=== PATIENT | female | born 1935 | race Two or more races ===

== ENCOUNTER 2017-01-07 07:17 | Observation (INO) | payer MEDICARE, OTHER ==
[2017-01-07 07:41] LABS: Glucose,Whole Blood 94 mg/dL (75-99)
--- NOTE | 2017-01-07 07:47 | ED ---
General Adult HPI - General Chief complaint: Nausea/Vomiting/Diarrhea Stated complaint: Nausea/vomiting Time Seen by Provider: 01/07/17 07:25 Source: patient, family, EMS, RN notes reviewed Mode of arrival: EMS Limitations: no limitations - History of Present Illness Initial comments: This is an 81-year-old female presents emergency Department complaining that she can't swallow for the last 2 days per patient also believes her sugar was low this morning. Patient states it was 69 and she was very sweaty when it was 69. Patient states he never gets under 130. Patient states she ate a banana but because she can't swallow anything and eventually came back up. Patient states she's had this problem in the past but for the last 2 days she cannot eat any food without it coming back up. Patient denies any chest pain or palpitations per patient denies any shortness of breath or difficulty breathing. Patient denies any abdominal pain patient denies any diarrhea. Patient denies any recent fever chills or cough. Patient states she is unable to swallow her saliva. Patient states the pills up and eventually she throws it up - Related Data Home Medications Medication Instructions Recorded Confirmed Benazepril HCl 20 mg PO BID 11/05/13 02/18/16 Clopidogrel Bisulfate [Plavix] 75 mg PO DAILY 11/05/13 02/18/16 Metoprolol Tartrate [Lopressor] 25 mg PO BID 11/05/13 02/18/16 glyBURIDE [Diabeta] 10 mg PO BID-W/MEALS 11/05/13 02/18/16 Levothyroxine Sodium [Synthroid] 100 mcg PO DAILY 11/28/14 02/18/16 Cholecalciferol [Vitamin D3] 2,000 unit PO DAILY 02/05/15 02/18/16 Omeprazole [PriLOSEC] 20 mg PO DAILY 09/06/15 02/18/16 Atorvastatin Calcium [Lipitor] 40 mg PO HS 02/18/16 02/18/16 Cranberry Fruit Extract [Cranberry] 500 mg PO DAILY 02/18/16 02/18/16 Latanoprost [Xalatan 0.005%] 1 drop BOTH EYES HS 02/18/16 02/18/16 Pioglitazone HCl [Actos] 15 mg PO DAILY 02/18/16 02/18/16 amLODIPine BESYLATE [Norvasc] 5 mg PO BID 02/18/16 02/18/16 Previous Rx's Medication Instructions Recorded Prazosin [Minipress] 1 mg PO BID #60 capsule 02/20/16 metFORMIN HCL 1,000 mg PO BID #60 tab 02/20/16 Allergies Allergy/AdvReac Type Severity Reaction Status Date / Time aspirin Allergy Rash/Hives Verified 01/07/17 07:26 Iodinated Contrast Media - Allergy Rash/Hives Verified 01/07/17 07:26 Oral and [Iodinated Contrast Media - IV Dye] Iodine and Iodide Containing Allergy Rash/Hives Verified 01/07/17 07:26 Produc shellfish derived [Shellfish] Allergy Rash/Hives Verified 01/07/17 07:26 Review of Systems ROS Statement: Those systems with pertinent positive or pertinent negative responses have been documented in the HPI. ROS Other: All systems not noted in ROS Statement are negative. Past Medical History Past Medical History: Coronary Artery Disease (CAD), Chest Pain / Angina, CVA/ TIA, Diabetes Mellitus, Hyperlipidemia, Hypertension, Thyroid Disorder Additional Past Medical History / Comment(s): Earlier today her R arm felt numb but is no longer. 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 History of Any Multi-Drug Resistant Organisms: None Reported Past Surgical History: Bladder Surgery, Cholecystectomy, Coronary Bypass/CABG, Heart Catheterization, Hysterectomy Additional Past Surgical History / Comment(s): CABG-2007, Ccath 2007, multiple EGDs with biopsies-last one done 12/2014, COLONOSCOPY. BILAT CATRACTS REMOVED, open cholecystectomy, D&C, bladder suspension Past Anesthesia/Blood Transfusion Reactions: Motion Sickness, Postoperative Nausea & Vomiting (PONV) Past Psychological History: No Psychological Hx Reported Smoking Status: Never smoker Past Alcohol Use History: None Reported Past Drug Use History: None Reported - Past Family History Father Family Medical History: Unable to Obtain Mother Family Medical History: Unable to Obtain Daughter(s) Family Medical History: Cancer General Exam - General Exam Comments Initial Comments: GENERAL: Patient is well-developed and well-nourished. Patient is nontoxic and well- hydrated and is in no acute distress. ENT: Neck is soft and supple. No significant lymphadenopathy is noted. Oropharynx is clear. Moist mucous membranes. Neck has full range of motion without eliciting any pain. EYES: The sclera were anicteric and conjunctiva were pink and moist. Extraocular movements were intact and pupils were equal round and reactive to light. Eyelids were unremarkable. PULMONARY: Unlabored respirations. Good breath sounds bilaterally. No audible rales rhonchi or wheezing was noted. CARDIOVASCULAR: There is a regular rate and rhythm without any murmurs gallops or rubs. ABDOMEN: Soft and nontender with normal bowel sounds. No palpable organomegaly was noted. There is no palpable pulsatile mass. SKIN: Skin is clear with no lesions or rashes and otherwise unremarkable. NEUROLOGIC: Patient is alert and oriented x3. Cranial nerves II through XII are grossly intact. Motor and sensory are also intact. Normal speech, volume and content. Symmetrical smile. MUSCULOSKELETAL: Normal extremities with adequate strength and full range of motion. LYMPHATICS: No significant lymphadenopathy is noted PSYCHIATRIC: Normal psychiatric evaluation. Normal interpersonal interactions appears functionally intact in deals appropriately with others. No signs of depression. Limitations: no limitations Course Vital Signs 01/07/17 01/07/17 01/07/17 07:24 08:00 08:55 Temperature 98.0 F Pulse Rate 72 77 64 Respiratory 20 20 18 Rate Blood Pressure 201/77 175/72 179/77 O2 Sat by Pulse 96 97 99 Oximetry Medical Decision Making - Medical Decision Making EKG shows sinus rhythm at 76 bpm [place] interval is 164 QRS is 102 QT interval 412 QTC is 463. Patient has inverted T waves in leads 1 and aVL which were not seen on previous EKG. I spoke with Dr. Miramontes and he agreed to do an endoscopy and the patient but would take also admitted the patient I spoke Dr. Sadler he accepted the patient. - Lab Data Result diagrams: 01/07/17 07:30 01/07/17 07:30 Lab Results 01/07/17 01/07/17 01/07/17 Range/Units 07:30 07:30 07:30 WBC 6.5 (3.8-10.6) k/uL RBC 3.57 L (3.80-5.40) m/uL Hgb 10.8 L (11.4-16.0) gm/dL Hct 31.1 L (34.0-46.0) % MCV 87.2 (80.0-100.0) fL MCH 30.4 (25.0-35.0) pg MCHC 34.8 (31.0-37.0) g/dL RDW 14.0 (11.5-15.5) % Plt Count 195 (150-450) k/uL Neutrophils % 80 % Lymphocytes % 12 % Monocytes % 5 % Eosinophils % 1 % Basophils % 0 % Neutrophils # 5.2 (1.3-7.7) k/uL Lymphocytes # 0.8 L (1.0-4.8) k/uL Monocytes # 0.3 (0-1.0) k/uL Eosinophils # 0.1 (0-0.7) k/uL Basophils # 0.0 (0-0.2) k/uL PT (9.0-12.0) sec INR (<1.1) APTT (22.0-30.0) sec Sodium (137-145) mmol/L Potassium (3.5-5.1) mmol/L Chloride (98-107) mmol/L Carbon Dioxide (22-30) mmol/L Anion Gap mmol/L BUN (7-17) mg/dL Creatinine (0.52-1.04) mg/dL Est GFR (MDRD) Af Amer (>60 ml/min/1.73 sqM) Est GFR (MDRD) Non-Af (>60 ml/min/1.73 sqM) Glucose (74-99) mg/dL POC Glucose (mg/dL) 94 (75-99) mg/dL POC Glu Resist Coater Developer ID Ward Diallo Calcium (8.4-10.2) mg/dL Magnesium (1.6-2.3) mg/dL Total Bilirubin (0.2-1.3) mg/dL AST (14-36) U/L ALT (9-52) U/L Alkaline Phosphatase (38-126) U/L Total Creatine Kinase 195 H (30-135) U/L CK-MB (CK-2) 3.6 H* (0.0-2.4) ng/mL CK-MB (CK-2) Rel Index 1.8 Troponin I <0.012 (0.000-0.034) ng/mL Total Protein (6.3-8.2) g/dL Albumin (3.5-5.0) g/dL 01/07/17 01/07/17 Range/Units 07:30 07:30 WBC (3.8-10.6) k/uL RBC (3.80-5.40) m/uL Hgb (11.4-16.0) gm/dL Hct (34.0-46.0) % MCV (80.0-100.0) fL MCH (25.0-35.0) pg MCHC (31.0-37.0) g/dL RDW (11.5-15.5) % Plt Count (150-450) k/uL Neutrophils % % Lymphocytes % % Monocytes % % Eosinophils % % Basophils % % Neutrophils # (1.3-7.7) k/uL Lymphocytes # (1.0-4.8) k/uL Monocytes # (0-1.0) k/uL Eosinophils # (0-0.7) k/uL Basophils # (0-0.2) k/uL PT 11.9 (9.0-12.0) sec INR 1.2 (<1.1) APTT 22.5 (22.0-30.0) sec Sodium 147 H (137-145) mmol/L Potassium 4.2 (3.5-5.1) mmol/L Chloride 114 H (98-107) mmol/L Carbon Dioxide 20 L (22-30) mmol/L Anion Gap 13 mmol/L BUN 28 H (7-17) mg/dL Creatinine 1.10 H (0.52-1.04) mg/dL Est GFR (MDRD) Af Amer 58 (>60 ml/min/1.73 sqM) Est GFR (MDRD) Non-Af 48 (>60 ml/min/1.73 sqM) Glucose 90 (74-99) mg/dL POC Glucose (mg/dL) (75-99) mg/dL POC Glu Resist Coater Developer ID Calcium 9.0 (8.4-10.2) mg/dL Magnesium 1.2 L (1.6-2.3) mg/dL Total Bilirubin 0.7 (0.2-1.3) mg/dL AST 28 (14-36) U/L ALT 30 (9-52) U/L Alkaline Phosphatase 75 (38-126) U/L Total Creatine Kinase (30-135) U/L CK-MB (CK-2) (0.0-2.4) ng/mL CK-MB (CK-2) Rel Index Troponin I (0.000-0.034) ng/mL Total Protein 7.0 (6.3-8.2) g/dL Albumin 4.1 (3.5-5.0) g/dL Disposition Clinical Impression: Dysphagia Disposition: ADMITTED IP TO THIS HOSP Referrals: Esvin Ramirez DO [Primary Care Provider] - 1-2 days Time of Disposition: 09:53
[2017-01-07 08:07] LABS: Basophils % (A) 0 %; CH 29.6; CHCM 34.1; Eosinophils # (A) 0.1 k/uL (0-0.7); Eosinophils % (A) 1 %; HCT 31.1 % (34.0-46.0); HDW 2.81; HGB 10.8 gm/dL (11.4-16.0); Luc # (Auto) 0.11; Luc % (Auto) 2; Lymphocytes # (A) 0.8 k/uL (1.0-4.8); Lymphocytes % (A) 12 %; MCH 30.4 pg (25.0-35.0); MCHC 34.8 g/dL (31.0-37.0); MCV 87.2 fL (80.0-100.0); Monocytes # (A) 0.3 k/uL (0-1.0); Monocytes % (A) 5 %; Neutrophils # (A) 5.2 k/uL (1.3-7.7); Neutrophils % (A) 80 %; RBC 3.57 m/uL (3.80-5.40); WBC 6.5 k/uL (3.8-10.6); WBC (Perox) 6.15
[2017-01-07] MEDS ORDERED: SODIUM CHLORIDE 0.9% 500 ML IV ONE (08:08)
[2017-01-07 08:14] LABS: INR 1.2 (<1.1); Partial Thromboplastin Time 22.5 sec (22.0-30.0); Prothrombin Time 11.9 sec (9.0-12.0)
--- NOTE | 2017-01-07 08:21 | XR ---
EXAMINATION TYPE: XR chest 2V DATE OF EXAM: 01/07/2017 COMPARISON: NONE INDICATION: Chest pain TECHNIQUE: Frontal and lateral views of the chest are obtained. FINDINGS: The heart size is normal. The pulmonary vasculature is normal. The lungs are clear. Sternotomy wires are present from previous CABG. IMPRESSION: 1. No acute pulmonary process.
[2017-01-07 08:37] LABS: Creatine Kinase 195 U/L (30-135)
[2017-01-07 08:39] LABS: Magnesium 1.2 mg/dL (1.6-2.3); Potassium 4.2 mmol/L (3.5-5.1); Total Bilirubin 0.7 mg/dL (0.2-1.3)
[2017-01-07 08:49] LABS: Troponin I <0.012 ng/mL (0.000-0.034)
[2017-01-07 08:59] LABS: Creatine Kinase MB 3.6 ng/mL (0.0-2.4)
[2017-01-07] MEDS ORDERED: SODIUM CHLORIDE 0.9% 1,000 ML IV ONE (09:53)
[2017-01-07] MEDS ORDERED: ETOMIDATE 2 MG/ML 10 ML VIAL ONE (10:26)
[2017-01-07] MEDS ORDERED: LIDOCAINE 1% INJ 10MG/ML (20 ML MDV) ONE (10:26)
[2017-01-07] MEDS ORDERED: IV FLUID CONTINUATION 900 ML IV ONE (11:26)
--- NOTE | 2017-01-07 11:53 | P.CONS ---
History of Present Illness - Reason for Consult Consult date: 01/07/17 - History of Present Illness The patient is an 81-year-old female presents emergency Department complaining that she can't swallow for the last 2 days per patient also believes her sugar was low this morning. Patient states it was 69 and she was very sweaty when it was 69. Patient states he never gets under 130. Patient states she ate a banana but because she can't swallow anything and eventually came back up. Patient states she's had this problem in the past but for the last 2 days she cannot eat any food without it coming back up. Patient denies any chest pain or palpitations per patient denies any shortness of breath or difficulty breathing. Patient denies any abdominal pain patient denies any diarrhea. Patient denies any recent fever chills or cough. Patient states she is unable to swallow her saliva. Patient states the pills up and eventually she throws it up Past Medical History Past Medical History: Coronary Artery Disease (CAD), Chest Pain / Angina, CVA/ TIA, Diabetes Mellitus, Hyperlipidemia, Hypertension, Thyroid Disorder Additional Past Medical History / Comment(s): Earlier today her R arm felt numb but is no longer. 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 History of Any Multi-Drug Resistant Organisms: None Reported Past Surgical History: Bladder Surgery, Cholecystectomy, Coronary Bypass/CABG, Heart Catheterization, Hysterectomy Additional Past Surgical History / Comment(s): CABG-2007, Ccath 2007, multiple EGDs with biopsies-last one done 12/2014, COLONOSCOPY. BILAT CATRACTS REMOVED, open cholecystectomy, D&C, bladder suspension Past Anesthesia/Blood Transfusion Reactions: Motion Sickness, Postoperative Nausea & Vomiting (PONV) Past Psychological History: No Psychological Hx Reported Smoking Status: Never smoker Past Alcohol Use History: None Reported Past Drug Use History: None Reported - Past Family History Father Family Medical History: Unable to Obtain Mother Family Medical History: Unable to Obtain Daughter(s) Family Medical History: Cancer Medications and Allergies Home Medications Medication Instructions Recorded Confirmed Type Benazepril HCl 20 mg PO DAILY 11/05/13 01/07/17 History Clopidogrel Bisulfate [Plavix] 75 mg PO DAILY 11/05/13 01/07/17 History glyBURIDE [Diabeta] 5 mg PO DAILY 11/05/13 01/07/17 History Cholecalciferol [Vitamin D3] 2,000 unit PO DAILY 02/05/15 01/07/17 History Omeprazole [PriLOSEC] 20 mg PO DAILY 09/06/15 01/07/17 History Atorvastatin Calcium [Lipitor] 40 mg PO HS 02/18/16 01/07/17 History Cranberry Fruit Extract [Cranberry] 500 mg PO DAILY 02/18/16 01/07/17 History Latanoprost [Xalatan 0.005%] 1 drop BOTH EYES HS 02/18/16 01/07/17 History amLODIPine BESYLATE [Norvasc] 5 mg PO BID 02/18/16 01/07/17 History HYDROcodone/APAP 5-325MG [[place] 1 tab PO Q6HR PRN 01/07/17 01/07/17 History 5-325] Levothyroxine Sodium [Synthroid] 50 mcg PO DAILY 01/07/17 01/07/17 History Loratadine [Claritin] 10 mg PO DAILY 01/07/17 01/07/17 History Meclizine HCl 12.5 mg PO Q8H PRN 01/07/17 01/07/17 History Allergies Allergy/AdvReac Type Severity Reaction Status Date / Time aspirin Allergy Rash/Hives Verified 01/07/17 10:22 Iodinated Contrast Media - Allergy Rash/Hives Verified 01/07/17 10:22 Oral and [Iodinated Contrast Media - IV Dye] Iodine and Iodide Containing Allergy Rash/Hives Verified 01/07/17 10:22 Produc shellfish derived [Shellfish] Allergy Rash/Hives Verified 01/07/17 10:22 Physical Exam Vitals: Vital Signs Temp Pulse Resp BP Pulse Ox 01/07/17 10:00 98.1 F 66 18 162/69 99 01/07/17 08:55 64 18 179/77 99 01/07/17 08:00 77 20 175/72 97 01/07/17 07:24 98.0 F 72 20 201/77 96 Intake and Output 01/06/17 01/07/17 01/07/17 22:59 06:59 14:59 Other: Weight 70.307 kg Patient Weight 01/08/17 06:59 Weight 70.307 kg Results CBC & Chem 7: 01/07/17 07:30 01/07/17 07:30 Labs: Abnormal Lab Results - Last 24 Hours (Table) 01/07/17 01/07/17 01/07/17 Range/Units 07:30 07:30 07:30 RBC 3.57 L (3.80-5.40) m/uL Hgb 10.8 L (11.4-16.0) gm/dL Hct 31.1 L (34.0-46.0) % Lymphocytes # 0.8 L (1.0-4.8) k/uL Sodium 147 H (137-145) mmol/L Chloride 114 H (98-107) mmol/L Carbon Dioxide 20 L (22-30) mmol/L BUN 28 H (7-17) mg/dL Creatinine 1.10 H (0.52-1.04) mg/dL Magnesium 1.2 L (1.6-2.3) mg/dL Total Creatine Kinase 195 H (30-135) U/L CK-MB (CK-2) 3.6 H* (0.0-2.4) ng/mL Assessment and Plan Plan: Obstructive dysphagia likely on the basis of impacted food. Will proceed with EGD for foreign body removal today.
--- NOTE | 2017-01-07 12:07 | P.PCN ---
Date of Procedure: 01/07/17 Preoperative Diagnosis: Postoperative Diagnosis: Procedure(s) Performed: Procedure: Esophagogastroduodenoscopy and removal of esophageal foreign body. Preoperative diagnosis: Obstructive dysphagia. Postoperative diagnosis: 1. Impacted piece of meat in the distal esophagus captured with the snare before spontaneously advancing into the stomach. 2. Ivett esophagitis. 3. Hiatal hernia and benign esophageal stricture not restricting the advancement of the endoscope. 4. Normal stomach and duodenum. Preparation and sedation: Was provided by anesthesia. Brief clinical history: The patient is an 81-year-old female who presented this morning to the emergency Department complaining that she can't swallow for the last 2 days. Patient states she ate a banana but because she can't swallow anything and eventually came back up. Patient states she's had this problem in the past but for the last 2 days she cannot eat any food without it coming back up. Patient denies any chest pain or palpitations per patient denies any shortness of breath or difficulty breathing. Patient denies any recent fever chills or cough. Patient states she is unable to swallow her saliva which builds up and eventually she throws it up. The details are summarized in the history and physical and dictated consultation. This procedure is intended to assess for a cause of her obstruction. Procedure: With the patient on her left lateral decubitus position and after informed consent and adequate sedation, I passed the Olympus-GIF 160 video upper endoscope through the cricopharyngeus down the esophagus. There were secretions and food debris in the esophagus which were suctioned then the impacted piece of meat was seen in the distal esophagus. There was small white sticky exudates scattered on the esophageal wall consistent with Ivett esophagitis. I used the snare to capture the impacted piece of meat and mobilize it and I tried to remove it by withdrawing the endoscope, however, in the process it broke off and it eventually dropped into the stomach by gentle advancement of the endoscope. GE junction was around 35 cm from the incisors and there was a 2-3 cm hiatal hernia. There was a benign-appearing esophageal stricture at the level of the GE junction that did not impede the advancement of the endoscope. The stomach was insufflated with air and inspected in detail including the retroflex view in the cardia. Finally, the endoscope was passed through the pylorus into the duodenum. Pyloric channel, duodenal bulb, post bulbar area and descending duodenum appeared within normal limits. No biopsies were obtained and I did not perform any dilation as this procedure was done on an emergent basis and the patient has been on Plavix which has not been discontinued. The patient tolerated the procedure well. Plan: The patient was reassured and I discussed with her in detail. Will allow regular diet today and she can be followed up as outpatient for consideration of elective upper endoscopy and dilation in the future, if she has symptoms, after stopping the Plavix for 5 days. Implants: Indications for Procedure: Operative Findings: Description of Procedure:
[2017-01-07] MEDS ORDERED: HYDROcodone/APAP 5-325MG 1 EACH TAB PO PRN (12:22)
[2017-01-07] MEDS ORDERED: MECLIZINE 12.5 MG TAB PO PRN (12:22)
[2017-01-07 12:27] LABS: Glucose,Whole Blood 72 mg/dL (75-99)
[2017-01-07] MEDS ORDERED: NON-FORMULARY DRUG (Cranberry Fruit Extract [Cranberry] 500 MG) PO SCH (12:30)
[2017-01-07] MEDS: LORATADINE 10 MG TAB PO SCH (13:37)
[2017-01-07] MEDS: CHOLECALCIFEROL 1,000 UNIT TAB PO SCH (13:37)
[2017-01-07] MEDS: PANTOPRAZOLE 40 MG TABLET PO SCH (13:37)
[2017-01-07] MEDS: glipiZIDE 10 MG TAB PO SCH (13:37)
[2017-01-07] MEDS: CLOPIDOGREL 75 MG TAB PO SCH (13:37)
[2017-01-07] MEDS: MAGNESIUM SULFATE-D5W PMX 1 GM in DEXTROSE/WATER 1 100ML.BAG IVPB SCH ×2 (13:38→14:40)
[2017-01-07] MEDS: amLODIPine 5 MG TAB PO SCH ×2 (13:38→20:26)
[2017-01-07] MEDS: LISINOPRIL 20 MG TAB PO SCH (13:38)
[2017-01-07 17:02] LABS: Glucose,Whole Blood 149 mg/dL (75-99)
[2017-01-07] MEDS: metFORMIN 500 MG TAB PO SCH (17:26)
[2017-01-07 20:54] LABS: Glucose,Whole Blood 167 mg/dL (75-99)
[2017-01-07] MEDS ORDERED: LATANOPROST 0.005% OPHTH DROPS 2.5 ML BTL BOTH EYES SCH (21:00)
[2017-01-07] MEDS ORDERED: ATORVASTATIN 40 MG TAB PO SCH (21:00)
[2017-01-07] MEDS ORDERED: ACETAMINOPHEN TAB 325 MG TAB PO PRN (22:25)
[2017-01-08] MEDS ORDERED: LEVOTHYROXINE 50 MCG TAB PO SCH (06:30)
[2017-01-08 07:09] LABS: Glucose,Whole Blood 148 mg/dL (75-99)
[2017-01-08 07:37] VITALS: RESP 16
[2017-01-08] MEDS: metFORMIN 500 MG TAB PO SCH (08:07)
[2017-01-08] MEDS: glipiZIDE 10 MG TAB PO SCH (08:08)
[2017-01-08] MEDS: PANTOPRAZOLE 40 MG TABLET PO SCH (08:08)
[2017-01-08] MEDS: LORATADINE 10 MG TAB PO SCH (08:08)
[2017-01-08] MEDS: amLODIPine 5 MG TAB PO SCH (08:08)
[2017-01-08] MEDS: CLOPIDOGREL 75 MG TAB PO SCH (08:08)
[2017-01-08] MEDS: LISINOPRIL 20 MG TAB PO SCH (08:08)
[2017-01-08] MEDS: CHOLECALCIFEROL 1,000 UNIT TAB PO SCH (08:08)
[2017-01-08 11:34] VITALS: BP 122/58; PULSE 58; TEMP 98.2
[2017-01-08 11:57] LABS: Glucose,Whole Blood 199 mg/dL (75-99)
--- NOTE | 2017-01-08 14:46 | P.HPIM ---
History of Present Illness The patient is an 81-year-old female presents emergency Department complaining that she can't swallow for the last 2 days per patient also believes her sugar was low this morning. Patient states it was 69 and she was very sweaty when it was 69. Patient states he never gets under 130. Patient states she ate a banana but because she can't swallow anything and eventually came back up. Patient states she's had this problem in the past but for the last 2 days she cannot eat any food without it coming back up. Patient denies any chest pain or palpitations per patient denies any shortness of breath or difficulty breathing. Patient denies any abdominal pain patient denies any diarrhea. Patient denies any recent fever chills or cough. Patient states she is unable to swallow her saliva. Patient states the pills up and eventually she throws it up Patient underwent upper GI endoscopy found to have a piece of meat stuck in his esophagus which was removed, patient had a hiatal hernia with esophagitis and candidal esophagitis and patient will be discharged on the week of flucanazole. Review of Systems REVIEW OF SYSTEMS: CONSTITUTIONAL: No fever, no malaise, no fatigue. HEENT: No recent visual problems or hearing problems. Denied any sore throat. CARDIOVASCULAR: No chest pain, orthopnea, PND, no palpitations, no syncope. PULMONARY: No shortness of breath, no cough, no hemoptysis. GASTROINTESTINAL: No diarrhea, no abdominal pain. Normoactive bowel sounds. NEUROLOGICAL: No headaches, no weakness, no numbness. HEMATOLOGICAL: Denies any bleeding or petechiae. GENITOURINARY: Denies any burning micturition, frequency, or urgency. MUSCULOSKELETAL/RHEUMATOLOGICAL: Denies any joint pain, swelling, or any muscle pain. ENDOCRINE: Denies any polyuria or polydipsia. The rest of the 14-point review of systems is negative. Past Medical History Past Medical History: Coronary Artery Disease (CAD), Chest Pain / Angina, CVA/ TIA, Diabetes Mellitus, Hyperlipidemia, Hypertension, Thyroid Disorder Additional Past Medical History / Comment(s): Earlier today her R arm felt numb but is no longer. 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 History of Any Multi-Drug Resistant Organisms: None Reported Past Surgical History: Bladder Surgery, Cholecystectomy, Coronary Bypass/CABG, Heart Catheterization, Hysterectomy Additional Past Surgical History / Comment(s): CABG-2007, Ccath 2007, multiple EGDs with biopsies-last one done 12/2014, COLONOSCOPY. BILAT CATRACTS REMOVED, open cholecystectomy, D&C, bladder suspension Past Anesthesia/Blood Transfusion Reactions: Motion Sickness, Postoperative Nausea & Vomiting (PONV) Past Psychological History: No Psychological Hx Reported Smoking Status: Never smoker Past Alcohol Use History: None Reported Past Drug Use History: None Reported - Past Family History Father Family Medical History: Unable to Obtain Mother Family Medical History: Unable to Obtain Daughter(s) Family Medical History: Cancer Medications and Allergies Home Medications Medication Instructions Recorded Confirmed Type Benazepril HCl 20 mg PO DAILY 11/05/13 01/07/17 History Clopidogrel Bisulfate [Plavix] 75 mg PO DAILY 11/05/13 01/07/17 History glyBURIDE [Diabeta] 5 mg PO DAILY 11/05/13 01/07/17 History Cholecalciferol [Vitamin D3] 2,000 unit PO DAILY 02/05/15 01/07/17 History Omeprazole [PriLOSEC] 40 mg PO DAILY 09/06/15 01/08/17 History Atorvastatin Calcium [Lipitor] 40 mg PO HS 02/18/16 01/07/17 History Cranberry Fruit Extract [Cranberry] 500 mg PO DAILY 02/18/16 01/07/17 History Latanoprost [Xalatan 0.005%] 1 drop BOTH EYES HS 02/18/16 01/07/17 History amLODIPine BESYLATE [Norvasc] 5 mg PO BID 02/18/16 01/07/17 History HYDROcodone/APAP 5-325MG [[place] 1 tab PO Q6HR PRN 01/07/17 01/07/17 History 5-325] Levothyroxine Sodium [Synthroid] 50 mcg PO DAILY 01/07/17 01/07/17 History Loratadine [Claritin] 10 mg PO DAILY 01/07/17 01/07/17 History Meclizine HCl 12.5 mg PO Q8H PRN 01/07/17 01/07/17 History Allergies Allergy/AdvReac Type Severity Reaction Status Date / Time aspirin Allergy Rash/Hives Verified 01/07/17 10:22 Iodinated Contrast Media - Allergy Rash/Hives Verified 01/07/17 10:22 Oral and [Iodinated Contrast Media - IV Dye] Iodine and Iodide Containing Allergy Rash/Hives Verified 01/07/17 10:22 Produc shellfish derived [Shellfish] Allergy Rash/Hives Verified 01/07/17 10:22 Physical Exam Vitals: Vital Signs Temp Pulse Resp BP Pulse Ox 01/08/17 11:33 98.2 F 58 L 16 122/58 97 01/08/17 08:00 16 01/08/17 07:36 98 F 66 16 178/77 100 01/08/17 04:00 18 01/08/17 03:52 97.8 F 59 L 18 162/67 97 01/08/17 00:00 16 01/07/17 20:00 98.0 F 71 16 160/70 97 01/07/17 16:00 16 Intake and Output 01/07/17 01/08/17 01/08/17 22:59 06:59 14:59 Intake Total 236 Balance 236 Intake: Oral 236 Other: # Voids 1 PHYSICAL EXAMINATION: GENERAL: The patient is alert and oriented x3, not in any acute distress. Well developed, well nourished. HEENT: Pupils are round and equally reacting to light. EOMI. No scleral icterus. No conjunctival pallor. Normocephalic, atraumatic. No pharyngeal erythema. No thyromegaly. CARDIOVASCULAR: S1 and S2 present. No murmurs, rubs, or gallops. PULMONARY: Chest is clear to auscultation, no wheezing or crackles. ABDOMEN: Soft, nontender, nondistended, normoactive bowel sounds. No palpable organomegaly. MUSCULOSKELETAL: No joint swelling or deformity. EXTREMITIES: No cyanosis, clubbing, or pedal edema. NEUROLOGICAL: Gross neurological examination did not reveal any focal deficits. SKIN: No rashes. Results CBC & Chem 7: 01/07/17 07:30 01/07/17 07:30 Labs: Abnormal Lab Results - Last 24 Hours (Table) 01/07/17 01/07/1701/08/17 Range/Units 17:00 20:51 06:51 POC Glucose (mg/dL) 149 H 167 H 148 H (75-99) mg/dL 01/08/17 Range/Units 11:54 POC Glucose (mg/dL) 199 H (75-99) mg/dL Thrombosis Risk Factor Assmnt - Choose All That Apply Each Risk Factor Represents 3 Points: Age 75 years or older Thrombosis Risk Factor Assessment Total Risk Factor Score: 3 Thrombosis Risk Factor Assessment Level: Moderate Risk Assessment and Plan Plan: #1 dysphagia: Due to retained food as mentioned above, which resolved after upper GI endoscopy patient also has candidal esophagitis and hiatal hernia. #2 type 2 diabetes mellitus: Continue with home medications for the titration of oral hypertensive medications as an outpatient #3 coronary artery disease #4 Gastro-esophageal reflux disease #5 hypertension For above-mentioned other chronic medical problems patient will be continued on her home medications and patient Jonathan today.
--- NOTE | 2017-01-08 14:47 | P.DS ---
Providers Date of admission: 01/07/17 09:53 Attending physician: Uche Sadler Consults: 01/07/17 09:53 Consult Physician Stat Consulting Provider: Jevon Zavaleta Reason/Comments: Dysphagia Do you want consulting provider notified?: Already Contacted Primary care physician: [facility] Course: Refer to HPI Plan - Discharge Summary New Discharge Prescriptions: New Fluconazole [Diflucan] 100 mg PO DAILY #7 tab No Action Benazepril HCl 20 mg PO DAILY Clopidogrel Bisulfate [Plavix] 75 mg PO DAILY glyBURIDE [Diabeta] 5 mg PO DAILY Cholecalciferol [Vitamin D3] 2,000 unit PO DAILY Omeprazole [PriLOSEC] 40 mg PO DAILY Latanoprost [Xalatan 0.005%] 1 drop BOTH EYES HS amLODIPine BESYLATE [Norvasc] 5 mg PO BID Atorvastatin Calcium [Lipitor] 40 mg PO HS Cranberry Fruit Extract [Cranberry] 500 mg PO DAILY metFORMIN HCL 1,000 mg PO BID #60 tab Loratadine [Claritin] 10 mg PO DAILY Levothyroxine Sodium [Synthroid] 50 mcg PO DAILY Meclizine HCl 12.5 mg PO Q8H PRN PRN Reason: Vertigo HYDROcodone/APAP 5-325MG [[place] 5-325] 1 tab PO Q6HR PRN PRN Reason: Pain Discharge Medication List Benazepril HCl 20 mg PO DAILY 11/05/13 [History] Clopidogrel Bisulfate [Plavix] 75 mg PO DAILY 11/05/13 [History] glyBURIDE [Diabeta] 5 mg PO DAILY 11/05/13 [History] Cholecalciferol [Vitamin D3] 2,000 unit PO DAILY 02/05/15 [History] Omeprazole [PriLOSEC] 40 mg PO DAILY 09/06/15 [History] Atorvastatin Calcium [Lipitor] 40 mg PO HS 02/18/16 [History] Cranberry Fruit Extract [Cranberry] 500 mg PO DAILY 02/18/16 [History] Latanoprost [Xalatan 0.005%] 1 drop BOTH EYES HS 02/18/16 [History] amLODIPine BESYLATE [Norvasc] 5 mg PO BID 02/18/16 [History] metFORMIN HCL 1,000 mg PO BID #60 tab 02/20/16 [Rx] HYDROcodone/APAP 5-325MG [[place] 5-325] 1 tab PO Q6HR PRN 01/07/17 [History] Levothyroxine Sodium [Synthroid] 50 mcg PO DAILY 01/07/17 [History] Loratadine [Claritin] 10 mg PO DAILY 01/07/17 [History] Meclizine HCl 12.5 mg PO Q8H PRN 01/07/17 [History] Fluconazole [Diflucan] 100 mg PO DAILY #7 tab 01/08/17 [Rx] Follow up Appointment(s)/Referral(s): Jevon Zavaleta MD [STAFF PHYSICIAN] - 1 Week Esvin Ramirez DO [Primary Care Provider] - 3 Days Patient Instructions/Handouts: Esophageal Foreign Body (GEN), Chronic Dysphagia (DC) Discharge Disposition: HOME SELF-CARE
== END 2017-01-08 13:41 | disposition home or self-care (01) ==
LOC: EC 07:17 → 3OBS 09:53
PROVIDERS: ADMIT Internal Medicine; ATTEND Internal Medicine
DX: T18.128A Food in esophagus causing other injury, initial encounter (principal); Z79.899 Other long term (current) drug therapy; Z79.01 Long term (current) use of anticoagulants; Z79.84 Long term (current) use of oral hypoglycemic drugs; Z88.6 Allergy status to analgesic agent; Z88.3 Allergy status to other anti-infective agents; Z91.041 Radiographic dye allergy status; Z91.013 Allergy to seafood; I25.10 Atherosclerotic heart disease of native coronary artery without angina pectoris; E78.5 Hyperlipidemia, unspecified; I10 Essential (primary) hypertension; I69.354 Hemiplegia and hemiparesis following cerebral infarction affecting left non-dominant side; G89.4 Chronic pain syndrome; E03.9 Hypothyroidism, unspecified; Z95.1 Presence of aortocoronary bypass graft; B37.81 Candidal esophagitis; K44.9 Diaphragmatic hernia without obstruction or gangrene; K21.9 Gastro-esophageal reflux disease without esophagitis; E11.319 Type 2 diabetes mellitus with unspecified diabetic retinopathy without macular edema; E11.42 Type 2 diabetes mellitus with diabetic polyneuropathy; Z86.73 Personal history of transient ischemic attack (TIA), and cerebral infarction without residual deficits; H54.41 Blindness, right eye, normal vision left eye; K22.2 Esophageal obstruction; X58.XXXA Exposure to other specified factors, initial encounter
CPT/HCPCS: 96374; 99285; 36415; 93005; 80053; 82550; 82553; 83735; 84484; 85025; 85610; 85730; 71020; 43247; G0378 ×2; J2001; J3475

== ENCOUNTER 2017-02-06 12:42 | Observation (INO) | payer MEDICARE, OTHER ==
[2017-02-06 13:10] LABS: Glucose,Whole Blood 394 mg/dL (75-99)
[2017-02-06] MEDS ORDERED: MORPHINE SULFATE 2 MG/ML SYRINGE IVP STA (13:19)
[2017-02-06] MEDS ORDERED: SODIUM CHLORIDE 0.9% 500 ML IV STA (13:19)
[2017-02-06] MEDS ORDERED: SODIUM CHLORIDE 0.9% 1,000 ML IV STA (13:19)
[2017-02-06 13:46] LABS: Basophils % (A) 0 %; CH 29.9; CHCM 33.5; Eosinophils # (A) 0.1 k/uL (0-0.7); Eosinophils % (A) 1 %; HDW 2.63; HGB 9.7 gm/dL (11.4-16.0); Luc # (Auto) 0.07; Luc % (Auto) 1; Lymphocytes # (A) 0.7 k/uL (1.0-4.8); Lymphocytes % (A) 14 %; MCH 29.9 pg (25.0-35.0); MCHC 33.4 g/dL (31.0-37.0); MCV 89.5 fL (80.0-100.0); Mean Platelet Volume 8.3; Monocytes # (A) 0.3 k/uL (0-1.0); Monocytes % (A) 5 %; Neutrophils # (A) 3.8 k/uL (1.3-7.7); Neutrophils % (A) 78 %; RBC 3.24 m/uL (3.80-5.40); RDW 14.4 % (11.5-15.5); WBC 4.9 k/uL (3.8-10.6); WBC (Perox) 4.98
[2017-02-06 13:57] LABS: INR 1.2 (<1.2); Partial Thromboplastin Time 24.5 sec (22.0-30.0); Prothrombin Time 11.6 sec (9.0-12.0)
[2017-02-06 14:00] LABS: ALT 29 U/L (9-52); AST 19 U/L (14-36); Alkaline Phosphatase 66 U/L (38-126); Anion Gap 12 mmol/L; Blood Urea Nitrogen 22 mg/dL (7-17); Calcium 8.6 mg/dL (8.4-10.2); Carbon Dioxide 21 mmol/L (22-30); Chloride 107 mmol/L (98-107); Glucose 385 mg/dL (74-99); Magnesium 1.1 mg/dL (1.6-2.3); Non-African American GFR(MDRD) >60 (>60 ml/min/1.73 sqM); Potassium 4.7 mmol/L (3.5-5.1); Sodium 140 mmol/L (137-145); Total Bilirubin 0.3 mg/dL (0.2-1.3); Total Protein 6.3 g/dL (6.3-8.2)
--- NOTE | 2017-02-06 14:04 | ED ---
General Adult HPI - General Chief complaint: Recheck/Abnormal Lab/Rx Stated complaint: Diabetic Time Seen by Provider: 02/06/17 13:08 Source: patient, EMS Mode of arrival: EMS Limitations: no limitations - History of Present Illness Initial comments: 81 years old female has multiple complaints , graded about the high sugar her sugar was 425 today. She is also complaining about headache, blurred vision. She also had a chest pain around 11 AM today chest pain lasted for 1 hour. She denies any chest pain right now no shortness of breath no pleuritic chest pain. Denies any fever no chills no neck stiffness does have some abdominal cramps in the epigastric area. No nausea no vomiting no symptoms of TIA or CVA. - Related Data Home Medications Medication Instructions Recorded Confirmed Benazepril HCl 20 mg PO DAILY 11/05/13 02/06/17 Clopidogrel Bisulfate [Plavix] 75 mg PO DAILY 11/05/13 02/06/17 glyBURIDE [Diabeta] 5 mg PO DAILY 11/05/13 02/06/17 Cholecalciferol [Vitamin D3] 2,000 unit PO DAILY 02/05/15 02/06/17 Omeprazole [PriLOSEC] 40 mg PO DAILY 09/06/15 02/06/17 Atorvastatin Calcium [Lipitor] 40 mg PO HS 02/18/16 02/06/17 Cranberry Fruit Extract [Cranberry] 500 mg PO DAILY 02/18/16 02/06/17 Latanoprost [Xalatan 0.005%] 1 drop BOTH EYES HS 02/18/16 02/06/17 amLODIPine BESYLATE [Norvasc] 5 mg PO BID 02/18/16 02/06/17 HYDROcodone/APAP 5-325MG [[place] 1 tab PO Q6HR PRN 01/07/17 02/06/17 5-325] Levothyroxine Sodium [Synthroid] 50 mcg PO DAILY 01/07/17 02/06/17 Loratadine [Claritin] 10 mg PO DAILY 01/07/17 02/06/17 Meclizine HCl 12.5 mg PO Q8H PRN 01/07/17 02/06/17 Previous Rx's Medication Instructions Recorded Fluconazole [Diflucan] 100 mg PO DAILY #7 tab 01/08/17 Allergies Allergy/AdvReac Type Severity Reaction Status Date / Time aspirin Allergy Rash/Hives Verified 02/06/17 13:19 Iodinated Contrast- Oral and Allergy Rash/Hives Verified 02/06/17 13:19 IV Dye [Iodinated Contrast Media - IV Dye] Iodine and Iodide Containing Allergy Rash/Hives Verified 02/06/17 13:19 Produc shellfish derived [Shellfish] Allergy Rash/Hives Verified 02/06/17 13:19 Review of Systems ROS Statement: Those systems with pertinent positive or pertinent negative responses have been documented in the HPI. ROS Other: All systems not noted in ROS Statement are negative. Past Medical History Past Medical History: Coronary Artery Disease (CAD), Chest Pain / Angina, CVA/ TIA, Diabetes Mellitus, Hyperlipidemia, Hypertension, Thyroid Disorder Additional Past Medical History / Comment(s): Earlier today her R arm felt numb but is no longer. 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 History of Any Multi-Drug Resistant Organisms: None Reported Past Surgical History: Bladder Surgery, Cholecystectomy, Coronary Bypass/CABG, Heart Catheterization, Hysterectomy Additional Past Surgical History / Comment(s): CABG-2007, Ccath 2007, multiple EGDs with biopsies-last one done 12/2014, COLONOSCOPY. BILAT CATRACTS REMOVED, open cholecystectomy, D&C, bladder suspension Past Anesthesia/Blood Transfusion Reactions: Motion Sickness, Postoperative Nausea & Vomiting (PONV) Past Psychological History: No Psychological Hx Reported Smoking Status: Never smoker Past Alcohol Use History: None Reported Past Drug Use History: None Reported - Past Family History Father Family Medical History: Unable to Obtain Mother Family Medical History: Unable to Obtain Daughter(s) Family Medical History: Cancer General Exam - General Exam Comments Initial Comments: General: The patient is awake and alert, in no distress, and does not appear acutely ill. Skin: Skin is warm and dry and no rashes or lesions are noted. Eye: Pupils are equal, round and reactive to light, she kept her right eye closed Ears, nose, mouth and throat: There are moist mucous membranes and no oral lesions. Neck: The neck is supple, there is no tenderness or JVD. Cardiovascular: There is a regular rate and rhythm. No murmur, rub or gallop is appreciated. Respiratory: To auscultation bilateral, no wheezing no rhonchi no distress respiratory guerra noticed Gastrointestinal: Though she complained about abdominal pain exam is totally normal Back: There is no tenderness to palpation in the midline. There is no obvious deformity. Musculoskeletal: Normal ROM, no tenderness, There is no pedal edema. There is no calf tenderness or swelling. No cords were appreciated. Neurological: CN II-XII intact, Cranial nerves III through XII are intact. There are no obvious motor or sensory deficits. Coordination appears grossly intact. Speech is normal. Psychiatric: Cooperative, appropriate mood & affect, normal judgment. Limitations: no limitations Course Vital Signs 02/06/17 12:45 Temperature 98.2 F Pulse Rate 74 Respiratory 16 Rate Blood Pressure 153/67 O2 Sat by Pulse 97 Oximetry She was reassessed at 1500, she has no abdominal findings at all is soft nontender bowel sounds are positive no guarding no rebounds considering that and will hold off any CT of the abdomen, patient agreed Labs were reviewed, CBC, venous blood gases, comprehensive metabolic panel all within normal range with the exception of sugar being 385 and CO2 being 21 non- small metabolic acidosis EKG Findings - EKG Comments: EKG Findings:: Review of this EKG is normal sinus rhythm ventricular rate is 62 ME interval is 164 QRS duration is 100 QT/QTc is 440/446 QRS, T-wave inversion and slight ST depression in aVL no ST elevation or ST depression noticed the other leads Medical Decision Making - Lab Data Result diagrams: 02/06/17 13:01 02/06/17 13:01 Lab Results 02/06/17 02/06/17 02/06/17 Range/Units 12:55 13:01 13:01 WBC 4.9 (3.8-10.6) k/uL RBC 3.24 L (3.80-5.40) m/uL Hgb 9.7 L (11.4-16.0) gm/dL Hct 29.0 L (34.0-46.0) % MCV 89.5 (80.0-100.0) fL MCH 29.9 (25.0-35.0) pg MCHC 33.4 (31.0-37.0) g/dL RDW 14.4 (11.5-15.5) % Plt Count 187 (150-450) k/uL Neutrophils % 78 % Lymphocytes % 14 % Monocytes % 5 % Eosinophils % 1 % Basophils % 0 % Neutrophils # 3.8 (1.3-7.7) k/uL Lymphocytes # 0.7 L (1.0-4.8) k/uL Monocytes # 0.3 (0-1.0) k/uL Eosinophils # 0.1 (0-0.7) k/uL Basophils # 0.0 (0-0.2) k/uL PT (9.0-12.0) sec INR (<1.2) APTT (22.0-30.0) sec VBG pH (7.31-7.41) VBG pCO2 (37-51) mmHg VBG HCO3 (24-28) mmol/L Sodium (137-145) mmol/L Potassium (3.5-5.1) mmol/L Chloride (98-107) mmol/L Carbon Dioxide (22-30) mmol/L Anion Gap mmol/L BUN (7-17) mg/dL Creatinine (0.52-1.04) mg/dL Est GFR (MDRD) Af Amer (>60 ml/min/1.73 sqM) Est GFR (MDRD) Non-Af (>60 ml/min/1.73 sqM) Glucose (74-99) mg/dL POC Glucose (mg/dL) 394 H (75-99) mg/dL POC Glu Director Athletic ID Storm, Katie Calcium (8.4-10.2) mg/dL Magnesium (1.6-2.3) mg/dL Total Bilirubin (0.2-1.3) mg/dL AST (14-36) U/L ALT (9-52) U/L Alkaline Phosphatase (38-126) U/L Total Creatine Kinase 174 H (30-135) U/L CK-MB (CK-2) 2.8 H* (0.0-2.4) ng/mL CK-MB (CK-2) Rel Index 1.6 Troponin I <0.012 (0.000-0.034) ng/mL Total Protein (6.3-8.2) g/dL Albumin (3.5-5.0) g/dL 02/06/17 02/06/17 02/06/17 Range/Units 13:01 13:01 14:20 WBC (3.8-10.6) k/uL RBC (3.80-5.40) m/uL Hgb (11.4-16.0) gm/dL Hct (34.0-46.0) % MCV (80.0-100.0) fL MCH (25.0-35.0) pg MCHC (31.0-37.0) g/dL RDW (11.5-15.5) % Plt Count (150-450) k/uL Neutrophils % % Lymphocytes % % Monocytes % % Eosinophils % % Basophils % % Neutrophils # (1.3-7.7) k/uL Lymphocytes # (1.0-4.8) k/uL Monocytes # (0-1.0) k/uL Eosinophils # (0-0.7) k/uL Basophils # (0-0.2) k/uL PT 11.6 (9.0-12.0) sec INR 1.2 H (<1.2) APTT 24.5 (22.0-30.0) sec VBG pH 7.36 (7.31-7.41) VBG pCO2 39 (37-51) mmHg VBG HCO3 22 L (24-28) mmol/L Sodium 140 (137-145) mmol/L Potassium 4.7 (3.5-5.1) mmol/L Chloride 107 (98-107) mmol/L Carbon Dioxide 21 L (22-30) mmol/L Anion Gap 12 mmol/L BUN 22 H (7-17) mg/dL Creatinine 0.90 (0.52-1.04) mg/dL Est GFR (MDRD) Af Amer >60 (>60 ml/min/1.73 sqM) Est GFR (MDRD) Non-Af >60 (>60 ml/min/1.73 sqM) Glucose 385 H (74-99) mg/dL POC Glucose (mg/dL) (75-99) mg/dL POC Glu Director Athletic ID Calcium 8.6 (8.4-10.2) mg/dL Magnesium 1.1 L (1.6-2.3) mg/dL Total Bilirubin 0.3 (0.2-1.3) mg/dL AST 19 (14-36) U/L ALT 29 (9-52) U/L Alkaline Phosphatase 66 (38-126) U/L Total Creatine Kinase (30-135) U/L CK-MB (CK-2) (0.0-2.4) ng/mL CK-MB (CK-2) Rel Index Troponin I (0.000-0.034) ng/mL Total Protein 6.3 (6.3-8.2) g/dL Albumin 3.6 (3.5-5.0) g/dL Disposition Clinical Impression: Chest pain, Hyperglycemia, Metabolic acidosis, Headache, Blurred vision Disposition: ADMITTED IP TO THIS HOSP Condition: Good Referrals: Esvin Ramirez DO [Primary Care Provider] - 1-2 days
--- NOTE | 2017-02-06 14:07 | CT ---
EXAMINATION TYPE: CT brain wo con DATE OF EXAM: 02/06/2017 HISTORY: elevated blood sugar with headache. CT DLP: 920.3 mGycm. Automated Exposure Control for Dose Reduction was Utilized. TECHNIQUE: CT scan of the head is performed without contrast. COMPARISON: CT brain March 23, 2015. FINDINGS: There is no acute intracranial hemorrhage or midline shift identified. There is diffuse v entricular and sulcal prominence consistent with diffuse age-related cerebral atrophy. Bilateral basa l ganglia calcifications are present. 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 Scleral buccal in the left globe is again seen. Mild mucosal thickening in the ethm oid sinuses bilaterally is redemonstrated. IMPRESSION: No acute intracranial hemorrhage or midline shift. There is mild diffuse age-related ce rebral atrophy redemonstrated. No significant change from prior.
--- NOTE | 2017-02-06 14:08 | XR ---
EXAMINATION TYPE: XR chest 2V DATE OF EXAM: 02/06/2017 COMPARISON: Chest x-ray January 07, 2017 HISTORY: Chest pain and hyperglycemia. TECHNIQUE: Frontal and lateral views of the chest are obtained. FINDINGS: Post-CABG changes with mediastinal clips and sternal wires is present. There is chronic par enchymal change without suspicious focal air space opacity, pleural effusion, or pneumothorax seen. The cardiac silhouette size is stable and enlarged. The osseous structures are demineralized. Multi level spurring in the spine is present. IMPRESSION: Chronic changes and cardiomegaly without acute pulmonary process.
[2017-02-06 14:13] LABS: Creatine Kinase 174 U/L (30-135)
[2017-02-06 14:25] LABS: Troponin I <0.012 ng/mL (0.000-0.034)
[2017-02-06 14:31] LABS: Creatine Kinase MB 2.8 ng/mL (0.0-2.4)
[2017-02-06 14:39] LABS: VBG PH 7.36 (7.31-7.41)
[2017-02-06] MEDS ORDERED: INSULIN REGULAR 100 UNIT/ML VIAL SQ ONE (15:29)
[2017-02-06] MEDS ORDERED: MORPHINE SULFATE 2 MG/ML SYRINGE IVP PRN (15:32)
[2017-02-06] MEDS ORDERED: NITROGLYCERIN SL TABS 0.4 MG TAB SUBLINGUAL PRN (15:32)
[2017-02-06] MEDS ORDERED: MECLIZINE 12.5 MG TAB PO PRN (15:43)
[2017-02-06] MEDS ORDERED: HYDROcodone/APAP 5-325MG 1 EACH TAB PO PRN (15:43)
[2017-02-06] MEDS ORDERED: MAGNESIUM OXIDE 400 MG TAB PO STA (15:53)
[2017-02-06 15:56] LABS: Appearance,Urine Clear (Clear); Bilirubin,Urine Negative (Negative); Glucose,Urine (UA) 4+ (Negative); Ketones,Urine Negative (Negative); Leukocyte Esterase,Urine Negative (Negative); Nitrite,Urine Negative (Negative); Protein,Urine Negative (Negative); Specific Gravity,Urine 1.009 (1.001-1.035); UA Billing (MACRO vs. MICRO) CHEM; Urobilinogen,Urine <2.0 mg/dL (<2.0)
[2017-02-06] MEDS: SODIUM CHLORIDE 0.9% 1,000 ML IV SCH (16:11)
[2017-02-06 16:50] LABS: Glucose,Whole Blood 189 mg/dL (75-99)
[2017-02-06 16:56] VITALS: BMI 30.2
[2017-02-06 19:35] LABS: Creatine Kinase 154 U/L (30-135)
[2017-02-06 19:47] LABS: Troponin I <0.012 ng/mL (0.000-0.034)
[2017-02-06 19:49] LABS: Creatine Kinase MB 2.5 ng/mL (0.0-2.4)
[2017-02-06] MEDS: amLODIPine 5 MG TAB PO SCH (20:43)
[2017-02-06] MEDS: MAGNESIUM OXIDE 400 MG TAB PO SCH (20:43)
[2017-02-06] MEDS ORDERED: LATANOPROST 0.005% OPHTH DROPS 2.5 ML BTL BOTH EYES SCH (21:00)
[2017-02-06] MEDS ORDERED: ATORVASTATIN 40 MG TAB PO SCH (21:00)
[2017-02-06 21:09] LABS: Glucose,Whole Blood 78 mg/dL (75-99)
--- NOTE | 2017-02-06 21:46 | P.HPIM ---
History of Present Illness H&P Date: 02/06/17 Chief Complaint: High sugars This is a pleasant 81-year-old patient of Dr. Ramirez. Patient's chronic stable medical conditions include autonomic dysfunction, hypertension, coronary artery disease, hyperlipidemia, essential stricture, hypothyroid, osteoarthritis. Patient states her sugars normally run about 130s at home. She thinks one of her diabetes oral medications was stopped by her family doctor and the last 3-4 days she was a been running high. Hence he decided to come in the hospital. Patient also noticed that when she exerts herself she discussion short of breath tired. Also had very sharp short living chest pain central for about 10- 15 seconds questionable going to the neck area denies any additional perspiration and dizziness. Patient at baseline feels weak and tired. 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 Review of Systems GEN.: Tired EYES: Poor vision in the right eye HEENT: None NECK: None RESPIRATORY: None CARDIOVASCULAR: As above GASTROINTESTINAL: None GENITOURINARY: None MUSCULOSKELETAL: Pain in the joints LYMPHATICS: None HEMATOLOGICAL: None PSYCHIATRY: None NEUROLOGICAL: Some numbness distally Past Medical History Past Medical History: Coronary Artery Disease (CAD), Chest Pain / Angina, CVA/ TIA, Diabetes Mellitus, Hyperlipidemia, Hypertension, Thyroid Disorder Additional Past Medical History / Comment(s): Earlier today her R arm felt numb but is no longer. 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 History of Any Multi-Drug Resistant Organisms: None Reported Past Surgical History: Bladder Surgery, Cholecystectomy, Coronary Bypass/CABG, Heart Catheterization, Hysterectomy Additional Past Surgical History / Comment(s): CABG-2007, Ccath 2007, multiple EGDs with biopsies-last one done 12/2014, COLONOSCOPY. BILAT CATRACTS REMOVED, open cholecystectomy, D&C, bladder suspension Past Anesthesia/Blood Transfusion Reactions: Motion Sickness, Postoperative Nausea & Vomiting (PONV) Past Psychological History: No Psychological Hx Reported Additional Psychological History / Comment(s): Pt resides with her spouse. She is blind in her R eye. She uses a walker mostly if going out of the home and in crowds. She does not drive-her daughter takes her to appts or her . Smoking Status: Never smoker Past Alcohol Use History: None Reported Past Drug Use History: None Reported Additional History: Lives with her - Past Family History Father Family Medical History: Unable to Obtain Mother Family Medical History: Unable to Obtain Daughter(s) Family Medical History: Cancer Medications and Allergies Home Medications Medication Instructions Recorded Confirmed Type Benazepril HCl 20 mg PO DAILY 11/05/13 02/06/17 History Clopidogrel Bisulfate [Plavix] 75 mg PO DAILY 11/05/13 02/06/17 History glyBURIDE [Diabeta] 5 mg PO DAILY 11/05/13 02/06/17 History Cholecalciferol [Vitamin D3] 2,000 unit PO DAILY 02/05/15 02/06/17 History Omeprazole [PriLOSEC] 40 mg PO DAILY 09/06/15 02/06/17 History Atorvastatin Calcium [Lipitor] 40 mg PO HS 02/18/16 02/06/17 History Cranberry Fruit Extract [Cranberry] 500 mg PO DAILY 02/18/16 02/06/17 History Latanoprost [Xalatan 0.005%] 1 drop BOTH EYES HS 02/18/16 02/06/17 History amLODIPine BESYLATE [Norvasc] 5 mg PO BID 02/18/16 02/06/17 History HYDROcodone/APAP 5-325MG [[place] 1 tab PO Q6HR PRN 01/07/17 02/06/17 History 5-325] Levothyroxine Sodium [Synthroid] 50 mcg PO DAILY 01/07/17 02/06/17 History Loratadine [Claritin] 10 mg PO DAILY 01/07/17 02/06/17 History Meclizine HCl 12.5 mg PO Q8H PRN 01/07/17 02/06/17 History Allergies Allergy/AdvReac Type Severity Reaction Status Date / Time aspirin Allergy Rash/Hives Verified 02/06/17 13:19 Iodinated Contrast- Oral and Allergy Rash/Hives Verified 02/06/17 13:19 IV Dye [Iodinated Contrast Media - IV Dye] Iodine and Iodide Containing Allergy Rash/Hives Verified 02/06/17 13:19 Produc shellfish derived [Shellfish] Allergy Rash/Hives Verified 02/06/17 13:19 Physical Exam Vitals: Vital Signs Temp Pulse Pulse Resp BP BP Pulse Ox 02/06/17 16:48 97.2 F L 56 L 16 143/90 97 02/06/17 16:16 97.9 F 60 16 011/66 98 02/06/17 12:45 98.2 F 74 16 153/67 97 Intake and Output Patient Weight 02/07/17 06:59 Weight 70.3 kg VITAL SIGNS: Reviewed. BMI 30.3 noted GENERAL: Average built, sitting up, comfortable. EYES: Right eye damaged. Conjunctiva normal. HEENT: External appearance of nose and ears normal, oral cavity grossly normal. NECK: JVD not raised; masses not palpable. HEART: First and second heart sounds are normal; no edema. LUNGS: Respiratory rate normal; decreased breath sounds. ABDOMEN: Soft, nontender, liver spleen not palpable, no masses palpable. LYMPHATICS: No lymph nodes palpable in the axilla and neck. PSYCH: Alert and oriented x3; mood and affect normal. NEUROLOGICAL: Cranial nerves grossly intact; no facial asymmetry, power and sensation grossly intact. poor right eye vision Results CBC & Chem 7: 02/06/17 13:01 02/06/17 13:01 Labs: Labs: Hemoglobin 9.7, potassium 4.7, BNP 22, glucose 385 Troponin less than 0.012 EKG unremarkable Assessment and Plan Plan: Assessment: Possible angina in a patient with known coronary artery disease Poor vision in the right eye Autonomic dysfunction secondary to diabetes as well as type II Essential hypertension Oriented disease with prior history of coronary bypass Hyperlipidemia Essential hypertension Hypothyroidism Primary osteoarthritis of multiple joints bilateral Chronic urinary stress incontinence Plan: Serial cardiac enzymes will be done. We'll add metformin thousand gram twice a day. He Perclose and patient sugars. All along. Patient blood pressure and diabetes and not be well controlled per previous notes. Overall prognosis guarded given was discussed with the patient. Questions were answered. As patient is ALLERGIC to aspirin and we'll add Plavix. Patient already Lipitor. We will add a small dose of nitrates 2.
[2017-02-06] MEDS: CLOPIDOGREL 75 MG TAB PO SCH (22:28)
[2017-02-06] MEDS: ISOSORBIDE MONONITRATE ER 30 MG TAB.ER.24H PO SCH (22:28)
[2017-02-07] MEDS: ACETAMINOPHEN TAB 325 MG TAB PO PRN ×2 (01:14→04:38)
[2017-02-07 01:39] LABS: Creatine Kinase 141 U/L (30-135)
[2017-02-07 01:53] LABS: Creatine Kinase MB 2.1 ng/mL (0.0-2.4); Troponin I <0.012 ng/mL (0.000-0.034)
[2017-02-07] MEDS: SODIUM CHLORIDE 0.9% 1,000 ML IV SCH (04:38)
[2017-02-07 05:58] LABS: Glucose,Whole Blood 202 mg/dL (75-99)
[2017-02-07 06:28] LABS: Magnesium 1.1 mg/dL (1.6-2.3)
[2017-02-07] MEDS ORDERED: LEVOTHYROXINE 50 MCG TAB PO SCH (06:30)
[2017-02-07] MEDS: metFORMIN 500 MG TAB PO SCH ×2 (06:35→17:11)
[2017-02-07] MEDS ORDERED: Magnesium Replacement Protocol 1 EACH MISC MISCELLANE PRN (06:46)
[2017-02-07] MEDS: MAGNESIUM SULFATE-D5W PMX 1 GM in DEXTROSE/WATER 1 100ML.BAG IVPB SCH ×3 (07:01→12:19)
[2017-02-07] MEDS ORDERED: PANTOPRAZOLE 40 MG TABLET PO SCH (07:30)
[2017-02-07] MEDS ORDERED: glipiZIDE 10 MG TAB PO SCH (07:30)
--- NOTE | 2017-02-07 08:38 | P.CRDCN ---
History of Present Illness Consult date: 02/07/17 Requesting physician: Elan Nagel Consult reason: shortness of breath Chief complaint: Elevated blood sugars History of present illness: This is a pleasant 81-year-old female who follows regularly with Dr. Arevalo in the office. She has a known history of coronary artery disease with prior bypass surgery, diabetes, hypertension, hyperlipidemia, prior CVA, hypothyroidism, she presented to the hospital via EMS because of elevated blood sugars. According to the patient her blood sugars usually run in the 1:30 range , her doctor had recently told her to stop taking her metformin, she states that she had had a bowl of cereal and went in to have a shower, became extremely shaky and fell. They checked her blood sugars at that time which were noted to be greater than 400, for this reason the EMS was called and the patient was brought to the emergency room. According to the patient she denies having any chest discomfort but states at the time of this happening she was quite short of breath. Overall she's been doing very well at home. Initial EKG on arrival here showed a normal sinus rhythm with nonspecific ST-T wave changes in the lateral leads. EKG performed this morning shows normal sinus rhythm with T-wave changes in the lateral leads. Chest x-ray reveals chronic changes and cardiomegaly without any acute pulmonary process. CAT scan of the brain did not reveal any acute intracranial hemorrhage or midline shift. Blood pressure on arrival here 152/60 with a heart rate in the 70s 97% on room air. WBC 4.9, hemoglobin 9.7, platelet count 187, sodium 140, potassium 4.7, blood glucose on arrival 385, magnesium 1.1, troponins have been negative 3. Past Medical History Past Medical History: Coronary Artery Disease (CAD), Chest Pain / Angina, CVA/ TIA, Diabetes Mellitus, Hyperlipidemia, Hypertension, Thyroid Disorder Additional Past Medical History / Comment(s): Earlier today her R arm felt numb but is no longer. 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 History of Any Multi-Drug Resistant Organisms: None Reported Past Surgical History: Bladder Surgery, Cholecystectomy, Coronary Bypass/CABG, Heart Catheterization, Hysterectomy Additional Past Surgical History / Comment(s): CABG-2007, Ccath 2007, multiple EGDs with biopsies-last one done 12/2014, COLONOSCOPY. BILAT CATRACTS REMOVED, open cholecystectomy, D&C, bladder suspension Past Anesthesia/Blood Transfusion Reactions: Motion Sickness, Postoperative Nausea & Vomiting (PONV) Past Psychological History: No Psychological Hx Reported Additional Psychological History / Comment(s): Pt resides with her spouse. She is blind in her R eye. She uses a walker mostly if going out of the home and in crowds. She does not drive-her daughter takes her to [employer] or her . Smoking Status: Never smoker Past Alcohol Use History: None Reported Past Drug Use History: None Reported - Past Family History Father Family Medical History: Unable to Obtain Mother Family Medical History: Unable to Obtain Daughter(s) Family Medical History: Cancer Medications and Allergies Home Medications Medication Instructions Recorded Confirmed Type Benazepril HCl 20 mg PO DAILY 11/05/13 02/06/17 History Clopidogrel Bisulfate [Plavix] 75 mg PO DAILY 11/05/13 02/06/17 History glyBURIDE [Diabeta] 5 mg PO DAILY 11/05/13 02/06/17 History Cholecalciferol [Vitamin D3] 2,000 unit PO DAILY 02/05/15 02/06/17 History Omeprazole [PriLOSEC] 40 mg PO DAILY 09/06/15 02/06/17 History Atorvastatin Calcium [Lipitor] 40 mg PO HS 02/18/16 02/06/17 History Cranberry Fruit Extract [Cranberry] 500 mg PO DAILY 02/18/16 02/06/17 History Latanoprost [Xalatan 0.005%] 1 drop BOTH EYES HS 02/18/16 02/06/17 History amLODIPine BESYLATE [Norvasc] 5 mg PO BID 02/18/16 02/06/17 History HYDROcodone/APAP 5-325MG [[place] 1 tab PO Q6HR PRN 01/07/17 02/06/17 History 5-325] Levothyroxine Sodium [Synthroid] 50 mcg PO DAILY 01/07/17 02/06/17 History Loratadine [Claritin] 10 mg PO DAILY 01/07/17 02/06/17 History Meclizine HCl 12.5 mg PO Q8H PRN 01/07/17 02/06/17 History Allergies Allergy/AdvReac Type Severity Reaction Status Date / Time aspirin Allergy Rash/Hives Verified 02/06/17 13:19 Iodinated Contrast- Oral and Allergy Rash/Hives Verified 02/06/17 13:19 IV Dye [Iodinated Contrast Media - IV Dye] Iodine and Iodide Containing Allergy Rash/Hives Verified 02/06/17 13:19 Produc shellfish derived [Shellfish] Allergy Rash/Hives Verified 02/06/17 13:19 Physical Exam Vitals: Vital Signs Temp Pulse Pulse Resp BP BP Pulse Ox 02/07/17 04:00 62 16 145/65 96 02/07/17 00:00 97.3 F L 68 16 162/70 100 02/06/17 20:00 97.6 F 61 18 139/65 98 02/06/17 16:48 97.2 F L 56 L 16 143/90 97 02/06/17 16:16 97.9 F 60 16 011/66 98 02/06/17 12:45 98.2 F 74 16 153/67 97 Intake and Output 02/06/17 02/07/17 02/07/17 22:59 06:59 14:59 Intake Total 246 920 Balance 246 920 Intake: Amount of Fluid Infused ( 10 ml) Intake, IV Titration 500 Amount Sodium Chloride 0.9% 1, 500 000 ml @ 100 mls/hr IV . Q10H STA Rx#:[id number] Oral 236 420 Other: Voiding Method Toilet Toilet Weight 70.3 kg 70.9 kg PHYSICAL EXAMINATION: HEENT: Head is atraumatic, normocephalic. Right eye blindness. Neck is supple. There is no elevated jugular venous pressure. HEART EXAMINATION: Heart S1 and S2 systolic ejection murmur is heard CHEST EXAMINATION: Lungs are clear to auscultation and precussion. No chest wall tenderness is noted on palpation or with deep breathing. ABDOMEN: Soft, nontender. Bowel sounds are heard. No organomegaly noted. EXTREMITIES: 1+ peripheral pulses with no evidence of peripheral edema and no calf tenderness noted. There is an open ulcerated area noted on the right foot between the first and second toes. NEUROLOGIC patient is awake, alert and oriented -3. . Results 02/06/17 13:01 02/06/17 13:01 Cardiac Enzymes 02/06/17 02/06/17 02/06/17 Range/Units 13:01 13:01 18:48 AST 19 (14-36) U/L CK-MB (CK-2) 2.8 H* 2.5 H* (0.0-2.4) ng/mL Troponin I <0.012 <0.012 (0.000-0.034) ng/mL 02/07/17 Range/Units 00:59 AST (14-36) U/L CK-MB (CK-2) 2.1 (0.0-2.4) ng/mL Troponin I <0.012 (0.000-0.034) ng/mL Coagulation 02/06/17 Range/Units 13:01 PT 11.6 (9.0-12.0) sec APTT 24.5 (22.0-30.0) sec Lipids 02/07/17 Range/Units 05:58 Triglycerides 139 (<150) mg/dL Cholesterol 118 (<200) mg/dL HDL Cholesterol 40 (40-60) mg/dL CBC 02/06/17 Range/Units 13:01 WBC 4.9 (3.8-10.6) k/uL RBC 3.24 L (3.80-5.40) m/uL Hgb 9.7 L (11.4-16.0) gm/dL Hct 29.0 L (34.0-46.0) % Plt Count 187 (150-450) k/uL Comprehensive Metabolic Panel 02/06/17 Range/Units 13:01 Sodium 140 (137-145) mmol/L Potassium 4.7 (3.5-5.1) mmol/L Chloride 107 (98-107) mmol/L Carbon Dioxide 21 L (22-30) mmol/L BUN 22 H (7-17) mg/dL Creatinine 0.90 (0.52-1.04) mg/dL Glucose 385 H (74-99) mg/dL Calcium 8.6 (8.4-10.2) mg/dL AST 19 (14-36) U/L ALT 29 (9-52) U/L Alkaline Phosphatase 66 (38-126) U/L Total Protein 6.3 (6.3-8.2) g/dL Albumin 3.6 (3.5-5.0) g/dL Current Medications Generic Name Dose Route Start Last Admin Trade Name Freq PRN Reason Stop Dose Admin Acetaminophen 650 mg 02/06/17 15:32 02/07/17 04:38 Tylenol Tab PO 650 mg Q4HR PRN Administration Pain Hydrocodone Bitart/Acetaminophen 1 each 02/06/17 15:43 [place] 5-325 PO Q6HR PRN Pain Amlodipine Besylate 5 mg 02/06/17 21:00 02/06/17 20:43 Norvasc PO 5 mg BID LARRY Administration Atorvastatin Calcium 40 mg 02/06/17 21:00 02/06/17 20:47 Lipitor PO 40 mg HS LARRY Administration Cholecalciferol 2,000 unit 02/07/17 12:00 Vitamin D3 PO 1200 LARRY Clopidogrel Bisulfate 75 mg 02/06/17 22:00 02/06/17 22:28 Plavix PO 75 mg DAILY LARRY Administration Fluconazole 100 mg 02/07/17 09:00 Diflucan PO DAILY LARRY Glipizide 10 mg 02/07/17 07:30 02/07/17 06:35 Glucotrol PO 10 mg AC-BRKFST LARRY Administration Sodium Chloride 1,000 mls @ 20 mls/hr 02/06/17 15:45 02/07/17 04:38 Saline 0.9% IV 20 mls/hr .Q24H LARRY Administration Magnesium Sulfate/Dextrose 1 100 mls @ 100 mls/hr 02/07/17 07:00 02/07/17 07: 01 gm/ IV Solution IVPB 02/07/17 09:59 100 mls/hr Q1H LARRY Administration Isosorbide Mononitrate 30 mg 02/06/17 22:00 02/06/17 22:28 Imdur PO 30 mg DAILY LARRY Administration Latanoprost 1 drops 02/06/17 21:00 02/06/17 20:43 Xalatan 0.005% BOTH EYES 1 drops HS LARRY Administration Levothyroxine Sodium 50 mcg 02/07/17 06:30 02/07/17 06:35 Synthroid PO 50 mcg 0630 LARRY Administration Lisinopril 20 mg 02/07/17 09:00 Zestril PO DAILY LARRY Loratadine 10 mg 02/07/17 09:00 Claritin PO DAILY LARRY Magnesium Oxide 400 mg 02/06/17 21:00 02/06/17 20:43 Mag-Ox PO 400 mg BID LARRY Administration Meclizine HCl 12.5 mg 02/06/17 15:43 Antivert PO Q8H PRN Vertigo Metformin HCl 1,000 mg 02/07/17 07:30 02/07/17 06:35 Glucophage PO 1,000 mg BID-W/MEALS LARRY Administration Miscellaneous Information 1 each 02/07/17 06:46 Magnesium Per Protocol MISCELLANE DAILY PRN Per Protocol Protocol Morphine Sulfate 2 mg 02/06/17 15:32 Morphine Sulfate (Inj) IVP Q5M PRN Chest Pain Nitroglycerin 0.4 mg 02/06/17 15:32 Nitrostat SUBLINGUAL Q5M PRN Chest Pain Pantoprazole Sodium 40 mg 02/07/17 07:30 02/07/17 06:35 Protonix PO 40 mg AC-BRKFST LARRY Administration Intake and Output 02/06/17 02/07/17 02/07/17 22:59 06:59 14:59 Intake Total 246 920 Balance 246 920 Intake: Amount of Fluid Infused ( 10 ml) Intake, IV Titration 500 Amount Sodium Chloride 0.9% 1, 500 000 ml @ 100 mls/hr IV . Q10H STA Rx#:[id number] Oral 236 420 Other: Voiding Method Toilet Toilet Weight 70.3 kg 70.9 kg 02/06/17 13:01 02/06/17 13:01 EKG Interpretations (text) EKG shows a normal sinus rhythm with nonspecific ST-T wave changes in the lateral leads. Assessment and Plan Plan: Assessment and plan #1 hyperglycemia #2 hypomagnesemia #3 known history of coronary artery disease with prior coronary artery bypass grafting surgery in 2007 at which time patient underwent a HAGEN to the LAD, saphenous vein graft to the OM1 OM 2 and PDA. Subsequent to that patient did undergo angioplasty with stenting of the saphenous vein graft to the OM in 2007. #4 diabetes #5 hypertension #6 hyperlipidemia #7 prior CVA #8 PVD Plan We will obtain an echocardiogram with Doppler study. Patient has been resumed on her diabetes medications. Her symptoms of feeling shaky, is a little unusual with hyperglycemia, we would recommend that she wear a 30 day event monitor on discharge to rule out any tachycardia arrhythmias. She is otherwise stable from a cardiac perspective. Most recent stress test was performed in July 2014 which was reported to be normal. Further recommendations to follow. DNP note has been reviewed, I agree with a documented findings and plan of care. Patient was seen and examined.
[2017-02-07] MEDS: CLOPIDOGREL 75 MG TAB PO SCH (08:41)
[2017-02-07] MEDS: ISOSORBIDE MONONITRATE ER 30 MG TAB.ER.24H PO SCH (08:41)
[2017-02-07] MEDS: amLODIPine 5 MG TAB PO SCH (08:41)
[2017-02-07] MEDS: MAGNESIUM OXIDE 400 MG TAB PO SCH (08:41)
[2017-02-07] MEDS ORDERED: LISINOPRIL 20 MG TAB PO SCH (09:00)
[2017-02-07] MEDS ORDERED: NON-FORMULARY DRUG (Cranberry Fruit Extract [Cranberry] 500 MG) PO SCH (09:00)
[2017-02-07] MEDS ORDERED: LORATADINE 10 MG TAB PO SCH (09:00)
[2017-02-07] MEDS ORDERED: FLUCONAZOLE 100 MG TAB PO SCH (09:00)
[2017-02-07] MEDS ORDERED: CLOPIDOGREL 75 MG TAB PO SCH (09:00)
[2017-02-07 11:42] LABS: Hemoglobin A1C 7.5 % (4.2-6.1)
--- NOTE | 2017-02-07 11:46 | ECHOF ---
Referral Reason:chf MEASUREMENTS -------- HEIGHT: 152.4 cm WEIGHT: 70.8 kg BP: 145/65 IVSd: 1.3 cm (0.6 - 1.1) LVIDd: 3.8 cm (3.9 - 5.3) LVPWd: 1.4 cm (0.6 - 1.1) IVSs: 1.5 cm LVIDs: 2.9 cm LVPWs: 1.5 cm LA Diam: 5.1 cm (2.7 - 3.8) LAESV Index (A-L): 50.10 ml/m Ao Diam: 3.2 cm (2.0 - 3.7) AV Cusp: 1.3 cm (1.5 - 2.6) LA Diam: 5.9 cm (2.7 - 3.8) MV EXCURSION: 13.883 mm (> 18.000) MV EF SLOPE: 55 mm/s (70 - 150) EPSS: 0.2 cm MV E Simeon: 1.34 m/s MV DecT: 211 ms MV A Simeon: 1.45 m/s MV E/A Ratio: 0.92 RAP: 5.00 mmHg RVSP: 43.42 mmHg FINDINGS -------- Undetermined rhythm. This was a technically adequate study. There is mild concentric left ventricular hypertrophy. Overall left ventricular systolic function is low-normal with, an EF between 50 - 55 %. The right ventricle is normal in size. LA is severely dilated >40 ml/m2 The right atrial size is normal. There is mild aortic valve sclerosis. There is no evidence of aortic regurgitation. Severe mitral annular calcification present. Mild mitral regurgitation is present. The peak and mean MV gradients are 17.22mmHg 6.88mmHg as measured by doppler. Mild mitral stenosis. Mild tricuspid regurgitation present. There is mild pulmonary hypertension. The right ventricular systolic pressure, as measured by Doppler, is 43.42mmHg. Trace/mild (physiologic) pulmonic regurgitation. The aortic root size is normal. There is no pericardial effusion. CONCLUSIONS -------- 1. There is mild concentric left ventricular hypertrophy. 2. There is mild pulmonary hypertension. 3. The right ventricular systolic pressure, as measured by Doppler, is 43.42mmHg. 4. Trace/mild (physiologic) pulmonic regurgitation. 5. There is no pericardial effusion. 6. Overall left ventricular systolic function is low-normal with, an EF between 50 - 55 %. 7. LA is severely dilated >40 ml/m2 8. There is mild aortic valve sclerosis. 9. Severe mitral annular calcification present. 10. Mild mitral regurgitation is present. 11. The peak and mean MV gradients are 17.22mmHg 6.88mmHg as measured by doppler. 12. Mild mitral stenosis. 13. Mild tricuspid regurgitation present. GARAGEMAN: Paulette Garza RDCS
[2017-02-07] MEDS ORDERED: CHOLECALCIFEROL 1,000 UNIT TAB PO SCH (12:00)
[2017-02-07 12:02] LABS: Glucose,Whole Blood 241 mg/dL (75-99)
[2017-02-07 12:44] VITALS: RESP 20; TEMP 97.1
--- NOTE | 2017-02-07 14:08 | P.DS ---
Providers Date of admission: 02/06/17 15:32 Expected date of discharge: 02/07/17 Attending physician: Elan Nagel Consults: 02/06/17 15:32 Consult Physician Urgent Consulting Provider: Laly Merino Consult Reason/Comments: chest pain Do you want consulting provider notified?: Yes Primary care physician: [facility] Course: Hospital course: This patient presented with uncontrolled diabetes. Metformin was added. sugars are doing much better. Patient had some chest pain. Seen by cardiology. Imdur was added. 2-D echo was done. EF 50-55% with no wall motion abnormality. Also found to have some cellulitis between the toes of the left foot Silvadene cream was given for topical use Today patient feeling much better. Care was discussed with her. Final diagnosis: Possible angina in a patient with known coronary artery disease Poor vision in the right eye Autonomic dysfunction secondary to diabetes as well as type II Essential hypertension Coronary artery disease with prior history of coronary bypass Hyperlipidemia Essential hypertension Hypothyroidism Primary osteoarthritis of multiple joints bilateral Chronic urinary stress incontinence Acute cellulitis between the toes of the left foot On examination: Cardiovascular heart sounds normal, no edema Lungs rate is normal, decreased breath sounds Psych AAO 3 mood affect normal Some cellulitis between the first 3 toes of the left foot Patient Condition at Discharge: Good Plan - Discharge Summary New Discharge Prescriptions: New Isosorbide Mononitrate ER [Imdur] 30 mg PO DAILY #30 tab metFORMIN HCL [Glucophage] 1,000 mg PO BID-W/MEALS #60 tab Nitroglycerin Sl Tabs [Nitrostat] 0.4 mg SUBLINGUAL Q5M PRN #20 tab PRN Reason: Chest Pain SILVER sulfADIAZINE CREAM [Silvadene Cream] 1 applic TOPICAL BID #1 package Continue Benazepril HCl 20 mg PO DAILY Clopidogrel Bisulfate [Plavix] 75 mg PO DAILY glyBURIDE [Diabeta] 5 mg PO DAILY Cholecalciferol [Vitamin D3] 2,000 unit PO DAILY Omeprazole [PriLOSEC] 40 mg PO DAILY Latanoprost [Xalatan 0.005%] 1 drop BOTH EYES HS amLODIPine BESYLATE [Norvasc] 5 mg PO BID Atorvastatin Calcium [Lipitor] 40 mg PO HS Cranberry Fruit Extract [Cranberry] 500 mg PO DAILY Loratadine [Claritin] 10 mg PO DAILY Levothyroxine Sodium [Synthroid] 50 mcg PO DAILY Meclizine HCl 12.5 mg PO Q8H PRN PRN Reason: Vertigo HYDROcodone/APAP 5-325MG [[place] 5-325] 1 tab PO Q6HR PRN PRN Reason: Pain Fluconazole [Diflucan] 100 mg PO DAILY #7 tab Discharge Medication List Benazepril HCl 20 mg PO DAILY 11/05/13 [History] Clopidogrel Bisulfate [Plavix] 75 mg PO DAILY 11/05/13 [History] glyBURIDE [Diabeta] 5 mg PO DAILY 11/05/13 [History] Cholecalciferol [Vitamin D3] 2,000 unit PO DAILY 02/05/15 [History] Omeprazole [PriLOSEC] 40 mg PO DAILY 09/06/15 [History] Atorvastatin Calcium [Lipitor] 40 mg PO HS 02/18/16 [History] Cranberry Fruit Extract [Cranberry] 500 mg PO DAILY 02/18/16 [History] Latanoprost [Xalatan 0.005%] 1 drop BOTH EYES HS 02/18/16 [History] amLODIPine BESYLATE [Norvasc] 5 mg PO BID 02/18/16 [History] HYDROcodone/APAP 5-325MG [[place] 5-325] 1 tab PO Q6HR PRN 01/07/17 [History] Levothyroxine Sodium [Synthroid] 50 mcg PO DAILY 01/07/17 [History] Loratadine [Claritin] 10 mg PO DAILY 01/07/17 [History] Meclizine HCl 12.5 mg PO Q8H PRN 01/07/17 [History] Fluconazole [Diflucan] 100 mg PO DAILY #7 tab 01/08/17 [Rx] Isosorbide Mononitrate ER [Imdur] 30 mg PO DAILY #30 tab 02/07/17 [Rx] Nitroglycerin Sl Tabs [Nitrostat] 0.4 mg SUBLINGUAL Q5M PRN #20 tab 02/07/17 [Rx ] SILVER sulfADIAZINE CREAM [Silvadene Cream] 1 applic TOPICAL BID #1 package 07/26 [Rx] metFORMIN HCL [Glucophage] 1,000 mg PO BID-W/MEALS #60 tab 02/07/17 [Rx] Follow up Appointment(s)/Referral(s): Corrie Arevalo MD [STAFF PHYSICIAN] - 1 Week Esvin Ramirez DO [Primary Care Provider] - 1-2 days Activity/Diet/Wound Care/Special Instructions: Use silvadene cream between 3rd and 4th toes on the left foot, wrap with Kerlix. Consistent carbohydrate diet Discharge Disposition: HOME SELF-CARE
[2017-02-07 15:28] VITALS: BP 155/69; PULSE 68
[2017-02-07 17:11] LABS: Glucose,Whole Blood 185 mg/dL (75-99)
== END 2017-02-07 18:58 | disposition home or self-care (01) ==
LOC: EC 12:42 → INTOOBSV 15:32 → 6SEL 15:32
PROVIDERS: ADMIT Hospitalist; ATTEND Hospitalist
DX: E11.65 Type 2 diabetes mellitus with hyperglycemia (principal); I25.10 Atherosclerotic heart disease of native coronary artery without angina pectoris; H54.41 Blindness, right eye, normal vision left eye; R51 Headache; H53.8 Other visual disturbances; E78.5 Hyperlipidemia, unspecified; I11.9 Hypertensive heart disease without heart failure; E11.42 Type 2 diabetes mellitus with diabetic polyneuropathy; E03.9 Hypothyroidism, unspecified; K44.9 Diaphragmatic hernia without obstruction or gangrene; G89.4 Chronic pain syndrome; I69.354 Hemiplegia and hemiparesis following cerebral infarction affecting left non-dominant side; M19.90 Unspecified osteoarthritis, unspecified site; E87.2 Acidosis; R94.31 Abnormal electrocardiogram [ECG] [EKG]; D64.9 Anemia, unspecified; N39.3 Stress incontinence (female) (male); R06.02 Shortness of breath; E11.319 Type 2 diabetes mellitus with unspecified diabetic retinopathy without macular edema; L03.116 Cellulitis of left lower limb; I73.9 Peripheral vascular disease, unspecified; E83.42 Hypomagnesemia; R07.9 Chest pain, unspecified; Z79.899 Other long term (current) drug therapy; Z79.84 Long term (current) use of oral hypoglycemic drugs; Z88.6 Allergy status to analgesic agent; Z91.041 Radiographic dye allergy status; Z91.013 Allergy to seafood; Z95.1 Presence of aortocoronary bypass graft
CPT/HCPCS: 96365; 96366; 96361; 96375; 99285; 36415; 93005; 93306; 80061; 80053; 83036; 82550 ×2; 82553 ×2; 82803; 83735 ×2; 84484 ×2; 85025; 85610; 85730; 81003; 71020; 70450; G0378 ×2; J2270; J3475

== ENCOUNTER → 2017-02-15 | Outpatient (CLI) | payer MEDICARE, OTHER ==
[2017-02-15 18:00] LABS: C Reactive Protein <5.0 mg/L (<10.0); Creatine Kinase 135 U/L (30-135)
== END | disposition home or self-care (01) ==
LOC: LABWHC1 17:09
PROVIDERS: ATTEND Psychiatry & Neurology Neurology
DX: M79.1 Myalgia (principal)
CPT/HCPCS: 36415; 82550; 85652; 86140

== ENCOUNTER 2017-07-27 10:05 | Observation (INO) | payer MEDICARE, OTHER ==
--- NOTE | 2017-07-27 11:04 | ED ---
General Adult HPI - General Chief complaint: ENT Stated complaint: Nausea/Vomiting Time Seen by Provider: 07/27/17 10:30 Source: patient, EMS, RN notes reviewed Mode of arrival: EMS - History of Present Illness Initial comments: This 82-year-old female with a history of esophageal stricture in the past 2 about every 6 months has trouble swallowing things. This morning she tried to swallow her pills and was unable to get them down she vomited all of them up. She has no chest pain shortness breath or abdominal pain. - Related Data Home Medications Medication Instructions Recorded Confirmed Benazepril HCl 20 mg PO DAILY 11/05/13 07/27/17 Clopidogrel Bisulfate [Plavix] 75 mg PO DAILY 11/05/13 07/27/17 glyBURIDE [Diabeta] 10 mg PO BID 11/05/13 07/27/17 Cholecalciferol [Vitamin D3] 2,000 unit PO DAILY 02/05/15 07/27/17 Atorvastatin Calcium [Lipitor] 40 mg PO HS 02/18/16 07/27/17 Cranberry Fruit Extract [Cranberry] 500 mg PO DAILY 02/18/16 07/27/17 amLODIPine BESYLATE [Norvasc] 5 mg PO BID 02/18/16 07/27/17 Levothyroxine Sodium [Synthroid] 50 mcg PO DAILY 01/07/17 07/27/17 Loratadine [Claritin] 10 mg PO DAILY 01/07/17 07/27/17 Meclizine HCl 12.5 mg PO Q8H PRN 01/07/17 07/27/17 Famotidine [Pepcid] 20 mg PO DAILY 07/27/17 07/27/17 Gabapentin [Neurontin] 300 mg PO TID 07/27/17 07/27/17 Prazosin [Minipress] 1 mg PO BID 07/27/17 07/27/17 Vitamin C/Biotin [Hair, Skin and 1 tab PO DAILY 07/27/17 07/27/17 Nails] metFORMIN HCL [metFORMIN HCL ER] 1,000 mg PO AC-BID 07/27/17 07/27/17 Previous Rx's Medication Instructions Recorded Nitroglycerin Sl Tabs [Nitrostat] 0.4 mg SUBLINGUAL Q5M PRN #20 tab 02/07/17 Allergies Allergy/AdvReac Type Severity Reaction Status Date / Time aspirin Allergy Rash/Hives Verified 07/27/17 10:23 Iodinated Contrast- Oral and Allergy Rash/Hives Verified 07/27/17 10:23 IV Dye [Iodinated Contrast Media - IV Dye] Iodine and Iodide Containing Allergy Rash/Hives Verified 07/27/17 10:23 Produc shellfish derived [Shellfish] Allergy Rash/Hives Verified 07/27/17 10:23 Review of Systems ROS Statement: Those systems with pertinent positive or pertinent negative responses have been documented in the HPI. ROS Other: All systems not noted in ROS Statement are negative. Past Medical History Past Medical History: Coronary Artery Disease (CAD), Chest Pain / Angina, CVA/ TIA, Diabetes Mellitus, Hyperlipidemia, Hypertension, Thyroid Disorder Additional Past Medical History / Comment(s): Earlier today her R arm felt numb but is no longer. 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 History of Any Multi-Drug Resistant Organisms: None Reported Past Surgical History: Bladder Surgery, Cholecystectomy, Coronary Bypass/CABG, Heart Catheterization, Hysterectomy Additional Past Surgical History / Comment(s): CABG-2007, Ccath 2007, multiple EGDs with biopsies-last one done 12/2014, COLONOSCOPY. BILAT CATRACTS REMOVED, open cholecystectomy, D&C, bladder suspension Past Anesthesia/Blood Transfusion Reactions: Motion Sickness, Postoperative Nausea & Vomiting (PONV) Past Psychological History: No Psychological Hx Reported Smoking Status: Never smoker Past Alcohol Use History: None Reported Past Drug Use History: None Reported - Past Family History Father Family Medical History: Unable to Obtain Mother Family Medical History: Unable to Obtain Daughter(s) Family Medical History: Cancer General Exam - General Exam Comments Initial Comments: This is a well-developed well-nourished awake alert oriented 3 female General appearance: alert, in no apparent distress Head exam: Present: atraumatic, normocephalic, normal inspection Eye exam: Present: normal appearance, PERRL, EOMI. Absent: scleral icterus, conjunctival injection, periorbital swelling ENT exam: Present: normal exam, mucous membranes moist Neck exam: Present: normal inspection. Absent: tenderness, meningismus, lymphadenopathy Respiratory exam: Present: normal lung sounds bilaterally. Absent: respiratory distress, wheezes, rales, rhonchi, stridor Cardiovascular Exam: Present: regular rate, normal rhythm, normal heart sounds. Absent: systolic murmur, diastolic murmur, rubs, gallop, clicks GI/Abdominal exam: Present: soft, normal bowel sounds. Absent: distended, tenderness, guarding, rebound, rigid Extremities exam: Present: normal inspection, full ROM, normal capillary refill. Absent: tenderness, pedal edema, joint swelling, calf tenderness Back exam: Present: normal inspection Neurological exam: Present: alert, oriented X3, CN II-XII intact Psychiatric exam: Present: normal affect, normal mood Skin exam: Present: warm, dry, intact, normal color. Absent: rash Course Vital Signs 07/27/17 07/27/17 10:06 10:33 Temperature 98.0 F Pulse Rate 74 Respiratory 19 20 Rate Blood Pressure 229/95 O2 Sat by Pulse 97 Oximetry Medical Decision Making - Medical Decision Making I did discuss the case with Dr. Zavaleta and with Dr. Nagel. Patient be admitted for evaluation esophageal obstruction versus stricture also hypomagnesemia. - Lab Data Result diagrams: 07/27/17 11:33 Lab Results 07/27/17 07/27/17 Range/Units 11:33 11:33 Sodium 145 (137-145) mmol/L Potassium 4.5 (3.5-5.1) mmol/L Chloride 108 H (98-107) mmol/L Carbon Dioxide 26 (22-30) mmol/L Anion Gap 11 mmol/L BUN 26 H (7-17) mg/dL Creatinine 1.04 (0.52-1.04) mg/dL Est GFR (MDRD) Af Amer >60 (>60 ml/min/1.73 sqM) Est GFR (MDRD) Non-Af 51 (>60 ml/min/1.73 sqM) Glucose 122 H (74-99) mg/dL Calcium 9.4 (8.4-10.2) mg/dL Magnesium 1.1 L (1.6-2.3) mg/dL Total Bilirubin 0.4 (0.2-1.3) mg/dL AST 22 (14-36) U/L ALT 32 (9-52) U/L Alkaline Phosphatase 73 (38-126) U/L Total Creatine Kinase 120 (30-135) U/L CK-MB (CK-2) 2.4 (0.0-2.4) ng/mL CK-MB (CK-2) Rel Index 2.0 Troponin I <0.012 (0.000-0.034) ng/mL Total Protein 6.7 (6.3-8.2) g/dL Albumin 3.9 (3.5-5.0) g/dL Amylase 35 (30-110) U/L Lipase 79 (23-300) U/L - Radiology Data Radiology results: report reviewed (I did review the imaging and report no acute findings.), image reviewed Disposition Clinical Impression: Esophageal obstruction, Hypomagnesemia syndrome Disposition: ADMITTED IP TO THIS HOSP Referrals: Esvin Ramirez DO [Primary Care Provider] - 1-2 days
--- NOTE | 2017-07-27 11:25 | XR ---
EXAMINATION TYPE: XR chest 2V DATE OF EXAM: 07/27/2017 COMPARISON: 02/06/2017 HISTORY: 82-year-old female cough TECHNIQUE: AP and lateral views FINDINGS: Median sternotomy wires are present with post-CABG clips. Heart upper limits of normal in size. Mild interstitial prominence is unchanged. No consolidation or pleural effusion. IMPRESSION: Chronic changes without acute process seen.
[2017-07-27 12:34] LABS: ALT 32 U/L (9-52); AST 22 U/L (14-36); Albumin 3.9 g/dL (3.5-5.0); Alkaline Phosphatase 73 U/L (38-126); Amylase 35 U/L (30-110); Anion Gap 11 mmol/L; Blood Urea Nitrogen 26 mg/dL (7-17); Calcium 9.4 mg/dL (8.4-10.2); Carbon Dioxide 26 mmol/L (22-30); Chloride 108 mmol/L (98-107); Glucose 122 mg/dL (74-99); Lipase 79 U/L (23-300); Magnesium 1.1 mg/dL (1.6-2.3); Potassium 4.5 mmol/L (3.5-5.1); Sodium 145 mmol/L (137-145); Total Bilirubin 0.4 mg/dL (0.2-1.3); Total Protein 6.7 g/dL (6.3-8.2)
[2017-07-27 12:38] LABS: Creatine Kinase 120 U/L (30-135)
[2017-07-27 12:51] LABS: Creatine Kinase MB 2.4 ng/mL (0.0-2.4); Troponin I <0.012 ng/mL (0.000-0.034)
[2017-07-27] MEDS ORDERED: MAGNESIUM SULFATE-D5W PMX 1 GM in DEXTROSE/WATER 1 100ML.BAG IVPB ONE (13:14)
[2017-07-27] MEDS ORDERED: NALOXONE 0.4 MG/ML 1 ML VIAL IV PRN (13:19)
[2017-07-27] MEDS ORDERED: ONDANSETRON 4 MG/2 ML VIAL IVP PRN (13:19)
[2017-07-27] MEDS ORDERED: NITROGLYCERIN SL TABS 0.4 MG TAB SUBLINGUAL PRN (13:23)
[2017-07-27] MEDS ORDERED: hydrALAZINE HCL 20 MG/ML 1 ML VIAL IVP STA (13:33)
--- NOTE | 2017-07-27 13:34 | ED ---
Medical Decision Making - Lab Data Result diagrams: 07/27/17 11:33 Lab Results 07/27/17 07/27/17 Range/Units 11:33 11:33 Sodium 145 (137-145) mmol/L Potassium 4.5 (3.5-5.1) mmol/L Chloride 108 H (98-107) mmol/L Carbon Dioxide 26 (22-30) mmol/L Anion Gap 11 mmol/L BUN 26 H (7-17) mg/dL Creatinine 1.04 (0.52-1.04) mg/dL Est GFR (MDRD) Af Amer >60 (>60 ml/min/1.73 sqM) Est GFR (MDRD) Non-Af 51 (>60 ml/min/1.73 sqM) Glucose 122 H (74-99) mg/dL Calcium 9.4 (8.4-10.2) mg/dL Magnesium 1.1 L (1.6-2.3) mg/dL Total Bilirubin 0.4 (0.2-1.3) mg/dL AST 22 (14-36) U/L ALT 32 (9-52) U/L Alkaline Phosphatase 73 (38-126) U/L Total Creatine Kinase 120 (30-135) U/L CK-MB (CK-2) 2.4 (0.0-2.4) ng/mL CK-MB (CK-2) Rel Index 2.0 Troponin I <0.012 (0.000-0.034) ng/mL Total Protein 6.7 (6.3-8.2) g/dL Albumin 3.9 (3.5-5.0) g/dL Amylase 35 (30-110) U/L Lipase 79 (23-300) U/L Disposition Clinical Impression: Esophageal obstruction, Hypomagnesemia syndrome, Hypertension Disposition: ADMITTED IP TO THIS [facility] Referrals: Esvin Ramirez DO [Primary Care Provider] - 1-2 days
[2017-07-27] MEDS: SODIUM CHLORIDE 0.9% 1,000 ML IV SCH ×3 (13:42→21:25)
[2017-07-27 15:07] VITALS: BMI 30.2
[2017-07-27 17:26] LABS: Glucose,Whole Blood 91 mg/dL (75-99)
[2017-07-27] MEDS: INSULIN ASPART 100 UNIT/ML 1 ML 10 ML VIAL SQ SCH ×2 (17:33→20:45)
[2017-07-27] MEDS: amLODIPine 5 MG TAB PO SCH (20:15)
[2017-07-27] MEDS ORDERED: FAMOTIDINE 20 MG/2 ML VIAL IV SCH (21:00)
[2017-07-27] MEDS: PRAZOSIN 1 MG CAP PO SCH (21:14)
[2017-07-27] MEDS: GABAPENTIN 300 MG CAP PO SCH (21:14)
[2017-07-27 21:18] LABS: Glucose,Whole Blood 84 mg/dL (75-99)
[2017-07-27] MEDS: PANTOPRAZOLE 40 MG/10 ML VIAL IVP SCH (21:24)
--- NOTE | 2017-07-27 22:29 | HP ---
HISTORY AND PHYSICAL DATE OF ADMISSION: 07/27/2017. PRESENTING COMPLAINT: Difficulty swallowing. HISTORY OF PRESENTING COMPLAINT: This is a pleasant 82-year-old patient of Dr. Ramirez. The patient's chronic stable medical conditions include coronary artery disease, diabetes, blind in the right eye, hyperlipidemia, hypertension, prior stroke with some residual left-sided weakness, diabetes mellitus, type 2, prior esophageal strictures with dilatation, hiatal hernia, chronic pain, hypothyroidism, peripheral neuropathy, bilateral hand numbness and tingling, diabetic retinopathy, urinary incontinence. The patient's last esophageal dilatation probably was about a year ago. The patient was able to swallow until about 2 days ago, and suddenly noted difficulty in swallowing and felt that food was getting stuck in the upper chest and had to throw it up. Able to take some pills with applesauce and therefore presented to the hospital. Denies any pain in the chest. REVIEW OF SYSTEMS: CONSTITUTIONAL: None. HEENT: Blind in the right eye. RESPIRATORY: None. CARDIOVASCULAR: None. GASTROINTESTINAL: None. GENITOURINARY: None. MUSCULOSKELETAL: Pain in some joints. DERMATOLOGICAL: None. HEMATOLOGICAL: None. LYMPHATICS: None. PSYCHIATRY: None. NEUROLOGICAL: Numbness and tingling in the hands and feet. Weakness on the left side. PAST MEDICAL HISTORY: 1. Coronary artery disease. 2. Stroke with residual left-sided weakness. 3. Diabetes mellitus, type 2. 4. Blind in the right eye with diabetic retinopathy. 5. Hyperlipidemia. 6. Hypertension. 7. Hypothyroidism. 8. Stoke in 1996. 9. Dysphagia, esophageal strictures with dilatation. 10.Ivett esophagitis. 11.Hiatal hernia. 12.Chronic pain syndrome. 13.Osteoarthritis. 14.Diabetic peripheral neuropathy. 15.Urinary incontinence. PAST SURGICAL HISTORY: 1. Bladder surgery. 2. Cholecystectomy. 3. Coronary bypass in 2007. 4. Cardiac catheterization. 5. Multiple EGDs and dilatations. 6. Bilateral cataracts removed. 7. Open cholecystectomy. SOCIAL HISTORY: Uses a walker if she goes out. No smoking. No alcohol. . Lives with her . FAMILY HISTORY: Father of cirrhosis. He was an alcoholic. HOME MEDICATIONS: 1. Metformin 1000 mg p.o. b.i.d. 2. Glyburide 10 mg p.o. b.i.d. 3. Norvasc 5 mg p.o. b.i.d. 4. Vitamin C with biotin 1 tablet p.o. daily. 5. Minipress 1 mg p.o. b.i.d. 6. Nitrostat 0.4 sublingually q.5 p.r.n. 7. Meclizine 12.5 q.8 p.r.n. 8. Claritin 10 mg p.o. daily. 9. Synthroid 50 mcg p.o. daily. 10.Neurontin 300 mg p.o. t.i.d. 11.Pepcid 20 mg p.o. daily. 12.Cranberry 500 mg p.o. daily. 13.Plavix 75 mg p.o. daily. 14.Vitamin D3 2000 units p.o. daily. 15.Benazepril 20 mg p.o. daily. 16.Lipitor 40 mg at bedtime. ALLERGIES: 1. ASPIRIN. 2. IV CONTRAST DYE. 3. SHELLFISH. PHYSICAL EXAMINATION: VITAL SIGNS ON PRESENTATION: Temperature 98, pulse 54, aspirin 19, blood pressure 229/95, pulse ox 97% on room air. Repeat blood pressure down to 129/62. GENERAL APPEARANCE: Well built; BMI 30.3. Sitting up in bed. Tired-appearing. EYES: Chronically injured right eye. HEENT: External appearance of nose and ears normal. Oral cavity normal, slightly dry. NECK: JVD not raised. Mass not palpable. RESPIRATORY: Effort normal; LUNGS: Fair air entry. CARDIOVASCULAR: First and second sounds normal. No edema. ABDOMEN: Soft, nontender. Liver and spleen not palpable. LYMPHATIC: No lymph node palpable in neck or axillae. PSYCHIATRY: Alert and oriented x3. Mood and affect normal. NEUROLOGICAL: Pupils equal. Cranial nerves grossly intact. Power on the left side is 4/5. INVESTIGATIONS: Potassium 4.5, BUN 26, creatinine 1.04. Chest x-ray: nil acute. ASSESSMENT: 1. This is a patient who has had multiple esophageal dilatations in the past; now presents with difficulty in swallowing for last 2 days, not able to keep much down; some crushed pills; probably needs esophageal dilatation for the stricture yet again. 2. Coronary artery disease with prior history of coronary artery bypass. 3. Left-sided weakness from a prior stroke. 4. Diabetes mellitus, type 2, on oral hypoglycemic. 5. Chronically blind in the right eye. 6. Hyperlipidemia. 7. Essential hypertension. 8. Hypothyroidism. 9. Hiatal hernia. 10.Chronic pain syndrome. 11.Primary osteoarthritis in multiple joints. 12.Diabetes mellitus causing peripheral neuropathy and retinopathy. 13.Chronic urinary stress incontinence. 14.Obesity; body mass index more than 30. PLAN: Oral home medications will be resumed, to be given crushed and with applesauce. The patient will be kept n.p.o. except for the above after midnight for possible esophageal dilatation by GI. Care was discussed the patient. Accu-Cheks will be followed. MMODL / IJN: [id number] /
[2017-07-28] MEDS ORDERED: LEVOTHYROXINE 50 MCG TAB PO SCH (06:30)
[2017-07-28] MEDS: INSULIN ASPART 100 UNIT/ML 1 ML 10 ML VIAL SQ SCH ×3 (07:27→18:04)
[2017-07-28 07:28] LABS: Glucose,Whole Blood 76 mg/dL (75-99)
[2017-07-28 07:44] VITALS: RESP 18
[2017-07-28] MEDS ORDERED: LISINOPRIL 20 MG TAB PO SCH (09:00)
[2017-07-28] MEDS: amLODIPine 5 MG TAB PO SCH (09:01)
[2017-07-28] MEDS: GABAPENTIN 300 MG CAP PO SCH ×2 (09:01→18:07)
[2017-07-28] MEDS: PRAZOSIN 1 MG CAP PO SCH (09:01)
[2017-07-28] MEDS: PANTOPRAZOLE 40 MG/10 ML VIAL IVP SCH (09:01)
[2017-07-28 09:32] LABS: Anion Gap 10 mmol/L; Blood Urea Nitrogen 15 mg/dL (7-17); Calcium 8.5 mg/dL (8.4-10.2); Carbon Dioxide 22 mmol/L (22-30); Chloride 114 mmol/L (98-107); Glucose 78 mg/dL (74-99); Magnesium 1.2 mg/dL (1.6-2.3); Potassium 4.1 mmol/L (3.5-5.1); Sodium 146 mmol/L (137-145)
--- NOTE | 2017-07-28 10:57 | P.CONS ---
History of Present Illness - Reason for Consult Consult date: 07/28/17 Dysphagia Requesting physician: Elan Nagel - History of Present Illness 82-year-old female with a history obstructive dysphagia esophagus stricture requiring multiple EGDs/dilations disease admitted with recurrent dysphagia. Patient underwent EGD evaluation January 2017 for obstructive dysphagia with findings of impacted meat in the distal esophagus captured with snare, hiatal hernia and benign esophageal stricture not restricting the advancement of the endoscope. Denies hematemesis hematochezia melena. Symptoms stasrted a few days ago more difficulty qwith solids than liquids. Sensation of "food stuck mid chest". Her last solid meal was pancakes and toast 2 days ago. Few nonbloody food emesis yesterday. Afebrile. Last dose of Plavix 2 days ago. Review of Systems RConstitutional: Denies fever, chills, sweats, weight gain, or loss. HEENT: Negative for migraines, blurred vision or loss, earaches, drainage, tinnitus, oral mucosal lesions, dysphagia, or odynophagia. CARDIAC: CAD. Hypodense. Hypertension. Negative for chest pain, arrhythmias, or palpitation. RESPIRATORY: Negative for shortness of breath, hemoptysis, cough, or sputum production. GI: See HPI for pertinent findings. : Negative for hematuria, urgency, frequency, polyuria, or dysuria. GYNc: Denies possibility of . Negative vaginal discharge. MUSCULOSKELETAL: Negative for muscle aches, swelling, arthritis, and arthralgias. NEUROLOGIC: CVA left-sided weakness. ENDOCRINE: Diabetes mellitus. Hypothyroidism. SKIN: Negative for rash or itching. PSYCHIATRIC: Negative history for depression and anxiety Past Medical History Past Medical History: Coronary Artery Disease (CAD), Chest Pain / Angina, CVA/ TIA, Diabetes Mellitus, Eye Disorder, Hyperlipidemia, Hypertension, Thyroid Disorder Additional Past Medical History / Comment(s): CVA-1996 pt states she still has L arm and L leg weakness, NIDDM type II, dysphagia, esophageal strictures with dilations, colten esophagitis, hiatal hernia, chronic pain syndrome ( generalized pain), hypothyroidism, arthiritis, diabetic peripheral neuropathy, bilateral hand numbness and tingling, bilateral carpal tunnel syndrome, anemia, DIABETIC RETINOPATHY bilaterally, blind in R eye, UTIs, urinatry leakage, sinus problems. History of Any Multi-Drug Resistant Organisms: None Reported Past Surgical History: Bladder Surgery, Cholecystectomy, Coronary Bypass/CABG, Heart Catheterization, Hysterectomy Additional Past Surgical History / Comment(s): CABG-2007, Ccath 2007, multiple EGDs/dilations with biopsies, COLONOSCOPY. BILAT CATRACTS REMOVED, open cholecystectomy, D&C, bladder suspension Past Anesthesia/Blood Transfusion Reactions: Motion Sickness, Postoperative Nausea & Vomiting (PONV) Smoking Status: Never smoker - Past Family History Father Family Medical History: Liver Disease Additional Family Medical History / Comment(s): Father of cirrhosis. He was a drinker. Mother Family Medical History: Unable to Obtain Additional Family Medical History / Comment(s): Pt states she does not know her mother's medical history. Daughter(s) Family Medical History: Cancer Medications and Allergies Home Medications Medication Instructions Recorded Confirmed Type Benazepril HCl 20 mg PO DAILY 11/05/13 07/27/17 History Clopidogrel Bisulfate [Plavix] 75 mg PO DAILY 11/05/13 07/27/17 History glyBURIDE [Diabeta] 10 mg PO BID 11/05/13 07/27/17 History Cholecalciferol [Vitamin D3] 2,000 unit PO DAILY 02/05/15 07/27/17 History Atorvastatin Calcium [Lipitor] 40 mg PO HS 02/18/16 07/27/17 History Cranberry Fruit Extract [Cranberry] 500 mg PO DAILY 02/18/16 07/27/17 History amLODIPine BESYLATE [Norvasc] 5 mg PO BID 02/18/16 07/27/17 History Levothyroxine Sodium [Synthroid] 50 mcg PO DAILY 01/07/17 07/27/17 History Loratadine [Claritin] 10 mg PO DAILY 01/07/17 07/27/17 History Meclizine HCl 12.5 mg PO Q8H PRN 01/07/17 07/27/17 History Nitroglycerin Sl Tabs [Nitrostat] 0.4 mg SUBLINGUAL Q5M PRN #20 tab 02/07/17 Rx Famotidine [Pepcid] 20 mg PO DAILY 07/27/17 07/27/17 History Gabapentin [Neurontin] 300 mg PO TID 07/27/17 07/27/17 History Prazosin [Minipress] 1 mg PO BID 07/27/17 07/27/17 History Vitamin C/Biotin [Hair, Skin and 1 tab PO DAILY 07/27/17 07/27/17 History Nails] metFORMIN HCL [metFORMIN HCL ER] 1,000 mg PO AC-BID 07/27/17 07/27/17 History Allergies Allergy/AdvReac Type Severity Reaction Status Date / Time aspirin Allergy Rash/Hives Verified 07/27/17 10:23 Iodinated Contrast- Oral and Allergy Rash/Hives Verified 07/27/17 10:23 IV Dye [Iodinated Contrast Media - IV Dye] Iodine and Iodide Containing Allergy Rash/Hives Verified 07/27/17 10:23 Produc shellfish derived [Shellfish] Allergy Rash/Hives Verified 07/27/17 10:23 Physical Exam Vitals: Vital Signs Temp Pulse Pulse Resp BP BP Pulse Ox 07/28/17 07:00 97.3 F L 68 18 169/76 97 07/27/17 22:14 97.3 F L 59 L 16 167/69 98 07/27/17 21:51 73 16 07/27/17 14:45 96.8 F L 73 16 129/62 98 07/27/17 13:48 63 18 169/72 98 07/27/17 13:33 96 18 205/83 96 07/27/17 10:33 20 07/27/17 10:06 98.0 F 74 19 229/95 97 Intake and Output 07/27/17 07/28/17 07/28/17 22:59 06:59 14:59 Intake Total 0 Balance 0 Intake: Oral 0 Other: # Voids 1 3 Weight 70.307 kg General appearance: The patient is alert, oriented, in no acute distress. HET: Head is normocephalic and atraumatic. Pupils are equal and reactive. Oropharynx is clear without lesions. Neck: Supple without lymphadenopathy. Trachea midline. Heart: S1 S2. Regular rate and rhythm. Lungs: No crackles or wheezes are heard. Abdomen: Soft, nontender, nondistended with bowel sounds. No peritoneal signs. No palpable organomegaly or masses. Extremities: Normal skin color and turgor. No cyanosis, rash, ulceration, clubbing, or edema. Radial and pedal pulses are 2/4 bilaterally. Neurological: No focal deficits. Strength and sensation are grossly intact. Left-sided weakness. Results CBC & Chem 7: 07/28/17 08:34 Labs: Abnormal Lab Results - Last 24 Hours (Table) 07/27/17 07/28/17 Range/Units 11:33 08:34 Sodium 146 H (137-145) mmol/L Chloride 108 H 114 H (98-107) mmol/L BUN 26 H (7-17) mg/dL Glucose 122 H (74-99) mg/dL Magnesium 1.1 L 1.2 L (1.6-2.3) mg/dL Assessment and Plan (1) Dysphagia Narrative/Plan: Possible foreign body possible worsening distal esophageal stricture disease. Current Visit: No Status: Acute Code(s): R13.10 - DYSPHAGIA, UNSPECIFIED SNOMED Code(s): 58237605 (2) History of esophageal stricture Current Visit: Yes Status: Acute Code(s): Z87.19 - PERSONAL HISTORY OF OTHER DISEASES OF THE DIGESTIVE SYSTEM SNOMED Code(s): 147935629 (3) H/O: CVA (cerebrovascular accident) Narrative/Plan: Antiplatelet medications on hold Current Visit: Yes Status: Chronic Code(s): Z86.73 - PRSNL HX OF TIA (TIA), AND CEREB INFRC W/O RESID DEFICITS SNOMED Code(s): 981895418 Plan: 1. EGD evaluation. 2. Protonix IV 40 mg daily. The cnc milling machinist has discussed the risks, benefits and alternative therapies for the above-mentioned procedure and for both sedation/analgesia as well as necessary blood product administration, if indicated, as they pertain to this patient. The patient has indicated understanding and acceptance of the risks and procedures discussed. Thank you for this kind referral and the opportunity to participate in the care of your patient. This consultation was discussed with Dr. Zavaleta. The impression and plan of care have been directed as dictated.
[2017-07-28 12:38] LABS: Glucose,Whole Blood 75 mg/dL (75-99)
[2017-07-28] MEDS ORDERED: Magnesium Replacement Protocol 1 EACH MISC MISCELLANE PRN (13:51)
[2017-07-28] MEDS ORDERED: DEXTROSE 5%-0.9% NACL 1,000 ML IV SCH (14:15)
[2017-07-28] MEDS: SODIUM CHLORIDE 0.9% 1,000 ML IV SCH (15:30)
[2017-07-28] MEDS: MAGNESIUM SULFATE-D5W PMX 1 GM in DEXTROSE/WATER 1 100ML.BAG IVPB SCH ×2 (15:36→18:04)
[2017-07-28 15:42] VITALS: BP 170/71; PULSE 70; TEMP 97.5
[2017-07-28] MEDS ORDERED: LIDOCAINE 1% INJ 10MG/ML (20 ML MDV) ONE (16:23)
[2017-07-28] MEDS ORDERED: PROPOFOL 10 MG/ML 20 ML VIAL IV ONE (16:23)
[2017-07-28] MEDS ORDERED: IV FLUID CONTINUATION 700 ML IV ONE (16:25)
[2017-07-28 17:40] LABS: Glucose,Whole Blood 126 mg/dL (75-99)
[2017-07-28] MEDS ORDERED: MAGNESIUM OXIDE 400 MG TAB PO STA (17:41)
--- NOTE | 2017-07-28 17:58 | P.PCN ---
Date of Procedure: 07/28/17 Procedure(s) Performed: Procedure: Esophagogastroduodenoscopy and biopsy and esophageal dilation using the Microvasive [id number] balloon dilator size 12-15 mm to an inflation of 13.5 mm Preoperative diagnosis: Dysphagia and history of esophageal stricture. Postoperative diagnosis: 1. Hiatal hernia and benign esophageal stricture dilated up to 13.5 mm. 2. Mild gastritis and duodenitis. 3. Biopsy obtained from the antrum. Preparation sedation: Was provided by anesthesia. Brief clinical history: The patient is an 82-year-old female with history of obstructive dysphagia and esophageal stricture that required multiple EGDs/ dilations in the past, the last was in 2009, was admitted with recurrent dysphagia. Patient underwent EGD evaluation January 2017 for obstructive dysphagia with findings of impacted meat in the distal esophagus captured with snare, hiatal hernia and benign esophageal stricture not restricting the advancement of the endoscope. Denies hematemesis, hematochezia or melena. Symptoms started a few days ago more difficulty with solids than liquids. Sensation of "food stuck mid chest". Her last solid meal was pancakes and toast 2 days prior to admission. Had few nonbloody food emesis yesterday. Afebrile. Last dose of Plavix 2 days ago. The details are summarized in the history and physical and dictated consultation and progress notes. Procedure: With the patient on her left lateral decubitus position and after informed consent and adequate sedation, I passed the Olympus-GIF 160 video upper endoscope through the cricopharyngeus down the esophagus. GE junction was around 36 cm from the incisors and there was a little hesitancy while passing the endoscope into that area. The endoscope was then passed into the stomach through a sliding hiatal hernia. The area in the distal esophagus at this point appeared friabile consistent with partial dilation by just the passing of the endoscope. The stomach was then insufflated with air and inspected in detail including the retroflex view in the cardia. The endoscope was passed through pylorus into the duodenum. Both the stomach and duodenum showed some mottling and erythema consistent with mild gastritis and duodenitis but there were no ulcers, gastric obstruction or bleeding. In the retroflex view in the cardia I noted no masses or tumors. At this point, I proceeded to dilate the stricture. I passed the Microvasive [id number]-[id number] balloon dilator size 12-15 mm and centered it at the level of the stricture in the distal esophagus and inflated it in a stepwise fashion, first to 12 mm then to 13.5 mm. Satisfactory dilation was accomplished and there was some oozing of blood at the area of dilation consistent with satisfactory dilation, then the endoscope was withdrawn. The patient tolerated the procedure well. Plan: The patient was reassured. Will allow clear liquid diet today and advance to full fluids then to diet as tolerated. Further plans, including future dilation, will be made based on her course.
--- NOTE | 2017-07-28 19:39 | DS ---
DISCHARGE SUMMARY DATE OF ADMISSION: July 27, 2017. DATE OF DISCHARGE: July 28, 2017. FINAL DIAGNOSES: 1. Acute dysphagia due to esophageal stricture status post dilatation. 2. Coronary artery disease with prior history of coronary artery bypass. 3. 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 4. Diabetes mellitus type 2 on oral hypoglycemic. 5. 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 6. Hyperlipidemia. 7. Essential hypertension. 8. Hypothyroidism. 9. Hiatal hernia. 10.Chronic pain syndrome. 11.Primary osteoarthritis multiple joints. 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 13.Chronic urinary stress incontinence. 14.Obesity; BMI more than 30. HOSPITAL COURSE: This is a patient who has had previous dilatation presented with difficulty in swallowing. Did undergo endoscopy by Dr. Zavaleta who I spoke to. It was dilated pretty well. Normally they take clear liquids for 24 hours and then normally this is done as an outpatient procedure. Earlier today the patient is otherwise comfortable. Lungs fair entry. Cardiovascular first and second sounds normal. I spoke to nurse. The patient tolerated some liquids and a diet. Vital signs stable. Patient can be discharged home. Otherwise, she can go home tomorrow. DC MEDICATIONS: 1. Benazepril 20 mg p.o. daily. 2. Plavix 75 p.o. daily. 3. DiaBeta 10 mg p.o. b.i.d. 4. Vitamin D3 2000 units p.o. daily. 5. Lipitor 40 mg q.h.s. 6. Cranberry 500 mg p.o. daily. 7. Norvasc 5 mg p.o. b.i.d. 8. Synthroid 50 mcg p.o. daily. 9. Meclizine 12.5 p.o. q.8 hours. 10.Nitrostat 0.4 sublingual q.5 p.r.n. 11.Pepcid 20 mg p.o. daily. 12.Neurontin 300 mg p.o. t.i.d. 13.Minipress 1 mg p.o. b.i.d. 14.Vitamin C 1 tab p.o. daily. 15.Metformin ER 1000 mg p.o. b.i.d. Follow up with Dr. Ramirez in 3 days, Dr. Zavaleta in 1 week. Diet: Clear liquids and then advance as tolerated. Discussion and discharge planning more than [address] Ramirez. MMODL / IJN: [id number] /
== END 2017-07-28 19:43 | disposition home health service (06) ==
LOC: EC 10:05 → INTOOBSV 13:20 → 4MS4W 13:20
PROVIDERS: ADMIT Hospitalist; ATTEND Hospitalist
DX: K22.2 Esophageal obstruction (principal); I25.10 Atherosclerotic heart disease of native coronary artery without angina pectoris; Z95.1 Presence of aortocoronary bypass graft; I69.354 Hemiplegia and hemiparesis following cerebral infarction affecting left non-dominant side; E11.649 Type 2 diabetes mellitus with hypoglycemia without coma; E78.5 Hyperlipidemia, unspecified; I10 Essential (primary) hypertension; E03.9 Hypothyroidism, unspecified; K44.9 Diaphragmatic hernia without obstruction or gangrene; G89.4 Chronic pain syndrome; M19.91 Primary osteoarthritis, unspecified site; N39.3 Stress incontinence (female) (male); E83.42 Hypomagnesemia; E66.9 Obesity, unspecified; Z68.30 Body mass index [BMI] 30.0-30.9, adult; H54.61 Unqualified visual loss, right eye, normal vision left eye; E11.42 Type 2 diabetes mellitus with diabetic polyneuropathy; E11.319 Type 2 diabetes mellitus with unspecified diabetic retinopathy without macular edema; K29.80 Duodenitis without bleeding; K29.50 Unspecified chronic gastritis without bleeding; T75.3XXA Motion sickness, initial encounter; Z88.6 Allergy status to analgesic agent; Z91.041 Radiographic dye allergy status; Z91.013 Allergy to seafood; Z91.048 Other nonmedicinal substance allergy status; Z79.84 Long term (current) use of oral hypoglycemic drugs; Z79.899 Other long term (current) drug therapy; Z79.02 Long term (current) use of antithrombotics/antiplatelets; Z80.9 Family history of malignant neoplasm, unspecified; Z87.440 Personal history of urinary (tract) infections
CPT/HCPCS: 99285; 96365 ×2; 96375 ×4; 96376; 96361 ×2; 96366; 36415; 93005; 88305; 80053; 80048; 82150; 82550; 82553; 83690; 83735 ×2; 84484; 88342; 71046; 43239; 43249; G0378 ×2; J0360; J2405; J2001; J3475 ×2; J2704; C9113 ×2

== ENCOUNTER 2018-01-20 13:58 | Inpatient (IN) | payer MEDICARE, OTHER ==
[2018-01-20] MEDS ORDERED: SODIUM CHLORIDE 0.9% 1,000 ML IV STA (14:40)
--- NOTE | 2018-01-20 14:43 | ED ---
General Adult HPI - General Chief complaint: Fall Stated complaint: Fall Time Seen by Provider: 01/20/18 14:18 Source: patient, family, EMS, RN notes reviewed Mode of arrival: EMS Limitations: no limitations - History of Present Illness Initial comments: Patient is a pleasant 82-year-old female presenting to the emergency department after a fall. Fall was outside in front of the patient's house. Patient does not recall the fall very well. Family is present at this time however states they were not present when the patient fell. Unclear how the patient fell. Patient does admit to having a headache. Last tetanus immunization was less than one year. Patient denies any confusion or weakness. Patient denies any area of injury other than her head. - Related Data Home Medications Medication Instructions Recorded Confirmed Benazepril HCl 20 mg PO BID 11/05/13 01/20/18 Clopidogrel Bisulfate [Plavix] 75 mg PO DAILY 11/05/13 01/20/18 glyBURIDE [Diabeta] 10 mg PO BID-W/MEALS 11/05/13 01/20/18 Cholecalciferol [Vitamin D3] 3,000 unit PO DAILY 02/05/15 01/20/18 Atorvastatin Calcium [Lipitor] 40 mg PO HS 02/18/16 01/20/18 Cranberry Fruit Extract [Cranberry] 8,400 mg PO DAILY 02/18/16 01/20/18 amLODIPine BESYLATE [Norvasc] 5 mg PO BID 02/18/16 01/20/18 Levothyroxine Sodium [Synthroid] 50 mcg PO DAILY 01/07/17 01/20/18 Meclizine HCl 12.5 mg PO Q8H PRN 01/07/17 01/20/18 Famotidine [Pepcid] 20 mg PO DAILY 07/27/17 01/20/18 Prazosin [Minipress] 1 mg PO BID 07/27/17 01/20/18 Acetaminophen [Tylenol] 500 mg PO BID PRN 01/18/18 01/20/18 Brimonidine Tartrate/Timolol 1 drop BOTH EYES DAILY 01/20/18 01/20/18 [Combigan 0.2%-0.5% Eye Drops] Latanoprost Ophth [Xalatan 0.005%] 1 drops BOTH EYES HS 01/20/18 01/20/18 metFORMIN HCL 1,000 mg PO BID 01/20/18 01/20/18 Allergies Allergy/AdvReac Type Severity Reaction Status Date / Time aspirin Allergy Rash/Hives Verified 01/20/18 15:32 Iodinated Contrast- Oral and Allergy Rash/Hives Verified 01/20/18 15:32 IV Dye [Iodinated Contrast Media - IV Dye] Iodine and Iodide Containing Allergy Rash/Hives Verified 01/20/18 15:32 Produc shellfish derived [Shellfish] Allergy Rash/Hives Verified 01/20/18 15:32 Review of Systems ROS Statement: Those systems with pertinent positive or pertinent negative responses have been documented in the HPI. ROS Other: All systems not noted in ROS Statement are negative. Constitutional: Denies: fever Eyes: Denies: eye pain ENT: Denies: ear pain Respiratory: Denies: cough Cardiovascular: Denies: chest pain Endocrine: Denies: fatigue Gastrointestinal: Denies: abdominal pain Genitourinary: Denies: dysuria Musculoskeletal: Denies: back pain Skin: Denies: rash Neurological: Reports: headache. Denies: weakness, confusion Past Medical History Past Medical History: Coronary Artery Disease (CAD), Chest Pain / Angina, CVA/ TIA, Diabetes Mellitus, Eye Disorder, GERD/Reflux, Hyperlipidemia, Hypertension , Osteoarthritis (OA), Thyroid Disorder Additional Past Medical History / Comment(s): 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 History of Any Multi-Drug Resistant Organisms: None Reported Past Surgical History: Bladder Surgery, Cholecystectomy, Coronary Bypass/CABG, Heart Catheterization, Hysterectomy Additional Past Surgical History / Comment(s): CABG-2007, Ccath 2007, multiple EGDs/dilations with biopsies, COLONOSCOPY. Cataracts, D&C, bladder suspension. Past Anesthesia/Blood Transfusion Reactions: Motion Sickness, Postoperative Nausea & Vomiting (PONV) Past Psychological History: No Psychological Hx Reported Smoking Status: Never smoker Past Alcohol Use History: None Reported Past Drug Use History: None Reported - Past Family History Father Family Medical History: Liver Disease Additional Family Medical History / Comment(s): Father of cirrhosis. He was a drinker. Mother Family Medical History: Unable to Obtain Additional Family Medical History / Comment(s): Pt states she does not know her mother's medical history. Son(s) Family Medical History: Renal Disease Daughter(s) Family Medical History: Cancer General Exam Limitations: no limitations General appearance: alert, in no apparent distress Head exam: Present: other (History of scalp laceration and tenderness) Eye exam: Present: other (Left pupil round and reactive. Right eye is atrophy.) ENT exam: Present: normal oropharynx Neck exam: Present: normal inspection. Absent: tenderness Respiratory exam: Present: normal lung sounds bilaterally, chest wall tenderness (Left sternal region) Cardiovascular Exam: Present: regular rate, normal rhythm GI/Abdominal exam: Present: soft. Absent: tenderness Extremities exam: Present: normal inspection, full ROM. Absent: tenderness Neurological exam: Present: alert, CN II-XII intact. Absent: motor sensory deficit Expanded Neurological exam: Present: protecting the airway Patient oriented to: Present: person, place, time Motor strength exam: RUE: 5, LUE: 5, RLE: 5, LLE: 5 Eye Response: (4) open spontaneously Motor Response: (6) obeys commands Verbal Response: (5) oriented Psychiatric exam: Present: normal affect, normal mood Skin exam: Present: normal color Course Vital Signs 01/20/18 01/20/18 01/20/18 14:12 15:16 16:24 Temperature 99.0 F Pulse Rate 85 74 74 Respiratory 16 18 18 Rate Blood Pressure 204/86 214/80 183/100 O2 Sat by Pulse 96 98 98 Oximetry 01/20/18 16:31 Temperature Pulse Rate 74 Respiratory 18 Rate Blood Pressure 206/86 O2 Sat by Pulse 99 Oximetry EKG Findings - EKG Comments: EKG Findings:: Normal sinus rhythm 74. NV 148. QRS 102. QT 418. QTC 463. Normal axis. Septal Q waves. Inverted T waves inferior. Procedures - Laceration Laceration #1 Consent Obtained: verbal consent Time Out Performed: Yes Indication: laceration Site: scalp (Posterior scalp) Size (cm): 3 Description: linear Depth: simple, single layer Pre-repair: wound explored, irrigated extensively Type of Sutures: other ([place]) Size of Sutures: other (5 niall) Patient Tolerated Procedure: well, no complications Medical Decision Making - Medical Decision Making Patient reevaluated. Blood pressure has continued to be a concern. Case was discussed in detail with Dr. Israel, who will admit for Dr. Ramirez. Patient and family are updated. - Lab Data Result diagrams: 01/20/18 14:29 01/20/18 14:29 Lab Results 01/20/18 01/20/18 01/20/18 Range/Units 14:29 14:29 14:29 WBC 6.4 (3.8-10.6) k/uL RBC 3.74 L (3.80-5.40) m/uL Hgb 11.2 L (11.4-16.0) gm/dL Hct 32.8 L (34.0-46.0) % MCV 87.5 (80.0-100.0) fL MCH 29.8 (25.0-35.0) pg MCHC 34.1 (31.0-37.0) g/dL RDW 14.3 (11.5-15.5) % Plt Count 217 (150-450) k/uL Neutrophils % 80 % Lymphocytes % 13 % Monocytes % 5 % Eosinophils % 0 % Basophils % 0 % Neutrophils # 5.1 (1.3-7.7) k/uL Lymphocytes # 0.8 L (1.0-4.8) k/uL Monocytes # 0.3 (0-1.0) k/uL Eosinophils # 0.0 (0-0.7) k/uL Basophils # 0.0 (0-0.2) k/uL PT (9.0-12.0) sec INR (<1.2) APTT (22.0-30.0) sec Sodium 139 (137-145) mmol/L Potassium 4.8 (3.5-5.1) mmol/L Chloride 109 H (98-107) mmol/L Carbon Dioxide 18 L (22-30) mmol/L Anion Gap 12 mmol/L BUN 20 H (7-17) mg/dL Creatinine 1.00 (0.52-1.04) mg/dL Est GFR (CKD-EPI)AfAm 62 (>60 ml/min/1.73 sqM) Est GFR (CKD-EPI)NonAf 53 (>60 ml/min/1.73 sqM) Glucose 203 H (74-99) mg/dL Calcium 9.5 (8.4-10.2) mg/dL Total Bilirubin 0.5 (0.2-1.3) mg/dL AST 21 (14-36) U/L ALT 22 (9-52) U/L Alkaline Phosphatase 67 (38-126) U/L Total Creatine Kinase 92 (30-135) U/L CK-MB (CK-2) 1.8 (0.0-2.4) ng/mL CK-MB (CK-2) Rel Index 2.0 Troponin I <0.012 (0.000-0.034) ng/mL Total Protein 6.8 (6.3-8.2) g/dL Albumin 4.0 (3.5-5.0) g/dL Urine Color Urine Appearance (Clear) Urine pH (5.0-8.0) Ur Specific [place] (1.001-1.035) Urine Protein (Negative) Urine Glucose (UA) (Negative) Urine Ketones (Negative) Urine Blood (Negative) Urine Nitrite (Negative) Urine Bilirubin (Negative) Urine Urobilinogen (<2.0) mg/dL Ur Leukocyte Esterase (Negative) 01/20/18 01/20/18 Range/Units 14:29 15:50 WBC (3.8-10.6) k/uL RBC (3.80-5.40) m/uL Hgb (11.4-16.0) gm/dL Hct (34.0-46.0) % MCV (80.0-100.0) fL MCH (25.0-35.0) pg MCHC (31.0-37.0) g/dL RDW (11.5-15.5) % Plt Count (150-450) k/uL Neutrophils % % Lymphocytes % % Monocytes % % Eosinophils % % Basophils % % Neutrophils # (1.3-7.7) k/uL Lymphocytes # (1.0-4.8) k/uL Monocytes # (0-1.0) k/uL Eosinophils # (0-0.7) k/uL Basophils # (0-0.2) k/uL PT 10.8 (9.0-12.0) sec INR 1.1 (<1.2) APTT 22.5 (22.0-30.0) sec Sodium (137-145) mmol/L Potassium (3.5-5.1) mmol/L Chloride (98-107) mmol/L Carbon Dioxide (22-30) mmol/L Anion Gap mmol/L BUN (7-17) mg/dL Creatinine (0.52-1.04) mg/dL Est GFR (CKD-EPI)AfAm (>60 ml/min/1.73 sqM) Est GFR (CKD-EPI)NonAf (>60 ml/min/1.73 sqM) Glucose (74-99) mg/dL Calcium (8.4-10.2) mg/dL Total Bilirubin (0.2-1.3) mg/dL AST (14-36) U/L ALT (9-52) U/L Alkaline Phosphatase (38-126) U/L Total Creatine Kinase (30-135) U/L CK-MB (CK-2) (0.0-2.4) ng/mL CK-MB (CK-2) Rel Index Troponin I (0.000-0.034) ng/mL Total Protein (6.3-8.2) g/dL Albumin (3.5-5.0) g/dL Urine Color Light Yellow Urine Appearance Clear (Clear) Urine pH 5.5 (5.0-8.0) Ur Specific [place] 1.004 (1.001-1.035) Urine Protein Negative (Negative) Urine Glucose (UA) Negative (Negative) Urine Ketones Negative (Negative) Urine Blood Negative (Negative) Urine Nitrite Negative (Negative) Urine Bilirubin Negative (Negative) Urine Urobilinogen <2.0 (<2.0) mg/dL Ur Leukocyte Esterase Negative (Negative) - Radiology Data Radiology results: report reviewed (Computed tomography scan of the cervical spine shows no acute fracture. Degenerative changes. Computed tomography scan of the brain shows no acute traumatic abnormality. Some chronic changes redemonstrated.) Interpreted by me: Chest x-ray interpreted by myself shows postoperative changes. No acute process. Radiology interpretation is pending. Disposition Clinical Impression: Syncope, Laceration of scalp, Hypertension Disposition: ADMITTED IP TO THIS HOSP Is patient prescribed a controlled substance at d/c from ED?: No Referrals: Esvin Ramirez DO [Primary Care Provider] - 1-2 days Decision Time: 16:49
[2018-01-20 15:00] LABS: INR 1.1 (<1.2); Partial Thromboplastin Time 22.5 sec (22.0-30.0); Prothrombin Time 10.8 sec (9.0-12.0)
[2018-01-20 15:02] LABS: Basophils % (A) 0 %; Eosinophils % (A) 0 %; HCT 32.8 % (34.0-46.0); HGB 11.2 gm/dL (11.4-16.0); Lymphocytes # (A) 0.8 k/uL (1.0-4.8); Lymphocytes % (A) 13 %; MCH 29.8 pg (25.0-35.0); MCHC 34.1 g/dL (31.0-37.0); MCV 87.5 fL (80.0-100.0); Mean Platelet Volume 7.3; Monocytes # (A) 0.3 k/uL (0-1.0); Monocytes % (A) 5 %; Neutrophils # (A) 5.1 k/uL (1.3-7.7); Neutrophils % (A) 80 %; Platelet Count 217 k/uL (150-450); RBC 3.74 m/uL (3.80-5.40); RDW 14.3 % (11.5-15.5); WBC 6.4 k/uL (3.8-10.6)
[2018-01-20 15:07] LABS: Calcium 9.5 mg/dL (8.4-10.2); Creatine Kinase 92 U/L (30-135); Potassium 4.8 mmol/L (3.5-5.1); Total Bilirubin 0.5 mg/dL (0.2-1.3); Total Protein 6.8 g/dL (6.3-8.2)
[2018-01-20] MEDS ORDERED: ENALAPRILAT 1.25 MG/ML 1 ML VIAL IVP STA ×2 (15:14→16:27)
[2018-01-20 15:18] LABS: Creatine Kinase MB 1.8 ng/mL (0.0-2.4); Troponin I <0.012 ng/mL (0.000-0.034)
--- NOTE | 2018-01-20 15:49 | CT ---
EXAMINATION TYPE: CT brain cspine wo con DATE OF EXAM: 01/20/2018 COMPARISON: CT brain February 06, 2017. CT cervical spine October 22, 2010. HISTORY: Fall injury with head laceration and neck pain. CT DLP: 1301 mGycm. Automated Exposure Control for Dose Reduction was Utilized. TECHNIQUE: CT scan of the head and cervical spine are performed without contrast. FINDINGS: There is no acute intracranial hemorrhage or midline shift identified. Ventricular and patiño lcal prominence consistent with mild age-related cerebral atrophy is noted. Low-attenuation periventr icular white matter is present. Bilateral basal ganglia calcifications are present. Deformed atrophic right globe redemonstrated. Scleral buckle left globe again seen. Visualized paranasal sinuses are c lear. Calvarium is intact. Hyperostosis frontalis is present. Cervical spine is visualized in its entirety from C1 through upper thoracic levels and demonstrates s atisfactory alignment without evidence of acute fracture or dislocation. Prevertebral soft tissue ap pears within normal limits. The C1-C2 articulation is within normal limits on the coronal images. Ve rtebral body heights are maintained. There is mild to moderate disc space narrowing and spurring C4-C 5 and C5-C6 levels now identified more prominent from prior study. Spinal canal is grossly preserved. Review of axial images shows multilevel left-sided uncovertebral facet degenerative changes C3-C4 an d C4-C5 levels. Moderate to severe calcified plaque at bilateral carotid bulb level increased in prom inence from prior. Thyroid gland is stable and slightly small in size. Lung apices are clear. IMPRESSION: 1. There is no acute fracture or dislocation evident in the cervical spine. Interval progression of d egenerative changes noted. 2. No acute intracranial hemorrhage or midline shift is seen. There is mild diffuse age-related cereb ral atrophy and chronic small vessel ischemic change redemonstrated without significant interval nicole ge.
[2018-01-20 16:01] LABS: Appearance,Urine Clear (Clear); Bilirubin,Urine Negative (Negative); Blood,Urine Negative (Negative); Color,Urine Light Yellow; Glucose,Urine (UA) Negative (Negative); Ketones,Urine Negative (Negative); Leukocyte Esterase,Urine Negative (Negative); Nitrite,Urine Negative (Negative); PH, Urine 5.5 (5.0-8.0); Protein,Urine Negative (Negative); Specific Gravity,Urine 1.004 (1.001-1.035); Urobilinogen,Urine <2.0 mg/dL (<2.0)
[2018-01-20] MEDS ORDERED: ENALAPRILAT 1.25 MG/ML 1 ML VIAL IVP PRN (16:49)
[2018-01-20] MEDS ORDERED: NALOXONE 0.4 MG/ML 1 ML VIAL IV PRN (16:50)
--- NOTE | 2018-01-20 16:58 | XR ---
EXAMINATION TYPE: XR chest 2V DATE OF EXAM: 01/20/2018 COMPARISON: Chest x-ray July 27, 2017. HISTORY: Chest pain after falling tree today. TECHNIQUE: Frontal and lateral views of the chest are obtained. FINDINGS: Post-CABG changes with mediastinal clips and sternal wires is redemonstrated. There is chr onic parenchymal change without suspicious new focal air space opacity, pleural effusion, or pneumoth orax seen. The cardiac silhouette size is stable and mildly enlarged. The osseous structures are d emineralized. There is moderate multilevel spurring in the thoracic spine. IMPRESSION: Chronic changes and mild cardiomegaly without acute pulmonary process. No significant ch kylie from prior.
[2018-01-20] MEDS ORDERED: hydrALAZINE HCL 20 MG/ML 1 ML VIAL IVP STA (19:26)
[2018-01-20] MEDS: SODIUM CHLORIDE 0.9% 1,000 ML IV SCH (20:10)
[2018-01-20 21:27] LABS: Creatine Kinase 74 U/L (30-135)
[2018-01-20 21:41] LABS: Creatine Kinase MB 1.4 ng/mL (0.0-2.4); Troponin I <0.012 ng/mL (0.000-0.034)
[2018-01-20 23:55] VITALS: BMI 30.2
[2018-01-21] MEDS ORDERED: MECLIZINE 12.5 MG TAB PO PRN (00:22)
[2018-01-21] MEDS: ACETAMINOPHEN TAB 325 MG TAB PO PRN (01:40)
[2018-01-21] MEDS: amLODIPine 5 MG TAB PO SCH ×3 (01:43→21:31)
[2018-01-21 03:11] LABS: Creatine Kinase 71 U/L (30-135)
[2018-01-21 03:25] LABS: Creatine Kinase MB 1.3 ng/mL (0.0-2.4); Troponin I <0.012 ng/mL (0.000-0.034)
[2018-01-21] MEDS: Acetaminophen-Codeine 300-30mg TAB PO PRN ×2 (04:23→12:06)
[2018-01-21] MEDS: LEVOTHYROXINE 50 MCG TAB PO SCH (06:35)
[2018-01-21] MEDS: glipiZIDE 10 MG TAB PO SCH ×2 (06:35→17:55)
[2018-01-21] MEDS: PRAZOSIN 1 MG CAP PO SCH ×2 (08:37→21:31)
[2018-01-21] MEDS: CHOLECALCIFEROL 1,000 UNIT TAB PO SCH (08:37)
[2018-01-21] MEDS: TIMOLOL BOTH EYES SCH (08:37)
[2018-01-21] MEDS: FAMOTIDINE 20 MG TAB PO SCH (08:37)
[2018-01-21] MEDS: metFORMIN 500 MG TAB PO SCH ×2 (08:37→21:31)
[2018-01-21] MEDS: LISINOPRIL 20 MG TAB PO SCH ×2 (08:37→21:31)
[2018-01-21] MEDS: BRIMONIDINE TARTRATE BOTH EYES SCH (08:37)
--- NOTE | 2018-01-21 14:11 | P.CRDCN ---
History of Present Illness Consult date: 01/21/18 Chief complaint: Syncope History of present illness: This is a pleasant and fragile 82-year-old female patient with a past medical history significant for coronary artery disease and status post coronary artery bypass grafting 10 years ago with unknown details, hypertension , dyslipidemia, and multiple comorbidities, was brought to the hospital by ambulance after she had a syncopal episode at home. The patient lives with her at home. She fell at home and she was screaming for help where the neighbors here with her and came in to help her and they found her on the floor. Were not sure if the patient lost her consciousness. According to her family the patient was not eating and drinking well for the last 3-4 weeks because she does have dysphagia and difficulty swallowing and she does have history of esophageal stricture requiring her to have diabetes dictation Geoff 6 month period beside that and according to the patient's family the patient was experiencing some chest discomfort on and off for the last several weeks. The patient underwent an EKG which showed sinus rhythm without any ischemic ST or T-wave abnormalities but with some nonspecific changes. 3 sets of cardiac enzymes came in to be unremarkable. The chest x-ray showed no acute abnormalities. A computed tomography scan of the head as well as the neck was performed and showed no acute abnormalities as well. The patient did have an echocardiogram in 2017 and that revealed normal LV function with mild aortic stenosis and mild mitral stenosis. The CBC and BMP are within normal limits. The blood pressure is mildly elevated. 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 History of Any Multi-Drug Resistant Organisms: None Reported Past Surgical History: Bladder Surgery, Cholecystectomy, Coronary Bypass/CABG, Heart Catheterization, Hysterectomy Additional Past Surgical History / Comment(s): CABG-2007, Ccath 2007, multiple EGDs/dilations with biopsies, COLONOSCOPY. Cataracts, D&C, bladder suspension. Past Anesthesia/Blood Transfusion Reactions: Motion Sickness, Postoperative Nausea & Vomiting (PONV) Past Psychological History: No Psychological Hx Reported Additional Psychological History / Comment(s): .. Smoking Status: Never smoker Past Alcohol Use History: None Reported Past Drug Use History: None Reported - Past Family History Father Family Medical History: Liver Disease Additional Family Medical History / Comment(s): Father of cirrhosis. He was a drinker. Mother Family Medical History: Unable to Obtain Additional Family Medical History / Comment(s): Pt states she does not know her mother's medical history. Son(s) Family Medical History: Renal Disease Daughter(s) Family Medical History: Cancer Medications and Allergies Home Medications Medication Instructions Recorded Confirmed Type Benazepril HCl 20 mg PO BID 11/05/13 01/20/18 History Clopidogrel Bisulfate [Plavix] 75 mg PO DAILY 11/05/13 01/20/18 History glyBURIDE [Diabeta] 10 mg PO BID-W/MEALS 11/05/13 01/20/18 History Cholecalciferol [Vitamin D3] 3,000 unit PO DAILY 02/05/15 01/20/18 History Atorvastatin Calcium [Lipitor] 40 mg PO HS 02/18/16 01/20/18 History Cranberry Fruit Extract [Cranberry] 8,400 mg PO DAILY 02/18/16 01/20/18 History amLODIPine BESYLATE [Norvasc] 5 mg PO BID 02/18/16 01/20/18 History Levothyroxine Sodium [Synthroid] 50 mcg PO DAILY 01/07/17 01/20/18 History Meclizine HCl 12.5 mg PO Q8H PRN 01/07/17 01/20/18 History Famotidine [Pepcid] 20 mg PO DAILY 07/27/17 01/20/18 History Prazosin [Minipress] 1 mg PO BID 07/27/17 01/20/18 History Acetaminophen [Tylenol] 500 mg PO BID PRN 01/18/18 01/20/18 History Brimonidine Tartrate/Timolol 1 drop BOTH EYES DAILY 01/20/18 01/20/18 History [Combigan 0.2%-0.5% Eye Drops] Latanoprost Ophth [Xalatan 0.005%] 1 drops BOTH EYES HS 01/20/18 01/20/18 History metFORMIN HCL 1,000 mg PO BID 01/20/18 01/20/18 History Allergies Allergy/AdvReac Type Severity Reaction Status Date / Time aspirin Allergy Rash/Hives Verified 01/20/18 15:32 Iodinated Contrast- Oral and Allergy Rash/Hives Verified 01/20/18 15:32 IV Dye [Iodinated Contrast Media - IV Dye] Iodine and Iodide Containing Allergy Rash/Hives Verified 01/20/18 15:32 Produc shellfish derived [Shellfish] Allergy Rash/Hives Verified 01/20/18 15:32 Physical Exam Vitals: Vital Signs Temp Pulse Pulse Resp BP BP Pulse Ox 01/21/18 07:58 99.2 F 76 18 156/76 97 01/21/18 04:00 98.4 F 75 20 151/69 98 01/21/18 00:00 75 20 01/20/18 23:21 100.2 F H 86 16 172/89 95 01/20/18 22:52 86 20 150/63 94 L 01/20/18 21:35 82 18 167/58 95 01/20/18 20:39 78 20 173/61 95 01/20/18 19:30 78 20 187/73 99 01/20/18 18:16 74 16 226/87 10 L 01/20/18 17:42 219/84 01/20/18 16:31 74 18 206/86 99 01/20/18 16:24 74 18 183/100 98 01/20/18 15:16 74 18 214/80 98 01/20/18 14:12 99.0 F 85 16 204/86 96 Intake and Output 01/20/18 01/21/18 01/21/18 22:59 06:59 14:59 Intake Total 500 120 Balance 500 120 Intake: Amount of Fluid Infused ( 500 ml) Oral 120 Other: # Voids 3 3 Weight 70.085 kg 66 kg - Constitutional General appearance: no acute distress - Respiratory Respiratory: bilateral: diminished - Cardiovascular Heart sounds: normal: S1, S2 Abnormal Heart Sounds: systolic murmur Results 01/20/18 14:29 01/20/18 14:29 Cardiac Enzymes 01/20/18 01/20/18 01/20/18 Range/Units 14:29 14:29 20:45 AST 21 (14-36) U/L CK-MB (CK-2) 1.8 1.4 (0.0-2.4) ng/mL Troponin I <0.012 <0.012 (0.000-0.034) ng/mL 01/21/18 Range/Units 02:30 AST (14-36) U/L CK-MB (CK-2) 1.3 (0.0-2.4) ng/mL Troponin I <0.012 (0.000-0.034) ng/mL Coagulation 01/20/18 Range/Units 14:29 PT 10.8 (9.0-12.0) sec APTT 22.5 (22.0-30.0) sec CBC 01/20/18 Range/Units 14:29 WBC 6.4 (3.8-10.6) k/uL RBC 3.74 L (3.80-5.40) m/uL Hgb 11.2 L (11.4-16.0) gm/dL Hct 32.8 L (34.0-46.0) % Plt Count 217 (150-450) k/uL Comprehensive Metabolic Panel 01/20/18 Range/Units 14:29 Sodium 139 (137-145) mmol/L Potassium 4.8 (3.5-5.1) mmol/L Chloride 109 H (98-107) mmol/L Carbon Dioxide 18 L (22-30) mmol/L BUN 20 H (7-17) mg/dL Creatinine 1.00 (0.52-1.04) mg/dL Glucose 203 H (74-99) mg/dL Calcium 9.5 (8.4-10.2) mg/dL AST 21 (14-36) U/L ALT 22 (9-52) U/L Alkaline Phosphatase 67 (38-126) U/L Total Protein 6.8 (6.3-8.2) g/dL Albumin 4.0 (3.5-5.0) g/dL Current Medications Generic Name Dose Route Start Last Admin Trade Name Freq PRN Reason Stop Dose Admin Acetaminophen 650 mg 01/21/18 00:25 01/21/18 01:40 Tylenol Tab PO 650 mg Q6HR PRN Administration Fever and/ or Pain Acetaminophen/Codeine Phosphate 1 each 01/21/18 03:55 01/21/18 12:06 Tylenol #3 PO 1 each Q6HR PRN Administration Pain Amlodipine Besylate 5 mg 01/21/18 00:30 01/21/18 08:37 Norvasc PO 5 mg BID LARRY Administration Atorvastatin Calcium 40 mg 01/22/18 21:00 Lipitor PO HS [facility] Cholecalciferol 3,000 unit 01/21/18 09:00 01/21/18 08:37 Vitamin D3 PO 3,000 unit DAILY [facility] Administration Enalaprilat 1.25 mg 01/20/18 16:49 01/20/18 18:18 Vasotec IVP 1.25 mg Q4HR PRN Administration Blood Pressure - High Famotidine 20 mg 01/21/18 09:00 01/21/18 08:37 Pepcid PO 20 mg DAILY LARRY Administration Glipizide 20 mg 01/21/18 07:30 01/21/18 06:35 Glucotrol PO 20 mg BID-W/MEALS LARRY Administration Sodium Chloride 1,000 mls @ 20 mls/hr 01/20/18 17:00 01/20/18 20:10 Saline 0.9% IV 20 mls/hr .Q24H LARRY Administration Latanoprost 1 drops 01/21/18 21:00 Xalatan 0.005% BOTH EYES HS [facility] Levothyroxine Sodium 50 mcg 01/21/18 06:30 01/21/18 06:35 Synthroid PO 50 mcg DAILY@0630 LARRY Administration Lisinopril 20 mg 01/21/18 09:00 01/21/18 08:37 Zestril PO 20 mg BID LARRY Administration Meclizine HCl 12.5 mg 01/21/18 00:22 Antivert PO Q8H PRN Vertigo Metformin HCl 1,000 mg 01/21/18 09:00 01/21/18 08:37 Glucophage PO 1,000 mg BID LARRY Administration Naloxone HCl 0.2 mg 01/20/18 16:50 Narcan IV Q2M PRN Opioid Reversal Brimonidine Tartrate 1 drop 01/21/18 09:00 01/21/18 08:37 /Timolol [Combigan 0 BOTH EYES Not Given .2%-0.5% Eye Drops] DAILY [facility] 1 Drop Prazosin HCl 1 mg 01/21/18 09:00 01/21/18 08:37 Minipress PO 1 mg BID LARRY Administration Intake and Output 01/20/18 01/21/18 01/21/18 22:59 06:59 14:59 Intake Total 500 120 Balance 500 120 Intake: Amount of Fluid Infused ( 500 ml) Oral 120 Other: # Voids 3 3 Weight 70.085 kg 66 kg 01/20/18 14:29 01/20/18 14:29 Assessment and Plan Assessment: Assessment #1 status post fall with head injury. #2 possible syncope. #3 coronary artery disease and status post revascularization #4 hypertension #5 dyslipidemia #6 decreased oral intake Plan #1 the patient was ruled out for acute coronary event. #2 she is overall hemodynamically stable. The blood pressure is a slightly elevated but this is acceptable for somebody in her age. The systolic pressure is between 140s to 150 mmHg. #3 the syncopal episodes could be related to decreased oral intake/hypoglycemia giving her history of not eating and drinking well for the last 3 weeks because of her esophageal disorder. #4 continue the current medical regimen #5 obtaining an echocardiogram was Doppler #6 orthostatic blood pressure #7 follow-up with the patient.
[2018-01-21] MEDS: SODIUM CHLORIDE 0.9% 1,000 ML IV SCH (15:34)
[2018-01-21] MEDS ORDERED: ACETAMINOPHEN TAB 500 MG TAB PO PRN (16:10)
[2018-01-21] MEDS ORDERED: CRANBERRY FRUIT EXTRACT PO SCH (16:15)
[2018-01-21] MEDS ORDERED: MAGNESIUM HYDROXIDE 2,400 MG/10 ML CUP PO PRN (16:22)
[2018-01-21] MEDS ORDERED: LORazepam 0.5 MG TAB PO PRN (16:22)
[2018-01-21] MEDS ORDERED: LACTULOSE 20 GM/30 ML CUP PO PRN (16:22)
[2018-01-21] MEDS ORDERED: ONDANSETRON 4 MG/2 ML VIAL IVP PRN (16:22)
[2018-01-21] MEDS ORDERED: CALCIUM CARBONATE 500 MG CHEWABLE PO PRN (16:22)
[2018-01-21] MEDS: CLOPIDOGREL 75 MG TAB PO SCH (17:39)
--- NOTE | 2018-01-21 17:51 | HP ---
HISTORY AND PHYSICAL DATE OF ADMISSION: 01/20/18. PRESENTING COMPLAINT: Passed out. HISTORY OF PRESENTING COMPLAINT: This is an 82-year-old patient with rather extensive medical history. The patient's chronic stable medical conditions include coronary artery disease, left-sided weakness from prior stroke, diabetes, clinically blind in the right eye, hyperlipidemia, hypertension, hypothyroid, chronic pain syndrome, osteoarthritis, peripheral neuropathy. The patient also got a esophageal stricture and some difficulty in swallowing and is awaiting a repeat dilatation. The patient at home was trying to go outside. The patient is not sure what happened. Does not remember and the patient temporally passed out. Denies any chest pain or palpitation. No focal weakness. No change in vision. No change in swallowing. The patient admitted for the same. Initially patient's blood pressure is running high, but after she has received her blood pressure medications, the blood pressure got well controlled. The patient's niece is present with her. REVIEW OF SYSTEMS: CONSTITUTIONAL: None. HEENT: Blind right eye. RESPIRATORY: None. CARDIOVASCULAR: None. GASTROINTESTINAL: None. GENITOURINARY: None. MUSCULOSKELETAL: Pain in some joints. DERMATOLOGICAL: None. HEMATOLOGIC AND LYMPHATIC: None. PSYCHIATRY: None. NEUROLOGICAL: Numbness and tingling in hands and feet. Weakness on the left side. PAST MEDICAL HISTORY: Coronary artery disease, stroke with residual left-sided weakness status mellitus type 2, blind in the right eye with diabetic retinopathy, hyperlipidemia, hypertension, hypothyroid, stroke in 1996, dysphagia, esophageal stricture with repeat dilatation, Ivett esophagitis, hiatal hernia, chronic pain syndrome, osteoarthritis primary, diabetic peripheral neuropathy, urinary incontinence. PAST SURGICAL HISTORY: Bladder surgery, cholecystectomy, coronary bypass 2007, cardiac catheterization, multiple EGDs and dilatations, bilateral cataract removal, open cholecystectomy. SOCIAL HISTORY: . Lives with her elderly . No smoking. No alcohol. Does use a walker. FAMILY HISTORY: Father had cirrhosis, was an alcoholic. HOME MEDICATIONS: 1. Xalatan 0.005% 1 drop to both eyes q.h.s. 2. Combigan 0.2 to 0.5% 1 drop to both eyes daily. 3. Metformin 1000 mg p.o. b.i.d. 4. DiaBeta 110 mg p.o. b.i.d. with meals. 5. Minipress 1 mg p.o. b.i.d. 6. Meclizine 12.5 p.o. q.8 p.r.n. 7. Synthroid 50 mcg p.o. daily. 8. Pepcid 20 mg p.o. daily. 9. Cranberry 8400 mg p.o. daily. 10.Plavix 75 mg p.o. daily. 11.Vitamin D3 3000 units p.o. daily. 12.Benazepril 20 mg p.o. b.i.d. 13.Lipitor 40 mg q.h.s. 14.Norvasc 5 mg p.o. b.i.d. 15.Tylenol 500 mg p.o. b.i.d. p.r.n. ALLERGIES: To ASPIRIN, IV CONTRAST DYE, SHELLFISH. PHYSICAL EXAMINATION: Temperature 99, pulse 85, respiration 16, blood pressure initially 204/86, pulse ox 96% on room air. Current blood pressure down to 121/56. GENERAL APPEARANCE: Average build, lying in bed, not comfortable. EYES: Chronic injury to the right eye. Left eye is normal. HEENT: External appearance of nose and ears normal. Oral cavity normal. NECK: JVD not raised. Mass not palpable. RESPIRATORY: Effort normal. Lungs, fair entry. CARDIOVASCULAR: First and second sounds normal. No edema. ABDOMEN: Soft, nontender. Liver and spleen not palpable. LYMPHATIC: No lymph node palpable in neck or axillae. PSYCHIATRY: Alert and oriented x3. Mood and affect normal. NEUROLOGICAL: Power on the left side is 4/5. Right eye is injured. INVESTIGATIONS: White count 6.4, hemoglobin 11.2, potassium 4.8, BUN 20, creatinine 1.0, troponin x3 negative. UA negative. EKG tracing interpreted by me shows poor R-wave progression. Head, cervical spine CT; no acute fracture. Chest x-ray some cardiomegaly. No venous prominence. ASSESSMENT: 1. This is a patient who had presentation of syncope. Blood pressure was actually uncontrolled at the time of presentation, well could be vasovagal. There was no seizure activity by history. There was no chest pain or palpitation. EKG does not show any arrhythmia. It may be noted that the patient's appetite is a bit down because of dysphagia. The patient is awaiting another dilatation. 2. Chronic dysphagia with stricture with repeated dilatations. 3. Coronary artery prior history of coronary bypass. 4. 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 5. Diabetes mellitus type 2 on oral hypoglycemic. 6. 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 7. Hyperlipidemia. 8. Essential hypertension, uncontrolled accelerated. 9. Hypothyroidism. 10.Hiatal hernia. 11.Chronic pain syndrome. 12.Primary osteoarthritis in multiple joints. 13.Peripheral neuropathy and retinopathy from diabetes. 14.Chronic urinary stress incontinence. PLAN: The patient will be admitted to the floor. Home medications resumed. Blood pressure has come down. Orthostatics were requested. Accu-Cheks will be followed. Neurology was consulted. Will watch for any arrhythmias. The patient will be put on a pureed diet for right now. MMODL / IJN: [id number] /
[2018-01-21 18:09] LABS: Glucose,Whole Blood 77 mg/dL (75-99)
--- NOTE | 2018-01-21 19:05 | P.CNNES ---
History of Present Illness Consult date: 01/21/18 Reason for Consult: This patient being admitted for evaluation of syncope and collapse. History of Present Illness: This patient is a pleasant 82-year-old right-handed white female who was in her usual state of health earlier this morning. Apparently she got up and was helping her get dressed for the morning and decided to go out and get the mail from the mailbox. Apparently she went off of her porch and apparently had an acute syncopal episode and collapsed and fell backwards. She sustained a small contusion and laceration to the back of the head. A neighbor was working on her home and immediately saw her collapse and called EMS. It is not clear whether the patient actually lost consciousness or may have tripped but she did fall backwards. She does have history of diabetes mellitus and there was concern also for possibility of a low blood sugar. According to the patient she did come around and was able to sit up. She did ask her family to check her blood sugar which she states was 127 at the time. EMS was called to the scene for further evaluation. She did have evidence of hypertensive urgency. She was evaluated in the emergency room at [facility] by Dr. Daly. She underwent a computed tomography scan of the brain and cervical spine which revealed no acute fracture or dislocation of the cervical spine. CT of the brain revealed no acute intracranial hemorrhage or midline shift. There was mild diffuse age-related cerebral atrophy and chronic small vessel ischemic changes noted. Patient did have a laceration which required some suturing on the scalp towards the left posterior occipital region. She is now doing better. The patient was admitted to the hospital for further evaluation of acute syncope. She does have a history of underlying coronary artery disease and has undergone revascularization in the past. Cardiology has been consulted. She is to undergo a echocardiogram for further assessment. Patient states that in the emergency room her blood pressure was noted to be 206/86. This is quite high elevation of her blood pressure. Her blood pressure medications are being readjusted. The patient denies any symptoms of seizure activity such as tonic-clonic movements when she fell. She did not have any bowel or bladder incontinence. She has no previous history of seizures. We have recommended she have a EEG for further evaluation. Patient is now resting comfortably. She has had no further syncopal episodes. Her blood pressure still remained slightly elevated. She is now been admitted and neurology has been consulted for further evaluation and recommendations. Review of Systems Constitutional: Denies chills, Denies fever Eyes: denies blurred vision, denies pain Ears, nose, mouth and throat: Denies headache, Denies sore throat Cardiovascular: Denies chest pain, Denies shortness of breath Respiratory: Denies cough Gastrointestinal: Denies abdominal pain, Denies diarrhea, Denies nausea, Denies vomiting Genitourinary: Denies dysuria, Denies hematuria Musculoskeletal: Denies myalgias Integumentary: Denies pruritus, Denies rash Neurological: Reports balance difficulties, Reports change in mentation, Reports confusion, Reports loss of vision, Reports motor disturbance, Reports syncope, Denies numbness, Denies weakness Psychiatric: Denies anxiety, Denies depression Endocrine: Denies fatigue, Denies weight change Past Medical History Past Medical History: Coronary Artery Disease (CAD), Chest Pain / Angina, CVA/ TIA, Diabetes Mellitus, Eye Disorder, GERD/Reflux, Hyperlipidemia, Hypertension , Osteoarthritis (OA), Thyroid Disorder Additional Past Medical History / Comment(s): 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 History of Any Multi-Drug Resistant Organisms: None Reported Past Surgical History: Bladder Surgery, Cholecystectomy, Coronary Bypass/CABG, Heart Catheterization, Hysterectomy Additional Past Surgical History / Comment(s): CABG-2007, Ccath 2007, multiple EGDs/dilations with biopsies, COLONOSCOPY. Cataracts, D&C, bladder suspension. Past Anesthesia/Blood Transfusion Reactions: Motion Sickness, Postoperative Nausea & Vomiting (PONV) Past Psychological History: No Psychological Hx Reported Additional Psychological History / Comment(s): .. Smoking Status: Never smoker Past Alcohol Use History: None Reported Past Drug Use History: None Reported - Past Family History Father Family Medical History: Liver Disease Additional Family Medical History / Comment(s): Father of cirrhosis. He was a drinker. Mother Family Medical History: Unable to Obtain Additional Family Medical History / Comment(s): Pt states she does not know her mother's medical history. Son(s) Family Medical History: Renal Disease Daughter(s) Family Medical History: Cancer Medications and Allergies Home Medications Medication Instructions Recorded Confirmed Type Benazepril HCl 20 mg PO BID 11/05/13 01/20/18 History Clopidogrel Bisulfate [Plavix] 75 mg PO DAILY 11/05/13 01/20/18 History glyBURIDE [Diabeta] 10 mg PO BID-W/MEALS 11/05/13 01/20/18 History Cholecalciferol [Vitamin D3] 3,000 unit PO DAILY 02/05/15 01/20/18 History Atorvastatin Calcium [Lipitor] 40 mg PO HS 02/18/16 01/20/18 History Cranberry Fruit Extract [Cranberry] 8,400 mg PO DAILY 02/18/16 01/20/18 History amLODIPine BESYLATE [Norvasc] 5 mg PO BID 02/18/16 01/20/18 History Levothyroxine Sodium [Synthroid] 50 mcg PO DAILY 01/07/17 01/20/18 History Meclizine HCl 12.5 mg PO Q8H PRN 01/07/17 01/20/18 History Famotidine [Pepcid] 20 mg PO DAILY 07/27/17 01/20/18 History Prazosin [Minipress] 1 mg PO BID 07/27/17 01/20/18 History Acetaminophen [Tylenol] 500 mg PO BID PRN 01/18/18 01/20/18 History Brimonidine Tartrate/Timolol 1 drop BOTH EYES DAILY 01/20/18 01/20/18 History [Combigan 0.2%-0.5% Eye Drops] Latanoprost Ophth [Xalatan 0.005%] 1 drops BOTH EYES HS 01/20/18 01/20/18 History metFORMIN HCL 1,000 mg PO BID 01/20/18 01/20/18 History Allergies Allergy/AdvReac Type Severity Reaction Status Date / Time aspirin Allergy Rash/Hives Verified 01/20/18 15:32 Iodinated Contrast- Oral and Allergy Rash/Hives Verified 01/20/18 15:32 IV Dye [Iodinated Contrast Media - IV Dye] Iodine and Iodide Containing Allergy Rash/Hives Verified 01/20/18 15:32 Produc shellfish derived [Shellfish] Allergy Rash/Hives Verified 01/20/18 15:32 Physical Examination - Vital Signs Vital Signs: Vital Signs Temp Pulse Pulse Resp BP BP Pulse Ox 01/21/18 12:00 97.3 F L 74 18 121/56 98 01/21/18 07:58 99.2 F 76 18 156/76 97 01/21/18 04:00 98.4 F 75 20 151/69 98 01/21/18 00:00 75 20 01/20/18 23:21 100.2 F H 86 16 172/89 95 01/20/18 22:52 86 20 150/63 94 L 01/20/18 21:35 82 18 167/58 95 01/20/18 20:39 78 20 173/61 95 01/20/18 19:30 78 20 187/73 99 01/20/18 18:16 74 16 226/87 10 L 01/20/18 17:42 219/84 01/20/18 16:31 74 18 206/86 99 01/20/18 16:24 74 18 183/100 98 Intake and Output 01/21/18 01/21/18 01/21/18 06:59 14:59 22:59 Intake Total 500 240 Output Total 200 Balance 500 40 Intake: Amount of Fluid Infused ( 500 ml) Oral 240 Output: Urine 200 Other: # Voids 3 Weight 66 kg - Constitutional General appearance: average body habitus, cooperative - EENT EENT: PERRL, mucous membranes moist - Respiratory Respiratory: lungs clear, normal breath sounds - Cardiovascular Cardiovascular: regular rate, normal S1, normal S2 Extremities: no peripheral edema bilaterally - Gastrointestinal Gastrointestinal: normoactive bowel sounds - Integumentary Integumentary: normal - Neurologic Cranial nerve examination: PERRL, EOMI, VFF, V1/V2/V3 grossly intact, face symmetric, tongue midline, intact gag reflex, intact corneal reflex, normal palatal elevation Speech examination: intact Sensorimotor examination: intact Motor examination - right side: 4/5: biceps, triceps, wrist flexion, wrist extension, manager secondary, hip flexors, knee extensors, dorsiflexion, toe extension (EHL) , plantarflexion Motor examination - left side: 4/5: biceps, triceps, wrist flexion, wrist extension, manager secondary, hip flexors, knee extensors, dorsiflexion, toe extension (EHL) , plantarflexion Detailed sensory examination: intact, vibration, position sense Reflex and gait examination: intact Reflexes: 1+: ankle, bicep, knee, tricep - Musculoskeletal Musculoskeletal: no pain - Psychiatric Psychiatric: mood/affect appropriate, cooperative Results - Laboratory Findings CBC and BMP: 01/20/18 14:29 01/20/18 14:29 Abnormal Lab Findings: Abnormal Labs 01/20/18 01/20/18 14:29 14:29 RBC 3.74 L Hgb 11.2 L Hct 32.8 L Lymphocytes # 0.8 L Chloride 109 H Carbon Dioxide 18 L BUN 20 H Glucose 203 H Assessment and Plan (1) Syncope and collapse Current Visit: Yes Status: Acute Code(s): R55 - SYNCOPE AND COLLAPSE SNOMED Code(s): 837859122 (2) Hypertensive crisis Current Visit: No Status: Acute Code(s): I10 - ESSENTIAL (PRIMARY) HYPERTENSION SNOMED Code(s): 582423616 (3) History of diabetes mellitus Current Visit: Yes Status: Acute Code(s): Z86.39 - PERSONAL HISTORY OF ENDO , NUTRITIONAL AND METABOLIC DISEASE SNOMED Code(s): 147093309 (4) Laceration of scalp Current Visit: Yes Status: Acute Code(s): S01.01XA - LACERATION WITHOUT FOREIGN BODY OF SCALP, INITIAL ENCOUNTER SNOMED Code(s): 211276084 Plan: This patient is a pleasant 82-year-old female who was admitted to hospital after having an acute syncopal episode earlier this morning. She was going to the mailbox and apparently passed out. EMS was called to the scene and she had evidence of hypertensive urgency. She was treated initially on site and transferred by EMS to the emergency room at [facility] for further evaluation. She was seen in the ER by Dr. Daly and underwent CT of the brain and cervical spine. Results are as noted above. She was essentially admitted to Hospital for further evaluation. Her neurological examination is nonfocal. Her clinical history suggests acute syncopal episode etiology undetermined. Doubt that she had a seizure but we will further evaluate with a routine EEG. She is being evaluated for hypertensive urgency and uncontrolled hypertension. She has a long-standing history of diabetes mellitus but apparently did not show signs of hypoglycemia at the time of this event. She sustained a mild laceration which was sutured in the ER and she is now stable. We will continue close neurological follow-up with the patient during this admission. This case was discussed at length with the patient. All of her questions were answered. She is aware of our current evaluation and recommendations. Her overall prognosis at this time remains guarded. Time with Patient: Greater than 30
[2018-01-21] MEDS ORDERED: MELATONIN 3 MG TABLET PO PRN (21:00)
[2018-01-21 21:05] LABS: Glucose,Whole Blood 180 mg/dL (75-99)
[2018-01-21] MEDS: LATANOPROST 0.005% OPHTH DROPS 2.5 ML BTL BOTH EYES SCH (21:31)
[2018-01-21 23:30] LABS: Cholesterol 124 mg/dL (<200); HDL Cholesterol 46 mg/dL (40-60); LDL Cholesterol,Calculated 55 mg/dL (0-99); Triglycerides 116 mg/dL (<150)
[2018-01-22] MEDS: glipiZIDE 10 MG TAB PO SCH ×2 (05:48→16:37)
[2018-01-22] MEDS: LEVOTHYROXINE 50 MCG TAB PO SCH (06:14)
[2018-01-22 06:24] LABS: Glucose,Whole Blood 134 mg/dL (75-99)
[2018-01-22] MEDS: BRIMONIDINE TARTRATE BOTH EYES SCH (09:02)
[2018-01-22] MEDS: amLODIPine 5 MG TAB PO SCH ×2 (09:02→09:50)
[2018-01-22] MEDS: TIMOLOL BOTH EYES SCH (09:02)
[2018-01-22] MEDS: CHOLECALCIFEROL 1,000 UNIT TAB PO SCH (09:02)
[2018-01-22] MEDS: LISINOPRIL 20 MG TAB PO SCH ×3 (09:03→20:18)
[2018-01-22] MEDS: FAMOTIDINE 20 MG TAB PO SCH (09:03)
[2018-01-22] MEDS: PRAZOSIN 1 MG CAP PO SCH ×3 (09:03→20:18)
[2018-01-22] MEDS: CLOPIDOGREL 75 MG TAB PO SCH ×2 (09:03→09:50)
[2018-01-22] MEDS: metFORMIN 500 MG TAB PO SCH ×3 (09:04→20:17)
--- NOTE | 2018-01-22 09:35 | P.PN ---
Subjective Progress Note Date: 01/22/18 Principal diagnosis: Syncope This is a pleasant and fragile 82-year-old female patient with a past medical history significant for coronary artery disease and status post coronary artery bypass grafting 10 years ago with unknown details, hypertension , dyslipidemia, and multiple comorbidities, was brought to the hospital by ambulance after she had a syncopal episode at home. The patient lives with her at home. She fell at home and she was screaming for help where the neighbors here with her and came in to help her and they found her on the floor. Were not sure if the patient lost her consciousness. According to her family the patient was not eating and drinking well for the last 3-4 weeks because she does have dysphagia and difficulty swallowing and she does have history of esophageal stricture requiring her to have diabetes dictation Geoff 6 month period beside that and according to the patient's family the patient was experiencing some chest discomfort on and off for the last several weeks. The patient underwent an EKG which showed sinus rhythm without any ischemic ST or T-wave abnormalities but with some nonspecific changes. 3 sets of cardiac enzymes came in to be unremarkable. The chest x-ray showed no acute abnormalities. A computed tomography scan of the head as well as the neck was performed and showed no acute abnormalities as well. The patient did have an echocardiogram in 2017 and that revealed normal LV function with mild aortic stenosis and mild mitral stenosis. The CBC and BMP are within normal limits. The blood pressure is mildly elevated. On follow-up with the patient today, she is looking better. She is not as lethargic as yesterday. He continues to denie any chest pain or chest discomfort. She is in process of being seen by the GI service for possible upper endoscopy and esophageal diabetes dictation. Objective - Vital Signs Vital signs: Vital Signs Temp 98.0 F 01/22/18 03:59 Pulse 60 01/22/18 03:59 Resp 16 01/22/18 03:59 BP 124/68 01/22/18 03:59 Pulse Ox 95 01/22/18 03:59 Intake & Output 01/21/18 01/22/18 01/22/18 18:59 06:59 18:59 Intake Total 240 240 Output Total 200 250 Balance 40 -10 Weight 64 kg Intake: Oral 240 240 Output: Urine 200 250 - Constitutional General appearance: Present: no acute distress - Respiratory Respiratory: bilateral: CTA - Cardiovascular Heart sounds: normal: S1, S2 - Labs CBC & Chem 7: 01/20/18 14:29 01/20/18 14:29 Labs: Abnormal Lab Results - Last 24 Hours (Table) 01/21/18 01/22/18 Range/Units 20:56 06:19 POC Glucose (mg/dL) 180 H 134 H (75-99) mg/dL Assessment and Plan Assessment: Assessment #1 status post fall with head injury. #2 possible syncope. #3 coronary artery disease and status post revascularization #4 hypertension #5 dyslipidemia #6 decreased oral intake Plan #1 the patient was ruled out for acute coronary event. #2 she is overall hemodynamically stable. #3 the syncopal episodes could be related to decreased oral intake/hypoglycemia giving her history of not eating and drinking well for the last 3 weeks because of her esophageal disorder. #4 continue the current medical regimen #5 will follow-up with the echocardiogram #6 orthostatic blood pressure #7 follow-up with the patient.
[2018-01-22 11:58] LABS: Glucose,Whole Blood 204 mg/dL (75-99)
[2018-01-22 12:25] LABS: Hemoglobin A1C 7.5 % (4.0-6.0)
--- NOTE | 2018-01-22 12:31 | US ---
EXAMINATION TYPE: US carotid duplex BILAT DATE OF EXAM: 01/22/2018 COMPARISON: US 02/05/2015 CLINICAL HISTORY: 82 year-old female acute syncope and collapse.. TECHNIQUE: Carotid duplex ultrasound examination. Indirect Doppler criteria was utilized. FINDINGS: EXAM MEASUREMENTS: RIGHT: Peak Systolic Velocity (PSV) cm/sec ----- Right CCA: 47.8 ----- Right ICA: 98.4 ----- Right ECA: 57.0 ICA/CCA ratio: 2.1 RIGHT: End Diastole cm/sec ----- Right CCA: 12.9 ----- Right ICA: 32.1 ----- Right ECA: 0.0 LEFT: Peak Systolic Velocity (PSV) cm/sec ----- Left CCA: 58.1 ----- Left ICA: 127.9 ----- Left ECA: 68.5 ICA/CCA ratio: 2.2 LEFT: End Diastole cm/sec ----- Left CCA: 16.7 ----- Left ICA: 37.3 ----- Left ECA: 8.9 VERTEBRALS (direction of flow): Right Vertebral: Antegrade Left Vertebral: Antegrade Rhythm: Normal Moderate atherosclerotic changes at both bifurcations. Soft and calcified plaque noted bilaterally. IMPRESSION: Measurements suggest a possible mild or moderate atherosclerotic narrowing at the proxima l left ICA (<69%). Criteria for Assigning % of Stenosis / Diameter reduction (Estimation based on the indirect measurements of the internal carotid artery velocities (ICA PSV). 1. Normal (no stenosis)=ICA PSV < 125 cm/s: ratio < 2.0: ICA EDV<40 cm/s. 2. Less than 50% stenosis=ICA PSV < 125 cm/s: ratio < 2.0: ICA EDV<40 cm/s. 3. 50 to 69% stenosis=ICA PSV of 125 to 230 cm/s: ration 2.0 ? 4.0: ICA EDV 40-100 cm/s. 4. Greater than 70% stenosis to near occlusion= ICA PSV > 230 cm/s: ratio > 4.0: ICA EDV > 100 cm/s. 5. Near occlusion= ICA PSV velocities may be low or undetectable: variable ratio and ICA EDV. 6. Total occlusion=unable to detect flow.
--- NOTE | 2018-01-22 13:15 | ECHOF ---
Referral Reason:syncope MEASUREMENTS -------- HEIGHT: 152.4 cm WEIGHT: 64.0 kg BP: 124/68 IVSd: 1.2 cm (0.6 - 1.1) LVIDd: 3.6 cm (3.9 - 5.3) LVPWd: 1.2 cm (0.6 - 1.1) IVSs: 1.4 cm LVIDs: 2.5 cm LVPWs: 1.5 cm RVIDd: 2.6 cm (< 3.3) LAESV Index (A-L): 32.72 ml/m Ao Diam: 2.8 cm (2.0 - 3.7) LA Diam: 3.4 cm (2.7 - 3.8) AV Cusp: 1.4 cm (1.5 - 2.6) EPSS: 0.5 cm MV E Simeon: 1.05 m/s MV DecT: 436 ms MV A Simeon: 1.75 m/s MV E/A Ratio: 0.60 RAP: 5.00 mmHg RVSP: 18.68 mmHg MV EF SLOPE: 25.52 mm/s (70 - 150) MV EXCURSION: 1.00 cm (> 18.000) FINDINGS -------- Sinus rhythm. This was a technically difficult study with suboptimal views. The left ventricular size is normal. There is mild concentric left ventricular hypertrophy. Overa ll left ventricular systolic function is normal with, an EF between 55 - 60 %. The right ventricle is normal in size and function. LA is midly dilated 29-33ml/m2. The right atrium was not well visualized. 3ml of Lumason was utilized for enhancement of images. Aortic valve is trileaflet and is mildly thickened. There is no evidence of aortic regurgitation. There is no evidence of aortic stenosis. The mitral valve leaflets are mildly thickened. Mild mitral regurgitation is present. Trace tricuspid regurgitation present. Right ventricular systolic pressure is normal at < 35 mmHg. There is no evidence of pulmonary hypertension. The pulmonic valve was not well visualized. The aortic root size is normal. IVC Not well visulized. CONCLUSIONS -------- 1. Sinus rhythm. 2. This was a technically difficult study with suboptimal views. 3. The left ventricular size is normal. 4. There is mild concentric left ventricular hypertrophy. 5. Overall left ventricular systolic function is normal with, an EF between 55 - 60 %. 6. LA is midly dilated 29-33ml/m2. 7. The right atrium was not well visualized. 8. 3ml of Lumason was utilized for enhancement of images. 9. Aortic valve is trileaflet and is mildly thickened. 10. The mitral valve leaflets are mildly thickened. 11. Mild mitral regurgitation is present. 12. Trace tricuspid regurgitation present. 13. Right ventricular systolic pressure is normal at < 35 mmHg. 14. There is no evidence of pulmonary hypertension. 15. The pulmonic valve was not well visualized. 16. The aortic root size is normal. 17. IVC Not well visulized. ELA TEACHER: Dennis Morton RDCS
--- NOTE | 2018-01-22 16:21 | CDI ---
Last Revision, June 2017 Documentation Clarification Form Date: 01/23/2018 12:00:00 AM From: Gaby Garcia RN, CCDS Admit Date: 01/20/2018 4:50:00 PM Patient Name: Maryann Sawyer Visit Number: [id number] Discharge Date: ATTENTION: The Clinical Documentation Specialists (CDI) and [facility] Coding Staff appreciate your assistance in clarifying documentation. Please respond to the clarification below the line at the bottom and electronically sign. The CDI & [facility] Coding staff will review the response and follow-up if needed. Please note: Queries are made part of the Legal Health Record. If you have any questions, please contact the author of this message via ITS. Dr. Elan Nagel Blood pressure uncontrolled at the time of presentation. was documented in your H/P and progress notes. 01/24/18: essential hypertension, uncontrolled accelerated Patient history/risk factors: Hypertension, CVA, Diabetes Mellitus type 2, Chronic pain syndrome Clinical Indicators: Present after passing out. Lab findings BUN 20, CR 1.00 CT Brain/spine: no ac fracture, no ac intracranial hemorrhage or midline shift , Vital Signs: 204/86 85 16, 214/80 74 18, 183/100 74 18 206/88 74 18 Treatment: Monitor Vital signs Apresoline IVP x1 Vasotec IVP PRN Minipress PO In your professional opinion, can you please further clarify Essential Hypertension, Uncontrolled accelerated ? Hypertensive Crisis Hypertensive Urgency Hypertension Emergency Other, please specify Unable to determine Please continue to document in your progress notes and discharge summary in order to capture severity of illness and risk of mortality. Include clinical findings that support your diagnosis _ hypertensive urgency,POA . MTDD
[2018-01-22] MEDS: ACETAMINOPHEN TAB 325 MG TAB PO PRN (16:37)
[2018-01-22 17:10] LABS: Glucose,Whole Blood 290 mg/dL (75-99)
[2018-01-22] MEDS: SODIUM CHLORIDE 0.9% 1,000 ML IV SCH (20:16)
[2018-01-22] MEDS: LATANOPROST 0.005% OPHTH DROPS 2.5 ML BTL BOTH EYES SCH (20:18)
[2018-01-22 20:55] LABS: Glucose,Whole Blood 229 mg/dL (75-99)
[2018-01-22] MEDS ORDERED: ATORVASTATIN 40 MG TAB PO SCH (21:00)
--- NOTE | 2018-01-22 21:28 | EEG ---
ELECTROENCEPHALOGRAM REPORT DATE OF EE01/22/2018. REFERRING PHYSICIAN: Dr. Nagel. CONSULTING INTERPRETING PHYSICIAN: Dr. Ashutosh Roth ELECTROENCEPHALOGRAPHIC EXAMINATION REPORT: INDICATION FOR EXAMINATION: This patient is an 82-year-old female being evaluated for acute syncope and collapse. AGE: 82. EEG FINDINGS: A routine 21 channel awake digital EEG recording was accomplished utilizing the 10-20 international system with bipolar and referential montages. The background activity in the most alert resting state consists of a low to medium amplitude, fairly well developed and well sustained 6-7 Hz activity over the posterior head regions. This posterior rhythm attenuates to eye opening. There is a small amount of low amplitude 18-20 Hz beta activity seen maximally over the anterior head regions. Muscle and movement artifact was observed on a few occasions during the tracing. Hyperventilation was not performed. Photic stimulation at flash frequencies of 2-30 Hz produced a minimal occipital driving response. No epileptiform discharges were seen. IMPRESSION: This EEG is mildly abnormal in a diffuse fashion due to slowing of the EEG background. The EEG failed to reveal any focal, lateralized, or epileptiform abnormalities. Clinical correlation is recommended. MMODL / IJN: [id number] /
[2018-01-22 22:46] VITALS: RESP 18
--- NOTE | 2018-01-23 00:37 | P.PN ---
Subjective Progress Note Date: 01/22/18 This patient is a 82-year-old female who is being evaluated for recent syncopal episode. Patient tripped while at home on the sidewalk and fell and struck the back of her head. She was admitted to hospital for further evaluation. She did undergo routine EEG today which was reviewed and is only mildly abnormal with no evidence of any epileptiform discharges. She is being followed by cardiology for further evaluation of cardiogenic syncope. Where waiting further recommendations from cardiology. 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 She is being scheduled for esophageal dilation procedure tomorrow as she has history of stricture. Gastroenterology is planning to do this procedure tomorrow. We reviewed the results of the EEG today with the patient and her granddaughter at bedside. We will continue close neurological follow-up with the patient during this admission. We will await further recommendations from cardiology as well. Her overall prognosis at this time remains guarded. Objective - Vital Signs Vital signs: Vital Signs Temp 97.2 F L 01/22/18 16:00 Pulse 64 01/22/18 16:00 Resp 16 01/22/18 16:00 BP 131/59 01/22/18 16:00 Pulse Ox 99 01/22/18 16:00 Intake & Output 01/22/18 01/22/18 01/23/18 06:59 18:59 06:59 Intake Total 240 180 Output Total 250 Balance -10 180 Weight 64 kg Intake: Oral 240 180 Output: Urine 250 Other: # Voids 2 - Exam Physical examination: PHYSICAL EXAMINATION: Patient is resting comfortably in bed. VITAL SIGNS: Blood pressure is [131/59]. Heart rate is [64]. Respiration is [16] . Temperature is [97.2]. HEENT: Head is atraumatic, neck is supple, there were no carotid bruits. CHEST: Lungs are clear to auscultation and percussion. CARDIAC: S1, S2 normal rate and rhythm. There is no murmur. ABDOMEN: Soft and nontender. Bowel sounds are present. EXTREMITIES: There is no pedal edema. Peripheral pulses are present. Neurological examination: Patient is resting comfortably. Neurological examination is nonfocal today. - Labs CBC & Chem 7: 01/20/18 14:29 01/20/18 14:29 Labs: Abnormal Lab Results - Last 24 Hours (Table) 01/20/18 01/22/18 01/22/18 Range/Units 14:29 06:19 11:56 POC Glucose (mg/dL) 134 H 204 H (75-99) mg/dL Hemoglobin A1c 7.5 H (4.0-6.0) % 01/22/18 01/22/18 Range/Units 17:07 20:54 POC Glucose (mg/dL) 290 H 229 H (75-99) mg/dL Hemoglobin A1c (4.0-6.0) % Assessment and Plan (1) Syncope and collapse Current Visit: Yes Status: Acute Code(s): R55 - SYNCOPE AND COLLAPSE SNOMED Code(s): 021239351 (2) Hypertensive crisis Current Visit: No Status: Acute Code(s): I10 - ESSENTIAL (PRIMARY) HYPERTENSION SNOMED Code(s): 078321379 (3) History of diabetes mellitus Current Visit: Yes Status: Acute Code(s): Z86.39 - PERSONAL HISTORY OF ENDO , NUTRITIONAL AND METABOLIC DISEASE SNOMED Code(s): 478906779 (4) Laceration of scalp Current Visit: Yes Status: Acute Code(s): S01.01XA - LACERATION WITHOUT FOREIGN BODY OF SCALP, INITIAL ENCOUNTER SNOMED Code(s): 162809121 Plan: This patient is a 82-year-old female being evaluated for recent syncopal episode and fall. She underwent routine EEG which was reviewed today and is only slightly slow with no evidence of any epileptiform discharges. She is doing much better today and seems to be more alert and able to follow commands. She is being followed closely by cardiology as well and we will await their further recommendations. Patient is to undergo esophageal stricture procedure tomorrow and we will await her results. We have reviewed the results of her EEG today with her and her granddaughter bedside and there were both updated. Her overall prognosis at this time remains guarded. We will continue close neurological follow-up for the patient during this admission.
[2018-01-23] MEDS: glipiZIDE 10 MG TAB PO SCH ×2 (05:51→15:48)
[2018-01-23] MEDS: LEVOTHYROXINE 50 MCG TAB PO SCH (05:52)
[2018-01-23 06:00] LABS: Glucose,Whole Blood 114 mg/dL (75-99)
[2018-01-23] MEDS: ACETAMINOPHEN TAB 325 MG TAB PO PRN (06:29)
[2018-01-23] MEDS: TIMOLOL BOTH EYES SCH (08:18)
[2018-01-23] MEDS: BRIMONIDINE TARTRATE BOTH EYES SCH (08:18)
[2018-01-23] MEDS: PRAZOSIN 1 MG CAP PO SCH (08:19)
[2018-01-23] MEDS: LISINOPRIL 20 MG TAB PO SCH (08:19)
--- NOTE | 2018-01-23 10:16 | PN ---
PROGRESS NOTE DATE OF SERVICE: 01/22/2018 This 82-year-old woman is admitted with syncope, is being evaluated for orthostatic hypotension. Patient also is slated for EGD. No chest pain. No palpitations. No fever. PHYSICAL EXAMINATION: On exam, alert and oriented x3. The pulse is 64, blood pressure 131/59, respiration 16, temperature 97.2, pulse ox 99% on room air. HEENT: Conjunctivae normal. Oral mucosa moist. Neck is no jugular venous distention. No carotid bruit. No lymph node enlargement. CARDIOVASCULAR: S1, S2 muffled. RESPIRATORY: Breath sounds diminished in the bases. No rhonchi, no crackles. ABDOMEN: Soft, nontender. LEGS: No edema, no swelling. NERVOUS SYSTEM: No focal deficits. LABS: Labs are at this time show glucose 290, hemoglobin 11.2. ASSESSMENT: 1. Syncope for evaluation possibly vasovagal. 2. Anemia. 3. Chronic dysphagia with stricture repeated dilatations. 4. Coronary artery disease CABG. 5. 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 6. Diabetes mellitus type 2. 7. Blind right eye. 8. Hyperlipidemia. 9. Hypertension. 10.Hypothyroidism. 11.Hiatal hernia. 12.Chronic pain syndrome. 13.History of degenerative joint disease. 14.Peripheral neuropathy. 15.Chronic urinary stress incontinence. RECOMMENDATIONS AND DISCUSSION: Recommend to continue current medication. Continue symptomatic treatment. Otherwise at this time I would recommend monitor blood pressure closely and I would also recommend possible EGD by Gastroenterology. Guarded prognosis because of multiple complex medical issues. Further recommendations to follow. MMODL / IJN: [id number] /
[2018-01-23 11:53] LABS: Glucose,Whole Blood 161 mg/dL (75-99)
--- NOTE | 2018-01-23 12:28 | P.CONS ---
History of Present Illness - Reason for Consult Consult date: 01/23/18 Dysphagia history of esophageal stricture Requesting physician: Elan Nagel - History of Present Illness 82-year-old female patient of Dr. Zavaleta with a history of GERD distal esophageal stricture multiple EGD dilations admitted with syncope status post fall on Monday. CT had no acute fracture or dislocation. No acute intracranial hemorrhage. Possible vasovagal response. Patient is having difficulty swallowing unable to pass liquids for the last few weeks. Denies hematemesis hematochezia melena. Last EGD with dilation was in July 2017. She has been nothing by mouth and has not received Plavix today. White count 6.4. Hemoglobin 11.2. Platelet 217. INR 1.1. Review of Systems Constitutional: Denies fever, chills, sweats, weight gain, or loss. HEENT: Negative for migraines, blurred vision or loss, earaches, drainage, tinnitus, oral mucosal lesions, dysphagia, or odynophagia. CARDIAC: Admitted with syncope status post fall. Negative for chest pain, arrhythmias, or palpitation. RESPIRATORY: Negative for shortness of breath, hemoptysis, cough, or sputum production. GI: See HPI for pertinent findings. : Negative for hematuria, urgency, frequency, polyuria, or dysuria. GYNc: Negative vaginal discharge. MUSCULOSKELETAL: Negative for muscle aches, swelling, arthritis, and arthralgias. NEUROLOGIC: Negative for stroke or TIA. ENDOCRINE: Negative for thyroid problems. SKIN: Negative for rash or itching. PSYCHIATRIC: Negative history for depression and anxiety Past Medical History Past Medical History: Coronary Artery Disease (CAD), Chest Pain / Angina, CVA/ TIA, Diabetes Mellitus, Eye Disorder, GERD/Reflux, Hyperlipidemia, Hypertension , Osteoarthritis (OA), Thyroid Disorder Additional Past Medical History / Comment(s): 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 History of Any Multi-Drug Resistant Organisms: None Reported Past Surgical History: Bladder Surgery, Cholecystectomy, Coronary Bypass/CABG, Heart Catheterization, Hysterectomy Additional Past Surgical History / Comment(s): CABG-2007, Ccath 2007, multiple EGDs/dilations with biopsies, COLONOSCOPY. Cataracts, D&C, bladder suspension. Past Anesthesia/Blood Transfusion Reactions: Motion Sickness, Postoperative Nausea & Vomiting (PONV) Past Psychological History: No Psychological Hx Reported Additional Psychological History / Comment(s): .. Smoking Status: Never smoker Past Alcohol Use History: None Reported Past Drug Use History: None Reported - Past Family History Father Family Medical History: Liver Disease Additional Family Medical History / Comment(s): Father of cirrhosis. He was a drinker. Mother Family Medical History: Unable to Obtain Additional Family Medical History / Comment(s): Pt states she does not know her mother's medical history. Son(s) Family Medical History: Renal Disease Daughter(s) Family Medical History: Cancer Medications and Allergies Home Medications Medication Instructions Recorded Confirmed Type Benazepril HCl 20 mg PO BID 11/05/13 01/20/18 History Clopidogrel Bisulfate [Plavix] 75 mg PO DAILY 11/05/13 01/20/18 History glyBURIDE [Diabeta] 10 mg PO BID-W/MEALS 11/05/13 01/20/18 History Cholecalciferol [Vitamin D3] 3,000 unit PO DAILY 02/05/15 01/20/18 History Atorvastatin Calcium [Lipitor] 40 mg PO HS 02/18/16 01/20/18 History Cranberry Fruit Extract [Cranberry] 8,400 mg PO DAILY 02/18/16 01/20/18 History amLODIPine BESYLATE [Norvasc] 5 mg PO BID 02/18/16 01/20/18 History Levothyroxine Sodium [Synthroid] 50 mcg PO DAILY 01/07/17 01/20/18 History Meclizine HCl 12.5 mg PO Q8H PRN 01/07/17 01/20/18 History Famotidine [Pepcid] 20 mg PO DAILY 07/27/17 01/20/18 History Prazosin [Minipress] 1 mg PO BID 07/27/17 01/20/18 History Acetaminophen [Tylenol] 500 mg PO BID PRN 01/18/18 01/20/18 History Brimonidine Tartrate/Timolol 1 drop BOTH EYES DAILY 01/20/18 01/20/18 History [Combigan 0.2%-0.5% Eye Drops] Latanoprost Ophth [Xalatan 0.005%] 1 drops BOTH EYES HS 01/20/18 01/20/18 History metFORMIN HCL 1,000 mg PO BID 01/20/18 01/20/18 History Allergies Allergy/AdvReac Type Severity Reaction Status Date / Time aspirin Allergy Rash/Hives Verified 01/20/18 15:32 Iodinated Contrast- Oral and Allergy Rash/Hives Verified 01/20/18 15:32 IV Dye [Iodinated Contrast Media - IV Dye] Iodine and Iodide Containing Allergy Rash/Hives Verified 01/20/18 15:32 Produc shellfish derived [Shellfish] Allergy Rash/Hives Verified 01/20/18 15:32 Physical Exam Vitals: Vital Signs Temp Pulse Resp BP BP BP Pulse Ox 01/23/18 08:00 98.1 F 75 18 128/62 94 L 01/23/18 04:00 98.3 F 60 18 119/74 95 01/23/18 00:00 98.0 F 62 18 123/69 96 01/22/18 20:00 98.4 F 66 18 139/86 01/22/18 16:00 97.2 F L 64 16 131/59 99 Intake and Output 01/22/18 01/23/18 01/23/18 22:59 06:59 14:59 Intake Total 180 Balance 180 Intake: Oral 180 Other: # Voids 2 2 1 Weight 63.5 kg General appearance: The patient is alert, oriented, in no acute distress. HET: Head is normocephalic and atraumatic. Pupils are equal and reactive. Oropharynx is clear without lesions. Neck: Supple without lymphadenopathy. Trachea midline. Heart: S1 S2. Regular rate and rhythm. Lungs: No crackles or wheezes are heard. Abdomen: Soft, nontender, nondistended with bowel sounds. No peritoneal signs. No palpable organomegaly or masses. Extremities: Normal skin color and turgor. No cyanosis, rash, ulceration, clubbing, or edema. Radial and pedal pulses are 2/4 bilaterally. Neurological: No focal deficits. Strength and sensation are grossly intact. Results CBC & Chem 7: 01/20/18 14:29 01/20/18 14:29 Labs: Abnormal Lab Results - Last 24 Hours (Table) 01/20/18 01/22/18 01/22/18 Range/Units 14:29 17:07 20:54 POC Glucose (mg/dL) 290 H 229 H (75-99) mg/dL Hemoglobin A1c 7.5 H (4.0-6.0) % 01/23/18 01/23/18 Range/Units 05:59 11:42 POC Glucose (mg/dL) 114 H 161 H (75-99) mg/dL Hemoglobin A1c (4.0-6.0) % Assessment and Plan (1) Dysphagia Current Visit: Yes Status: Acute Code(s): R13.10 - DYSPHAGIA, UNSPECIFIED SNOMED Code(s): 16168965 (2) History of esophageal stricture Current Visit: Yes Status: Acute Code(s): Z87.19 - PERSONAL HISTORY OF OTHER DISEASES OF THE DIGESTIVE SYSTEM SNOMED Code(s): 239994767 (3) Status post fall Current Visit: Yes Status: Acute Code(s): Z91.81 - HISTORY OF FALLING SNOMED Code(s): 190533542 Plan: 1. EGD today. Protonix 40 mg IV daily. The seam rubber has discussed the risks, benefits and alternative therapies for the above-mentioned procedure and for both sedation/analgesia as well as necessary blood product administration, if indicated, as they pertain to this patient. The patient has indicated understanding and acceptance of the risks and procedures discussed. Thank you for this kind referral and the opportunity to participate in the care of your patient. This consultation was discussed with Dr. Zavaleta. The impression and plan of care have been directed as dictated.
--- NOTE | 2018-01-23 12:51 | P.PN ---
Subjective Progress Note Date: 01/23/18 Principal diagnosis: Syncope This is a pleasant and fragile 82-year-old female patient with a past medical history significant for coronary artery disease and status post coronary artery bypass grafting 10 years ago with unknown details, hypertension , dyslipidemia, and multiple comorbidities, was brought to the hospital by ambulance after she had a syncopal episode at home. The patient lives with her at home. She fell at home and she was screaming for help where the neighbors here with her and came in to help her and they found her on the floor. Were not sure if the patient lost her consciousness. According to her family the patient was not eating and drinking well for the last 3-4 weeks because she does have dysphagia and difficulty swallowing and she does have history of esophageal stricture requiring her to have diabetes dictation Geoff 6 month period beside that and according to the patient's family the patient was experiencing some chest discomfort on and off for the last several weeks. The patient underwent an EKG which showed sinus rhythm without any ischemic ST or T-wave abnormalities but with some nonspecific changes. 3 sets of cardiac enzymes came in to be unremarkable. The chest x-ray showed no acute abnormalities. A computed tomography scan of the head as well as the neck was performed and showed no acute abnormalities as well. The patient did have an echocardiogram in 2017 and that revealed normal LV function with mild aortic stenosis and mild mitral stenosis. The CBC and BMP are within normal limits. The blood pressure is mildly elevated. On follow-up with the patient today, she is looking better. She is not as lethargic as yesterday. He continues to denie any chest pain or chest discomfort. She was seen by the GI service and the plan to proceed with endoscopy later on today. Objective - Vital Signs Vital signs: Vital Signs Temp 98.1 F 01/23/18 08:00 Pulse 75 01/23/18 08:00 Resp 18 01/23/18 08:00 BP 128/62 01/23/18 08:00 Pulse Ox 94 L 01/23/18 08:00 Intake & Output 01/22/18 01/23/18 01/23/18 18:59 06:59 18:59 Intake Total 180 Balance 180 Weight 63.5 kg Intake: Oral 180 Other: # Voids 2 2 1 - Constitutional General appearance: Present: no acute distress - Respiratory Respiratory: bilateral: CTA - Cardiovascular Heart sounds: normal: S1, S2 - Labs CBC & Chem 7: 01/20/18 14:29 01/20/18 14:29 Labs: Abnormal Lab Results - Last 24 Hours (Table) 01/20/18 01/22/18 01/22/18 Range/Units 14:29 17:07 20:54 POC Glucose (mg/dL) 290 H 229 H (75-99) mg/dL Hemoglobin A1c 7.5 H (4.0-6.0) % 01/23/18 01/23/18 Range/Units 05:59 11:42 POC Glucose (mg/dL) 114 H 161 H (75-99) mg/dL Hemoglobin A1c (4.0-6.0) % Assessment and Plan Assessment: Assessment #1 status post fall with head injury. #2 possible syncope. #3 coronary artery disease and status post revascularization #4 hypertension #5 dyslipidemia #6 decreased oral intake Plan #1 the patient was ruled out for acute coronary event. #2 she is overall hemodynamically stable. #3 the syncopal episodes could be related to decreased oral intake/hypoglycemia giving her history of not eating and drinking well for the last 3 weeks because of her esophageal disorder. #4 continue the current medical regimen #5 the patient is going to undergo an endoscopy later on today.
[2018-01-23] MEDS ORDERED: LIDOCAINE 1% INJ 10MG/ML (20 ML MDV) ONE (14:47)
[2018-01-23] MEDS ORDERED: PROPOFOL 10 MG/ML 20 ML VIAL IV ONE (14:47)
[2018-01-23] MEDS ORDERED: SODIUM CHLORIDE 0.9% 500 ML IV ONE (14:47)
--- NOTE | 2018-01-23 15:16 | P.PCN ---
Date of Procedure: 01/23/18 Procedure(s) Performed: Procedure: Esophagogastroduodenoscopy and esophageal dilation using the Microvasive nbzdcoi-gez-hrwac balloon dilator size 12-15 mm Preoperative diagnosis: Dysphagia and history of esophageal stricture. Postoperative diagnosis: Hiatal hernia and esophageal stricture dilated up to 15 mm using the Microvasive bglmekm-lmm-cjocz balloon dilator size 12-15 mm. Preparation sedation: Was provided by anesthesia. Brief clinical history: The patient is an 82-year-old female with a history of GERD, distal esophageal stricture requiring multiple EGD/dilations in the past, the last was in July 2017, was admitted with syncope status post fall on Monday. CT had no acute fracture or dislocation. No acute intracranial hemorrhage. Possible vasovagal response. Patient is having difficulty swallowing unable to pass liquids for the last few weeks and I was planning to selectively perform esophageal dilation yesterday. Since she was hospitalized we waited until she was stable and scheduled the exam at this time. The details are summarized in the history and physical and dictated consultations and progress. She denies hematemesis, hematochezia or melena. She has been nothing by mouth and has not received Plavix today. White count 6.4. Hemoglobin 11.2. Platelet 217. INR 1.1. Procedure: With the patient on her left lateral decubitus position and after informed consent and adequate sedation, I passed the Olympus-GIF 160 video upper endoscope through the cricopharyngeus down the esophagus. GE junction was around 36 cm from the incisors and there was a little hesitancy while passing the endoscope into that area. The endoscope was then passed into the stomach through a sliding hiatal hernia. The stomach was then insufflated with air and inspected in detail including the retroflex view in the cardia. The endoscope was passed through pylorus into the duodenum. Both the stomach and duodenum showed minimal mottling and erythema consistent with minimal gastritis and duodenitis but there were no ulcers, gastric outlet obstruction or bleeding. In the retroflex view in the cardia I noted no masses or tumors. At this point, I proceeded to dilate the stricture. I passed the Microvasive kwogdbb-hgb-cvufk balloon dilator size 12-15 mm and centered it at the level of the stricture in the distal esophagus and inflated it in a stepwise fashion, first to 12 mm then to 13.5 mm and finally to 15 mm with satisfactory dilation. The patient tolerated the procedure well and the endoscope was withdrawn. Plan: The patient will be allowed clear liquids today and her that can then be advanced as tolerated tomorrow.
[2018-01-23] MEDS: metFORMIN 500 MG TAB PO SCH (15:26)
[2018-01-23] MEDS: CLOPIDOGREL 75 MG TAB PO SCH (15:46)
[2018-01-23] MEDS: FAMOTIDINE 20 MG TAB PO SCH (15:47)
[2018-01-23] MEDS: CHOLECALCIFEROL 1,000 UNIT TAB PO SCH (15:47)
[2018-01-23 17:07] LABS: Glucose,Whole Blood 108 mg/dL (75-99)
[2018-01-23 17:57] VITALS: BP 186/73; PULSE 67; TEMP 97
--- NOTE | 2018-01-23 19:11 | P.PN ---
Subjective Progress Note Date: 01/23/18 This patient is a 82-year-old female who is being evaluated for recent syncopal episode. Patient tripped while at home on the sidewalk and fell and struck the back of her head. She was admitted to hospital for further evaluation. She did undergo routine EEG today which was reviewed and is only mildly abnormal with no evidence of any epileptiform discharges. She is being followed by cardiology for further evaluation of cardiogenic syncope. Where waiting further recommendations from cardiology. 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 She is being scheduled for esophageal dilation procedure tomorrow as she has history of stricture. Gastroenterology is planning to do this procedure tomorrow. We reviewed the results of the EEG today with the patient and her granddaughter at bedside. Patient was seen by gastroenterology today and did undergo her procedure for esophageal stricture. She underwent endoscopy and the stricture was treated by gastroenterology. She is doing better today. She has been doing better today and apparently is being considered for discharge home later today. The patient has had no further changes in terms of her neurological status. We recommend that she follow-up in the outpatient neurology clinic in 3-4 weeks. We will continue close neurological follow-up with the patient during this admission. We will await further recommendations from cardiology as well. She was seen by Dr. Nath today. She has been ruled out for acute coronary event. Hemodynamically she remains stable. She has had no further falls or syncopal episodes since admission. We will continue close neurological follow-up with the patient. As noted she is being considered for discharge home today and may follow-up in the outpatient neurology clinic in 3- 4 weeks. Objective - Vital Signs Vital signs: Vital Signs Temp 97.0 F L 01/23/18 15:20 Pulse 67 01/23/18 15:20 Resp 18 01/23/18 15:20 BP 186/73 01/23/18 15:20 Pulse Ox 98 01/23/18 15:20 Intake & Output 01/22/18 01/23/18 01/23/18 18:59 06:59 18:59 Intake Total 180 710 Balance 180 710 Weight 63.5 kg Intake: IV 150 Intake, IV Titration 160 Amount Sodium Chloride 0.9% 1, 160 000 ml @ 20 mls/hr IV . Q24H [facility] Rx#:[id number] Oral 180 400 Other: # Voids 2 2 1 - Exam Physical examination: PHYSICAL EXAMINATION: Patient is resting comfortably in bed. VITAL SIGNS: Blood pressure is [186/73]. Heart rate is [67]. Respiration is [18] . Temperature is [97.0]. HEENT: Head is atraumatic, neck is supple, there were no carotid bruits. CHEST: Lungs are clear to auscultation and percussion. CARDIAC: S1, S2 normal rate and rhythm. There is no murmur. ABDOMEN: Soft and nontender. Bowel sounds are present. EXTREMITIES: There is no pedal edema. Peripheral pulses are present. Neurological examination: Patient is resting comfortably. Neurological examination is nonfocal today. - Labs CBC & Chem 7: 01/20/18 14:29 01/20/18 14:29 Labs: Abnormal Lab Results - Last 24 Hours (Table) 01/22/18 01/23/18 01/23/18 Range/Units 20:54 05:59 11:42 POC Glucose (mg/dL) 229 H 114 H 161 H (75-99) mg/dL 01/23/18 Range/Units 16:57 POC Glucose (mg/dL) 108 H (75-99) mg/dL Assessment and Plan (1) Syncope and collapse Current Visit: Yes Status: Acute Code(s): R55 - SYNCOPE AND COLLAPSE SNOMED Code(s): 714864827 (2) Hypertensive crisis Current Visit: No Status: Acute Code(s): I10 - ESSENTIAL (PRIMARY) HYPERTENSION SNOMED Code(s): 649515081 (3) History of diabetes mellitus Current Visit: Yes Status: Acute Code(s): Z86.39 - PERSONAL HISTORY OF ENDO , NUTRITIONAL AND METABOLIC DISEASE SNOMED Code(s): 742198040 (4) Laceration of scalp Current Visit: Yes Status: Acute Code(s): S01.01XA - LACERATION WITHOUT FOREIGN BODY OF SCALP, INITIAL ENCOUNTER SNOMED Code(s): 816008146 Plan: Patient continues to do well today. She is being considered for discharge home today as she did undergo endoscopy procedure by gastroenterology. She has history of esophageal stricture and this was treated today. She was seen by cardiology and has no evidence of acute coronary event. She is being considered for discharge home today. She is to continue with all of her current medications. She may follow-up in the outpatient neurology clinic in 3- 4 weeks. We did once again review her recent EEG study with her in detail. EEG failed to reveal any cause of syncope and/or seizure. We will continue to follow her for any recurrent events. Her overall prognosis at this time remains guarded.
--- NOTE | 2018-01-23 20:23 | DS ---
DISCHARGE SUMMARY DATE OF SERVICE: 01/23/2018 FINAL DIAGNOSES: 1. Syncope, possibly vasovagal. 2. Anemia. 3. Chronic dysphagia with esophageal stricture, status post EGD and dilatation. 4. History of coronary artery disease, coronary artery bypass grafting. 5. 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 6. Diabetes mellitus, type 2. 7. Blind in right eye. 8. Hyperlipidemia. 9. Hypertension. 10.Hypothyroidism. 11.Hiatal hernia. 12.Chronic pain syndrome. 13.History of degenerative joint disease. 14.History of peripheral neuropathy. 15.Chronic urinary incontinence. DISCHARGE DISPOSITION: The patient will be discharged in stable condition with guarded prognosis. HISTORY OF PRESENT ILLNESS: This 82-year-old woman with a past medical history of multiple medical problems was admitted with syncope, treated symptomatically. Patient also had anemia. EGD and dilatation was done. On exam, vitals are stable. CARDIOVASCULAR SYSTEM: S1, S2 muffled. ABDOMEN: Soft. NERVOUS SYSTEM: No focal deficit. DISCHARGE ADVICE AND MEDICATIONS: 1. Diet is cardiac. 2. Activity limited until followup. 3. Follow up with Dr. Roth in 2 to 3 days. 4. Follow up with Dr. Ramirez in 2 to 3 days. 5. Tylenol 500 mg b.i.d. p.r.n. 6. Norvasc 5 mg p.o. b.i.d. 7. Lipitor 40 mg at bedtime. 8. Benazepril 20 mg p.o. b.i.d. 9. Brimonidine eye drops. 10.Vitamin D3 3000 daily. 11.Plavix 75 mg p.o. daily. 12.Cranberry 8.4 grams p.o. daily. 13.Pepcid 20 mg p.o. daily. 14.DiaBeta 10 mg p.o. b.i.d. 15.Xalatan 0.05% one drop both eyes. 16.Synthroid 50 mcg p.o. daily. 17.Meclizine 12.5 mg q.8 p.r.n. 18.Metformin 1000 mg p.o. b.i.d. 19.Prazosin 1 mg p.o. b.i.d. Once again, the patient will be discharged in stable condition with guarded prognosis. MMODL / IJN: [id number] /
== END 2018-01-23 19:20 | disposition home or self-care (01) | DRG 312 ==
LOC: EC 13:58 → 6SEL 16:50
PROVIDERS: ADMIT Hospitalist; ATTEND Hospitalist
PROC: 0HQ0XZZ Repair Scalp Skin, External Approach (ICD-10-PCS; principal; 2018-01-20)
PROC: 0D758ZZ Dilation of Esophagus, Via Natural or Artificial Opening Endoscopic (ICD-10-PCS; 2018-01-23)
DX: R55 Syncope and collapse (principal); I69.354 Hemiplegia and hemiparesis following cerebral infarction affecting left non-dominant side; S01.01XA Laceration without foreign body of scalp, initial encounter; I25.10 Atherosclerotic heart disease of native coronary artery without angina pectoris; D64.9 Anemia, unspecified; E03.9 Hypothyroidism, unspecified; E11.319 Type 2 diabetes mellitus with unspecified diabetic retinopathy without macular edema; E11.42 Type 2 diabetes mellitus with diabetic polyneuropathy; E78.5 Hyperlipidemia, unspecified; G89.4 Chronic pain syndrome; H54.61 Unqualified visual loss, right eye, normal vision left eye; I16.0 Hypertensive urgency; K21.9 Gastro-esophageal reflux disease without esophagitis; K22.2 Esophageal obstruction; K44.9 Diaphragmatic hernia without obstruction or gangrene; I10 Essential (primary) hypertension; M15.9 Polyosteoarthritis, unspecified; R13.10 Dysphagia, unspecified; N39.3 Stress incontinence (female) (male); W01.0XXA Fall on same level from slipping, tripping and stumbling without subsequent striking against object, initial encounter; Y92.480 Sidewalk as the place of occurrence of the external cause; Y92.009 Unspecified place in unspecified non-institutional (private) residence as the place of occurrence of the external cause; Z79.02 Long term (current) use of antithrombotics/antiplatelets; Z79.84 Long term (current) use of oral hypoglycemic drugs; Z79.899 Other long term (current) drug therapy; Z90.710 Acquired absence of both cervix and uterus; Z95.1 Presence of aortocoronary bypass graft
CPT/HCPCS: 12002; 36415; 43249; 70450; 71046; 72125; 80053; 80061; 81003; 82550; 82553; 83036; 84484; 85025; 85610; 85730; 93005; 93306; 93880; 95816; 96361; 96374; 96375; 96376; 99285

== ENCOUNTER 2018-01-30 11:31 | Inpatient (IN) | payer MEDICARE, OTHER ==
[2018-01-30 12:02] LABS: Glucose,Whole Blood 234 mg/dL (75-99)
--- NOTE | 2018-01-30 12:13 | ED ---
General Adult HPI - General Chief complaint: Syncope Stated complaint: Syncope/High BS Time Seen by Provider: 01/30/18 11:35 Source: patient, family, RN notes reviewed Mode of arrival: wheelchair Limitations: no limitations - History of Present Illness Initial comments: this is an 82-year-old female presents emergency Department because of a near- syncopal episode. The patient a witness it is not in the room the patient herself does not remember the episode so the information we are obtaining is from the granddaughter which is what she heard from the caregiver. She was told that the grandmother was sitting in a chair and nearly passed out but never was quite unresponsive. Patient remained somewhat lethargic shortly thereafter and eventually came back to her baseline. At no time did the patient complained of chest pain or difficulty breathing the patient had no headache however the granddaughter states that about 10 days ago she fell hit her head and needs niall. The also indicates she might be on blood thinners but they don't know what. Patient denies any abdominal pain patient denies any headache patient denies any numbness weakness. Patient denies any nausea vomiting diarrhea. Patient denies any chest pain or palpitations or shortness of breath. - Related Data Home Medications Medication Instructions Recorded Confirmed Benazepril HCl 20 mg PO BID 11/05/13 01/30/18 Clopidogrel Bisulfate [Plavix] 75 mg PO DAILY 11/05/13 01/30/18 glyBURIDE [Diabeta] 10 mg PO BID-W/MEALS 11/05/13 01/30/18 Cholecalciferol [Vitamin D3] 3,000 unit PO DAILY 02/05/15 01/30/18 Atorvastatin Calcium [Lipitor] 40 mg PO HS 02/18/16 01/30/18 Cranberry Fruit Extract [Cranberry] 8,400 mg PO DAILY 02/18/16 01/30/18 amLODIPine BESYLATE [Norvasc] 5 mg PO BID 02/18/16 01/30/18 Levothyroxine Sodium [Synthroid] 50 mcg PO DAILY 01/07/17 01/30/18 Meclizine HCl 12.5 mg PO Q8H PRN 01/07/17 01/30/18 Famotidine [Pepcid] 20 mg PO DAILY 07/27/17 01/30/18 Prazosin [Minipress] 1 mg PO BID 07/27/17 01/30/18 Acetaminophen [Tylenol] 500 mg PO BID PRN 01/18/18 01/30/18 Brimonidine Tartrate/Timolol 1 drop BOTH EYES DAILY 01/20/18 01/30/18 [Combigan 0.2%-0.5% Eye Drops] Latanoprost Ophth [Xalatan 0.005%] 1 drops BOTH EYES HS 01/20/18 01/30/18 metFORMIN HCL 1,000 mg PO BID 01/20/18 01/30/18 Allergies Allergy/AdvReac Type Severity Reaction Status Date / Time aspirin Allergy Rash/Hives Verified 01/30/18 13:30 fish derived Allergy Rash/Hives Verified 01/30/18 13:30 Iodinated Contrast- Oral and Allergy Rash/Hives Verified 01/30/18 13:30 IV Dye [Iodinated Contrast Media - IV Dye] Iodine and Iodide Containing Allergy Rash/Hives Verified 01/30/18 13:30 Produc shellfish derived [Shellfish] Allergy Rash/Hives Verified 01/30/18 13:30 Review of Systems ROS Statement: Those systems with pertinent positive or pertinent negative responses have been documented in the HPI. ROS Other: All systems not noted in ROS Statement are negative. Past Medical History Past Medical History: Coronary Artery Disease (CAD), Chest Pain / Angina, CVA/ TIA, Diabetes Mellitus, Eye Disorder, GERD/Reflux, Hyperlipidemia, Hypertension , Osteoarthritis (OA), Syncope, Thyroid Disorder Additional Past Medical History / Comment(s): 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 History of Any Multi-Drug Resistant Organisms: None Reported Past Surgical History: Bladder Surgery, Cholecystectomy, Coronary Bypass/CABG, Heart Catheterization, Hysterectomy Additional Past Surgical History / Comment(s): CABG-2007, Ccath 2007, multiple EGDs/dilations with biopsies, COLONOSCOPY. Cataracts, D&C, bladder suspension. Past Anesthesia/Blood Transfusion Reactions: Motion Sickness, Postoperative Nausea & Vomiting (PONV) Past Psychological History: No Psychological Hx Reported Smoking Status: Never smoker Past Alcohol Use History: None Reported Past Drug Use History: None Reported - Past Family History Father Family Medical History: Liver Disease Additional Family Medical History / Comment(s): Father of cirrhosis. He was a drinker. Mother Family Medical History: Unable to Obtain Additional Family Medical History / Comment(s): Pt states she does not know her mother's medical history. Son(s) Family Medical History: Renal Disease Daughter(s) Family Medical History: Cancer General Exam - General Exam Comments Initial Comments: GENERAL: Patient is well-developed and well-nourished. Patient is nontoxic and well- hydrated and is in mild distress. ENT: Neck is soft and supple. No significant lymphadenopathy is noted. Oropharynx is clear. Moist mucous membranes. Neck has full range of motion without eliciting any pain. EYES: The sclera were anicteric and conjunctiva were pink and moist. Extraocular movements were intact and pupils were equal round and reactive to light. Eyelids were unremarkable. PULMONARY: Unlabored respirations. Good breath sounds bilaterally. No audible rales rhonchi or wheezing was noted. CARDIOVASCULAR: There is a regular rate and rhythm without any murmurs gallops or rubs. ABDOMEN: Soft and nontender with normal bowel sounds. No palpable organomegaly was noted. There is no palpable pulsatile mass. SKIN: Skin is clear with no lesions or rashes and otherwise unremarkable. NEUROLOGIC: Patient is alert and oriented x3. Cranial nerves II through XII are grossly intact. Motor and sensory are also intact. Normal speech, volume and content. Symmetrical smile. MUSCULOSKELETAL: Normal extremities with adequate strength and full range of motion. LYMPHATICS: No significant lymphadenopathy is noted PSYCHIATRIC: Normal psychiatric evaluation. Normal interpersonal interactions appears functionally intact in deals appropriately with others. No signs of depression. No signs of anxiety. Limitations: no limitations Course Vital Signs 01/30/18 01/30/18 01/30/18 11:33 12:31 13:26 Temperature 98.2 F Pulse Rate 72 70 Pulse Rate [ 68 Right Sitting Pulse Oximetery ] Pulse Rate [ 73 Right Standing Pulse Oximetery ] Pulse Rate [ 66 Right Supine Pulse Oximetery ] Respiratory 16 17 Rate Blood Pressure 125/64 158/70 Blood Pressure 148/67 [Left Arm Sitting] Blood Pressure 148/61 [Left Arm Standing] Blood Pressure 168/72 [Left Arm Supine] O2 Sat by Pulse 97 100 Oximetry Medical Decision Making - Medical Decision Making EKG shows normal sinus rhythm at 69 bpm DC interval 236 QRS is 88 QT interval 412 QTC is 441. Patient's EKG shows no ST segment elevation or depression no T- wave abnormalities noted however the patient does have Q waves in leads 3 and aVF Chest x-ray shows no acute abnormality. Patient was still feeling weak and had no expiration for the near syncopal episode. Patient will be admitted for near-syncope I spoke with Dr. medeiros he agreed to admit the patient admitted patient I wrote admitting orders. - Lab Data Result diagrams: 01/30/18 12:14 01/30/18 12:14 Lab Results 01/30/18 01/30/18 01/30/18 Range/Units 11:57 12:14 12:14 WBC 6.5 (3.8-10.6) k/uL RBC 3.46 L (3.80-5.40) m/uL Hgb 10.0 L (11.4-16.0) gm/dL Hct 30.1 L (34.0-46.0) % MCV 86.9 (80.0-100.0) fL MCH 28.9 (25.0-35.0) pg MCHC 33.3 (31.0-37.0) g/dL RDW 14.4 (11.5-15.5) % Plt Count 237 (150-450) k/uL Neutrophils % 85 % Lymphocytes % 9 % Monocytes % 5 % Eosinophils % 0 % Basophils % 0 % Neutrophils # 5.5 (1.3-7.7) k/uL Lymphocytes # 0.6 L (1.0-4.8) k/uL Monocytes # 0.3 (0-1.0) k/uL Eosinophils # 0.0 (0-0.7) k/uL Basophils # 0.0 (0-0.2) k/uL PT (9.0-12.0) sec INR (<1.2) APTT (22.0-30.0) sec Sodium (137-145) mmol/L Potassium (3.5-5.1) mmol/L Chloride (98-107) mmol/L Carbon Dioxide (22-30) mmol/L Anion Gap mmol/L BUN (7-17) mg/dL Creatinine (0.52-1.04) mg/dL Est GFR (CKD-EPI)AfAm (>60 ml/min/1.73 sqM) Est GFR (CKD-EPI)NonAf (>60 ml/min/1.73 sqM) Glucose (74-99) mg/dL POC Glucose (mg/dL) 234 H (75-99) mg/dL POC Glu [employer] Estate In[employer] ID Saba Lacy Plasma Lactic Acid Evelio (0.7-2.0) mmol/L Calcium (8.4-10.2) mg/dL Total Bilirubin (0.2-1.3) mg/dL AST (14-36) U/L ALT (9-52) U/L Alkaline Phosphatase (38-126) U/L Total Creatine Kinase 80 (30-135) U/L CK-MB (CK-2) 1.5 (0.0-2.4) ng/mL CK-MB (CK-2) Rel Index 1.9 Troponin I <0.012 (0.000-0.034) ng/mL Total Protein (6.3-8.2) g/dL Albumin (3.5-5.0) g/dL Urine Color Urine Appearance (Clear) Urine pH (5.0-8.0) Ur Specific [place] (1.001-1.035) Urine Protein (Negative) Urine Glucose (UA) (Negative) Urine Ketones (Negative) Urine Blood (Negative) Urine Nitrite (Negative) Urine Bilirubin (Negative) Urine Urobilinogen (<2.0) mg/dL Ur Leukocyte Esterase (Negative) Urine WBC (0-5) /hpf Ur Squamous Epith Cells (0-4) /hpf Hyaline Casts (0-2) /lpf Urine Mucus (None) /hpf 01/30/18 01/30/18 01/30/18 Range/Units 12:14 12:14 12:22 WBC (3.8-10.6) k/uL RBC (3.80-5.40) m/uL Hgb (11.4-16.0) gm/dL Hct (34.0-46.0) % MCV (80.0-100.0) fL MCH (25.0-35.0) pg MCHC (31.0-37.0) g/dL RDW (11.5-15.5) % Plt Count (150-450) k/uL Neutrophils % % Lymphocytes % % Monocytes % % Eosinophils % % Basophils % % Neutrophils # (1.3-7.7) k/uL Lymphocytes # (1.0-4.8) k/uL Monocytes # (0-1.0) k/uL Eosinophils # (0-0.7) k/uL Basophils # (0-0.2) k/uL PT 11.0 (9.0-12.0) sec INR 1.1 (<1.2) APTT 22.4 (22.0-30.0) sec Sodium 139 (137-145) mmol/L Potassium 4.5 (3.5-5.1) mmol/L Chloride 108 H (98-107) mmol/L Carbon Dioxide 21 L (22-30) mmol/L Anion Gap 10 mmol/L BUN 22 H (7-17) mg/dL Creatinine 1.11 H (0.52-1.04) mg/dL Est GFR (CKD-EPI)AfAm 54 (>60 ml/min/1.73 sqM) Est GFR (CKD-EPI)NonAf 47 (>60 ml/min/1.73 sqM) Glucose 209 H (74-99) mg/dL POC Glucose (mg/dL) (75-99) mg/dL POC Glu [employer] Estate Instructor ID Plasma Lactic Acid Evelio 1.1 (0.7-2.0) mmol/L Calcium 8.8 (8.4-10.2) mg/dL Total Bilirubin 0.5 (0.2-1.3) mg/dL AST 17 (14-36) U/L ALT 28 (9-52) U/L Alkaline Phosphatase 85 (38-126) U/L Total Creatine Kinase (30-135) U/L CK-MB (CK-2) (0.0-2.4) ng/mL CK-MB (CK-2) Rel Index Troponin I (0.000-0.034) ng/mL Total Protein 6.2 L (6.3-8.2) g/dL Albumin 3.7 (3.5-5.0) g/dL Urine Color Urine Appearance (Clear) Urine pH (5.0-8.0) Ur Specific [place] (1.001-1.035) Urine Protein (Negative) Urine Glucose (UA) (Negative) Urine Ketones (Negative) Urine Blood (Negative) Urine Nitrite (Negative) Urine Bilirubin (Negative) Urine Urobilinogen (<2.0) mg/dL Ur Leukocyte Esterase (Negative) Urine WBC (0-5) /hpf Ur Squamous Epith Cells (0-4) /hpf Hyaline Casts (0-2) /lpf Urine Mucus (None) /hpf 01/30/18 Range/Units 13:15 WBC (3.8-10.6) k/uL RBC (3.80-5.40) m/uL Hgb (11.4-16.0) gm/dL Hct (34.0-46.0) % MCV (80.0-100.0) fL MCH (25.0-35.0) pg MCHC (31.0-37.0) g/dL RDW (11.5-15.5) % Plt Count (150-450) k/uL Neutrophils % % Lymphocytes % % Monocytes % % Eosinophils % % Basophils % % Neutrophils # (1.3-7.7) k/uL Lymphocytes # (1.0-4.8) k/uL Monocytes # (0-1.0) k/uL Eosinophils # (0-0.7) k/uL Basophils # (0-0.2) k/uL PT (9.0-12.0) sec INR (<1.2) APTT (22.0-30.0) sec Sodium (137-145) mmol/L Potassium (3.5-5.1) mmol/L Chloride (98-107) mmol/L Carbon Dioxide (22-30) mmol/L Anion Gap mmol/L BUN (7-17) mg/dL Creatinine (0.52-1.04) mg/dL Est GFR (CKD-EPI)AfAm (>60 ml/min/1.73 sqM) Est GFR (CKD-EPI)NonAf (>60 ml/min/1.73 sqM) Glucose (74-99) mg/dL POC Glucose (mg/dL) (75-99) mg/dL POC Glu [employer] Estate Instructor ID Plasma Lactic Acid Evelio (0.7-2.0) mmol/L Calcium (8.4-10.2) mg/dL Total Bilirubin (0.2-1.3) mg/dL AST (14-36) U/L ALT (9-52) U/L Alkaline Phosphatase (38-126) U/L Total Creatine Kinase (30-135) U/L CK-MB (CK-2) (0.0-2.4) ng/mL CK-MB (CK-2) Rel Index Troponin I (0.000-0.034) ng/mL Total Protein (6.3-8.2) g/dL Albumin (3.5-5.0) g/dL Urine Color Yellow Urine Appearance Clear (Clear) Urine pH 6.0 (5.0-8.0) Ur Specific [place] 1.016 (1.001-1.035) Urine Protein Trace H (Negative) Urine Glucose (UA) Trace H (Negative) Urine Ketones Negative (Negative) Urine Blood Negative (Negative) Urine Nitrite Negative (Negative) Urine Bilirubin Negative (Negative) Urine Urobilinogen 2.0 (<2.0) mg/dL Ur Leukocyte Esterase Trace H (Negative) Urine WBC 2 (0-5) /hpf Ur Squamous Epith Cells 3 (0-4) /hpf Hyaline Casts 21 H (0-2) /lpf Urine Mucus Rare H (None) /hpf Disposition Clinical Impression: Near syncope, Generalized weakness Disposition: ADMITTED IP TO THIS HOSP Referrals: Esvin Ramirez DO [Primary Care Provider] - 1-2 days Time of Disposition: 14:11
[2018-01-30 12:24] LABS: Basophils % (A) 0 %; Eosinophils % (A) 0 %; HCT 30.1 % (34.0-46.0); Lymphocytes # (A) 0.6 k/uL (1.0-4.8); Lymphocytes % (A) 9 %; MCH 28.9 pg (25.0-35.0); MCHC 33.3 g/dL (31.0-37.0); MCV 86.9 fL (80.0-100.0); Mean Platelet Volume 7.6; Monocytes # (A) 0.3 k/uL (0-1.0); Monocytes % (A) 5 %; Neutrophils # (A) 5.5 k/uL (1.3-7.7); Neutrophils % (A) 85 %; Platelet Count 237 k/uL (150-450); RBC 3.46 m/uL (3.80-5.40); RDW 14.4 % (11.5-15.5); WBC 6.5 k/uL (3.8-10.6)
[2018-01-30 12:34] LABS: Albumin 3.7 g/dL (3.5-5.0); Calcium 8.8 mg/dL (8.4-10.2); Potassium 4.5 mmol/L (3.5-5.1); Total Bilirubin 0.5 mg/dL (0.2-1.3); Total Protein 6.2 g/dL (6.3-8.2)
[2018-01-30 12:40] LABS: INR 1.1 (<1.2)
[2018-01-30 12:41] LABS: Partial Thromboplastin Time 22.4 sec (22.0-30.0)
[2018-01-30 12:48] LABS: Creatine Kinase 80 U/L (30-135)
--- NOTE | 2018-01-30 12:55 | CT ---
EXAMINATION TYPE: CT brain wo con DATE OF EXAM: 01/30/2018 COMPARISON: 01/20/2018 HISTORY: dizziness, elevated blood sugar CT DLP: 1082 mGycm Automated exposure control for dose reduction was used. FINDINGS: Calcification the basal ganglia is stable. Ventricular system is compatible with the patient's age. No midline shift or mass effect. No acute hemorrhage. Calvarium intact. Hyperostosis of the calvarium. Chronic findings involving the right globe noted. Pa rtially empty sella turcica noted. IMPRESSION: NO ACUTE PROCESS.
[2018-01-30 13:01] LABS: Creatine Kinase MB 1.5 ng/mL (0.0-2.4); Troponin I <0.012 ng/mL (0.000-0.034)
--- NOTE | 2018-01-30 13:09 | XR ---
EXAMINATION TYPE: XR chest 2V DATE OF EXAM: 01/30/2018 COMPARISON: 01/20/2018 HISTORY: Weakness and hyperglycemia TECHNIQUE: Frontal and lateral views of the chest are obtained. FINDINGS: There is no focal air space opacity, pleural effusion, or pneumothorax seen. The cardiac silhouette size is within normal limits. Post CABG changes are noted of the chest. The osseous struc tures are intact. High riding humeral head is seen on the left suggestive of chronic rotator cuff inj ury. Extensive degenerative changes are seen of the glenohumeral joints and moderate of the thoracic spine. IMPRESSION: Chronic changes with no acute cardiopulmonary process.
[2018-01-30 13:51] LABS: Appearance,Urine Clear (Clear); Bilirubin,Urine Negative (Negative); Blood,Urine Negative (Negative); Color,Urine Yellow; Glucose,Urine (UA) Trace (Negative); Hyaline Casts,Urine 21 /lpf (0-2); Ketones,Urine Negative (Negative); Leukocyte Esterase,Urine Trace (Negative); Mucus,Urine Rare /hpf; Nitrite,Urine Negative (Negative); Protein,Urine Trace (Negative); Specific Gravity,Urine 1.016 (1.001-1.035); Squamous Epithelial Cell,Urine 3 /hpf (0-4); WBC,Urine 2 /hpf (0-5)
[2018-01-30] MEDS ORDERED: NITROGLYCERIN SL TABS 0.4 MG TAB SUBLINGUAL PRN (14:11)
[2018-01-30] MEDS ORDERED: MECLIZINE 12.5 MG TAB PO PRN (16:05)
[2018-01-30] MEDS ORDERED: ALPRAZolam 0.25 MG TAB PO PRN (16:07)
--- NOTE | 2018-01-30 16:56 | HP ---
HISTORY AND PHYSICAL DATE OF SERVICE: 01/30/2018 CHIEF COMPLAINT: Syncope. HISTORY OF PRESENT ILLNESS: This 82-year-old woman with a past medical history of multiple complex medical issues including CAD, CVA, TIA, diabetes mellitus, GERD, hypertension, hyperlipidemia, DJD and CVA, being followed by Dr. Ramirez in the outpatient setting was recently admitted to [facility]. Evaluation showed possible vasovagal syncope. The patient also had a carotid stenosis on the left side which is less than 69%. The patient went home. Patient is apparently doing fine but today the patient had apparently a near syncopal episode. The patient also complaining of some dizziness. The patient had apparently head injury a few days ago because the patient nearly passed out and because of multiple medical problems patient was taken to [facility] and was admitted for evaluation and treatment. There is no history of fever, rigors. No headache, seizures. The patient also had fluctuating blood sugars. Apparently patient is off metformin because of concerns of renal failure but however the blood sugar was high according to the patient more than 200 at home. PAST MEDICAL: CAD, CVA, TIA, diabetes mellitus, history of GERD hyperlipidemia, DJD. MEDICATIONS: Prior to admission include home medications are reviewed, which include: 1. Metformin 1000 mg p.o. b.i.d. 2. DiaBeta 10 mg b.i.d. with meals. 3. Norvasc 5 mg p.o. b.i.d. 4. Minipress 1 mg p.o. b.i.d. 5. Meclizine 12.5 mg q.8h p.r.n. 6. Synthroid 50 mg p.o. daily. 7. Xalatan 0.05% 1 drop both eyes q.h.s. 8. Pepcid 20 mg daily. 9. Cranberry 0.4 grams p.o. daily. 10.Plavix 75 mg daily vitamin D3 3000 daily. 11.Combigan 1 drop both eyes twice daily. 12.Benazepril 20 mg p.o. b.i.d. 13.Lipitor 40 mg q.a.m. 14.Tylenol 500 mg b.i.d. p.r.n. ALLERGIES: ASPIRIN, FISH, IODINATED CONTRAST, SHELLFISH. FAMILY HISTORY: History of cancer, cirrhosis and ETOH in the family. SOCIAL HISTORY: No history of smoking. No history of alcohol. REVIEW OF SYSTEMS: ENT: Diminished hearing and vision, otherwise as mentioned earlier. RESPIRATORY: No cough, hemoptysis. CARDIOVASCULAR: As mentioned earlier. GI: No nausea. : No dysuria. NERVOUS SYSTEM: As mentioned earlier. ALLERGY/IMMUNOLOGY: No asthma or hay fever. MUSCULOSKELETAL: As mentioned earlier. HEMATOLOGY: No history of anemia. ENDOCRINE: Diabetes and hypothyroidism present. CONSTITUTIONAL: As mentioned earlier. DERMATOLOGY: Negative. RHEUMATOLOGY: Negative. PSYCHIATRY: As mentioned earlier. PHYSICAL EXAM: Patient is alert, oriented x2. Pulse is 57, blood pressure 150/87, respiration 18, temperature 98.2, pulse ox 100% on 2 L. HEENT: Conjunctivae normal. Oral mucosa moist. 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 NECK: No jugular venous distention. No carotid bruit. No lymph node enlargement. CARDIOVASCULAR: S1, S2. No S3, no S4. RESPIRATORY: Breath sounds diminished in the bases. A few scattered rhonchi. No crackles. ABDOMEN: Soft, nontender. No mass palpable. LEGS: No edema, no swelling. NERVOUS SYSTEM: Higher functions as mentioned. Moves all four limbs. No focal motor deficits. LYMPHATICS: No lymphadenopathy in the neck, axillae, groin. SKIN: No ulcer, rash, bleeding. LABS: WBC 6, hemoglobin 10, sodium 130, potassium 4.5, creatinine is 1.16. ASSESSMENT: 1. Syncope, possible transient ischemic attack. 2. Possible vasovagal syncope or orthostatic hypotension. 3. Chronic dysphagia with recent EGD and dilatation of esophageal stricture. 4. Coronary artery disease, CABG history. 5. History of left-sided weakness from previous stroke and cerebrovascular accident. 6. Diabetes mellitus type 2. 7. Blindness, right eye. 8. Hypertension. 9. Hyperlipidemia. 10.Hypothyroidism. 11.Hiatal hernia. 12.Chronic pain syndrome. 13.History of degenerative joint disease. 14.History of peripheral neuropathy. 15.Chronic urinary incontinence. RECOMMENDATIONS AND DISCUSSION: I recommend to continue current management and symptomatic treatment. Otherwise closely monitor. I would also recommend orthostatic vitals. Neurology evaluation. Monitor blood sugars closely. Resume the home medications. Guarded prognosis because of multiple complex medical issues. Further recommendations to follow. Hold the aspirin because the patient is ALLERGIC TO ASPIRIN. We will continue the Plavix. MMODL / IJN: [id number] /
[2018-01-30] MEDS: INSULIN ASPART 100 UNIT/ML 1 ML 10 ML VIAL SQ SCH ×2 (17:18→20:57)
[2018-01-30 17:29] LABS: Glucose,Whole Blood 163 mg/dL (75-99)
[2018-01-30] MEDS: glipiZIDE 10 MG TAB PO SCH (17:51)
[2018-01-30 18:54] LABS: Creatine Kinase 73 U/L (30-135)
[2018-01-30 19:07] LABS: Creatine Kinase MB 1.4 ng/mL (0.0-2.4); Troponin I <0.012 ng/mL (0.000-0.034)
[2018-01-30 20:37] LABS: Glucose,Whole Blood 210 mg/dL (75-99)
[2018-01-30] MEDS: amLODIPine 5 MG TAB PO SCH (20:54)
[2018-01-30] MEDS: LATANOPROST 0.005% OPHTH DROPS 2.5 ML BTL BOTH EYES SCH (20:55)
[2018-01-30] MEDS: MELATONIN 3 MG TABLET PO SCH (20:55)
[2018-01-30] MEDS: PRAZOSIN 1 MG CAP PO SCH (20:55)
[2018-01-30] MEDS: HEPARIN SODIUM,PORCINE 5,000 UNIT/ML 1 ML VIAL SQ SCH (20:55)
[2018-01-30] MEDS: LISINOPRIL 20 MG TAB PO SCH (20:55)
[2018-01-30] MEDS: ATORVASTATIN 40 MG TAB PO SCH (20:55)
[2018-01-30] MEDS: ACETAMINOPHEN TAB 500 MG TAB PO PRN (21:07)
[2018-01-31 01:05] LABS: Creatine Kinase 58 U/L (30-135)
[2018-01-31 01:18] LABS: Creatine Kinase MB 1.1 ng/mL (0.0-2.4); Troponin I <0.012 ng/mL (0.000-0.034)
[2018-01-31 01:58] LABS: Glucose,Whole Blood 155 mg/dL (75-99)
[2018-01-31 02:32] LABS: Hemoglobin A1C 7.4 % (4.0-6.0)
[2018-01-31 05:57] LABS: Glucose,Whole Blood 159 mg/dL (75-99)
[2018-01-31 06:07] LABS: Basophils % (A) 0 %; Eosinophils # (A) 0.1 k/uL (0-0.7); Eosinophils % (A) 2 %; HCT 30.3 % (34.0-46.0); HGB 9.9 gm/dL (11.4-16.0); Lymphocytes # (A) 0.9 k/uL (1.0-4.8); Lymphocytes % (A) 17 %; MCH 28.5 pg (25.0-35.0); MCHC 32.6 g/dL (31.0-37.0); MCV 87.4 fL (80.0-100.0); Monocytes # (A) 0.3 k/uL (0-1.0); Monocytes % (A) 6 %; Neutrophils # (A) 3.7 k/uL (1.3-7.7); Neutrophils % (A) 73 %; Platelet Count 256 k/uL (150-450); RBC 3.47 m/uL (3.80-5.40); RDW 14.2 % (11.5-15.5); WBC 5.1 k/uL (3.8-10.6)
[2018-01-31] MEDS: LEVOTHYROXINE 50 MCG TAB PO SCH (06:20)
[2018-01-31] MEDS: glipiZIDE 10 MG TAB PO SCH ×2 (06:20→16:49)
[2018-01-31] MEDS: INSULIN ASPART 100 UNIT/ML 1 ML 10 ML VIAL SQ SCH ×3 (06:21→16:49)
[2018-01-31 06:56] LABS: Calcium 8.9 mg/dL (8.4-10.2); Potassium 4.3 mmol/L (3.5-5.1)
--- NOTE | 2018-01-31 08:09 | P.CRDCN ---
History of Present Illness Consult date: 01/31/18 Requesting physician: Zay E Sheet Chief complaint: Dizziness History of present illness: This is a pleasant 82-year-old female with past medical history significant for coronary artery disease and prior bypass surgery 10 years ago, hypertension, hyperlipidemia, diabetes, hypothyroidism, who was recently in the hospital earlier this month after experiencing a fall with a questionable syncope. Patient is also known to have an esophageal stricture, she underwent an EGD on this most recent admission which revealed a hiatal hernia and esophageal stricture which was dilated at that time. Patient presents to the hospital on this occasion with symptoms of dizziness. She states she did not have any passing out spells, but was extremely dizzy. She also states that she had episodes of vomiting prior to coming into the hospital. Ordering to the patient , her doctor had told her to stop taking her metformin and her sugars have been running quite high at home, she states that prior to her most recent admission to the hospital, her sugars were running quite high at that time as well. He denies having any chest discomfort, no palpitations. Blood sugar on this admission 210, white blood cell count 6.5, hemoglobin 10.0, platelet count 237. Sodium 139, potassium 4.5, BUN 22, creatinine 1.1. Troponins have been negative 3. Scan of the brain was performed which did not reveal any acute process. Chest x-ray showed chronic changes with no acute cardiopulmonary process. The pressure on arrival here 124/60 with a heart rate in the 60s. Orthostatics were also obtained which came back to be negative. EKG on admission showed a normal sinus rhythm with T-wave inversion in the lateral leads. An echocardiogram with Doppler study was performed in February which revealed an ejection fraction of 50-55%. The time of my examination this morning, patient is sleepy, she denies any dizziness or lightheadedness this morning. No chest discomfort, no palpitations. Lunch sugar this morning 143. 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 History of Any Multi-Drug Resistant Organisms: None Reported Past Surgical History: Bladder Surgery, Cholecystectomy, Coronary Bypass/CABG, Heart Catheterization, Hysterectomy Additional Past Surgical History / Comment(s): CABG-2007, Ccath 2007, multiple EGDs/dilations with biopsies, COLONOSCOPY. Cataracts, D&C, bladder suspension. Past Anesthesia/Blood Transfusion Reactions: Motion Sickness, Postoperative Nausea & Vomiting (PONV) Smoking Status: Never smoker - Past Family History Father Family Medical History: Liver Disease Additional Family Medical History / Comment(s): Father of cirrhosis. He was a drinker. Mother Family Medical History: Unable to Obtain Additional Family Medical History / Comment(s): Pt states she does not know her mother's medical history. Son(s) Family Medical History: Renal Disease Daughter(s) Family Medical History: Cancer Medications and Allergies Home Medications Medication Instructions Recorded Confirmed Type Benazepril HCl 20 mg PO BID 11/05/13 01/30/18 History Clopidogrel Bisulfate [Plavix] 75 mg PO DAILY 11/05/13 01/30/18 History glyBURIDE [Diabeta] 10 mg PO BID-W/MEALS 11/05/13 01/30/18 History Cholecalciferol [Vitamin D3] 3,000 unit PO DAILY 02/05/15 01/30/18 History Atorvastatin Calcium [Lipitor] 40 mg PO HS 02/18/16 01/30/18 History Cranberry Fruit Extract [Cranberry] 8,400 mg PO DAILY 02/18/16 01/30/18 History amLODIPine BESYLATE [Norvasc] 5 mg PO BID 02/18/16 01/30/18 History Levothyroxine Sodium [Synthroid] 50 mcg PO DAILY 01/07/17 01/30/18 History Meclizine HCl 12.5 mg PO Q8H PRN 01/07/17 01/30/18 History Famotidine [Pepcid] 20 mg PO DAILY 07/27/17 01/30/18 History Prazosin [Minipress] 1 mg PO BID 07/27/17 01/30/18 History Acetaminophen [Tylenol] 500 mg PO BID PRN 01/18/18 01/30/18 History Brimonidine Tartrate/Timolol 1 drop BOTH EYES DAILY 01/20/18 01/30/18 History [Combigan 0.2%-0.5% Eye Drops] Latanoprost Ophth [Xalatan 0.005%] 1 drops BOTH EYES HS 01/20/18 01/30/18 History metFORMIN HCL 1,000 mg PO BID 01/20/18 01/30/18 History Allergies Allergy/AdvReac Type Severity Reaction Status Date / Time aspirin Allergy Rash/Hives Verified 01/30/18 13:30 fish derived Allergy Rash/Hives Verified 01/30/18 13:30 Iodinated Contrast- Oral and Allergy Rash/Hives Verified 01/30/18 13:30 IV Dye [Iodinated Contrast Media - IV Dye] Iodine and Iodide Containing Allergy Rash/Hives Verified 01/30/18 13:30 Produc shellfish derived [Shellfish] Allergy Rash/Hives Verified 01/30/18 13:30 Physical Exam Vitals: Vital Signs Temp Pulse Pulse Pulse Pulse Resp BP 01/31/18 04:00 98.5 F 63 16 01/30/18 23:40 98.0 F 65 16 01/30/18 20:20 98.1 F 68 16 01/30/18 17:36 17 01/30/18 16:30 97.1 F L 70 17 167/74 01/30/18 15:11 57 L 18 158/70 01/30/18 13:26 70 17 158/70 01/30/18 12:31 68 73 66 01/30/18 11:33 98.2 F 72 16 125/64 BP BP BP Pulse Ox 01/31/18 04:00 127/61 98 01/30/18 23:40 129/60 98 01/30/18 20:20 188/75 99 01/30/18 17:36 01/30/18 16:30 100 01/30/18 15:11 100 01/30/18 13:26 100 01/30/18 12:31 148/67 148/61 168/72 01/30/18 11:33 97 Intake and Output 01/30/18 01/31/18 01/31/18 22:59 06:59 14:59 Intake Total 240 400 Output Total 0 Balance 240 400 Intake: Oral 240 400 Output: Urine 0 Other: Voiding Method Toilet Toilet Weight 66.4 kg PHYSICAL EXAMINATION: GENERAL: 82-year-old female in no acute distress at the time of my examination HEENT: Head is atraumatic, normocephalic. Right eye blindness. Mucous membranes of the mouth are moist. Neck is supple. There is no elevated jugular venous pressure.] bruit is heard. HEART EXAMINATION: Heart S1 and S2 systolic ejection murmur is heard CHEST EXAMINATION:[ Lungs are clear to auscultation and precussion. No chest wall tenderness is noted on palpation or with deep breathing.] ABDOMEN: [ Soft, nontender. Bowel sounds are heard. No organomegaly noted]. EXTREMITIES:[ 1+ peripheral pulses with no evidence of peripheral edema and no calf tenderness noted]. NEUROLOGIC [patient is awake, alert and oriented ?-3.] . Results 01/31/18 05:33 01/31/18 05:33 Cardiac Enzymes 01/30/18 01/30/18 01/30/18 Range/Units 12:14 12:14 18:02 AST 17 (14-36) U/L CK-MB (CK-2) 1.5 1.4 (0.0-2.4) ng/mL Troponin I <0.012 <0.012 (0.000-0.034) ng/mL 01/31/18 Range/Units 00:18 AST (14-36) U/L CK-MB (CK-2) 1.1 (0.0-2.4) ng/mL Troponin I <0.012 (0.000-0.034) ng/mL Coagulation 01/30/18 Range/Units 12:14 PT 11.0 (9.0-12.0) sec APTT 22.4 (22.0-30.0) sec Lipids 01/31/18 Range/Units 05:33 Triglycerides 141 (<150) mg/dL Cholesterol 118 (<200) mg/dL HDL Cholesterol 39 L (40-60) mg/dL CBC 01/30/18 01/31/18 Range/Units 12:14 05:33 WBC 6.5 5.1 (3.8-10.6) k/uL RBC 3.46 L 3.47 L (3.80-5.40) m/uL Hgb 10.0 L 9.9 L (11.4-16.0) gm/dL Hct 30.1 L 30.3 L (34.0-46.0) % Plt Count 237 256 (150-450) k/uL Comprehensive Metabolic Panel 01/30/18 01/31/18 Range/Units 12:14 05:33 Sodium 139 139 (137-145) mmol/L Potassium 4.5 4.3 (3.5-5.1) mmol/L Chloride 108 H 111 H (98-107) mmol/L Carbon Dioxide 21 L 21 L (22-30) mmol/L BUN 22 H 21 H (7-17) mg/dL Creatinine 1.11 H 0.88 (0.52-1.04) mg/dL Glucose 209 H 143 H (74-99) mg/dL Calcium 8.8 8.9 (8.4-10.2) mg/dL AST 17 (14-36) U/L ALT 28 (9-52) U/L Alkaline Phosphatase 85 (38-126) U/L Total Protein 6.2 L (6.3-8.2) g/dL Albumin 3.7 (3.5-5.0) g/dL Current Medications Generic Name Dose Route Start Last Admin Trade Name Freq PRN Reason Stop Dose Admin Acetaminophen 500 mg 01/30/18 16:05 01/30/18 21:07 Tylenol Tab PO 500 mg BID PRN Administration Pain Alprazolam 0.25 mg 01/30/18 16:07 Xanax PO TID PRN Anxiety Amlodipine Besylate 5 mg 01/30/18 21:00 01/30/18 20:54 Norvasc PO 5 mg BID LARRY Administration Atorvastatin Calcium 40 mg 01/30/18 21:00 01/30/18 20:55 Lipitor PO 40 mg HS [facility] Administration Brimonidine Tartrate 1 drops 01/31/18 09:00 Alphagan P 0.2% Ophth Soln BOTH EYES DAILY [facility] Cholecalciferol 3,000 unit 01/31/18 09:00 Vitamin D3 PO DAILY [facility] Clopidogrel Bisulfate 75 mg 01/31/18 09:00 Plavix PO DAILY [facility] Folic Acid 1 mg 01/31/18 12:00 Folic Acid PO DAILY@1200 [facility] Glipizide 20 mg 01/30/18 17:30 01/31/18 06:20 Glucotrol PO 20 mg BID-W/MEALS [facility] Administration Heparin Sodium (Porcine) 5,000 unit 01/30/18 21:00 01/30/18 20:55 Heparin SQ 5,000 unit Q12HR LARRY Administration Insulin Aspart 0 unit 01/30/18 17:30 01/31/18 06:21 Novolog SQ Not Given ACHS [facility] Protocol Latanoprost 1 drops 01/30/18 21:00 01/30/18 20:55 Xalatan 0.005% BOTH EYES 1 drops HS [facility] Administration Levothyroxine Sodium 50 mcg 01/31/18 06:30 01/31/18 06:20 Synthroid PO 50 mcg DAILY@0630 [facility] Administration Lisinopril 20 mg 01/30/18 21:00 01/30/18 20:55 Zestril PO 20 mg BID [facility] Administration Meclizine HCl 12.5 mg 01/30/18 16:05 Antivert PO Q8H PRN Vertigo Melatonin 3 mg 01/30/18 21:00 01/30/18 20:55 Melatonin PO 3 mg HS [facility] Administration Multivitamins 1 each 01/31/18 12:00 Theragran PO DAILY@1200 [facility] Nitroglycerin 0.4 mg 01/30/18 14:11 Nitrostat SUBLINGUAL Q5M PRN Chest Pain Cranberry Fruit 8,400 mg 01/31/18 09:00 Extract PO DAILY [facility] Prazosin HCl 1 mg 01/30/18 21:00 01/30/18 20:55 Minipress PO 1 mg BID [facility] Administration Thiamine HCl 100 mg 01/31/18 12:00 Vitamin B-1 PO DAILY@1200 [facility] Timolol Maleate 1 drops 01/31/18 09:00 Timoptic BOTH EYES DAILY [facility] Intake and Output 01/30/18 01/31/18 01/31/18 22:59 06:59 14:59 Intake Total 240 400 Output Total 0 Balance 240 400 Intake: Oral 240 400 Output: Urine 0 Other: Voiding Method Toilet Toilet Weight 66.4 kg 01/31/18 05:33 01/31/18 05:33 EKG Interpretations (text) EKG shows normal sinus rhythm with lateral T-wave inversion Assessment and Plan Plan: Assessment and plan #1 episodes of vomiting or with associated dizziness. No syncope. Normal sinus rhythm with lateral T-wave inversion. No arrhythmia noted. No orthostatics documented. #2 diabetes, blood sugar on arrival 209 #3 hypertension #4 hyperlipidemia #5 known history of coronary artery disease with prior bypass surgery in 2007 at which time patient underwent a HAGEN to the LAD, saphenous vein graft to the OM1, OM 2, and PDA. Subsequent to that patient did undergo angioplasty and stenting of the saphenous vein graft to the OM in 2007. #6 prior CVA #7 PVD #8 history of esophageal stricture for which patient had diastolic dictation performed earlier this month. Plan Patient had a recent echocardiogram with Doppler study performed in February which revealed a normal left ventricular systolic function. She also had a recent admission earlier this month with fall and possible syncope, no documented orthostatics. We will continue to monitor for any arrhythmias. Further recommendations to follow. DNP note has been reviewed, I agree with a documented findings and plan of care. Patient was seen and examined.
[2018-01-31] MEDS: TIMOLOL 0.5% OPHTH DROPS 5 ML BTL BOTH EYES SCH (08:21)
[2018-01-31] MEDS: PRAZOSIN 1 MG CAP PO SCH ×2 (08:22→19:53)
[2018-01-31] MEDS: CHOLECALCIFEROL 1,000 UNIT TAB PO SCH (08:22)
[2018-01-31] MEDS: CLOPIDOGREL 75 MG TAB PO SCH (08:22)
[2018-01-31] MEDS: LISINOPRIL 20 MG TAB PO SCH ×2 (08:22→19:54)
[2018-01-31] MEDS: FOLIC ACID 1 MG TAB PO SCH (08:22)
[2018-01-31] MEDS: THIAMINE 100 MG TAB PO SCH (08:22)
[2018-01-31] MEDS: MULTIVITAMINS, THERA 1 EACH TAB PO SCH (08:22)
[2018-01-31] MEDS: HEPARIN SODIUM,PORCINE 5,000 UNIT/ML 1 ML VIAL SQ SCH ×2 (08:22→19:54)
[2018-01-31] MEDS: BRIMONIDINE TARTRATE 0.2% DROPS 5 ML BTL BOTH EYES SCH (08:23)
[2018-01-31] MEDS: CRANBERRY FRUIT EXTRACT PO SCH (08:23)
[2018-01-31] MEDS: amLODIPine 5 MG TAB PO SCH ×2 (08:24→19:54)
[2018-01-31] MEDS ORDERED: ASPIRIN 325 MG TAB PO SCH (09:00)
[2018-01-31 11:19] LABS: Glucose,Whole Blood 218 mg/dL (75-99)
[2018-01-31] MEDS: ACETAMINOPHEN TAB 500 MG TAB PO PRN (12:01)
--- NOTE | 2018-01-31 15:08 | PN ---
PROGRESS NOTE DATE OF SERVICE: 01/31/2018 This is an 82-year-old woman who was admitted with syncope, is complaining of dizziness at this time. No chest pain. No palpitations. No fever. The patient also being evaluated for orthostatic hypotension also. Cardiology and Neurology consultation in progress. No chest pain. No palpitations. No fever. PHYSICAL EXAM: Alert and oriented x3, pulse 56, blood pressure 140/60, respirations 16, temperature 97.2, pulse ox 94% on 2 L. Orthostatic vitals are not available. HEENT: Conjunctivae are normal. Oral mucosa moist. Neck is no jugular venous distension. No lymph node enlargement. CARDIOVASCULAR SYSTEMS: S1, S2, muffled. RESPIRATORY: Breath sounds diminished at the bases. A few scattered rhonchi and crackles. ABDOMEN: Soft, nontender. LEGS: No edema, no swelling. NERVOUS SYSTEM: No focal deficits. LABS: At this time shows WBC 5.3, hemoglobin is 9.9, glucose 159, HDL is 39. ASSESSMENT: 1. Syncope, possibly acute transient ischemic attack. 2. Possible vasovagal syncope or orthostatic hypotension. 3. Chronic dysphagia with recent EGD with dilatation. Previous history of restriction. 4. Coronary artery disease, coronary artery bypass grafting history. 5. History of left-sided weakness from previous stroke and cerebrovascular accident. 6. Diabetes mellitus type 2. 7. Blindness of the right eye. 8. Hypertension. 9. Hyperlipidemia. 10.Hypothyroidism. 11.Hiatal hernia. 12.Chronic pain syndrome. 13.History of degenerative joint disease. 14.History of peripheral neuropathy. 15.Chronic urinary incontinence. RECOMMENDATION: Recommend to continue current medications and symptomatic treatment. Orthostatic vitals. Otherwise, continue with Antivert. Repeat labs. Prognosis guarded because of the multiple complex medical issues. I would also recommend evaluation with PT, OT also and social science research assistant to evaluate for the home situation as well. Further recommendations to follow. Prognosis guarded. MMODL / IJN: [id number] /
[2018-01-31 16:44] LABS: Glucose,Whole Blood 115 mg/dL (75-99)
[2018-01-31] MEDS: ATORVASTATIN 40 MG TAB PO SCH (19:53)
[2018-01-31] MEDS: MELATONIN 3 MG TABLET PO SCH (19:53)
[2018-01-31] MEDS: LATANOPROST 0.005% OPHTH DROPS 2.5 ML BTL BOTH EYES SCH (19:54)
[2018-02-01] MEDS ORDERED: FAMOTIDINE 20 MG/2 ML VIAL IV ONE (02:00)
[2018-02-01] MEDS ORDERED: diphenhydrAMINE 50 MG/ML 1 ML VIAL IVP ONE (02:00)
[2018-02-01] MEDS ORDERED: methylPREDNISolone SOD SUCCI 125 MG/2 ML VIAL IV ONE (02:00)
[2018-02-01] MEDS ORDERED: diphenhydrAMINE 50 MG/ML 1 ML VIAL ONE (03:25)
[2018-02-01] MEDS ORDERED: FAMOTIDINE 20 MG/2 ML VIAL ONE (03:25)
[2018-02-01] MEDS ORDERED: methylPREDNISolone SOD SUCCI 125 MG/2 ML VIAL ONE (03:25)
[2018-02-01] MEDS: INSULIN ASPART 100 UNIT/ML 1 ML 10 ML VIAL SQ SCH ×5 (05:04→22:27)
[2018-02-01 06:14] LABS: Glucose,Whole Blood 201 mg/dL (75-99)
[2018-02-01 06:15] LABS: Basophils % (A) 0 %; Eosinophils # (A) 0.1 k/uL (0-0.7); Eosinophils % (A) 1 %; HCT 33.7 % (34.0-46.0); HGB 11.2 gm/dL (11.4-16.0); Lymphocytes # (A) 0.7 k/uL (1.0-4.8); Lymphocytes % (A) 11 %; MCH 29.2 pg (25.0-35.0); MCHC 33.3 g/dL (31.0-37.0); MCV 87.7 fL (80.0-100.0); Mean Platelet Volume 6.8; Monocytes # (A) 0.2 k/uL (0-1.0); Monocytes % (A) 3 %; Neutrophils # (A) 5.7 k/uL (1.3-7.7); Neutrophils % (A) 84 %; Platelet Count 246 k/uL (150-450); RBC 3.84 m/uL (3.80-5.40); RDW 14.2 % (11.5-15.5); WBC 6.8 k/uL (3.8-10.6)
[2018-02-01] MEDS: glipiZIDE 10 MG TAB PO SCH ×2 (06:40→16:54)
[2018-02-01] MEDS: LEVOTHYROXINE 50 MCG TAB PO SCH (06:40)
[2018-02-01 06:48] LABS: Calcium 9.3 mg/dL (8.4-10.2); Potassium 4.6 mmol/L (3.5-5.1)
--- NOTE | 2018-02-01 08:12 | CONS ---
CONSULTATION DATE OF CONSULTATION: 01/31/2018 CHIEF COMPLAINT: Dizziness. HISTORY OF PRESENT ILLNESS: Mrs. Sawyer is a pleasant 82-year-old female who is being evaluated today on 01/31/2018 by the neurology service per the request of Dr. Juarez for some dizziness. The patient was brought into [facility] Emergency Room after she had an episode of severe lightheadedness. She has had vasovagal episodes in the past and she also has history of vertigo which she takes meclizine as needed for. She denies having any loss of consciousness. The patient had similar symptoms a few weeks ago and was admitted to [facility] At that time, she did have an EEG which was done on 01/22/2018 and it showed no epileptiform discharges. She also had a carotid Doppler on 01/22/2018, which showed approximately 69% stenosis involving the left internal carotid artery. On this admission, a CT scan of the brain was done, which was normal. Her CBC showed anemia with a hemoglobin of 9.9 and hematocrit of 30%. Her comprehensive metabolic profile was normal except for mild renal insufficiency with a BUN of 22 and creatinine of 1.11 and hyperglycemia at 209. Her urinalysis showed 2 WBCs with trace leukocyte esterase. Her fasting lipid panel was normal. At the time of my evaluation, the patient is sitting in her bedside chair and appears to be in no acute distress. She has been ambulating to the restroom with no significant dizziness. PAST MEDICAL HISTORY: Coronary artery disease, transient ischemic attack, diabetes, dyslipidemia, gastroesophageal reflux disease, degenerative joint disease. FAMILY HISTORY: Positive for cancer and liver disease. SOCIAL HISTORY: She denies any tobacco, alcohol or drug use. HOME MEDICATIONS: Reviewed in the chart. ALLERGIES: ASPIRIN, FISH, IV CONTRAST, SHELLFISH. REVIEW OF SYSTEMS: As mentioned above and otherwise negative. PHYSICAL EXAM: Vital signs show a temperature of 97.6, pulse 57, respiration 16, blood pressure 142/66. GENERAL APPEARANCE: The patient is a well-developed, elderly female, who appears to be in no acute distress. HEENT: Normocephalic, atraumatic. The patient has chronic postsurgical changes involving the right eye. She is blind in her right eye. No facial asymmetry is seen. Neck is supple with no masses felt. CARDIOVASCULAR: Bradycardic rate with a normal rhythm. ABDOMEN: Nontender, nondistended. Extremities showed edema with no clubbing seen. NEUROLOGICAL EXAM: The patient is awake and oriented x3. Speech and language are normal. No lateralizing weakness is seen. Sensory exam showed diminished light touch sensation in bilateral distal lower extremities. No seizure-like activity is seen. No facial asymmetry is noticed on cranial nerve testing, but the patient is blind in her right eye. IMPRESSION: 1. Dizziness. 2. Vasovagal episode. 3. Anemia. 4. Dehydration. 5. Diabetes. 6. Carotid stenosis. RECOMMENDATION: The patient's dizziness has significantly improved and she has not had any vasovagal episode since her admission. She has not had any loss of consciousness with this described spell. Her symptoms are not consistent with any neurological disorder. She did have her recent EEG which showed no epileptiform discharges. Her CT scan of the brain was reviewed and was normal. The patient did have a recent carotid Doppler as mentioned above which did show stenosis on the left internal carotid artery. I will order a CT angiogram of the neck. The patient will need to be pretreated for the contrast given her allergy listing. She does have significant anemia and did show evidence of mild dehydration on admission and these could have also contributed to her symptoms. Continue the rest of your current workup and management. I will continue to follow with you. Further recommendations to follow. Thank you for allowing me to participate in the care of your patient. If you have any questions, please feel free to contact me. HERNANDO / PATRICK: [id number] /
[2018-02-01] MEDS: TIMOLOL 0.5% OPHTH DROPS 5 ML BTL BOTH EYES SCH (09:06)
[2018-02-01] MEDS: HEPARIN SODIUM,PORCINE 5,000 UNIT/ML 1 ML VIAL SQ SCH ×2 (09:07→20:21)
[2018-02-01] MEDS: CHOLECALCIFEROL 1,000 UNIT TAB PO SCH (09:07)
[2018-02-01] MEDS: CLOPIDOGREL 75 MG TAB PO SCH (09:07)
[2018-02-01] MEDS: LISINOPRIL 20 MG TAB PO SCH ×2 (09:07→20:21)
[2018-02-01] MEDS: THIAMINE 100 MG TAB PO SCH (09:07)
[2018-02-01] MEDS: FOLIC ACID 1 MG TAB PO SCH (09:07)
[2018-02-01] MEDS: PRAZOSIN 1 MG CAP PO SCH ×2 (09:07→20:21)
[2018-02-01] MEDS: MULTIVITAMINS, THERA 1 EACH TAB PO SCH (09:07)
[2018-02-01] MEDS: amLODIPine 5 MG TAB PO SCH ×2 (09:07→20:21)
[2018-02-01] MEDS: BRIMONIDINE TARTRATE 0.2% DROPS 5 ML BTL BOTH EYES SCH (09:08)
[2018-02-01] MEDS: CRANBERRY FRUIT EXTRACT PO SCH (09:08)
--- NOTE | 2018-02-01 09:56 | CT ---
EXAMINATION TYPE: CT angio neck DATE OF EXAM: 02/01/2018 HISTORY: abn US, dizziness COMPARISON: Carotid ultrasound dated 01/22/2018 CT DLP: 279.7 mGycm. Automated Exposure Control for Dose Reduction was Utilized. TECHNIQUE: CTA scan of the neck is performed with IV Contrast, patient injected with 65 mL of Isovue 370, axial images are obtained, coronal and sagittal reformatted images are reviewed. Three-D recons tructed images are created on an independent workstation and reviewed. FINDINGS: Carotid/Vascular Structures: Incidental note is made of a normal variant bovine aortic arch. No hemodynamically significant stenosis is seen within either common carotid arterial system. On the left there is less than 50% calcific and noncalcific atheromatous plaquing at the carotid bulb . At the takeoff of the external carotid artery there is short segment stenosis of 50% measuring 3 mm in length. At the takeoff of the left internal carotid artery from the carotid bulb there is a focal stenosis of 60% extending over 1.1 cm in length. The remainder of the cervical portions of the left internal carotid artery demonstrate no hemodynamically significant stenosis. On the right at the carotid bulbs there is a focal stenosis of approximately 50% extending over 4 mm in length. Just distal to this at the takeoff of the internal carotid artery on the right there is a long segment stenosis measuring over 2.2 cm in length measuring up to 60% with other areas approximat mike 50% in this long segment stenosis. Within the remaining cervical portions of the right internal c arotid artery there is no hemodynamically significant stenosis. In the cavernous and supraclinoid portions of the internal carotid arteries there is mild calcific at heromatous plaquing without hemodynamically significant stenosis or vascular occlusion. The left vert ebral artery is dominant. The vertebral arteries appear patent. Other: Partial visualization of post-CABG changes are seen of the chest. 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 Left-sided scleral banding is seen. Thyroid gland is somewhat heterogenous. Minimal subsegm ental atelectasis is seen within the visualized lungs. Moderate multilevel degenerative changes of th e cervical spine are noted. IMPRESSION: 1. Focal stenosis of approximately 60% within the left internal carotid artery beginning at its origi n from the carotid bulb extending over 1.1 cm in length. 2. Right internal carotid artery focal stenosis measuring over 2.2 cm in length varying in degree of stenosis between 50 and 60% beginning at its origin from the carotid bulb.
[2018-02-01 11:45] LABS: Glucose,Whole Blood 438 mg/dL (75-99)
[2018-02-01 11:45] LABS: Glucose,Whole Blood 473 mg/dL (75-99)
--- NOTE | 2018-02-01 14:15 | P.PN ---
Subjective Progress Note Date: 02/01/18 This is a pleasant 82-year-old female with past medical history significant for coronary artery disease and prior bypass surgery 10 years ago, hypertension, hyperlipidemia, diabetes, hypothyroidism, who was recently in the hospital earlier this month after experiencing a fall with a questionable syncope. Patient is also known to have an esophageal stricture, she underwent an EGD on this most recent admission which revealed a hiatal hernia and esophageal stricture which was dilated at that time. Patient presents to the hospital on this occasion with symptoms of dizziness. She states she did not have any passing out spells, but was extremely dizzy. She also states that she had episodes of vomiting prior to coming into the hospital. Ordering to the patient , her doctor had told her to stop taking her metformin and her sugars have been running quite high at home, she states that prior to her most recent admission to the hospital, her sugars were running quite high at that time as well. He denies having any chest discomfort, no palpitations. Blood sugar on this admission 210, white blood cell count 6.5, hemoglobin 10.0, platelet count 237. Sodium 139, potassium 4.5, BUN 22, creatinine 1.1. Troponins have been negative 3. Scan of the brain was performed which did not reveal any acute process. Chest x-ray showed chronic changes with no acute cardiopulmonary process. The pressure on arrival here 124/60 with a heart rate in the 60s. Orthostatics were also obtained which came back to be negative. EKG on admission showed a normal sinus rhythm with T-wave inversion in the lateral leads. An echocardiogram with Doppler study was performed in February which revealed an ejection fraction of 50-55%. The time of my examination this morning, patient is sleepy, she denies any dizziness or lightheadedness this morning. No chest discomfort, no palpitations. blood sugar this morning 143. 02/01/2018 Patient seen and examined this morning, sitting up in the chair at bedside. Complaining of mild dizziness especially when she turns her head too fast. Hemodynamically she is stable. Blood pressure 110/60 with a heart rate in the 50s today. No significant arrhythmias noted on the monitor. Objective - Vital Signs Vital signs: Vital Signs Temp 96.9 F L 01/31/18 19:41 Pulse 57 L 02/01/18 12:00 Resp 16 02/01/18 12:00 BP 109/62 02/01/18 12:00 Pulse Ox 98 02/01/18 12:00 Intake & Output 01/31/18 02/01/18 02/01/18 18:59 06:59 18:59 Intake Total 660 10 Output Total 400 Balance 260 10 Weight 67.2 kg Intake: IV 10 Invasive Line 2 10 Oral 660 Output: Urine 400 Other: Voiding Method Toilet Toilet Toilet # Voids 1 2 - Exam PHYSICAL EXAMINATION: GENERAL: 82-year-old female in no acute distress at the time of my examination HEENT: Head is atraumatic, normocephalic. Right eye blindness. Mucous membranes of the mouth are moist. Neck is supple. There is no elevated jugular venous pressure.] bruit is heard. HEART EXAMINATION: Heart S1 and S2 systolic ejection murmur is heard CHEST EXAMINATION:[ Lungs are clear to auscultation and precussion. No chest wall tenderness is noted on palpation or with deep breathing.] ABDOMEN: [ Soft, nontender. Bowel sounds are heard. No organomegaly noted]. EXTREMITIES:[ 1+ peripheral pulses with no evidence of peripheral edema and no calf tenderness noted]. NEUROLOGIC [patient is awake, alert and oriented ?-3.] - Labs CBC & Chem 7: 02/01/18 05:47 02/01/18 05:47 Labs: Abnormal Lab Results - Last 24 Hours (Table) 01/31/18 02/01/18 02/01/18 Range/Units 16:42 05:47 05:47 Hgb 11.2 L (11.4-16.0) gm/dL Hct 33.7 L (34.0-46.0) % Lymphocytes # 0.7 L (1.0-4.8) k/uL Chloride 111 H (98-107) mmol/L BUN 18 H (7-17) mg/dL Glucose 188 H (74-99) mg/dL POC Glucose (mg/dL) 115 H (75-99) mg/dL 02/01/18 02/01/18 02/01/18 Range/Units 06:05 11:37 11:38 Hgb (11.4-16.0) gm/dL Hct (34.0-46.0) % Lymphocytes # (1.0-4.8) k/uL Chloride (98-107) mmol/L BUN (7-17) mg/dL Glucose (74-99) mg/dL POC Glucose (mg/dL) 201 H 473 H 438 H (75-99) mg/dL Assessment and Plan Plan: Assessment and plan #1 episodes of vomiting or with associated dizziness. No syncope. Normal sinus rhythm with lateral T-wave inversion. No arrhythmia noted. No orthostatics documented. #2 diabetes, blood sugar on arrival 209 #3 hypertension #4 hyperlipidemia #5 known history of coronary artery disease with prior bypass surgery in 2007 at which time patient underwent a HAGEN to the LAD, saphenous vein graft to the OM1, OM 2, and PDA. Subsequent to that patient did undergo angioplasty and stenting of the saphenous vein graft to the OM in 2007. #6 prior CVA #7 PVD #8 history of esophageal stricture for which patient had diastolic dictation performed earlier this month. Plan Patient had a recent echocardiogram with Doppler study performed in February which revealed a normal left ventricular systolic function. No documented orthostatic set, no arrhythmias noted on the monitor. Cardiology's perspective , she may be able to be discharged once cleared by primary. Her follow-up appointment to see Dr. Arevalo in the office post discharge. DNP note has been reviewed, I agree with a documented findings and plan of care. Patient was seen and examined.
--- NOTE | 2018-02-01 14:57 | P.PN ---
Subjective Progress Note Date: 02/01/18 Principal diagnosis: Dizziness Neurology is following an 82-year-old female for dizziness. She was transported to the emergency room after episode of severe lightheadedness. She has a history of vasovagal response and episodes in the past and also secondary history of vertigo. Patient was currently being treated with meclizine for vertigo. Patient denies any loss of consciousness. Patient had similar symptoms several weeks ago and was also seen at this facility. Most recent EEG was done on 01/22/18 and showed no epileptiform discharges or abnormalities. Carotid Doppler 01/22/18-69% stenosis involving left internal carotid artery. CT of the brain in the ED noted normal findings. CBC noted anemia. CMP renal insufficiency. Hyperglycemia also noted. Urinalysis showed a WBC'c with trace leuk esterase. On contact, patient was seated at bedside, alert and oriented 3, no acute distress no family or other visitors in the room at the time. Patient states she is overall improved day over day. Patient states Antivert does help with decreasing her symptoms. CT angiogram of the neck noted focal stenosis of approximately 60% within the left internal carotid artery beginning at the origin of the carotid bulb extending 1.1 cm in length. Right internal carotid artery focal stenosis measuring 2.2 cm in length varying degrees of stenosis between 50 and 60% beginning at the origin from the carotid bulb as noted by radiologist. Objective - Vital Signs Vital signs: Vital Signs Temp 96.9 F L 01/31/18 19:41 Pulse 57 L 02/01/18 12:00 Resp 16 02/01/18 12:00 BP 109/62 02/01/18 12:00 Pulse Ox 98 02/01/18 12:00 Intake & Output 01/31/18 02/01/18 02/01/18 18:59 06:59 18:59 Intake Total 660 10 Output Total 400 Balance 260 10 Weight 67.2 kg Intake: IV 10 Invasive Line 2 10 Oral 660 Output: Urine 400 Other: Voiding Method Toilet Toilet Toilet # Voids 1 2 - Exam General appearance: alert, oriented x3, no apparent distress Head: atraumatic, normocephalic Eyes: PERRLA, EOMI. Absent nystagmus, periorbital swelling ENT: normal exam, mucous membranes moist Neck: normal, no tenderness Respiratory: no increased work of breathing CV: regular rate, rhythm GI/Abdominal: no tenderness or guarding Extremities: full range of motion, no tenderness, edema or joint swelling Neurological: cranial nerves II-XII grossly intact, patient is blind in right eye no lateralizing weakness no seizure activity noted on physical exam, no pronator drift, no nystagmus extremity strengths: sensation: Diminished distal lower extremities bilaterally Psychological: mood and affect appropriate for setting - Labs CBC & Chem 7: 02/01/18 05:47 02/01/18 05:47 Labs: Abnormal Lab Results - Last 24 Hours (Table) 01/31/18 02/01/18 02/01/18 Range/Units 16:42 05:47 05:47 Hgb 11.2 L (11.4-16.0) gm/dL Hct 33.7 L (34.0-46.0) % Lymphocytes # 0.7 L (1.0-4.8) k/uL Chloride 111 H (98-107) mmol/L BUN 18 H (7-17) mg/dL Glucose 188 H (74-99) mg/dL POC Glucose (mg/dL) 115 H (75-99) mg/dL 02/01/18 02/01/18 02/01/18 Range/Units 06:05 11:37 11:38 Hgb (11.4-16.0) gm/dL Hct (34.0-46.0) % Lymphocytes # (1.0-4.8) k/uL Chloride (98-107) mmol/L BUN (7-17) mg/dL Glucose (74-99) mg/dL POC Glucose (mg/dL) 201 H 473 H 438 H (75-99) mg/dL Assessment and Plan (1) Dizziness Current Visit: No Status: Acute Code(s): R42 - DIZZINESS AND GIDDINESS SNOMED Code(s): 776423771 (2) Vasovagal near syncope Current Visit: Yes Status: Acute Code(s): R55 - SYNCOPE AND COLLAPSE SNOMED Code(s): 951852221 (3) Anemia Current Visit: Yes Status: Acute Code(s): D64.9 - ANEMIA, UNSPECIFIED SNOMED Code(s): 405908079 (4) Dehydration Current Visit: Yes Status: Acute Code(s): E86.0 - DEHYDRATION SNOMED Code( s): 02342891 (5) Hyperglycemia Current Visit: No Status: Acute Code(s): R73.9 - HYPERGLYCEMIA, UNSPECIFIED SNOMED Code(s): 93104007 (6) Carotid stenosis Current Visit: Yes Status: Acute Code(s): I65.29 - OCCLUSION AND STENOSIS OF UNSPECIFIED CAROTID ARTERY SNOMED Code(s): 07985704 Plan: 1. Dizziness Patient does have history of vertigo. Patient currently utilizing Antivert which she states does decrease her symptoms to a tolerable level. Continue to monitor with primary care team/primary care provider for further management Recent EEG noted no epileptiform discharges. 2. Vasovagal syncope See #6 below 3 Anemia Defer to primary team for management Continue to correct underlying etiology 4. Dehydration Defer to primary team for management Continue to correct underlying etiology 5 Diabetes/hyperglycemia: Defer to primary team for management Continue to correct underlying etiology 6. Carotid stenosis Patient does have carotid stenosis bilaterally noted at approximately 60% within the left internal carotid artery and 50-60% in the right internal carotid artery. Previous carotid Doppler noted 69%. Recommend consideration for vascular consult however, patient's symptoms have decreased her are continuing to decrease at this time. STATUS: Neurology will continue to follow on an as-needed basis. Feel free to contact our office if further assistance is needed for reconsultation. I discussed the patients history, physical exam, diagnostic testing, lab work and imaging with Dr Grover prior to implementing the plan above. He agrees with the plan as implemented prior to implementation.
[2018-02-01] MEDS: MECLIZINE 12.5 MG TAB PO SCH ×2 (15:41→22:24)
[2018-02-01 16:51] LABS: Glucose,Whole Blood 174 mg/dL (75-99)
--- NOTE | 2018-02-01 18:20 | PN ---
PROGRESS NOTE DATE OF SERVICE: 02/01/2018 This 82-year-old woman who was admitted with syncope and possible acute transient ischemic attack. Patient is still complaining of dizziness. No chest pain. No palpitations. No fever. The patient also had chronic dysphagia and neck CTA was performed by performed today which showed multiple abnormalities and focal stenosis, approximately 60% in the left internal carotid artery beginning at the origin and also right internal carotid artery focal stenosis measuring 2.2 cm in length, varying stenosis on the carotid bulb also. The patient is being closely monitored. No chest pain. No palpitations. No fever. EXAM: Alert and oriented x3. Pulse 57, blood pressure 109/60, respirations 16, temperature is normal, pulse ox 98% on room air. HEENT: Conjunctivae normal. NECK: No jugular venous distention. CARDIOVASCULAR: S1, S2 muffled. RESPIRATORY: Breath sounds diminished in the bases. No rhonchi. No crackles. ABDOMEN: Soft, nontender. No mass palpable. LEGS: No edema. No swelling. NERVOUS SYSTEM: No focal deficits. LABS: WBC 6.2, hemoglobin is 11.2. Accu-Chek 138. ASSESSMENT: 1. Syncope, possibly acute transient ischemic attack. 2. Bilateral carotid stenosis 60% focal stenosis on the left and as well as 50%-60% on the right. 3. Chronic dysphagia status post recent esophagogastroduodenoscopy and dilatation. 4. Coronary artery disease, coronary artery bypass graft. 5. History of left-sided weakness from previous stroke and cerebrovascular accident. 6. Diabetes mellitus type 2. 7. Blindness in the right eye. 8. Hypertension. 9. Hyperlipidemia. 10.Hypothyroidism. 11.Hiatal hernia. 12.Chronic pain syndrome. 13.History of degenerative joint disease. 14.Peripheral neuropathy. 15.Chronic urinary incontinence. RECOMMENDATION AND DISCUSSION: Recommend to continue current medical management, continue symptomatic treatment. Otherwise at this time, I would recommend continue with Lipitor as well as antiplatelet agents. The patient is on Plavix at this time. Continue to monitor. Will get Vascular Surgery evaluation, PT/OT evaluation. Prognosis guarded because of multiple complex medical issues. Further recommendations to follow. MMODL / IJN: [id number] /
--- NOTE | 2018-02-01 19:51 | CONS ---
CONSULTATION DATE OF SERVICE: 02/01/2018. HISTORY: This is an 85-year-old female patient who has been admitted with multiple medical problems including history of coronary artery disease, history of diabetes mellitus, history of hypertension, history of hyperlipidemia. The patient had some dizziness spell and patient had a CT of the carotids which showed about is 60% to 69% stenosis. No history of any motor deficit. ALLERGIES: Allergy to ASPIRIN, FISH OIL, IODINE CONTRAST, SHELLFISH. SOCIAL HISTORY: No history of smoking. PHYSICAL EXAMINATION: Patient was seen in her room. VITAL SIGNS: Stable. NECK: Supple. Trachea central. CHEST: Clear to auscultation. ABDOMEN: Soft. Normal motor function. CT showed patient has 60% to 69% stenosis. PLAN: At this point, the patient was discussed. She does not want any major surgical intervention. The patient will be treated medically. I will follow up with her in my office in 2 weeks. Continue with antiplatelet therapy. MMODL / VERNAN: [id number] /
[2018-02-01] MEDS: MELATONIN 3 MG TABLET PO SCH (20:21)
[2018-02-01] MEDS: LATANOPROST 0.005% OPHTH DROPS 2.5 ML BTL BOTH EYES SCH (20:21)
[2018-02-01] MEDS: ATORVASTATIN 40 MG TAB PO SCH (20:21)
[2018-02-01 20:48] LABS: Glucose,Whole Blood 260 mg/dL (75-99)
[2018-02-01] MEDS: ACETAMINOPHEN TAB 500 MG TAB PO PRN (22:18)
[2018-02-02 06:01] LABS: Glucose,Whole Blood 117 mg/dL (75-99)
[2018-02-02] MEDS: INSULIN ASPART 100 UNIT/ML 1 ML 10 ML VIAL SQ SCH ×2 (06:10→12:12)
[2018-02-02 06:27] LABS: Basophils % (A) 0 %; Eosinophils % (A) 0 %; HCT 32.5 % (34.0-46.0); HGB 10.5 gm/dL (11.4-16.0); Lymphocytes # (A) 0.9 k/uL (1.0-4.8); Lymphocytes % (A) 12 %; MCHC 32.3 g/dL (31.0-37.0); MCV 86.7 fL (80.0-100.0); Mean Platelet Volume 7.3; Monocytes # (A) 0.5 k/uL (0-1.0); Monocytes % (A) 6 %; Neutrophils # (A) 6.5 k/uL (1.3-7.7); Neutrophils % (A) 81 %; Platelet Count 256 k/uL (150-450); RBC 3.75 m/uL (3.80-5.40)
[2018-02-02] MEDS: LEVOTHYROXINE 50 MCG TAB PO SCH (06:32)
[2018-02-02] MEDS: glipiZIDE 10 MG TAB PO SCH (06:32)
[2018-02-02 06:40] LABS: Calcium 9.5 mg/dL (8.4-10.2); Potassium 4.1 mmol/L (3.5-5.1)
[2018-02-02] MEDS: CRANBERRY FRUIT EXTRACT PO SCH (08:52)
[2018-02-02] MEDS: CHOLECALCIFEROL 1,000 UNIT TAB PO SCH (08:54)
[2018-02-02] MEDS: FOLIC ACID 1 MG TAB PO SCH (08:54)
[2018-02-02] MEDS: TIMOLOL 0.5% OPHTH DROPS 5 ML BTL BOTH EYES SCH (08:54)
[2018-02-02] MEDS: CLOPIDOGREL 75 MG TAB PO SCH (08:54)
[2018-02-02] MEDS: amLODIPine 5 MG TAB PO SCH (08:54)
[2018-02-02] MEDS: LISINOPRIL 20 MG TAB PO SCH (08:54)
[2018-02-02] MEDS: PRAZOSIN 1 MG CAP PO SCH (08:54)
[2018-02-02] MEDS: MECLIZINE 12.5 MG TAB PO SCH (08:54)
[2018-02-02] MEDS: THIAMINE 100 MG TAB PO SCH (08:55)
[2018-02-02] MEDS: BRIMONIDINE TARTRATE 0.2% DROPS 5 ML BTL BOTH EYES SCH (08:55)
[2018-02-02] MEDS: MULTIVITAMINS, THERA 1 EACH TAB PO SCH (08:55)
[2018-02-02] MEDS: HEPARIN SODIUM,PORCINE 5,000 UNIT/ML 1 ML VIAL SQ SCH (09:00)
[2018-02-02 10:21] VITALS: TEMP 96.9
[2018-02-02 11:19] VITALS: BP 142/63; PULSE 63; RESP 18
[2018-02-02 12:22] LABS: Glucose,Whole Blood 206 mg/dL (75-99)
--- NOTE | 2018-02-02 12:22 | PN ---
PROGRESS NOTE Mrs. Sawyer is an 82-year-old female with a history of coronary artery disease who presented with symptoms of dizziness. She is feeling better this morning, although she feels a little bit dizzy. She has no chest pain. Her breathing has been stable. She denies any dizziness, palpitation. She denies any nausea. She has been ambulating in the room without much difficulty. She continues to be at this time on amlodipine 5 mg twice a day, Lipitor 40 mg daily, Plavix 75 mg daily, glipizide, lisinopril 20 mg twice a day, meclizine, thiamin, Minipress 1 mg twice a day. PHYSICAL EXAMINATION: Blood pressure 142/60 with a heart rate in the 60s. LUNGS: Clear. HEART: Regular rate and rhythm. S1, S2. No S3 with systolic murmur, no diastolic murmur. ABDOMEN: Soft, nontender. EXTREMITIES: No edema. LAB DATA: Revealed BUN and creatinine 17 and 0.7, hemoglobin of 10.5. IMPRESSION: 1. Symptoms of dizziness with no evidence of malignant arrhythmia. 2. History of coronary artery disease, status post coronary artery bypass grafting, stable. 3. Hypertension. 4. Hyperlipidemia. RECOMMENDATION: From the cardiac standpoint, will continue present therapy. Continue increasing her level activity. If stable, she should be able to be discharged home today and followed as an outpatient. MMODL / IJN: [id number] /
--- NOTE | 2018-02-02 14:58 | DS ---
DISCHARGE SUMMARY DATE OF SERVICE: 02/02/2018. FINAL DIAGNOSES: 1. Syncope possibly acute transient ischemic attack. 2. Bilateral carotid stenosis 60% focal stenosis left side as well as 50% to 60% on the right. 3. Chronic dysphagia, status post EGD and dilatation for esophageal stricture recently. 4. Coronary artery disease, coronary artery bypass grafting. 5. History of left-sided weakness from previous stroke and cerebrovascular accident. 6. Diabetes mellitus type 2. 7. History of blindness in the right eye. 8. Hypertension. 9. Hyperlipidemia. 10.Hypothyroidism. 11.Hiatal hernia. 12.Chronic pain syndrome. 13.History of degenerative joint disease. 14.History of neuropathy. 15.Chronic urinary incontinence. DISCHARGE DISPOSITION: Patient will be discharged in a stable condition with guarded prognosis. Total time taken is 35 minutes. HISTORY OF PRESENT ILLNESS: This is an 82-year-old woman with a past medical history of multiple medical problems being followed by Dr. Ramirez in the outpatient setting. Admitted with syncope and dizziness. TIA was considered. The patient also treated symptomatically. Patient also had carotid stenosis. Dr. Velez recommended medical treatment. On exam, vital signs stable. cardio system no cyanosis system discharge: Diet is cardiac diet. Follow up with Dr. Kinsey in 2-3 days. Follow up with Dr. Ramirez in 2 to 3 days. Follow up with Dr. Velez as advised. Follow up with ENT if the dizziness persists. MEDICATIONS: 1. Tylenol 500 mg p.o. b.i.d. 2. Norvasc 5 mg p.o. b.i.d. 3. Lipitor 40 mg q.h.s. 4. Benazepril 20 mg p.o. b.i.d. 5. Brimonidine 1 drop both eyes. 6. Vitamin D3 3000 daily. 7. Plavix 75 mg p.o. daily. 8. Cranberry 8.4 g p.o. daily. 9. Pepcid 20 mg p.o. daily. 10.DiaBeta 10 mg p.o. b.i.d. 11.Xalatan 0.005% 1 drop both eyes. 12.Synthroid 50 mcg p.o. daily. 13.Meclizine 12.5 mg q.8h p.r.n. 14.Metformin 1000 mg p.o. b.i.d. 15.Prazosin 1 mg p.o. b.i.d. 16.Folic acid 1 mg p.o. 17.Multivitamins 1 p.o. daily. 18.Thiamine 100 mg p.o. daily. Once again, the patient will be discharged in a stable condition with a guarded prognosis. MMGAROL / VERNAN: [id number] /
== END 2018-02-02 15:35 | disposition home or self-care (01) | DRG 69 ==
LOC: EC 11:31 → 3OBS 13:41 → 6SEL 16:18 → OBSVTOIN 02-01 21:20
PROVIDERS: ADMIT Internal Medicine; ATTEND Internal Medicine
DX: G45.9 Transient cerebral ischemic attack, unspecified (principal); I69.354 Hemiplegia and hemiparesis following cerebral infarction affecting left non-dominant side; I25.10 Atherosclerotic heart disease of native coronary artery without angina pectoris; G89.4 Chronic pain syndrome; R32 Unspecified urinary incontinence; D64.9 Anemia, unspecified; E03.9 Hypothyroidism, unspecified; E11.319 Type 2 diabetes mellitus with unspecified diabetic retinopathy without macular edema; E11.42 Type 2 diabetes mellitus with diabetic polyneuropathy; E11.51 Type 2 diabetes mellitus with diabetic peripheral angiopathy without gangrene; E11.65 Type 2 diabetes mellitus with hyperglycemia; E78.5 Hyperlipidemia, unspecified; E86.0 Dehydration; H54.61 Unqualified visual loss, right eye, normal vision left eye; I10 Essential (primary) hypertension; I65.23 Occlusion and stenosis of bilateral carotid arteries; K21.9 Gastro-esophageal reflux disease without esophagitis; K44.9 Diaphragmatic hernia without obstruction or gangrene; M19.90 Unspecified osteoarthritis, unspecified site; N28.9 Disorder of kidney and ureter, unspecified; Z88.6 Allergy status to analgesic agent; Z91.041 Radiographic dye allergy status; Z91.013 Allergy to seafood; Z91.018 Allergy to other foods; Z95.1 Presence of aortocoronary bypass graft; Z90.710 Acquired absence of both cervix and uterus; Z79.84 Long term (current) use of oral hypoglycemic drugs; Z79.890 Hormone replacement therapy; Z79.02 Long term (current) use of antithrombotics/antiplatelets; Z87.440 Personal history of urinary (tract) infections; Z79.899 Other long term (current) drug therapy
CPT/HCPCS: 36415; 70450; 70498; 71046; 80048; 80053; 80061; 81001; 82550; 82553; 83036; 83605; 84484; 85025; 85610; 85730; 93005; 99285

== ENCOUNTER → 2018-04-10 | Outpatient (CLI) | payer MEDICARE, OTHER ==
--- NOTE | 2018-04-10 10:31 | MR ---
EXAMINATION TYPE: MR brain and iac wo/w con DATE OF EXAM: 04/10/2018 COMPARISON: CT brain 01/30/2018, MR brain 02/06/2015 HISTORY: Hearing loss , dizziness TECHNIQUE: Multiplanar, multisequence images of the brain and brainstem, small [id number], high-resolution im ages through the internal auditory canals is performed without and with IV contrast, utilizing 6.5 mL intravenous Gadavist . FINDINGS: Diffusion weighted images demonstrate no evidence of a recent infarct or other diffusion ab normality. There is no extra-axial fluid collection or significant interval change in white matter s ignal abnormality, slight progression in scattered hyperintensities on inversion recovery and T2-weig hted sequences within the deep white matter as compared to prior exam, suspect 3-5 new lesions. Basa l ganglia calcifications are present. Focal encephalomalacia in the inferior right cerebellar hemisph ere is again seen. The ventricular system and cisternal spaces are normal in size and appearance. Th e brain volume is age appropriate, there is age-related atrophy. Calvarium is stable. Midline structures demonstrate partially empty sella. The craniocervical junction appears within nor mal limits. Post contrast images demonstrate no abnormal enhancement, internal auditory canals show symmetric and unremarkable appearance, no cerebellopontine angle mass. The dural venous sinuses appea r patent. 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 IMPRESSION: Nonspecific white matter demyelination may be due to chronic small vessel ischemia, there is age-related atrophy. Normal internal auditory canals. Mild sinus disease and additional findings above.
== END | disposition home or self-care (01) ==
LOC: RADMRIMAIN 07:46
PROVIDERS: ATTEND Otolaryngology
DX: G37.8 Other specified demyelinating diseases of central nervous system (principal); H93.3X9 Disorders of unspecified acoustic nerve; H91.90 Unspecified hearing loss, unspecified ear
CPT/HCPCS: 82565; 70553; 36415; A9581

== ENCOUNTER 2018-05-04 14:43 | Emergency (ER) | payer MEDICARE, OTHER ==
[2018-05-04 14:55] VITALS: PULSE 78; RESP 18; TEMP 98.1
[2018-05-04 14:55] LABS: Glucose,Whole Blood 158 mg/dL (75-99)
[2018-05-04] MEDS ORDERED: SODIUM CHLORIDE 0.9% 500 ML 500 ML IV ONE (15:40)
--- NOTE | 2018-05-04 15:56 | ED ---
General Adult HPI - General Chief complaint: Nausea/Vomiting/Diarrhea Stated complaint: Sugar Issues-diabetic Time Seen by Provider: 05/04/18 15:35 Source: patient, family, RN notes reviewed, old records reviewed Mode of arrival: wheelchair Limitations: no limitations - History of Present Illness Initial comments: 83-year-old presenting for evaluation of hyperglycemia. Patient has history diabetes, recently taken off her metformin secondary to kidney issues reported by the patient's daughter. Over the past 1 week she's had decreased by mouth intake and nausea. There is been several episodes of vomiting. Denies significant abdominal pain. She is currently on glyburide and had elevated blood sugar at 220 at home this morning. Patient has additional history of hypertension, no other complaints. - Related Data Home Medications Medication Instructions Recorded Confirmed Benazepril HCl 20 mg PO BID 11/05/13 05/04/18 Clopidogrel Bisulfate [Plavix] 75 mg PO DAILY 11/05/13 05/04/18 glyBURIDE [Diabeta] 10 mg PO BID-W/MEALS 11/05/13 05/04/18 Cholecalciferol [Vitamin D3] 3,000 unit PO DAILY 02/05/15 05/04/18 Atorvastatin Calcium [Lipitor] 40 mg PO HS 02/18/16 05/04/18 amLODIPine BESYLATE [Norvasc] 5 mg PO BID 02/18/16 05/04/18 Levothyroxine Sodium [Synthroid] 50 mcg PO DAILY 01/07/17 05/04/18 Meclizine HCl 12.5 mg PO Q8H PRN 01/07/17 05/04/18 Famotidine [Pepcid] 20 mg PO DAILY 07/27/17 05/04/18 Prazosin [Minipress] 1 mg PO BID 07/27/17 05/04/18 Acetaminophen [Tylenol] 500 mg PO BID PRN 01/18/18 05/04/18 Brimonidine Tartrate/Timolol 1 drop BOTH EYES DAILY 01/20/18 05/04/18 [Combigan 0.2%-0.5% Eye Drops] Latanoprost Ophth [Xalatan 0.005%] 1 drops BOTH EYES HS 01/20/18 05/04/18 Cranberry Fruit Extract [Cranberry] 1,000 mg PO DAILY 05/04/18 05/04/18 Gabapentin [Neurontin] 300 mg PO BID 05/04/18 05/04/18 Previous Rx's Medication Instructions Recorded Multivitamins, Thera [Multivitamin 1 each PO DAILY@1200 #30 tab 02/02/18 (formulary)] Thiamine [Vitamin B-1] 100 mg PO DAILY@1200 #30 tab 02/02/18 Allergies Allergy/AdvReac Type Severity Reaction Status Date / Time aspirin Allergy Rash/Hives Verified 05/04/18 15:51 fish derived Allergy Rash/Hives Verified 05/04/18 15:51 Iodinated Contrast- Oral and Allergy Rash/Hives Verified 05/04/18 15:51 IV Dye [Iodinated Contrast Media - IV Dye] Iodine and Iodide Containing Allergy Rash/Hives Verified 05/04/18 15:51 Produc shellfish derived [Shellfish] Allergy Rash/Hives Verified 05/04/18 15:51 Review of Systems ROS Statement: Those systems with pertinent positive or pertinent negative responses have been documented in the HPI. ROS Other: All systems not noted in ROS Statement are negative. 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 History of Any Multi-Drug Resistant Organisms: None Reported Past Surgical History: Bladder Surgery, Cholecystectomy, Coronary Bypass/CABG, Heart Catheterization, Hysterectomy Additional Past Surgical History / Comment(s): CABG-2007, Ccath 2007, multiple EGDs/dilations with biopsies, COLONOSCOPY. Cataracts, D&C, bladder suspension. Past Anesthesia/Blood Transfusion Reactions: Motion Sickness, Postoperative Nausea & Vomiting (PONV) Past Psychological History: No Psychological Hx Reported Smoking Status: Never smoker Past Alcohol Use History: None Reported Past Drug Use History: None Reported - Past Family History Father Family Medical History: Liver Disease Additional Family Medical History / Comment(s): Father of cirrhosis. He was a drinker. Mother Family Medical History: Unable to Obtain Additional Family Medical History / Comment(s): Pt states she does not know her mother's medical history. Son(s) Family Medical History: Renal Disease Daughter(s) Family Medical History: Cancer General Exam Limitations: no limitations General appearance: alert, in no apparent distress Head exam: Present: atraumatic, normocephalic Eye exam: Present: normal appearance, PERRL ENT exam: Present: normal exam Neck exam: Present: normal inspection. Absent: tenderness, meningismus Respiratory exam: Present: normal lung sounds bilaterally, respiratory distress. Absent: wheezes Cardiovascular Exam: Present: regular rate, normal rhythm GI/Abdominal exam: Present: soft. Absent: distended, tenderness, guarding Extremities exam: Present: normal inspection, normal capillary refill. Absent: pedal edema Back exam: Present: normal inspection, full ROM Neurological exam: Present: alert, oriented X3, CN II-XII intact. Absent: motor sensory deficit Psychiatric exam: Present: normal affect, normal mood Skin exam: Present: warm, dry, intact. Absent: cyanosis, diaphoretic Course Vital Signs 05/04/18 05/04/18 05/04/18 14:51 15:30 16:00 Temperature 98.1 F Pulse Rate 78 Respiratory 18 Rate Blood Pressure 211/77 218/80 O2 Sat by Pulse 97 98 99 Oximetry 05/04/18 05/04/18 05/04/18 16:30 17:00 17:30 Temperature Pulse Rate Respiratory Rate Blood Pressure 195/79 192/76 200/78 O2 Sat by Pulse Oximetry 05/04/18 18:00 Temperature Pulse Rate Respiratory Rate Blood Pressure 178/76 O2 Sat by Pulse Oximetry Medical Decision Making - Medical Decision Making 83-year-old female presenting for elevation of blood glucose at home. Patient does have history diabetes. Patient's family concerned because because blood sugar was 220 at home. They were concerned she was not eating on and off over the past week. Workup in the emergency department reveals normal CBC, CMP significant for glucose 154, acetone negative, UA negative for both infection and ketones. Patient has elevated blood pressure emergency Department however she is scheduled for her oral antihypertensive agents at home. She will be discharged. Continue taking medications as prescribed. Follow-up with primary care physician. - Lab Data Result diagrams: 05/04/18 16:18 05/04/18 16:18 Lab Results 05/04/18 05/04/18 05/04/18 Range/Units 14:53 16:18 16:18 WBC 6.7 (3.8-10.6) k/uL RBC 4.03 (3.80-5.40) m/uL Hgb 11.7 (11.4-16.0) gm/dL Hct 35.7 (34.0-46.0) % MCV 88.6 (80.0-100.0) fL MCH 29.0 (25.0-35.0) pg MCHC 32.8 (31.0-37.0) g/dL RDW 14.0 (11.5-15.5) % Plt Count 208 (150-450) k/uL Neutrophils % 79 % Lymphocytes % 13 % Monocytes % 5 % Eosinophils % 1 % Basophils % 0 % Neutrophils # 5.3 (1.3-7.7) k/uL Lymphocytes # 0.9 L (1.0-4.8) k/uL Monocytes # 0.4 (0-1.0) k/uL Eosinophils # 0.1 (0-0.7) k/uL Basophils # 0.0 (0-0.2) k/uL Sodium 141 (137-145) mmol/L Potassium 4.2 (3.5-5.1) mmol/L Chloride 112 H (98-107) mmol/L Carbon Dioxide 22 (22-30) mmol/L Anion Gap 7 mmol/L BUN 19 H (7-17) mg/dL Creatinine 0.70 (0.52-1.04) mg/dL Est GFR (CKD-EPI)AfAm >90 (>60 ml/min/1.73 sqM) Est GFR (CKD-EPI)NonAf 81 (>60 ml/min/1.73 sqM) Glucose 154 H (74-99) mg/dL POC Glucose (mg/dL) 158 H (75-99) mg/dL POC Glu Hostler Helper ID Yadiel Denita Plasma Lactic Acid Evelio (0.7-2.0) mmol/L Calcium 9.7 (8.4-10.2) mg/dL Total Bilirubin 0.6 (0.2-1.3) mg/dL AST 25 (14-36) U/L ALT 27 (9-52) U/L Alkaline Phosphatase 71 (38-126) U/L Total Protein 7.4 (6.3-8.2) g/dL Albumin 4.1 (3.5-5.0) g/dL Urine Color Urine Appearance (Clear) Urine pH (5.0-8.0) Ur Specific [place] (1.001-1.035) Urine Protein (Negative) Urine Glucose (UA) (Negative) Urine Ketones (Negative) Urine Blood (Negative) Urine Nitrite (Negative) Urine Bilirubin (Negative) Urine Urobilinogen (<2.0) mg/dL Ur Leukocyte Esterase (Negative) Acetone, Qual Negative (Negative) 05/04/18 05/04/18 Range/Units 16:18 16:30 WBC (3.8-10.6) k/uL RBC (3.80-5.40) m/uL Hgb (11.4-16.0) gm/dL Hct (34.0-46.0) % MCV (80.0-100.0) fL MCH (25.0-35.0) pg MCHC (31.0-37.0) g/dL RDW (11.5-15.5) % Plt Count (150-450) k/uL Neutrophils % % Lymphocytes % % Monocytes % % Eosinophils % % Basophils % % Neutrophils # (1.3-7.7) k/uL Lymphocytes # (1.0-4.8) k/uL Monocytes # (0-1.0) k/uL Eosinophils # (0-0.7) k/uL Basophils # (0-0.2) k/uL Sodium (137-145) mmol/L Potassium (3.5-5.1) mmol/L Chloride (98-107) mmol/L Carbon Dioxide (22-30) mmol/L Anion Gap mmol/L BUN (7-17) mg/dL Creatinine (0.52-1.04) mg/dL Est GFR (CKD-EPI)AfAm (>60 ml/min/1.73 sqM) Est GFR (CKD-EPI)NonAf (>60 ml/min/1.73 sqM) Glucose (74-99) mg/dL POC Glucose (mg/dL) (75-99) mg/dL POC Glu Hostler Helper ID Plasma Lactic Acid Evelio 1.0 (0.7-2.0) mmol/L Calcium (8.4-10.2) mg/dL Total Bilirubin (0.2-1.3) mg/dL AST (14-36) U/L ALT (9-52) U/L Alkaline Phosphatase (38-126) U/L Total Protein (6.3-8.2) g/dL Albumin (3.5-5.0) g/dL Urine Color Colorless Urine Appearance Clear (Clear) Urine pH 7.0 (5.0-8.0) Ur Specific [place] 1.004 (1.001-1.035) Urine Protein Trace H (Negative) Urine Glucose (UA) Negative (Negative) Urine Ketones Negative (Negative) Urine Blood Negative (Negative) Urine Nitrite Negative (Negative) Urine Bilirubin Negative (Negative) Urine Urobilinogen <2.0 (<2.0) mg/dL Ur Leukocyte Esterase Negative (Negative) Acetone, Qual (Negative) Disposition Clinical Impression: Hyperglycemia Disposition: HOME SELF-CARE Condition: Good Instructions: Diabetic Hyperglycemia (ED) Is patient prescribed a controlled substance at d/c from ED?: No Referrals: Esvin Ramirez DO [Primary Care Provider] - 1-2 days Time of Disposition: 18:21
[2018-05-04 16:31] LABS: Basophils % (A) 0 %; Eosinophils # (A) 0.1 k/uL (0-0.7); Eosinophils % (A) 1 %; HCT 35.7 % (34.0-46.0); HGB 11.7 gm/dL (11.4-16.0); Lymphocytes # (A) 0.9 k/uL (1.0-4.8); Lymphocytes % (A) 13 %; MCHC 32.8 g/dL (31.0-37.0); MCV 88.6 fL (80.0-100.0); Mean Platelet Volume 7.5; Monocytes # (A) 0.4 k/uL (0-1.0); Monocytes % (A) 5 %; Neutrophils # (A) 5.3 k/uL (1.3-7.7); Neutrophils % (A) 79 %; Platelet Count 208 k/uL (150-450); RBC 4.03 m/uL (3.80-5.40); WBC 6.7 k/uL (3.8-10.6)
[2018-05-04 16:45] LABS: ALT 27 U/L (9-52); AST 25 U/L (14-36); Albumin 4.1 g/dL (3.5-5.0); Alkaline Phosphatase 71 U/L (38-126); Anion Gap 7 mmol/L; Blood Urea Nitrogen 19 mg/dL (7-17); Calcium 9.7 mg/dL (8.4-10.2); Carbon Dioxide 22 mmol/L (22-30); Chloride 112 mmol/L (98-107); Glucose 154 mg/dL (74-99); Potassium 4.2 mmol/L (3.5-5.1); Sodium 141 mmol/L (137-145); Total Bilirubin 0.6 mg/dL (0.2-1.3); Total Protein 7.4 g/dL (6.3-8.2)
[2018-05-04 16:57] LABS: Appearance,Urine Clear (Clear); Bilirubin,Urine Negative (Negative); Blood,Urine Negative (Negative); Color,Urine Colorless; Glucose,Urine (UA) Negative (Negative); Ketones,Urine Negative (Negative); Leukocyte Esterase,Urine Negative (Negative); Nitrite,Urine Negative (Negative); Protein,Urine Trace (Negative); Specific Gravity,Urine 1.004 (1.001-1.035); Urobilinogen,Urine <2.0 mg/dL (<2.0)
--- NOTE | 2018-05-04 17:56 | XR ---
EXAMINATION TYPE: XR chest 2V DATE OF EXAM: 05/04/2018 COMPARISON: 01/30/2018 HISTORY: Hypertension TECHNIQUE: Frontal and lateral views of the chest are obtained. FINDINGS: Heart and mediastinum are normal. Lungs are clear. Costophrenic angles are clear. There ar e sternal wires. Thoracic aorta is atheromatous. There is some arthritic change at both shoulder join ts. IMPRESSION: No active cardiopulmonary disease. No change.
[2018-05-04 18:15] VITALS: BP 178/76
== END 2018-05-04 18:50 | disposition home or self-care (01) ==
LOC: EC 14:43
DX: E11.65 Type 2 diabetes mellitus with hyperglycemia (principal); R11.2 Nausea with vomiting, unspecified; I25.119 Atherosclerotic heart disease of native coronary artery with unspecified angina pectoris; K21.9 Gastro-esophageal reflux disease without esophagitis; E78.5 Hyperlipidemia, unspecified; I10 Essential (primary) hypertension; M19.90 Unspecified osteoarthritis, unspecified site; E03.9 Hypothyroidism, unspecified; E11.319 Type 2 diabetes mellitus with unspecified diabetic retinopathy without macular edema; E11.42 Type 2 diabetes mellitus with diabetic polyneuropathy; H54.61 Unqualified visual loss, right eye, normal vision left eye; D64.9 Anemia, unspecified; Z86.73 Personal history of transient ischemic attack (TIA), and cerebral infarction without residual deficits; Z79.01 Long term (current) use of anticoagulants; Z79.84 Long term (current) use of oral hypoglycemic drugs; Z79.899 Other long term (current) drug therapy; Z88.6 Allergy status to analgesic agent; Z91.041 Radiographic dye allergy status; Z91.013 Allergy to seafood; Z88.8 Allergy status to other drugs, medicaments and biological substances; Z95.818 Presence of other cardiac implants and grafts; Z95.1 Presence of aortocoronary bypass graft
CPT/HCPCS: 36415; 71046; 80053; 81003; 82009; 83605; 85025; 99284

== ENCOUNTER 2018-06-16 16:17 | Observation (INO) | payer MEDICARE, OTHER ==
[2018-06-16 16:30] LABS: Glucose,Whole Blood 267 mg/dL (75-99)
[2018-06-16] MEDS ORDERED: SODIUM CHLORIDE 0.9% 1,000 ML IV STA (16:46)
--- NOTE | 2018-06-16 17:04 | ED ---
General Adult HPI - General Chief complaint: Syncope Stated complaint: Syncope Source: patient, family, EMS, RN notes reviewed, old records reviewed Mode of arrival: ambulatory Limitations: no limitations - History of Present Illness Initial comments: Chief complaint and history of present illness this is an 83-year-old female brought to emergency by ambulance. The granddaughter states that it appeared her is that she may have had a TIA at home. For approximately 20 minutes she stated that her grandmother was unable to speak to her. She was almost falling out of her chair. She does have a history of having had TIAs, for in the past several years. And 10 years ago significant stroke that left her with some residual weakness on the left side. Just prior to the ambulance arriving the patient returned more toward baseline. The patient has no memory of the incident. Granddaughter also reports that she did a blood pressure at home and it was 76/49. Her blood sugar was 299 at home. Emergency room the patient was evaluated, EKG showed normal sinus rhythm without ectopy. And her blood sugar here was 267. - Related Data Home Medications Medication Instructions Recorded Confirmed Benazepril HCl 20 mg PO BID 11/05/13 06/16/18 Clopidogrel Bisulfate [Plavix] 75 mg PO DAILY 11/05/13 06/16/18 glyBURIDE [Diabeta] 5 mg PO QAM 11/05/13 06/16/18 Cholecalciferol [Vitamin D3] 3,000 unit PO DAILY 02/05/15 06/16/18 Atorvastatin Calcium [Lipitor] 40 mg PO HS 02/18/16 06/16/18 amLODIPine BESYLATE [Norvasc] 5 mg PO BID 02/18/16 06/16/18 Levothyroxine Sodium [Synthroid] 50 mcg PO DAILY 01/07/17 06/16/18 Meclizine HCl 12.5 mg PO Q8H PRN 01/07/17 06/16/18 Famotidine [Pepcid] 20 mg PO DAILY 07/27/17 06/16/18 Prazosin [Minipress] 1 mg PO BID 07/27/17 06/16/18 Cranberry Fruit Extract [Cranberry] 1,000 mg PO DAILY 05/04/18 06/16/18 glyBURIDE [Diabeta] 2.5 mg PO HS 12/08/18 12/08/18 metFORMIN HCL 500 mg PO BID 06/16/18 06/16/18 sitaGLIPtin [Januvia] 50 mg PO DAILY 06/16/18 06/16/18 Previous Rx's Medication Instructions Recorded Multivitamins, Thera [Multivitamin 1 each PO DAILY@1200 #30 tab 02/02/18 (formulary)] Thiamine [Vitamin B-1] 100 mg PO DAILY@1200 #30 tab 02/02/18 Allergies Allergy/AdvReac Type Severity Reaction Status Date / Time aspirin Allergy Rash/Hives Verified 06/16/18 17:07 fish derived Allergy Rash/Hives Verified 06/16/18 17:07 Iodinated Contrast- Oral and Allergy Rash/Hives Verified 06/16/18 17:07 IV Dye [Iodinated Contrast Media - IV Dye] Iodine and Iodide Containing Allergy Rash/Hives Verified 06/16/18 17:07 Produc shellfish derived [Shellfish] Allergy Rash/Hives Verified 06/16/18 17:07 Review of Systems ROS Statement: Those systems with pertinent positive or pertinent negative responses have been documented in the HPI. Review of systems patient complains of mild headache in the frontal region. No change in visual acuity. 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 No stiff neck, no meningismus. No chest pain or palpitations this time though she does states she had mild left sided chest pressure sometime early this morning. No nausea no vomiting. No significant change relative to her previous weakness on the left side. The patient is able to ambulate slightly at home uses a walker most of the time. All systems were reviewed. Past medical problems significant for heart disease, angina, CVAs and TIAs, type 2 diabetes, blind right eye since childhood, GERD, hyperlipidemia, hypertension, osteoarthritis, syncopal episodes of hypothyroidism. The patient' s previous medical problems concerning CVA in 1996 left her with left arm left leg weakness. She's also had chronic his father has had multiple esophageal strictures with dilatation. History of hiatal hernia and chronic pain syndrome. Her surgeries include a bladder surgery, gallbladder, CABG, hysterectomy. Patient's also had cataract surgery and bladder suspension. Nonsmoker nondrinker. Family history father was heavy alcohol user of liver disease. ROS Other: All systems not noted in ROS Statement are negative. 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 History of Any Multi-Drug Resistant Organisms: None Reported Past Surgical History: Bladder Surgery, Cholecystectomy, Coronary Bypass/CABG, Heart Catheterization, Hysterectomy Additional Past Surgical History / Comment(s): CABG-2007, Ccath 2007, multiple EGDs/dilations with biopsies, COLONOSCOPY. Cataracts, D&C, bladder suspension. Past Anesthesia/Blood Transfusion Reactions: Motion Sickness, Postoperative Nausea & Vomiting (PONV) Past Psychological History: No Psychological Hx Reported Smoking Status: Never smoker Past Alcohol Use History: None Reported Past Drug Use History: None Reported - Past Family History Father Family Medical History: Liver Disease Additional Family Medical History / Comment(s): Father of cirrhosis. He was a drinker. Mother Family Medical History: Unable to Obtain Additional Family Medical History / Comment(s): Pt states she does not know her mother's medical history. Son(s) Family Medical History: Renal Disease Daughter(s) Family Medical History: Cancer General Exam - General Exam Comments Initial Comments: General: The patient is awake and alert, currently no distress. Patient is unaware of what happened at home. Granddaughter states that she had what at this time appears to been a TIA lasting approximately 20-25 minutes. Soon after the arrival of the EMS the patient was back to baseline. Granddaughter reports that her grandmother stopped talking to her. Looked as though she was about to fall out of her chair. Her blood sugar measured by the granddaughter was 299 and her blood pressure was low per granddaughter at 76/49. Vital signs upon arrival to emergency room found temperature 97.9, pulse 65 respiratory rate 18 blood pressure 141/53 and pulse ox on percent room air Eye: Left eye pupil active normally to light. Patient is blind since childhood in her right eye. Ears, nose, mouth and throat: There are moist mucous membranes and no oral lesions. Poor dentition Neck: The neck is supple, there is no tenderness, no carotid bruit appreciated. Cardiovascular: There is a regular rate and rhythm. No murmur, rub or gallop is appreciated. Respiratory: Lungs are clear to auscultation, respirations are non-labored, breath sounds are equal. No wheezes, stridor, rales, or rhonchi. Gastrointestinal: Soft, non-distended, non-tender abdomen without masses or organomegaly noted. There is no rebound or guarding present. No CVA tenderness. Bowel sounds are unremarkable. Back: No complaint of back pain. Musculoskeletal: Able to move all extremities. Weakness to the left arm left leg residual from her stroke many years ago. Neurological: Alert and oriented at this time. No drift. Past history of TIAs, for the past several years per family. Major stroke in the past resulting in left arm leg weakness. Back to baseline per family. Skin: Skin is warm and dry and no rashes or lesions are noted. Psychiatric: Cooperative, Limitations: no limitations Course Vital Signs 06/16/18 06/16/18 06/16/18 16:26 16:30 16:40 Temperature 97.9 F Pulse Rate 65 62 62 Respiratory 18 18 18 Rate Blood Pressure 141/53 141/53 141/53 O2 Sat by Pulse 100 Oximetry 06/16/18 06/16/18 06/16/18 16:50 17:00 17:10 Temperature Pulse Rate 61 60 Respiratory 19 18 18 Rate Blood Pressure 141/53 141/53 141/53 O2 Sat by Pulse Oximetry 06/16/18 06/16/18 06/16/18 17:20 17:30 17:40 Temperature Pulse Rate 61 59 L Respiratory 12 18 Rate Blood Pressure 141/53 141/53 141/53 O2 Sat by Pulse Oximetry 06/16/18 06/16/18 06/16/18 17:50 18:00 18:10 Temperature Pulse Rate 63 63 59 L Respiratory 11 L 17 18 Rate Blood Pressure 158/59 158/59 158/59 O2 Sat by Pulse 99 97 100 Oximetry 06/16/18 06/16/18 06/16/18 18:20 18:30 18:40 Temperature Pulse Rate 62 61 58 L Respiratory 20 20 20 Rate Blood Pressure 158/59 158/59 158/59 O2 Sat by Pulse 99 97 98 Oximetry 06/16/18 06/16/18 06/16/18 18:50 19:00 19:10 Temperature Pulse Rate 59 L 58 L 56 L Respiratory 19 19 17 Rate Blood Pressure 158/59 158/59 158/59 O2 Sat by Pulse 97 95 98 Oximetry 06/16/18 19:20 Temperature Pulse Rate 57 L Respiratory 18 Rate Blood Pressure 158/59 O2 Sat by Pulse 96 Oximetry EKG Findings - EKG Comments: EKG Findings:: EKG was done and reviewed at 1637 showing normal sinus rhythm with nonspecific ST-T wave changes. No acute ST elevation. Rate 63 AR interval is 150 QRS 98 QT [address] Forde Medical Decision Making - Medical Decision Making Medical decision making; this is an 83-year-old female brought into emergency room via ambulance because a TIA symptoms. The patient is back to baseline per family at this time. Nurse's unable to obtain labs so lab has been called drop blood. CT the brain was done and the radiologist's impression is ; cerebral atrophy that is more noticeable in the temporal lobes. No acute intracranial abnormality. No change. As read by Dr. Mosqueda. Chest x-ray was reviewed by radiologist his impression is no active cardiopulmonary disease. No change. As read by Dr. Mosqueda The patient's laboratory shows white count 7.5 hemoglobin 10.9 hematocrit of 33 and INR 1.0. The patient's potassium is 4.3 BUN 25 creatinine 0.98 GFR 64. Patient's glucose 189. Troponin normal. The patient continues to remain at baseline. The patient's case discussed with Dr. chowdhury, patient be admitted to his service with consultation from on-call neurology. - Lab Data Result diagrams: 06/16/18 18:10 06/16/18 18:10 Lab Results 06/16/18 06/16/18 06/16/18 Range/Units 16:28 18:10 18:10 WBC 7.5 (3.8-10.6) k/uL RBC 3.70 L (3.80-5.40) m/uL Hgb 10.9 L (11.4-16.0) gm/dL Hct 33.8 L (34.0-46.0) % MCV 91.1 (80.0-100.0) fL MCH 29.4 (25.0-35.0) pg MCHC 32.2 (31.0-37.0) g/dL RDW 13.9 (11.5-15.5) % Plt Count 160 (150-450) k/uL Neutrophils % 79 % Lymphocytes % 14 % Monocytes % 5 % Eosinophils % 1 % Basophils % 0 % Neutrophils # 5.9 (1.3-7.7) k/uL Lymphocytes # 1.1 (1.0-4.8) k/uL Monocytes # 0.4 (0-1.0) k/uL Eosinophils # 0.1 (0-0.7) k/uL Basophils # 0.0 (0-0.2) k/uL PT 11.0 (9.0-12.0) sec INR 1.0 (<1.2) APTT 23.4 (22.0-30.0) sec Sodium (137-145) mmol/L Potassium (3.5-5.1) mmol/L Chloride (98-107) mmol/L Carbon Dioxide (22-30) mmol/L Anion Gap mmol/L BUN (7-17) mg/dL Creatinine (0.52-1.04) mg/dL Est GFR (CKD-EPI)AfAm (>60 ml/min/1.73 sqM) Est GFR (CKD-EPI)NonAf (>60 ml/min/1.73 sqM) Glucose (74-99) mg/dL POC Glucose (mg/dL) 267 H (75-99) mg/dL POC Glu Furnace Process Plant Operator ID Saida Gastelum Calcium (8.4-10.2) mg/dL Total Bilirubin (0.2-1.3) mg/dL AST (14-36) U/L ALT (9-52) U/L Alkaline Phosphatase (38-126) U/L Total Creatine Kinase (30-135) U/L CK-MB (CK-2) (0.0-2.4) ng/mL CK-MB (CK-2) Rel Index Troponin I (0.000-0.034) ng/mL Total Protein (6.3-8.2) g/dL Albumin (3.5-5.0) g/dL 06/16/18 06/16/18 Range/Units 18:10 18:10 WBC (3.8-10.6) k/uL RBC (3.80-5.40) m/uL Hgb (11.4-16.0) gm/dL Hct (34.0-46.0) % MCV (80.0-100.0) fL MCH (25.0-35.0) pg MCHC (31.0-37.0) g/dL RDW (11.5-15.5) % Plt Count (150-450) k/uL Neutrophils % % Lymphocytes % % Monocytes % % Eosinophils % % Basophils % % Neutrophils # (1.3-7.7) k/uL Lymphocytes # (1.0-4.8) k/uL Monocytes # (0-1.0) k/uL Eosinophils # (0-0.7) k/uL Basophils # (0-0.2) k/uL PT (9.0-12.0) sec INR (<1.2) APTT (22.0-30.0) sec Sodium 140 (137-145) mmol/L Potassium 4.3 (3.5-5.1) mmol/L Chloride 110 H (98-107) mmol/L Carbon Dioxide 21 L (22-30) mmol/L Anion Gap 9 mmol/L BUN 25 H (7-17) mg/dL Creatinine 0.98 (0.52-1.04) mg/dL Est GFR (CKD-EPI)AfAm 62 (>60 ml/min/1.73 sqM) Est GFR (CKD-EPI)NonAf 54 (>60 ml/min/1.73 sqM) Glucose 189 H (74-99) mg/dL POC Glucose (mg/dL) (75-99) mg/dL POC Glu Furnace Process Plant Operator ID Calcium 9.3 (8.4-10.2) mg/dL Total Bilirubin 0.4 (0.2-1.3) mg/dL AST 17 (14-36) U/L ALT 25 (9-52) U/L Alkaline Phosphatase 58 (38-126) U/L Total Creatine Kinase 78 (30-135) U/L CK-MB (CK-2) 1.7 (0.0-2.4) ng/mL CK-MB (CK-2) Rel Index 2.2 Troponin I <0.012 (0.000-0.034) ng/mL Total Protein 6.4 (6.3-8.2) g/dL Albumin 3.5 (3.5-5.0) g/dL Disposition Clinical Impression: TIA (transient ischemic attack) Disposition: ADMITTED IP TO THIS HOSP Condition: Fair Is patient prescribed a controlled substance at d/c from ED?: No Referrals: Esvin Ramirez DO [Primary Care Provider] - 1-2 days
--- NOTE | 2018-06-16 17:25 | CT ---
EXAMINATION TYPE: CT brain wo con DATE OF EXAM: 06/16/2018 COMPARISON: 01/30/2018 HISTORY: ams, syncope CT DLP: 1017.4 mGycm Automated exposure control for dose reduction was used. FINDINGS: There is cerebral cortical atrophy. There is no mass effect nor midline shift. There is no sign of in tracranial hemorrhage. I see no focal cortical infarct. Calvarium is intact. There is dense symmetric thalamic calcification. 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 NO ACUTE INTRACRANIAL ABNORMALITY. NO CHANGE.
--- NOTE | 2018-06-16 18:01 | XR ---
EXAMINATION TYPE: XR chest 2V DATE OF EXAM: 06/16/2018 COMPARISON: 05/04/2018 HISTORY: Altered mental status TECHNIQUE: Frontal and lateral views of the chest are obtained. FINDINGS: There is no heart failure nor confluent pneumonic infiltrate. Costophrenic angles are jesus r. There are sternal wires. There are chest leads. Bony thorax is intact. There is spurring in the th oracic spine. IMPRESSION: No active cardiopulmonary disease. No change.
[2018-06-16 18:33] LABS: Basophils % (A) 0 %; Eosinophils # (A) 0.1 k/uL (0-0.7); Eosinophils % (A) 1 %; HCT 33.8 % (34.0-46.0); HGB 10.9 gm/dL (11.4-16.0); Lymphocytes # (A) 1.1 k/uL (1.0-4.8); Lymphocytes % (A) 14 %; MCH 29.4 pg (25.0-35.0); MCHC 32.2 g/dL (31.0-37.0); MCV 91.1 fL (80.0-100.0); Mean Platelet Volume 7.9; Monocytes # (A) 0.4 k/uL (0-1.0); Monocytes % (A) 5 %; Neutrophils # (A) 5.9 k/uL (1.3-7.7); Neutrophils % (A) 79 %; Platelet Count 160 k/uL (150-450); RDW 13.9 % (11.5-15.5); WBC 7.5 k/uL (3.8-10.6)
[2018-06-16 18:40] LABS: Partial Thromboplastin Time 23.4 sec (22.0-30.0)
[2018-06-16 18:51] LABS: Albumin 3.5 g/dL (3.5-5.0); Calcium 9.3 mg/dL (8.4-10.2); Potassium 4.3 mmol/L (3.5-5.1); Total Bilirubin 0.4 mg/dL (0.2-1.3); Total Protein 6.4 g/dL (6.3-8.2)
[2018-06-16 18:52] LABS: Creatine Kinase 78 U/L (30-135)
[2018-06-16 19:03] LABS: Creatine Kinase MB 1.7 ng/mL (0.0-2.4); Troponin I <0.012 ng/mL (0.000-0.034)
[2018-06-16] MEDS ORDERED: NALOXONE 0.4 MG/ML 1 ML VIAL IV PRN (19:56)
[2018-06-16] MEDS ORDERED: ACETAMINOPHEN TAB 325 MG TAB PO PRN (19:56)
[2018-06-16 21:10] VITALS: BMI 29.0
[2018-06-16] MEDS: ATORVASTATIN 40 MG TAB PO SCH (21:23)
[2018-06-16] MEDS: glipiZIDE 5 MG TAB PO SCH (21:23)
[2018-06-16] MEDS: amLODIPine 5 MG TAB PO SCH (21:23)
[2018-06-16] MEDS: LISINOPRIL 20 MG TAB PO SCH (21:23)
[2018-06-16 21:47] LABS: Glucose,Whole Blood 128 mg/dL (75-99)
[2018-06-16] MEDS: PRAZOSIN 1 MG CAP PO SCH (22:05)
[2018-06-17] MEDS: LEVOTHYROXINE 50 MCG TAB PO SCH (06:19)
[2018-06-17 06:28] LABS: Glucose,Whole Blood 95 mg/dL (75-99)
[2018-06-17] MEDS: SODIUM CHLORIDE 0.9% 1,000 ML IV SCH ×2 (06:47→20:32)
[2018-06-17] MEDS: FAMOTIDINE 20 MG TAB PO SCH (08:18)
[2018-06-17] MEDS: CLOPIDOGREL 75 MG TAB PO SCH (08:18)
[2018-06-17] MEDS: LISINOPRIL 20 MG TAB PO SCH ×2 (08:18→20:30)
[2018-06-17] MEDS: LINAGLIPTIN 5 MG TABLET PO SCH (08:18)
[2018-06-17] MEDS: glipiZIDE 10 MG TAB PO SCH (08:18)
[2018-06-17] MEDS: amLODIPine 5 MG TAB PO SCH ×2 (08:18→20:30)
[2018-06-17] MEDS: PRAZOSIN 1 MG CAP PO SCH ×2 (08:19→21:16)
[2018-06-17 11:30] LABS: Glucose,Whole Blood 169 mg/dL (75-99)
[2018-06-17] MEDS: CHOLECALCIFEROL 1,000 UNIT TAB PO SCH (11:44)
[2018-06-17] MEDS: THIAMINE 100 MG TAB PO SCH (11:44)
--- NOTE | 2018-06-17 12:26 | P.HPIM ---
History of Present Illness 83-year-old the pleasant female with history of a previous stroke with some residual weakness in the left side uses a walker came in after an episode of staring decreasing responsiveness no seizure-like activity but she was bit stiff no aura-like symptoms and no postictal confusion no tongue biting loss of bowel or bladder continence without any new focal weakness. Patient blood sugars were elevated at the time blood pressure was low at that time. Patient' s stroke was 20 years ago. All the symptoms lasted for only a few minutes he denied any fever chills nausea vomiting. Her blood sugars are well controlled. With her home regimen. is already on antiplatelet therapy and a statin. Review of Systems REVIEW OF SYSTEMS: CONSTITUTIONAL: No fever, no malaise, no fatigue. HEENT: No recent visual problems or hearing problems. Denied any sore throat. CARDIOVASCULAR: No chest pain, orthopnea, PND, no palpitations, no syncope. PULMONARY: No shortness of breath, no cough, no hemoptysis. GASTROINTESTINAL: No diarrhea, no nausea, no vomiting, no abdominal pain. Normoactive bowel sounds. NEUROLOGICAL: As mentioned above HEMATOLOGICAL: Denies any bleeding or petechiae. GENITOURINARY: Denies any burning micturition, frequency, or urgency. MUSCULOSKELETAL/RHEUMATOLOGICAL: Denies any joint pain, swelling, or any muscle pain. ENDOCRINE: Denies any polyuria or polydipsia. The rest of the 14-point review of systems is negative. 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 History of Any Multi-Drug Resistant Organisms: None Reported Past Surgical History: Bladder Surgery, Cholecystectomy, Coronary Bypass/CABG, Heart Catheterization, Hysterectomy Additional Past Surgical History / Comment(s): CABG-2007, Ccath 2007, multiple EGDs/dilations with biopsies, COLONOSCOPY. Cataracts, D&C, bladder suspension. Past Anesthesia/Blood Transfusion Reactions: Motion Sickness, Postoperative Nausea & Vomiting (PONV) Past Psychological History: No Psychological Hx Reported Additional Psychological History / Comment(s): pt lives at home with her bree. pt has a cleaning service come to home. has cane, w/c, walker, shower chair, glucometer, bp machine Smoking Status: Never smoker Past Alcohol Use History: None Reported Past Drug Use History: None Reported - Past Family History Father Family Medical History: Liver Disease Additional Family Medical History / Comment(s): Father of cirrhosis. He was a drinker. Mother Family Medical History: Unable to Obtain Additional Family Medical History / Comment(s): Pt states she does not know her mother's medical history. Son(s) Family Medical History: Unable to Obtain, Renal Disease Daughter(s) Family Medical History: Cancer Medications and Allergies Home Medications Medication Instructions Recorded Confirmed Type Benazepril HCl 20 mg PO BID 11/05/13 06/16/18 History Clopidogrel Bisulfate [Plavix] 75 mg PO DAILY 11/05/13 06/16/18 History glyBURIDE [Diabeta] 5 mg PO QAM 11/05/13 06/16/18 History Cholecalciferol [Vitamin D3] 3,000 unit PO DAILY 02/05/15 06/16/18 History Atorvastatin Calcium [Lipitor] 40 mg PO HS 02/18/16 06/16/18 History amLODIPine BESYLATE [Norvasc] 5 mg PO BID 02/18/16 06/16/18 History Levothyroxine Sodium [Synthroid] 50 mcg PO DAILY 01/07/17 06/16/18 History Meclizine HCl 12.5 mg PO Q8H PRN 01/07/17 06/16/18 History Famotidine [Pepcid] 20 mg PO DAILY 07/27/17 06/16/18 History Prazosin [Minipress] 1 mg PO BID 07/27/17 06/16/18 History Multivitamins, Thera [Multivitamin 1 each PO DAILY@1200 #30 tab 02/02/18 Rx (formulary)] Thiamine [Vitamin B-1] 100 mg PO DAILY@1200 #30 tab 02/02/18 06/16/18 Rx Cranberry Fruit Extract [Cranberry] 1,000 mg PO DAILY 05/04/18 06/16/18 History glyBURIDE [Diabeta] 2.5 mg PO HS 06/16/18 06/16/18 History metFORMIN HCL 500 mg PO BID 06/16/18 06/16/18 History sitaGLIPtin [Januvia] 50 mg PO DAILY 06/16/18 06/16/18 History Allergies Allergy/AdvReac Type Severity Reaction Status Date / Time aspirin Allergy Rash/Hives Verified 06/16/18 17:07 fish derived Allergy Rash/Hives Verified 06/16/18 17:07 Iodinated Contrast- Oral and Allergy Rash/Hives Verified 06/16/18 17:07 IV Dye [Iodinated Contrast Media - IV Dye] Iodine and Iodide Containing Allergy Rash/Hives Verified 06/16/18 17:07 Produc shellfish derived [Shellfish] Allergy Rash/Hives Verified 06/16/18 17:07 Physical Exam Vitals: Vital Signs Temp Pulse Pulse Resp BP BP Pulse Ox 06/17/18 11:42 58 L 17 170/84 97 06/17/18 08:52 98 06/17/18 08:00 98 F 66 16 147/65 98 06/17/18 04:00 98.6 F 57 L 16 130/60 97 06/17/18 00:00 98.9 F 78 16 172/74 98 06/16/18 20:57 96.7 F L 60 16 194/81 99 06/16/18 20:27 98.2 F 62 18 159/62 98 06/16/18 19:20 57 L 18 158/59 96 06/16/18 19:10 56 L 17 158/59 98 06/16/18 19:00 58 L 19 158/59 95 06/16/18 18:50 59 L 19 158/59 97 06/16/18 18:40 58 L 20 158/59 98 06/16/18 18:30 61 20 158/59 97 06/16/18 18:20 62 20 158/59 99 06/16/18 18:10 59 L 18 158/59 100 06/16/18 18:00 63 17 158/59 97 06/16/18 17:50 63 11 L 158/59 99 06/16/18 17:40 59 L 18 141/53 06/16/18 17:30 61 12 141/53 06/16/18 17:20 141/53 06/16/18 17:10 18 141/53 06/16/18 17:00 60 18 141/53 06/16/18 16:50 61 19 141/53 06/16/18 16:40 62 18 141/53 06/16/18 16:30 62 18 141/53 06/16/18 16:26 97.9 F 65 18 141/53 100 Intake and Output 06/16/18 06/17/18 06/17/18 22:59 06:59 14:59 Other: # Voids 1 Weight 67.585 kg 67.1 kg PHYSICAL EXAMINATION: GENERAL: The patient is alert and oriented x3, not in any acute distress. Well developed, well nourished. HEENT: Pupils are round and equally reacting to light. EOMI. No scleral icterus. No conjunctival pallor. Normocephalic, atraumatic. No pharyngeal erythema. No thyromegaly. CARDIOVASCULAR: S1 and S2 present. No murmurs, rubs, or gallops. PULMONARY: Chest is clear to auscultation, no wheezing or crackles. ABDOMEN: Soft, nontender, nondistended, normoactive bowel sounds. No palpable organomegaly. MUSCULOSKELETAL: No joint swelling or deformity. EXTREMITIES: No cyanosis, clubbing, or pedal edema. NEUROLOGICAL: Gross neurological examination did not reveal any new focal deficits. SKIN: No rashes. Results CBC & Chem 7: 06/16/18 18:10 06/16/18 18:10 Labs: Abnormal Lab Results - Last 24 Hours (Table) 06/16/18 06/16/18 06/16/18 Range/Units 16:28 18:10 18:10 RBC 3.70 L (3.80-5.40) m/uL Hgb 10.9 L (11.4-16.0) gm/dL Hct 33.8 L (34.0-46.0) % Chloride 110 H (98-107) mmol/L Carbon Dioxide 21 L (22-30) mmol/L BUN 25 H (7-17) mg/dL Glucose 189 H (74-99) mg/dL POC Glucose (mg/dL) 267 H (75-99) mg/dL 06/16/18 06/17/18 Range/Units 21:44 11:28 RBC (3.80-5.40) m/uL Hgb (11.4-16.0) gm/dL Hct (34.0-46.0) % Chloride (98-107) mmol/L Carbon Dioxide (22-30) mmol/L BUN (7-17) mg/dL Glucose (74-99) mg/dL POC Glucose (mg/dL) 128 H 169 H (75-99) mg/dL Thrombosis Risk Factor Assmnt - Choose All That Apply Any of the Below Risk Factors Present?: Yes Each Factor Represents 1 point: Obesity (BMI >25) Each Risk Factor Represents 3 Points: Age 75 years or older Thrombosis Risk Factor Assessment Total Risk Factor Score: 4 Thrombosis Risk Factor Assessment Level: Moderate Risk Assessment and Plan Plan: -Possible TIA are transient global amnesia: Neurology will be consulted will do the stroke workup starting with a carotid Doppler, echocardiogram, EEG neurology evaluation continue with antiplatelet therapy statin. -Type 2 diabetes mellitus well controlled blood sugars here apparently uncontrolled and elevated blood sugars at home continue with present regimen titrate depending on the blood sugars -Hypertension continue with home regimen This history of CVA with residual weakness about 46+/5 strength in left upper and lower extremity -Hypothyroidism -Hyperlipidemia -Coronary artery disease -Gastroesophageal reflux disease For above-mentioned chronic medical problems patient will be resumed and continued on appropriate home medications.
[2018-06-17 16:38] LABS: Glucose,Whole Blood 226 mg/dL (75-99)
[2018-06-17 20:19] LABS: Glucose,Whole Blood 239 mg/dL (75-99)
[2018-06-17] MEDS: ATORVASTATIN 40 MG TAB PO SCH (20:30)
[2018-06-17] MEDS: glipiZIDE 5 MG TAB PO SCH (20:30)
--- NOTE | 2018-06-17 20:38 | P.CNNES ---
History of Present Illness Consult date: 06/17/18 Reason for Consult: Patient admitted with TIA and speech impairment. History of Present Illness: This patient is a 83-year-old right-handed white female who was in her usual state of health yesterday. The patient lives at home with her and apparently her granddaughter was home with her to help her with her clay worker as they are both living alone. She states that her mother and herself have been keeping an eye on the patient and her on a regular basis. Yesterday while the granddaughter was visiting she noted that her grandmother was unresponsive and staring into space when she was talking with her. The granddaughter stated for about 20 minutes the patient had no verbal conversation. She continued to try and get her attention and get her to speak but there was no verbal output. She appeared to be weak and was slumping in her chair at the time as well. She does have a history of TIA and stroke in the past. She has a history of a old right hemispheric stroke which left her with some residual left-sided weakness. The granddaughter was very concerned and decided to call EMS. By the time EMS arrived at the home the patient seemed to come around and was now speaking. Patient has no memory of this actual event when questioned by the EMS as well as a granddaughter. She was noted during this episode as having a very low blood pressure which she had checked at the time. Her blood sugars were checked on the site and was noted to be 299. The patient apparently has had low blood pressure responses in the past. This has been more recently noted. The patient was transported to the emergency room at [facility] for further evaluation. She was seen in the ER by Dr. Forde. Her speech had returned to near baseline by this time. A repeat blood sugar done in the ER was 267. Patient was sent for a computed tomography scan of the brain. CAT scan of the brain revealed cerebral atrophy most notable in the temporal lobes bilaterally. There was no evidence of acute stroke or hemorrhage. The patient was subtotally admitted to hospital for full stroke evaluation. The patient states that she has no memory of this event of 20 minutes of no verbal output. She does seem to be back to baseline at this time and most likely had some form of a TIA. The patient does have a known history of underlying diabetes mellitus. Her blood sugars have been running slightly elevated recently. She is also on 40 mg of Lipitor daily. The patient is now admitted and neurology has been consulted for further evaluation and recommendations. Review of Systems Constitutional: Denies chills, Denies fever Eyes: denies blurred vision, denies pain Ears, nose, mouth and throat: Denies headache, Denies sore throat Cardiovascular: Denies chest pain, Denies shortness of breath Respiratory: Denies cough Gastrointestinal: Denies abdominal pain, Denies diarrhea, Denies nausea, Denies vomiting Genitourinary: Denies dysuria, Denies hematuria Musculoskeletal: Denies myalgias Integumentary: Denies pruritus, Denies rash Neurological: Reports aphasia, Reports change in mentation, Reports change in speech, Denies numbness, Denies weakness Psychiatric: Denies anxiety, Denies depression Endocrine: Denies fatigue, Denies weight change Past Medical History Past Medical History: Coronary Artery Disease (CAD), Chest Pain / Angina, CVA/ TIA, Diabetes Mellitus, Eye Disorder, GERD/Reflux, Hyperlipidemia, Hypertension , Osteoarthritis (OA), Syncope, Thyroid Disorder Additional Past Medical History / Comment(s): 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 History of Any Multi-Drug Resistant Organisms: None Reported Past Surgical History: Bladder Surgery, Cholecystectomy, Coronary Bypass/CABG, Heart Catheterization, Hysterectomy Additional Past Surgical History / Comment(s): CABG-2007, Ccath 2007, multiple EGDs/dilations with biopsies, COLONOSCOPY. Cataracts, D&C, bladder suspension. Past Anesthesia/Blood Transfusion Reactions: Motion Sickness, Postoperative Nausea & Vomiting (PONV) Past Psychological History: No Psychological Hx Reported Additional Psychological History / Comment(s): pt lives at home with her bree. pt has a cleaning service come to home. has cane, w/c, walker, shower chair, glucometer, bp machine Smoking Status: Never smoker Past Alcohol Use History: None Reported Past Drug Use History: None Reported - Past Family History Father Family Medical History: Liver Disease Additional Family Medical History / Comment(s): Father of cirrhosis. He was a drinker. Mother Family Medical History: Unable to Obtain Additional Family Medical History / Comment(s): Pt states she does not know her mother's medical history. Son(s) Family Medical History: Unable to Obtain, Renal Disease Daughter(s) Family Medical History: Cancer Medications and Allergies Home Medications Medication Instructions Recorded Confirmed Type Benazepril HCl 20 mg PO BID 11/05/13 06/16/18 History Clopidogrel Bisulfate [Plavix] 75 mg PO DAILY 11/05/13 06/16/18 History glyBURIDE [Diabeta] 5 mg PO QAM 11/05/13 06/16/18 History Cholecalciferol [Vitamin D3] 3,000 unit PO DAILY 02/05/15 06/16/18 History Atorvastatin Calcium [Lipitor] 40 mg PO HS 02/18/16 06/16/18 History amLODIPine BESYLATE [Norvasc] 5 mg PO BID 02/18/16 06/16/18 History Levothyroxine Sodium [Synthroid] 50 mcg PO DAILY 01/07/17 06/16/18 History Meclizine HCl 12.5 mg PO Q8H PRN 01/07/17 06/16/18 History Famotidine [Pepcid] 20 mg PO DAILY 07/27/17 06/16/18 History Prazosin [Minipress] 1 mg PO BID 07/27/17 06/16/18 History Multivitamins, Thera [Multivitamin 1 each PO DAILY@1200 #30 tab 02/02/18 Rx (formulary)] Thiamine [Vitamin B-1] 100 mg PO DAILY@1200 #30 tab 02/02/18 06/16/18 Rx Cranberry Fruit Extract [Cranberry] 1,000 mg PO DAILY 05/04/18 06/16/18 History glyBURIDE [Diabeta] 2.5 mg PO HS 06/16/18 06/16/18 History metFORMIN HCL 500 mg PO BID 06/16/18 06/16/18 History sitaGLIPtin [Januvia] 50 mg PO DAILY 06/16/18 06/16/18 History Allergies Allergy/AdvReac Type Severity Reaction Status Date / Time aspirin Allergy Rash/Hives Verified 06/16/18 17:07 fish derived Allergy Rash/Hives Verified 06/16/18 17:07 Iodinated Contrast- Oral and Allergy Rash/Hives Verified 06/16/18 17:07 IV Dye [Iodinated Contrast Media - IV Dye] Iodine and Iodide Containing Allergy Rash/Hives Verified 06/16/18 17:07 Produc shellfish derived [Shellfish] Allergy Rash/Hives Verified 06/16/18 17:07 Physical Examination - Vital Signs Vital Signs: Vital Signs Temp Pulse Pulse Resp BP BP Pulse Ox 06/17/18 11:42 58 L 17 170/84 97 06/17/18 08:52 98 06/17/18 08:00 98 F 66 16 147/65 98 06/17/18 04:00 98.6 F 57 L 16 130/60 97 06/17/18 00:00 98.9 F 78 16 172/74 98 06/16/18 20:57 96.7 F L 60 16 194/81 99 06/16/18 20:27 98.2 F 62 18 159/62 98 06/16/18 19:20 57 L 18 158/59 96 06/16/18 19:10 56 L 17 158/59 98 06/16/18 19:00 58 L 19 158/59 95 06/16/18 18:50 59 L 19 158/59 97 06/16/18 18:40 58 L 20 158/59 98 06/16/18 18:30 61 20 158/59 97 06/16/18 18:20 62 20 158/59 99 06/16/18 18:10 59 L 18 158/59 100 06/16/18 18:00 63 17 158/59 97 06/16/18 17:50 63 11 L 158/59 99 06/16/18 17:40 59 L 18 141/53 06/16/18 17:30 61 12 141/53 06/16/18 17:20 141/53 06/16/18 17:10 18 141/53 06/16/18 17:00 60 18 141/53 06/16/18 16:50 61 19 141/53 06/16/18 16:40 62 18 141/53 06/16/18 16:30 62 18 141/53 06/16/18 16:26 97.9 F 65 18 141/53 100 Intake and Output 06/16/18 06/17/18 06/17/18 22:59 06:59 14:59 Other: # Voids 1 Weight 67.585 kg 67.1 kg - Constitutional General appearance: average body habitus, cooperative - EENT EENT: PERRL, mucous membranes moist - Respiratory Respiratory: lungs clear, normal breath sounds - Cardiovascular Cardiovascular: regular rate, normal S1, normal S2 Extremities: no peripheral edema bilaterally - Gastrointestinal Gastrointestinal: normoactive bowel sounds - Integumentary Integumentary: normal - Neurologic Cranial nerve examination: PERRL, EOMI, VFF, V1/V2/V3 grossly intact, face symmetric, intact gag reflex, intact corneal reflex, normal palatal elevation Speech examination: intact Sensorimotor examination: intact Motor examination - right side: 4/5: biceps, triceps, wrist flexion, wrist extension, casey saw operator, hip flexors, knee extensors, dorsiflexion, toe extension (EHL) , plantarflexion Motor examination - left side: 3/5: biceps, triceps, wrist flexion, wrist extension, casey saw operator, hip flexors, knee extensors, dorsiflexion, toe extension (EHL) , plantarflexion Detailed sensory examination: intact Reflex and gait examination: intact Reflexes: 1+: ankle, bicep, knee, tricep - Musculoskeletal Musculoskeletal: no pain - Psychiatric Psychiatric: mood/affect appropriate, cooperative Results - Laboratory Findings CBC and BMP: 06/16/18 18:10 06/16/18 18:10 Abnormal Lab Findings: Abnormal Labs 06/16/18 06/16/18 06/16/18 16:28 18:10 18:10 RBC 3.70 L Hgb 10.9 L Hct 33.8 L Chloride 110 H Carbon Dioxide 21 L BUN 25 H Glucose 189 H POC Glucose (mg/dL) 267 H 06/16/18 06/17/18 21:44 11:28 RBC Hgb Hct Chloride Carbon Dioxide BUN Glucose POC Glucose (mg/dL) 128 H 169 H Assessment and Plan (1) TIA (transient ischemic attack) Current Visit: Yes Status: Acute Code(s): G45.9 - TRANSIENT CEREBRAL ISCHEMIC ATTACK, UNSPECIFIED SNOMED Code(s): 295817620 (2) History of diabetes mellitus Current Visit: No Status: Acute Code(s): Z86.39 - PERSONAL HISTORY OF ENDO, NUTRITIONAL AND METABOLIC DISEASE SNOMED Code(s): 208159962 (3) Hypertension Current Visit: No Status: Acute Code(s): I10 - ESSENTIAL (PRIMARY) HYPERTENSION SNOMED Code(s): 42768315 (4) H/O: CVA (cerebrovascular accident) Current Visit: No Status: Chronic Code(s): Z86.73 - PRSNL HX OF TIA (TIA), AND CEREB INFRC W/O RESID DEFICITS SNOMED Code(s): 403097405 Plan: his patient is a 83-year-old right-bryson to hospital yesterday with symptoms of aphasia lasting 20 minutes in duration. Patient had global aphasia according to the granddaughter who was with her at the time yesterday. She was unable to communicate for over 20 minutes. EMS was called to the home and by the time they had arrived she was slowly coming around. She was admitted to hospital with possible TIA symptoms. She has been taking Plavix and aspirin on a regular basis given her previous history of stroke. She was sent for a computed tomography scan of the brain which revealed cerebral atrophy most notably in the temporal lobes bilaterally. No acute intracranial abnormality was noted. Patient was subsequently admitted to Hospital. Her neurological exam at this time reveals residual left-sided hemiparesthesias. Clinical history suggests possible recurrent TIA. We have recommended a complete stroke evaluation for the patient. We will obtain a carotid Doppler ultrasound for further assessment. The patient appears to be back to baseline level of function at this time. Granddaughter was at bedside and acknowledges that she is back to normal. Would recommend she be maintained on aspirin daily for secondary stroke prevention. Her overall prognosis at this time remains very guarded. Her case was discussed at length with the patient granddaughter who is at bedside. All of their questions were answered. We will continue close neurological follow-up the patient during this admission. Time with Patient: Greater than 30
[2018-06-17] MEDS: INSULIN ASPART 100 UNIT/ML 1 ML 10 ML VIAL SQ SCH (21:17)
[2018-06-18 06:11] LABS: Glucose,Whole Blood 179 mg/dL (75-99)
[2018-06-18] MEDS: LEVOTHYROXINE 50 MCG TAB PO SCH (06:40)
[2018-06-18] MEDS: INSULIN ASPART 100 UNIT/ML 1 ML 10 ML VIAL SQ SCH ×4 (06:40→20:11)
[2018-06-18] MEDS: glipiZIDE 10 MG TAB PO SCH (08:09)
[2018-06-18] MEDS: CLOPIDOGREL 75 MG TAB PO SCH (08:09)
[2018-06-18] MEDS: LISINOPRIL 20 MG TAB PO SCH ×2 (08:09→20:12)
[2018-06-18] MEDS: LINAGLIPTIN 5 MG TABLET PO SCH (08:09)
[2018-06-18] MEDS: PRAZOSIN 1 MG CAP PO SCH ×2 (08:09→20:11)
[2018-06-18] MEDS: FAMOTIDINE 20 MG TAB PO SCH (08:09)
--- NOTE | 2018-06-18 09:47 | US ---
EXAMINATION TYPE: US carotid duplex BILAT DATE OF EXAM: 06/18/2018 COMPARISON: US 01/22/2018 CLINICAL HISTORY: Patient with recent TIA symptoms.. EXAM MEASUREMENTS: RIGHT: Peak Systolic Velocity (PSV) cm/sec ----- Right CCA: 79.8 ----- Right ICA: 100.2 ----- Right ECA: 48.3 ICA/CCA ratio: 1.3 RIGHT: End Diastole cm/sec ----- Right CCA: 12.9 ----- Right ICA: 21.7 ----- Right ECA: 10.5 LEFT: Peak Systolic Velocity (PSV) cm/sec ----- Left CCA: 62.4 ----- Left ICA: 88.3 ----- Left ECA: 81.8 ICA/CCA ratio: 1.4 LEFT: End Diastole cm/sec ----- Left CCA: 9.3 ----- Left ICA: 13.2 ----- Left ECA: 6.7 VERTEBRALS (direction of flow): Right Vertebral: Antegrade Left Vertebral: Antegrade Rhythm: Normal Moderate/severe amount of plaque visualized bilaterally. No elevated velocities visualized Atheromatous plaquing in the right carotid bulb is evident. Significant flow-limiting stenosis based on velocities is not evident. Visually, this appears moderate. Correlate with the patient's clinical symptoms. Intimal thickening is present through the left carotid system. Milder plaquing is present on the left . This study is compared to 01/22/2018. Findings appear similar to the comparison study. IMPRESSION: 1. Atheromatous plaquing without significant flow-limiting stenosis. 2. Bilateral intimal thickening. 3. Visually, atheromatous plaquing on the right which is stable from January 2018 is present. Correlate with patient's clinical symptoms. Criteria for Assigning % of Stenosis / Diameter reduction (Estimation based on the indirect measurements of the internal carotid artery velocities (ICA PSV). 1. Normal (no stenosis)=ICA PSV < 125 cm/s: ratio < 2.0: ICA EDV<40 cm/s. 2. Less than 50% stenosis=ICA PSV < 125 cm/s: ratio < 2.0: ICA EDV<40 cm/s. 3. 50 to 69% stenosis=ICA PSV of 125 to 230 cm/s: ration 2.0 ? 4.0: ICA EDV 40-100 cm/s. 4. Greater than 70% stenosis to near occlusion= ICA PSV > 230 cm/s: ratio > 4.0: ICA EDV > 100 cm/s. 5. Near occlusion= ICA PSV velocities may be low or undetectable: variable ratio and ICA EDV. 6. Total occlusion=unable to detect flow.
[2018-06-18] MEDS: CHOLECALCIFEROL 1,000 UNIT TAB PO SCH (12:01)
[2018-06-18] MEDS: amLODIPine 5 MG TAB PO SCH ×2 (12:02→20:12)
[2018-06-18] MEDS: THIAMINE 100 MG TAB PO SCH (12:02)
[2018-06-18 12:14] LABS: Glucose,Whole Blood 120 mg/dL (75-99)
[2018-06-18 14:26] LABS: Hemoglobin A1C 7.3 % (4.0-6.0)
[2018-06-18 16:37] LABS: Glucose,Whole Blood 264 mg/dL (75-99)
--- NOTE | 2018-06-18 16:54 | P.PN ---
Subjective Progress Note Date: 06/18/18 Progress note being dictated for Dr. Ochoa. Interval history:83-year-old the pleasant female with history of a previous stroke with some residual weakness in the left side uses a walker came in after an episode of staring decreasing responsiveness no seizure-like activity but she was bit stiff no aura-like symptoms and no postictal confusion no tongue biting loss of bowel or bladder continence without any new focal weakness. Patient blood sugars were elevated at the time blood pressure was low at that time. Patient's stroke was 20 years ago. All the symptoms lasted for only a few minutes he denied any fever chills nausea vomiting. Her blood sugars are well controlled. With her home regimen. is already on antiplatelet therapy and a statin. 06/18/2018 evaluated by neurology, recommendations noted, neurology workup in progress. Carotid ultrasound reporting no significant hemodynamic stenosis. Generalized weakness. Denies lightheadedness, dizziness or focal deficits. REVIEW OF SYSTEMS: CONSTITUTIONAL: No fever, no malaise, no fatigue. HEENT: No recent visual problems or hearing problems. Denied any sore throat. CARDIOVASCULAR: No chest pain, orthopnea, PND, no palpitations, no syncope. PULMONARY: No shortness of breath, no cough, no hemoptysis. GASTROINTESTINAL: No diarrhea, no nausea, no vomiting, no abdominal pain. Normoactive bowel sounds. NEUROLOGICAL: As mentioned above HEMATOLOGICAL: Denies any bleeding or petechiae. GENITOURINARY: Denies any burning micturition, frequency, or urgency. MUSCULOSKELETAL/RHEUMATOLOGICAL: Denies any joint pain, swelling, or any muscle pain. ENDOCRINE: Denies any polyuria or polydipsia. The rest of the 14-point review of systems is negative. Active Medications Acetaminophen (Tylenol Tab) 650 mg PO Q6HR PRN PRN Reason: Mild Pain or Fever > 100.5 Last Admin: 06/18/18 00:30 Dose: 650 mg Amlodipine Besylate (Norvasc) 5 mg PO BID [facility] Last Admin: 06/18/18 12:02 Dose: 5 mg Atorvastatin Calcium (Lipitor) 40 mg PO HS [facility] Last Admin: 06/17/18 20:30 Dose: 40 mg Cholecalciferol (Vitamin D3) 3,000 unit PO 1200 [facility] Last Admin: 06/18/18 12:01 Dose: 3,000 unit Clopidogrel Bisulfate (Plavix) 75 mg PO DAILY [facility] Last Admin: 06/18/18 08:09 Dose: 75 mg Famotidine (Pepcid) 20 mg PO DAILY [facility] Last Admin: 06/18/18 08:09 Dose: 20 mg Glipizide (Glucotrol) 5 mg PO HS [facility] Last Admin: 06/17/18 20:30 Dose: 5 mg Glipizide (Glucotrol) 10 mg PO QAM [facility] Last Admin: 06/18/18 08:09 Dose: 10 mg Sodium Chloride (Saline 0.9%) 1,000 mls @ 20 mls/hr IV .Q24H [facility] Last Admin: 06/17/18 20:32 Dose: Not Given Insulin Aspart (Novolog) 0 unit SQ ACHS [facility]; Protocol Last Admin: 06/18/18 12:28 Dose: Not Given Levothyroxine Sodium (Synthroid) 50 mcg PO 0630 [facility] Last Admin: 06/18/18 06:40 Dose: 50 mcg Linagliptin (Tradjenta) 5 mg PO DAILY [facility] Last Admin: 06/18/18 08:09 Dose: 5 mg Lisinopril (Zestril) 20 mg PO BID [facility] Last Admin: 06/18/18 08:09 Dose: 20 mg Naloxone HCl (Narcan) 0.2 mg IV Q2M PRN PRN Reason: Opioid Reversal Prazosin HCl (Minipress) 1 mg PO BID [facility] Last Admin: 06/18/18 08:09 Dose: 1 mg Thiamine HCl (Vitamin B-1) 100 mg PO DAILY@1200 [facility] Last Admin: 06/18/18 12:02 Dose: 100 mg Objective - Vital Signs Vital signs: Vital Signs Temp 97.9 F 06/18/18 15:37 Pulse 67 06/18/18 15:37 Resp 16 06/18/18 15:37 BP 164/72 06/18/18 15:37 Pulse Ox 99 06/18/18 15:37 Intake & Output 06/17/18 06/18/18 06/18/18 18:59 06:59 18:59 Intake Total 700 600 Output Total 800 800 Balance -800 -100 600 Weight 67.4 kg Intake: Oral 700 600 Output: Urine 800 800 Other: # Voids 2 - Exam GENERAL: The patient is alert and oriented x3, not in any acute distress. HEENT: Pupils are round and equally reacting to light. EOMI. No scleral icterus. No conjunctival pallor. Normocephalic, atraumatic. CARDIOVASCULAR: S1 and S2 present. No murmurs, rubs, or gallops. PULMONARY: Chest is clear to auscultation, no wheezing or crackles. ABDOMEN: Soft, nontender, nondistended, normoactive bowel sounds. No palpable organomegaly. MUSCULOSKELETAL: No joint swelling or deformity. EXTREMITIES: No cyanosis, clubbing, or pedal edema. NEUROLOGICAL: Gross neurological examination did not reveal any new focal deficits. SKIN: No rashes. - Labs CBC & Chem 7: 06/16/18 18:10 06/16/18 18:10 Labs: Abnormal Lab Results - Last 24 Hours (Table) 06/16/18 06/17/18 06/18/18 Range/Units 18:10 20:17 05:58 POC Glucose (mg/dL) 239 H 179 H (75-99) mg/dL Hemoglobin A1c 7.3 H (4.0-6.0) % 06/18/18 06/18/18 Range/Units 12:09 16:03 POC Glucose (mg/dL) 120 H 264 H (75-99) mg/dL Hemoglobin A1c (4.0-6.0) % Assessment and Plan Assessment: -Possible TIA ,transient global amnesia -Type 2 diabetes mellitus -Hypertension This history of CVA with residual weakness about 46+/5 strength in left upper and lower extremity -Hypothyroidism -Hyperlipidemia -Coronary artery disease -Gastroesophageal reflux disease Plan: Continue current medication regime ,monitoring and symptomatic treatment. Maintain anitplatelet therapy, statin Echo, EEG, carotid pending. PT OT. F/ U labs ordered for am.Discharge planning in progress for tomorrow. The impression and plan of care has been dictated as directed. : I performed a history and examination of this patient, discussed the same with the dictator. I agree with the dictator's note ,documented as a scribe. Any additional findings or plans will be noted.
[2018-06-18] MEDS: metFORMIN 500 MG TAB PO SCH (17:23)
--- NOTE | 2018-06-18 18:40 | ECHOF ---
Referral Reason:tia MEASUREMENTS -------- HEIGHT: 152.4 cm WEIGHT: 67.1 kg BP: 134/65 RVIDd: 2.5 cm (< 3.3) IVSd: 1.5 cm (0.6 - 1.1) LVIDd: 3.6 cm (3.9 - 5.3) LVPWd: 1.6 cm (0.6 - 1.1) IVSs: 1.8 cm LVIDs: 3.3 cm LVPWs: 1.5 cm LA Diam: 4.6 cm (2.7 - 3.8) Ao Diam: 3.1 cm (2.0 - 3.7) AV Cusp: 1.8 cm (1.5 - 2.6) LA Diam: 4.2 cm (2.7 - 3.8) MV EXCURSION: 15.965 mm (> 18.000) MV EF SLOPE: 24 mm/s (70 - 150) EPSS: 0.5 cm MV E Simeon: 0.88 m/s MV DecT: 413 ms MV A Simeon: 1.30 m/s MV E/A Ratio: 0.68 RAP: 5.00 mmHg RVSP: 16.07 mmHg FINDINGS -------- Sinus rhythm. This was a techncally difficult study with suboptimal views, , Lumason utilized for enhancement of im ages. The left ventricular size is normal. There is moderate concentric left ventricular hypertrophy. O verall left ventricular systolic function is normal with, an EF between 55 - 60 %. The right ventricle is normal in size. The left atrium is moderately dilated. The right atrial size is normal. 5.0mg OF Lumason UTLIZED: 2 OR MORE WALL SEGMENTS NOT VISUALIZED. There is mild aortic valve sclerosis. There is no evidence of aortic regurgitation. Mild mitral annular calcification present. Mild mitral regurgitation is present. Mild tricuspid regurgitation present. There is no evidence of pulmonary hypertension. The right v entricular systolic pressure, as measured by Doppler, is 16.07mmHg. The pulmonic valve was not well visualized. There is no pulmonic regurgitation present. The aortic root size is normal. There is no pericardial effusion. CONCLUSIONS -------- 1. Sinus rhythm. 2. This was a techncally difficult study with suboptimal views, , Lumason utilized for enhancement of images. 3. The left ventricular size is normal. 4. There is moderate concentric left ventricular hypertrophy. 5. Overall left ventricular systolic function is normal with, an EF between 55 - 60 %. 6. The left atrium is moderately dilated. 7. 5.0mg OF Lumason UTLIZED: 2 OR MORE WALL SEGMENTS NOT VISUALIZED. 8. There is mild aortic valve sclerosis. 9. Mild mitral annular calcification present. 10. Mild mitral regurgitation is present. 11. Mild tricuspid regurgitation present. 12. There is no evidence of pulmonary hypertension. 13. The pulmonic valve was not well visualized. 14. There is no pulmonic regurgitation present. 15. The aortic root size is normal. 16. There is no pericardial effusion. PRODUCTION CELL LEADER: Paulette Garza RDCS
[2018-06-18 20:08] LABS: Glucose,Whole Blood 117 mg/dL (75-99)
[2018-06-18] MEDS: ATORVASTATIN 40 MG TAB PO SCH (20:11)
[2018-06-18] MEDS: glipiZIDE 5 MG TAB PO SCH (20:12)
[2018-06-18] MEDS: SODIUM CHLORIDE 0.9% 1,000 ML IV SCH (20:12)
--- NOTE | 2018-06-19 00:01 | P.PN ---
Subjective Progress Note Date: 06/18/18 This is a Neurology follow-up for this patient with recent episode of aphasia and possible TIA. The patient seems to be doing somewhat better today. She underwent carotid Doppler ultrasound which came back negative for any significant carotid artery stenosis. She underwent routine EEG today which will be reviewed. She has been fluent in terms of her speech with no further episodes of aphasia reported by the patient. She is being treated for underlying diabetes mellitus and hypertension. Continue further evaluation by physical therapy as well. Hopefully the patient may be considered for discharge home possibly tomorrow if she continues to show improvement. Objective - Vital Signs Vital signs: Vital Signs Temp 97.9 F 06/18/18 15:37 Pulse 67 06/18/18 15:37 Resp 16 06/18/18 15:37 BP 164/72 06/18/18 15:37 Pulse Ox 99 06/18/18 15:37 Intake & Output 06/17/18 06/18/18 06/18/18 18:59 06:59 18:59 Intake Total 700 840 Output Total 800 800 Balance -800 -100 840 Weight 67.4 kg Intake: Oral 700 840 Output: Urine 800 800 Other: # Voids 2 - Exam Physical examination: PHYSICAL EXAMINATION: Patient is resting comfortably in bed. VITAL SIGNS: Blood pressure is [138/88]. Heart rate is [60]. Respiration is [17] . Temperature is [97.8]. HEENT: Head is atraumatic, neck is supple, there were no carotid bruits. CHEST: Lungs are clear to auscultation and percussion. CARDIAC: S1, S2 normal rate and rhythm. There is no murmur. ABDOMEN: Soft and nontender. Bowel sounds are present. EXTREMITIES: There is no pedal edema. Peripheral pulses are present. Neurological examination: Patient's neurological examination is unchanged from yesterday. She has had no further episodes of aphasia since admission. - Labs CBC & Chem 7: 06/16/18 18:10 06/16/18 18:10 Labs: Abnormal Lab Results - Last 24 Hours (Table) 06/16/18 06/17/18 06/18/18 Range/Units 18:10 20:17 05:58 POC Glucose (mg/dL) 239 H 179 H (75-99) mg/dL Hemoglobin A1c 7.3 H (4.0-6.0) % 06/18/18 06/18/18 Range/Units 12:09 16:03 POC Glucose (mg/dL) 120 H 264 H (75-99) mg/dL Hemoglobin A1c (4.0-6.0) % Assessment and Plan (1) TIA (transient ischemic attack) Current Visit: Yes Status: Acute Code(s): G45.9 - TRANSIENT CEREBRAL ISCHEMIC ATTACK, UNSPECIFIED SNOMED Code(s): 982377489 (2) History of diabetes mellitus Current Visit: No Status: Acute Code(s): Z86.39 - PERSONAL HISTORY OF ENDO, NUTRITIONAL AND METABOLIC DISEASE SNOMED Code(s): 187364086 (3) Hypertension Current Visit: No Status: Acute Code(s): I10 - ESSENTIAL (PRIMARY) HYPERTENSION SNOMED Code(s): 49612997 (4) H/O: CVA (cerebrovascular accident) Current Visit: No Status: Chronic Code(s): Z86.73 - PRSNL HX OF TIA (TIA), AND CEREB INFRC W/O RESID DEFICITS SNOMED Code(s): 724663214 Plan: his patient is a 83-year-old right-bryson to hospital yesterday with symptoms of aphasia lasting 20 minutes in duration. Patient had global aphasia according to the granddaughter who was with her at the time yesterday. She was unable to communicate for over 20 minutes. EMS was called to the home and by the time they had arrived she was slowly coming around. She was admitted to hospital with possible TIA symptoms. She has been taking Plavix and aspirin on a regular basis given her previous history of stroke. She was sent for a computed tomography scan of the brain which revealed cerebral atrophy most notably in the temporal lobes bilaterally. No acute intracranial abnormality was noted. Patient was subsequently admitted to Hospital. Her neurological exam at this time reveals residual left-sided hemiparesthesias. Clinical history suggests possible recurrent TIA. We have recommended a complete stroke evaluation for the patient. We will obtain a carotid Doppler ultrasound for further assessment. The patient appears to be back to baseline level of function at this time. Granddaughter was at bedside and acknowledges that she is back to normal. Would recommend she be maintained on aspirin daily for secondary stroke prevention. Her overall prognosis at this time remains very guarded. The patient underwent carotid Doppler ultrasound today which came back negative for any significant carotid artery stenosis. She also underwent echocardiogram which revealed her ejection fraction to be 5560 percent. We will review her EEG which was performed today. If she continues to show improvement she may be considered for discharge home tomorrow. We will continue close neurological follow-up the patient during this admission.
[2018-06-19 05:25] LABS: Glucose,Whole Blood 127 mg/dL (75-99)
[2018-06-19] MEDS: INSULIN ASPART 100 UNIT/ML 1 ML 10 ML VIAL SQ SCH ×2 (05:34→12:36)
[2018-06-19] MEDS: metFORMIN 500 MG TAB PO SCH (07:01)
[2018-06-19] MEDS: LEVOTHYROXINE 50 MCG TAB PO SCH (07:01)
[2018-06-19 08:13] LABS: Basophils % (A) 0 %; Eosinophils # (A) 0.2 k/uL (0-0.7); Eosinophils % (A) 3 %; HCT 33.6 % (34.0-46.0); HGB 11.1 gm/dL (11.4-16.0); Lymphocytes % (A) 16 %; MCH 29.7 pg (25.0-35.0); MCHC 33.2 g/dL (31.0-37.0); MCV 89.5 fL (80.0-100.0); Mean Platelet Volume 7.6; Monocytes # (A) 0.3 k/uL (0-1.0); Monocytes % (A) 5 %; Neutrophils # (A) 4.4 k/uL (1.3-7.7); Neutrophils % (A) 75 %; Platelet Count 178 k/uL (150-450); RBC 3.75 m/uL (3.80-5.40); RDW 13.9 % (11.5-15.5); WBC 5.8 k/uL (3.8-10.6)
[2018-06-19 08:27] LABS: Calcium 9.6 mg/dL (8.4-10.2); Potassium 4.8 mmol/L (3.5-5.1)
[2018-06-19] MEDS: LINAGLIPTIN 5 MG TABLET PO SCH (09:09)
[2018-06-19] MEDS: FAMOTIDINE 20 MG TAB PO SCH (09:09)
[2018-06-19] MEDS: CLOPIDOGREL 75 MG TAB PO SCH (09:09)
[2018-06-19] MEDS: glipiZIDE 10 MG TAB PO SCH (09:09)
[2018-06-19] MEDS: PRAZOSIN 1 MG CAP PO SCH (09:10)
[2018-06-19] MEDS: amLODIPine 5 MG TAB PO SCH (09:10)
[2018-06-19] MEDS: CHOLECALCIFEROL 1,000 UNIT TAB PO SCH (09:10)
[2018-06-19] MEDS: THIAMINE 100 MG TAB PO SCH (09:10)
[2018-06-19] MEDS: LISINOPRIL 20 MG TAB PO SCH (09:13)
[2018-06-19 10:29] VITALS: RESP 20; TEMP 98.1
[2018-06-19 11:56] LABS: Glucose,Whole Blood 139 mg/dL (75-99)
[2018-06-19] MEDS ORDERED: MULTIVITAMINS, THERA 1 EACH TAB PO SCH (12:00)
[2018-06-19 12:38] VITALS: BP 141/76; PULSE 68
--- NOTE | 2018-06-19 18:43 | EEG ---
ELECTROENCEPHALOGRAM REPORT DATE OF EE06/18/2018 ELECTROENCEPHALOGRAPHIC EXAMINATION REPORT: INDICATION FOR EXAMINATION: This patient is an 83-year-old female, admitted with episode of global aphasia and possible TIA versus stroke. AGE: [age]. EEG FINDINGS: A routine 21-channel awake digital EEG recording was accomplished utilizing the [employer] international system with bipolar and referential montages. The background activity in the most alert resting state consists of a low to medium amplitude, fairly well developed and well sustained 6-7 Hz activity over the posterior head region. This posterior rhythm attenuates to eye opening. There is a small amount of low amplitude 18-20 Hz beta activity seen maximally over the anterior head regions. Muscle and movement artifact was observed on a few occasions during the tracing. Hyperventilation was not performed. Photic stimulation at flash frequencies of 2-30 Hz produced a good symmetrical occipital driving response. No epileptiform discharges were seen. IMPRESSION: This EEG is mildly abnormal in a diffuse fashion due to slight slowing of the EEG background. The EEG failed to reveal any focal, lateralized, or epileptiform abnormalities. Clinical correlation is recommended. MMODL / IJN: [id number] /
--- NOTE | 2018-06-20 01:36 | DS ---
DISCHARGE SUMMARY FINAL DIAGNOSES: 1. Acute transient ischemic attack with transient global amnesia. 2. Diabetes type 2. 3. Hypertension. 4. History of cerebrovascular accident with residual weakness. 5. Hypothyroidism. 6. Hyperlipidemia. 7. Coronary artery disease. 8. Gastroesophageal reflux disease. DISCHARGE DISPOSITION: The patient is being discharged in stable condition with guarded prognosis. HISTORY OF PRESENT ILLNESS: This 83 -year-old woman with a past history of multiple medical problems, admitted with TIA/transient global amnesia, treated symptomatically. Neurology saw the patient. Neurovascular workup was negative. The patient improved significantly and the patient is being discharged in stable condition with guarded prognosis with the following advice and medications: On exam, vital signs stable. Cardiovascular: S1, S2 muffled. Respiratory: Breath sounds diminished in the bases. Abdomen soft. Nervous system: No focal deficits. The carotid ultrasound showed erythematous plaques also. DISCHARGE ADVICE AND MEDICATIONS: 1. Discharge diet is cardiac diet. 2. Activity limited until followup. 3. Follow up with Dr. Ramirez in 2-3 days. 4. Follow with Neurology as recommended. MEDICATIONS ARE: 1. Norvasc 5 mg p.o. b.i.d. 2. Lipitor 40 mg q.h.s. 3. Benazepril 20 mg b.i.d. 4. Vitamin D3 3000 daily. 5. Plavix 75 mg daily. 6. Cranberry daily. 7. Pepcid 20 mg daily. 8. Synthroid 50 mcg daily. 9. Meclizine 12.5 mg q.8h p.r.n. 10.Metformin 500 mg p.o. b.i.d. 11.Minipress 1 mg p.o. b.i.d. 12.Januvia 50 mg p.o. daily. 13.Glucotrol 10 mg q.a.m. and 5 mg q.h.s. 14.Multivitamins 1 p.o. daily. 15.Thiamine 100 mg daily. MMODL / IJN: [id number] /
== END 2018-06-19 16:20 | disposition home or self-care (01) ==
LOC: EC 16:17 → INTOOBSV 19:56 → 3SCARD 19:56
PROVIDERS: ADMIT Internal Medicine; ATTEND Internal Medicine
DX: G45.9 Transient cerebral ischemic attack, unspecified (principal); G45.4 Transient global amnesia; I69.354 Hemiplegia and hemiparesis following cerebral infarction affecting left non-dominant side; I10 Essential (primary) hypertension; E11.65 Type 2 diabetes mellitus with hyperglycemia; E11.42 Type 2 diabetes mellitus with diabetic polyneuropathy; E11.319 Type 2 diabetes mellitus with unspecified diabetic retinopathy without macular edema; Z79.890 Hormone replacement therapy; E03.9 Hypothyroidism, unspecified; H54.61 Unqualified visual loss, right eye, normal vision left eye; K21.9 Gastro-esophageal reflux disease without esophagitis; E78.5 Hyperlipidemia, unspecified; I25.10 Atherosclerotic heart disease of native coronary artery without angina pectoris; E66.9 Obesity, unspecified; Z68.29 Body mass index [BMI] 29.0-29.9, adult; G89.4 Chronic pain syndrome; M19.90 Unspecified osteoarthritis, unspecified site; G56.03 Carpal tunnel syndrome, bilateral upper limbs; K22.2 Esophageal obstruction; K44.9 Diaphragmatic hernia without obstruction or gangrene; D64.9 Anemia, unspecified; Z79.02 Long term (current) use of antithrombotics/antiplatelets; Z79.84 Long term (current) use of oral hypoglycemic drugs; Z79.899 Other long term (current) drug therapy; Z88.6 Allergy status to analgesic agent; Z91.041 Radiographic dye allergy status; Z91.013 Allergy to seafood; Z88.8 Allergy status to other drugs, medicaments and biological substances; Z91.018 Allergy to other foods; Z91.048 Other nonmedicinal substance allergy status; Z90.49 Acquired absence of other specified parts of digestive tract; Z95.1 Presence of aortocoronary bypass graft; Z90.710 Acquired absence of both cervix and uterus; Z87.440 Personal history of urinary (tract) infections; Z91.81 History of falling; Z83.79 Family history of other diseases of the digestive system; Z84.1 Family history of disorders of kidney and ureter; Z80.9 Family history of malignant neoplasm, unspecified
CPT/HCPCS: 99285; 36415; 94760 ×2; 95819; 93005; 97162; 97166; 80053; 80048; 82550; 82553; 84484; 85025 ×2; 85610; 85730; 83036; 71046; 93880; 70450; G0378 ×4; C8929; Q9950; 93306

== ENCOUNTER → 2019-01-16 | Outpatient (CLI) | payer MEDICARE, OTHER ==
--- NOTE | 2019-01-17 07:37 | BD ---
EXAMINATION TYPE: Axial Bone Density DATE OF EXAM: 01/16/2019 COMPARISON: 2000 CLINICAL HISTORY: M81.0 Height: 60 Weight: 152.8 FRAX RISK QUESTIONS: Alcohol (3 or more units per day): no Family History (Parent hip fracture): no Glucocorticoids (More than 3mos): no (Ex: prednisone, prednisolone, methylprednisolone, dexamethasone, and hydrocortisone). History of Fracture in Adulthood: no Secondary Osteoporosis: 1. Type 1 Diabetes: no 2. Hyperthyroidism: no 3. Menopause before 45: yes 4. Malnutrition: no 5. Chronic liver disease: no Rheumatoid Arthritis: no Current Tobacco Use: no RISK FACTORS HISTORY OF: Family History of Osteoporosis: no Active: no Diet low in dairy products/other sources of calcium: yes Postmenopausal woman: age 37 Frequent falls: yes uses a walker MEDICATIONS: diabetic meds, cholesterol meds, blood thinner meds Additional History: EXAM MEASUREMENTS: Bone mineral densitometry was performed using the [employer] System. Bone mineral density as measured about the Lumbar spine is: ----- L1-L4(G/cm2): 1.288 T Score Values are as follows: ----- L2: 0.8 ----- L3: 1.2 ----- L4: 0.7 ----- L1-L4: 0.9 Bone mineral density has: increased 10.2 % since study of: 08.30.2000 Bone mineral density about the R hip (g/cm2): 0.890 Bone mineral density about the L hip (g/cm2): 0.885 T Score values are as follows: -----R Neck: -1.1 -----L Neck: -1.1 -----R Total: 0.2 -----L Total: 0.2 Bone mineral density has: decreased -3.6 % since study of: 08.30.2000 IMPRESSION: Osteopenia (T Score between -2.5 and -1). There is slightly increased risk of fracture and the patient may be considered for treatment. Re-Screen 2-5 years. NOTE: T-SCORE=SD OF THE YOUNG ADULT MEAN.
== END | disposition home or self-care (01) ==
LOC: RADBDWWP 15:57
PROVIDERS: ATTEND Family Medicine
DX: Z13.820 Encounter for screening for osteoporosis (principal); M85.80 Other specified disorders of bone density and structure, unspecified site
CPT/HCPCS: 77080

== ENCOUNTER 2019-01-20 15:07 | Inpatient (IN) | payer MEDICARE, OTHER ==
[2019-01-20] MEDS ORDERED: SODIUM CHLORIDE 0.9% 500 ML 500 ML IV STA (15:25)
--- NOTE | 2019-01-20 15:35 | ED ---
Altered Mental Status HPI - General Chief Complaint: Altered Mental Status Stated Complaint: Syncope Time Seen by Provider: 01/20/19 15:25 Source: patient, family, EMS Mode of arrival: EMS Limitations: no limitations - History of Present Illness Initial Comments: Patient is an 83-year-old female with a history of diabetes, previous stroke, COPD presents with a chief complaint of altered mental status. She is here with her daughter who states that they were at a family outing when symptoms started about one hour ago. It was reported that the patient was having trouble communicating with family members. She was slow to answer questions, and seemed to be struggling to articulate. The patient states that she feels as though she is choking. There is some obvious loss of fluency in her speech. His last stroke was in the 80s, she is blind in the right eye. - Related Data Home Medications Medication Instructions Recorded Confirmed Benazepril HCl 20 mg PO BID 11/05/13 01/20/19 Clopidogrel Bisulfate [Plavix] 75 mg PO DAILY 11/05/13 01/20/19 Cholecalciferol [Vitamin D3 (25 3,000 unit PO DAILY 02/05/15 01/20/19 Mcg = 1000 Iu)] Atorvastatin Calcium [Lipitor] 40 mg PO HS 02/18/16 01/20/19 amLODIPine BESYLATE [Norvasc] 5 mg PO BID 02/18/16 01/20/19 Levothyroxine Sodium [Synthroid] 50 mcg PO DAILY 01/07/17 01/20/19 Meclizine HCl 12.5 mg PO Q8H PRN 01/07/17 01/20/19 Famotidine [Pepcid] 20 mg PO DAILY 07/27/17 01/20/19 Prazosin [Minipress] 1 mg PO BID 07/27/17 01/20/19 Cranberry Fruit Extract [Cranberry] 1,000 mg PO DAILY 05/04/18 01/20/19 metFORMIN HCL 500 mg PO BID 06/16/18 01/20/19 sitaGLIPtin [Januvia] 50 mg PO DAILY 06/16/18 01/20/19 Previous Rx's Medication Instructions Recorded Multivitamins, Thera [Multivitamin 1 each PO DAILY@1200 #30 tab 02/02/18 (formulary)] Thiamine [Vitamin B-1] 100 mg PO DAILY@1200 #30 tab 02/02/18 glipiZIDE [Glucotrol] 5 mg PO HS #30 tab 06/19/18 glipiZIDE [Glucotrol] 10 mg PO QAM #30 tab 06/19/18 Allergies Allergy/AdvReac Type Severity Reaction Status Date / Time aspirin Allergy Rash/Hives Verified 01/20/19 15:40 fish derived Allergy Rash/Hives Verified 01/20/19 15:40 Iodinated Contrast- Oral and Allergy Rash/Hives Verified 01/20/19 15:40 IV Dye [Iodinated Contrast Media - IV Dye] Iodine and Iodide Containing Allergy Rash/Hives Verified 01/20/19 15:40 Produc shellfish derived [Shellfish] Allergy Rash/Hives Verified 01/20/19 15:40 Review of Systems ROS Statement: Those systems with pertinent positive or pertinent negative responses have been documented in the HPI. ROS Other: All systems not noted in ROS Statement are negative. Neurological: Reports: confusion Past Medical History Past Medical History: Coronary Artery Disease (CAD), Chest Pain / Angina, CVA/TIA, Diabetes Mellitus, Eye Disorder, GERD/Reflux, Hyperlipidemia, Hypertension, Osteoarthritis (OA), Syncope, Thyroid Disorder Additional Past Medical History / Comment(s): CVA-1996 arm and L leg weakness, NIDDM type II, dysphagia, esophageal strictures with dilations, hiatal hernia, chronic pain syndrome (generalized pain), hypothyroidism, peripheral neuropathy, bilateral hand numbness and tingling, bilateral carpal tunnel syndrome, anemia, Diabetic Retinopathy, blind in R eye, UTIs, urinatry leakage, sinus problems., uses walker.pt stated recent fall/had scalp laceration and st aples removed 01-29-18. History of Any Multi-Drug Resistant Organisms: None Reported Past Surgical History: Bladder Surgery, Cholecystectomy, Coronary Bypass/CABG, Heart Catheterization, Hysterectomy Additional Past Surgical History / Comment(s): CABG-2007, Ccath 2007, multiple EGDs/dilations with biopsies, COLONOSCOPY. Cataracts, D&C, bladder suspension. Past Anesthesia/Blood Transfusion Reactions: Motion Sickness, Postoperative Nausea & Vomiting (PONV) Past Psychological History: No Psychological Hx Reported Smoking Status: Never smoker Past Alcohol Use History: None Reported Past Drug Use History: None Reported - Past Family History Father Family Medical History: Liver Disease Additional Family Medical History / Comment(s): Father of cirrhosis. He was a drinker. Mother Family Medical History: Unable to Obtain Additional Family Medical History / Comment(s): Pt states she does not know her mother's medical history. Son(s) Family Medical History: Unable to Obtain, Renal Disease Daughter(s) Family Medical History: Cancer General Exam Limitations: altered mental status General appearance: alert, anxious Head exam: Present: atraumatic, normocephalic Eye exam: Present: normal appearance, other (patient blind in the right eye ) ENT exam: Present: normal exam Neck exam: Present: normal inspection Respiratory exam: Present: normal lung sounds bilaterally. Absent: respiratory distress, wheezes Cardiovascular Exam: Present: regular rate, normal rhythm GI/Abdominal exam: Present: soft. Absent: distended, tenderness Rectal exam: Present: deferred External exam: Present: normal external exam Extremities exam: Present: normal inspection Back exam: Present: normal inspection Neurological exam: Present: alert, other (patient has obvious loss of speech fluency, she has difficulty with left lateral gaze, she states she is unable to lift her lower extremities. ). Absent: CN II-XII intact Psychiatric exam: Present: anxious Skin exam: Present: warm, dry, intact Course Vital Signs 01/20/19 01/20/19 01/20/19 15:12 15:25 15:40 Temperature 98.1 F Pulse Rate 66 63 63 Respiratory 18 18 18 Rate Blood Pressure 143/59 142/50 128/66 O2 Sat by Pulse 96 100 100 Oximetry 01/20/19 01/20/19 01/20/19 15:55 16:10 16:40 Temperature Pulse Rate 61 56 L 56 L Respiratory 18 18 18 Rate Blood Pressure 151/58 132/82 173/74 O2 Sat by Pulse 99 100 100 Oximetry Medical Decision Making - Medical Decision Making Patient presents with chief complaint strokelike symptoms. Initial evaluation, vital signs are stable, patient is in mild distress and appears anxious. initial evaluation shows obvious loss of verbal fluency, code stroke activated. EKG at 1527 shows NSR with a rate of 65 BPM, segments are within normal limits. no acute signs of ischemia. Patient taken to CT scan, will only perform CT w/o as patient has a contrast allergy. 3:43 PM Case discused with Dr. Menchaca, Stroke doctor, who states that the patient sounds appropriate for tPA. we will set up telestroke computer for further decision making. NIHSS is [address] initially[address] 3:[address] Menchaca evaluated the patient via telestroke. the patients symptoms are better than initial evaluation. fluency is returning, gaze has returned to normal. tPA not recommended at this time. Dr. Menchaca states the patient is appropriate for admission at this facility. 4:42 PM lab evaluation is unremarkable. patient given lipitor and plavix per Neuro recs. Case discussed with Dr. Nagel who accepts admission. Neurology on consult. patient remains stable in the ED. - Lab Data Result diagrams: 01/20/19 15:39 01/20/19 15:39 Lab Results 01/20/19 01/20/19 01/20/19 Range/Units 15:28 15:39 15:39 WBC 5.8 (3.8-10.6) k/uL RBC 3.74 L (3.80-5.40) m/uL Hgb 10.9 L (11.4-16.0) gm/dL Hct 32.9 L (34.0-46.0) % MCV 88.0 (80.0-100.0) fL MCH 29.1 (25.0-35.0) pg MCHC 33.1 (31.0-37.0) g/dL RDW 13.7 (11.5-15.5) % Plt Count 193 (150-450) k/uL Neutrophils % 66 % Lymphocytes % 23 % Monocytes % 7 % Eosinophils % 2 % Basophils % 0 % Neutrophils # 3.8 (1.3-7.7) k/uL Lymphocytes # 1.3 (1.0-4.8) k/uL Monocytes # 0.4 (0-1.0) k/uL Eosinophils # 0.1 (0-0.7) k/uL Basophils # 0.0 (0-0.2) k/uL PT (9.0-12.0) sec INR (<1.2) APTT (22.0-30.0) sec Sodium 141 (137-145) mmol/L Potassium 4.3 (3.5-5.1) mmol/L Chloride 111 H (98-107) mmol/L Carbon Dioxide 20 L (22-30) mmol/L Anion Gap 10 mmol/L BUN 28 H (7-17) mg/dL Creatinine 1.02 (0.52-1.04) mg/dL Est GFR (CKD-EPI)AfAm 60 (>60 ml/min/1.73 sqM) Est GFR (CKD-EPI)NonAf 52 (>60 ml/min/1.73 sqM) Glucose 121 H (74-99) mg/dL POC Glucose (mg/dL) 119 H (75-99) mg/dL POC Glu Casing In Line Feeder ID October Calcium 9.0 (8.4-10.2) mg/dL Total Bilirubin 0.4 (0.2-1.3) mg/dL AST 18 (14-36) U/L ALT 15 (9-52) U/L Alkaline Phosphatase 58 (38-126) U/L Total Creatine Kinase (30-135) U/L CK-MB (CK-2) (0.0-2.4) ng/mL CK-MB (CK-2) Rel Index Troponin I (0.000-0.034) ng/mL Total Protein 6.5 (6.3-8.2) g/dL Albumin 3.7 (3.5-5.0) g/dL 01/20/19 01/20/19 Range/Units 15:39 15:39 WBC (3.8-10.6) k/uL RBC (3.80-5.40) m/uL Hgb (11.4-16.0) gm/dL Hct (34.0-46.0) % MCV (80.0-100.0) fL MCH (25.0-35.0) pg MCHC (31.0-37.0) g/dL RDW (11.5-15.5) % Plt Count (150-450) k/uL Neutrophils % % Lymphocytes % % Monocytes % % Eosinophils % % Basophils % % Neutrophils # (1.3-7.7) k/uL Lymphocytes # (1.0-4.8) k/uL Monocytes # (0-1.0) k/uL Eosinophils # (0-0.7) k/uL Basophils # (0-0.2) k/uL PT 10.7 (9.0-12.0) sec INR 1.0 (<1.2) APTT 23.8 (22.0-30.0) sec Sodium (137-145) mmol/L Potassium (3.5-5.1) mmol/L Chloride (98-107) mmol/L Carbon Dioxide (22-30) mmol/L Anion Gap mmol/L BUN (7-17) mg/dL Creatinine (0.52-1.04) mg/dL Est GFR (CKD-EPI)AfAm (>60 ml/min/1.73 sqM) Est GFR (CKD-EPI)NonAf (>60 ml/min/1.73 sqM) Glucose (74-99) mg/dL POC Glucose (mg/dL) (75-99) mg/dL POC Glu Casing In Line Feeder ID Calcium (8.4-10.2) mg/dL Total Bilirubin (0.2-1.3) mg/dL AST (14-36) U/L ALT (9-52) U/L Alkaline Phosphatase (38-126) U/L Total Creatine Kinase 64 (30-135) U/L CK-MB (CK-2) 1.5 (0.0-2.4) ng/mL CK-MB (CK-2) Rel Index 2.3 Troponin I <0.012 (0.000-0.034) ng/mL Total Protein (6.3-8.2) g/dL Albumin (3.5-5.0) g/dL Disposition Clinical Impression: TIA (transient ischemic attack) Disposition: ADMITTED IP TO THIS HOSP Condition: Good Is patient prescribed a controlled substance at d/c from ED?: No Referrals: Esvin Ramirez DO [Primary Care Provider] - 1-2 days Decision to Admit Reason: Admit from EC - Out of Hospital Transfer - Req. Specs Out of Hospital Transfer - Requested Specifics: Telemetry Unit
[2019-01-20 15:41] LABS: Glucose,Whole Blood 119 mg/dL (75-99)
[2019-01-20 15:42] LABS: Basophils % (A) 0 %; Eosinophils # (A) 0.1 k/uL (0-0.7); Eosinophils % (A) 2 %; HCT 32.9 % (34.0-46.0); HGB 10.9 gm/dL (11.4-16.0); Lymphocytes # (A) 1.3 k/uL (1.0-4.8); Lymphocytes % (A) 23 %; MCH 29.1 pg (25.0-35.0); MCHC 33.1 g/dL (31.0-37.0); Mean Platelet Volume 7.7; Monocytes # (A) 0.4 k/uL (0-1.0); Monocytes % (A) 7 %; Neutrophils # (A) 3.8 k/uL (1.3-7.7); Neutrophils % (A) 66 %; Platelet Count 193 k/uL (150-450); RBC 3.74 m/uL (3.80-5.40); RDW 13.7 % (11.5-15.5); WBC 5.8 k/uL (3.8-10.6)
[2019-01-20 15:51] LABS: Albumin 3.7 g/dL (3.5-5.0); Potassium 4.3 mmol/L (3.5-5.1); Total Bilirubin 0.4 mg/dL (0.2-1.3); Total Protein 6.5 g/dL (6.3-8.2)
[2019-01-20 15:54] LABS: Partial Thromboplastin Time 23.8 sec (22.0-30.0); Prothrombin Time 10.7 sec (9.0-12.0)
[2019-01-20 16:00] LABS: Creatine Kinase 64 U/L (30-135)
--- NOTE | 2019-01-20 16:11 | CT ---
EXAMINATION TYPE: CT brain wo con for TPA DATE OF EXAM: 01/20/2019 HISTORY: Neuro deficits. CT brain June 16, 2018. CT DLP: 1099.4 mGycm. Automated Exposure Control for Dose Reduction was Utilized. TECHNIQUE: CT scan of the head is performed without contrast. COMPARISON: Prior CT June 16, 2018. FINDINGS: There is no acute intracranial hemorrhage or midline shift identified. There is diffuse v entricular and sulcal prominence consistent with diffuse age-related cerebral atrophy. Bilateral basa l ganglia calcifications are redemonstrated. Low attenuation periventricular white matter is again se en. Small calcified right globe redemonstrated. Scleral calcification left globe again seen. IMPRESSION: No acute intracranial hemorrhage or midline shift. There is mild to moderate diffuse ag e-related cerebral atrophy and mild chronic small vessel ischemic change redemonstrated. No signific ant change from prior CT
[2019-01-20 16:12] LABS: Creatine Kinase MB 1.5 ng/mL (0.0-2.4); Troponin I <0.012 ng/mL (0.000-0.034)
[2019-01-20] MEDS ORDERED: FAMOTIDINE 20 MG/2 ML VIAL IV STA (16:41)
[2019-01-20] MEDS ORDERED: MAG HYDROX/AL HYDROX/SIMETH 30 ML CUP PO PRN (16:41)
[2019-01-20] MEDS ORDERED: ATORVASTATIN 40 MG TAB PO STA (16:41)
[2019-01-20] MEDS ORDERED: CLOPIDOGREL 75 MG TAB PO STA (16:41)
--- NOTE | 2019-01-20 16:46 | XR ---
EXAMINATION TYPE: XR chest 2V DATE OF EXAM: 01/20/2019 COMPARISON: Chest x-ray June 16, 2018. HISTORY: Syncope and weakness. TECHNIQUE: Frontal and lateral views of the chest are obtained. FINDINGS: Post-CABG changes with mediastinal clips and sternal wires is redemonstrated. There is chr onic parenchymal change without suspicious new focal air space opacity, pleural effusion, or pneumoth orax seen. The cardiac silhouette size is stable and mildly enlarged with atherosclerotic change in the thoracic aorta. The osseous structures are demineralized. Multilevel spurring in the thoracic s pine is present. IMPRESSION: Chronic parenchymal changes and mild cardiomegaly without acute pulmonary process.
[2019-01-20] MEDS ORDERED: NALOXONE 0.4 MG/ML 1 ML VIAL IV PRN (17:43)
[2019-01-20] MEDS ORDERED: amLODIPine 5 MG TAB PO STA (17:59)
[2019-01-20 19:01] LABS: Appearance,Urine Clear (Clear); Bacteria,Urine Many /hpf; Bilirubin,Urine Negative (Negative); Blood,Urine Negative (Negative); Color,Urine Light Yellow; Glucose,Urine (UA) Negative (Negative); Hyaline Casts,Urine 4 /lpf (0-2); Ketones,Urine Negative (Negative); Leukocyte Esterase,Urine Moderate (Negative); Nitrite,Urine Negative (Negative); PH, Urine 5.5 (5.0-8.0); Protein,Urine Negative (Negative); RBC,Urine 1 /hpf (0-5); Specific Gravity,Urine 1.011 (1.001-1.035); Squamous Epithelial Cell,Urine 2 /hpf (0-4); Urobilinogen,Urine <2.0 mg/dL (<2.0); WBC,Urine 15 /hpf (0-5)
[2019-01-20] MEDS: HEPARIN SODIUM,PORCINE 5,000 UNIT/ML 1 ML VIAL SQ SCH (21:00)
[2019-01-21 04:36] LABS: Basophils % (A) 0 %; Eosinophils # (A) 0.2 k/uL (0-0.7); Eosinophils % (A) 4 %; HCT 35.3 % (34.0-46.0); HGB 11.7 gm/dL (11.4-16.0); Lymphocytes # (A) 1.3 k/uL (1.0-4.8); Lymphocytes % (A) 20 %; MCH 29.8 pg (25.0-35.0); MCHC 33.3 g/dL (31.0-37.0); MCV 89.5 fL (80.0-100.0); Mean Platelet Volume 7.4; Monocytes # (A) 0.4 k/uL (0-1.0); Monocytes % (A) 6 %; Neutrophils # (A) 4.2 k/uL (1.3-7.7); Neutrophils % (A) 68 %; Platelet Count 195 k/uL (150-450); RBC 3.95 m/uL (3.80-5.40); RDW 13.8 % (11.5-15.5); WBC 6.3 k/uL (3.8-10.6)
[2019-01-21 04:58] LABS: Calcium 9.1 mg/dL (8.4-10.2); Potassium 4.1 mmol/L (3.5-5.1)
[2019-01-21 06:06] LABS: Glucose,Whole Blood 204 mg/dL (75-99)
[2019-01-21] MEDS ORDERED: MECLIZINE 12.5 MG TAB PO PRN (07:29)
--- NOTE | 2019-01-21 08:14 | P.CRDCN ---
<Karis Denney - Last Filed: 01/21/19 11:51> History of Present Illness History of present illness: This is Karis Denney PA-C dictating a consult on this patient The patient was interviewed and examined by me as well as by Dr. Akhtar Case discussed with Dr. Akhtar and he agrees with the plan of care IMPRESSION / ASSESSMENT: Altered mental status, possibly related to bradycardia versus TIA, head CT negative for hemorrhage History of CVA CAD status post CABG Hypertension, Dyslipidemia Bilateral carotid atherosclerosis Diabetes Hypothyroidism COPD PLAN: Check TSH Home blood pressure medications were resumed, if blood pressure still not controlled tomorrow we will increase amlodipine to 5 mg twice a day Monitor for bradycardia and atrial fibrillation on telemetry Continue dual antiplatelet therapy and atorvastatin 40 mg daily Discussed possible need for loop recorder implant to assess for episodes of sudden bradycardia as a cause of her AMS as well as for silent atrial fibrillation as a cause for her possible TIAs HPI Patient is an 82-year-old female with a past medical history of CAD status post CABG, diabetes, hypertension, COPD, dyslipidemia, hypothyroidism, and CVA who presented to the emergency department with altered mental status. Patient does not recall the events that brought her into the hospital. Family reports that they were at a cookout the patient became unresponsive appeared "white". Her daughter checked her pulse and it was" very slow". She was sitting in the chair with her eyes closed, not responding to family for about 5 minutes. After that her speech was slow and slurred. She has not had any episodes like this in the past. She has had one fall over the last year and it was due to tripping on her walker. She was brought to the emergency department. Upon admission her blood pressure was 143/59 and her heart rate was 87bpm. Blood sugar was 121. Head CT showed cerebral atrophy, no intracranial hemorrhage, no changes from prior CT. Patient seen and examined resting comfortably in bed. She is complaining of a headache which has been ongoing for the last week as well as feeling tired today. She has blind in the right eye but denies any blurry vision out of the left eye. Denies chest pain, palpitations, shortness of breath, orthopnea, PND, lightheadedness, dizziness. She was able to stand up with a walker with therapy without feeling dizzy or lightheaded. ROS: No fevers, chills or rigors, no cough, phlegm or expectoration, no nausea, vomiting or diarrhea, no hematuria, dysuria positive for headache EXAMINATION: Temperature 90.2F, pulse 65, respirations 16, blood pressure 173/81, oxygen saturation 95% on room air Patient seen and examined resting comfortably in bed, no acute distress Heart is regular rate and rhythm, normal S1-S2, no murmurs appreciated Lungs are clear to auscultation bilaterally No carotid bruits appreciated No lower extremity edema REVIEW OF LABS, ECG & MEDICAL DATA 12-lead EKG showed sinus rhythm with normal MI, normal QRS, 0.[address] depression in high lateral precordial leads with T-wave inversions WBC 6.3, hemoglobin 11.7, potassium 4.1, BUN 20, creatinine 0.73, troponin negative 3 Telemetry revealed normal sinus rhythm, no bradycardia or arrhythmias noted overnight Carotid Doppler showed atheromatous plaque bilaterally, severity unclear Medications and Allergies Home Medications Medication Instructions Recorded Confirmed Type Benazepril HCl 20 mg PO BID 11/05/13 01/20/19 History Clopidogrel Bisulfate [Plavix] 75 mg PO DAILY 11/05/13 01/20/19 History Cholecalciferol [Vitamin D3 (25 3,000 unit PO DAILY 02/05/15 01/20/19 History Mcg = 1000 Iu)] Atorvastatin Calcium [Lipitor] 40 mg PO HS 02/18/16 01/20/19 History amLODIPine BESYLATE [Norvasc] 5 mg PO BID 02/18/16 01/20/19 History Levothyroxine Sodium [Synthroid] 50 mcg PO DAILY 01/07/17 01/20/19 History Meclizine HCl 12.5 mg PO Q8H PRN 01/07/17 01/20/19 History Famotidine [Pepcid] 20 mg PO DAILY 07/27/17 01/20/19 History Prazosin [Minipress] 1 mg PO BID 07/27/17 01/20/19 History Multivitamins, Thera [Multivitamin 1 each PO DAILY@1200 #30 tab 02/02/18 01/20/19 Rx (formulary)] Thiamine [Vitamin B-1] 100 mg PO DAILY@1200 #30 tab 02/02/18 01/20/19 Rx Cranberry Fruit Extract [Cranberry] 1,000 mg PO DAILY 05/04/18 01/20/19 History metFORMIN HCL 500 mg PO BID 06/16/18 01/20/19 History sitaGLIPtin [Januvia] 50 mg PO DAILY 06/16/18 01/20/19 History glipiZIDE [Glucotrol] 5 mg PO HS #30 tab 06/19/18 01/20/19 Rx glipiZIDE [Glucotrol] 10 mg PO QAM #30 tab 06/19/18 01/20/19 Rx Allergies Allergy/AdvReac Type Severity Reaction Status Date / Time aspirin Allergy Rash/Hives Verified 01/20/19 15:40 fish derived Allergy Rash/Hives Verified 01/20/19 15:40 Iodinated Contrast- Oral and Allergy Rash/Hives Verified 01/20/19 15:40 IV Dye [Iodinated Contrast Media - IV Dye] Iodine and Iodide Containing Allergy Rash/Hives Verified 01/20/19 15:40 Produc shellfish derived [Shellfish] Allergy Rash/Hives Verified 01/20/19 15:40 Physical Exam Vitals: Vital Signs Temp Pulse Pulse Resp BP BP Pulse Ox 01/21/19 11:50 74 16 155/74 96 01/21/19 07:51 98.2 F 65 16 173/80 95 01/21/19 00:00 97 F L 64 16 154/62 97 01/20/19 20:55 98.0 F 68 16 157/64 98 01/20/19 20:35 98.3 F 16 179/74 98 01/20/19 19:00 64 16 183/79 100 01/20/19 18:10 63 16 184/68 99 01/20/19 17:40 98 F 62 18 188/75 100 01/20/19 17:10 63 18 176/74 100 01/20/19 16:40 56 L 18 173/74 100 01/20/19 16:10 56 L 18 132/82 100 01/20/19 15:55 61 18 151/58 99 01/20/19 15:40 63 18 128/66 100 01/20/19 15:25 63 18 142/50 100 01/20/19 15:12 98.1 F 66 18 143/59 96 Intake and Output 01/20/19 01/21/19 01/21/19 22:59 06:59 14:59 Intake Total 200 100 240 Output Total 400 450 Balance 200 -300 -210 Intake: Oral 200 100 240 Output: Urine 400 450 Other: Voiding Method Diaper Incontinent # Voids 400 # Bowel Movements 2 2 Weight 65.317 kg 68.9 kg 68.9 kg Results 01/21/19 03:52 01/21/19 03:52 Cardiac Enzymes 01/20/19 01/20/19 01/20/19 Range/Units 15:39 15:39 21:15 AST 18 (14-36) U/L CK-MB (CK-2) 1.5 (0.0-2.4) ng/mL Troponin I <0.012 <0.012 (0.000-0.034) ng/mL 01/21/19 Range/Units 03:52 AST (14-36) U/L CK-MB (CK-2) (0.0-2.4) ng/mL Troponin I <0.012 (0.000-0.034) ng/mL Coagulation 01/20/19 Range/Units 15:39 PT 10.7 (9.0-12.0) sec APTT 23.8 (22.0-30.0) sec CBC 01/20/19 01/21/19 Range/Units 15:39 03:52 WBC 5.8 6.3 (3.8-10.6) k/uL RBC 3.74 L 3.95 (3.80-5.40) m/uL Hgb 10.9 L 11.7 (11.4-16.0) gm/dL Hct 32.9 L 35.3 (34.0-46.0) % Plt Count 193 195 (150-450) k/uL Comprehensive Metabolic Panel 01/20/19 01/21/19 Range/Units 15:39 03:52 Sodium 141 141 (137-145) mmol/L Potassium 4.3 4.1 (3.5-5.1) mmol/L Chloride 111 H 111 H (98-107) mmol/L Carbon Dioxide 20 L 21 L (22-30) mmol/L BUN 28 H 20 H (7-17) mg/dL Creatinine 1.02 0.73 (0.52-1.04) mg/dL Glucose 121 H 181 H (74-99) mg/dL Calcium 9.0 9.1 (8.4-10.2) mg/dL AST 18 (14-36) U/L ALT 15 (9-52) U/L Alkaline Phosphatase 58 (38-126) U/L Total Protein 6.5 (6.3-8.2) g/dL Albumin 3.7 (3.5-5.0) g/dL Current Medications Generic Name Dose Route Start Last Admin Trade Name Freq PRN Reason Stop Dose Admin Al Hydroxide/Mg Hydroxide 30 ml 01/20/19 16:41 Maalox PO Q4HR PRN GI Upset Amlodipine Besylate 5 mg 01/21/19 09:00 01/21/19 09:07 Norvasc PO 5 mg DAILY LARRY Administration Atorvastatin Calcium 40 mg 01/21/19 21:00 Lipitor PO HS PENDING SALE TO [facility] Cholecalciferol 3,000 unit 01/21/19 09:00 01/21/19 09:04 Vitamin D3 (25 Mcg = 1000 Iu) PO 3,000 unit DAILY LARRY Administration Clopidogrel Bisulfate 75 mg 01/21/19 09:00 01/21/19 09:04 Plavix PO 75 mg DAILY LARRY Administration Famotidine 20 mg 01/21/19 09:00 01/21/19 09:04 Pepcid PO 20 mg DAILY LARRY Administration Heparin Sodium (Porcine) 5,000 unit 01/20/19 21:00 01/21/19 09:04 Heparin SQ 5,000 unit Q12HR LARRY Administration Insulin Aspart 0 unit 01/21/19 12:30 Novolog SQ ACHS PENDING SALE TO [facility] Protocol Levothyroxine Sodium 50 mcg 01/22/19 06:30 Synthroid PO DAILY@0630 LARRY Linagliptin 5 mg 01/21/19 09:00 01/21/19 09:04 Tradjenta PO 5 mg DAILY LARRY Administration Lisinopril 20 mg 01/21/19 09:00 01/21/19 09:04 Zestril PO 20 mg BID LARRY Administration Meclizine HCl 12.5 mg 01/21/19 07:29 Antivert PO TID PRN Vertigo Metformin HCl 500 mg 01/21/19 07:30 01/21/19 09:04 Glucophage PO 500 mg BID-W/MEALS LARRY Administration Multivitamins 1 each 01/21/19 09:00 01/21/19 09:04 Theragran PO 1 each DAILY LARRY Administration Naloxone HCl 0.2 mg 01/20/19 17:43 Narcan IV Q2M PRN Opioid Reversal Prazosin HCl 1 mg 01/21/19 09:00 01/21/19 09:04 Minipress PO 1 mg BID LARRY Administration Thiamine HCl 100 mg 01/21/19 09:00 01/21/19 09:04 Vitamin B-1 PO 100 mg DAILY LARRY Administration Intake and Output 01/20/19 01/21/19 01/21/19 22:59 06:59 14:59 Intake Total 200 100 240 Output Total 400 450 Balance 200 -300 -210 Intake: Oral 200 100 240 Output: Urine 400 450 Other: Voiding Method Diaper Incontinent # Voids 400 # Bowel Movements 2 2 Weight 65.317 kg 68.9 kg 68.9 kg Patient Weight 01/22/19 06:59 Weight 68.9 kg 01/21/19 03:52 01/21/19 03:52 <Keith Akhtra - Last Filed: 01/21/19 15:11> Review of Systems Data review Cerebral atrophy no intracranial hemorrhage no change from prior CT Chest x-ray shows post-CABG changes, chronic parenchymal changes 83-year-old female with history of type 2 diabetes, prior stroke and COPD presents with altered mental status. Witnessed event of difficulty committee getting her family members, slow to respond to questions and struggling to articulate. She may have also been choking Blind in the right eye Past history of hypertension dyslipidemia syncope type 2 diabetes hypothyroidism blind in the right eye Coronary artery disease coronary artery bypass grafting Never smoker Twelve-lead ECG shows sinus rhythm normal MI interval, narrow QRS and normal ST segments except for a 0.[address] depression in the high lateral precordial leads with T-wave inversions Past Medical History Past Medical History: Coronary Artery Disease (CAD), Chest Pain / Angina, CVA/TIA, Diabetes Mellitus, Eye Disorder, GERD/Reflux, Hyperlipidemia, H ypertension, Osteoarthritis (OA), Syncope, Thyroid Disorder Additional Past Medical History / Comment(s): CVA-1996 arm and L leg weakness, NIDDM type II, dysphagia, esophageal strictures with dilations, hiatal hernia, chronic pain syndrome (generalized pain), hypothyroidism, peripheral neuropathy, bilateral hand numbness and tingling, bilateral carpal tunnel syndrome, anemia, Diabetic Retinopathy, blind in R eye, UTIs, urinatry leakage, sinus problems., uses walker.pt stated recent fall/had scalp laceration and niall removed 01-29-18. History of Any Multi-Drug Resistant Organisms: None Reported Past Surgical History: Bladder Surgery, Cholecystectomy, Coronary Bypass/CABG, Heart Catheterization, Hysterectomy Additional Past Surgical History / Comment(s): CABG-2007, Ccath 2007, multiple EGDs/dilations with biopsies, COLONOSCOPY. Cataracts, D&C, bladder suspension. Past Anesthesia/Blood Transfusion Reactions: No Reported Reaction, Motion Sickness, Postoperative Nausea & Vomiting (PONV) Past Psychological History: No Psychological Hx Reported Additional Psychological History / Comment(s): pt lives at home with her bree. pt has a cleaning service come to home. has cane, w/c, walker, shower chair, glucometer, bp machine Smoking Status: Never smoker Past Alcohol Use History: None Reported Past Drug Use History: None Reported - Past Family History Father Family Medical History: Liver Disease Additional Family Medical History / Comment(s): Father of cirrhosis. He was a drinker. Mother Family Medical History: Unable to Obtain Additional Family Medical History / Comment(s): Pt states she does not know her mother's medical history. Son(s) Family Medical History: Unable to Obtain, Renal Disease Daughter(s) Family Medical History: Cancer Physical Exam Vitals: Vital Signs Temp Pulse Pulse Resp BP BP Pulse Ox 01/21/19 07:51 98.2 F 65 16 173/80 95 01/21/19 00:00 97 F L 64 16 154/62 97 01/20/19 20:55 98.0 F 68 16 157/64 98 01/20/19 20:35 98.3 F 16 179/74 98 01/20/19 19:00 64 16 183/79 100 01/20/19 18:10 63 16 184/68 99 01/20/19 17:40 98 F 62 18 188/75 100 01/20/19 17:10 63 18 176/74 100 01/20/19 16:40 56 L 18 173/74 100 01/20/19 16:10 56 L 18 132/82 100 01/20/19 15:55 61 18 151/58 99 01/20/19 15:40 63 18 128/66 100 01/20/19 15:25 63 18 142/50 100 01/20/19 15:12 98.1 F 66 18 143/59 96 Intake and Output 01/20/19 01/21/19 01/21/19 22:59 06:59 14:59 Intake Total 200 100 240 Output Total 400 Balance 200 -300 240 Intake: Oral 200 100 240 Output: Urine 400 Other: Voiding Method Diaper Incontinent # Voids 400 # Bowel Movements 2 2 Weight 65.317 kg 68.9 kg Results 01/21/19 03:52 01/21/19 03:52 Cardiac Enzymes 01/20/19 01/20/19 01/20/19 Range/Units 15:39 15:39 21:15 AST 18 (14-36) U/L CK-MB (CK-2) 1.5 (0.0-2.4) ng/mL Troponin I <0.012 <0.012 (0.000-0.034) ng/mL 01/21/19 Range/Units 03:52 AST (14-36) U/L CK-MB (CK-2) (0.0-2.4) ng/mL Troponin I <0.012 (0.000-0.034) ng/mL Coagulation 01/20/19 Range/Units 15:39 PT 10.7 (9.0-12.0) sec APTT 23.8 (22.0-30.0) sec CBC 01/20/19 01/21/19 Range/Units 15:39 03:52 WBC 5.8 6.3 (3.8-10.6) k/uL RBC 3.74 L 3.95 (3.80-5.40) m/uL Hgb 10.9 L 11.7 (11.4-16.0) gm/dL Hct 32.9 L 35.3 (34.0-46.0) % Plt Count 193 195 (150-450) k/uL Comprehensive Metabolic Panel 01/20/19 01/21/19 Range/Units 15:39 03:52 Sodium 141 141 (137-145) mmol/L Potassium 4.3 4.1 (3.5-5.1) mmol/L Chloride 111 H 111 H (98-107) mmol/L Carbon Dioxide 20 L 21 L (22-30) mmol/L BUN 28 H 20 H (7-17) mg/dL Creatinine 1.02 0.73 (0.52-1.04) mg/dL Glucose 121 H 181 H (74-99) mg/dL Calcium 9.0 9.1 (8.4-10.2) mg/dL AST 18 (14-36) U/L ALT 15 (9-52) U/L Alkaline Phosphatase 58 (38-126) U/L Total Protein 6.5 (6.3-8.2) g/dL Albumin 3.7 (3.5-5.0) g/dL Current Medications Generic Name Dose Route Start Last Admin Trade Name Freq PRN Reason Stop Dose Admin Al Hydroxide/Mg Hydroxide 30 ml 01/20/19 16:41 Maalox PO Q4HR PRN GI Upset Amlodipine Besylate 5 mg 01/21/19 09:00 Norvasc PO DAILY PENDING SALE TO [facility] Atorvastatin Calcium 40 mg 01/21/19 21:00 Lipitor PO HS PENDING SALE TO [facility] Cholecalciferol 3,000 unit 01/21/19 09:00 Vitamin D3 (25 Mcg = 1000 Iu) PO DAILY PENDING SALE TO [facility] Clopidogrel Bisulfate 75 mg 01/21/19 09:00 Plavix PO DAILY PENDING SALE TO [facility] Famotidine 20 mg 01/21/19 09:00 Pepcid PO DAILY PENDING SALE TO [facility] Heparin Sodium (Porcine) 5,000 unit 01/20/19 21:00 01/20/19 21:00 Heparin SQ 5,000 unit Q12HR PENDING SALE TO [facility] Administration Insulin Aspart 0 unit 01/21/19 12:30 Novolog SQ ACHS PENDING SALE TO [facility] Protocol Levothyroxine Sodium 50 mcg 01/22/19 06:30 Synthroid PO DAILY@0630 PENDING SALE TO [facility] Linagliptin 5 mg 01/21/19 09:00 Tradjenta PO DAILY PENDING SALE TO [facility] Lisinopril 20 mg 01/21/19 09:00 Zestril PO BID PENDING SALE TO [facility] Meclizine HCl 12.5 mg 01/21/19 07:29 Antivert PO TID PRN Vertigo Metformin HCl 500 mg 01/21/19 07:30 Glucophage PO BID-W/MEALS PENDING SALE TO [facility] Multivitamins 1 each 01/21/19 09:00 Theragran PO DAILY PENDING SALE TO [facility] Naloxone HCl 0.2 mg 01/20/19 17:43 Narcan IV Q2M PRN Opioid Reversal Prazosin HCl 1 mg 01/21/19 09:00 Minipress PO BID PENDING SALE TO [facility] Thiamine HCl 100 mg 01/21/19 09:00 Vitamin B-1 PO DAILY PENDING SALE TO [facility] Intake and Output 01/20/19 01/21/19 01/21/19 22:59 06:59 14:59 Intake Total 200 100 240 Output Total 400 Balance 200 -300 240 Intake: Oral 200 100 240 Output: Urine 400 Other: Voiding Method Diaper Incontinent # Voids 400 # Bowel Movements 2 2 Weight 65.317 kg 68.9 kg 01/21/19 03:52 01/21/19 03:52
--- NOTE | 2019-01-21 08:37 | US ---
EXAMINATION TYPE: US carotid duplex BILAT DATE OF EXAM: 01/21/2019 COMPARISON: NONE CLINICAL HISTORY: Pain. HTN, confusion EXAM MEASUREMENTS: RIGHT: Peak Systolic Velocity (PSV) cm/sec ----- Right CCA: 46.2 ----- Right ICA: 99.6 ----- Right ECA: 71.3 ICA/CCA ratio: 2.2 RIGHT: End Diastole cm/sec ----- Right CCA: 7.8 ----- Right ICA: 27.0 ----- Right ECA: 0.0 LEFT: Peak Systolic Velocity (PSV) cm/sec ----- Left CCA: 60.7 ----- Left ICA: 80.1 ----- Left ECA: 82.3 ICA/CCA ratio: 1.3 LEFT: End Diastole cm/sec ----- Left CCA: 11.0 ----- Left ICA: 18.6 ----- Left ECA: 0.0 VERTEBRALS (direction of flow): Right Vertebral: Antegrade Left Vertebral: Antegrade Rhythm: Normal Right significant stenosis. No elevated velocities. Plaque seen throughout bilateral CCA's and bulb s extending into proximal ICA. Bilateral wall thickening. With severe to critical stenosis velocity measurements may drop. The atheromatous plaque and appears greater than expected for the velocity measurements. There may be increasing atheromatous plaquing fr om the comparison study. IMPRESSION: Atheromatous plaquing bilateral carotid bifurcations. This appears out of proportion to the velocity levels. Recommend additional evaluation with CTA or MRA. Very severe stenosis is not exc luded. Correlate with the clinical symptoms. Criteria for Assigning % of Stenosis / Diameter reduction (Estimation based on the indirect measurements of the internal carotid artery velocities (ICA PSV). 1. Normal (no stenosis)=ICA PSV < 125 cm/s: ratio < 2.0: ICA EDV<40 cm/s. 2. Less than 50% stenosis=ICA PSV < 125 cm/s: ratio < 2.0: ICA EDV<40 cm/s. 3. 50 to 69% stenosis=ICA PSV of 125 to 230 cm/s: ration 2.0 ? 4.0: ICA EDV 40-100 cm/s. 4. Greater than 70% stenosis to near occlusion= ICA PSV > 230 cm/s: ratio > 4.0: ICA EDV > 100 cm/s. 5. Near occlusion= ICA PSV velocities may be low or undetectable: variable ratio and ICA EDV. 6. Total occlusion=unable to detect flow.
[2019-01-21] MEDS: LINAGLIPTIN 5 MG TABLET PO SCH (09:04)
[2019-01-21] MEDS: LISINOPRIL 20 MG TAB PO SCH ×2 (09:04→21:09)
[2019-01-21] MEDS: CHOLECALCIFEROL 1,000 UNIT TAB PO SCH (09:04)
[2019-01-21] MEDS: PRAZOSIN 1 MG CAP PO SCH ×2 (09:04→21:09)
[2019-01-21] MEDS: MULTIVITAMINS, THERA 1 EACH TAB PO SCH (09:04)
[2019-01-21] MEDS: FAMOTIDINE 20 MG TAB PO SCH (09:04)
[2019-01-21] MEDS: CLOPIDOGREL 75 MG TAB PO SCH (09:04)
[2019-01-21] MEDS: metFORMIN 500 MG TAB PO SCH ×2 (09:04→17:14)
[2019-01-21] MEDS: HEPARIN SODIUM,PORCINE 5,000 UNIT/ML 1 ML VIAL SQ SCH ×2 (09:04→21:08)
[2019-01-21] MEDS: THIAMINE 100 MG TAB PO SCH (09:04)
[2019-01-21] MEDS: amLODIPine 5 MG TAB PO SCH (09:07)
[2019-01-21 12:03] LABS: Glucose,Whole Blood 175 mg/dL (75-99)
[2019-01-21] MEDS: INSULIN ASPART (NovoLOG) 100 UNIT/ML VIAL SQ SCH ×3 (12:46→21:09)
--- NOTE | 2019-01-21 15:42 | P.HPIM ---
History of Present Illness H&P Date: 01/21/19 Chief Complaint: Less responsive episode History of presenting complaint: This is a pleasant 83-year-old patient who follows with Dr. Ramirez. Rather extensive medical history to include coronary coronary artery disease, left- sided weakness from prior stroke, diabetes, blind in the right eye, hypertension, hyperlipidemia, hypothyroid, chronic pain, osteoarthritis, periphe ral neuropathy, esophageal strictures without irritation, urinary incontinence. Patient was in the family gathering yesterday out at the back of the house. Sitting on a walker chair. Patient's grandson came over to her and found the patient to be not really responding patient is sitting up somewhat looking blank. There is no perspiration. No change in facial color such. No seizure activity. Patient just simply decreased responsive for about 5 minutes. It may be noted that it was 93F temperature outside yesterday and quite hot. Patient did not report any chest pain or palpitation. No new focal weakness. Patient was admitted for the same. Patient feels a bit tired today otherwise doing better. Review of systems: GEN.: Tired EYES: Blind in the right eye HEENT: Decreased hearing NECK: None RESPIRATORY: None CARDIOVASCULAR: None GASTROINTESTINAL: None GENITOURINARY: None MUSCULOSKELETAL: Pain in some joints LYMPHATICS: None HEMATOLOGICAL: None PSYCHIATRY: None NEUROLOGICAL: As above Social history: Does not smoke or drink alcohol. . Does use a walker Physical examination: VITAL SIGNS: 98.1, 66, 18, 143/59, 96% room air GENERAL: Average built, propped up in bed, tired. EYES: Blind in the right eye,l. HEENT: External appearance of nose and ears normal, oral cavity grossly normal. NECK: JVD not raised; masses not palpable. HEART: First and second heart sounds are normal; no edema. LUNGS: Respiratory rate normal; clear to auscultation. ABDOMEN: Soft, nontender, liver spleen not palpable, no masses palpable. PSYCH: Alert and oriented x3; mood and affect normal. NEUROLOGICAL: Cranial nerves grossly intact; no facial asymmetry, power and sensation grossly intact, blind in the right eye. LYMPHATICS: No lymph nodes palpable in the axilla and neck INVESTIGATIONS, reviewed in the clinical context White count 5.8 hemoglobin 10.9 platelets 193 potassium 4.3 blood urine nitrogen 28 creatinine 1.08 Troponin I 3 less than 0.012 TSH 2.0 Computed tomography scan brain-some chronic changes Chest x-ray film personally reviewed by me shows borderline cardiomegaly, some chronic infiltrate as per report EKG tracing personally reviewed by me shows normal sinus rhythm Assessment: -This is a 83-year-old patient with multiple comorbidities who was sitting out in a very warm temperature of 92F. Patient became decreased responsive about 5 minutes. No seizure activity was noted. No obvious arrhythmias been detected. They cannot be ruled out. Patient may simply have been dehydrated. -Coronary artery disease -Diabetes mellitus type 2 on oral hypoglycemic -Blind in the right eye -Essential hypertension -Hyperlipidemia -Hypothyroidism -Primary osteoarthritis -Diabetic peripheral neuropathy -Chronic urinary incontinence -Chronic gait dysfunction uses a walker Plan: Cardiology was consulted. She is put on telemetry rule out any arrhythmia. We will also order an EEG to rule out seizure activity. Home medications are reviewed. Care was discussed with the patient and the family the bedside. Lovenox for DVT prophylaxis. Past Medical History Past Medical History: Coronary Artery Disease (CAD), Chest Pain / Angina, CVA/TIA, Diabetes Mellitus, Eye Disorder, GERD/Reflux, Hyperlipidemia, Hypertension, Osteoarthritis (OA), Syncope, Thyroid Disorder Additional Past Medical History / Comment(s): 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 History of Any Multi-Drug Resistant Organisms: None Reported Past Surgical History: Bladder Surgery, Cholecystectomy, Coronary Bypass/CABG, Heart Catheterization, Hysterectomy Additional Past Surgical History / Comment(s): CABG-2007, Ccath 2007, multiple EGDs/dilations with biopsies, COLONOSCOPY. Cataracts, D&C, bladder suspension. Past Anesthesia/Blood Transfusion Reactions: No Reported Reaction, Motion Sickness, Postoperative Nausea & Vomiting (PONV) Past Psychological History: No Psychological Hx Reported Additional Psychological History / Comment(s): pt lives at home with her bree. pt has a cleaning service come to home. has cane, w/c, walker, shower chair, glucometer, bp machine Smoking Status: Never smoker Past Alcohol Use History: None Reported Past Drug Use History: None Reported - Past Family History Father Family Medical History: Liver Disease Additional Family Medical History / Comment(s): Father of cirrhosis. He was a drinker. Mother Family Medical History: Unable to Obtain Additional Family Medical History / Comment(s): Pt states she does not know her mother's medical history. Son(s) Family Medical History: Unable to Obtain, Renal Disease Daughter(s) Family Medical History: Cancer Medications and Allergies Home Medications Medication Instructions Recorded Confirmed Type Benazepril HCl 20 mg PO BID 11/05/13 01/20/19 History Clopidogrel Bisulfate [Plavix] 75 mg PO DAILY 11/05/13 01/20/19 History Cholecalciferol [Vitamin D3 (25 3,000 unit PO DAILY 02/05/15 01/20/19 History Mcg = 1000 Iu)] Atorvastatin Calcium [Lipitor] 40 mg PO HS 02/18/16 01/20/19 History amLODIPine BESYLATE [Norvasc] 5 mg PO BID 02/18/16 01/20/19 History Levothyroxine Sodium [Synthroid] 50 mcg PO DAILY 01/07/17 01/20/19 History Meclizine HCl 12.5 mg PO Q8H PRN 01/07/17 01/20/19 History Famotidine [Pepcid] 20 mg PO DAILY 07/27/17 01/20/19 History Prazosin [Minipress] 1 mg PO BID 07/27/17 01/20/19 History Multivitamins, Thera [Multivitamin 1 each PO DAILY@1200 #30 tab 02/02/18 01/20/19 Rx (formulary)] Thiamine [Vitamin B-1] 100 mg PO DAILY@1200 #30 tab 02/02/18 01/20/19 Rx Cranberry Fruit Extract [Cranberry] 1,000 mg PO DAILY 05/04/18 01/20/19 History metFORMIN HCL 500 mg PO BID 06/16/18 01/20/19 History sitaGLIPtin [Januvia] 50 mg PO DAILY 06/16/18 01/20/19 History glipiZIDE [Glucotrol] 5 mg PO HS #30 tab 06/19/18 01/20/19 Rx glipiZIDE [Glucotrol] 10 mg PO QAM #30 tab 06/19/18 01/20/19 Rx Allergies Allergy/AdvReac Type Severity Reaction Status Date / Time aspirin Allergy Rash/Hives Verified 01/20/19 15:40 fish derived Allergy Rash/Hives Verified 01/20/19 15:40 Iodinated Contrast- Oral and Allergy Rash/Hives Verified 01/20/19 15:40 IV Dye [Iodinated Contrast Media - IV Dye] Iodine and Iodide Containing Allergy Rash/Hives Verified 01/20/19 15:40 Produc shellfish derived [Shellfish] Allergy Rash/Hives Verified 01/20/19 15:40 Physical Exam Vitals: Vital Signs Temp Pulse Pulse Resp BP BP Pulse Ox 01/21/19 11:50 74 16 155/74 96 01/21/19 07:51 98.2 F 65 16 173/80 95 01/21/19 00:00 97 F L 64 16 154/62 97 01/20/19 20:55 98.0 F 68 16 157/64 98 01/20/19 20:35 98.3 F 16 179/74 98 01/20/19 19:00 64 16 183/79 100 01/20/19 18:10 63 16 184/68 99 01/20/19 17:40 98 F 62 18 188/75 100 01/20/19 17:10 63 18 176/74 100 01/20/19 16:40 56 L 18 173/74 100 01/20/19 16:10 56 L 18 132/82 100 01/20/19 15:55 61 18 151/58 99 01/20/19 15:40 63 18 128/66 100 01/20/19 15:25 63 18 142/50 100 Intake and Output 01/21/19 01/21/19 01/21/19 06:59 14:59 22:59 Intake Total 100 480 Output Total 400 450 Balance -300 30 Intake: Oral 100 480 Output: Urine 400 450 Other: Voiding Method Diaper Incontinent # Bowel Movements 2 Weight 68.9 kg 68.9 kg Results CBC & Chem 7: 01/21/19 03:52 01/21/19 03:52 Labs: Abnormal Lab Results - Last 24 Hours (Table) 01/20/19 01/20/19 01/20/19 Range/Units 15:28 15:39 15:39 RBC 3.74 L (3.80-5.40) m/uL Hgb 10.9 L (11.4-16.0) gm/dL Hct 32.9 L (34.0-46.0) % Chloride 111 H (98-107) mmol/L Carbon Dioxide 20 L (22-30) mmol/L BUN 28 H (7-17) mg/dL Glucose 121 H (74-99) mg/dL POC Glucose (mg/dL) 119 H (75-99) mg/dL Ur Leukocyte Esterase (Negative) Urine WBC (0-5) /hpf Urine Bacteria (None) /hpf Hyaline Casts (0-2) /lpf 01/20/19 01/21/19 01/21/19 Range/Units 18:41 03:52 05:58 RBC (3.80-5.40) m/uL Hgb (11.4-16.0) gm/dL Hct (34.0-46.0) % Chloride 111 H (98-107) mmol/L Carbon Dioxide 21 L (22-30) mmol/L BUN 20 H (7-17) mg/dL Glucose 181 H (74-99) mg/dL POC Glucose (mg/dL) 204 H (75-99) mg/dL Ur Leukocyte Esterase Moderate H (Negative) Urine WBC 15 H (0-5) /hpf Urine Bacteria Many H (None) /hpf Hyaline Casts 4 H (0-2) /lpf 01/21/19 Range/Units 12:01 RBC (3.80-5.40) m/uL Hgb (11.4-16.0) gm/dL Hct (34.0-46.0) % Chloride (98-107) mmol/L Carbon Dioxide (22-30) mmol/L BUN (7-17) mg/dL Glucose (74-99) mg/dL POC Glucose (mg/dL) 175 H (75-99) mg/dL Ur Leukocyte Esterase (Negative) Urine WBC (0-5) /hpf Urine Bacteria (None) /hpf Hyaline Casts (0-2) /lpf Thrombosis Risk Factor Assmnt - Choose All That Apply Any of the Below Risk Factors Present?: No Other Risk Factors: Yes Each Risk Factor Represents 3 Points: Age 75 years or older Other congenital or acquired thrombophilia - If yes, enter type in comment: Yes Each Risk Factor Represents 5 Points: Stroke (< 1 month) Thrombosis Risk Factor Assessment Total Risk Factor Score: 8 Thrombosis Risk Factor Assessment Level: High Risk
[2019-01-21 17:04] LABS: Glucose,Whole Blood 165 mg/dL (75-99)
--- NOTE | 2019-01-21 19:18 | P.CNNES ---
History of Present Illness Consult date: 01/21/19 Reason for Consult: Concern for TIA Chief complaint: "Shakiness," blurred vision and possible loss of consciousness History of Present Illness: Ms. Suresh is an 83-year-old woman with an extensive past medical history of coronary artery disease status post open heart surgery in 2007, diabetes, blindness in the right eye (possibly from glaucoma), hypertension, hyperlipidemia, hypothyroidism, osteoarthritis, esophageal stricture status post expansion, left-sided weakness from prior stroke, presented to [facility] after possibly having an episode of loss of consciousness, consulting neurology for concern of TIA. Patient is with her daughter at bedside who is able to provide some corroborating information. However this daughter was not with the patient at the time of the event. Per H&P, patient was at the patient's grandson house for a family gathering when she was sitting on her walker chair and her grandson found the patient not very responsive and somewhat looking blank. It appears that patient didn't completely pass out but was responding less for about 5 minutes. No seizure activity. Patient states that on the day of the event (01/20/2019), patient woke up around 6 AM feeling "shakiness." Patient has had similar episodes of shakiness, for which patient takes a medication that starts with an M (possibly meclizine) disease. Patient took her usual morning meds which includes the M medication that she was given to take for dizziness. Patient felt better and then went to her grandsons place for the family gathering. She states that it was a rather hot day and she felt that she was having hot flashes when she started having the episode of shakiness. Patient endorses a spinning sensation along with some blurred vision. Patient has similar episodes when the weather gets hot or she doesn't get enough rest overnight. Patient denies having any headache, nausea, vomiting, focal weakness, numbness, tingling. Patient remembers getting into the ambulance and answering some questions that her grandson was asking. Patient had an MRI brain and IAC with and without contrast in April 2018 for hearing loss and dizziness at which time the results showed nonspecific white matter demyelination, may be due to chronic small vessel ischemia and age- related atrophy. Patient was also seen by neurology on 06/17/2018 for possible symptoms of a seizure lasting 20 minutes in duration during which time patient was not very responsive verbally. Patient was already on Plavix and aspirin given her previous history of stroke. Patient's neuro exam at the time included for/5 strength in the right upper and lower extremities and 3/5 in left upper and lower extremities. Also states that patient's sensory exam was intact. Review of Systems Per HPI Past Medical History Past Medical History: Coronary Artery Disease (CAD), Chest Pain / Angina, CVA/TIA, Diabetes Mellitus, Eye Disorder, GERD/Reflux, Hyperlipidemia, Hypertension, Osteoarthritis (OA), Syncope, Thyroid Disorder Additional Past Medical History / Comment(s): 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 History of Any Multi-Drug Resistant Organisms: None Reported Past Surgical History: Bladder Surgery, Cholecystectomy, Coronary Bypass/CABG, Heart Catheterization, Hysterectomy Additional Past Surgical History / Comment(s): CABG-2007, Ccath 2007, multiple EGDs/dilations with biopsies, COLONOSCOPY. Cataracts, D&C, bladder suspension. Past Anesthesia/Blood Transfusion Reactions: No Reported Reaction, Motion Sickness, Postoperative Nausea & Vomiting (PONV) Past Psychological History: No Psychological Hx Reported Additional Psychological History / Comment(s): pt lives at home with her bree. pt has a cleaning service come to home. has cane, w/c, walker, shower gabby martinez, glucometer, bp machine Smoking Status: Never smoker Past Alcohol Use History: None Reported Past Drug Use History: None Reported - Past Family History Father Family Medical History: Liver Disease Additional Family Medical History / Comment(s): Father of cirrhosis. He was a drinker. Mother Family Medical History: Unable to Obtain Additional Family Medical History / Comment(s): Pt states she does not know her mother's medical history. Son(s) Family Medical History: Unable to Obtain, Renal Disease Daughter(s) Family Medical History: Cancer Medications and Allergies Home Medications Medication Instructions Recorded Confirmed Type Benazepril HCl 20 mg PO BID 11/05/13 01/20/19 History Clopidogrel Bisulfate [Plavix] 75 mg PO DAILY 11/05/13 01/20/19 History Cholecalciferol [Vitamin D3 (25 3,000 unit PO DAILY 02/05/15 01/20/19 History Mcg = 1000 Iu)] Atorvastatin Calcium [Lipitor] 40 mg PO HS 02/18/16 01/20/19 History amLODIPine BESYLATE [Norvasc] 5 mg PO BID 02/18/16 01/20/19 History Levothyroxine Sodium [Synthroid] 50 mcg PO DAILY 01/07/17 01/20/19 History Meclizine HCl 12.5 mg PO Q8H PRN 01/07/17 01/20/19 History Famotidine [Pepcid] 20 mg PO DAILY 07/27/17 01/20/19 History Prazosin [Minipress] 1 mg PO BID 07/27/17 01/20/19 History Multivitamins, Thera [Multivitamin 1 each PO DAILY@1200 #30 tab 02/02/18 01/20/19 Rx (formulary)] Thiamine [Vitamin B-1] 100 mg PO DAILY@1200 #30 tab 02/02/18 01/20/19 Rx Cranberry Fruit Extract [Cranberry] 1,000 mg PO DAILY 05/04/18 01/20/19 History metFORMIN HCL 500 mg PO BID 06/16/18 01/20/19 History sitaGLIPtin [Januvia] 50 mg PO DAILY 06/16/18 01/20/19 History glipiZIDE [Glucotrol] 5 mg PO HS #30 tab 06/19/18 01/20/19 Rx glipiZIDE [Glucotrol] 10 mg PO QAM #30 tab 06/19/18 01/20/19 Rx Allergies Allergy/AdvReac Type Severity Reaction Status Date / Time aspirin Allergy Rash/Hives Verified 01/20/19 15:40 fish derived Allergy Rash/Hives Verified 01/20/19 15:40 Iodinated Contrast- Oral and Allergy Rash/Hives Verified 01/20/19 15:40 IV Dye [Iodinated Contrast Media - IV Dye] Iodine and Iodide Containing Allergy Rash/Hives Verified 01/20/19 15:40 Produc shellfish derived [Shellfish] Allergy Rash/Hives Verified 01/20/19 15:40 Physical Examination - Vital Signs Vital Signs: Vital Signs Temp Pulse Pulse Resp BP BP Pulse Ox 01/21/19 16:00 67 16 137/62 97 01/21/19 11:50 74 16 155/74 96 01/21/19 07:51 98.2 F 65 16 173/80 95 01/21/19 00:00 97 F L 64 16 154/62 97 01/20/19 20:55 98.0 F 68 16 157/64 98 01/20/19 20:35 98.3 F 16 179/74 98 01/20/19 19:00 64 16 183/79 100 Intake and Output 01/21/19 01/21/19 01/21/19 06:59 14:59 22:59 Intake Total 100 480 240 Output Total 400 450 Balance -300 30 240 Intake: Oral 100 480 240 Output: Urine 400 450 Other: Voiding Method Diaper Incontinent # Bowel Movements 2 Weight 68.9 kg 68.9 kg Gen NAD Pleasant and cooperative HEENT NCAT Sclera without icterus O/P clear, right eye closed at baseline, chronic from blindness Abd Soft NTND Ext Warm to touch No edema Neuro MS A+Ox4 Normal fluency Able to follow all commands CN L pupil round and reactive to light, difficult to assess visual field but it appears that there is some deficit, left eye EOMI no nystagmus, No facial asymmetry Hearing intact to finger rub bilaterally Speech not dysarthric Equal elevation of palate Tongue midline Sym shrug and SCM bilaterally Motor slightly decreased bulk/normal tone. No pronator or tremors Strength 4+/5 in right upper and lower extremity, 4/5 in left upper and lower extremity Sens reports sensation of "stickiness"in left V1 to V3, decreased to pinprick and temperature in left face arm and leg. Coord dysmetria on finger to nose but patient also with right eye blindness some left vision deficit at baseline DTRs 2+/4 sym throughout Toes downgoing bilaterally Gait walks with a walker. Narrow-based and stable Results - Laboratory Findings CBC and BMP: 01/21/19 03:52 01/21/19 03:52 Abnormal Lab Findings: Abnormal Labs 01/20/19 01/20/19 01/20/19 15:28 15:39 15:39 RBC 3.74 L Hgb 10.9 L Hct 32.9 L Chloride 111 H Carbon Dioxide 20 L BUN 28 H Glucose 121 H POC Glucose (mg/dL) 119 H Ur Leukocyte Esterase Urine WBC Urine Bacteria Hyaline Casts 01/20/19 01/21/19 01/21/19 18:41 03:52 05:58 RBC Hgb Hct Chloride 111 H Carbon Dioxide 21 L BUN 20 H Glucose 181 H POC Glucose (mg/dL) 204 H Ur Leukocyte Esterase Moderate H Urine WBC 15 H Urine Bacteria Many H Hyaline Casts 4 H 01/21/19 01/21/19 12:01 17:00 RBC Hgb Hct Chloride Carbon Dioxide BUN Glucose POC Glucose (mg/dL) 175 H 165 H Ur Leukocyte Esterase Urine WBC Urine Bacteria Hyaline Casts Assessment and Plan Assessment: Assessment and plan: Ms. Suresh is a 83-year-old woman with past medical history of coronary artery disease, diabetes, right eye blindness, hyperlipidemia, hypertension, hypothyroidism, stroke versus TIA (with residual left arm and leg weakness, and possible episodes of possible aphagia), presented with symptoms of decreased responsiveness, consulting neurology for concerns of TIA. Patient was previously evaluated by neurology in June 2018, at which time a full stroke workup was recommended. No MRI brain available from June 2018 but MRI brain from April 2018 did not show any acute stroke. CTA of neck performed in January 2018 showed focal stenosis approximately 60% and left ICA and right ICA. On to day's evaluation, patient with mild left sided weakness compared to the right, which was present during last evaluation, but patient also with sensation deficits with increased pinprick and cold sensation on the left face arm and leg. Carotid ultrasound done during this admission is showing plaquing in bilateral carotid bifurcations, where very severe stenosis is not excluded. Patient's symptoms of dizziness/spinning sensation and some blurred vision could be from a posterior circulation stroke, but patient with no nystagmus and patient at this time with resolved symptoms. However, as patient with newly found sensation deficits, would like to get MRI brain along with CTA of head and neck. Echocardiogram from June 2018 showed moderately dilated left atrium, ejection fraction 55-60%, moderate concentric left ventricular hypertrophy. Will repeat echocardiogram and also monitor patient on telemetry for at least 24 hours. Recommendations: 1. I discussed my impression and plan with patient and daughter. 2. MRI brain without contrast, CTA head and neck with contrast 3. Transthoracic echocardiogram 4. Monitor patient on telemetry for at least 24 hours, consider loop recorder placement if no arrhythmia on telemetry. 5. Continue Plavix and atorvastatin 6. Hypertension, diabetes, hypothyroidism management per primary team 7. Physical therapy and occupational therapy evaluation and treatment. 8. Neurology will continue to follow patient.
[2019-01-21 20:36] LABS: Glucose,Whole Blood 214 mg/dL (75-99)
[2019-01-21] MEDS: ATORVASTATIN 40 MG TAB PO SCH (21:08)
[2019-01-22 05:57] LABS: Glucose,Whole Blood 186 mg/dL (75-99)
[2019-01-22] MEDS: LEVOTHYROXINE 50 MCG TAB PO SCH (06:12)
[2019-01-22] MEDS: INSULIN ASPART (NovoLOG) 100 UNIT/ML VIAL SQ SCH ×4 (06:36→21:57)
[2019-01-22] MEDS: metFORMIN 500 MG TAB PO SCH ×2 (06:37→17:36)
[2019-01-22] MEDS: PRAZOSIN 1 MG CAP PO SCH ×2 (09:20→22:10)
[2019-01-22] MEDS: LISINOPRIL 20 MG TAB PO SCH ×2 (09:20→21:57)
[2019-01-22] MEDS: FAMOTIDINE 20 MG TAB PO SCH (09:20)
[2019-01-22] MEDS: MULTIVITAMINS, THERA 1 EACH TAB PO SCH (09:20)
[2019-01-22] MEDS: LINAGLIPTIN 5 MG TABLET PO SCH (09:20)
[2019-01-22] MEDS: CLOPIDOGREL 75 MG TAB PO SCH (09:20)
[2019-01-22] MEDS: THIAMINE 100 MG TAB PO SCH (09:20)
[2019-01-22] MEDS: HEPARIN SODIUM,PORCINE 5,000 UNIT/ML 1 ML VIAL SQ SCH ×2 (09:20→21:57)
[2019-01-22] MEDS: amLODIPine 5 MG TAB PO SCH (09:20)
[2019-01-22] MEDS: CHOLECALCIFEROL 1,000 UNIT TAB PO SCH (09:20)
[2019-01-22 12:17] LABS: Glucose,Whole Blood 211 mg/dL (75-99)
[2019-01-22] MEDS: SODIUM CHLORIDE 0.9% 1,000 ML IV SCH (12:18)
--- NOTE | 2019-01-22 13:52 | P.PN ---
<Vicky Segura E - Last Filed: 01/22/19 13:48> Subjective Progress Note Date: 01/22/19 Patient is an 82-year-old female with a past medical history of CAD status post CABG, diabetes, hypertension, COPD, dyslipidemia, hypothyroidism, and CVA who presented to the emergency department with altered mental status. Patient does not recall the events that brought her into the hospital. Family reports that they were at a cookout the patient became unresponsive appeared "white". Her daughter checked her pulse and it was" very slow". She was sitting in the chair with her eyes closed, not responding to family for about 5 minutes. After that her speech was slow and slurred. She has not had any episodes like this in the past. She has had one fall over the last year and it was due to tripping on her walker. She was brought to the emergency department. Upon admission her blood pressure was 143/59 and her heart rate was 87bpm. Blood sugar was 121. Head CT showed cerebral atrophy, no intracranial hemorrhage, no changes from prior CT. patient had no significant bradycardia noted on the monitor. No evidence of any tachyarrhythmias. Hemodynamically stable today. Dr. Akhtar did have a lengthy discussion with the patient and her family today recommending that she undergo implantation of a loop recorder. This will be performed tomorrow by Dr. Akhtar. Objective - Vital Signs Vital signs: Vital Signs Temp 97.9 F 01/22/19 11:16 Pulse 61 01/22/19 11:16 Resp 16 01/22/19 11:16 BP 131/71 01/22/19 11:16 Pulse Ox 98 01/22/19 11:16 Intake & Output 01/21/19 01/22/19 01/22/19 18:59 06:59 18:59 Intake Total 720 240 240 Output Total 450 Balance 270 240 240 Weight 68.9 kg 69.9 kg Intake: Oral 720 240 240 Output: Urine 450 Other: Voiding Method Bedside Commode Diaper Incontinent # Voids 1 - Exam Patient seen and examined resting comfortably in bed, no acute distress Heart is regular rate and rhythm, normal S1-S2, no murmurs appreciated Lungs are clear to auscultation bilaterally No carotid bruits appreciated No lower extremity edema - Labs CBC & Chem 7: 01/21/19 03:52 01/21/19 03:52 Labs: Abnormal Lab Results - Last 24 Hours (Table) 01/21/19 01/21/19 01/21/19 Range/Units 12:01 17:00 20:35 POC Glucose (mg/dL) 175 H 165 H 214 H (75-99) mg/dL 01/22/19 Range/Units 05:55 POC Glucose (mg/dL) 186 H (75-99) mg/dL Assessment and Plan Plan: Assessment and plan #1 Altered mental status, possibly related to bradycardia versus TIA, head CT negative for hemorrhage #2 History of CVA #3 CAD status post CABG #4 Hypertension, #5 Dyslipidemia #Bilateral carotid atherosclerosis #7 Diabetes #8 Hypothyroidism #9 COPD Plan Patient has been advised to undergo implantation of a loop recorder, this will be performed tomorrow by Dr. Akhtar. DNP note has been reviewed, I agree with a documented findings and plan of care. Patient was seen and examined. <Keith Akhtar - Last Filed: 01/22/19 16:47> Subjective Elderly female who had a period of decreased consciousness/brief loss of consciousness while sitting. She became unresponsive and white. Subsequently she had some slurred slow speech. Daughter thought that her pulse was quite slow Patient is undergoing a neurologic workup following which I would like to impla nt a loop monitor. I feel this most likely represents a bradycardic event and her neurologic symptoms have been on account of hypoperfusion secondary bradycardia rather than a true cerebrovascular event Please proceed with MRI first and then subsequently a loop monitor will be implanted predischarge Objective - Vital Signs Vital signs: Vital Signs Temp 97.9 F 01/22/19 11:16 Pulse 61 01/22/19 11:16 Resp 16 01/22/19 11:16 BP 131/71 01/22/19 11:16 Pulse Ox 98 01/22/19 11:16 Intake & Output 01/21/19 01/22/19 01/22/19 18:59 06:59 18:59 Intake Total 720 240 240 Output Total 450 Balance 270 240 240 Weight 68.9 kg 69.9 kg Intake: Oral 720 240 240 Output: Urine 450 Other: Voiding Method Bedside Commode Diaper Incontinent # Voids 1 2 - Labs CBC & Chem 7: 01/21/19 03:52 01/21/19 03:52 Labs: Abnormal Lab Results - Last 24 Hours (Table) 01/21/19 01/21/19 01/22/19 Range/Units 17:00 20:35 05:55 POC Glucose (mg/dL) 165 H 214 H 186 H (75-99) mg/dL 01/22/19 Range/Units 12:15 POC Glucose (mg/dL) 211 H (75-99) mg/dL
--- NOTE | 2019-01-22 16:44 | P.PN ---
Progress Note - Text Progress Note Date: 01/22/19 Chief Complaint: Less responsive episode Interval history: This is a pleasant 83-year-old patient who follows with Dr. Ramirez. Rather extensive medical history to include coronary coronary artery disease, left- sided weakness from prior stroke, diabetes, blind in the right eye, hypertension, hyperlipidemia, hypothyroid, chronic pain, osteoarthritis, peripheral neuropathy, esophageal strictures without irritation, urinary incontinence. Patient was in the family gathering yesterday out at the back of the house. Sitting on a walker chair. Patient's grandson came over to her and found the patient to be not really responding patient is sitting up somewhat looking blank. There is no perspiration. No change in facial color such. No seizure activity. Patient just simply decreased responsive for about 5 minutes. It may be noted that it was 93F temperature outside yesterday and quite hot. Patient did not report any chest pain or palpitation. No new focal weakness. Patient was admitted for the same. Today-sitting up in a chair. Comfortable. No new symptoms Daughter at the bedside. Review of systems: Was done for constitutional, cardiovascular, GI, pulmonary. relevant finding as above Current medications are reviewed that include: Lipitor, Plavix, Physical examination: VITAL SIGNS: 97.5, 63, 16, 155/73, 98% room air GENERAL: Sitting up in a chair, awake. EYES: Blind in the right eye,l left eye normal. HEENT: External appearance of nose and ears normal, oral cavity grossly normal. NECK: JVD not raised; masses not palpable. HEART: First and second heart sounds are normal; no edema. LUNGS: Respiratory rate normal; clear to auscultation. ABDOMEN: Soft, nontender, liver spleen not palpable, no masses palpable. PSYCH: Alert and oriented x3; mood and affect normal. NEUROLOGICAL: Cranial nerves grossly intact; no facial asymmetry, some chronic weakness in the left side power 4 x 5 INVESTIGATIONS, reviewed in the clinical context White count 6.3, hemoglobin 11.7, potassium 4.1, BUN 20, creatinine 0.73 Troponin I 3 less than 0.012 TSH 2.0 Computed tomography scan brain-some chronic changes Chest x-ray film personally reviewed by me shows borderline cardiomegaly, some chronic infiltrate as per report EKG tracing personally reviewed by me shows normal sinus rhythm Assessment: -This is a 83-year-old patient with multiple comorbidities who was sitting out in a very warm temperature of 92F. Patient became decreased responsive about 5 minutes. No seizure activity was noted. No obvious arrhythmias been detected. They cannot be ruled out. Patient may simply have been dehydrated. -Coronary artery disease -Diabetes mellitus type 2 on oral hypoglycemic -Blind in the right eye -Essential hypertension -Hyperlipidemia -Hypothyroidism -Primary osteoarthritis -Diabetic peripheral neuropathy -Chronic urinary incontinence -Chronic gait dysfunction uses a walker Plan: Neurological workup is in place. Including an MRI. Also ordered SHIRLEY. Loop recorder will also be placed. Did speak to the nurse. She'll speak to Dr. Mukherjee who will discuss with neurologist and timing of this testing can be planned accordingly
[2019-01-22 17:29] LABS: Glucose,Whole Blood 220 mg/dL (75-99)
--- NOTE | 2019-01-22 18:28 | MR ---
EXAMINATION TYPE: MR brain wo con DATE OF EXAM: 01/22/2019 COMPARISON: CT 01/20/2019 at 3:37 PM HISTORY: TIA, Facial droop, Gait issues TECHNIQUE: Standard multiplanar, multisequence MRI departmental protocol. Multiplanar, multisequence sequences were acquired. Diffusion weighted imaging was performed. FINDINGS: There is no restricted diffusion to suggest acute or subacute infarction. There is no mass or mass effect. No focal encephalomalacia to suggest prior macrovascular infarction. There are a few tiny scattered T2 hyperintensities in the bilateral jacobo radiata and centrum semiovale. These are e ntirely nonspecific and relatively few in number for this age group. The vascular flow void pattern i s normal. The skeletal structures are negative. The paranasal sinuses and middle ear cavities and mastoid sinus air cells are clear. Orbits are negative for acute findings. IMPRESSION: NO ACUTE PROCESS.
[2019-01-22 21:43] LABS: Glucose,Whole Blood 141 mg/dL (75-99)
[2019-01-22] MEDS: ATORVASTATIN 40 MG TAB PO SCH (21:58)
--- NOTE | 2019-01-23 04:49 | EEG ---
ELECTROENCEPHALOGRAM REPORT DATE OF PROCEDURE: 01/22/2019 ELECTROENCEPHALOGRAM (EEG) REPORT: TECHNIQUE: A routine 18-channel EEG was performed with video using the 10/20 international electrode placement system. HISTORY: Patient brought to the ER after family noticed that she was less responsive, patient was staring off with a blank look. Remained like this for about 5 minutes. CURRENT MEDICATIONS: Vitamin B1, Minipress, multivitamin, metformin, Antivert and Tradjenta. STUDY DURATION: 24 minutes. FINDINGS: BACKGROUND: The background activity consisted of 8 to 9 Hz rhythmic waveforms symmetrically distributed over both posterior quadrants. ACTIVATION: Hyperventilation: Not performed. Photic stimulation: Mild symmetric driving seen. Sleep: Stages I and II sleep noted. ABNORMALITIES: None. Please note that 1 channel of this EEG was dedicated to EKG, it demonstrated a sinus rhythm. IMPRESSION: Normal EEG. No epileptiform activity was present. No seizures were recorded. MMODL / IJN: [id number] /
[2019-01-23 06:49] LABS: Glucose,Whole Blood 164 mg/dL (75-99)
[2019-01-23] MEDS: INSULIN ASPART (NovoLOG) 100 UNIT/ML VIAL SQ SCH ×4 (06:54→21:24)
[2019-01-23] MEDS: LEVOTHYROXINE 50 MCG TAB PO SCH (06:54)
[2019-01-23] MEDS: metFORMIN 500 MG TAB PO SCH ×2 (06:54→17:44)
[2019-01-23] MEDS: CLOPIDOGREL 75 MG TAB PO SCH (08:58)
[2019-01-23] MEDS: LINAGLIPTIN 5 MG TABLET PO SCH (08:59)
[2019-01-23] MEDS: amLODIPine 5 MG TAB PO SCH (08:59)
[2019-01-23] MEDS: LISINOPRIL 20 MG TAB PO SCH ×2 (08:59→21:23)
[2019-01-23] MEDS: PRAZOSIN 1 MG CAP PO SCH ×2 (08:59→21:23)
[2019-01-23] MEDS: FAMOTIDINE 20 MG TAB PO SCH (09:00)
[2019-01-23] MEDS ORDERED: SODIUM CHLORIDE 0.9% 500 ML 500 ML IV ONE (11:35)
[2019-01-23] MEDS ORDERED: LIDOCAINE 1% INJ 10MG/ML (20 ML MDV) ONE (11:39)
[2019-01-23] MEDS ORDERED: MIDAZOLAM (PF) 2 MG/2 ML VIAL IV ONE (11:42)
[2019-01-23] MEDS ORDERED: LIDOCAINE 1% INJ 10MG/ML (20 ML MDV) SQ ONE ×2 (11:45)
--- NOTE | 2019-01-23 12:10 | P.PCN ---
Preoperative Diagnosis: Loop monitor implant Primary physicians: Dr. Ramirez, Dr. Arevalo Rib Cloth Knitter: Dr. Akhtar Indication: Recurrent infrequent syncope, normal MRI of the brain, no embolic phenomenon seen Patient was brought to the EP lab in a fasting state. Written informed consent was obtained prior to the procedure. The left pectoral area was prepped and draped per protocol. Intravenous antibiotic was administered preoperatively. A subcutaneous Loop monitor was implanted successfully and the wound was closed per protocol. The device was programmed to detect significant domenic- arrhythmic and tachy-arrhythmic events, per protocol. Device and programming details: Programmed syncope protocol Patient underwent EP procedure under conscious sedation/moderate sedation under Dr. Akhtar's supervision, monitoring of the level of consciousness and physiologic parameters including but not limited to vital signs and oxygenation. Patient tolerated the procedure well without any acute complications. Start time: 1143 Stop time: 1202
[2019-01-23 12:34] LABS: Glucose,Whole Blood 154 mg/dL (75-99)
[2019-01-23] MEDS: HEPARIN SODIUM,PORCINE 5,000 UNIT/ML 1 ML VIAL SQ SCH ×2 (12:46→21:23)
[2019-01-23] MEDS: MULTIVITAMINS, THERA 1 EACH TAB PO SCH (12:51)
[2019-01-23] MEDS: THIAMINE 100 MG TAB PO SCH (12:51)
[2019-01-23] MEDS: CHOLECALCIFEROL 1,000 UNIT TAB PO SCH (14:22)
[2019-01-23] MEDS: SODIUM CHLORIDE 0.9% 1,000 ML IV SCH (14:23)
--- NOTE | 2019-01-23 14:23 | P.PN ---
Progress Note - Text Progress Note Date: 01/23/19 SUBJECTIVE/INTERVAL EVENTS: No overnight events. Patient sitting on a chair next to her bed. Not at bedside this morning. Patient denies any headache nausea vomiting numbness tingling weakness. PHYSICAL EXAMINATION: VITAL SIGNS: temperature 97.3 pulse rate 68 respiratory rate 16 blood pressure 184/77 which went down to 159/83 hours later, 97% O2 sat on room air. Gen NAD Pleasant and cooperative HEENT NCAT Sclera without icterus O/P clear, right eye closed at baseline, chronic from blindness Abd Soft NTND Ext Warm to touch No edema Neuro MS A+Ox4 Normal fluency Able to follow all commands CN L pupil round and reactive to light, difficult to assess visual field but it appears that there is some deficit, left eye EOMI no nystagmus, No facial asymmetry Hearing intact to finger rub bilaterally Speech not dysarthric Equal elevation of palate Tongue midline Sym shrug and SCM bilaterally Motor slightly decreased bulk/normal tone. No pronator or tremors Strength 4+/5 in right upper and lower extremity, 4/5 in left upper and lower extremity Sens reports sensation of "stickiness" in left V1 to V3 has resolved, decreased to pinprick and temperature in left arm and leg. Coord dysmetria on finger to nose but patient also with right eye blindness some left vision deficit at baseline DTRs 2+/4 sym throughout Toes downgoing bilaterally Gait walks with a walker. Narrow-based and stable Diagnostics: MRI brain w/o contrast 01/22/19: No acute process. No restricted diffusion to suggest acute or subacute infarct. There is no mass or mass effect. He is tiny scattered T2 hyperintensities in the bilateral jacobo radiata and Centrum semi- Spring. Nonspecific. EEG 01/22/2019: Normal EEG. No epileptiform activity was present. No seizures were recorded. Assessment and plan: Ms. Suresh is a 83-year-old woman with past medical history of coronary artery disease, diabetes, right eye blindness, hyperlipidemia, hypertension, hypothyroidism, stroke versus TIA (with residual left arm and leg weakness, and possible episodes of possible aphagia), presented with symptoms of decreased responsiveness, consulting neurology for concerns of TIA. Patient was previously evaluated by neurology in June 2018, at which time a full stroke workup was recommended. No MRI brain available from June 2018 but MRI brain from April 2018 did not show any acute stroke. CTA of neck performed in January 2018 showed focal stenosis approximately 60% and left ICA and right ICA. On today's evaluation, patient with mild left sided weakness compared to the right, which was present during last evaluation, but patient also with sensation deficits with increased pinprick and cold sensation on the left face arm and leg. Carotid ultrasound done during this admission is showing plaquing in bilateral carotid bifurcations, where very severe stenosis is not excluded. Patient's symptoms of dizziness/spinning sensation and some blurred vision could be from a posterior circulation stroke, but patient with no nystagmus and patient at this time with resolved symptoms. However, as patient with newly found sensation deficits, obtained MRI brain. There is no structural indication of the patient having had acute or subacute or old infarct. Patient could have had MRI negative stroke. Echocardiogram from June 2018 showed moderately dilated left atrium, ejection fraction 55-60%, moderate concentric left ventricular hypertrophy. Recommendations: 1. Patient pending a recorder placement today. Cardiology was consulted for possible loss of consciousness. Telemetry has not shown any arrhythmia so far. 2. Patient has not gotten her echocardiogram yet. Her most recent echocardiogram in June 2018. As such, patient can get echocardiogram as outpatient. 3. Continue Plavix and atorvastatin 4. Neurology will sign off
--- NOTE | 2019-01-23 14:43 | P.PN ---
Subjective Progress Note Date: 01/23/19 Patient is an 82-year-old female with a past medical history of CAD status post CABG, diabetes, hypertension, COPD, dyslipidemia, hypothyroidism, and CVA who presented to the emergency department with altered mental status. Patient does not recall the events that brought her into the hospital. Family reports that they were at a cookout the patient became unresponsive appeared "white". Her daughter checked her pulse and it was" very slow". She was sitting in the chair with her eyes closed, not responding to family for about 5 minutes. After that her speech was slow and slurred. She has not had any episodes like this in the past. She has had one fall over the last year and it was due to tripping on her walker. She was brought to the emergency department. Upon admission her blood pressure was 143/59 and her heart rate was 87bpm. Blood sugar was 121. Head CT showed cerebral atrophy, no intracranial hemorrhage, no changes from prior CT. patient had no significant bradycardia noted on the monitor. No evidence of any tachyarrhythmias. Hemodynamically stable today. Dr. Akhtar did have a lengthy discussion with the patient and her family today recommending that she undergo implantation of a loop recorder. This will be performed tomorrow by Dr. Akhtar. 01/23/2019 Patient was seen and examined this morning, overall doing well. Blood pressure 158/80 with a heart rate in the 60s, 99% on room air. Objective - Vital Signs Vital signs: Vital Signs Temp 97.3 F L 01/23/19 09:00 Pulse 64 01/23/19 12:25 Resp 16 01/23/19 12:25 BP 159/80 01/23/19 12:25 Pulse Ox 99 01/23/19 12:25 Intake & Output 01/22/19 01/23/19 01/23/19 18:59 06:59 18:59 Intake Total 240 740 Balance 240 740 Weight 71.6 kg Intake: IV 100 Oral 240 640 Other: Voiding Method Bedside Commode Diaper Incontinent # Voids 2 1 1 # Bowel Movements 0 - Exam Patient seen and examined resting comfortably in bed, no acute distress Heart is regular rate and rhythm, normal S1-S2, no murmurs appreciated Lungs are clear to auscultation bilaterally No carotid bruits appreciated No lower extremity edema - Labs CBC & Chem 7: 01/21/19 03:52 01/21/19 03:52 Labs: Abnormal Lab Results - Last 24 Hours (Table) 01/22/19 01/22/19 01/23/19 Range/Units 17:28 21:38 06:47 POC Glucose (mg/dL) 220 H 141 H 164 H (75-99) mg/dL 01/23/19 Range/Units 12:32 POC Glucose (mg/dL) 154 H (75-99) mg/dL Assessment and Plan Plan: Assessment and plan #1 Altered mental status, possibly related to bradycardia versus TIA, head CT negative for hemorrhage #2 History of CVA #3 CAD status post CABG #4 Hypertension, #5 Dyslipidemia #Bilateral carotid atherosclerosis #7 Diabetes #8 Hypothyroidism #9 COPD Plan Patient underwent implantation of a loop recorder today. From our perspective she may be able to be discharged home once cleared by primary, we'll make her a follow-up appointment in the office post discharge. DNP note has been reviewed, I agree with a documented findings and plan of care. Patient was seen and examined.
[2019-01-23 15:12] VITALS: BMI 30.8
[2019-01-23 16:55] LABS: Glucose,Whole Blood 207 mg/dL (75-99)
[2019-01-23 21:22] LABS: Glucose,Whole Blood 102 mg/dL (75-99)
[2019-01-23] MEDS: ATORVASTATIN 40 MG TAB PO SCH (21:23)
--- NOTE | 2019-01-24 00:10 | P.PN ---
Progress Note - Text Progress Note Date: 01/23/19 Chief Complaint: Less responsive episode Interval history: This is a pleasant 83-year-old patient who follows with Dr. Ramirez. Rather extensive medical history to include coronary coronary artery disease, left- sided weakness from prior stroke, diabetes, blind in the right eye, hypertension, hyperlipidemia, hypothyroid, chronic pain, osteoarthritis, peripheral neuropathy, esophageal strictures without irritation, urinary incontinence. Patient was in the family gathering yesterday out at the back of the house. Sitting on a walker chair. Patient's grandson came over to her and found the patient to be not really responding patient is sitting up somewhat looking blank. There is no perspiration. No change in facial color such. No seizure activity. Patient just simply decreased responsive for about 5 minutes. It may be noted that it was 93F temperature outside yesterday and quite hot. Patient did not report any chest pain or palpitation. No new focal weakness. Patient was admitted for the same. Today-sitting up in a chair. Comfortable. No new symptoms. Discussed with Dr. Mukherjee from oncology. Presentation felt to be from arrhythmia. Loop recorder was placed today. Does not need felt for any SHIRLEY. Or MRI for that matter. Review of systems: Was done for constitutional, cardiovascular, GI, pulmonary. relevant finding as above Current medications are reviewed that include: Lipitor, Plavix, Physical examination: VITAL SIGNS: 97.3, 68, 16, 184/77, 97% room air GENERAL: Sitting up in a chair, comfortable EYES: Blind in the right eye,l left eye normal. HEENT: External appearance of nose and ears normal, oral cavity grossly normal. NECK: JVD not raised; masses not palpable. HEART: First and second heart sounds are normal; no edema. LUNGS: Respiratory rate normal; clear to auscultation. ABDOMEN: Soft, nontender, liver spleen not palpable, no masses palpable. PSYCH: Alert and oriented x3; mood and affect normal. NEUROLOGICAL: Cranial nerves grossly intact; no facial asymmetry, some chronic weakness in the left side power 4 x 5 INVESTIGATIONS, reviewed in the clinical context Accu-Cheks from today noted White count 6.3, hemoglobin 11.7, potassium 4.1, BUN 20, creatinine 0.73 Troponin I 3 less than 0.012 TSH 2.0 Computed tomography scan brain-some chronic changes Chest x-ray film personally reviewed by me shows borderline cardiomegaly, some chronic infiltrate as per report EKG tracing personally reviewed by me shows normal sinus rhythm Assessment: -Episode of unresponsiveness felt to be bradycardia. Patient is a Loop monitor in place. -Coronary artery disease -Diabetes mellitus type 2 on oral hypoglycemic -Blind in the right eye -Essential hypertension -Hyperlipidemia -Hypothyroidism -Primary osteoarthritis -Diabetic peripheral neuropathy -Chronic urinary incontinence -Chronic gait dysfunction uses a walker Plan: Care was discussed Dr. Colunga and from cardiology. He did place a Loop recorder. Did not feel any need for MRI ordered SHIRLEY. Given the findings. records analysis manager/nephrology social worker looking into ECF placement. Other medications to continue.
[2019-01-24 04:39] VITALS: RESP 18
[2019-01-24 04:44] LABS: Glucose,Whole Blood 149 mg/dL (75-99)
[2019-01-24 06:18] LABS: Glucose,Whole Blood 123 mg/dL (75-99)
[2019-01-24] MEDS: INSULIN ASPART (NovoLOG) 100 UNIT/ML VIAL SQ SCH ×2 (06:42→12:38)
[2019-01-24] MEDS: LEVOTHYROXINE 50 MCG TAB PO SCH (06:42)
[2019-01-24] MEDS: metFORMIN 500 MG TAB PO SCH (06:42)
[2019-01-24] MEDS: PRAZOSIN 1 MG CAP PO SCH (10:14)
[2019-01-24] MEDS: THIAMINE 100 MG TAB PO SCH (10:14)
[2019-01-24] MEDS: LINAGLIPTIN 5 MG TABLET PO SCH (10:14)
[2019-01-24] MEDS: amLODIPine 5 MG TAB PO SCH (10:14)
[2019-01-24] MEDS: CHOLECALCIFEROL 1,000 UNIT TAB PO SCH (10:14)
[2019-01-24] MEDS: CLOPIDOGREL 75 MG TAB PO SCH (10:14)
[2019-01-24] MEDS: FAMOTIDINE 20 MG TAB PO SCH (10:14)
[2019-01-24] MEDS: LISINOPRIL 20 MG TAB PO SCH (10:15)
[2019-01-24] MEDS: MULTIVITAMINS, THERA 1 EACH TAB PO SCH (10:15)
[2019-01-24] MEDS: HEPARIN SODIUM,PORCINE 5,000 UNIT/ML 1 ML VIAL SQ SCH (10:15)
[2019-01-24 11:43] VITALS: TEMP 97.8
[2019-01-24 11:44] VITALS: PULSE 72
[2019-01-24 12:29] VITALS: BP 158/72
[2019-01-24] MEDS: SODIUM CHLORIDE 0.9% 1,000 ML IV SCH (12:39)
[2019-01-24 12:52] LABS: Glucose,Whole Blood 189 mg/dL (75-99)
--- NOTE | 2019-01-24 14:42 | P.PN ---
Subjective Progress Note Date: 01/24/19 Patient is an 82-year-old female with a past medical history of CAD status post CABG, diabetes, hypertension, COPD, dyslipidemia, hypothyroidism, and CVA who presented to the emergency department with altered mental status. Patient does not recall the events that brought her into the hospital. Family reports that they were at a cookout the patient became unresponsive appeared "white". Her daughter checked her pulse and it was" very slow". She was sitting in the chair with her eyes closed, not responding to family for about 5 minutes. After that her speech was slow and slurred. She has not had any episodes like this in the past. She has had one fall over the last year and it was due to tripping on her walker. She was brought to the emergency department. Upon admission her blood pressure was 143/59 and her heart rate was 87bpm. Blood sugar was 121. Head CT showed cerebral atrophy, no intracranial hemorrhage, no changes from prior CT. patient had no significant bradycardia noted on the monitor. No evidence of any tachyarrhythmias. Hemodynamically stable today. Dr. Akhtar did have a lengthy discussion with the patient and her family today recommending that she undergo implantation of a loop recorder. This will be performed tomorrow by Dr. Akhtar. 01/23/2019 Patient was seen and examined this morning, overall doing well. Blood pressure 158/80 with a heart rate in the 60s, 99% on room air. 01/24/2019 Patient seen and examined this morning, continues to do well. Awaiting placement to ECF. Objective - Vital Signs Vital signs: Vital Signs Temp 97.8 F 01/24/19 11:41 Pulse 68 01/24/19 11:41 Resp 18 01/24/19 11:41 BP 158/72 01/24/19 12:29 Pulse Ox 98 01/24/19 11:41 Intake & Output 01/23/19 01/24/19 01/24/19 18:59 06:59 18:59 Intake Total 1140 60 Balance 1140 60 Weight 71.6 kg 71.5 kg Intake: IV 100 Oral 1040 60 Other: Voiding Method Bedside Commode Toilet Toilet Diaper Incontinent # Voids 1 2 2 # Bowel Movements 0 - Exam Patient seen and examined resting comfortably in bed, no acute distress Heart is regular rate and rhythm, normal S1-S2, no murmurs appreciated Lungs are clear to auscultation bilaterally No carotid bruits appreciated No lower extremity edema - Labs CBC & Chem 7: 01/21/19 03:52 01/21/19 03:52 Labs: Abnormal Lab Results - Last 24 Hours (Table) 01/23/19 01/23/19 01/24/19 Range/Units 16:54 21:14 04:42 POC Glucose (mg/dL) 207 H 102 H 149 H (75-99) mg/dL 01/24/19 01/24/19 Range/Units 06:17 12:32 POC Glucose (mg/dL) 123 H 189 H (75-99) mg/dL Assessment and Plan Plan: Assessment and plan #1 Altered mental status, possibly related to bradycardia versus TIA, head CT negative for hemorrhage #2 History of CVA #3 CAD status post CABG #4 Hypertension, #5 Dyslipidemia #Bilateral carotid atherosclerosis #7 Diabetes #8 Hypothyroidism #9 COPD Plan Patient underwent implantation of a loop recorder today. From our perspective she may be able to be discharged home once cleared by primary, we'll make her a follow-up appointment in the office post discharge. DNP note has been reviewed, I agree with a documented findings and plan of care. Patient was seen and examined.
--- NOTE | 2019-01-28 23:02 | P.DS ---
Providers Date of admission: 01/22/19 15:14 Expected date of discharge: 01/28/19 Attending physician: Elan Nagel Consults: 01/21/19 09:39 Consult Physician Routine Consulting Provider: Sheila Hobbs Reason/Comments: TIA Do you want consulting provider notified?: Yes Primary care physician: [facility] Course: Interval history: This is a pleasant 83-year-old patient who follows with Dr. Ramirez. Rather extensive medical history to include coronary coronary artery disease, left- sided weakness from prior stroke, diabetes, blind in the right eye, hypertens ion, hyperlipidemia, hypothyroid, chronic pain, osteoarthritis, peripheral neuropathy, esophageal strictures without irritation, urinary incontinence. Patient was in the family gathering yesterday out at the back of the house. Sitting on a walker chair. Patient's grandson came over to her and found the patient to be not really responding patient is sitting up somewhat looking blank. There is no perspiration. No change in facial color such. No seizure activity. Patient just simply decreased responsive for about 5 minutes. It may be noted that it was 93F temperature outside yesterday and quite hot. Patient did not report any chest pain or palpitation. No new focal weakness. Patient was admitted for the same. Patient was seen both by neurology and cardiology. Discussed with Dr. Janice schwartz. Patient was noted to have significant bradycardia on the monitor. It was felt to be admitted via that was causing her symptoms. Her loop recorder was placed. Neuro workup was unremarkable Consultation: Dr. Sebastian Gutierrez from cardiology Dr. Hobbs the neurology Physical examination: VITAL SIGNS: 97.8, 68, 18, 158/72, 98% room air GENERAL: Sitting up in a chair, comfortable EYES: Blind in the right eye,l left eye normal. HEENT: External appearance of nose and ears normal, oral cavity grossly normal. NECK: JVD not raised; masses not palpable. HEART: First and second heart sounds are normal; no edema. LUNGS: Respiratory rate normal; clear to auscultation. ABDOMEN: Soft, nontender, liver spleen not palpable, no masses palpable. PSYCH: Alert and oriented x3; mood and affect normal. NEUROLOGICAL: Cranial nerves grossly intact; no facial asymmetry, some chronic weakness in the left side power 4 x 5 INVESTIGATIONS, reviewed in the clinical context Accu-Cheks from today noted White count 6.3, hemoglobin 11.7, potassium 4.1, BUN 20, creatinine 0.73 Troponin I 3 less than 0.012 TSH 2.0 Computed tomography scan brain-some chronic changes Chest x-ray film personally reviewed by me shows borderline cardiomegaly, some chronic infiltrate as per report EKG tracing personally reviewed by me shows normal sinus rhythm MRI of the brain-unremarkable EEG-no seizure activity Assessment: -Episode of unresponsiveness felt to be bradycardia. Patient is a Loop monitor in place. -Coronary artery disease -Diabetes mellitus type 2 on oral hypoglycemic -Blind in the right eye -Essential hypertension -Hyperlipidemia -Hypothyroidism -Primary osteoarthritis -Diabetic peripheral neuropathy -Chronic urinary incontinence -Chronic gait dysfunction uses a walker Disposition: Home with family Patient Condition at Discharge: Good Plan - Discharge Summary Discharge Rx Participant: No New Discharge Prescriptions: Continue Benazepril HCl 20 mg PO BID Clopidogrel Bisulfate [Plavix] 75 mg PO DAILY Cholecalciferol [Vitamin D3 (25 Mcg = 1000 Iu)] 3,000 unit PO DAILY amLODIPine BESYLATE [Norvasc] 5 mg PO BID Atorvastatin Calcium [Lipitor] 40 mg PO HS Levothyroxine Sodium [Synthroid] 50 mcg PO DAILY Meclizine HCl 12.5 mg PO Q8H PRN PRN Reason: Vertigo Prazosin [Minipress] 1 mg PO BID Famotidine [Pepcid] 20 mg PO DAILY Multivitamins, Thera [Multivitamin (formulary)] 1 each PO DAILY@1200 #30 tab Thiamine [Vitamin B-1] 100 mg PO DAILY@1200 #30 tab Cranberry Fruit Extract [Cranberry] 1,000 mg PO DAILY sitaGLIPtin [Januvia] 50 mg PO DAILY metFORMIN HCL 500 mg PO BID glipiZIDE [Glucotrol] 10 mg PO QAM #30 tab glipiZIDE [Glucotrol] 5 mg PO HS #30 tab Discharge Medication List Benazepril HCl 20 mg PO BID 11/05/13 [History] Clopidogrel Bisulfate [Plavix] 75 mg PO DAILY 11/05/13 [History] Cholecalciferol [Vitamin D3 (25 Mcg = 1000 Iu)] 3,000 unit PO DAILY 02/05/15 [History] Atorvastatin Calcium [Lipitor] 40 mg PO HS 02/18/16 [History] amLODIPine BESYLATE [Norvasc] 5 mg PO BID 02/18/16 [History] Levothyroxine Sodium [Synthroid] 50 mcg PO DAILY 01/07/17 [History] Meclizine HCl 12.5 mg PO Q8H PRN 01/07/17 [History] Famotidine [Pepcid] 20 mg PO DAILY 07/27/17 [History] Prazosin [Minipress] 1 mg PO BID 07/27/17 [History] Multivitamins, Thera [Multivitamin (formulary)] 1 each PO DAILY@1200 #30 tab 02/02/18 [Rx] Thiamine [Vitamin B-1] 100 mg PO DAILY@1200 #30 tab 02/02/18 [Rx] Cranberry Fruit Extract [Cranberry] 1,000 mg PO DAILY 05/04/18 [History] metFORMIN HCL 500 mg PO BID 06/16/18 [History] sitaGLIPtin [Januvia] 50 mg PO DAILY 06/16/18 [History] glipiZIDE [Glucotrol] 5 mg PO HS #30 tab 06/19/18 [Rx] glipiZIDE [Glucotrol] 10 mg PO QAM #30 tab 06/19/18 [Rx] Follow up Appointment(s)/Referral(s): [facility] [Provider Group] - 01/29/19 2:00 pm (Monday Device check only) Corrie Arevalo MD [Family Provider] - 02/08/19 3:15 pm (Monday -previously scheduled appointment) Esvin Ramirez DO [Primary Care Provider] - 02/05/19 3:00 pm (Monday -previously scheduled appointment) Vinod Alvarez [NON-STAFF] - Patient Instructions/Handouts: Transient Ischemic Attack (DC), Cardiac Loop Recorder Insertion (DC) Discharge Disposition: HOME WITH HOME HEALTH SERVICES
== END 2019-01-24 13:36 | disposition home health service (06) | DRG 310 ==
LOC: EC 15:07 → 3SCARD 17:44 → OBSVTOIN 01-22 15:14
PROVIDERS: ADMIT Hospitalist; ATTEND Hospitalist
DX: R00.1 Bradycardia, unspecified (principal); E11.42 Type 2 diabetes mellitus with diabetic polyneuropathy; E86.0 Dehydration; J44.9 Chronic obstructive pulmonary disease, unspecified; E11.319 Type 2 diabetes mellitus with unspecified diabetic retinopathy without macular edema; I11.9 Hypertensive heart disease without heart failure; I69.398 Other sequelae of cerebral infarction; E03.9 Hypothyroidism, unspecified; E78.5 Hyperlipidemia, unspecified; G89.4 Chronic pain syndrome; H54.61 Unqualified visual loss, right eye, normal vision left eye; I25.10 Atherosclerotic heart disease of native coronary artery without angina pectoris; I65.23 Occlusion and stenosis of bilateral carotid arteries; K21.9 Gastro-esophageal reflux disease without esophagitis; M19.91 Primary osteoarthritis, unspecified site; R29.703 NIHSS score 3; R32 Unspecified urinary incontinence; K44.9 Diaphragmatic hernia without obstruction or gangrene; R26.9 Unspecified abnormalities of gait and mobility; G56.03 Carpal tunnel syndrome, bilateral upper limbs; Z79.02 Long term (current) use of antithrombotics/antiplatelets; Z79.84 Long term (current) use of oral hypoglycemic drugs; Z79.890 Hormone replacement therapy; Z79.899 Other long term (current) drug therapy; Z91.041 Radiographic dye allergy status; Z88.6 Allergy status to analgesic agent; Z91.013 Allergy to seafood; Z90.710 Acquired absence of both cervix and uterus; Z95.1 Presence of aortocoronary bypass graft; Z90.49 Acquired absence of other specified parts of digestive tract; Z98.42 Cataract extraction status, left eye; Z98.41 Cataract extraction status, right eye; Z96.1 Presence of intraocular lens; Z87.440 Personal history of urinary (tract) infections; Z91.81 History of falling; Z80.9 Family history of malignant neoplasm, unspecified; Z80.51 Family history of malignant neoplasm of kidney; Z80.0 Family history of malignant neoplasm of digestive organs
CPT/HCPCS: 33285; 36415; 70450; 70551; 71046; 80048; 80053; 81001; 82550; 82553; 84443; 84484; 85025; 85610; 85730; 93005; 93306; 93880; 95816; 96361; 96374; 99285

== ENCOUNTER 2019-05-24 15:14 | Inpatient (IN) | payer MEDICARE, OTHER ==
--- NOTE | 2019-05-24 15:39 | ED ---
General Adult HPI - General Chief complaint: Extremity Problem,Nontraumatic Stated complaint: near syncope Time Seen by Provider: 05/24/19 15:17 Source: patient Mode of arrival: EMS Limitations: no limitations - History of Present Illness Initial comments: Dictation was produced using [employer] dictation software. please excuse any gramma tical, word or spelling errors. Chief Complaint: 84-year-old female presents with right arm pain. History of Present Illness: 84-year-old female she presents today with right arm pain. Patient states she had a blood draw that was performed several days ago. Ever since the blood draw she's been having right biceps pain. Patient states her pain is exacerbated with movement of the right upper extremity. She reports that the pain radiates to her right shoulder. Patient feels plus her symptoms when she lifts her arm above her head especially when she is getting dressed. She has no other acute complaints at this time. She reports to me that she has chronic lower extremity pain and chronic left thoracic back pain but she is not concerned about this at this time. The ROS documented in this emergency department record has been reviewed and confirmed by me. Those systems with pertinent positive or negative responses have been documented in the HPI. All other systems are other negative and/or noncontributory. PHYSICAL EXAM: General Impression: Alert and oriented x3, not in acute distress HEENT: Normocephalic atraumatic, extra-ocular movements intact, pupils equal and reactive to light bilaterally, mucous membranes moist. Cardiovascular: Heart regular rate and rhythm, S1&S2 audible, no murmurs, rubs or gallops Chest: Lungs clear to auscultation bilaterally, no rhonchi, no wheeze, no rales Abdomen: Bowel sounds present, abdomen soft, non-tender, non-distended, no organomegaly Musculoskeletal: Pulses present and equal in all extremities, no peripheral edema Extremity: Tenderness to palpation over the right biceps at the mid humerus level. no palpable mass over the biceps. No skin changes. Sensation to the hand intact. Motor: no focal deficits noted Neurological: CN II-XII grossly intact, no focal motor or sensory deficits noted Skin: Intact with no visualized rashes Psych: Normal affect and mood ED course: 84-old feel presents with right arm pain after blood draw to the right upper extremity. Vital upon arrival are within acceptable limits. Patie nt is well-appearing at this time. Daughter and were at bedside. More history was obtained from them. Daughter reports that she was one who called the ambulance. Proximally prior to transportation to the emergency department patient had episode of "spacing out" for proximally 10 seconds. Patient has an implanted heart monitor. Daughter was concerned patient was having some sort of arrhythmia. Daughter was seen sitting in a chair were she had her eyes open but was unresponsive approximately 10 seconds. Humerus x-ray, shoulder x-ray and chest x-ray shows no acute processes. Medic ations were reviewed. She is not on any rate controlling medications at this time. Presentation consistent with syncope. There is concern that patient's syncope was caused by cardiomyopathy. Laboratory evaluation was obtained. CBC unremarkable. Metabolic panel shows magnesium 1.2. No other abnormalities found. Given patient's degree of symptoms and at about derangement that patient admitted with consultation to cardiology. EKG interpretation: Ventricular rate 59, sinus bradycardia,. Interval 156, QS 100, QTC 459. No [place] prolongation, no QTC prolongation, no ST or T-wave changes noted. EKG compared to 2018 showing no changes. Overall, this EKG is unremarkable - Related Data Home Medications Medication Instructions Recorded Confirmed Benazepril HCl 20 mg PO BID 11/05/13 01/20/19 Clopidogrel Bisulfate [Plavix] 75 mg PO DAILY 11/05/13 01/20/19 Cholecalciferol [Vitamin D3 (25 3,000 unit PO DAILY 02/05/15 01/20/19 Mcg = 1000 Iu)] Atorvastatin Calcium [Lipitor] 40 mg PO HS 02/18/16 01/20/19 amLODIPine BESYLATE [Norvasc] 5 mg PO BID 02/18/16 01/20/19 Levothyroxine Sodium [Synthroid] 50 mcg PO DAILY 01/07/17 01/20/19 Meclizine HCl 12.5 mg PO Q8H PRN 01/07/17 01/20/19 Famotidine [Pepcid] 20 mg PO DAILY 07/27/17 01/20/19 Prazosin [Minipress] 1 mg PO BID 07/27/17 01/20/19 Cranberry Fruit Extract [Cranberry] 1,000 mg PO DAILY 05/04/18 01/20/19 metFORMIN HCL 500 mg PO BID 06/16/18 01/20/19 sitaGLIPtin [Januvia] 50 mg PO DAILY 06/16/18 01/20/19 Previous Rx's Medication Instructions Recorded Multivitamins, Thera [Multivitamin 1 each PO DAILY@1200 #30 tab 02/02/18 (formulary)] Thiamine [Vitamin B-1] 100 mg PO DAILY@1200 #30 tab 02/02/18 glipiZIDE [Glucotrol] 5 mg PO HS #30 tab 06/19/18 glipiZIDE [Glucotrol] 10 mg PO QAM #30 tab 06/19/18 Allergies Allergy/AdvReac Type Severity Reaction Status Date / Time aspirin Allergy Rash/Hives Verified 05/24/19 15:24 fish derived Allergy Rash/Hives Verified 05/24/19 15:24 Iodinated Contrast Media Allergy Rash/Hives Verified 05/24/19 15:24 [Iodinated Contrast Media - IV Dye] Iodine and Iodide Containing Allergy Rash/Hives Verified 05/24/19 15:24 Produc shellfish derived [Shellfish] Allergy Rash/Hives Verified 05/24/19 15:24 Review of Systems ROS Statement: Those systems with pertinent positive or pertinent negative responses have been documented in the HPI. ROS Other: All systems not noted in ROS Statement are negative. Past Medical History Past Medical History: Coronary Artery Disease (CAD), Chest Pain / Angina, CVA/TIA, Diabetes Mellitus, Eye Disorder, GERD/Reflux, Hyperlipidemia, Hypertension, Osteoarthritis (OA), Syncope, Thyroid Disorder Additional Past Medical History / Comment(s): CVA-1996 arm and L leg weakness, NIDDM type II, dysphagia, esophageal strictures with dilations, hiatal hernia, chronic pain syndrome (generalized pain), hypothyroidism, peripheral neuropathy, bilateral hand numbness and tingling, bilateral carpal tunnel syndrome, anemia, Diabetic Retinopathy, blind in R eye, UTIs, urinatry leakage, sinus problems., uses walker.pt stated recent fall/had scalp laceration and niall removed 01-29-18. History of Any Multi-Drug Resistant Organisms: None Reported Past Surgical History: Bladder Surgery, Cholecystectomy, Coronary Bypass/CABG, Heart Catheterization, Hysterectomy Additional Past Surgical History / Comment(s): CABG-2007, Ccath 2007, multiple EGDs/dilations with biopsies, COLONOSCOPY. Cataracts, D&C, bladder suspension. Past Anesthesia/Blood Transfusion Reactions: No Reported Reaction, Motion Sickness, Postoperative Nausea & Vomiting (PONV) Past Psychological History: No Psychological Hx Reported Smoking Status: Never smoker Past Alcohol Use History: None Reported Past Drug Use History: None Reported - Past Family History Father Family Medical History: Liver Disease Additional Family Medical History / Comment(s): Father of cirrhosis. He was a drinker. Mother Family Medical History: Unable to Obtain Additional Family Medical History / Comment(s): Pt states she does not know her mother's medical history. Son(s) Family Medical History: Unable to Obtain, Renal Disease Daughter(s) Family Medical History: Cancer General Exam Limitations: no limitations Course Vital Signs 05/24/19 05/24/19 15: 16:00 Temperature 97.6 F Pulse Rate 64 58 L Respiratory 18 19 Rate Blood Pressure 127/60 137/66 O2 Sat by Pulse 97 99 Oximetry Medical Decision Making - Lab Data Result diagrams: 05/24/19 16:05 05/24/19 16:05 Lab Results 05/24/19 05/24/19 Range/Units 16:05 16:05 WBC 6.6 (3.8-10.6) k/uL RBC 3.67 L (3.80-5.40) m/uL Hgb 11.2 L (11.4-16.0) gm/dL Hct 33.2 L (34.0-46.0) % MCV 90.5 (80.0-100.0) fL MCH 30.4 (25.0-35.0) pg MCHC 33.6 (31.0-37.0) g/dL RDW 13.4 (11.5-15.5) % Plt Count 211 (150-450) k/uL Neutrophils % 79 % Lymphocytes % 13 % Monocytes % 5 % Eosinophils % 2 % Basophils % 0 % Neutrophils # 5.2 (1.3-7.7) k/uL Lymphocytes # 0.9 L (1.0-4.8) k/uL Monocytes # 0.3 (0-1.0) k/uL Eosinophils # 0.1 (0-0.7) k/uL Basophils # 0.0 (0-0.2) k/uL Sodium 140 (137-145) mmol/L Potassium 4.3 (3.5-5.1) mmol/L Chloride 108 H (98-107) mmol/L Carbon Dioxide 24 (22-30) mmol/L Anion Gap 8 mmol/L BUN 21 H (7-17) mg/dL Creatinine 0.94 (0.52-1.04) mg/dL Est GFR (CKD-EPI)AfAm 65 (>60 ml/min/1.73 sqM) Est GFR (CKD-EPI)NonAf 56 (>60 ml/min/1.73 sqM) Glucose 170 H (74-99) mg/dL Calcium 9.5 (8.4-10.2) mg/dL Magnesium 1.2 L (1.6-2.3) mg/dL Creatine Kinase 113 (30-135) U/L Disposition Clinical Impression: Syncope, Arm pain Disposition: ADMITTED IP TO THIS [facility] Condition: Fair Referrals: Esvin Ramirez DO [Primary Care Provider] - 1-2 days Decision Time: 17:01
[2019-05-24 16:24] LABS: Basophils % (A) 0 %; Eosinophils # (A) 0.1 k/uL (0-0.7); Eosinophils % (A) 2 %; HCT 33.2 % (34.0-46.0); HGB 11.2 gm/dL (11.4-16.0); Lymphocytes # (A) 0.9 k/uL (1.0-4.8); Lymphocytes % (A) 13 %; MCH 30.4 pg (25.0-35.0); MCHC 33.6 g/dL (31.0-37.0); MCV 90.5 fL (80.0-100.0); Mean Platelet Volume 7.5; Monocytes # (A) 0.3 k/uL (0-1.0); Monocytes % (A) 5 %; Neutrophils # (A) 5.2 k/uL (1.3-7.7); Neutrophils % (A) 79 %; Platelet Count 211 k/uL (150-450); RBC 3.67 m/uL (3.80-5.40); RDW 13.4 % (11.5-15.5); WBC 6.6 k/uL (3.8-10.6)
--- NOTE | 2019-05-24 16:30 | XR ---
EXAMINATION TYPE: XR chest 2V DATE OF EXAM: 05/24/2019 COMPARISON: 01/20/2019 HISTORY: Shortness of breath TECHNIQUE: Frontal and lateral views of the chest are obtained. FINDINGS: Scattered senescent parenchymal changes noted. No evidence for infiltrate. No evidence for atelectasis. Heart size is stable. Mediastinal structures are stable and grossly unremarkable. No evidence for hilar prominence. Degenerative changes dorsal spine. IMPRESSION: 1. No evidence for acute pulmonary disease.
--- NOTE | 2019-05-24 16:32 | XR ---
EXAMINATION TYPE: XR shoulder complete RT DATE OF EXAM: 05/24/2019 COMPARISON: NONE HISTORY: Right arm pain TECHNIQUE: 3 views FINDINGS: There is some spurring at the glenohumeral joint. I see no fracture nor dislocation. There is spurring at the greater tuberosity of the humerus. IMPRESSION: Hypertrophic spurring. Calcification at the greater tuberosity could relate to calcific t endinitis. No fracture seen.
[2019-05-24 16:33] LABS: Calcium 9.5 mg/dL (8.4-10.2); Magnesium 1.2 mg/dL (1.6-2.3); Potassium 4.3 mmol/L (3.5-5.1)
--- NOTE | 2019-05-24 16:33 | XR ---
EXAMINATION TYPE: XR humerus RT DATE OF EXAM: 05/24/2019 COMPARISON: NONE HISTORY: Leg pain TECHNIQUE: 3 views FINDINGS: There is some spurring at the glenohumeral joint. Elbow joint spaces are fairly normal. I s ee no fracture nor dislocation. There is spurring and calcification at the greater tuberosity of the humerus. IMPRESSION: There is probably calcific tendinitis at the shoulder joint. No fracture seen.
[2019-05-24] MEDS ORDERED: NALOXONE 0.4 MG/ML 1 ML VIAL IV PRN (17:01)
[2019-05-24] MEDS: MAGNESIUM SULFATE-D5W PMX 1 GM in DEXTROSE/WATER 1 100ML.BAG IVPB SCH ×2 (17:48→19:22)
[2019-05-24] MEDS: SODIUM CHLORIDE 0.9% 1,000 ML IV SCH (17:48)
[2019-05-24 21:25] LABS: Glucose,Whole Blood 141 mg/dL (75-99)
[2019-05-24] MEDS: glipiZIDE 5 MG TAB PO SCH (22:20)
[2019-05-24] MEDS: ATORVASTATIN 40 MG TAB PO SCH (22:20)
[2019-05-25] MEDS: LEVOTHYROXINE 50 MCG TAB PO SCH (06:07)
[2019-05-25 07:00] LABS: Glucose,Whole Blood 191 mg/dL (75-99)
[2019-05-25] MEDS: glipiZIDE 10 MG TAB PO SCH ×2 (08:17→08:18)
[2019-05-25] MEDS: INSULIN ASPART (NovoLOG) 100 UNIT/ML VIAL SQ SCH ×4 (08:17→21:14)
[2019-05-25] MEDS: metFORMIN 500 MG TAB PO SCH ×2 (08:17→21:15)
[2019-05-25] MEDS: PRAZOSIN 1 MG CAP PO SCH ×2 (08:18→21:16)
[2019-05-25] MEDS: LISINOPRIL 20 MG TAB PO SCH (08:18)
[2019-05-25] MEDS: CLOPIDOGREL 75 MG TAB PO SCH (08:18)
[2019-05-25] MEDS: CHOLECALCIFEROL 1,000 UNIT TAB PO SCH (08:18)
[2019-05-25] MEDS ORDERED: FAMOTIDINE 20 MG TAB PO SCH ×2 (09:00→15:12)
[2019-05-25] MEDS ORDERED: NON FORMULARY DRUG (Cranberry Fruit Extract [Cranberry] 1,000 MG) PO SCH (09:00)
[2019-05-25 12:06] LABS: Glucose,Whole Blood 183 mg/dL (75-99)
--- NOTE | 2019-05-25 12:44 | US ---
EXAMINATION TYPE: US venous doppler duplex UE RT DATE OF EXAM: 05/25/2019 COMPARISON: NONE CLINICAL HISTORY: r/o dvt. Patient c/o right upper anterior arm pain and noted after patient had outp atient blood draw, but also is unable to put coat on due to right arm pain. SIDE PERFORMED: right Right Arm: Negative for DVT or SVT(small superficial veins are noted in upper arm). At area of pain at anterior right upper arm, and anterior to the bone, a hypoechoic, thickened tendon /muscle is noted with increasing size and heterogeneous appearance mid upper arm level, and noted in longitudinal and transverse views. IMPRESSION: THIS EXAMINATION IS NEGATIVE FOR DVT IN THE RIGHT UPPER ARM.
--- NOTE | 2019-05-25 15:11 | P.HPIM ---
History of Present Illness H&P Date: 05/25/19 Chief Complaint: Decreased responsiveness History of presenting complaint: This is a pleasant 83-year-old patient who follows with Dr. Ramirez. Rather extensive medical history to include coronary coronary artery disease, left- sided weakness from prior stroke, diabetes, blind in the right eye, hypertension, hyperlipidemia, hypothyroid, chronic pain, osteoarthritis, periph eral neuropathy, esophageal strictures without irritation, urinary incontinence. At baseline uses a walker. Patient was here in January of this year. Was an episode of decreased responsiveness. Found to have some bradycardia. Loop recorder was placed. Patient was seen by neurology on that admission. Patient's MRI of the brain was unremarkable. EEG did not show any seizure activity. Patient now presents with episode of decreased responsiveness again. But not responding to days. No seizure activity. No tongue biting or incontinence. She was like that for a few minutes. Then she slowly came around. Patient also been having pain in the right shoulder area. Worse with movement. It is common for 3 days. Has arthritis of the joints. Multiple family members including her daughter and are present. Pain is localized to the right shoulder sometimes would radiate down the upper arm. Hurts with movement. No chest pain or shortness of breath Review of systems: GEN.: Tired EYES: Blind in the right eye HEENT: Decreased hearing NECK: None RESPIRATORY: None CARDIOVASCULAR: None GASTROINTESTINAL: None GENITOURINARY: None MUSCULOSKELETAL: As above LYMPHATICS: None HEMATOLOGICAL: None PSYCHIATRY: None NEUROLOGICAL: As above Social history: Does not smoke or drink alcohol. . Does use a walker Physical examination: VITAL SIGNS: 97.6, 64, 18, 127/60, 97% room air GENERAL: Average built, sitting up in a chair, comfortable EYES: Blind in the right eye HEENT: External appearance of nose and ears normal, oral cavity grossly normal. NECK: JVD not raised; masses not palpable. HEART: First and second heart sounds are normal; no edema. LUNGS: Respiratory rate normal; clear to auscultation. ABDOMEN: Soft, nontender, liver spleen not palpable, no masses palpable. PSYCH: Alert and oriented x3; mood and affect normal. NEUROLOGICAL: Cranial nerves grossly intact; no facial asymmetry, power and sensation grossly intact, blind in the right eye. LYMPHATICS: No lymph nodes palpable in the axilla and neck MUSCULOSKELETAL: Patient is tender around the right shoulder. Increasing pain with the shoulder is both with limited range of motion. Reproducible. INVESTIGATIONS, reviewed in the clinical context White count 6.6 hemoglobin 11.2 platelets 211 progression 4.3 creatinine 0.94 EKG tracing personally reviewed by me--heart rate 59 Right shoulder x-ray shows hypertrophic spurring and calcification of the greater tuberosity. No fracture. In January of this year/2018 patient had a negative MRI of the brain and a negative EEG for seizure. Assessment: -Patient presents with an episode of decreased responsiveness. Possibly vasovagal. Not too long ago patient had an MRI and EEG. There was unremarkable. We will rule out arrhythmia -Acute right shoulder pain appears to be acute tendinitis. Does localize pain and much worse with active and passive movement -Coronary artery disease -Diabetes mellitus type 2 on oral hypoglycemic -Blind in the right eye -Essential hypertension -Hyperlipidemia -Hypothyroidism -Primary osteoarthritis -Diabetic peripheral neuropathy -Chronic urinary incontinence -Chronic gait dysfunction uses a walker Plan: Patient was given a short burst of NSAIDs. Topical NSAIDs. We'll get orthopedic opinion. Will need outpatient physical therapy. Care was discussed with the patient and family the bedside. Cardiology consulted. Also consult orthopedics. Past Medical History Past Medical History: Coronary Artery Disease (CAD), Chest Pain / Angina, CVA/TIA, Diabetes Mellitus, Eye Disorder, GERD/Reflux, Hyperlipidemia, Hypertension, Osteoarthritis (OA), Syncope, Thyroid Disorder Additional Past Medical History / Comment(s): 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 History of Any Multi-Drug Resistant Organisms: None Reported Past Surgical History: Bladder Surgery, Cholecystectomy, Coronary Bypass/CABG, Heart Catheterization, Hysterectomy Additional Past Surgical History / Comment(s): CABG-2007, Ccath 2007, multiple EGDs/dilations with biopsies, COLONOSCOPY. Cataracts, D&C, bladder suspension. Past Anesthesia/Blood Transfusion Reactions: No Reported Reaction, Motion Sickness, Postoperative Nausea & Vomiting (PONV) Past Psychological History: No Psychological Hx Reported Additional Psychological History / Comment(s): pt lives at home with her bree. pt has a cleaning service come to home. has cane, w/c, walker, shower chair, glucometer, bp machine Smoking Status: Never smoker Past Alcohol Use History: None Reported Past Drug Use History: None Reported - Past Family History Father Family Medical History: Liver Disease Additional Family Medical History / Comment(s): Father of cirrhosis. He was a drinker. Mother Family Medical History: Unable to Obtain Additional Family Medical History / Comment(s): Pt states she does not know her mother's medical history. Son(s) Family Medical History: Unable to Obtain, Renal Disease Daughter(s) Family Medical History: Cancer Medications and Allergies Home Medications Medication Instructions Recorded Confirmed Type Benazepril HCl 20 mg PO BID 11/05/13 05/24/19 History Cholecalciferol [Vitamin D3 (25 2,000 unit PO DAILY 02/05/15 05/24/19 History Mcg = 1000 Iu)] Atorvastatin Calcium [Lipitor] 40 mg PO HS 02/18/16 05/24/19 History Levothyroxine Sodium [Synthroid] 50 mcg PO DAILY 01/07/17 05/24/19 History Famotidine [Pepcid] 20 mg PO DAILY 07/27/17 05/24/19 History Prazosin [Minipress] 1 mg PO BID 07/27/17 05/24/19 History Cranberry Fruit Extract [Cranberry] 1,000 mg PO DAILY 05/04/18 05/24/19 History metFORMIN HCL 500 mg PO BID 06/16/18 05/24/19 History Clopidogrel [Plavix] 75 mg PO DAILY 05/24/19 05/24/19 History glyBURIDE [Diabeta] 5 mg PO AC-BID 05/24/19 05/24/19 History Allergies Allergy/AdvReac Type Severity Reaction Status Date / Time aspirin Allergy Rash/Hives Verified 05/24/19 17:26 fish derived Allergy Rash/Hives Verified 05/24/19 17:26 Iodinated Contrast Media Allergy Rash/Hives Verified 05/24/19 17:26 [Iodinated Contrast Media - IV Dye] Iodine and Iodide Containing Allergy Rash/Hives Verified 05/24/19 17:26 Produc shellfish derived [Shellfish] Allergy Rash/Hives Verified 05/24/19 17:26 Physical Exam Vitals: Vital Signs Temp Pulse Pulse Resp BP BP Pulse Ox 05/25/19 07:00 98.3 F 67 12 197/75 96 05/25/19 02:40 97.9 F 70 168/74 99 05/24/19 19:21 97.8 F 57 L 16 164/70 05/24/19 18:03 78 20 139/60 99 05/24/19 17:52 98.1 F 62 18 167/58 100 05/24/19 17:00 61 20 160/66 100 05/24/19 16:00 58 L 19 137/66 99 05/24/19 15:19 97.6 F 64 18 127/60 97 Intake and Output 05/24/19 05/25/19 05/25/19 22:59 06:59 14:59 Intake Total 250 240 Balance 250 240 Intake: Oral 250 240 Other: Voiding Method Toilet # Voids 1 1 # Bowel Movements 1 Weight 67.585 kg Results CBC & Chem 7: 05/24/19 16:05 05/24/19 16:05 Labs: Abnormal Lab Results - Last 24 Hours (Table) 05/24/19 05/24/19 05/24/19 Range/Units 16:05 16:05 21:13 RBC 3.67 L (3.80-5.40) m/uL Hgb 11.2 L (11.4-16.0) gm/dL Hct 33.2 L (34.0-46.0) % Lymphocytes # 0.9 L (1.0-4.8) k/uL Chloride 108 H (98-107) mmol/L BUN 21 H (7-17) mg/dL Glucose 170 H (74-99) mg/dL POC Glucose (mg/dL) 141 H (75-99) mg/dL Magnesium 1.2 L (1.6-2.3) mg/dL 05/25/19 Range/Units 06:55 RBC (3.80-5.40) m/uL Hgb (11.4-16.0) gm/dL Hct (34.0-46.0) % Lymphocytes # (1.0-4.8) k/uL Chloride (98-107) mmol/L BUN (7-17) mg/dL Glucose (74-99) mg/dL POC Glucose (mg/dL) 191 H (75-99) mg/dL Magnesium (1.6-2.3) mg/dL Thrombosis Risk Factor Assmnt - Choose All That Apply Any of the Below Risk Factors Present?: Yes Each Factor Represents 1 point: Obesity (BMI >25) Other Risk Factors: Yes Each Risk Factor Represents 3 Points: Age 75 years or older Other congenital or acquired thrombophilia - If yes, enter type in comment: No Thrombosis Risk Factor Assessment Total Risk Factor Score: 4 Thrombosis Risk Factor Assessment Level: Moderate Risk
[2019-05-25 17:01] LABS: Glucose,Whole Blood 143 mg/dL (75-99)
[2019-05-25] MEDS: SODIUM CHLORIDE 0.9% 1,000 ML IV SCH (17:22)
[2019-05-25] MEDS: NAPROXEN 250 MG TAB PO SCH ×3 (17:22→21:15)
[2019-05-25] MEDS: DICLOFENAC SODIUM GEL 100 GM TUBE TOPICAL SCH ×3 (17:24→21:23)
[2019-05-25 20:29] LABS: Glucose,Whole Blood 269 mg/dL (75-99)
[2019-05-25] MEDS: ATORVASTATIN 40 MG TAB PO SCH (21:15)
[2019-05-25] MEDS: glipiZIDE 5 MG TAB PO SCH (21:16)
[2019-05-25] MEDS: FAMOTIDINE 20 MG TAB PO SCH (21:16)
[2019-05-26 02:10] LABS: Glucose,Whole Blood 161 mg/dL (75-99)
[2019-05-26] MEDS: LEVOTHYROXINE 50 MCG TAB PO SCH (06:01)
[2019-05-26 06:49] LABS: Potassium 4.1 mmol/L (3.5-5.1)
[2019-05-26 06:50] LABS: Calcium 9.2 mg/dL (8.4-10.2); Magnesium 1.4 mg/dL (1.6-2.3)
[2019-05-26 06:53] LABS: Basophils % (A) 0 %; Eosinophils # (A) 0.1 k/uL (0-0.7); Eosinophils % (A) 3 %; HCT 33.1 % (34.0-46.0); Lymphocytes # (A) 0.8 k/uL (1.0-4.8); Lymphocytes % (A) 15 %; MCH 30.3 pg (25.0-35.0); MCHC 33.4 g/dL (31.0-37.0); MCV 90.7 fL (80.0-100.0); Mean Platelet Volume 7.5; Monocytes # (A) 0.3 k/uL (0-1.0); Monocytes % (A) 6 %; Neutrophils # (A) 3.7 k/uL (1.3-7.7); Neutrophils % (A) 75 %; Platelet Count 203 k/uL (150-450); RBC 3.65 m/uL (3.80-5.40); RDW 13.5 % (11.5-15.5)
[2019-05-26 07:04] LABS: Glucose,Whole Blood 179 mg/dL (75-99)
[2019-05-26] MEDS: INSULIN ASPART (NovoLOG) 100 UNIT/ML VIAL SQ SCH ×4 (08:44→20:44)
[2019-05-26] MEDS: NAPROXEN 250 MG TAB PO SCH ×3 (08:47→20:48)
[2019-05-26] MEDS: CHOLECALCIFEROL 1,000 UNIT TAB PO SCH (08:48)
[2019-05-26] MEDS: metFORMIN 500 MG TAB PO SCH ×2 (08:48→20:43)
[2019-05-26] MEDS: LISINOPRIL 20 MG TAB PO SCH (08:48)
[2019-05-26] MEDS: PRAZOSIN 1 MG CAP PO SCH ×2 (08:48→20:43)
[2019-05-26] MEDS: FAMOTIDINE 20 MG TAB PO SCH ×2 (08:48→20:43)
[2019-05-26] MEDS: CLOPIDOGREL 75 MG TAB PO SCH (08:49)
[2019-05-26] MEDS: glipiZIDE 10 MG TAB PO SCH ×2 (08:49→11:05)
--- NOTE | 2019-05-26 09:17 | P.CRDCN ---
History of Present Illness Consult date: 05/26/19 Requesting physician: Elan Nagel Consult reason: sycope Chief complaint: Lightheadedness History of present illness: This is a pleasant 84-year-old female who follows regularly with Dr. Arevalo in the office. She has a past medical history significant for coronary artery disease and prior bypass surgery, diabetes, hypertension, COPD, hyperlipidemia, hypothyroidism, prior CVA, presented to the hospital recently following an episode of loss of consciousness, this was in January of this year. During that same admission she underwent implantation of a loop recorder by Dr. Akhtar which she still has in place. On this presentation, patient states she did not pass out, but she did feel somewhat lightheaded which she compares to how she feels when her blood sugars are running mildly elevated or mildly low. She denies fall or any loss of consciousness on this occasion. Chest x-ray on presentation here did not reveal any evidence for acute pulmonary disease. Right shoulder x-ray showed some hypertrophic spurring area of calcification at the greater tuberosity could reflect calcified tendinitis. EKG shows a sinus bradycardia with no acute changes. Venous duplex study negative for DVT in the right upper arm. Blood pressure this morning 190/60 with a heart rate in the 6 0s, 96% on room air. Patient has not yet received her morning medications. White blood cell count 5.0, hemoglobin 11.0, platelet count 203. Sodium 139, potassium 4.1, BUN 21, creatinine 0.7. Magnesium on admission 1.2, 1.4 this morning. Patient is sitting up in the chair this morning at the time of my examination, she feels well and has no complaints. Past Medical History Past Medical History: Coronary Artery Disease (CAD), Chest Pain / Angina, CVA/T IA, Diabetes Mellitus, Eye Disorder, GERD/Reflux, Hyperlipidemia, Hypertension, Osteoarthritis (OA), Syncope, Thyroid Disorder Additional Past Medical History / Comment(s): 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 History of Any Multi-Drug Resistant Organisms: None Reported Past Surgical History: Bladder Surgery, Cholecystectomy, Coronary Bypass/CABG, Heart Catheterization, Hysterectomy Additional Past Surgical History / Comment(s): CABG-2007, Ccath 2007, multiple EGDs/dilations with biopsies, COLONOSCOPY. Cataracts, D&C, bladder suspension. Past Anesthesia/Blood Transfusion Reactions: No Reported Reaction, Motion Sickness, Postoperative Nausea & Vomiting (PONV) Past Psychological History: No Psychological Hx Reported Additional Psychological History / Comment(s): pt lives at home with her bree. pt has a cleaning service come to home. has cane, w/c, walker, shower chair, glucometer, bp machine Smoking Status: Never smoker Past Alcohol Use History: None Reported Past Drug Use History: None Reported - Past Family History Father Family Medical History: Liver Disease Additional Family Medical History / Comment(s): Father of cirrhosis. He wa s a drinker. Mother Family Medical History: Unable to Obtain Additional Family Medical History / Comment(s): Pt states she does not know her mother's medical history. Son(s) Family Medical History: Unable to Obtain, Renal Disease Daughter(s) Family Medical History: Cancer Medications and Allergies Home Medications Medication Instructions Recorded Confirmed Type Benazepril HCl 20 mg PO BID 11/05/13 05/24/19 History Cholecalciferol [Vitamin D3 (25 2,000 unit PO DAILY 02/05/15 05/24/19 History Mcg = 1000 Iu)] Atorvastatin Calcium [Lipitor] 40 mg PO HS 02/18/16 05/24/19 History Levothyroxine Sodium [Synthroid] 50 mcg PO DAILY 01/07/17 05/24/19 History Famotidine [Pepcid] 20 mg PO DAILY 07/27/17 05/24/19 History Prazosin [Minipress] 1 mg PO BID 07/27/17 05/24/19 History Cranberry Fruit Extract [Cranberry] 1,000 mg PO DAILY 05/04/18 05/24/19 History metFORMIN HCL 500 mg PO BID 06/16/18 05/24/19 History Clopidogrel [Plavix] 75 mg PO DAILY 05/24/19 05/24/19 History glyBURIDE [Diabeta] 5 mg PO AC-BID 05/24/19 05/24/19 History Allergies Allergy/AdvReac Type Severity Reaction Status Date / Time aspirin Allergy Rash/Hives Verified 05/24/19 17:26 fish derived Allergy Rash/Hives Verified 05/24/19 17:26 Iodinated Contrast Media Allergy Rash/Hives Verified 05/24/19 17:26 [Iodinated Contrast Media - IV Dye] Iodine and Iodide Containing Allergy Rash/Hives Verified 05/24/19 17:26 Produc shellfish derived [Shellfish] Allergy Rash/Hives Verified 05/24/19 17:26 Physical Exam Vitals: Vital Signs Temp Pulse Resp BP Pulse Ox 05/26/19 07:00 97.6 F 63 12 193/65 96 05/26/19 02:45 98.9 F 63 16 130/66 96 05/25/19 20:09 98.1 F 58 L 16 168/66 98 05/25/19 15:00 98 F 62 12 154/61 98 Intake and Output 05/25/19 05/26/19 05/26/19 22:59 06:59 14:59 Intake Total 590 Balance 590 Intake: Oral 590 Other: # Voids 1 2 # Bowel Movements 1 PHYSICAL EXAMINATION: GENERAL: 84-year-old female in no acute distress at the time of my examination HEENT: Head is atraumatic, normocephalic. Right eye blindness. Sclera anicteric. Conjunctiva are clear. Mucous membranes of the mouth are moist. Neck is supple. There is no elevated jugular venous pressure. No carotid bruit is heard. HEART EXAMINATION: Heart S1 S2 1 systolic ejection murmur is heard CHEST EXAMINATION: Lungs are clear to auscultation and precussion. No chest wall tenderness is noted on palpation or with deep breathing. ABDOMEN: Soft, nontender. Bowel sounds are heard. No organomegaly noted. EXTREMITIES: 2+ peripheral pulses with no evidence of peripheral edema and no calf tenderness noted. NEUROLOGIC patient is awake, alert and oriented 3 . . Results 05/26/19 05:56 05/26/19 05:56 CBC 05/26/19 Range/Units 05:56 WBC 5.0 (3.8-10.6) k/uL RBC 3.65 L (3.80-5.40) m/uL Hgb 11.0 L (11.4-16.0) gm/dL Hct 33.1 L (34.0-46.0) % Plt Count 203 (150-450) k/uL Comprehensive Metabolic Panel 05/26/19 Range/Units 05:56 Sodium 139 (137-145) mmol/L Potassium 4.1 (3.5-5.1) mmol/L Chloride 110 H (98-107) mmol/L Carbon Dioxide 22 (22-30) mmol/L BUN 21 H (7-17) mg/dL Creatinine 0.79 (0.52-1.04) mg/dL Glucose 184 H (74-99) mg/dL Calcium 9.2 (8.4-10.2) mg/dL Current Medications Generic Name Dose Route Start Last Admin Trade Name Freq PRN Reason Stop Dose Admin Atorvastatin Calcium 40 mg 05/24/19 21:00 05/25/19 21:15 Lipitor PO 40 mg HS LARRY Administration Cholecalciferol 2,000 unit 05/25/19 09:00 05/26/19 08:48 Vitamin D3 (25 Mcg = 1000 Iu) PO 2,000 unit DAILY LARRY Administration Clopidogrel Bisulfate 75 mg 05/25/19 09:00 05/26/19 08:49 Plavix PO 75 mg DAILY LARRY Administration Diclofenac Sodium 2 gm 05/25/19 15:11 05/25/19 21:23 Voltaren Gel TOPICAL 2 gm QID LARRY Administration Famotidine 20 mg 05/25/19 21:00 05/26/19 08:48 Pepcid PO 20 mg BID LARRY Administration Glipizide 5 mg 05/24/19 21:00 05/25/19 21:16 Glucotrol PO 5 mg HS LARRY Administration Glipizide 10 mg 05/25/19 09:00 05/25/19 08:18 Glucotrol PO Not Given QAM LARRY Glipizide 10 mg 05/25/19 07:30 05/26/19 08:49 Glucotrol PO 10 mg AC-BRKFST LARRY Administration Sodium Chloride 1,000 mls @ 20 mls/hr 05/24/19 17:15 05/25/19 17:22 Saline 0.9% IV Not Given .Q24H [facility]ENDING [facility] TO [facility] Insulin Aspart 0 unit 05/25/19 07:30 05/26/19 08:44 Novolog SQ Not Given ACHS [facility] Protocol Levothyroxine Sodium 50 mcg 05/25/19 06:30 05/26/19 06:01 Synthroid PO 50 mcg DAILY@0630 LARRY Administration Lisinopril 40 mg 05/25/19 09:00 05/26/19 08:48 Zestril PO 40 mg DAILY LARRY Administration Metformin HCl 500 mg 05/25/19 09:00 05/26/19 08:48 Glucophage PO 500 mg BID LARRY Administration Naloxone HCl 0.2 mg 05/24/19 17:01 Narcan IV Q2M PRN Opioid Reversal Naproxen 250 mg 05/25/19 15:11 05/26/19 08:47 Naprosyn PO 250 mg TID LARRY Administration Prazosin HCl 1 mg 05/25/19 09:00 05/26/19 08:48 Minipress PO 1 mg BID LARRY Administration Intake and Output 05/25/19 05/26/19 05/26/19 22:59 06:59 14:59 Intake Total 590 Balance 590 Intake: Oral 590 Other: # Voids 1 2 # Bowel Movements 1 05/26/19 05:56 05/26/19 05:56 EKG Interpretations (text) EKG shows a sinus bradycardia with no acute changes. Assessment and Plan Plan: Assessment and plan #1 symptoms of lightheadedness, no evidence of unresponsiveness or syncope. #2 diabetes #3 hypertension #4 hyperlipidemia #5 known history of coronary artery disease with prior bypass surgery in 2007 at which time patient underwent a HAGEN to the LAD, saphenous vein graft to the OM1, OM 2, and PDA. Subsequent to that patient did undergo angioplasty and stenting of the saphenous vein graft to the OM in 2007. #6 prior CVA #7 PVD #8 history of esophageal stricture for which patient had dilitation performed earlier this month. #9 recent syncopal episode a few months ago for which the patient had a loop recorder placed. Plan From cardiology's perspective, we will continue the patient on her home medications. We will have her a loop device interrogated, if stable she may be able to be discharged from cardiology's perspective. Further recommendations to follow DNP note has been reviewed, I agree with a documented findings and plan of care. Patient was seen and examined.
[2019-05-26] MEDS: DICLOFENAC SODIUM GEL 100 GM TUBE TOPICAL SCH ×4 (10:53→20:48)
[2019-05-26 11:55] LABS: Glucose,Whole Blood 244 mg/dL (75-99)
--- NOTE | 2019-05-26 16:12 | P.PN ---
Progress Note - Text Progress Note Date: 05/26/19 Chief Complaint: Decreased responsiveness History of presenting complaint: This is a pleasant 83-year-old patient who follows with Dr. Ramirez. Rather extensive medical history to include coronary coronary artery disease, left- sided weakness from prior stroke, diabetes, blind in the right eye, hypertension, hyperlipidemia, hypothyroid, chronic pain, osteoarthritis, peripheral neuropathy, esophageal strictures without irritation, urinary incontinence. At baseline uses a walker. Patient was here in January of this year. Was an episode of decreased responsiveness. Found to have some bradycardia. Loop recorder was placed. Patient was seen by neurology on that admission. Patient's MRI of the brain was unremarkable. EEG did not show any seizure activity. Patient now presents with episode of decreased responsiveness again. But not responding to days. No seizure activity. No tongue biting or incontinence. She was like that for a few minutes. Then she slowly came around. Patient also been having pain in the right shoulder area. Worse with movement. It is common for 3 days. Has arthritis of the joints. Multiple family members including her daughter and are present. Pain is localized to the right shoulder sometimes would radiate down the upper arm. Hurts with movement. No chest pain or shortness of breath Today-right shoulder pain is better. Pending orthopedic consultation. Pending Loop recorder analysis. Tolerated diet. Family the bedside. Review of systems: Was done for constitutional, cardiovascular, GI, pulmonary. relevant finding as above Active Medications Atorvastatin Calcium (Lipitor) 40 mg PO HS [facility] Last Admin: 05/25/19 21:15 Dose: 40 mg Documented by: Cholecalciferol (Vitamin D3 (25 Mcg = 1000 Iu)) 2,000 unit PO DAILY [facility] Last Admin: 05/26/19 08:48 Dose: 2,000 unit Documented by: Clopidogrel Bisulfate (Plavix) 75 mg PO DAILY [facility] Last Admin: 05/26/19 08:49 Dose: 75 mg Documented by: Diclofenac Sodium (Voltaren Gel) 2 gm TOPICAL QID [facility] Last Admin: 05/26/19 14:52 Dose: Not Given Documented by: Famotidine (Pepcid) 20 mg PO BID [facility] Last Admin: 05/26/19 08:48 Dose: 20 mg Documented by: Glipizide (Glucotrol) 5 mg PO HS [facility] Last Admin: 05/25/19 21:16 Dose: 5 mg Documented by: Glipizide (Glucotrol) 10 mg PO QAM [facility] Last Admin: 05/26/19 11:05 Dose: 10 mg Documented by: Glipizide (Glucotrol) 10 mg PO AC-BRKFST [facility] Last Admin: 05/26/19 08:49 Dose: 10 mg Documented by: Sodium Chloride (Saline 0.9%) 1,000 mls @ 20 mls/hr IV .Q24H [facility] Last Admin: 05/25/19 17:22 Dose: Not Given Documented by: Insulin Aspart (Novolog) 0 unit SQ ACHS [facility]; Protocol Last Admin: 05/26/19 12:41 Dose: 3 unit Documented by: Levothyroxine Sodium (Synthroid) 50 mcg PO DAILY@0630 [facility] Last Admin: 05/26/19 06:01 Dose: 50 mcg Documented by: Lisinopril (Zestril) 40 mg PO DAILY [facility] Last Admin: 05/26/19 08:48 Dose: 40 mg Documented by: Metformin HCl (Glucophage) 500 mg PO BID [facility] Last Admin: 05/26/19 08:48 Dose: 500 mg Documented by: Naloxone HCl (Narcan) 0.2 mg IV Q2M PRN PRN Reason: Opioid Reversal Naproxen (Naprosyn) 250 mg PO TID [facility] Last Admin: 05/26/19 08:47 Dose: 250 mg Documented by: Prazosin HCl (Minipress) 1 mg PO BID [facility] Last Admin: 05/26/19 08:48 Dose: 1 mg Documented by: Physical examination: VITAL SIGNS: 98.2, 60, 12, 160/70, 99% room air GENERAL: sitting up in a chair, comfortable EYES: Blind in the right eye HEENT: External appearance of nose and ears normal, oral cavity grossly normal. NECK: JVD not raised; masses not palpable. HEART: First and second heart sounds are normal; no edema. LUNGS: Respiratory rate normal; clear to auscultation. ABDOMEN: Soft, nontender, liver spleen not palpable, no masses palpable. PSYCH: Alert and oriented x3; mood and affect normal. NEUROLOGICAL: Cranial nerves grossly intact; no facial asymmetry, power and sensation grossly intact, blind in the right eye. LYMPHATICS: No lymph nodes palpable in the axilla and neck MUSCULOSKELETAL: Patient is tender around the right shoulder. Increasing pain with movement of the shoulder had limited range of motion.. INVESTIGATIONS, reviewed in the clinical context White count 5 hemoglobin 11 progression 4.1 creatinine 0.79 Previous testing White count 6.6 hemoglobin 11.2 platelets 211 progression 4.3 creatinine 0.94 EKG tracing personally reviewed by me--heart rate 59 Right shoulder x-ray shows hypertrophic spurring and calcification of the greater tuberosity. No fracture. In January of this /2018 patient had a negative MRI of the brain and a negative EEG for seizure. Assessment: -Patient presents with an episode of decreased responsiveness. Possibly vasovagal. Not too long ago patient had an MRI and EEG. There was unremarkable. Loop recorder analysis pending -Acute right shoulder pain appears to be acute tendinitis. Does localize pain and much worse with active and passive movement -Coronary artery disease -Diabetes mellitus type 2 on oral hypoglycemic -Blind in the right eye -Essential hypertension -Hyperlipidemia -Hypothyroidism -Primary osteoarthritis -Diabetic peripheral neuropathy -Chronic urinary incontinence -Chronic gait dysfunction uses a walker Plan: Patient's right shoulder pain is better. Pending analysis of group recorder. Care discussed with the patient and family. Pending results hopefully can be discharged tomorrow.
[2019-05-26 17:06] LABS: Glucose,Whole Blood 162 mg/dL (75-99)
[2019-05-26] MEDS: SODIUM CHLORIDE 0.9% 1,000 ML IV SCH (17:38)
[2019-05-26] MEDS: ATORVASTATIN 40 MG TAB PO SCH (20:43)
[2019-05-26] MEDS: glipiZIDE 5 MG TAB PO SCH (20:43)
[2019-05-26] MEDS: LISINOPRIL-HCTZ 10-12.5 MG 1 EACH TAB PO SCH (20:48)
[2019-05-26 20:53] LABS: Glucose,Whole Blood 186 mg/dL (75-99)
[2019-05-27 02:54] LABS: Glucose,Whole Blood 184 mg/dL (75-99)
[2019-05-27] MEDS: LEVOTHYROXINE 50 MCG TAB PO SCH (05:55)
[2019-05-27 07:09] LABS: Glucose,Whole Blood 175 mg/dL (75-99)
[2019-05-27] MEDS: glipiZIDE 10 MG TAB PO SCH ×3 (08:05→08:14)
[2019-05-27] MEDS: metFORMIN 500 MG TAB PO SCH (08:13)
[2019-05-27] MEDS: LISINOPRIL-HCTZ 10-12.5 MG 1 EACH TAB PO SCH (08:13)
[2019-05-27] MEDS: LISINOPRIL 20 MG TAB PO SCH (08:13)
[2019-05-27] MEDS: CLOPIDOGREL 75 MG TAB PO SCH (08:13)
[2019-05-27] MEDS: PRAZOSIN 1 MG CAP PO SCH (08:13)
[2019-05-27] MEDS: NAPROXEN 250 MG TAB PO SCH (08:13)
[2019-05-27] MEDS: CHOLECALCIFEROL 1,000 UNIT TAB PO SCH (08:14)
[2019-05-27] MEDS: DICLOFENAC SODIUM GEL 100 GM TUBE TOPICAL SCH ×2 (08:14→12:16)
[2019-05-27] MEDS: INSULIN ASPART (NovoLOG) 100 UNIT/ML VIAL SQ SCH ×2 (08:14→12:11)
[2019-05-27] MEDS: FAMOTIDINE 20 MG TAB PO SCH (08:14)
[2019-05-27 08:21] VITALS: BP 161/73; PULSE 70; RESP 19; TEMP 98.2
--- NOTE | 2019-05-27 08:46 | P.CNOR ---
History of Present Illness - [facility] Consult date: 05/27/19 Consult reason: joint pain (Right shoulder pain) History of present illness: The patient is a very pleasant 84-year-old female who presented to the hospital with syncope. She was admitted for further evaluation. She is also complaining of right shoulder pain upon admission. Orthopedics was consulted for further evaluation. The patient states that her right shoulder pain started last week after getting her blood drawn in the right antecubital space. She noticed increased aching in the upper arm and shoulder especially with any motion of the shoulder and while putting her jacket on. She denies any specific injury or falling onto the right arm recently. She denies any fever, chills, ill feeling, and other joint pain. The patient denies any previous right shoulder pain prior to this incident. She uses a walker at home. The patient was started on diclofenac gel and states her shoulder is feeling better. 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 History of Any Multi-Drug Resistant Organisms: None Reported Past Surgical History: Bladder Surgery, Cholecystectomy, Coronary Bypass/CABG, Heart Catheterization, Hysterectomy Additional Past Surgical History / Comment(s): CABG-2007, Ccath 2007, multiple EGDs/dilations with biopsies, COLONOSCOPY. Cataracts, D&C, bladder suspension. Past Anesthesia/Blood Transfusion Reactions: No Reported Reaction, Motion Sickness, Postoperative Nausea & Vomiting (PONV) Past Psychological History: No Psychological Hx Reported Additional Psychological History / Comment(s): pt lives at home with her bree. pt has a cleaning service come to home. has cane, w/c, walker, shower chair, glucometer, bp machine Smoking Status: Never smoker Past Alcohol Use History: None Reported Past Drug Use History: None Reported - Past Family History Father Family Medical History: Liver Disease Additional Family Medical History / Comment(s): Father of cirrhosis. He was a drinker. Mother Family Medical History: Unable to Obtain Additional Family Medical History / Comment(s): Pt states she does not know her mother's medical history. Son(s) Family Medical History: Unable to Obtain, Renal Disease Daughter(s) Family Medical History: Cancer Medications and Allergies Home Medications Medication Instructions Recorded Confirmed Type Benazepril HCl 20 mg PO BID 11/05/13 05/24/19 History Cholecalciferol [Vitamin D3 (25 2,000 unit PO DAILY 02/05/15 05/24/19 History Mcg = 1000 Iu)] Atorvastatin Calcium [Lipitor] 40 mg PO HS 02/18/16 05/24/19 History Levothyroxine Sodium [Synthroid] 50 mcg PO DAILY 01/07/17 05/24/19 History Cranberry Fruit Extract [Cranberry] 1,000 mg PO DAILY 05/04/18 05/24/19 History metFORMIN HCL 500 mg PO BID 06/16/18 05/24/19 History Clopidogrel [Plavix] 75 mg PO DAILY 05/24/19 05/24/19 History glyBURIDE [Diabeta] 5 mg PO AC-BID 05/24/19 05/24/19 History Chlorthalidone 25 mg PO DAILY #30 tab 05/27/19 Rx Diclofenac Sodium Gel [Voltaren 2 gm TOPICAL QID tube 05/27/19 Rx Gel] Famotidine [Pepcid] 20 mg PO BID #60 05/27/19 05/24/19 Rx Naproxen [Naprosyn] 250 mg PO TID #21 tab 05/27/19 Rx Prazosin [Minipress] 2 mg PO TID #90 capsule 05/27/19 Rx Allergies Allergy/AdvReac Type Severity Reaction Status Date / Time aspirin Allergy Rash/Hives Verified 05/24/19 17:26 fish derived Allergy Rash/Hives Verified 05/24/19 17:26 Iodinated Contrast Media Allergy Rash/Hives Verified 05/24/19 17:26 [Iodinated Contrast Media - IV Dye] Iodine and Iodide Containing Allergy Rash/Hives Verified 05/24/19 17:26 Produc shellfish derived [Shellfish] Allergy Rash/Hives Verified 05/24/19 17:26 Physical Examination The patient is an 84-year-old female who is in no acute distress. She is alert and oriented 3. Exam of the right shoulder reveals no open wounds or ecc hymosis present. Range of motion includes 90 of flexion and abduction with the pain starts. External rotation is full. Internal rotation limited due to pain. Mroales positive. There is full range of motion passively with mild pain. Full range of motion of the elbow and wrist and hand. Neurological and circulatory status is intact. Results - Labs Labs: Abnormal Lab Results - Last 24 Hours (Table) 05/26/19 05/26/19 05/26/19 Range/Units 11:53 17:04 20:34 POC Glucose (mg/dL) 244 H 162 H 186 H (75-99) mg/dL 05/27/19 05/27/19 Range/Units 02:50 07:07 POC Glucose (mg/dL) 184 H 175 H (75-99) mg/dL H & H 05/24/19 05/26/19 Range/Units 16:05 05:56 Hgb 11.2 L 11.0 L (11.4-16.0) gm/dL Hct 33.2 L 33.1 L (34.0-46.0) % Result Diagrams: 05/26/19 05:56 05/26/19 05:56 - Diagnostic results Shoulder x-ray: image reviewed (Chronic calcific tendonitis present. Mild glenohumeral narrowing noted.) Assessment and Plan (1) Right shoulder pain Status: Acute Code(s): M25.511 - PAIN IN RIGHT SHOULDER SNOMED Code(s): 67468304 (2) Syncope Status: Acute Code(s): R55 - SYNCOPE AND COLLAPSE SNOMED Code(s): 199242866 (3) Generalized weakness Status: Acute Code(s): R53.1 - WEAKNESS SNOMED Code(s): 33533993 (4) History of diabetes mellitus Status: Acute Code(s): Z86.39 - PERSONAL HISTORY OF ENDO, NUTRITIONAL AND METABOLIC DISEASE SNOMED Code(s): 671522079 (5) TIA (transient ischemic attack) Status: Acute Code(s): G45.9 - TRANSIENT CEREBRAL ISCHEMIC ATTACK, UNSPECIFIED SNOMED Code(s): 421031467 (6) Right rotator cuff tendonitis Status: Acute Code(s): M75.81 - OTHER SHOULDER LESIONS, RIGHT SHOULDER SNOMED Code(s): 65395593991375635 Plan: The clinical and x-ray findings were discussed with the patient. The case was also discussed with Dr. Keita. No surgical intervention is planned at this time. Continue conservative measures such as ice and/or heat, rest, oral antiinflammatories and gentle range of motion of the shoulder. Continue Diclofenac gel as tolerated for pain. She may be discharged home from an orthopedic standpoint. She will follow up in our office in 2 weeks if shoulder pain continues.
[2019-05-27] MEDS ORDERED: Magnesium Replacement Protocol 1 EACH MISC MISCELLANE PRN (09:28)
[2019-05-27] MEDS ORDERED: HYDROCHLOROTHIAZIDE 12.5 MG CAP PO ONE (09:45)
[2019-05-27 09:49] LABS: Hemoglobin A1C 8.2 % (4.0-6.0)
[2019-05-27] MEDS: MAGNESIUM SULFATE-D5W PMX 1 GM in DEXTROSE/WATER 1 100ML.BAG IVPB SCH ×3 (10:06→12:49)
[2019-05-27 11:53] LABS: Glucose,Whole Blood 197 mg/dL (75-99)
--- NOTE | 2019-05-27 11:53 | P.PN ---
Subjective This is a pleasant 84-year-old female past medical history significant for coronary artery disease s/p bypass grafting, diabetes mellitus, hypertension, dyslipidemia, COPD and CVA in the past. She follows in the office with Dr. Arevalo. She presented to the hospital with symptoms of right arm pain and altered mental status. She is seen and examined sitting up in the chair eating breakfast. She continues to feel some mild discomfort in the right arm, worse with movement and is slightly improved with the application of voltaren gel. Telemetry tracings have been unremarkable for arrhythmia. Blood pressure 161/73 heart rate 70 afebrile and maintaining oxygen saturation on room air. Currently maintained on atorvastatin 40 mg daily, plavix 75 mg daily, lisinopril 40 mg daily, zestoretic 10/12.5 BID and prazosin 1 mg BID. Laboratory data reviewed, WBC 5, hgb 11, plt 203, sodium 139, potassium 4.1, creatinine 0.79, magnesium 1.4. Loop recorder interrogation unremarkable with no tachy or domenic arrhythmia's noted. GENERAL: Well-appearing, well-nourished and in no acute distress. NECK: Supple without JVD or thyromegaly. LUNGS: Breath sounds clear to auscultation bilaterally. Respiration equal and unlabored. No wheezes, rales or rhonchi. HEART: Regular rate and rhythm with systolic ejection murmur at the base, no rubs or gallops. S1 and S2 heard. EXTREMITIES: Normal range of motion, no edema. No clubbing or cyanosis. Peripheral pulses intact. ASSESSMENT Episode of lightheadedness, no syncope or LOC Hypomagnesemia Right arm pain, ortho following, no surgical intervention recommended Coronary artery disease s/p bypass grafting Hypertension Dyslipidemia s/p loop recorder implantation secondary to syncope in January 2019 PLAN Replace magnesium per protocol. Discontine zestoretic as she is already on lisinopril (benazapril at home). Continue lisinopril as previously ordered and add hydrochlorothiazide. Once magnesium is supplemented she is stable for discharge from a cardiac perspective. Follow up with Dr. Arevalo upon discharge. Nurse Practitioner note has been reviewed, I agree with a documented findings and plan of care. Patient was seen and examined. Objective - Vital Signs Vital signs: Vital Signs Temp 98.2 F 05/27/19 07:00 Pulse 70 05/27/19 07:00 Resp 19 05/27/19 07:00 BP 161/73 05/27/19 07:00 Pulse Ox 95 05/27/19 07:00 Intake & Output 05/26/19 05/27/19 05/27/19 18:59 06:59 18:59 Other: # Voids 1 1 - Labs CBC & Chem 7: 05/26/19 05:56 05/26/19 05:56 Labs: Abnormal Lab Results - Last 24 Hours (Table) 05/26/19 05/26/19 05/26/19 Range/Units 11:53 17:04 20:34 POC Glucose (mg/dL) 244 H 162 H 186 H (75-99) mg/dL 05/27/19 05/27/19 Range/Units 02:50 07:07 POC Glucose (mg/dL) 184 H 175 H (75-99) mg/dL
[2019-05-27] MEDS ORDERED: PRAZOSIN 1 MG CAP PO SCH (16:00)
--- NOTE | 2019-05-27 17:58 | P.DS ---
Providers Date of admission: 05/26/19 08:54 Expected date of discharge: 05/27/19 Attending physician: Elan Nagel Consults: 05/25/19 15:13 Consult Physician Routine Consulting Provider: Laly Merino Consult Reason/Comments: Unconscious episode/has a loop recorder Do you want consulting provider notified?: Yes 05/26/19 11:50 Consult Physician Routine Consulting Provider: Evin Keita Consult Reason/Comments: r shoulder pain Do you want consulting provider notified?: Yes Primary care physician: [facility] Course: Chief Complaint: Decreased responsiveness History of presenting complaint: This is a pleasant 83-year-old patient who follows with Dr. Ramirez. Rather extensive medical history to include coronary coronary artery disease, left- sided weakness from prior stroke, diabetes, blind in the right eye, hypertension, hyperlipidemia, hypothyroid, chronic pain, osteoarthritis, peripheral neuropathy, esophageal strictures without irritation, urinary incontinence. At baseline uses a walker. Patient was here in January of this year. Was an episode of decreased responsiveness. Found to have some bradycardia. Loop recorder was placed. Patient was seen by neurology on that admission. Patient's MRI of the brain was unremarkable. EEG did not show any seizure activity. Patient now presents with episode of decreased responsiveness again. But not responding to days. No seizure activity. No tongue biting or incontinence. She was like that for a few minutes. Then she slowly came around. Patient also been having pain in the right shoulder area. Worse with movement. It is common for 3 days. Has arthritis of the joints. Multiple family members including her daughter and are present. Pain is localized to the right shoulder sometimes would radiate down the upper arm. Hurts with movement. No chest pain or shortness of breath X-ray of the right shoulder and clinical grounds was suggestive of bicep tendinitis. Responded well to NSAIDs and topical Voltaren gel. Loop recorder interrogation is unremarkable. Cleared by cardiology and orthopedics to go home. Patient is doing much better. Consultation: Dr. Herring from cardiology Dr. [facility] Physical examination: VITAL SIGNS: 98.2, 70, 19, 161-73, 95% room air GENERAL: sitting up in a chair, comfortable EYES: Blind in the right eye HEENT: External appearance of nose and ears normal, oral cavity grossly normal. NECK: JVD not raised; masses not palpable. HEART: First and second heart sounds are normal; no edema. LUNGS: Respiratory rate normal; clear to auscultation. ABDOMEN: Soft, nontender, liver spleen not palpable, no masses palpable. PSYCH: Alert and oriented x3; mood and affect normal. MUSCULOSKELETAL: Patient is tender around the right shoulder. Increasing pain with movement of the shoulder had limited range of motion.. INVESTIGATIONS, reviewed in the clinical context White count 5 hemoglobin 11 progression 4.1 creatinine 0.79 Previous testing White count 6.6 hemoglobin 11.2 platelets 211 progression 4.3 creatinine 0.94 EKG tracing personally reviewed by me--heart rate 59 Right shoulder x-ray shows hypertrophic spurring and calcification of the greater tuberosity. No fracture. In January of this patient had a negative MRI of the brain and a negative EEG for seizure. Assessment: -Patient presents with an episode of decreased responsiveness. Possibly vasovagal. Not too long ago patient had an MRI and EEG. There was unremarkable. Loop recorder analysis negative for arrhythmia -Acute right shoulder pain appears to be acute right shoulder cuff tendinitis. -Coronary artery disease -Diabetes mellitus type 2 on oral hypoglycemic -Blind in the right eye -Essential hypertension -Hyperlipidemia -Hypothyroidism -Primary osteoarthritis -Diabetic peripheral neuropathy -Chronic urinary incontinence -Chronic gait dysfunction uses a walker Disposition: Home Patient Condition at Discharge: Stable Plan - Discharge Summary Discharge Rx Participant: Yes New Discharge Prescriptions: New Chlorthalidone 25 mg PO DAILY #30 tab Prazosin [Minipress] 2 mg PO TID #90 capsule Naproxen [Naprosyn] 250 mg PO TID #21 tab Diclofenac Sodium Gel [Voltaren Gel] 2 gm TOPICAL QID tube Continue Benazepril HCl 20 mg PO BID Cholecalciferol [Vitamin D3 (25 Mcg = 1000 Iu)] 2,000 unit PO DAILY Atorvastatin Calcium [Lipitor] 40 mg PO HS Levothyroxine Sodium [Synthroid] 50 mcg PO DAILY Cranberry Fruit Extract [Cranberry] 1,000 mg PO DAILY metFORMIN HCL 500 mg PO BID glyBURIDE [Diabeta] 5 mg PO AC-BID Clopidogrel [Plavix] 75 mg PO DAILY Changed Famotidine [Pepcid] 20 mg PO BID #60 Discontinued Prazosin [Minipress] 1 mg PO BID Discharge Medication List Benazepril HCl 20 mg PO BID 11/05/13 [History] Cholecalciferol [Vitamin D3 (25 Mcg = 1000 Iu)] 2,000 unit PO DAILY 02/05/15 [History] Atorvastatin Calcium [Lipitor] 40 mg PO HS 02/18/16 [History] Levothyroxine Sodium [Synthroid] 50 mcg PO DAILY 01/07/17 [History] Cranberry Fruit Extract [Cranberry] 1,000 mg PO DAILY 05/04/18 [History] metFORMIN HCL 500 mg PO BID 06/16/18 [History] Clopidogrel [Plavix] 75 mg PO DAILY 05/24/19 [History] glyBURIDE [Diabeta] 5 mg PO AC-BID 05/24/19 [History] Chlorthalidone 25 mg PO DAILY #30 tab 05/27/19 [Rx] Diclofenac Sodium Gel [Voltaren Gel] 2 gm TOPICAL QID tube 05/27/19 [Rx] Famotidine [Pepcid] 20 mg PO BID #60 05/27/19 [Rx] Naproxen [Naprosyn] 250 mg PO TID #21 tab 05/27/19 [Rx] Prazosin [Minipress] 2 mg PO TID #90 capsule 05/27/19 [Rx] Follow up Appointment(s)/Referral(s): Corrie Arevalo MD [STAFF PHYSICIAN] - 06/11/19 3:45 pm (with crystal ) Esvin Ramirez DO [Primary Care Provider] - 05/31/19 1:40 pm Evin Keita DO [Medical Doctor] - 06/13/19 10:00 am (arrive 15 min early for paperwork) Patient Instructions/Handouts: Syncope (DC) Activity/Diet/Wound Care/Special Instructions: Gentle range of motion of the shoulder as tolerated. Topical medication to the right shoulder as needed. Follow up with Dr. Keita in 2 weeks if shoulder remains painful. For Meals on Wheels and/or possible housekeeping services - call [place] [facility] - [phone] Discharge Disposition: HOME WITH HOME HEALTH SERVICES
[2019-05-28] MEDS ORDERED: HYDROCHLOROTHIAZIDE 25 MG TAB PO SCH (09:00)
== END 2019-05-27 14:10 | disposition home or self-care (01) | DRG 558 ==
LOC: EC 15:14 → 4SSUR 17:01 → OBSVTOIN 05-26 08:54
PROVIDERS: ADMIT Hospitalist; ATTEND Hospitalist
DX: M75.101 Unspecified rotator cuff tear or rupture of right shoulder, not specified as traumatic (principal); G45.9 Transient cerebral ischemic attack, unspecified; I42.9 Cardiomyopathy, unspecified; I69.354 Hemiplegia and hemiparesis following cerebral infarction affecting left non-dominant side; E03.9 Hypothyroidism, unspecified; E11.319 Type 2 diabetes mellitus with unspecified diabetic retinopathy without macular edema; E11.42 Type 2 diabetes mellitus with diabetic polyneuropathy; E11.51 Type 2 diabetes mellitus with diabetic peripheral angiopathy without gangrene; E78.5 Hyperlipidemia, unspecified; E83.42 Hypomagnesemia; G89.4 Chronic pain syndrome; H54.61 Unqualified visual loss, right eye, normal vision left eye; I10 Essential (primary) hypertension; I25.10 Atherosclerotic heart disease of native coronary artery without angina pectoris; J44.9 Chronic obstructive pulmonary disease, unspecified; M19.91 Primary osteoarthritis, unspecified site; R32 Unspecified urinary incontinence; Z79.02 Long term (current) use of antithrombotics/antiplatelets; Z79.84 Long term (current) use of oral hypoglycemic drugs; Z79.890 Hormone replacement therapy; Z79.899 Other long term (current) drug therapy; Z90.710 Acquired absence of both cervix and uterus; Z95.1 Presence of aortocoronary bypass graft; K44.9 Diaphragmatic hernia without obstruction or gangrene; R26.9 Unspecified abnormalities of gait and mobility; Z88.6 Allergy status to analgesic agent; Z91.041 Radiographic dye allergy status; Z91.013 Allergy to seafood; Z91.81 History of falling; Z83.79 Family history of other diseases of the digestive system; Z87.440 Personal history of urinary (tract) infections; Z90.49 Acquired absence of other specified parts of digestive tract; R53.1 Weakness
CPT/HCPCS: 36415; 71046; 80048; 82550; 83036; 83735; 85025; 93005; 96365; 99285

== ENCOUNTER 2019-06-19 15:35 | Observation (INO) | payer MEDICARE, OTHER ==
--- NOTE | 2019-06-19 16:06 | ED ---
General Adult HPI <Jose Seymour - Last Filed: 06/19/19 20:21> - General Source: EMS Mode of arrival: EMS Limitations: physical limitation <Maria R Alarcon - Last Filed: 06/24/19 15:21> - General Chief complaint: Syncope Stated complaint: altered mental status Time Seen by Provider: 06/19/19 15:45 - History of Present Illness Initial comments: The patient is an 84-year-old female with past medical history of TIA, diabetes and hypertension who presents emergency Department after a episode of unres ponsiveness. The patient states that she woke this morning and took her blood pressure and blood sugars. Her blood pressure was low and therefore she held off on taking her blood pressure medications. She did have a scheduled doctor's appointment. Upon arrival there she was actually hypertensive. She was instructed to take her blood pressure medications at the time. She then went out to lunch with her daughter. Daughter states that during lunch she had acute onset of encephalopathy. The patient had difficulty speaking. Reports that the right side of her face went droopy and she had difficulty using one side of her body. Daughter cannot remember which side it was. The patient then slumped over while completely unresponsive. She states it was for a period of approximately 5 minutes. The patient then became arousable when EMS arrived. They stated that she was virtually confused and aphasic. She then regained her speech. She [place] to [place] and has a GCS of 15. She is alert and oriented 3. She does report to a mild headache. No visual changes. 90 recent blunt head trauma. No neck pain or stiffness. Denies any chest pain or shortness of breath. No nausea or vomiting. There was no seizure-like activity. The patient did not injure herself. She was seen in May for a possible mini stroke. There are no alleviating, precipitating or modifying factors (Maria R Alarcon) - Related Data Home Medications Medication Instructions Recorded Confirmed Levothyroxine Sodium [Synthroid] 50 mcg PO DAILY 01/07/17 06/19/19 Clopidogrel [Plavix] 75 mg PO DAILY 05/24/19 06/19/19 glyBURIDE [Diabeta] 5 mg PO BID-W/MEALS 05/24/19 06/19/19 Famotidine [Pepcid] 20 mg PO DAILY 06/19/19 06/19/19 Previous Rx's Medication Instructions Recorded Atorvastatin [Lipitor] 20 mg PO HS #30 tab 06/22/19 Lisinopril-Hctz 20-12.5 mg 1 each PO BID #60 tab 06/22/19 [Zestoretic 20-12.5] Metoprolol Tartrate [Lopressor] 50 mg PO BID #60 tab 06/22/19 Allergies Allergy/AdvReac Type Severity Reaction Status Date / Time aspirin Allergy Rash/Hives Verified 06/19/19 20:46 fish derived Allergy Rash/Hives Verified 06/19/19 20:46 Iodinated Contrast Media Allergy Rash/Hives Verified 06/19/19 20:46 [Iodinated Contrast Media - IV Dye] Iodine and Iodide Containing Allergy Rash/Hives Verified 06/19/19 20:46 Produc shellfish derived [Shellfish] Allergy Rash/Hives Verified 06/19/19 20:46 Review of Systems ROS Other: All systems not noted in ROS Statement are negative. <Jose Seymour - Last Filed: 06/19/19 20:21> ROS Other: All systems not noted in ROS Statement are negative. <Maria R Alarcon - Last Filed: 06/24/19 15:21> ROS Statement: Those systems with pertinent positive or pertinent negative responses have been documented in the HPI. 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 History of Any Multi-Drug Resistant Organisms: None Reported Past Surgical History: Bladder Surgery, Cholecystectomy, Coronary Bypass/CABG, Heart Catheterization, Hysterectomy Additional Past Surgical History / Comment(s): CABG-2007, Ccath 2007, multiple EGDs/dilations with biopsies, COLONOSCOPY. Cataracts, D&C, bladder suspension. Past Anesthesia/Blood Transfusion Reactions: No Reported Reaction, Motion Sickness, Postoperative Nausea & Vomiting (PONV) Past Psychological History: No Psychological Hx Reported Smoking Status: Never smoker Past Alcohol Use History: None Reported Past Drug Use History: None Reported - Past Family History Father Family Medical History: Liver Disease Additional Family Medical History / Comment(s): Father of cirrhosis. He was a drinker. Mother Family Medical History: Unable to Obtain Additional Family Medical History / Comment(s): Pt states she does not know her mother's medical history. Son(s) Family Medical History: Unable to Obtain, Renal Disease Daughter(s) Family Medical History: Cancer <Maria R Alarcon A - Last Filed: 06/24/19 15:21> General Exam Limitations: physical limitation General appearance: alert, in no apparent distress Head exam: Present: atraumatic, normocephalic, normal inspection Eye exam: Present: EOMI (left eye), other (right eye chronic blindness). Absent: scleral icterus, conjunctival injection, periorbital swelling ENT exam: Present: normal exam, mucous membranes moist Neck exam: Present: normal inspection. Absent: tenderness, meningismus, lymphadenopathy Respiratory exam: Present: normal lung sounds bilaterally. Absent: respiratory distress, wheezes, rales, rhonchi, stridor Cardiovascular Exam: Present: regular rate, normal rhythm, normal heart sounds. Absent: systolic murmur, diastolic murmur, rubs, gallop, clicks GI/Abdominal exam: Present: soft, normal bowel sounds. Absent: distended, tenderness, guarding, rebound, rigid Extremities exam: Present: normal inspection, full ROM, normal capillary refill. Absent: tenderness, pedal edema, joint swelling, calf tenderness Back exam: Present: normal inspection Neurological exam: Present: alert, oriented X3, CN II-XII intact Psychiatric exam: Present: normal affect, normal mood Skin exam: Present: warm, dry, intact, normal color. Absent: rash <Maria R Alarcon Alfonso - Last Filed: 06/24/19 15:21> Course Vital Signs 06/19/19 06/19/19 06/19/19 15:47 16:56 18:42 Temperature 98.2 F Pulse Rate 67 59 L 61 Pulse Rate [ Right Supine] Respiratory 19 Rate Blood Pressure 128/55 130/52 178/69 Blood Pressure [Right Arm] O2 Sat by Pulse 98 97 96 Oximetry 06/20/19 06/20/19 06/20/19 01:00 02:00 03:00 Temperature Pulse Rate 65 66 64 Pulse Rate [ Right Supine] Respiratory 18 19 18 Rate Blood Pressure 147/70 151/89 129/54 Blood Pressure [Right Arm] O2 Sat by Pulse 97 97 96 Oximetry 06/20/19 08:00 Temperature 97.9 F Pulse Rate Pulse Rate [ 71 Right Supine] Respiratory 14 Rate Blood Pressure Blood Pressure 146/67 [Right Arm] O2 Sat by Pulse Oximetry EKG Findings - EKG Comments: EKG Findings:: EKG demonstrates normal sinus rhythm with ventricular rate of 67. NC interval 150. QRS 98. QTC of 456. No acute ST segment elevations or depressions concerning for ischemic change. Q waves in 3 and aVL <Maria R Alarcon - Last Filed: 06/24/19 15:21> Medical Decision Making - Lab Data Result diagrams: 06/19/19 16:00 06/19/19 16:00 <Jose Seymour - Last Filed: 06/19/19 20:21> - Lab Data Result diagrams: 06/19/19 16:00 06/19/19 16:00 <Maria R Alarcon - Last Filed: 06/24/19 15:21> - Medical Decision Making This patient was signed out to me by Dr. Alarcon patient's CT of the brain was normal CT and she'll showed no acute abnormality or aneurysm there was some stenosis of the bilateral carotids. I spoke with Dr. Nagel agreed to admit the patient admitted the patient I consult the neurology. (Jose Seymour) Upon arrival the patient was placed into room 9. A thorough history and physical exam was performed. NIH stroke scale demonstrates a score of 0. I did recommend laboratory studies. The patient was immediately sent over for a CT of her brain. CBC shows a hemoglobin 11. Chemistries are remarkable for a chloride of 110, CO2 21, glucose 234. Troponin is negative. CT is read as age- related atrophic and chronic small vessel ischemic change without acute intracranial process. Chest x-ray demonstrates no active cardiopulmonary pro cess. I did send the patient over for CT angios. She is pretreated. The patient was signed out to Dr. Seymour (Maria R Alarcon) - Lab Data Lab Results 06/19/19 06/19/19 06/19/19 Range/Units 16:00 16:00 16:00 WBC 6.0 (3.8-10.6) k/uL RBC 3.62 L (3.80-5.40) m/uL Hgb 11.0 L (11.4-16.0) gm/dL Hct 32.4 L (34.0-46.0) % MCV 89.6 (80.0-100.0) fL MCH 30.4 (25.0-35.0) pg MCHC 34.0 (31.0-37.0) g/dL RDW 13.3 (11.5-15.5) % Plt Count 177 (150-450) k/uL Neutrophils % 74 % Lymphocytes % 18 % Monocytes % 5 % Eosinophils % 1 % Basophils % 0 % Neutrophils # 4.4 (1.3-7.7) k/uL Lymphocytes # 1.1 (1.0-4.8) k/uL Monocytes # 0.3 (0-1.0) k/uL Eosinophils # 0.1 (0-0.7) k/uL Basophils # 0.0 (0-0.2) k/uL PT 11.0 (9.0-12.0) sec INR 1.0 (<1.2) APTT 24.4 (22.0-30.0) sec Sodium 140 (137-145) mmol/L Potassium 5.1 (3.5-5.1) mmol/L Chloride 110 H (98-107) mmol/L Carbon Dioxide 21 L (22-30) mmol/L Anion Gap 9 mmol/L BUN 18 H (7-17) mg/dL Creatinine 0.92 (0.52-1.04) mg/dL Est GFR (CKD-EPI)AfAm 67 (>60 ml/min/1.73 sqM) Est GFR (CKD-EPI)NonAf 58 (>60 ml/min/1.73 sqM) Glucose 234 H (74-99) mg/dL POC Glucose (mg/dL) (75-99) mg/dL POC Glu Tank Filler ID Estimated Ave Glu mg/dL Hemoglobin A1c (4.0-6.0) % Calcium 8.9 (8.4-10.2) mg/dL Total Bilirubin 0.6 (0.2-1.3) mg/dL AST 22 (14-36) U/L ALT 21 (9-52) U/L Alkaline Phosphatase 62 (38-126) U/L Troponin I (0.000-0.034) ng/mL Total Protein 6.5 (6.3-8.2) g/dL Albumin 3.7 (3.5-5.0) g/dL 06/19/19 06/19/19 06/19/19 Range/Units 16:00 16:00 19:50 WBC (3.8-10.6) k/uL RBC (3.80-5.40) m/uL Hgb (11.4-16.0) gm/dL Hct (34.0-46.0) % MCV (80.0-100.0) fL MCH (25.0-35.0) pg MCHC (31.0-37.0) g/dL RDW (11.5-15.5) % Plt Count (150-450) k/uL Neutrophils % % Lymphocytes % % Monocytes % % Eosinophils % % Basophils % % Neutrophils # (1.3-7.7) k/uL Lymphocytes # (1.0-4.8) k/uL Monocytes # (0-1.0) k/uL Eosinophils # (0-0.7) k/uL Basophils # (0-0.2) k/uL PT (9.0-12.0) sec INR (<1.2) APTT (22.0-30.0) sec Sodium (137-145) mmol/L Potassium (3.5-5.1) mmol/L Chloride (98-107) mmol/L Carbon Dioxide (22-30) mmol/L Anion Gap mmol/L BUN (7-17) mg/dL Creatinine (0.52-1.04) mg/dL Est GFR (CKD-EPI)AfAm (>60 ml/min/1.73 sqM) Est GFR (CKD-EPI)NonAf (>60 ml/min/1.73 sqM) Glucose (74-99) mg/dL POC Glucose (mg/dL) 225 H (75-99) mg/dL POC Glu Tank Filler ID [place], [place] Glu mg/dL 203 Hemoglobin A1c 8.7 H (4.0-6.0) % Calcium (8.4-10.2) mg/dL Total Bilirubin (0.2-1.3) mg/dL AST (14-36) U/L ALT (9-52) U/L Alkaline Phosphatase (38-126) U/L Troponin I <0.012 (0.000-0.034) ng/mL Total Protein (6.3-8.2) g/dL Albumin (3.5-5.0) g/dL Disposition Time of Disposition: 20:22 <Jose Seymour - Last Filed: 06/19/19 20:21> <Maria R Alarcon - Last Filed: 06/24/19 15:21> Clinical Impression: TIA (transient ischemic attack), Syncope Disposition: ADMITTED IP TO THIS HOSP Condition: Stable
[2019-06-19 16:10] LABS: Basophils % (A) 0 %; Eosinophils # (A) 0.1 k/uL (0-0.7); Eosinophils % (A) 1 %; HCT 32.4 % (34.0-46.0); Lymphocytes # (A) 1.1 k/uL (1.0-4.8); Lymphocytes % (A) 18 %; MCH 30.4 pg (25.0-35.0); MCV 89.6 fL (80.0-100.0); Mean Platelet Volume 8.5; Monocytes # (A) 0.3 k/uL (0-1.0); Monocytes % (A) 5 %; Neutrophils # (A) 4.4 k/uL (1.3-7.7); Neutrophils % (A) 74 %; Platelet Count 177 k/uL (150-450); RBC 3.62 m/uL (3.80-5.40); RDW 13.3 % (11.5-15.5)
[2019-06-19 16:18] LABS: Albumin 3.7 g/dL (3.5-5.0); Calcium 8.9 mg/dL (8.4-10.2); Potassium 5.1 mmol/L (3.5-5.1); Total Bilirubin 0.6 mg/dL (0.2-1.3); Total Protein 6.5 g/dL (6.3-8.2)
--- NOTE | 2019-06-19 16:24 | CT ---
EXAMINATION TYPE: CT brain wo con DATE OF EXAM: 06/19/2019 COMPARISON: 01/20/2019 HISTORY: Right sided facial droop with elevated blood pressure. CT DLP: 1084.[address] of the brain was performed. The ventricles, basal cisterns and sulci overlying the cerebral convexities demonstrate mild enlargem ent. There is no evidence for intracranial hemorrhage or sulcal effacement. There is decreased attenuation about the periventricular white matter and deep white matter of both c erebral hemispheres, compatible with chronic small vessel ischemia. Differential diagnosis does inclu de demyelination. Calcifications basal ganglia. No mass effects are seen.No midline shift. Osseous calvarium is intact. Right ocular the phthisis bulbi. If symptoms persist consider MRI. IMPRESSION: 1. Age related atrophic and chronic small vessel ischemic change without acute intracranial process s een at this time.
[2019-06-19 16:25] LABS: Partial Thromboplastin Time 24.4 sec (22.0-30.0)
--- NOTE | 2019-06-19 17:04 | XR ---
EXAMINATION TYPE: XR chest 2V DATE OF EXAM: 06/19/2019 COMPARISON: 05/24/2019 HISTORY: Shoulder pain altered mental status TECHNIQUE: Frontal and lateral views of the chest are obtained. FINDINGS: There is no heart failure nor confluent pneumonic infiltrate. There are sternal wires. Cos tophrenic angles are clear. Bony thorax is intact. IMPRESSION: No active cardiopulmonary disease. No adverse change.. Inspiration improved compared to last exam.
[2019-06-19] MEDS ORDERED: ACETAMINOPHEN TAB 325 MG TAB PO STA (17:35)
[2019-06-19] MEDS ORDERED: diphenhydrAMINE 50 MG/ML 1 ML VIAL IVP STA (17:46)
[2019-06-19] MEDS ORDERED: FAMOTIDINE 20 MG/2 ML VIAL IV STA (17:46)
[2019-06-19] MEDS ORDERED: methylPREDNISolone SOD SUCCI 125 MG/2 ML VIAL IV STA (17:46)
--- NOTE | 2019-06-19 19:20 | CT ---
EXAMINATION TYPE: CT angio head neck DATE OF EXAM: 06/19/2019 HISTORY: Right sided facial droop with elevated blood pressure. COMPARISON: CT brain 06/19/2019 CT DLP: 481.6 mGycm. Automated Exposure Control for Dose Reduction was Utilized. TECHNIQUE: CTA scan of the neck is performed with IV Contrast, patient injected with 65 mL of Isovue 370, axial images are obtained, coronal and sagittal reformatted images are reviewed. Three-D recons tructed images are created on an independent workstation and reviewed. FINDINGS: The ventricles, basal cisterns and sulci overlying the cerebral convexities demonstrate mild enlargem ent. There is no evidence for intracranial hemorrhage or sulcal effacement. There is decreased attenu ation about the periventricular white matter and deep white matter of both cerebral hemispheres, comp atible with chronic small vessel ischemia. Differential diagnosis does include demyelination. Calcifi cations basal ganglia. No mass effects are seen. No midline shift. Osseous calvarium is intact. Right ocular the phthisis bulbi. There is a hypoplastic A1 segment of the right anterior cerebral artery. Anterior and middle cerebral arteries are patent. Basilar artery is patent. Vertebral arteries are fairly symmetric. Posterior ce rebral artery in the right originates from the anterior circulation appears patent. Left posterior ce rebral artery is patent. No midline shift. Calcifications in basal ganglia incidentally noted. There is atherosclerotic plaque involving the carotid bifurcation greater on the right measuring appr oximately 75%. Plaque on the left measures less than 50%. There is sternotomy wires and there is atherosclerotic change of the aortic arch and origins of the g reat vessels. Atherosclerotic changes involving the origin of the left common carotid artery is seen. Could not exclude a significant stenosis. Hypertrophic and degenerative changes of the vertebral bod ies. Coronary artery calcification noted. IMPRESSION: 1. No sizable aneurysm. 2. Bilateral atherosclerotic plaque of the carotid bifurcations with a significant 75-80% stenosis in volving the proximal right ICA. 3. Significant stenosis of the origin of the left common carotid artery cannot be excluded.
[2019-06-19 19:51] LABS: Glucose,Whole Blood 225 mg/dL (75-99)
[2019-06-19] MEDS: LISINOPRIL 10 MG TAB PO SCH (22:35)
[2019-06-20 00:04] LABS: Appearance,Urine Clear (Clear); Bilirubin,Urine Negative (Negative); Blood,Urine Negative (Negative); Color,Urine Light Yellow; Glucose,Urine (UA) 2+ (Negative); Ketones,Urine Negative (Negative); Leukocyte Esterase,Urine Negative (Negative); Nitrite,Urine Negative (Negative); Protein,Urine Trace (Negative); Specific Gravity,Urine 1.029 (1.001-1.035); Urobilinogen,Urine <2.0 mg/dL (<2.0)
[2019-06-20 08:54] LABS: Cholesterol 156 mg/dL (<200); HDL Cholesterol 64 mg/dL (40-60); LDL Cholesterol,Calculated 79 mg/dL (0-99); Triglycerides 67 mg/dL (<150)
[2019-06-20] MEDS: LISINOPRIL 10 MG TAB PO SCH ×2 (09:07→19:58)
[2019-06-20] MEDS ORDERED: BENAZEPRIL HCL 20 MG PO SCH (10:15)
[2019-06-20] MEDS: glipiZIDE 10 MG TAB PO SCH ×2 (10:23→17:21)
[2019-06-20] MEDS: metFORMIN 500 MG TAB PO SCH ×2 (10:23→17:21)
[2019-06-20] MEDS: LEVOTHYROXINE 50 MCG TAB PO SCH (12:57)
[2019-06-20] MEDS: FAMOTIDINE 20 MG TAB PO SCH (12:59)
[2019-06-20] MEDS: CLOPIDOGREL 75 MG TAB PO SCH (12:59)
--- NOTE | 2019-06-20 13:33 | P.CNNES ---
History of Present Illness Consult date: 06/20/19 Requesting physician: Jose Seymour Reason for Consult: TIA syncope History of Present Illness: Patient is a 84-year-old female, who has history of dysphagia related to esophageal stricture, for which she gets esophageal dilation every 6 months for the last 5 years. Patient lives with her daughter, who was not present at the time of the incident yesterday. Yesterday, patient went to her primary physician's office and her blood pressure was noted to be slightly elevated. She was given blood pressure medication. Her blood pressure went down. She later went to lunch with her other daughter, who does not live with her. Apparently she had a piece of food that got caught in her throat. She extended her head upwards so she would not vomit., After she felt better, patient's family tried to talk to her but she could not talk as patient claims that she had food in her mouth. The same daughter, who does not live with her, who was present at the time of this incident episode, felt patient was having a stroke, called EMS and her blood pressure was noted to be very elevated, and patient was brought to the hospital. Patient states that she never passed out, did not have any focal symptoms. However emergency department records state that patient had some facial droop and focal weakness, which her daughter could not recall as to which side. Patient underwent computed tomography scan of the head, which revealed age- related atrophic and chronic small vessel ischemic changes without acute intracranial process. CTA of head and neck showed bilateral atherosclerotic plaque on the carotid bifurcations with a significant 75-80% stenosis involving the proximal right ICA. Significant stenosis at the origin of the left common carotid artery cannot be excluded. EKG showed normal sinus rhythm. Chest x-ray showed no acute cardiopulmonary disease. Patient's last hemoglobin A1c 8.2 on 05/26/2019. Liver panel is normal, CBC and electrolytes normal. Renal functions normal. Her total cholesterol is 156, LDL 79, HDL 64 and triglycerides 67. TSH normal. Patient has history of hypertension, diabetes, coronary artery disease with bypass surgery in 2007, blindness in the right eye from some ocular surgery in the past. Patient is ALLERGIC to aspirin, but patient is on Plavix 75 mg daily. Apparently patient had a CTA of neck on 02/01/2018, which revealed 60% stenosis in the left ICA and about 50-60% stenosis of the right ICA. Patient had multiple EEGs performed in the past, which were normal. Review of Systems Completely unremarkable. Denies headache, she does have chronic no vision in the right eye from previous surgery. Past Medical History Past Medical History: Coronary Artery Disease (CAD), Chest Pain / Angina, CV A/TIA, Diabetes Mellitus, Eye Disorder, GERD/Reflux, Hyperlipidemia, Hypertension, Osteoarthritis (OA), Syncope, Thyroid Disorder Additional Past Medical History / Comment(s): Pt recently admitted to [facility] with decreased responsiveness/R arm pain that resolved, bradycardia with loop recorder, CVA-1996 - L arm and L leg weakness, TIAs, vertigo, NIDDM type II, neuropathy bilateral hands,diabetic retinopathy L eye, blind R eye, dysphagia, esophageal strictures with dilations, hiatal hernia, chronic pain syndrome-low back pain pt associated with constipation, hypothyroidism, bilateral carpal tunnel syndrome, anemia, UTIs, urinary leakage, sinus problems. History of Any Multi-Drug Resistant Organisms: None Reported Past Surgical History: Bladder Surgery, Cholecystectomy, Coronary Bypass/CABG, Heart Catheterization, Hysterectomy Additional Past Surgical History / Comment(s): Loop recorder, bladder suspension, 2007 CABG-4 vessel, multiple EGDs/dilations, colonoscopy, bilateral cataract removals. Past Anesthesia/Blood Transfusion Reactions: No Reported Reaction, Postoperative Nausea & Vomiting (PONV) Smoking Status: Never smoker - Past Family History Father Family Medical History: Liver Disease Additional Family Medical History / Comment(s): Father of cirrhosis. He was a drinker. Mother Family Medical History: Myocardial Infarction (NC) Additional Family Medical History / Comment(s): Mother of a NC at the age of 62 yrs. Son(s) Family Medical History: Dementia, Renal Disease Daughter(s) Family Medical History: Cancer Medications and Allergies Home Medications Medication Instructions Recorded Confirmed Type Benazepril HCl 20 mg PO BID 11/05/13 06/19/19 History Levothyroxine Sodium [Synthroid] 50 mcg PO DAILY 01/07/17 06/19/19 History Clopidogrel [Plavix] 75 mg PO DAILY 05/24/19 06/19/19 History glyBURIDE [Diabeta] 5 mg PO BID-W/MEALS 05/24/19 06/19/19 History Famotidine [Pepcid] 20 mg PO DAILY 06/19/19 06/19/19 History metFORMIN HCL [Glucophage] 500 mg PO BID 06/20/19 06/20/19 History Allergies Allergy/AdvReac Type Severity Reaction Status Date / Time aspirin Allergy Rash/Hives Verified 06/19/19 20:46 fish derived Allergy Rash/Hives Verified 06/19/19 20:46 Iodinated Contrast Media Allergy Rash/Hives Verified 06/19/19 20:46 [Iodinated Contrast Media - IV Dye] Iodine and Iodide Containing Allergy Rash/Hives Verified 06/19/19 20:46 Produc shellfish derived [Shellfish] Allergy Rash/Hives Verified 06/19/19 20:46 Physical Examination - Vital Signs Vital Signs: Vital Signs Temp Pulse Pulse Resp BP BP Pulse Ox 06/20/19 08:00 97.9 F 71 14 146/67 06/20/19 03:00 64 18 129/54 96 06/20/19 02:00 66 19 151/89 97 06/20/19 01:00 65 18 147/70 97 06/19/19 18:42 61 19 178/69 96 06/19/19 16:56 59 L 19 130/52 97 06/19/19 15:47 98.2 F 67 19 128/55 98 Intake and Output 06/19/19 06/20/19 06/20/19 22:59 06:59 14:59 Other: Weight 67.585 kg 67.585 kg On examination patient is an elderly female, very pleasant in no acute distress. Patient is alert and awake fully oriented. Speech and leg with fu nctions are normal. Attention and concentration fund of knowledge is adequate for age. On cranial examination patient has end-stage right eye. Her left pupil is round and reacting visual bartlett are full on confrontation L in the left eye. Her face is symmetric and tongue protrudes the midline. Palatal elevation normal muscle strength is normal in the arms and legs reflexes symmetric no ataxia. Tone and bulk of muscles normal. No obvious bruit S1 and S2 audible Results - Laboratory Findings CBC and BMP: 06/19/19 16:00 06/19/19 16:00 Abnormal Lab Findings: Abnormal Labs 06/19/19 06/19/19 06/19/19 16:00 16:00 19:50 RBC 3.62 L Hgb 11.0 L Hct 32.4 L Chloride 110 H Carbon Dioxide 21 L BUN 18 H Glucose 234 H POC Glucose (mg/dL) 225 H HDL Cholesterol Urine Protein Urine Glucose (UA) 06/19/19 06/20/19 23:30 07:05 RBC Hgb Hct Chloride Carbon Dioxide BUN Glucose POC Glucose (mg/dL) HDL Cholesterol 64 H Urine Protein Trace H Urine Glucose (UA) 2+ H Assessment and Plan Assessment: * 84-year-old female, admitted with an episode of near syncope. Some focal symptoms also noted by family members, therefore need to rule out TIA. * Bilateral ICA stenosis noted on CTA. * Diabetes, not well controlled * Hypertension * Coronary artery disease * History of esophageal stricture Plan: * Suggest vascular surgical consultation for further evaluation of bilateral ICA stenosis and possible TIA. Patient may benefit from CEA. * If patient height risk for CEA, then ICA stenting could be considered also. * Continue aggressive control of vascular risk factors including hypertension, diabetes and dyslipidemia. * Continue Plavix 75 mg. Consider starting statins for dyslipidemia.
--- NOTE | 2019-06-20 16:31 | P.GSCN ---
History of Present Illness Consult date: 06/20/19 Reason for Consult: Carotid stenosis, possible TIA History of present illness: Patient is a pleasant 84-year-old female with a past medical history of TIA, diabetes, CAD, and hypertension. Patient was seen in her PCPs office yesterday and had elevated blood pressure, she was given blood pressure medication. She then went to lunch with her daughter who called 911 after patient was thought to be unresponsive. Upon arrival to the ED patient's blood pressure was elevated. Patient states that she has a history of esophageal strictures and has to have dilation approximately every 6 months. Patient states she was eating solid piece of food and it had become lodged in her throat, this is when her daughter had thought that she was having a stroke and unresponsive. Patient states she has prior CVA approximately 1996 with some residual left-sided weakness. Patient is a poorly controlled diabetic has diabetic retinopathy and blind in the right eye. Patient underwent computed tomography scan of the head which revealed age-related atrophic and chronic small vessel ischemic changes without any acute intracranial process. CT of the head and neck showed bilateral arthrosclerotic plaque in the carotid bifurcations with a 75-80% stenosis involving the proximal right ICA. There is also significant stenosis at the origin of the left common carotid artery could not be excluded. Patient denies any shortness of breath chest pain or weakness. Patient was sitting up eating a regular diet. Patient has an ALLERGY to aspirin but is taking Plavix 75 mg daily. Recent labs revealed hemoglobin 11, hematocrit 32.4, platelets 177. BUN 18, creatinine 0.92. Total cholesterol 156, triglycerides 67, LDL 79, and HDL 64. Review of Systems Review of systems completed pertinent positive and negatives in the HPI Past Medical History Past Medical History: Coronary Artery Disease (CAD), Chest Pain / Angina, CVA/TIA, Diabetes Mellitus, Eye Disorder, GERD/Reflux, Hyperlipidemia, Hypertension, Osteoarthritis (OA), Syncope, Thyroid Disorder Additional Past Medical History / Comment(s): Pt recently admitted to [facility] with decreased responsiveness/R arm pain that resolved, bradycardia with loop recorder, CVA-1996 - L arm and L leg weakness, TIAs, vertigo, NIDDM type II, neuropathy bilateral hands,diabetic retinopathy L eye, blind R eye, dysphagia, esophageal strictures with dilations, hiatal hernia, chronic pain syndrome-low back pain pt associated with constipation, hypothyroidism, bilateral carpal tunnel syndrome, anemia, UTIs, urinary leakage, sinus problems. History of Any Multi-Drug Resistant Organisms: None Reported Past Surgical History: Bladder Surgery, Cholecystectomy, Coronary Bypass/CABG, Heart Catheterization, Hysterectomy Additional Past Surgical History / Comment(s): Loop recorder, bladder suspension, 2007 CABG-4 vessel, multiple EGDs/dilations, colonoscopy, bilateral cataract removals. Past Anesthesia/Blood Transfusion Reactions: No Reported Reaction, Postoperative Nausea & Vomiting (PONV) Smoking Status: Never smoker - Past Family History Father Family Medical History: Liver Disease Additional Family Medical History / Comment(s): Father of cirrhosis. He was a drinker. Mother Family Medical History: Myocardial Infarction ([place]) Additional Family Medical History / Comment(s): Mother of a [place] at the age of 62 yrs. Son(s) Family Medical History: Dementia, Renal Disease Daughter(s) Family Medical History: Cancer Medications and Allergies Home Medications Medication Instructions Recorded Confirmed Type Benazepril HCl 20 mg PO BID 11/05/13 06/19/19 History Levothyroxine Sodium [Synthroid] 50 mcg PO DAILY 01/07/17 06/19/19 History Clopidogrel [Plavix] 75 mg PO DAILY 05/24/19 06/19/19 History glyBURIDE [Diabeta] 5 mg PO BID-W/MEALS 05/24/19 06/19/19 History Famotidine [Pepcid] 20 mg PO DAILY 06/19/19 06/19/19 History metFORMIN HCL [Glucophage] 500 mg PO BID 06/20/19 06/20/19 History Allergies Allergy/AdvReac Type Severity Reaction Status Date / Time aspirin Allergy Rash/Hives Verified 06/19/19 20:46 fish derived Allergy Rash/Hives Verified 06/19/19 20:46 Iodinated Contrast Media Allergy Rash/Hives Verified 06/19/19 20:46 [Iodinated Contrast Media - IV Dye] Iodine and Iodide Containing Allergy Rash/Hives Verified 06/19/19 20:46 Produc shellfish derived [Shellfish] Allergy Rash/Hives Verified 06/19/19 20:46 Surgical - Exam Vital Signs Temp Pulse Resp BP Pulse Ox 98.2 F 67 19 128/55 98 06/19/19 15:47 06/19/19 15:47 06/19/19 15:47 06/19/19 15:47 06/19/19 15:47 General appearance: The patient is alert, oriented, in no acute distress. HET: Head is normocephalic and atraumatic. Left pupil is round, and reactive. Pt. is blind in right eye. Neck: Supple without lymphadenopathy. Trachea midline. No carotid bruit. Heart: S1 S2. Regular rate and rhythm. Lungs: No crackles or wheezes are heard. Abdomen: Soft, nontender, nondistended with bowel sounds. Extremities: Normal skin color and turgor. No cyanosis, rash, ulceration, clubbing, or edema. Radial and pedal pulses are 2/4 bilaterally. Neurological: No focal deficits. Strength and sensation are grossly intact. Face is symmetric, normal speech. Patient has minimal weakness in left lower extremity compared to right Results - Labs 06/19/19 16:00 06/19/19 16:00 Abnormal Lab Results - Last 24 Hours (Table) 06/19/19 06/19/19 06/19/19 Range/Units 16:00 16:00 19:50 RBC 3.62 L (3.80-5.40) m/uL Hgb 11.0 L (11.4-16.0) gm/dL Hct 32.4 L (34.0-46.0) % Chloride 110 H (98-107) mmol/L Carbon Dioxide 21 L (22-30) mmol/L BUN 18 H (7-17) mg/dL Glucose 234 H (74-99) mg/dL POC Glucose (mg/dL) 225 H (75-99) mg/dL HDL Cholesterol (40-60) mg/dL Urine Protein (Negative) Urine Glucose (UA) (Negative) 06/19/19 06/20/19 Range/Units 23:30 07:05 RBC (3.80-5.40) m/uL Hgb (11.4-16.0) gm/dL Hct (34.0-46.0) % Chloride (98-107) mmol/L Carbon Dioxide (22-30) mmol/L BUN (7-17) mg/dL Glucose (74-99) mg/dL POC Glucose (mg/dL) (75-99) mg/dL HDL Cholesterol 64 H (40-60) mg/dL Urine Protein Trace H (Negative) Urine Glucose (UA) 2+ H (Negative) Diabetes panel 06/19/19 06/20/19 Range/Units 16:00 07:05 Sodium 140 (137-145) mmol/L Potassium 5.1 (3.5-5.1) mmol/L Chloride 110 H (98-107) mmol/L Carbon Dioxide 21 L (22-30) mmol/L BUN 18 H (7-17) mg/dL Creatinine 0.92 (0.52-1.04) mg/dL Glucose 234 H (74-99) mg/dL Calcium 8.9 (8.4-10.2) mg/dL AST 22 (14-36) U/L ALT 21 (9-52) U/L Alkaline Phosphatase 62 (38-126) U/L Total Protein 6.5 (6.3-8.2) g/dL Albumin 3.7 (3.5-5.0) g/dL Triglycerides 67 (<150) mg/dL HDL Cholesterol 64 H (40-60) mg/dL Calcium panel 06/19/19 Range/Units 16:00 Calcium 8.9 (8.4-10.2) mg/dL Albumin 3.7 (3.5-5.0) g/dL Pituitary panel 06/19/19 Range/Units 16:00 Sodium 140 (137-145) mmol/L Potassium 5.1 (3.5-5.1) mmol/L Chloride 110 H (98-107) mmol/L Carbon Dioxide 21 L (22-30) mmol/L BUN 18 H (7-17) mg/dL Creatinine 0.92 (0.52-1.04) mg/dL Glucose 234 H (74-99) mg/dL Calcium 8.9 (8.4-10.2) mg/dL Adrenal panel 06/19/19 Range/Units 16:00 Sodium 140 (137-145) mmol/L Potassium 5.1 (3.5-5.1) mmol/L Chloride 110 H (98-107) mmol/L Carbon Dioxide 21 L (22-30) mmol/L BUN 18 H (7-17) mg/dL Creatinine 0.92 (0.52-1.04) mg/dL Glucose 234 H (74-99) mg/dL Calcium 8.9 (8.4-10.2) mg/dL Total Bilirubin 0.6 (0.2-1.3) mg/dL AST 22 (14-36) U/L ALT 21 (9-52) U/L Alkaline Phosphatase 62 (38-126) U/L Total Protein 6.5 (6.3-8.2) g/dL Albumin 3.7 (3.5-5.0) g/dL Assessment and Plan Assessment: Bilateral ICA stenosis noted on CTA Near-syncope Diabetes, uncontrolled Hypertension line coronary artery disease history of esophageal strictures with dilation Plan: Discussed patient and CTA findings with Dr. Sorto. No surgical intervention recommended at this time. Continue Plavix 75 mg, and recommend starting a statin. Will likely follow-up in outpatient setting. We'll continue to follow during this hospital stay. Thank you for this consultation. The above dictated assessment and findings were discussed with Dr. Cervantes. The impression and plan of care have been directed as dictated.
[2019-06-20] MEDS ORDERED: LISINOPRIL 20 MG TAB PO STA (17:05)
[2019-06-20 19:47] LABS: Glucose,Whole Blood 176 mg/dL (75-99)
--- NOTE | 2019-06-20 20:36 | P.HPIM ---
History of Present Illness H&P Date: 06/20/19 Chief Complaint: decreased responsiveness History of presenting complaint: This is a pleasant 84-year-old patient who follows with Dr. Ramirez. Rather extensive medical history to include coronary coronary artery disease, left- sided weakness from prior stroke, diabetes, blind in the right eye, hypertension, hyperlipidemia, hypothyroid, chronic pain, osteoarthritis, periph eral neuropathy, esophageal strictures , urinary incontinence. At baseline uses a walker. Patient was here in January of this year. had episode of decreased responsiveness. Found to have some bradycardia. Loop recorder was placed. Patient was seen by neurology on that admission. Patient's MRI of the brain was unremarkable. EEG did not show any seizure activity.patient had further episodes of decreased responsiveness. On this occasion patient's blood pressure was a bit low this morning. At her doctor's appointment she had actually blood pressure was a bit high. She was at lunch with her daughter and had an episode of difficulty speaking right side of the face and droopy and also for the week to use the right side of the body. patient slumped and became unresponsive. Within 5 minutes she was a bit confused and aphasic. And regained her speech. No focal focal weakness. Today patient's with her daughter and her . Review of systems: GEN.: Tired EYES: Blind in the right eye HEENT: Decreased hearing NECK: None RESPIRATORY: None CARDIOVASCULAR: None GASTROINTESTINAL: None GENITOURINARY: None MUSCULOSKELETAL: As above LYMPHATICS: None HEMATOLOGICAL: None PSYCHIATRY: None NEUROLOGICAL: As above Social history: Does not smoke or drink alcohol. . Does use a walker Physical examination: VITAL SIGNS: 97.4, 65, 20, 146/67, 93% on room air GENERAL: sitting up in a chair, comfortable EYES: Blind in the right eye HEENT: External appearance of nose and ears normal, oral cavity grossly normal. NECK: JVD not raised; masses not palpable. HEART: First and second heart sounds are normal; no edema. LUNGS: Respiratory rate normal; clear to auscultation. ABDOMEN: Soft, nontender, liver spleen not palpable, no masses palpable. PSYCH: Alert and oriented x3; mood and affect normal. MUSCULOSKELETAL: evidence of OA in the joints NEUROLOGICAL: Chronic weakness on the left side. Blind in the right eye... INVESTIGATIONS, reviewed in the clinical context white count 6 hemoglobin 11 platelets 137 progression 5.1 bun [address] scan of brain-nonspecific chronic changes CT angiogram of the brain-75-80% stenosis involving the proximal right ICA, significant stenosis origin of the left CCA. Assessment: -this is a patient is significant bilateral carotid artery stenosis, with findings of right facial droop and change in speech and also evidence of loss of responsiveness. -chronic right shoulder dysfunction -Coronary artery disease -Diabetes mellitus type 2 on oral hypoglycemic -Blind in the right eye -Essential hypertension -Hyperlipidemia -Hypothyroidism -Primary osteoarthritis -Diabetic peripheral neuropathy -Chronic urinary incontinence -Chronic gait dysfunction uses a walker Plan: Care was discussed with Dr. Torrez from neurology. Based on the CTA findings and the focal symptoms. Patient will require carotid artery intervention in view of surgery or stent placement. Home medications resumed. Vascular surgery will be consulted for the same. Care was discussed with the patient and the family the bedside. Questions were answered. Lovenox for DVT prophylaxis. Home medications are to be resumed. Past Medical History Past Medical History: Coronary Artery Disease (CAD), Chest Pain / Angina, CVA/TIA, Diabetes Mellitus, Eye Disorder, GERD/Reflux, Hyperlipidemia, Hypertension, Osteoarthritis (OA), Syncope, Thyroid Disorder Additional Past Medical History / Comment(s): Pt recently admitted to [facility] with decreased responsiveness/R arm pain that resolved, bradycardia with loop recorder, CVA-1996 - L arm and L leg weakness, TIAs, vertigo, NIDDM type II, neuropathy bilateral hands,diabetic retinopathy L eye, blind R eye, dysphagia, esophageal strictures with dilations, hiatal hernia, chronic pain syndrome-low back pain pt associated with constipation, hypothyroidism, bilateral carpal tunnel syndrome, anemia, UTIs, urinary leakage, sinus problems. History of Any Multi-Drug Resistant Organisms: None Reported Past Surgical History: Bladder Surgery, Cholecystectomy, Coronary Bypass/CABG, Heart Catheterization, Hysterectomy Additional Past Surgical History / Comment(s): Loop recorder, bladder suspension, 2007 CABG-4 vessel, multiple EGDs/dilations, colonoscopy, bilateral cataract removals. Past Anesthesia/Blood Transfusion Reactions: No Reported Reaction, Postoperative Nausea & Vomiting (PONV) Smoking Status: Never smoker - Past Family History Father Family Medical History: Liver Disease Additional Family Medical History / Comment(s): Father of cirrhosis. He was a drinker. Mother Family Medical History: Myocardial Infarction ([place]) Additional Family Medical History / Comment(s): Mother of a [place] at the age of 62 yrs. Son(s) Family Medical History: Dementia, Renal Disease Daughter(s) Family Medical History: Cancer Medications and Allergies Home Medications Medication Instructions Recorded Confirmed Type Benazepril HCl 20 mg PO BID 11/05/13 06/19/19 History Levothyroxine Sodium [Synthroid] 50 mcg PO DAILY 01/07/17 06/19/19 History Clopidogrel [Plavix] 75 mg PO DAILY 05/24/19 06/19/19 History glyBURIDE [Diabeta] 5 mg PO BID-W/MEALS 05/24/19 06/19/19 History Famotidine [Pepcid] 20 mg PO DAILY 06/19/19 06/19/19 History metFORMIN HCL [Glucophage] 500 mg PO BID 06/20/19 06/20/19 History Allergies Allergy/AdvReac Type Severity Reaction Status Date / Time aspirin Allergy Rash/Hives Verified 06/19/19 20:46 fish derived Allergy Rash/Hives Verified 06/19/19 20:46 Iodinated Contrast Media Allergy Rash/Hives Verified 06/19/19 20:46 [Iodinated Contrast Media - IV Dye] Iodine and Iodide Containing Allergy Rash/Hives Verified 06/19/19 20:46 Produc shellfish derived [Shellfish] Allergy Rash/Hives Verified 06/19/19 20:46 Physical Exam Vitals: Vital Signs Temp Pulse Pulse Resp BP BP Pulse Ox 06/20/19 08:00 97.9 F 71 14 146/67 06/20/19 03:00 64 18 129/54 96 06/20/19 02:00 66 19 151/89 97 06/20/19 01:00 65 18 147/70 97 06/19/19 18:42 61 19 178/69 96 06/19/19 16:56 59 L 19 130/52 97 06/19/19 15:47 98.2 F 67 19 128/55 98 Intake and Output 06/19/19 06/20/19 06/20/19 22:59 06:59 14:59 Other: Weight 67.585 kg 67.585 kg Results CBC & Chem 7: 06/19/19 16:00 06/19/19 16:00 Labs: Abnormal Lab Results - Last 24 Hours (Table) 06/19/19 06/19/19 06/19/19 Range/Units 16:00 16:00 19:50 RBC 3.62 L (3.80-5.40) m/uL Hgb 11.0 L (11.4-16.0) gm/dL Hct 32.4 L (34.0-46.0) % Chloride 110 H (98-107) mmol/L Carbon Dioxide 21 L (22-30) mmol/L BUN 18 H (7-17) mg/dL Glucose 234 H (74-99) mg/dL POC Glucose (mg/dL) 225 H (75-99) mg/dL HDL Cholesterol (40-60) mg/dL Urine Protein (Negative) Urine Glucose (UA) (Negative) 06/19/19 06/20/19 Range/Units 23:30 07:05 RBC (3.80-5.40) m/uL Hgb (11.4-16.0) gm/dL Hct (34.0-46.0) % Chloride (98-107) mmol/L Carbon Dioxide (22-30) mmol/L BUN (7-17) mg/dL Glucose (74-99) mg/dL POC Glucose (mg/dL) (75-99) mg/dL HDL Cholesterol 64 H (40-60) mg/dL Urine Protein Trace H (Negative) Urine Glucose (UA) 2+ H (Negative) Thrombosis Risk Factor Assmnt - Choose All That Apply Any of the Below Risk Factors Present?: Yes Each Factor Represents 1 point: Obesity (BMI >25) Other Risk Factors: Yes Each Risk Factor Represents 3 Points: Age 75 years or older Other congenital or acquired thrombophilia - If yes, enter type in comment: No Thrombosis Risk Factor Assessment Total Risk Factor Score: 4 Thrombosis Risk Factor Assessment Level: Moderate Risk
[2019-06-20 20:37] LABS: Glucose,Whole Blood 160 mg/dL (75-99)
[2019-06-21 05:52] LABS: Glucose,Whole Blood 148 mg/dL (75-99)
[2019-06-21] MEDS: LEVOTHYROXINE 50 MCG TAB PO SCH (06:28)
[2019-06-21] MEDS: glipiZIDE 10 MG TAB PO SCH ×2 (06:28→17:09)
[2019-06-21] MEDS: metFORMIN 500 MG TAB PO SCH (06:28)
[2019-06-21] MEDS: FAMOTIDINE 20 MG TAB PO SCH (07:58)
[2019-06-21] MEDS: LISINOPRIL 10 MG TAB PO SCH (07:58)
[2019-06-21] MEDS: CLOPIDOGREL 75 MG TAB PO SCH (07:58)
[2019-06-21 11:07] LABS: Glucose,Whole Blood 182 mg/dL (75-99)
[2019-06-21 11:57] LABS: Glucose,Whole Blood 176 mg/dL (75-99)
[2019-06-21] MEDS ORDERED: CHLORTHALIDONE 25 MG TAB PO SCH (13:45)
--- NOTE | 2019-06-21 13:50 | P.PN ---
Subjective Progress Note Date: 06/21/19 She was seen and evaluated today today sitting up in chair. Patient denies any focal deficits, weakness, shortness of breath or chest pain. She was tolerating regular diet without any difficulty swallowing. Objective - Vital Signs Vital signs: Vital Signs Temp 98.1 F 06/21/19 08:15 Pulse 71 06/21/19 10:56 Resp 18 06/21/19 10:56 BP 211/89 06/21/19 13:36 Pulse Ox 96 06/21/19 10:56 Intake & Output 06/20/19 06/21/19 06/21/19 18:59 06:59 18:59 Intake Total 360 120 Output Total 200 Balance 360 -80 Weight 67.585 kg 70.6 kg Intake: Oral 360 120 Output: Urine 200 Other: # Voids 1 - Exam General appearance: The patient is alert, oriented, in no acute distress. HET: Head is normocephalic and atraumatic. Left pupil equal and reactive, blind in right eye Neck: Supple without lymphadenopathy. Trachea midline. Heart: S1 S2. Regular rate and rhythm. Lungs: No crackles or wheezes are heard. Extremities: Normal skin color and turgor. No cyanosis, rash, ulceration, clubbing, or edema. Radial and pedal pulses are 2/4 bilaterally. Neurological: No focal deficits. Strength and sensation are grossly intact. Mild lower extremity weakness compared to right. - Labs CBC & Chem 7: 06/19/19 16:00 06/19/19 16:00 Labs: Abnormal Lab Results - Last 24 Hours (Table) 06/20/19 06/20/19 06/21/19 Range/Units 19:44 20:35 05:52 POC Glucose (mg/dL) 176 H 160 H 148 H (75-99) mg/dL 06/21/19 06/21/19 Range/Units 10:54 11:51 POC Glucose (mg/dL) 182 H 176 H (75-99) mg/dL Assessment and Plan Assessment: Bilateral ICA stenosis noted on CTA Near-syncope Diabetes, uncontrolled Hypertension Coronary artery disease History of esophageal strictures with dilation Plan: Dr. Cervantes examined patient and reviewed CT angiogram. No surgical intervention recommended at this time. Continue Plavix 75 mg, and recommend starting a statin. Dr. Cervantes discused with patient that she will follow-up in the office in 1-2 weeks and there is no need for surgical intervention at this time. Patient is okay for discharge from our standpoint. Thank you for this consultation. The above dictated assessment and findings were discussed with Dr. Cervantes. The impression and plan of care have been directed as dictated.
[2019-06-21] MEDS: METOPROLOL TARTRATE 25 MG TAB PO SCH ×2 (14:11→20:13)
--- NOTE | 2019-06-21 14:57 | P.PN ---
Subjective Progress Note Date: 06/21/19 patient denies any further syncopal spells or focal symptoms. Patient's was also present. Objective - Vital Signs Vital signs: Vital Signs Temp 98.1 F 06/21/19 08:15 Pulse 71 06/21/19 10:56 Resp 18 06/21/19 10:56 BP 211/89 06/21/19 13:36 Pulse Ox 96 06/21/19 10:56 Intake & Output 06/20/19 06/21/19 06/21/19 18:59 06:59 18:59 Intake Total 360 120 Output Total 200 Balance 360 -80 Weight 67.585 kg 70.6 kg Intake: Oral 360 120 Output: Urine 200 Other: # Voids 1 1 - Exam essentially unchanged. - Labs CBC & Chem 7: 06/19/19 16:00 06/19/19 16:00 Labs: Abnormal Lab Results - Last 24 Hours (Table) 06/20/19 06/20/19 06/21/19 Range/Units 19:44 20:35 05:52 POC Glucose (mg/dL) 176 H 160 H 148 H (75-99) mg/dL 06/21/19 06/21/19 Range/Units 10:54 11:51 POC Glucose (mg/dL) 182 H 176 H (75-99) mg/dL Assessment and Plan Assessment: * 84-year-old female, admitted with an episode of near syncope. Some focal symptoms also noted by family members, therefore need to rule out TIA. * Bilateral ICA stenosis noted on CTA. * Diabetes, not well controlled * Hypertension * Coronary artery disease * History of esophageal stricture Plan: * Vascular surgical input appreciated. Patient to follow up with vascular surgery as an outpatient. * If patient height risk for CEA, then ICA stenting could be considered also. * Continue aggressive control of vascular risk factors including hypertension, diabetes and dyslipidemia. * Continue Plavix 75 mg. Consider starting statins for dyslipidemia. * Neurologically clear for discharge.
[2019-06-21] MEDS: LISINOPRIL-HCTZ 20-12.5 MG 1 EACH TAB PO SCH (17:09)
[2019-06-21 17:21] LABS: Glucose,Whole Blood 205 mg/dL (75-99)
[2019-06-21] MEDS: INSULIN ASPART (NovoLOG) 100 UNIT/ML VIAL SQ SCH ×2 (17:43→21:35)
--- NOTE | 2019-06-21 18:16 | P.PN ---
Progress Note - Text Progress Note Date: 06/21/19 Chief Complaint: decreased responsiveness History of presenting complaint: This is a pleasant 84-year-old patient who follows with Dr. Ramirez. Rather extensive medical history to include coronary coronary artery disease, left- sided weakness from prior stroke, diabetes, blind in the right eye, hypertension, hyperlipidemia, hypothyroid, chronic pain, osteoarthritis, peripheral neuropathy, esophageal strictures , urinary incontinence. At baseline uses a walker. Patient was here in January of this year. had episode of decreased responsiveness. Found to have some bradycardia. Loop recorder was placed. Patient was seen by neurology on that admission. Patient's MRI of the brain was unremarkable. EEG did not show any seizure activity.patient had further episodes of decreased responsiveness. On this occasion patient's blood pressure was a bit low this morning. At her doctor's appointment she had actually blood pressure was a bit high. She was at lunch with her daughter and had an episode of difficulty speaking right side of the face and droopy and also for the week to use the right side of the body. patient slumped and became unresponsive. Within 5 minutes she was a bit confused and aphasic. And regained her speech. No focal focal weakness. Today patient's with her daughter and her . admitted with a diagnosis of TIA. Patient will need surgery/stent to ICA as discussed with neurology. Today-sitting up comfortably in chair. Blood pressures been running high. Medications being adjusted. No other symptoms. Continue diet. Review of systems: Was done for constitutional, cardiovascular, GI, pulmonary. relevant finding as above Active Medications Atorvastatin Calcium (Lipitor) 20 mg PO [facility] Clopidogrel Bisulfate (Plavix) 75 mg PO DAILY [facility] Last Admin: 06/21/19 07:58 Dose: 75 mg Documented by: Famotidine (Pepcid) 20 mg PO DAILY [facility] Last Admin: 06/21/19 07:58 Dose: 20 mg Documented by: Glipizide (Glucotrol) 10 mg PO BID-W/MEALS [facility] Last Admin: 06/21/19 17:09 Dose: 10 mg Documented by: Lisinopril/HCTZ (Zestoretic 20-12.5) 1 each PO BID [facility] Last Admin: 06/21/19 17:09 Dose: 1 each Documented by: Insulin Aspart (Novolog) 0 unit SQ [facility]; Protocol Last Admin: 06/21/19 17:43 Dose: 2 unit Documented by: Levothyroxine Sodium (Synthroid) 50 mcg PO DAILY@0630 [facility] Last Admin: 06/21/19 06:28 Dose: 50 mcg Documented by: Metoprolol Tartrate (Lopressor) 25 mg PO TID [facility] Last Admin: 06/21/19 14:11 Dose: 25 mg Documented by: Physical examination: VITAL SIGNS: 98.1, 69, 18, 2180 81, 96% room air GENERAL: sitting up in a chair, comfortable EYES: Blind in the right eye HEENT: External appearance of nose and ears normal, oral cavity grossly normal. NECK: JVD not raised; masses not palpable. HEART: First and second heart sounds are normal; no edema. LUNGS: Respiratory rate normal; clear to auscultation. ABDOMEN: Soft, nontender, liver spleen not palpable, no masses palpable. PSYCH: Alert and oriented x3; mood and affect normal. MUSCULOSKELETAL: evidence of OA in the joints NEUROLOGICAL: Chronic weakness on the left side. Blind in the right eye... INVESTIGATIONS, reviewed in the clinical context white count 6 hemoglobin 11 platelets 137 progression 5.1 bun [address] scan of brain-nonspecific chronic changes CT angiogram of the brain-75-80% stenosis involving the proximal right ICA, significant stenosis origin of the left CCA. Assessment: -TIA, felt to be contributing from internal carotid artery stenosis. Will need/stent/surgery -chronic right shoulder dysfunction -Coronary artery disease -Diabetes mellitus type 2 on oral hypoglycemic -Blind in the right eye -Essential hypertension, accelerated -Hyperlipidemia -Hypothyroidism -Primary osteoarthritis -Diabetic peripheral neuropathy -Chronic urinary incontinence -Chronic gait dysfunction uses a walker Plan: medication adjusted. Benazepril switched to lisinopril hydrochlorothiazide 20/12.5 twice a day and also Lopressor 25 mg 3 times a day added. Keep a close eye on blood pressure.
[2019-06-21] MEDS ORDERED: ATORVASTATIN 20 MG TAB PO SCH (21:00)
[2019-06-21 21:02] LABS: Glucose,Whole Blood 144 mg/dL (75-99)
[2019-06-22] MEDS: LEVOTHYROXINE 50 MCG TAB PO SCH (05:48)
[2019-06-22 06:29] LABS: Glucose,Whole Blood 201 mg/dL (75-99)
[2019-06-22] MEDS: INSULIN ASPART (NovoLOG) 100 UNIT/ML VIAL SQ SCH ×4 (06:43→12:46)
[2019-06-22] MEDS: glipiZIDE 10 MG TAB PO SCH ×2 (06:43→12:27)
[2019-06-22] MEDS: METOPROLOL TARTRATE 25 MG TAB PO SCH ×2 (09:19→12:27)
[2019-06-22] MEDS: FAMOTIDINE 20 MG TAB PO SCH (09:19)
[2019-06-22] MEDS: CLOPIDOGREL 75 MG TAB PO SCH (09:19)
[2019-06-22] MEDS: LISINOPRIL-HCTZ 20-12.5 MG 1 EACH TAB PO SCH (09:19)
[2019-06-22 11:52] VITALS: BP 166/76; PULSE 65; RESP 20; TEMP 98
[2019-06-22 12:18] LABS: Glucose,Whole Blood 262 mg/dL (75-99)
[2019-06-22 14:11] LABS: Hemoglobin A1C 8.7 % (4.0-6.0)
--- NOTE | 2019-06-22 22:49 | P.DS ---
Providers Date of admission: 06/19/19 20:24 Expected date of discharge: 06/22/19 Attending physician: Elan Nagel Consults: 06/19/19 20:24 Consult Physician Routine Consulting Provider: Jeromy Chavez Consult Reason/Comments: TIA, syncope Do you want consulting provider notified?: Yes 06/20/19 13:35 Consult Physician Urgent Consulting Provider: Moise Price Consult Reason/Comments: Bilateral ICA stenosis, possible TIA, ?CEA vs Stent Do you want consulting provider notified?: Yes Primary care physician: Esvin Ramirez [facility] Course: Chief Complaint: decreased responsiveness Hospital course: This is a pleasant 84-year-old patient who follows with Dr. Ramirez. Rather extensive medical history to include coronary coronary artery disease, left- sided weakness from prior stroke, diabetes, blind in the right eye, hypertension, hyperlipidemia, hypothyroid, chronic pain, osteoarthritis, peripheral neuropathy, esophageal strictures , urinary incontinence. At baseline uses a walker. Patient was here in January of this year. had episode of decreased responsiveness. Found to have some bradycardia. Loop recorder was placed. Patient was seen by neurology on that admission. Patient's MRI of the brain was unremarkable. EEG did not show any seizure activity.patient had further episodes of decreased responsiveness. On this occasion patient's blood pressure was a bit low this morning. At her doctor's appointment she had actually blood pressure was a bit high. She was at lunch with her daughter and had an episode of difficulty speaking right side of the face and droopy and also for the week to use the right side of the body. patient slumped and became unresponsive. Within 5 minutes she was a bit confused and aphasic. And re gained her speech. No focal focal weakness. Today patient's with her daughter and her . admitted with a diagnosis of TIA. Patient will need surgery/stent to ICA as discussed with neurology. Today-no further symptoms today. Sitting comfortably. Looking forward to go home. I spoke to Dr. Ivon Sanders from vascular surgery. She will evaluate the patient for carotid surgery/stent. She'll see in the office next week. Care was discussed with the patient also. Questions answered.patient's Lopressor dose was increased to 50 mg twice a day. Discussion and discharge planning more than 35 minutes consultation: Dr. Sorto from vascular surgery Dr. Chavez from surgery Physical examination: VITAL SIGNS: 98, 65, 20, 166/76, 99% room air GENERAL: sitting up in a chair, comfortable EYES: Blind in the right eye HEENT: External appearance of nose and ears normal, oral cavity grossly normal. NECK: JVD not raised; masses not palpable. HEART: First and second heart sounds are normal; no edema. LUNGS: Respiratory rate normal; clear to auscultation. ABDOMEN: Soft, nontender, liver spleen not palpable, no masses palpable. PSYCH: Alert and oriented x3; mood and affect normal. MUSCULOSKELETAL: evidence of OA in the joints NEUROLOGICAL: Chronic weakness on the left side. Blind in the right eye... INVESTIGATIONS, reviewed in the clinical context white count 6 hemoglobin 11 platelets 137 progression 5.1 bun [address] scan of brain-nonspecific chronic changes CT angiogram of the brain-75-80% stenosis involving the proximal right ICA, significant stenosis origin of the left CCA. Assessment: -TIA, felt to be contributing from internal carotid artery stenosis. Will need/stent/surgery -chronic right shoulder dysfunction -Coronary artery disease -Diabetes mellitus type 2 on oral hypoglycemic -Blind in the right eye -Essential hypertension, accelerated -Hyperlipidemia -Hypothyroidism -Primary osteoarthritis -Diabetic peripheral neuropathy -Chronic urinary incontinence -Chronic gait dysfunction uses a walker disposition: Home Patient Condition at Discharge: Stable Plan - Discharge Summary Discharge Rx Participant: No New Discharge Prescriptions: New Atorvastatin [Lipitor] 20 mg PO HS #30 tab Metoprolol Tartrate [Lopressor] 50 mg PO BID #60 tab Lisinopril-Hctz 20-12.5 mg [Zestoretic 20-12.5] 1 each PO BID #60 tab Continue Levothyroxine Sodium [Synthroid] 50 mcg PO DAILY glyBURIDE [Diabeta] 5 mg PO BID-W/MEALS Clopidogrel [Plavix] 75 mg PO DAILY Famotidine [Pepcid] 20 mg PO DAILY Discontinued Benazepril HCl 20 mg PO BID metFORMIN HCL [Glucophage] 500 mg PO BID Discharge Medication List Levothyroxine Sodium [Synthroid] 50 mcg PO DAILY 01/07/17 [History] Clopidogrel [Plavix] 75 mg PO DAILY 05/24/19 [History] glyBURIDE [Diabeta] 5 mg PO BID-W/MEALS 05/24/19 [History] Famotidine [Pepcid] 20 mg PO DAILY 06/19/19 [History] Atorvastatin [Lipitor] 20 mg PO HS #30 tab 06/22/19 [Rx] Lisinopril-Hctz 20-12.5 mg [Zestoretic 20-12.5] 1 each PO BID #60 tab 06/22/19 [Rx] Metoprolol Tartrate [Lopressor] 50 mg PO BID #60 tab 06/22/19 [Rx] Follow up Appointment(s)/Referral(s): Esvin Ramirez DO [Primary Care Provider] - 1-2 days (OFFICES ARE CLOSED AT THIS TIME. PLEASE CALL MONDAY TO MAKE A FOLLOW UP APPOINTMENT.) Sweat Sanders DO [STAFF PHYSICIAN] - 3 Days (PLEASE CALL OFFICE MONDAY TO MAKE AN APPOINTMENT. DR. SANDERS WOULD LIKE TO SEE YOU SOMETIME MONDAY.) Patient Instructions/Handouts: Transient Ischemic Attack (DC), Syncope (DC) Discharge Disposition: HOME SELF-CARE
--- NOTE | 2019-08-01 09:00 | CDI ---
Date: 08.01.19 CDS/Sales Professional Bilingual Name: Kailee Butts Phone: If any questions, call Marge Kathleen Pull Tab Dealer at [phone] Patient Name: Maryann Sawyer Admit Date: 06.19.19 Discharge Date: 06.22.12 ATTENTION: The [facility] Coding Staff appreciate your assistance in clarifying documentation. Please respond to the clarification below the line at the bottom and electronically sign. The [facility] Coding staff will review the response and follow-up if needed. Please note: Queries are made part of the Legal Health Record. If you have any questions, please contact the Pull Tab Dealer. Dear Dr. Nagel Have two questions: 1. On the consult by WALESKA Abreu and Dr. Jeormy Chavez they have dictated DM, uncontrolled/not well controlled. Glucose: 06.21.19 ~ 182 176 205 144 06.22.19 ~ 201 262 A1c: 06.19.19 ~ 8.7 Please specify: Hyperglycemia or Hypoglycemia 2. On your Discharge summary you have dictated TIA, felt to be contributing from Internal carotid artery stenosis Please be specific as to if the carotid stenosis was the cause of the TIA. Yes or No Thank you for your kind consideration. Diabetes mellitus type 2, uncontrolled with hyperglycemia TIA felt to be secondary to possible carotid stenosis MTDD
== END 2019-06-22 13:11 | disposition home or self-care (01) ==
LOC: EC 15:35 → INTOOBSV 20:24 → 3SCARD 20:24
PROVIDERS: ADMIT Hospitalist; ATTEND Hospitalist
DX: G45.9 Transient cerebral ischemic attack, unspecified (principal); I65.23 Occlusion and stenosis of bilateral carotid arteries; M25.811 Other specified joint disorders, right shoulder; I25.10 Atherosclerotic heart disease of native coronary artery without angina pectoris; E11.319 Type 2 diabetes mellitus with unspecified diabetic retinopathy without macular edema; E11.42 Type 2 diabetes mellitus with diabetic polyneuropathy; H54.61 Unqualified visual loss, right eye, normal vision left eye; I10 Essential (primary) hypertension; E78.5 Hyperlipidemia, unspecified; E03.9 Hypothyroidism, unspecified; M19.90 Unspecified osteoarthritis, unspecified site; N39.498 Other specified urinary incontinence; R26.9 Unspecified abnormalities of gait and mobility; K21.9 Gastro-esophageal reflux disease without esophagitis; K44.9 Diaphragmatic hernia without obstruction or gangrene; G89.4 Chronic pain syndrome; M54.5 Low back pain; G56.03 Carpal tunnel syndrome, bilateral upper limbs; I69.354 Hemiplegia and hemiparesis following cerebral infarction affecting left non-dominant side; I67.82 Cerebral ischemia; E66.9 Obesity, unspecified; Z68.28 Body mass index [BMI] 28.0-28.9, adult; Z79.890 Hormone replacement therapy; Z79.02 Long term (current) use of antithrombotics/antiplatelets; Z79.84 Long term (current) use of oral hypoglycemic drugs; Z79.899 Other long term (current) drug therapy; Z88.6 Allergy status to analgesic agent; Z91.013 Allergy to seafood; Z91.041 Radiographic dye allergy status; Z91.048 Other nonmedicinal substance allergy status; Z87.19 Personal history of other diseases of the digestive system; Z86.2 Personal history of diseases of the blood and blood-forming organs and certain disorders involving the immune mechanism; Z87.440 Personal history of urinary (tract) infections; Z87.09 Personal history of other diseases of the respiratory system; Z91.81 History of falling; Z87.828 Personal history of other (healed) physical injury and trauma; Z98.890 Other specified postprocedural states; Z90.49 Acquired absence of other specified parts of digestive tract; Z95.1 Presence of aortocoronary bypass graft; Z90.710 Acquired absence of both cervix and uterus; Z98.42 Cataract extraction status, left eye; Z98.41 Cataract extraction status, right eye; Z87.898 Personal history of other specified conditions; Z91.89 Other specified personal risk factors, not elsewhere classified; Z83.79 Family history of other diseases of the digestive system; Z82.49 Family history of ischemic heart disease and other diseases of the circulatory system; Z81.8 Family history of other mental and behavioral disorders; Z84.1 Family history of disorders of kidney and ureter; Z80.9 Family history of malignant neoplasm, unspecified
CPT/HCPCS: 96374; 96375; 99285; 36415; 93005; 97162; 97166; 92610; 92523; 80061; 80053; 84484; 85025; 85610; 85730; 81003; 83036; 71046; 70496; 70450; 70498; G0378 ×3; J1200; J2930; Q9967

== ENCOUNTER 2019-08-20 14:33 | Inpatient (IN) | payer MEDICARE, OTHER ==
[2019-08-20] MEDS ORDERED: SODIUM CHLORIDE 0.9% 1,000 ML IV ONE (15:56)
[2019-08-20] MEDS ORDERED: hydrALAZINE HCL 20 MG/ML 1 ML VIAL IVP STA (16:21)
[2019-08-20 16:58] LABS: Basophils % (A) 0 %; Calcium 9.3 mg/dL (8.4-10.2); Eosinophils # (A) 0.1 k/uL (0-0.7); Eosinophils % (A) 1 %; HCT 36.8 % (34.0-46.0); HGB 12.2 gm/dL (11.4-16.0); Lymphocytes # (A) 1.1 k/uL (1.0-4.8); Lymphocytes % (A) 12 %; MCH 29.8 pg (25.0-35.0); MCHC 33.2 g/dL (31.0-37.0); MCV 89.8 fL (80.0-100.0); Mean Platelet Volume 8.6; Monocytes # (A) 0.4 k/uL (0-1.0); Monocytes % (A) 5 %; Neutrophils # (A) 7.2 k/uL (1.3-7.7); Neutrophils % (A) 80 %; Platelet Count 228 k/uL (150-450); Potassium 4.4 mmol/L (3.5-5.1); RDW 13.4 % (11.5-15.5); Total Bilirubin 0.6 mg/dL (0.2-1.3); Total Protein 7.2 g/dL (6.3-8.2); WBC 8.9 k/uL (3.8-10.6)
--- NOTE | 2019-08-20 17:08 | XR ---
EXAMINATION TYPE: XR foot limited bilateral DATE OF EXAM: 08/20/2019 COMPARISON: NONE HISTORY: Second digit swelling TECHNIQUE: 2 views each foot FINDINGS: Metatarsals are intact. I see no fracture nor dislocation. There is bilateral plantar calca leticia spur formation. There is mild vascular calcification. There are no erosions. The second digits a re intact. There is no sign of focal bone destruction. IMPRESSION: Degenerative changes. No fracture. No evidence of osteomyelitis.
[2019-08-20] MEDS ORDERED: NALOXONE 0.4 MG/ML 1 ML VIAL IV PRN (18:06)
[2019-08-20] MEDS ORDERED: VANCOMYCIN IV PER PHARMACY 1 EACH MISC MISCELLANE PRN (18:08)
--- NOTE | 2019-08-20 18:10 | ED ---
Extremity Problem HPI - General Chief complaint: Extremity Problem,Nontraumatic Stated complaint: foot pain Time Seen by Provider: 08/20/19 15:35 Source: patient Mode of arrival: wheelchair Limitations: no limitations - History of Present Illness Initial comments: 84-year-old female presenting today for chief complaint of bilateral foot infection. Patient states she was at her podiatry appointment for increasing pain and redness of the feet bilaterally when she was sent for evaluation of possible foot infection. Patient states that she believes that her second toes rub on her shoes. She states they are erythematous bilaterally and there is actually an area of irritation of the bottom aspect of the second digit of the left foot that developed an abscess abscess and broke open. Patient states the redness is spreading proximally and there is some soft tissue swelling of the dorsum of the left foot. Patient denies fever or flulike general malaise. Patient states she does have diabetes that has been somewhat uncontrolled. Patient admits to history of diabetic neuropathy but has noted increasing pain of the feet bilaterally. Patient denies any other complaints, dneies groin or calf pain, chest pain, SOB, history of DVT or active cancer. Patient appears well on arrival. No sginso f acute distress, accompanied by her daughter. - Related Data Home Medications Medication Instructions Recorded Confirmed Levothyroxine Sodium [Synthroid] 50 mcg PO DAILY 01/07/17 06/19/19 Clopidogrel [Plavix] 75 mg PO DAILY 05/24/19 06/19/19 glyBURIDE [Diabeta] 5 mg PO BID-W/MEALS 05/24/19 06/19/19 Famotidine [Pepcid] 20 mg PO DAILY 06/19/19 06/19/19 Previous Rx's Medication Instructions Recorded Atorvastatin [Lipitor] 20 mg PO HS #30 tab 06/22/19 Lisinopril-Hctz 20-12.5 mg 1 each PO BID #60 tab 06/22/19 [Zestoretic 20-12.5] Metoprolol Tartrate [Lopressor] 50 mg PO BID #60 tab 06/22/19 Allergies Allergy/AdvReac Type Severity Reaction Status Date / Time aspirin Allergy Rash/Hives Verified 06/19/19 20:46 fish derived Allergy Rash/Hives Verified 06/19/19 20:46 Iodinated Contrast Media Allergy Rash/Hives Verified 06/19/19 20:46 [Iodinated Contrast Media - IV Dye] Iodine and Iodide Containing Allergy Rash/Hives Verified 06/19/19 20:46 Produc shellfish derived [Shellfish] Allergy Rash/Hives Verified 06/19/19 20:46 Review of Systems ROS Statement: Those systems with pertinent positive or pertinent negative responses have been documented in the HPI. ROS Other: All systems not noted in ROS Statement are negative. Past Medical History Past Medical History: Coronary Artery Disease (CAD), Chest Pain / Angina, CVA/TIA, Diabetes Mellitus, Eye Disorder, GERD/Reflux, Hyperlipidemia, Hy pertension, Osteoarthritis (OA), Syncope, Thyroid Disorder Additional Past Medical History / Comment(s): 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 History of Any Multi-Drug Resistant Organisms: None Reported Past Surgical History: Bladder Surgery, Cholecystectomy, Coronary Bypass/CABG, Heart Catheterization, Hysterectomy Additional Past Surgical History / Comment(s): CABG-2007, Ccath 2007, multiple EGDs/dilations with biopsies, COLONOSCOPY. Cataracts, D&C, bladder suspension. Past Anesthesia/Blood Transfusion Reactions: No Reported Reaction, Motion Sickness, Postoperative Nausea & Vomiting (PONV) Past Psychological History: No Psychological Hx Reported Smoking Status: Never smoker Past Alcohol Use History: None Reported Past Drug Use History: None Reported - Past Family History Father Family Medical History: Liver Disease Additional Family Medical History / Comment(s): Father of cirrhosis. He was a drinker. Mother Family Medical History: Unable to Obtain Additional Family Medical History / Comment(s): Pt states she does not know her mother's medical history. Son(s) Family Medical History: Unable to Obtain, Renal Disease Daughter(s) Family Medical History: Cancer General Exam - General Exam Comments Initial Comments: General: The patient is awake and alert, in no distress Eye: Left pupil round and reactive to light, extra-ocular movements are intact. Rigth eye is opacified, blue. No nystagmus. There is normal conjunctiva bilaterally. No signs of icterus. Cardiovascular: There is a regular rate and rhythm. No murmur, rub or gallop is appreciated. Respiratory: Lungs are clear to auscultation, respirations are non-labored, breath sounds are equal. No wheezes, stridor, rales, or rhonchi. Musculoskeletal: Normal ROM, no tenderness. Strength 5/5. Sensation intact. DP pulses equal bilaterally 2+. Neurological: A&O x 3. CN II-XII intact grossly, There are no obvious motor or sensory deficits. Coordination appears grossly intact. Speech is normal. Skin: Skin is warm and dry and no rashes. Administration noted with bleeding wound on the plantar aspect of the second digit of the left foot. There is confluent erythema spreading proximally from the second digit onto the forefoot as well as edema of the dorsum of the left foot that is pitting +3. Patient has no pitting edema of the right foot however there is redness of the second digit warmth with erythematous confluence history spreading proximally as well. Psychiatric: Cooperative, appropriate mood & affect, normal judgment. Limitations: no limitations Course Vital Signs 08/20/19 14:56 Temperature 98.6 F Pulse Rate 70 Respiratory 19 Rate Blood Pressure 212/80 O2 Sat by Pulse 99 Oximetry Medical Decision Making - Medical Decision Making 84-year-old diabetic with history of peripheral diabetic neuropathy presenting for bilateral foot infection. She is neurovascularly intact with warm feet bilaterally and +2 dorsalis pedis pulses. It appears as though patient may have developed an infection from poorly fitted shoe as ifection pattern is b/l on the second digit, there is open wound on the plantar aspect of the 2nd digit. Patient has a negative plain films for osteomyelitis at this time of the feet bilaterally. Patient hasa leukocytosis however given patient's history and the significance of infection physical examination I feel patient should be admitted for IV antibiotics and cover pseudomonas as well as MRSA. Blood cultures Pending, lactic acid within normal limits. Patient given IV fluids discussed with attending provider Dr Kaur who spoke with Dr. Nagel who is accepting of admission with ID consultation. - Lab Data Result diagrams: 08/20/19 16:22 08/20/19 16:22 Lab Results 08/20/19 08/20/1920 Range/Units 16:22 16:22 16:22 WBC 8.9 (3.8-10.6) k/uL RBC 4.10 (3.80-5.40) m/uL Hgb 12.2 (11.4-16.0) gm/dL Hct 36.8 (34.0-46.0) % MCV 89.8 (80.0-100.0) fL MCH 29.8 (25.0-35.0) pg MCHC 33.2 (31.0-37.0) g/dL RDW 13.4 (11.5-15.5) % Plt Count 228 (150-450) k/uL Neutrophils % 80 % Lymphocytes % 12 % Monocytes % 5 % Eosinophils % 1 % Basophils % 0 % Neutrophils # 7.2 (1.3-7.7) k/uL Lymphocytes # 1.1 (1.0-4.8) k/uL Monocytes # 0.4 (0-1.0) k/uL Eosinophils # 0.1 (0-0.7) k/uL Basophils # 0.0 (0-0.2) k/uL Sodium 139 (137-145) mmol/L Potassium 4.4 (3.5-5.1) mmol/L Chloride 103 (98-107) mmol/L Carbon Dioxide 27 (22-30) mmol/L Anion Gap 9 mmol/L BUN 19 H (7-17) mg/dL Creatinine 0.76 (0.52-1.04) mg/dL Est GFR (CKD-EPI)AfAm 84 (>60 ml/min/1.73 sqM) Est GFR (CKD-EPI)NonAf 73 (>60 ml/min/1.73 sqM) Glucose 218 H (74-99) mg/dL Plasma Lactic Acid Evelio 1.4 (0.7-2.0) mmol/L Calcium 9.3 (8.4-10.2) mg/dL Total Bilirubin 0.6 (0.2-1.3) mg/dL AST 22 (14-36) U/L ALT 15 (4-34) U/L Alkaline Phosphatase 95 (38-126) U/L Total Protein 7.2 (6.3-8.2) g/dL Albumin 4.0 (3.5-5.0) g/dL Disposition Clinical Impression: Cellulitis of both feet, Diabetic infection of left foot Disposition: ADMITTED IP TO THIS HOSP Condition: Stable Is patient prescribed a controlled substance at d/c from ED?: No Time of Disposition: 18:09 Decision to Admit Reason: Admit from EC Decision Date: 08/20/19 Decision Time: 18:09
[2019-08-20] MEDS: PIPERACILLIN-TAZOBACTAM 3.375 GM in SODIUM CHLORIDE 0.9% 100 ML IVPB SCH (18:30)
[2019-08-20] MEDS ORDERED: VANCOMYCIN 1,250 MG in SODIUM CHLORIDE 0.9% 250 ML IVPB ONE (18:30)
[2019-08-20] MEDS: SODIUM CHLORIDE 0.9% 1,000 ML IV SCH (18:32)
[2019-08-21] MEDS: ACETAMINOPHEN TAB 325 MG TAB PO PRN (00:42)
[2019-08-21] MEDS: LISINOPRIL-HCTZ 20-12.5 MG 1 EACH TAB PO SCH ×3 (00:42→20:37)
[2019-08-21] MEDS: METOPROLOL TARTRATE 50 MG TAB PO SCH ×3 (00:43→20:37)
[2019-08-21] MEDS: PIPERACILLIN-TAZOBACTAM 3.375 GM in SODIUM CHLORIDE 0.9% 100 ML IVPB SCH ×2 (03:15→12:02)
[2019-08-21] MEDS: SODIUM CHLORIDE 0.9% 1,000 ML IV SCH ×2 (03:16→16:26)
[2019-08-21] MEDS: LEVOTHYROXINE 50 MCG TAB PO SCH (05:51)
[2019-08-21 07:06] LABS: Glucose,Whole Blood 164 mg/dL (75-99)
[2019-08-21] MEDS: FAMOTIDINE 20 MG TAB PO SCH (07:45)
[2019-08-21] MEDS: INSULIN ASPART (NovoLOG) 100 UNIT/ML VIAL SQ SCH ×4 (07:45→20:36)
[2019-08-21] MEDS: CLOPIDOGREL 75 MG TAB PO SCH (07:45)
[2019-08-21] MEDS ORDERED: VANCOMYCIN 1,000 MG in SODIUM CHLORIDE 0.9% 250 ML IVPB SCH (09:00)
[2019-08-21 11:43] LABS: Glucose,Whole Blood 190 mg/dL (75-99)
[2019-08-21 13:43] VITALS: BMI 27.3
[2019-08-21] MEDS: amLODIPine 5 MG TAB PO SCH (16:32)
[2019-08-21 16:42] LABS: Glucose,Whole Blood 196 mg/dL (75-99)
[2019-08-21] MEDS: AMPICILLIN-SULBACTAM 3 GM in SODIUM CHLORIDE 0.9% 100 ML IVPB SCH (17:23)
[2019-08-21 20:14] LABS: Glucose,Whole Blood 170 mg/dL (75-99)
[2019-08-21] MEDS: ATORVASTATIN 20 MG TAB PO SCH (20:37)
--- NOTE | 2019-08-21 21:37 | P.HPIM ---
History of Present Illness H&P Date: 08/21/19 Chief Complaint: Feet infections History of presenting complaint: This is a pleasant 84-year-old patient who follows with Dr. Ramirez. Rather extensive medical history to include coronary coronary artery disease, left- sided weakness from prior stroke, diabetes, blind in the right eye, hypertension, hyperlipidemia, hypothyroid, chronic pain, osteoarthritis, peripheral neuropathy, esophageal strictures , urinary incontinence. Recently the hospital with TIA. Found to have 75-80% stenosis involving the proximal right ICA, significant stenosis origin the left CCA.-Patient will was seen by Dr. Sorto from vascular pending surgery. Patient now presents with infection of the left foot of the toes especially the second toe. Patient has been following with sales relationship manager. Because of neuropathy is decreased sensation. Found to have infection questionable abscess and some bleeding from the same. And the adjoining area of the foot. She is also had wound of the right foot which actually is healing. Brought in for the same. Daughter the bedside.. Review of systems: GEN.: Tired EYES: Blind in the right eye HEENT: Decreased hearing NECK: None RESPIRATORY: None CARDIOVASCULAR: None GASTROINTESTINAL: None GENITOURINARY: None MUSCULOSKELETAL: Joint pains LYMPHATICS: None HEMATOLOGICAL: None PSYCHIATRY: None NEUROLOGICAL: Peripheral neuropathy, blind in the right eye Social history: Does not smoke or drink alcohol. . Does use a walker Physical examination: VITAL SIGNS: 97.5, 56, 18, 166/78, 98% on room air GENERAL: sitting up in a chair, comfortable EYES: Blind in the right eye HEENT: External appearance of nose and ears normal, oral cavity grossly normal. NECK: JVD not raised; masses not palpable. HEART: First and second heart sounds are normal; no edema. LUNGS: Respiratory rate normal; clear to auscultation. ABDOMEN: Soft, nontender, liver spleen not palpable, no masses palpable. PSYCH: Alert and oriented x3; mood and affect normal. MUSCULOSKELETAL: evidence of OA in the joints NEUROLOGICAL: Chronic weakness on the left side. Blind in the right eye... EXTREMITY: Wound on the left foot the second toe and surrounding area INVESTIGATIONS, reviewed in the clinical context White count 8.9 hemoglobin 12.2 platelets 248 potassium 4.4 creatinine 0.76 Foot x-ray shows evidence of OA. No obvious osteomyelitis suggested Previous testing CT angiogram of the brain-75-80% stenosis involving the proximal right ICA, significant stenosis origin of the left CCA. Assessment: -Left foot to infection/cellulitis/acute in a neuropathic foot secondary to diabetes wound -Recent TIA, felt to be contributing from internal carotid artery stenosis. Will need/stent/surgery-Dr. Sorto -chronic right shoulder dysfunction -Coronary artery disease -Diabetes mellitus type 2 on oral hypoglycemic -Blind in the right eye -Essential hypertension, accelerated -Hyperlipidemia -Hypothyroidism -Primary osteoarthritis -Diabetic peripheral neuropathy -Chronic urinary incontinence -Chronic gait dysfunction uses a walker Plan: Home medications resumed. IV Unasyn. Infectious disease was consulted. Care w as discussed with the patient daughter the bedside. Questions were answered. Past Medical History Past Medical History: Coronary Artery Disease (CAD), Chest Pain / Angina, CVA/TIA, Diabetes Mellitus, Eye Disorder, GERD/Reflux, Hyperlipidemia, Hypertension, Osteoarthritis (OA), Syncope, Thyroid Disorder Additional Past Medical History / Comment(s): 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 History of Any Multi-Drug Resistant Organisms: None Reported Past Surgical History: Bladder Surgery, Cholecystectomy, Coronary Bypass/CABG, Heart Catheterization, Hysterectomy Additional Past Surgical History / Comment(s): CABG-2007, Ccath 2007, multiple EGDs/dilations with biopsies, COLONOSCOPY. Cataracts, D&C, bladder suspension. Past Anesthesia/Blood Transfusion Reactions: No Reported Reaction, Motion Sickness, Postoperative Nausea & Vomiting (PONV) Past Psychological History: No Psychological Hx Reported Additional Psychological History / Comment(s): Pt resides with her spouse who has dementia at home. She states she needs to place spouse somewhere-he is too much for her to care for anymore. She uses a walker to ambulate. She has a cane and wheelchair, shower chair, glucometer and blood pressure machine. She is thinking about getting MOW. Her spouse let the cleaning lady go-she hopes to re-establish. Smoking Status: Never smoker Past Alcohol Use History: None Reported Past Drug Use History: None Reported - Past Family History Father Family Medical History: Liver Disease Additional Family Medical History / Comment(s): Father of cirrhosis. He was a drinker. Mother Family Medical History: Unable to Obtain Additional Family Medical History / Comment(s): Pt states she does not know her mother's medical history. Son(s) Family Medical History: Unable to Obtain, Renal Disease Daughter(s) Family Medical History: Cancer Medications and Allergies Home Medications Medication Instructions Recorded Confirmed Type Levothyroxine Sodium [Synthroid] 50 mcg PO DAILY 01/07/17 08/20/19 History Clopidogrel [Plavix] 75 mg PO DAILY 05/24/19 08/20/19 History glyBURIDE [Diabeta] 5 mg PO AC-BID 05/24/19 08/20/19 History Famotidine [Pepcid] 20 mg PO DAILY 06/19/19 08/20/19 History Atorvastatin [Lipitor] 20 mg PO HS #30 tab 06/22/19 08/20/19 Rx Metoprolol Tartrate [Lopressor] 50 mg PO BID #60 tab 06/22/19 08/20/19 Rx Aspirin 81 mg PO DAILY 08/20/19 08/20/19 History Lisinopril-Hctz 20-12.5 mg 1 tab PO BID 08/20/19 08/20/19 History [Zestoretic 20-12.5] metFORMIN HCL [Glucophage] 500 mg PO BID 08/20/19 08/20/19 History Allergies Allergy/AdvReac Type Severity Reaction Status Date / Time aspirin Allergy Rash/Hives Verified 08/20/19 19:40 fish derived Allergy Rash/Hives Verified 08/20/19 19:40 Iodinated Contrast Media Allergy Rash/Hives Verified 08/20/19 19:40 [Iodinated Contrast Media - IV Dye] Iodine and Iodide Containing Allergy Rash/Hives Verified 08/20/19 19:40 Produc shellfish derived [Shellfish] Allergy Rash/Hives Verified 08/20/19 19:40 Physical Exam Vitals: Vital Signs Temp Pulse Pulse Resp BP BP Pulse Ox 08/21/19 07:00 97.9 F 60 16 164/69 98 08/21/19 04:41 72 166/72 08/21/19 03:36 17 08/21/19 00:54 98.6 F 71 17 200/72 98 08/21/19 00:00 18 08/20/19 23:20 73 18 157/63 97 08/20/19 19:34 73 18 158/64 99 08/20/19 14:56 98.6 F 70 19 212/80 99 Intake and Output 08/20/19 08/21/19 08/21/19 22:59 06:59 14:59 Intake Total 700 Balance 700 Intake: Intake, IV Titration 700 Amount Sodium Chloride 0.9% 1, 700 000 ml @ 100 mls/hr IV . Q10H [facility] Rx#:[id number] Other: Voiding Method Toilet Toilet # Voids 1 Weight 63.503 kg Results CBC & Chem 7: 08/20/19 16:22 08/20/19 16:22 Labs: Abnormal Lab Results - Last 24 Hours (Table) 08/20/19 08/21/19 Range/Units 16:22 07:02 BUN 19 H (7-17) mg/dL Glucose 218 H (74-99) mg/dL POC Glucose (mg/dL) 164 H (75-99) mg/dL Thrombosis Risk Factor Assmnt - Choose All That Apply Each Risk Factor Represents 3 Points: Age 75 years or older Thrombosis Risk Factor Assessment Total Risk Factor Score: 3 Thrombosis Risk Factor Assessment Level: Moderate Risk
[2019-08-21] MEDS: ENOXAPARIN 40 MG/0.4 ML SYRINGE SQ SCH (22:03)
--- NOTE | 2019-08-21 23:51 | P.CONS ---
History of Present Illness - Reason for Consult Consult date: 08/21/19 Bilateral second toe cellulitis Requesting physician: Elan Nagel - Chief Complaint Bilateral second toe pain swelling and redness x days - History of Present Illness Patient is 84-year-old female who has been sent to the ER from her director of front office for evaluation of bilateral second toe wound and cellulitis, patient apparently second toe on both side has been rubbing against the shoe with resulting swelling and redness and apparently the patient did develop a wound on the plantar aspect of the left second toe with some purulent drainage and secondary noticed to have a swelling and redness mostly to second toe on both side left more than the right patient also complaining of generalized malaise and some chills but denies high-grade fever the patient was complaining of pain especially to the left foot second toe however she was unable to quantify it for the and mention the pain has improved by now with the symptoms the patient was evaluated by the ER physician, on arrival to the ER the patient has been afebrile patient white count has been normal patient did have x-rays of the foot which did not show any bony changes patient was started on vancomycin and Zosyn and admitted to the hospital infectious disease was consulted for further recommendation regarding antibiotic therapy Review of Systems Positive point has been mentioned in the HPI rest of the systems are negative Past Medical History Past Medical History: Coronary Artery Disease (CAD), Chest Pain / Angina, CVA/TIA, Diabetes Mellitus, Eye Disorder, GERD/Reflux, Hyperlipidemia, Hypertension, Osteoarthritis (OA), Syncope, Thyroid Disorder Additional Past Medical History / Comment(s): 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 History of Any Multi-Drug Resistant Organisms: None Reported Past Surgical History: Bladder Surgery, Cholecystectomy, Coronary Bypass/CABG, Heart Catheterization, Hysterectomy Additional Past Surgical History / Comment(s): CABG-2007, Ccath 2007, multiple EGDs/dilations with biopsies, COLONOSCOPY. Cataracts, D&C, bladder suspension. Past Anesthesia/Blood Transfusion Reactions: No Reported Reaction, Motion Sickness, Postoperative Nausea & Vomiting (PONV) Past Psychological History: No Psychological Hx Reported Additional Psychological History / Comment(s): Pt resides with her spouse who has dementia at home. She states she needs to place spouse somewhere-he is too much for her to care for anymore. She uses a walker to ambulate. She has a cane and wheelchair, shower chair, glucometer and blood pressure machine. She is thinking about getting MOW. Her spouse let the cleaning lady go-she hopes to re-establish. Smoking Status: Never smoker Past Alcohol Use History: None Reported Past Drug Use History: None Reported - Past Family History Father Family Medical History: Liver Disease Additional Family Medical History / Comment(s): Father of cirrhosis. He was a drinker. Mother Family Medical History: Unable to Obtain Additional Family Medical History / Comment(s): Pt states she does not know her mother's medical history. Son(s) Family Medical History: Unable to Obtain, Renal Disease Daughter(s) Family Medical History: Cancer Medications and Allergies Home Medications Medication Instructions Recorded Confirmed Type Levothyroxine Sodium [Synthroid] 50 mcg PO DAILY 01/07/17 08/20/19 History Clopidogrel [Plavix] 75 mg PO DAILY 05/24/19 08/20/19 History glyBURIDE [Diabeta] 5 mg PO AC-BID 05/24/19 08/20/19 History Famotidine [Pepcid] 20 mg PO DAILY 06/19/19 08/20/19 History Atorvastatin [Lipitor] 20 mg PO HS #30 tab 06/22/19 08/20/19 Rx Metoprolol Tartrate [Lopressor] 50 mg PO BID #60 tab 06/22/19 08/20/19 Rx Aspirin 81 mg PO DAILY 08/20/19 08/20/19 History Lisinopril-Hctz 20-12.5 mg 1 tab PO BID 08/20/19 08/20/19 History [Zestoretic 20-12.5] metFORMIN HCL [Glucophage] 500 mg PO BID 08/20/19 08/20/19 History Allergies Allergy/AdvReac Type Severity Reaction Status Date / Time aspirin Allergy Rash/Hives Verified 08/20/19 19:40 fish derived Allergy Rash/Hives Verified 08/20/19 19:40 Iodinated Contrast Media Allergy Rash/Hives Verified 08/20/19 19:40 [Iodinated Contrast Media - IV Dye] Iodine and Iodide Containing Allergy Rash/Hives Verified 08/20/19 19:40 Produc shellfish derived [Shellfish] Allergy Rash/Hives Verified 08/20/19 19:40 Physical Exam Vitals: Vital Signs Temp Pulse Pulse Resp BP BP Pulse Ox 08/21/19 15:00 97.5 F L 56 L 16 217/77 99 08/21/19 07:00 97.9 F 60 16 164/69 98 08/21/19 04:41 72 166/72 08/21/19 03:36 17 08/21/19 00:54 98.6 F 71 17 200/72 98 08/21/19 00:00 18 08/20/19 23:20 73 18 157/63 97 08/20/19 19:34 73 18 158/64 99 Intake and Output 08/21/19 08/21/19 08/21/19 06:59 14:59 22:59 Intake Total 700 Balance 700 Intake: Intake, IV Titration 700 Amount Sodium Chloride 0.9% 1, 700 000 ml @ 100 mls/hr IV . Q10H [facility] Rx#:[id number] Other: Voiding Method Toilet Toilet # Voids 1 3 2 Weight 63.503 kg GENERAL DESCRIPTION: An elderly female up in the chair, no distress. No tachypnea or accessory muscle of respiration use. HEENT: Shows Pallor , no scleral icterus. Oral mucous membrane is dry. No pharyngeal erythema or thrush NECK: Trachea central, no thyromegaly. LUNGS: Unlabored breathing. Clear to auscultation anteriorly. No wheeze or crackle. HEART: S1, S2, regular rate and rhythm. No loud murmur ABDOMEN: Soft, no tenderness , guarding or rigidity, no organomegaly EXTREMITIES: Bilateral second toe with superficial wound on the dorsal aspect with diffuse swelling redness left second toe did have a wound on the plantar aspect with some drainage which was cultured SKIN: No rash, no masses palpable. NEUROLOGICAL: The patient is awake, alert, oriented x3, mood and affect normal. Results CBC & Chem 7: 08/20/19 16:22 02/11/20 16:22 Labs: Abnormal Lab Results - Last 24 Hours (Table) 08/20/19 08/21/19 08/21/19 Range/Units 16:22 07:02 11:41 BUN 19 H (7-17) mg/dL Glucose 218 H (74-99) mg/dL POC Glucose (mg/dL) 164 H 190 H (75-99) mg/dL Assessment and Plan Assessment: 1- patient presented to hospital with bilateral second toe pain swelling and redness in this patient who did have a wound on the plantar aspect of the second toe possibly traumatic now with evidence of secondary cellulitis likely from gram-positive skin tierra in view of underlying diabetes mellitus and polymicrobial infection not entirely excluded, in this patient has not been on a ny antibiotic in the recent past clinic suspicious low for resistant gram- positive or gram-negative pathogen (1) Diabetic foot ulcer Current Visit: Yes Status: Acute Code(s): E11.621 - TYPE 2 DIABETES MELLITUS WITH FOOT ULCER; L97.509 - NON-PRESSURE CHRONIC ULCER OTH PRT UNSP FOOT W UNSP SEVERITY SNOMED Code(s): 478939028 (2) Cellulitis of both feet Current Visit: Yes Status: Acute Code(s): L03.115 - CELLULITIS OF RIGHT LOWER LIMB; L03.116 - CELLULITIS OF LEFT LOWER LIMB SNOMED Code(s): 672205471 Plan: 1-local wound culture left second toe to guide antibiotic therapy 2-discontinue the vancomycin and Zosyn 3-start the patient Unasyn 3 g every 6 hours 4-local wound care to the left second toe wound with dry Aquacel silver dressing to change every 48 hours We will follow on clinical condition and cultures to further adjust medication if needed Thank you for this consultation will follow this patient with you Time with Patient: Greater than 30
[2019-08-22] MEDS: SODIUM CHLORIDE 0.9% 1,000 ML IV SCH ×3 (00:07→20:55)
[2019-08-22] MEDS: AMPICILLIN-SULBACTAM 3 GM in SODIUM CHLORIDE 0.9% 100 ML IVPB SCH ×4 (00:07→17:11)
[2019-08-22] MEDS: ACETAMINOPHEN TAB 325 MG TAB PO PRN (04:05)
[2019-08-22] MEDS: LEVOTHYROXINE 50 MCG TAB PO SCH (05:27)
[2019-08-22 06:49] LABS: Glucose,Whole Blood 226 mg/dL (75-99)
[2019-08-22] MEDS: glipiZIDE 5 MG TAB PO SCH ×2 (07:01→17:11)
[2019-08-22] MEDS: INSULIN ASPART (NovoLOG) 100 UNIT/ML VIAL SQ SCH ×4 (07:02→20:50)
[2019-08-22] MEDS: FAMOTIDINE 20 MG TAB PO SCH (07:46)
[2019-08-22] MEDS: ENOXAPARIN 40 MG/0.4 ML SYRINGE SQ SCH (07:46)
[2019-08-22] MEDS: metFORMIN 500 MG TAB PO SCH ×3 (07:46→20:50)
[2019-08-22] MEDS: CLOPIDOGREL 75 MG TAB PO SCH (07:46)
[2019-08-22] MEDS: METOPROLOL TARTRATE 50 MG TAB PO SCH ×2 (07:46→20:50)
[2019-08-22] MEDS: amLODIPine 5 MG TAB PO SCH (07:47)
[2019-08-22 08:38] LABS: HCT 33.3 % (34.0-46.0); HGB 10.9 gm/dL (11.4-16.0); MCH 29.4 pg (25.0-35.0); MCHC 32.8 g/dL (31.0-37.0); MCV 89.7 fL (80.0-100.0); Mean Platelet Volume 8.8; Platelet Count 237 k/uL (150-450); RBC 3.71 m/uL (3.80-5.40); RDW 13.4 % (11.5-15.5); WBC 6.6 k/uL (3.8-10.6)
[2019-08-22 08:44] LABS: Calcium 8.7 mg/dL (8.4-10.2); Potassium 4.2 mmol/L (3.5-5.1)
[2019-08-22] MEDS: LISINOPRIL-HCTZ 20-12.5 MG 1 EACH TAB PO SCH ×2 (09:58→20:54)
[2019-08-22 11:41] LABS: Glucose,Whole Blood 147 mg/dL (75-99)
[2019-08-22 16:34] LABS: Hemoglobin A1C 9.1 % (4.0-6.0)
[2019-08-22 16:51] LABS: Glucose,Whole Blood 251 mg/dL (75-99)
--- NOTE | 2019-08-22 18:24 | PN ---
PROGRESS NOTE DATE OF SERVICE: 08/22/2019. REASON FOR FOLLOWUP: Bilateral second toe wounds and cellulitis. INTERVAL HISTORY: The patient is currently afebrile. The patient has been breathing comfortably. Pain to the bilateral second toe wounds is currently controlled. Denies having any chest pain, shortness of breath or cough. No nausea, no vomiting, no abdominal pain or any diarrhea. PHYSICAL EXAMINATION: Blood pressure 200/73 with pulse of 56, temperature 97.6. She is 99% on room air. General description is an elderly female up in the chair in no distress. RESPIRATORY SYSTEM: Unlabored breathing. Clear to auscultation anteriorly. HEART: S1, S2. Regular rate and rhythm. ABDOMEN: Soft. No tenderness. Wounds are dressed up. No obvious drainage on the dressing. LABS: Wound culture now showing Gram-negative. Hemoglobin is 10.9, white count 6.6, BUN of 13, creatinine 0.76. DIAGNOSTIC IMPRESSION AND PLAN: Patient with bilateral second toe wounds with secondary cellulitis, left greater than the right. Wound culture now showing a Gram negative. Patient is covered with Unasyn. Antibiotic will be adjusted further based on the culture report. Continue with supportive care. MMODL / IJN: [id number] /
[2019-08-22 20:07] LABS: Glucose,Whole Blood 218 mg/dL (75-99)
[2019-08-22] MEDS: ATORVASTATIN 20 MG TAB PO SCH (20:50)
[2019-08-22] MEDS ORDERED: hydrALAZINE HCL 20 MG/ML 1 ML VIAL IVP PRN (21:32)
--- NOTE | 2019-08-22 23:24 | PN ---
PROGRESS NOTE DATE OF SERVICE: 08/22/2019 This 84-year-old woman who was admitted with left foot infection cellulitis with neuropathy, also had a TIA. The patient also being evaluated by Dr. Rivero from Infectious Disease point of view. PT/OT evaluating the patient for possible ECF rehab at this time. The wound culture showing gram-negative bacilli. Final reports are pending at this time. The patient had bilateral 2nd toe wounds, left greater than the right, and the patient being closely monitored. PAST MEDICAL HISTORY: Reviewed. REVIEW OF SYSTEMS: CARDIOVASCULAR: No angina or palpitations. RESPIRATION: As mentioned earlier. GI as mentioned earlier. Nervous system: As mentioned earlier. CURRENT MEDICATIONS: Reviewed and include: 1. Tylenol 650 q.6h p.r.n. 2. Norvasc 5 mg daily. 3. Unasyn 3 grams IV q.6h. 4. Lipitor 20 mg. 5. Plavix 75 mg. 6. Lovenox. 7. Pepcid. 8. Glucotrol. 9. Zestoretic. 10.NovoLog. 11.Synthroid. 12.Glucophage. 13.Lopressor. 14.Narcan. 15.Doses are reviewed. PHYSICAL EXAM: Patient is alert, oriented x3. Pulse is 64. Blood pressure 194/70, respirations 18, temperature 98.4, pulse ox 98% on room air. HEENT: Conjunctivae normal. Oral mucosa moist. NECK: No JVD. No carotid bruit. No lymph node enlargement. CARDIOVASCULAR: S1, S2 muffled. RESPIRATION: Breath sounds diminished in the bases. A few scattered rhonchi. ABDOMEN: Soft, nontender. LEGS: Bilateral foot ulcers, left more than the right. NERVOUS SYSTEM: Diffusely weak. LABS: At this time shows WBC 6.2, hemoglobin 10.2. Glucose noted. ASSESSMENT: 1. Acute bilateral foot wound infection with failure of outpatient treatment, left more than the right. 2. Transient ischemic attack with gait dysfunction. 3. Accelerated hypertension hypertensive urgency. 4. Internal carotid artery stenosis, being followed by Dr. Sorto for possible surgery. 5. Chronic right shoulder dysfunction. 6. History of coronary artery disease. 7. Diabetes mellitus type 2 on oral hypoglycemic agents. 8. Right eye blindness. 9. Hypertension, essential. 10.Hyperlipidemia. 11.Degenerative joint disease. 12.Diabetic peripheral neuropathy. 13.Chronic urinary incontinence. 14.Chronic incontinence. 15.NO CODE, NO CPR, NO VENT. RECOMMENDATIONS AND DISCUSSION: In this 84-year-old woman who presented with multiple complex medical issues, at this time, I recommend to continue current medications, management, symptomatic treatment and monitor blood sugars closely. PT/OT evaluation. Resume the home medications. DVT prophylaxis. I would also recommend add Norvasc to the current regimen and increase the Norvasc and continue to monitor. Stop the IV fluids. Otherwise, monitor blood pressure closely. Prognosis guarded. Discussed with family and PT/OT evaluation, possible ECF rehab. Further recommendations to follow. MMODL / IJN: [id number] /
[2019-08-22] MEDS: hydrALAZINE HCL 50 MG TAB PO SCH (23:48)
[2019-08-22] MEDS: amLODIPine 10 MG TAB PO SCH (23:48)
[2019-08-23] MEDS: AMPICILLIN-SULBACTAM 3 GM in SODIUM CHLORIDE 0.9% 100 ML IVPB SCH ×5 (00:01→23:33)
[2019-08-23] MEDS: ACETAMINOPHEN TAB 325 MG TAB PO PRN ×2 (03:21→10:19)
[2019-08-23] MEDS: LEVOTHYROXINE 50 MCG TAB PO SCH (05:35)
[2019-08-23 06:54] LABS: Glucose,Whole Blood 181 mg/dL (75-99)
[2019-08-23] MEDS: LISINOPRIL-HCTZ 20-12.5 MG 1 EACH TAB PO SCH ×2 (07:11→21:14)
[2019-08-23] MEDS: METOPROLOL TARTRATE 50 MG TAB PO SCH ×2 (07:11→21:14)
[2019-08-23] MEDS: hydrALAZINE HCL 50 MG TAB PO SCH ×3 (07:11→21:14)
[2019-08-23] MEDS: INSULIN ASPART (NovoLOG) 100 UNIT/ML VIAL SQ SCH ×4 (07:11→21:14)
[2019-08-23] MEDS: metFORMIN 500 MG TAB PO SCH ×2 (07:11→21:14)
[2019-08-23] MEDS: glipiZIDE 5 MG TAB PO SCH ×2 (07:12→17:29)
[2019-08-23] MEDS: ENOXAPARIN 40 MG/0.4 ML SYRINGE SQ SCH (07:12)
[2019-08-23] MEDS: CLOPIDOGREL 75 MG TAB PO SCH (07:12)
[2019-08-23] MEDS: FAMOTIDINE 20 MG TAB PO SCH (07:12)
[2019-08-23] MEDS: amLODIPine 10 MG TAB PO SCH (07:12)
[2019-08-23] MEDS: ASPIRIN 81 MG PO SCH (07:12)
[2019-08-23 08:24] LABS: Basophils % (A) 0 %; Eosinophils # (A) 0.1 k/uL (0-0.7); Eosinophils % (A) 2 %; HCT 31.6 % (34.0-46.0); HGB 10.6 gm/dL (11.4-16.0); Lymphocytes # (A) 1.1 k/uL (1.0-4.8); Lymphocytes % (A) 15 %; MCH 29.9 pg (25.0-35.0); MCHC 33.7 g/dL (31.0-37.0); Mean Platelet Volume 8.6; Monocytes # (A) 0.4 k/uL (0-1.0); Monocytes % (A) 5 %; Neutrophils # (A) 5.6 k/uL (1.3-7.7); Neutrophils % (A) 76 %; Platelet Count 226 k/uL (150-450); RBC 3.56 m/uL (3.80-5.40); RDW 13.4 % (11.5-15.5); WBC 7.3 k/uL (3.8-10.6)
[2019-08-23 08:31] LABS: Potassium 3.7 mmol/L (3.5-5.1)
[2019-08-23 11:53] LABS: Glucose,Whole Blood 182 mg/dL (75-99)
--- NOTE | 2019-08-23 16:12 | P.PN ---
Subjective Progress Note Date: 08/23/19 Principal diagnosis: This is an 84-year-old female who was recently admitted with left foot infection with cellulitis and neuropathy also was found to have a TIA and is being closely monitored. Infectious disease is following. PT/OT are also following as patient is being evaluated for possible ECF rehab. Patient is maintained on IV antibiotics in the form of Unasyn and will continue at this time. Wound culture continues to show gram-negative bacilli and awaiting for finalization. Case management and social work are following for possible placement at [facility] [place]. No reports of chest pain or palpitations. Patient is afebrile. No reports of nausea or vomiting and patient is tolerating diet. Objective - Vital Signs Vital signs: Vital Signs Temp 98 F 08/23/19 14:17 Pulse 56 L 08/23/19 14:17 Resp 12 08/23/19 14:17 BP 149/65 08/23/19 14:17 Pulse Ox 99 08/23/19 14:17 Intake & Output 08/22/19 08/23/19 08/23/19 18:59 06:59 18:59 Intake Total 200 Balance 200 Intake: Intake, IV Titration 200 Amount Ampicillin-Sulbactam 3 gm 200 In Sodium Chloride 0.9% 100 ml @ 200 mls/hr IVPB Q6HR [facility] Rx#:[id number] Other: Voiding Method Toilet Toilet Bedside Commode Bedside Commode # Voids 2 2 5 - Exam Gen: This is a 84-year-old female sitting up in bed awake, alert and oriented 3, well-nourished, well-developed. Temp is 98F, pulse is 56, respirations are 12, blood pressure 149/65, oxygen saturation is 99% on room air. HEENT: Head is atraumatic, normocephalic. Pupils equal, round. Sclerae is anicteric. NECK: Supple. No JVD. No lymphadenopathy. No thyromegaly. LUNGS: Breath sounds diminished at the bases with some mild rhonchi noted. No intercostal retractions. HEART: S1, S2 are muffled ABDOMEN: Soft. Bowel sounds are present. No masses. No tenderness. EXTREMITIES: No pedal edema. No calf tenderness. Bilateral foot ulcers noted with the left worse than the right dressings have been changed and are dry and intact NEUROLOGICAL: Patient is awake, alert and oriented x3. Diffuse weakness - Labs CBC & Chem 7: 08/23/19 07:14 08/23/19 07:14 Labs: Abnormal Lab Results - Last 24 Hours (Table) 08/22/19 08/22/19 08/22/19 Range/Units 07:31 16:49 20:06 RBC (3.80-5.40) m/uL Hgb (11.4-16.0) gm/dL Hct (34.0-46.0) % Glucose (74-99) mg/dL POC Glucose (mg/dL) 251 H 218 H (75-99) mg/dL Hemoglobin A1c 9.1 H (4.0-6.0) % 08/23/19 08/23/19 08/23/19 Range/Units 06:51 07:14 07:14 RBC 3.56 L (3.80-5.40) m/uL Hgb 10.6 L (11.4-16.0) gm/dL Hct 31.6 L (34.0-46.0) % Glucose 176 H (74-99) mg/dL POC Glucose (mg/dL) 181 H (75-99) mg/dL Hemoglobin A1c (4.0-6.0) % 08/23/19 Range/Units 11:51 RBC (3.80-5.40) m/uL Hgb (11.4-16.0) gm/dL Hct (34.0-46.0) % Glucose (74-99) mg/dL POC Glucose (mg/dL) 182 H (75-99) mg/dL Hemoglobin A1c (4.0-6.0) % Microbiology - Last 24 Hours (Table) 08/21/19 15:30 Gram Stain - Preliminary Foot - Left Wound Culture - Preliminary Escherichia coli 08/20/19 16:22 Blood Culture - Preliminary Blood No Growth after 48 hours Assessment and Plan Assessment: Acute bilateral foot wound infection with failure of outpatient treatment, left more than right transient ischemic attack with gait dysfunction Accelerated hypertension hypertensive urgency Internal carotid artery stenosis, being followed by Dr. Cervantes for possible surgery Chronic right shoulder dysfunction History of coronary artery disease Diabetes mellitus type 2 on oral hypoglycemic agents Right eye blindness hypertension, a central Hyperlipidemia degenerative joint disease Diabetic peripheral neuropathy Chronic urinary incontinence No code, no CPR, no vent Recommendations and discussion: Recommend to continue current medications, management, and symptomatic treatmen t. Patient is maintained on IV Unasyn and will continue at this time. Infectious disease is following. Wound cultures are finalized showing E. coli and appreciate infectious disease recommendations. Will continue to monitor vital signs and labs closely as Norvasc has recently been increased. PT/OT following along with case management and social work for possible ECF rehab upon discharge. Due to multiple complex medical issues prognosis is guarded. Further recommendations to follow. Possible discharge in 24-48 hours.
[2019-08-23 16:53] LABS: Glucose,Whole Blood 228 mg/dL (75-99)
[2019-08-23 19:49] LABS: Glucose,Whole Blood 235 mg/dL (75-99)
[2019-08-23] MEDS: ATORVASTATIN 20 MG TAB PO SCH (21:14)
--- NOTE | 2019-08-23 22:14 | PN ---
PROGRESS NOTE DATE OF SERVICE: 08/23/2019. REASON FOR FOLLOWUP: Bilateral second toe wounds cellulitis. INTERVAL HISTORY: The patient is currently afebrile. She has been breathing comfortably. Denies having any chest pain or any cough. No nausea, no vomiting. Overall pain and swelling to the bilateral second toes have improved. PHYSICAL EXAMINATION: Blood pressure 149/65 with a pulse of 56, temperature 98. She is 99% on room air. General description is an elderly female lying in bed in no distress. RESPIRATORY SYSTEM: Unlabored breathing. Clear to auscultation anteriorly. HEART: S1, S2. Regular rate and rhythm. ABDOMEN: Soft. No tenderness. Bilateral second toe swelling and redness decreased, and no drainage. LABS: Hemoglobin is 10.6, white count 7.3, BUN of 16, creatinine 0.79. Wound cultures with E coli that is a sensitive pathogen. DIAGNOSTIC IMPRESSION AND PLAN: Patient with bilateral second toe wounds with secondary cellulitis. Culture with an E coli sensitive pathogen. Patient is currently on Unasyn. That will be transitioned to oral Augmentin on discharge. Local care to continue with Aquacel Silver dressing. Continue with supportive care. MMODL / IJN: [id number] /
[2019-08-24] MEDS: LEVOTHYROXINE 50 MCG TAB PO SCH (05:27)
[2019-08-24] MEDS: AMPICILLIN-SULBACTAM 3 GM in SODIUM CHLORIDE 0.9% 100 ML IVPB SCH ×4 (05:27→23:23)
[2019-08-24] MEDS: ACETAMINOPHEN TAB 325 MG TAB PO PRN (05:34)
[2019-08-24 07:04] LABS: Glucose,Whole Blood 131 mg/dL (75-99)
[2019-08-24 07:14] LABS: Basophils % (A) 0 %; Eosinophils # (A) 0.2 k/uL (0-0.7); Eosinophils % (A) 3 %; HGB 10.7 gm/dL (11.4-16.0); Lymphocytes # (A) 0.8 k/uL (1.0-4.8); Lymphocytes % (A) 14 %; MCH 29.7 pg (25.0-35.0); MCHC 33.6 g/dL (31.0-37.0); MCV 88.3 fL (80.0-100.0); Mean Platelet Volume 8.4; Monocytes # (A) 0.3 k/uL (0-1.0); Monocytes % (A) 5 %; Neutrophils # (A) 4.5 k/uL (1.3-7.7); Neutrophils % (A) 75 %; Platelet Count 252 k/uL (150-450); RBC 3.62 m/uL (3.80-5.40); RDW 13.5 % (11.5-15.5); WBC 5.9 k/uL (3.8-10.6)
[2019-08-24 07:24] LABS: Calcium 9.5 mg/dL (8.4-10.2); Potassium 3.8 mmol/L (3.5-5.1)
[2019-08-24] MEDS: ASPIRIN 81 MG PO SCH (08:13)
[2019-08-24] MEDS: FAMOTIDINE 20 MG TAB PO SCH (08:13)
[2019-08-24] MEDS: METOPROLOL TARTRATE 50 MG TAB PO SCH ×2 (08:13→20:31)
[2019-08-24] MEDS: metFORMIN 500 MG TAB PO SCH ×2 (08:13→20:31)
[2019-08-24] MEDS: ENOXAPARIN 40 MG/0.4 ML SYRINGE SQ SCH (08:13)
[2019-08-24] MEDS: CLOPIDOGREL 75 MG TAB PO SCH (08:15)
[2019-08-24] MEDS: amLODIPine 10 MG TAB PO SCH (08:15)
[2019-08-24] MEDS: hydrALAZINE HCL 50 MG TAB PO SCH ×3 (08:15→21:08)
[2019-08-24] MEDS: glipiZIDE 5 MG TAB PO SCH ×2 (08:15→18:01)
[2019-08-24] MEDS: LISINOPRIL-HCTZ 20-12.5 MG 1 EACH TAB PO SCH ×2 (08:15→21:08)
[2019-08-24] MEDS: INSULIN ASPART (NovoLOG) 100 UNIT/ML VIAL SQ SCH ×4 (08:16→20:32)
[2019-08-24 11:33] LABS: Glucose,Whole Blood 221 mg/dL (75-99)
[2019-08-24 16:28] LABS: Glucose,Whole Blood 156 mg/dL (75-99)
[2019-08-24 20:19] LABS: Glucose,Whole Blood 283 mg/dL (75-99)
[2019-08-24] MEDS: ATORVASTATIN 20 MG TAB PO SCH (20:31)
--- NOTE | 2019-08-24 21:07 | PN ---
PROGRESS NOTE DATE OF SERVICE: 08/24/2019 This 84-year-old woman was admitted with left foot infection and cellulitis. The patient also had TIA. Patient also had change in mental status. Patient closely monitored. PT/OT is evaluating the patient, recommending ECF rehab at this time. A foot x-ray was also done which showed degenerative joint disease. No evidence of osteomyelitis. The is apparently refusing the ECF rehab thinking that the patient has to go to [place]. At this time the patient is being closely monitored. PAST MEDICAL HISTORY: Reviewed. REVIEW OF SYSTEMS: CARDIOVASCULAR SYSTEM: No angina. RESPIRATORY: As mentioned earlier. GI: No nausea. : No dysuria. NERVOUS SYSTEM: No numbness. Generalized weakness. CURRENT MEDICATIONS: 1. Tylenol 650 q.6h p.r.n. 2. Norvasc 10 mg p.o. daily. 3. Unasyn 3 grams IV q.6. 4. Aspirin 81 mg. 5. Lipitor 20 mg q.h.s. 6. Plavix 10 mg p.o. daily. 7. Lovenox 40 mg subcu daily. 8. Pepcid 20 mg p.o. daily. 9. Glucotrol 5 mg a.c. b.i.d. 10.( ) 20/12.5 p.o. b.i.d. 11.Apresoline 10 mg q.4 p.r.n. 12.Apresoline 50 mg p.o. t.i.d. 13.NovoLog scale. 14.Synthroid 50 mcg p.o. daily. 15.Glucophage 500 mg p.o. b.i.d. 16.Lopressor 50 mg p.o. b.i.d. 17.Narcan p.r.n. PHYSICAL EXAMINATION: Patient is alert, oriented x3. Pulse 60, blood pressure 150/72, respirations 16, temperature 98.6, pulse ox 98% on room air. HEENT: Conjunctivae normal. Oral mucosa moist. NECK: No jugular venous distention. No lymph node enlargement. CARDIOVASCULAR: S1, S2. RESPIRATORY: Diminished breath sounds at the bases. Bilateral scattered rhonchi and crackles. ABDOMEN: Soft, nontender. LEGS: No edema, no swelling. Foot abscess present. NERVOUS SYSTEM: Diffusely weak. LABS: WBC 5.2, hemoglobin 10.7. Glucose 131, 221, 235. ASSESSMENT: 1. Acute bilateral foot wound infection with failure of outpatient treatment, left more than the right. 2. Transient ischemic attack with gait dysfunction. 3. Accelerated hypertension, hypertensive urgency. 4. Internal carotid stenosis, being followed Dr. Cervantes with possible outpatient surgery. 5. Chronic right shoulder dysfunction. 6. History of coronary artery disease. 7. Diabetes mellitus type 2 on oral hypoglycemic agent with some hyperglycemia. 8. Right eye blindness. 9. Hypertension, essential. 10.Hyperlipidemia. 11.History of degenerative joint disease. 12.Diabetic peripheral neuropathy. 13.Chronic urinary incontinence. 14.NO CODE, NO CPR, NO VENT. RECOMMENDATIONS AND DISCUSSION: I recommend to continue current medications, continue to monitor, continue symptomatic treatment. At this time I recommend to monitor blood pressure closely, PT/OT evaluation. Continue the antibiotics. Otherwise, possible ECF rehab. Guarded prognosis because of multiple complex medical issues. Further recommendations to follow. Discussed with the patient and discussed with the . MMSHIV / IJN: [id number] /
[2019-08-25] MEDS: ACETAMINOPHEN TAB 325 MG TAB PO PRN (02:02)
--- NOTE | 2019-08-25 04:46 | PN ---
PROGRESS NOTE DATE OF SERVICE: 08/24/2019 REASON FOR FOLLOWUP VISIT: Bilateral second toe wound with cellulitis. INTERVAL HISTORY: The patient is currently afebrile. Patient has been breathing comfortably. The patient denies having any chest pain, shortness of breath or cough. No vomiting or any diarrhea. PHYSICAL EXAMINATION: Blood pressure is 126/54 with a pulse of 68, temperature 98.1. She is 98% on room air. General description is an elderly female up in the chair in no distress. Respiratory system: Unlabored breathing and clear to auscultation anteriorly. Heart S1, S2. Regular rate and rhythm. Abdomen soft, no tenderness. Bilateral second toe swelling slightly decreased, no drainage. LABS: Hemoglobin is 10.7, white count 5.9, BUN of 18, creatinine 0.86. Wound culture with MSSA, Staph aureus, E coli. DIAGNOSTIC IMPRESSION AND PLAN: Patient with bilateral second toe wound with secondary cellulitis. Culture has been MSSA and E coli. The patient is covered with Unasyn. We will transition to oral antibiotic on discharge. We will also check a uric acid level as there are some features of gout. Continue supportive care. MMODL / IJN: [id number] /
[2019-08-25] MEDS: LEVOTHYROXINE 50 MCG TAB PO SCH (05:33)
[2019-08-25] MEDS: AMPICILLIN-SULBACTAM 3 GM in SODIUM CHLORIDE 0.9% 100 ML IVPB SCH ×4 (05:37→23:13)
[2019-08-25 06:48] LABS: Glucose,Whole Blood 149 mg/dL (75-99)
[2019-08-25 06:58] LABS: Basophils % (A) 0 %; Eosinophils # (A) 0.2 k/uL (0-0.7); Eosinophils % (A) 3 %; HCT 30.9 % (34.0-46.0); HGB 10.1 gm/dL (11.4-16.0); Lymphocytes # (A) 1.1 k/uL (1.0-4.8); Lymphocytes % (A) 14 %; MCH 29.4 pg (25.0-35.0); MCHC 32.8 g/dL (31.0-37.0); MCV 89.8 fL (80.0-100.0); Mean Platelet Volume 8.4; Monocytes # (A) 0.3 k/uL (0-1.0); Monocytes % (A) 4 %; Neutrophils # (A) 6.2 k/uL (1.3-7.7); Neutrophils % (A) 77 %; Platelet Count 246 k/uL (150-450); RBC 3.44 m/uL (3.80-5.40); RDW 13.7 % (11.5-15.5)
[2019-08-25 07:12] LABS: Calcium 9.1 mg/dL (8.4-10.2)
[2019-08-25] MEDS: LISINOPRIL-HCTZ 20-12.5 MG 1 EACH TAB PO SCH ×2 (07:58→20:44)
[2019-08-25] MEDS: FAMOTIDINE 20 MG TAB PO SCH (07:58)
[2019-08-25] MEDS: amLODIPine 10 MG TAB PO SCH (07:58)
[2019-08-25] MEDS: glipiZIDE 5 MG TAB PO SCH ×2 (07:58→17:46)
[2019-08-25] MEDS: hydrALAZINE HCL 50 MG TAB PO SCH ×3 (07:58→20:44)
[2019-08-25] MEDS: CLOPIDOGREL 75 MG TAB PO SCH (07:58)
[2019-08-25] MEDS: ASPIRIN 81 MG PO SCH (07:58)
[2019-08-25] MEDS: METOPROLOL TARTRATE 50 MG TAB PO SCH ×2 (07:58→23:15)
[2019-08-25] MEDS: metFORMIN 500 MG TAB PO SCH ×2 (07:58→20:44)
[2019-08-25] MEDS: INSULIN ASPART (NovoLOG) 100 UNIT/ML VIAL SQ SCH ×4 (07:59→20:44)
[2019-08-25] MEDS: ENOXAPARIN 40 MG/0.4 ML SYRINGE SQ SCH (07:59)
[2019-08-25 08:05] LABS: C Reactive Protein 11.4 mg/L (<10.0)
[2019-08-25 11:34] LABS: Glucose,Whole Blood 118 mg/dL (75-99)
--- NOTE | 2019-08-25 16:14 | XR ---
EXAMINATION TYPE: XR chest 1V portable DATE OF EXAM: 08/25/2019 COMPARISON: 06/19/2019 HISTORY: Shortness of breath TECHNIQUE: Single frontal view of the chest is obtained. FINDINGS: Postoperative change with cardiomegaly and diffuse interstitial pattern with tiny effusion s. No pneumothorax. Arthropathy of the shoulders. IMPRESSION: Correlate for mild CHF
--- NOTE | 2019-08-25 16:23 | PN ---
PROGRESS NOTE DATE OF SERVICE: 08/25/2019 This 84-year-old woman who was admitted with acute bilateral foot wound infection with failure of outpatient treatment is on broad-spectrum IV antibiotics. Patient also had TIA and weakness also. Patient also had accelerated hypertension, blood pressure and pain medication range adjusted. No chest pain. No palpitations. No fever. PAST MEDICAL HISTORY: Reviewed. REVIEW OF SYSTEMS: Cardiovascular system: No angina or palpitations. Respiratory: As mentioned earlier. Gastrointestinal: As mentioned earlier. no dysuria. CENTRAL NERVOUS SYSTEM: Diffusely weak. CURRENT MEDICATIONS: Reviewed and include: 1. Tylenol 650 q.6h p.r.n. 2. Norvasc 10 mg p.o. daily. 3. Unasyn 3 grams IV q.6h. 4. Aspirin 81 mg. 5. Lipitor 20 mg daily. 6. Plavix 75 mg daily. 7. Lovenox 40 mg subcu daily. 8. Pepcid 20 mg. 9. Glucotrol 5 mg a.c. b.i.d. 10.Zestril 12/12.5 mg p.o. b.i.d. 11.Apresoline 10 mg q.4 p.r.n. 12.NovoLog scale. 13.Synthroid. 14.Glucophage. 15.Lopressor. 16.Narcan. PHYSICAL EXAMINATION: Alert and oriented x3. Pulse 88, blood pressure 160/90, respirations 16, temperature 97.8, pulse ox 98% on room air. HEENT: Conjunctivae normal. Oral mucosa moist. NECK is no jugular venous distention. No carotid bruit. No lymph node enlargement. CARDIOVASCULAR systems: S1, S2 muffled. RESPIRATION: Breath sounds diminished in the bases. A few scattered rhonchi and crackles. ABDOMEN: Soft, nontender. LEGS: No edema, no swelling. CENTRAL NERVOUS SYSTEM: Diffusely weak. LAB: WBC 8.2, hemoglobin 10.1, glucose 134. C-reactive protein 11.4. ASSESSMENT: 1. Acute bilateral foot wound infection with failure of outpatient treatment, left more than the right. 2. Transient ischemic attack with gait dysfunction. 3. Accelerated hypertension, hypertensive urgency. 4. Internal carotid stenosis being followed Dr. Sorto with possible outpatient surgery. 5. Chronic right shoulder dysfunction. 6. E coli, Staph aureus, Ivett not albicans glabrata from the cultures. 7. History of coronary artery disease. 8. Diabetes mellitus type 2 with hypoglycemic agents with some hyperglycemia as well. 9. Right eye blindness. 10.Hypertension essential. 11.Hyperlipidemia. 12.History of degenerative joint disease. 13.History of diabetic peripheral neuropathy. 14.History of incontinence, chronic. 15.NO CODE, NO CPR. NO VENT. RECOMMENDATIONS AND DISCUSSION: I recommend to continue current medications, management and symptomatic treatment. PT/OT evaluation, possible ECF rehab. is not very keen on sending the patient to rehab at this time but I discussed the case at length and they will consider rehab at this time. The was under the impression that the rehab was in [place] apparently. Otherwise, the cultures showed wound culture showed E coli Staph aureus and Ivett is not albicans glabrata. We will continue the Unasyn per Infectious Disease evaluations. DVT prophylaxis. Otherwise, I would also recommend to add antifungals to the current regimen. Further recommendations to follow. See orders for details. MMODL / IJN: [id number] /
[2019-08-25 16:44] LABS: Glucose,Whole Blood 134 mg/dL (75-99)
[2019-08-25] MEDS: FLUCONAZOLE 100 MG TAB PO SCH (17:46)
[2019-08-25 20:37] LABS: Glucose,Whole Blood 168 mg/dL (75-99)
[2019-08-25] MEDS: ATORVASTATIN 20 MG TAB PO SCH (20:44)
--- NOTE | 2019-08-25 22:30 | PN ---
PROGRESS NOTE DATE OF SERVICE: 08/25/2019 REASON FOR FOLLOWUP: Bilateral second toe wound and cellulitis. INTERVAL HISTORY: The patient is currently afebrile. She is breathing comfortably. Denies having any chest pain or any cough. No nausea, vomiting, or abdominal pain. No diarrhea. Pain to the bilateral big toe. PHYSICAL EXAMINATION: Blood pressure 159/63 with a pulse of 57, temperature 98.2. She is 95% on room air. General description is an elderly female up in the chair in no distress. Respiratory system: Unlabored breathing. Clear to auscultation anteriorly. Heart S1, S2. Regular rate and rhythm. ABDOMEN: Soft, no tenderness. Bilateral second toes swelling and redness improved. LABS: Hemoglobin is 10.1, white count 8.0, creatinine 0.91. DIAGNOSTIC IMPRESSION AND PLAN: Patient with bilateral second toe wound with secondary cellulitis left greater than right. Culture has been positive for MSSA E coli. The patient covered with Unasyn to finish therapy with oral Augmentin and monitor clinical course closely. Continue supportive care. MMODL / IJN: [id number] /
[2019-08-26] MEDS: LEVOTHYROXINE 50 MCG TAB PO SCH (05:08)
[2019-08-26] MEDS: AMPICILLIN-SULBACTAM 3 GM in SODIUM CHLORIDE 0.9% 100 ML IVPB SCH ×2 (05:08→12:12)
[2019-08-26 06:56] LABS: Glucose,Whole Blood 134 mg/dL (75-99)
[2019-08-26 08:14] VITALS: BP 171/71; PULSE 64; RESP 17; TEMP 97.9
[2019-08-26] MEDS: INSULIN ASPART (NovoLOG) 100 UNIT/ML VIAL SQ SCH ×2 (08:24→12:15)
[2019-08-26] MEDS: glipiZIDE 5 MG TAB PO SCH (08:24)
[2019-08-26] MEDS: FAMOTIDINE 20 MG TAB PO SCH (08:25)
[2019-08-26] MEDS: FLUCONAZOLE 100 MG TAB PO SCH (08:25)
[2019-08-26] MEDS: ENOXAPARIN 40 MG/0.4 ML SYRINGE SQ SCH (08:25)
[2019-08-26] MEDS: LISINOPRIL-HCTZ 20-12.5 MG 1 EACH TAB PO SCH (08:25)
[2019-08-26] MEDS: amLODIPine 10 MG TAB PO SCH (08:25)
[2019-08-26] MEDS: CLOPIDOGREL 75 MG TAB PO SCH (08:25)
[2019-08-26] MEDS: ASPIRIN 81 MG PO SCH (08:25)
[2019-08-26] MEDS: metFORMIN 500 MG TAB PO SCH (08:25)
[2019-08-26] MEDS: hydrALAZINE HCL 50 MG TAB PO SCH (08:26)
[2019-08-26] MEDS: METOPROLOL TARTRATE 50 MG TAB PO SCH (08:26)
[2019-08-26 12:05] LABS: Glucose,Whole Blood 163 mg/dL (75-99)
--- NOTE | 2019-08-26 12:50 | PN ---
PROGRESS NOTE DATE OF SERVICE: 08/26/2019 REASON FOR FOLLOWUP: Bilateral second toe wound and cellulitis. INTERVAL HISTORY: The patient is currently afebrile. Patient is breathing comfortably. The patient denies having any chest pain. No shortness of breath or cough. No nausea, vomiting, abdominal pain. Pain to the bilateral foot wound area. PHYSICAL EXAMINATION: Blood pressure 171/71 with a pulse of 64 temperature is 97.9. She is 98% on room air. General description is an elderly female up in the bed in no distress. RESPIRATORY SYSTEM: Unlabored breathing, clear to auscultation anteriorly. HEART: S1, S2. Regular rate and rhythm. ABDOMEN: Soft, no tenderness. The left second toe swelling and redness has improved. Wound has dried out and no drainage. LABS: No new labs been obtained today. DIAGNOSTIC IMPRESSION AND PLAN: Patient with bilateral second toe cellulitis, left great than right. Culture is positive for Escherichia coli and MSSA. The patient improved on IV Unasyn. She will continue with course of oral Augmentin. Local care with dry Aquacel Silver dressing. Keep the area off the pressure. Continue supportive care. MMODL / IJN: [id number] /
--- NOTE | 2019-08-27 08:34 | P.DS ---
Providers Date of admission: 08/20/19 18:07 Expected date of discharge: 08/26/19 Attending physician: Elan Nagel Consults: 08/20/19 18:07 Consult Physician Routine Consulting Provider: Maicol Rivero Consult Reason/Comments: Per Dr. Nagel, ID consult, DM foot infection Do you want consulting provider notified?: Yes, Notify in am Primary care physician: [facility] Course: Final diagnosis Acute bilateral foot wound infection with failure of outpatient treatment, left more than right Transient ischemic attack with gait dysfunction Accelerated hypertension, hypertensive urgency Internal carotid stenosis being followed by Dr. Sorto with possible outpatient surgery Chronic right shoulder dysfunction E. coli, staph aureus, Ivett not albicans glabrata from the cultures History of coronary artery disease Diabetes mellitus type 2 with hypoglycemic agents with some hyperglycemia as well Right eye blindness Hypertension essential Hyperlipidemia history degenerative joint disease History of diabetic peripheral neuropathy History of incontinence, chronic No code, no CPR, no vent Discharge disposition Patient is being discharged in a stable condition with guarded prognosis to home and will have continued home care. She will follow-up with Dr. Ramirez in the outpatient setting upon discharge. Patient will continue on oral antibiotics in the form of Augmentin twice daily for the next 10 days. Total time taken is 35 minutes. History of present illness This is an 84-year-old female who was recently admitted with acute bilateral foot wound infections with failure of outpatient treatment and was currently on broad-spectrum IV antibiotics cultures finalized showing E. coli, Staphylococcus aureus, Ivett species not albicans glabrata and will transition to oral antibiotics in the form of Augmentin 875 twice daily for the next 10 days. Infectious disease was following. Patient also continue to have gait dysfunction and was working with PT/OT. Patient was slated to go to rehab for continued PT/OT therapy but patient and family refused and is agreeable to go home with home care. Currently no report chest pain or palpitations. Patient denies any shortness of breath. Patient is afebrile. No reports of nausea or vomiting and patient is tolerating diet. Currently patient's condition is stable and is ready for discharge today. On exam vital signs are stable. Temp is 97.9F, pulse is 64, respirations are 17, blood pressure is 171/71, oxygen saturation is 98% on room air. Cardio S1, S2 are muffled. Respiratory system shows diminished breath sounds at the bases with no wheezing or rhonchi noted. Abdomen is soft and nontender. Nervous system shows no focal deficits. Please refer to medication reconciliation sheet for a list of medications. Patient Condition at Discharge: Stable Plan - Discharge Summary Discharge Rx Participant: Yes New Discharge Prescriptions: New hydrALAZINE HCL [Apresoline] 50 mg PO TID 30 Days #90 tab Amoxic-Pot Clav 875-125Mg [Augmentin 875-125] 1 tab PO Q12HR 10 Days #20 tablet Fluconazole [Diflucan] 100 mg PO DAILY 7 Days #7 tab amLODIPine [Norvasc] 10 mg PO DAILY 30 Days #30 tab Continue Levothyroxine Sodium [Synthroid] 50 mcg PO DAILY glyBURIDE [Diabeta] 5 mg PO AC-BID Clopidogrel [Plavix] 75 mg PO DAILY Famotidine [Pepcid] 20 mg PO DAILY Atorvastatin [Lipitor] 20 mg PO HS #30 tab Metoprolol Tartrate [Lopressor] 50 mg PO BID #60 tab Aspirin 81 mg PO DAILY metFORMIN HCL [Glucophage] 500 mg PO BID Lisinopril-Hctz 20-12.5 mg [Zestoretic 20-12.5] 1 tab PO BID Discharge Medication List Levothyroxine Sodium [Synthroid] 50 mcg PO DAILY 01/07/17 [History] Clopidogrel [Plavix] 75 mg PO DAILY 05/24/19 [History] glyBURIDE [Diabeta] 5 mg PO AC-BID 05/24/19 [History] Famotidine [Pepcid] 20 mg PO DAILY 06/19/19 [History] Atorvastatin [Lipitor] 20 mg PO HS #30 tab 06/22/19 [Rx] Metoprolol Tartrate [Lopressor] 50 mg PO BID #60 tab 06/22/19 [Rx] Aspirin 81 mg PO DAILY 08/20/19 [History] Lisinopril-Hctz 20-12.5 mg [Zestoretic 20-12.5] 1 tab PO BID 08/20/19 [History] metFORMIN HCL [Glucophage] 500 mg PO BID 08/20/19 [History] Amoxic-Pot Clav 875-125Mg [Augmentin 875-125] 1 tab PO Q12HR 10 Days #20 tablet 08/26/19 [Rx] Fluconazole [Diflucan] 100 mg PO DAILY 7 Days #7 tab 08/26/19 [Rx] amLODIPine [Norvasc] 10 mg PO DAILY 30 Days #30 tab 08/26/19 [Rx] hydrALAZINE HCL [Apresoline] 50 mg PO TID 30 Days #90 tab 08/26/19 [Rx] Follow up Appointment(s)/Referral(s): Esvin Ramirez DO [Primary Care Provider] - 08/27/19 1:00 pm [facility], [NON-STAFF] - Patient Instructions/Handouts: Cellulitis (DC) Activity/Diet/Wound Care/Special Instructions: Activity Limited until follow-up Follow-up with primary care provider upon discharge Continue antibiotics until finished Follow-up with home care Continue current diet Discharge Disposition: HOME WITH HOME HEALTH SERVICES
--- NOTE | 2019-08-27 13:12 | CDI ---
Documentation Clarification Form Date: 08/27/19 From: Jessie Crespo Phone: If you have a question about this query, please contact Marge Kathleen, Manager [employer] at [phone] between 8am and 5pm. Admit Date: 08/20/19 Discharge Date:08/26/19 Patient Name: Maryann Sawyer Visit Number: [id number] ATTENTION: The Clinical Documentation Specialists (CDI) and [facility] Coding Staff appreciate your assistance in clarifying documentation. Please respond to the clarification below the line at the bottom and electronically sign. The CDI & [facility] Coding staff will review the response and follow-up if needed. Please note: Queries are made part of the Legal Health Record. If you have any questions, please contact the author of this message via ITS. Dear Dr. Ochoa Patient also had change in mental status was documented in your 08/24 progress note History/Risk Factors: Cellulitis bilateral foot, bilateral 2nd toe ulcers, Diabetes with hyperglycemia, history of CVA, stenosis right internal carotid artery Clinical Indicators: altered mental status Labs: BUN 18, glucose 113, hgb 10.7, hct 32.0 X Ray: Chest: Cardiomegaly and diffuse interstitial pattern with tiny effusions Treatment: IV Zosyn, IV Vancomycin, IV Unasyn In your professional opinion, please clarify the etiology of the Altered Mental Status, if known. Delirium (specify cause): Dementia (if know, specify Type and if with/without Behavioral Disturbance) Encephalopathy (specify Type and Underlying Medical Illness) Other condition (please specify) Unable to determine Delirium MTDD
== END 2019-08-26 13:09 | disposition home health service (06) | DRG 638 ==
LOC: EC 14:33 → 5NMEDONC 18:07 → 4SSUR 23:03
PROVIDERS: ADMIT Hospitalist; ATTEND Hospitalist
DX: E11.628 Type 2 diabetes mellitus with other skin complications (principal); L03.116 Cellulitis of left lower limb; L03.115 Cellulitis of right lower limb; I69.354 Hemiplegia and hemiparesis following cerebral infarction affecting left non-dominant side; E11.319 Type 2 diabetes mellitus with unspecified diabetic retinopathy without macular edema; E11.42 Type 2 diabetes mellitus with diabetic polyneuropathy; E11.621 Type 2 diabetes mellitus with foot ulcer; L97.529 Non-pressure chronic ulcer of other part of left foot with unspecified severity; B96.20 Unspecified Escherichia coli [E. coli] as the cause of diseases classified elsewhere; R41.0 Disorientation, unspecified; B95.61 Methicillin susceptible Staphylococcus aureus infection as the cause of diseases classified elsewhere; E03.9 Hypothyroidism, unspecified; E11.65 Type 2 diabetes mellitus with hyperglycemia; E78.5 Hyperlipidemia, unspecified; G89.4 Chronic pain syndrome; H54.61 Unqualified visual loss, right eye, normal vision left eye; I10 Essential (primary) hypertension; I16.0 Hypertensive urgency; I25.10 Atherosclerotic heart disease of native coronary artery without angina pectoris; I65.21 Occlusion and stenosis of right carotid artery; M19.91 Primary osteoarthritis, unspecified site; R32 Unspecified urinary incontinence; K21.9 Gastro-esophageal reflux disease without esophagitis; K44.9 Diaphragmatic hernia without obstruction or gangrene; G56.03 Carpal tunnel syndrome, bilateral upper limbs; R26.9 Unspecified abnormalities of gait and mobility; M25.811 Other specified joint disorders, right shoulder; Z79.890 Hormone replacement therapy; Z79.02 Long term (current) use of antithrombotics/antiplatelets; Z79.82 Long term (current) use of aspirin; Z79.84 Long term (current) use of oral hypoglycemic drugs; Z79.899 Other long term (current) drug therapy; Z90.710 Acquired absence of both cervix and uterus; Z95.1 Presence of aortocoronary bypass graft; Z88.6 Allergy status to analgesic agent; Z91.041 Radiographic dye allergy status; Z91.013 Allergy to seafood; Z90.49 Acquired absence of other specified parts of digestive tract; Z87.440 Personal history of urinary (tract) infections; Z91.81 History of falling; Z98.42 Cataract extraction status, left eye; Z98.41 Cataract extraction status, right eye; Z96.1 Presence of intraocular lens; Z66 Do not resuscitate; Z83.79 Family history of other diseases of the digestive system; Z80.9 Family history of malignant neoplasm, unspecified
CPT/HCPCS: 36415; 71045; 80048; 80053; 83036; 83605; 84550; 85025; 85027; 86140; 87040; 87070; 87075; 87077; 87186; 87205; 96361; 96365; 96366; 96368; 96375; 99284

== ENCOUNTER 2020-01-07 12:33 | Day surgery (SDC) | payer MEDICARE, OTHER ==
[2020-01-06 10:22] VITALS: BMI 29.0
[2020-01-07 13:25] LABS: Glucose,Whole Blood 119 mg/dL (75-99)
[2020-01-07 13:39] VITALS: BP 211/90; PULSE 67; RESP 16; TEMP 98
[2020-01-07] MEDS ORDERED: LIDOCAINE 1% INJ 10MG/ML (20 ML MDV) ONE (14:42)
[2020-01-07] MEDS ORDERED: LIDOCAINE 1% INJ 10MG/ML (20 ML MDV) SQ ONE (14:47)
--- NOTE | 2020-01-07 16:57 | IR ---
EXAMINATION TYPE: IR cvc insert >=5 years DATE OF EXAM: 01/07/2020 COMPARISON: NONE CLINICAL HISTORY: Infection Needs long-term intravenous access for antibiotics. PROCEDURE: Hand hygiene obtained with soap and water and alcohol-based hand rub. After informed consent, the skin overlying the left brachial vein was localized with ultrasound and n oted to be compressible and patent. An ultrasound image was obtained and submitted on the patient's chart. The overlying skin was prepped and draped and Lidocaine was used for local anesthesia. A ski n joaquin was made with a scalpel. Access was gained to the vein under ultrasound guidance with a 21 ga uge needle and a 0.018 inch wire was advanced. Access site was dilated with Peel-Away sheath and cat heter tailored to the appropriate length and advanced such that the distal tip is at the cavoatrial j unction. Spot image was obtained verifying placement. Catheter was fixed to the skin and a sterile dressing was placed following hemostasis. Catheter was aspirated and flushed with saline. Patient w as discharged in stable condition without complication.Maximal barrier technique is utilized. Ultras ound image is documented on the chart. Ultrasound used with sterile technique. Fluoro time and fluoroscopic images submitted to document procedure: 145 intraoperative images, 0.3 m inutes fluoroscopy time IMPRESSION: STATUS POST ULTRASOUND AND FLUOROSCOPIC GUIDED PICC LINE PLACEMENT, READY FOR USE. THIS PROCEDURE WAS PERFORMED BY THE UNDERSIGNED.
== END 2020-01-07 15:24 | disposition home or self-care (01) ==
LOC: CATHCVL 12:33
PROVIDERS: ATTEND Radiology Diagnostic Radiology
DX: M86.171 Other acute osteomyelitis, right ankle and foot (principal); S91.301A Unspecified open wound, right foot, initial encounter; L03.031 Cellulitis of right toe; H53.451 Other localized visual field defect, right eye; K21.9 Gastro-esophageal reflux disease without esophagitis; R32 Unspecified urinary incontinence; M62.81 Muscle weakness (generalized); R42 Dizziness and giddiness; J31.0 Chronic rhinitis; Z88.6 Allergy status to analgesic agent; Z91.048 Other nonmedicinal substance allergy status; Z88.8 Allergy status to other drugs, medicaments and biological substances; X58.XXXA Exposure to other specified factors, initial encounter
CPT/HCPCS: 36573; 82565; 84520; C1751; C1769; J2001

== ENCOUNTER 2020-01-29 16:07 | Inpatient (IN) | payer MEDICARE, OTHER ==
[2020-01-29 17:06] LABS: Glucose,Whole Blood 120 mg/dL (75-99)
[2020-01-29] MEDS ORDERED: SODIUM CHLORIDE 0.9% 500 ML 500 ML IV STA (17:06)
[2020-01-29] MEDS ORDERED: SODIUM CHLORIDE 0.9% 1,000 ML IV STA (17:06)
--- NOTE | 2020-01-29 17:12 | ED ---
Dizziness HPI - General Chief Complaint: Syncope Stated Complaint: dizziness Time Seen by Provider: 01/29/20 16:44 Source: patient, EMS, RN notes reviewed Mode of arrival: EMS Limitations: no limitations - History of Present Illness Initial Comments: This 84-year-old female who is brought in from her doctor's office where she was being evaluated for a wound she had felt lightheadedness some dizziness. She felt like she might pass out but denies he passed out. She was found to also have low blood pressure at the office. She was sent here for further evaluation no reports of fevers chills nausea times sweats no falls or trauma no abnormal behavior no focal weakness. MD Complaint: dizziness, lightheadedness, near syncope - Related Data Home Medications Medication Instructions Recorded Confirmed Levothyroxine Sodium [Synthroid] 50 mcg PO DAILY 01/07/17 01/07/20 Clopidogrel [Plavix] 75 mg PO DAILY 05/24/19 01/07/20 glyBURIDE [Diabeta] 5 mg PO AC-BID 05/24/19 01/07/20 Lisinopril-Hctz 20-12.5 mg 1 tab PO BID 08/20/19 01/07/20 [Zestoretic 20-12.5] Atorvastatin [Lipitor] 40 mg PO HS 01/06/20 01/07/20 Cholecalciferol [Vitamin D3 (25 2,000 unit PO DAILY 01/06/20 01/07/20 Mcg = 1000 Iu)] Cranberry Fruit Extract [Cranberry] 4,200 mg PO DAILY 01/06/20 01/07/20 Doxycycline Hyclate [Vibramycin] 100 mg PO BID 01/06/20 01/07/20 Gabapentin [Neurontin] 300 mg PO BID 01/06/20 01/07/20 Omeprazole [PriLOSEC] 20 mg PO AC-BRKFST 01/06/20 01/07/20 Vitamin C/Biotin [Hair, Skin and 1 tab PO DAILY 01/06/20 01/07/20 Nails] sitaGLIPtin [Januvia] 50 mg PO DAILY 01/06/20 01/07/20 Previous Rx's Medication Instructions Recorded Metoprolol Tartrate [Lopressor] 50 mg PO BID #60 tab 06/22/19 amLODIPine [Norvasc] 10 mg PO DAILY 30 Days #30 tab 08/26/19 hydrALAZINE HCL [Apresoline] 50 mg PO TID 30 Days #90 tab 08/26/19 Allergies Allergy/AdvReac Type Severity Reaction Status Date / Time aspirin Allergy Rash/Hives Verified 01/29/20 16:18 fish derived Allergy Rash/Hives Verified 01/29/20 16:18 Iodinated Contrast Media Allergy Rash/Hives Verified 01/29/20 16:18 [Iodinated Contrast Media - IV Dye] Iodine and Iodide Containing Allergy Rash/Hives Verified 01/29/20 16:18 Produc shellfish derived [Shellfish] Allergy Rash/Hives Verified 01/29/20 16:18 sulfamethoxazole Allergy Itching Verified 01/29/20 16:18 [From Bactrim] trimethoprim [From Bactrim] Allergy Itching Verified 01/29/20 16:18 Review of Systems ROS Statement: Those systems with pertinent positive or pertinent negative responses have been documented in the HPI. ROS Other: All systems not noted in ROS Statement are negative. 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 Wound Rt 2nd toe. 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 Past Anesthesia/Blood Transfusion Reactions: Motion Sickness, Postoperative Nausea & Vomiting (PONV) Past Psychological History: No Psychological Hx Reported Smoking Status: Never smoker Past Alcohol Use History: None Reported Past Drug Use History: None Reported - Past Family History Father Family Medical History: Liver Disease Additional Family Medical History / Comment(s): Father of cirrhosis. He was a drinker. Mother Family Medical History: Unable to Obtain Additional Family Medical History / Comment(s): Pt states she does not know her mother's medical history. Son(s) Family Medical History: Unable to Obtain, Renal Disease Daughter(s) Family Medical History: Cancer General Exam - General Exam Comments Initial Comments: This is a well-developed sec appearing female who is awake alert in no acute distress Limitations: no limitations General appearance: alert, in no apparent distress Head exam: Present: atraumatic, normocephalic, normal inspection Eye exam: Present: normal appearance, PERRL, EOMI. Absent: scleral icterus, con junctival injection, periorbital swelling ENT exam: Present: mucous membranes dry Neck exam: Present: normal inspection. Absent: tenderness, meningismus, lymphadenopathy Respiratory exam: Present: normal lung sounds bilaterally. Absent: respiratory distress, wheezes, rales, rhonchi, stridor Cardiovascular Exam: Present: regular rate, normal rhythm, normal heart sounds. Absent: systolic murmur, diastolic murmur, rubs, gallop, clicks GI/Abdominal exam: Present: soft, normal bowel sounds. Absent: distended, tenderness, guarding, rebound, rigid Extremities exam: Present: normal inspection, full ROM, normal capillary refill. Absent: tenderness, pedal edema, joint swelling, calf tenderness Back exam: Present: normal inspection Neurological exam: Present: alert, oriented X3, CN II-XII intact Psychiatric exam: Present: normal affect, normal mood Skin exam: Present: warm, dry, intact, normal color. Absent: rash Course Vital Signs 01/29/20 16:18 Temperature 98.6 F Pulse Rate 66 Respiratory 18 Rate Blood Pressure 117/55 O2 Sat by Pulse 98 Oximetry EKG Findings - EKG Results: EKG: interpreted by ERMD, sinus rhythm (Sinus rhythm a 63 NH interval 150 to QRS 100 QT since QTC 446/[address] configuration.) Medical Decision Making - Medical Decision Making I did discuss findings the patient family as well as Dr. Ochoa who did come see the patient in emergency department patient be admitted for inpatient treatment she demonstrates dehydration and hypomagnesemia hypotensive episode or syncope also rhabdomyolysis - Lab Data Result diagrams: 01/29/20 17:11 01/29/20 17:11 Lab Results 01/29/20 01/29/20 01/29/20 Range/Units 16:52 17:11 17:11 WBC 6.6 (3.8-10.6) k/uL RBC 3.66 L (3.80-5.40) m/uL Hgb 10.9 L (11.4-16.0) gm/dL Hct 33.2 L (34.0-46.0) % MCV 90.7 (80.0-100.0) fL MCH 29.8 (25.0-35.0) pg MCHC 32.8 (31.0-37.0) g/dL RDW 14.1 (11.5-15.5) % Plt Count 196 (150-450) k/uL Neutrophils % 78 % Lymphocytes % 13 % Monocytes % 5 % Eosinophils % 2 % Basophils % 0 % Neutrophils # 5.2 (1.3-7.7) k/uL Lymphocytes # 0.9 L (1.0-4.8) k/uL Monocytes # 0.3 (0-1.0) k/uL Eosinophils # 0.1 (0-0.7) k/uL Basophils # 0.0 (0-0.2) k/uL PT 10.8 (9.0-12.0) sec INR 1.1 (<1.2) APTT 21.7 L (22.0-30.0) sec Sodium (137-145) mmol/L Potassium (3.5-5.1) mmol/L Chloride (98-107) mmol/L Carbon Dioxide (22-30) mmol/L Anion Gap mmol/L BUN (7-17) mg/dL Creatinine (0.52-1.04) mg/dL Est GFR (CKD-EPI)AfAm (>60 ml/min/1.73 sqM) Est GFR (CKD-EPI)NonAf (>60 ml/min/1.73 sqM) Glucose (74-99) mg/dL POC Glucose (mg/dL) 120 H (75-99) mg/dL POC Glu Pattern Keeper ID Omari, Rimma Calcium (8.4-10.2) mg/dL Magnesium (1.6-2.3) mg/dL Total Bilirubin (0.2-1.3) mg/dL AST (14-36) U/L ALT (4-34) U/L Alkaline Phosphatase (38-126) U/L Creatine Kinase (30-135) U/L Troponin I (0.000-0.034) ng/mL Total Protein (6.3-8.2) g/dL Albumin (3.5-5.0) g/dL 01/29/20 01/29/20 Range/Units 17:11 17:11 WBC (3.8-10.6) k/uL RBC (3.80-5.40) m/uL Hgb (11.4-16.0) gm/dL Hct (34.0-46.0) % MCV (80.0-100.0) fL MCH (25.0-35.0) pg MCHC (31.0-37.0) g/dL RDW (11.5-15.5) % Plt Count (150-450) k/uL Neutrophils % % Lymphocytes % % Monocytes % % Eosinophils % % Basophils % % Neutrophils # (1.3-7.7) k/uL Lymphocytes # (1.0-4.8) k/uL Monocytes # (0-1.0) k/uL Eosinophils # (0-0.7) k/uL Basophils # (0-0.2) k/uL PT (9.0-12.0) sec INR (<1.2) APTT (22.0-30.0) sec Sodium 138 (137-145) mmol/L Potassium 4.7 (3.5-5.1) mmol/L Chloride 108 H (98-107) mmol/L Carbon Dioxide 21 L (22-30) mmol/L Anion Gap 9 mmol/L BUN 27 H (7-17) mg/dL Creatinine 1.19 H (0.52-1.04) mg/dL Est GFR (CKD-EPI)AfAm 49 (>60 ml/min/1.73 sqM) Est GFR (CKD-EPI)NonAf 42 (>60 ml/min/1.73 sqM) Glucose 122 H (74-99) mg/dL POC Glucose (mg/dL) (75-99) mg/dL POC Glu Pattern Keeper ID Calcium 9.4 (8.4-10.2) mg/dL Magnesium 1.3 L (1.6-2.3) mg/dL Total Bilirubin 0.4 (0.2-1.3) mg/dL AST 40 H (14-36) U/L ALT 25 (4-34) U/L Alkaline Phosphatase 59 (38-126) U/L Creatine Kinase 462 H (30-135) U/L Troponin I <0.012 (0.000-0.034) ng/mL Total Protein 6.9 (6.3-8.2) g/dL Albumin 3.9 (3.5-5.0) g/dL - Radiology Data Radiology results: report reviewed (I did review the imaging and report no acute findings.), image reviewed Disposition Clinical Impression: Near syncope, Rhabdomyolysis, Dehydration, Hypomagnesemia Disposition: ADMITTED IP TO THIS [facility] Condition: Fair Referrals: Esvin Ramirez DO [Primary Care Provider] - 1-2 days
[2020-01-29 17:23] LABS: Basophils % (A) 0 %; Eosinophils # (A) 0.1 k/uL (0-0.7); Eosinophils % (A) 2 %; HCT 33.2 % (34.0-46.0); HGB 10.9 gm/dL (11.4-16.0); Lymphocytes # (A) 0.9 k/uL (1.0-4.8); Lymphocytes % (A) 13 %; MCH 29.8 pg (25.0-35.0); MCHC 32.8 g/dL (31.0-37.0); MCV 90.7 fL (80.0-100.0); Mean Platelet Volume 8.3; Monocytes # (A) 0.3 k/uL (0-1.0); Monocytes % (A) 5 %; Neutrophils # (A) 5.2 k/uL (1.3-7.7); Neutrophils % (A) 78 %; Platelet Count 196 k/uL (150-450); RBC 3.66 m/uL (3.80-5.40); RDW 14.1 % (11.5-15.5); WBC 6.6 k/uL (3.8-10.6)
[2020-01-29 17:32] LABS: Albumin 3.9 g/dL (3.5-5.0); Calcium 9.4 mg/dL (8.4-10.2); Magnesium 1.3 mg/dL (1.6-2.3); Potassium 4.7 mmol/L (3.5-5.1); Total Bilirubin 0.4 mg/dL (0.2-1.3); Total Protein 6.9 g/dL (6.3-8.2)
--- NOTE | 2020-01-29 17:36 | XR ---
EXAMINATION TYPE: XR chest 2V DATE OF EXAM: 01/29/2020 COMPARISON: 08/25/2019 HISTORY: Syncope TECHNIQUE: 2 views FINDINGS: Heart is normal. Lungs are clear of consolidation. There are no hilar masses. There are parviz rnal wires. There are chest leads. Costophrenic angles are clear. Thoracic aorta is atheromatous. IMPRESSION: No active cardiopulmonary disease. There is improved inspiration compared to old exam. No rmal heart.
[2020-01-29 17:41] LABS: INR 1.1 (<1.2); Prothrombin Time 10.8 sec (9.0-12.0)
[2020-01-29 17:43] LABS: Partial Thromboplastin Time 21.7 sec (22.0-30.0)
[2020-01-29] MEDS ORDERED: MAGNESIUM SULFATE-D5W PMX 1 GM in DEXTROSE/WATER 1 100ML.BAG IVPB ONE (18:07)
[2020-01-29] MEDS ORDERED: NALOXONE 0.4 MG/ML 1 ML VIAL IV PRN (18:08)
[2020-01-29 18:24] LABS: Appearance,Urine Cloudy (Clear); Bacteria,Urine Few /hpf; Bilirubin,Urine Negative (Negative); Blood,Urine Negative (Negative); Color,Urine Yellow; Glucose,Urine (UA) Negative (Negative); Hyaline Casts,Urine 55 /lpf (0-2); Ketones,Urine Trace (Negative); Leukocyte Esterase,Urine Large (Negative); Mucus,Urine Rare /hpf; Nitrite,Urine Positive (Negative); PH, Urine 5.5 (5.0-8.0); Protein,Urine 1+ (Negative); RBC,Urine 2 /hpf (0-5); Squamous Epithelial Cell,Urine 6 /hpf (0-4); WBC,Urine 74 /hpf (0-5)
[2020-01-29] MEDS ORDERED: HYDROcodone/APAP 5-325MG 1 EACH TAB PO PRN (18:27)
[2020-01-29] MEDS ORDERED: HYDROmorphone 0.5 MG/0.5 ML SYRINGE IVP PRN (18:27)
[2020-01-29] MEDS: SODIUM CHLORIDE 0.9% 1,000 ML IV SCH ×2 (19:06→21:39)
--- NOTE | 2020-01-29 20:14 | HP ---
HISTORY AND PHYSICAL DATE OF SERVICE: 01/29/2020 CHIEF COMPLAINTS: Dizziness and syncope. HISTORY OF PRESENT ILLNESS: This 84-year-old woman with a past medical history of multiple medical problems, including history of CAD, history of CVA, TIA, history of diabetes mellitus, type 2, history of hypertension, hyperlipidemia, being followed by Dr. Ramirez in the outpatient setting, was recently admitted with acute bilateral foot infection and failure of outpatient treatment. The patient is on outpatient daptomycin and treatment. The patient went to the antibiotic center and the patient was feeling lightheaded and dizzy. The patient felt that she might pass out. Patient actually was taken to [facility] and was admitted for further evaluation. Patient was found to be dehydrated. There is no history of any fever, rigor or chills. No history of headache, loss of consciousness, seizures. PAST MEDICAL HISTORY: History of CAD, history of CVA, TIA, diabetes mellitus, type 2, GERD, hypertension, hyperlipidemia, history of DJD, history of foot ulcers. HOME MEDICATIONS: Home medications include Januvia, Apresoline, DiaBeta, Norvasc, vitamin C, biotin, omeprazole, Lopressor, Zestoretic, Synthroid, Neurontin, Vibramycin, cranberry, Plavix, Vitamin D3, Cubicin (daptomycin IV). Doses are reviewed. ALLERGIES: MULTIPLE ALLERGIES, including ASPIRIN, FISH, IODINATED CONTRAST DYE, SHELLFISH, BACTRIM DS. FAMILY HISTORY: History of cirrhosis in the family. SOCIAL HISTORY: No history of smoking. No history of alcohol intake. REVIEW OF SYSTEMS: ENT: Diminished hearing. Diminished vision. CARDIOVASCULAR SYSTEM: No angina, palpitations. RESPIRATORY SYSTEM: No cough, hemoptysis. GI: No nausea, vomiting. : No dysuria or retention. NERVOUS SYSTEM: As mentioned earlier. ALLERGY/IMMUNOLOGY: No asthma, hayfever. MUSCULOSKELETAL: As mentioned earlier. HEMATOLOGY/ONCOLOGY: No history of anemia. ENDOCRINE: As mentioned earlier. CONSTITUTIONAL: As mentioned earlier. DERMATOLOGY: Negative. RHEUMATOLOGY: Negative. PSYCHIATRY: As mentioned earlier. PHYSICAL EXAMINATION: Patient alert and oriented x3. Pulse is 66, blood pressure 117/55, respiration 18, temperature 98.6, pulse ox 98% on room air. HEENT: Conjunctivae normal. Oral mucosa moist. NECK: No jugular venous distention. No carotid bruit. No lymph node enlargement. CARDIOVASCULAR SYSTEM: S1, S2 muffled. RESPIRATORY SYSTEM: Breath sounds diminished at the bases. A few rhonchi. No crackles. ABDOMEN: Soft, non-tender. No mass palpable. LEGS: Bilateral foot ulcers. NERVOUS SYSTEM: Higher functions as mentioned earlier. Moves all 4 limbs. No focal motor or sensory deficit. LYMPHATICS: No lymph node palpable in neck, axillae or groin. SKIN: No ulcer, rash, bleeding. JOINTS: No active deforming arthropathy. LABS: WBC 6.6, hemoglobin 10.9, sodium 138, potassium 4.7. Creatinine is 1.19. UA noted; possible UTI. ASSESSMENT: 1. Syncope and dehydration. 2. Acute renal failure, prerenal acute tubular necrosis. 3. Change in mental status, metabolic encephalopathy, acute on chronic. 4. Hypomagnesemia. 5. Anemia, normocytic anemia of chronic disease. 6. Possible acute urinary tract infection. 7. Bilateral foot ulcers, on outpatient antibiotic treatment. 8. History of coronary artery disease. 9. Cerebrovascular accident, transient ischemic attack. 10.Diabetes mellitus, type 2. 11.Gastroesophageal reflux disease. 12.Hypertension. 13.Hyperlipidemia. 14.History of degenerative joint disease. 15.History of syncope. 16.History of hypothyroidism. 17.History of left arm and leg weakness secondary to cerebrovascular accident. 18.History of coronary artery disease, coronary artery bypass grafting. 19.FULL CODE. RECOMMENDATIONS AND DISCUSSION: In this 84-year-old woman who presented with multiple complex medical issues, we will monitor the patient closely, continue the current medications. Continue symptomatic treatment. Continue the broad-spectrum IV antibiotics. Cultures. IV fluids. Monitor electrolytes closely and correct them. Otherwise, infectious disease evaluation. Home medication will be reordered. Prognosis guarded because of the multiple complex medical issues. Further recommendations to follow. A copy of this dictation is being forwarded to Dr. Ramirez, who is the primary physician. MMODL / IJN: [id number] /
[2020-01-29 20:16] LABS: Glucose,Whole Blood 101 mg/dL (75-99)
[2020-01-29] MEDS: hydrALAZINE HCL 50 MG TAB PO SCH (20:35)
[2020-01-29] MEDS: METOPROLOL TARTRATE 50 MG TAB PO SCH (20:35)
[2020-01-29] MEDS: LISINOPRIL-HCTZ 20-12.5 MG 1 EACH TAB PO SCH (20:35)
[2020-01-29] MEDS: GABAPENTIN 300 MG CAP PO SCH (20:35)
[2020-01-29] MEDS: HEPARIN SODIUM,PORCINE 5,000 UNIT/ML 1 ML VIAL SQ SCH (20:36)
[2020-01-29] MEDS: DOXYCYCLINE 100 MG CAP PO SCH (20:36)
[2020-01-29] MEDS ORDERED: ATORVASTATIN 40 MG TAB PO SCH (21:00)
[2020-01-30] MEDS: PANTOPRAZOLE 40 MG TABLET PO SCH (06:15)
[2020-01-30] MEDS: LEVOTHYROXINE 50 MCG TAB PO SCH (06:15)
[2020-01-30] MEDS: glipiZIDE 10 MG TAB PO SCH ×2 (06:16→17:03)
[2020-01-30 06:56] LABS: Basophils % (A) 0 %; Eosinophils # (A) 0.2 k/uL (0-0.7); Eosinophils % (A) 3 %; HCT 32.4 % (34.0-46.0); HGB 10.9 gm/dL (11.4-16.0); Lymphocytes % (A) 18 %; MCH 30.4 pg (25.0-35.0); MCHC 33.7 g/dL (31.0-37.0); MCV 90.1 fL (80.0-100.0); Mean Platelet Volume 8.2; Monocytes # (A) 0.3 k/uL (0-1.0); Monocytes % (A) 5 %; Neutrophils % (A) 71 %; Platelet Count 194 k/uL (150-450); RDW 14.2 % (11.5-15.5); WBC 5.6 k/uL (3.8-10.6)
[2020-01-30 07:13] LABS: Calcium 8.7 mg/dL (8.4-10.2); Magnesium 1.5 mg/dL (1.6-2.3); Potassium 4.6 mmol/L (3.5-5.1)
[2020-01-30] MEDS ORDERED: NON FORMULARY DRUG (Omeprazole 20 MG) PO SCH (07:30)
[2020-01-30 07:31] LABS: Glucose,Whole Blood 147 mg/dL (75-99)
[2020-01-30] MEDS: METOPROLOL TARTRATE 50 MG TAB PO SCH ×2 (08:11→20:12)
[2020-01-30] MEDS: amLODIPine 10 MG TAB PO SCH (08:11)
[2020-01-30] MEDS: LINAGLIPTIN 5 MG TABLET PO SCH ×2 (08:11→08:21)
[2020-01-30] MEDS: GABAPENTIN 300 MG CAP PO SCH ×2 (08:12→20:13)
[2020-01-30] MEDS: hydrALAZINE HCL 50 MG TAB PO SCH ×3 (08:12→20:13)
[2020-01-30] MEDS: HEPARIN SODIUM,PORCINE 5,000 UNIT/ML 1 ML VIAL SQ SCH ×2 (08:12→20:13)
[2020-01-30] MEDS: CLOPIDOGREL 75 MG TAB PO SCH (08:12)
[2020-01-30] MEDS: DOXYCYCLINE 100 MG CAP PO SCH ×2 (08:12→20:13)
[2020-01-30] MEDS: LISINOPRIL-HCTZ 20-12.5 MG 1 EACH TAB PO SCH ×2 (08:13→20:13)
[2020-01-30] MEDS ORDERED: NON FORMULARY DRUG (Cranberry 4200mg 4,200 MG) PO SCH (09:00)
[2020-01-30] MEDS ORDERED: DAPTOmycin 500 MG VIAL IV SCH (09:00)
[2020-01-30 11:06] LABS: Glucose,Whole Blood 133 mg/dL (75-99)
[2020-01-30] MEDS ORDERED: Magnesium Replacement Protocol 1 EACH MISC MISCELLANE PRN (13:18)
[2020-01-30] MEDS: MAGNESIUM SULFATE-D5W PMX 1 GM in DEXTROSE/WATER 1 100ML.BAG IVPB SCH ×2 (14:22→16:25)
[2020-01-30] MEDS: SODIUM CHLORIDE 0.9% 1,000 ML IV SCH (16:25)
[2020-01-30 16:54] LABS: Glucose,Whole Blood 164 mg/dL (75-99)
[2020-01-30 20:10] LABS: Glucose,Whole Blood 151 mg/dL (75-99)
[2020-01-31] MEDS: SODIUM CHLORIDE 0.9% 1,000 ML IV SCH ×2 (05:37→13:13)
[2020-01-31 06:02] LABS: Glucose,Whole Blood 116 mg/dL (75-99)
[2020-01-31] MEDS: glipiZIDE 10 MG TAB PO SCH (06:25)
[2020-01-31] MEDS: PANTOPRAZOLE 40 MG TABLET PO SCH (06:25)
--- NOTE | 2020-01-31 06:53 | P.PN ---
Subjective Progress Note Date: 01/30/20 Principal diagnosis: This is an 84-year-old female who was recently admitted for dehydration and is being closely monitored. Patient was apparantly at the wound center to receive I V antibiotic infusion and felt dizzy and lightheaded as though she may pass out and was brought to the emergency department to be evaluated. Patient creatinine has slightly improved and is currently 1.03 with a BUN of 21. Sodium is 139. Magnesium found to be low at 1.5 and will be replaced. Will repeat am labs and monitor closely. Infectious disease consulted and pending at this time for bilateral foot wounds and continued IV antibiotic therapy. PT/OT to evaluate the patient as well. Currently no reports of chest pain, shortness of breath, or palpitations. Patient is afebrile. No reports of nausea or vomiting and patient is tolerating diet. Objective - Vital Signs Vital signs: Vital Signs Temp 98.1 F 01/30/20 08:00 Pulse 60 01/30/20 12:00 Resp 18 01/30/20 12:00 BP 163/77 01/30/20 12:00 Pulse Ox 98 01/30/20 12:00 Intake & Output 01/29/20 01/30/20 01/30/20 18:59 06:59 18:59 Intake Total 900 420 Balance 900 420 Weight 63.503 kg 67.9 kg Intake: Intake, IV Titration 900 Amount DAPTOmycin 400 mg In 100 Sodium Chloride 0.9% 50 ml @ 100 mls/hr IVPB Q24H [facility] Rx#:[id number] Magnesium Sulfate-D5w Pmx 100 1 gm In Dextrose/Water 1 100ml.bag @ 100 mls/hr IVPB ONCE ONE Rx#: [id number] Sodium Chloride 0.9% 1, 700 000 ml @ 100 mls/hr IV . Q10H [facility] Rx#:[id number] Oral 420 Other: Voiding Method Toilet # Voids 2 3 # Bowel Movements 0 - Exam Gen: This is a 84-year-old female currently sitting up in the chair, awake, alert and oriented 3, well-developed, well-nourished. Temp is 98.1F, pulse is 62, respirations are 18, blood pressure is 164/68, oxygen saturation is 99% on room air. HEENT: Head is atraumatic, normocephalic. Pupils equal, round. Sclerae is anicteric. NECK: Supple. No JVD. No lymphadenopathy. No thyromegaly. LUNGS: Breath sounds diminished bilaterally with a few scattered rhonchi noted. No intercostal retractions. HEART: S1, S2 are muffled ABDOMEN: Soft. Bowel sounds are present. No masses. No tenderness. EXTREMITIES: No pedal edema. No calf tenderness. Bilateral foot ulcers noted NEUROLOGICAL: Patient is awake, alert and oriented x3. Cranial nerves 2 through 12 are grossly intact. - Labs CBC & Chem 7: 01/30/20 06:35 01/30/20 06:35 Labs: Abnormal Lab Results - Last 24 Hours (Table) 01/29/20 01/29/20 01/29/20 Range/Units 16:52 17:11 17:11 RBC 3.66 L (3.80-5.40) m/uL Hgb 10.9 L (11.4-16.0) gm/dL Hct 33.2 L (34.0-46.0) % Lymphocytes # 0.9 L (1.0-4.8) k/uL APTT 21.7 L (22.0-30.0) sec Chloride (98-107) mmol/L Carbon Dioxide (22-30) mmol/L BUN (7-17) mg/dL Creatinine (0.52-1.04) mg/dL Glucose (74-99) mg/dL POC Glucose (mg/dL) 120 H (75-99) mg/dL Magnesium (1.6-2.3) mg/dL AST (14-36) U/L Creatine Kinase (30-135) U/L Urine Appearance (Clear) Urine Protein (Negative) Urine Ketones (Negative) Urine Nitrite (Negative) Ur Leukocyte Esterase (Negative) Urine WBC (0-5) /hpf Urine WBC Clumps (None) /hpf Ur Squamous Epith Cells (0-4) /hpf Urine Bacteria (None) /hpf Hyaline Casts (0-2) /lpf Urine Mucus (None) /hpf 01/29/20 01/29/20 01/29/20 Range/Units 17:11 17:58 20:14 RBC (3.80-5.40) m/uL Hgb (11.4-16.0) gm/dL Hct (34.0-46.0) % Lymphocytes # (1.0-4.8) k/uL APTT (22.0-30.0) sec Chloride 108 H (98-107) mmol/L Carbon Dioxide 21 L (22-30) mmol/L BUN 27 H (7-17) mg/dL Creatinine 1.19 H (0.52-1.04) mg/dL Glucose 122 H (74-99) mg/dL POC Glucose (mg/dL) 101 H (75-99) mg/dL Magnesium 1.3 L (1.6-2.3) mg/dL AST 40 H (14-36) U/L Creatine Kinase 462 H (30-135) U/L Urine Appearance Cloudy H (Clear) Urine Protein 1+ H (Negative) Urine Ketones Trace H (Negative) Urine Nitrite Positive H (Negative) Ur Leukocyte Esterase Large H (Negative) Urine WBC 74 H (0-5) /hpf Urine WBC Clumps Few H (None) /hpf Ur Squamous Epith Cells 6 H (0-4) /hpf Urine Bacteria Few H (None) /hpf Hyaline Casts 55 H (0-2) /lpf Urine Mucus Rare H (None) /hpf 01/30/20 01/30/20 01/30/20 Range/Units 06:35 06:35 07:29 RBC 3.60 L (3.80-5.40) m/uL Hgb 10.9 L (11.4-16.0) gm/dL Hct 32.4 L (34.0-46.0) % Lymphocytes # (1.0-4.8) k/uL APTT (22.0-30.0) sec Chloride 111 H (98-107) mmol/L Carbon Dioxide (22-30) mmol/L BUN 21 H (7-17) mg/dL Creatinine (0.52-1.04) mg/dL Glucose 143 H (74-99) mg/dL POC Glucose (mg/dL) 147 H (75-99) mg/dL Magnesium 1.5 L (1.6-2.3) mg/dL AST (14-36) U/L Creatine Kinase (30-135) U/L Urine Appearance (Clear) Urine Protein (Negative) Urine Ketones (Negative) Urine Nitrite (Negative) Ur Leukocyte Esterase (Negative) Urine WBC (0-5) /hpf Urine WBC Clumps (None) /hpf Ur Squamous Epith Cells (0-4) /hpf Urine Bacteria (None) /hpf Hyaline Casts (0-2) /lpf Urine Mucus (None) /hpf 01/30/20 Range/Units 11:04 RBC (3.80-5.40) m/uL Hgb (11.4-16.0) gm/dL Hct (34.0-46.0) % Lymphocytes # (1.0-4.8) k/uL APTT (22.0-30.0) sec Chloride (98-107) mmol/L Carbon Dioxide (22-30) mmol/L BUN (7-17) mg/dL Creatinine (0.52-1.04) mg/dL Glucose (74-99) mg/dL POC Glucose (mg/dL) 133 H (75-99) mg/dL Magnesium (1.6-2.3) mg/dL AST (14-36) U/L Creatine Kinase (30-135) U/L Urine Appearance (Clear) Urine Protein (Negative) Urine Ketones (Negative) Urine Nitrite (Negative) Ur Leukocyte Esterase (Negative) Urine WBC (0-5) /hpf Urine WBC Clumps (None) /hpf Ur Squamous Epith Cells (0-4) /hpf Urine Bacteria (None) /hpf Hyaline Casts (0-2) /lpf Urine Mucus (None) /hpf Assessment and Plan Assessment: Syncope and dehydration Acute renal failure, prerenal acute tubular necrosis Change in mental status, metabolic encephalopathy, acute on chronic Hypomagnesemia Anemia, normocytic anemia of chronic disease Possible acute urinary tract infection Bilateral foot ulcers, on outpatient antibiotic treatment History of coronary artery disease CVA, TIA Diabetes mellitus type 2 Gastroesophageal reflux disease Hypertension Hyperlipidemia History of degenerative joint disease History of syncope History of hypothyroidism History of left arm and leg weakness secondary to CVA History of coronary artery disease, CABG Full code Recommendations and discussion: Recommend to continue current medications, management, and symptomatic treatment. Infectious disease consulted for bilateral foot ulcers and continued IV antibiotic therapy. Will continue with gentle IV hydration and electrolyte replacement. Will repeat am labs. PT/OT to evaluate the patient. Further recommendations to follow.
[2020-01-31 07:15] LABS: Basophils % (A) 1 %; Eosinophils # (A) 0.2 k/uL (0-0.7); Eosinophils % (A) 3 %; HCT 34.2 % (34.0-46.0); Lymphocytes # (A) 1.2 k/uL (1.0-4.8); Lymphocytes % (A) 18 %; MCH 28.7 pg (25.0-35.0); MCHC 32.1 g/dL (31.0-37.0); MCV 89.3 fL (80.0-100.0); Mean Platelet Volume 8.4; Monocytes # (A) 0.3 k/uL (0-1.0); Monocytes % (A) 5 %; Neutrophils # (A) 4.7 k/uL (1.3-7.7); Neutrophils % (A) 72 %; Platelet Count 193 k/uL (150-450); RBC 3.83 m/uL (3.80-5.40); RDW 14.2 % (11.5-15.5); WBC 6.6 k/uL (3.8-10.6)
[2020-01-31 07:26] LABS: Calcium 8.9 mg/dL (8.4-10.2); Magnesium 1.6 mg/dL (1.6-2.3); Potassium 4.6 mmol/L (3.5-5.1)
--- NOTE | 2020-01-31 07:29 | P.CONS ---
History of Present Illness - Reason for Consult Consult date: 01/30/20 Right second toe osteomyelitis Requesting physician: Cheo Ochoa - Chief Complaint Weakness and almost passed out x one day - History of Present Illness Patient is 84-year-old female well known to my service as the patient to follow with us in outpatient setting she was recently diagnosed with right second toe chronic nonhealing wound with underlying osteomyelitis wound culture were positive for Staphylococcus epidermidis patient failed to respond to outpatient oral antibiotics subsequently the patient did get a PICC line and is currently getting daptomycin in the infusion clinic and so far has received 23 doses, yesterday at the end of the infusion patient was noticed to be weak and lethargic did have a low blood pressure and concerned the patient may passed out for the patient was sent to the [facility] ER for evaluation on around the the patient has been afebrile she was noticed to have elevated BUN and creatinine and no medication however CPK were 400 patient has been admitted to the hospital for possible dehydration and interpreted abnormality patient was continued on daptomycin and infection disease was consulted for further management of antibiotic therapy At the time my evaluation today the patient is afebrile patient is feeling better compared to yesterday patient denies having any generalized body aches no headache nor URI symptoms and no nausea no vomiting no problem. Patient denies having any pain in her right second toe wound is currently healed and there is no drainage Review of Systems Positive point has been mentioned in the HPI rest of the systems are negative Past Medical History Past Medical History: Coronary Artery Disease (CAD), Chest Pain / Angina, CVA/TIA, Diabetes Mellitus, Eye Disorder, GERD/Reflux, Hyperlipidemia, Hypertension, Osteoarthritis (OA), Skin Disorder, Syncope, Thyroid Disorder Additional Past Medical History / Comment(s): CVA-1996 - arm, leg mild weakness, dysphagia, esophageal strictures w/ dilations, hiatal hernia, chronic pain syndrome (generalized pain), peripheral neuropathy, bilat CTS, anemia, Diabetic Retinopathy, blind in R eye, UTIs, urinatry leakage, uses walker. Wound Rt 2nd toe. 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 Past Anesthesia/Blood Transfusion Reactions: Motion Sickness, Postoperative Nausea & Vomiting (PONV) Past Psychological History: No Psychological Hx Reported Additional Psychological History / Comment(s): Pt resides with her spouse who has dementia at home. She states she needs to place spouse somewhere-he is too much for her to care for anymore. She uses a walker to ambulate. She has a cane and wheelchair, shower chair, glucometer and blood pressure machine. She is thinking about getting MOW. Her spouse let the cleaning lady go-she hopes to re-establish. Smoking Status: Never smoker Past Alcohol Use History: None Reported Past Drug Use History: None Reported - Past Family History Father Family Medical History: Liver Disease Additional Family Medical History / Comment(s): Father of cirrhosis. He was a drinker. Mother Family Medical History: Unable to Obtain Additional Family Medical History / Comment(s): Pt states she does not know her mother's medical history. Son(s) Family Medical History: Unable to Obtain, Renal Disease Daughter(s) Family Medical History: Cancer Medications and Allergies Home Medications Medication Instructions Recorded Confirmed Type Levothyroxine Sodium [Synthroid] 50 mcg PO DAILY 01/07/17 01/29/20 History Clopidogrel [Plavix] 75 mg PO DAILY 05/24/19 01/29/20 History glyBURIDE [Diabeta] 5 mg PO AC-BID 05/24/19 01/29/20 History Metoprolol Tartrate [Lopressor] 50 mg PO BID #60 tab 06/22/19 01/29/20 Rx Lisinopril-Hctz 20-12.5 mg 1 tab PO BID 08/20/19 01/29/20 History [Zestoretic 20-12.5] amLODIPine [Norvasc] 10 mg PO DAILY 30 Days #30 tab 08/26/19 01/29/20 Rx hydrALAZINE HCL [Apresoline] 50 mg PO TID 30 Days #90 tab 08/26/19 01/29/20 Rx Cholecalciferol [Vitamin D3 (25 2,000 unit PO DAILY 01/06/20 01/29/20 History Mcg = 1000 Iu)] Doxycycline Hyclate [Vibramycin] 100 mg PO BID 01/06/20 01/29/20 History Gabapentin [Neurontin] 300 mg PO BID 01/06/20 01/29/20 History Omeprazole [PriLOSEC] 20 mg PO AC-BRKFST 01/06/20 01/29/20 History Vitamin C/Biotin [Hair, Skin and 1 tab PO DAILY 01/06/20 01/29/20 History Nails] sitaGLIPtin [Januvia] 50 mg PO DAILY 01/06/20 01/29/20 History Cranberry 4200mg 4,200 mg PO DAILY 01/29/20 01/29/20 History DAPTOmycin [Cubicin] 400 mg IV DAILY 01/29/20 01/29/20 History Allergies Allergy/AdvReac Type Severity Reaction Status Date / Time aspirin Allergy Rash/Hives Verified 01/29/20 18:14 fish derived Allergy Rash/Hives Verified 01/29/20 18:14 Iodinated Contrast Media Allergy Rash/Hives Verified 01/29/20 18:14 [Iodinated Contrast Media - IV Dye] Iodine and Iodide Containing Allergy Rash/Hives Verified 01/29/20 18:14 Produc shellfish derived [Shellfish] Allergy Rash/Hives Verified 01/29/20 18:14 sulfamethoxazole Allergy Itching Verified 01/29/20 18:14 [From Bactrim] trimethoprim [From Bactrim] Allergy Itching Verified 01/29/20 18:14 Physical Exam Vitals: Vital Signs Temp Pulse Pulse Resp BP BP Pulse Ox 01/30/20 12:00 60 18 163/77 98 01/30/20 08:00 98.1 F 62 18 164/68 99 01/30/20 03:53 98.2 F 60 18 129/62 100 01/30/20 00:29 97.9 F 50 L 18 147/66 97 01/29/20 20:41 98.1 F 65 18 174/78 100 01/29/20 19:56 98.1 F 65 18 174/78 100 01/29/20 18:40 98.6 F 61 16 158/77 100 01/29/20 16:18 98.6 F 66 18 117/55 98 Intake and Output 01/29/20 01/30/20 01/30/20 22:59 06:59 14:59 Intake Total 100 800 420 Balance 100 800 420 Intake: Intake, IV Titration 100 800 Amount DAPTOmycin 400 mg In 100 Sodium Chloride 0.9% 50 ml @ 100 mls/hr IVPB Q24H [facility] Rx#:[id number] Magnesium Sulfate-D5w Pmx 100 1 gm In Dextrose/Water 1 100ml.bag @ 100 mls/hr IVPB ONCE ONE Rx#: [id number] Sodium Chloride 0.9% 1, 700 000 ml @ 100 mls/hr IV . Q10H [facility] Rx#:[id number] Oral 420 Other: Voiding Method Toilet # Voids 2 3 # Bowel Movements 0 Weight 63.503 kg 67.9 kg GENERAL DESCRIPTION: Elderly female up in the chair ,no distress. No tachypnea or accessory muscle of respiration use. HEENT: Shows Pallor , no scleral icterus. Oral mucous membrane is dry. No pharyngeal erythema or thrush NECK: Trachea central, no thyromegaly. LUNGS: Unlabored breathing. Clear to auscultation anteriorly. No wheeze or crackle. HEART: S1, S2, regular rate and rhythm. No loud murmur ABDOMEN: Soft, no tenderness , guarding or rigidity, no organomegaly EXTREMITIES: No edema of feet. Right second toe wound is currently healed swelling and redness has decreased there is no drainage SKIN: No rash, no masses palpable. NEUROLOGICAL: The patient is awake, alert, oriented x3, mood and affect normal. Results CBC & Chem 7: 01/31/20 06:06 01/30/20 06:35 Labs: Abnormal Lab Results - Last 24 Hours (Table) 01/29/20 01/29/20 01/29/20 Range/Units 16:52 17:11 17:11 RBC 3.66 L (3.80-5.40) m/uL Hgb 10.9 L (11.4-16.0) gm/dL Hct 33.2 L (34.0-46.0) % Lymphocytes # 0.9 L (1.0-4.8) k/uL APTT 21.7 L (22.0-30.0) sec Chloride (98-107) mmol/L Carbon Dioxide (22-30) mmol/L BUN (7-17) mg/dL Creatinine (0.52-1.04) mg/dL Glucose (74-99) mg/dL POC Glucose (mg/dL) 120 H (75-99) mg/dL Magnesium (1.6-2.3) mg/dL AST (14-36) U/L Creatine Kinase (30-135) U/L Urine Appearance (Clear) Urine Protein (Negative) Urine Ketones (Negative) Urine Nitrite (Negative) Ur Leukocyte Esterase (Negative) Urine WBC (0-5) /hpf Urine WBC Clumps (None) /hpf Ur Squamous Epith Cells (0-4) /hpf Urine Bacteria (None) /hpf Hyaline Casts (0-2) /lpf Urine Mucus (None) /hpf 01/29/20 01/29/20 01/29/20 Range/Units 17:11 17:58 20:14 RBC (3.80-5.40) m/uL Hgb (11.4-16.0) gm/dL Hct (34.0-46.0) % Lymphocytes # (1.0-4.8) k/uL APTT (22.0-30.0) sec Chloride 108 H (98-107) mmol/L Carbon Dioxide 21 L (22-30) mmol/L BUN 27 H (7-17) mg/dL Creatinine 1.19 H (0.52-1.04) mg/dL Glucose 122 H (74-99) mg/dL POC Glucose (mg/dL) 101 H (75-99) mg/dL Magnesium 1.3 L (1.6-2.3) mg/dL AST 40 H (14-36) U/L Creatine Kinase 462 H (30-135) U/L Urine Appearance Cloudy H (Clear) Urine Protein 1+ H (Negative) Urine Ketones Trace H (Negative) Urine Nitrite Positive H (Negative) Ur Leukocyte Esterase Large H (Negative) Urine WBC 74 H (0-5) /hpf Urine WBC Clumps Few H (None) /hpf Ur Squamous Epith Cells 6 H (0-4) /hpf Urine Bacteria Few H (None) /hpf Hyaline Casts 55 H (0-2) /lpf Urine Mucus Rare H (None) /hpf 01/30/20 01/30/20 01/30/20 Range/Units 06:35 06:35 07:29 RBC 3.60 L (3.80-5.40) m/uL Hgb 10.9 L (11.4-16.0) gm/dL Hct 32.4 L (34.0-46.0) % Lymphocytes # (1.0-4.8) k/uL APTT (22.0-30.0) sec Chloride 111 H (98-107) mmol/L Carbon Dioxide (22-30) mmol/L BUN 21 H (7-17) mg/dL Creatinine (0.52-1.04) mg/dL Glucose 143 H (74-99) mg/dL POC Glucose (mg/dL) 147 H (75-99) mg/dL Magnesium 1.5 L (1.6-2.3) mg/dL AST (14-36) U/L Creatine Kinase (30-135) U/L Urine Appearance (Clear) Urine Protein (Negative) Urine Ketones (Negative) Urine Nitrite (Negative) Ur Leukocyte Esterase (Negative) Urine WBC (0-5) /hpf Urine WBC Clumps (None) /hpf Ur Squamous Epith Cells (0-4) /hpf Urine Bacteria (None) /hpf Hyaline Casts (0-2) /lpf Urine Mucus (None) /hpf 01/30/20 Range/Units 11:04 RBC (3.80-5.40) m/uL Hgb (11.4-16.0) gm/dL Hct (34.0-46.0) % Lymphocytes # (1.0-4.8) k/uL APTT (22.0-30.0) sec Chloride (98-107) mmol/L Carbon Dioxide (22-30) mmol/L BUN (7-17) mg/dL Creatinine (0.52-1.04) mg/dL Glucose (74-99) mg/dL POC Glucose (mg/dL) 133 H (75-99) mg/dL Magnesium (1.6-2.3) mg/dL AST (14-36) U/L Creatine Kinase (30-135) U/L Urine Appearance (Clear) Urine Protein (Negative) Urine Ketones (Negative) Urine Nitrite (Negative) Ur Leukocyte Esterase (Negative) Urine WBC (0-5) /hpf Urine WBC Clumps (None) /hpf Ur Squamous Epith Cells (0-4) /hpf Urine Bacteria (None) /hpf Hyaline Casts (0-2) /lpf Urine Mucus (None) /hpf Assessment and Plan Assessment: 1- patient with a recent diagnosis of right second toe Osteomyelitis with a chronic nonhealing wound to the right second toe dorsal aspect , with outpatient culture positive for Staphylococcus epidermidis and this patient had shown clinical response to the outpatient IV antibiotic therapy of daptomycin, admitted to the hospital possible dehydration and electrolyte abnormality in this patient currently with no evidence of any infection at the end of the side of the body (1) Toe osteomyelitis, right Current Visit: Yes Status: Acute Code(s): M86.9 - OSTEOMYELITIS, UNSPECIFIED SNOMED Code(s): 482583946 Plan: 1- daptomycin 400 mg IVPB daily to continue while inpatient and will be resumed once on discharge to finish a 6 week course of therapy 2- IV fluid We will follow on clinical condition and cultures to further adjust medication if needed Thank you for this consultation will follow this patient with you Time with Patient: Greater than 30
[2020-01-31] MEDS: LISINOPRIL-HCTZ 20-12.5 MG 1 EACH TAB PO SCH (08:40)
[2020-01-31] MEDS: DOXYCYCLINE 100 MG CAP PO SCH (08:40)
[2020-01-31] MEDS: amLODIPine 10 MG TAB PO SCH (08:40)
[2020-01-31] MEDS: LINAGLIPTIN 5 MG TABLET PO SCH (08:40)
[2020-01-31] MEDS: hydrALAZINE HCL 50 MG TAB PO SCH (08:40)
[2020-01-31] MEDS: CLOPIDOGREL 75 MG TAB PO SCH (08:40)
[2020-01-31] MEDS: METOPROLOL TARTRATE 50 MG TAB PO SCH (08:40)
[2020-01-31] MEDS: GABAPENTIN 300 MG CAP PO SCH (08:40)
[2020-01-31] MEDS: HEPARIN SODIUM,PORCINE 5,000 UNIT/ML 1 ML VIAL SQ SCH (08:41)
[2020-01-31 12:05] LABS: Glucose,Whole Blood 185 mg/dL (75-99)
[2020-01-31] MEDS ORDERED: MAGNESIUM OXIDE 400 MG TAB PO STA (12:21)
[2020-01-31 13:12] VITALS: BP 161/66; PULSE 57; RESP 18; TEMP 98.1
--- NOTE | 2020-01-31 15:25 | PN ---
PROGRESS NOTE DATE OF SERVICE: 01/31/2020 REASON FOR FOLLOWUP: Right second toe osteomyelitis. INTERVAL HISTORY: Patient is currently afebrile. The patient is breathing comfortably. Overall feeling better. Denies having any chest pain. No shortness of breath or cough. No abdominal pain. No diarrhea. PHYSICAL EXAMINATION: Blood pressure 161/66, pulse of 57, temperature 98.1 she is 96% we description is an elderly female up in the room in no distress respiratory system: Unlabored breathing clear to auscultation anteriorly heart S1, S2. Regular rate and rhythm. ABDOMEN: Soft, no tenderness. LABS: BUN of 22, creatinine 1.04. Hemoglobin is 11.9, white count 6.6. DIAGNOSTIC IMPRESSION AND PLAN: Patient with right second toe osteomyelitis. The patient has been receiving daptomycin in the outpatient setting and has responded to it with overall healing of her wound. Admitted to the hospital more likely because of dehydration and hypomagnesemia. Plan will be to continue with daptomycin in the outpatient setting in her 6-week course of therapy. Continue supportive care. MMODL / IJN: [id number] /
--- NOTE | 2020-02-03 09:01 | P.DS ---
Providers Date of admission: 01/29/20 18:08 Expected date of discharge: 02/03/20 Attending physician: Cheo Ochoa Consults: 01/29/20 18:27 Consult Physician Routine Consulting Provider: Maicol Rivero Consult Reason/Comments: foot infection Do you want consulting provider notified?: Yes Primary care physician: [facility] Course: Final diagnosis Syncope and dehydration Acute renal failure, prerenal acute tubular necrosis Change in mental status, metabolic encephalopathy, acute on chronic Hypomagnesemia Anemia, normocytic anemia of chronic disease Possible acute urinary tract infection Bilateral foot ulcers, on outpatient antibiotic treatment History of coronary artery disease CVA, TIA Diabetes mellitus type 2 Gastroesophageal reflux disease Hypertension Hyperlipidemia History of degenerative joint disease History of syncope History of hypothyroidism History of left arm and leg weakness secondary to CVA History of coronary artery disease, CABG Full code Discharge disposition Patient is being discharged in a stable condition with guarded prognosis to home. Patient will follow-up with in the outpatient setting upon discharge. Patient also instructed to follow-up with ENT Dr. Jj in the outpatient setting. Total time taken is greater than 35 minutes. History of present illness This is a 84-year-old female who was recently admitted with dehydration and was being closely monitored. Patient was apparently at the infusion center awaiting to receive IV antibiotic infusion for chronic bilateral feet wounds and became dizzy and lightheaded like she was given a pass out. Patient was brought to the ER for further evaluation and admitted. Patient's liver functions were slightly elevated and magnesium was low. Electrolyte were replaced and patient significantly improved. Patient currently has a PICC line for IV antibiotic therapy in the outpatient setting and will continue with this treatment plan upon discharge. Currently no reports of chest pain, shortness of breath, or palpitations. Patient is afebrile. No reports of nausea or vomiting and patient is tolerating diet. Gait is steady. On exam vital signs are stable. Temp is 98.1F, pulse is 57, respirations are 18, blood pressure is 161/66, oxygen saturation is 96% on room air. Cardio S1, S2 are muffled. Respiratory system shows diminished breath sounds at the bases with no wheezing or rhonchi noted. Abdomen is soft and obese, and nontender. Nervous system shows no focal deficits. Please refer to medication reconciliation sheet for a list of medications. Patient Condition at Discharge: Fair Plan - Discharge Summary Discharge Rx Participant: No New Discharge Prescriptions: Continue Levothyroxine Sodium [Synthroid] 50 mcg PO DAILY glyBURIDE [Diabeta] 5 mg PO AC-BID Clopidogrel [Plavix] 75 mg PO DAILY Metoprolol Tartrate [Lopressor] 50 mg PO BID #60 tab Lisinopril-Hctz 20-12.5 mg [Zestoretic 20-12.5] 1 tab PO BID hydrALAZINE HCL [Apresoline] 50 mg PO TID 30 Days #90 tab amLODIPine [Norvasc] 10 mg PO DAILY 30 Days #30 tab Vitamin C/Biotin [Hair, Skin and Nails] 1 tab PO DAILY Cholecalciferol [Vitamin D3 (25 Mcg = 1000 Iu)] 2,000 unit PO DAILY sitaGLIPtin [Januvia] 50 mg PO DAILY Omeprazole [PriLOSEC] 20 mg PO AC-BRKFST Gabapentin [Neurontin] 300 mg PO BID Doxycycline Hyclate [Vibramycin] 100 mg PO BID DAPTOmycin [Cubicin] 400 mg IV DAILY Cranberry 4200mg 4,200 mg PO DAILY Discharge Medication List Levothyroxine Sodium [Synthroid] 50 mcg PO DAILY 01/07/17 [History] Clopidogrel [Plavix] 75 mg PO DAILY 05/24/19 [History] glyBURIDE [Diabeta] 5 mg PO AC-BID 05/24/19 [History] Metoprolol Tartrate [Lopressor] 50 mg PO BID #60 tab 06/22/19 [Rx] Lisinopril-Hctz 20-12.5 mg [Zestoretic 20-12.5] 1 tab PO BID 08/20/19 [History] amLODIPine [Norvasc] 10 mg PO DAILY 30 Days #30 tab 08/26/19 [Rx] hydrALAZINE HCL [Apresoline] 50 mg PO TID 30 Days #90 tab 08/26/19 [Rx] Cholecalciferol [Vitamin D3 (25 Mcg = 1000 Iu)] 2,000 unit PO DAILY 01/06/20 [History] Doxycycline Hyclate [Vibramycin] 100 mg PO BID 01/06/20 [History] Gabapentin [Neurontin] 300 mg PO BID 01/06/20 [History] Omeprazole [PriLOSEC] 20 mg PO AC-BRKFST 01/06/20 [History] Vitamin C/Biotin [Hair, Skin and Nails] 1 tab PO DAILY 01/06/20 [History] sitaGLIPtin [Januvia] 50 mg PO DAILY 01/06/20 [History] Cranberry 4200mg 4,200 mg PO DAILY 01/29/20 [History] DAPTOmycin [Cubicin] 400 mg IV DAILY 01/29/20 [History] Follow up Appointment(s)/Referral(s): Esvin Ramirez DO [Primary Care Provider] - 1-2 days MID,Infusion [NON-STAFF] - 02/01/20 10:00 am (Continue with outpatient Antibiotics at the [place] [id number] [facility]. [address] ) Ambulatory/Diagnostic Orders: Basic Metabolic Panel [LAB.AMB] Time Frame: 3 Days, Location: None Selected Patient Instructions/Handouts: Dehydration (DC), Hypomagnesemia (DC) Activity/Diet/Wound Care/Special Instructions: Activity limited until follow up follow up with infusion center for continued IV abx therapy continue current diet encourage fluids repeat labs in 2-3 days. Discharge Disposition: HOME SELF-CARE
== END 2020-01-31 13:39 | disposition home or self-care (01) | DRG 682 ==
LOC: EC 16:07 → 3SCARD 18:08
PROVIDERS: ADMIT Hospitalist; ATTEND Hospitalist
DX: N17.0 Acute kidney failure with tubular necrosis (principal); G93.41 Metabolic encephalopathy; M62.82 Rhabdomyolysis; M86.9 Osteomyelitis, unspecified; L97.516 Non-pressure chronic ulcer of other part of right foot with bone involvement without evidence of necrosis; Z11.59 Encounter for screening for other viral diseases; L97.529 Non-pressure chronic ulcer of other part of left foot with unspecified severity; D63.8 Anemia in other chronic diseases classified elsewhere; E11.319 Type 2 diabetes mellitus with unspecified diabetic retinopathy without macular edema; E11.42 Type 2 diabetes mellitus with diabetic polyneuropathy; I95.9 Hypotension, unspecified; E11.69 Type 2 diabetes mellitus with other specified complication; E11.621 Type 2 diabetes mellitus with foot ulcer; E83.42 Hypomagnesemia; E86.0 Dehydration; K21.9 Gastro-esophageal reflux disease without esophagitis; I25.10 Atherosclerotic heart disease of native coronary artery without angina pectoris; I10 Essential (primary) hypertension; E78.5 Hyperlipidemia, unspecified; M19.90 Unspecified osteoarthritis, unspecified site; H54.61 Unqualified visual loss, right eye, normal vision left eye; G89.4 Chronic pain syndrome; G56.03 Carpal tunnel syndrome, bilateral upper limbs; E03.9 Hypothyroidism, unspecified; R40.2362 Coma scale, best motor response, obeys commands, at arrival to emergency department; R40.2142 Coma scale, eyes open, spontaneous, at arrival to emergency department; R40.2252 Coma scale, best verbal response, oriented, at arrival to emergency department; K44.9 Diaphragmatic hernia without obstruction or gangrene; Z79.02 Long term (current) use of antithrombotics/antiplatelets; Z79.890 Hormone replacement therapy; Z79.899 Other long term (current) drug therapy; Z79.84 Long term (current) use of oral hypoglycemic drugs; Z86.73 Personal history of transient ischemic attack (TIA), and cerebral infarction without residual deficits; Z87.440 Personal history of urinary (tract) infections; Z98.890 Other specified postprocedural states; Z90.49 Acquired absence of other specified parts of digestive tract; Z95.1 Presence of aortocoronary bypass graft; Z90.710 Acquired absence of both cervix and uterus; Z98.42 Cataract extraction status, left eye; Z98.41 Cataract extraction status, right eye; Z95.828 Presence of other vascular implants and grafts; Z88.6 Allergy status to analgesic agent; Z91.041 Radiographic dye allergy status; Z91.013 Allergy to seafood; Z88.2 Allergy status to sulfonamides; Z91.018 Allergy to other foods; Z81.1 Family history of alcohol abuse and dependence; Z83.79 Family history of other diseases of the digestive system; Z84.1 Family history of disorders of kidney and ureter; Z80.9 Family history of malignant neoplasm, unspecified
CPT/HCPCS: 36415; 71046; 80048; 80053; 81001; 82550; 83735; 84484; 85025; 85610; 85730; 93005; 96365; 99285

== ENCOUNTER 2020-12-02 16:47 | Observation (INO) | payer MEDICARE, OTHER ==
[2020-12-02] MEDS ORDERED: SODIUM CHLORIDE 0.9% 500 ML 500 ML IV STA (17:19)
[2020-12-02] MEDS ORDERED: hydrALAZINE HCL 20 MG/ML 1 ML VIAL IVP STA ×2 (17:44→19:10)
--- NOTE | 2020-12-02 17:46 | ED ---
General Adult HPI - General Chief complaint: Dizziness Stated complaint: High BP/dizziness Time Seen by Provider: 12/02/20 17:06 Source: patient, EMS, RN notes reviewed, old records reviewed Mode of arrival: EMS Limitations: no limitations - History of Present Illness Initial comments: 85-year-old female presenting for elevated blood pressure and elevated blood glucose. Patient was transported by EMS. She does have a mild headache, she has not taken her second dose of antihypertensives. She states that her blood sugar at home was 400. She has a history of both hypertension and diabetes. She denies focal numbness or weakness. She denies central chest pain. Denies a sudden onset headache or worst headache of her life. She states she has been eating and drinking normally. No dysuria or hematuria. - Related Data Home Medications Medication Instructions Recorded Confirmed Levothyroxine Sodium [Synthroid] 50 mcg PO DAILY 01/07/17 01/29/20 Clopidogrel [Plavix] 75 mg PO DAILY 05/24/19 01/29/20 glyBURIDE [Diabeta] 5 mg PO AC-BID 05/24/19 01/29/20 Lisinopril-Hctz 20-12.5 mg 1 tab PO BID 08/20/19 01/29/20 [Zestoretic 20-12.5] Cholecalciferol [Vitamin D3 (25 2,000 unit PO DAILY 01/06/20 01/29/20 Mcg = 1000 Iu)] Doxycycline Hyclate [Vibramycin] 100 mg PO BID 01/06/20 01/29/20 Gabapentin [Neurontin] 300 mg PO BID 01/06/20 01/29/20 Omeprazole [PriLOSEC] 20 mg PO AC-BRKFST 01/06/20 01/29/20 Vitamin C/Biotin [Hair, Skin and 1 tab PO DAILY 01/06/20 01/29/20 Nails] sitaGLIPtin [Januvia] 50 mg PO DAILY 01/06/20 01/29/20 Cranberry 4200mg 4,200 mg PO DAILY 01/29/20 01/29/20 DAPTOmycin [Cubicin] 400 mg IV DAILY 01/29/20 01/29/20 Previous Rx's Medication Instructions Recorded Metoprolol Tartrate [Lopressor] 50 mg PO BID #60 tab 06/22/19 amLODIPine [Norvasc] 10 mg PO DAILY 30 Days #30 tab 08/26/19 hydrALAZINE HCL [Apresoline] 50 mg PO TID 30 Days #90 tab 08/26/19 Allergies Allergy/AdvReac Type Severity Reaction Status Date / Time aspirin Allergy Rash/Hives Verified 01/29/20 18:14 fish derived Allergy Rash/Hives Verified 01/29/20 18:14 Iodinated Contrast Media Allergy Rash/Hives Verified 01/29/20 18:14 [Iodinated Contrast Media - IV Dye] Iodine and Iodide Containing Allergy Rash/Hives Verified 01/29/20 18:14 Produc shellfish derived [Shellfish] Allergy Rash/Hives Verified 01/29/20 18:14 sulfamethoxazole Allergy Itching Verified 01/29/20 18:14 [From Bactrim] trimethoprim [From Bactrim] Allergy Itching Verified 01/29/20 18:14 Review of Systems ROS Statement: Those systems with pertinent positive or pertinent negative responses have been documented in the HPI. ROS Other: All systems not noted in ROS Statement are negative. 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 Wound Rt 2nd toe. 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 Past Anesthesia/Blood Transfusion Reactions: Motion Sickness, Postoperative Nausea & Vomiting (PONV) Past Psychological History: No Psychological Hx Reported Smoking Status: Never smoker Past Alcohol Use History: None Reported Past Drug Use History: None Reported - Past Family History Father Family Medical History: Liver Disease Additional Family Medical History / Comment(s): Father of cirrhosis. He was a drinker. Mother Family Medical History: Unable to Obtain Additional Family Medical History / Comment(s): Pt states she does not know her mother's medical history. Son(s) Family Medical History: Unable to Obtain, Renal Disease Daughter(s) Family Medical History: Cancer General Exam Limitations: no limitations General appearance: alert, in no apparent distress Head exam: Present: atraumatic, normocephalic Eye exam: Present: other (Right eye, atrophic, corneal clouding, left eye normal) ENT exam: Present: mucous membranes dry Neck exam: Present: normal inspection. Absent: tenderness, meningismus Respiratory exam: Present: normal lung sounds bilaterally. Absent: respiratory distress, wheezes Cardiovascular Exam: Present: regular rate, normal rhythm GI/Abdominal exam: Present: soft. Absent: distended, tenderness, guarding Extremities exam: Present: normal inspection, normal capillary refill. Absent: pedal edema, calf tenderness Neurological exam: Present: alert, oriented X3, CN II-XII intact. Absent: motor sensory deficit Psychiatric exam: Present: normal affect, normal mood Skin exam: Present: warm, dry, intact. Absent: cyanosis, diaphoretic Course Vital Signs 12/02/20 12/02/20 16:55 19:04 Temperature 97.0 F L Pulse Rate 64 56 L Respiratory 18 18 Rate Blood Pressure 231/85 226/101 O2 Sat by Pulse 95 100 Oximetry EKG Findings - EKG Comments: EKG Findings:: Sinus bradycardia, rate of 53, MA interval 172, QRS duration 104, QTC 427, no ST segment elevation. Medical Decision Making - Medical Decision Making 85-year-old female presenting with elevated blood pressure. Blood pressures quite elevated in the emergency department. She has no focal findings. No chest pain or abdominal pain. She does have a mild headache head CT is performed which is negative for acute pathology. Chest x-ray negative for acute cardiopulmonary pathology. She has a normal CBC, CMP reveals elevated blood sugar 277, magnesium 1.2. This is replaced. Troponin is negative. EKG sinus rhythm without ST segment elevation. Case discussed with Dr. Nagel who will admit for hypertensive urgency. She is continued on her home medication and placed on hydralazine when necessary blood pressure greater than 180 systolic. - Lab Data Result diagrams: 12/02/20 18:16 12/02/20 18:16 Lab Results 12/02/20 12/02/20 12/02/20 Range/Units 18:16 18:16 18:16 WBC 8.1 (3.8-10.6) k/uL RBC 4.13 (3.80-5.40) m/uL Hgb 12.6 (11.4-16.0) gm/dL Hct 36.8 (34.0-46.0) % MCV 89.1 (80.0-100.0) fL MCH 30.4 (25.0-35.0) pg MCHC 34.2 (31.0-37.0) g/dL RDW 14.1 (11.5-15.5) % Plt Count 186 (150-450) k/uL MPV 8.5 Neutrophils % 76 % Lymphocytes % 15 % Monocytes % 6 % Eosinophils % 2 % Basophils % 0 % Neutrophils # 6.1 (1.3-7.7) k/uL Lymphocytes # 1.2 (1.0-4.8) k/uL Monocytes # 0.5 (0-1.0) k/uL Eosinophils # 0.2 (0-0.7) k/uL Basophils # 0.0 (0-0.2) k/uL PT 10.8 (9.0-12.0) sec INR 1.0 (<1.2) APTT 18.9 L (22.0-30.0) sec Sodium (137-145) mmol/L Potassium (3.5-5.1) mmol/L Chloride (98-107) mmol/L Carbon Dioxide (22-30) mmol/L Anion Gap mmol/L BUN (7-17) mg/dL Creatinine (0.52-1.04) mg/dL Est GFR (CKD-EPI)AfAm (>60 ml/min/1.73 sqM) Est GFR (CKD-EPI)NonAf (>60 ml/min/1.73 sqM) Glucose (74-99) mg/dL Calcium (8.4-10.2) mg/dL Magnesium (1.6-2.3) mg/dL Total Bilirubin (0.2-1.3) mg/dL AST (14-36) U/L ALT (4-34) U/L Alkaline Phosphatase (38-126) U/L Troponin I (0.000-0.034) ng/mL Total Protein (6.3-8.2) g/dL Albumin (3.5-5.0) g/dL Urine Color Colorless Urine Appearance Clear (Clear) Urine pH 7.0 (5.0-8.0) Ur Specific [place] 1.005 (1.001-1.035) Urine Protein Trace H (Negative) Urine Glucose (UA) 4+ H (Negative) Urine Ketones Negative (Negative) Urine Blood Negative (Negative) Urine Nitrite Negative (Negative) Urine Bilirubin Negative (Negative) Urine Urobilinogen <2.0 (<2.0) mg/dL Ur Leukocyte Esterase Moderate H (Negative) Urine RBC 1 (0-5) /hpf Urine WBC 14 H (0-5) /hpf Ur Squamous Epith Cells 1 (0-4) /hpf Urine Bacteria Many H (None) /hpf Hyaline Casts 1 (0-2) /lpf 12/02/20 12/02/20 Range/Units 18:16 18:16 WBC (3.8-10.6) k/uL RBC (3.80-5.40) m/uL Hgb (11.4-16.0) gm/dL Hct (34.0-46.0) % MCV (80.0-100.0) fL MCH (25.0-35.0) pg MCHC (31.0-37.0) g/dL RDW (11.5-15.5) % Plt Count (150-450) k/uL MPV Neutrophils % % Lymphocytes % % Monocytes % % Eosinophils % % Basophils % % Neutrophils # (1.3-7.7) k/uL Lymphocytes # (1.0-4.8) k/uL Monocytes # (0-1.0) k/uL Eosinophils # (0-0.7) k/uL Basophils # (0-0.2) k/uL PT (9.0-12.0) sec INR (<1.2) APTT (22.0-30.0) sec Sodium 140 (137-145) mmol/L Potassium 4.2 (3.5-5.1) mmol/L Chloride 109 H (98-107) mmol/L Carbon Dioxide 22 (22-30) mmol/L Anion Gap 9 mmol/L BUN 22 H (7-17) mg/dL Creatinine 0.98 (0.52-1.04) mg/dL Est GFR (CKD-EPI)AfAm 61 (>60 ml/min/1.73 sqM) Est GFR (CKD-EPI)NonAf 53 (>60 ml/min/1.73 sqM) Glucose 277 H (74-99) mg/dL Calcium 9.4 (8.4-10.2) mg/dL Magnesium 1.2 L (1.6-2.3) mg/dL Total Bilirubin 0.4 (0.2-1.3) mg/dL AST 33 (14-36) U/L ALT 22 (4-34) U/L Alkaline Phosphatase 78 (38-126) U/L Troponin I <0.012 (0.000-0.034) ng/mL Total Protein 7.2 (6.3-8.2) g/dL Albumin 4.4 (3.5-5.0) g/dL Urine Color Urine Appearance (Clear) Urine pH (5.0-8.0) Ur Specific [place] (1.001-1.035) Urine Protein (Negative) Urine Glucose (UA) (Negative) Urine Ketones (Negative) Urine Blood (Negative) Urine Nitrite (Negative) Urine Bilirubin (Negative) Urine Urobilinogen (<2.0) mg/dL Ur Leukocyte Esterase (Negative) Urine RBC (0-5) /hpf Urine WBC (0-5) /hpf Ur Squamous Epith Cells (0-4) /hpf Urine Bacteria (None) /hpf Hyaline Casts (0-2) /lpf Disposition Clinical Impression: Hypertensive urgency Disposition: ADMITTED IP TO THIS [facility] Condition: Stable Is patient prescribed a controlled substance at d/c from ED?: No Referrals: Esvin Ramirez DO [Primary Care Provider] - 1-2 days Decision to Admit Reason: Admit from EC Decision Date: 12/02/20 Decision Time: 20:05
--- NOTE | 2020-12-02 18:04 | CT ---
EXAMINATION TYPE: CT brain wo con DATE OF EXAM: 12/02/2020 COMPARISON: 06/19/2019 HISTORY: Weakness, hypertension, elevated blood glucose. CT DLP: 1055.4 mGycm Automated exposure control for dose reduction was used. There is some cerebral cortical atrophy. There is no mass effect nor midline shift. There is no sign of intracranial hemorrhage. There is symmetric thalamic calcification. Calvarium is intact. IMPRESSION: No acute intracranial abnormality. No change.
[2020-12-02 18:25] LABS: Basophils % (A) 0 %; Eosinophils # (A) 0.2 k/uL (0-0.7); Eosinophils % (A) 2 %; HCT 36.8 % (34.0-46.0); HGB 12.6 gm/dL (11.4-16.0); Lymphocytes # (A) 1.2 k/uL (1.0-4.8); Lymphocytes % (A) 15 %; MCH 30.4 pg (25.0-35.0); MCHC 34.2 g/dL (31.0-37.0); MCV 89.1 fL (80.0-100.0); Mean Platelet Volume 8.5; Monocytes # (A) 0.5 k/uL (0-1.0); Monocytes % (A) 6 %; Neutrophils # (A) 6.1 k/uL (1.3-7.7); Neutrophils % (A) 76 %; Platelet Count 186 k/uL (150-450); RBC 4.13 m/uL (3.80-5.40); RDW 14.1 % (11.5-15.5); WBC 8.1 k/uL (3.8-10.6)
[2020-12-02 18:26] LABS: Appearance,Urine Clear (Clear); Bacteria,Urine Many /hpf; Bilirubin,Urine Negative (Negative); Blood,Urine Negative (Negative); Color,Urine Colorless; Glucose,Urine (UA) 4+ (Negative); Hyaline Casts,Urine 1 /lpf (0-2); Ketones,Urine Negative (Negative); Leukocyte Esterase,Urine Moderate (Negative); Nitrite,Urine Negative (Negative); Protein,Urine Trace (Negative); RBC,Urine 1 /hpf (0-5); Specific Gravity,Urine 1.005 (1.001-1.035); Squamous Epithelial Cell,Urine 1 /hpf (0-4); Urobilinogen,Urine <2.0 mg/dL (<2.0); WBC,Urine 14 /hpf (0-5)
[2020-12-02 18:35] LABS: Albumin 4.4 g/dL (3.5-5.0); Calcium 9.4 mg/dL (8.4-10.2); Magnesium 1.2 mg/dL (1.6-2.3); Potassium 4.2 mmol/L (3.5-5.1); Total Bilirubin 0.4 mg/dL (0.2-1.3); Total Protein 7.2 g/dL (6.3-8.2)
--- NOTE | 2020-12-02 18:39 | XR ---
EXAMINATION TYPE: XR chest 2V DATE OF EXAM: 06/24/2019 COMPARISON: 01/29/2020 HISTORY: Weakness TECHNIQUE: FINDINGS: There is no heart failure nor confluent pneumonic infiltrate. Costophrenic angles are clear . There are sternal wires. Bony thorax is intact. IMPRESSION: No active cardiopulmonary disease. No adverse change.
[2020-12-02 18:47] LABS: Prothrombin Time 10.8 sec (9.0-12.0)
[2020-12-02 18:55] LABS: Partial Thromboplastin Time 18.9 sec (22.0-30.0)
[2020-12-02] MEDS ORDERED: NALOXONE 0.4 MG/ML 1 ML VIAL IV PRN (20:02)
[2020-12-02] MEDS ORDERED: hydrALAZINE HCL 20 MG/ML 1 ML VIAL IVP PRN (20:03)
[2020-12-02] MEDS: MAGNESIUM SULFATE-D5W PMX 1 GM in DEXTROSE/WATER 1 100ML.BAG IVPB SCH ×2 (21:12→22:32)
[2020-12-02] MEDS: METOPROLOL TARTRATE 50 MG TAB PO SCH (21:12)
[2020-12-02] MEDS: SODIUM CHLORIDE 0.9% 1,000 ML IV SCH (21:12)
[2020-12-02] MEDS: LISINOPRIL-HCTZ 20-12.5 MG 1 EACH TAB PO SCH (21:19)
--- NOTE | 2020-12-02 21:55 | P.HPIM ---
History of Present Illness H&P Date: 12/02/20 Chief Complaint: Height blood pressure and high sugar History of presenting complaint: This is a pleasant 85-year-old patient who follows with Dr. Ramirez. Rather extensive medical history to include coronary coronary artery disease, left- sided weakness from prior stroke, diabetes, blind in the right eye, hypertension, hyperlipidemia, hypothyroid, chronic pain, osteoarthritis, peripheral neuropathy, esophageal strictures , urinary incontinence. Patient the baseline uses a walker. Lives with her . Had gone to see a family doctor yesterday and the blood pressure is fine. Today for no apparent reason patient's blood pressure running really high and Accu-Cheks and been running high. Patient denies having missed any medications. No chest pain or shortness of breath. No fever no chills. Appetite is a bit down. A bit tired Review of systems: GEN.: Tired EYES: Blind in the right eye HEENT: Decreased hearing NECK: None RESPIRATORY: None CARDIOVASCULAR: None GASTROINTESTINAL: None GENITOURINARY: None MUSCULOSKELETAL: Joint pains LYMPHATICS: None HEMATOLOGICAL: None PSYCHIATRY: None NEUROLOGICAL: Peripheral neuropathy, blind in the right eye Social history: Does not smoke or drink alcohol. . Does use a walker Physical examination: VITAL SIGNS: 87, 64, 18, 2 31 x 85, 95% room air GENERAL: He planning in bed, awake EYES: Blind in the right eye HEENT: External appearance of nose and ears normal, oral cavity grossly normal. NECK: JVD not raised; masses not palpable. HEART: First and second heart sounds are normal; no edema. LUNGS: Respiratory rate normal; clear to auscultation. ABDOMEN: Soft, nontender, liver spleen not palpable, no masses palpable. PSYCH: Alert and oriented x3; mood and affect normal. MUSCULOSKELETAL: evidence of OA in the joints NEUROLOGICAL: Chronic weakness on the left side. Blind in the right eye... INVESTIGATIONS, reviewed in the clinical context hemoglobin 12.6 platelets 186 potassium 4.2 creatinine 0.98 blood glucose 277 UA: Positive for leukoesterase, WBC EKG tracing personally reviewed by me-normal sinus rhythm, nonspecific ST segment T-wave changes. Chest x-ray film personally reviewed by me-cardiomegaly, no obvious infiltrate Assessment and plan: -Accelerated hypertension. Patient denies having missed any medications. Not in any pain. No shortness of breath no chest pain. This could be a manifestation of ectopic dysfunction being labile. We will continue home dose of Lopressor Zestoretic. Amlodipine is being added. -chronic right shoulder dysfunction -Coronary artery disease, prior history of bypass 2007 Continue with Lopressor, Zestoretic -Diabetes mellitus type 2 on oral hypoglycemic, uncontrolled with hyperglycemia Resume home dose of Januvia and glyburide right follow Accu-Cheks. Dietitian -Blind in the right eye, chronic -Hyperlipidemia Continue Lipitor -Hypothyroidism Continue Synthroid -Primary osteoarthritis Continue pain medications -Diabetic peripheral neuropathy -Chronic urinary incontinence -Chronic gait dysfunction uses a walker -Acute UTI with cystitis At [facility] Accu-Cheks will be closely followed. Dietitian consultation. Amlodipine added. Care was discussed with the patient. Past Medical History Past Medical History: Coronary Artery Disease (CAD), Chest Pain / Angina, CVA/TIA, Diabetes Mellitus, Eye Disorder, GERD/Reflux, Hyperlipidemia, Hy pertension, Osteoarthritis (OA), Skin Disorder, Syncope, Thyroid Disorder Additional Past Medical History / Comment(s): CVA-1996 - L arm, leg mild weakness, dysphagia, esophageal strictures w/ dilations, hiatal hernia, chronic pain syndrome (generalized pain), peripheral neuropathy, bilat CTS, anemia, Diabetic Retinopathy, blind in R eye, UTIs, urinatry leakage, uses walker. Wound Rt 2nd toe. 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 Past Anesthesia/Blood Transfusion Reactions: Motion Sickness, Postoperative Nausea & Vomiting (PONV) Past Psychological History: No Psychological Hx Reported Smoking Status: Never smoker Past Alcohol Use History: None Reported Past Drug Use History: None Reported - Past Family History Father Family Medical History: Liver Disease Additional Family Medical History / Comment(s): Father of cirrhosis. He was a drinker. Mother Family Medical History: Unable to Obtain Additional Family Medical History / Comment(s): Pt states she does not know her mother's medical history. Son(s) Family Medical History: Unable to Obtain, Renal Disease Daughter(s) Family Medical History: Cancer Medications and Allergies Home Medications Medication Instructions Recorded Confirmed Type Levothyroxine Sodium [Synthroid] 50 mcg PO DIRECTED 01/07/17 12/02/20 History Clopidogrel [Plavix] 75 mg PO DIRECTED 05/24/19 12/02/20 History glyBURIDE [Diabeta] 5 mg PO AC-BID 05/24/19 12/02/20 History Metoprolol Tartrate [Lopressor] 50 mg PO BID #60 tab 06/22/19 12/02/20 Rx Lisinopril-Hctz 20-12.5 mg 1 tab PO BID 08/20/19 12/02/20 History [Zestoretic 20-12.5] Omeprazole [PriLOSEC] 20 mg PO AC-BRKFST 01/06/20 12/02/20 History Atorvastatin [Lipitor] 40 mg PO HS 12/02/20 12/02/20 History sitaGLIPtin PHOSPHATE [Januvia] 100 mg PO DAILY 12/02/20 12/02/20 History Allergies Allergy/AdvReac Type Severity Reaction Status Date / Time aspirin Allergy Rash/Hives Verified 12/02/20 20:56 fish derived Allergy Rash/Hives Verified 12/02/20 20:56 Iodinated Contrast Media Allergy Rash/Hives Verified 12/02/20 20:56 [Iodinated Contrast Media - IV Dye] Iodine and Iodide Containing Allergy Rash/Hives Verified 12/02/20 20:56 Produc shellfish derived [Shellfish] Allergy Rash/Hives Verified 12/02/20 20:56 sulfamethoxazole Allergy Itching Verified 12/02/20 20:56 [From Bactrim] trimethoprim [From Bactrim] Allergy Itching Verified 12/02/20 20:56 Physical Exam Vitals: Vital Signs Temp Pulse Resp BP Pulse Ox 12/02/20 19:04 56 L 18 226/101 100 12/02/20 16:55 97.0 F L 64 18 231/85 95 Intake and Output 12/02/20 12/02/20 12/02/20 06:59 14:59 22:59 Other: Weight 72.575 kg Results CBC & Chem 7: 12/02/20 18:16 12/02/20 18:16 Labs: Abnormal Lab Results - Last 24 Hours (Table) 12/02/20 12/02/2021 Range/Units 18:16 18:16 18:16 APTT 18.9 L (22.0-30.0) sec Chloride 109 H (98-107) mmol/L BUN 22 H (7-17) mg/dL Glucose 277 H (74-99) mg/dL Magnesium 1.2 L (1.6-2.3) mg/dL Urine Protein Trace H (Negative) Urine Glucose (UA) 4+ H (Negative) Ur Leukocyte Esterase Moderate H (Negative) Urine WBC 14 H (0-5) /hpf Urine Bacteria Many H (None) /hpf
[2020-12-02] MEDS: CEPHALEXIN 250 MG CAP PO SCH (22:31)
[2020-12-02] MEDS: ACETAMINOPHEN TAB 325 MG TAB PO PRN (22:36)
[2020-12-02 23:25] LABS: Glucose,Whole Blood 239 mg/dL (75-99)
[2020-12-02] MEDS: INSULIN ASPART (NovoLOG) 100 UNIT/ML VIAL SQ SCH (23:27)
[2020-12-03 07:46] LABS: Glucose,Whole Blood 168 mg/dL (75-99)
[2020-12-03] MEDS: PANTOPRAZOLE 40 MG TABLET PO SCH (07:50)
[2020-12-03] MEDS: LEVOTHYROXINE 50 MCG TAB PO SCH (07:50)
[2020-12-03] MEDS: glipiZIDE 10 MG TAB PO SCH ×2 (07:51→22:39)
[2020-12-03] MEDS: INSULIN ASPART (NovoLOG) 100 UNIT/ML VIAL SQ SCH ×4 (07:51→22:01)
[2020-12-03] MEDS: CLOPIDOGREL 75 MG TAB PO SCH (09:38)
[2020-12-03] MEDS: CEPHALEXIN 250 MG CAP PO SCH ×4 (09:38→22:59)
[2020-12-03] MEDS: ACETAMINOPHEN TAB 325 MG TAB PO PRN (09:38)
[2020-12-03] MEDS: LINAGLIPTIN 5 MG TABLET PO SCH (09:39)
[2020-12-03] MEDS: METOPROLOL TARTRATE 50 MG TAB PO SCH (09:39)
[2020-12-03] MEDS: amLODIPine 10 MG TAB PO SCH (09:39)
[2020-12-03] MEDS: LISINOPRIL-HCTZ 20-12.5 MG 1 EACH TAB PO SCH ×3 (09:39→21:59)
[2020-12-03 12:21] LABS: Glucose,Whole Blood 194 mg/dL (75-99)
[2020-12-03] MEDS ORDERED: METOPROLOL TARTRATE 25 MG TAB PO SCH (13:00)
[2020-12-03] MEDS: PRAZOSIN 1 MG CAP PO SCH ×2 (17:08→22:59)
--- NOTE | 2020-12-03 17:17 | P.PN ---
Progress Note - Text Progress Note Date: 12/03/20 Chief Complaint: Height blood pressure and high sugar History of presenting complaint: This is a pleasant 85-year-old patient who follows with Dr. Ramirez. Rather extensive medical history to include coronary coronary artery disease, left- sided weakness from prior stroke, diabetes, blind in the right eye, hypertension, hyperlipidemia, hypothyroid, chronic pain, osteoarthritis, peripheral neuropathy, esophageal strictures , urinary incontinence. Patient the baseline uses a walker. Lives with her . Had gone to see a family doctor yesterday and the blood pressure is fine. Today for no apparent reason patient's blood pressure running really high and Accu-Cheks and been running high. Patient denies having missed any medications. No chest pain or shortness of breath. No fever no chills. Appetite is a bit down. A bit tired Admitted with accelerated hypertension and uncontrolled diabetes. Today: Blood pressure still running high. Heart rate is was in the 50s therefore dose of Lopressor was cut back. at bedside. No chest pain. Review of systems: Was done for constitutional, cardiovascular, GI, pulmonary. relevant finding as above Active Medications Acetaminophen (Acetaminophen Tab 325 Mg Tab) 650 mg PO Q6HR PRN PRN Reason: Mild Pain or Fever > 100.5 Last Admin: 12/03/20 09:38 Dose: 650 mg Documented by: Amlodipine Besylate (Amlodipine 10 Mg Tab) 10 mg PO DAILY [facility] Last Admin: 12/03/20 09:39 Dose: 10 mg Documented by: Atorvastatin Calcium (Atorvastatin 40 Mg Tab) 40 mg PO HS [facility] Cephalexin (Cephalexin 250 Mg Cap) 250 mg PO QID [facility] Last Admin: 12/03/20 17:08 Dose: 250 mg Documented by: Clopidogrel Bisulfate (Clopidogrel 75 Mg Tab) 75 mg PO DAILY [facility] Last Admin: 12/03/20 09:38 Dose: 75 mg Documented by: Glipizide (Glipizide 10 Mg Tab) 10 mg PO AC-BID [facility] Last Admin: 12/03/20 07:51 Dose: 10 mg Documented by: Lisinopril/HCTZ (Lisinopril-Hctz 20-12.5 Mg 1 Each Tab) 1 each PO BID [facility] Last Admin: 12/03/20 12:54 Dose: 1 each Documented by: Hydralazine HCl (Hydralazine Hcl 20 Mg/Ml 1 Ml Vial) 10 mg IVP Q6HR PRN PRN Reason: Blood Pressure - High Sodium Chloride (Saline 0.9%) 1,000 mls @ 75 mls/hr IV .[id number] [facility] Last Admin: 12/02/20 21:12 Dose: 75 mls/hr Documented by: Insulin Aspart (Insulin Aspart (Novolog) 100 Unit/Ml Vial) 0 unit SQ ACHS [facility]; Protocol Last Admin: 12/03/20 12:28 Dose: 2 unit Documented by: Levothyroxine Sodium (Levothyroxine 50 Mcg Tab) 50 mcg PO DAILY@0630 [facility] Last Admin: 12/03/20 07:50 Dose: 50 mcg Documented by: Linagliptin (Linagliptin 5 Mg Tablet) 5 mg PO DAILY [facility] Last Admin: 12/03/20 09:39 Dose: 5 mg Documented by: Metoprolol Tartrate (Metoprolol Tartrate 25 Mg Tab) 25 mg PO BID [facility] Last Admin: 12/03/20 12:53 Dose: 25 mg Documented by: Naloxone HCl (Naloxone 0.4 Mg/Ml 1 Ml Vial) 0.2 mg IV Q2M PRN PRN Reason: Opioid Reversal Pantoprazole Sodium (Pantoprazole 40 Mg Tablet) 40 mg PO AC-BRKFST [facility] Last Admin: 12/03/20 07:50 Dose: 40 mg Documented by: Prazosin HCl (Prazosin 1 Mg Cap) 2 mg PO TID [facility] Last Admin: 12/03/20 17:08 Dose: 2 mg Documented by: Social history: Does not smoke or drink alcohol. . Does use a walker Physical examination: VITAL SIGNS: 97.9, 54, 18, 132/69, 97% room air GENERAL: He finding in the bed awake EYES: Blind in the right eye HEENT: External appearance of nose and ears normal, oral cavity grossly normal. NECK: JVD not raised; masses not palpable. HEART: First and second heart sounds are normal; no edema. LUNGS: Respiratory rate normal; clear to auscultation. ABDOMEN: Soft, nontender, liver spleen not palpable, no masses palpable. PSYCH: Alert and oriented x3; mood and affect normal. MUSCULOSKELETAL: evidence of OA in the joints NEUROLOGICAL: Chronic weakness on the left side. Blind in the right eye... INVESTIGATIONS, reviewed in the clinical context December 03: Accu-Cheks 168, 194 hemoglobin 12.6 platelets 186 potassium 4.2 creatinine 0.98 blood glucose 277 UA: Positive for leukoesterase, WBC EKG tracing personally reviewed by me-normal sinus rhythm, nonspecific ST segment T-wave changes. Chest x-ray film personally reviewed by me-cardiomegaly, no obvious infiltrate Assessment and plan: -Accelerated hypertension.-Slow to respond Amlodipine i added. Continue Zestoretic. Lopressor cutback to 25 twice a day. Add prazosin 2 mg 3 times a day -chronic right shoulder dysfunction -Coronary artery disease, prior history of bypass 2007 Continue with Lopressor, Zestoretic -Diabetes mellitus type 2 on oral hypoglycemic, uncontrolled with hyperglycemia Resume home dose of Januvia and glyburide right follow Accu-Cheks. Dietitian -Blind in the right eye, chronic -Hyperlipidemia Continue Lipitor -Hypothyroidism Continue Synthroid -Primary osteoarthritis Continue pain medications -Diabetic peripheral neuropathy -Chronic urinary incontinence -Chronic gait dysfunction uses a walker -Acute UTI with cystitis At [facility] Care was discussed at length with the patient and at the bedside. Medication adjusted. Spoke to the nurse at length. Questions answered. Patient is reluctant to take medications as because of money issues. Was reassured. Total time spent today was 40 minutes with over 25 minutes of discussion.
[2020-12-03 17:30] LABS: Glucose,Whole Blood 200 mg/dL (75-99)
[2020-12-03] MEDS ORDERED: ATORVASTATIN 40 MG TAB PO SCH (21:00)
[2020-12-03 22:09] LABS: Glucose,Whole Blood 202 mg/dL (75-99)
[2020-12-03] MEDS: SODIUM CHLORIDE 0.9% 1,000 ML IV SCH ×2 (22:38→23:18)
[2020-12-03] MEDS: LABETALOL 200 MG TAB PO SCH (23:47)
[2020-12-04 06:22] LABS: Glucose,Whole Blood 219 mg/dL (75-99)
[2020-12-04] MEDS: glipiZIDE 10 MG TAB PO SCH (06:26)
[2020-12-04] MEDS: INSULIN ASPART (NovoLOG) 100 UNIT/ML VIAL SQ SCH ×2 (06:26→12:24)
[2020-12-04] MEDS: LEVOTHYROXINE 50 MCG TAB PO SCH (06:26)
[2020-12-04] MEDS: PANTOPRAZOLE 40 MG TABLET PO SCH (06:26)
[2020-12-04 09:25] VITALS: PULSE 60; RESP 16
[2020-12-04] MEDS: CLOPIDOGREL 75 MG TAB PO SCH (09:27)
[2020-12-04] MEDS: amLODIPine 10 MG TAB PO SCH (09:27)
[2020-12-04] MEDS: CEPHALEXIN 250 MG CAP PO SCH ×2 (09:27→12:24)
[2020-12-04] MEDS: LINAGLIPTIN 5 MG TABLET PO SCH (09:28)
[2020-12-04] MEDS: LABETALOL 200 MG TAB PO SCH (09:28)
[2020-12-04] MEDS: PRAZOSIN 1 MG CAP PO SCH (09:28)
[2020-12-04] MEDS: LISINOPRIL-HCTZ 20-12.5 MG 1 EACH TAB PO SCH (09:28)
[2020-12-04] MEDS: SODIUM CHLORIDE 0.9% 1,000 ML IV SCH (11:50)
[2020-12-04 11:52] VITALS: BP 154/70; TEMP 97.6
[2020-12-04 12:03] LABS: Glucose,Whole Blood 273 mg/dL (75-99)
--- NOTE | 2020-12-04 16:47 | P.DS ---
Providers Date of admission: 12/02/20 20:03 Expected date of discharge: 12/04/20 Attending physician: Elan Nagel Primary care physician: Esvin Ramirez [facility] Course: Chief Complaint: Height blood pressure and high sugar History of presenting complaint: This is a pleasant 85-year-old patient who follows with Dr. Ramirez. Rather extensive medical history to include coronary coronary artery disease, left-s ided weakness from prior stroke, diabetes, blind in the right eye, hypertension, hyperlipidemia, hypothyroid, chronic pain, osteoarthritis, peripheral neuropathy, esophageal strictures , urinary incontinence. Patient the baseline uses a walker. Lives with her . Had gone to see a family doctor yesterday and the blood pressure is fine. Today for no apparent reason patient's blood pressure running really high and Accu-Cheks and been running high. Patient denies having missed any medications. No chest pain or shortness of breath. No fever no chills. Appetite is a bit down. A bit tired Admitted with accelerated hypertension and uncontrolled diabetes. Blood pressure medications were adjusted. Today: Blood pressure is much better controlled. Patient has a component of labile hypertension from autonomic dysfunction from diabetes. Medications discussed at length with the patient and at the bedside. Printed list given. Follow-up with her family doctor. Given her age and comorbidities prognosis guarded. Discussion and discharge planning more than 35 minutes Social history: Does not smoke or drink alcohol. . Does use a walker Physical examination: VITAL SIGNS: 97.6, 60, 16, 154/70, 97% room air GENERAL: Sitting up in a chair, comfortable EYES: Blind in the right eye HEENT: External appearance of nose and ears normal, oral cavity grossly normal. NECK: JVD not raised; masses not palpable. HEART: First and second heart sounds are normal; no edema. LUNGS: Respiratory rate normal; clear to auscultation. ABDOMEN: Soft, nontender, liver spleen not palpable, no masses palpable. PSYCH: Alert and oriented x3; mood and affect normal. MUSCULOSKELETAL: evidence of OA in the joints NEUROLOGICAL: Chronic weakness on the left side. Blind in the right eye... INVESTIGATIONS, reviewed in the clinical context December 03 Accu-Cheks: 219 December 03: Accu-Cheks 168, 194 hemoglobin 12.6 platelets 186 potassium 4.2 creatinine 0.98 blood glucose 277 UA: Positive for leukoesterase, WBC EKG tracing personally reviewed by me-normal sinus rhythm, nonspecific ST segment T-wave changes. Chest x-ray film personally reviewed by me-cardiomegaly, no obvious infiltrate Assessment and plan: -Accelerated hypertension.-Improved Amlodipine 10 mg added. Continue Zestoretic. Lopressor-discontinued. Started labetalol 400 mg twice a day -chronic right shoulder dysfunction -Coronary artery disease, prior history of bypass 2007 Continue with Lopressor, Zestoretic -Diabetes mellitus type 2 on oral hypoglycemic, uncontrolled with hyperglycemia Resume home dose of Januvia and glyburide right follow Accu-Cheks. Dietitian -Blind in the right eye, chronic -Hyperlipidemia Continue Lipitor -Hypothyroidism Continue Synthroid -Primary osteoarthritis Continue pain medications -Diabetic peripheral neuropathy -Chronic urinary incontinence -Chronic gait dysfunction uses a walker -Acute UTI with cystitis At [facility] Disposition: Home Patient Condition at Discharge: Stable Plan - Discharge Summary Discharge Rx Participant: No New Discharge Prescriptions: New Cephalexin [Keflex] 250 mg PO QID #8 cap amLODIPine [Norvasc] 10 mg PO DAILY #30 tab Labetalol [Trandate] 400 mg PO BID #60 tablet Continue glyBURIDE [Diabeta] 5 mg PO AC-BID Lisinopril-Hctz 20-12.5 mg [Zestoretic 20-12.5] 1 tab PO BID Omeprazole [PriLOSEC] 20 mg PO AC-BRKFST Atorvastatin [Lipitor] 40 mg PO HS sitaGLIPtin PHOSPHATE [Januvia] 100 mg PO DAILY Changed Clopidogrel [Plavix] 75 mg PO DAILY #0 Levothyroxine Sodium [Synthroid] 50 mcg PO DAILY #0 Discontinued Metoprolol Tartrate [Lopressor] 50 mg PO BID #60 tab Discharge Medication List glyBURIDE [Diabeta] 5 mg PO AC-BID 05/24/19 [History] Lisinopril-Hctz 20-12.5 mg [Zestoretic 20-12.5] 1 tab PO BID 08/20/19 [History] Omeprazole [PriLOSEC] 20 mg PO AC-BRKFST 01/06/20 [History] Atorvastatin [Lipitor] 40 mg PO HS 12/02/20 [History] sitaGLIPtin PHOSPHATE [Januvia] 100 mg PO DAILY 12/02/20 [History] Cephalexin [Keflex] 250 mg PO QID #8 cap 12/04/20 [Rx] Clopidogrel [Plavix] 75 mg PO DAILY #0 12/04/20 [Rx] Labetalol [Trandate] 400 mg PO BID #60 tablet 12/04/20 [Rx] Levothyroxine Sodium [Synthroid] 50 mcg PO DAILY #0 12/04/20 [Rx] amLODIPine [Norvasc] 10 mg PO DAILY #30 tab 12/04/20 [Rx] Follow up Appointment(s)/Referral(s): Esvin Ramirez DO [Primary Care Provider] - 1-2 days (Office will call with a date and time for followup appointment) Patient Instructions/Handouts: Hypertension (DC) Discharge Disposition: HOME SELF-CARE
== END 2020-12-04 13:41 | disposition home or self-care (01) ==
LOC: EC 16:47 → 3SCARD 20:03
PROVIDERS: ADMIT Hospitalist; ATTEND Hospitalist
DX: I10 Essential (primary) hypertension (principal); M25.511 Pain in right shoulder; I25.10 Atherosclerotic heart disease of native coronary artery without angina pectoris; Z95.1 Presence of aortocoronary bypass graft; E11.65 Type 2 diabetes mellitus with hyperglycemia; E11.319 Type 2 diabetes mellitus with unspecified diabetic retinopathy without macular edema; E11.42 Type 2 diabetes mellitus with diabetic polyneuropathy; I16.0 Hypertensive urgency; I69.354 Hemiplegia and hemiparesis following cerebral infarction affecting left non-dominant side; E03.9 Hypothyroidism, unspecified; H54.61 Unqualified visual loss, right eye, normal vision left eye; E78.5 Hyperlipidemia, unspecified; K22.2 Esophageal obstruction; R32 Unspecified urinary incontinence; M19.91 Primary osteoarthritis, unspecified site; R26.9 Unspecified abnormalities of gait and mobility; N30.90 Cystitis, unspecified without hematuria; K21.9 Gastro-esophageal reflux disease without esophagitis; G89.4 Chronic pain syndrome; G56.03 Carpal tunnel syndrome, bilateral upper limbs; T46.5X6A Underdosing of other antihypertensive drugs, initial encounter; Z91.14 Patient's other noncompliance with medication regimen; D64.9 Anemia, unspecified; Z20.822 Contact with and (suspected) exposure to COVID-19; Z87.440 Personal history of urinary (tract) infections; Z90.49 Acquired absence of other specified parts of digestive tract; Z90.710 Acquired absence of both cervix and uterus; Z79.890 Hormone replacement therapy; Z79.84 Long term (current) use of oral hypoglycemic drugs; Z79.02 Long term (current) use of antithrombotics/antiplatelets; Z79.899 Other long term (current) drug therapy; Z88.6 Allergy status to analgesic agent; Z91.041 Radiographic dye allergy status; Z91.013 Allergy to seafood; Z88.2 Allergy status to sulfonamides; Z91.048 Other nonmedicinal substance allergy status; Z80.9 Family history of malignant neoplasm, unspecified; Z83.79 Family history of other diseases of the digestive system
CPT/HCPCS: 96376; 96365; 96366; 96375; 99285; 36415; 93005; 80053; 83735; 84484; 85025; 85610; 85730; 81001; 87086; 87077; 87186; 87635; 71046; 70450; G0378 ×3; J0360; J3475

== ENCOUNTER 2021-01-21 20:24 | Inpatient (IN) | payer MEDICARE, OTHER ==
[2021-01-21 20:41] LABS: Glucose,Whole Blood 192 mg/dL (75-99)
[2021-01-21] MEDS ORDERED: niCARdipine 20 MG in SODIUM CHLORIDE 0.9% 192 ML IV ONE (20:51)
[2021-01-21] MEDS ORDERED: LABETALOL 5 MG/ML VIAL MDV IVP STA (20:54)
[2021-01-21] MEDS ORDERED: diphenhydrAMINE 50 MG/ML 1 ML VIAL IVP STA (21:09)
[2021-01-21] MEDS ORDERED: methylPREDNISolone SOD SUCCI 125 MG/2 ML VIAL IV STA (21:09)
[2021-01-21] MEDS ORDERED: FAMOTIDINE 20 MG/2 ML VIAL IV STA (21:09)
--- NOTE | 2021-01-21 21:12 | CT ---
EXAMINATION TYPE: CT brain wo con DATE OF EXAM: 01/21/2021 COMPARISON: 12/02/2020 HISTORY: Altered mental status. CT DLP: 1102.8 mGycm Automated exposure control for dose reduction was used. There is no mass effect nor midline shift. There is no sign of intracranial hemorrhage. Ventricles bryson ve normal size. There is deformity of the right globe with calcification. There is cerebral atrophy. There is symmetric 12 mm calcification in the anterior thalamus. This appears unchanged compared to o ld exam. IMPRESSION: Cerebral atrophy. No acute intracranial abnormality. No change.
[2021-01-21 21:13] LABS: Basophils % (A) 0 %; Eosinophils # (A) 0.1 k/uL (0-0.7); Eosinophils % (A) 1 %; HCT 35.8 % (34.0-46.0); HGB 12.4 gm/dL (11.4-16.0); Lymphocytes # (A) 1.3 k/uL (1.0-4.8); Lymphocytes % (A) 12 %; MCH 29.5 pg (25.0-35.0); MCHC 34.5 g/dL (31.0-37.0); MCV 85.5 fL (80.0-100.0); Mean Platelet Volume 7.7; Monocytes # (A) 0.5 k/uL (0-1.0); Monocytes % (A) 5 %; Neutrophils # (A) 8.6 k/uL (1.3-7.7); Neutrophils % (A) 81 %; Platelet Count 206 k/uL (150-450); RBC 4.19 m/uL (3.80-5.40); RDW 13.8 % (11.5-15.5); WBC 10.7 k/uL (3.8-10.6)
[2021-01-21 21:22] LABS: Partial Thromboplastin Time 24.9 sec (22.0-30.0); Prothrombin Time 11.1 sec (9.0-12.0)
[2021-01-21] MEDS ORDERED: ONDANSETRON 4 MG/2 ML VIAL IVP STA (21:30)
[2021-01-21] MEDS ORDERED: METOCLOPRAMIDE 5 MG/ML 2 ML VIAL IVP STA (21:51)
--- NOTE | 2021-01-21 21:59 | XR ---
EXAMINATION TYPE: XR chest 1V portable DATE OF EXAM: 01/21/2021 COMPARISON: 12/02/2020 HISTORY: Altered mental status TECHNIQUE: FINDINGS: Heart is mildly enlarged. There is no heart failure. There are sternal wires. Costophrenic angles are clear. There are chest leads. IMPRESSION: Cardiomegaly. No active cardiopulmonary disease. No change compared to old exam.
--- NOTE | 2021-01-21 22:06 | CT ---
EXAMINATION TYPE: CT angio head neck DATE OF EXAM: 01/21/2021 COMPARISON: 06/19/2019 HISTORY: Altered mental status. CT DLP: 521 mGycm Automated exposure control for dose reduction was used. CONTRAST: Performed with IV Contrast, patient injected with 65ml mL of Isovue 370. Images obtained from the aortic arch to the vertex of the brain with IV contrast. There are 3-D post processed images. Ascending aorta measures 3.6 cm. There is no dissection. There is normal branching pattern of the gre at vessels on the aortic arch. There is bilateral arterial flow in the subclavian arteries. There is arterial flow in the common internal and external carotid arteries bilaterally. There is arterial dona w in both vertebral arteries. There is plaque formation and approximate 40% stenosis origin of the le ft internal carotid artery. There is moderate plaque at the right carotid artery bifurcation and delmis mated 35% stenosis proximal right internal carotid artery. There is no evidence of carotid or vertebr al artery aneurysm or dissection. There is arterial flow in the vertebrobasilar artery system. Basila r artery fills mainly from the left side. There is arterial flow in the anterior middle and posterior cerebral arteries. I see no evidence of i ntracranial aneurysm or neovascularity. There is no evidence of intracranial arterial stenosis. IMPRESSION: No evidence of any significant intracranial angiographic abnormality. Plaque formation at the carotid artery bifurcations and estimated 35-40% stenosis at the origin of th e internal carotid arteries bilaterally.
--- NOTE | 2021-01-21 23:06 | ED ---
General Adult HPI - General Chief complaint: Altered Mental Status Stated complaint: Altered mental status Time Seen by Provider: 01/21/21 20:42 Source: patient, EMS, RN notes reviewed, old records reviewed Mode of arrival: EMS Limitations: no limitations - History of Present Illness Initial comments: Patient is an 85-year-old female with past medical history remarkable for CAD, chest pain, CVA/TIA, diabetes, hypertension that is poorly controlled, GERD, thyroid disorder since emergency Department after being brought in by her granddaughter for altered mental status. Less than was sometime earlier today. Patient's granddaughter presented and states that she went to her grandmother's house this evening and found her altered. She is alert and oriented 1 to self. She's not really talking. She is having some nausea and vomiting. She denies any acute complaints. Patient is unable to provide much history. Patient's granddaughter states that she is poorly compliant with her medications. She is not on blood thinners. Patient presents for altered mental status. She was found to be hypertensive in route to the hospital with systolic blood pressures above 240. - Related Data Home Medications Medication Instructions Recorded Confirmed glyBURIDE [Diabeta] 5 mg PO AC-BID 05/24/19 01/21/21 Lisinopril-Hctz 20-12.5 mg 1 tab PO BID 08/20/19 01/21/21 [Zestoretic 20-12.5] Omeprazole [PriLOSEC] 20 mg PO AC-BRKFST 01/06/20 01/21/21 Atorvastatin [Lipitor] 40 mg PO HS 12/02/20 01/21/21 Previous Rx's Medication Instructions Recorded Clopidogrel [Plavix] 75 mg PO DAILY #0 12/04/20 Levothyroxine Sodium [Synthroid] 50 mcg PO DAILY #0 12/04/20 amLODIPine [Norvasc] 10 mg PO DAILY #30 tab 12/04/20 Allergies Allergy/AdvReac Type Severity Reaction Status Date / Time aspirin Allergy Rash/Hives Verified 01/21/21 21:25 fish derived Allergy Rash/Hives Verified 01/21/21 21:25 Iodinated Contrast Media Allergy Rash/Hives Verified 01/21/21 21:25 [Iodinated Contrast Media - IV Dye] Iodine and Iodide Containing Allergy Rash/Hives Verified 07/15/21 21:25 Produc shellfish derived [Shellfish] Allergy Rash/Hives Verified 01/21/21 21:25 sulfamethoxazole Allergy Itching Verified 01/21/21 21:25 [From Bactrim] trimethoprim [From Bactrim] Allergy Itching Verified 01/21/21 21:25 Review of Systems ROS Statement: Those systems with pertinent positive or pertinent negative responses have been documented in the HPI. Patient is unable to provide secondary to altered mental status. ROS Other: All systems not noted in ROS Statement are negative. 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, dysphagia,esophageal strictures with dilation, hiatal hernia, L eye diabetic retinopathy/R eye blindness, bilateral [place], UTIS/urinary leakage, past bilateral feet sores/osteomylitis, generalized pain, bilateral carpal tunnel syndrome, vertigo, hypothyroid, anemia History of Any Multi-Drug Resistant Organisms: None Reported Past Surgical History: Bladder Surgery, Cholecystectomy, Coronary Bypass/CABG, Heart Catheterization, Hysterectomy Additional Past Surgical History / Comment(s): 2007 CABG 4 vessel, EGDs with dilations, colonoscopies, cataract removal, D&C, bladder suspension, PICC, loop recorder. Past Anesthesia/Blood Transfusion Reactions: Motion Sickness, Postoperative Nausea & Vomiting (PONV) Past Psychological History: No Psychological Hx Reported Smoking Status: Never smoker Past Alcohol Use History: None Reported Past Drug Use History: None Reported - Past Family History Father Family Medical History: Liver Disease Additional Family Medical History / Comment(s): Father of cirrhosis. He was a drinker. Mother History Unknown: Yes Family Medical History: Unable to Obtain Additional Family Medical History / Comment(s): Pt states she does not know her mother's medical history, but knows she at the age of 62 yrs.. Son(s) Family Medical History: Unable to Obtain, Renal Disease Daughter(s) Family Medical History: Cancer General Exam - General Exam Comments Initial Comments: General: Appears okay but in no acute distress. HEAD: Normal with no signs of head trauma. 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 She is blind. Left eye has pupils 3 mm and equally reactive to light. EOMI does appear to be intact. Pa amannt will alert to voice. ENT: Hearing grossly intact, normal oropharynx. RESPIRATORY: Clear breath sounds bilaterally. No wheezes, rales, or rhonchi. C/V: Regular rate and rhythm. S1 and S2 auscultated, no edema, peripheral pulses 2+ and intact throughout ABD: Abd is soft, nontender, nondistended EXT: Patient is moving all 4 extremities without any obvious deformity. SKIN: No rashes or lesions observed on exposed skin. NEURO: Patient is alert and oriented to self as well as time. She is not oriented to place.. Neurological exam is difficult to completely, however patient is moving all 4 extremities, but does not appear to be any facial droop. She is following basic commands. Limitations: no limitations Course Vital Signs 01/21/21 01/21/21 01/21/21 20:25 21:10 21:17 Temperature 98.2 F Pulse Rate 69 69 70 Respiratory 20 20 18 Rate Blood Pressure 224/85 225/72 173/91 O2 Sat by Pulse 97 98 Oximetry 01/21/21 01/21/21 01/21/21 21:35 21:40 21:45 Temperature Pulse Rate 65 Respiratory 18 Rate Blood Pressure 186/62 176/62 165/56 O2 Sat by Pulse 92 L Oximetry 01/21/21 01/21/21 01/21/21 21:55 22:00 22:10 Temperature Pulse Rate Respiratory Rate Blood Pressure 146/59 139/54 139/58 O2 Sat by Pulse Oximetry 01/21/21 01/21/21 01/21/21 22:28 22:30 22:35 Temperature Pulse Rate 67 70 Respiratory 18 Rate Blood Pressure 165/66 159/65 O2 Sat by Pulse 98 100 Oximetry 01/21/21 01/21/21 22:40 22:50 Temperature Pulse Rate Respiratory Rate Blood Pressure 162/74 160/67 O2 Sat by Pulse Oximetry Medical Decision Making - Medical Decision Making Based on the patient's presentation and physical exam, I'm concerned for possible hypertensive emergency as the cause for altered mental status. Less l ikely is an acute intracranial process, however we rule out possibility of stroke with CT head as well as CTAs of the brain and neck.. Patient initially presented and EKG was immediately obtained as were laboratory studies. Patient was quickly taken to the CT scanner for her initial scan which was negative for any acute bleed, chronic calcifications. Prior to receiving CTA, it was realized that she is ALLERGIC to contrast. Patient was therefore taken back to her room to receive the immediate contrast ALLERGY prep, and was administered 10 mg of IV labetalol. Heart rate remained in the mid to low 60s marginable painful and it did decrease somewhat following administration. Therefore anti hypertensive was changed to a nicardipine drip. After receiving famotidine, Benadryl, Solu-Medrol, we did obtain CTAs of the rain and neck which did not reveal any acute intracranial process. Patient was taken back to room and placed on continuous cardiac monitoring. Altered mental status labs were obtained and sent including cardiac labs, electrolytes, CBC. She'll be monitored for improvement in mental status as well as blood pressure. Rutledge catheter was placed and a urinalysis was obtained. EKG revealed no acute ischemic changes. Chest x-ray revealed no acute cardiopulmonary process. Laboratory studies were remarkable for a negative troponin. Ammonia is negative.Patient's temperature studies were remarkable for a hyponatremia of 119, as well as a hypochloremia of 84. Troponin is negative. Urinalysis does not reveal any signs of acute infection. Tox workup is negative. Lactate is pending at this time. Due to the patient's hyponatremia, she will be started on a 3% hypertonic saline drip at 25 mL an hour for 10 hours. Goal sodium is 129.This time, patient is requiring Cardizem 2.5 to maintain pressures less than 180 systolic. Due to the Cardizem drip and hypernatremia, she requires ICU admission. I spoke with the ICU attending, who accepted the patient. I spoke with Dr. Nagel of the phone the patient will be admitted under accepted the patient. Patient was therefore admitted to the hospital in serous condition for hypertensive emergency. On reevaluation, patient's mental status is somewhat improved as she is more alert and responsive to questioning. Per family, she is still not back to baseline. - Lab Data Result diagrams: 01/21/21 20:55 01/21/21 20:55 Lab Results 01/21/21 01/21/21 01/21/21 Range/Units 20:38 20:55 20:55 WBC 10.7 H (3.8-10.6) k/uL RBC 4.19 (3.80-5.40) m/uL Hgb 12.4 (11.4-16.0) gm/dL Hct 35.8 (34.0-46.0) % MCV 85.5 (80.0-100.0) fL MCH 29.5 (25.0-35.0) pg MCHC 34.5 (31.0-37.0) g/dL RDW 13.8 (11.5-15.5) % Plt Count 206 (150-450) k/uL MPV 7.7 Neutrophils % 81 % Lymphocytes % 12 % Monocytes % 5 % Eosinophils % 1 % Basophils % 0 % Neutrophils # 8.6 H (1.3-7.7) k/uL Lymphocytes # 1.3 (1.0-4.8) k/uL Monocytes # 0.5 (0-1.0) k/uL Eosinophils # 0.1 (0-0.7) k/uL Basophils # 0.0 (0-0.2) k/uL PT 11.1 (9.0-12.0) sec INR 1.0 (<1.2) APTT 24.9 (22.0-30.0) sec Sodium (137-145) mmol/L Potassium (3.5-5.1) mmol/L Chloride (98-107) mmol/L Carbon Dioxide (22-30) mmol/L Anion Gap mmol/L BUN (7-17) mg/dL Creatinine (0.52-1.04) mg/dL Est GFR (CKD-EPI)AfAm (>60 ml/min/1.73 sqM) Est GFR (CKD-EPI)NonAf (>60 ml/min/1.73 sqM) Glucose (74-99) mg/dL POC Glucose (mg/dL) 192 H (75-99) mg/dL POC Glu Corn Husker Saida Cervantes Calcium (8.4-10.2) mg/dL Total Bilirubin (0.2-1.3) mg/dL AST (14-36) U/L ALT (4-34) U/L Alkaline Phosphatase (38-126) U/L Ammonia (<30) umol/L Troponin I (0.000-0.034) ng/mL Total Protein (6.3-8.2) g/dL Albumin (3.5-5.0) g/dL Urine Color Urine Appearance (Clear) Urine pH (5.0-8.0) Ur Specific [place] (1.001-1.035) Urine Protein (Negative) Urine Glucose (UA) (Negative) Urine Ketones (Negative) Urine Blood (Negative) Urine Nitrite (Negative) Urine Bilirubin (Negative) Urine Urobilinogen (<2.0) mg/dL Ur Leukocyte Esterase (Negative) Urine RBC (0-5) /hpf Urine WBC (0-5) /hpf Ur Squamous Epith Cells (0-4) /hpf Urine Opiates Screen (NotDetected) Ur Oxycodone Screen (NotDetected) Urine Methadone Screen (NotDetected) Ur Propoxyphene Screen (NotDetected) Ur Barbiturates Screen (NotDetected) U Tricyclic Antidepress (NotDetected) Ur Phencyclidine Scrn (NotDetected) Ur Amphetamines Screen (NotDetected) U Methamphetamines Scrn (NotDetected) U Benzodiazepines Scrn (NotDetected) Urine Cocaine Screen (NotDetected) U Marijuana (THC) Screen (NotDetected) Serum Alcohol mg/dL 01/21/21 01/21/21 01/21/21 Range/Units 20:55 20:55 20:55 WBC (3.8-10.6) k/uL RBC (3.80-5.40) m/uL Hgb (11.4-16.0) gm/dL Hct (34.0-46.0) % MCV (80.0-100.0) fL MCH (25.0-35.0) pg MCHC (31.0-37.0) g/dL RDW (11.5-15.5) % Plt Count (150-450) k/uL MPV Neutrophils % % Lymphocytes % % Monocytes % % Eosinophils % % Basophils % % Neutrophils # (1.3-7.7) k/uL Lymphocytes # (1.0-4.8) k/uL Monocytes # (0-1.0) k/uL Eosinophils # (0-0.7) k/uL Basophils # (0-0.2) k/uL PT (9.0-12.0) sec INR (<1.2) APTT (22.0-30.0) sec Sodium 119 L* (137-145) mmol/L Potassium 3.8 (3.5-5.1) mmol/L Chloride 84 L (98-107) mmol/L Carbon Dioxide 19 L (22-30) mmol/L Anion Gap 16 mmol/L BUN 17 (7-17) mg/dL Creatinine 0.72 (0.52-1.04) mg/dL Est GFR (CKD-EPI)AfAm 90 (>60 ml/min/1.73 sqM) Est GFR (CKD-EPI)NonAf 78 (>60 ml/min/1.73 sqM) Glucose 182 H (74-99) mg/dL POC Glucose (mg/dL) (75-99) mg/dL POC Glu Corn Husker ID Calcium 9.1 (8.4-10.2) mg/dL Total Bilirubin 1.1 (0.2-1.3) mg/dL AST 36 (14-36) U/L ALT 19 (4-34) U/L Alkaline Phosphatase 96 (38-126) U/L Ammonia (<30) umol/L Troponin I <0.012 (0.000-0.034) ng/mL Total Protein 7.8 (6.3-8.2) g/dL Albumin 4.8 (3.5-5.0) g/dL Urine Color Light Yellow Urine Appearance Clear (Clear) Urine pH 7.0 (5.0-8.0) Ur Specific [place] 1.022 (1.001-1.035) Urine Protein 1+ H (Negative) Urine Glucose (UA) 2+ H (Negative) Urine Ketones 1+ H (Negative) Urine Blood Negative (Negative) Urine Nitrite Negative (Negative) Urine Bilirubin Negative (Negative) Urine Urobilinogen <2.0 (<2.0) mg/dL Ur Leukocyte Esterase Negative (Negative) Urine RBC <1 (0-5) /hpf Urine WBC 1 (0-5) /hpf Ur Squamous Epith Cells <1 (0-4) /hpf Urine Opiates Screen Not Detected (NotDetected) Ur Oxycodone Screen Not Detected (NotDetected) Urine Methadone Screen Not Detected (NotDetected) Ur Propoxyphene Screen Not Detected (NotDetected) Ur Barbiturates Screen Not Detected (NotDetected) U Tricyclic Antidepress Not Detected (NotDetected) Ur Phencyclidine Scrn Not Detected (NotDetected) Ur Amphetamines Screen Not Detected (NotDetected) U Methamphetamines Scrn Not Detected (NotDetected) U Benzodiazepines Scrn Not Detected (NotDetected) Urine Cocaine Screen Not Detected (NotDetected) U Marijuana (THC) Screen Not Detected (NotDetected) Serum Alcohol <10 mg/dL 01/21/21 Range/Units 20:55 WBC (3.8-10.6) k/uL RBC (3.80-5.40) m/uL Hgb (11.4-16.0) gm/dL Hct (34.0-46.0) % MCV (80.0-100.0) fL MCH (25.0-35.0) pg MCHC (31.0-37.0) g/dL RDW (11.5-15.5) % Plt Count (150-450) k/uL MPV Neutrophils % % Lymphocytes % % Monocytes % % Eosinophils % % Basophils % % Neutrophils # (1.3-7.7) k/uL Lymphocytes # (1.0-4.8) k/uL Monocytes # (0-1.0) k/uL Eosinophils # (0-0.7) k/uL Basophils # (0-0.2) k/uL PT (9.0-12.0) sec INR (<1.2) APTT (22.0-30.0) sec Sodium (137-145) mmol/L Potassium (3.5-5.1) mmol/L Chloride (98-107) mmol/L Carbon Dioxide (22-30) mmol/L Anion Gap mmol/L BUN (7-17) mg/dL Creatinine (0.52-1.04) mg/dL Est GFR (CKD-EPI)AfAm (>60 ml/min/1.73 sqM) Est GFR (CKD-EPI)NonAf (>60 ml/min/1.73 sqM) Glucose (74-99) mg/dL POC Glucose (mg/dL) (75-99) mg/dL POC Glu Corn Husker ID Calcium (8.4-10.2) mg/dL Total Bilirubin (0.2-1.3) mg/dL AST (14-36) U/L ALT (4-34) U/L Alkaline Phosphatase (38-126) U/L Ammonia 10 (<30) umol/L Troponin I (0.000-0.034) ng/mL Total Protein (6.3-8.2) g/dL Albumin (3.5-5.0) g/dL Urine Color Urine Appearance (Clear) Urine pH (5.0-8.0) Ur Specific [place] (1.001-1.035) Urine Protein (Negative) Urine Glucose (UA) (Negative) Urine Ketones (Negative) Urine Blood (Negative) Urine Nitrite (Negative) Urine Bilirubin (Negative) Urine Urobilinogen (<2.0) mg/dL Ur Leukocyte Esterase (Negative) Urine RBC (0-5) /hpf Urine WBC (0-5) /hpf Ur Squamous Epith Cells (0-4) /hpf Urine Opiates Screen (NotDetected) Ur Oxycodone Screen (NotDetected) Urine Methadone Screen (NotDetected) Ur Propoxyphene Screen (NotDetected) Ur Barbiturates Screen (NotDetected) U Tricyclic Antidepress (NotDetected) Ur Phencyclidine Scrn (NotDetected) Ur Amphetamines Screen (NotDetected) U Methamphetamines Scrn (NotDetected) U Benzodiazepines Scrn (NotDetected) Urine Cocaine Screen (NotDetected) U Marijuana (THC) Screen (NotDetected) Serum Alcohol mg/dL - EKG Data -: EKG Interpreted by Me EKG Comments: 12-lead Electrocardiogram Interpretation Note EKG was reviewed and interpreted by myself. 12-lead ECG performed at 2035 is interpreted by me as revealing normal sinus rhythm at a rate of 71 beats per minute. Sula is normal. MD interval is 156 pulse seconds, QRS duration is 118 ms, QTc is 473 ms.. There are isolated T-wave inversions in lead aVL.. R wave progression across the precordium is delayed.. By my interpretation this EKG is non-diagnostic for acute ischemia. Critical Care Time Critical Care Time: Yes Total Critical Care Time: 30 Critical Care Time: Total more than 30 minutes of critical care time, spent reevaluating patient, speak with consulting services, monitoring vital signs, adjusting titratable drips, speaking with family members. Disposition Clinical Impression: Hypertensive emergency, Altered mental status, Hyponatremia Disposition: ADMITTED IP TO THIS HOSP Condition: Serious
[2021-01-21 23:10] LABS: ALT 19 U/L (4-34); AST 36 U/L (14-36); African American GFR (CKD) 90 (>60 ml/min/1.73 sqM); Albumin 4.8 g/dL (3.5-5.0); Alcohol <10 mg/dL; Alkaline Phosphatase 96 U/L (38-126); Anion Gap 16 mmol/L; Blood Urea Nitrogen 17 mg/dL (7-17); Calcium 9.1 mg/dL (8.4-10.2); Carbon Dioxide 19 mmol/L (22-30); Chloride 84 mmol/L (98-107); Glucose 182 mg/dL (74-99); Non-African American GFR(CKD) 78 (>60 ml/min/1.73 sqM); Potassium 3.8 mmol/L (3.5-5.1); Total Bilirubin 1.1 mg/dL (0.2-1.3); Total Protein 7.8 g/dL (6.3-8.2)
[2021-01-21 23:11] LABS: Appearance,Urine Clear (Clear); Bilirubin,Urine Negative (Negative); Blood,Urine Negative (Negative); Color,Urine Light Yellow; Glucose,Urine (UA) 2+ (Negative); Ketones,Urine 1+ (Negative); Leukocyte Esterase,Urine Negative (Negative); Nitrite,Urine Negative (Negative); Protein,Urine 1+ (Negative); RBC,Urine <1 /hpf (0-5); Specific Gravity,Urine 1.022 (1.001-1.035); Squamous Epithelial Cell,Urine <1 /hpf (0-4); Urobilinogen,Urine <2.0 mg/dL (<2.0); WBC,Urine 1 /hpf (0-5)
[2021-01-21 23:23] LABS: Amphetamine Screen,Urine Not Detected (NotDetected); Barbiturate Screen,Urine Not Detected (NotDetected); Benzodiazepines Screen,Urine Not Detected (NotDetected); Cocaine Screen,Urine Not Detected (NotDetected); Methadone Screen, Urine Not Detected (NotDetected); Opiate Screen,Urine Not Detected (NotDetected); Oxycodone Screen, Urine Not Detected (NotDetected); Phencyclidine Screen,Urine Not Detected (NotDetected); Tricyclic Antidepressant,Urine Not Detected (NotDetected); Urn Cannabinoid Scrn Not Detected (NotDetected)
[2021-01-21 23:26] LABS: Sodium 119 mmol/L (137-145)
[2021-01-21] MEDS ORDERED: SODIUM CHLORIDE 0.9% 1,000 ML IV ONE (23:28)
[2021-01-21] MEDS ORDERED: SODIUM CHLORIDE 0.9% 1,000 ML IV SCH (23:30)
[2021-01-22] MEDS: SODIUM CHLORIDE 3% IV SCH ×2 (00:27→10:10)
[2021-01-22] MEDS: [UNRECOGNIZED DRUG - OTHER] IV SCH ×2 (00:27→10:10)
[2021-01-22] MEDS ORDERED: LORazepam 2 MG/ML INJ IV STA (02:15)
[2021-01-22 04:38] LABS: RBC 4.07 m/uL (3.80-5.40); WBC 10.7 k/uL (3.8-10.6)
[2021-01-22 04:39] LABS: Basophils % (A) 0 %; Eosinophils % (A) 0 %; HCT 35.5 % (34.0-46.0); HGB 12.4 gm/dL (11.4-16.0); Lymphocytes # (A) 0.5 k/uL (1.0-4.8); Lymphocytes % (A) 4 %; MCH 30.6 pg (25.0-35.0); MCV 87.2 fL (80.0-100.0); Monocytes # (A) 0.2 k/uL (0-1.0); Monocytes % (A) 2 %; Neutrophils # (A) 9.9 k/uL (1.3-7.7); Neutrophils % (A) 93 %; Platelet Count 187 k/uL (150-450); RDW 13.2 % (11.5-15.5)
[2021-01-22 04:52] LABS: African American GFR (CKD) >90 (>60 ml/min/1.73 sqM); Anion Gap 14 mmol/L; Blood Urea Nitrogen 15 mg/dL (7-17); Calcium 8.4 mg/dL (8.4-10.2); Carbon Dioxide 19 mmol/L (22-30); Chloride 88 mmol/L (98-107); Glucose 262 mg/dL (74-99); Non-African American GFR(CKD) 82 (>60 ml/min/1.73 sqM); Potassium 3.6 mmol/L (3.5-5.1); Sodium 121 mmol/L (137-145)
[2021-01-22] MEDS: LEVOTHYROXINE 50 MCG TAB PO SCH (07:12)
[2021-01-22 08:27] LABS: Glucose,Whole Blood 271 mg/dL (75-99)
[2021-01-22 10:33] LABS: ALT 18 U/L (4-34); AST 29 U/L (14-36); African American GFR (CKD) >90 (>60 ml/min/1.73 sqM); Alkaline Phosphatase 81 U/L (38-126); Anion Gap 10 mmol/L; Blood Urea Nitrogen 15 mg/dL (7-17); Calcium 8.7 mg/dL (8.4-10.2); Carbon Dioxide 22 mmol/L (22-30); Chloride 92 mmol/L (98-107); Glucose 254 mg/dL (74-99); Non-African American GFR(CKD) 80 (>60 ml/min/1.73 sqM); Sodium 124 mmol/L (137-145); Total Bilirubin 0.9 mg/dL (0.2-1.3); Total Protein 6.8 g/dL (6.3-8.2)
[2021-01-22 10:49] LABS: Glucose,Whole Blood 270 mg/dL (75-99)
[2021-01-22] MEDS ORDERED: Magnesium Replacement Protocol 1 EACH MISC MISCELLANE PRN (10:53)
[2021-01-22] MEDS ORDERED: PANTOPRAZOLE 40 MG/10 ML VIAL IV SCH (11:15)
[2021-01-22] MEDS ORDERED: SODIUM CHLORIDE 0.45% 1,000 ML IV SCH (11:30)
--- NOTE | 2021-01-22 13:05 | P.CNPUL ---
History of Present Illness Consult date: 01/22/21 Requesting physician: Elan Nagel Reason for consult: other (Hypertensive emergency and hyponatremia) Chief complaint: Altered mental status History of present illness: This is an 85-year-old female with history of multiple medical problems including coronary artery disease, hypertension, previous CVA, left eye blindness, type 2 diabetes, GERD, hypothyroidism, patient was brought into the E R last night by her granddaughter mostly with acute altered mental status. Her granddaughter happened to visit her grandmother, and she was noted to be confused, oriented 1/self, patient was not talkative, has been apparently experiencing intermittent episodes of nausea and vomiting, patient has been likely noncompliant with her medications for blood pressure and for diabetes, the patient herself could not give any adequate history. Patient was brought into the ER and she was found to have significantly elevated blood pressure in the 240 range systolic, her sodium was noted to be extremely low at 119, patient was admitted to the ICU, and I was asked to see her on consultation. I was noti fied initially by the ER physician on this patient, she was treated with cardene drip, and I have recommended 3% saline to be given over 10 hours at the rate of 25 mL per hour. And her sodium went up to 124, from 119 initially, I transitioned her IV fluid to D5 45 at 75 mL per hour. Patient received labetalol while in the ER, and by the time I saw the patient, her blood pressure was actually in the normal range and this was done in the ER. Sodium went up to 124, renal profile is normal, bicarb is 22, blood sugar was 270, and CBC was normal. Supposedly the patient is on multiple medications at home including DiaBeta, amlodipine, omeprazole, lisinopril with hydrochlorothiazide, levothyroxine, Plavix, and Lipitor. Again there is question of compliance with medications at home. Workup in the ER included CT angiogram of the head and neck, and it was basically unremarkable. Chest x-ray showed cardiomegaly and no active disease. Review of Systems ROS unobtainable: due to mental status Past Medical History Past Medical History: Coronary Artery Disease (CAD), Chest Pain / Angina, CVA/TIA, Diabetes Mellitus, Eye Disorder, GERD/Reflux, Hyperlipidemia, Hypertension, Osteoarthritis (OA), Syncope, Thyroid Disorder Additional Past Medical History / Comment(s): NIDDM type II, neuropathy bilateral hands, 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, dysphagia,esophageal strictures with dilation, hiatal hernia, L eye diabetic retinopathy/R eye blindness, bilateral [employer], UTIS/urinary leakage, past bilateral feet sores/osteomylitis, generalized pain, bilateral carpal tunnel syndrome, vertigo, hypothyroid, anemia History of Any Multi-Drug Resistant Organisms: None Reported Past Surgical History: Bladder Surgery, Cholecystectomy, Coronary Bypass/CABG, Heart Catheterization, Hysterectomy Additional Past Surgical History / Comment(s): 2007 CABG 4 vessel, EGDs with dilations, colonoscopies, cataract removal, D&C, bladder suspension, PICC, loop recorder. Past Anesthesia/Blood Transfusion Reactions: Motion Sickness, Postoperative Nausea & Vomiting (PONV) Past Psychological History: No Psychological Hx Reported Smoking Status: Never smoker Past Alcohol Use History: None Reported Past Drug Use History: None Reported - Past Family History Father Family Medical History: Liver Disease Additional Family Medical History / Comment(s): Father of cirrhosis. He was a drinker. Mother History Unknown: Yes Family Medical History: Unable to Obtain Additional Family Medical History / Comment(s): Pt states she does not know her mother's medical history, but knows she at the age of 62 yrs.. Son(s) Family Medical History: Unable to Obtain, Renal Disease Daughter(s) Family Medical History: Cancer Medications and Allergies Home Medications Medication Instructions Recorded Confirmed Type glyBURIDE [Diabeta] 5 mg PO AC-BID 05/24/19 01/21/21 History Lisinopril-Hctz 20-12.5 mg 1 tab PO BID 08/20/19 01/21/21 History [Zestoretic 20-12.5] Omeprazole [PriLOSEC] 20 mg PO AC-BRKFST 01/06/20 01/21/21 History Atorvastatin [Lipitor] 40 mg PO HS 12/02/20 01/21/21 History Clopidogrel [Plavix] 75 mg PO DAILY #0 12/04/20 01/21/21 Rx Levothyroxine Sodium [Synthroid] 50 mcg PO DAILY #0 12/04/20 01/21/21 Rx amLODIPine [Norvasc] 10 mg PO DAILY #30 tab 12/04/20 01/21/21 Rx Allergies Allergy/AdvReac Type Severity Reaction Status Date / Time aspirin Allergy Rash/Hives Verified 01/21/21 21:25 fish derived Allergy Rash/Hives Verified 01/21/21 21:25 Iodinated Contrast Media Allergy Rash/Hives Verified 01/21/21 21:25 [Iodinated Contrast Media - IV Dye] Iodine and Iodide Containing Allergy Rash/Hives Verified 01/21/21 21:25 Produc shellfish derived [Shellfish] Allergy Rash/Hives Verified 01/21/21 21:25 sulfamethoxazole Allergy Itching Verified 01/21/21 21:25 [From Bactrim] trimethoprim [From Bactrim] Allergy Itching Verified 01/21/21 21:25 Physical Exam Vitals: Vital Signs Temp Pulse Pulse Resp BP Pulse Ox 01/22/21 12:00 63 26 H 164/62 97 01/22/21 11:45 59 L 15 157/67 98 01/22/21 11:30 61 20 149/93 97 01/22/21 11:15 62 19 171/67 95 01/22/21 11:00 98 F 63 59 L 16 167/66 95 01/22/21 10:45 64 16 176/67 95 01/22/21 10:13 67 20 168/71 97 01/22/21 10:12 97.9 F 22 97 01/22/21 09:08 66 20 147/71 96 01/22/21 08:13 68 20 138/59 100 01/22/21 07:41 67 20 186/74 97 01/22/21 06:00 66 160/72 95 01/22/21 05:00 62 145/65 96 01/22/21 04:00 67 130/62 96 01/22/21 03:00 66 141/63 95 01/22/21 02:46 66 136/91 96 01/22/21 02:30 67 18 200/89 94 L 01/22/21 01:00 67 16 158/54 95 01/22/21 00:00 62 18 175/67 100 01/21/21 22:50 160/67 01/21/21 22:40 162/74 01/21/21 22:35 159/65 01/21/21 22:30 70 18 165/66 100 01/21/21 22:28 67 98 01/21/21 22:10 139/58 01/21/21 22:00 139/54 01/21/21 21:55 146/59 01/21/21 21:45 165/56 01/21/21 21:40 176/62 01/21/21 21:35 65 18 186/62 92 L 01/21/21 21:17 70 18 173/91 01/21/21 21:10 69 20 225/72 98 01/21/21 20:25 98.2 F 69 20 224/85 97 Intake and Output 01/21/21 01/22/21 01/22/21 22:59 06:59 14:59 Intake Total 50.000 6.25 50 Output Total 2800 435 Balance 50.000 -2793.75 -385 Intake: IV 50 Sodium Chloride 3%( 50 Hypertonic) 250 ml @ 25 mls/hr IV .Q10H [facility] Rx#: [id number] Intake, IV Titration 50.000 6.25 Amount niCARdipine 20 mg In 50.000 6.25 Sodium Chloride 0.9% 192 ml @ 5 MG/HR 50 mls/hr IV .Q4H [facility] Rx#:[id number] Output: Urine 2800 435 Uretheral ([place]) 400 Other: Voiding Method Indwelling Catheter Weight 78.018 kg General: Revealed 85-year-old female in no distress. HEAD: Atraumatic, normocephalic. 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 She is blind. Left eye has pupils 3 mm and equally reactive to light. EOMI does appear to be intact. Patient will alert to voice. ENT: Hearing grossly intact, normal oropharynx. RESPIRATORY: Symmetrical chest expansion, clear breath sound bilaterally no crackles or rhonchi or wheezes. C/V: Normal S1 and S2, no S3 gallop, no murmur. ABD: Soft nontender no megaly no rebound no guarding. EXT: Clubbing edema or cyanosis. SKIN: No rashes. NEURO: Patient is alert and oriented to self as well as time. She is not o riented to place.. Follow simple instructions. Results - Laboratory Findings CBC and BMP: 01/22/21 04:14 01/22/21 09:56 PT/INR, D-dimer PT 11.1 sec (9.0-12.0) 01/21/21 20:55 INR 1.0 (<1.2) 01/21/21 20:55 Abnormal lab findings: Abnormal Labs 01/21/21 01/21/21 01/21/21 20:38 20:55 20:55 WBC 10.7 H Neutrophils # 8.6 H Lymphocytes # Sodium Chloride Carbon Dioxide Glucose POC Glucose (mg/dL) 192 H Magnesium Urine Protein 1+ H Urine Glucose (UA) 2+ H Urine Ketones 1+ H 01/21/21 01/22/21 01/22/21 20:55 00:34 04:14 WBC Neutrophils # Lymphocytes # Sodium 119 L* 119 L* 121 L Chloride 84 L 88 L Carbon Dioxide 19 L 19 L Glucose 182 H 262 H POC Glucose (mg/dL) Magnesium 1.0 L Urine Protein Urine Glucose (UA) Urine Ketones 01/22/21 01/22/21 01/22/21 04:14 08:24 09:56 WBC 10.7 H Neutrophils # 9.9 H Lymphocytes # 0.5 L Sodium 124 L Chloride 92 L Carbon Dioxide Glucose 254 H POC Glucose (mg/dL) 271 H Magnesium Urine Protein Urine Glucose (UA) Urine Ketones 01/22/21 10:47 WBC Neutrophils # Lymphocytes # Sodium Chloride Carbon Dioxide Glucose POC Glucose (mg/dL) 270 H Magnesium Urine Protein Urine Glucose (UA) Urine Ketones - Diagnostic Findings Additional studies: Multiple diagnostic studies were reviewed, and basically unremarkable including CT angiogram of the head and neck, CT of the brain, and chest x-ray. Assessment and Plan Assessment: Impression: Hypertensive emergency. Hypovolemic hyponatremia. Mental status changes secondary to above, accelerated hypertension and hypo- bulimic hyponatremia. Dyslipidemia. Type 2 diabetes. Coronary artery disease and previous CABG in 2008. Degenerative joint disease. Diabetic peripheral neuropathy. Chronic ataxia and gait dysfunction, uses a walker, exact etiology is not clear. History of esophageal stricture. History of hiatal hernia. Diabetic retinopathy. Chronic blindness right eye. Coronary artery disease and previous CABG in 2007. Recommendation: I evaluated the patient in the ER, recommended 3% saline for her hypernatremia with neurological symptoms. Restart patient on oral blood pressure medication in the blood pressure goes up again. In the meantime her Cardene drip is on hold. Resume home meds. Will admit the patient to the ICU for at least 24 hour observation. GI and DVT prophylaxis. Close monitoring in the ICU. Mostly monitor blood pressure and monitor her hyponatremia. We'll continue to follow. Time with Patient: Greater than 30
[2021-01-22] MEDS: MAGNESIUM SULFATE-D5W PMX 1 GM in DEXTROSE/WATER 1 100ML.BAG IVPB SCH ×3 (13:09→19:23)
[2021-01-22] MEDS: CLOPIDOGREL 75 MG TAB PO SCH (13:12)
[2021-01-22] MEDS: amLODIPine 10 MG TAB PO SCH (13:12)
[2021-01-22 13:17] LABS: Glucose,Whole Blood 239 mg/dL (75-99)
[2021-01-22] MEDS: LISINOPRIL-HCTZ 20-12.5 MG 1 EACH TAB PO SCH ×2 (13:19→22:32)
[2021-01-22] MEDS: INSULIN ASPART (NovoLOG) 100 UNIT/ML VIAL SQ SCH ×3 (13:31→21:05)
[2021-01-22 16:56] LABS: Glucose,Whole Blood 251 mg/dL (75-99)
[2021-01-22] MEDS: DEXTROSE 5% IN WATER 1,000 ML IV SCH (18:00)
[2021-01-22] MEDS ORDERED: Potassium Replacement Protocol 1 EACH MISC MISCELLANE PRN (19:34)
[2021-01-22] MEDS ORDERED: POTASSIUM BICARBONATE/CIT AC 20 MEQ TABLET.EFF NG-TUBE SCH (20:00)
[2021-01-22 20:56] LABS: Glucose,Whole Blood 346 mg/dL (75-99)
[2021-01-22] MEDS: HEPARIN SODIUM,PORCINE/PF 5,000 UNIT/0.5 ML SYRINGE SQ SCH (20:58)
[2021-01-22] MEDS: ATORVASTATIN 40 MG TAB PO SCH (20:58)
--- NOTE | 2021-01-22 21:10 | P.HPIM ---
History of Present Illness H&P Date: 01/22/21 Chief Complaint: Increasing confusion History of presenting complaint: This is a pleasant 85-year-old patient who follows with Dr. Ramirez. Chronic stable medical conditions include coronary coronary artery disease, left-sided weakness from prior stroke, diabetes, blind in the right eye, hypertension, hyperlipidemia, hypothyroid, chronic pain, osteoarthritis, peripheral n europathy, esophageal strictures , urinary incontinence. baseline uses a walker. Lives with her . Patient is brought to the ER by her granddaughter. She is found to be a bit confused only a low 1. Was not really talking. Having some nausea and vomiting. She is not able to give much of a history in the ER. Blood pressure is found to be above systolic 240. Sodium down to 119. Patient is a patient with ICU. Started on hypertonic saline. Was initially given IV labetalol. Patient does drink excessive water at home. Today: Reclining in bed in ICU. Daughter the bedside. Able to answer simple questions Review of systems: GEN.: Tired EYES: Blind in the right eye HEENT: Decreased hearing NECK: None RESPIRATORY: None CARDIOVASCULAR: None GASTROINTESTINAL: None GENITOURINARY: None MUSCULOSKELETAL: Joint pains, muscle weakness LYMPHATICS: None HEMATOLOGICAL: None PSYCHIATRY: None NEUROLOGICAL: Peripheral neuropathy, blind in the right eye Social history: Does not smoke or drink alcohol. . Does use a walker Physical examination: VITAL SIGNS: 98.2, 69, 20, 225 a 72, 98% room air: Upon presentation GENERAL: BMI 30.5, reclining in bed tired, awake EYES: Blind in the right eye HEENT: External appearance of nose and ears normal, oral cavity grossly normal. NECK: JVD not raised; masses not palpable. HEART: First and second heart sounds are normal; no edema. LUNGS: Respiratory rate normal; clear to auscultation. ABDOMEN: Soft, nontender, liver spleen not palpable, no masses palpable. PSYCH: Answering simple questions MUSCULOSKELETAL: evidence of OA in the joints NEUROLOGICAL: Chronic weakness on the left side. Blind in the right eye... INVESTIGATIONS, reviewed in the clinical context Sodium 124 creatinine 0.7 serum osmolality 265 Admission labs: Sodium 119 bicarb 19 creatinine 0.7 to UA positive for protein, glucose, ketone Urine drug screen negative Assessment and plan: -Hypoosmolar, hypervolemia hyponatremia. Symptomatic Patient's IV fluids be discontinued. Fluid restriction. Avoid free water. Hypertonic saline -Accelerated hypertension. Norvasc, Lipitor, Zestoretic. Follow blood pressure -chronic right shoulder dysfunction -Coronary artery disease, prior history of bypass 2007 Continue with Lopressor, Zestoretic -Diabetes mellitus type 2 on oral hypoglycemic, uncontrolled with hyperglycemia glyburide ; follow Accu-Cheks. Dietitian -Blind in the right eye, chronic -Hyperlipidemia Continue Lipitor -Hypothyroidism Continue Synthroid -Primary osteoarthritis Continue pain medications -Diabetic peripheral neuropathy -Chronic urinary incontinence -Chronic gait dysfunction uses a walker Patient is in the ICU. Getting hypertonic saline. DC IV fluids. Fluid restriction. Avoid free fluids. Repeat labs. Care was discussed with the patient and family the bedside. Questions answered. Given the complexity and severity of patient's condition expect the patient to be in the hospital at least for 2 overnights 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, dysphagia,esophageal strictures with dilation, hiatal hernia, L eye diabetic retinopathy/R eye blindness, bilateral [place], UTIS/urinary leakage, past bilateral feet sores/osteomylitis, generalized pain, bilateral carpal tunnel syndrome, vertigo, hypothyroid, anemia History of Any Multi-Drug Resistant Organisms: None Reported Past Surgical History: Bladder Surgery, Cholecystectomy, Coronary Bypass/CABG, Heart Catheterization, Hysterectomy Additional Past Surgical History / Comment(s): 2007 CABG 4 vessel, EGDs with dilations, colonoscopies, cataract removal, D&C, bladder suspension, PICC, loop recorder. Past Anesthesia/Blood Transfusion Reactions: Motion Sickness, Postoperative Nausea & Vomiting (PONV) Past Psychological History: No Psychological Hx Reported Smoking Status: Never smoker Past Alcohol Use History: None Reported Past Drug Use History: None Reported - Past Family History Father Family Medical History: Liver Disease Additional Family Medical History / Comment(s): Father of cirrhosis. He was a drinker. Mother History Unknown: Yes Family Medical History: Unable to Obtain Additional Family Medical History / Comment(s): Pt states she does not know her mother's medical history, but knows she at the age of 62 yrs.. Son(s) Family Medical History: Unable to Obtain, Renal Disease Daughter(s) Family Medical History: Cancer Medications and Allergies Home Medications Medication Instructions Recorded Confirmed Type glyBURIDE [Diabeta] 5 mg PO AC-BID 05/24/19 01/21/21 History Lisinopril-Hctz 20-12.5 mg 1 tab PO BID 08/20/19 01/21/21 History [Zestoretic 20-12.5] Omeprazole [PriLOSEC] 20 mg PO AC-BRKFST 01/06/20 01/21/21 History Atorvastatin [Lipitor] 40 mg PO HS 12/02/20 01/21/21 History Clopidogrel [Plavix] 75 mg PO DAILY #0 12/04/20 01/21/21 Rx Levothyroxine Sodium [Synthroid] 50 mcg PO DAILY #0 12/04/20 01/21/21 Rx amLODIPine [Norvasc] 10 mg PO DAILY #30 tab 12/04/20 01/21/21 Rx Allergies Allergy/AdvReac Type Severity Reaction Status Date / Time aspirin Allergy Rash/Hives Verified 01/21/21 21:25 fish derived Allergy Rash/Hives Verified 01/21/21 21:25 Iodinated Contrast Media Allergy Rash/Hives Verified 01/21/21 21:25 [Iodinated Contrast Media - IV Dye] Iodine and Iodide Containing Allergy Rash/Hives Verified 01/21/21 21:25 Produc shellfish derived [Shellfish] Allergy Rash/Hives Verified 01/21/21 21:25 sulfamethoxazole Allergy Itching Verified 01/21/21 21:25 [From Bactrim] trimethoprim [From Bactrim] Allergy Itching Verified 01/21/21 21:25 Physical Exam Vitals: Vital Signs Temp Pulse Resp BP Pulse Ox 01/22/21 10:13 67 20 168/71 97 01/22/21 10:12 97.9 F 22 97 01/22/21 09:08 66 20 147/71 96 01/22/21 08:13 68 20 138/59 100 01/22/21 07:41 67 20 186/74 97 01/22/21 06:00 66 160/72 95 01/22/21 05:00 62 145/65 96 01/22/21 04:00 67 130/62 96 01/22/21 03:00 66 141/63 95 01/22/21 02:46 66 136/91 96 01/22/21 02:30 67 18 200/89 94 L 01/22/21 01:00 67 16 158/54 95 01/22/21 00:00 62 18 175/67 100 01/21/21 22:50 160/67 01/21/21 22:40 162/74 01/21/21 22:35 159/65 01/21/21 22:30 70 18 165/66 100 01/21/21 22:28 67 98 01/21/21 22:10 139/58 01/21/21 22:00 139/54 01/21/21 21:55 146/59 01/21/21 21:45 165/56 01/21/21 21:40 176/62 01/21/21 21:35 65 18 186/62 92 L 01/21/21 21:17 70 18 173/91 01/21/21 21:10 69 20 225/72 98 01/21/21 20:25 98.2 F 69 20 224/85 97 Intake and Output 01/21/21 01/22/21 01/22/21 22:59 06:59 14:59 Intake Total 50.000 6.25 Output Total 2800 200 Balance 50.000 -2793.75 -200 Intake: Intake, IV Titration 50.000 6.25 Amount niCARdipine 20 mg In 50.000 6.25 Sodium Chloride 0.9% 192 ml @ 5 MG/HR 50 mls/hr IV .Q4H [facility] Rx#:[id number] Output: Urine 2800 200 Uretheral ([place]) 400 Other: Weight 78.018 kg Results CBC & Chem 7: 01/22/21 04:14 01/22/21 15:10 Labs: Abnormal Lab Results - Last 24 Hours (Table) 01/21/21 01/21/21 01/21/21 Range/Units 20:38 20:55 20:55 WBC 10.7 H (3.8-10.6) k/uL Neutrophils # 8.6 H (1.3-7.7) k/uL Lymphocytes # (1.0-4.8) k/uL Sodium (137-145) mmol/L Chloride (98-107) mmol/L Carbon Dioxide (22-30) mmol/L Glucose (74-99) mg/dL POC Glucose (mg/dL) 192 H (75-99) mg/dL Magnesium (1.6-2.3) mg/dL Urine Protein 1+ H (Negative) Urine Glucose (UA) 2+ H (Negative) Urine Ketones 1+ H (Negative) 01/21/21 01/22/21 01/22/21 Range/Units 20:55 00:34 04:14 WBC (3.8-10.6) k/uL Neutrophils # (1.3-7.7) k/uL Lymphocytes # (1.0-4.8) k/uL Sodium 119 L* 119 L* 121 L (137-145) mmol/L Chloride 84 L 88 L (98-107) mmol/L Carbon Dioxide 19 L 19 L (22-30) mmol/L Glucose 182 H 262 H (74-99) mg/dL POC Glucose (mg/dL) (75-99) mg/dL Magnesium 1.0 L (1.6-2.3) mg/dL Urine Protein (Negative) Urine Glucose (UA) (Negative) Urine Ketones (Negative) 01/22/21 01/22/21 01/22/21 Range/Units 04:14 08:24 09:56 WBC 10.7 H (3.8-10.6) k/uL Neutrophils # 9.9 H (1.3-7.7) k/uL Lymphocytes # 0.5 L (1.0-4.8) k/uL Sodium 124 L (137-145) mmol/L Chloride 92 L (98-107) mmol/L Carbon Dioxide (22-30) mmol/L Glucose 254 H (74-99) mg/dL POC Glucose (mg/dL) 271 H (75-99) mg/dL Magnesium (1.6-2.3) mg/dL Urine Protein (Negative) Urine Glucose (UA) (Negative) Urine Ketones (Negative)
[2021-01-22 23:03] LABS: Glucose,Whole Blood 277 mg/dL (75-99)
[2021-01-22] MEDS: INSULIN REGULAR 100 UNIT in SODIUM CHLORIDE 0.9% 100 ML IV SCH (23:11)
[2021-01-22 23:56] LABS: Glucose,Whole Blood 238 mg/dL (75-99)
[2021-01-23 01:17] LABS: Glucose,Whole Blood 104 mg/dL (75-99)
[2021-01-23 02:00] LABS: Glucose,Whole Blood 103 mg/dL (75-99)
[2021-01-23 03:21] LABS: Glucose,Whole Blood 158 mg/dL (75-99)
[2021-01-23] MEDS: INSULIN REGULAR 100 UNIT in SODIUM CHLORIDE 0.9% 100 ML IV SCH (03:28)
[2021-01-23 04:16] LABS: Glucose,Whole Blood 144 mg/dL (75-99)
[2021-01-23 04:16] LABS: Basophils % (A) 0 %; Eosinophils # (A) 0.1 k/uL (0-0.7); Eosinophils % (A) 0 %; HCT 31.8 % (34.0-46.0); HGB 11.4 gm/dL (11.4-16.0); Lymphocytes # (A) 1.1 k/uL (1.0-4.8); Lymphocytes % (A) 10 %; MCH 30.7 pg (25.0-35.0); MCHC 35.7 g/dL (31.0-37.0); MCV 86.1 fL (80.0-100.0); Mean Platelet Volume 8.1; Monocytes # (A) 0.8 k/uL (0-1.0); Monocytes % (A) 8 %; Neutrophils # (A) 9.1 k/uL (1.3-7.7); Neutrophils % (A) 81 %; Platelet Count 186 k/uL (150-450); RDW 13.5 % (11.5-15.5); WBC 11.2 k/uL (3.8-10.6)
[2021-01-23 04:28] LABS: Calcium 8.4 mg/dL (8.4-10.2); Magnesium 2.2 mg/dL (1.6-2.3); Potassium 3.9 mmol/L (3.5-5.1)
[2021-01-23] MEDS: DEXTROSE 5% IN WATER 1,000 ML IV SCH (05:33)
[2021-01-23] MEDS ORDERED: POTASSIUM BICARBONATE/CIT AC 20 MEQ TABLET.EFF PO ONE (05:35)
[2021-01-23 05:37] LABS: Glucose,Whole Blood 159 mg/dL (75-99)
[2021-01-23] MEDS: LEVOTHYROXINE 50 MCG TAB PO SCH (05:39)
[2021-01-23] MEDS: PANTOPRAZOLE 40 MG TABLET PO SCH (06:35)
[2021-01-23 06:44] LABS: Glucose,Whole Blood 165 mg/dL (75-99)
[2021-01-23 07:16] LABS: Glucose,Whole Blood 159 mg/dL (75-99)
[2021-01-23 09:25] LABS: Glucose,Whole Blood 228 mg/dL (75-99)
[2021-01-23] MEDS: amLODIPine 10 MG TAB PO SCH (10:10)
[2021-01-23] MEDS: CLOPIDOGREL 75 MG TAB PO SCH (10:10)
[2021-01-23] MEDS: HEPARIN SODIUM,PORCINE/PF 5,000 UNIT/0.5 ML SYRINGE SQ SCH ×2 (10:10→21:18)
[2021-01-23 10:19] LABS: Glucose,Whole Blood 285 mg/dL (75-99)
[2021-01-23] MEDS: LISINOPRIL-HCTZ 20-12.5 MG 1 EACH TAB PO SCH ×2 (10:23→21:59)
[2021-01-23 11:03] LABS: Glucose,Whole Blood 232 mg/dL (75-99)
[2021-01-23] MEDS: SODIUM CHLORIDE 0.9% 1,000 ML IV SCH (11:13)
[2021-01-23 11:55] VITALS: BMI 27.0
[2021-01-23 12:03] LABS: Glucose,Whole Blood 143 mg/dL (75-99)
--- NOTE | 2021-01-23 12:05 | P.PN ---
Subjective Progress Note Date: 01/23/21 Principal diagnosis: Severe hypovolemic hyponatremia and hypertensive emergency This is an 85-year-old female with history of multiple medical problems including coronary artery disease, hypertension, previous CVA, left eye blindness, type 2 diabetes, GERD, hypothyroidism, patient was brought into the ER last night by her granddaughter mostly with acute altered mental status. Her granddaughter happened to visit her grandmother, and she was noted to be confused, oriented 1/self, patient was not talkative, has been apparently experiencing intermittent episodes of nausea and vomiting, patient has been likely noncompliant with her medications for blood pressure and for diabetes, the patient herself could not give any adequate history. Patient was brought into the ER and she was found to have significantly elevated blood pressure in the 240 range systolic, her sodium was noted to be extremely low at 119, patient was admitted to the ICU, and I was asked to see her on consultation. I was notified initially by the ER physician on this patient, she was treated with car dene drip, and I have recommended 3% saline to be given over 10 hours at the rate of 25 mL per hour. And her sodium went up to 124, from 119 initially, I transitioned her IV fluid to D5 45 at 75 mL per hour. Patient received labetalol while in the ER, and by the time I saw the patient, her blood pressure was actually in the normal range and this was done in the ER. Sodium went up to 124, renal profile is normal, bicarb is 22, blood sugar was 270, and CBC was normal. Supposedly the patient is on multiple medications at home including DiaBeta, amlodipine, omeprazole, lisinopril with hydrochlorothiazide, levothyroxine, Plavix, and Lipitor. Again there is question of compliance with medications at home. Workup in the ER included CT angiogram of the head and neck, and it was basically unremarkable. Chest x-ray showed cardiomegaly and no active disease. Reevaluated today on 01/23/2021, patient remains in the ICU, she is presently on room air, she is hemodynamically stable, and her blood pressure seems to be much better control. Yesterday the patient was transitioned from hypertonic saline to D5W at 75 mL/h, however her sodium is holding now at 123, did not change much over the last 12 hours, it was 124 yesterday, hence I'm changing her IV fluid 2.9 normal saline, and I'm recommending that we titrate the insulin down and possibly discontinue. Patient has a urine output of 200 mL per hour. Her IV fluid will be 0.9 normal saline at 75 mL per hour. And we will continue to mon itor her sodium. Today it is again 124. Her bicarb is 21, BUN is 27 creatinine 1.01. DC is relatively normal. Initial sodium on presentation was as low as 119. Clinically the patient is feeling much better, she is awake, alert oriented 3, she has no gross focal deficits, mental status has significantly improved with slight correction of her hyponatremia and with her blood pressure control. Hence I believe her mental status change was related to hyponatremia and hypertensive emergency. Objective - Vital Signs Vital signs: Vital Signs Temp 97.7 F 01/23/21 04:00 Pulse 65 01/23/21 07:00 Resp 16 01/23/21 07:00 BP 153/56 01/23/21 07:00 Pulse Ox 98 01/23/21 07:00 Intake & Output 01/22/21 01/23/21 01/23/21 18:59 06:59 18:59 Intake Total 610 1276.034 14.603 Output Total 747 1005 250 Balance -137 271.034 -235.397 Weight 69.2 kg 69.2 kg Intake: IV 350 900 Dextrose 5% in Water 1, 75 900 000 ml @ 75 mls/hr IV . [id number] [facility] Rx#:[id number] Sodium Chloride 0.45% 1, 150 000 ml @ 75 mls/hr IV . [id number] [facility] Rx#:[id number] Sodium Chloride 3%( 125 Hypertonic) 250 ml @ 25 mls/hr IV .Q10H [facility] Rx#: [id number] Intake, IV Titration 16.034 14.603 Amount Insulin Regular 100 unit 16.034 14.603 In Sodium Chloride 0.9% 100 ml @ Per Protocol IV .Q0M [facility] Rx#:[id number] Oral 140 360 Tube Feeding 120 Output: Urine 747 1005 250 Other: Voiding Method Indwelling Catheter Indwelling Catheter - Exam General: Revealed 85-year-old female in no distress. HEAD: Atraumatic, normocephalic. 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 She is blind. ENT: Hearing grossly intact, normal oropharynx. RESPIRATORY: Symmetrical chest expansion, clear breath sound bilaterally no crackles or rhonchi or wheezes. C/V: Normal S1 and S2, no S3 gallop, no murmur. ABD: Soft nontender no megaly no rebound no guarding. EXT: Clubbing edema or cyanosis. SKIN: No rashes. NEURO: Patient is alert , oriented 3, no gross focal deficits, mental status significantly improved in the last 24 hours. Psychiatric: Normal mood affect and normal mental status examination. - Labs CBC & Chem 7: 01/23/21 03:23 01/23/21 10:52 Labs: Abnormal Lab Results - Last 24 Hours (Table) 01/22/21 01/22/21 01/22/21 Range/Units 09:56 13:15 14:05 WBC (3.8-10.6) k/uL RBC (3.80-5.40) m/uL Hct (34.0-46.0) % Neutrophils # (1.3-7.7) k/uL Sodium (137-145) mmol/L Chloride (98-107) mmol/L Carbon Dioxide (22-30) mmol/L BUN (7-17) mg/dL Glucose (74-99) mg/dL POC Glucose (mg/dL) 239 H (75-99) mg/dL Osmolality 265 L (280-301) mosm/kg Phosphorus 2.2 L (2.5-4.5) mg/dL 01/22/21 01/22/21 01/22/21 Range/Units 14:05 15:10 16:55 WBC (3.8-10.6) k/uL RBC (3.80-5.40) m/uL Hct (34.0-46.0) % Neutrophils # (1.3-7.7) k/uL Sodium 181 H* 126 L (137-145) mmol/L Chloride (98-107) mmol/L Carbon Dioxide (22-30) mmol/L BUN (7-17) mg/dL Glucose (74-99) mg/dL POC Glucose (mg/dL) 251 H (75-99) mg/dL Osmolality (280-301) mosm/kg Phosphorus (2.5-4.5) mg/dL 07/01/22/21 01/22/21 Range/Units 20:54 23:01 23:04 WBC (3.8-10.6) k/uL RBC (3.80-5.40) m/uL Hct (34.0-46.0) % Neutrophils # (1.3-7.7) k/uL Sodium 124 L (137-145) mmol/L Chloride (98-107) mmol/L Carbon Dioxide (22-30) mmol/L BUN (7-17) mg/dL Glucose (74-99) mg/dL POC Glucose (mg/dL) 346 H 277 H (75-99) mg/dL Osmolality (280-301) mosm/kg Phosphorus (2.5-4.5) mg/dL 01/22/21 01/23/21 01/23/21 Range/Units 23:46 01:12 01:59 WBC (3.8-10.6) k/uL RBC (3.80-5.40) m/uL Hct (34.0-46.0) % Neutrophils # (1.3-7.7) k/uL Sodium (137-145) mmol/L Chloride (98-107) mmol/L Carbon Dioxide (22-30) mmol/L BUN (7-17) mg/dL Glucose (74-99) mg/dL POC Glucose (mg/dL) 238 H 104 H 103 H (75-99) mg/dL Osmolality (280-301) mosm/kg Phosphorus (2.5-4.5) mg/dL 01/23/21 01/23/21 01/23/21 Range/Units 03:19 03:23 03:23 WBC 11.2 H (3.8-10.6) k/uL RBC 3.70 L (3.80-5.40) m/uL Hct 31.8 L (34.0-46.0) % Neutrophils # 9.1 H (1.3-7.7) k/uL Sodium 123 L (137-145) mmol/L Chloride 91 L (98-107) mmol/L Carbon Dioxide 21 L (22-30) mmol/L BUN 27 H (7-17) mg/dL Glucose 126 H (74-99) mg/dL POC Glucose (mg/dL) 158 H (75-99) mg/dL Osmolality 265 L (280-301) mosm/kg Phosphorus (2.5-4.5) mg/dL 01/23/21 01/23/21 01/23/21 Range/Units 04:13 05:26 06:32 WBC (3.8-10.6) k/uL RBC (3.80-5.40) m/uL Hct (34.0-46.0) % Neutrophils # (1.3-7.7) k/uL Sodium (137-145) mmol/L Chloride (98-107) mmol/L Carbon Dioxide (22-30) mmol/L BUN (7-17) mg/dL Glucose (74-99) mg/dL POC Glucose (mg/dL) 144 H 159 H 165 H (75-99) mg/dL Osmolality (280-301) mosm/kg Phosphorus (2.5-4.5) mg/dL 01/23/21 01/23/21 01/23/21 Range/Units 07:11 09:24 10:18 WBC (3.8-10.6) k/uL RBC (3.80-5.40) m/uL Hct (34.0-46.0) % Neutrophils # (1.3-7.7) k/uL Sodium (137-145) mmol/L Chloride (98-107) mmol/L Carbon Dioxide (22-30) mmol/L BUN (7-17) mg/dL Glucose (74-99) mg/dL POC Glucose (mg/dL) 159 H 228 H 285 H (75-99) mg/dL Osmolality (280-301) mosm/kg Phosphorus (2.5-4.5) mg/dL 01/23/21 01/23/21 Range/Units 10:52 11:01 WBC (3.8-10.6) k/uL RBC (3.80-5.40) m/uL Hct (34.0-46.0) % Neutrophils # (1.3-7.7) k/uL Sodium 124 L (137-145) mmol/L Chloride (98-107) mmol/L Carbon Dioxide (22-30) mmol/L BUN (7-17) mg/dL Glucose (74-99) mg/dL POC Glucose (mg/dL) 232 H (75-99) mg/dL Osmolality (280-301) mosm/kg Phosphorus (2.5-4.5) mg/dL Microbiology - Last 24 Hours (Table) 01/22/21 00:15 Blood Culture - Preliminary Blood No Growth after 24 hours 01/22/21 00:00 Blood Culture - Preliminary Blood No Growth after 24 hours Assessment and Plan Assessment: Impression: Hypertensive emergency. Hypovolemic hyponatremia. Mental status changes secondary to above, accelerated hypertension and hypovolemic hyponatremia Dyslipidemia. Type 2 diabetes. Coronary artery disease and previous CABG in 2007. Degenerative joint disease. Diabetic peripheral neuropathy. Chronic ataxia and gait dysfunction, uses a walker, exact etiology is not clear. History of esophageal stricture. History of hiatal hernia. Diabetic retinopathy. Chronic blindness right eye. Coronary artery disease and previous CABG in 2007. Recommendation: Change of the fluid from D5 W to .9 normal saline at 75 mL per hour. Continue to monitor sodium. Resume home meds. Continue to monitor patient in the ICU. GI and DVT prophylaxis. We'll continue to follow. Time with Patient: Less than 30
[2021-01-23 13:37] LABS: Glucose,Whole Blood 120 mg/dL (75-99)
--- NOTE | 2021-01-23 13:55 | P.PN ---
Progress Note - Text Progress Note Date: 01/23/21 Chief Complaint: Increasing confusion History of presenting complaint: This is a pleasant 85-year-old patient who follows with Dr. Ramirez. 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 baseline uses a walker. Lives with her . Patient is brought to the ER by her granddaughter. She is found to be a bit confused only a low 1. Was not really talking. Having some nausea and vomiting. She is not able to give much of a history in the ER. Blood pressure is found to be above systolic 240. Sodium down to 119. Patient is a patient with ICU. Started on hypertonic saline. Was initially given IV labetalol. Patient does drink excessive water at home. January 22: Reclining in bed in ICU. Daughter the bedside. Able to answer simple questions. January 23: Patient off hypertonic saline. Did tolerate some diet. On free fluid restriction. Tired. In recliner. Review of systems: Was done for constitutional, cardiovascular, GI, pulmonary. relevant finding as above Active Medications Amlodipine Besylate (Amlodipine 10 Mg Tab) 10 mg PO DAILY [facility] Last Admin: 01/23/21 10:10 Dose: 10 mg Documented by: Atorvastatin Calcium (Atorvastatin 40 Mg Tab) 40 mg PO HS [facility] Last Admin: 01/22/21 20:58 Dose: 40 mg Documented by: Clopidogrel Bisulfate (Clopidogrel 75 Mg Tab) 75 mg PO DAILY [facility] Last Admin: 01/23/21 10:10 Dose: 75 mg Documented by: Lisinopril/HCTZ (Lisinopril-Hctz 20-12.5 Mg 1 Each Tab) 1 each PO BID [facility] Last Admin: 01/23/21 10:23 Dose: 1 each Documented by: Heparin Sodium (Porcine) (Heparin Sodium,Porcine/Pf 5,000 Unit/0.5 Ml Syringe) 5,000 unit SQ Q12HR [facility] Last Admin: 01/23/21 10:10 Dose: 5,000 unit Documented by: Insulin Human Regular 100 unit (/ Sodium Chloride) 101 mls @ 0 mls/hr IV .Q0M [facility]; Protocol Last Titration: 01/23/21 12:10 Dose: 2.5 units/hr, 2.525 mls/hr Documented by: Sodium Chloride (Saline 0.9%) 1,000 mls @ 70 mls/hr IV .[id number] [facility] Last Admin: 01/23/21 11:13 Dose: 70 mls/hr Documented by: Levothyroxine Sodium (Levothyroxine 50 Mcg Tab) 50 mcg PO DAILY@0630 [facility] Last Admin: 01/23/21 05:39 Dose: 50 mcg Documented by: Miscellaneous Information (Magnesium Replacement Protocol 1 Each Misc) 1 each MISCELLANE DAILY PRN; Protocol PRN Reason: Per Protocol Miscellaneous Information (Potassium Replacement Protocol 1 Each Misc) 1 each MISCELLANE DAILY PRN; Protocol PRN Reason: Per Protocol Pantoprazole Sodium (Pantoprazole 40 Mg Tablet) 40 mg PO [id number] [facility] Last Admin: 01/23/21 06:35 Dose: 40 mg Documented by: Social history: Does not smoke or drink alcohol. . Does use a walker Physical examination: VITAL SIGNS: 97.7, 65, 16, 1 53 x 56, 98% room air GENERAL: In a recliner, tired, awake EYES: Blind in the right eye HEENT: External appearance of nose and ears normal, oral cavity grossly normal. NECK: JVD not raised; masses not palpable. HEART: First and second heart sounds are normal; no edema. LUNGS: Respiratory rate normal; clear to auscultation. ABDOMEN: Soft, nontender, liver spleen not palpable, no masses palpable. PSYCH: Answering simple questions MUSCULOSKELETAL: evidence of OA in the joints NEUROLOGICAL: Chronic weakness on the left side. Blind in the right eye... INVESTIGATIONS, reviewed in the clinical context January 23: Sodium 124 Sodium 124 creatinine 0.7 serum osmolality 265 Admission labs: Sodium 119 bicarb 19 creatinine 0.7 to UA positive for protein, glucose, ketone Urine drug screen negative Assessment and plan: -Hypoosmolar, hypervolemia hyponatremia. Symptomatic: Slow to respond . Fluid restriction/1200 mL a day.. Avoid free water. Hypertonic saline- discontinued -Accelerated hypertension: Better. Norvasc, Lipitor, Zestoretic. Follow blood pressure -chronic right shoulder dysfunction -Coronary artery disease, prior history of bypass 2008 Continue with Lopressor, Zestoretic -Diabetes mellitus type 2 on oral hypoglycemic, uncontrolled with hyperglycemia glyburide ; follow Accu-Cheks. Dietitian -Blind in the right eye, chronic -Hyperlipidemia Continue Lipitor -Hypothyroidism Continue Synthroid -Primary osteoarthritis Continue pain medications -Diabetic peripheral neuropathy -Chronic urinary incontinence -Chronic gait dysfunction uses a walker Fluid restriction 1200 mL a day. Avoid free water. Other medications to continue. Should avoid IV fluids. Repeat BMP serum osmolality tomorrow
[2021-01-23 14:12] LABS: Glucose,Whole Blood 135 mg/dL (75-99)
[2021-01-23 14:38] LABS: Hemoglobin A1C 8.4 % (4.0-6.0)
[2021-01-23 15:27] LABS: Glucose,Whole Blood 179 mg/dL (75-99)
[2021-01-23 16:02] LABS: Glucose,Whole Blood 210 mg/dL (75-99)
[2021-01-23 16:56] LABS: Glucose,Whole Blood 201 mg/dL (75-99)
[2021-01-23] MEDS: INSULIN ASPART (NovoLOG) 100 UNIT/ML VIAL SQ SCH ×2 (17:10→21:24)
[2021-01-23] MEDS: ATORVASTATIN 40 MG TAB PO SCH (21:18)
[2021-01-23 21:20] LABS: Glucose,Whole Blood 218 mg/dL (75-99)
[2021-01-24] MEDS: SODIUM CHLORIDE 0.9% 1,000 ML IV SCH ×2 (00:16→20:57)
[2021-01-24 04:08] LABS: Basophils % (A) 0 %; Eosinophils # (A) 0.1 k/uL (0-0.7); Eosinophils % (A) 2 %; HGB 11.3 gm/dL (11.4-16.0); Lymphocytes % (A) 13 %; MCHC 35.3 g/dL (31.0-37.0); MCV 87.6 fL (80.0-100.0); Mean Platelet Volume 7.9; Monocytes # (A) 0.6 k/uL (0-1.0); Monocytes % (A) 9 %; Neutrophils # (A) 5.4 k/uL (1.3-7.7); Neutrophils % (A) 75 %; Platelet Count 182 k/uL (150-450); RBC 3.65 m/uL (3.80-5.40); RDW 13.9 % (11.5-15.5); WBC 7.2 k/uL (3.8-10.6)
[2021-01-24 04:17] LABS: Calcium 8.3 mg/dL (8.4-10.2); Potassium 4.5 mmol/L (3.5-5.1)
[2021-01-24 06:06] LABS: Glucose,Whole Blood 194 mg/dL (75-99)
[2021-01-24] MEDS: PANTOPRAZOLE 40 MG TABLET PO SCH (06:08)
[2021-01-24] MEDS: LEVOTHYROXINE 50 MCG TAB PO SCH (06:09)
[2021-01-24] MEDS: INSULIN ASPART (NovoLOG) 100 UNIT/ML VIAL SQ SCH ×4 (06:13→20:54)
[2021-01-24] MEDS: LISINOPRIL-HCTZ 20-12.5 MG 1 EACH TAB PO SCH ×2 (08:17→20:54)
[2021-01-24] MEDS: amLODIPine 10 MG TAB PO SCH (08:17)
[2021-01-24] MEDS: HEPARIN SODIUM,PORCINE/PF 5,000 UNIT/0.5 ML SYRINGE SQ SCH ×2 (08:17→20:55)
[2021-01-24] MEDS: CLOPIDOGREL 75 MG TAB PO SCH (08:17)
--- NOTE | 2021-01-24 11:01 | P.PN ---
Subjective Progress Note Date: 01/24/21 Principal diagnosis: Severe hypovolemic hyponatremia and hypertensive emergency This is an 85-year-old female with history of multiple medical problems including coronary artery disease, hypertension, previous CVA, left eye blindness, type 2 diabetes, GERD, hypothyroidism, patient was brought into the ER last night by her granddaughter mostly with acute altered mental status. Her granddaughter happened to visit her grandmother, and she was noted to be confused, oriented 1/self, patient was not talkative, has been apparently experiencing intermittent episodes of nausea and vomiting, patient has been likely noncompliant with her medications for blood pressure and for diabetes, the patient herself could not give any adequate history. Patient was brought into the ER and she was found to have significantly elevated blood pressure in the 240 range systolic, her sodium was noted to be extremely low at 119, patient was admitted to the ICU, and I was asked to see her on consultation. I was notified initially by the ER physician on this patient, she was treated with car dene drip, and I have recommended 3% saline to be given over 10 hours at the rate of 25 mL per hour. And her sodium went up to 124, from 119 initially, I transitioned her IV fluid to D5 45 at 75 mL per hour. Patient received labetalol while in the ER, and by the time I saw the patient, her blood pressure was actually in the normal range and this was done in the ER. Sodium went up to 124, renal profile is normal, bicarb is 22, blood sugar was 270, and CBC was normal. Supposedly the patient is on multiple medications at home including DiaBeta, amlodipine, omeprazole, lisinopril with hydrochlorothiazide, levothyroxine, Plavix, and Lipitor. Again there is question of compliance with medications at home. Workup in the ER included CT angiogram of the head and neck, and it was basically unremarkable. Chest x-ray showed cardiomegaly and no active disease. Reevaluated today on 01/23/2021, patient remains in the ICU, she is presently on room air, she is hemodynamically stable, and her blood pressure seems to be much better control. Yesterday the patient was transitioned from hypertonic saline to D5W at 75 mL/h, however her sodium is holding now at 123, did not change much over the last 12 hours, it was 124 yesterday, hence I'm changing her IV fluid 2.9 normal saline, and I'm recommending that we titrate the insulin down and possibly discontinue. Patient has a urine output of 200 mL per hour. Her IV fluid will be 0.9 normal saline at 75 mL per hour. And we will continue to mon itor her sodium. Today it is again 124. Her bicarb is 21, BUN is 27 creatinine 1.01. DC is relatively normal. Initial sodium on presentation was as low as 119. Clinically the patient is feeling much better, she is awake, alert oriented 3, she has no gross focal deficits, mental status has significantly improved with slight correction of her hyponatremia and with her blood pressure control. Hence I believe her mental status change was related to hyponatremia and hypertensive emergency. Reevaluated today on 01/24/2021, remains in the ICU, patient is doing much better today, breathing a lot easier, her mentation is back to normal. Her sodium today is 129. Patient remains on IV fluid 0.9 normal saline at 70 mL per hour. Patient is on room air with O2 saturation 97%. Patient is having minimal episodes of diarrhea. But overall she is great and her blood pressure is stable. ABC is relatively normal basic metabolic profile was noted sodium is up to 129. Her initial sodium on presentation was 119 and that was on 01/21/2021. Objective - Vital Signs Vital signs: Vital Signs Temp 97.5 F L 01/24/21 08:00 Pulse 75 01/24/21 08:00 Resp 16 01/24/21 08:00 BP 146/62 01/24/21 08:00 Pulse Ox 98 01/24/21 08:00 Intake & Output 01/23/21 01/24/21 01/24/21 18:59 06:59 18:59 Intake Total 1847.312 6541 140 Output Total 2260 1056 290 Balance -576.265 -46 -150 Weight 69.2 kg 72.3 kg Intake: IV 855 770 140 Dextrose 5% in Water 1, 225 000 ml @ 75 mls/hr IV . [id number] [facility] Rx#:[id number] Sodium Chloride 0.9% 1, 630 770 140 000 ml @ 70 mls/hr IV . [id number] [facility] Rx#:[id number] Intake, IV Titration 28.735 Amount Insulin Regular 100 unit 28.735 In Sodium Chloride 0.9% 100 ml @ Per Protocol IV .Q0M [facility] Rx#:[id number] Oral 800 240 Output: Urine 2260 1055 290 Urine/Stool Mix 1 Other: Voiding Method Indwelling Catheter Indwelling Catheter - Exam General: Revealed 85-year-old female in no distress. HEAD: Atraumatic, normocephalic. 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 She is blind. ENT: Hearing grossly intact, normal oropharynx. RESPIRATORY: Symmetrical chest expansion, clear breath sound bilaterally no crackles or rhonchi or wheezes. C/V: Normal S1 and S2, no S3 gallop, no murmur. ABD: Soft nontender no megaly no rebound no guarding. EXT: Clubbing edema or cyanosis. SKIN: No rashes. NEURO: Patient is alert , oriented 3, no gross focal deficits, steady improvement noted in her mental status since admission. Psychiatric: Normal mood affect and normal mental status examination. - Labs CBC & Chem 7: 01/24/21 03:47 01/24/21 03:47 Labs: Abnormal Lab Results - Last 24 Hours (Table) 01/23/21 01/23/21 01/23/21 Range/Units 03:23 10:52 11:01 RBC (3.80-5.40) m/uL Hgb (11.4-16.0) gm/dL Hct (34.0-46.0) % Sodium 124 L (137-145) mmol/L BUN (7-17) mg/dL Glucose (74-99) mg/dL POC Glucose (mg/dL) 232 H (75-99) mg/dL Hemoglobin A1c 8.4 H (4.0-6.0) % Calcium (8.4-10.2) mg/dL 01/23/21 01/23/21 01/23/21 Range/Units 12:01 13:35 14:10 RBC (3.80-5.40) m/uL Hgb (11.4-16.0) gm/dL Hct (34.0-46.0) % Sodium (137-145) mmol/L BUN (7-17) mg/dL Glucose (74-99) mg/dL POC Glucose (mg/dL) 143 H 120 H 135 H (75-99) mg/dL Hemoglobin A1c (4.0-6.0) % Calcium (8.4-10.2) mg/dL 01/23/21 01/23/21 01/23/21 Range/Units 15:20 15:26 16:00 RBC (3.80-5.40) m/uL Hgb (11.4-16.0) gm/dL Hct (34.0-46.0) % Sodium 127 L (137-145) mmol/L BUN (7-17) mg/dL Glucose (74-99) mg/dL POC Glucose (mg/dL) 179 H 210 H (75-99) mg/dL Hemoglobin A1c (4.0-6.0) % Calcium (8.4-10.2) mg/dL 01/23/21 01/23/21 01/23/21 Range/Units 16:55 20:24 21:17 RBC (3.80-5.40) m/uL Hgb (11.4-16.0) gm/dL Hct (34.0-46.0) % Sodium 127 L (137-145) mmol/L BUN (7-17) mg/dL Glucose (74-99) mg/dL POC Glucose (mg/dL) 201 H 218 H (75-99) mg/dL Hemoglobin A1c (4.0-6.0) % Calcium (8.4-10.2) mg/dL 01/24/21 01/24/21 01/24/21 Range/Units 03:47 03:47 06:04 RBC 3.65 L (3.80-5.40) m/uL Hgb 11.3 L (11.4-16.0) gm/dL Hct 32.0 L (34.0-46.0) % Sodium 129 L (137-145) mmol/L BUN 28 H (7-17) mg/dL Glucose 179 H (74-99) mg/dL POC Glucose (mg/dL) 194 H (75-99) mg/dL Hemoglobin A1c (4.0-6.0) % Calcium 8.3 L (8.4-10.2) mg/dL Microbiology - Last 24 Hours (Table) 01/22/21 00:15 Blood Culture - Preliminary Blood No Growth after 48 hours 01/22/21 00:00 Blood Culture - Preliminary Blood No Growth after 48 hours Assessment and Plan Assessment: Impression: Hypertensive emergency. Hypovolemic hyponatremia. Mental status changes secondary to above, accelerated hypertension and hypovolemic hyponatremia Dyslipidemia. Type 2 diabetes. Coronary artery disease and previous CABG in 2007. Degenerative joint disease. Diabetic peripheral neuropathy. Chronic ataxia and gait dysfunction, uses a walker, exact etiology is not clear. History of esophageal stricture. History of hiatal hernia. Diabetic retinopathy. Chronic blindness right eye. Coronary artery disease and previous CABG in 2007. Recommendation: Continue IV fluids. Transfer patient to a regular medical floor. Possible discharge planning in the next 24 hours. GI and DVT prophylaxis. We'll continue to follow. Time with Patient: Less than 30
[2021-01-24 12:29] LABS: Glucose,Whole Blood 221 mg/dL (75-99)
[2021-01-24 17:26] LABS: Glucose,Whole Blood 195 mg/dL (75-99)
[2021-01-24 20:27] LABS: Glucose,Whole Blood 213 mg/dL (75-99)
[2021-01-24] MEDS: ATORVASTATIN 40 MG TAB PO SCH (20:54)
--- NOTE | 2021-01-24 21:22 | P.PN ---
Progress Note - Text Progress Note Date: 01/24/21 Chief Complaint: Increasing confusion History of presenting complaint: This is a pleasant 85-year-old patient who follows with Dr. Ramirez. 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 baseline uses a walker. Lives with her . Patient is brought to the ER by her granddaughter. She is found to be a bit confused only a low 1. Was not really talking. Having some nausea and vomiting. She is not able to give much of a history in the ER. Blood pressure is found to be above systolic 240. Sodium down to 119. Patient is a patient with ICU. Started on hypertonic saline. Was initially given IV labetalol. Patient does drink excessive water at home. January 22: Reclining in bed in ICU. Daughter the bedside. Able to answer simple questions. January 23: Patient off hypertonic saline. Did tolerate some diet. On free fluid restriction. Tired. In recliner. January 24: Patient will ICU. Sitting up in a chair. Looking much better. Oral intake. Her daughter visiting. Discussed at length about fluid restriction. Review of systems: Was done for constitutional, cardiovascular, GI, pulmonary. relevant finding as above Active Medications Amlodipine Besylate (Amlodipine 10 Mg Tab) 10 mg PO DAILY [facility] Last Admin: 01/24/21 08:17 Dose: 10 mg Documented by: Atorvastatin Calcium (Atorvastatin 40 Mg Tab) 40 mg PO HS [facility] Last Admin: 01/24/21 20:54 Dose: 40 mg Documented by: Clopidogrel Bisulfate (Clopidogrel 75 Mg Tab) 75 mg PO DAILY [facility] Last Admin: 01/24/21 08:17 Dose: 75 mg Documented by: Lisinopril/HCTZ (Lisinopril-Hctz 20-12.5 Mg 1 Each Tab) 1 each PO BID [facility] Last Admin: 01/24/21 20:54 Dose: 1 each Documented by: Heparin Sodium (Porcine) (Heparin Sodium,Porcine/Pf 5,000 Unit/0.5 Ml Syringe) 5,000 unit SQ Q12HR [facility] Last Admin: 01/24/21 20:55 Dose: 5,000 unit Documented by: Sodium Chloride (Saline 0.9%) 1,000 mls @ 70 mls/hr IV .[id number] [facility] Last Admin: 01/24/21 20:57 Dose: 70 mls/hr Documented by: Insulin Aspart (Insulin Aspart (Novolog) 100 Unit/Ml Vial) 0 unit SQ ACHS [facility]; Protocol Last Admin: 01/24/21 20:54 Dose: 3 unit Documented by: Levothyroxine Sodium (Levothyroxine 50 Mcg Tab) 50 mcg PO DAILY@0630 [facility] Last Admin: 01/24/21 06:09 Dose: 50 mcg Documented by: Miscellaneous Information (Magnesium Replacement Protocol 1 Each Misc) 1 each MISCELLANE DAILY PRN; Protocol PRN Reason: Per Protocol Miscellaneous Information (Potassium Replacement Protocol 1 Each Misc) 1 each MISCELLANE DAILY PRN; Protocol PRN Reason: Per Protocol Pantoprazole Sodium (Pantoprazole 40 Mg Tablet) 40 mg PO AC-BRKFST [facility] Last Admin: 01/24/21 06:08 Dose: 40 mg Documented by: Social history: Does not smoke or drink alcohol. . Does use a walker Physical examination: VITAL SIGNS: 97.8, 67, 17, 127/72, 96% room air GENERAL: Sitting up in a chair, looking better EYES: Blind in the right eye HEENT: External appearance of nose and ears normal, oral cavity grossly normal. NECK: JVD not raised; masses not palpable. HEART: First and second heart sounds are normal; no edema. LUNGS: Respiratory rate normal; clear to auscultation. ABDOMEN: Soft, nontender, liver spleen not palpable, no masses palpable. PSYCH: Answering questions MUSCULOSKELETAL: evidence of OA in the joints NEUROLOGICAL: Chronic weakness on the left side. Blind in the right eye... INVESTIGATIONS, reviewed in the clinical context January 24: Sodium 129 creatinine 0.95 serum osmolality 282 January 23: Sodium 124 Sodium 124 creatinine 0.7 serum osmolality 265 Admission labs: Sodium 119 bicarb 19 creatinine 0.7 to UA positive for protein, glucose, ketone Urine drug screen negative Assessment and plan: -Hypoosmolar, hypervolemia hyponatremia. Symptomatic: Improving . Fluid restriction/1200 mL a day.. Avoid free water. Hypertonic saline- discontinued -Accelerated hypertension: Better. Norvasc, Lipitor, Zestoretic. Follow blood pressure -chronic right shoulder dysfunction -Coronary artery disease, prior history of bypass 2008 Continue with Lopressor, Zestoretic -Diabetes mellitus type 2 on oral hypoglycemic, uncontrolled with hyperglycemia glyburide ; follow Accu-Cheks. Dietitian -Blind in the right eye, chronic -Hyperlipidemia Continue Lipitor -Hypothyroidism Continue Synthroid -Primary osteoarthritis Continue pain medications -Diabetic peripheral neuropathy -Chronic urinary incontinence -Chronic gait dysfunction uses a walker Continue with fluid restriction. Other medications to continue. Discussed with the patient and the daughter the bedside. Especially fluid restriction. Total time spent today about 40 minutes with over 20 minutes of discussion.
[2021-01-25] MEDS: LEVOTHYROXINE 50 MCG TAB PO SCH (05:11)
[2021-01-25 05:47] LABS: African American GFR (CKD) 67 (>60 ml/min/1.73 sqM); Anion Gap 5 mmol/L; Blood Urea Nitrogen 23 mg/dL (7-17); Calcium 9.2 mg/dL (8.4-10.2); Carbon Dioxide 22 mmol/L (22-30); Chloride 108 mmol/L (98-107); Glucose 182 mg/dL (74-99); Non-African American GFR(CKD) 58 (>60 ml/min/1.73 sqM); Potassium 4.5 mmol/L (3.5-5.1); Sodium 135 mmol/L (137-145)
[2021-01-25 06:56] LABS: Glucose,Whole Blood 221 mg/dL (75-99)
[2021-01-25] MEDS: PANTOPRAZOLE 40 MG TABLET PO SCH (08:24)
[2021-01-25] MEDS: HEPARIN SODIUM,PORCINE/PF 5,000 UNIT/0.5 ML SYRINGE SQ SCH (08:24)
[2021-01-25] MEDS: amLODIPine 10 MG TAB PO SCH (08:24)
[2021-01-25] MEDS: CLOPIDOGREL 75 MG TAB PO SCH (08:24)
[2021-01-25] MEDS: INSULIN ASPART (NovoLOG) 100 UNIT/ML VIAL SQ SCH ×2 (08:24→12:11)
[2021-01-25] MEDS: LISINOPRIL-HCTZ 20-12.5 MG 1 EACH TAB PO SCH (08:25)
[2021-01-25 11:13] LABS: Glucose,Whole Blood 274 mg/dL (75-99)
[2021-01-25] MEDS ORDERED: glipiZIDE 5 MG TAB PO STA (11:13)
[2021-01-25 11:49] VITALS: BP 146/66; PULSE 71; RESP 17; TEMP 98
--- NOTE | 2021-01-25 15:31 | P.DS ---
Providers Date of admission: 01/21/21 23:45 Expected date of discharge: 01/25/21 Attending physician: Elan Nagel Consults: 01/21/21 23:45 Consult Physician Stat Consulting Provider: Chuy Gallo Reason/Comments: Hypertensive emergency, hyponatremia, altered mental status Do you want consulting provider notified?: Already Contacted Primary care physician: [facility] Course: Chief Complaint: Increasing confusion History of presenting complaint: This is a pleasant 85-year-old patient who follows with Dr. Ramirez. 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 baseline uses a walker. Lives with her . Patient is brought to the ER by her granddaughter. She is found to be a bit confused only a low 1. Was not really talking. Having some nausea and vomiting. She is not able to give much of a history in the ER. Blood pressure is found to be above systolic 240. Sod ium down to 119. Patient is a patient with ICU. Started on hypertonic saline. Was initially given IV labetalol. Patient does drink excessive water at home. January 22: Reclining in bed in ICU. Daughter the bedside. Able to answer simple questions. January 23: Patient off hypertonic saline. Did tolerate some diet. On free fluid restriction. Tired. In recliner. January 24: Patient will ICU. Sitting up in a chair. Looking much better. Oral intake. Her daughter visiting. Discussed at length about fluid restriction. January 25: Doing well. Oral intake good. Blood pressure well controlled. Sodium has come up, nicely. Reinforced about fluid restriction. Consultation: Dr. Gallo/harness worker Social history: Does not smoke or drink alcohol. . Does use a walker Physical examination: VITAL SIGNS: 98, 71, 17, 146/66, 99% room air GENERAL: Sitting up in a chair, comfortable EYES: Blind in the right eye HEENT: External appearance of nose and ears normal, oral cavity grossly normal. NECK: JVD not raised; masses not palpable. HEART: First and second heart sounds are normal; no edema. LUNGS: Respiratory rate normal; clear to auscultation. ABDOMEN: Soft, nontender, liver spleen not palpable, no masses palpable. PSYCH: Answering questions appropriately MUSCULOSKELETAL: evidence of OA in the joints NEUROLOGICAL: Chronic weakness on the left side. Blind in the right eye... INVESTIGATIONS, reviewed in the clinical context January 25: Sodium 135 creatinine 0.91 January 24: Sodium 129 creatinine 0.95 serum osmolality 282 January 23: Sodium 124 Sodium 124 creatinine 0.7 serum osmolality 265 Admission labs: Sodium 119 bicarb 19 creatinine 0.7 to UA positive for protein, glucose, ketone Urine drug screen negative Assessment and plan: -Hypoosmolar, hypervolemia hyponatremia. Symptomatic: Corrected DC home with fluid restriction of 2000 mL a day. Hypertonic saline-discontinued -Accelerated hypertension: Improved Norvasc, Lipitor, Zestoretic. Follow blood pressure -chronic right shoulder dysfunction -Coronary artery disease, prior history of bypass 2007 Continue with Lopressor, Zestoretic -Diabetes mellitus type 2 on oral hypoglycemic, uncontrolled with hyperglycemia glyburide ; follow Accu-Cheks. Dietitian -Blind in the right eye, chronic -Hyperlipidemia Continue Lipitor -Hypothyroidism Continue Synthroid -Primary osteoarthritis Continue pain medications -Diabetic peripheral neuropathy -Chronic urinary incontinence Depend -Chronic gait dysfunction uses a walker Disposition: Home Patient Condition at Discharge: Serious Plan - Discharge Summary Discharge Rx Participant: Yes New Discharge Prescriptions: Continue glyBURIDE [Diabeta] 5 mg PO AC-BID Lisinopril-Hctz 20-12.5 mg [Zestoretic 20-12.5] 1 tab PO BID Omeprazole [PriLOSEC] 20 mg PO AC-BRKFST Atorvastatin [Lipitor] 40 mg PO HS amLODIPine [Norvasc] 10 mg PO DAILY #30 tab Clopidogrel [Plavix] 75 mg PO DAILY #0 Levothyroxine Sodium [Synthroid] 50 mcg PO DAILY #0 Discharge Medication List glyBURIDE [Diabeta] 5 mg PO AC-BID 05/24/19 [History] Lisinopril-Hctz 20-12.5 mg [Zestoretic 20-12.5] 1 tab PO BID 08/20/19 [History] Omeprazole [PriLOSEC] 20 mg PO AC-BRKFST 01/06/20 [History] Atorvastatin [Lipitor] 40 mg PO HS 12/02/20 [History] Clopidogrel [Plavix] 75 mg PO DAILY #0 12/04/20 [Rx] Levothyroxine Sodium [Synthroid] 50 mcg PO DAILY #0 12/04/20 [Rx] amLODIPine [Norvasc] 10 mg PO DAILY #30 tab 12/04/20 [Rx] Follow up Appointment(s)/Referral(s): Esvin Ramirez DO [Primary Care Provider] - 1-2 days (Office will call patient to schedule follow-up appointment.) Kathy [facility], [NON-STAFF] - 1 Week Activity/Diet/Wound Care/Special Instructions: accuchek daily daily fluid intake 2000 cc/day
== END 2021-01-25 15:53 | disposition home health service (06) | DRG 641 ==
LOC: EC 20:24 → 2SICU 23:45 → 5NMEDONC 01-24 11:48
PROVIDERS: ADMIT Hospitalist; ATTEND Hospitalist
DX: E87.1 Hypo-osmolality and hyponatremia (principal); I16.1 Hypertensive emergency; I69.354 Hemiplegia and hemiparesis following cerebral infarction affecting left non-dominant side; E03.9 Hypothyroidism, unspecified; E11.319 Type 2 diabetes mellitus with unspecified diabetic retinopathy without macular edema; E11.42 Type 2 diabetes mellitus with diabetic polyneuropathy; E11.65 Type 2 diabetes mellitus with hyperglycemia; E78.5 Hyperlipidemia, unspecified; E86.1 Hypovolemia; H54.62 Unqualified visual loss, left eye, normal vision right eye; H54.61 Unqualified visual loss, right eye, normal vision left eye; I11.9 Hypertensive heart disease without heart failure; I25.10 Atherosclerotic heart disease of native coronary artery without angina pectoris; M19.91 Primary osteoarthritis, unspecified site; R32 Unspecified urinary incontinence; E87.8 Other disorders of electrolyte and fluid balance, not elsewhere classified; E87.70 Fluid overload, unspecified; R26.9 Unspecified abnormalities of gait and mobility; Z98.890 Other specified postprocedural states; M24.9 Joint derangement, unspecified; G89.29 Other chronic pain; Z98.49 Cataract extraction status, unspecified eye; Z84.1 Family history of disorders of kidney and ureter; Z81.1 Family history of alcohol abuse and dependence; Z80.9 Family history of malignant neoplasm, unspecified; K22.2 Esophageal obstruction; Z79.02 Long term (current) use of antithrombotics/antiplatelets; Z79.84 Long term (current) use of oral hypoglycemic drugs; Z79.890 Hormone replacement therapy; Z79.899 Other long term (current) drug therapy; Z90.710 Acquired absence of both cervix and uterus; Z91.041 Radiographic dye allergy status; T46.5X6A Underdosing of other antihypertensive drugs, initial encounter; T38.3X6A Underdosing of insulin and oral hypoglycemic [antidiabetic] drugs, initial encounter; Z91.128 Patient's intentional underdosing of medication regimen for other reason; Z95.1 Presence of aortocoronary bypass graft; Z88.2 Allergy status to sulfonamides; Z88.6 Allergy status to analgesic agent; Z91.013 Allergy to seafood
CPT/HCPCS: 36415; 70450; 70496; 70498; 71045; 80048; 80053; 80306; 80320; 81001; 82140; 83036; 83605; 83735; 83930; 84100; 84132; 84295; 84484; 85025; 85610; 85730; 87040; 93005; 96365; 96366; 96375; 99291

== ENCOUNTER 2021-07-24 18:38 | Inpatient (IN) | payer MEDICARE, OTHER ==
[2021-07-24] MEDS ORDERED: SODIUM CHLORIDE 0.9% 1,000 ML IV STA (18:55)
--- NOTE | 2021-07-24 18:57 | ED ---
General Adult HPI - General Chief complaint: Recheck/Abnormal Lab/Rx Stated complaint: Hyperglycemia Time Seen by Provider: 07/24/21 18:49 Source: patient, EMS Mode of arrival: EMS Limitations: physical limitation - History of Present Illness Initial comments: Patient presents to the ED by ambulance for evaluation. She states that her granddaughter called for an ambulance for her because her blood glucose level is elevated. Patient admits to having polyuria for the past day or so. Patient states that she has been taking her oral diabetes medications, and she denies noncompliance. Patient denies having any other symptoms at this time. She tegan es having any pain, fever or chills, headache, focal neuro deficit, sore throat, cough or cold symptoms, chest pain, dyspnea, palpitations, dizziness, abdominal pain, nausea/vomiting/diarrhea, dysuria/hematuria, or any other symptoms or complaints. Patient states that she is fully vaccinated for Covid. - Related Data Home Medications Medication Instructions Recorded Confirmed glyBURIDE [Diabeta] 5 mg PO BID 05/24/19 07/24/21 Omeprazole [PriLOSEC] 20 mg PO DAILY 01/06/20 07/24/21 Atorvastatin [Lipitor] 40 mg PO DAILY 12/02/20 07/24/21 Acetaminophen Tab [Tylenol] 500 mg PO Q6H PRN 07/24/21 07/24/21 Cholecalciferol [Vitamin D3 (25 50 mcg PO DAILY 07/24/21 07/24/21 Mcg = 1000 Iu)] Collagenase [Santyl Ointment] 1 applic TOPICAL DAILY 07/24/21 07/24/21 Cranberry Fruit Extract [Cranberry] 500 mg PO DAILY 07/24/21 07/24/21 Levothyroxine Sodium [Synthroid] 50 mcg PO DAILY 07/24/21 07/24/21 NIFEdipine [NIFEdipine ER] 30 mg PO DAILY 07/24/21 07/24/21 sitaGLIPtin [Januvia] 100 mg PO DAILY 07/24/21 07/24/21 Allergies Allergy/AdvReac Type Severity Reaction Status Date / Time aspirin Allergy Rash/Hives Verified 07/24/21 20:57 fish derived Allergy Rash/Hives Verified 07/24/21 20:57 Iodinated Contrast Media Allergy Rash/Hives Verified 07/24/21 20:57 [Iodinated Contrast Media - IV Dye] Iodine and Iodide Containing Allergy Rash/Hives Verified 07/24/21 20:57 Produc shellfish derived [Shellfish] Allergy Rash/Hives Verified 07/24/21 20:57 sulfamethoxazole Allergy Itching Verified 07/24/21 20:57 [From Bactrim] trimethoprim [From Bactrim] Allergy Itching Verified 07/24/21 20:57 Review of Systems ROS Statement: Those systems with pertinent positive or pertinent negative responses have been documented in the HPI. ROS Other: All systems not noted in ROS Statement are negative. Past Medical History Past Medical History: Coronary Artery Disease (CAD), Chest Pain / Angina, CVA/TIA, Diabetes Mellitus, Eye Disorder, GERD/Reflux, Hyperlipidemia, Hyperte nsion, Osteoarthritis (OA), Syncope, Thyroid Disorder Additional Past Medical History / Comment(s): NIDDM type II, neuropathy bilateral hands, 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, dysphagia,esophageal strictures with dilation, hiatal hernia, L eye diabetic retinopathy/R eye b lindness, bilateral [place], UTIS/urinary leakage, past bilateral feet sores/osteomylitis, generalized pain, bilateral carpal tunnel syndrome, vertigo, hypothyroid, anemia History of Any Multi-Drug Resistant Organisms: None Reported Past Surgical History: Bladder Surgery, Cholecystectomy, Coronary Bypass/CABG, Heart Catheterization, Hysterectomy Additional Past Surgical History / Comment(s): 2007 CABG 4 vessel, EGDs with dilations, colonoscopies, cataract removal, D&C, bladder suspension, PICC, loop recorder. Past Anesthesia/Blood Transfusion Reactions: Motion Sickness, Postoperative Nausea & Vomiting (PONV) Past Psychological History: No Psychological Hx Reported Smoking Status: Never smoker Past Alcohol Use History: None Reported Past Drug Use History: None Reported - Past Family History Father Family Medical History: Liver Disease Additional Family Medical History / Comment(s): Father of cirrhosis. He was a drinker. Mother History Unknown: Yes Family Medical History: Unable to Obtain Additional Family Medical History / Comment(s): Pt states she does not know her mother's medical history, but knows she at the age of 62 yrs.. Son(s) Family Medical History: Unable to Obtain, Renal Disease Daughter(s) Family Medical History: Cancer General Exam Limitations: physical limitation General appearance: alert, in no apparent distress Head exam: Present: atraumatic, normocephalic Eye exam: Present: other (Right eye blindness) ENT exam: Present: mucous membranes dry Neck exam: Present: other (Trachea is in midline). Absent: tenderness, meningismus Respiratory exam: Present: normal lung sounds bilaterally. Absent: respiratory distress, wheezes, rales, rhonchi, stridor Cardiovascular Exam: Present: regular rate, normal rhythm, normal heart sounds, other (Normal radial pulses bilaterally) GI/Abdominal exam: Present: soft. Absent: distended, tenderness, guarding Extremities exam: Absent: tenderness, pedal edema, calf tenderness Back exam: Absent: CVA tenderness (R), CVA tenderness (L) Neurological exam: Present: alert, oriented X3. Absent: motor sensory deficit Psychiatric exam: Present: normal affect, normal mood Skin exam: Present: warm, dry, intact, normal color Course Vital Signs 07/24/21 18:47 Temperature 98.8 F Pulse Rate 73 Respiratory 16 Rate Blood Pressure 162/64 O2 Sat by Pulse 99 Oximetry - Reevaluation(s) Reevaluation #1: 07/24/21 21:59 Patient's granddaughter is now in the ED, and she states that she is concerned about the patient's left foot amputation site being infected. Patient's left sock was removed and her foot was examined. Patient's left second toe is necrotic in appearance. Granddaughter states that the patient's left second toe just started looking that way a few days ago. Patient has an open wound at her left foot toe amputation site with mild drainage and surrounding erythema/tenderness. No crepitation is appreciated. Granddaughter states that the patient is being followed by Dr. Velez (vascular surgery) for her left fo ot amputation wounds, and she states that he is aware of these findings. Patient admits that she has been having more left foot pain over the past few days. Wound cultures were obtained. Blood culture was ordered. Left foot x-ray was also ordered. Will also order IV antibiotics at this time. 07/24/21 22:11 Case, H&P, test results and ED management thus far were discussed with Dr. Nagel. He asks to give Dr. Velez (vascular surgery) a call for his recommendations. He also requests placing an order for ID consultation. He has no further recommendations at this time. 07/24/21 22:18 Case, H&P, test results and ED management thus far were discussed with Dr. Velez (vascular surgery). He has taken the patient's name, and he states that he will see the patient in consultation. He has no further recommendations at this time. 07/24/21 22:23 Patient and granddaughter are aware the patient's test results, and they both agree with hospital admission at this time. Patient denies development of any new symptoms while in the ED. Medical Decision Making - Medical Decision Making Given the appearance of the patient's left foot, and concerned about wound infection/cellulitis and possible osteomyelitis. Will admit the patient to the hospital for IV antibiotic treatment and vascular surgery consultation. Patient is afebrile and without leukocytosis at this time. Patient's hyperglycemia is mild and has improved. Patient is not ketotic or acidotic. Dr. Nagel has accepted hospital admission. Dr. Velez was contacted and agrees to see the patient in consultation. - Lab Data Result diagrams: 07/24/21 20:00 07/24/21 20:00 Lab Results 07/24/21 07/24/21 07/24/21 Range/Units 19:18 20:00 20:00 WBC 5.7 (3.8-10.6) k/uL RBC 5.12 (3.80-5.40) m/uL Hgb 14.4 (11.4-16.0) gm/dL Hct 44.9 (34.0-46.0) % MCV 87.6 (80.0-100.0) fL MCH 28.1 (25.0-35.0) pg MCHC 32.1 (31.0-37.0) g/dL RDW 14.9 (11.5-15.5) % Plt Count 206 (150-450) k/uL MPV 7.6 Neutrophils % 78 % Lymphocytes % 12 % Monocytes % 6 % Eosinophils % 2 % Basophils % 0 % Neutrophils # 4.4 (1.3-7.7) k/uL Lymphocytes # 0.7 L (1.0-4.8) k/uL Monocytes # 0.3 (0-1.0) k/uL Eosinophils # 0.1 (0-0.7) k/uL Basophils # 0.0 (0-0.2) k/uL VBG pH (7.31-7.41) VBG pCO2 (37-51) mmHg VBG HCO3 (24-28) mmol/L Sodium 135 L (137-145) mmol/L Potassium 4.2 (3.5-5.1) mmol/L Chloride 104 (98-107) mmol/L Carbon Dioxide 23 (22-30) mmol/L Anion Gap 8 mmol/L BUN 21 H (7-17) mg/dL Creatinine 0.69 (0.52-1.04) mg/dL Est GFR (CKD-EPI)AfAm >90 (>60 ml/min/1.73 sqM) Est GFR (CKD-EPI)NonAf 80 (>60 ml/min/1.73 sqM) Glucose 261 H (74-99) mg/dL POC Glucose (mg/dL) 286 H (75-99) mg/dL POC Glu [employer] ID Belval, Ivon Calcium 8.7 (8.4-10.2) mg/dL Magnesium 1.1 L (1.6-2.3) mg/dL Total Bilirubin 0.3 (0.2-1.3) mg/dL AST 15 (14-36) U/L ALT 12 (4-34) U/L Alkaline Phosphatase 81 (38-126) U/L Total Protein 6.6 (6.3-8.2) g/dL Albumin 3.2 L (3.5-5.0) g/dL Acetone, Qual Negative (Negative) 07/24/21 Range/Units 20:00 WBC (3.8-10.6) k/uL RBC (3.80-5.40) m/uL Hgb (11.4-16.0) gm/dL Hct (34.0-46.0) % MCV (80.0-100.0) fL MCH (25.0-35.0) pg MCHC (31.0-37.0) g/dL RDW (11.5-15.5) % Plt Count (150-450) k/uL MPV Neutrophils % % Lymphocytes % % Monocytes % % Eosinophils % % Basophils % % Neutrophils # (1.3-7.7) k/uL Lymphocytes # (1.0-4.8) k/uL Monocytes # (0-1.0) k/uL Eosinophils # (0-0.7) k/uL Basophils # (0-0.2) k/uL VBG pH 7.41 (7.31-7.41) VBG pCO2 38 (37-51) mmHg VBG HCO3 23 L (24-28) mmol/L Sodium (137-145) mmol/L Potassium (3.5-5.1) mmol/L Chloride (98-107) mmol/L Carbon Dioxide (22-30) mmol/L Anion Gap mmol/L BUN (7-17) mg/dL Creatinine (0.52-1.04) mg/dL Est GFR (CKD-EPI)AfAm (>60 ml/min/1.73 sqM) Est GFR (CKD-EPI)NonAf (>60 ml/min/1.73 sqM) Glucose (74-99) mg/dL POC Glucose (mg/dL) (75-99) mg/dL POC Glu [employer] ID Calcium (8.4-10.2) mg/dL Magnesium (1.6-2.3) mg/dL Total Bilirubin (0.2-1.3) mg/dL AST (14-36) U/L ALT (4-34) U/L Alkaline Phosphatase (38-126) U/L Total Protein (6.3-8.2) g/dL Albumin (3.5-5.0) g/dL Acetone, Qual (Negative) - Radiology Data Left foot x-rays: There is some erosion of the second MP joint that could relate to osteomyelitis. Similar changes also present in the third and fourth metatarsal heads. Destructive changes at the base of the little toe at the MP joint also suggestive of osteomyelitis. Disposition Clinical Impression: Hyperglycemia, Cellulitis of foot Narrative: Suspected left foot osteomyelitis Disposition: ADMITTED IP TO THIS HOSP Condition: Stable Is patient prescribed a controlled substance at d/c from ED?: No Referrals: Esvin Ramirez DO [Primary Care Provider] - 1-2 days Time of Disposition: 22:26
[2021-07-24 19:19] LABS: Glucose,Whole Blood 286 mg/dL (75-99)
[2021-07-24 21:06] LABS: Basophils % (A) 0 %; Eosinophils # (A) 0.1 k/uL (0-0.7); Eosinophils % (A) 2 %; HCT 44.9 % (34.0-46.0); HGB 14.4 gm/dL (11.4-16.0); Lymphocytes # (A) 0.7 k/uL (1.0-4.8); Lymphocytes % (A) 12 %; MCH 28.1 pg (25.0-35.0); MCHC 32.1 g/dL (31.0-37.0); MCV 87.6 fL (80.0-100.0); Mean Platelet Volume 7.6; Monocytes # (A) 0.3 k/uL (0-1.0); Monocytes % (A) 6 %; Neutrophils # (A) 4.4 k/uL (1.3-7.7); Neutrophils % (A) 78 %; Platelet Count 206 k/uL (150-450); RBC 5.12 m/uL (3.80-5.40); RDW 14.9 % (11.5-15.5); WBC 5.7 k/uL (3.8-10.6)
[2021-07-24 21:16] LABS: ALT 12 U/L (4-34); AST 15 U/L (14-36); African American GFR (CKD) >90 (>60 ml/min/1.73 sqM); Albumin 3.2 g/dL (3.5-5.0); Alkaline Phosphatase 81 U/L (38-126); Anion Gap 8 mmol/L; Blood Urea Nitrogen 21 mg/dL (7-17); Calcium 8.7 mg/dL (8.4-10.2); Carbon Dioxide 23 mmol/L (22-30); Chloride 104 mmol/L (98-107); Glucose 261 mg/dL (74-99); Magnesium 1.1 mg/dL (1.6-2.3); Non-African American GFR(CKD) 80 (>60 ml/min/1.73 sqM); Potassium 4.2 mmol/L (3.5-5.1); Sodium 135 mmol/L (137-145); Total Bilirubin 0.3 mg/dL (0.2-1.3); Total Protein 6.6 g/dL (6.3-8.2)
[2021-07-24 21:30] LABS: VBG PH 7.41 (7.31-7.41)
--- NOTE | 2021-07-24 22:05 | XR ---
EXAMINATION TYPE: XR foot complete LT DATE OF EXAM: 07/24/2021 COMPARISON: 08/20/2019 HISTORY: Foot infection TECHNIQUE: 3 views FINDINGS: There is amputation deformity of the third and fourth toes. There is some erosion at the th ird and fourth metatarsal heads. There is erosion at the base of the proximal phalanx of the second t oe. There is plantar calcaneal spurring. There is some erosion at the base of the proximal phalanx of the little toe. IMPRESSION: There is some erosion at the second MP joint that could relate to osteomyelitis. Similar changes also present in the third and fourth metatarsal heads. Destructive changes at the base of the little toe at the MP joint also suggestive of osteomyelitis.
[2021-07-24] MEDS ORDERED: PIPERACILLIN-TAZOBACTAM 3.375 GM in SODIUM CHLORIDE 0.9% 100 ML IVPB STA (22:06)
[2021-07-24] MEDS ORDERED: VANCOMYCIN IV PER PHARMACY 1 EACH MISC MISCELLANE STA (22:06)
[2021-07-24] MEDS ORDERED: VANCOMYCIN 1,250 MG in SODIUM CHLORIDE 0.9% 250 ML IVPB ONE (22:15)
[2021-07-24] MEDS ORDERED: MORPHINE SULFATE 4 MG/ML SYRINGE IVP STA (22:54)
[2021-07-24 23:10] LABS: Appearance,Urine Cloudy (Clear); Bacteria,Urine Many /hpf; Bilirubin,Urine Negative (Negative); Blood,Urine Trace (Negative); Color,Urine Yellow; Glucose,Urine (UA) 3+ (Negative); Ketones,Urine Negative (Negative); Leukocyte Esterase,Urine Large (Negative); Nitrite,Urine Negative (Negative); PH, Urine 5.5 (5.0-8.0); Protein,Urine Trace (Negative); RBC,Urine 5 /hpf (0-5); Specific Gravity,Urine 1.015 (1.001-1.035); Squamous Epithelial Cell,Urine 1 /hpf (0-4); Urobilinogen,Urine <2.0 mg/dL (<2.0); WBC,Urine >182 /hpf (0-5)
[2021-07-25] MEDS ORDERED: ACETAMINOPHEN TAB 325 MG TAB PO PRN (01:23)
[2021-07-25] MEDS: LEVOTHYROXINE 50 MCG TAB PO SCH (06:07)
[2021-07-25 07:39] LABS: Glucose,Whole Blood 179 mg/dL (75-99)
[2021-07-25 08:17] LABS: Basophils % (A) 0 %; Eosinophils # (A) 0.1 k/uL (0-0.7); Eosinophils % (A) 1 %; HCT 31.7 % (34.0-46.0); Hypochromasia Slight; Lymphocytes # (A) 0.7 k/uL (1.0-4.8); Lymphocytes % (A) 10 %; MCH 27.8 pg (25.0-35.0); MCHC 31.8 g/dL (31.0-37.0); MCV 87.5 fL (80.0-100.0); Mean Platelet Volume 7.9; Monocytes # (A) 0.3 k/uL (0-1.0); Monocytes % (A) 4 %; Neutrophils # (A) 5.9 k/uL (1.3-7.7); Neutrophils % (A) 83 %; Platelet Count 313 k/uL (150-450); RBC 3.62 m/uL (3.80-5.40); RDW 14.8 % (11.5-15.5); WBC 7.1 k/uL (3.8-10.6)
[2021-07-25 08:21] LABS: HGB 10.1 gm/dL (11.4-16.0)
[2021-07-25 08:37] LABS: ALT 63 U/L (4-34); AST 145 U/L (14-36); African American GFR (CKD) >90 (>60 ml/min/1.73 sqM); Albumin 2.9 g/dL (3.5-5.0); Alkaline Phosphatase 264 U/L (38-126); Anion Gap 6 mmol/L; Blood Urea Nitrogen 13 mg/dL (7-17); Calcium 8.3 mg/dL (8.4-10.2); Carbon Dioxide 24 mmol/L (22-30); Chloride 108 mmol/L (98-107); Glucose 194 mg/dL (74-99); Non-African American GFR(CKD) 85 (>60 ml/min/1.73 sqM); Potassium 4.4 mmol/L (3.5-5.1); Sodium 138 mmol/L (137-145); Total Bilirubin 0.6 mg/dL (0.2-1.3); Total Protein 6.3 g/dL (6.3-8.2)
[2021-07-25] MEDS: LINAGLIPTIN 5 MG TABLET PO SCH (08:49)
[2021-07-25] MEDS: ATORVASTATIN 40 MG TAB PO SCH (08:49)
[2021-07-25] MEDS: glipiZIDE 10 MG TAB PO SCH ×2 (08:49→21:37)
[2021-07-25] MEDS: NIFEdipine XL 30 MG TAB.ER.24 PO SCH (08:49)
[2021-07-25] MEDS: PANTOPRAZOLE 40 MG TABLET PO SCH (08:49)
[2021-07-25] MEDS: HYDROcodone/APAP 5-325MG 1 EACH TAB PO PRN (10:40)
[2021-07-25] MEDS: CLOTRIMAZOLE 1% CREAM 30 GM TUBE TOPICAL SCH ×2 (10:40→21:38)
--- NOTE | 2021-07-25 10:58 | P.GSCN ---
History of Present Illness History of present illness: 86-year-old white female, patient is well known to me from the past. Patient has been coming to the wound clinic for local wound care. Patient had a third and fourth toe ray impression done in the past she's been treated with local wound care in the wound clinic now she came with the history of 4 hypertension with her and polyuria patient second toe left foot has ischemic changes. Jeny ent also had angiogram done in the past which showed severe infrapopliteal occlusive disease not a candidate for any intervention. We have discussed in the past that patient will need some major amputation but patient wants to wait wants to be treated with as a local wound care. On examination neck supple no bruit appreciated Chest is clear first and second sound present abdomen is soft nontender Vascular femorals are 1+ bilateral PTDP not palpable left foot has open wound posterior amputation and ischemic changes to the second toe Plan is patient is on vancomycin which will be continued we will use a local wound care she may need a to the second toe amputation or a major amputation we will discuss with the family at this point we will continue with IV antibiotic and local wound care follow with you Past Medical History Past Medical History: Coronary Artery Disease (CAD), Chest Pain / Angina, CVA/TIA, Diabetes Mellitus, Eye Disorder, GERD/Reflux, Hyperlipidemia, Hypertension, Osteoarthritis (OA), Syncope, Thyroid Disorder Additional Past Medical History / Comment(s): NIDDM type II, neuropathy bilateral hands, 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, dysphagia,esophageal strictures with dilation, hiatal hernia, L eye diabetic retinopathy/R eye blindness, bilateral ATKA, UTIS/urinary leakage, past bilateral feet sor es/osteomylitis, generalized pain, bilateral carpal tunnel syndrome, vertigo, hypothyroid, anemia History of Any Multi-Drug Resistant Organisms: None Reported Past Surgical History: Bladder Surgery, Cholecystectomy, Coronary Bypass/CABG, Heart Catheterization, Hysterectomy Additional Past Surgical History / Comment(s): 2007 CABG 4 vessel, EGDs with dilations, colonoscopies, cataract removal, D&C, bladder suspension, PICC, loop recorder, toe amputation may 2021 Past Anesthesia/Blood Transfusion Reactions: Motion Sickness, Postoperative Nausea & Vomiting (PONV) Past Psychological History: No Psychological Hx Reported Additional Psychological History / Comment(s): Pt resides alone, in May 2021. Just recently set up 24/7 care at home. Pt uses a walker to ambulate. She has a glucometer, b/p cuff and shower chair. Smoking Status: Never smoker Past Alcohol Use History: None Reported Past Drug Use History: None Reported - Past Family History Father Family Medical History: Liver Disease Additional Family Medical History / Comment(s): Father of cirrhosis. He was a drinker. Mother History Unknown: Yes Family Medical History: Unable to Obtain Additional Family Medical History / Comment(s): Pt states she does not know her mother's medical history, but knows she at the age of 62 yrs.. Son(s) Family Medical History: Unable to Obtain, Renal Disease Daughter(s) Family Medical History: Cancer Medications and Allergies Home Medications Medication Instructions Recorded Confirmed Type glyBURIDE [Diabeta] 5 mg PO BID 05/24/19 07/24/21 History Omeprazole [PriLOSEC] 20 mg PO DAILY 01/06/20 07/24/21 History Atorvastatin [Lipitor] 40 mg PO DAILY 12/02/20 07/24/21 History Acetaminophen Tab [Tylenol] 500 mg PO Q6H PRN 07/24/21 07/24/21 History Cholecalciferol [Vitamin D3 (25 50 mcg PO DAILY 07/24/21 07/24/21 History Mcg = 1000 Iu)] Collagenase [Santyl Ointment] 1 applic TOPICAL DAILY 07/24/21 07/24/21 History Cranberry Fruit Extract [Cranberry] 500 mg PO DAILY 07/24/21 07/24/21 History Levothyroxine Sodium [Synthroid] 50 mcg PO DAILY 07/24/21 07/24/21 History NIFEdipine [NIFEdipine ER] 30 mg PO DAILY 07/24/21 07/24/21 History sitaGLIPtin [Januvia] 100 mg PO DAILY 07/24/21 07/24/21 History Allergies Allergy/AdvReac Type Severity Reaction Status Date / Time aspirin Allergy Rash/Hives Verified 07/24/21 20:57 fish derived Allergy Rash/Hives Verified 07/24/21 20:57 Iodinated Contrast Media Allergy Rash/Hives Verified 07/24/21 20:57 [Iodinated Contrast Media - IV Dye] Iodine and Iodide Containing Allergy Rash/Hives Verified 07/24/21 20:57 Produc shellfish derived [Shellfish] Allergy Rash/Hives Verified 07/24/21 20:57 sulfamethoxazole Allergy Itching Verified 07/24/21 20:57 [From Bactrim] trimethoprim [From Bactrim] Allergy Itching Verified 07/24/21 20:57 Surgical - Exam Vital Signs Temp Pulse Resp BP Pulse Ox 98.8 F 73 16 162/64 99 07/24/21 18:47 07/24/21 18:47 07/24/21 18:47 07/24/21 18:47 07/24/21 18:47 Results - Labs 07/25/21 07:59 07/25/21 07:59 Abnormal Lab Results - Last 24 Hours (Table) 07/24/21 07/24/21 07/24/21 Range/Units 19:18 20:00 20:00 RBC (3.80-5.40) m/uL Hgb (11.4-16.0) gm/dL Hct (34.0-46.0) % Lymphocytes # 0.7 L (1.0-4.8) k/uL VBG HCO3 (24-28) mmol/L Sodium 135 L (137-145) mmol/L Chloride (98-107) mmol/L BUN 21 H (7-17) mg/dL Glucose 261 H (74-99) mg/dL POC Glucose (mg/dL) 286 H (75-99) mg/dL Calcium (8.4-10.2) mg/dL Magnesium 1.1 L (1.6-2.3) mg/dL AST (14-36) U/L ALT (4-34) U/L Alkaline Phosphatase (38-126) U/L Albumin 3.2 L (3.5-5.0) g/dL Urine Appearance (Clear) Urine Protein (Negative) Urine Glucose (UA) (Negative) Urine Blood (Negative) Ur Leukocyte Esterase (Negative) Urine WBC (0-5) /hpf Urine WBC Clumps (None) /hpf Urine Bacteria (None) /hpf 07/24/21 07/24/21 07/25/21 Range/Units 20:00 22:00 07:37 RBC (3.80-5.40) m/uL Hgb (11.4-16.0) gm/dL Hct (34.0-46.0) % Lymphocytes # (1.0-4.8) k/uL VBG HCO3 23 L (24-28) mmol/L Sodium (137-145) mmol/L Chloride (98-107) mmol/L BUN (7-17) mg/dL Glucose (74-99) mg/dL POC Glucose (mg/dL) 179 H (75-99) mg/dL Calcium (8.4-10.2) mg/dL Magnesium (1.6-2.3) mg/dL AST (14-36) U/L ALT (4-34) U/L Alkaline Phosphatase (38-126) U/L Albumin (3.5-5.0) g/dL Urine Appearance Cloudy H (Clear) Urine Protein Trace H (Negative) Urine Glucose (UA) 3+ H (Negative) Urine Blood Trace H (Negative) Ur Leukocyte Esterase Large H (Negative) Urine WBC >182 H (0-5) /hpf Urine WBC Clumps Many H (None) /hpf Urine Bacteria Many H (None) /hpf 07/25/21 07/25/21 Range/Units 07:59 07:59 RBC 3.62 L (3.80-5.40) m/uL Hgb 10.1 L D (11.4-16.0) gm/dL Hct 31.7 L (34.0-46.0) % Lymphocytes # 0.7 L (1.0-4.8) k/uL VBG HCO3 (24-28) mmol/L Sodium (137-145) mmol/L Chloride 108 H (98-107) mmol/L BUN (7-17) mg/dL Glucose 194 H (74-99) mg/dL POC Glucose (mg/dL) (75-99) mg/dL Calcium 8.3 L (8.4-10.2) mg/dL Magnesium (1.6-2.3) mg/dL AST 145 H (14-36) U/L ALT 63 H (4-34) U/L Alkaline Phosphatase 264 H (38-126) U/L Albumin 2.9 L (3.5-5.0) g/dL Urine Appearance (Clear) Urine Protein (Negative) Urine Glucose (UA) (Negative) Urine Blood (Negative) Ur Leukocyte Esterase (Negative) Urine WBC (0-5) /hpf Urine WBC Clumps (None) /hpf Urine Bacteria (None) /hpf Diabetes panel 07/24/21 07/25/21 Range/Units 20:00 07:59 Sodium 135 L 138 (137-145) mmol/L Potassium 4.2 4.4 (3.5-5.1) mmol/L Chloride 104 108 H (98-107) mmol/L Carbon Dioxide 23 24 (22-30) mmol/L BUN 21 H 13 (7-17) mg/dL Creatinine 0.69 0.58 (0.52-1.04) mg/dL Glucose 261 H 194 H (74-99) mg/dL Calcium 8.7 8.3 L (8.4-10.2) mg/dL AST 15 145 H (14-36) U/L ALT 12 63 H (4-34) U/L Alkaline Phosphatase 81 264 H (38-126) U/L Total Protein 6.6 6.3 (6.3-8.2) g/dL Albumin 3.2 L 2.9 L (3.5-5.0) g/dL Calcium panel 07/24/21 07/25/21 Range/Units 20:00 07:59 Calcium 8.7 8.3 L (8.4-10.2) mg/dL Albumin 3.2 L 2.9 L (3.5-5.0) g/dL Pituitary panel 07/24/21 07/25/21 Range/Units 20:00 07:59 Sodium 135 L 138 (137-145) mmol/L Potassium 4.2 4.4 (3.5-5.1) mmol/L Chloride 104 108 H (98-107) mmol/L Carbon Dioxide 23 24 (22-30) mmol/L BUN 21 H 13 (7-17) mg/dL Creatinine 0.69 0.58 (0.52-1.04) mg/dL Glucose 261 H 194 H (74-99) mg/dL Calcium 8.7 8.3 L (8.4-10.2) mg/dL Adrenal panel 07/24/21 07/25/21 Range/Units 20:00 07:59 Sodium 135 L 138 (137-145) mmol/L Potassium 4.2 4.4 (3.5-5.1) mmol/L Chloride 104 108 H (98-107) mmol/L Carbon Dioxide 23 24 (22-30) mmol/L BUN 21 H 13 (7-17) mg/dL Creatinine 0.69 0.58 (0.52-1.04) mg/dL Glucose 261 H 194 H (74-99) mg/dL Calcium 8.7 8.3 L (8.4-10.2) mg/dL Total Bilirubin 0.3 0.6 (0.2-1.3) mg/dL AST 15 145 H (14-36) U/L ALT 12 63 H (4-34) U/L Alkaline Phosphatase 81 264 H (38-126) U/L Total Protein 6.6 6.3 (6.3-8.2) g/dL Albumin 3.2 L 2.9 L (3.5-5.0) g/dL
[2021-07-25 11:45] LABS: Glucose,Whole Blood 186 mg/dL (75-99)
[2021-07-25] MEDS: CHOLECALCIFEROL 25 MCG (1000 IU) TABLET PO SCH (14:13)
[2021-07-25] MEDS: NON FORMULARY DRUG (Cranberry Fruit Extract [Cranberry] 500 MG Tablet) PO SCH (14:13)
[2021-07-25] MEDS: COLLAGENASE 250 UNIT/GM OINTMENT 30 GM TUBE TOPICAL SCH (14:21)
[2021-07-25] MEDS ORDERED: VANCOMYCIN 1,250 MG in SODIUM CHLORIDE 0.9% 250 ML IVPB SCH ×2 (16:00→23:00)
--- NOTE | 2021-07-25 16:27 | P.HPIM ---
History of Present Illness H&P Date: 07/25/21 Chief Complaint: Gangrene toe History of presenting complaint: This is a pleasant 86-year-old patient who follows with Dr. Ramirez. Chronic stable medical conditions include coronary coronary artery disease, left-sided weakness from prior stroke, diabetes, blind in the right eye, hypertension, hyperlipidemia, hypothyroid, chronic pain, osteoarthritis, peripheral neuropath y, esophageal strictures , urinary incontinence. baseline uses a walker. Lives with her . 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 Prior angiogram showed severe infrapopliteal occlusive disease. Patient has not been keen for any amputation and has therefore just been having wound care and follows at the wound care center. Patient was also another granddaughter because left foot second toe is totally gangrenous. Some pain is present. No drainage. No fever no chills. Appetite is fair. Dr. Langley and earlier spoke with the patient and patient is hesitant to amputation. Review of systems: GEN.: Tired EYES: Blind in the right eye HEENT: Decreased hearing NECK: None RESPIRATORY: None CARDIOVASCULAR: None GASTROINTESTINAL: None GENITOURINARY: None MUSCULOSKELETAL: Joint pains, muscle weakness LYMPHATICS: None HEMATOLOGICAL: None PSYCHIATRY: None NEUROLOGICAL: Peripheral neuropathy, blind in the right eye Past medical history to include: CAD, left-sided weakness from prior stroke, diabetes, blind in the right eye, hypertension, hyperlipidemia, hypothyroid, chronic pain, osteoarthritis, peripheral neuropathy, esophageal stricture, urinary incontinence, uses a walker, PAD Social history: Does not smoke or drink alcohol. . Does use a walker Family history: Cancer. Father of cirrhosis, from alcoholism Physical examination: VITAL SIGNS: 98, 62, 16, 166/62, 96% room air GENERAL: [BMI 28.3, laying in bed awake, tired]. EYES: [Blind in the right eye]l. HEENT: [External appearance of nose and ears normal, oral cavity grossly normal]. NECK: [JVD not raised; masses not palpable]. HEART: [First and second heart sounds are normal; no edema]. LUNGS:[ Respiratory rate normal; clear to auscultation]. ABDOMEN: [Soft, nontender, liver spleen not palpable, no masses palpable]. PSYCH: [Alert and oriented x3; mood and affect theresa]l. MUSCULOSKELETAL:No Clubbing/cyanosis;muscles-grossly intact. Wound at the base of the left foot third and fourth toe. Left foot second toe dry gangrene. NEUROLOGICAL: [Cranial nerves grossly intact; no facial asymmetry, power and sensation grossly intact]. Chronic left-sided weakness. Blind in the right eye. LYMPHATICS: [No lymph nodes palpable in the axilla and neck].. INVESTIGATIONS, reviewed in the clinical context White count 7.1 hemoglobin 10.1 platelets 313 sodium 138 potassium 4.4 creatinine 0.58 UA positive for leukoesterase, WBC, Coronavirus [PCR]: Not detected Assessment and plan: -Left foot second toe dry gangrene. With underlying severe iliofemoral disease. Infection less likely. Cannot be ruled out. Discussed with the patient. She is agreeable for toe amputation. This was communicated to Dr. Langley. IV antibiotics per ID. -Essential hypertension: Uncontrolled Procardia XL 30 mg a day. Add lisinopril hydrochlorothiazide 20/12.5. Lopressor 12.5 by mouth twice a day -chronic right shoulder dysfunction -Coronary artery disease, prior history of bypass 2007 Had Lopressor, Zestoretic -Diabetes mellitus type 2 on oral hypoglycemic, uncontrolled with hyperglycemia glyburide ; follow Accu-Cheks. Dietitian -Blind in the right eye, chronic -Hyperlipidemia Continue Lipitor -Hypothyroidism Continue Synthroid -Primary osteoarthritis Continue pain medications -Diabetic peripheral neuropathy -Chronic urinary incontinence Depend -Chronic gait dysfunction uses a walker Add Lopressor 12.5 by mouth twice a day, lisinopril hydrochlorothiazide 20/12.5 daily at bedtime. Consult cardiology for perioperative care. Consultation to vascular and ID. Home medications resumed. Follow Accu-Cheks. Santyl ointment in the meantime. Discussed with patient. Given the complexity and severity of patient's condition expect the patient to be in the hospital at least for 2 overnights 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, dysphagia,esophageal strictures with dilation, hiatal hernia, L eye diabetic retinopathy/R eye blindness, bilateral T[place]K, UTIS/urinary leakage, past bilateral feet sores/osteomylitis, generalized pain, bilateral carpal tunnel syndrome, vertigo, hypothyroid, anemia History of Any Multi-Drug Resistant Organisms: None Reported Past Surgical History: Bladder Surgery, Cholecystectomy, Coronary Bypass/CABG, Heart Catheterization, Hysterectomy Additional Past Surgical History / Comment(s): 2007 CABG 4 vessel, EGDs with dilations, colonoscopies, cataract removal, D&C, bladder suspension, PICC, loop recorder, toe amputation may 2021 Past Anesthesia/Blood Transfusion Reactions: Motion Sickness, Postoperative Nausea & Vomiting (PONV) Past Psychological History: No Psychological Hx Reported Additional Psychological History / Comment(s): Pt resides alone, in May 2021. Just recently set up / care at home. Pt uses a walker to ambulate. She has a glucometer, b/p cuff and shower chair. Smoking Status: Never smoker Past Alcohol Use History: None Reported Past Drug Use History: None Reported - Past Family History Father Family Medical History: Liver Disease Additional Family Medical History / Comment(s): Father of cirrhosis. He was a drinker. Mother History Unknown: Yes Family Medical History: Unable to Obtain Additional Family Medical History / Comment(s): Pt states she does not know her mother's medical history, but knows she at the age of 62 yrs.. Son(s) Family Medical History: Unable to Obtain, Renal Disease Daughter(s) Family Medical History: Cancer Medications and Allergies Home Medications Medication Instructions Recorded Confirmed Type glyBURIDE [Diabeta] 5 mg PO BID 05/24/19 07/24/21 History Omeprazole [PriLOSEC] 20 mg PO DAILY 01/06/20 07/24/21 History Atorvastatin [Lipitor] 40 mg PO DAILY 12/02/20 07/24/21 History Acetaminophen Tab [Tylenol] 500 mg PO Q6H PRN 07/24/21 07/24/21 History Cholecalciferol [Vitamin D3 (25 50 mcg PO DAILY 07/24/21 07/24/21 History Mcg = 1000 Iu)] Collagenase [Santyl Ointment] 1 applic TOPICAL DAILY 07/24/21 07/24/21 History Cranberry Fruit Extract [Cranberry] 500 mg PO DAILY 07/24/21 07/24/21 History Levothyroxine Sodium [Synthroid] 50 mcg PO DAILY 07/24/21 07/24/21 History NIFEdipine [NIFEdipine ER] 30 mg PO DAILY 07/24/21 07/24/21 History sitaGLIPtin [Januvia] 100 mg PO DAILY 07/24/21 07/24/21 History Allergies Allergy/AdvReac Type Severity Reaction Status Date / Time aspirin Allergy Rash/Hives Verified 07/24/21 20:57 fish derived Allergy Rash/Hives Verified 07/24/21 20:57 Iodinated Contrast Media Allergy Rash/Hives Verified 07/24/21 20:57 [Iodinated Contrast Media - IV Dye] Iodine and Iodide Containing Allergy Rash/Hives Verified 07/24/21 20:57 Produc shellfish derived [Shellfish] Allergy Rash/Hives Verified 07/24/21 20:57 sulfamethoxazole Allergy Itching Verified 07/24/21 20:57 [From Bactrim] trimethoprim [From Bactrim] Allergy Itching Verified 07/24/21 20:57 Physical Exam Vitals: Vital Signs Temp Pulse Pulse Resp BP BP Pulse Ox 07/25/21 08:00 98 F 62 16 166/62 96 07/25/21 00:53 97.7 F 71 18 176/65 98 07/24/21 18:47 98.8 F 73 16 162/64 99 Intake and Output 07/24/21 07/25/21 07/25/21 22:59 06:59 14:59 Intake Total 118 Balance 118 Intake: Oral 118 Other: Voiding Method Bedpan Bedpan # Voids 4 Weight 72.575 kg 72.575 kg Results CBC & Chem 7: 07/25/21 07:59 07/25/21 07:59 Labs: Abnormal Lab Results - Last 24 Hours (Table) 07/24/21 07/24/21 07/24/21 Range/Units 19:18 20:00 20:00 RBC (3.80-5.40) m/uL Hgb (11.4-16.0) gm/dL Hct (34.0-46.0) % Lymphocytes # 0.7 L (1.0-4.8) k/uL VBG HCO3 (24-28) mmol/L Sodium 135 L (137-145) mmol/L Chloride (98-107) mmol/L BUN 21 H (7-17) mg/dL Glucose 261 H (74-99) mg/dL POC Glucose (mg/dL) 286 H (75-99) mg/dL Calcium (8.4-10.2) mg/dL Magnesium 1.1 L (1.6-2.3) mg/dL AST (14-36) U/L ALT (4-34) U/L Alkaline Phosphatase (38-126) U/L Albumin 3.2 L (3.5-5.0) g/dL Urine Appearance (Clear) Urine Protein (Negative) Urine Glucose (UA) (Negative) Urine Blood (Negative) Ur Leukocyte Esterase (Negative) Urine WBC (0-5) /hpf Urine WBC Clumps (None) /hpf Urine Bacteria (None) /hpf 07/24/21 07/24/21 07/25/21 Range/Units 20:00 22:00 07:37 RBC (3.80-5.40) m/uL Hgb (11.4-16.0) gm/dL Hct (34.0-46.0) % Lymphocytes # (1.0-4.8) k/uL VBG HCO3 23 L (24-28) mmol/L Sodium (137-145) mmol/L Chloride (98-107) mmol/L BUN (7-17) mg/dL Glucose (74-99) mg/dL POC Glucose (mg/dL) 179 H (75-99) mg/dL Calcium (8.4-10.2) mg/dL Magnesium (1.6-2.3) mg/dL AST (14-36) U/L ALT (4-34) U/L Alkaline Phosphatase (38-126) U/L Albumin (3.5-5.0) g/dL Urine Appearance Cloudy H (Clear) Urine Protein Trace H (Negative) Urine Glucose (UA) 3+ H (Negative) Urine Blood Trace H (Negative) Ur Leukocyte Esterase Large H (Negative) Urine WBC >182 H (0-5) /hpf Urine WBC Clumps Many H (None) /hpf Urine Bacteria Many H (None) /hpf 07/25/21 07/25/21 07/25/21 Range/Units 07:59 07:59 11:44 RBC 3.62 L (3.80-5.40) m/uL Hgb 10.1 L D (11.4-16.0) gm/dL Hct 31.7 L (34.0-46.0) % Lymphocytes # 0.7 L (1.0-4.8) k/uL VBG HCO3 (24-28) mmol/L Sodium (137-145) mmol/L Chloride 108 H (98-107) mmol/L BUN (7-17) mg/dL Glucose 194 H (74-99) mg/dL POC Glucose (mg/dL) 186 H (75-99) mg/dL Calcium 8.3 L (8.4-10.2) mg/dL Magnesium (1.6-2.3) mg/dL AST 145 H (14-36) U/L ALT 63 H (4-34) U/L Alkaline Phosphatase 264 H (38-126) U/L Albumin 2.9 L (3.5-5.0) g/dL Urine Appearance (Clear) Urine Protein (Negative) Urine Glucose (UA) (Negative) Urine Blood (Negative) Ur Leukocyte Esterase (Negative) Urine WBC (0-5) /hpf Urine WBC Clumps (None) /hpf Urine Bacteria (None) /hpf Microbiology - Last 24 Hours (Table) 07/24/21 22:00 Wound Culture - Preliminary Foot - Left 07/24/21 22:00 Urine Culture - Preliminary Urine,Voided Thrombosis Risk Factor Assmnt - Choose All That Apply Each Factor Represents 1 point: Obesity (BMI >25) Other Risk Factors: Yes Each Risk Factor Represents 3 Points: Age 75 years or older Thrombosis Risk Factor Assessment Total Risk Factor Score: 4 Thrombosis Risk Factor Assessment Level: Moderate Risk
[2021-07-25 16:39] LABS: Glucose,Whole Blood 296 mg/dL (75-99)
[2021-07-25 21:07] LABS: Glucose,Whole Blood 277 mg/dL (75-99)
[2021-07-25] MEDS: METOPROLOL TARTRATE 12.5 MG TAB PO SCH (21:37)
[2021-07-25] MEDS: LISINOPRIL-HCTZ 20-12.5 MG 1 EACH TAB PO SCH (21:38)
[2021-07-25] MEDS: INSULIN ASPART (NovoLOG) 100 UNIT/ML VIAL SQ SCH (21:38)
--- NOTE | 2021-07-25 22:10 | P.CONS ---
History of Present Illness - Reason for Consult Consult date: 07/25/21 left foot infection Requesting physician: Brad Aleman - Chief Complaint elevated blood sugars x few days - History of Present Illness History of present illness : Patient is 86-year-old female with a past medical history significant for left third and fourth diabetic infection status post completion in this patient with underlying diabetes mellitus patient has been br ought into the ER for evaluation of increasing blood sugar in this patient who did have symptoms of polyuria for a day or 2 before presentation to the hospital patient on arrival to the ER was afebrile and no fever has been reported patient did have a normal white count creatinine was normal limits other than mildly elevated urine is positive jacboo PCR was negative patient was noticed to have a gangrenous changes to the left second toe that has prompted this infectious disease consultation local wound culture had blood which is currently pending patient has been complaining of some 100 aching pain to the left foot 2-3 out of 10 evaluation note for splinting drainage no chest pain shortness of breath or cough no abdominal pain or diarrhea Review of system: CONSTITUTIONAL: Positive for weakness denies high-grade fever. EYES: No complaint. ENT: No complaint. RESPIRATORY: No complaint. CARDIOVASCULAR: No complaint. GENITOURINARY: As per history of present illness t. GASTROINTESTINAL as per history of present illness. MUSCULOSKELETAL: As per history of present illness. INTEGUMENTARY: No complaint. PSYCHOLOGIC: No complaint. ENDOCRINE: No complaint. NEUROLOGIC: No complaint. Past medical history : Reviewed, documented below Past surgical history : Reviewed, documented below Social history: Reviewed, documented below Medications: Reviewed, as documented below EXAMINATION: Vital sigans= Reviewed and documented below GENERAL DESCRIPTION: Elderly female lying in bed, no distress. No tachypnea or accessory muscle of respiration use. HEENT: Shows Pallor , no scleral icterus. Oral mucous membrane is dry. NECK: Trachea central, no thyromegaly. LUNGS: Unlabored breathing. Clear to auscultation anteriorly. No wheeze or crackle. HEART: S1, S2, regular rate and rhythm. ABDOMEN: Soft, no tenderness , guarding or rigidity EXTREMITIES: Left second toe is swollen and has some necrotic changes wound was amputation of the third and fourth toe from base looks well minimal slough tissue no surrounding redness or drainage. SKIN: No rash, no masses palpable. NEUROLOGICAL: The patient is awake, alert, oriented x3, mood and affect normal. LABS AND RADIOLOGY: Reviewed results see below Assessment : Patient has been brought to the hospital for elevated blood sugar source more likely left second toe gangrene/diabetic foot infection. Also has some polyuria and did have significantly positive UA and likely component of symptomatic urinary tract infection review of the previous consultations she grew MSSA E. coli Klebsiella all of them are sensitive pathogen Plan: 1-discontinue vancomycin 2-start the patient on Unasyn 3 g every 6 hours to cover for both UTI diabetic foot infection 3-local wound care with Santyl per vascular surgery We will follow on clinical condition and cultures to further adjust medication if needed Thank you for this consultation we will follow the patient along with you Past Medical History Past Medical History: Coronary Artery Disease (CAD), Chest Pain / Angina, CVA/TIA, Diabetes Mellitus, Eye Disorder, GERD/Reflux, Hyperlipidemia, Hypertension, Osteoarthritis (OA), Syncope, Thyroid Disorder Additional Past Medical History / Comment(s): NIDDM type II, neuropathy rebecca ateral hands, 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, dysphagia,esophageal strictures with dilation, hiatal hernia, L eye diabetic retinopathy/R eye blindness, bilateral [place], UTIS/urinary leakage, past bilateral feet sores/osteomylitis, generalized pain, bilateral carpal tunnel syndrome, vertigo, hypothyroid, anemia History of Any Multi-Drug Resistant Organisms: None Reported Past Surgical History: Bladder Surgery, Cholecystectomy, Coronary Bypass/CABG, Heart Catheterization, Hysterectomy Additional Past Surgical History / Comment(s): 2007 CABG 4 vessel, EGDs with dilations, colonoscopies, cataract removal, D&C, bladder suspension, PICC, loop recorder, toe amputation may 2021 Past Anesthesia/Blood Transfusion Reactions: Motion Sickness, Postoperative Nausea & Vomiting (PONV) Past Psychological History: No Psychological Hx Reported Additional Psychological History / Comment(s): Pt resides alone, in May 2021. Just recently set up 24/ care at home. Pt uses a walker to ambulate. She has a glucometer, b/p cuff and shower chair. Smoking Status: Never smoker Past Alcohol Use History: None Reported Past Drug Use History: None Reported - Past Family History Father Family Medical History: Liver Disease Additional Family Medical History / Comment(s): Father of cirrhosis. He was a drinker. Mother History Unknown: Yes Family Medical History: Unable to Obtain Additional Family Medical History / Comment(s): Pt states she does not know her mother's medical history, but knows she at the age of 62 yrs.. Son(s) Family Medical History: Unable to Obtain, Renal Disease Daughter(s) Family Medical History: Cancer Medications and Allergies Home Medications Medication Instructions Recorded Confirmed Type glyBURIDE [Diabeta] 5 mg PO BID 05/24/19 07/24/21 History Omeprazole [PriLOSEC] 20 mg PO DAILY 01/06/20 07/24/21 History Atorvastatin [Lipitor] 40 mg PO DAILY 12/02/20 07/24/21 History Acetaminophen Tab [Tylenol] 500 mg PO Q6H PRN 07/24/21 07/24/21 History Cholecalciferol [Vitamin D3 (25 50 mcg PO DAILY 07/24/21 07/24/21 History Mcg = 1000 Iu)] Collagenase [Santyl Ointment] 1 applic TOPICAL DAILY 07/24/21 07/24/21 History Cranberry Fruit Extract [Cranberry] 500 mg PO DAILY 07/24/21 07/24/21 History Levothyroxine Sodium [Synthroid] 50 mcg PO DAILY 07/24/21 07/24/21 History NIFEdipine [NIFEdipine ER] 30 mg PO DAILY 07/24/21 07/24/21 History sitaGLIPtin [Januvia] 100 mg PO DAILY 07/24/21 07/24/21 History Allergies Allergy/AdvReac Type Severity Reaction Status Date / Time aspirin Allergy Rash/Hives Verified 07/24/21 20:57 fish derived Allergy Rash/Hives Verified 07/24/21 20:57 Iodinated Contrast Media Allergy Rash/Hives Verified 07/24/21 20:57 [Iodinated Contrast Media - IV Dye] Iodine and Iodide Containing Allergy Rash/Hives Verified 07/24/21 20:57 Produc shellfish derived [Shellfish] Allergy Rash/Hives Verified 07/24/21 20:57 sulfamethoxazole Allergy Itching Verified 07/24/21 20:57 [From Bactrim] trimethoprim [From Bactrim] Allergy Itching Verified 07/24/21 20:57 Physical Exam Vitals: Vital Signs Temp Pulse Pulse Resp BP BP Pulse Ox 07/25/21 08:00 98 F 62 16 166/62 96 07/25/21 00:53 97.7 F 71 18 176/65 98 07/24/21 18:47 98.8 F 73 16 162/64 99 Intake and Output 07/24/21 07/25/21 07/25/21 22:59 06:59 14:59 Intake Total 118 Balance 118 Intake: Oral 118 Other: Voiding Method Bedpan Bedpan # Voids 4 Weight 72.575 kg 72.575 kg Results CBC & Chem 7: 07/25/21 07:59 07/25/21 07:59 Labs: Abnormal Lab Results - Last 24 Hours (Table) 07/24/21 07/24/21 07/24/21 Range/Units 19:18 20:00 20:00 RBC (3.80-5.40) m/uL Hgb (11.4-16.0) gm/dL Hct (34.0-46.0) % Lymphocytes # 0.7 L (1.0-4.8) k/uL VBG HCO3 (24-28) mmol/L Sodium 135 L (137-145) mmol/L Chloride (98-107) mmol/L BUN 21 H (7-17) mg/dL Glucose 261 H (74-99) mg/dL POC Glucose (mg/dL) 286 H (75-99) mg/dL Calcium (8.4-10.2) mg/dL Magnesium 1.1 L (1.6-2.3) mg/dL AST (14-36) U/L ALT (4-34) U/L Alkaline Phosphatase (38-126) U/L Albumin 3.2 L (3.5-5.0) g/dL Urine Appearance (Clear) Urine Protein (Negative) Urine Glucose (UA) (Negative) Urine Blood (Negative) Ur Leukocyte Esterase (Negative) Urine WBC (0-5) /hpf Urine WBC Clumps (None) /hpf Urine Bacteria (None) /hpf 07/24/21 07/24/21 07/25/21 Range/Units 20:00 22:00 07:37 RBC (3.80-5.40) m/uL Hgb (11.4-16.0) gm/dL Hct (34.0-46.0) % Lymphocytes # (1.0-4.8) k/uL VBG HCO3 23 L (24-28) mmol/L Sodium (137-145) mmol/L Chloride (98-107) mmol/L BUN (7-17) mg/dL Glucose (74-99) mg/dL POC Glucose (mg/dL) 179 H (75-99) mg/dL Calcium (8.4-10.2) mg/dL Magnesium (1.6-2.3) mg/dL AST (14-36) U/L ALT (4-34) U/L Alkaline Phosphatase (38-126) U/L Albumin (3.5-5.0) g/dL Urine Appearance Cloudy H (Clear) Urine Protein Trace H (Negative) Urine Glucose (UA) 3+ H (Negative) Urine Blood Trace H (Negative) Ur Leukocyte Esterase Large H (Negative) Urine WBC >182 H (0-5) /hpf Urine WBC Clumps Many H (None) /hpf Urine Bacteria Many H (None) /hpf 07/25/21 07/25/21 07/25/21 Range/Units 07:59 07:59 11:44 RBC 3.62 L (3.80-5.40) m/uL Hgb 10.1 L D (11.4-16.0) gm/dL Hct 31.7 L (34.0-46.0) % Lymphocytes # 0.7 L (1.0-4.8) k/uL VBG HCO3 (24-28) mmol/L Sodium (137-145) mmol/L Chloride 108 H (98-107) mmol/L BUN (7-17) mg/dL Glucose 194 H (74-99) mg/dL POC Glucose (mg/dL) 186 H (75-99) mg/dL Calcium 8.3 L (8.4-10.2) mg/dL Magnesium (1.6-2.3) mg/dL AST 145 H (14-36) U/L ALT 63 H (4-34) U/L Alkaline Phosphatase 264 H (38-126) U/L Albumin 2.9 L (3.5-5.0) g/dL Urine Appearance (Clear) Urine Protein (Negative) Urine Glucose (UA) (Negative) Urine Blood (Negative) Ur Leukocyte Esterase (Negative) Urine WBC (0-5) /hpf Urine WBC Clumps (None) /hpf Urine Bacteria (None) /hpf Microbiology - Last 24 Hours (Table) 07/24/21 22:00 Wound Culture - Preliminary Foot - Left 07/24/21 22:00 Urine Culture - Preliminary Urine,Voided
[2021-07-25] MEDS: AMPICILLIN-SULBACTAM 3 GM in SODIUM CHLORIDE 0.9% 100 ML IVPB SCH (23:35)
[2021-07-26] MEDS: AMPICILLIN-SULBACTAM 3 GM in SODIUM CHLORIDE 0.9% 100 ML IVPB SCH ×4 (06:06→23:12)
[2021-07-26] MEDS: LEVOTHYROXINE 50 MCG TAB PO SCH (06:07)
[2021-07-26] MEDS: NON FORMULARY DRUG (Cranberry Fruit Extract [Cranberry] 500 MG Tablet) PO SCH (07:29)
[2021-07-26 07:33] LABS: Glucose,Whole Blood 202 mg/dL (75-99)
[2021-07-26] MEDS: ATORVASTATIN 40 MG TAB PO SCH (07:37)
[2021-07-26] MEDS: PANTOPRAZOLE 40 MG TABLET PO SCH (07:37)
[2021-07-26] MEDS: LINAGLIPTIN 5 MG TABLET PO SCH (07:37)
[2021-07-26] MEDS: CHOLECALCIFEROL 25 MCG (1000 IU) TABLET PO SCH (07:37)
[2021-07-26] MEDS: glipiZIDE 10 MG TAB PO SCH ×2 (07:37→21:34)
[2021-07-26] MEDS: METOPROLOL TARTRATE 12.5 MG TAB PO SCH (07:37)
[2021-07-26] MEDS: CLOTRIMAZOLE 1% CREAM 30 GM TUBE TOPICAL SCH ×2 (07:38→21:35)
[2021-07-26] MEDS: COLLAGENASE 250 UNIT/GM OINTMENT 30 GM TUBE TOPICAL SCH (07:38)
[2021-07-26] MEDS: NIFEdipine XL 30 MG TAB.ER.24 PO SCH (07:38)
[2021-07-26] MEDS: INSULIN ASPART (NovoLOG) 100 UNIT/ML VIAL SQ SCH ×4 (07:38→21:34)
[2021-07-26] MEDS: HYDROcodone/APAP 5-325MG 1 EACH TAB PO PRN ×2 (07:49→18:08)
[2021-07-26 09:11] LABS: African American GFR (CKD) >90 (>60 ml/min/1.73 sqM); Anion Gap 6 mmol/L; Blood Urea Nitrogen 10 mg/dL (7-17); Calcium 8.5 mg/dL (8.4-10.2); Carbon Dioxide 26 mmol/L (22-30); Chloride 104 mmol/L (98-107); Glucose 235 mg/dL (74-99); Non-African American GFR(CKD) 83 (>60 ml/min/1.73 sqM); Potassium 3.9 mmol/L (3.5-5.1); Sodium 136 mmol/L (137-145)
[2021-07-26 11:50] LABS: Glucose,Whole Blood 229 mg/dL (75-99)
[2021-07-26 15:15] VITALS: BMI 28.3
--- NOTE | 2021-07-26 15:40 | P.PN ---
Progress Note - Text Progress Note Date: 07/26/21 Chief Complaint: Gangrene toe History of presenting complaint: This is a pleasant 86-year-old patient who follows with Dr. Ramirez. 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 baseline uses a walker. Lives with her . 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 Prior angiogram showed severe infrapopliteal occlusive disease. Patient has not been keen for any amputation and has therefore just been having wound care and follows at the wound care center. Patient was also another granddaughter because left foot second toe is totally gangrenous. Some pain is present. No drainage. No fever no chills. Appetite is fair. Dr. Langley and earlier spoke with the patient and patient is hesitant to amputation. July 26: Pain control. Eating fair. On IV Unasyn. Review of systems: Was done for constitutional, cardiovascular, GI, pulmonary. relevant finding as above Active Medications Acetaminophen (Acetaminophen Tab 325 Mg Tab) 650 mg PO Q6HR PRN PRN Reason: Fever and/ or Pain Last Admin: 07/25/21 01:29 Dose: 650 mg Documented by: Hydrocodone Bitart/Acetaminophen (Hydrocodone/Apap 5-325mg 1 Each Tab) 1 each PO Q6HR PRN PRN Reason: moderate Pain Last Admin: 07/26/21 07:49 Dose: 1 each Documented by: Atorvastatin Calcium (Atorvastatin 40 Mg Tab) 40 mg PO DAILY LARRY Last Admin: 07/26/21 07:37 Dose: 40 mg Documented by: Cholecalciferol (Cholecalciferol 25 Mcg (1000 Iu) Tablet) 50 mcg PO DAILY LARRY Last Admin: 07/26/21 07:37 Dose: 50 mcg Documented by: Clotrimazole (Clotrimazole 1% Cream 30 Gm Tube) 1 applic TOPICAL BID LARRY; Protocol Last Admin: 07/26/21 07:38 Dose: 1 applic Documented by: Collagenase (Collagenase 250 Unit/Gm Ointment 30 Gm Tube) 1 applic TOPICAL DAILY [facility]; Protocol Last Admin: 07/26/21 07:38 Dose: 1 applic Documented by: Glipizide (Glipizide 10 Mg Tab) 10 mg PO BID [facility] Last Admin: 07/26/21 07:37 Dose: 10 mg Documented by: Lisinopril/HCTZ (Lisinopril-Hctz 20-12.5 Mg 1 Each Tab) 1 each PO HS [facility] Last Admin: 07/25/21 21:38 Dose: 1 each Documented by: Ampicillin Sodium/Sulbactam (Sodium 3 gm/ Sodium Chloride) 100 mls @ 200 mls/hr IVPB Q6HR [facility] Last Admin: 07/26/21 11:54 Dose: 200 mls/hr Documented by: Insulin Aspart (Insulin Aspart (Novolog) 100 Unit/Ml Vial) 0 unit SQ ACHS [facility]; Protocol Last Admin: 07/26/21 11:54 Dose: 3 unit Documented by: Levothyroxine Sodium (Levothyroxine 50 Mcg Tab) 50 mcg PO DAILY@0630 [facility] Last Admin: 07/26/21 06:07 Dose: 50 mcg Documented by: Linagliptin (Linagliptin 5 Mg Tablet) 5 mg PO DAILY [facility] Last Admin: 07/26/21 07:37 Dose: 5 mg Documented by: Metoprolol Tartrate (Metoprolol Tartrate 12.5 Mg Tab) 12.5 mg PO BID [facility] Last Admin: 07/26/21 07:37 Dose: 12.5 mg Documented by: Nifedipine (Nifedipine Xl 30 Mg Tab.Er.24) 30 mg PO DAILY [facility] Last Admin: 07/26/21 07:38 Dose: 30 mg Documented by: Non-Formulary Medication (Cranberry Fruit Extract Cranberry) 500 mg PO DAILY [facility] Last Admin: 07/26/21 07:29 Dose: Not Given Documented by: Pantoprazole Sodium (Pantoprazole 40 Mg Tablet) 40 mg PO AC-BRKFST [facility] Last Admin: 07/26/21 07:37 Dose: 40 mg Documented by: Past medical history to include: CAD, left-sided weakness from prior stroke, diabetes, blind in the right eye, hypertension, hyperlipidemia, hypothyroid, chronic pain, osteoarthritis, peripheral neuropathy, esophageal stricture, urinary incontinence, uses a walker, PAD Social history: Does not smoke or drink alcohol. . Does use a walker Family history: Cancer. Father of cirrhosis, from alcoholism Physical examination: VITAL SIGNS: 98.5, 70, 14, 166/78, 95% room air GENERAL: laying in bed awake, tired. EYES: Blind in the right eyel. HEENT: External appearance of nose and ears normal, oral cavity grossly normal. NECK: JVD not raised; masses not palpable. HEART: First and second heart sounds are normal; no edema. LUNGS: Respiratory rate normal; clear to auscultation. ABDOMEN: Soft, nontender, liver spleen not palpable, no masses palpable. PSYCH: Alert and oriented x3; mood and affect normal. MUSCULOSKELETAL:No Clubbing/cyanosis;muscles-grossly intact. Wound at the base of the left foot third and fourth toe. Left foot second toe dry gangrene. NEUROLOGICAL: Cranial nerves grossly intact; no facial asymmetry, power and sensation grossly intact. Chronic left-sided weakness. Blind in the right eye. INVESTIGATIONS, reviewed in the clinical context July 26: Sodium 136 potassium 3.9 creatinine 0.61. Accu-Chek 229 White count 7.1 hemoglobin 10.1 platelets 313 sodium 138 potassium 4.4 creatinine 0.58 UA positive for leukoesterase, WBC, Coronavirus PCR: Not detected Assessment and plan: -Left foot second toe gangrene. underlying severe iliofemoral disease. Possibly infection. : Slow to respond IV Unasyn. Being followed by vascular and ID -Essential hypertension: Uncontrolled Procardia XL 30 mg a day. lisinopril hydrochlorothiazide 20/12.5. Increase Lopressor 25 mg by mouth twice a day -chronic right shoulder dysfunction -Coronary artery disease, prior history of bypass 2007 Had Lopressor, Zestoretic -Diabetes mellitus type 2 on oral hypoglycemic, uncontrolled with hyperglycemia from infection glyburide ; follow Accu-Cheks. Dietitian. Add Levemir 10 units daily at bedtime -Blind in the right eye, chronic -Hyperlipidemia Continue Lipitor -Hypothyroidism Continue Synthroid -Primary osteoarthritis Continue pain medications -Diabetic peripheral neuropathy -Chronic urinary incontinence Depend -Chronic gait dysfunction uses a walker IV Unasyn. Santyl topical. Add Levemir 10 units at night. Increase Lopressor 25 mg twice a day
[2021-07-26 16:47] LABS: Glucose,Whole Blood 251 mg/dL (75-99)
[2021-07-26] MEDS ORDERED: INSULIN DETEMIR (LEVEMIR) 100 UNIT/ML SYR SQ SCH (21:00)
[2021-07-26] MEDS: METOPROLOL TARTRATE 25 MG TAB PO SCH (21:34)
[2021-07-26] MEDS: LISINOPRIL-HCTZ 20-12.5 MG 1 EACH TAB PO SCH (21:34)
[2021-07-26 21:38] LABS: Glucose,Whole Blood 333 mg/dL (75-99)
[2021-07-27] MEDS: HYDROcodone/APAP 5-325MG 1 EACH TAB PO PRN ×3 (01:33→18:48)
[2021-07-27] MEDS: AMPICILLIN-SULBACTAM 3 GM in SODIUM CHLORIDE 0.9% 100 ML IVPB SCH ×4 (06:01→23:45)
[2021-07-27] MEDS: LEVOTHYROXINE 50 MCG TAB PO SCH (06:01)
[2021-07-27] MEDS: NON FORMULARY DRUG (Cranberry Fruit Extract [Cranberry] 500 MG Tablet) PO SCH (06:58)
[2021-07-27 07:13] LABS: Glucose,Whole Blood 148 mg/dL (75-99)
[2021-07-27] MEDS: INSULIN ASPART (NovoLOG) 100 UNIT/ML VIAL SQ SCH ×4 (07:36→20:57)
[2021-07-27] MEDS: LINAGLIPTIN 5 MG TABLET PO SCH (07:37)
[2021-07-27] MEDS: ATORVASTATIN 40 MG TAB PO SCH (07:37)
[2021-07-27] MEDS: METOPROLOL TARTRATE 25 MG TAB PO SCH ×2 (07:37→20:34)
[2021-07-27] MEDS: NIFEdipine XL 30 MG TAB.ER.24 PO SCH (07:38)
[2021-07-27] MEDS: CHOLECALCIFEROL 25 MCG (1000 IU) TABLET PO SCH (07:38)
[2021-07-27] MEDS: CLOTRIMAZOLE 1% CREAM 30 GM TUBE TOPICAL SCH ×2 (07:38→20:34)
[2021-07-27] MEDS: PANTOPRAZOLE 40 MG TABLET PO SCH (07:38)
[2021-07-27] MEDS: glipiZIDE 10 MG TAB PO SCH ×2 (07:38→20:34)
[2021-07-27] MEDS: COLLAGENASE 250 UNIT/GM OINTMENT 30 GM TUBE TOPICAL SCH (07:39)
[2021-07-27 11:34] LABS: Glucose,Whole Blood 213 mg/dL (75-99)
[2021-07-27 16:58] LABS: Glucose,Whole Blood 177 mg/dL (75-99)
--- NOTE | 2021-07-27 18:52 | P.PN ---
Progress Note - Text Progress Note Date: 07/27/21 Chief Complaint: Gangrene toe History of presenting complaint: This is a pleasant 86-year-old patient who follows with Dr. Ramirez. 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 baseline uses a walker. Lives with her . 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 Prior angiogram showed severe infrapopliteal occlusive disease. Patient has not been keen for any amputation and has therefore just been having wound care and follows at the wound care center. Patient was also another granddaughter because left foot second toe is totally gangrenous. Some pain is present. No drainage. No fever no chills. Appetite is fair. Dr. Langley and earlier spoke with the patient and patient is hesitant to amputation. July 26: Pain control. Eating fair. On IV Unasyn. July 27: Oral intake fair. Pain controlled. On IV Unasyn. Review of systems: Was done for constitutional, cardiovascular, GI, pulmonary. relevant finding as above Active Medications Acetaminophen (Acetaminophen Tab 325 Mg Tab) 650 mg PO Q6HR PRN PRN Reason: Fever and/ or Pain Last Admin: 07/25/21 01:29 Dose: 650 mg Documented by: Hydrocodone Bitart/Acetaminophen (Hydrocodone/Apap 5-325mg 1 Each Tab) 1 each PO Q6HR PRN PRN Reason: moderate Pain Last Admin: 07/27/21 18:48 Dose: 1 each Documented by: Atorvastatin Calcium (Atorvastatin 40 Mg Tab) 40 mg PO DAILY LARRY Last Admin: 07/27/21 07:37 Dose: 40 mg Documented by: Cholecalciferol (Cholecalciferol 25 Mcg (1000 Iu) Tablet) 50 mcg PO DAILY LARR[facility] Last Admin: 07/27/21 07:38 Dose: 50 mcg Documented by: Clotrimazole (Clotrimazole 1% Cream 30 Gm Tube) 1 applic TOPICAL BID [facility]; Protocol Last Admin: 07/27/21 07:38 Dose: 1 applic Documented by: Collagenase (Collagenase 250 Unit/Gm Ointment 30 Gm Tube) 1 applic TOPICAL DAILY [facility]; Protocol Last Admin: 07/27/21 07:39 Dose: 1 applic Documented by: Glipizide (Glipizide 10 Mg Tab) 10 mg PO BID [facility] Last Admin: 07/27/21 07:38 Dose: 10 mg Documented by: Lisinopril/HCTZ (Lisinopril-Hctz 20-12.5 Mg 1 Each Tab) 1 each PO HS [facility] Last Admin: 07/26/21 21:34 Dose: 1 each Documented by: Ampicillin Sodium/Sulbactam (Sodium 3 gm/ Sodium Chloride) 100 mls @ 200 mls/hr IVPB Q6HR [facility] Last Admin: 07/27/21 17:36 Dose: 200 mls/hr Documented by: Insulin Aspart (Insulin Aspart (Novolog) 100 Unit/Ml Vial) 0 unit SQ [facility]; Protocol Last Admin: 07/27/21 17:35 Dose: 2 unit Documented by: Insulin Detemir (Insulin Detemir (Levemir) 100 Unit/Ml Syr) 10 unit SQ [facility] Last Admin: 07/26/21 21:36 Dose: 10 unit Documented by: Levothyroxine Sodium (Levothyroxine 50 Mcg Tab) 50 mcg PO DAILY@0630 [facility] Last Admin: 07/27/21 06:01 Dose: 50 mcg Documented by: Linagliptin (Linagliptin 5 Mg Tablet) 5 mg PO DAILY [facility] Last Admin: 07/27/21 07:37 Dose: 5 mg Documented by: Metoprolol Tartrate (Metoprolol Tartrate 25 Mg Tab) 25 mg PO BID [facility] Last Admin: 07/27/21 07:37 Dose: 25 mg Documented by: Nifedipine (Nifedipine Xl 30 Mg Tab.Er.24) 30 mg PO DAILY [facility] Last Admin: 07/27/21 07:38 Dose: 30 mg Documented by: Non-Formulary Medication (Cranberry Fruit Extract [Cranberry]) 500 mg PO DAILY [facility] Last Admin: 07/27/21 06:58 Dose: Not Given Documented by: Pantoprazole Sodium (Pantoprazole 40 Mg Tablet) 40 mg PO AC-BRKFST [facility] Last Admin: 07/27/21 07:38 Dose: 40 mg Documented by: Past medical history to include: CAD, left-sided weakness from prior stroke, diabetes, blind in the right eye, hypertension, hyperlipidemia, hypothyroid, chronic pain, osteoarthritis, peripheral neuropathy, esophageal stricture, urinary incontinence, uses a walker, PAD Social history: Does not smoke or drink alcohol. . Does use a walker Family history: Cancer. Father of cirrhosis, from alcoholism Physical examination: VITAL SIGNS: 98, 65, 17, 143/81, 96% room air GENERAL: laying in bed awake, comfortable EYES: Blind in the right eyel. HEENT: External appearance of nose and ears normal, oral cavity grossly normal. NECK: JVD not raised; masses not palpable. HEART: First and second heart sounds are normal; no edema. LUNGS: Respiratory rate normal; clear to auscultation. ABDOMEN: Soft, nontender, liver spleen not palpable, no masses palpable. PSYCH: Alert and oriented x3; mood and affect normal. MUSCULOSKELETAL:No Clubbing/cyanosis;muscles-grossly intact. Wound at the base of the left foot third and fourth toe. Left foot second toe dry gangrene. NEUROLOGICAL: Cranial nerves grossly intact; no facial asymmetry, power and sensation grossly intact. Chronic left-sided weakness. Blind in the right eye. INVESTIGATIONS, reviewed in the clinical context July 26: Sodium 136 potassium 3.9 creatinine 0.61. Accu-Chek 229 White count 7.1 hemoglobin 10.1 platelets 313 sodium 138 potassium 4.4 creatinine 0.58 UA positive for leukoesterase, WBC, Coronavirus PCR: Not detected Assessment and plan: -Left foot second toe gangrene. underlying severe iliofemoral disease. Possibly infection. : Slow to respond IV Unasyn. Being followed by vascular and ID -Essential hypertension: Procardia XL 30 mg a day. lisinopril hydrochlorothiazide 20/12.5. Lopressor 25 mg by mouth twice a day -chronic right shoulder dysfunction -Coronary artery disease, prior history of bypass 2007 Lopressor, Zestoretic -Diabetes mellitus type 2 on oral hypoglycemic, uncontrolled with hyperglycemia from infection glyburide ; follow Accu-Cheks. Dietitian. Increase Levemir 16 units daily at bedtime -Blind in the right eye, chronic -Hyperlipidemia Continue Lipitor -Hypothyroidism Continue Synthroid -Primary osteoarthritis Continue pain medications -Diabetic peripheral neuropathy -Chronic urinary incontinence Depend -Chronic gait dysfunction uses a walker IV Unasyn. Santyl topical. Increase Levemir 16 units at night. Keep a close eye on the blood pressure. Discussed with patient.
[2021-07-27] MEDS: LISINOPRIL-HCTZ 20-12.5 MG 1 EACH TAB PO SCH (20:56)
[2021-07-27] MEDS ORDERED: INSULIN DETEMIR (LEVEMIR) 100 UNIT/ML SYR SQ SCH (21:00)
[2021-07-27 21:02] LABS: Glucose,Whole Blood 187 mg/dL (75-99)
[2021-07-28] MEDS: HYDROcodone/APAP 5-325MG 1 EACH TAB PO PRN (02:43)
[2021-07-28] MEDS: LEVOTHYROXINE 50 MCG TAB PO SCH (05:21)
[2021-07-28] MEDS: AMPICILLIN-SULBACTAM 3 GM in SODIUM CHLORIDE 0.9% 100 ML IVPB SCH ×2 (05:21→12:58)
[2021-07-28 06:57] LABS: Basophils % (A) 0 %; Eosinophils # (A) 0.1 k/uL (0-0.7); Eosinophils % (A) 1 %; HGB 10.5 gm/dL (11.4-16.0); Lymphocytes # (A) 1.1 k/uL (1.0-4.8); Lymphocytes % (A) 11 %; MCH 27.6 pg (25.0-35.0); MCHC 31.8 g/dL (31.0-37.0); MCV 86.9 fL (80.0-100.0); Mean Platelet Volume 7.9; Monocytes # (A) 0.4 k/uL (0-1.0); Monocytes % (A) 4 %; Neutrophils # (A) 7.8 k/uL (1.3-7.7); Neutrophils % (A) 82 %; Platelet Count 296 k/uL (150-450); RDW 14.5 % (11.5-15.5); WBC 9.5 k/uL (3.8-10.6)
[2021-07-28 07:07] LABS: Glucose,Whole Blood 148 mg/dL (75-99)
[2021-07-28] MEDS: INSULIN ASPART (NovoLOG) 100 UNIT/ML VIAL SQ SCH ×3 (07:32→17:18)
[2021-07-28] MEDS: ATORVASTATIN 40 MG TAB PO SCH (07:34)
[2021-07-28] MEDS: METOPROLOL TARTRATE 25 MG TAB PO SCH (07:34)
[2021-07-28] MEDS: CHOLECALCIFEROL 25 MCG (1000 IU) TABLET PO SCH (07:34)
[2021-07-28] MEDS: glipiZIDE 10 MG TAB PO SCH (07:35)
[2021-07-28] MEDS: PANTOPRAZOLE 40 MG TABLET PO SCH (07:35)
[2021-07-28] MEDS: LINAGLIPTIN 5 MG TABLET PO SCH (07:35)
[2021-07-28] MEDS: NIFEdipine XL 30 MG TAB.ER.24 PO SCH (07:36)
[2021-07-28] MEDS: NON FORMULARY DRUG (Cranberry Fruit Extract [Cranberry] 500 MG Tablet) PO SCH (07:36)
[2021-07-28] MEDS: CLOTRIMAZOLE 1% CREAM 30 GM TUBE TOPICAL SCH (07:39)
[2021-07-28] MEDS: COLLAGENASE 250 UNIT/GM OINTMENT 30 GM TUBE TOPICAL SCH (07:39)
[2021-07-28 11:36] LABS: Glucose,Whole Blood 221 mg/dL (75-99)
--- NOTE | 2021-07-28 12:14 | P.PN ---
Subjective Progress Note Date: 07/26/21 Principal diagnosis: Left second toe gangrene and Urinary tract infection Patient is 86-year-old female admitted to the hospital with weakness polyuria and this patient noticed to have left second toe gangrene also have a component of urinary tract infection. On today's evaluation that is 07/26/2021 the patient remains to be afebrile, patient is breathing comfortably denies any chest pain shortness of breath no cough no abdominal pain or worsening pain to the left foot/second toe area Objective - Vital Signs Vital signs: Vital Signs Temp 98.5 F 07/26/21 08:00 Pulse 70 07/26/21 08:00 Resp 16 07/26/21 08:10 BP 166/78 07/26/21 08:00 Pulse Ox 95 07/26/21 08:00 Intake & Output 07/25/21 07/26/21 07/26/21 18:59 06:59 18:59 Intake Total 590 Output Total 400 1500 Balance 190 -1500 Intake: Oral 590 Output: Urine 400 1500 Other: Voiding Method Bedpan External Catheter External Catheter - Exam GENERAL DESCRIPTION: Elderly female lying in bed, no distress. No tachypnea or accessory muscle of respiration use. LUNGS: Unlabored breathing. Clear to auscultation anteriorly. No wheeze or crackle. HEART: S1, S2, regular rate and rhythm. No loud murmur ABDOMEN: Soft, no tenderness , guarding or rigidity, no organomegaly EXTREMITIES: Left second toe with necrotic changes wound to the left foot is currently dressed. - Labs CBC & Chem 7: 07/28/21 06:08 07/26/21 08:18 Labs: Abnormal Lab Results - Last 24 Hours (Table) 07/25/21 07/25/21 07/26/21 Range/Units 16:37 21:05 07:31 Sodium (137-145) mmol/L Glucose (74-99) mg/dL POC Glucose (mg/dL) 296 H 277 H 202 H (75-99) mg/dL 07/26/21 07/26/21 Range/Units 08:18 11:49 Sodium 136 L (137-145) mmol/L Glucose 235 H (74-99) mg/dL POC Glucose (mg/dL) 229 H (75-99) mg/dL Microbiology - Last 24 Hours (Table) 07/24/21 22:00 Urine Culture - Preliminary Urine,Voided Gram Neg Bacilli 07/24/21 22:00 Gram Stain - Preliminary Foot - Left Wound Culture - Preliminary Presumptive MRSA 07/24/21 22:40 Blood Culture - Preliminary Blood No Growth after 24 hours Assessment and Plan Assessment: Patient admitted to the hospital with weakness etiology is multifactorial in this patient did have a UTI urine is showing a gram-negative with ID sensitive pending also with a left foot wound and ischemic changes to the left second toe cultures are currently pending continue with Unasyn local wound care per surgery Time with Patient: Less than 30
[2021-07-28] MEDS ORDERED: DOXYCYCLINE 100 MG CAP PO SCH (12:15)
[2021-07-28] MEDS ORDERED: VANCOMYCIN IV PER PHARMACY 1 EACH MISC MISCELLANE PRN (12:18)
[2021-07-28] MEDS ORDERED: VANCOMYCIN 1,250 MG in SODIUM CHLORIDE 0.9% 250 ML IVPB SCH (13:00)
[2021-07-28 16:16] LABS: Glucose,Whole Blood 208 mg/dL (75-99)
[2021-07-28 17:54] VITALS: BP 167/67; PULSE 63; RESP 18; TEMP 97.3
--- NOTE | 2021-07-28 20:34 | P.PN ---
Subjective Progress Note Date: 07/27/21 Principal diagnosis: Left second toe gangrene and Urinary tract infection Patient is 86-year-old female admitted to the hospital with weakness polyuria and this patient noticed to have left second toe gangrene also have a component of urinary tract infection. On today's evaluation that is 07/27/2021 The patient denies having any fever or any chills, the patient is breathing comfortably on room air left lower jaw pain slightly decreased no nausea any nausea no vomiting no abdominal pain and denies any worsening pain to the left foot area Objective - Vital Signs Vital signs: Vital Signs Temp 97.7 F 07/28/21 11:59 Pulse 63 07/28/21 11:59 Resp 17 07/28/21 11:59 BP 171/71 07/28/21 11:59 Pulse Ox 96 07/28/21 11:59 Intake & Output 07/27/21 07/28/21 07/28/21 18:59 06:59 18:59 Intake Total 1280 Output Total 800 850 Balance 480 -850 Intake: Intake, IV Titration 200 Amount Ampicillin-Sulbactam 3 gm 200 In Sodium Chloride 0.9% 100 ml @ 200 mls/hr IVPB Q6HR [facility] Rx#:[id number] Oral 1080 Output: Urine 800 850 Other: Voiding Method External Catheter External Catheter External Catheter - Exam GENERAL DESCRIPTION: Elderly female lying in bed, no distress. No tachypnea or accessory muscle of respiration use. LUNGS: Unlabored breathing. Clear to auscultation anteriorly. No wheeze or crackle. HEART: S1, S2, regular rate and rhythm. No loud murmur ABDOMEN: Soft, no tenderness , guarding or rigidity, no organomegaly EXTREMITIES: Left second toe with necrotic changes wound to the left foot is currently dressed. - Labs CBC & Chem 7: 07/28/21 06:08 07/26/21 08:18 Labs: Abnormal Lab Results - Last 24 Hours (Table) 07/27/21 07/27/21 07/28/21 Range/Units 16:57 20:50 06:08 Hgb 10.5 L (11.4-16.0) gm/dL Hct 33.0 L (34.0-46.0) % Neutrophils # 7.8 H (1.3-7.7) k/uL POC Glucose (mg/dL) 177 H 187 H (75-99) mg/dL 07/28/21 07/28/21 Range/Units 07:05 11:35 Hgb (11.4-16.0) gm/dL Hct (34.0-46.0) % Neutrophils # (1.3-7.7) k/uL POC Glucose (mg/dL) 148 H 221 H (75-99) mg/dL Microbiology - Last 24 Hours (Table) 07/24/21 22:40 Blood Culture - Preliminary Blood No Growth after 72 hours 07/24/21 22:00 Gram Stain - Preliminary Foot - Left Wound Culture - Preliminary Methicillin resist S. aureus Gram Neg Bacilli 07/24/21 22:00 Urine Culture - Final Urine,Voided Klebsiella pneumoniae Assessment and Plan Assessment: Patient admitted to the hospital with weakness etiology is multifactorial in this patient did have a UTI urine is showing Klebsiella sensitive pending , The patientalso with a left foot wound and ischemic changes to the left second toe cultures are currently pending, Patient to continue with Unasyn local wound care per surgery Time with Patient: Less than 30
--- NOTE | 2021-07-28 20:36 | P.PN ---
Subjective Progress Note Date: 07/28/21 Principal diagnosis: Left second toe gangrene and Urinary tract infection Patient is 86-year-old female admitted to the hospital with weakness polyuria and this patient noticed to have left second toe gangrene also have a component of urinary tract infection. On today's evaluation that is 07/28/2021 The patient denies having any fever or any chills, the patient is feeling better she is breathing comfortably no chest pain shortness of breath or cough no nausea no vomiting no abdominal pain no diarrhea urinary symptoms have improved denies pain to the left foot Objective - Vital Signs Vital signs: Vital Signs Temp 97.7 F 07/28/21 11:59 Pulse 63 07/28/21 11:59 Resp 17 07/28/21 11:59 BP 171/71 07/28/21 11:59 Pulse Ox 96 07/28/21 11:59 Intake & Output 07/27/21 07/28/21 07/28/21 18:59 06:59 18:59 Intake Total 1280 Output Total 800 850 Balance 480 -850 Intake: Intake, IV Titration 200 Amount Ampicillin-Sulbactam 3 gm 200 In Sodium Chloride 0.9% 100 ml @ 200 mls/hr IVPB Q6HR [facility] Rx#:[id number] Oral 1080 Output: Urine 800 850 Other: Voiding Method External Catheter External Catheter External Catheter - Exam GENERAL DESCRIPTION: Elderly female lying in bed, no distress. No tachypnea or accessory muscle of respiration use. LUNGS: Unlabored breathing. Clear to auscultation anteriorly. No wheeze or crackle. HEART: S1, S2, regular rate and rhythm. No loud murmur ABDOMEN: Soft, no tenderness , guarding or rigidity, no organomegaly EXTREMITIES: Left foot is currently dressed, No drainage on the dressing - Labs CBC & Chem 7: 07/28/21 06:08 07/26/21 08:18 Labs: Abnormal Lab Results - Last 24 Hours (Table) 07/27/21 07/27/21 07/28/21 Range/Units 16:57 20:50 06:08 Hgb 10.5 L (11.4-16.0) gm/dL Hct 33.0 L (34.0-46.0) % Neutrophils # 7.8 H (1.3-7.7) k/uL POC Glucose (mg/dL) 177 H 187 H (75-99) mg/dL 07/28/21 07/28/21 Range/Units 07:05 11:35 Hgb (11.4-16.0) gm/dL Hct (34.0-46.0) % Neutrophils # (1.3-7.7) k/uL POC Glucose (mg/dL) 148 H 221 H (75-99) mg/dL Microbiology - Last 24 Hours (Table) 07/24/21 22:40 Blood Culture - Preliminary Blood No Growth after 72 hours 07/24/21 22:00 Gram Stain - Preliminary Foot - Left Wound Culture - Preliminary Methicillin resist S. aureus Gram Neg Bacilli 07/24/21 22:00 Urine Culture - Final Urine,Voided Klebsiella pneumoniae Assessment and Plan Assessment: Patient admitted to the hospital with weakness etiology is multifactorial in this patient did have a UTI urine Culture has been finalized with Klebsiella covered with the Unasyn, the left foot wound cultures are showing MRSA and a gram-negative sensitivities pending discussed with the admitting physician emily osman for possible discharge and follow-up with the vascular surgeon on Monday at the patient will likely need amputation she was given a dose of vancomycin discharge antibiotics form of Ceftin and doxycycline and close outpatient follow-up Time with Patient: Less than 30
--- NOTE | 2021-07-28 21:44 | P.DS ---
Providers Date of admission: 07/24/21 22:27 Expected date of discharge: 07/28/21 Attending physician: Elan Nagel Consults: 07/24/21 22:28 Consult Physician Urgent Consulting Provider: Heraclio Velez Consult Reason/Comments: Left foot cellulitis and osteomyelitis Do you want consulting provider notified?: Already Contacted 07/24/21 22:29 Consult Physician Urgent Consulting Provider: Maicol Rivero Consult Reason/Comments: Left foot cellulitis and osteomyelitis Do you want consulting provider notified?: Yes Primary care physician: [facility] Course: Chief Complaint: Gangrene toe History of presenting complaint: This is a pleasant 86-year-old patient who follows with Dr. Ramirez. 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 baseline uses a walker. Lives with her . 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 Prior angiogram showed severe infrapopliteal occlusive disease. Patient has not been keen for any amputation and has therefore just been having wound care and follows at the wound care center. Patient was also another granddaughter because left foot second toe is totally gangrenous. Some pain is present. No drainage. No fever no chills. Appetite is fair. Dr. Langley and earlier spoke with the patient and patient is hesitant to amputation. July 26: Pain control. Eating fair. On IV Unasyn. July 27: Oral intake fair. Pain controlled. On IV Unasyn. July 28: Discussed with Dr. Langley over the phone. Okay to discharge the patient. Follow-up in outpatient. Patient had no fever no white count. Infection element is less. Urine has grown klebsiella pneumoniae and the wound cultures growing MRSA. Discussed with Dr. Moore from ID. Patient should be stable to be discharged oral antibiotics. Santyl ointment to continue. Follow- up with Dr. Langley and Dr. Siddiqi outpatient. 1 dose of IV vancomycin be given today. Ceftin and doxycycline for outpatient. Discussion and discharge planning more than 35 minutes Consultation: Dr. Rivero from ID Dr. Langley from vascular Past medical history to include: CAD, left-sided weakness from prior stroke, diabetes, blind in the right eye, hypertension, hyperlipidemia, hypothyroid, chronic pain, osteoarthritis, peripheral neuropathy, esophageal stricture, urinary incontinence, uses a walker, PAD Social history: Does not smoke or drink alcohol. . Does use a walker Family history: Cancer. Father of cirrhosis, from alcoholism Physical examination: VITAL SIGNS: 98.2, 81, 16, 167 with 67, 99% room air GENERAL: laying in bed awake, comfortable EYES: Blind in the right eyel. HEENT: External appearance of nose and ears normal, oral cavity grossly normal. NECK: JVD not raised; masses not palpable. HEART: First and second heart sounds are normal; no edema. LUNGS: Respiratory rate normal; clear to auscultation. ABDOMEN: Soft, nontender, liver spleen not palpable, no masses palpable. PSYCH: Alert and oriented x3; mood and affect normal. MUSCULOSKELETAL:No Clubbing/cyanosis;muscles-grossly intact. Wound at the base of the left foot third and fourth toe. Left foot second toe dry gangrene. NEUROLOGICAL: Cranial nerves grossly intact; no facial asymmetry, power and sensation grossly intact. Chronic left-sided weakness. Blind in the right eye. INVESTIGATIONS, reviewed in the clinical context July 28: White count 9.5 Humulin 10.5 platelets 296 July 26: Sodium 136 potassium 3.9 creatinine 0.61. Accu-Chek 229 White count 7.1 hemoglobin 10.1 platelets 313 sodium 138 potassium 4.4 creatinine 0.58 UA positive for leukoesterase, WBC, Coronavirus PCR: Not detected Assessment and plan: -Left foot second toe gangrene. underlying severe iliofemoral disease. Possibly infection. : Slow to respond IV Unasyn. Patient to be discharged on Ceftin 5 mg twice a day for 10 days and doxycycline 100 mg twice a day for 10 days. -Essential hypertension: Procardia XL 30 mg a day. lisinopril hydrochlorothiazide 20/12.5. Lopressor 25 mg by mouth twice a day -chronic right shoulder dysfunction -Coronary artery disease, prior history of bypass 2008 Lopressor, Zestoretic -Diabetes mellitus type 2 on oral hypoglycemic, uncontrolled with hyperglycemia from infection Increase glyburide 10 mg twice a day ; follow Accu-Cheks. Dietitian. -Blind in the right eye, chronic -Hyperlipidemia Continue Lipitor -Hypothyroidism Continue Synthroid -Primary osteoarthritis Continue pain medications -Diabetic peripheral neuropathy -Chronic urinary incontinence Depend -Chronic gait dysfunction uses a walker Disposition: Home Plan - Discharge Summary Discharge Rx Participant: Yes New Discharge Prescriptions: New glipiZIDE [Glucotrol] 10 mg PO BID #60 tab Metoprolol Tartrate [Lopressor] 25 mg PO BID #60 tab Clotrimazole Cream [Lotrimin Cream] 1 applic TOPICAL BID cream Lisinopril-Hctz 20-12.5 mg [Zestoretic 20-12.5] 1 tab PO BID #60 tab Cefuroxime Axetil [Ceftin] 500 mg PO BID 10 Days #20 tab Doxycycline [Vibramycin] 100 mg PO BID 10 Days #20 capsule Continue Omeprazole [PriLOSEC] 20 mg PO DAILY Atorvastatin [Lipitor] 40 mg PO DAILY Cranberry Fruit Extract [Cranberry] 500 mg PO DAILY Collagenase [Santyl Ointment] 1 applic TOPICAL DAILY Cholecalciferol [Vitamin D3 (25 Mcg = 1000 Iu)] 50 mcg PO DAILY Levothyroxine Sodium [Synthroid] 50 mcg PO DAILY Acetaminophen Tab [Tylenol] 500 mg PO Q6H PRN PRN Reason: Pain NIFEdipine [NIFEdipine ER] 30 mg PO DAILY sitaGLIPtin [Januvia] 100 mg PO DAILY Discontinued glyBURIDE [Diabeta] 5 mg PO BID Discharge Medication List Omeprazole [PriLOSEC] 20 mg PO DAILY 01/06/20 [History] Atorvastatin [Lipitor] 40 mg PO DAILY 12/02/20 [History] Acetaminophen Tab [Tylenol] 500 mg PO Q6H PRN 07/24/21 [History] Cholecalciferol [Vitamin D3 (25 Mcg = 1000 Iu)] 50 mcg PO DAILY 07/24/21 [History] Collagenase [Santyl Ointment] 1 applic TOPICAL DAILY 07/24/21 [History] Cranberry Fruit Extract [Cranberry] 500 mg PO DAILY 07/24/21 [History] Levothyroxine Sodium [Synthroid] 50 mcg PO DAILY 07/24/21 [History] NIFEdipine [NIFEdipine ER] 30 mg PO DAILY 07/24/21 [History] sitaGLIPtin [Januvia] 100 mg PO DAILY 07/24/21 [History] Cefuroxime Axetil [Ceftin] 500 mg PO BID 10 Days #20 tab 07/28/21 [Rx] Clotrimazole Cream [Lotrimin Cream] 1 applic TOPICAL BID cream 07/28/21 [Rx] Doxycycline [Vibramycin] 100 mg PO BID 10 Days #20 capsule 07/28/21 [Rx] Lisinopril-Hctz 20-12.5 mg [Zestoretic 20-12.5] 1 tab PO BID #60 tab 07/28/21 [ Rx] Metoprolol Tartrate [Lopressor] 25 mg PO BID #60 tab 07/28/21 [Rx] glipiZIDE [Glucotrol] 10 mg PO BID #60 tab 07/28/21 [Rx] Follow up Appointment(s)/Referral(s): Esvin Ramirez DO [Primary Care Provider] - 08/12/21 9:00 am [facility] [NON-STAFF] - 08/02/21 3:15 pm Maicol Rivero MD [STAFF PHYSICIAN] - 08/03/21 1:30 pm Activity/Diet/Wound Care/Special Instructions: [facility]: [phone] Daily wound care with santyl antibiotics per Dr. Rivero Discharge Disposition: HOME WITH HOME HEALTH SERVICES
== END 2021-07-28 18:15 | disposition home health service (06) | DRG 300 ==
LOC: EC 18:38 → 4SSUR 22:27
PROVIDERS: ADMIT Hospitalist; ATTEND Hospitalist
DX: E11.52 Type 2 diabetes mellitus with diabetic peripheral angiopathy with gangrene (principal); L03.116 Cellulitis of left lower limb; I69.354 Hemiplegia and hemiparesis following cerebral infarction affecting left non-dominant side; N39.0 Urinary tract infection, site not specified; E11.628 Type 2 diabetes mellitus with other skin complications; Z20.822 Contact with and (suspected) exposure to COVID-19; E03.9 Hypothyroidism, unspecified; E11.65 Type 2 diabetes mellitus with hyperglycemia; E78.5 Hyperlipidemia, unspecified; H54.61 Unqualified visual loss, right eye, normal vision left eye; I10 Essential (primary) hypertension; I25.10 Atherosclerotic heart disease of native coronary artery without angina pectoris; M19.91 Primary osteoarthritis, unspecified site; R32 Unspecified urinary incontinence; R26.9 Unspecified abnormalities of gait and mobility; B96.1 Klebsiella pneumoniae [K. pneumoniae] as the cause of diseases classified elsewhere; K44.9 Diaphragmatic hernia without obstruction or gangrene; B95.62 Methicillin resistant Staphylococcus aureus infection as the cause of diseases classified elsewhere; E11.42 Type 2 diabetes mellitus with diabetic polyneuropathy; E11.319 Type 2 diabetes mellitus with unspecified diabetic retinopathy without macular edema; H91.90 Unspecified hearing loss, unspecified ear; Z79.4 Long term (current) use of insulin; Z79.890 Hormone replacement therapy; Z79.899 Other long term (current) drug therapy; Z89.422 Acquired absence of other left toe(s); Z90.710 Acquired absence of both cervix and uterus; Z95.1 Presence of aortocoronary bypass graft
CPT/HCPCS: 36415; 80048; 80053; 81001; 82009; 82803; 83735; 84145; 85025; 87040; 87070; 87077; 87086; 87186; 87205; 87635; 99285

== ENCOUNTER 2021-08-03 15:19 | Inpatient (IN) | payer MEDICARE, OTHER ==
[2021-08-03 16:09] LABS: Glucose,Whole Blood 226 mg/dL (75-99)
[2021-08-03] MEDS ORDERED: MORPHINE SULFATE 2 MG/ML SYRINGE IVP STA (16:33)
[2021-08-03] MEDS ORDERED: ONDANSETRON 4 MG/2 ML VIAL IVP STA (16:33)
[2021-08-03 17:03] LABS: Basophils % (A) 0 %; Eosinophils # (A) 0.1 k/uL (0-0.7); Eosinophils % (A) 1 %; HCT 33.5 % (34.0-46.0); HGB 10.5 gm/dL (11.4-16.0); Hypochromasia Slight; Lymphocytes # (A) 1.3 k/uL (1.0-4.8); Lymphocytes % (A) 15 %; MCH 27.6 pg (25.0-35.0); MCHC 31.5 g/dL (31.0-37.0); MCV 87.6 fL (80.0-100.0); Mean Platelet Volume 7.8; Monocytes # (A) 0.4 k/uL (0-1.0); Monocytes % (A) 4 %; Neutrophils # (A) 6.6 k/uL (1.3-7.7); Neutrophils % (A) 77 %; Platelet Count 309 k/uL (150-450); RBC 3.83 m/uL (3.80-5.40); WBC 8.6 k/uL (3.8-10.6)
[2021-08-03 17:14] LABS: INR 1.1 (<1.2); Partial Thromboplastin Time 25.1 sec (22.0-30.0); Prothrombin Time 11.3 sec (9.0-12.0)
[2021-08-03 17:15] LABS: Albumin 3.7 g/dL (3.5-5.0); Calcium 8.9 mg/dL (8.4-10.2); Potassium 4.2 mmol/L (3.5-5.1); Total Bilirubin 0.4 mg/dL (0.2-1.3); Total Protein 7.6 g/dL (6.3-8.2)
--- NOTE | 2021-08-03 17:43 | XR ---
EXAMINATION TYPE: XR chest 1V DATE OF EXAM: 08/03/2021 5:18 PM COMPARISON: 01/21/2021 TECHNIQUE: Frontal view of the chest. CLINICAL INDICATION:Female, 86 years old with history of Pre-surgical clearance; FINDINGS: Lungs/Pleura: There is no evidence of pleural effusion, focal consolidation, or pneumothorax. Pulmonary vascularity: Unremarkable. Heart/mediastinum: Cardiomediastinal silhouette is prominent in size. Musculoskeletal:No acute osseous pathology. Midline sternotomy wires are noted and stable. IMPRESSION: No acute cardiopulmonary disease/process.
--- NOTE | 2021-08-03 18:14 | ED ---
Skin/Abscess/FB HPI - General Chief complaint: Skin/Abscess/Foreign Body Stated complaint: L leg sore-sent by Dr. Ramirez Time Seen by Provider: 08/03/21 16:03 Source: patient Mode of arrival: ambulatory Limitations: no limitations - History of Present Illness Initial comments: 86 year-old female patient presents at the request of her physician. She has an ongoing infection and wound to the left foot and toes. Wound has been worsening over the last couple of weeks since being discharged from the hospital. She saw her physician today and they instructed her home care nurse to bring her in for admission for possible amputation of the left leg. Plan is to have the left leg amputated. Patient has been seeing Dr. Velez. Patient denies any recent r dorinda, fever, chills, cough, shortness of breath, chest pain, abdominal pain, nausea, vomiting, diarrhea, constipation, back pain, numbness, tingling, dizziness, weakness, hematuria, dysuria, urinary urgency, urinary frequency, headache, visual changes, or any other complaints.s - Related Data Home Medications Medication Instructions Recorded Confirmed Omeprazole [PriLOSEC] 20 mg PO DAILY 01/06/20 08/03/21 Atorvastatin [Lipitor] 40 mg PO DAILY 12/02/20 08/03/21 Acetaminophen Tab [Tylenol] 500 mg PO Q6H PRN 07/24/21 08/03/21 Cholecalciferol [Vitamin D3 (25 50 mcg PO DAILY 07/24/21 08/03/21 Mcg = 1000 Iu)] Collagenase [Santyl Ointment] 1 applic TOPICAL DAILY 07/24/21 08/03/21 Cranberry Fruit Extract [Cranberry] 500 mg PO DAILY 07/24/21 08/03/21 Levothyroxine Sodium [Synthroid] 50 mcg PO DAILY 07/24/21 08/03/21 NIFEdipine [NIFEdipine ER] 30 mg PO DAILY 07/24/21 08/03/21 sitaGLIPtin [Januvia] 100 mg PO DAILY 07/24/21 08/03/21 Metoprolol Tartrate [Lopressor] 50 mg PO BID 08/03/21 08/03/21 glyBURIDE [Diabeta] 5 mg PO AC-BID 08/03/21 08/03/21 Previous Rx's Medication Instructions Recorded Cefuroxime Axetil [Ceftin] 500 mg PO BID 10 Days #20 tab 07/28/21 Clotrimazole Cream [Lotrimin Cream] 1 applic TOPICAL BID cream 07/28/21 Doxycycline [Vibramycin] 100 mg PO BID 10 Days #20 capsule 07/28/21 Allergies Allergy/AdvReac Type Severity Reaction Status Date / Time aspirin Allergy Rash/Hives Verified 08/03/21 17:23 fish derived Allergy Rash/Hives Verified 08/03/21 17:23 Iodinated Contrast Media Allergy Rash/Hives Verified 08/03/21 17:23 [Iodinated Contrast Media - IV Dye] Iodine and Iodide Containing Allergy Rash/Hives Verified 08/03/21 17:23 Produc shellfish derived [Shellfish] Allergy Rash/Hives Verified 08/03/21 17:23 sulfamethoxazole Allergy Itching Verified 08/03/21 17:23 [From Bactrim] trimethoprim [From Bactrim] Allergy Itching Verified 08/03/21 17:23 Review of Systems ROS Statement: Those systems with pertinent positive or pertinent negative responses have been documented in the HPI. ROS Other: All systems not noted in ROS Statement are negative. Past Medical History Past Medical History: Coronary Artery Disease (CAD), Chest Pain / Angina, CVA/TIA, Diabetes Mellitus, Eye Disorder, GERD/Reflux, Hyperlipidemia, Hypertension, Osteoarthritis (OA), Syncope, Thyroid Disorder Additional Past Medical History / Comment(s): NIDDM type II, neuropathy bilateral hands, 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, dysphagia,esophageal strictures with dilation, hiatal hernia, L eye diabetic retinopathy/R eye blindness, bilateral [place], UTIS/urinary leakage, past bilateral feet sores/osteomylitis, generalized pain, bilateral carpal tunnel syndrome, vertigo, hypothyroid, anemia History of Any Multi-Drug Resistant Organisms: MRSA Date of last positivie culture/infection: 07/24/21 MDRO Source:: MRSA FOOT Past Surgical History: Bladder Surgery, Cholecystectomy, Coronary Bypass/CABG, Heart Catheterization, Hysterectomy Additional Past Surgical History / Comment(s): 2007 CABG 4 vessel, EGDs with dilations, colonoscopies, cataract removal, D&C, bladder suspension, PICC, loop recorder, toe amputation may 2021 Past Anesthesia/Blood Transfusion Reactions: Motion Sickness, Postoperative Nausea & Vomiting (PONV) Past Psychological History: No Psychological Hx Reported Smoking Status: Never smoker Past Alcohol Use History: None Reported Past Drug Use History: None Reported - Past Family History Father Family Medical History: Liver Disease Additional Family Medical History / Comment(s): Father of cirrhosis. He was a drinker. Mother History Unknown: Yes Family Medical History: Unable to Obtain Additional Family Medical History / Comment(s): Pt states she does not know her mother's medical history, but knows she at the age of 62 yrs.. Son(s) Family Medical History: Unable to Obtain, Renal Disease Daughter(s) Family Medical History: Cancer General Exam Limitations: no limitations General appearance: alert, in no apparent distress, other (This is a well- developed, well-nourished adult female no acute distress.) ENT exam: Present: normal exam, mucous membranes moist Neck exam: Present: normal inspection. Absent: tenderness, meningismus, lymphadenopathy Respiratory exam: Present: normal lung sounds bilaterally. Absent: respiratory distress, wheezes, rales, rhonchi, stridor Cardiovascular Exam: Present: regular rate, normal rhythm, normal heart sounds. Absent: systolic murmur, diastolic murmur, rubs, gallop, clicks GI/Abdominal exam: Present: soft, normal bowel sounds. Absent: distended, tenderness, guarding, rebound, rigid Neurological exam: Present: alert, oriented X3, CN II-XII intact Psychiatric exam: Present: normal affect, normal mood Skin exam: Present: warm, dry, intact, normal color. Absent: rash Course Vital Signs 08/03/21 08/03/21 15:27 18:30 Temperature 98.1 F 97.5 F L Pulse Rate 72 66 Respiratory 18 16 Rate Blood Pressure 154/67 160/69 O2 Sat by Pulse 100 99 Oximetry Medical Decision Making - Medical Decision Making 86-year-old female patient presents for admission for possible left leg amputation due to chronic left foot wound and infection. Dr. Velez was down to see the patient, agreed to admission. Pre-op labs and chest xray performed and were unremarkable. EKG showed normal sinus rhythm. Patient is agreeable to admission. Dr. Nagel is accepting. My attending is Dr. Seymour. - Lab Data Result diagrams: 08/03/21 16:54 08/03/21 16:54 Lab Results 08/03/21 08/03/21 08/03/21 Range/Units 16:08 16:54 16:54 WBC 8.6 (3.8-10.6) k/uL RBC 3.83 (3.80-5.40) m/uL Hgb 10.5 L (11.4-16.0) gm/dL Hct 33.5 L (34.0-46.0) % MCV 87.6 (80.0-100.0) fL MCH 27.6 (25.0-35.0) pg MCHC 31.5 (31.0-37.0) g/dL RDW 15.0 (11.5-15.5) % Plt Count 309 (150-450) k/uL MPV 7.8 Neutrophils % 77 % Lymphocytes % 15 % Monocytes % 4 % Eosinophils % 1 % Basophils % 0 % Neutrophils # 6.6 (1.3-7.7) k/uL Lymphocytes # 1.3 (1.0-4.8) k/uL Monocytes # 0.4 (0-1.0) k/uL Eosinophils # 0.1 (0-0.7) k/uL Basophils # 0.0 (0-0.2) k/uL Hypochromasia Slight PT 11.3 (9.0-12.0) sec INR 1.1 (<1.2) APTT 25.1 (22.0-30.0) sec Sodium (137-145) mmol/L Potassium (3.5-5.1) mmol/L Chloride (98-107) mmol/L Carbon Dioxide (22-30) mmol/L Anion Gap mmol/L BUN (7-17) mg/dL Creatinine (0.52-1.04) mg/dL Est GFR (CKD-EPI)AfAm (>60 ml/min/1.73 sqM) Est GFR (CKD-EPI)NonAf (>60 ml/min/1.73 sqM) Glucose (74-99) mg/dL POC Glucose (mg/dL) 226 H (75-99) mg/dL POC Glu Digester Cook ID Kiko Tucker Calcium (8.4-10.2) mg/dL Total Bilirubin (0.2-1.3) mg/dL AST (14-36) U/L ALT (4-34) U/L Alkaline Phosphatase (38-126) U/L Total Protein (6.3-8.2) g/dL Albumin (3.5-5.0) g/dL Coronavirus (PCR) (Not Detectd) 08/03/21 08/03/21 Range/Units 16:54 17:40 WBC (3.8-10.6) k/uL RBC (3.80-5.40) m/uL Hgb (11.4-16.0) gm/dL Hct (34.0-46.0) % MCV (80.0-100.0) fL MCH (25.0-35.0) pg MCHC (31.0-37.0) g/dL RDW (11.5-15.5) % Plt Count (150-450) k/uL MPV Neutrophils % % Lymphocytes % % Monocytes % % Eosinophils % % Basophils % % Neutrophils # (1.3-7.7) k/uL Lymphocytes # (1.0-4.8) k/uL Monocytes # (0-1.0) k/uL Eosinophils # (0-0.7) k/uL Basophils # (0-0.2) k/uL Hypochromasia PT (9.0-12.0) sec INR (<1.2) APTT (22.0-30.0) sec Sodium 139 (137-145) mmol/L Potassium 4.2 (3.5-5.1) mmol/L Chloride 106 (98-107) mmol/L Carbon Dioxide 23 (22-30) mmol/L Anion Gap 10 mmol/L BUN 23 H (7-17) mg/dL Creatinine 0.77 (0.52-1.04) mg/dL Est GFR (CKD-EPI)AfAm 81 (>60 ml/min/1.73 sqM) Est GFR (CKD-EPI)NonAf 71 (>60 ml/min/1.73 sqM) Glucose 219 H (74-99) mg/dL POC Glucose (mg/dL) (75-99) mg/dL POC Glu Digester Cook ID Calcium 8.9 (8.4-10.2) mg/dL Total Bilirubin 0.4 (0.2-1.3) mg/dL AST 25 (14-36) U/L ALT 28 (4-34) U/L Alkaline Phosphatase 141 H (38-126) U/L Total Protein 7.6 (6.3-8.2) g/dL Albumin 3.7 (3.5-5.0) g/dL Coronavirus (PCR) Not Detected (Not Detectd) - EKG Data -: EKG Interpreted by Me EKG Comments: EKG obtained at 1726 shows normal sinus rhythm with a sinus arrhythmia. Ventricular rate is 70, OR interval 166, QRS duration 106, QTc 412, QTC 444. No evidence of ST elevation or depression. - Radiology Data Radiology results: report reviewed, image reviewed One view x-ray of the chest is obtained. Report was reviewed in its entirety. Impression by Dr. Jones shows no acute cardiopulmonary disease/process. Disposition Clinical Impression: Wound of left foot, Vascular insufficiency of extremity Disposition: ADMITTED IP TO THIS [facility] Condition: Serious Referrals: Esvin Ramirez DO [Primary Care Provider] - 1-2 days Decision to Admit Reason: Admit from EC Decision Date: 08/03/21 Decision Time: 19:30
[2021-08-03] MEDS ORDERED: NALOXONE 0.4 MG/ML 1 ML VIAL IV PRN (18:33)
[2021-08-03] MEDS ORDERED: ONDANSETRON 4 MG/2 ML VIAL IVP PRN (18:36)
[2021-08-03] MEDS: MORPHINE SULFATE 2 MG/ML SYRINGE IVP PRN (19:59)
[2021-08-04] MEDS: MORPHINE SULFATE 2 MG/ML SYRINGE IVP PRN ×2 (03:36→21:54)
[2021-08-04 07:17] LABS: Glucose,Whole Blood 235 mg/dL (75-99)
[2021-08-04] MEDS: INSULIN ASPART (NovoLOG) 100 UNIT/ML VIAL SQ SCH ×4 (07:29→21:43)
--- NOTE | 2021-08-04 09:24 | P.GSCN ---
History of Present Illness History of present illness: 66-year-old female patient is well known to me from the wound clinic. Patient had a left foot toe Danielle done in the past for gangrene changes we did the angiogram and found to have a severe infrapopliteal occlusive disease. We discussed with the patient and the family in the past for amputation patient was refusing. Now she has developed a gangrene changes extremity to the other toes with the rest pain and tissue loss. Patient history history of 4 coronary artery disease diabetes hypertension severe peripheral vascular disease Neck examination neck is supple no bruit appreciated Chest chest is clear first and second sound present few crackles the lung bases Abdomen is soft nontender Vascular patient femorals are 1+ PTDP not palpable left foot has a gangrene changes involving the toes and chronic wound patient had angiogram done at [facility] patient has severe infrapopliteal occlusive disease anterior tibial posterior tibial is occluded patient will be scheduled for major amputation now this time patient is agreeable discussed with the granddaughter we will arrange after medical clearance follow with you Past Medical History Past Medical History: Coronary Artery Disease (CAD), Chest Pain / Angina, CVA/TIA, Diabetes Mellitus, Eye Disorder, GERD/Reflux, Hyperlipidemia, Hypertension, Osteoarthritis (OA), Syncope, Thyroid Disorder Additional Past Medical History / Comment(s): NIDDM type II, neuropathy bilateral hands, 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, dysphagia,esophageal stri ctures with dilation, hiatal hernia, L eye diabetic retinopathy/R eye blindness, bilateral [place], UTIS/urinary leakage, past bilateral feet sores/osteomylitis, generalized pain, bilateral carpal tunnel syndrome, vertigo, hypothyroid, anemia History of Any Multi-Drug Resistant Organisms: MRSA Year Discovered:: 07/24/21 MDRO Source:: MRSA FOOT Past Surgical History: Bladder Surgery, Cholecystectomy, Coronary Bypass/CABG, Heart Catheterization, Hysterectomy Additional Past Surgical History / Comment(s): 2007 CABG 4 vessel, EGDs with dilations, colonoscopies, cataract removal, D&C, bladder suspension, PICC, loop recorder, toe amputation may 2021 Past Anesthesia/Blood Transfusion Reactions: Motion Sickness, Postoperative Nausea & Vomiting (PONV) Past Psychological History: No Psychological Hx Reported Additional Psychological History / Comment(s): Pt resides alone, in May 2021. Just recently set up 24/7 care at home. Pt uses a walker to ambulate. She has a glucometer, b/p cuff and shower chair. dinners. Smoking Status: Never smoker Past Alcohol Use History: None Reported Past Drug Use History: None Reported - Past Family History Father Family Medical History: Liver Disease Additional Family Medical History / Comment(s): Father of cirrhosis. He was a drinker. Mother History Unknown: Yes Family Medical History: Unable to Obtain Additional Family Medical History / Comment(s): Pt states she does not know her mother's medical history, but knows she at the age of 62 yrs.. Son(s) Family Medical History: Unable to Obtain, Renal Disease Daughter(s) Family Medical History: Cancer Medications and Allergies Home Medications Medication Instructions Recorded Confirmed Type Omeprazole [PriLOSEC] 20 mg PO DAILY 01/06/20 08/03/21 History Atorvastatin [Lipitor] 40 mg PO DAILY 12/02/20 08/03/21 History Acetaminophen Tab [Tylenol] 500 mg PO Q6H PRN 07/24/21 08/03/21 History Cholecalciferol [Vitamin D3 (25 50 mcg PO DAILY 07/24/21 08/03/21 History Mcg = 1000 Iu)] Collagenase [Santyl Ointment] 1 applic TOPICAL DAILY 07/24/21 08/03/21 History Cranberry Fruit Extract [Cranberry] 500 mg PO DAILY 07/24/21 08/03/21 History Levothyroxine Sodium [Synthroid] 50 mcg PO DAILY 07/24/21 08/03/21 History NIFEdipine [NIFEdipine ER] 30 mg PO DAILY 07/24/21 08/03/21 History sitaGLIPtin [Januvia] 100 mg PO DAILY 07/24/21 08/03/21 History Cefuroxime Axetil [Ceftin] 500 mg PO BID 10 Days #20 tab 07/28/21 08/03/21 Rx Clotrimazole Cream [Lotrimin Cream] 1 applic TOPICAL BID cream 07/28/21 08/03/21 Rx Doxycycline [Vibramycin] 100 mg PO BID 10 Days #20 capsule 07/28/21 08/03/21 Rx Metoprolol Tartrate [Lopressor] 50 mg PO BID 08/03/21 08/03/21 History glyBURIDE [Diabeta] 5 mg PO AC-BID 08/03/21 08/03/21 History Allergies Allergy/AdvReac Type Severity Reaction Status Date / Time aspirin Allergy Rash/Hives Verified 08/03/21 17:23 fish derived Allergy Rash/Hives Verified 08/03/21 17:23 Iodinated Contrast Media Allergy Rash/Hives Verified 08/03/21 17:23 [Iodinated Contrast Media - IV Dye] Iodine and Iodide Containing Allergy Rash/Hives Verified 08/03/21 17:23 Produc shellfish derived [Shellfish] Allergy Rash/Hives Verified 08/03/21 17:23 sulfamethoxazole Allergy Itching Verified 08/03/21 17:23 [From Bactrim] trimethoprim [From Bactrim] Allergy Itching Verified 08/03/21 17:23 Surgical - Exam Vital Signs Temp Pulse Resp BP Pulse Ox 98.1 F 72 18 154/67 100 08/03/21 15:27 08/03/21 15:27 08/03/21 15:27 08/03/21 15:27 08/03/21 15:27 Results - Labs 08/03/21 16:54 08/03/21 16:54 Abnormal Lab Results - Last 24 Hours (Table) 08/03/21 08/03/21 08/03/21 Range/Units 16:08 16:54 16:54 Hgb 10.5 L (11.4-16.0) gm/dL Hct 33.5 L (34.0-46.0) % BUN 23 H (7-17) mg/dL Glucose 219 H (74-99) mg/dL POC Glucose (mg/dL) 226 H (75-99) mg/dL Hemoglobin A1c (0.0-6.0) % Alkaline Phosphatase 141 H (38-126) U/L 08/03/21 08/04/21 Range/Units 16:54 07:15 Hgb (11.4-16.0) gm/dL Hct (34.0-46.0) % BUN (7-17) mg/dL Glucose (74-99) mg/dL POC Glucose (mg/dL) 235 H (75-99) mg/dL Hemoglobin A1c 10.4 H (0.0-6.0) % Alkaline Phosphatase (38-126) U/L Diabetes panel 08/03/21 08/03/21 Range/Units 16:54 16:54 Sodium 139 (137-145) mmol/L Potassium 4.2 (3.5-5.1) mmol/L Chloride 106 (98-107) mmol/L Carbon Dioxide 23 (22-30) mmol/L BUN 23 H (7-17) mg/dL Creatinine 0.77 (0.52-1.04) mg/dL Glucose 219 H (74-99) mg/dL Hemoglobin A1c 10.4 H (0.0-6.0) % Calcium 8.9 (8.4-10.2) mg/dL AST 25 (14-36) U/L ALT 28 (4-34) U/L Alkaline Phosphatase 141 H (38-126) U/L Total Protein 7.6 (6.3-8.2) g/dL Albumin 3.7 (3.5-5.0) g/dL Calcium panel 08/03/21 Range/Units 16:54 Calcium 8.9 (8.4-10.2) mg/dL Albumin 3.7 (3.5-5.0) g/dL Pituitary panel 08/03/21 Range/Units 16:54 Sodium 139 (137-145) mmol/L Potassium 4.2 (3.5-5.1) mmol/L Chloride 106 (98-107) mmol/L Carbon Dioxide 23 (22-30) mmol/L BUN 23 H (7-17) mg/dL Creatinine 0.77 (0.52-1.04) mg/dL Glucose 219 H (74-99) mg/dL Calcium 8.9 (8.4-10.2) mg/dL Adrenal panel 08/03/21 Range/Units 16:54 Sodium 139 (137-145) mmol/L Potassium 4.2 (3.5-5.1) mmol/L Chloride 106 (98-107) mmol/L Carbon Dioxide 23 (22-30) mmol/L BUN 23 H (7-17) mg/dL Creatinine 0.77 (0.52-1.04) mg/dL Glucose 219 H (74-99) mg/dL Calcium 8.9 (8.4-10.2) mg/dL Total Bilirubin 0.4 (0.2-1.3) mg/dL AST 25 (14-36) U/L ALT 28 (4-34) U/L Alkaline Phosphatase 141 H (38-126) U/L Total Protein 7.6 (6.3-8.2) g/dL Albumin 3.7 (3.5-5.0) g/dL
[2021-08-04] MEDS ORDERED: NON FORMULARY DRUG (Cranberry Fruit Extract [Cranberry] 500 MG Tablet) PO SCH (10:30)
[2021-08-04] MEDS ORDERED: glipiZIDE 10 MG TAB PO SCH (10:30)
[2021-08-04] MEDS: ATORVASTATIN 40 MG TAB PO SCH (11:13)
[2021-08-04] MEDS: PANTOPRAZOLE 40 MG TABLET PO SCH (11:13)
[2021-08-04] MEDS: LINAGLIPTIN 5 MG TABLET PO SCH (11:13)
[2021-08-04] MEDS: CHOLECALCIFEROL 25 MCG (1000 IU) TABLET PO SCH (11:13)
[2021-08-04] MEDS: LEVOTHYROXINE 50 MCG TAB PO SCH (11:13)
[2021-08-04] MEDS: METOPROLOL TARTRATE 50 MG TAB PO SCH ×2 (11:13→21:44)
[2021-08-04 11:25] LABS: Glucose,Whole Blood 258 mg/dL (75-99)
[2021-08-04] MEDS: CLOTRIMAZOLE 1% CREAM 30 GM TUBE TOPICAL SCH ×2 (11:59→21:45)
[2021-08-04] MEDS: DOXYCYCLINE 100 MG CAP PO SCH ×2 (12:01→21:44)
[2021-08-04] MEDS: CEFDINIR 300 MG CAP PO SCH ×2 (12:01→21:44)
[2021-08-04] MEDS: NIFEdipine XL 30 MG TAB.ER.24 PO SCH (12:01)
[2021-08-04] MEDS: COLLAGENASE 250 UNIT/GM OINTMENT 30 GM TUBE TOPICAL SCH (16:36)
[2021-08-04 16:47] LABS: Glucose,Whole Blood 194 mg/dL (75-99)
[2021-08-04] MEDS ORDERED: cloNIDine HCL 0.1 MG TAB PO STA (17:11)
--- NOTE | 2021-08-04 17:16 | P.HPIM ---
History of Present Illness H&P Date: 08/04/21 Chief Complaint: Toe gangrene History of presenting complaint: This is a pleasant 86-year-old patient who follows with Dr. Ramirez. Chronic stable medical conditions include coronary coronary artery disease, left-sided weakness from prior stroke, diabetes, blind in the right eye, hypertension, hyperlipidemia, hypothyroid, chronic pain, osteoarthritis, peripheral neuropath y, esophageal strictures , urinary incontinence. baseline uses a walker. Lives with her . 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 Prior angiogram showed severe infrapopliteal occlusive disease. Patient has not been keen for any amputation and has therefore just been having wound care and follows at the wound care center. Patient was recently in the hospital from July 25 through July 28. With left foot second toe gangrene. Was put on IV Unasyn. An discharge and doxycycline and Ceftin for outpatient amputation. Patient is having increasing discomfort at the granddaughter brought the patient to ER. No fever no chills. Local pain. Appetite fair. Dr. Langley was consulted. No chest pain or shortness of breath. Review of systems: GEN.: Tired EYES: Blind in the right eye HEENT: Decreased hearing NECK: None RESPIRATORY: None CARDIOVASCULAR: None GASTROINTESTINAL: None GENITOURINARY: None MUSCULOSKELETAL: Joint pains, muscle weakness, as above LYMPHATICS: None HEMATOLOGICAL: None PSYCHIATRY: None NEUROLOGICAL: Peripheral neuropathy, blind in the right eye Past medical history to include: CAD, left-sided weakness from prior stroke, diabetes, blind in the right eye, hypertension, hyperlipidemia, hypothyroid, chronic pain, osteoarthritis, peripheral neuropathy, esophageal stricture, urinary incontinence, uses a walker, PAD Social history: Does not smoke or drink alcohol. . Does use a walker Family history: Cancer. Father of cirrhosis, from alcoholism Physical examination: VITAL SIGNS: 97.5, 66, 16, 160/69, 99% room air GENERAL: BMI 29.3, laying in bed awake, tired. EYES: Blind in the right eyel. HEENT: External appearance of nose and ears normal, oral cavity grossly normal. NECK: JVD not raised; masses not palpable. HEART: First and second heart sounds are normal; no edema. LUNGS: Respiratory rate normal; clear to auscultation. ABDOMEN: Soft, nontender, liver spleen not palpable, no masses palpable. PSYCH: Alert and oriented x3; mood and affect normal. MUSCULOSKELETAL:No Clubbing/cyanosis;muscles-grossly intact. Wound at the base of the left foot third and fourth toe. Left foot second toe gangrene. NEUROLOGICAL: Cranial nerves grossly intact; no facial asymmetry, power and sensation grossly intact. Chronic left-sided weakness. Blind in the right eye. LYMPHATICS: No lymph nodes palpable in the axilla and neck.. INVESTIGATIONS, reviewed in the clinical context White count 8.60 globin 10.5 platelets 3294.2. 23 creatinine 0.77 Coronavirus [PCR]: Not detected EKG tracing personally reviewed by me-normal sinus rhythm. Rate 70 nonspecific T-wave changes. Chest x-ray film personally reviewed by me-lungs clear Assessment and plan: -Left foot second toe gangrene. underlying severe iliofemoral disease. Questionable infection. : 4 amputation Continue Ceftin and doxycycline. -Essential hypertension: Uncontrolled. Procardia XL 30 mg a day. Lopressor 50 mg by mouth twice a day. Add lisinopril hydrochlorothiazide 10/12.5 one tablet twice daily -chronic right shoulder dysfunction -Coronary artery disease, prior history of bypass 2008 Lopressor, -Diabetes mellitus type 2 on oral hypoglycemic, uncontrolled with hyperglycemia from infection trajenta 5 mg a day. Accu-Cheks and sliding scale . Add Levemir 14 units daily at bedtime -Blind in the right eye, chronic -Hyperlipidemia Continue Lipitor -Hypothyroidism 50 g a day Synthroid -Primary osteoarthritis Continue pain medications -Diabetic peripheral neuropathy -Chronic urinary incontinence Depend -Chronic gait dysfunction uses a walker Add lisinopril hydrochlorothiazide 10/12.5 one tablet twice daily. Home medications resumed. Continue oral antibiotics. Consultation with Dr. Langley from vascular, cardiology for [facility]-operative management indicators. Care was discussed with the patient. Follow Accu-Cheks. Hold glyburide. Levemir 14 units subcu daily at bedtime Given the complexity and severity of patient's condition expect the patient to be in the hospital at least for 2 overnights 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, dysphagia,esophageal strictures with dilation, hiatal hernia, L eye diabetic retinopathy/R eye blindness, bilateral [place], UTIS/urinary leakage, past bilateral feet sores/osteomylitis, generalized pain, bilateral carpal tunnel syndrome, vertigo, hypothyroid, anemia History of Any Multi-Drug Resistant Organisms: MRSA Date of last positivie culture/infection: 07/24/21 MDRO Source:: MRSA FOOT Past Surgical History: Bladder Surgery, Cholecystectomy, Coronary Bypass/CABG, Heart Catheterization, Hysterectomy Additional Past Surgical History / Comment(s): 2007 CABG 4 vessel, EGDs with dilations, colonoscopies, cataract removal, D&C, bladder suspension, PICC, loop recorder, toe amputation may 2021 Past Anesthesia/Blood Transfusion Reactions: Motion Sickness, Postoperative N ausea & Vomiting (PONV) Past Psychological History: No Psychological Hx Reported Additional Psychological History / Comment(s): Pt resides alone, in May 2021. Just recently set up 24/7 care at home. Pt uses a walker to ambulate. She has a glucometer, b/p cuff and shower chair. dinners. Smoking Status: Never smoker Past Alcohol Use History: None Reported Past Drug Use History: None Reported - Past Family History Father Family Medical History: Liver Disease Additional Family Medical History / Comment(s): Father of cirrhosis. He was a drinker. Mother History Unknown: Yes Family Medical History: Unable to Obtain Additional Family Medical History / Comment(s): Pt states she does not know her mother's medical history, but knows she at the age of 62 yrs.. Son(s) Family Medical History: Unable to Obtain, Renal Disease Daughter(s) Family Medical History: Cancer Medications and Allergies Home Medications Medication Instructions Recorded Confirmed Type Omeprazole [PriLOSEC] 20 mg PO DAILY 01/06/20 08/03/21 History Atorvastatin [Lipitor] 40 mg PO DAILY 12/02/20 08/03/21 History Acetaminophen Tab [Tylenol] 500 mg PO Q6H PRN 07/24/21 08/03/21 History Cholecalciferol [Vitamin D3 (25 50 mcg PO DAILY 07/24/21 08/03/21 History Mcg = 1000 Iu)] Collagenase [Santyl Ointment] 1 applic TOPICAL DAILY 07/24/21 08/03/21 History Cranberry Fruit Extract [Cranberry] 500 mg PO DAILY 07/24/21 08/03/21 History Levothyroxine Sodium [Synthroid] 50 mcg PO DAILY 07/24/21 08/03/21 History NIFEdipine [NIFEdipine ER] 30 mg PO DAILY 07/24/21 08/03/21 History sitaGLIPtin [Januvia] 100 mg PO DAILY 07/24/21 08/03/21 History Cefuroxime Axetil [Ceftin] 500 mg PO BID 10 Days #20 tab 07/28/21 08/03/21 Rx Clotrimazole Cream [Lotrimin Cream] 1 applic TOPICAL BID cream 07/28/21 08/03/21 Rx Doxycycline [Vibramycin] 100 mg PO BID 10 Days #20 capsule 07/28/21 08/03/21 Rx Metoprolol Tartrate [Lopressor] 50 mg PO BID 08/03/21 08/03/21 History glyBURIDE [Diabeta] 5 mg PO AC-BID 08/03/21 08/03/21 History Allergies Allergy/AdvReac Type Severity Reaction Status Date / Time aspirin Allergy Rash/Hives Verified 08/03/21 17:23 fish derived Allergy Rash/Hives Verified 08/03/21 17:23 Iodinated Contrast Media Allergy Rash/Hives Verified 08/03/21 17:23 [Iodinated Contrast Media - IV Dye] Iodine and Iodide Containing Allergy Rash/Hives Verified 08/03/21 17:23 Produc shellfish derived [Shellfish] Allergy Rash/Hives Verified 08/03/21 17:23 sulfamethoxazole Allergy Itching Verified 08/03/21 17:23 [From Bactrim] trimethoprim [From Bactrim] Allergy Itching Verified 08/03/21 17:23 Physical Exam Vitals: Vital Signs Temp Pulse Pulse Resp BP BP Pulse Ox 08/04/21 07:54 98.3 F 66 16 146/53 98 08/03/21 23:19 98.0 F 64 16 121/60 97 08/03/21 18:30 97.5 F L 66 16 160/69 99 08/03/21 15:27 98.1 F 72 18 154/67 100 Intake and Output 08/03/21 08/04/21 08/04/21 22:59 06:59 14:59 Intake Total 240 296 Balance 240 296 Intake: Oral 240 296 Other: # Voids 1 # Bowel Movements 0 Weight 68.039 kg Results CBC & Chem 7: 08/03/21 16:54 08/03/21 16:54 Labs: Abnormal Lab Results - Last 24 Hours (Table) 08/03/21 08/03/21 08/03/21 Range/Units 16:08 16:54 16:54 Hgb 10.5 L (11.4-16.0) gm/dL Hct 33.5 L (34.0-46.0) % BUN 23 H (7-17) mg/dL Glucose 219 H (74-99) mg/dL POC Glucose (mg/dL) 226 H (75-99) mg/dL Hemoglobin A1c (0.0-6.0) % Alkaline Phosphatase 141 H (38-126) U/L 08/03/21 08/04/21 Range/Units 16:54 07:15 Hgb (11.4-16.0) gm/dL Hct (34.0-46.0) % BUN (7-17) mg/dL Glucose (74-99) mg/dL POC Glucose (mg/dL) 235 H (75-99) mg/dL Hemoglobin A1c 10.4 H (0.0-6.0) % Alkaline Phosphatase (38-126) U/L Thrombosis Risk Factor Assmnt - Choose All That Apply Any of the Below Risk Factors Present?: Yes Each Factor Represents 1 point: Obesity (BMI >25) Other Risk Factors: Yes Each Risk Factor Represents 3 Points: Age 75 years or older Other congenital or acquired thrombophilia - If yes, enter type in comment: No Thrombosis Risk Factor Assessment Total Risk Factor Score: 4 Thrombosis Risk Factor Assessment Level: Moderate Risk
[2021-08-04] MEDS: ENOXAPARIN 40 MG/0.4 ML SYRINGE SQ SCH (17:35)
[2021-08-04 20:35] LABS: Glucose,Whole Blood 167 mg/dL (75-99)
[2021-08-04] MEDS ORDERED: INSULIN DETEMIR (LEVEMIR) 100 UNIT/ML SYR SQ SCH (21:00)
[2021-08-04] MEDS: LISINOPRIL-HCTZ 10-12.5 MG 1 EACH TAB PO SCH (22:42)
[2021-08-05] MEDS: MORPHINE SULFATE 2 MG/ML SYRINGE IVP PRN ×2 (04:25→14:01)
[2021-08-05] MEDS: LEVOTHYROXINE 50 MCG TAB PO SCH (05:53)
[2021-08-05 07:09] LABS: Glucose,Whole Blood 197 mg/dL (75-99)
[2021-08-05] MEDS: INSULIN ASPART (NovoLOG) 100 UNIT/ML VIAL SQ SCH ×4 (07:45→22:11)
[2021-08-05] MEDS: PANTOPRAZOLE 40 MG TABLET PO SCH (07:45)
[2021-08-05] MEDS: ENOXAPARIN 40 MG/0.4 ML SYRINGE SQ SCH (08:17)
[2021-08-05] MEDS: NIFEdipine XL 30 MG TAB.ER.24 PO SCH (08:18)
[2021-08-05] MEDS: METOPROLOL TARTRATE 50 MG TAB PO SCH ×2 (08:18→22:08)
[2021-08-05] MEDS: ATORVASTATIN 40 MG TAB PO SCH (08:18)
[2021-08-05] MEDS: DOXYCYCLINE 100 MG CAP PO SCH ×2 (08:18→22:08)
[2021-08-05] MEDS: LISINOPRIL-HCTZ 10-12.5 MG 1 EACH TAB PO SCH (08:18)
[2021-08-05] MEDS: CLOTRIMAZOLE 1% CREAM 30 GM TUBE TOPICAL SCH ×2 (08:18→23:14)
[2021-08-05] MEDS: CHOLECALCIFEROL 25 MCG (1000 IU) TABLET PO SCH (08:18)
[2021-08-05] MEDS: LINAGLIPTIN 5 MG TABLET PO SCH (08:18)
[2021-08-05] MEDS: CEFDINIR 300 MG CAP PO SCH ×2 (08:18→22:08)
[2021-08-05] MEDS: COLLAGENASE 250 UNIT/GM OINTMENT 30 GM TUBE TOPICAL SCH (08:19)
[2021-08-05] MEDS ORDERED: lisinopriL 10 MG TAB PO STA (09:22)
[2021-08-05] MEDS ORDERED: bisacodyL 10 MG SUPP RECTAL STA (10:06)
--- NOTE | 2021-08-05 11:36 | P.CRDCN ---
History of Present Illness History of present illness: HISTORY OF PRESENTING ILLNESS This is a pleasant 86-year-old female past medical history significant for coronary artery disease status post four-vessel CABG (HAGEN-LAD, VG-OM1, VG-OM2, VG-PDA) in 2007 and PCI to SVG to OM 2007, type 2 diabetes, hypertension, dyslipidemia, peripheral vascular disease, TIA/CVA, loop recorder placement. She follows in the office with Dr. Arevalo. We have been asked to see in consultation for cardiac clearance. Patient presents emergency department on 08/03/2021 by her PCP for an ongoing infection of the wound on the left foot. She was recently admitted from 07/24/21-07/28/21 with similar complaint was treated with IV Unasyn and discharged on Ceftin and doxycycline. Patient having worsening pain to her left leg and was brought to the ER. She denies any chest pain, shortness of breath, lightheadedness, syncope or near syncope, orthopnea or PND. DIAGNOSTICS EKG reveals sinus rhythm, heart rate 70, right axis deviation, no significant ST-T wave abnormalities Most recent echocardiogram 01/2019 revealed an EF of 5560% Most recent stress test in the office in 2014 revealed no evidence of reversible ischemia Loop Recorder Device check 05/2021 revealed one episode of sinus bradycardia, no abnormalities, no arrhythmia Chest xray no acute cardiopulmonary disease Laboratory reviewed, WBC 8.6, Humulin 10.5, platelets 309, sodium 139, potassium 4.2, BUN 23, serum creatinine 0.7, covid-19 negative Current home medications include Januvia, nifedipine 30 mg daily, metoprolol titrate 50 mg twice a day, atorvastatin 40 mg daily REVIEW OF SYSTEMS At the time of my exam: CONSTITUTIONAL: Denies fever or chills. CARDIOVASCULAR: Denies chest pain, shortness of breath, orthopnea, PND or palpitations. RESPIRATORY: Denies cough. GASTROINTESTINAL: Denies abdominal pain, diarrhea, constipation, nausea or vomiting. MUSCULOSKELETAL: Denies myalgias. NEUROLOGIC: Denies numbness, tingling, headache or weakness. ENDOCRINE: Denies fatigue, weight change, polydipsia or polyurina. GENITOURINARY: Denies burning, hematuria or urgency with micturation. HEMATOLOGIC: history of anemia denies bleeding. PHYSICAL EXAMINATION Blood pressure 173/71, heart rate 60, afebrile, saturations 96% on room air CONSTITUTIONAL: No apparent distress. HEENT: Head is normocephalic. Pupils are equal, round. Sclerae anicteric. Mucous membranes of the mouth are moist. No JVD. No carotid bruit. CHEST EXAMINATION: Lungs are clear to auscultation. No chest wall tenderness is noted on palpation or with deep breathing. HEART EXAMINATION: Regular rate and rhythm. S1, S2 heard. No murmurs, gallops or rub. ABDOMEN: Soft, nontender. Positive bowel sounds. EXTREMITIES: no lower extremity edema NEUROLOGIC EXAMINATION: Patient is awake, alert and oriented x3. ASSESSMENT Left foot second toe gangrene Hypertension Coronary artery disease status post four-vessel CABG (HAGEN-LAD, VG-OM1, VG-OM2, VG-PDA) in 2007 and PCI to SVG to OM 2007 Type 2 diabetes Hypertension Dyslipidemia Peripheral vascular disease History of TIA/CVA PLAN Obtain 2D echocardiogram and doppler study to assess cardiac structure and function. Increase lisinopril-hctz to 20mg-12.5mg daily Continue statin, nifedipine and metoprolol. Patient allergic to aspirin -From a cardiology perspective, There are no absolute contraindications to undergo surgery at this time. Patient is not able to perform >4 METs levels of activity, however, patient does not have any acute cardiac conditions, she is not in congestive heart failure on exam, no chest pain or shortness of breath, she is hemodynamically stable. Benefit of surgery outweighs risk at this time. Nurse Practitioner note has been reviewed, I agree with a documented findings and plan of care. Patient was seen and examined. 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, dysphagia,esophageal strictures with dilation, hiatal hernia, L eye diabetic retinopathy/R eye blin dness, bilateral [place], UTIS/urinary leakage, past bilateral feet sores/osteomylitis, generalized pain, bilateral carpal tunnel syndrome, vertigo, hypothyroid, anemia History of Any Multi-Drug Resistant Organisms: MRSA Date of last positivie culture/infection: 07/24/21 MDRO Source:: MRSA FOOT Past Surgical History: Bladder Surgery, Cholecystectomy, Coronary Bypass/CABG, Heart Catheterization, Hysterectomy Additional Past Surgical History / Comment(s): 2007 CABG 4 vessel, EGDs with dilations, colonoscopies, cataract removal, D&C, bladder suspension, PICC, loop recorder, toe amputation may 2021 Past Anesthesia/Blood Transfusion Reactions: Motion Sickness, Postoperative Nausea & Vomiting (PONV) Past Psychological History: No Psychological Hx Reported Additional Psychological History / Comment(s): Pt resides alone, in May 2021. Just recently set up 24/7 care at home. Pt uses a walker to ambulate. She has a glucometer, b/p cuff and shower chair. dinners. Smoking Status: Never smoker Past Alcohol Use History: None Reported Past Drug Use History: None Reported - Past Family History Father Family Medical History: Liver Disease Additional Family Medical History / Comment(s): Father of cirrhosis. He was a drinker. Mother History Unknown: Yes Family Medical History: Unable to Obtain Additional Family Medical History / Comment(s): Pt states she does not know her mother's medical history, but knows she at the age of 62 yrs.. Son(s) Family Medical History: Unable to Obtain, Renal Disease Daughter(s) Family Medical History: Cancer Medications and Allergies Home Medications Medication Instructions Recorded Confirmed Type Omeprazole [PriLOSEC] 20 mg PO DAILY 01/06/20 08/03/21 History Atorvastatin [Lipitor] 40 mg PO DAILY 12/02/20 08/03/21 History Acetaminophen Tab [Tylenol] 500 mg PO Q6H PRN 07/24/21 08/03/21 History Cholecalciferol [Vitamin D3 (25 50 mcg PO DAILY 07/24/21 08/03/21 History Mcg = 1000 Iu)] Collagenase [Santyl Ointment] 1 applic TOPICAL DAILY 07/24/21 08/03/21 History Cranberry Fruit Extract [Cranberry] 500 mg PO DAILY 07/24/21 08/03/21 History Levothyroxine Sodium [Synthroid] 50 mcg PO DAILY 07/24/21 08/03/21 History NIFEdipine [NIFEdipine ER] 30 mg PO DAILY 07/24/21 08/03/21 History sitaGLIPtin [Januvia] 100 mg PO DAILY 07/24/21 08/03/21 History Cefuroxime Axetil [Ceftin] 500 mg PO BID 10 Days #20 tab 07/28/21 08/03/21 Rx Clotrimazole Cream [Lotrimin Cream] 1 applic TOPICAL BID cream 07/28/21 08/03/21 Rx Doxycycline [Vibramycin] 100 mg PO BID 10 Days #20 capsule 07/28/21 08/03/21 Rx Metoprolol Tartrate [Lopressor] 50 mg PO BID 08/03/21 08/03/21 History glyBURIDE [Diabeta] 5 mg PO AC-BID 08/03/21 08/03/21 History Allergies Allergy/AdvReac Type Severity Reaction Status Date / Time aspirin Allergy Rash/Hives Verified 08/03/21 17:23 fish derived Allergy Rash/Hives Verified 08/03/21 17:23 Iodinated Contrast Media Allergy Rash/Hives Verified 08/03/21 17:23 [Iodinated Contrast Media - IV Dye] Iodine and Iodide Containing Allergy Rash/Hives Verified 08/03/21 17:23 Produc shellfish derived [Shellfish] Allergy Rash/Hives Verified 08/03/21 17:23 sulfamethoxazole Allergy Itching Verified 08/03/21 17:23 [From Bactrim] trimethoprim [From Bactrim] Allergy Itching Verified 08/03/21 17:23 Physical Exam Vitals: Vital Signs Temp Pulse Resp BP BP Pulse Ox 08/05/21 08:00 98.2 F 58 L 16 173/71 96 08/05/21 01:20 98.3 F 60 16 155/72 99 08/04/21 21:35 62 16 08/04/21 19:26 97.6 F 62 16 130/62 100 08/04/21 17:00 178/60 175/58 08/04/21 14:00 97.9 F 54 L 16 185/65 98 Intake and Output 08/04/21 08/05/21 08/05/21 22:59 06:59 14:59 Intake Total 296 236 Balance 296 236 Intake: Oral 296 236 Other: # Voids 3 2 1 # Bowel Movements 1 0 1 Results 08/03/21 16:54 08/03/21 16:54 Current Medications Generic Name Dose Route Start Last Admin Trade Name Freq PRN Reason Stop Dose Admin Acetaminophen 500 mg 08/04/21 10:25 Acetaminophen Tab 500 Mg Tab PO Q6H PRN Pain Atorvastatin Calcium 40 mg 08/04/21 10:30 08/05/21 08:18 Atorvastatin 40 Mg Tab PO 40 mg DAILY [facility] Administration Cefdinir 300 mg 08/04/21 10:30 08/05/21 08:18 Cefdinir 300 Mg Cap PO 300 mg BID [facility] Administration Cholecalciferol 50 mcg 08/04/21 10:30 08/05/21 08:18 Cholecalciferol 25 Mcg (1000 Iu) Tablet PO 50 mcg DAILY [facility] Administration Clotrimazole 1 applic 08/04/21 10:30 08/05/21 08:18 Clotrimazole 1% Cream 30 Gm Tube TOPICAL 1 applic BID [facility] Administration Protocol Doxycycline Monohydrate 100 mg 08/04/21 10:30 08/05/21 08:18 Doxycycline 100 Mg Cap PO 100 mg BID [facility] Administration Enoxaparin Sodium 40 mg 08/04/21 17:15 08/05/21 08:17 Enoxaparin 40 Mg/0.4 Ml Syringe SQ 40 mg DAILY [facility] Administration Lisinopril/HCTZ 1 each 08/06/21 09:00 Lisinopril-Hctz 20-12.5 Mg 1 Each Tab PO DAILY [facility] Insulin Aspart 0 unit 08/04/21 07:30 08/05/21 07:45 Insulin Aspart (Novolog) 100 Unit/Ml Vial SQ 2 unit ACHS [facility] Administration Protocol Insulin Detemir 14 unit 08/04/21 21:00 08/04/21 21:43 Insulin Detemir (Levemir) 100 Unit/Ml Syr SQ 14 unit HS [facility] Administration Levothyroxine Sodium 50 mcg 08/04/21 10:30 08/05/21 05:53 Levothyroxine 50 Mcg Tab PO 50 mcg DAILY@0630 [facility] Administration Linagliptin 5 mg 08/04/21 10:30 08/05/21 08:18 Linagliptin 5 Mg Tablet PO 5 mg DAILY [facility] Administration Metoprolol Tartrate 50 mg 08/04/21 10:30 08/05/21 08:18 Metoprolol Tartrate 50 Mg Tab PO 50 mg BID [facility] Administration Morphine Sulfate 2 mg 08/03/21 18:35 08/05/21 04:25 Morphine Sulfate 2 Mg/Ml Syringe IVP 2 mg Q4HR PRN Administration Pain/Discomfort Naloxone HCl 0.2 mg 08/03/21 18:33 Naloxone 0.4 Mg/Ml 1 Ml Vial IV Q2M PRN Opioid Reversal Nifedipine 30 mg 08/04/21 10:30 08/05/21 08:18 Nifedipine Xl 30 Mg Tab.Er.24 PO 30 mg DAILY [facility] Administration Collagenase 250 Unit 1 each 08/04/21 10:30 08/05/21 08:19 /Gm Ointment 30 Gm TOPICAL Not Given Tube DAILY [facility] Protocol Ondansetron HCl 4 mg 08/03/21 18:36 Ondansetron 4 Mg/2 Ml Vial IVP Q6H PRN Nausea Pantoprazole Sodium 40 mg 08/04/21 10:30 08/05/21 07:45 Pantoprazole 40 Mg Tablet PO 40 mg DAILY@0730 [facility] Administration Intake and Output 08/04/21 08/05/21 08/05/21 22:59 06:59 14:59 Intake Total 296 236 Balance 296 236 Intake: Oral 296 236 Other: # Voids 3 2 1 # Bowel Movements 1 0 1 08/03/21 16:54 08/03/21 16:54
[2021-08-05 11:53] LABS: Glucose,Whole Blood 119 mg/dL (75-99)
[2021-08-05 12:55] VITALS: BMI 29.2
--- NOTE | 2021-08-05 14:08 | ECHOF ---
Referral Reason:LV function MEASUREMENTS -------- HEIGHT: 152.4 cm WEIGHT: 68.0 kg BP: 155/72 IVSd: 1.3 cm (0.6 - 1.1) LVIDd: 4.6 cm (3.9 - 5.3) LVPWd: 1.1 cm (0.6 - 1.1) EDV(Teich): 96 ml IVSs: 1.4 cm LVIDs: 2.9 cm LVPWs: 1.5 cm %IVS Thck: 14 % ESV(Teich): 33 ml EF(Teich): 66 % %FS: 36 % SV(Teich): 63 ml LA Diam: 4.1 cm (2.7 - 3.8) RVIDd: 2.8 cm (< 3.3) LALs A4C: 5.6 cm LAAs A4C: 19.8 cm LAESV A-L A4C: 59 ml LAESV MOD A4C: 55 ml LALs A2C: 5.9 cm LAAs A2C: 20.8 cm LAESV A-L A2C: 62 ml LAESV MOD A2C: 61 ml LAESV(A-L): 62 ml LAESV Index (A-L): 37.66 ml/m Ao Diam: 2.9 cm (2.0 - 3.7) AV Cusp: 1.6 cm (1.5 - 2.6) EPSS: 0.5 cm MV E Simeon: 1.50 m/s MV DecT: 476 ms MV Dec [place]: 3.2 m/s MV A Simeon: 1.18 m/s MV E/A Ratio: 1.28 MV PHT: 138 ms MV Vmax: 1.99 m/s MV Vmean: 0.85 m/s MV maxP.91 mmHg MV meanP.85 mmHg MV VTI: 68.6 cm AV Vmax: 1.43 m/s AV maxP.19 mmHg TR Vmax: 2.43 m/s TR maxP.65 mmHg RAP: 5.00 mmHg RVSP: 28.65 mmHg MV EF SLOPE: 29.26 mm/s (70 - 150) MV EXCURSION: 12.36 mm (> 18.000) FINDINGS -------- Sinus rhythm. This was a technically adequate study. The left ventricular size is normal. There is mild concentric left ventricular hypertrophy. Overa ll left ventricular systolic function is normal with, an EF between 60 - 65 %. The right ventricle is normal in size. LA is moderately dilated 34-39 ml/m2 The right atrium is normal in size. Interatrial and interventricular septum intact. There is mild aortic valve sclerosis. The mitral valve leaflets are moderately thickened. Moderate mitral annular calcification present. Mild tricuspid regurgitation present. Right ventricular systolic pressure is normal at < 35 mmHg. Trace/mild (physiologic) pulmonic regurgitation. The aortic root size is normal. IVC Not well visulized. There is no pericardial effusion. CONCLUSIONS -------- 1. The left ventricular size is normal. 2. There is mild concentric left ventricular hypertrophy. 3. Overall left ventricular systolic function is normal with, an EF between 60 - 65 %. 4. LA is moderately dilated 34-39 ml/m2 5. There is mild aortic valve sclerosis. 6. The mitral valve leaflets are moderately thickened. 7. Moderate mitral annular calcification present. 8. Mild tricuspid regurgitation present. 9. Trace/mild (physiologic) pulmonic regurgitation. 10. There is no pericardial effusion. EXPLOSIVES MIXER OPERATOR: Maryam Bennett RDCS
[2021-08-05 16:45] LABS: Glucose,Whole Blood 156 mg/dL (75-99)
--- NOTE | 2021-08-05 19:30 | PN ---
PROGRESS NOTE This is an 86-year-old female. Patient has gangrene changes of the left foot. The patient had amputation of the second and third toes in the past. We did the angiogram. Patient has severe infrapopliteal occlusive disease. The patient has been admitted for left above-knee amputation. The patient was seen by Cardiology. Her ejection fraction is 60%. Today I went and talked to the patient. The patient states that she is constipated. She eat and she wants to wait for surgery. I will discuss this with her daughter. If the patient does not want to go for surgery, then we will send her home and reschedule. I will also discuss with Internal Medicine. MMODL / IJN: [id number] /
--- NOTE | 2021-08-05 19:56 | P.PN ---
Progress Note - Text Progress Note Date: 08/05/21 Chief Complaint: Toe gangrene History of presenting complaint: This is a pleasant 86-year-old patient who follows with Dr. Ramirez. 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 baseline uses a walker. Lives with her . 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 Prior angiogram showed severe infrapopliteal occlusive disease. Patient has not been keen for any amputation and has therefore just been having wound care and follows at the wound care center. Patient was recently in the hospital from July 25 through July 28. With left foot second toe gangrene. Was put on IV Unasyn. An discharge and doxycycline and Ceftin for outpatient amputation. Patient is having increasing discomfort at the granddaughter brought the patient to ER. No fever no chills. Local pain. Appetite fair. Dr. Langley was consulted. No chest pain or shortness of breath. August 05. 100% of breakfast and lunch eating. Constipated. Did not respond to Dulcolax. We'll give enema. Breathing stable. Discussed with Dr. Langley. Review of systems: Was done for constitutional, cardiovascular, GI, pulmonary. relevant finding as above Active Medications Acetaminophen (Acetaminophen Tab 500 Mg Tab) 500 mg PO Q6H PRN PRN Reason: Pain Atorvastatin Calcium (Atorvastatin 40 Mg Tab) 40 mg PO DAILY [facility] Last Admin: 08/05/21 08:18 Dose: 40 mg Documented by: Cefdinir (Cefdinir 300 Mg Cap) 300 mg PO BID [facility] Last Admin: 08/05/21 08:18 Dose: 300 mg Documented by: Cholecalciferol (Cholecalciferol 25 Mcg (1000 Iu) Tablet) 50 mcg PO DAILY [facility] Last Admin: 08/05/21 08:18 Dose: 50 mcg Documented by: Clotrimazole (Clotrimazole 1% Cream 30 Gm Tube) 1 applic TOPICAL BID [facility]; Protocol Last Admin: 08/05/21 08:18 Dose: 1 applic Documented by: Doxycycline Monohydrate (Doxycycline 100 Mg Cap) 100 mg PO BID [facility] Last Admin: 08/05/21 08:18 Dose: 100 mg Documented by: Enoxaparin Sodium (Enoxaparin 40 Mg/0.4 Ml Syringe) 40 mg SQ DAILY [facility] Last Admin: 08/05/21 08:17 Dose: 40 mg Documented by: Lisinopril/HCTZ (Lisinopril-Hctz 20-12.5 Mg 1 Each Tab) 1 each PO DAILY [facility] Insulin Aspart (Insulin Aspart (Novolog) 100 Unit/Ml Vial) 0 unit SQ ACHS [facility]; Protocol Last Admin: 08/05/21 17:35 Dose: 1 unit Documented by: Insulin Detemir (Insulin Detemir (Levemir) 100 Unit/Ml Syr) 14 unit SQ HS [facility] Last Admin: 08/04/21 21:43 Dose: 14 unit Documented by: Levothyroxine Sodium (Levothyroxine 50 Mcg Tab) 50 mcg PO DAILY@0630 [facility] Last Admin: 08/05/21 05:53 Dose: 50 mcg Documented by: Linagliptin (Linagliptin 5 Mg Tablet) 5 mg PO DAILY [facility] Last Admin: 08/05/21 08:18 Dose: 5 mg Documented by: Metoprolol Tartrate (Metoprolol Tartrate 50 Mg Tab) 50 mg PO BID [facility] Last Admin: 08/05/21 08:18 Dose: 50 mg Documented by: Morphine Sulfate (Morphine Sulfate 2 Mg/Ml Syringe) 2 mg IVP Q4HR PRN PRN Reason: Pain/Discomfort Last Admin: 08/05/21 14:01 Dose: 2 mg Documented by: Naloxone HCl (Naloxone 0.4 Mg/Ml 1 Ml Vial) 0.2 mg IV Q2M PRN PRN Reason: Opioid Reversal Nifedipine (Nifedipine Xl 30 Mg Tab.Er.24) 30 mg PO DAILY [facility] Last Admin: 08/05/21 08:18 Dose: 30 mg Documented by: Collagenase 250 Unit /Gm Ointment 30 Gm Tube 1 each TOPICAL DAILY [facility]; Protocol Last Admin: 08/05/21 08:19 Dose: Not Given Documented by: Ondansetron HCl (Ondansetron 4 Mg/2 Ml Vial) 4 mg IVP Q6H PRN PRN Reason: Nausea Pantoprazole Sodium (Pantoprazole 40 Mg Tablet) 40 mg PO DAILY@0730 [facility] Last Admin: 08/05/21 07:45 Dose: 40 mg Documented by: Past medical history to include: CAD, left-sided weakness from prior stroke, diabetes, blind in the right eye, hypertension, hyperlipidemia, hypothyroid, chronic pain, osteoarthritis, peripheral neuropathy, esophageal stricture, urinary incontinence, uses a walker, PAD Social history: Does not smoke or drink alcohol. . Does use a walker Family history: Cancer. Father of cirrhosis, from alcoholism Physical examination: VITAL SIGNS: 98.1, 66, 14, 1 37 x 76, 85% room air GENERAL: , laying in bed awake, comfortable EYES: Blind in the right eyel. HEENT: External appearance of nose and ears normal, oral cavity grossly normal. NECK: JVD not raised; masses not palpable. HEART: First and second heart sounds are normal; no edema. LUNGS: Respiratory rate normal; clear to auscultation. ABDOMEN: Soft, nontender, liver spleen not palpable, no masses palpable. PSYCH: Alert and oriented x3; mood and affect normal. MUSCULOSKELETAL:No Clubbing/cyanosis;muscles-grossly intact. Wound at the base of the left foot third and fourth toe. Left foot second toe gangrene. NEUROLOGICAL: Cranial nerves grossly intact; no facial asymmetry, power and sensation grossly intact. Chronic left-sided weakness. Blind in the right eye. INVESTIGATIONS, reviewed in the clinical context White count 8.60 globin 10.5 platelets 3294.2. 23 creatinine 0.77 Coronavirus [PCR]: Not detected EKG tracing personally reviewed by me-normal sinus rhythm. Rate 70 nonspecific T-wave changes. Chest x-ray film personally reviewed by me-lungs clear Assessment and plan: -Left foot second toe gangrene. underlying severe iliofemoral disease. Questionable infection. : Pending amputation: Slow to respond Continue Ceftin and doxycycline. -Essential hypertension: Better controlled Procardia XL 30 mg a day. Lopressor 50 mg by mouth twice a day. lisinopril hydrochlorothiazide 10/12.5 one tablet twice daily -chronic right shoulder dysfunction -Coronary artery disease, prior history of bypass 2007 Lopressor, -Diabetes mellitus type 2 on oral hypoglycemic, uncontrolled with hyperglycemia from infection trajenta 5 mg a day. Accu-Cheks and sliding scale . Increase Levemir 18 units daily at bedtime -Blind in the right eye, chronic -Hyperlipidemia Continue Lipitor -Hypothyroidism 50 g a day Synthroid -Primary osteoarthritis Continue pain medications -Diabetic peripheral neuropathy -Chronic urinary incontinence Depend -Chronic gait dysfunction uses a walker Patient is medically stable to proceed for surgery [patient has known underlying CAD. Has no active cardiac symptoms. Poor exercise tolerance. Frail. High risk for surgery. With no contraindications. Continue current medication treatment plan. Increase Levemir to 18 units at night. Discussed with Dr. Langley from vascular. Stable to proceed for surgery. Enema today
[2021-08-05 21:47] LABS: Glucose,Whole Blood 189 mg/dL (75-99)
[2021-08-05] MEDS: INSULIN DETEMIR (LEVEMIR) 100 UNIT/ML SYR SQ SCH (22:08)
[2021-08-06] MEDS: ACETAMINOPHEN TAB 500 MG TAB PO PRN ×3 (03:33→21:35)
[2021-08-06] MEDS: LEVOTHYROXINE 50 MCG TAB PO SCH (05:58)
[2021-08-06 07:24] LABS: Glucose,Whole Blood 182 mg/dL (75-99)
[2021-08-06] MEDS: PANTOPRAZOLE 40 MG TABLET PO SCH (07:42)
[2021-08-06] MEDS: INSULIN ASPART (NovoLOG) 100 UNIT/ML VIAL SQ SCH ×4 (07:43→21:28)
[2021-08-06] MEDS: ENOXAPARIN 40 MG/0.4 ML SYRINGE SQ SCH (09:56)
[2021-08-06] MEDS: DOCUSATE 100 MG CAP PO SCH ×2 (09:57→18:40)
[2021-08-06] MEDS: LISINOPRIL-HCTZ 20-12.5 MG 1 EACH TAB PO SCH (09:57)
[2021-08-06] MEDS: CHOLECALCIFEROL 25 MCG (1000 IU) TABLET PO SCH (09:57)
[2021-08-06] MEDS: NIFEdipine XL 30 MG TAB.ER.24 PO SCH (09:57)
[2021-08-06] MEDS: ATORVASTATIN 40 MG TAB PO SCH (09:57)
[2021-08-06] MEDS: CEFDINIR 300 MG CAP PO SCH ×2 (09:57→21:28)
[2021-08-06] MEDS: DOXYCYCLINE 100 MG CAP PO SCH ×2 (09:57→21:28)
[2021-08-06] MEDS: LINAGLIPTIN 5 MG TABLET PO SCH (09:58)
[2021-08-06] MEDS: METOPROLOL TARTRATE 50 MG TAB PO SCH ×2 (10:09→21:28)
[2021-08-06] MEDS: COLLAGENASE 250 UNIT/GM OINTMENT 30 GM TUBE TOPICAL SCH ×2 (10:12→14:02)
[2021-08-06 11:03] LABS: Glucose,Whole Blood 222 mg/dL (75-99)
--- NOTE | 2021-08-06 12:33 | P.PN ---
Subjective This is a pleasant 86-year-old patient who follows with Dr. Ramirez. 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 baseline uses a walker. Lives with her . 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 Prior angiogram showed severe infrapopliteal occlusive disease. Patient has not been keen for any amputation and has therefore just been having wound care and follows at the wound care center. Patient was recently in the hospital from July 25 through July 28. With left foot second toe gangrene. Was put on IV Unasyn. An discharge and doxycy march and Ceftin for outpatient amputation. Patient is having increasing discomfort at the granddaughter brought the patient to ER. No fever no chills. Local pain. Appetite fair. Dr. Langley was consulted. No chest pain or shortness of breath. August 05. 100% of breakfast and lunch eating. Constipated. Did not respond to Dulcolax. We'll give enema. Breathing stable. Discussed with Dr. Langley. 08/06/2021 Patient presents with left foot infection and second toe gangrene and she is b een covered with oral antibiotics of cefdinir plus doxycycline which is continued from home. Surgical team on the case and the planned for debridement and possible leg amputation, however patient having decided to go with surgery at. Risk of avoiding surgery explained for the patient including but not limited to the risk of severe sepsis infection and/or . Cardiology clearance was requested given her extensive history of four-vessel CABG,. Objective - Vital Signs Vital signs: Vital Signs Temp 98.1 F 08/06/21 08:00 Pulse 52 L 08/06/21 08:00 Resp 16 08/06/21 08:00 BP 157/69 08/06/21 08:00 Pulse Ox 96 08/06/21 08:00 Intake & Output 08/05/21 08/06/21 08/06/21 18:59 06:59 18:59 Intake Total 532 Balance 532 Weight 68.039 kg Intake: Oral 532 Other: # Voids 2 1 # Bowel Movements 1 - Exam GENERAL: The patient is alert and oriented x3, not in any acute distress. Well developed, well nourished. HEENT: Pupils are round and equally reacting to light. EOMI. No scleral icterus. No conjunctival pallor. Normocephalic, atraumatic. No pharyngeal erythema. No thyromegaly. CARDIOVASCULAR: S1 and S2 present. No murmurs, rubs, or gallops. PULMONARY: Chest is clear to auscultation, no wheezing or crackles. ABDOMEN: Soft, nontender, nondistended, normoactive bowel sounds. No palpable organomegaly. -MUSCULOSKELETAL: No joint swelling or deformity. Wound at the base of the left foot third and fourth toe. Left foot second toe gangrene. EXTREMITIES: No cyanosis, clubbing, or pedal edema. NEUROLOGICAL: Gross neurological examination did not reveal any focal deficits. SKIN: No rashes. no petechiae. - Labs CBC & Chem 7: 08/03/21 16:54 08/03/21 16:54 Labs: Abnormal Lab Results - Last 24 Hours (Table) 08/05/21 08/05/21 08/05/21 Range/Units 11:52 16:44 21:46 POC Glucose (mg/dL) 119 H 156 H 189 H (75-99) mg/dL 08/06/21 Range/Units 07:14 POC Glucose (mg/dL) 182 H (75-99) mg/dL Assessment and Plan Assessment: Left foot cellulitis and gangrene of the second toe History of peripheral vascular disease History of coronary artery disease status post CABG Plan: This is a pleasant 86 years old female who presents with left foot infection and gangrene of the toe Continue with antibiotics, currently on Seldinger and doxycycline Vascular surgery team on the case and planned for debridement versus amputation, patient haven't made up her mind yet. Cardiac team on the case for preoperative evaluation and a history of CABG Labs and medication were reviewed.. Continue same treatment. Continue with symptomatic treatment. Resume home medication. Monitor lytes and vitals. DVT and GI prophylaxis. Further recommendationsas per clinical course of the patient DVT prophylaxis: Subcutaneous Lovenox GI Prophylaxis: Ppi PT/OT: Pending Prognosis is guarded
--- NOTE | 2021-08-06 16:25 | PN ---
PROGRESS NOTE This 86-year-old female patient has a history of peripheral vascular disease. The patient had third and fourth toe amputations in the past. The patient developed gangrenous changes of the other toes and angiogram shows severe infrapopliteal occlusive disease. Options were discussed with the patient. She was scheduled to have a left above-knee amputation. Patient was seen today again. We discussed the amputation. She wants to decide tomorrow because she has some legal issues going on about her property. If she does not want to go for amputation tomorrow, we will send her home and reschedule her for surgery. In the meantime we will continue with Santyl cream to the wound. Discussed with the patient. She wants to wait for another day. MMGAROL / IJN: [id number] /
[2021-08-06 16:55] LABS: Glucose,Whole Blood 178 mg/dL (75-99)
[2021-08-06] MEDS: CLOTRIMAZOLE 1% CREAM 30 GM TUBE TOPICAL SCH ×2 (18:38→21:29)
[2021-08-06 21:23] LABS: Glucose,Whole Blood 169 mg/dL (75-99)
[2021-08-06] MEDS: INSULIN DETEMIR (LEVEMIR) 100 UNIT/ML SYR SQ SCH (21:28)
[2021-08-07] MEDS: ACETAMINOPHEN TAB 500 MG TAB PO PRN ×2 (06:12→17:07)
[2021-08-07] MEDS: LEVOTHYROXINE 50 MCG TAB PO SCH (06:12)
[2021-08-07 07:45] LABS: Glucose,Whole Blood 99 mg/dL (75-99)
[2021-08-07] MEDS: INSULIN ASPART (NovoLOG) 100 UNIT/ML VIAL SQ SCH ×4 (08:15→22:04)
[2021-08-07] MEDS: PANTOPRAZOLE 40 MG TABLET PO SCH (08:17)
[2021-08-07] MEDS: CHOLECALCIFEROL 25 MCG (1000 IU) TABLET PO SCH (08:17)
[2021-08-07] MEDS: DOXYCYCLINE 100 MG CAP PO SCH ×2 (08:17→22:04)
[2021-08-07] MEDS: ATORVASTATIN 40 MG TAB PO SCH (08:17)
[2021-08-07] MEDS: NIFEdipine XL 30 MG TAB.ER.24 PO SCH (08:17)
[2021-08-07] MEDS: DOCUSATE 100 MG CAP PO SCH ×2 (08:17→22:04)
[2021-08-07] MEDS: METOPROLOL TARTRATE 50 MG TAB PO SCH ×2 (08:17→22:04)
[2021-08-07] MEDS: LINAGLIPTIN 5 MG TABLET PO SCH (08:17)
[2021-08-07] MEDS: ENOXAPARIN 40 MG/0.4 ML SYRINGE SQ SCH (08:18)
[2021-08-07] MEDS: CEFDINIR 300 MG CAP PO SCH ×2 (08:18→22:04)
[2021-08-07] MEDS: LISINOPRIL-HCTZ 20-12.5 MG 1 EACH TAB PO SCH (08:18)
[2021-08-07] MEDS: CLOTRIMAZOLE 1% CREAM 30 GM TUBE TOPICAL SCH ×2 (08:19→22:05)
[2021-08-07] MEDS: COLLAGENASE 250 UNIT/GM OINTMENT 30 GM TUBE TOPICAL SCH (08:19)
[2021-08-07 11:48] LABS: Glucose,Whole Blood 198 mg/dL (75-99)
--- NOTE | 2021-08-07 16:13 | P.PN ---
Subjective This is a pleasant 86-year-old patient who follows with Dr. Ramirez. 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 baseline uses a walker. Lives with her . 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 Prior angiogram showed severe infrapopliteal occlusive disease. Patient has not been keen for any amputation and has therefore just been having wound care and follows at the wound care center. Patient was recently in the hospital from July 25 through July 28. With left foot second toe gangrene. Was put on IV Unasyn. An discharge and doxycy march and Ceftin for outpatient amputation. Patient is having increasing discomfort at the granddaughter brought the patient to ER. No fever no chills. Local pain. Appetite fair. Dr. Langley was consulted. No chest pain or shortness of breath. August 05. 100% of breakfast and lunch eating. Constipated. Did not respond to Dulcolax. We'll give enema. Breathing stable. Discussed with Dr. Langley. 08/06/2021 Patient presents with left foot infection and second toe gangrene and she is b een covered with oral antibiotics of cefdinir plus doxycycline which is continued from home. Surgical team on the case and the planned for debridement and possible leg amputation, however patient having decided to go with surgery at. Risk of avoiding surgery explained for the patient including but not limited to the risk of severe sepsis infection and/or . Cardiology clearance was requested given her extensive history of four-vessel CABG,. 08/07/2021 Patient with left foot infection and gangrene of the left second toe, however patient still having decided about doing surgery yet. Risks are explained to her. She states she is afraid from the surgery. Dr. Velez talk to the patient and daughter and he cleared her for discharge and he will see the patient in his office on Monday. I want to see the patient but she was complaining also from left shoulder pain, rather than weakness. Patient has attended group and she couldn't raise her arm above her head We will do just x-ray of the left shoulder on monitor her for 24 hours if she remains stable we will consider discharge in 24-48 hours Objective - Vital Signs Vital signs: Vital Signs Temp 98.3 F 08/07/21 08:00 Pulse 60 08/07/21 08:00 Resp 16 08/07/21 08:00 BP 146/60 08/07/21 08:00 Pulse Ox 98 08/07/21 08:00 Intake & Output 08/06/21 08/07/21 08/07/21 18:59 06:59 18:59 Output Total 900 Balance -900 Output: Urine 900 Other: Voiding Method Bedside Commode Bedpan # Voids 4 3 2 # Bowel Movements 2 - Exam GENERAL: The patient is alert and oriented x3, not in any acute distress. Well developed, well nourished. HEENT: Pupils are round and equally reacting to light. EOMI. No scleral icterus. No conjunctival pallor. Normocephalic, atraumatic. No pharyngeal erythema. No thyromegaly. CARDIOVASCULAR: S1 and S2 present. No murmurs, rubs, or gallops. PULMONARY: Chest is clear to auscultation, no wheezing or crackles. ABDOMEN: Soft, nontender, nondistended, normoactive bowel sounds. No palpable organomegaly. -MUSCULOSKELETAL: No joint swelling or deformity. Wound at the base of the left foot third and fourth toe. Left foot second toe gangrene. EXTREMITIES: No cyanosis, clubbing, or pedal edema. NEUROLOGICAL: Gross neurological examination did not reveal any focal deficits. SKIN: No rashes. no petechiae. - Labs CBC & Chem 7: 08/03/21 16:54 08/03/21 16:54 Labs: Abnormal Lab Results - Last 24 Hours (Table) 08/06/21 08/06/21 08/07/21 Range/Units 16:37 21:21 11:47 POC Glucose (mg/dL) 178 H 169 H 198 H (75-99) mg/dL Assessment and Plan Assessment: Left foot cellulitis and gangrene of the second toe left shoulder pain History of peripheral vascular disease History of coronary artery disease status post CABG Plan: This is a pleasant 86 years old female who presents with left foot infection and gangrene of the toe Continue with antibiotics, currently on cefdinir and doxycycline Vascular surgery team on the case and planned for debridement versus amputation, patient haven't made up her mind yet. Per Dr. Velez patient can be discharged and follow-up as an outpatient Check shoulder x-ray Cardiac team on the case for preoperative evaluation and a history of CABG Labs and medication were reviewed.. Continue same treatment. Continue with symptomatic treatment. Resume home medication. Monitor lytes and vitals. DVT and GI prophylaxis. Further recommendationsas per clinical course of the patient DVT prophylaxis: Subcutaneous Lovenox GI Prophylaxis: Ppi PT/OT: Pending Prognosis is guarded
--- NOTE | 2021-08-07 16:32 | XR ---
EXAMINATION TYPE: XR shoulder complete LT DATE OF EXAM: 08/07/2021 COMPARISON: NONE HISTORY: Shoulder pain TECHNIQUE: 3 views FINDINGS: There is some calcification at the greater tuberosity humerus consistent with calcific tend initis. There is spurring of the glenoid kenneth. There is subacromial joint space narrowing. IMPRESSION: Calcific tendinitis. No fracture seen.
[2021-08-07 16:58] LABS: Glucose,Whole Blood 110 mg/dL (75-99)
[2021-08-07 20:25] LABS: Glucose,Whole Blood 187 mg/dL (75-99)
[2021-08-07] MEDS: INSULIN DETEMIR (LEVEMIR) 100 UNIT/ML SYR SQ SCH (22:04)
[2021-08-08] MEDS: ACETAMINOPHEN TAB 500 MG TAB PO PRN (05:53)
[2021-08-08] MEDS: LEVOTHYROXINE 50 MCG TAB PO SCH (05:54)
[2021-08-08 06:56] LABS: Glucose,Whole Blood 114 mg/dL (75-99)
[2021-08-08] MEDS: INSULIN ASPART (NovoLOG) 100 UNIT/ML VIAL SQ SCH ×2 (07:05→12:18)
[2021-08-08] MEDS: PANTOPRAZOLE 40 MG TABLET PO SCH (07:45)
[2021-08-08 07:56] VITALS: BP 169/68; PULSE 53; RESP 18; TEMP 98.6
[2021-08-08] MEDS: ENOXAPARIN 40 MG/0.4 ML SYRINGE SQ SCH (08:00)
[2021-08-08] MEDS: LINAGLIPTIN 5 MG TABLET PO SCH (08:01)
[2021-08-08] MEDS: CEFDINIR 300 MG CAP PO SCH (08:01)
[2021-08-08] MEDS: DOXYCYCLINE 100 MG CAP PO SCH (08:01)
[2021-08-08] MEDS: DOCUSATE 100 MG CAP PO SCH (08:01)
[2021-08-08] MEDS: CHOLECALCIFEROL 25 MCG (1000 IU) TABLET PO SCH (08:01)
[2021-08-08] MEDS: LISINOPRIL-HCTZ 20-12.5 MG 1 EACH TAB PO SCH (08:01)
[2021-08-08] MEDS: NIFEdipine XL 30 MG TAB.ER.24 PO SCH (08:01)
[2021-08-08] MEDS: CLOTRIMAZOLE 1% CREAM 30 GM TUBE TOPICAL SCH (08:01)
[2021-08-08] MEDS: METOPROLOL TARTRATE 50 MG TAB PO SCH (08:01)
[2021-08-08] MEDS: COLLAGENASE 250 UNIT/GM OINTMENT 30 GM TUBE TOPICAL SCH (08:01)
[2021-08-08] MEDS: ATORVASTATIN 40 MG TAB PO SCH (08:01)
--- NOTE | 2021-08-08 11:03 | P.CNOR ---
History of Present Illness - [facility] Consult date: 08/08/21 Consult reason: joint pain (Left shoulder pain) History of present illness: Patient is an 86-year-old female who was admitted to the hospital earlier this week with regards to an infection involving her left foot. She's been followed by internal medicine and vascular surgery. During the hospital stay, she has developed some shoulder pain. An x-ray was done, and with the report from radiology internal medicine consult Dr. rebel marie. Patient was evaluated at bedside, she's resting comfortably. She states that the shoulder pain on the left side started a few days ago. She denies any recent trauma, this including falls. According to the nursing staff, she has been utilizing her upper extremities more often due to the issue with the left lower extremity. She denies any previous orthopedic surgery of the left upper extremity. Patient has vague right shoulder pain also that has began. She has no other orthopedic complaints at this time. Review of Systems Constitutional: Reports as per HPI Past Medical History Past Medical History: Coronary Artery Disease (CAD), Chest Pain / Angina, CVA/TIA, Diabetes Mellitus, Eye Disorder, GERD/Reflux, Hyperlipidemia, Hypertension, Osteoarthritis (OA), Syncope, Thyroid Disorder Additional Past Medical History / Comment(s): NIDDM type II, neuropathy bilateral hands, 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, dysphagia,esophageal strictures with dilation, hiatal hernia, L eye diabetic retinopathy/R eye blindness, bilateral ELIM IRA, UTIS/urinary leakage, past bilateral feet sores/osteomylitis, generalized pain, bilateral carpal tunnel syndrome, vertigo, hypothyroid, anemia History of Any Multi-Drug Resistant Organisms: MRSA Year Discovered:: 07/24/21 MDRO Source:: MRSA FOOT Past Surgical History: Bladder Surgery, Cholecystectomy, Coronary Bypass/CABG, Heart Catheterization, Hysterectomy Additional Past Surgical History / Comment(s): 2007 CABG 4 vessel, EGDs with dilations, colonoscopies, cataract removal, D&C, bladder suspension, PICC, loop recorder, toe amputation may 2021 Past Anesthesia/Blood Transfusion Reactions: Motion Sickness, Postoperative Nausea & Vomiting (PONV) Past Psychological History: No Psychological Hx Reported Additional Psychological History / Comment(s): Pt resides alone, in May 2021. Just recently set up 24/7 care at home. Pt uses a walker to ambulate. She has a glucometer, b/p cuff and shower chair. dinners. Smoking Status: Never smoker Past Alcohol Use History: None Reported Past Drug Use History: None Reported - Past Family History Father Family Medical History: Liver Disease Additional Family Medical History / Comment(s): Father of cirrhosis. He was a drinker. Mother History Unknown: Yes Family Medical History: Unable to Obtain Additional Family Medical History / Comment(s): Pt states she does not know her mother's medical history, but knows she at the age of 62 yrs.. Son(s) Family Medical History: Unable to Obtain, Renal Disease Daughter(s) Family Medical History: Cancer Medications and Allergies Home Medications Medication Instructions Recorded Confirmed Type Omeprazole [PriLOSEC] 20 mg PO DAILY 01/06/20 08/03/21 History Atorvastatin [Lipitor] 40 mg PO DAILY 12/02/20 08/03/21 History Acetaminophen Tab [Tylenol] 500 mg PO Q6H PRN 07/24/21 08/03/21 History Cholecalciferol [Vitamin D3 (25 50 mcg PO DAILY 07/24/21 08/03/21 History Mcg = 1000 Iu)] Collagenase [Santyl Ointment] 1 applic TOPICAL DAILY 07/24/21 08/03/21 History Cranberry Fruit Extract [Cranberry] 500 mg PO DAILY 07/24/21 08/03/21 History Levothyroxine Sodium [Synthroid] 50 mcg PO DAILY 07/24/21 08/03/21 History NIFEdipine [NIFEdipine ER] 30 mg PO DAILY 07/24/21 08/03/21 History sitaGLIPtin [Januvia] 100 mg PO DAILY 07/24/21 08/03/21 History Cefuroxime Axetil [Ceftin] 500 mg PO BID 10 Days #20 tab 07/28/21 08/03/21 Rx Clotrimazole Cream [Lotrimin Cream] 1 applic TOPICAL BID cream 07/28/21 08/03/21 Rx Doxycycline [Vibramycin] 100 mg PO BID 10 Days #20 capsule 07/28/21 08/03/21 Rx Metoprolol Tartrate [Lopressor] 50 mg PO BID 08/03/21 08/03/21 History glyBURIDE [Diabeta] 5 mg PO AC-BID 08/03/21 08/03/21 History Allergies Allergy/AdvReac Type Severity Reaction Status Date / Time aspirin Allergy Rash/Hives Verified 08/03/21 17:23 fish derived Allergy Rash/Hives Verified 08/03/21 17:23 Iodinated Contrast Media Allergy Rash/Hives Verified 08/03/21 17:23 [Iodinated Contrast Media - IV Dye] Iodine and Iodide Containing Allergy Rash/Hives Verified 08/03/21 17:23 Produc shellfish derived [Shellfish] Allergy Rash/Hives Verified 08/03/21 17:23 sulfamethoxazole Allergy Itching Verified 08/03/21 17:23 [From Bactrim] trimethoprim [From Bactrim] Allergy Itching Verified 08/03/21 17:23 Physical Examination Left upper extremity: Obvious open lesions or sores are present throughout the extremity, Mild soft tissue swelling noted over the anterior lateral joint line Patient demonstrates tenderness with palpation of the glenohumeral joint line, obvious crepitance is felt. Mild tenderness with palpation on the lateral posterior aspect of the shoulder. Patient inserts no tenderness with palpation of the lower arm, elbow, forearm, hand or wrist Range of motion is very limited, she can forward elevate actively to about 100, abduction is about 90. External rotation is about 40. Passively I'm able to extend these range of motion is slightly, there is pain reproduced over the glenohumeral joint line Range of motion is intact with elbow extension and flexion, wrist extension and flexion and melter assistant. Sensory exam to light touch is intact throughout the extremity Radial/ulnar pulses are 2+ Results - Labs Labs: Abnormal Lab Results - Last 24 Hours (Table) 08/07/21 08/07/21 08/07/21 Range/Units 11:47 16:57 20:23 POC Glucose (mg/dL) 198 H 110 H 187 H (75-99) mg/dL 08/08/21 Range/Units 06:54 POC Glucose (mg/dL) 114 H (75-99) mg/dL H & H 08/03/21 Range/Units 16:54 Hgb 10.5 L (11.4-16.0) gm/dL Hct 33.5 L (34.0-46.0) % Coagulation 08/03/21 Range/Units 16:54 INR 1.1 (<1.2) Result Diagrams: 08/03/21 16:54 08/03/21 16:54 - Diagnostic results Shoulder x-ray: report reviewed, image reviewed (Images demonstrated no acute fractures or dislocations. Severe glenohumeral joint arthritis is present. There is moderate before AC joint arthritis present. ) Assessment and Plan Assessment: Left shoulder pain Left shoulder AC joint arthritis Left shoulder impingement Left shoulder osteoarthritis Multiple medical comorbidities Plan: I was able to discuss the case, this to include physical physical exam findings and imaging studies my tenting Dr. Moreno. No orthopedic surgical intervention recommended at this time. With the x-ray findings demonstrating obvious osteoarthritic changes, I measured and this is a chronic problem for her. Patient may have a aspect of rotator cuff arthropathy with chronic rotator cuff tear also. I anticipate with her increased use of the upper extremities is why the symptoms are presenting., Especially with utilizing a walker due to her left lower extremity problem. Recommend Tylenol, anti-inflammatories if they don't interact with any current medications. On reviewing other providers notes, there is been talk of amputation involving the left lower extremity. With current medical condition, patient is a very poor surgical candidate for any other orthopedic issues. We would be able to evaluate the patient in the outpatient setting at a later date to discuss further treatment options. Orthopedically patient is stable for discharge Time with Patient: Less than 30
[2021-08-08 11:43] LABS: Glucose,Whole Blood 174 mg/dL (75-99)
--- NOTE | 2021-08-08 22:05 | P.DS ---
Providers Date of admission: 08/03/21 18:21 Attending physician: Elan Nagel Consults: 08/03/21 18:34 Consult Physician Routine Consulting Provider: Heraclio Velez Consult Reason/Comments: Left foot infection/vascular insufficiency Do you want consulting provider notified?: Already Contacted 08/04/21 17:15 Consult Physician Routine Consulting Provider: Chucho Nath Consult Reason/Comments: Perioperative management and clearance Do you want consulting provider notified?: Yes 08/08/21 10:18 Consult Physician Routine Consulting Provider: Micheal Currie Consult Reason/Comments: left shoulder pain Do you want consulting provider notified?: Already Contacted Primary care physician: [facility] Hospital Course: Diagnoses: Left foot cellulitis and gangrene of the second toe left shoulder pain. Patient refused surgery and she is going to follow up with Dr. Dr. Velez as an outpatient in a few days Left shoulder calcified tendinitis related to her osteoarthritis History of peripheral vascular disease History of coronary artery disease status post CABG Hospital course: This is a pleasant 86-year-old patient who follows with Dr. Ramirez. 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 baseline uses a walker. Lives with her . 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 Prior angiogram showed severe infrapopliteal occlusive disease. Patient has not been keen for any amputation and has therefore just been having wound care and follows at the wound care center. Patient presents With left foot second toe gangrene. And left foot wound and cellulitis. Patient she was placed on antibiotic of cefdinir and doxycycline. Dr. Velez from vascular surgery were following the patient closely and he recommended debridement of her foot wound however patient and family declined and they want patient to be discharged and they don't follow up as an outpatient. I spoke with Dr. Langley yesterday and today and he cleared her for discharge. And he wants to see her in the office in this coming week. Patient and family informed and they agree. She had left shoulder x-ray because of some pain in her that area showing calcified tendinitis, orthopedic consult was obtained and they recommended to continue with conservative management as it is related to her age and uterine we are affect and probable osteoarthritis, patient informed with recommendation to follow up as an outpatient and she agrees. No weakness or numbness in her upper or lower extremities. On the day of discharge she is fully awake and oriented, she denies chest pain or dyspnea. No vomiting or diarrhea. No fever. Patient was cleared for discharge by orthopedic and cardiovascular teams Pencils Washer also evaluated the patient as part of preop evaluation and he started her on lisinopril-hydrochlorothiazide. Patient and daughter informed to check her creatinine, kidney function and electrolytes in one week and they agree Problems and management plan were discussed with the patient and he verbalized understanding and acceptance Patient was found stable and can be discharged home in guarded prognosis however he needs follow-up as an outpatient. Patient was instructed to follow up with PCP Dr. Ramirez within one week and patient agrees Patient also was instructed to follow up with Dr. Velez in 2-3 days and she agrees to call and make appointment tomorrow as today is weakened I called her daughter Dinora Suresh at [phone] and I discussed the case with her, she agrees with Dr. Langley recommendation she will be discharged and go see him in 2-3 days for example this coming Monday and she is going to call and make appointment for her. She told me she has legal issues to take care of it before she undergoes surgery in case something happens to her during surgery that's why she wants to see a manager wind tomorrow with her family before she agrees to do the surgery and follow up with Dr. Langley. She understands that antibiotic alone may not be enough. Also I discussed with her the starting of new blood pressure medication and the need to check her kidney function and electrolytes like potassium with her doctor in one week and she agrees to call and make appointment for this reason. Physical exam Gen: patient is a AAOx3, no distress CVS: S1-S2, RRR, no murmur Lungs: B/L CTA, no wheezing Abdomen: soft, no distention, no tenderness, positive bowel sounds -Extremity: no leg edema or induration. Left foot wound with gangrene of the second toe, no significant surrounding cellulitis Time spent more than 35 minutes Patient Condition at Discharge: Serious Plan - Discharge Summary Discharge Rx Participant: Yes New Discharge Prescriptions: New Docusate [Colace] 100 mg PO BID PRN 3 Days #6 cap PRN Reason: Constipation Cefdinir [Omnicef] 300 mg PO BID 10 Days #20 cap Lisinopril-Hctz 20-12.5 mg [Zestoretic 20-12.5] 1 each PO DAILY #30 tab Continue Omeprazole [PriLOSEC] 20 mg PO DAILY Atorvastatin [Lipitor] 40 mg PO DAILY Cranberry Fruit Extract [Cranberry] 500 mg PO DAILY Collagenase [Santyl Ointment] 1 applic TOPICAL DAILY Cholecalciferol [Vitamin D3 (25 Mcg = 1000 Iu)] 50 mcg PO DAILY Levothyroxine Sodium [Synthroid] 50 mcg PO DAILY Acetaminophen Tab [Tylenol] 500 mg PO Q6H PRN PRN Reason: Pain NIFEdipine [NIFEdipine ER] 30 mg PO DAILY Clotrimazole Cream [Lotrimin Cream] 1 applic TOPICAL BID cream glyBURIDE [Diabeta] 5 mg PO AC-BID Metoprolol Tartrate [Lopressor] 50 mg PO BID sitaGLIPtin [Januvia] 100 mg PO DAILY Doxycycline [Vibramycin] 100 mg PO BID 10 Days #20 capsule Discontinued Cefuroxime Axetil [Ceftin] 500 mg PO BID 10 Days #20 tab Discharge Medication List Omeprazole [PriLOSEC] 20 mg PO DAILY 01/06/20 [History] Atorvastatin [Lipitor] 40 mg PO DAILY 12/02/20 [History] Acetaminophen Tab [Tylenol] 500 mg PO Q6H PRN 07/24/21 [History] Cholecalciferol [Vitamin D3 (25 Mcg = 1000 Iu)] 50 mcg PO DAILY 07/24/21 [History] Collagenase [Santyl Ointment] 1 applic TOPICAL DAILY 07/24/21 [History] Cranberry Fruit Extract [Cranberry] 500 mg PO DAILY 07/24/21 [History] Levothyroxine Sodium [Synthroid] 50 mcg PO DAILY 07/24/21 [History] NIFEdipine [NIFEdipine ER] 30 mg PO DAILY 07/24/21 [History] sitaGLIPtin [Januvia] 100 mg PO DAILY 07/24/21 [History] Clotrimazole Cream [Lotrimin Cream] 1 applic TOPICAL BID cream 07/28/21 [Rx] Metoprolol Tartrate [Lopressor] 50 mg PO BID 08/03/21 [History] glyBURIDE [Diabeta] 5 mg PO AC-BID 08/03/21 [History] Cefdinir [Omnicef] 300 mg PO BID 10 Days #20 cap 08/08/21 [Rx] Docusate [Colace] 100 mg PO BID PRN 3 Days #6 cap 08/08/21 [Rx] Doxycycline [Vibramycin] 100 mg PO BID 10 Days #20 capsule 08/08/21 [Rx] Lisinopril-Hctz 20-12.5 mg [Zestoretic 20-12.5] 1 each PO DAILY #30 tab 08/08/21 [Rx] Follow up Appointment(s)/Referral(s): Keith Akhtar MD [STAFF PHYSICIAN] - 2 Weeks (is support analyst Office closed Please call on Monday to [facility] appointment ) Esvin Ramirez DO [Primary Care Provider] - 1-2 days (We recommend to check blood test with your doctor including your kidney function and potassium level in one week. Office closed Please call [facility] to schedule appointment ) Doug Moreno DO [Doctor of Osteopathic Medicine] - As Needed Heraclio Velez MD [STAFF PHYSICIAN] - 3 Days (Please follow-up with Dr. Velez in 2-3 days, for example he wanted to see you this coming Monday08/11/21 Please call to make an appointment ) Patient Instructions/Handouts: Collagenase (On the skin), Wound Infection (DC), Peripheral Vascular Disease (DC), Gangrene (DC) Activity/Diet/Wound Care/Special Instructions: Heart healthy diet. low carbohydrate 1600 k mari per day Activity is restricted till you see your doctor we recommend to check your glucoses 4 times a day, before each meal and at bedtime, keep results in a log book and bring it to your doctor on your appointment date If your glucose less than 70 or more than 400, then call 911 on come to emergency room Please follow-up with Dr. Langley in 2-3 days, for example he wanted to see you this coming Monday08/11/21 Please call to make an appointment We recommend to check blood test with your doctor including your kidney function and potassium level in one week Discharge Disposition: HOME WITH HOME HEALTH SERVICES
== END 2021-08-08 14:13 | disposition home health service (06) | DRG 300 ==
LOC: EC 15:19 → 4SSUR 18:21
PROVIDERS: ADMIT Hospitalist; ATTEND Hospitalist
DX: E11.52 Type 2 diabetes mellitus with diabetic peripheral angiopathy with gangrene (principal); I69.354 Hemiplegia and hemiparesis following cerebral infarction affecting left non-dominant side; L03.116 Cellulitis of left lower limb; E03.9 Hypothyroidism, unspecified; E11.319 Type 2 diabetes mellitus with unspecified diabetic retinopathy without macular edema; E11.42 Type 2 diabetes mellitus with diabetic polyneuropathy; E11.65 Type 2 diabetes mellitus with hyperglycemia; E78.5 Hyperlipidemia, unspecified; H54.61 Unqualified visual loss, right eye, normal vision left eye; I10 Essential (primary) hypertension; H91.93 Unspecified hearing loss, bilateral; I25.10 Atherosclerotic heart disease of native coronary artery without angina pectoris; E11.628 Type 2 diabetes mellitus with other skin complications; L03.032 Cellulitis of left toe; Z79.4 Long term (current) use of insulin; K59.00 Constipation, unspecified; M19.012 Primary osteoarthritis, left shoulder; I07.1 Rheumatic tricuspid insufficiency; M25.812 Other specified joint disorders, left shoulder; R13.10 Dysphagia, unspecified; M75.32 Calcific tendinitis of left shoulder; M77.9 Enthesopathy, unspecified; R32 Unspecified urinary incontinence; R26.9 Unspecified abnormalities of gait and mobility; Z20.822 Contact with and (suspected) exposure to COVID-19; Z79.84 Long term (current) use of oral hypoglycemic drugs; Z79.890 Hormone replacement therapy; Z90.710 Acquired absence of both cervix and uterus; Z95.1 Presence of aortocoronary bypass graft; Z89.432 Acquired absence of left foot; Z53.29 Procedure and treatment not carried out because of patient's decision for other reasons; Z88.2 Allergy status to sulfonamides; Z88.6 Allergy status to analgesic agent; Z91.041 Radiographic dye allergy status; Z91.013 Allergy to seafood; Z87.440 Personal history of urinary (tract) infections; Z79.899 Other long term (current) drug therapy; Z83.79 Family history of other diseases of the digestive system; Z84.1 Family history of disorders of kidney and ureter; Z80.9 Family history of malignant neoplasm, unspecified; Z90.49 Acquired absence of other specified parts of digestive tract
CPT/HCPCS: 36415; 71045; 80053; 83036; 85025; 85610; 85730; 87635; 93005; 93306; 96374; 96375; 99284

== ENCOUNTER 2021-12-16 21:33 | Inpatient (IN) | payer MEDICARE, OTHER ==
[2021-12-16] MEDS ORDERED: SODIUM CHLORIDE 0.9% 1,000 ML IV STA (21:37)
--- NOTE | 2021-12-16 22:11 | XR ---
EXAMINATION: XR chest 2V DATE AND TIME: 12/16/2021 10:00 PM CLINICAL INDICATION: PHH; Weakness TECHNIQUE: AP upright and lateral views COMPARISON: 08/03/2021 FINDINGS: The hemidiaphragms are both elevated, consistent with relatively low inflation at the moment of x-ray exposure. There are a few scattered ill-defined bandlike added lung opacities, greater on the left, which are nonspecific but could represent subsegmental atelectasis secondary to the low lung inflatio n. Given the right clinical scenario, they could be appeals representative of infiltrates. Radiographically, the former is favored. The pleural spaces are negative. Sternal sutures and mediastinal clips. The cardiac silhouette is mild moderately enlarged. The remain padmini of the mediastinal silhouette is unremarkable. The skeletal structures and soft tissues are negative for acute findings. IMPRESSION: No definite acute radiographic process, as discussed.
--- NOTE | 2021-12-16 22:17 | ED ---
Altered Mental Status HPI - General Chief Complaint: Altered Mental Status Stated Complaint: Altered Mental Status Time Seen by Provider: 12/16/21 21:37 Source: patient, RN notes reviewed, old records reviewed, Caregiver Mode of arrival: EMS Limitations: altered mental status - History of Present Illness Initial Comments: This is a 86-year-old with altered mental status brought in by EMS providers. Patient somnolent sleepy throughout the course of the day. Family states when she gets significant multiple things but often urinary tract infection as the cause. No recent change in medications. A month ago her insulin was increased for diabetes. Patient provides no history is presented by EMS and patient's family member who is caregiver MD Complaint: altered mental status, confusion, decreased responsiveness, weakness -: hour(s) Severity: moderate Consistency of Symptoms: getting worse Context: history of similar presentation Associated Symptoms: weakness, foul smelling urine Treatments Prior to Arrival: IV fluid - Related Data Home Medications Medication Instructions Recorded Confirmed Omeprazole [PriLOSEC] 20 mg PO DAILY 01/06/20 12/16/21 Atorvastatin [Lipitor] 40 mg PO HS 12/02/20 12/16/21 Cholecalciferol [Vitamin D3 (25 50 mcg PO HS 07/24/21 12/16/21 Mcg = 1000 Iu)] Cranberry Fruit Extract [Cranberry] 500 mg PO HS 07/24/21 12/16/21 Levothyroxine Sodium [Synthroid] 50 mcg PO DAILY 07/24/21 12/16/21 NIFEdipine [NIFEdipine ER] 30 mg PO DAILY@1200 07/24/21 12/16/21 Metoprolol Tartrate [Lopressor] 50 mg PO BID 08/03/21 12/16/21 Clopidogrel [Plavix] 75 mg PO DIRECTED 12/16/21 12/16/21 Ibuprofen 600 mg PO Q6H PRN 12/16/21 12/16/21 Insulin Aspart [NovoLOG Flexpen] See Protocol SQ AC-TID 12/16/21 12/16/21 Insulin Glargine,Hum.rec.anlog 10 units SQ HS 12/16/21 12/16/21 [Lantus Solostar Pen] Lisinopril-Hctz 20-12.5 mg 1 tab PO DAILY 12/16/21 12/16/21 [Zestoretic 20-12.5] Allergies Allergy/AdvReac Type Severity Reaction Status Date / Time aspirin Allergy Rash/Hives Verified 12/16/21 23:11 fish derived Allergy Rash/Hives Verified 12/16/21 23:11 Iodinated Contrast Media Allergy Rash/Hives Verified 12/16/21 23:11 [Iodinated Contrast Media - IV Dye] Iodine and Iodide Containing Allergy Rash/Hives Verified 12/16/21 23:11 Produc shellfish derived [Shellfish] Allergy Rash/Hives Verified 12/16/21 23:11 sulfamethoxazole Allergy Itching Verified 12/16/21 23:11 [From Bactrim] trimethoprim [From Bactrim] Allergy Itching Verified 12/16/21 23:11 Review of Systems ROS Statement: Those systems with pertinent positive or pertinent negative responses have been documented in the HPI. ROS Other: All systems not noted in ROS Statement are negative. Past Medical History Past Medical History: Coronary Artery Disease (CAD), Chest Pain / Angina, CVA/TIA, Diabetes Mellitus, Eye Disorder, GERD/Reflux, Hyperlipidemia, Hypertension, Osteoarthritis (OA), Syncope, Thyroid Disorder Additional Past Medical History / Comment(s): NIDDM type II, neuropathy bilateral hands, 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, dysphagia,esophageal strictures with dilation, hiatal hernia, L eye diabetic retinopathy/R eye blindness, bilateral [place], UTIS/urinary leakage, past bilateral feet sores/osteo mylitis, generalized pain, bilateral carpal tunnel syndrome, vertigo, hypothyroid, anemia History of Any Multi-Drug Resistant Organisms: MRSA Date of last positivie culture/infection: 07/24/21 MDRO Source:: MRSA FOOT Past Surgical History: Bladder Surgery, Cholecystectomy, Coronary Bypass/CABG, Heart Catheterization, Hysterectomy Additional Past Surgical History / Comment(s): 2007 CABG 4 vessel, EGDs with dilations, colonoscopies, cataract removal, D&C, bladder suspension, PICC, loop recorder, toe amputation may 2021 Past Anesthesia/Blood Transfusion Reactions: Motion Sickness, Postoperative Nausea & Vomiting (PONV) Past Psychological History: No Psychological Hx Reported Smoking Status: Never smoker Past Alcohol Use History: None Reported Past Drug Use History: None Reported - Past Family History Father Family Medical History: Liver Disease Additional Family Medical History / Comment(s): Father of cirrhosis. He was a drinker. Mother History Unknown: Yes Family Medical History: Unable to Obtain Additional Family Medical History / Comment(s): Pt states she does not know her mother's medical history, but knows she at the age of 62 yrs.. Son(s) Family Medical History: Unable to Obtain, Renal Disease Daughter(s) Family Medical History: Cancer General Exam Limitations: no limitations, altered mental status General appearance: alert, in no apparent distress Head exam: Present: atraumatic, normocephalic, normal inspection Eye exam: Present: normal appearance, PERRL, EOMI. Absent: scleral icterus, conjunctival injection, periorbital swelling ENT exam: Present: normal exam, mucous membranes moist Neck exam: Present: normal inspection. Absent: tenderness, meningismus, lymphadenopathy Respiratory exam: Present: normal lung sounds bilaterally. Absent: respiratory distress, wheezes, rales, rhonchi, stridor Cardiovascular Exam: Present: regular rate, normal rhythm, normal heart sounds. Absent: systolic murmur, diastolic murmur, rubs, gallop, clicks GI/Abdominal exam: Present: soft, normal bowel sounds. Absent: distended, tenderness, guarding, rebound, rigid Extremities exam: Present: normal inspection, full ROM, normal capillary refill. Absent: tenderness, pedal edema, joint swelling, calf tenderness Back exam: Present: normal inspection Neurological exam: Present: alert, oriented X3, CN II-XII intact Psychiatric exam: Present: normal affect, normal mood Skin exam: Present: warm, dry, intact, normal color. Absent: rash Course Vital Signs 12/16/21 21:49 Temperature 97.2 F L Pulse Rate 63 Respiratory 16 Rate Blood Pressure 167/88 O2 Sat by Pulse 93 L Oximetry - Reevaluation(s) Reevaluation #1: 12/17/21 00:45 Attic record is reviewed Reevaluation #2: 12/17/21 00:45 Patient family informed results at length, patient's granddaughter is updated regarding findings Reevaluation #3: 12/17/21 00:45 Patient very somnolent remains altered here in the emergency department - Consultations Consultation #1: Spoke with [facility] who agreed to admit this patient Medical Decision Making - Medical Decision Making 86 female of altered mental status with significant urinary tract infection we will admit this patient for IV antibiotics and close monitoring - Lab Data Result diagrams: 12/16/21 22:37 Lab Results 12/16/21 12/16/21 12/16/21 Range/Units 22:37 22:37 22:37 PT 10.9 (9.0-12.0) sec INR 1.0 (<1.2) APTT 25.4 (22.0-30.0) sec Sodium 134 L (137-145) mmol/L Potassium 4.2 (3.5-5.1) mmol/L Chloride 104 (98-107) mmol/L Carbon Dioxide 26 (22-30) mmol/L Anion Gap 4 mmol/L BUN 25 H (7-17) mg/dL Creatinine 0.94 (0.52-1.04) mg/dL Est GFR (CKD-EPI)AfAm 64 (>60 ml/min/1.73 sqM) Est GFR (CKD-EPI)NonAf 56 (>60 ml/min/1.73 sqM) Glucose 223 H (74-99) mg/dL Plasma Lactic Acid Evelio 1.5 (0.7-2.0) mmol/L Calcium 8.4 (8.4-10.2) mg/dL Phosphorus 3.7 (2.5-4.5) mg/dL Magnesium 1.4 L (1.6-2.3) mg/dL Total Bilirubin 0.3 (0.2-1.3) mg/dL AST 20 (14-36) U/L ALT 15 (4-34) U/L Alkaline Phosphatase 87 (38-126) U/L Ammonia <9 (<30) umol/L Troponin I (0.000-0.034) ng/mL NT-Pro-B Natriuret Pep pg/mL Total Protein 6.5 (6.3-8.2) g/dL Albumin 3.5 (3.5-5.0) g/dL TSH 4.390 (0.465-4.680) mIU/L Urine Color Urine Appearance (Clear) Urine pH (5.0-8.0) Ur Specific [place] (1.001-1.035) Urine Protein (Negative) Urine Glucose (UA) (Negative) Urine Ketones (Negative) Urine Blood (Negative) Urine Nitrite (Negative) Urine Bilirubin (Negative) Urine Urobilinogen (<2.0) mg/dL Ur Leukocyte Esterase (Negative) Urine RBC (0-5) /hpf Urine WBC (0-5) /hpf Urine WBC Clumps (None) /hpf Ur Squamous Epith Cells (0-4) /hpf Ur Transition Epith Cell (0-1) /hpf Urine Bacteria (None) /hpf Urine Mucus (None) /hpf 12/16/21 12/16/21 12/16/21 Range/Units 22:37 22:37 23:43 PT (9.0-12.0) sec INR (<1.2) APTT (22.0-30.0) sec Sodium (137-145) mmol/L Potassium (3.5-5.1) mmol/L Chloride (98-107) mmol/L Carbon Dioxide (22-30) mmol/L Anion Gap mmol/L BUN (7-17) mg/dL Creatinine (0.52-1.04) mg/dL Est GFR (CKD-EPI)AfAm (>60 ml/min/1.73 sqM) Est GFR (CKD-EPI)NonAf (>60 ml/min/1.73 sqM) Glucose (74-99) mg/dL Plasma Lactic Acid Evelio (0.7-2.0) mmol/L Calcium (8.4-10.2) mg/dL Phosphorus (2.5-4.5) mg/dL Magnesium (1.6-2.3) mg/dL Total Bilirubin (0.2-1.3) mg/dL AST (14-36) U/L ALT (4-34) U/L Alkaline Phosphatase (38-126) U/L Ammonia (<30) umol/L Troponin I <0.012 (0.000-0.034) ng/mL NT-Pro-B Natriuret Pep 1470 pg/mL Total Protein (6.3-8.2) g/dL Albumin (3.5-5.0) g/dL TSH (0.465-4.680) mIU/L Urine Color Light Yellow Urine Appearance Cloudy H (Clear) Urine pH 6.0 (5.0-8.0) Ur Specific [place] 1.009 (1.001-1.035) Urine Protein Trace H (Negative) Urine Glucose (UA) 1+ H (Negative) Urine Ketones Negative (Negative) Urine Blood Trace H (Negative) Urine Nitrite Negative (Negative) Urine Bilirubin Negative (Negative) Urine Urobilinogen <2.0 (<2.0) mg/dL Ur Leukocyte Esterase Large H (Negative) Urine RBC 3 (0-5) /hpf Urine WBC 74 H (0-5) /hpf Urine WBC Clumps Rare H (None) /hpf Ur Squamous Epith Cells 14 H (0-4) /hpf Ur Transition Epith Cell 1 (0-1) /hpf Urine Bacteria Occasional H (None) /hpf Urine Mucus Rare H (None) /hpf - Radiology Data Radiology results: report reviewed (X-rays negative for acute disease), image reviewed Disposition Clinical Impression: Dizziness, Headache, Generalized weakness, Altered mental status, UTI (urinary tract infection) Disposition: ADMITTED IP TO THIS HOSP Condition: Fair Is patient prescribed a controlled substance at d/c from ED?: No Referrals: Esvin Ramirez DO [Primary Care Provider] - 1-2 days Time of Disposition: 00:50
[2021-12-16 23:16] LABS: Lactic Acid, Venous 1.5 mmol/L (0.7-2.0)
[2021-12-16 23:17] LABS: Partial Thromboplastin Time 25.4 sec (22.0-30.0); Prothrombin Time 10.9 sec (9.0-12.0)
[2021-12-16 23:18] LABS: Albumin 3.5 g/dL (3.5-5.0); Calcium 8.4 mg/dL (8.4-10.2); Magnesium 1.4 mg/dL (1.6-2.3); Phosphorus 3.7 mg/dL (2.5-4.5); Potassium 4.2 mmol/L (3.5-5.1); Total Bilirubin 0.3 mg/dL (0.2-1.3); Total Protein 6.5 g/dL (6.3-8.2)
[2021-12-17 00:17] LABS: Appearance,Urine Cloudy (Clear); Bacteria,Urine Occasional /hpf; Bilirubin,Urine Negative (Negative); Blood,Urine Trace (Negative); Color,Urine Light Yellow; Glucose,Urine (UA) 1+ (Negative); Ketones,Urine Negative (Negative); Leukocyte Esterase,Urine Large (Negative); Mucus,Urine Rare /hpf; Nitrite,Urine Negative (Negative); Protein,Urine Trace (Negative); RBC,Urine 3 /hpf (0-5); Specific Gravity,Urine 1.009 (1.001-1.035); Squamous Epithelial Cell,Urine 14 /hpf (0-4); Transitional Epi Cells,Urine 1 /hpf (0-1); Urobilinogen,Urine <2.0 mg/dL (<2.0); WBC,Urine 74 /hpf (0-5)
[2021-12-17] MEDS ORDERED: ACETAMINOPHEN TAB 500 MG TAB PO STA (01:27)
[2021-12-17] MEDS ORDERED: NALOXONE 0.4 MG/ML 1 ML VIAL IV PRN (02:57)
[2021-12-17] MEDS ORDERED: ONDANSETRON 4 MG/2 ML VIAL IVP PRN (02:57)
[2021-12-17] MEDS ORDERED: CLOPIDOGREL 75 MG TAB PO SCH (03:45)
[2021-12-17 08:33] LABS: Glucose,Whole Blood 245 mg/dL (75-99)
[2021-12-17] MEDS: LEVOTHYROXINE 50 MCG TAB PO SCH (08:33)
[2021-12-17] MEDS: METOPROLOL TARTRATE 50 MG TAB PO SCH ×2 (08:33→21:08)
[2021-12-17] MEDS: LISINOPRIL-HCTZ 20-12.5 MG 1 EACH TAB PO SCH (08:33)
[2021-12-17] MEDS: PANTOPRAZOLE 40 MG TABLET PO SCH (08:33)
[2021-12-17] MEDS: NIFEdipine XL 30 MG TAB.ER.24 PO SCH (10:26)
[2021-12-17] MEDS ORDERED: SODIUM CHLORIDE 0.9% 1,000 ML IV SCH ×2 (11:00→16:15)
[2021-12-17 11:32] LABS: Basophils % (A) 1 %; Eosinophils # (A) 0.2 k/uL (0-0.7); Eosinophils % (A) 3 %; HGB 10.7 gm/dL (11.4-16.0); Hypochromasia Slight; Lymphocytes % (A) 19 %; MCH 28.2 pg (25.0-35.0); MCHC 31.3 g/dL (31.0-37.0); Mean Platelet Volume 8.6; Monocytes # (A) 0.3 k/uL (0-1.0); Monocytes % (A) 6 %; Neutrophils # (A) 3.8 k/uL (1.3-7.7); Neutrophils % (A) 70 %; Platelet Count 219 k/uL (150-450); RBC 3.78 m/uL (3.80-5.40); RDW 14.3 % (11.5-15.5); WBC 5.4 k/uL (3.8-10.6)
[2021-12-17] MEDS ORDERED: Magnesium Replacement Protocol 1 EACH MISC MISCELLANE PRN (11:49)
[2021-12-17 11:54] LABS: African American GFR (CKD) 75 (>60 ml/min/1.73 sqM); Anion Gap 6 mmol/L; Blood Urea Nitrogen 18 mg/dL (7-17); Calcium 8.6 mg/dL (8.4-10.2); Carbon Dioxide 23 mmol/L (22-30); Chloride 108 mmol/L (98-107); Glucose 279 mg/dL (74-99); Non-African American GFR(CKD) 65 (>60 ml/min/1.73 sqM); Potassium 4.4 mmol/L (3.5-5.1); Sodium 137 mmol/L (137-145)
[2021-12-17] MEDS: INSULIN ASPART (NovoLOG) 100 UNIT/ML VIAL SQ SCH ×3 (12:12→21:09)
[2021-12-17] MEDS: MAGNESIUM SULFATE-D5W PMX 1 GM in DEXTROSE/WATER 1 100ML.BAG IVPB SCH ×3 (12:12→18:19)
[2021-12-17 12:13] LABS: Glucose,Whole Blood 270 mg/dL (75-99)
[2021-12-17] MEDS ORDERED: hydrALAZINE HCL 20 MG/ML 1 ML VIAL IVP PRN (16:11)
[2021-12-17 16:22] LABS: Glucose,Whole Blood 366 mg/dL (75-99)
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
[2021-12-17] MEDS ORDERED: MORPHINE SULFATE 2 MG/ML SYRINGE IVP PRN (19:24)
[2021-12-17 20:56] LABS: Glucose,Whole Blood 301 mg/dL (75-99)
[2021-12-17] MEDS ORDERED: NON FORMULARY DRUG (Cranberry Fruit Extract [Cranberry] 500 MG Tablet) PO SCH (21:00)
[2021-12-17] MEDS ORDERED: INSULIN DETEMIR (LEVEMIR) 100 UNIT/ML SYR SQ SCH (21:00)
[2021-12-17] MEDS: CHOLECALCIFEROL 25 MCG (1000 IU) TABLET PO SCH (21:08)
[2021-12-17] MEDS: ATORVASTATIN 40 MG TAB PO SCH (21:08)
[2021-12-17] MEDS: HEPARIN SODIUM,PORCINE/PF 5,000 UNIT/0.5 ML SYRINGE SQ SCH (21:09)
[2021-12-17] MEDS: INSULIN DETEMIR (LEVEMIR) 100 UNIT/ML SYR SQ SCH (21:10)
--- NOTE | 2021-12-17 21:58 | XR ---
EXAMINATION TYPE: XR chest 1V portable DATE OF EXAM: 12/17/2021 COMPARISON: 12/16/2021 HISTORY: Short of breath TECHNIQUE: Single view FINDINGS: Heart is normal. Lungs are clear of consolidation. There are no hilar masses. There are parviz rnal wires. Costophrenic angles are clear. The pulmonary vascularity is normal. IMPRESSION: No active cardiopulmonary disease. No change.
[2021-12-18 06:45] LABS: Glucose,Whole Blood 188 mg/dL (75-99)
[2021-12-18] MEDS: SODIUM CHLORIDE 0.9% 1,000 ML IV SCH ×2 (07:34→07:35)
[2021-12-18] MEDS: LEVOTHYROXINE 50 MCG TAB PO SCH (08:34)
[2021-12-18] MEDS: LISINOPRIL-HCTZ 20-12.5 MG 1 EACH TAB PO SCH (08:34)
[2021-12-18] MEDS: INSULIN ASPART (NovoLOG) 100 UNIT/ML VIAL SQ SCH ×4 (08:35→22:19)
[2021-12-18] MEDS: METOPROLOL TARTRATE 50 MG TAB PO SCH ×2 (08:35→22:18)
[2021-12-18] MEDS: PANTOPRAZOLE 40 MG TABLET PO SCH (08:35)
[2021-12-18] MEDS: HEPARIN SODIUM,PORCINE/PF 5,000 UNIT/0.5 ML SYRINGE SQ SCH ×2 (08:35→22:20)
[2021-12-18 11:28] LABS: Basophils # (A) 0.03 X 10*3/uL (0.00-0.10); Basophils % (A) 0.4 %; Eosinophils # (A) 0.23 X 10*3/uL (0.04-0.35); Eosinophils % (A) 3.2 %; HCT 32.9 % (37.2-46.3); HGB 10.2 g/dL (12.0-15.0); Immature Grans, Automated 0.3 %; Lymphocytes # (A) 1.24 X 10*3/uL (0.90-5.00); Lymphocytes % (A) 17.4 %; MCH 27.4 pg (27.0-32.0); MCV 88.4 fL (80.0-97.0); Mean Platelet Volume 11.5 fL (9.5-12.2); Monocytes # (A) 0.55 X 10*3/uL (0.20-1.00); Monocytes % (A) 7.7 %; NRBC Per 100 WBC 0 /100 WBCS (0.0-0.0); Neutrophils # (A) 5.05 X 10*3/uL (1.80-7.70); Platelet Count 266 X 10*3/uL (140-440); RBC 3.72 X 10*6/uL (4.10-5.20); RDW 14.5 % (11.5-14.5); WBC 7.12 X 10*3/uL (4.50-10.00)
[2021-12-18 11:32] LABS: Glucose,Whole Blood 214 mg/dL (75-99)
[2021-12-18 11:40] LABS: African American GFR (CKD) 77.9 (60.0-200.0); Anion Gap 7.6 mmol/L (10.00-18.00); BUN/Creat Ratio 18.88 Ratio (12.00-20.00); Blood Urea Nitrogen 15.1 mg/dL (9.0-27.0); Calcium 8.7 mg/dL (8.7-10.3); Carbon Dioxide 23.4 mmol/L (20.0-27.5); Non-African American GFR(CKD) 67.2 (60.0-200.0); Potassium 4.4 mmol/L (3.5-5.5)
[2021-12-18] MEDS: NIFEdipine XL 30 MG TAB.ER.24 PO SCH (12:06)
--- NOTE | 2021-12-18 12:43 | P.CRDCN ---
History of Present Illness Consult date: 12/18/21 Consult reason: congestive heart failure History of present illness: The patient is an 86-year-old female followed in the office with Dr. Arevalo, who presented to the hospital with weakness. After discussion with the patient she states she was brought by her daughter after she was found to be "passed out" in her recliner chair. Cardiology was consulted for elevated BNP of 1470. She is positive for urinary tract infection. DIAGNOSTICS: EKG shows sinus rhythm with left bundle branch block chest x-ray shows no acute cardiopulmonary process WBC 7.12, hemoglobin 10.2, hematocrit 32.9, platelet 266, sodium 139, potassium 4.4, BUN 15, creatinine 0.8, magnesium 2.0, troponin negative 2, BNP 1470, TSH 4.3 echocardiogram in July 2021 shows EF is 60-65% with moderate mitral annular calcifications PAST MEDICAL HISTORY: coronary artery disease status post CABG, diabetes, hypertension, dyslipidemia, PND, CVA REVIEW OF SYSTEMS: No fever or chills. No cough or expectoration. No diaphoresis. Patient denies headache, dizziness, blurred vision, double vision. Patient denies any stomach discomfort. No nausea, vomiting. No hematochezia. No hematemesis. Denies any black stools or blood in his stools. Denies dysuria or hematuria. No muscle weakness or numbness. denies chest pain or chest pressure. No dyspnea PHYSICAL EXAMINATION: This is a 86-year-old female in no apparent distress at the time of my examination. HEENT: Head is atraumatic, normocephalic. Severe cataract in her right eye. Conjunctivae are clear. Mucous membranes of the mouth are moist. Neck is supple. There is no jugular venous distention. No carotid bruit is heard. CHEST EXAMINATION: Lungs are clear to auscultation. No chest wall tenderness is noted on palpation or with deep breathing. HEART EXAMINATION: Heart regular rate and rhythm. S1, S2 heard. Systolic murmur. No gallops or rub. ABDOMEN: Soft, nontender. Bowel sounds are heard. No organomegaly noted. EXTREMITIES: Left above-knee amputation. No right lower extremity edema. NEUROLOGIC EXAMINATION: Patient is awake, alert and oriented x3. FINAL ASSESSMENT AND PLAN: Congestive heart failure with preserved ejection fraction Hypertension History of coronary artery disease History of PAD, right AKA Uncontrolled diabetes mellitus History TIA PLAN: Resume home medication regimen No need for repeat echocardiogram at this time as she had one completed in July of this year Follow up outpatient with Dr. Arevalo I am dictating on behalf of Dr Keith Akhtar's history/physical and assessment/ plan. 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, dysphagia,esophageal strictures with dilation, hiatal hernia, L eye diabetic retinopathy/R eye blindness, bilateral [place], UTIS/urinary leakage, past bilateral feet sores/oste omylitis, generalized pain, bilateral carpal tunnel syndrome, vertigo, hypothyroid, anemia History of Any Multi-Drug Resistant Organisms: MRSA Date of last positivie culture/infection: 07/24/21 MDRO Source:: MRSA FOOT Past Surgical History: Bladder Surgery, Cholecystectomy, Coronary Bypass/CABG, Heart Catheterization, Hysterectomy Additional Past Surgical History / Comment(s): 2007 CABG 4 vessel, EGDs with dilations, colonoscopies, cataract removal, D&C, bladder suspension, PICC, loop recorder, toe amputation may 2021 Past Anesthesia/Blood Transfusion Reactions: Motion Sickness, Postoperative Nausea & Vomiting (PONV) Past Psychological History: No Psychological Hx Reported Smoking Status: Never smoker Past Alcohol Use History: None Reported Past Drug Use History: None Reported - Past Family History Father Family Medical History: Liver Disease Additional Family Medical History / Comment(s): Father of cirrhosis. He was a drinker. Mother History Unknown: Yes Family Medical History: Unable to Obtain Additional Family Medical History / Comment(s): Pt states she does not know her mother's medical history, but knows she at the age of 62 yrs.. Son(s) Family Medical History: Unable to Obtain, Renal Disease Daughter(s) Family Medical History: Cancer Medications and Allergies Home Medications Medication Instructions Recorded Confirmed Type Omeprazole [PriLOSEC] 20 mg PO DAILY 01/06/20 12/16/21 History Atorvastatin [Lipitor] 40 mg PO HS 12/02/20 12/16/21 History Cholecalciferol [Vitamin D3 (25 50 mcg PO HS 07/24/21 12/16/21 History Mcg = 1000 Iu)] Cranberry Fruit Extract [Cranberry] 500 mg PO HS 07/24/21 12/16/21 History Levothyroxine Sodium [Synthroid] 50 mcg PO DAILY 07/24/21 12/16/21 History NIFEdipine [NIFEdipine ER] 30 mg PO DAILY@1200 07/24/21 12/16/21 History Metoprolol Tartrate [Lopressor] 50 mg PO BID 08/03/21 12/16/21 History Ibuprofen 600 mg PO Q6H PRN 12/16/21 12/16/21 History Insulin Aspart [NovoLOG Flexpen] See Protocol SQ AC-TID 12/16/21 12/16/21 History Insulin Glargine,Hum.rec.anlog 10 units SQ HS 12/16/21 12/16/21 History [Lantus Solostar Pen] Lisinopril-Hctz 20-12.5 mg 1 tab PO DAILY 12/16/21 12/16/21 History [Zestoretic 20-12.5] Allergies Allergy/AdvReac Type Severity Reaction Status Date / Time aspirin Allergy Rash/Hives Verified 12/16/21 23:11 fish derived Allergy Rash/Hives Verified 12/16/21 23:11 Iodinated Contrast Media Allergy Rash/Hives Verified 12/16/21 23:11 [Iodinated Contrast Media - IV Dye] Iodine and Iodide Containing Allergy Rash/Hives Verified 12/16/21 23:11 Produc shellfish derived [Shellfish] Allergy Rash/Hives Verified 12/16/21 23:11 sulfamethoxazole Allergy Itching Verified 12/16/21 23:11 [From Bactrim] trimethoprim [From Bactrim] Allergy Itching Verified 12/16/21 23:11 Physical Exam Vitals: Vital Signs Temp Pulse Resp BP Pulse Ox 12/18/21 08:05 98.1 F 65 18 148/78 97 12/18/21 03:28 97.9 F 63 15 143/57 97 12/17/21 20:00 70 17 12/17/21 19:18 98.8 F 70 17 146/67 98 12/17/21 19:05 70 18 132/71 98 12/17/21 16:00 98.4 F 50 L 19 178/49 98 06/10/22 14:00 97.3 F L 54 L 15 191/67 99 12/17/21 12:40 96.7 F L 55 L 16 167/73 96 Intake and Output 12/17/21 12/18/21 12/18/21 22:59 06:59 14:59 Output Total 550 Balance -550 Output: Urine 550 Other: Voiding Method External Catheter External Catheter # Voids 2 # Bowel Movements 1 Weight 84.822 kg Results 12/18/21 06:57 12/18/21 06:57 Cardiac Enzymes 12/17/21 12/17/21 Range/Units 19:45 22:06 Troponin I <0.012 <0.012 (0.000-0.034) ng/mL CBC 12/17/21 Range/Units 10:48 WBC 5.4 (3.8-10.6) k/uL RBC 3.78 L (3.80-5.40) m/uL Hgb 10.7 L (11.4-16.0) gm/dL Hct 34.0 (34.0-46.0) % Plt Count 219 (150-450) k/uL Comprehensive Metabolic Panel 12/17/21 Range/Units 10:48 Sodium 137 (137-145) mmol/L Potassium 4.4 (3.5-5.1) mmol/L Chloride 108 H (98-107) mmol/L Carbon Dioxide 23 (22-30) mmol/L BUN 18 H (7-17) mg/dL Creatinine 0.83 (0.52-1.04) mg/dL Glucose 279 H (74-99) mg/dL Calcium 8.6 (8.4-10.2) mg/dL Current Medications Generic Name Dose Route Start Last Admin Trade Name Freq PRN Reason Stop Dose Admin Atorvastatin Calcium 40 mg 12/17/21 21:00 12/17/21 21:08 Atorvastatin 40 Mg Tab PO 40 mg HS LARRY Administration Cholecalciferol 50 mcg 12/17/21 21:00 12/17/21 21:08 Cholecalciferol 25 Mcg (1000 Iu) Tablet PO 50 mcg HS LARRY Administration Lisinopril/HCTZ 1 each 12/17/21 09:00 12/18/21 08:34 Lisinopril-Hctz 20-12.5 Mg 1 Each Tab PO 1 each DAILY LARRY Administration Heparin Sodium (Porcine) 5,000 unit 12/17/21 21:00 12/18/21 08:35 Heparin Sodium,Porcine/Pf 5,000 Unit/0.5 Ml Syringe SQ 5,000 unit Q12HR LARRY Administration Hydralazine HCl 10 mg 12/17/21 16:11 12/17/21 18:18 Hydralazine Hcl 20 Mg/Ml 1 Ml Vial IVP 10 mg Q6HR PRN Administration Blood Pressure - High Ceftriaxone Sodium 1 gm/ 50 mls @ 100 mls/hr 12/17/21 09:00 12/18/21 08:35 Sodium Chloride IVPB 100 mls/hr Q12HR LARRY Administration Protocol Ibuprofen 600 mg 12/17/21 03:45 Ibuprofen 600 Mg Tab PO Q6H PRN Pain Insulin Aspart 0 unit 12/17/21 12:30 12/18/21 08:35 Insulin Aspart (Novolog) 100 Unit/Ml Vial SQ 2 unit ACHS LARRY Administration Protocol Insulin Detemir 12 unit 12/17/21 21:00 12/17/21 21:10 Insulin Detemir (Levemir) 100 Unit/Ml Syr SQ 12 unit HS LARRY Administration Levothyroxine Sodium 50 mcg 12/17/21 06:30 12/18/21 08:34 Levothyroxine 50 Mcg Tab PO 50 mcg 0630 LARRY Administration Metoprolol Tartrate 50 mg 12/17/21 09:00 12/18/21 08:35 Metoprolol Tartrate 50 Mg Tab PO 50 mg BID LARRY Administration Miscellaneous Information 1 each 12/17/21 11:49 Magnesium Replacement Protocol 1 Each Misc MISCELLANE DAILY PRN Per Protocol Protocol Morphine Sulfate 2 mg 12/17/21 19:24 12/17/21 19:35 Morphine Sulfate 2 Mg/Ml Syringe IVP 2 mg Q4HR PRN Administration Pain/Discomfort Naloxone HCl 0.2 mg 12/17/21 02:57 Naloxone 0.4 Mg/Ml 1 Ml Vial IV Q2M PRN Opioid Reversal Nifedipine 30 mg 12/17/21 12:00 12/17/21 10:26 Nifedipine Xl 30 Mg Tab.Er.24 PO 30 mg DAILY@1200 LARRY Administration Ondansetron HCl 4 mg 12/17/21 02:57 Ondansetron 4 Mg/2 Ml Vial IVP Q8HR PRN Nausea And Vomiting Pantoprazole Sodium 40 mg 12/17/21 09:00 12/18/21 08:35 Pantoprazole 40 Mg Tablet PO 40 mg DAILY LARRY Administration Intake and Output 12/17/21 12/18/21 12/18/21 22:59 06:59 14:59 Output Total 550 Balance -550 Output: Urine 550 Other: Voiding Method External Catheter External Catheter # Voids 2 # Bowel Movements 1 Weight 84.822 kg 12/17/21 10:48 12/17/21 10:48
[2021-12-18] MEDS ORDERED: hydrALAZINE HCL 50 MG TAB PO PRN (13:38)
[2021-12-18] MEDS: IBUPROFEN 600 MG TAB PO PRN ×2 (15:27→22:18)
[2021-12-18 16:32] LABS: Glucose,Whole Blood 246 mg/dL (75-99)
[2021-12-18 21:38] LABS: Glucose,Whole Blood 190 mg/dL (75-99)
[2021-12-18] MEDS: CHOLECALCIFEROL 25 MCG (1000 IU) TABLET PO SCH (22:18)
[2021-12-18] MEDS: ATORVASTATIN 40 MG TAB PO SCH (22:18)
[2021-12-18] MEDS: INSULIN DETEMIR (LEVEMIR) 100 UNIT/ML SYR SQ SCH (22:19)
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
[2021-12-19] MEDS: LEVOTHYROXINE 50 MCG TAB PO SCH (05:28)
[2021-12-19 06:59] LABS: Glucose,Whole Blood 136 mg/dL (75-99)
[2021-12-19] MEDS: HEPARIN SODIUM,PORCINE/PF 5,000 UNIT/0.5 ML SYRINGE SQ SCH ×2 (07:58→20:47)
[2021-12-19] MEDS: METOPROLOL TARTRATE 50 MG TAB PO SCH ×2 (07:58→20:47)
[2021-12-19] MEDS: LISINOPRIL-HCTZ 20-12.5 MG 1 EACH TAB PO SCH (07:58)
[2021-12-19] MEDS: INSULIN ASPART (NovoLOG) 100 UNIT/ML VIAL SQ SCH ×4 (07:58→21:53)
[2021-12-19] MEDS: PANTOPRAZOLE 40 MG TABLET PO SCH (07:58)
[2021-12-19] MEDS ORDERED: SODIUM CHLORIDE 0.65% NASAL SPRAY 44 ML BTL NASAL PRN (10:55)
[2021-12-19 11:28] LABS: Glucose,Whole Blood 193 mg/dL (75-99)
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
[2021-12-19] MEDS: NIFEdipine XL 30 MG TAB.ER.24 PO SCH (16:23)
[2021-12-19 16:35] LABS: Glucose,Whole Blood 324 mg/dL (75-99)
[2021-12-19 20:16] VITALS: PULSE 61
[2021-12-19] MEDS: CIPROFLOXACIN HCL 500 MG TAB PO SCH (20:47)
[2021-12-19] MEDS: CHOLECALCIFEROL 25 MCG (1000 IU) TABLET PO SCH (20:47)
[2021-12-19] MEDS: INSULIN DETEMIR (LEVEMIR) 100 UNIT/ML SYR SQ SCH (20:47)
[2021-12-19] MEDS: ATORVASTATIN 40 MG TAB PO SCH (20:47)
[2021-12-19 21:53] LABS: Glucose,Whole Blood 285 mg/dL (75-99)
[2021-12-20] MEDS: LEVOTHYROXINE 50 MCG TAB PO SCH (05:36)
[2021-12-20] MEDS: LISINOPRIL-HCTZ 20-12.5 MG 1 EACH TAB PO SCH (06:36)
[2021-12-20] MEDS: PANTOPRAZOLE 40 MG TABLET PO SCH (06:37)
[2021-12-20] MEDS: IBUPROFEN 600 MG TAB PO PRN (06:37)
[2021-12-20] MEDS: CIPROFLOXACIN HCL 500 MG TAB PO SCH (06:37)
[2021-12-20] MEDS: METOPROLOL TARTRATE 50 MG TAB PO SCH (06:38)
[2021-12-20] MEDS: HEPARIN SODIUM,PORCINE/PF 5,000 UNIT/0.5 ML SYRINGE SQ SCH (06:38)
[2021-12-20 06:47] LABS: Glucose,Whole Blood 221 mg/dL (75-99)
[2021-12-20] MEDS: INSULIN ASPART (NovoLOG) 100 UNIT/ML VIAL SQ SCH ×2 (07:02→12:10)
[2021-12-20 07:25] VITALS: RESP 17; TEMP 97.4
--- NOTE | 2021-12-20 09:40 | FL ---
ESOPHOGRAM. HISTORY: Dysphagia Esophagram was performed per the single contrast technique. Examination is limited given the overall patient condition. Esophageal peristalsis and motility appear to be within normal limits. There is no evidence for filling defect, mass or diverticulum. No hiatal hernia seen. IMPRESSION: Unremarkable study.
[2021-12-20 09:52] VITALS: BP 148/61
[2021-12-20] MEDS: NIFEdipine XL 30 MG TAB.ER.24 PO SCH (11:14)
[2021-12-20 11:39] LABS: Glucose,Whole Blood 307 mg/dL (75-99)
--- NOTE | 2021-12-21 18:31 | P.DS ---
Providers Date of admission: 12/17/21 02:57 Expected date of discharge: 12/20/21 Attending physician: Elan Nagel Consults: 12/17/21 19:28 Consult Physician Urgent Consulting Provider: Chucho Nath Consult Reason/Comments: Chest pain Do you want consulting provider notified?: Yes Primary care physician: [facility] Course: History of presenting complaint: This is a pleasant 86-year-old patient who follows with Dr. Ramirez. 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 Lives alone. Has 24/ care at home. Left AKA. Patient presented with altered mental status. Found to have UTI with cystitis with culture positive for klebsiella pneumoniae and Staphylococcus epidermidis. Responded well to antibiotics. Had a barium swallow that was unremarkable. December 20: Patient barium swallow came back with no penetration. Patient will be discharged to complete a course of antibiotics for UTI. Patient back to baseline. Discussed piano case maker. Support at home. Discussion and discharge planning more than 35 minutes Past medical history to include: CAD, left-sided weakness from prior stroke, diabetes, blind in the right eye, hypertension, hyperlipidemia, hypothyroid, chronic pain, osteoarthritis, peripheral neuropathy, esophageal stricture, urinary incontinence, uses a walker, PAD Social history: Does not smoke or drink alcohol. . Does use a walker Family history: Cancer. Father of cirrhosis, from alcoholism Physical examination: VITAL SIGNS: He 7.4, 61, 17, 140/61, 96% room air GENERAL: Sitting up in a chair, awake, comfortable EYES: Blind in the right eye. HEENT: External appearance of nose and ears normal, oral cavity grossly normal. NECK: JVD not raised; masses not palpable. HEART: First and second heart sounds are normal; no edema. LUNGS: Respiratory rate normal; clear to auscultation. ABDOMEN: Soft, nontender, liver spleen not palpable, no masses palpable. PSYCH: Alert and oriented x3; mood and affect normal. MUSCULOSKELETAL:No Clubbing/cyanosis;muscles-grossly intact. Left above-knee amputation. NEUROLOGICAL: Cranial nerves grossly intact; no facial asymmetry, power and sensation grossly intact. Chronic left-sided weakness. Blind in the right eye. INVESTIGATIONS, reviewed in the clinical context Urine culture: Klebsiella pneumoniae. Staphylococcus epidermidis. Barium swallow: No evidence of aspiration. Assessment and plan: -Acute toxic metabolic encephalopathy from UTI cystitis.: Improved -Acute UTI with cystitis from Pneumonia and Staphylococcus Epidermidis. Complete Keflex 500 Mg by Mouth Every 8 and Nitrofurantoin 100 Mg by Mouth Twice a Day for 3 Days --Essential hypertension: Better controlled Procardia XL 30 mg a day. Lopressor 50 mg by mouth twice a day. lisinopril hydrochlorothiazide 20/12.5 one tablet daily -chronic right shoulder dysfunction -Coronary artery disease, prior history of bypass 2007 Lopressor, -Diabetes mellitus type 2 on oral hypoglycemic, uncontrolled with hyperglycemia from infection Accu-Cheks with sliding scale Accu-Cheks and sliding scale Levemir 10units daily at bedtime -Blind in the right eye, chronic -Left above-knee amputation -Hyperlipidemia Lipitor 40 mg daily at bedtime -Hypothyroidism 50 g a day Synthroid -Primary osteoarthritis Continue pain medications -Diabetic peripheral neuropathy -Chronic urinary incontinence Depend -Chronic gait dysfunction uses a walker Disposition: Home Plan - Discharge Summary Discharge Rx Participant: No New Discharge Prescriptions: New Sodium Chloride 0.65% Nasal [Deep Sea (Saline)] 2 spray NASAL QID PRN #1 ml PRN Reason: Dry Nasal Passages Cephalexin [Keflex] 500 mg PO Q8HR #9 cap Nitrofurantoin Macrocrystal [Nitrofurantoin] 100 mg PO BID #6 capsule Continue Omeprazole [PriLOSEC] 20 mg PO DAILY Atorvastatin [Lipitor] 40 mg PO HS Cranberry Fruit Extract [Cranberry] 500 mg PO HS Cholecalciferol [Vitamin D3 (25 Mcg = 1000 Iu)] 50 mcg PO HS Levothyroxine Sodium [Synthroid] 50 mcg PO DAILY NIFEdipine [NIFEdipine ER] 30 mg PO DAILY@1200 Metoprolol Tartrate [Lopressor] 50 mg PO BID Lisinopril-Hctz 20-12.5 mg [Zestoretic 20-12.5] 1 tab PO DAILY Ibuprofen 600 mg PO Q6H PRN PRN Reason: Pain Insulin Glargine,Hum.rec.anlog [Lantus Solostar Pen] 10 units SQ HS Insulin Aspart [NovoLOG Flexpen] See Protocol SQ AC-TID Discharge Medication List Omeprazole [PriLOSEC] 20 mg PO DAILY 01/06/20 [History] Atorvastatin [Lipitor] 40 mg PO HS 12/02/20 [History] Cholecalciferol [Vitamin D3 (25 Mcg = 1000 Iu)] 50 mcg PO HS 07/24/21 [History] Cranberry Fruit Extract [Cranberry] 500 mg PO HS 07/24/21 [History] Levothyroxine Sodium [Synthroid] 50 mcg PO DAILY 07/24/21 [History] NIFEdipine [NIFEdipine ER] 30 mg PO DAILY@1200 07/24/21 [History] Metoprolol Tartrate [Lopressor] 50 mg PO BID 08/03/21 [History] Ibuprofen 600 mg PO Q6H PRN 12/16/21 [History] Insulin Aspart [NovoLOG Flexpen] See Protocol SQ AC-TID 12/16/21 [History] Insulin Glargine,Hum.rec.anlog [Lantus Solostar Pen] 10 units SQ HS 12/16/21 [History] Lisinopril-Hctz 20-12.5 mg [Zestoretic 20-12.5] 1 tab PO DAILY 12/16/21 [History] Cephalexin [Keflex] 500 mg PO Q8HR #9 cap 12/20/21 [Rx] Nitrofurantoin Macrocrystal [Nitrofurantoin] 100 mg PO BID #6 capsule 12/20/21 [Rx] Sodium Chloride 0.65% Nasal [Deep Sea (Saline)] 2 spray NASAL QID PRN #1 ml 12/20/21 [Rx] Follow up Appointment(s)/Referral(s): Esvin Ramirez DO [Primary Care Provider] - 1-2 days (office will call patient will date and time of appointment ) [facility] - As Needed Activity/Diet/Wound Care/Special Instructions: ground diet Discharge Disposition: HOME WITH HOME HEALTH SERVICES
== END 2021-12-20 13:43 | disposition home health service (06) | DRG 689 ==
LOC: EC 21:33 → 4SSUR 12-17 02:57
PROVIDERS: ADMIT Hospitalist; ATTEND Hospitalist
DX: N30.00 Acute cystitis without hematuria (principal); G92.8 Other toxic encephalopathy; I69.354 Hemiplegia and hemiparesis following cerebral infarction affecting left non-dominant side; I50.32 Chronic diastolic (congestive) heart failure; E83.42 Hypomagnesemia; S90.31XA Contusion of right foot, initial encounter; S81.801A Unspecified open wound, right lower leg, initial encounter; E11.42 Type 2 diabetes mellitus with diabetic polyneuropathy; E11.65 Type 2 diabetes mellitus with hyperglycemia; R13.10 Dysphagia, unspecified; I25.10 Atherosclerotic heart disease of native coronary artery without angina pectoris; D64.9 Anemia, unspecified; E03.9 Hypothyroidism, unspecified; E11.319 Type 2 diabetes mellitus with unspecified diabetic retinopathy without macular edema; I07.1 Rheumatic tricuspid insufficiency; E11.36 Type 2 diabetes mellitus with diabetic cataract; I11.0 Hypertensive heart disease with heart failure; E11.51 Type 2 diabetes mellitus with diabetic peripheral angiopathy without gangrene; Z89.612 Acquired absence of left leg above knee; T87.89 Other complications of amputation stump; B96.1 Klebsiella pneumoniae [K. pneumoniae] as the cause of diseases classified elsewhere; B95.7 Other staphylococcus as the cause of diseases classified elsewhere; R22.42 Localized swelling, mass and lump, left lower limb; M25.811 Other specified joint disorders, right shoulder; K21.9 Gastro-esophageal reflux disease without esophagitis; E78.5 Hyperlipidemia, unspecified; K44.9 Diaphragmatic hernia without obstruction or gangrene; R32 Unspecified urinary incontinence; R26.89 Other abnormalities of gait and mobility; H54.61 Unqualified visual loss, right eye, normal vision left eye; H91.93 Unspecified hearing loss, bilateral; R52 Pain, unspecified; G56.03 Carpal tunnel syndrome, bilateral upper limbs; F41.9 Anxiety disorder, unspecified; I44.7 Left bundle-branch block, unspecified; M19.91 Primary osteoarthritis, unspecified site; Z79.4 Long term (current) use of insulin; Z79.84 Long term (current) use of oral hypoglycemic drugs; Z87.19 Personal history of other diseases of the digestive system; Z95.1 Presence of aortocoronary bypass graft; Z87.440 Personal history of urinary (tract) infections; Z86.14 Personal history of Methicillin resistant Staphylococcus aureus infection; Z87.2 Personal history of diseases of the skin and subcutaneous tissue; Z86.79 Personal history of other diseases of the circulatory system; Z87.39 Personal history of other diseases of the musculoskeletal system and connective tissue; Z98.890 Other specified postprocedural states; Z90.49 Acquired absence of other specified parts of digestive tract; Z90.710 Acquired absence of both cervix and uterus; Z98.49 Cataract extraction status, unspecified eye; Z89.429 Acquired absence of other toe(s), unspecified side; Z87.828 Personal history of other (healed) physical injury and trauma; Z79.890 Hormone replacement therapy; Z79.899 Other long term (current) drug therapy; Z88.2 Allergy status to sulfonamides; Z88.6 Allergy status to analgesic agent; Z88.1 Allergy status to other antibiotic agents; Z91.041 Radiographic dye allergy status; Z91.013 Allergy to seafood; Z80.9 Family history of malignant neoplasm, unspecified; Z84.1 Family history of disorders of kidney and ureter; Z83.79 Family history of other diseases of the digestive system
CPT/HCPCS: 36415; 71045; 71046; 74220; 80048; 80053; 81001; 82140; 83036; 83605; 83735; 83880; 84100; 84443; 84484; 85025; 85610; 85730; 87070; 87075; 87077; 87086; 87186; 87205; 93005; 96361; 96365; 96366; 96367; 99285

== ENCOUNTER 2022-04-29 07:51 | Inpatient (IN) | payer MEDICARE, OTHER ==
--- NOTE | 2022-04-29 08:29 | ED ---
Fall HPI - General Chief Complaint: Fall Stated Complaint: Fall Time Seen by Provider: 04/29/22 08:00 Source: patient, family, EMS Mode of arrival: EMS - History of Present Illness Initial Comments: 87-year-old female who apparently fell getting out of bed complains of left for had pain left neck pain also complains of left wrist pain and right knee and right ankle pain. She is a [id number] amputation on the left lower extremity. No loss of consciousness no fevers chills nausea vomiting sweats. MD Complaint: fall - Related Data Home Medications Medication Instructions Recorded Confirmed Omeprazole [PriLOSEC] 20 mg PO DAILY 01/06/20 12/16/21 Atorvastatin [Lipitor] 40 mg PO HS 12/02/20 12/16/21 Cholecalciferol [Vitamin D3 (25 50 mcg PO HS 07/24/21 12/16/21 Mcg = 1000 Iu)] Cranberry Fruit Extract [Cranberry] 500 mg PO HS 07/24/21 12/16/21 Levothyroxine Sodium [Synthroid] 50 mcg PO DAILY 07/24/21 12/16/21 NIFEdipine [Adalat CC] 30 mg PO DAILY@1200 07/24/21 12/16/21 Metoprolol Tartrate [Lopressor] 50 mg PO BID 08/03/21 12/16/21 Ibuprofen 600 mg PO Q6H PRN 12/16/21 12/16/21 Insulin Aspart [NovoLOG Flexpen] See Protocol SQ AC-TID 12/16/21 12/16/21 Insulin Glargine,Hum.rec.anlog 10 units SQ HS 12/16/21 12/16/21 [Lantus Solostar Pen] Lisinopril-Hctz 20-12.5 mg 1 tab PO DAILY 12/16/21 12/16/21 [Zestoretic 20-12.5] Previous Rx's Medication Instructions Recorded Cephalexin [Keflex] 500 mg PO Q8HR #9 cap 12/20/21 Sodium Chloride 0.65% Nasal [Deep 2 spray NASAL QID PRN #1 ml 12/20/21 Sea (Saline)] nitrofurantoin macrocrystaL 100 mg PO BID #6 capsule 12/20/21 [Nitrofurantoin] Allergies Allergy/AdvReac Type Severity Reaction Status Date / Time aspirin Allergy Rash/Hives Verified 04/29/22 08:06 fish derived Allergy Rash/Hives Verified 04/29/22 08:06 Iodinated Contrast Media Allergy Rash/Hives Verified 04/29/22 08:06 [Iodinated Contrast Media - IV Dye] Iodine and Iodide Containing Allergy Rash/Hives Verified 04/29/22 08:06 Produc shellfish derived [Shellfish] Allergy Rash/Hives Verified 04/29/22 08:06 sulfamethoxazole Allergy Itching Verified 04/29/22 08:06 [From Bactrim] trimethoprim [From Bactrim] Allergy Itching Verified 04/29/22 08:06 Review of Systems ROS Statement: Those systems with pertinent positive or pertinent negative responses have been documented in the HPI. ROS Other: All systems not noted in ROS Statement are negative. 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, dysphagia,esophageal strictures with dilation, hiatal hernia, L eye diabetic retinopathy/R eye blindness, bilateral NIGHTMUTE, UTIS/urinary leakage, past bilateral feet sores/osteomylitis, generalized pain, bilateral carpal tunnel syndrome, vertigo, hypothyroid, anemia History of Any Multi-Drug Resistant Organisms: MRSA Date of last positivie culture/infection: 07/24/21 MDRO Source:: MRSA FOOT Past Surgical History: Bladder Surgery, Cholecystectomy, Coronary Bypass/CABG, Heart Catheterization, Hysterectomy Additional Past Surgical History / Comment(s): 2007 CABG 4 vessel, EGDs with dilations, colonoscopies, cataract removal, D&C, bladder suspension, PICC, loop recorder, toe amputation may 2021, left BKA Past Anesthesia/Blood Transfusion Reactions: Motion Sickness, Postoperative Nausea & Vomiting (PONV) Past Psychological History: No Psychological Hx Reported Smoking Status: Never smoker Past Alcohol Use History: None Reported Past Drug Use History: None Reported - Past Family History Father Family Medical History: Liver Disease Additional Family Medical History / Comment(s): Father of cirrhosis. He was a drinker. Mother History Unknown: Yes Family Medical History: Unable to Obtain Additional Family Medical History / Comment(s): Pt states she does not know her mother's medical history, but knows she at the age of 62 yrs.. Son(s) Family Medical History: Unable to Obtain, Renal Disease Daughter(s) Family Medical History: Cancer General Exam - General Exam Comments Initial Comments: This a well-developed well-nourished awake alert oriented 5 female with a [place] Coma Scale of 15 she did arrive by ambulance with a cervical collar in place Limitations: altered mental status General appearance: alert, anxious Head exam: Present: normocephalic, other (Contusion with ecchymosis seen over the left forehead no step-off no crepitation superficial abrasion seen no wound requiring repair. No tenderness over the occipital scalp) Eye exam: Present: normal appearance, PERRL, EOMI. Absent: scleral icterus, conjunctival injection, periorbital swelling ENT exam: Present: mucous membranes dry Neck exam: Present: normal inspection, other (Cervical collar in place mild tenderness palpation of the lateral neck musculature no definitive spinous process tenderness) Respiratory exam: Present: normal lung sounds bilaterally. Absent: respiratory distress, wheezes, rales, rhonchi, stridor Cardiovascular Exam: Present: regular rate, normal rhythm, normal heart sounds. Absent: systolic murmur, diastolic murmur, rubs, gallop, clicks GI/Abdominal exam: Present: soft, normal bowel sounds. Absent: distended, ten derness, guarding, rebound, rigid Rectal exam: Present: deferred Extremities exam: Present: full ROM, tenderness, other (Superficial abrasion seen over the lateral right wrist with some tenderness no deformity seen no sensorimotor deficits. Also tenderness over the right knee and right ankle are is a healing wound over the medial aspect of the right ankle. [id number] amputation on the left) Back exam: Present: normal inspection Neurological exam: Present: alert, oriented X3, CN II-XII intact Psychiatric exam: Present: normal affect, normal mood Skin exam: Present: warm, normal color. Absent: intact Course Vital Signs 04/29/22 04/29/22 08:00 09:29 Temperature 98.2 F Pulse Rate 66 63 Respiratory 17 15 Rate Blood Pressure 243/103 227/85 O2 Sat by Pulse 96 100 Oximetry Medical Decision Making - Medical Decision Making I did discuss findings with patient family members as well as Dr. Nagel patient will be admitted she does demonstrate evidence of UTI, dehydration, hypomagnesemia, contusions to the forehead and left wrist strain with abrasion - Lab Data Result diagrams: 04/29/22 08:26 04/29/22 08:26 Lab Results 04/29/22 04/29/22 04/29/22 Range/Units 08:26 08:26 08:26 WBC 7.0 (3.8-10.6) k/uL RBC 4.25 (3.80-5.40) m/uL Hgb 12.1 (11.4-16.0) gm/dL Hct 35.7 (34.0-46.0) % MCV 83.9 (80.0-100.0) fL MCH 28.6 (25.0-35.0) pg MCHC 34.0 (31.0-37.0) g/dL RDW 14.5 (11.5-15.5) % Plt Count 218 (150-450) k/uL MPV 8.4 Neutrophils % 74 % Lymphocytes % 16 % Monocytes % 6 % Eosinophils % 2 % Basophils % 0 % Neutrophils # 5.2 (1.3-7.7) k/uL Lymphocytes # 1.1 (1.0-4.8) k/uL Monocytes # 0.4 (0-1.0) k/uL Eosinophils # 0.1 (0-0.7) k/uL Basophils # 0.0 (0-0.2) k/uL Sodium 139 (137-145) mmol/L Potassium 4.0 (3.5-5.1) mmol/L Chloride 103 (98-107) mmol/L Carbon Dioxide 24 (22-30) mmol/L Anion Gap 12 mmol/L BUN 23 H (7-17) mg/dL Creatinine 0.77 (0.52-1.04) mg/dL Est GFR (CKD-EPI)AfAm 81 (>60 ml/min/1.73 sqM) Est GFR (CKD-EPI)NonAf 70 (>60 ml/min/1.73 sqM) Glucose 198 H (74-99) mg/dL Calcium 8.6 (8.4-10.2) mg/dL Magnesium 1.1 L (1.6-2.3) mg/dL Total Bilirubin 0.6 (0.2-1.3) mg/dL AST 24 (14-36) U/L ALT 18 (4-34) U/L Alkaline Phosphatase 95 (38-126) U/L Creatine Kinase 162 H (30-135) U/L Troponin I (0.000-0.034) ng/mL Total Protein 6.8 (6.3-8.2) g/dL Albumin 3.9 (3.5-5.0) g/dL Urine Color Light Yellow Urine Appearance Clear (Clear) Urine pH 6.0 (5.0-8.0) Ur Specific Aiken 1.011 (1.001-1.035) Urine Protein 1+ H (Negative) Urine Glucose (UA) 2+ H (Negative) Urine Ketones Negative (Negative) Urine Blood Trace H (Negative) Urine Nitrite Positive H (Negative) Urine Bilirubin Negative (Negative) Urine Urobilinogen <2.0 (<2.0) mg/dL Ur Leukocyte Esterase Moderate H (Negative) Urine RBC 1 (0-5) /hpf Urine WBC 11 H (0-5) /hpf Ur Squamous Epith Cells 1 (0-4) /hpf Urine Bacteria Many H (None) /hpf Urine Mucus Rare H (None) /hpf 04/29/22 Range/Units 08:26 WBC (3.8-10.6) k/uL RBC (3.80-5.40) m/uL Hgb (11.4-16.0) gm/dL Hct (34.0-46.0) % MCV (80.0-100.0) fL MCH (25.0-35.0) pg MCHC (31.0-37.0) g/dL RDW (11.5-15.5) % Plt Count (150-450) k/uL MPV Neutrophils % % Lymphocytes % % Monocytes % % Eosinophils % % Basophils % % Neutrophils # (1.3-7.7) k/uL Lymphocytes # (1.0-4.8) k/uL Monocytes # (0-1.0) k/uL Eosinophils # (0-0.7) k/uL Basophils # (0-0.2) k/uL Sodium (137-145) mmol/L Potassium (3.5-5.1) mmol/L Chloride (98-107) mmol/L Carbon Dioxide (22-30) mmol/L Anion Gap mmol/L BUN (7-17) mg/dL Creatinine (0.52-1.04) mg/dL Est GFR (CKD-EPI)AfAm (>60 ml/min/1.73 sqM) Est GFR (CKD-EPI)NonAf (>60 ml/min/1.73 sqM) Glucose (74-99) mg/dL Calcium (8.4-10.2) mg/dL Magnesium (1.6-2.3) mg/dL Total Bilirubin (0.2-1.3) mg/dL AST (14-36) U/L ALT (4-34) U/L Alkaline Phosphatase (38-126) U/L Creatine Kinase (30-135) U/L Troponin I <0.012 (0.000-0.034) ng/mL Total Protein (6.3-8.2) g/dL Albumin (3.5-5.0) g/dL Urine Color Urine Appearance (Clear) Urine pH (5.0-8.0) Ur Specific Aiken (1.001-1.035) Urine Protein (Negative) Urine Glucose (UA) (Negative) Urine Ketones (Negative) Urine Blood (Negative) Urine Nitrite (Negative) Urine Bilirubin (Negative) Urine Urobilinogen (<2.0) mg/dL Ur Leukocyte Esterase (Negative) Urine RBC (0-5) /hpf Urine WBC (0-5) /hpf Ur Squamous Epith Cells (0-4) /hpf Urine Bacteria (None) /hpf Urine Mucus (None) /hpf - EKG Data -: EKG Interpreted by Me EKG shows normal: sinus rhythm EKG Comments: Sinus bradycardia rate 53. Interval 163 QRS duration 117 QT/QTC 452/436 left exodeviation pulmonary disease pattern moderate interventricular conduction delay nonspecific ST configuration - Radiology Data Radiology results: report reviewed (Imaging reviewed as well as reports no evidence of acute fractures evidence of old injuries but no acute processes seen at this time. Please see the complete report), image reviewed Disposition Clinical Impression: Fall, Urinary tract infection, Dehydration, Hypomagnesemia syndrome, Forehead c ontusion Disposition: ADMITTED IP TO THIS [facility] Condition: Stable Referrals: Esvin Ramirez DO [Primary Care Provider] - 1-2 days
[2022-04-29 08:47] LABS: Basophils % (A) 0 %; Eosinophils # (A) 0.1 k/uL (0-0.7); Eosinophils % (A) 2 %; HCT 35.7 % (34.0-46.0); HGB 12.1 gm/dL (11.4-16.0); Lymphocytes # (A) 1.1 k/uL (1.0-4.8); Lymphocytes % (A) 16 %; MCH 28.6 pg (25.0-35.0); MCV 83.9 fL (80.0-100.0); Mean Platelet Volume 8.4; Monocytes # (A) 0.4 k/uL (0-1.0); Monocytes % (A) 6 %; Neutrophils # (A) 5.2 k/uL (1.3-7.7); Neutrophils % (A) 74 %; Platelet Count 218 k/uL (150-450); RBC 4.25 m/uL (3.80-5.40); RDW 14.5 % (11.5-15.5)
--- NOTE | 2022-04-29 09:00 | XR ---
EXAMINATION TYPE: XR chest 2V DATE OF EXAM: 04/29/2022 COMPARISON: 12/17/2021 HISTORY: 87-year-old female trauma, pain after fall today TECHNIQUE: AP and lateral views FINDINGS: Loop recorder device projects along the inferior aspect of the left heart. Median sternotomy wires an d post-CABG clips in the mediastinum. There is some narrowing of the subacromial space on both sides that may reflect chronic rotator cuff tears. Hazy densities relating to large patient body habitus. H eart borderline in size. No consolidation or pleural effusion. Atherosclerotic arch calcifications. IMPRESSION: Chronic changes; no definite acute process.
[2022-04-29 09:03] LABS: Albumin 3.9 g/dL (3.5-5.0); Calcium 8.6 mg/dL (8.4-10.2); Magnesium 1.1 mg/dL (1.6-2.3); Total Bilirubin 0.6 mg/dL (0.2-1.3); Total Protein 6.8 g/dL (6.3-8.2)
--- NOTE | 2022-04-29 09:03 | XR ---
EXAMINATION TYPE: XR knee complete 3 views RT, XR ankle complete 3 views RT DATE OF EXAM: 04/29/2022 COMPARISON: NONE HISTORY: 87-year-old female pain after fall, trauma. FINDINGS: Right knee: There is some medial sided soft tissue swelling. Bony spurring along the medial aspect of the proxima l tibial metaphysis likely relating to old injury of the MCL. No lipohemarthrosis or sizable joint ef fusion. Extensor mechanism appears intact. Osteopenia. Vascular calcifications. Surgical clips along the medial soft tissues suggesting prior saphenous vein graft harvesting. No acute fracture, subluxat ion, dislocation. Right ankle: Corticated bone densities below the medial malleolus compatible with sequela of old injury. Ankle mor tise is congruent with preservation of the distal tibiofibular overlap. Talar dome is intact. Retail Performance Coach ior soft tissue is obscured by crosstable lateral technique. Tiny posterior and plantar heel spurs. V ascular calcifications. No acute fracture, subluxation, or dislocation seen. IMPRESSION: 1. Right knee: Some medial sided soft tissue swelling. Sequela of remote MCL injury. No acute osseous abdomen body seen. 2. Right ankle: Sequela of old injury at the medial malleolus. No acute osseous abnormality seen.
--- NOTE | 2022-04-29 09:04 | XR ---
EXAMINATION TYPE: XR wrist complete 4 views LT DATE OF EXAM: 04/29/2022 COMPARISON: NONE HISTORY: 87-year-old female trauma, pain after fall TECHNIQUE: 3 views FINDINGS: Moderate degenerative change at the basal joint of the thumb. The radiocarpal and distal radioulnar j oints appear intact. Scattered synovial calcifications are noted. Mild soft tissue swelling at the wr ist. Vascular calcifications. Osteopenia. No acute fracture, subluxation, dislocation seen. IMPRESSION: Moderate OA at the basal joint of the thumb. Vascular calcifications. Mild soft tissue swelling. No a cute osseous pathology seen.
[2022-04-29 09:11] LABS: Appearance,Urine Clear (Clear); Bacteria,Urine Many /hpf; Bilirubin,Urine Negative (Negative); Blood,Urine Trace (Negative); Color,Urine Light Yellow; Glucose,Urine (UA) 2+ (Negative); Ketones,Urine Negative (Negative); Leukocyte Esterase,Urine Moderate (Negative); Mucus,Urine Rare /hpf; Nitrite,Urine Positive (Negative); Protein,Urine 1+ (Negative); RBC,Urine 1 /hpf (0-5); Specific Gravity,Urine 1.011 (1.001-1.035); Squamous Epithelial Cell,Urine 1 /hpf (0-4); Urobilinogen,Urine <2.0 mg/dL (<2.0); WBC,Urine 11 /hpf (0-5)
--- NOTE | 2022-04-29 09:35 | CT ---
EXAMINATION TYPE: CT brain yueine wo con DATE OF EXAM: 04/29/2022 COMPARISON: Brain 01/21/2021 HISTORY: 87-year-old female fall, swelling left frontal region and neck pain, on Plavix, Fall CT DLP: 1394.2 mGycm Automated exposure control for dose reduction was used. Technique: Examination of the head was done in axial plane without intravenous contrast. Coronal and sagittal reconstructions performed. CT of the cervical spine was obtained in axial plane without intravenous injection of contrast mater ial. Coronal and sagittal reformatted images were obtained from the axial views for evaluation of f ractures, spinal alignment and canal. FINDINGS: Head: Moderate left frontal scalp hematoma. No underlying calvarial fracture. There is no evidence of acute intracranial hemorrhage, acute ischemic changes, mass, mass-effect, or extra-axial fluid collection. There is no effacement of cerebral sulci or basal subarachnoid cister ns. There is no hydrocephalus. There is no midline shift. Rodriguez-white matter distinction is preserv ed. Benign bilateral basal ganglionic calcifications are unchanged. Cortical encephalomalacia left occipi luis eduardo lobe and left parieto-occipital junction unchanged. As described calcifications in the carotid si phons. 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 Scleral banding left globe. 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 Trace mucosal thickening ethmoid air cells. Mastoid air cells well pneumatized. Cervical spine: No craniocervical junction abnormally, predental space widening, or prevertebral soft tissue swelling . Degenerative change C1 dens articulation. Moderate disc/endplate degenerative change particularly C4-C6 levels with a narrowed disc spaces and disc osteophyte complex with anterior spurring. Some ligamentum flavum thickening is present. Changes likely contribute to possibly mild to moderate narrowing of the spinal canal at C5-C6 and C6- C7. No acute fracture of the cervical spine. Some anterior bridging endplate spondylosis noted at T2-T3 and T3-T4. Changes result in variable mild foraminal stenoses, moderate on the right at C5-C6 and C6-C7. Sagittal and coronal reformatted images confirm above findings. COMBINED IMPRESSION: 1. Left frontal scalp hematoma. No underlying calvarial fracture or acute intracranial abnormality se en. Old cortical infarcts left occipital lobe and left parieto-occipital junction. 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 2. No acute fracture or malalignment of the cervical spine. Moderate spondylotic change as above.
[2022-04-29] MEDS ORDERED: cefTRIAXone IN SWFI 1,000 MG/10 ML SYRINGE IVP STA (10:16)
[2022-04-29] MEDS ORDERED: SODIUM CHLORIDE 0.9% 1,000 ML IV STA (10:24)
[2022-04-29] MEDS ORDERED: DIPH,PERTUS(ACELL)TETVAC-LF 0.5 ML VIAL IM ONE (10:26)
[2022-04-29] MEDS: MAGNESIUM SULFATE-D5W PMX 1 GM in DEXTROSE/WATER 1 100ML.BAG IVPB SCH ×2 (10:38→15:33)
[2022-04-29] MEDS ORDERED: ONDANSETRON 4 MG/2 ML VIAL IVP PRN (11:03)
[2022-04-29] MEDS ORDERED: HYDROmorphone 0.5 MG/0.5 ML SYRINGE IVP PRN (11:03)
[2022-04-29] MEDS ORDERED: NALOXONE 0.4 MG/ML 1 ML VIAL IV PRN (11:03)
[2022-04-29] MEDS ORDERED: SODIUM CHLORIDE 0.65% NASAL SPRAY 44 ML BTL NASAL PRN (11:07)
[2022-04-29] MEDS ORDERED: NIFEdipine XL 30 MG TAB.ER.24 PO SCH ×2 (12:00→17:32)
[2022-04-29] MEDS ORDERED: METOPROLOL TARTRATE 50 MG TAB PO PRN (13:42)
[2022-04-29] MEDS ORDERED: NON FORMULARY DRUG (Omeprazole 20 MG Capsule.Dr) PO SCH (13:45)
[2022-04-29] MEDS: METOPROLOL TARTRATE 50 MG TAB PO SCH ×2 (14:39→21:28)
[2022-04-29] MEDS: ACETAMINOPHEN TAB 325 MG TAB PO PRN (14:56)
--- NOTE | 2022-04-29 17:35 | P.HPIM ---
History of Present Illness H&P Date: 04/29/22 Chief Complaint: Fall History of presenting complaint: This is a pleasant 87-year-old patient who follows with Dr. Ramirez. 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 Lives alone. Has 24/7 care at home. Left AKA. Patient presented after she fell getting out of bed has some neck pain and some joint pains some left forehead pain. There is no loss of consciousness. No fever no chills. No cough. Oral intake has been fair. Blood pressure was recorded with systolic blood pressure above 200. No chest pain or palpitation. Admitted for the same. Has been awaiting prosthesis with the left leg. Has questionable urination discomfort Review of systems: GEN.: Tired EYES: Blind in the right eye HEENT: Decreased hearing NECK: None RESPIRATORY: None CARDIOVASCULAR: None GASTROINTESTINAL: None GENITOURINARY: None MUSCULOSKELETAL: Joint pains, muscle weakness, as above LYMPHATICS: None HEMATOLOGICAL: None PSYCHIATRY: None NEUROLOGICAL: Peripheral neuropathy, blind in the right eye Past medical history to include: CAD, left-sided weakness from prior stroke, diabetes, blind in the right eye, h ypertension, hyperlipidemia, hypothyroid, chronic pain, osteoarthritis, peripheral neuropathy, esophageal stricture, urinary incontinence, uses a walker, PAD. Left above-knee amputation. Social history: Does not smoke or drink alcohol. . Has a wheelchair. Family history: Cancer. Father of cirrhosis, from alcoholism Physical examination: VITAL SIGNS: 98.2, 66, 17, 2 43 x 1 03, 96% room air GENERAL: BMI 25.8, laying in bed awake, tired. EYES: Blind in the right eyel. HEENT: External appearance of nose and ears normal, oral cavity grossly normal. Slight bruising and tenderness left forehead NECK: JVD not raised; masses not palpable. HEART: First and second heart sounds are normal; no edema. LUNGS: Respiratory rate normal; clear to auscultation. ABDOMEN: Soft, nontender, liver spleen not palpable, no masses palpable. PSYCH: Alert and oriented x3; mood and affect normal. MUSCULOSKELETAL:No Clubbing/cyanosis;muscles-grossly intact. Left above-knee amputation NEUROLOGICAL: Cranial nerves grossly intact; no facial asymmetry, power and sensation grossly intact. Chronic left-sided weakness. Blind in the right eye. LYMPHATICS: No lymph nodes palpable in the axilla and neck INVESTIGATIONS, reviewed in the clinical context WBC 7 hemoglobin 12.1 platelets 218 potassium 4. 23 creatinine 0.77 UA positive for nitrite, large leukoesterase, WBC Assessment and plan: -Accelerated hypertension, uncontrolled Zestoretic, Procardia XL, Lopressor. Increase Zestoretic to twice a day. Increase Procardia XL to 60 mg daily. -Acute UTI with cystitis IV ceftriaxone -chronic right shoulder dysfunction -Coronary artery disease, prior history of bypass 2007 Lopressor, -Diabetes mellitus type 2 on oral hypoglycemic, uncontrolled with hyperglycemia from infection Accu-Cheks with sliding scale Accu-Cheks and sliding scale Levemir 10units daily at bedtime -Blind in the right eye, chronic -Left above-knee amputation -Hyperlipidemia Lipitor 40 mg daily at bedtime -Hypothyroidism Synthroid -Primary osteoarthritis Continue pain medications -Diabetic peripheral neuropathy -Chronic urinary incontinence Depend Increase Zestoretic and Procardia dose. Other medications to continue. Fall precautions. Discussed with patient. Home medications resumed. IV ceftriaxone. 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, dysphagia,esophageal strictures with dilation, hiatal hernia, L eye diabetic retinopathy/R eye blindness, bilateral EKUK, UTIS/urinary leakage, past bilateral feet sores/osteomylitis, generalized pain, bilateral carpal tunnel syndrome, vertigo, hypothyroid, anemia History of Any Multi-Drug Resistant Organisms: MRSA Date of last positivie culture/infection: 07/24/21 MDRO Source:: MRSA FOOT Past Surgical History: Bladder Surgery, Cholecystectomy, Coronary Bypass/CABG, Heart Catheterization, Hysterectomy Additional Past Surgical History / Comment(s): 2007 CABG 4 vessel, EGDs with dilations, colonoscopies, cataract removal, D&C, bladder suspension, PICC, loop recorder, toe amputation may 2021, left AKA Past Anesthesia/Blood Transfusion Reactions: Motion Sickness, Postoperative Aubrey sea & Vomiting (PONV) Past Psychological History: No Psychological Hx Reported Additional Psychological History / Comment(s): Pt resides alone, in May 2021. Just recently set up 24/7 care at home. Pt uses a walker to ambulate. She has a glucometer, b/p cuff and shower chair. dinners. Smoking Status: Never smoker Past Alcohol Use History: None Reported Past Drug Use History: None Reported - Past Family History Father Family Medical History: Liver Disease Additional Family Medical History / Comment(s): Father of cirrhosis. He was a drinker. Mother History Unknown: Yes Family Medical History: Unable to Obtain Additional Family Medical History / Comment(s): Pt states she does not know her mother's medical history, but knows she at the age of 62 yrs.. Son(s) Family Medical History: Unable to Obtain, Renal Disease Daughter(s) Family Medical History: Cancer Medications and Allergies Home Medications Medication Instructions Recorded Confirmed Type Atorvastatin [Lipitor] 40 mg PO HS 12/02/20 04/29/22 History Cholecalciferol [Vitamin D3 (25 50 mcg PO DAILY 07/24/21 04/29/22 History Mcg = 1000 Iu)] Cranberry Fruit Extract [Cranberry] 500 mg PO DAILY 07/24/21 04/29/22 History Ibuprofen 600 mg PO Q6H PRN 12/16/21 04/29/22 History Insulin Aspart [NovoLOG Flexpen] See Protocol SQ AC-TID 12/16/21 04/29/22 History Insulin Glargine,Hum.rec.anlog 18 units SQ 12/16/21 04/29/22 History [Lantus Solostar Pen] Lisinopril-Hctz 20-12.5 mg 1 tab PO DAILY 12/16/21 04/29/22 History [Zestoretic 20-12.5] Acetaminophen Tab [Tylenol Tab] 500 mg PO Q6H PRN 04/29/22 04/29/22 History Clopidogrel Bisulfate [Clopidogrel] 75 mg PO DAILY 04/29/22 04/29/22 History Metoprolol Tartrate [Lopressor] 50 mg PO BID PRN 04/29/22 04/29/22 History Omeprazole [PriLOSEC] 20 mg PO DAILY 04/29/22 04/29/22 History Allergies Allergy/AdvReac Type Severity Reaction Status Date / Time aspirin Allergy Rash/Hives Verified 04/29/22 11:28 fish derived Allergy Rash/Hives Verified 04/29/22 11:28 Iodinated Contrast Media Allergy Rash/Hives Verified 04/29/22 11:28 [Iodinated Contrast Media - IV Dye] Iodine and Iodide Containing Allergy Rash/Hives Verified 04/29/22 11:28 Produc shellfish derived [Shellfish] Allergy Rash/Hives Verified 04/29/22 11:28 sulfamethoxazole Allergy Itching Verified 04/29/22 11:28 [From Bactrim] trimethoprim [From Bactrim] Allergy Itching Verified 04/29/22 11:28 Physical Exam Vitals: Vital Signs Temp Pulse Pulse Resp BP BP Pulse Ox 04/29/22 15:34 97.4 F L 55 L 15 211/65 100 04/29/22 14:51 98.3 F 66 18 199/81 98 04/29/22 13:00 68 18 198/82 97 04/29/22 11:00 64 15 210/94 100 04/29/22 09:29 63 15 227/85 100 04/29/22 08:00 98.2 F 66 17 243/103 96 Intake and Output 04/29/22 04/29/22 04/29/22 06:59 14:59 22:59 Other: Weight 72.575 kg 72.575 kg Results CBC & Chem 7: 04/29/22 08:26 04/29/22 08:26 Labs: Abnormal Lab Results - Last 24 Hours (Table) 04/29/22 04/29/22 Range/Units 08:26 08:26 BUN 23 H (7-17) mg/dL Glucose 198 H (74-99) mg/dL Magnesium 1.1 L (1.6-2.3) mg/dL Creatine Kinase 162 H (30-135) U/L Urine Protein 1+ H (Negative) Urine Glucose (UA) 2+ H (Negative) Urine Blood Trace H (Negative) Urine Nitrite Positive H (Negative) Ur Leukocyte Esterase Moderate H (Negative) Urine WBC 11 H (0-5) /hpf Urine Bacteria Many H (None) /hpf Urine Mucus Rare H (None) /hpf Microbiology - Last 24 Hours (Table) 04/29/22 08:26 Urine Culture - Preliminary Urine,Voided Thrombosis Risk Factor Assmnt - Choose All That Apply Any of the Below Risk Factors Present?: Yes Each Factor Represents 1 point: Obesity (BMI >25) Each Risk Factor Represents 3 Points: Age 75 years or older Other congenital or acquired thrombophilia - If yes, enter type in comment: No Thrombosis Risk Factor Assessment Total Risk Factor Score: 4 Thrombosis Risk Factor Assessment Level: Moderate Risk
[2022-04-29 20:15] LABS: Glucose,Whole Blood >600 mg/dL (70-110)
[2022-04-29 20:15] LABS: Glucose,Whole Blood 286 mg/dL (70-110)
[2022-04-29] MEDS ORDERED: METOPROLOL TARTRATE 50 MG TAB PO SCH (21:00)
[2022-04-29] MEDS: CHOLECALCIFEROL 25 MCG (1000 IU) TABLET PO SCH (21:29)
[2022-04-29] MEDS: LISINOPRIL-HCTZ 20-12.5 MG 1 EACH TAB PO SCH (21:29)
[2022-04-29] MEDS: INSULIN DETEMIR (LEVEMIR) 100 UNIT/ML SYR SQ SCH (21:29)
[2022-04-29] MEDS: ATORVASTATIN 40 MG TAB PO SCH (21:29)
[2022-04-30] MEDS: IBUPROFEN 600 MG TAB PO PRN ×2 (02:52→15:09)
[2022-04-30 03:21] LABS: Glucose,Whole Blood 322 mg/dL (70-110)
[2022-04-30] MEDS: LEVOTHYROXINE 50 MCG TAB PO SCH (06:14)
[2022-04-30] MEDS ORDERED: DEXTROSE 50% SYRINGE 50 ML IVP PRN ×2 (06:52)
[2022-04-30 07:01] LABS: Glucose,Whole Blood 254 mg/dL (70-110)
[2022-04-30] MEDS: METOPROLOL TARTRATE 50 MG TAB PO SCH ×2 (08:00→20:53)
[2022-04-30] MEDS: INSULIN ASPART (NovoLOG) 100 UNIT/ML VIAL SQ SCH ×4 (08:00→20:52)
[2022-04-30] MEDS: PANTOPRAZOLE 40 MG TABLET PO SCH (08:00)
[2022-04-30] MEDS: LISINOPRIL-HCTZ 20-12.5 MG 1 EACH TAB PO SCH ×2 (08:01→20:53)
[2022-04-30] MEDS ORDERED: LISINOPRIL-HCTZ 20-12.5 MG 1 EACH TAB PO SCH (09:00)
[2022-04-30 11:08] LABS: Glucose,Whole Blood 304 mg/dL (70-110)
[2022-04-30 12:37] VITALS: BMI 25.8
[2022-04-30 17:12] LABS: Glucose,Whole Blood 162 mg/dL (70-110)
[2022-04-30 20:11] LABS: Glucose,Whole Blood 277 mg/dL (70-110)
[2022-04-30] MEDS: ATORVASTATIN 40 MG TAB PO SCH (20:52)
[2022-04-30] MEDS: CHOLECALCIFEROL 25 MCG (1000 IU) TABLET PO SCH (20:52)
[2022-04-30] MEDS: INSULIN DETEMIR (LEVEMIR) 100 UNIT/ML SYR SQ SCH (20:53)
[2022-05-01] MEDS: IBUPROFEN 600 MG TAB PO PRN ×2 (01:00→15:29)
[2022-05-01] MEDS: LEVOTHYROXINE 50 MCG TAB PO SCH (05:33)
[2022-05-01 07:02] LABS: Glucose,Whole Blood 265 mg/dL (70-110)
[2022-05-01] MEDS: METOPROLOL TARTRATE 50 MG TAB PO SCH ×2 (08:56→20:44)
[2022-05-01] MEDS: INSULIN ASPART (NovoLOG) 100 UNIT/ML VIAL SQ SCH ×4 (08:56→20:44)
[2022-05-01] MEDS: PANTOPRAZOLE 40 MG TABLET PO SCH (08:56)
[2022-05-01] MEDS: LISINOPRIL-HCTZ 20-12.5 MG 1 EACH TAB PO SCH ×2 (08:56→20:44)
[2022-05-01 11:14] LABS: Glucose,Whole Blood 215 mg/dL (70-110)
[2022-05-01 17:16] LABS: Glucose,Whole Blood 136 mg/dL (70-110)
[2022-05-01 20:03] LABS: Glucose,Whole Blood 224 mg/dL (70-110)
[2022-05-01] MEDS: INSULIN DETEMIR (LEVEMIR) 100 UNIT/ML SYR SQ SCH (20:43)
[2022-05-01] MEDS: ATORVASTATIN 40 MG TAB PO SCH (20:44)
[2022-05-01] MEDS: CHOLECALCIFEROL 25 MCG (1000 IU) TABLET PO SCH (20:44)
--- NOTE | 2022-05-01 23:58 | PN ---
PROGRESS NOTE DATE OF SERVICE: 04/30/2022 SUBJECTIVE: This 87-year-old woman, who was admitted after a fall, had accelerated hypertension. The patient also had some acute UTI. No chest pain. No palpitations. No fever. OBJECTIVE: VITAL SIGNS: Pulse is 51, blood pressure 110/77, respirations 16. CHEST: Clear to auscultation. CARDIOVASCULAR: S1, S2 normal. ABDOMEN: Soft. NERVOUS SYSTEM: Nonfocal. LABORATORY DATA: Noted. ASSESSMENT: 1. Accelerated hypertension. 2. Acute urinary tract infection with cystitis. 3. Chronic right shoulder dysfunction. 4. Multiple medical issues. RECOMMENDATIONS: I recommend to continue current treatment. Current symptomatic treatment. Otherwise at this time, monitor blood pressure closely. I would also recommend possible PT/OT evaluation and possible ECF rehab. Guarded prognosis. MMODL / IJN: [id number] /
--- NOTE | 2022-05-02 03:16 | PN ---
PROGRESS NOTE DATE OF SERVICE: 05/01/2022 SUBJECTIVE: This is an 87-year-old woman, who was admitted with accelerated hypertension with UTI. Patient also had a fall. No chest pain. No palpitations. No fever. PHYSICAL EXAMINATION: VITAL SIGNS: Pulse is 56, blood pressure 160/60, respirations 16. CHEST: Clear to auscultation. CARDIOVASCULAR: S1, S2 normal. ABDOMEN: Soft. NERVOUS SYSTEM: Weak. LABORATORY DATA: Glucose 136. ASSESSMENT: 1. Accelerated hypertension. 2. Fall. 3. Urinary tract infection with cystitis. 4. Chronic right shoulder pain. 5. Multiple medical issues. 6. Gait dysfunction. RECOMMENDATION: I recommend to continue current treatment. Current symptomatic treatment. Otherwise we will continue with antibiotic. PT/OT evaluation, possible ECF rehab. Guarded prognosis. MMODL / IJN: [id number] /
[2022-05-02] MEDS: LEVOTHYROXINE 50 MCG TAB PO SCH (06:30)
[2022-05-02 07:09] LABS: Glucose,Whole Blood 184 mg/dL (70-110)
[2022-05-02] MEDS: LISINOPRIL-HCTZ 20-12.5 MG 1 EACH TAB PO SCH ×2 (08:30→20:49)
[2022-05-02] MEDS: INSULIN ASPART (NovoLOG) 100 UNIT/ML VIAL SQ SCH ×4 (08:30→20:49)
[2022-05-02] MEDS: METOPROLOL TARTRATE 50 MG TAB PO SCH ×2 (08:30→20:48)
[2022-05-02] MEDS: PANTOPRAZOLE 40 MG TABLET PO SCH (08:30)
[2022-05-02 12:07] LABS: Glucose,Whole Blood 284 mg/dL (70-110)
[2022-05-02 17:09] LABS: Glucose,Whole Blood 288 mg/dL (70-110)
[2022-05-02 20:08] LABS: Glucose,Whole Blood 270 mg/dL (70-110)
[2022-05-02] MEDS: ATORVASTATIN 40 MG TAB PO SCH (20:48)
[2022-05-02] MEDS: CHOLECALCIFEROL 25 MCG (1000 IU) TABLET PO SCH (20:48)
[2022-05-02] MEDS: INSULIN DETEMIR (LEVEMIR) 100 UNIT/ML SYR SQ SCH (20:49)
[2022-05-03] MEDS: ACETAMINOPHEN TAB 325 MG TAB PO PRN ×2 (00:46→09:01)
[2022-05-03] MEDS: LEVOTHYROXINE 50 MCG TAB PO SCH (06:00)
--- NOTE | 2022-05-03 06:22 | PN ---
PROGRESS NOTE DATE OF SERVICE: 05/02/2022 SUBJECTIVE: This is an 87-year-old woman, who was admitted with accelerated hypertension and fall, is being closely monitored. No chest pain. No palpitation. ECF rehab is being considered. PHYSICAL EXAMINATION: VITAL SIGNS: Pulse 52, blood pressure 154/70, respirations 16. CHEST: Clear to auscultation. CARDIOVASCULAR: S1 and S2. ABDOMEN: Soft. NERVOUS SYSTEM: No focal deficits. LABS: Reviewed. ASSESSMENT: 1. Accelerated hypertension. 2. Fall. 3. Urinary tract infection with cystitis present on admission. 4. Chronic right shoulder pain. 5. Multiple medical issues. 6. Gait dysfunction. RECOMMENDATIONS: Recommend to continue current management and symptomatic treatment. Otherwise, E coli grown from the cultures. Continue with antibiotics. Otherwise, I would also recommend PT, OT evaluation, possible ECF rehab. Further recommendations to follow. HERNANDO / VERNAN: [id number] /
[2022-05-03 06:59] LABS: Glucose,Whole Blood 165 mg/dL (70-110)
[2022-05-03] MEDS: INSULIN ASPART (NovoLOG) 100 UNIT/ML VIAL SQ SCH ×4 (08:03→20:20)
[2022-05-03] MEDS: LISINOPRIL-HCTZ 20-12.5 MG 1 EACH TAB PO SCH ×2 (08:21→20:21)
[2022-05-03] MEDS: METOPROLOL TARTRATE 50 MG TAB PO SCH ×2 (08:22→20:21)
[2022-05-03] MEDS: PANTOPRAZOLE 40 MG TABLET PO SCH (08:23)
[2022-05-03 12:15] LABS: Glucose,Whole Blood 171 mg/dL (70-110)
--- NOTE | 2022-05-03 14:26 | P.EN ---
Transport care ordered so that patient can get into the bathroom and throughout the home as needed with assistance from caregivers. Patient is unable to use a standard wheelchair for ADLs that cannot be resolved with a cane or walker and the patient will require a transport chair. Patient is not able to propel herself and has 247 caregivers to propel and assist the patient
[2022-05-03 15:23] LABS: Basophils % (A) 0 %; Eosinophils # (A) 0.1 k/uL (0-0.7); Eosinophils % (A) 2 %; HCT 33.3 % (34.0-46.0); HGB 11.1 gm/dL (11.4-16.0); Lymphocytes # (A) 1.2 k/uL (1.0-4.8); Lymphocytes % (A) 16 %; MCH 28.6 pg (25.0-35.0); MCHC 33.4 g/dL (31.0-37.0); MCV 85.7 fL (80.0-100.0); Mean Platelet Volume 8.7; Monocytes # (A) 0.4 k/uL (0-1.0); Monocytes % (A) 5 %; Neutrophils # (A) 5.8 k/uL (1.3-7.7); Neutrophils % (A) 76 %; Platelet Count 252 k/uL (150-450); RBC 3.88 m/uL (3.80-5.40); RDW 14.6 % (11.5-15.5); WBC 7.6 k/uL (3.8-10.6)
[2022-05-03 15:32] LABS: African American GFR (CKD) 70 (>60 ml/min/1.73 sqM); Anion Gap 8 mmol/L; Blood Urea Nitrogen 23 mg/dL (7-17); Calcium 7.9 mg/dL (8.4-10.2); Carbon Dioxide 25 mmol/L (22-30); Chloride 101 mmol/L (98-107); Glucose 229 mg/dL (74-99); Non-African American GFR(CKD) 61 (>60 ml/min/1.73 sqM); Potassium 4.7 mmol/L (3.5-5.1); Sodium 134 mmol/L (137-145)
[2022-05-03 17:15] LABS: Glucose,Whole Blood 246 mg/dL (70-110)
[2022-05-03 20:17] LABS: Glucose,Whole Blood 351 mg/dL (70-110)
[2022-05-03] MEDS: INSULIN DETEMIR (LEVEMIR) 100 UNIT/ML SYR SQ SCH (20:20)
[2022-05-03] MEDS: ATORVASTATIN 40 MG TAB PO SCH (20:21)
[2022-05-03] MEDS: CHOLECALCIFEROL 25 MCG (1000 IU) TABLET PO SCH (20:21)
[2022-05-03] MEDS ORDERED: INSULIN DETEMIR (LEVEMIR) 100 UNIT/ML SYR SQ ONE (20:45)
[2022-05-04] MEDS: ACETAMINOPHEN TAB 325 MG TAB PO PRN ×2 (02:39→15:22)
[2022-05-04] MEDS: LEVOTHYROXINE 50 MCG TAB PO SCH (05:33)
[2022-05-04 07:18] LABS: Glucose,Whole Blood 176 mg/dL (70-110)
[2022-05-04] MEDS: INSULIN ASPART (NovoLOG) 100 UNIT/ML VIAL SQ SCH ×3 (08:18→17:19)
[2022-05-04] MEDS: PANTOPRAZOLE 40 MG TABLET PO SCH (09:22)
[2022-05-04] MEDS: METOPROLOL TARTRATE 50 MG TAB PO SCH (09:25)
[2022-05-04] MEDS: LISINOPRIL-HCTZ 20-12.5 MG 1 EACH TAB PO SCH (09:26)
[2022-05-04 09:50] LABS: African American GFR (CKD) 55.7 (60.0-200.0); BUN/Creat Ratio 24.57 Ratio (12.00-20.00); Blood Urea Nitrogen 25.8 mg/dL (9.0-27.0); Calcium 8.5 mg/dL (8.7-10.3); Carbon Dioxide 23.3 mmol/L (20.0-27.5); Chloride 104 mmol/L (96-109); Glucose 175 mg/dL (70-110); Non-African American GFR(CKD) 48.1 (60.0-200.0); Potassium 4.4 mmol/L (3.5-5.5); Sodium 138 mmol/L (135-145)
--- NOTE | 2022-05-04 11:02 | P.PN ---
Subjective Progress Note Date: 05/03/22 Patient is a 87-year-old female with a known history of chronic right shoulder pain and multiple medical problems was admitted to hospital due to accelerated essential hypertension and follow and contusion over the left forehead. 05/03/2022 Patient is currently lying in bed. Awake alert but seems to be anxious and complains of pain in the left shoulder. No headache or dizziness or lightheadedness. PT OT is on board. Patient is afebrile. No nausea vomiting or abdominal pain or diarrhea. No cough or sputum production. Blood pressure is controlled. Blood sugar is still elevated. Laboratory data showed WBC 7. his hemoglobin 11.1 and platelets 252 Sodium 134 potassium 4.7 chloride 101 bicarb is 25 BUN 20 and creatinine 0.83 and blood pressure was 200 and this morning. Current medications reviewed. Objective - Vital Signs Vital signs: Vital Signs Temp 97.8 F 05/03/22 15:15 Pulse 53 L 05/03/22 15:15 Resp 20 05/03/22 15:15 BP 125/71 05/03/22 15:15 Pulse Ox 98 05/03/22 15:15 FiO2 Intake & Output 05/03/22 05/03/22 05/04/22 06:59 18:59 06:59 Intake Total 50 Balance 50 Intake: Intake, IV Titration 50 Amount cefTRIAXone 1 gm In 50 Sodium Chloride 0.9% 50 ml @ 100 mls/hr IVPB Q24HR [facility] Rx#:[id number] Other: Voiding Method Bedpan Bedpan # Voids 4 1 - Exam PHYSICAL EXAMINATION: Patient is lying in the bed comfortably, no acute distress, awake alert and oriented. Anxious.. HEENT: Normocephalic. Neck is supple. Pupils reactive. Nostrils clear. Oral cavity is moist. Neck reveals no JVD, carotid bruits, or thyromegaly. CHEST EXAMINATION: Trachea is central. Symmetrical expansion. Bibasilar diminished sounds. Lung barltett clear to auscultation and percussion. CARDIAC: Normal S1, S2 with no gallops. No murmurs ABDOMEN: Soft. Bowel sounds normal. No organomegaly. No abdominal bruits. Extremities: reveal no edema. No clubbing or cyanosis Neurologically awake, alert, oriented x2-3. Left upper and lower extremity weakness compared to right. Skin: No rash or skin lesions. Psychiatric: Coperative. Nonsuicidal Musculoskeletal: No joint swelling or deformity. Normal range of motion. . - Labs CBC & Chem 7: 05/03/22 15:01 05/04/22 06:26 Labs: Abnormal Lab Results - Last 24 Hours (Table) 05/03/22 05/03/22 05/03/22 Range/Units 06:54 12:12 15:01 Hgb 11.1 L (11.4-16.0) gm/dL Hct 33.3 L (34.0-46.0) % Sodium (137-145) mmol/L BUN (7-17) mg/dL Glucose (74-99) mg/dL POC Glucose (mg/dL) 165 H 171 H (70-110) mg/dL Calcium (8.4-10.2) mg/dL 05/03/22 05/03/22 05/03/22 Range/Units 15:01 17:13 20:14 Hgb (11.4-16.0) gm/dL Hct (34.0-46.0) % Sodium 134 L (137-145) mmol/L BUN 23 H (7-17) mg/dL Glucose 229 H (74-99) mg/dL POC Glucose (mg/dL) 246 H 351 H (70-110) mg/dL Calcium 7.9 L (8.4-10.2) mg/dL Assessment and Plan Assessment: Status post fall and contusion of the left forehead. Accelerated essential hypertension Hyperglycemia with uncontrolled diabetes type 2 E. coli urinary tract infection History of CVA/TIA with left arm and left leg weakness. GERD Hypertension Hyperlipidemia Osteoarthritis Hypothyroidism Coronary artery history of CABG 4 vessel History of bladder suspension surgery Diabetic peripheral neuropathy (Diabetic peripheral retinopathy and right eye blindness DVT prophylaxis Plan: Patient will be continued on antibiotics in the form of ceftriaxone. Gentle IV hydration. Continue with pain management and PT OT follow-up. Liver Indocin be increased to 15 units at bedtime and will add preprandial insulin if blood pressure continues to be high. Continue with insulin sliding scale and follow blood sugars closely. Continue with metoprolol and aspirin abuse/hydrochlorothiazide. procardia xl was added. Continue to titrate blood pressure medications. Follow-up CBC and BMP TSH and B12 level tomorrow. Possible discharge to rehab Time with Patient: Greater than 30
[2022-05-04 11:34] VITALS: BP 166/71; PULSE 54; RESP 16; TEMP 98.3
[2022-05-04 11:45] LABS: Glucose,Whole Blood 225 mg/dL (70-110)
--- NOTE | 2022-05-04 16:02 | P.DS ---
Providers Date of admission: 04/29/22 11:03 Expected date of discharge: 05/04/22 Attending physician: Elan Nagel Primary care physician: Esvin Ramirez [facility] Course: Chief Complaint: Fall History of presenting complaint: This is a pleasant 87-year-old patient who follows with Dr. Ramirez. 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 Lives alone. Has 24/7 care at home. Left AKA. Patient presented after she fell getting out of bed has some neck pain and some joint pains some left forehead pain. There is no loss of consciousness. No fever no chills. No cough. Oral intake has been fair. Blood pressure was recorded with systolic blood pressure above 200. No chest pain or palpitation. Admitted for the same. Has been awaiting prosthesis with the left leg. Has questionable urination discomfort Admitted with acute UTI, uncontrolled blood pressure. 05/04/2022: I assumed the care of the patient today from [facility] hospitalist. Patient doing well. Blood pressure controlled. Oral intake good. Discussed with renal case manager. Patient has good support system at home. Past medical history to include: CAD, 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 Left above-knee amputation. Social history: Does not smoke or drink alcohol. . Has a wheelchair. Family history: Cancer. Father of cirrhosis, from alcoholism Physical examination: VITAL SIGNS: 98.3, 54, 16, 166.71, 96% room air GENERAL: , laying in bed awake, comfortable EYES: Blind in the right eye. HEENT: External appearance of nose and ears normal, oral cavity grossly normal. Slight bruising and tenderness left forehead NECK: JVD not raised; masses not palpable. HEART: First and second heart sounds are normal; no edema. LUNGS: Respiratory rate normal; clear to auscultation. ABDOMEN: Soft, nontender, liver spleen not palpable, no masses palpable. PSYCH: Alert and oriented x3; mood and affect normal. MUSCULOSKELETAL:No Clubbing/cyanosis;muscles-grossly intact. Left above-knee amputation NEUROLOGICAL: Cranial nerves grossly intact; no facial asymmetry, power and sensation grossly intact. Chronic left-sided weakness. Blind in the right eye. LYMPHATICS: No lymph nodes palpable in the axilla and neck INVESTIGATIONS, reviewed in the clinical context 05/04/2022: Potassium 4.4 creatinine 1.1 TSH 4.8 vitamin B12 I 25 WBC 7 hemoglobin 12.1 platelets 218 potassium 4. 23 creatinine 0.77 UA positive for nitrite, large leukoesterase, WBC Assessment and plan: -Essential hypertension, controlled Lopressor. Increase Zestoretic to twice a day. Increase Procardia XL to 60 mg daily. -Acute UTI with cystitis IV ceftriaxone-completed course -chronic right shoulder dysfunction -Coronary artery disease, prior history of bypass 2007 Lopressor, -Diabetes mellitus type 2 on oral hypoglycemic, uncontrolled with hyperglycemia from infection Levemir 15 units daily at bedtime -Blind in the right eye, chronic -Left above-knee amputation -Hyperlipidemia Lipitor 40 mg daily at bedtime -Hypothyroidism Synthroid -Primary osteoarthritis Continue pain medications -Diabetic peripheral neuropathy -Chronic urinary incontinence Depend Disposition: Home Patient Condition at Discharge: Stable Plan - Discharge Summary Discharge Rx Participant: Yes New Discharge Prescriptions: New cefUROXime axetiL [Ceftin] 500 mg PO BID 3 Days #6 tab Levothyroxine Sodium [Synthroid] 50 mcg PO DAILY@0630 #30 tab NIFEdipine XL [Procardia XL] 60 mg PO DAILY #30 tab Continue Atorvastatin [Lipitor] 40 mg PO HS Cranberry Fruit Extract [Cranberry] 500 mg PO DAILY Cholecalciferol [Vitamin D3 (25 Mcg = 1000 Iu)] 50 mcg PO DAILY Lisinopril-Hctz 20-12.5 mg [Zestoretic 20-12.5] 1 tab PO DAILY Ibuprofen 600 mg PO Q6H PRN PRN Reason: Pain Metoprolol Tartrate [Lopressor] 50 mg PO BID PRN PRN Reason: HIGH BP Insulin Aspart [NovoLOG Flexpen] See Protocol SQ AC-TID Acetaminophen Tab [Tylenol] 500 mg PO Q6H PRN PRN Reason: Pain Or Fever > 100.5 Omeprazole [PriLOSEC] 20 mg PO DAILY Clopidogrel Bisulfate [Clopidogrel] 75 mg PO DAILY Changed Insulin Glargine,Hum.rec.anlog [Lantus Solostar Pen] 15 units SQ HS #0 Discharge Medication List Atorvastatin [Lipitor] 40 mg PO HS 12/02/20 [History] Cholecalciferol [Vitamin D3 (25 Mcg = 1000 Iu)] 50 mcg PO DAILY 07/24/21 [History] Cranberry Fruit Extract [Cranberry] 500 mg PO DAILY 07/24/21 [History] Ibuprofen 600 mg PO Q6H PRN 12/16/21 [History] Insulin Aspart [NovoLOG Flexpen] See Protocol SQ AC-TID 12/16/21 [History] Lisinopril-Hctz 20-12.5 mg [Zestoretic 20-12.5] 1 tab PO DAILY 12/16/21 [History] Acetaminophen Tab [Tylenol] 500 mg PO Q6H PRN 04/29/22 [History] Clopidogrel Bisulfate [Clopidogrel] 75 mg PO DAILY 04/29/22 [History] Metoprolol Tartrate [Lopressor] 50 mg PO BID PRN 04/29/22 [History] Omeprazole [PriLOSEC] 20 mg PO DAILY 04/29/22 [History] cefUROXime axetiL [Ceftin] 500 mg PO BID 3 Days #6 tab 05/03/22 [Rx] Insulin Glargine,Hum.rec.anlog [Lantus Solostar Pen] 15 units SQ HS #0 05/04/22 [Rx] Levothyroxine Sodium [Synthroid] 50 mcg PO DAILY@0630 #30 tab 05/04/22 [Rx] NIFEdipine XL [Procardia XL] 60 mg PO DAILY #30 tab 05/04/22 [Rx] Follow up Appointment(s)/Referral(s): Esvin Ramirez DO [Primary Care Provider] - 1-2 days (OFFICE WILL CALL YOU WITH APPOINTMENT DATE AND TIME.) [facility] Visiting Nurse, [NON-STAFF] - 1 Week (AGENCY WILL CONTACT YOU WITH APPOINTMENT DATE AND TIME.) Patient Instructions/Handouts: Urinary Tract Infection in Women (DC), Fall Prevention for Older Adults (DC), Chronic Hypertension (DC), Type 2 Diabetes in the Older Adult (DC) Discharge Disposition: HOME WITH HOME HEALTH SERVICES
[2022-05-04 16:54] LABS: Glucose,Whole Blood 258 mg/dL (70-110)
[2022-05-04] MEDS ORDERED: INSULIN DETEMIR (LEVEMIR) 100 UNIT/ML SYR SQ SCH (21:00)
== END 2022-05-04 18:27 | disposition home health service (06) | DRG 690 ==
LOC: EC 07:51 → 5NMEDONC 11:03
PROVIDERS: ADMIT Hospitalist; ATTEND Hospitalist
DX: N30.90 Cystitis, unspecified without hematuria (principal); I69.354 Hemiplegia and hemiparesis following cerebral infarction affecting left non-dominant side; I10 Essential (primary) hypertension; I25.10 Atherosclerotic heart disease of native coronary artery without angina pectoris; E11.65 Type 2 diabetes mellitus with hyperglycemia; H54.61 Unqualified visual loss, right eye, normal vision left eye; Z89.612 Acquired absence of left leg above knee; G89.29 Other chronic pain; E78.5 Hyperlipidemia, unspecified; E03.9 Hypothyroidism, unspecified; E11.42 Type 2 diabetes mellitus with diabetic polyneuropathy; R32 Unspecified urinary incontinence; M19.90 Unspecified osteoarthritis, unspecified site; W06.XXXA Fall from bed, initial encounter; Z88.6 Allergy status to analgesic agent; Z91.013 Allergy to seafood; Z91.041 Radiographic dye allergy status; Z87.19 Personal history of other diseases of the digestive system; B96.20 Unspecified Escherichia coli [E. coli] as the cause of diseases classified elsewhere; E11.319 Type 2 diabetes mellitus with unspecified diabetic retinopathy without macular edema; E83.42 Hypomagnesemia; E86.0 Dehydration; R00.1 Bradycardia, unspecified; J44.9 Chronic obstructive pulmonary disease, unspecified; K21.9 Gastro-esophageal reflux disease without esophagitis; S00.83XA Contusion of other part of head, initial encounter; S66.912A Strain of unspecified muscle, fascia and tendon at wrist and hand level, left hand, initial encounter; Z79.02 Long term (current) use of antithrombotics/antiplatelets; Z79.4 Long term (current) use of insulin; Z79.890 Hormone replacement therapy; Z79.899 Other long term (current) drug therapy; Z87.440 Personal history of urinary (tract) infections; Z89.512 Acquired absence of left leg below knee; Z90.710 Acquired absence of both cervix and uterus; Z95.1 Presence of aortocoronary bypass graft; Z90.49 Acquired absence of other specified parts of digestive tract; D64.9 Anemia, unspecified; Z86.14 Personal history of Methicillin resistant Staphylococcus aureus infection; Z88.2 Allergy status to sulfonamides; Z88.1 Allergy status to other antibiotic agents
CPT/HCPCS: 36415; 70450; 71046; 72125; 80048; 80053; 81001; 82550; 82607; 82747; 83036; 83735; 84443; 84484; 85025; 87077; 87086; 87186; 90471; 90715; 93005; 96361; 96374; 99285

== ENCOUNTER 2022-05-21 00:21 | Emergency (ER) | payer MEDICARE, OTHER ==
[2022-05-21 00:33] LABS: Glucose,Whole Blood 434 mg/dL (70-110)
[2022-05-21 00:39] VITALS: TEMP 98.7
[2022-05-21] MEDS ORDERED: INSULIN REGULAR 100 UNIT/ML VIAL (IV) SQ STA (01:18)
[2022-05-21] MEDS ORDERED: SODIUM CHLORIDE 0.9% 500 ML 500 ML IV STA (01:18)
[2022-05-21 01:30] LABS: Appearance,Urine Clear (Clear); Bilirubin,Urine Negative (Negative); Blood,Urine Negative (Negative); Color,Urine Light Yellow; Glucose,Urine (UA) 4+ (Negative); Ketones,Urine Negative (Negative); Leukocyte Esterase,Urine Negative (Negative); Nitrite,Urine Negative (Negative); Protein,Urine Trace (Negative); Specific Gravity,Urine 1.012 (1.001-1.035); Urobilinogen,Urine <2.0 mg/dL (<2.0)
--- NOTE | 2022-05-21 02:08 | XR ---
EXAMINATION TYPE: XR chest 1V portable DATE OF EXAM: 05/21/2022 COMPARISON: 04/29/2022 HISTORY: Hyperglycemia TECHNIQUE: Single view FINDINGS: Heart is normal. Lungs are clear of infiltrate. No heart failure. There are no hilar masses . There are sternal wires. Costophrenic angles are clear. Bony thorax is intact. IMPRESSION: No active cardiopulmonary disease. Normal heart. No change. Atheromatous aorta.
[2022-05-21 02:11] LABS: ALT 19 U/L (4-34); AST 19 U/L (14-36); African American GFR (CKD) 70 (>60 ml/min/1.73 sqM); Albumin 3.9 g/dL (3.5-5.0); Alkaline Phosphatase 126 U/L (38-126); Anion Gap 8 mmol/L; Basophils % (A) 0 %; Blood Urea Nitrogen 26 mg/dL (7-17); Calcium 8.6 mg/dL (8.4-10.2); Carbon Dioxide 25 mmol/L (22-30); Chloride 101 mmol/L (98-107); Eosinophils # (A) 0.2 k/uL (0-0.7); Eosinophils % (A) 2 %; Glucose 410 mg/dL (74-99); HCT 34.3 % (34.0-46.0); HGB 11.7 gm/dL (11.4-16.0); Lymphocytes # (A) 1.5 k/uL (1.0-4.8); Lymphocytes % (A) 19 %; MCH 29.6 pg (25.0-35.0); Mean Platelet Volume 8.9; Monocytes # (A) 0.4 k/uL (0-1.0); Monocytes % (A) 6 %; Neutrophils # (A) 5.6 k/uL (1.3-7.7); Neutrophils % (A) 71 %; Non-African American GFR(CKD) 61 (>60 ml/min/1.73 sqM); Platelet Count 232 k/uL (150-450); RBC 3.95 m/uL (3.80-5.40); RDW 14.7 % (11.5-15.5); Sodium 134 mmol/L (137-145); Total Bilirubin 0.5 mg/dL (0.2-1.3); Total Protein 6.8 g/dL (6.3-8.2); WBC 7.9 k/uL (3.8-10.6)
[2022-05-21] MEDS ORDERED: SODIUM CHLORIDE 0.9% 1,000 ML IV ONE (02:32)
[2022-05-21 02:54] LABS: Glucose,Whole Blood 328 mg/dL (70-110)
[2022-05-21] MEDS ORDERED: HYDROcodone/APAP 5-325MG 1 EACH TAB PO STA (03:05)
[2022-05-21 05:33] VITALS: PULSE 62
[2022-05-21 05:33] LABS: Glucose,Whole Blood 149 mg/dL (70-110)
--- NOTE | 2022-05-21 05:33 | ED ---
General Adult HPI - General Chief complaint: Shortness of Breath Stated complaint: Hyperglycemia Time Seen by Provider: 05/21/22 01:00 Source: EMS Mode of arrival: EMS Limitations: no limitations - History of Present Illness Initial comments: Patient is an 87-year-old woman presenting to have evaluation for hyperglycemia as well as not feeling well at home. Patient has been having problems with blood sugars running high despite taking medication. When the blood sugar resulted over 500 she felt she should be seen here. Patient denies significant pain. When questioned regarding infection, she states that she is currently taking antibiotics related to left leg infection. -: hour(s) Severity scale (1-10): 0 Consistency: constant Improves with: none Worsens with: none Associated Symptoms: malaise, shortness of breath - Related Data Home Medications Medication Instructions Recorded Confirmed Atorvastatin [Lipitor] 40 mg PO HS 12/02/20 04/29/22 Cholecalciferol [Vitamin D3 (25 50 mcg PO DAILY 07/24/21 04/29/22 Mcg = 1000 Iu)] Cranberry Fruit Extract [Cranberry] 500 mg PO DAILY 07/24/21 04/29/22 Ibuprofen 600 mg PO Q6H PRN 12/16/21 04/29/22 Insulin Aspart [NovoLOG Flexpen] See Protocol SQ AC-TID 12/16/21 04/29/22 Acetaminophen Tab [Tylenol] 500 mg PO Q6H PRN 04/29/22 04/29/22 Clopidogrel Bisulfate [Clopidogrel] 75 mg PO DAILY 04/29/22 04/29/22 Metoprolol Tartrate [Lopressor] 50 mg PO BID PRN 04/29/22 04/29/22 Omeprazole [PriLOSEC] 20 mg PO DAILY 04/29/22 04/29/22 Previous Rx's Medication Instructions Recorded cefUROXime axetiL [Ceftin] 500 mg PO BID 3 Days #6 tab 05/03/22 Insulin Glargine,Hum.rec.anlog 15 units SQ HS #0 05/04/22 [Lantus Solostar Pen] Levothyroxine Sodium [Synthroid] 50 mcg PO DAILY@0630 #30 tab 05/04/22 Lisinopril-Hctz 20-12.5 mg 1 tab PO BID #60 05/04/22 [Zestoretic 20-12.5] NIFEdipine XL [Procardia XL] 60 mg PO DAILY #30 tab 05/04/22 Allergies Allergy/AdvReac Type Severity Reaction Status Date / Time aspirin Allergy Rash/Hives Verified 04/29/22 11:28 fish derived Allergy Rash/Hives Verified 04/29/22 11:28 Iodinated Contrast Media Allergy Rash/Hives Verified 04/29/22 11:28 [Iodinated Contrast Media - IV Dye] Iodine and Iodide Containing Allergy Rash/Hives Verified 04/29/22 11:28 Produc shellfish derived [Shellfish] Allergy Rash/Hives Verified 04/29/22 11:28 sulfamethoxazole Allergy Itching Verified 04/29/22 11:28 [From Bactrim] trimethoprim [From Bactrim] Allergy Itching Verified 04/29/22 11:28 Review of Systems ROS Statement: Those systems with pertinent positive or pertinent negative responses have been documented in the HPI. ROS Other: All systems not noted in ROS Statement are negative. Constitutional: Reports: weakness. Denies: fever, chills Respiratory: Reports: dyspnea. Denies: cough, wheezes, hemoptysis Cardiovascular: Denies: chest pain, palpitations, orthopnea, syncope Gastrointestinal: Denies: abdominal pain, vomiting, diarrhea Genitourinary: Denies: dysuria, hematuria Musculoskeletal: Denies: back pain Skin: Denies: rash Neurological: Denies: headache, weakness 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, dysphagia,esophageal strictures with dilation, hiatal hernia, L eye diabetic retinopathy/R eye blindness, bilateral [place], UTIS/urinary leakage, past bilateral feet sores/osteomylitis, generalized pain, bilateral carpal tunnel syndrome, vertigo, hypothyroid, anemia History of Any Multi-Drug Resistant Organisms: MRSA Date of last positivie culture/infection: 07/24/21 MDRO Source:: MRSA FOOT Past Surgical History: Bladder Surgery, Cholecystectomy, Coronary Bypass/CABG, Heart Catheterization, Hysterectomy Additional Past Surgical History / Comment(s): 2007 CABG 4 vessel, EGDs with dilations, colonoscopies, cataract removal, D&C, bladder suspension, PICC, loop recorder, toe amputation may 2021, left AKA Past Anesthesia/Blood Transfusion Reactions: Motion Sickness, Postoperative Nausea & Vomiting (PONV) Past Psychological History: No Psychological Hx Reported Smoking Status: Never smoker Past Alcohol Use History: None Reported Past Drug Use History: None Reported - Past Family History Father Family Medical History: Liver Disease Additional Family Medical History / Comment(s): Father of cirrhosis. He was a drinker. Mother History Unknown: Yes Family Medical History: Unable to Obtain Additional Family Medical History / Comment(s): Pt states she does not know her mother's medical history, but knows she at the age of 62 yrs.. Son(s) Family Medical History: Unable to Obtain, Renal Disease Daughter(s) Family Medical History: Cancer General Exam Limitations: no limitations General appearance: alert, in no apparent distress Head exam: Present: atraumatic, normocephalic Eye exam: Present: normal appearance. Absent: scleral icterus, conjunctival injection ENT exam: Present: mucous membranes dry Neck exam: Present: normal inspection Respiratory exam: Present: normal lung sounds bilaterally. Absent: respiratory distress, wheezes, rales, rhonchi, stridor Cardiovascular Exam: Present: regular rate, normal rhythm, normal heart sounds. Absent: systolic murmur, diastolic murmur, rubs, gallop GI/Abdominal exam: Present: soft. Absent: distended, tenderness, guarding, rebound, rigid, mass Extremities exam: Present: normal inspection, normal capillary refill. Absent: pedal edema, calf tenderness Back exam: Present: normal inspection. Absent: CVA tenderness (R), CVA tenderness (L) Neurological exam: Present: alert Skin exam: Present: warm, dry, erythema. Absent: rash Course Vital Signs 05/21/22 05/21/22 05/21/22 00:35 00:40 05:32 Temperature 98.7 F 98.7 F Pulse Rate 82 66 62 Respiratory 16 16 14 Rate Blood Pressure 171/58 171/58 185/78 O2 Sat by Pulse 97 97 99 Oximetry 05/21/22 09:00 Temperature Pulse Rate 62 Respiratory 18 Rate Blood Pressure 164/81 O2 Sat by Pulse 96 Oximetry Medical Decision Making - Medical Decision Making Patient is 87-year-old woman here with hyperglycemia. She has responded to insulin and fluids. Discussed admission at this point patient would rather a ttempt going home. Discussed appropriate further care and follow-up related to patient's leg as well as the hyperglycemia. Discussed return parameters. - Lab Data Result diagrams: 05/21/22 01:11 05/21/22 01:11 Lab Results 05/21/22 05/21/22 05/21/22 Range/Units 00:31 01:11 01:11 WBC 7.9 (3.8-10.6) k/uL RBC 3.95 (3.80-5.40) m/uL Hgb 11.7 (11.4-16.0) gm/dL Hct 34.3 (34.0-46.0) % MCV 87.0 (80.0-100.0) fL MCH 29.6 (25.0-35.0) pg MCHC 34.0 (31.0-37.0) g/dL RDW 14.7 (11.5-15.5) % Plt Count 232 (150-450) k/uL MPV 8.9 Neutrophils % 71 % Lymphocytes % 19 % Monocytes % 6 % Eosinophils % 2 % Basophils % 0 % Neutrophils # 5.6 (1.3-7.7) k/uL Lymphocytes # 1.5 (1.0-4.8) k/uL Monocytes # 0.4 (0-1.0) k/uL Eosinophils # 0.2 (0-0.7) k/uL Basophils # 0.0 (0-0.2) k/uL Sodium 134 L (137-145) mmol/L Potassium 5.0 (3.5-5.1) mmol/L Chloride 101 (98-107) mmol/L Carbon Dioxide 25 (22-30) mmol/L Anion Gap 8 mmol/L BUN 26 H (7-17) mg/dL Creatinine 0.87 (0.52-1.04) mg/dL Est GFR (CKD-EPI)AfAm 70 (>60 ml/min/1.73 sqM) Est GFR (CKD-EPI)NonAf 61 (>60 ml/min/1.73 sqM) Glucose 410 H (74-99) mg/dL POC Glucose (mg/dL) 434 H (70-110) mg/dL POC Glu Director Regulatory Agency Kim Amaya Calcium 8.6 (8.4-10.2) mg/dL Total Bilirubin 0.5 (0.2-1.3) mg/dL AST 19 (14-36) U/L ALT 19 (4-34) U/L Alkaline Phosphatase 126 (38-126) U/L Troponin I (0.000-0.034) ng/mL Total Protein 6.8 (6.3-8.2) g/dL Albumin 3.9 (3.5-5.0) g/dL Urine Color Urine Appearance (Clear) Urine pH (5.0-8.0) Ur Specific [place] (1.001-1.035) Urine Protein (Negative) Urine Glucose (UA) (Negative) Urine Ketones (Negative) Urine Blood (Negative) Urine Nitrite (Negative) Urine Bilirubin (Negative) Urine Urobilinogen (<2.0) mg/dL Ur Leukocyte Esterase (Negative) Acetone, Qual Negative (Negative) 05/21/22 05/21/22 05/21/22 Range/Units 01:11 01:22 02:51 WBC (3.8-10.6) k/uL RBC (3.80-5.40) m/uL Hgb (11.4-16.0) gm/dL Hct (34.0-46.0) % MCV (80.0-100.0) fL MCH (25.0-35.0) pg MCHC (31.0-37.0) g/dL RDW (11.5-15.5) % Plt Count (150-450) k/uL MPV Neutrophils % % Lymphocytes % % Monocytes % % Eosinophils % % Basophils % % Neutrophils # (1.3-7.7) k/uL Lymphocytes # (1.0-4.8) k/uL Monocytes # (0-1.0) k/uL Eosinophils # (0-0.7) k/uL Basophils # (0-0.2) k/uL Sodium (137-145) mmol/L Potassium (3.5-5.1) mmol/L Chloride (98-107) mmol/L Carbon Dioxide (22-30) mmol/L Anion Gap mmol/L BUN (7-17) mg/dL Creatinine (0.52-1.04) mg/dL Est GFR (CKD-EPI)AfAm (>60 ml/min/1.73 sqM) Est GFR (CKD-EPI)NonAf (>60 ml/min/1.73 sqM) Glucose (74-99) mg/dL POC Glucose (mg/dL) 328 H (70-110) mg/dL POC Glu Director Regulatory Agency ID Yeimi Mcelroy Calcium (8.4-10.2) mg/dL Total Bilirubin (0.2-1.3) mg/dL AST (14-36) U/L ALT (4-34) U/L Alkaline Phosphatase (38-126) U/L Troponin I <0.012 (0.000-0.034) ng/mL Total Protein (6.3-8.2) g/dL Albumin (3.5-5.0) g/dL Urine Color Light Yellow Urine Appearance Clear (Clear) Urine pH 7.0 (5.0-8.0) Ur Specific [place] 1.012 (1.001-1.035) Urine Protein Trace H (Negative) Urine Glucose (UA) 4+ H (Negative) Urine Ketones Negative (Negative) Urine Blood Negative (Negative) Urine Nitrite Negative (Negative) Urine Bilirubin Negative (Negative) Urine Urobilinogen <2.0 (<2.0) mg/dL Ur Leukocyte Esterase Negative (Negative) Acetone, Qual (Negative) 05/21/22 05/21/22 Range/Units 05:31 05:31 WBC (3.8-10.6) k/uL RBC (3.80-5.40) m/uL Hgb (11.4-16.0) gm/dL Hct (34.0-46.0) % MCV (80.0-100.0) fL MCH (25.0-35.0) pg MCHC (31.0-37.0) g/dL RDW (11.5-15.5) % Plt Count (150-450) k/uL MPV Neutrophils % % Lymphocytes % % Monocytes % % Eosinophils % % Basophils % % Neutrophils # (1.3-7.7) k/uL Lymphocytes # (1.0-4.8) k/uL Monocytes # (0-1.0) k/uL Eosinophils # (0-0.7) k/uL Basophils # (0-0.2) k/uL Sodium (137-145) mmol/L Potassium (3.5-5.1) mmol/L Chloride (98-107) mmol/L Carbon Dioxide (22-30) mmol/L Anion Gap mmol/L BUN (7-17) mg/dL Creatinine (0.52-1.04) mg/dL Est GFR (CKD-EPI)AfAm (>60 ml/min/1.73 sqM) Est GFR (CKD-EPI)NonAf (>60 ml/min/1.73 sqM) Glucose (74-99) mg/dL POC Glucose (mg/dL) 149 H 149 H (70-110) mg/dL POC Glu Director Regulatory Agency ID Mirza, Toby Mirza, Toby Calcium (8.4-10.2) mg/dL Total Bilirubin (0.2-1.3) mg/dL AST (14-36) U/L ALT (4-34) U/L Alkaline Phosphatase (38-126) U/L Troponin I (0.000-0.034) ng/mL Total Protein (6.3-8.2) g/dL Albumin (3.5-5.0) g/dL Urine Color Urine Appearance (Clear) Urine pH (5.0-8.0) Ur Specific [place] (1.001-1.035) Urine Protein (Negative) Urine Glucose (UA) (Negative) Urine Ketones (Negative) Urine Blood (Negative) Urine Nitrite (Negative) Urine Bilirubin (Negative) Urine Urobilinogen (<2.0) mg/dL Ur Leukocyte Esterase (Negative) Acetone, Qual (Negative) Disposition Clinical Impression: Hyperglycemia Disposition: HOME SELF-CARE Condition: Good Instructions (If sedation given, give patient instructions): Diabetic Hyperglycemia (ED) Is patient prescribed a controlled substance at d/c from ED?: No Referrals: Esvin Ramirez DO [Primary Care Provider] - 1-2 days
[2022-05-21 15:30] VITALS: BP 164/81; RESP 18
== END 2022-05-21 09:01 | disposition home or self-care (01) ==
LOC: EC 00:21
DX: E11.65 Type 2 diabetes mellitus with hyperglycemia (principal); I10 Essential (primary) hypertension; I25.10 Atherosclerotic heart disease of native coronary artery without angina pectoris; J44.9 Chronic obstructive pulmonary disease, unspecified; K21.9 Gastro-esophageal reflux disease without esophagitis; E78.5 Hyperlipidemia, unspecified; M19.90 Unspecified osteoarthritis, unspecified site; E07.9 Disorder of thyroid, unspecified; Z88.6 Allergy status to analgesic agent; Z91.013 Allergy to seafood; Z88.2 Allergy status to sulfonamides; Z79.4 Long term (current) use of insulin; Z79.83 Long term (current) use of bisphosphonates; Z79.899 Other long term (current) drug therapy
CPT/HCPCS: 36415; 71045; 80053; 81003; 82009; 84484; 85025; 93005; 96360; 96361; 99285

== ENCOUNTER 2022-10-05 01:08 | Inpatient (IN) | payer MEDICARE, OTHER ==
--- NOTE | 2022-10-05 01:26 | ED ---
Altered Mental Status HPI - General Chief Complaint: Altered Mental Status Stated Complaint: UTI Time Seen by Provider: 10/05/22 01:12 Source: patient, EMS, RN notes reviewed Mode of arrival: EMS Limitations: altered mental status - History of Present Illness Initial Comments: This is an 87-year-old female who presents to the emergency department for alt ered mental status. Per EMS, her family states that over the last couple of days she has not been acting like herself and seems more confused than normal. Her family states that this usually happens when she has a UTI. They note that her urine has also been smelling stronger than usual. She has not had any fevers or otherwise had any complaints. Per EMS, the patient was confused as to where she was on the ride over here. On examination of the patient, she continues to ask where she is and is very confused. She is also unable to provide the year. MD Complaint: altered mental status - Related Data Home Medications Medication Instructions Recorded Confirmed Atorvastatin [Lipitor] 40 mg PO HS 12/02/20 04/29/22 Cholecalciferol [Vitamin D3 (25 50 mcg PO DAILY 07/24/21 04/29/22 Mcg = 1000 Iu)] Cranberry Fruit Extract [Cranberry] 500 mg PO DAILY 07/24/21 04/29/22 Ibuprofen 600 mg PO Q6H PRN 12/16/21 04/29/22 Insulin Aspart [NovoLOG Flexpen] See Protocol SQ AC-TID 12/16/21 04/29/22 Acetaminophen Tab [Tylenol] 500 mg PO Q6H PRN 04/29/22 04/29/22 Clopidogrel Bisulfate [Clopidogrel] 75 mg PO DAILY 04/29/22 04/29/22 Metoprolol Tartrate [Lopressor] 50 mg PO BID PRN 04/29/22 04/29/22 Omeprazole [PriLOSEC] 20 mg PO DAILY 04/29/22 04/29/22 Previous Rx's Medication Instructions Recorded cefUROXime axetiL [Ceftin] 500 mg PO BID 3 Days #6 tab 05/03/22 Insulin Glargine,Hum.rec.anlog 15 units SQ HS #0 05/04/22 [Lantus Solostar Pen] Levothyroxine Sodium [Synthroid] 50 mcg PO DAILY@0630 #30 tab 05/04/22 Lisinopril-Hctz 20-12.5 mg 1 tab PO BID #60 05/04/22 [Zestoretic 20-12.5] NIFEdipine XL [Procardia XL] 60 mg PO DAILY #30 tab 05/04/22 Allergies Allergy/AdvReac Type Severity Reaction Status Date / Time aspirin Allergy Rash/Hives Verified 04/29/22 11:28 fish derived Allergy Rash/Hives Verified 04/29/22 11:28 Iodinated Contrast Media Allergy Rash/Hives Verified 04/29/22 11:28 [Iodinated Contrast Media - IV Dye] Iodine and Iodide Containing Allergy Rash/Hives Verified 04/29/22 11:28 Produc shellfish derived [Shellfish] Allergy Rash/Hives Verified 04/29/22 11:28 sulfamethoxazole Allergy Itching Verified 04/29/22 11:28 [From Bactrim] trimethoprim [From Bactrim] Allergy Itching Verified 04/29/22 11:28 Review of Systems ROS Statement: Those systems with pertinent positive or pertinent negative responses have been documented in the HPI. ROS Other: All systems not noted in ROS Statement are negative. 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, dysphagia,esophageal strictures with dilation, hiatal hernia, L eye diabetic retinopathy/R eye blindness, bilateral [place], UTIS/urinary leakage, past bilateral feet sores/osteomylitis, generalized pain, bilateral carpal tunnel syndrome, vertigo, hypothyroid, anemia History of Any Multi-Drug Resistant Organisms: MRSA Date of last positivie culture/infection: 07/24/21 MDRO Source:: MRSA FOOT Past Surgical History: Bladder Surgery, Cholecystectomy, Coronary Bypass/CABG, Heart Catheterization, Hysterectomy Additional Past Surgical History / Comment(s): 2007 CABG 4 vessel, EGDs with dilations, colonoscopies, cataract removal, D&C, bladder suspension, PICC, loop recorder, toe amputation may 2021, left AKA Past Anesthesia/Blood Transfusion Reactions: Motion Sickness, Postoperative Nausea & Vomiting (PONV) Past Psychological History: No Psychological Hx Reported Smoking Status: Never smoker Past Alcohol Use History: None Reported Past Drug Use History: None Reported - Past Family History Father Family Medical History: Liver Disease Additional Family Medical History / Comment(s): Father of cirrhosis. He was a drinker. Mother History Unknown: Yes Family Medical History: Unable to Obtain Additional Family Medical History / Comment(s): Pt states she does not know her mother's medical history, but knows she at the age of 62 yrs.. Son(s) Family Medical History: Unable to Obtain, Renal Disease Daughter(s) Family Medical History: Cancer General Exam Limitations: no limitations General appearance: alert, in no apparent distress Head exam: Present: atraumatic, normocephalic, normal inspection Respiratory exam: Present: normal lung sounds bilaterally. Absent: respiratory distress, wheezes, rales, rhonchi, stridor Cardiovascular Exam: Present: regular rate, normal rhythm, normal heart sounds. Absent: systolic murmur, diastolic murmur, rubs, gallop, clicks GI/Abdominal exam: Present: soft, normal bowel sounds. Absent: distended, tenderness, guarding, rebound, rigid Neurological exam: Present: alert, other (oriented x1) Psychiatric exam: Present: normal affect, normal mood Skin exam: Present: warm, dry, intact, normal color. Absent: rash Course Vital Signs 10/05/22 01:32 Pulse Rate 58 L Respiratory 16 Rate Blood Pressure 129/86 Medical Decision Making - Medical Decision Making This is an 87-year-old female who presents to the emergency department for altered mental status. Was pt. sent in by a medical professional or institution? @ -No Did you speak to anyone other than the patient for history? @ -EMS Did you review nursing and triage notes? @ -Yes, and I agree, it is accurate with regards to the patient's symptoms. Were old charts reviewed? @ -No Differential Diagnosis? @ -Differential Altered Mental Status: Hypoglycemia, DKA, hypercapnia, ETOH, overdose, CO poisoning, trauma, myxedema coma, HTN encephalopathy, infection, encephalitis, psychosis, intercranial hemorrhage, hepatic encephalopathy, meningitis, CVA, this is not meant to be an all-inclusive list EKG interpreted by me (3pts min.)? @ -Sinus bradycardia. Ventricular rate 56 bpm, IN interval 174 ms, QRS duration 120 ms, QTC 451 ms. What testing was considered but not performed? (CT, X-rays, U/S, labs)? Why? @ -None What meds were considered but not given? Why? @ -None Did you discuss the management of the patient with other professionals? @ -No Did you reconcile home meds? @ -No Was smoking cessation discussed for >3mins.? @ -No Was critical care preformed (if so, how long)? @ -No Were there social determinants of health that impacted care today? How? (Homelessness, low income, unemployed, alcoholism, drug addiction, transportation, low edu. Level, literacy, decrease access to med. care, longterm, rehab)? @ -No Was there de-escalation of care discussed even if they declined? (Discuss DNR or withdrawal of care, Hospice)? @ -No What co-morbidities impacted this encounter? (DM, HTN, Smoking, COPD, CAD, Cancer, CVA, Hep., AIDS, mental health diagnosis, sleep apnea, morbid obesity)? @ -CAD, COPD, DM, CVA/TIA, HLD, HTN Was patient admitted / discharged? @ -Admitted. Lab work obtained and found to be nonactionable. Urinalysis consistent with infection vs. contamination. Patient was given 1 g of ceftriaxone for possible UTI. Discussed with the patient's family the possibility of admission versus discharge home. They state that she does live alone, and given her current state of confusion, she would not be safe at home. Given that the patient is notably altered and unsure where she is, which is not her baseline, will admit to medicine for IV antibiotics and further management. Undiagnosed new problem with uncertain prognosis? @ -None Drug Therapy requiring intensive monitoring for toxicity (Heparin, Nitro, Insulin, Cardizem)? @ -None Were any procedures done? @ -None Diagnosis/symptom? @ -AMS, UTI Acute, or Chronic, or Acute on Chronic? @ -Acute Uncomplicated (without systemic symptoms) or Complicated (systemic symptoms)? @ -Complicated Side effects of treatment? @ -None Exacerbation, Progression, or Severe Exacerbation] @ -Not applicable Poses a threat to life or bodily function? @ -Yes This case was discussed in detail with the attending ED physician, Dr. Allen. Presentation, findings, and treatment plan discussed in detail as well. - Lab Data Result diagrams: 10/05/22 02:57 10/05/22 02:57 Lab Results 10/05/22 10/05/22 10/05/22 Range/Units 01:23 02:57 02:57 WBC 8.2 (3.8-10.6) k/uL RBC 4.13 (3.80-5.40) m/uL Hgb 11.8 (11.4-16.0) gm/dL Hct 34.9 (34.0-46.0) % MCV 84.6 (80.0-100.0) fL MCH 28.5 (25.0-35.0) pg MCHC 33.7 (31.0-37.0) g/dL RDW 14.6 (11.5-15.5) % Plt Count 282 (150-450) k/uL MPV 8.5 Neutrophils % 76 % Lymphocytes % 15 % Monocytes % 5 % Eosinophils % 2 % Basophils % 0 % Neutrophils # 6.2 (1.3-7.7) k/uL Lymphocytes # 1.3 (1.0-4.8) k/uL Monocytes # 0.4 (0-1.0) k/uL Eosinophils # 0.2 (0-0.7) k/uL Basophils # 0.0 (0-0.2) k/uL Sodium 139 (137-145) mmol/L Potassium 4.3 (3.5-5.1) mmol/L Chloride 104 (98-107) mmol/L Carbon Dioxide 25 (22-30) mmol/L Anion Gap 10 mmol/L BUN 19 H (7-17) mg/dL Creatinine 0.85 (0.52-1.04) mg/dL Est GFR (CKD-EPI)AfAm 72 (>60 ml/min/1.73 sqM) Est GFR (CKD-EPI)NonAf 63 (>60 ml/min/1.73 sqM) Glucose 194 H (74-99) mg/dL Plasma Lactic Acid [place] (0.7-2.0) mmol/L Calcium 8.3 L (8.4-10.2) mg/dL Total Bilirubin 0.3 (0.2-1.3) mg/dL AST 25 (14-36) U/L ALT 22 (4-34) U/L Alkaline Phosphatase 102 (38-126) U/L Troponin I (0.000-0.034) ng/mL Total Protein 7.4 (6.3-8.2) g/dL Albumin 3.7 (3.5-5.0) g/dL Urine Color Light Yellow Urine Appearance Clear (Clear) Urine pH 6.5 (5.0-8.0) Ur Specific [place] 1.011 (1.001-1.035) Urine Protein 2+ H (Negative) Urine Glucose (UA) Trace H (Negative) Urine Ketones Negative (Negative) Urine Blood Negative (Negative) Urine Nitrite Negative (Negative) Urine Bilirubin Negative (Negative) Urine Urobilinogen <2.0 (<2.0) mg/dL Ur Leukocyte Esterase Large H (Negative) Urine RBC 2 (0-5) /hpf Urine WBC 25 H (0-5) /hpf Urine WBC Clumps Rare H (None) /hpf Ur Squamous Epith Cells 8 H (0-4) /hpf Urine Bacteria Rare H (None) /hpf Hyaline Casts 4 H (0-2) /lpf Urine Mucus Rare H (None) /hpf 10/05/22 10/05/22 Range/Units 02:57 02:58 WBC (3.8-10.6) k/uL RBC (3.80-5.40) m/uL Hgb (11.4-16.0) gm/dL Hct (34.0-46.0) % MCV (80.0-100.0) fL MCH (25.0-35.0) pg MCHC (31.0-37.0) g/dL RDW (11.5-15.5) % Plt Count (150-450) k/uL MPV Neutrophils % % Lymphocytes % % Monocytes % % Eosinophils % % Basophils % % Neutrophils # (1.3-7.7) k/uL Lymphocytes # (1.0-4.8) k/uL Monocytes # (0-1.0) k/uL Eosinophils # (0-0.7) k/uL Basophils # (0-0.2) k/uL Sodium (137-145) mmol/L Potassium (3.5-5.1) mmol/L Chloride (98-107) mmol/L Carbon Dioxide (22-30) mmol/L Anion Gap mmol/L BUN (7-17) mg/dL Creatinine (0.52-1.04) mg/dL Est GFR (CKD-EPI)AfAm (>60 ml/min/1.73 sqM) Est GFR (CKD-EPI)NonAf (>60 ml/min/1.73 sqM) Glucose (74-99) mg/dL Plasma Lactic Acid Evelio 1.4 (0.7-2.0) mmol/L Calcium (8.4-10.2) mg/dL Total Bilirubin (0.2-1.3) mg/dL AST (14-36) U/L ALT (4-34) U/L Alkaline Phosphatase (38-126) U/L Troponin I 0.016 (0.000-0.034) ng/mL Total Protein (6.3-8.2) g/dL Albumin (3.5-5.0) g/dL Urine Color Urine Appearance (Clear) Urine pH (5.0-8.0) Ur Specific [place] (1.001-1.035) Urine Protein (Negative) Urine Glucose (UA) (Negative) Urine Ketones (Negative) Urine Blood (Negative) Urine Nitrite (Negative) Urine Bilirubin (Negative) Urine Urobilinogen (<2.0) mg/dL Ur Leukocyte Esterase (Negative) Urine RBC (0-5) /hpf Urine WBC (0-5) /hpf Urine WBC Clumps (None) /hpf Ur Squamous Epith Cells (0-4) /hpf Urine Bacteria (None) /hpf Hyaline Casts (0-2) /lpf Urine Mucus (None) /hpf Disposition Clinical Impression: Altered mental status, UTI (urinary tract infection) Disposition: ADMITTED IP TO THIS [facility] Referrals: Esvin Ramirez DO [Primary Care Provider] - 1-2 days
[2022-10-05 02:35] LABS: Appearance,Urine Clear (Clear); Bacteria,Urine Rare /hpf; Bilirubin,Urine Negative (Negative); Blood,Urine Negative (Negative); Color,Urine Light Yellow; Glucose,Urine (UA) Trace (Negative); Hyaline Casts,Urine 4 /lpf (0-2); Ketones,Urine Negative (Negative); Leukocyte Esterase,Urine Large (Negative); Mucus,Urine Rare /hpf; Nitrite,Urine Negative (Negative); PH, Urine 6.5 (5.0-8.0); Protein,Urine 2+ (Negative); RBC,Urine 2 /hpf (0-5); Specific Gravity,Urine 1.011 (1.001-1.035); Squamous Epithelial Cell,Urine 8 /hpf (0-4); Urobilinogen,Urine <2.0 mg/dL (<2.0); WBC,Urine 25 /hpf (0-5)
[2022-10-05 03:18] LABS: Albumin 3.7 g/dL (3.5-5.0); Calcium 8.3 mg/dL (8.4-10.2); Potassium 4.3 mmol/L (3.5-5.1); Total Bilirubin 0.3 mg/dL (0.2-1.3); Total Protein 7.4 g/dL (6.3-8.2)
[2022-10-05 03:23] LABS: Basophils % (A) 0 %; Eosinophils # (A) 0.2 k/uL (0-0.7); Eosinophils % (A) 2 %; HCT 34.9 % (34.0-46.0); HGB 11.8 gm/dL (11.4-16.0); Lymphocytes # (A) 1.3 k/uL (1.0-4.8); Lymphocytes % (A) 15 %; MCH 28.5 pg (25.0-35.0); MCHC 33.7 g/dL (31.0-37.0); MCV 84.6 fL (80.0-100.0); Mean Platelet Volume 8.5; Monocytes # (A) 0.4 k/uL (0-1.0); Monocytes % (A) 5 %; Neutrophils # (A) 6.2 k/uL (1.3-7.7); Neutrophils % (A) 76 %; Platelet Count 282 k/uL (150-450); RBC 4.13 m/uL (3.80-5.40); RDW 14.6 % (11.5-15.5); WBC 8.2 k/uL (3.8-10.6)
[2022-10-05] MEDS ORDERED: NALOXONE 0.4 MG/ML 1 ML VIAL IV PRN (03:56)
[2022-10-05] MEDS ORDERED: HYDROcodone/APAP 5-325MG 1 EACH TAB PO PRN (03:56)
[2022-10-05] MEDS ORDERED: ONDANSETRON 4 MG/2 ML VIAL IVP PRN (03:56)
[2022-10-05] MEDS ORDERED: cefTRIAXone IN SWFI 1,000 MG/10 ML SYRINGE IVP ONE (04:00)
[2022-10-05 12:37] LABS: Glucose,Whole Blood 112 mg/dL (70-110)
--- NOTE | 2022-10-05 14:04 | P.HPIM ---
History of Present Illness H&P Date: 10/05/22 History of present illness: Patient is a 87-year-old lady who presented to the ER for altered mental status. Patient past medical history significant for coronary disease, diabetes mellitus, hypertension, hyperlipidemia who according to the family has been acting confused for the last couple of days. There was no cough without any fever or chills. There was no complain of any nausea or vomiting. Family notices patient urine was very foul-smelling. There was no complain of any cough or shortness of breath. Patient was worked up in the ER, initial lab work done showed patient to have us white count of 8.2, hemoglobin 11.8, platelet count 282, sodium 139, potassium 4.3, BUN 19, creatinine 0.85, calcium 8.3. UA was done and showed leukocyte esterase being positive, urine white count was also elevated, patient was started on IV antibiotics and was admitted for further evaluation and treatment REVIEW OF SYSTEMS: CONSTITUTIONAL: No fever, no malaise, no fatigue. HEENT: Has baseline blindness CARDIOVASCULAR: No chest pain, orthopnea, PND, no palpitations, no syncope. PULMONARY: No shortness of breath, no cough, no hemoptysis. GASTROINTESTINAL: No diarrhea, no nausea, no vomiting, no abdominal pain. NEUROLOGICAL: No headaches, no weakness, no numbness. HEMATOLOGICAL: Denies any bleeding or petechiae. GENITOURINARY: As mentioned in HPI MUSCULOSKELETAL/RHEUMATOLOGICAL: Denies any joint pain, swelling, or any muscle pain. ENDOCRINE: Denies any polyuria or polydipsia. The rest of the 14-point review of systems is negative. PHYSICAL EXAMINATION: GENERAL: The patient is alert self place and person, not in any acute distress. Well developed, well nourished. HEENT: Patient is legally blind CARDIOVASCULAR: S1 and S2 present. No murmurs, rubs, or gallops. PULMONARY: Chest is clear to auscultation, no wheezing or crackles. ABDOMEN: Soft, nontender, nondistended, normoactive bowel sounds. No palpable organomegaly. MUSCULOSKELETAL: Left [id number] amputation EXTREMITIES: No cyanosis, clubbing, or pedal edema. NEUROLOGICAL: Gross neurological examination did not reveal any focal deficits. SKIN: No rashes. Assessment UTI Acute metabolic encephalopathy Coronary artery disease diabetes mellitus Hypertension Hyperlipidemia Hypothyroidism Chronic pain Plan; Monitor vital signs monitor CBC Monitor CMP Follow-up on blood cultures Follow-up urine cultures Continue IV Rocephin Resume home meds Consult ID DVT prophylaxis: 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, dysphagia,esophageal strictures with dilation, hiatal hernia, L eye diabetic retinopathy/R eye blindness, bilateral [place], UTIS/urinary leakage, past bilateral feet sores/os teomylitis, generalized pain, bilateral carpal tunnel syndrome, vertigo, hypothyroid, anemia History of Any Multi-Drug Resistant Organisms: MRSA Date of last positivie culture/infection: 07/24/21 MDRO Source:: MRSA FOOT Past Surgical History: Bladder Surgery, Cholecystectomy, Coronary Bypass/CABG, Heart Catheterization, Hysterectomy Additional Past Surgical History / Comment(s): 2007 CABG 4 vessel, EGDs with dilations, colonoscopies, cataract removal, D&C, bladder suspension, PICC, loop recorder, toe amputation may 2021, left AKA Past Anesthesia/Blood Transfusion Reactions: Motion Sickness, Postoperative Nausea & Vomiting (PONV) Past Psychological History: No Psychological Hx Reported Smoking Status: Never smoker Past Alcohol Use History: None Reported Past Drug Use History: None Reported - Past Family History Father Family Medical History: Liver Disease Additional Family Medical History / Comment(s): Father of cirrhosis. He was a drinker. Mother History Unknown: Yes Family Medical History: Unable to Obtain Additional Family Medical History / Comment(s): Pt states she does not know her mother's medical history, but knows she at the age of 62 yrs.. Son(s) Family Medical History: Unable to Obtain, Renal Disease Daughter(s) Family Medical History: Cancer Medications and Allergies Home Medications Medication Instructions Recorded Confirmed Type Atorvastatin [Lipitor] 40 mg PO HS 12/02/20 10/05/22 History Cholecalciferol [Vitamin D3 (25 50 mcg PO DAILY 07/24/21 10/05/22 History Mcg = 1000 Iu)] Cranberry Fruit Extract [Cranberry] 500 mg PO DAILY 07/24/21 10/05/22 History Ibuprofen 600 mg PO Q6H PRN 12/16/21 10/05/22 History Insulin Aspart [NovoLOG Flexpen] See Protocol SQ AC-TID 12/16/21 10/05/22 History Acetaminophen Tab [Tylenol] 500 mg PO Q6H PRN 04/29/22 10/05/22 History Clopidogrel Bisulfate [Clopidogrel] 75 mg PO DAILY 04/29/22 10/05/22 History Metoprolol Tartrate [Lopressor] 50 mg PO BID PRN 04/29/22 10/05/22 History Omeprazole [PriLOSEC] 20 mg PO DAILY 04/29/22 10/05/22 History Insulin Glargine,Hum.rec.anlog 15 units SQ HS #0 05/04/22 10/05/22 Rx [Lantus Solostar Pen] Levothyroxine Sodium [Synthroid] 50 mcg PO DAILY@0630 #30 tab 05/04/22 10/05/22 Rx Lisinopril-Hctz 20-12.5 mg 1 tab PO DAILY 10/05/22 10/05/22 History [Zestoretic 20-12.5] NIFEdipine XL [Procardia Xl] 30 mg PO DAILY 10/05/22 10/05/22 History Allergies Allergy/AdvReac Type Severity Reaction Status Date / Time aspirin Allergy Rash/Hives Verified 10/05/22 07:29 fish derived Allergy Rash/Hives Verified 10/05/22 07:29 Iodinated Contrast Media Allergy Rash/Hives Verified 10/05/22 07:29 [Iodinated Contrast Media - IV Dye] Iodine and Iodide Containing Allergy Rash/Hives Verified 10/05/22 07:29 Produc shellfish derived [Shellfish] Allergy Rash/Hives Verified 10/05/22 07:29 sulfamethoxazole Allergy Itching Verified 10/05/22 07:29 [From Bactrim] trimethoprim [From Bactrim] Allergy Itching Verified 10/05/22 07:29 Physical Exam Vitals: Vital Signs Temp Pulse Resp BP Pulse Ox 10/05/22 09:35 97.5 F L 10/05/22 08:14 64 18 172/88 98 10/05/22 06:54 70 18 170/60 98 10/05/22 05:13 61 18 175/79 98 10/05/22 01:32 98.1 F 58 L 16 129/86 Intake and Output 10/04/22 10/05/22 10/05/22 22:59 06:59 14:59 Other: Weight 56.699 kg Results CBC & Chem 7: 10/05/22 02:57 10/05/22 02:57 Labs: Abnormal Lab Results - Last 24 Hours (Table) 10/05/22 10/05/22 10/05/22 Range/Units 01:23 02:57 12:36 BUN 19 H (7-17) mg/dL Glucose 194 H (74-99) mg/dL POC Glucose (mg/dL) 112 H (70-110) mg/dL Calcium 8.3 L (8.4-10.2) mg/dL Urine Protein 2+ H (Negative) Urine Glucose (UA) Trace H (Negative) Ur Leukocyte Esterase Large H (Negative) Urine WBC 25 H (0-5) /hpf Urine WBC Clumps Rare H (None) /hpf Ur Squamous Epith Cells 8 H (0-4) /hpf Urine Bacteria Rare H (None) /hpf Hyaline Casts 4 H (0-2) /lpf Urine Mucus Rare H (None) /hpf Microbiology - Last 24 Hours (Table) 10/05/22 01:23 Urine Culture - Preliminary Urine,Voided
[2022-10-05 16:44] LABS: Glucose,Whole Blood 206 mg/dL (70-110)
[2022-10-05 20:37] LABS: Glucose,Whole Blood 273 mg/dL (70-110)
[2022-10-05] MEDS: INSULIN DETEMIR (LEVEMIR) 100 UNIT/ML SYR SQ SCH (20:54)
[2022-10-05] MEDS: ATORVASTATIN 40 MG TAB PO SCH (20:54)
[2022-10-05] MEDS: METOPROLOL TARTRATE 50 MG TAB PO SCH (20:54)
--- NOTE | 2022-10-05 22:49 | P.CONS ---
History of Present Illness - Reason for Consult Consult date: 10/05/22 Urinary tract infection Requesting physician: Geovany Vera - Chief Complaint Mental status changes x one day - History of Present Illness Patient is a 87-year-old female with a past medical history. For coronary disease CVA TIA diabetes mellitus hypertension hyperlipidemia history of diabetic foot infection requiring amputation of the left leg patient was brought into the ER for evaluation of mental status changes apparently the patient has been acting confused for the last few days no clear history of any fever or any chills no nausea no vomiting no abdominal pain or any diarrhea patient family noticed patient urine was very foul-smelling and concentrated with the symptoms the patient was evaluated by ER physician on arrival to the ER the patient was afebrile and no fever has been recorded patient not hypoxic or need for supplemental oxygen white count was normal BUN was mildly elevated patient did have a positive UA with large leukocyte esterase 25 WBC patient received a dose of Rocephin in the ER admitted to the hospital infectious disease was consulted for further management of antibiotic therapy patient overall not a very good historian so most information has been extracted from review the chart talking nursing staff patient also have a wound on the right medial ankle area however the patient did not mention or report any pain to the area or any foul-smelling drainage Review of Systems Positive points has been mentioned in HPI complete review could not be obtained because of his underlying mental status 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, dysphagia,esophageal strictures with dilation, hiatal hernia, L eye diabetic retinopathy/R eye blindness, bilateral [place], UTIS/urinary leakage, past bilateral feet sores/osteomylitis, generalized pain, bilateral carpal tunnel syndrome, vertigo, hypothyroid, anemia History of Any Multi-Drug Resistant Organisms: MRSA Year Discovered:: 07/24/21 MDRO Source:: MRSA FOOT Past Surgical History: Bladder Surgery, Cholecystectomy, Coronary Bypass/CABG, Heart Catheterization, Hysterectomy Additional Past Surgical History / Comment(s): 2007 CABG 4 vessel, EGDs with dilations, colonoscopies, cataract removal, D&C, bladder suspension, PICC, loop recorder, toe amputation may 2021, left AKA Past Anesthesia/Blood Transfusion Reactions: Motion Sickness, Postoperative Nausea & Vomiting (PONV) Past Psychological History: No Psychological Hx Reported Smoking Status: Never smoker Past Alcohol Use History: None Reported Past Drug Use History: None Reported - Past Family History Father Family Medical History: Liver Disease Additional Family Medical History / Comment(s): Father of cirrhosis. He was a drinker. Mother History Unknown: Yes Family Medical History: Unable to Obtain Additional Family Medical History / Comment(s): Pt states she does not know her mother's medical history, but knows she at the age of 62 yrs.. Son(s) Family Medical History: Unable to Obtain, Renal Disease Daughter(s) Family Medical History: Cancer Medications and Allergies Home Medications Medication Instructions Recorded Confirmed Type Atorvastatin [Lipitor] 40 mg PO HS 12/02/20 10/05/22 History Cholecalciferol [Vitamin D3 (25 50 mcg PO DAILY 07/24/21 10/05/22 History Mcg = 1000 Iu)] Cranberry Fruit Extract [Cranberry] 500 mg PO DAILY 07/24/21 10/05/22 History Ibuprofen 600 mg PO Q6H PRN 12/16/21 10/05/22 History Insulin Aspart [NovoLOG Flexpen] See Protocol SQ AC-TID 12/16/21 10/05/22 History Acetaminophen Tab [Tylenol] 500 mg PO Q6H PRN 04/29/22 10/05/22 History Clopidogrel Bisulfate [Clopidogrel] 75 mg PO DAILY 04/29/22 10/05/22 History Metoprolol Tartrate [Lopressor] 50 mg PO BID PRN 04/29/22 10/05/22 History Omeprazole [PriLOSEC] 20 mg PO DAILY 04/29/22 10/05/22 History Insulin Glargine,Hum.rec.anlog 15 units SQ HS #0 05/04/22 10/05/22 Rx [Lantus Solostar Pen] Levothyroxine Sodium [Synthroid] 50 mcg PO DAILY@0630 #30 tab 05/04/22 10/05/22 Rx Lisinopril-Hctz 20-12.5 mg 1 tab PO DAILY 10/05/22 10/05/22 History [Zestoretic 20-12.5] NIFEdipine XL [Procardia Xl] 30 mg PO DAILY 10/05/22 10/05/22 History Allergies Allergy/AdvReac Type Severity Reaction Status Date / Time aspirin Allergy Rash/Hives Verified 10/05/22 07:29 fish derived Allergy Rash/Hives Verified 10/05/22 07:29 Iodinated Contrast Media Allergy Rash/Hives Verified 10/05/22 07:29 [Iodinated Contrast Media - IV Dye] Iodine and Iodide Containing Allergy Rash/Hives Verified 10/05/22 07:29 Produc shellfish derived [Shellfish] Allergy Rash/Hives Verified 10/05/22 07:29 sulfamethoxazole Allergy Itching Verified 10/05/22 07:29 [From Bactrim] trimethoprim [From Bactrim] Allergy Itching Verified 10/05/22 07:29 Physical Exam Vitals: Vital Signs Temp Pulse Resp BP Pulse Ox 10/05/22 09:35 97.5 F L 10/05/22 08:14 64 18 172/88 98 10/05/22 06:54 70 18 170/60 98 10/05/22 05:13 61 18 175/79 98 10/05/22 01:32 98.1 F 58 L 16 129/86 Intake and Output 10/04/22 10/05/22 10/05/22 22:59 06:59 14:59 Other: Weight 56.699 kg GENERAL DESCRIPTION: Elderly female lying in bed, no distress. No tachypnea or accessory muscle of respiration use. HEENT: Shows Pallor , no scleral icterus. Oral mucous membrane is dry. No pharyngeal erythema or thrush NECK: Trachea central, no thyromegaly. LUNGS: Unlabored breathing. Clear to auscultation anteriorly. No wheeze or crackle. HEART: S1, S2, regular rate and rhythm. No loud murmur ABDOMEN: Soft, no tenderness , guarding or rigidity, no organomegaly EXTREMITIES: Right foot medial aspect did have a wound minimal slough no significant surrounding redness or drainage SKIN: No rash, no masses palpable. NEUROLOGICAL: The patient is awake, alert, very hard of hearing orientation could not be determined Results CBC & Chem 7: 10/05/22 02:57 10/05/22 02:57 Labs: Abnormal Lab Results - Last 24 Hours (Table) 10/05/22 10/05/22 Range/Units 01:23 02:57 BUN 19 H (7-17) mg/dL Glucose 194 H (74-99) mg/dL Calcium 8.3 L (8.4-10.2) mg/dL Urine Protein 2+ H (Negative) Urine Glucose (UA) Trace H (Negative) Ur Leukocyte Esterase Large H (Negative) Urine WBC 25 H (0-5) /hpf Urine WBC Clumps Rare H (None) /hpf Ur Squamous Epith Cells 8 H (0-4) /hpf Urine Bacteria Rare H (None) /hpf Hyaline Casts 4 H (0-2) /lpf Urine Mucus Rare H (None) /hpf Microbiology - Last 24 Hours (Table) 10/05/22 01:23 Urine Culture - Preliminary Urine,Voided Assessment and Plan Plan: 1patient presented to hospital mental status changes confusion which is likely multifactorial in this patient who did have a positive UA and history of foul- smelling cloudy urine likely component of UTI from enteric gram-negative pathogen. 2patient did have right ankle/foot area wound which does not look infected and no evidence of any cellulitis. 3Rocephin 1 g daily while waiting for the culture to finalize 4-local wound care to the right ankle foot wound with dry Aquacel silver dressing to be changed to 48-hour We will follow on clinical condition and cultures to further adjust medication if needed Thank you for this consultation we will follow the patient along with you Time with Patient: Greater than 30
[2022-10-06 06:21] LABS: Glucose,Whole Blood 141 mg/dL (70-110)
[2022-10-06] MEDS: PANTOPRAZOLE 40 MG TABLET PO SCH (06:34)
[2022-10-06] MEDS: LEVOTHYROXINE 50 MCG TAB PO SCH (06:34)
[2022-10-06] MEDS: CHOLECALCIFEROL 25 MCG (1000 IU) TABLET PO SCH (08:05)
[2022-10-06] MEDS: METOPROLOL TARTRATE 50 MG TAB PO SCH ×2 (08:06→21:33)
[2022-10-06] MEDS: CLOPIDOGREL 75 MG TAB PO SCH (08:06)
[2022-10-06] MEDS: LISINOPRIL-HCTZ 20-12.5 MG 1 EACH TAB PO SCH (08:06)
[2022-10-06] MEDS ORDERED: NIFEdipine XL 30 MG TAB.ER.24 PO SCH (09:00)
[2022-10-06 09:55] LABS: African American GFR (CKD) 57.7 (60.0-200.0); Anion Gap 15.9 mmol/L (10.00-18.00); BUN/Creat Ratio 23.92 Ratio (12.00-20.00); Blood Urea Nitrogen 24.4 mg/dL (9.0-27.0); Calcium 8.5 mg/dL (8.7-10.3); Carbon Dioxide 17.6 mmol/L (20.0-27.5); Non-African American GFR(CKD) 49.8 (60.0-200.0); Potassium 4.4 mmol/L (3.5-5.5)
[2022-10-06] MEDS: ACETAMINOPHEN TAB 325 MG TAB PO PRN (10:03)
[2022-10-06 10:33] LABS: Basophils # (A) 0.03 X 10*3/uL (0.00-0.10); Basophils % (A) 0.4 %; Eosinophils # (A) 0.15 X 10*3/uL (0.04-0.35); HCT 31.1 % (37.2-46.3); HGB 10.1 g/dL (12.0-15.0); Immature Grans, Automated 0.3 %; Lymphocytes # (A) 1.13 X 10*3/uL (0.90-5.00); Lymphocytes % (A) 15.4 %; MCHC 32.5 g/dL (32.0-37.0); MCV 86.1 fL (80.0-97.0); Mean Platelet Volume 10.9 fL (9.5-12.2); Monocytes # (A) 0.66 X 10*3/uL (0.20-1.00); NRBC Per 100 WBC 0 /100 WBCS (0.0-0.0); Neutrophils # (A) 5.33 X 10*3/uL (1.80-7.70); Neutrophils % (A) 72.9 %; Platelet Count 287 X 10*3/uL (140-440); RBC 3.61 X 10*6/uL (4.10-5.20); RDW 14.4 % (11.5-14.5); WBC 7.32 X 10*3/uL (4.50-10.00)
[2022-10-06 11:42] LABS: Glucose,Whole Blood 236 mg/dL (70-110)
[2022-10-06] MEDS ORDERED: NIFEdipine XL 30 MG TAB.ER.24 PO STA (13:01)
--- NOTE | 2022-10-06 13:07 | P.PN ---
Subjective Patient is a 87-year-old lady who presented to the ER for altered mental status. Patient past medical history significant for coronary disease, diabetes mellitus, hypertension, hyperlipidemia who according to the family has been acting confused for the last couple of days. There was no cough without any fever or chills. There was no complain of any nausea or vomiting. Family notices patient urine was very foul-smelling. There was no complain of any cough or shortness of breath. Patient was worked up in the ER, initial lab work done showed patient to have us white count of 8.2, hemoglobin 11.8, platelet count 282, sodium 139, potassium 4.3, BUN 19, creatinine 0.85, calcium 8.3. UA was done and showed leukocyte esterase being positive, urine white count was also elevated, patient was started on IV antibiotics and was admitted for f urther evaluation and treatment 10/06/2022 Patient is awake and alert, as per note yesterday she was disoriented to place but today she was told me she is in the hospital and she has insight into her illness and follows commands, it looks like her mentation is improving. 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 Currently she is covered with ceftriaxone. Blood pressure elevated with systolic more than 180 therefore we increased her nifedipine 60 mg. Also her hemoglobin A1c is significantly elevated 9.3% she is CURRENTLY ON LEVEMIR 15 UNITS BEFORE WE GOING TO ADD METFORMIN 500 MG. HER CREATININE IS STABLE AT 1.0. Review of systems CONSTITUTIONAL: No fever, no malaise, no fatigue. HEENT: No recent visual problems or hearing problems. Denied any sore throat. CARDIOVASCULAR: No orthopnea, PND, no palpitations, no syncope. PULMONARY: No shortness of breath, no cough, no hemoptysis. GASTROINTESTINAL: No diarrhea, no nausea, no vomiting, no abdominal pain. Normoactive bowel sounds. NEUROLOGICAL: No headaches, no weakness, no numbness. Active Medications Generic Name Dose Route Start Last Admin Trade Name Freq PRN Reason Stop Dose Admin Acetaminophen 650 mg 10/05/22 03:56 10/06/22 10:03 Acetaminophen Tab 325 Mg Tab PO 650 mg Q6HR PRN Administration Mild Pain or Fever > 100.5 Hydrocodone Bitart/Acetaminophen 1 each 10/05/22 03:56 10/05/22 19:53 Hydrocodone/Apap 5-325mg 1 Each Tab PO 1 each Q4HR PRN Administration Moderate Pain (Scale 4 to 6) Atorvastatin Calcium 40 mg 10/05/22 21:00 10/05/22 20:54 Atorvastatin 40 Mg Tab PO 40 mg HS [facility] Administration Cholecalciferol 50 mcg 10/06/22 09:00 10/06/22 08:05 Cholecalciferol 25 Mcg (1000 Iu) Tablet PO 50 mcg DAILY [facility] Administration Clopidogrel Bisulfate 75 mg 10/06/22 09:00 10/06/22 08:06 Clopidogrel 75 Mg Tab PO 75 mg DAILY [facility] Administration Lisinopril/HCTZ 1 each 10/06/22 09:00 10/06/22 08:06 Lisinopril-Hctz 20-12.5 Mg 1 Each Tab PO 1 each DAILY [facility] Administration Heparin Sodium (Porcine) 5,000 unit 10/06/22 21:00 Heparin Sodium,Porcine/Pf 5,000 Unit/0.5 Ml Syringe SQ Q12HR [facility] Ceftriaxone Sodium 1 gm/ 50 mls @ 100 mls/hr 10/06/22 09:00 Sodium Chloride IVPB Q24HR [facility] Protocol Insulin Detemir 15 unit 10/05/22 21:00 10/05/22 20:54 Insulin Detemir (Levemir) 100 Unit/Ml Syr SQ 15 unit HS [facility] Administration Levothyroxine Sodium 50 mcg 10/06/22 06:30 10/06/22 06:34 Levothyroxine 50 Mcg Tab PO 50 mcg DAILY@0630 [facility] Administration Metformin HCl 500 mg 10/06/22 12:57 Metformin 500 Mg Tab PO BID-W/MEALS [facility] Metoprolol Tartrate 50 mg 10/05/22 21:00 10/06/22 08:06 Metoprolol Tartrate 50 Mg Tab PO 50 mg BID [facility] Administration Naloxone HCl 0.2 mg 10/05/22 03:56 Naloxone 0.4 Mg/Ml 1 Ml Vial IV Q2M PRN Opioid Reversal Nifedipine 60 mg 10/07/22 09:00 Nifedipine Xl 60 Mg Tab.Er.24 PO DAILY [facility] Ondansetron HCl 4 mg 10/05/22 03:56 Ondansetron 4 Mg/2 Ml Vial IVP Q8HR PRN Nausea And Vomiting Pantoprazole Sodium 40 mg 10/06/22 07:30 10/06/22 06:34 Pantoprazole 40 Mg Tablet PO 40 mg [id number] [facility] Administration Objective - Vital Signs Vital signs: Vital Signs Temp 97.8 F 10/06/22 08:06 Pulse 63 10/06/22 08:06 Resp 19 10/06/22 08:06 BP 177/76 10/06/22 08:06 Pulse Ox 97 10/06/22 08:06 FiO2 Intake & Output 10/05/22 10/06/22 10/06/22 18:59 06:59 18:59 Intake Total 240 Balance 240 Weight 56.699 kg Intake: Oral 240 Other: Voiding Method Diaper Bedpan Bedpan External Catheter External Catheter External Catheter # Voids 4 2 # Bowel Movements 2 - Labs CBC & Chem 7: 10/06/22 05:36 10/06/22 05:36 Labs: Abnormal Lab Results - Last 24 Hours (Table) 10/05/22 10/05/22 10/06/22 Range/Units 16:42 20:28 05:36 RBC (4.10-5.20) X 10*6/uL Hgb (12.0-15.0) g/dL Hct (37.2-46.3) % Carbon Dioxide (20.0-27.5) mmol/L Est GFR (CKD-EPI)AfAm (60.0-200.0) Est GFR (CKD-EPI)NonAf (60.0-200.0) BUN/Creatinine Ratio (12.00-20.00) Ratio Glucose (70-110) mg/dL POC Glucose (mg/dL) 206 H 273 H (70-110) mg/dL Hemoglobin A1c 9.3 H (0.0-6.0) % Calcium (8.7-10.3) mg/dL 10/06/22 10/06/22 10/06/22 Range/Units 05:36 05:36 06:19 RBC 3.61 L (4.10-5.20) X 10*6/uL Hgb 10.1 L (12.0-15.0) g/dL Hct 31.1 L (37.2-46.3) % Carbon Dioxide 17.6 L (20.0-27.5) mmol/L Est GFR (CKD-EPI)AfAm 57.7 L (60.0-200.0) Est GFR (CKD-EPI)NonAf 49.8 L (60.0-200.0) BUN/Creatinine Ratio 23.92 H (12.00-20.00) Ratio Glucose 161 H (70-110) mg/dL POC Glucose (mg/dL) 141 H (70-110) mg/dL Hemoglobin A1c (0.0-6.0) % Calcium 8.5 L (8.7-10.3) mg/dL 10/06/22 Range/Units 11:41 RBC (4.10-5.20) X 10*6/uL Hgb (12.0-15.0) g/dL Hct (37.2-46.3) % Carbon Dioxide (20.0-27.5) mmol/L Est GFR (CKD-EPI)AfAm (60.0-200.0) Est GFR (CKD-EPI)NonAf (60.0-200.0) BUN/Creatinine Ratio (12.00-20.00) Ratio Glucose (70-110) mg/dL POC Glucose (mg/dL) 236 H (70-110) mg/dL Hemoglobin A1c (0.0-6.0) % Calcium (8.7-10.3) mg/dL Microbiology - Last 24 Hours (Table) 10/05/22 04:57 Blood Culture - Preliminary Blood No Growth after 24 hours 10/05/22 04:42 Blood Culture - Preliminary Blood No Growth after 24 hours 10/05/22 01:23 Urine Culture - Preliminary Urine,Voided Assessment and Plan Assessment: UTI Acute metabolic encephalopathy, improved Hypertension, uncontrolled Diabetes mellitus with hyperglycemia, controlled on admission History of coronary artery disease Hyperlipidemia Hypothyroidism Chronic pain Plan: Continue with ceftriaxone follow-up urine culture ID team of the case Increase nifedipine and monitor blood sugar Metformin continue with Levemir 15 units in monitor glucose. Labs and medication were reviewed.. Continue same treatment. Continue with symptomatic treatment. Resume home medication. Monitor labs and vitals. DVT and GI prophylaxis. Further recommendations as per clinical course of the patient DVT prophylaxis: Subcutaneous heparin GI Prophylaxis: Ppi Prognosis is guarded
[2022-10-06] MEDS: metFORMIN 500 MG TAB PO SCH ×2 (13:33→16:30)
[2022-10-06 16:30] LABS: Glucose,Whole Blood 241 mg/dL (70-110)
[2022-10-06 16:33] VITALS: BMI 24.4
[2022-10-06 21:09] LABS: Glucose,Whole Blood 269 mg/dL (70-110)
[2022-10-06] MEDS: HEPARIN SODIUM,PORCINE/PF 5,000 UNIT/0.5 ML SYRINGE SQ SCH (21:33)
[2022-10-06] MEDS: INSULIN DETEMIR (LEVEMIR) 100 UNIT/ML SYR SQ SCH (21:33)
[2022-10-06] MEDS: ATORVASTATIN 40 MG TAB PO SCH (21:33)
[2022-10-07 06:04] LABS: Glucose,Whole Blood 220 mg/dL (70-110)
[2022-10-07] MEDS: LEVOTHYROXINE 50 MCG TAB PO SCH (06:34)
[2022-10-07] MEDS: PANTOPRAZOLE 40 MG TABLET PO SCH (06:34)
[2022-10-07] MEDS: metFORMIN 500 MG TAB PO SCH ×2 (06:34→17:26)
[2022-10-07] MEDS: CHOLECALCIFEROL 25 MCG (1000 IU) TABLET PO SCH (08:34)
[2022-10-07] MEDS: CLOPIDOGREL 75 MG TAB PO SCH (08:34)
[2022-10-07] MEDS: METOPROLOL TARTRATE 50 MG TAB PO SCH ×2 (08:34→20:45)
[2022-10-07] MEDS: LISINOPRIL-HCTZ 20-12.5 MG 1 EACH TAB PO SCH (08:34)
[2022-10-07] MEDS: HEPARIN SODIUM,PORCINE/PF 5,000 UNIT/0.5 ML SYRINGE SQ SCH ×2 (08:34→20:47)
[2022-10-07 10:55] LABS: Basophils # (A) 0.04 X 10*3/uL (0.00-0.10); Basophils % (A) 0.5 %; Eosinophils # (A) 0.14 X 10*3/uL (0.04-0.35); Eosinophils % (A) 1.8 %; HGB 9.7 g/dL (12.0-15.0); Immature Grans, Automated 0.4 %; Lymphocytes # (A) 1.16 X 10*3/uL (0.90-5.00); Lymphocytes % (A) 14.6 %; MCH 27.9 pg (27.0-32.0); MCHC 32.3 g/dL (32.0-37.0); MCV 86.2 fL (80.0-97.0); Mean Platelet Volume 11.3 fL (9.5-12.2); Monocytes # (A) 0.58 X 10*3/uL (0.20-1.00); Monocytes % (A) 7.3 %; NRBC Per 100 WBC 0 /100 WBCS (0.0-0.0); Neutrophils % (A) 75.4 %; Platelet Count 299 X 10*3/uL (140-440); RBC 3.48 X 10*6/uL (4.10-5.20); RDW 14.3 % (11.5-14.5); WBC 7.95 X 10*3/uL (4.50-10.00)
[2022-10-07 11:10] LABS: Glucose,Whole Blood 238 mg/dL (70-110)
[2022-10-07 11:23] LABS: African American GFR (CKD) 59.1 (60.0-200.0); Anion Gap 14.8 mmol/L (10.00-18.00); BUN/Creat Ratio 25.3 Ratio (12.00-20.00); Blood Urea Nitrogen 25.3 mg/dL (9.0-27.0); Calcium 8.2 mg/dL (8.7-10.3); Carbon Dioxide 17.2 mmol/L (20.0-27.5); Potassium 4.6 mmol/L (3.5-5.5)
--- NOTE | 2022-10-07 11:30 | P.PN ---
Subjective Progress Note Date: 10/06/22 Principal diagnosis: UTI Patient is a 87-year-old female with a past medical history significant for coronary disease CVA TIA diabetes mellitus hypertension hyperlipidemia history of diabetic foot infection requiring amputation of the left leg patient was brought into the ER for evaluation of mental status changes apparently the patient has been acting confused , patient also noticed to have a foul-smelling cloudy urine by the family On today's evaluation that is 10/06/2022, the patient denies having any fever or any chills, the patient is slightly more awake and alert today breathing comfortably on room air or nausea no vomiting no abdominal pain no diarrhea Objective - Vital Signs Vital signs: Vital Signs Temp 97.8 F 10/06/22 08:06 Pulse 63 10/06/22 08:06 Resp 19 10/06/22 08:06 BP 177/76 10/06/22 08:06 Pulse Ox 97 10/06/22 08:06 FiO2 Intake & Output 10/05/22 10/06/22 10/06/22 18:59 06:59 18:59 Intake Total 240 Balance 240 Weight 56.699 kg Intake: Oral 240 Other: Voiding Method Diaper Bedpan Bedpan External Catheter External Catheter External Catheter # Voids 4 2 # Bowel Movements 2 - Exam GENERAL DESCRIPTION: An elderly female lying in bed in no distress RESPIRATORY SYSTEM: Unlabored breathing , decreased breath sounds at bases HEART: S1 S2 regular rate and rhythm , ABDOMEN: Soft , no tenderness EXTREMITIES: Right ankle/foot wound is currently dressed - Labs CBC & Chem 7: 10/07/22 06:32 10/07/22 06:32 Labs: Abnormal Lab Results - Last 24 Hours (Table) 10/05/22 10/05/22 10/05/22 Range/Units 12:36 16:42 20:28 RBC (4.10-5.20) X 10*6/uL Hgb (12.0-15.0) g/dL Hct (37.2-46.3) % Carbon Dioxide (20.0-27.5) mmol/L Est GFR (CKD-EPI)AfAm (60.0-200.0) Est GFR (CKD-EPI)NonAf (60.0-200.0) BUN/Creatinine Ratio (12.00-20.00) Ratio Glucose (70-110) mg/dL POC Glucose (mg/dL) 112 H 206 H 273 H (70-110) mg/dL Hemoglobin A1c (0.0-6.0) % Calcium (8.7-10.3) mg/dL 10/06/22 10/06/22 10/06/22 Range/Units 05:36 05:36 05:36 RBC 3.61 L (4.10-5.20) X 10*6/uL Hgb 10.1 L (12.0-15.0) g/dL Hct 31.1 L (37.2-46.3) % Carbon Dioxide 17.6 L (20.0-27.5) mmol/L Est GFR (CKD-EPI)AfAm 57.7 L (60.0-200.0) Est GFR (CKD-EPI)NonAf 49.8 L (60.0-200.0) BUN/Creatinine Ratio 23.92 H (12.00-20.00) Ratio Glucose 161 H (70-110) mg/dL POC Glucose (mg/dL) (70-110) mg/dL Hemoglobin A1c 9.3 H (0.0-6.0) % Calcium 8.5 L (8.7-10.3) mg/dL 10/06/22 10/06/22 Range/Units 06:19 11:41 RBC (4.10-5.20) X 10*6/uL Hgb (12.0-15.0) g/dL Hct (37.2-46.3) % Carbon Dioxide (20.0-27.5) mmol/L Est GFR (CKD-EPI)AfAm (60.0-200.0) Est GFR (CKD-EPI)NonAf (60.0-200.0) BUN/Creatinine Ratio (12.00-20.00) Ratio Glucose (70-110) mg/dL POC Glucose (mg/dL) 141 H 236 H (70-110) mg/dL Hemoglobin A1c (0.0-6.0) % Calcium (8.7-10.3) mg/dL Microbiology - Last 24 Hours (Table) 10/05/22 04:57 Blood Culture - Preliminary Blood No Growth after 24 hours 10/05/22 04:42 Blood Culture - Preliminary Blood No Growth after 24 hours 10/05/22 01:23 Urine Culture - Preliminary Urine,Voided Assessment and Plan (1) UTI (urinary tract infection) Current Visit: Yes Status: Acute Code(s): N39.0 - URINARY TRACT INFECTION, SITE NOT SPECIFIED SNOMED Code(s): 51665882 Plan: 1patient presented to hospital mental status changes confusion which is likely multifactorial in this patient who did have a positive UA and history of foul- smelling cloudy urine likely component of UTI from enteric gram-negative pathogen. 2patient did have right ankle/foot area wound which does not look infected and no evidence of any cellulitis. 3patient to continue with Rocephin 1 g daily while waiting for the culture to finalize 4-local wound care to the right ankle foot wound with dry Aquacel silver dressing to be changed to 48-hour Time with Patient: Less than 30
--- NOTE | 2022-10-07 11:31 | P.PN ---
Subjective Progress Note Date: 10/07/22 Principal diagnosis: UTI Patient is a 87-year-old female with a past medical history significant for coronary disease CVA TIA diabetes mellitus hypertension hyperlipidemia history of diabetic foot infection requiring amputation of the left leg patient was brought into the ER for evaluation of mental status changes apparently the patient has been acting confused , patient also noticed to have a foul-smelling cloudy urine by the family On today's evaluation that is 10/07/2022, the patient remains to be afebrile, the patient is awake and alert this morning, the patient is breathing comfortably on room air or nausea no vomiting no abdominal pain no diarrhea Objective - Vital Signs Vital signs: Vital Signs Temp 98.0 F 10/07/22 07:41 Pulse 66 10/07/22 07:41 Resp 16 10/07/22 07:41 BP 136/53 10/07/22 07:41 Pulse Ox 96 10/07/22 07:41 FiO2 Intake & Output 10/06/22 10/07/22 10/07/22 18:59 06:59 18:59 Intake Total 958 200 Balance 958 200 Weight 56.699 kg Intake: Oral 958 200 Other: Voiding Method Bedpan Bedpan External Catheter External Catheter # Voids 2 2 # Bowel Movements 0 0 - Exam GENERAL DESCRIPTION: An elderly female lying in bed in no distress RESPIRATORY SYSTEM: Unlabored breathing , decreased breath sounds at bases HEART: S1 S2 regular rate and rhythm , ABDOMEN: Soft , no tenderness EXTREMITIES: Right ankle/foot wound is currently dressed - Labs CBC & Chem 7: 10/07/22 06:32 10/07/22 06:32 Labs: Abnormal Lab Results - Last 24 Hours (Table) 10/06/22 10/06/22 10/06/22 Range/Units 05:36 05:36 05:36 RBC 3.61 L (4.10-5.20) X 10*6/uL Hgb 10.1 L (12.0-15.0) g/dL Hct 31.1 L (37.2-46.3) % Carbon Dioxide 17.6 L (20.0-27.5) mmol/L Est GFR (CKD-EPI)AfAm 57.7 L (60.0-200.0) Est GFR (CKD-EPI)NonAf 49.8 L (60.0-200.0) BUN/Creatinine Ratio 23.92 H (12.00-20.00) Ratio Glucose 161 H (70-110) mg/dL POC Glucose (mg/dL) (70-110) mg/dL Hemoglobin A1c 9.3 H (0.0-6.0) % Calcium 8.5 L (8.7-10.3) mg/dL 10/06/22 10/06/22 10/06/22 Range/Units 11:41 16:29 21:07 RBC (4.10-5.20) X 10*6/uL Hgb (12.0-15.0) g/dL Hct (37.2-46.3) % Carbon Dioxide (20.0-27.5) mmol/L Est GFR (CKD-EPI)AfAm (60.0-200.0) Est GFR (CKD-EPI)NonAf (60.0-200.0) BUN/Creatinine Ratio (12.00-20.00) Ratio Glucose (70-110) mg/dL POC Glucose (mg/dL) 236 H 241 H 269 H (70-110) mg/dL Hemoglobin A1c (0.0-6.0) % Calcium (8.7-10.3) mg/dL 10/07/22 Range/Units 06:03 RBC (4.10-5.20) X 10*6/uL Hgb (12.0-15.0) g/dL Hct (37.2-46.3) % Carbon Dioxide (20.0-27.5) mmol/L Est GFR (CKD-EPI)AfAm (60.0-200.0) Est GFR (CKD-EPI)NonAf (60.0-200.0) BUN/Creatinine Ratio (12.00-20.00) Ratio Glucose (70-110) mg/dL POC Glucose (mg/dL) 220 H (70-110) mg/dL Hemoglobin A1c (0.0-6.0) % Calcium (8.7-10.3) mg/dL Microbiology - Last 24 Hours (Table) 10/05/22 04:57 Blood Culture - Preliminary Blood No Growth after 48 hours 10/05/22 04:42 Blood Culture - Preliminary Blood No Growth after 48 hours Assessment and Plan (1) UTI (urinary tract infection) Current Visit: Yes Status: Acute Code(s): N39.0 - URINARY TRACT INFECTION, SITE NOT SPECIFIED SNOMED Code(s): 31682802 Plan: 1patient presented to hospital mental status changes confusion which is likely multifactorial in this patient who did have a positive UA and history of foul- smelling cloudy urine likely component of UTI from enteric gram-negative pathoge n. 2patient did have right ankle/foot area wound which does not look infected and no evidence of any cellulitis. 3local wound care to the right ankle foot wound with dry Aquacel silver dressing to be changed to 48-hour 4-patient to continue with Rocephin 1 g daily while waiting for the culture to finalize and monitor clinical course closely Time with Patient: Less than 30
--- NOTE | 2022-10-07 12:57 | P.PN ---
Subjective Patient is a 87-year-old lady who presented to the ER for altered mental status. Patient past medical history significant for coronary disease, diabetes mellitus, hypertension, hyperlipidemia who according to the family has been acting confused for the last couple of days. There was no cough without any fever or chills. There was no complain of any nausea or vomiting. Family notices patient urine was very foul-smelling. There was no complain of any cough or shortness of breath. Patient was worked up in the ER, initial lab work done showed patient to have us white count of 8.2, hemoglobin 11.8, platelet count 282, sodium 139, potassium 4.3, BUN 19, creatinine 0.85, calcium 8.3. UA was done and showed leukocyte esterase being positive, urine white count was also elevated, patient was started on IV antibiotics and was admitted for f urther evaluation and treatment 10/06/2022 Patient is awake and alert, as per note yesterday she was disoriented to place but today she was told me she is in the hospital and she has insight into her illness and follows commands, it looks like her mentation is improving. 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 Currently she is covered with ceftriaxone. Blood pressure elevated with systolic more than 180 therefore we increased her nifedipine 60 mg. Also her hemoglobin A1c is significantly elevated 9.3% she is CURRENTLY ON LEVEMIR 15 UNITS BEFORE WE GOING TO ADD METFORMIN 500 MG. HER CREATININE IS STABLE AT 1.0. 10/07/2022 Patient is awake and alert but lethargic and she feels depressed and family re questing psych consult but patient denies suicidal ideation. She is improving on ceftriaxone and her urine culture still pending. She stated that this year she had yesterday has improved. Mentation is back to baseline No diarrhea since yesterday No abdominal pain or tenderness. I discussed the case with social work case manager today, possible she will need rehab placement Blood pressure better controlled on nifedipine 60 mg. Sugar still elevated therefore we increased her metformin and to 1000 twice a day. Possible discharge in 24-48 hours Objective - Vital Signs Vital signs: Vital Signs Temp 98.0 F 03/31/23 07:41 Pulse 66 10/07/22 07:41 Resp 16 10/07/22 07:41 BP 136/53 10/07/22 07:41 Pulse Ox 96 10/07/22 07:41 FiO2 Intake & Output 10/06/22 10/07/22 10/07/22 18:59 06:59 18:59 Intake Total 958 200 Balance 958 200 Weight 56.699 kg Intake: Oral 958 200 Other: Voiding Method Bedpan Bedpan Bedpan External Catheter External Catheter External Catheter # Voids 2 2 # Bowel Movements 0 0 - Exam GENERAL: The patient is alert and oriented x3, not in any acute distress. Well developed, well nourished. Lethargic HEENT: Pupils are round and equally reacting to light. EOMI. No scleral icterus. No conjunctival pallor. Normocephalic, atraumatic. No pharyngeal erythema. No thyromegaly. CARDIOVASCULAR: S1 and S2 present. No murmurs, rubs, or gallops. PULMONARY: Chest is clear to auscultation, no wheezing or crackles. ABDOMEN: Soft, nontender, nondistended, normoactive bowel sounds. No palpable organomegaly. MUSCULOSKELETAL: No joint swelling or deformity. -EXTREMITIES: No cyanosis, clubbing, or pedal edema. , Status post left AKA NEUROLOGICAL: Gross neurological examination did not reveal any focal deficits. SKIN: No rashes. no petechiae. - Labs CBC & Chem 7: 10/07/22 06:32 10/07/22 06:32 Labs: Abnormal Lab Results - Last 24 Hours (Table) 10/06/22 10/06/22 10/07/22 Range/Units 16:29 21:07 06:03 RBC (4.10-5.20) X 10*6/uL Hgb (12.0-15.0) g/dL Hct (37.2-46.3) % Carbon Dioxide (20.0-27.5) mmol/L Est GFR (CKD-EPI)AfAm (60.0-200.0) Est GFR (CKD-EPI)NonAf (60.0-200.0) BUN/Creatinine Ratio (12.00-20.00) Ratio Glucose (70-110) mg/dL POC Glucose (mg/dL) 241 H 269 H 220 H (70-110) mg/dL Calcium (8.7-10.3) mg/dL 10/07/22 10/07/22 10/07/22 Range/Units 06:32 06:32 11:08 RBC 3.48 L (4.10-5.20) X 10*6/uL Hgb 9.7 L (12.0-15.0) g/dL Hct 30.0 L (37.2-46.3) % Carbon Dioxide 17.2 L (20.0-27.5) mmol/L Est GFR (CKD-EPI)AfAm 59.1 L (60.0-200.0) Est GFR (CKD-EPI)NonAf 51.0 L (60.0-200.0) BUN/Creatinine Ratio 25.30 H (12.00-20.00) Ratio Glucose 272 H (70-110) mg/dL POC Glucose (mg/dL) 238 H (70-110) mg/dL Calcium 8.2 L (8.7-10.3) mg/dL Microbiology - Last 24 Hours (Table) 10/05/22 04:57 Blood Culture - Preliminary Blood No Growth after 48 hours 10/05/22 04:42 Blood Culture - Preliminary Blood No Growth after 48 hours Assessment and Plan Assessment: UTI Acute metabolic encephalopathy, improved Hypertension, uncontrolled Diabetes mellitus with hyperglycemia, controlled on admission History of coronary artery disease Hyperlipidemia Hypothyroidism Chronic pain Plan: Continue with ceftriaxone follow-up urine culture ID team of the case Increase nifedipine and monitor blood sugar Metformin continue with Levemir 15 units in monitor glucose. Labs and medication were reviewed.. Continue same treatment. Continue with symptomatic treatment. Resume home medication. Monitor labs and vitals. DVT and GI prophylaxis. Further recommendations as per clinical course of the patient DVT prophylaxis: Subcutaneous heparin GI Prophylaxis: Ppi Prognosis is guarded
--- NOTE | 2022-10-07 13:36 | P.CN ---
Psychiatric Consult - . Consult date: 10/07/22 Consult:: 10/07/22 13:35 IDENTIFYING DATA: This patient is a , retired 87 year old female with a significant history of CAD, Diabetes, and left above knee amputation who presented to the hospital on 10/05/2022 presenting with altered mental status. HISTORY OF PRESENT ILLNESS: The patient presented to the hospital on 10/05/2022 with a chief complaint of altered mental status. Patient was reportedly displaying significant confusion. There was also concern for foul smelling urine. The patient is noted to have a urinary tract infection. The patient's daughter Dinora expressed concern for her mother experiencing depression and wished for psychiatry to evaluate the patient. Upon evaluation by this provider, the patient is currently alert and oriented to person and place. She does identifies the year as "1922" however was agreeable and directable to identify the correct year as 2022. The patient is currently only reporting elevated anxiety. She is constantly reporting, "I am not sure if I am doing the right thing. Do I get out of the chair? Do I ask for help?" She states that she has been having difficulty coping with being in the hospital. She was agreeable to have this provider speak with her daughter Dinora. Collateral information from her daughter reveals that this patient has been dealing with worsening depression since the passing of the patient's 2 years ago. She reports that the patient has constantly been irritable, she would be crying often, poor appetite, poor sleep, poor hygiene and grooming. The patient has endorsed a desire to not be present in this world anymore however is vehemently denying any current suicidal or homicidal ideation, intention, and/or plan. The patient's daughter reports that she has previously attempted suicide twice in the distant past. The patient and the patient's daughter denies any history of auditory or visual hallucinations. The daughter reports the patient has had a history of periods of excessive energy (4 days max) and irritability but no history of impulsivity or increased goal-directed activity. The patient reportedly has had multiple caretakers however has had significant outbursts towards them and would at times fire them. PAST PSYCHIATRIC HISTORY: Patient has a history of depression and anxiety. Patient denies being on any psychiatric medications. Patient denies any previous psychiatric hospitalizations. Patient was previously open with therapy however as per daughter, the patient refused to delve into her problems beyond a superficial level. Patient's daughter reports that she has previously attempted suicide twice more than 50 years ago. PAST MEDICAL HISTORY: Past Medical History: Coronary Artery Disease (CAD), Chest Pain / Angina, COPD, CVA/TIA, Diabetes Mellitus, Eye Disorder, GERD/Reflux, Hyperlipidemia, Hypertension, Osteoarthritis (OA), Syncope, Thyroid Disorder Additional Past Medical History / Comment(s): NIDDM type II, neuropathy b ilateral hands, 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, dysphagia,esophageal strictures with dilation, hiatal hernia, L eye diabetic retinopathy/R eye blindness, bilateral [place], UTIS/urinary leakage, past bilateral feet sores/osteomylitis, generalized pain, bilateral carpal tunnel syndrome, vertigo, hypothyroid, anemia History of Any Multi-Drug Resistant Organisms: MRSA Date of last positivie culture/infection: 07/24/21 MDRO Source:: MRSA FOOT Past Surgical History: Bladder Surgery, Cholecystectomy, Coronary Bypass/CABG, Heart Catheterization, Hysterectomy Additional Past Surgical History / Comment(s): 2007 CABG 4 vessel, EGDs with dilations, colonoscopies, cataract removal, D&C, bladder suspension, PICC, loop recorder, toe amputation may 2021, left AKA Past Anesthesia/Blood Transfusion Reactions: Motion Sickness, Postoperative Nausea & Vomiting (PONV) Past Psychological History: No Psychological Hx Reported Smoking Status: Never smoker Past Alcohol Use History: None Reported Past Drug Use History: None Reported ALLERGIES: Allergies Allergy/AdvReac Type Severity Reaction Status Date / Time aspirin Allergy Rash/Hives Verified 10/05/22 07:29 fish derived Allergy Rash/Hives Verified 10/05/22 07:29 Iodinated Contrast Media Allergy Rash/Hives Verified 10/05/22 07:29 [Iodinated Contrast Media - IV Dye] Iodine and Iodide Containing Allergy Rash/Hives Verified 10/05/22 07:29 Produc shellfish derived [Shellfish] Allergy Rash/Hives Verified 10/05/22 07:29 sulfamethoxazole Allergy Itching Verified 10/05/22 07:29 [From Bactrim] trimethoprim [From Bactrim] Allergy Itching Verified 10/05/22 07:29 CHEMICAL DEPENDENCY HISTORY: No tobacco, alcohol, marijuana, or illicit drug use history. FAMILY PSYCHIATRIC/SUBSTANCE USE HISTORY: No reported psychiatric history. SOCIAL HISTORY: Patient was born and raised in [place], [place]. She is as of 2 years ago. Her was in the and they lived all over including in [place]. She is the mother of 5 children. Her family are supportive. MENTAL STATUS EXAM: General Appearance: Patient appears to be stated age is alert, pleasant, and cooperative. Patient appears to have fair hygiene and grooming wearing hospital gown with fair eye contact. Blind in her right eye. Left AKA. Behavior: Patient is seated upright in her chair without any agitated behavior. Speech: Patient's speech is fluent and nonpressured. Mood/Affect: Patient reports their mood is "I'm worried I'm not doing the right thing", affect is congruent and nervous. Suicidality/Homicidality: Patient denies having any suicidal or homicidal ideation intent or plan. Perceptions: Patient denies any visual hallucinations and denies any auditory hallucinations Though content/process: There is no evidence of any delusional thought content and thought process is linear and goal-directed. Memory and concentration: AAOx2. States year is 1923 but is directable. Identifies month and season approrpiately. Judgment and insight: Fair Laboratory Results WBC 7.95 X 10*3/uL (4.50-10.00) 10/07/22 06:32 RBC 3.48 X 10*6/uL (4.10-5.20) L 10/07/22 06:32 Hgb 9.7 g/dL (12.0-15.0) L 10/07/22 06:32 Hct 30.0 % (37.2-46.3) L 10/07/22 06:32 MCV 86.2 fL (80.0-97.0) 10/07/22 06:32 MCH 27.9 pg (27.0-32.0) 10/07/22 06:32 MCHC 32.3 g/dL (32.0-37.0) 10/07/22 06:32 RDW 14.3 % (11.5-14.5) 10/07/22 06:32 Plt Count 299 X 10*3/uL (140-440) 10/07/22 06:32 MPV 11.3 fL (9.5-12.2) 10/07/22 06:32 Immature Gran % (Auto) 0.4 % 10/07/22 06:32 Absolute Nucleated RBC 0 X 10*3/uL (0.00-0.00) 10/07/22 06:32 Neutrophils % 75.4 % 10/07/22 06:32 Lymphocytes % 14.6 % 10/07/22 06:32 Monocytes % 7.3 % 10/07/22 06:32 Eosinophils % 1.8 % 10/07/22 06:32 Basophils % 0.5 % 10/07/22 06:32 Immature Gran # 0.03 X 10*3/uL (0.00-0.04) 10/07/22 06:32 Neutrophils # 6.00 X 10*3/uL (1.80-7.70) 10/07/22 06:32 Lymphocytes # 1.16 X 10*3/uL (0.90-5.00) 10/07/22 06:32 Monocytes # 0.58 X 10*3/uL (0.20-1.00) 10/07/22 06:32 Eosinophils # 0.14 X 10*3/uL (0.04-0.35) 10/07/22 06:32 Basophils # 0.04 X 10*3/uL (0.00-0.10) 10/07/22 06:32 NRBC/100 WBC Diff 0 /100 WBCS (0.0-0.0) 10/07/22 06:32 Sodium 139 mmol/L (135-145) 10/07/22 06:32 Potassium 4.6 mmol/L (3.5-5.5) 10/07/22 06:32 Chloride 107 mmol/L (96-109) 10/07/22 06:32 Carbon Dioxide 17.2 mmol/L (20.0-27.5) L 10/07/22 06:32 Anion Gap 14.80 mmol/L (10.00-18.00) 10/07/22 06:32 BUN 25.3 mg/dL (9.0-27.0) 10/07/22 06:32 Creatinine 1.0 mg/dL (0.6-1.5) 10/07/22 06:32 Est GFR (CKD-EPI)AfAm 59.1 (60.0-200.0) L 10/07/22 06:32 Est GFR (CKD-EPI)NonAf 51.0 (60.0-200.0) L 10/07/22 06:32 BUN/Creatinine Ratio 25.30 Ratio (12.00-20.00) H 10/07/22 06:32 Glucose 272 mg/dL (70-110) H 10/07/22 06:32 POC Glucose (mg/dL) 238 mg/dL (70-110) H 10/07/22 11:08 POC Glu Inbound Customer Service Representative ID Rossana Monique 10/07/22 11:[address] Glu mg/dL 219 10/06/22 05:36 Hemoglobin A1c 9.3 % (0.0-6.0) H 10/06/22 05:36 Plasma Lactic Acid Evelio 1.4 mmol/L (0.7-2.0) 10/05/22 02:57 Calcium 8.2 mg/dL (8.7-10.3) L 10/07/22 06:32 Total Bilirubin 0.3 mg/dL (0.2-1.3) 10/05/22 02:57 AST 25 U/L (14-36) 10/05/22 02:57 ALT 22 U/L (4-34) 10/05/22 02:57 Alkaline Phosphatase 102 U/L (38-126) 10/05/22 02:57 Troponin I 0.016 ng/mL (0.000-0.034) 10/05/22 02:58 Total Protein 7.4 g/dL (6.3-8.2) 10/05/22 02:57 Albumin 3.7 g/dL (3.5-5.0) 10/05/22 02:57 Procalcitonin 0.08 ng/mL (0.02-0.09) 10/05/22 02:57 Urine Color Light Yellow 10/05/22 01:23 Urine Appearance Clear (Clear) 10/05/22 01:23 Urine pH 6.5 (5.0-8.0) 10/05/22 01:23 Ur Specific [place] 1.011 (1.001-1.035) 10/05/22 01:23 Urine Protein 2+ (Negative) H 10/05/22 01:23 Urine Glucose (UA) Trace (Negative) H 10/05/22 01:23 Urine Ketones Negative (Negative) 10/05/22 01:23 Urine Blood Negative (Negative) 10/05/22 01:23 Urine Nitrite Negative (Negative) 10/05/22 01:23 Urine Bilirubin Negative (Negative) 10/05/22 01:23 Urine Urobilinogen <2.0 mg/dL (<2.0) 10/05/22 01:23 Ur Leukocyte Esterase Large (Negative) H 10/05/22 01:23 Urine RBC 2 /hpf (0-5) 10/05/22 01:23 Urine WBC 25 /hpf (0-5) H 10/05/22 01:23 Urine WBC Clumps Rare /hpf (None) H 10/05/22 01:23 Ur Squamous Epith Cells 8 /hpf (0-4) H 10/05/22 01:23 Urine Bacteria Rare /hpf (None) H 10/05/22 01:23 Hyaline Casts 4 /lpf (0-2) H 10/05/22 01:23 Urine Mucus Rare /hpf (None) H 10/05/22 01:23 IMPRESSIONS: Major Depressive Disorder, recurrent, moderate - Exacerbated by chronic medical problems and grief at loss of UTI PLAN: -Continue your medical management. -At this time patient DOES NOT meet criteria for inpatient psychiatric admission. -Delirium precautions recommended with patient including - avoiding use of narcotics and [employer] sedatives, limit anticholinergic medications when possible, frequent re-orientation, minimize use of restraints, open window shades during the day and close them at night -Would recommend the following medication changes/additions: Start Remeron 7.5 mg at bedtime for depression/anxiety/appetite stimulation -Recommend outpatient psychiatry / psychotherapy follow-up -Psychiatry will follow loosely, please contact with any questions. 10/07/22 13:36
[2022-10-07 16:12] LABS: Glucose,Whole Blood 236 mg/dL (70-110)
[2022-10-07] MEDS: ACETAMINOPHEN TAB 325 MG TAB PO PRN (17:37)
[2022-10-07 20:09] LABS: Glucose,Whole Blood 263 mg/dL (70-110)
[2022-10-07] MEDS: MIRTAZAPINE 15 MG TAB PO SCH (20:45)
[2022-10-07] MEDS: ATORVASTATIN 40 MG TAB PO SCH (20:45)
[2022-10-07] MEDS: INSULIN DETEMIR (LEVEMIR) 100 UNIT/ML SYR SQ SCH (21:49)
[2022-10-08 05:36] LABS: Glucose,Whole Blood 98 mg/dL (70-110)
[2022-10-08] MEDS: metFORMIN 500 MG TAB PO SCH ×2 (06:17→18:09)
[2022-10-08] MEDS: LEVOTHYROXINE 50 MCG TAB PO SCH (06:17)
[2022-10-08] MEDS: PANTOPRAZOLE 40 MG TABLET PO SCH (06:17)
[2022-10-08 09:35] LABS: African American GFR (CKD) 77.4 (60.0-200.0); Anion Gap 12.4 mmol/L (10.00-18.00); Calcium 8.7 mg/dL (8.7-10.3); Carbon Dioxide 21.6 mmol/L (20.0-27.5); Non-African American GFR(CKD) 66.8 (60.0-200.0); Potassium 4.3 mmol/L (3.5-5.5)
[2022-10-08] MEDS: ACETAMINOPHEN TAB 325 MG TAB PO PRN (09:37)
[2022-10-08] MEDS: METOPROLOL TARTRATE 50 MG TAB PO SCH ×2 (09:37→21:10)
[2022-10-08] MEDS: CLOPIDOGREL 75 MG TAB PO SCH (09:37)
[2022-10-08] MEDS: LISINOPRIL-HCTZ 20-12.5 MG 1 EACH TAB PO SCH (09:37)
[2022-10-08] MEDS: HEPARIN SODIUM,PORCINE/PF 5,000 UNIT/0.5 ML SYRINGE SQ SCH ×2 (09:37→21:10)
[2022-10-08] MEDS: CHOLECALCIFEROL 25 MCG (1000 IU) TABLET PO SCH (09:38)
--- NOTE | 2022-10-08 10:47 | US ---
EXAMINATION TYPE: US renals and bladder DATE OF EXAM: 10/08/2022 COMPARISON: US CLINICAL HISTORY: mrsa uti. UTI EXAM MEASUREMENTS: Right Kidney: 8.4 x 4.7 x 4.9 cm Left Kidney: 8.5 x 4.9 x 4.7 cm Right Kidney: No evidence of hydro, lower pole gassed out Left Kidney: No evidence of hydro, very limited views due to overlying bowel content Bladder: Pt has cath in place Renal sizes are symmetric and slightly diminished from normal. Cortical medullary differentiation is maintained. There is no evidence for hydronephrosis at this point in time. No nephrolithiasis is see n. No masses are identified. Rutledge catheter decompresses bladder. IMPRESSION: Suboptimal study without hydronephrosis seen bilaterally.
[2022-10-08 12:02] LABS: Glucose,Whole Blood 135 mg/dL (70-110)
[2022-10-08] MEDS ORDERED: VANCOMYCIN IV PER PHARMACY 1 EACH MISC MISCELLANE PRN (13:14)
[2022-10-08] MEDS ORDERED: VANCOMYCIN 1,250 MG in SODIUM CHLORIDE 0.9% 250 ML IVPB ONE (13:45)
--- NOTE | 2022-10-08 16:40 | P.PN ---
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 patient was brought into the ER for evaluation of mental status changes apparently the patient has been acting confused , patient also noticed to have a foul-smelling cloudy urine by the family On today's evaluation that is 10/08/2022, the patient continues to be afebrile, the patient is breathing comfortably on room air, denies any chest pain shortness of breath or cough, or nausea no vomiting no abdominal pain no diarrhea Objective - Vital Signs Vital signs: Vital Signs Temp 98.1 F 10/08/22 08:00 Pulse 65 10/08/22 08:00 Resp 18 10/08/22 08:00 BP 160/81 10/08/22 08:00 Pulse Ox 97 10/08/22 08:00 FiO2 Intake & Output 10/07/22 10/08/22 10/08/22 18:59 06:59 18:59 Intake Total 600 Output Total 1200 Balance 600 -1200 Intake: Oral 600 Output: Urine 1200 Other: Voiding Method Bedpan Bedpan External Catheter External Catheter External Catheter # Voids 4 # Bowel Movements 1 0 - Exam GENERAL DESCRIPTION: An elderly female lying in bed in no distress RESPIRATORY SYSTEM: Unlabored breathing , decreased breath sounds at bases HEART: S1 S2 regular rate and rhythm , ABDOMEN: Soft , no tenderness EXTREMITIES: Right ankle/foot wound is currently dressed - Labs CBC & Chem 7: 10/07/22 06:32 10/08/22 05:43 Labs: Abnormal Lab Results - Last 24 Hours (Table) 10/07/22 10/07/22 10/08/22 Range/Units 16:11 20:07 05:43 BUN/Creatinine Ratio 25.00 H (12.00-20.00) Ratio POC Glucose (mg/dL) 236 H 263 H (70-110) mg/dL 10/08/22 Range/Units 12:01 BUN/Creatinine Ratio (12.00-20.00) Ratio POC Glucose (mg/dL) 135 H (70-110) mg/dL Microbiology - Last 24 Hours (Table) 10/05/22 04:57 Blood Culture - Preliminary Blood No Growth after 72 hours 10/05/22 04:42 Blood Culture - Preliminary Blood No Growth after 72 hours 10/05/22 01:23 Urine Culture - Final Urine,Voided Methicillin resist S. aureus Assessment and Plan (1) UTI (urinary tract infection) Current Visit: Yes Status: Acute Code(s): N39.0 - URINARY TRACT INFECTION, SITE NOT SPECIFIED SNOMED Code(s): 47911369 Plan: 1patient presented to hospital mental status changes confusion which is likely multifactorial in this patient who did have a positive UA and history of foul- smelling cloudy urine likely component of UTI from enteric gram-negative pathogen. 2patient did have right ankle/foot area wound which does not look infected and no evidence of any cellulitis. 3local wound care to the right ankle foot wound with dry Aquacel silver dressing to be changed to 48-hour 4-patient urine has been finalized with MRSA Rocephin has been discontinued vanc omycin has been added to repeat UA has been requested Time with Patient: Less than 30
[2022-10-08 16:44] LABS: Glucose,Whole Blood 127 mg/dL (70-110)
[2022-10-08 20:41] LABS: Glucose,Whole Blood 145 mg/dL (70-110)
[2022-10-08] MEDS: INSULIN DETEMIR (LEVEMIR) 100 UNIT/ML SYR SQ SCH (21:10)
[2022-10-08] MEDS: MIRTAZAPINE 15 MG TAB PO SCH (21:11)
[2022-10-08] MEDS: ATORVASTATIN 40 MG TAB PO SCH (21:11)
--- NOTE | 2022-10-08 22:10 | P.PN ---
Subjective Patient is a 87-year-old lady who presented to the ER for altered mental status. Patient past medical history significant for coronary disease, diabetes mellitus, hypertension, hyperlipidemia who according to the family has been acting confused for the last couple of days. There was no cough without any fever or chills. There was no complain of any nausea or vomiting. Family notices patient urine was very foul-smelling. There was no complain of any cough or shortness of breath. Patient was worked up in the ER, initial lab work done showed patient to have us white count of 8.2, hemoglobin 11.8, platelet count 282, sodium 139, potassium 4.3, BUN 19, creatinine 0.85, calcium 8.3. UA was done and showed leukocyte esterase being positive, urine white count was also elevated, patient was started on IV antibiotics and was admitted for f urther evaluation and treatment 10/06/2022 Patient is awake and alert, as per note yesterday she was disoriented to place but today she was told me she is in the hospital and she has insight into her illness and follows commands, it looks like her mentation is improving. 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 Currently she is covered with ceftriaxone. Blood pressure elevated with systolic more than 180 therefore we increased her nifedipine 60 mg. Also her hemoglobin A1c is significantly elevated 9.3% she is CURRENTLY ON LEVEMIR 15 UNITS BEFORE WE GOING TO ADD METFORMIN 500 MG. HER CREATININE IS STABLE AT 1.0. 10/07/2022 Patient is awake and alert but lethargic and she feels depressed and family re questing psych consult but patient denies suicidal ideation. She is improving on ceftriaxone and her urine culture still pending. She stated that this year she had yesterday has improved. Mentation is back to baseline No diarrhea since yesterday No abdominal pain or tenderness. I discussed the case with oncology social worker today, possible she will need rehab placement Blood pressure better controlled on nifedipine 60 mg. Sugar still elevated therefore we increased her metformin and to 1000 twice a day. Possible discharge in 24-48 hours 10/08/2022 Patient clinically the same, awake and alert, minimal dysuria, diarrhea is improving slowly and gradually Urine culture came back positive for MRSA, we ordered a renal ultrasound which was negative for hydronephrosis or masses Patient might benefit from placement upon discharge Antibiotics was adjusted to IV vancomycin. Objective - Vital Signs Vital signs: Vital Signs Temp 98.1 F 10/08/22 08:00 Pulse 65 10/08/22 08:00 Resp 18 10/08/22 08:00 BP 160/81 10/08/22 08:00 Pulse Ox 97 10/08/22 08:00 FiO2 Intake & Output 10/07/22 10/08/22 10/08/22 18:59 06:59 18:59 Intake Total 600 Output Total 1200 Balance 600 -1200 Intake: Oral 600 Output: Urine 1200 Other: Voiding Method Bedpan Bedpan External Catheter External Catheter External Catheter # Voids 4 # Bowel Movements 1 0 - Exam GENERAL: The patient is alert and oriented x3, not in any acute distress. Well developed, well nourished. Lethargic HEENT: Pupils are round and equally reacting to light. EOMI. No scleral icterus. No conjunctival pallor. Normocephalic, atraumatic. No pharyngeal erythema. No thyromegaly. CARDIOVASCULAR: S1 and S2 present. No murmurs, rubs, or gallops. PULMONARY: Chest is clear to auscultation, no wheezing or crackles. ABDOMEN: Soft, nontender, nondistended, normoactive bowel sounds. No palpable organomegaly. MUSCULOSKELETAL: No joint swelling or deformity. -EXTREMITIES: No cyanosis, clubbing, or pedal edema. , Status post left AKA NEUROLOGICAL: Gross neurological examination did not reveal any focal deficits. SKIN: No rashes. no petechiae. - Labs CBC & Chem 7: 10/07/22 06:32 10/08/22 05:43 Labs: Abnormal Lab Results - Last 24 Hours (Table) 10/07/22 10/07/22 10/07/22 Range/Units 06:32 06:32 11:08 RBC 3.48 L (4.10-5.20) X 10*6/uL Hgb 9.7 L (12.0-15.0) g/dL Hct 30.0 L (37.2-46.3) % Carbon Dioxide 17.2 L (20.0-27.5) mmol/L Est GFR (CKD-EPI)AfAm 59.1 L (60.0-200.0) Est GFR (CKD-EPI)NonAf 51.0 L (60.0-200.0) BUN/Creatinine Ratio 25.30 H (12.00-20.00) Ratio Glucose 272 H (70-110) mg/dL POC Glucose (mg/dL) 238 H (70-110) mg/dL Calcium 8.2 L (8.7-10.3) mg/dL 10/07/22 10/07/22 10/08/22 Range/Units 16:11 20:07 05:43 RBC (4.10-5.20) X 10*6/uL Hgb (12.0-15.0) g/dL Hct (37.2-46.3) % Carbon Dioxide (20.0-27.5) mmol/L Est GFR (CKD-EPI)AfAm (60.0-200.0) Est GFR (CKD-EPI)NonAf (60.0-200.0) BUN/Creatinine Ratio 25.00 H (12.00-20.00) Ratio Glucose (70-110) mg/dL POC Glucose (mg/dL) 236 H 263 H (70-110) mg/dL Calcium (8.7-10.3) mg/dL Microbiology - Last 24 Hours (Table) 10/05/22 04:57 Blood Culture - Preliminary Blood No Growth after 72 hours 10/05/22 04:42 Blood Culture - Preliminary Blood No Growth after 72 hours 10/05/22 01:23 Urine Culture - Final Urine,Voided Methicillin resist S. aureus Assessment and Plan Assessment: UTI secondary to MRSA Acute metabolic encephalopathy, improved Hypertension, Diabetes mellitus with hyperglycemia, controlled on admission History of coronary artery disease Hyperlipidemia Hypothyroidism Chronic pain Plan: Change antibiotics to vancomycin per ID team recommendation ID team of the case Increase nifedipine and monitor blood sugar Continue with Metformin continue with Levemir 15 units in monitor glucose. Labs and medication were reviewed.. Continue same treatment. Continue with symptomatic treatment. Resume home medication. Monitor labs and vitals. DVT and GI prophylaxis. Further recommendations as per clinical course of the patient DVT prophylaxis: Subcutaneous heparin GI Prophylaxis: Ppi dry mill worker on the case for possible ECF placement for rehab Prognosis is guarded
[2022-10-09 05:29] LABS: Glucose,Whole Blood 128 mg/dL (70-110)
[2022-10-09] MEDS: LEVOTHYROXINE 50 MCG TAB PO SCH (06:23)
[2022-10-09] MEDS: metFORMIN 500 MG TAB PO SCH ×2 (06:23→17:12)
[2022-10-09] MEDS: PANTOPRAZOLE 40 MG TABLET PO SCH (06:23)
[2022-10-09 09:16] LABS: African American GFR (CKD) 68.3 (60.0-200.0); Anion Gap 12.6 mmol/L (10.00-18.00); BUN/Creat Ratio 19.28 Ratio (12.00-20.00); Blood Urea Nitrogen 17.1 mg/dL (9.0-27.0); Calcium 8.1 mg/dL (8.7-10.3); Carbon Dioxide 20.8 mmol/L (20.0-27.5); Non-African American GFR(CKD) 58.9 (60.0-200.0); Potassium 4.2 mmol/L (3.5-5.5)
[2022-10-09 09:22] LABS: Basophils # (A) 0.04 X 10*3/uL (0.00-0.10); Basophils % (A) 0.5 %; Eosinophils # (A) 0.15 X 10*3/uL (0.04-0.35); Eosinophils % (A) 1.8 %; HCT 31.6 % (37.2-46.3); Immature Grans, Automated 0.4 %; Lymphocytes # (A) 1.19 X 10*3/uL (0.90-5.00); Lymphocytes % (A) 14.2 %; MCH 27.4 pg (27.0-32.0); MCHC 31.6 g/dL (32.0-37.0); MCV 86.6 fL (80.0-97.0); Mean Platelet Volume 11.1 fL (9.5-12.2); Monocytes # (A) 0.52 X 10*3/uL (0.20-1.00); Monocytes % (A) 6.2 %; NRBC Per 100 WBC 0 /100 WBCS (0.0-0.0); Neutrophils # (A) 6.45 X 10*3/uL (1.80-7.70); Neutrophils % (A) 76.9 %; Platelet Count 327 X 10*3/uL (140-440); RBC 3.65 X 10*6/uL (4.10-5.20); RDW 14.3 % (11.5-14.5); WBC 8.38 X 10*3/uL (4.50-10.00)
[2022-10-09] MEDS: HEPARIN SODIUM,PORCINE/PF 5,000 UNIT/0.5 ML SYRINGE SQ SCH ×2 (09:41→21:00)
[2022-10-09] MEDS: CLOPIDOGREL 75 MG TAB PO SCH (09:42)
[2022-10-09] MEDS: CHOLECALCIFEROL 25 MCG (1000 IU) TABLET PO SCH (09:42)
[2022-10-09] MEDS: METOPROLOL TARTRATE 50 MG TAB PO SCH ×2 (09:42→21:01)
[2022-10-09] MEDS: LISINOPRIL-HCTZ 20-12.5 MG 1 EACH TAB PO SCH (09:42)
[2022-10-09 11:17] LABS: Glucose,Whole Blood 149 mg/dL (70-110)
[2022-10-09] MEDS: VANCOMYCIN 1,250 MG in SODIUM CHLORIDE 0.9% 250 ML IVPB SCH (12:41)
--- NOTE | 2022-10-09 14:36 | P.PN ---
Subjective Patient is a 87-year-old lady who presented to the ER for altered mental status. Patient past medical history significant for coronary disease, diabetes mellitus, hypertension, hyperlipidemia who according to the family has been acting confused for the last couple of days. There was no cough without any fever or chills. There was no complain of any nausea or vomiting. Family notices patient urine was very foul-smelling. There was no complain of any cough or shortness of breath. Patient was worked up in the ER, initial lab work done showed patient to have us white count of 8.2, hemoglobin 11.8, platelet count 282, sodium 139, potassium 4.3, BUN 19, creatinine 0.85, calcium 8.3. UA was done and showed leukocyte esterase being positive, urine white count was also elevated, patient was started on IV antibiotics and was admitted for f urther evaluation and treatment 10/06/2022 Patient is awake and alert, as per note yesterday she was disoriented to place but today she was told me she is in the hospital and she has insight into her illness and follows commands, it looks like her mentation is improving. 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 Currently she is covered with ceftriaxone. Blood pressure elevated with systolic more than 180 therefore we increased her nifedipine 60 mg. Also her hemoglobin A1c is significantly elevated 9.3% she is CURRENTLY ON LEVEMIR 15 UNITS BEFORE WE GOING TO ADD METFORMIN 500 MG. HER CREATININE IS STABLE AT 1.0. 10/07/2022 Patient is awake and alert but lethargic and she feels depressed and family re questing psych consult but patient denies suicidal ideation. She is improving on ceftriaxone and her urine culture still pending. She stated that this year she had yesterday has improved. Mentation is back to baseline No diarrhea since yesterday No abdominal pain or tenderness. I discussed the case with social work lecturer today, possible she will need rehab placement Blood pressure better controlled on nifedipine 60 mg. Sugar still elevated therefore we increased her metformin and to 1000 twice a day. Possible discharge in 24-48 hours 10/08/2022 Patient clinically the same, awake and alert, minimal dysuria, diarrhea is improving slowly and gradually Urine culture came back positive for MRSA, we ordered a renal ultrasound which was negative for hydronephrosis or masses Patient might benefit from placement upon discharge Antibiotics was adjusted to IV vancomycin. 10/09/2022 Patient improving clinically slowly and gradually, mentation is back at baseline, no urinary symptoms Final urine culture is MRSA, antibiotic was adjusted to IV vancomycin Blood pressure and glucose control after adjusting medication. Diarrhea improving, we'll keep monitoring Possible discharge in 24-48 hours if she keeps improving Objective - Vital Signs Vital signs: Vital Signs Temp 98.3 F 10/09/22 08:00 Pulse 56 L 10/09/22 08:00 Resp 17 10/09/22 08:00 BP 147/70 10/09/22 08:00 Pulse Ox 97 10/09/22 08:00 FiO2 Intake & Output 10/08/22 10/09/22 10/09/22 18:59 06:59 18:59 Output Total 400 700 Balance -400 -700 Output: Urine 400 700 Other: Voiding Method External Catheter External Catheter External Catheter # Bowel Movements 2 - Exam GENERAL: The patient is alert and oriented x3, not in any acute distress. Well developed, well nourished. Lethargic HEENT: Pupils are round and equally reacting to light. EOMI. No scleral icterus. No conjunctival pallor. Normocephalic, atraumatic. No pharyngeal erythema. No thyromegaly. CARDIOVASCULAR: S1 and S2 present. No murmurs, rubs, or gallops. PULMONARY: Chest is clear to auscultation, no wheezing or crackles. ABDOMEN: Soft, nontender, nondistended, normoactive bowel sounds. No palpable organomegaly. MUSCULOSKELETAL: No joint swelling or deformity. -EXTREMITIES: No cyanosis, clubbing, or pedal edema. , Status post left AKA NEUROLOGICAL: Gross neurological examination did not reveal any focal deficits. SKIN: No rashes. no petechiae. - Labs CBC & Chem 7: 10/09/22 04:14 10/09/22 04:14 Labs: Abnormal Lab Results - Last 24 Hours (Table) 10/08/22 10/08/22 10/09/22 Range/Units 16:43 20:40 04:14 RBC (4.10-5.20) X 10*6/uL Hgb (12.0-15.0) g/dL Hct (37.2-46.3) % MCHC (32.0-37.0) g/dL Est GFR (CKD-EPI)NonAf 58.9 L (60.0-200.0) Glucose 147 H (70-110) mg/dL POC Glucose (mg/dL) 127 H 145 H (70-110) mg/dL Calcium 8.1 L (8.7-10.3) mg/dL 10/09/22 10/09/22 10/09/22 Range/Units 04:14 05:27 11:16 RBC 3.65 L (4.10-5.20) X 10*6/uL Hgb 10.0 L (12.0-15.0) g/dL Hct 31.6 L (37.2-46.3) % MCHC 31.6 L (32.0-37.0) g/dL Est GFR (CKD-EPI)NonAf (60.0-200.0) Glucose (70-110) mg/dL POC Glucose (mg/dL) 128 H 149 H (70-110) mg/dL Calcium (8.7-10.3) mg/dL Microbiology - Last 24 Hours (Table) 10/05/22 04:57 Blood Culture - Preliminary Blood No Growth after 96 hours 10/05/22 04:42 Blood Culture - Preliminary Blood No Growth after 96 hours Assessment and Plan Assessment: UTI secondary to MRSA Acute metabolic encephalopathy, improved Hypertension, Diabetes mellitus with hyperglycemia, controlled on admission History of coronary artery disease Hyperlipidemia Hypothyroidism Chronic pain Plan: Change antibiotics to vancomycin per ID team recommendation ID team of the case Increase nifedipine and monitor blood sugar Continue with Metformin continue with Levemir 15 units in monitor glucose. Labs and medication were reviewed.. Continue same treatment. Continue with symptomatic treatment. Resume home medication. Monitor labs and vitals. DVT and GI prophylaxis. Further recommendations as per clinical course of the patient DVT prophylaxis: Subcutaneous heparin GI Prophylaxis: Ppi terrazzo worker apprentice on the case for possible ECF placement for rehab Prognosis is guarded
[2022-10-09 16:41] LABS: Glucose,Whole Blood 138 mg/dL (70-110)
--- NOTE | 2022-10-09 16:42 | P.PN ---
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 diff came back negative Objective - Vital Signs Vital signs: Vital Signs Temp 97.9 F 10/09/22 14:00 Pulse 57 L 10/09/22 14:00 Resp 18 10/09/22 14:00 BP 138/74 10/09/22 14:00 Pulse Ox 97 10/09/22 14:00 FiO2 Intake & Output 10/08/22 10/09/22 10/09/22 18:59 06:59 18:59 Output Total 400 700 Balance -400 -700 Output: Urine 400 700 Other: Voiding Method External Catheter External Catheter External Catheter # Bowel Movements 2 - Exam GENERAL DESCRIPTION: An elderly female lying in bed in no distress RESPIRATORY SYSTEM: Unlabored breathing , decreased breath sounds at bases HEART: S1 S2 regular rate and rhythm , ABDOMEN: Soft , no tenderness EXTREMITIES: Right ankle/foot wound is currently dressed - Labs CBC & Chem 7: 10/09/22 04:14 10/09/22 04:14 Labs: Abnormal Lab Results - Last 24 Hours (Table) 10/08/22 10/08/22 10/09/22 Range/Units 16:43 20:40 04:14 RBC (4.10-5.20) X 10*6/uL Hgb (12.0-15.0) g/dL Hct (37.2-46.3) % MCHC (32.0-37.0) g/dL Est GFR (CKD-EPI)NonAf 58.9 L (60.0-200.0) Glucose 147 H (70-110) mg/dL POC Glucose (mg/dL) 127 H 145 H (70-110) mg/dL Calcium 8.1 L (8.7-10.3) mg/dL 10/09/22 10/09/22 10/09/22 Range/Units 04:14 05:27 11:16 RBC 3.65 L (4.10-5.20) X 10*6/uL Hgb 10.0 L (12.0-15.0) g/dL Hct 31.6 L (37.2-46.3) % MCHC 31.6 L (32.0-37.0) g/dL Est GFR (CKD-EPI)NonAf (60.0-200.0) Glucose (70-110) mg/dL POC Glucose (mg/dL) 128 H 149 H (70-110) mg/dL Calcium (8.7-10.3) mg/dL Microbiology - Last 24 Hours (Table) 10/05/22 04:57 Blood Culture - Preliminary Blood No Growth after 96 hours 10/05/22 04:42 Blood Culture - Preliminary Blood No Growth after 96 hours Assessment and Plan (1) UTI (urinary tract infection) Current Visit: Yes Status: Acute Code(s): N39.0 - URINARY TRACT INFECTION, SITE NOT SPECIFIED SNOMED Code(s): 46071752 Plan: 1patient presented to hospital mental status changes confusion which is likely multifactorial in this patient who did have a positive UA and history of foul- smelling cloudy urine likely component of UTI from enteric gram-negative pathogen. 2patient did have right ankle/foot area wound which does not look infected and no evidence of any cellulitis. 3local wound care to the right ankle foot wound with dry Aquacel silver dressing to be changed to 48-hour 4-patient urine has been finalized with MRSA patient was started on vancomycin, repeat UA has been requested but not collected we will request again Time with Patient: Less than 30
[2022-10-09 20:59] LABS: Glucose,Whole Blood 194 mg/dL (70-110)
[2022-10-09] MEDS: INSULIN DETEMIR (LEVEMIR) 100 UNIT/ML SYR SQ SCH (21:01)
[2022-10-09] MEDS: MIRTAZAPINE 15 MG TAB PO SCH (21:01)
[2022-10-09] MEDS: ATORVASTATIN 40 MG TAB PO SCH (21:01)
[2022-10-09 21:05] LABS: Appearance,Urine Cloudy (Clear); Bacteria,Urine Rare /hpf; Bilirubin,Urine Negative (Negative); Blood,Urine Negative (Negative); Color,Urine Light Yellow; Glucose,Urine (UA) Negative (Negative); Ketones,Urine Negative (Negative); Leukocyte Esterase,Urine Small (Negative); Mucus,Urine Rare /hpf; Nitrite,Urine Negative (Negative); PH, Urine 5.5 (5.0-8.0); Protein,Urine 1+ (Negative); RBC,Urine 3 /hpf (0-5); Specific Gravity,Urine 1.009 (1.001-1.035); Squamous Epithelial Cell,Urine 3 /hpf (0-4); Urobilinogen,Urine <2.0 mg/dL (<2.0); WBC,Urine 4 /hpf (0-5)
[2022-10-10] MEDS: PANTOPRAZOLE 40 MG TABLET PO SCH (06:44)
[2022-10-10] MEDS: metFORMIN 500 MG TAB PO SCH ×2 (06:45→17:22)
[2022-10-10] MEDS: LEVOTHYROXINE 50 MCG TAB PO SCH (06:45)
[2022-10-10] MEDS: ACETAMINOPHEN TAB 325 MG TAB PO PRN ×2 (06:50→21:59)
[2022-10-10] MEDS: HEPARIN SODIUM,PORCINE/PF 5,000 UNIT/0.5 ML SYRINGE SQ SCH ×2 (08:22→21:57)
[2022-10-10] MEDS: CLOPIDOGREL 75 MG TAB PO SCH (08:22)
[2022-10-10] MEDS: CHOLECALCIFEROL 25 MCG (1000 IU) TABLET PO SCH (08:22)
[2022-10-10] MEDS: VANCOMYCIN 1,250 MG in SODIUM CHLORIDE 0.9% 250 ML IVPB SCH (08:22)
[2022-10-10] MEDS: METOPROLOL TARTRATE 50 MG TAB PO SCH ×2 (08:22→21:58)
[2022-10-10] MEDS: LISINOPRIL-HCTZ 20-12.5 MG 1 EACH TAB PO SCH (08:22)
[2022-10-10 10:53] LABS: African American GFR (CKD) 59.1 (60.0-200.0); Anion Gap 11.5 mmol/L (10.00-18.00); BUN/Creat Ratio 14.7 Ratio (12.00-20.00); Blood Urea Nitrogen 14.7 mg/dL (9.0-27.0); Carbon Dioxide 19.5 mmol/L (20.0-27.5); Potassium 4.2 mmol/L (3.5-5.5)
[2022-10-10 11:44] LABS: Glucose,Whole Blood 142 mg/dL (70-110)
--- NOTE | 2022-10-10 12:18 | CDI ---
Documentation Clarification Form Date: 10/10/2022 11:48:37 AM From: Gaby Garcia RN, CCDS Admit Date: 10/06/2022 1:08:00 PM Patient Name: Maryann Sawyer Visit Number: [id number] Discharge Date: ATTENTION: The Clinical Documentation Specialists (CDI) and [facility] Coding Staff appreciate your assistance in clarifying documentation. Please respond to the clarification below the line at the bottom and electronically sign. The CDI & [facility] Coding staff will review the response and follow-up if needed. Please note: Queries are made part of the Legal Health Record. If you have any questions, please contact the author of this message via ITS. Dr. Maicol Rivero An Unstageable pressure ulcer is documented in the nursing wound care assessment starting on 10/05/2022 Additional clarification regarding the stage of the pressure ulcer is requested. History/Risk Factors: CVA, Diabetes Mellitus, Hypertension, Hyperlipidemia, Diabetic foot infection Clinical Indicators: 87-year-old male present with mental status changes, confused with foul-smelling urine. 10/05 Vital signs 129/86 58 16 98.1 10/05 Labs: WBC 8.2 HGB 11.8 BUN 19 Cr 0.85 procalcitonin 0.08 He has a right medial ankle nursing wound care assessment has pressure injury staging as Unstageable. Location: Right ankle Wound description: Dry & intact, (small amount of drainage on admission 10/06) Treatment: Local wound care to the right ankle foot wound with Dry aquacel silver dressing to be changed to 48 hour 10/05 Consults: Right foot medial aspect did have a wound minimal slough no significant surrounding redness or drainage. Please clarify the stage of pressure ulcer, right ankle if known: Further specify if related to Diabetes mellitus or other? [ ] Stage 1 Pressure Ulcer right ankle [ ] Unstageable Pressure ulcer right ankle [ x ] Other condition, please specify _stage 2 pressure ulcer to right ankle [ ] Unable to determine Clinical Definitions: Stage 1 Pressure Ulcer: intact skin, non-blanching redness of local area Stage 2 Pressure Ulcer: Partial thickness, loss of dermis, pink wound bed Stage 3 Pressure Ulcer: Full thickness tissue loss Stage 4 Pressure Ulcer: Full thickness tissue loss with exposed bone, tendon, or muscle. Unstageable pressure ulcer: Full thickness tissue loss in which the base of the ulcer is covered by slough (yellow, toussaint, corrigan, green or brown) and/or eschar (toussaint, brown or black) in the wound bed. (Template Last Revised: September 2020) MTDD
--- NOTE | 2022-10-10 13:56 | P.PN ---
Progress Note - Text Progress Note Date: 10/10/22 Interval History: Patient was seen lying down in bed and was directable and agreeable to speak with clinical writer in her room., The patient is not reporting any suicidal or homicidal ideation, intention, and/or plan. She is not reporting any auditory or visual hallucinations. She is alert and oriented to person and place but not to time. She is currently not endorsing any significant symptoms of depression or anxiety at this time. However, the patient is somewhat of a poor historian. She reports that she is uncertain if she did sleep last night but expresses no concerns at this time. She denies any significant side effects of the medications and has been adherent. Mental Status Exam: General Appearance: Patient appears to be stated age is alert, directable, and cooperative. Patient appears to have fair hygiene and grooming wearing hospital gown with fair eye contact. Blind in her right eye. Left AKA. Behavior: Patient is calmly lying down in bed without any agitated behavior. Speech: Patient's speech is fluent and nonpressured. Mood/Affect: Mood is improving mildly, affect is congruent and constricted. Suicidality/Homicidality: Patient denies having any suicidal or homicidal ideation intent or plan. Perceptions: Patient denies any visual hallucinations and denies any auditory hallucinations Though content/process: There is no evidence of any delusional thought content and thought process is linear and goal-directed. Memory and concentration: Alert and oriented 2. Grossly intact for the purposes of this session. Judgment and insight: Fair Vital Signs Temp 98.1 F 10/10/22 07:46 Pulse 62 10/10/22 07:46 Resp 16 10/10/22 07:46 BP 157/72 10/10/22 07:46 Pulse Ox 95 10/10/22 07:46 FiO2 Intake & Output 10/09/22 10/10/22 10/10/22 18:59 06:59 18:59 Intake Total 300 Output Total 2 Balance 298 Intake: Oral 300 Output: Stool 2 Other: Voiding Method External Catheter External Catheter # Voids 2 3 1 Laboratory Results - Last 24 Hours 10/09/22 10/09/22 10/09/22 11:00 16:39 20:31 Sodium Potassium Chloride Carbon Dioxide Anion Gap BUN Creatinine Est GFR (CKD-EPI)AfAm Est GFR (CKD-EPI)NonAf BUN/Creatinine Ratio Glucose POC Glucose (mg/dL) 138 H POC Glu Reliner ID Prachi Mena Calcium Urine Color Light Yellow Urine Appearance Cloudy H Urine pH 5.5 Ur Specific Dexter 1.009 Urine Protein 1+ H Urine Glucose (UA) Negative Urine Ketones Negative Urine Blood Negative Urine Nitrite Negative Urine Bilirubin Negative Urine Urobilinogen <2.0 Ur Leukocyte Esterase Small H Urine RBC 3 Urine WBC 4 Ur Squamous Epith Cells 3 Urine Bacteria Rare H Urine Mucus Rare H C. difficile (EIA) Intrp Negative 10/09/22 10/10/22 10/10/22 20:56 06:32 11:43 Sodium 141 Potassium 4.2 Chloride 110 H Carbon Dioxide 19.5 L Anion Gap 11.50 BUN 14.7 Creatinine 1.0 Est GFR (CKD-EPI)AfAm 59.1 L Est GFR (CKD-EPI)NonAf 51.0 L BUN/Creatinine Ratio 14.70 Glucose 99 POC Glucose (mg/dL) 194 H 142 H POC Glu Reliner ID Hock, Myra Vineet, Serenity Calcium 8.0 L Urine Color Urine Appearance Urine pH Ur Specific Dexter Urine Protein Urine Glucose (UA) Urine Ketones Urine Blood Urine Nitrite Urine Bilirubin Urine Urobilinogen Ur Leukocyte Esterase Urine RBC Urine WBC Ur Squamous Epith Cells Urine Bacteria Urine Mucus C. difficile (EIA) Intrp Assessment Major Depressive Disorder, recurrent, moderate - Exacerbated by chronic medical problems and grief at loss of UTI Plan: -Continue your medical management. -At this time patient DOES NOT meet criteria for inpatient psychiatric admission. -Delirium precautions recommended with patient including - avoiding use of summer cotics and [employer] sedatives, limit anticholinergic medications when possible, frequent re-orientation, minimize use of restraints, open window shades during the day and close them at night -Would recommend the following medication changes/additions: Continue Remeron 7.5 mg at bedtime for depression/anxiety/appetite stimulation -Recommend outpatient psychiatry / psychotherapy follow-up -Psychiatry will sign off at this time. Patient is tolerating the medications well. Recommend outpatient follow-up for the patient in order to address bereavement and depressive symptoms. Please call us or reconsult us with any questions or concerns.
--- NOTE | 2022-10-10 15:55 | P.PN ---
Progress Note - Text Progress Note Date: 10/10/22 History of presenting complaint: This is a pleasant 87-year-old patient who follows with Dr. Ramirez. 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 . Left AKA. Patient is a 87-year-old lady who presented to the ER for altered mental status. Patient past medical history significant for coronary disease, diabetes mellitus, hypertension, hyperlipidemia who according to the family has been acting confused for the last couple of days. There was no cough without any fever or chills. There was no complain of any nausea or vomiting. Family notices patient urine was very foul-smelling. There was no complain of any cough or shortness of breath. Patient was worked up in the ER, initial lab work done showed patient to have us white count of 8.2, hemoglobin 11.8, platelet count 282, sodium 139, potassium 4.3, BUN 19, creatinine 0.85, calcium 8.3. UA was done and showed leukocyte esterase being positive, urine white count was also elevated, patient was started on IV antibiotics and was admitted for further evaluation and treatment 10/06/2022 Patient is awake and alert, as per note yesterday she was disoriented to place but today she was told me she is in the hospital and she has insight into her illness and follows commands, it looks like her mentation is improving. 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 Currently she is covered with ceftriaxone. Blood pressure elevated with systolic more than 180 therefore we increased her nifedipine 60 mg. Also her hemoglobin A1c is significantly elevated 9.3% she is CURRENTLY ON LEVEMIR 15 UNITS BEFORE WE GOING TO ADD METFORMIN 500 MG. HER CREATININE IS STABLE AT 1.0. 10/07/2022 Patient is awake and alert but lethargic and she feels depressed and family requesting psych consult but patient denies suicidal ideation. She is improving on ceftriaxone and her urine culture still pending. She stated that this year she had yesterday has improved. Mentation is back to baseline No diarrhea since yesterday No abdominal pain or tenderness. I discussed the case with licensed master social worker today, possible she will need rehab placement Blood pressure better controlled on nifedipine 60 mg. Sugar still elevated therefore we increased her metformin and to 1000 twice a day. Possible discharge in 24-48 hours 10/08/2022 Patient clinically the same, awake and alert, minimal dysuria, diarrhea is improving slowly and gradually Urine culture came back positive for MRSA, we ordered a renal ultrasound which was negative for hydronephrosis or masses Patient might benefit from placement upon discharge Antibiotics was adjusted to IV vancomycin. 10/09/2022 Patient improving clinically slowly and gradually, mentation is back at baseline, no urinary symptoms Final urine culture is MRSA, antibiotic was adjusted to IV vancomycin Blood pressure and glucose control after adjusting medication. Diarrhea improving, we'll keep monitoring Possible discharge in 24-48 hours if she keeps improving 10/19/2022: I assumed care of the patient today. Sitting up in a chair. Eating about 25-40%. Repeat UA unremarkable. On IV vancomycin. Await decision from ID about disposition antibiotics, patient called to rehab at [facility]. Past medical history to include: CAD, 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 Left above-knee amputation. Social history: Does not smoke or drink alcohol. . Lives in her own house. Has 24/7 caregivers. assist with ADLs. Family history: Cancer. Father of cirrhosis, from alcoholism Physical examination: VITAL SIGNS: 97.9, 58, 18, 151/78, 99% room air GENERAL: , Up in a chair, comfortable EYES: Blind in the right eye. NECK: JVD not raised; masses not palpable. HEART: First and second heart sounds are normal; no edema. LUNGS: Respiratory rate normal; clear to auscultation. ABDOMEN: Soft, nontender, liver spleen not palpable, no masses palpable. PSYCH: Alert and oriented x3; mood and affect normal. MUSCULOSKELETAL:No Clubbing/cyanosis;muscles-grossly intact. Left above-knee amputation Dressing on the right foot. Chronic ischemic changes of the toes NEUROLOGICAL: Cranial nerves grossly intact; Chronic left-sided weakness. Blind in the right eye. INVESTIGATIONS, reviewed in the clinical context Potassium 4.2 creatinine 1.0 white count 8.3 hemoglobin 10 platelets 327 C. diff: Negative Renal ultrasound: Cortical medullary differentiation is maintained. UA [October 09]: Negative for nitrite. Small leukoesterase. Rare bacteria. Urine culture: MRSA Assessment and plan: -Acute metabolic/toxic encephalopathy, delirium. Improving -Essential hypertension, Lopressor 50 mg twice a day. Zestoretic 20/12.5 once daily Procardia XL to 60 mg daily. -Possible Acute UTI with cystitis from MRSA IV vancomycin -chronic right shoulder dysfunction -Coronary artery disease, prior history of bypass 2007 Lopressor, Plavix -Diabetes mellitus type 2 on oral hypoglycemic, uncontrolled with hyperglycemia from infection Levemir 15 units daily at bedtime. Glucophage -Blind in the right eye, chronic -Left above-knee amputation -Chronic right ankle foot wound. Aquacel silver dressing to be changed every 48 hours[address] Being followed by Dr. Spicer from ID. -Hyperlipidemia Lipitor 40 mg daily at bedtime -Hypothyroidism Synthroid 50 g a day -Primary osteoarthritis Continue pain medications -Diabetic peripheral neuropathy -Chronic urinary incontinence Depend -Major depressive disorder, recurrent, exacerbation by chronic medical problems and recent loss of causing grief Seen by Dr. Neely from psychiatry. Continue current medications. Follow outpatient with psychiatry/psychotherapy. -Acute on chronic medical debility. We'll be discharged to [facility] ECF/rehab. -Full code Repeat UA is noted. Await decision from ID about disposition dose of antibiotics. Patient regarding to [facility] for rehab. Discussed with patient.
[2022-10-10 16:52] LABS: Glucose,Whole Blood 190 mg/dL (70-110)
[2022-10-10 20:12] LABS: Glucose,Whole Blood 266 mg/dL (70-110)
--- NOTE | 2022-10-10 21:33 | P.PN ---
Subjective Progress Note Date: 10/10/22 Principal diagnosis: UTI Patient is a 87-year-old female with a past medical history significant for coronary disease CVA TIA diabetes mellitus hypertension hyperlipidemia history of diabetic foot infection requiring amputation of the left leg patient was brought into the ER for evaluation of mental status changes apparently the patient has been acting confused , patient also noticed to have a foul-smelling cloudy urine by the family On today's evaluation that is 10/10/2022, the patient continues to be afebrile, the patient is breathing comfortably on room air, the patient denies chest pain shortness of breath or cough, no nausea no vomiting no abdominal pain Objective - Vital Signs Vital signs: Vital Signs Temp 98.1 F 10/10/22 07:46 Pulse 62 10/10/22 07:46 Resp 16 10/10/22 07:46 BP 157/72 10/10/22 07:46 Pulse Ox 95 10/10/22 07:46 FiO2 Intake & Output 10/09/22 10/10/22 10/10/22 18:59 06:59 18:59 Intake Total 300 Output Total 2 Balance 298 Intake: Oral 300 Output: Stool 2 Other: Voiding Method External Catheter External Catheter # Voids 2 3 1 - Exam GENERAL DESCRIPTION: An elderly female lying in bed in no distress RESPIRATORY SYSTEM: Unlabored breathing , decreased breath sounds at bases HEART: S1 S2 regular rate and rhythm , ABDOMEN: Soft , no tenderness EXTREMITIES: Right ankle/foot wound is currently dressed - Labs CBC & Chem 7: 10/09/22 04:14 10/10/22 06:32 Labs: Abnormal Lab Results - Last 24 Hours (Table) 10/09/22 10/09/22 10/09/22 Range/Units 16:39 20:31 20:56 Chloride (96-109) mmol/L Carbon Dioxide (20.0-27.5) mmol/L Est GFR (CKD-EPI)AfAm (60.0-200.0) Est GFR (CKD-EPI)NonAf (60.0-200.0) POC Glucose (mg/dL) 138 H 194 H (70-110) mg/dL Calcium (8.7-10.3) mg/dL Urine Appearance Cloudy H (Clear) Urine Protein 1+ H (Negative) Ur Leukocyte Esterase Small H (Negative) Urine Bacteria Rare H (None) /hpf Urine Mucus Rare H (None) /hpf 10/10/22 10/10/22 Range/Units 06:32 11:43 Chloride 110 H (96-109) mmol/L Carbon Dioxide 19.5 L (20.0-27.5) mmol/L Est GFR (CKD-EPI)AfAm 59.1 L (60.0-200.0) Est GFR (CKD-EPI)NonAf 51.0 L (60.0-200.0) POC Glucose (mg/dL) 142 H (70-110) mg/dL Calcium 8.0 L (8.7-10.3) mg/dL Urine Appearance (Clear) Urine Protein (Negative) Ur Leukocyte Esterase (Negative) Urine Bacteria (None) /hpf Urine Mucus (None) /hpf Microbiology - Last 24 Hours (Table) 10/05/22 04:57 Blood Culture - Preliminary Blood No Growth after 120 hours 10/05/22 04:42 Blood Culture - Preliminary Blood No Growth after 120 hours Assessment and Plan (1) UTI (urinary tract infection) Current Visit: Yes Status: Acute Code(s): N39.0 - URINARY TRACT INFECTION, SITE NOT SPECIFIED SNOMED Code(s): 70722483 Plan: 1patient presented to hospital mental status changes confusion which is likely multifactorial in this patient who did have a positive UA and history of foul- smelling cloudy urine likely component of UTI from enteric gram-negative pathogen. 2patient did have right ankle/foot area wound which does not look infected and no evidence of any cellulitis. 3local wound care to the right ankle foot wound with dry Aquacel silver dressing to be changed to 48-hour 4-patient urine has been finalized with MRSA patient on vancomycin, repeat UA has been relatively negative , no need for antibiotics on discharge Time with Patient: Less than 30
[2022-10-10] MEDS: INSULIN DETEMIR (LEVEMIR) 100 UNIT/ML SYR SQ SCH (21:57)
[2022-10-10] MEDS: ATORVASTATIN 40 MG TAB PO SCH (21:58)
[2022-10-10] MEDS: MIRTAZAPINE 15 MG TAB PO SCH (21:58)
[2022-10-11 06:09] LABS: Glucose,Whole Blood 123 mg/dL (70-110)
[2022-10-11] MEDS: LEVOTHYROXINE 50 MCG TAB PO SCH (06:54)
[2022-10-11] MEDS: metFORMIN 500 MG TAB PO SCH (06:54)
[2022-10-11] MEDS: PANTOPRAZOLE 40 MG TABLET PO SCH (06:54)
[2022-10-11] MEDS: ACETAMINOPHEN TAB 325 MG TAB PO PRN (06:54)
[2022-10-11] MEDS ORDERED: VANCOMYCIN TROUGH DUE 1 EACH MISC MISCELLANE ONE (08:00)
[2022-10-11] MEDS: HEPARIN SODIUM,PORCINE/PF 5,000 UNIT/0.5 ML SYRINGE SQ SCH (09:04)
[2022-10-11] MEDS: CHOLECALCIFEROL 25 MCG (1000 IU) TABLET PO SCH (09:05)
[2022-10-11] MEDS: LISINOPRIL-HCTZ 20-12.5 MG 1 EACH TAB PO SCH (09:05)
[2022-10-11] MEDS: CLOPIDOGREL 75 MG TAB PO SCH (09:05)
[2022-10-11] MEDS: METOPROLOL TARTRATE 50 MG TAB PO SCH (09:05)
[2022-10-11 11:17] LABS: Glucose,Whole Blood 128 mg/dL (70-110)
[2022-10-11] MEDS: VANCOMYCIN 1,250 MG in SODIUM CHLORIDE 0.9% 250 ML IVPB SCH (11:33)
--- NOTE | 2022-10-11 13:19 | P.DS ---
Providers Date of admission: 10/06/22 13:08 Expected date of discharge: 10/11/22 Attending physician: Elan Nagel Consults: 10/05/22 10:21 Consult Physician Routine Consulting Provider: Maicol Rivero Consult Reason/Comments: UTI Do you want consulting provider notified?: Yes 10/06/22 13:45 Consult Physician Routine Consulting Provider: Colin Neely Consult Reason/Comments: depression Do you want consulting provider notified?: Yes [facility]: History of presenting complaint: This is a pleasant 87-year-old patient who follows with Dr. Ramirez. 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 . Left AKA. Patient is a 87-year-old lady who presented to the ER for altered mental status. Patient past medical history significant for coronary disease, diabetes mellitus, hypertension, hyperlipidemia who according to the family has been acting confused for the last couple of days. There was no cough without any fever or chills. There was no complain of any nausea or vomiting. Family notices patient urine was very foul-smelling. There was no complain of any cough or shortness of breath. Patient was worked up in the ER, initial lab work done showed patient to have us white count of 8.2, hemoglobin 11.8, platelet count 282, sodium 139, potassium 4.3, BUN 19, creatinine 0.85, calcium 8.3. UA was done and showed leukocyte esterase being positive, urine white count was also elevated, patient was started on IV antibiotics and was admitted for further evaluation and treatment 10/06/2022 Patient is awake and alert, as per note yesterday she was disoriented to place but today she was told me she is in the hospital and she has insight into her illness and follows commands, it looks like her mentation is improving. 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 Currently she is covered with ceftriaxone. Blood pressure elevated with systolic more than 180 therefore we increased her nifedipine 60 mg. Also her hemoglobin A1c is significantly elevated 9.3% she is CURRENTLY ON LEVEMIR 15 UNITS BEFORE WE GOING TO ADD METFORMIN 500 MG. HER CREATININE IS STABLE AT 1.0. 10/07/2022 Patient is awake and alert but lethargic and she feels depressed and family requesting psych consult but patient denies suicidal ideation. She is improving on ceftriaxone and her urine culture still pending. She stated that this year she had yesterday has improved. Mentation is back to baseline No diarrhea since yesterday No abdominal pain or tenderness. I discussed the case with medical social consultant today, possible she will need rehab placement Blood pressure better controlled on nifedipine 60 mg. Sugar still elevated therefore we increased her metformin and to 1000 twice a day. Possible discharge in 24-48 hours 10/08/2022 Patient clinically the same, awake and alert, minimal dysuria, diarrhea is improving slowly and gradually Urine culture came back positive for MRSA, we ordered a renal ultrasound which was negative for hydronephrosis or masses Patient might benefit from placement upon discharge Antibiotics was adjusted to IV vancomycin. 10/09/2022 Patient improving clinically slowly and gradually, mentation is back at baseline, no urinary symptoms Final urine culture is MRSA, antibiotic was adjusted to IV vancomycin Blood pressure and glucose control after adjusting medication. Diarrhea improving, we'll keep monitoring Possible discharge in 24-48 hours if she keeps improving 10/10/2022: I assumed care of the patient today. Sitting up in a chair. Eating about 25-40%. Repeat UA unremarkable. On IV vancomycin. Await decision from ID about disposition antibiotics, patient ca lled to rehab at [facility]. 10/11/2022: Laying in bed. Comfortable. Had all her breakfast. Per ID, no further antibiotics upon discharge. Discussed with nurse. Discussed with patient. At the welfare case worker. will go to [facility] rehab Discussion and discharge planning more than 35 minutes Past medical history to include: CAD, 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 Left above-knee amputation. Social history: Does not smoke or drink alcohol. . Lives in her own house. Has 24/7 caregivers. assist with ADLs. Family history: Cancer. Father of cirrhosis, from alcoholism Physical examination: VITAL SIGNS: 97.5, 56, 17, 1 62 x 77, 97% room air GENERAL: , Declining, comfortable EYES: Blind in the right eye. NECK: JVD not raised; masses not palpable. HEART: First and second heart sounds are normal; no edema. LUNGS: Respiratory rate normal; clear to auscultation. ABDOMEN: Soft, nontender, liver spleen not palpable, no masses palpable. PSYCH: Alert and oriented x3; mood and affect normal. MUSCULOSKELETAL:No Clubbing/cyanosis;muscles-grossly intact. Left above-knee amputation. Limited range of motion right shoulder Dressing on the right foot. Chronic ischemic changes of the toes NEUROLOGICAL: Cranial nerves grossly intact; Chronic left-sided weakness. Blind in the right eye. INVESTIGATIONS, reviewed in the clinical context Potassium 4.2 creatinine 1.0 white count 8.3 hemoglobin 10 platelets 327 C. diff: Negative Renal ultrasound: Cortical medullary differentiation is maintained. UA [October 09]: Negative for nitrite. Small leukoesterase. Rare bacteria. Urine culture: MRSA Assessment and plan: -Acute metabolic/toxic encephalopathy, delirium. Improved -Essential hypertension, Lopressor 50 mg twice a day. Zestoretic 20/12.5 once daily Procardia XL to 60 mg daily. - Acute UTI with cystitis from MRSA, causing sepsis IV vancomycin-course finished -Sepsis from acute UTI, POA -chronic right shoulder dysfunction -Coronary artery disease, prior history of bypass 2007 Lopressor, Plavix -Diabetes mellitus type 2 on oral hypoglycemic, uncontrolled with hyperglycemia from infection Levemir 15 units daily at bedtime. Glucophage -Blind in the right eye, chronic -Left above-knee amputation -Chronic right ankle foot wound. Aquacel silver dressing to be changed every 48 hours. Follow up with Dr. Langley -Hyperlipidemia Lipitor 40 mg daily at bedtime -Hypothyroidism Synthroid 50 g a day -Primary osteoarthritis Continue pain medications -Diabetic peripheral neuropathy -Chronic urinary incontinence Depend -Major depressive disorder, recurrent, exacerbation by chronic medical problems and recent loss of causing grief Seen by Dr. Neely from psychiatry. Continue current medications. Follow outpatient with psychiatry/psychotherapy. Remeron 7.5 mg by mouth daily at bedtime -Acute on chronic medical debility. discharged to [facility]/rehab. -Full code Disposition: Rehab at [facility] Plan - Discharge Summary Discharge Rx Participant: No New Discharge Prescriptions: New Mirtazapine [Remeron] 7.5 mg PO HS tab metFORMIN HCL [Glucophage] 1,000 mg PO BID-W/MEALS tab Continue Atorvastatin [Lipitor] 40 mg PO HS Cranberry Fruit Extract [Cranberry] 500 mg PO DAILY Cholecalciferol [Vitamin D3 (25 Mcg = 1000 Iu)] 50 mcg PO DAILY Ibuprofen 600 mg PO Q6H PRN PRN Reason: Pain Metoprolol Tartrate [Lopressor] 50 mg PO BID PRN PRN Reason: HIGH BP Levothyroxine Sodium [Synthroid] 50 mcg PO DAILY@0630 #30 tab Insulin Aspart [NovoLOG Flexpen] See Protocol SQ AC-TID Acetaminophen Tab [Tylenol] 500 mg PO Q6H PRN PRN Reason: Pain Or Fever > 100.5 Omeprazole [PriLOSEC] 20 mg PO DAILY Clopidogrel Bisulfate [Clopidogrel] 75 mg PO DAILY Insulin Glargine,Hum.rec.anlog [Lantus Solostar Pen] 15 units SQ HS #0 NIFEdipine XL [Procardia XL] 30 mg PO DAILY Lisinopril-Hctz 20-12.5 mg [Zestoretic 20-12.5] 1 tab PO DAILY Discharge Medication List Atorvastatin [Lipitor] 40 mg PO HS 12/02/20 [History] Cholecalciferol [Vitamin D3 (25 Mcg = 1000 Iu)] 50 mcg PO DAILY 07/24/21 [History] Cranberry Fruit Extract [Cranberry] 500 mg PO DAILY 07/24/21 [History] Ibuprofen 600 mg PO Q6H PRN 12/16/21 [History] Insulin Aspart [NovoLOG Flexpen] See Protocol SQ AC-TID 12/16/21 [History] Acetaminophen Tab [Tylenol] 500 mg PO Q6H PRN 04/29/22 [History] Clopidogrel Bisulfate [Clopidogrel] 75 mg PO DAILY 04/29/22 [History] Metoprolol Tartrate [Lopressor] 50 mg PO BID PRN 04/29/22 [History] Omeprazole [PriLOSEC] 20 mg PO DAILY 04/29/22 [History] Insulin Glargine,Hum.rec.anlog [Lantus Solostar Pen] 15 units SQ HS #0 05/04/22 [Rx] Levothyroxine Sodium [Synthroid] 50 mcg PO DAILY@0630 #30 tab 05/04/22 [Rx] Lisinopril-Hctz 20-12.5 mg [Zestoretic 20-12.5] 1 tab PO DAILY 10/05/22 [History] NIFEdipine XL [Procardia XL] 30 mg PO DAILY 10/05/22 [History] Mirtazapine [Remeron] 7.5 mg PO HS tab 10/11/22 [Rx] metFORMIN HCL [Glucophage] 1,000 mg PO BID-W/MEALS tab 10/11/22 [Rx] Follow up Appointment(s)/Referral(s): Esvin Ramirez DO [Primary Care Provider] - 1-2 days Heraclio Velez MD [STAFF PHYSICIAN] - 1 Week
[2022-10-11 15:00] VITALS: BP 160/68; PULSE 57; RESP 18; TEMP 98.5
[2022-10-11] MEDS ORDERED: INSULIN ASPART (NovoLOG) 100 UNIT/ML VIAL SQ SCH (16:00)
== END 2022-10-11 16:36 | DRG 871 ==
LOC: EC 01:08 → 6NMEDSUR 03:56 → 4SSUR 05:57 → OBSVTOIN 10-06 13:08
PROVIDERS: ADMIT Hospitalist; ATTEND Hospitalist
DX: A41.02 Sepsis due to Methicillin resistant Staphylococcus aureus (principal); G92.8 Other toxic encephalopathy; I69.354 Hemiplegia and hemiparesis following cerebral infarction affecting left non-dominant side; F33.1 Major depressive disorder, recurrent, moderate; E11.319 Type 2 diabetes mellitus with unspecified diabetic retinopathy without macular edema; L89.512 Pressure ulcer of right ankle, stage 2; E11.42 Type 2 diabetes mellitus with diabetic polyneuropathy; E11.51 Type 2 diabetes mellitus with diabetic peripheral angiopathy without gangrene; E11.65 Type 2 diabetes mellitus with hyperglycemia; J44.9 Chronic obstructive pulmonary disease, unspecified; I10 Essential (primary) hypertension; E03.9 Hypothyroidism, unspecified; N30.90 Cystitis, unspecified without hematuria; I25.10 Atherosclerotic heart disease of native coronary artery without angina pectoris; E78.5 Hyperlipidemia, unspecified; H91.93 Unspecified hearing loss, bilateral; H54.8 Legal blindness, as defined in USA; G89.29 Other chronic pain; R19.7 Diarrhea, unspecified; B95.62 Methicillin resistant Staphylococcus aureus infection as the cause of diseases classified elsewhere; F41.9 Anxiety disorder, unspecified; M19.91 Primary osteoarthritis, unspecified site; Z89.612 Acquired absence of left leg above knee; Z63.4 Disappearance and death of family member; Z28.311 Partially vaccinated for COVID-19; Z95.1 Presence of aortocoronary bypass graft; Z86.14 Personal history of Methicillin resistant Staphylococcus aureus infection; Z88.1 Allergy status to other antibiotic agents; Z91.013 Allergy to seafood; Z91.041 Radiographic dye allergy status; Z88.6 Allergy status to analgesic agent; Z79.899 Other long term (current) drug therapy; Z79.890 Hormone replacement therapy; Z79.4 Long term (current) use of insulin; Z79.02 Long term (current) use of antithrombotics/antiplatelets; Z91.51 Personal history of suicidal behavior
CPT/HCPCS: 36415; 76770; 80048; 80053; 80202; 81001; 82565; 83036; 83605; 84145; 84484; 85025; 87040; 87077; 87086; 87186; 87324; 87635; 93005; 96374; 99285

== ENCOUNTER 2023-04-27 12:15 | Inpatient (IN) | payer MEDICARE, OTHER ==
[2023-04-27] MEDS ORDERED: IBUPROFEN 600 MG TAB PO STA (12:42)
[2023-04-27] MEDS ORDERED: SODIUM CHLORIDE 0.9% 1,000 ML IV STA (12:42)
[2023-04-27] MEDS ORDERED: ACETAMINOPHEN TAB 500 MG TAB PO STA (12:42)
[2023-04-27] MEDS ORDERED: ONDANSETRON 4 MG/2 ML VIAL IVP STA (12:42)
--- NOTE | 2023-04-27 13:10 | ED ---
Weakness HPI - General Chief complaint: Recheck/Abnormal Lab/Rx Stated complaint: Dehydrated Time Seen by Provider: 04/27/23 12:41 Source: patient, family, RN notes reviewed, old records reviewed Mode of arrival: wheelchair Limitations: no limitations - History of Present Illness Initial comments: This is an 88-year-old female to the emergency department for evaluation today. Patient presents today for evaluation regards to nausea vomiting weakness, patient was sent by primary care for concern of dehydration. MD Complaint: generalized weakness -: days(s) Location: generalized Severity: moderate Severity scale (1-10): 4 Quality: numbness, aching Consistency: constant Improves with: none Worsens with: none Context: recent illness, history of similar Associated Symptoms: nausea/vomiting - Related Data Home Medications Medication Instructions Recorded Confirmed Atorvastatin [Lipitor] 40 mg PO HS 12/02/20 05/01/23 Cholecalciferol [Vitamin D3 (25 50 mcg PO DAILY 07/24/21 05/01/23 Mcg = 1000 Iu)] Cranberry Fruit Extract [Cranberry] 500 mg PO DAILY 07/24/21 05/01/23 Insulin Aspart [NovoLOG Flexpen] See Protocol SQ AC-TID PRN 12/16/21 05/01/23 Clopidogrel Bisulfate [Clopidogrel] 75 mg PO DAILY 04/29/22 05/01/23 Omeprazole [PriLOSEC] 20 mg PO DAILY 04/29/22 05/01/23 Lisinopril-Hctz 20-12.5 mg 1 tab PO BID 10/05/22 05/01/23 [Zestoretic 20-12.5] NIFEdipine XL [Procardia XL] 30 mg PO DAILY 10/05/22 05/01/23 Levothyroxine Sodium [Synthroid] 50 mcg PO HS 04/27/23 05/01/23 Nitroglycerin Sl Tabs [Nitrostat] 0.4 mg SUBLINGUAL Q5M PRN 04/27/23 05/01/23 Propylene Glycol [Systane Complete] 1 drop BOTH EYES QID PRN 04/27/23 05/01/23 Previous Rx's Medication Instructions Recorded Metoprolol Tartrate [Lopressor] 50 mg PO BID #0 10/11/22 Acetaminophen Tab [Tylenol] 500 mg PO Q6HR PRN tab 04/29/23 Allergies Allergy/AdvReac Type Severity Reaction Status Date / Time aspirin Allergy Rash/Hives Verified 05/01/23 17:10 fish derived Allergy Rash/Hives Verified 05/01/23 17:10 Iodinated Contrast Media Allergy Rash/Hives Verified 05/01/23 17:10 [Iodinated Contrast Media - IV Dye] Iodine and Iodide Containing Allergy Rash/Hives Verified 05/01/23 17:10 Produc shellfish derived [Shellfish] Allergy Rash/Hives Verified 05/01/23 17:10 sulfamethoxazole Allergy Itching Verified 05/01/23 17:10 [From Bactrim] trimethoprim [From Bactrim] Allergy Itching Verified 05/01/23 17:10 Review of Systems ROS Statement: Those systems with pertinent positive or pertinent negative responses have been documented in the HPI. ROS Other: All systems not noted in ROS Statement are negative. 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, dysphagia,esophageal strictures with dilation, hiatal hernia, L eye diabetic retinopathy/R eye blindness, bilateral [place], UTIS/urinary leakage, past bilateral feet sores/osteomylitis, generalized pain, bilateral carpal tunnel syndrome, vertigo, hypothyroid, anemia History of Any Multi-Drug Resistant Organisms: MRSA Date of last positivie culture/infection: 10/05/22 MDRO Source:: Urine Past Surgical History: Bladder Surgery, Cholecystectomy, Coronary Bypass/CABG, Heart Catheterization, Hysterectomy Additional Past Surgical History / Comment(s): 2007 CABG 4 vessel, EGDs with dilations, colonoscopies, cataract removal, D&C, bladder suspension, PICC, loop recorder, toe amputation may 2021, left AKA Past Anesthesia/Blood Transfusion Reactions: Motion Sickness, Postoperative Nausea & Vomiting (PONV) Past Psychological History: No Psychological Hx Reported Smoking Status: Never smoker Past Alcohol Use History: None Reported Past Drug Use History: None Reported - Past Family History Father Family Medical History: Liver Disease Additional Family Medical History / Comment(s): Father of cirrhosis. He was a drinker. Mother History Unknown: Yes Family Medical History: Unable to Obtain Additional Family Medical History / Comment(s): Pt states she does not know her mother's medical history, but knows she at the age of 62 yrs.. Son(s) Family Medical History: Unable to Obtain, Renal Disease Daughter(s) Family Medical History: Cancer General Exam Limitations: no limitations General appearance: alert, in no apparent distress, lethargic, in distress Head exam: Present: atraumatic, normocephalic, normal inspection Eye exam: Present: normal appearance, PERRL, EOMI. Absent: scleral icterus, conjunctival injection, periorbital swelling ENT exam: Present: normal exam, mucous membranes moist Neck exam: Present: normal inspection. Absent: tenderness, meningismus, lymphadenopathy Respiratory exam: Present: normal lung sounds bilaterally. Absent: respiratory distress, wheezes, rales, rhonchi, stridor Cardiovascular Exam: Present: regular rate, normal rhythm, normal heart sounds. Absent: systolic murmur, diastolic murmur, rubs, gallop, clicks GI/Abdominal exam: Present: soft, normal bowel sounds. Absent: distended, tenderness, guarding, rebound, rigid Extremities exam: Present: normal inspection, full ROM, normal capillary refill. Absent: tenderness, pedal edema, joint swelling, calf tenderness Back exam: Present: normal inspection Neurological exam: Present: alert, oriented X3, CN II-XII intact Psychiatric exam: Present: normal affect, normal mood Skin exam: Present: warm, dry, intact, normal color. Absent: rash Course Vital Signs 04/27/23 04/27/23 04/27/23 12:22 13:00 14:15 Temperature 98 F Pulse Rate 81 78 78 Respiratory 16 17 17 Rate Blood Pressure 122/69 128/64 139/58 O2 Sat by Pulse 97 98 100 Oximetry 04/27/23 16:20 Temperature Pulse Rate 76 Respiratory 18 Rate Blood Pressure 123/60 O2 Sat by Pulse 99 Oximetry - Reevaluation(s) Reevaluation #1: 04/27/23 13:09 Medical records reviewed Reevaluation #2: 04/27/23 15:34 Patient informed results questions answered Reevaluation #3: 04/27/23 15:35 No improvement here in the ER Reevaluation #4: 04/27/23 13:09 Was pt. sent in by a medical professional or institution ([facility], [employer], urgent care, hospital, or prison...) When possible be specific @ -no Did you speak to anyone other than the patient for history (EMS, parent, family, police, friend...)? What history was obtained from this source @ -no Did you review nursing and triage notes (agree or disagree)? Why? @ -agree Are old charts reviewed (outside hosp., previous admission, EMS record, old EKG, old radiological studies, urgent care reports/EKG's, prison records)? Report findings @ -yes Differential Diagnosis (chest pain, altered mental status, abdominal pain women, abdominal pain men, vaginal bleeding, weakness, fever, dyspnea, syncope, headache, dizziness, GI bleed, back pain, seizure, CVA, palpatations, mental health, musculoskeletal)? @ -prior EKG interpreted by me (3pts min.). @ -yes X-rays interpreted by me (1pt min.). @ -yes CT interpreted by me (1pt min.). @ -no U/S interpreted by me (1pt. min.). @ -no What testing was considered but not performed or refused? (CT, X-rays, U/S, labs)? Why? @ -none What meds were considered but not given or refused? Why? @ -none Did you discuss the management of the patient with other professionals (professionals i.e. [facility], [employer], lab, RT, psych nurse, licensed social worker, tap grinder, teacher, first officer, outsole caser)? Give summary @ -no Was smoking cessation discussed for >3mins.? @ -no Was critical care preformed (if so, how long)? @ -no Were there social determinants of health that impacted care today? How? (Homelessness, low income, unemployed, alcoholism, drug addiction, transportation, low edu. Level, literacy, decrease access to med. care, custodial, rehab)? @ -none Was there de-escalation of care discussed even if they declined (Discuss DNR or withdrawal of care, Hospice)? DNR status @ -no What co-morbidities impacted this encounter? (DM, HTN, Smoking, COPD, CAD, Cancer, CVA, ARF, Chemo, Hep., AIDS, mental health diagnosis, sleep apnea, morbid obesity)? @ -none Was patient admitted / discharged? Hospital course, mention meds given and route, prescriptions, significant lab abnormalities, going to OR and other pertinent info. @ - 88 female presents today for evaluation. Patient presents today for evaluation regards to weakness significant lightheadedness dizziness nausea vomiting and diarrhea. Patient admitted for supportive care Admitted Undiagnosed new problem with uncertain prognosis? @ -no Drug Therapy requiring intensive monitoring for toxicity (Heparin, Nitro, Insulin, Cardizem)? @ -no Were any procedures done? @ -no Diagnosis/symptom? @ -Weakness dizziness Acute, or Chronic, or Acute on Chronic? @ -Acute Uncomplicated (without systemic symptoms) or Complicated (systemic symptoms)? @ -Complicated Side effects of treatment? @ -no Exacerbation, Progression, or Severe Exacerbation? @ -exacerbation Poses a threat to life or bodily function? How? (Chest pain, USA, OR, pneumonia, PE, COPD, DKA, ARF, appy, cholecystitis, CVA, Diverticulitis, Homicidal, Suicidal, threat to staff... and all critical care pts) @ -yes Reevaluation #5: 04/27/23 13:09 Differential Weakness: Hypoglycemia, shock, sepsis, hyponatremia, anemia, infection, OR, ETOH, adverse medicine reaction, overdose, stroke, this is not meant to be an all-inclusive list. - Consultations Consultation #1: Spoke with Dr. Nagel agrees to admit this patient EKG Findings - EKG Results: EKG: interpreted by [facility] Medical Decision Making - Medical Decision Making 88 female presents today for evaluation. Patient presents today for evaluation regards to weakness significant lightheadedness dizziness nausea vomiting and diarrhea. Patient admitted for supportive care - Lab Data Result diagrams: 04/28/23 08:43 04/28/23 08:43 Lab Results 04/27/23 04/27/23 04/27/23 Range/Units 12:55 12:55 12:55 WBC 5.5 (3.8-10.6) k/uL RBC 4.09 (3.80-5.40) m/uL Hgb 12.0 (11.4-16.0) gm/dL Hct 34.4 (34.0-46.0) % MCV 84.1 (80.0-100.0) fL MCH 29.3 (25.0-35.0) pg MCHC 34.8 (31.0-37.0) g/dL RDW 14.7 (11.5-15.5) % Plt Count 200 (150-450) k/uL MPV 9.8 Neutrophils % 79 % Lymphocytes % 12 % Monocytes % 6 % Eosinophils % 1 % Basophils % 0 % Neutrophils # 4.4 (1.3-7.7) k/uL Lymphocytes # 0.7 L (1.0-4.8) k/uL Monocytes # 0.4 (0-1.0) k/uL Eosinophils # 0.0 (0-0.7) k/uL Basophils # 0.0 (0-0.2) k/uL PT 10.9 (10.0-12.5) sec INR 1.0 (<1.2) APTT 25.0 (22.0-30.0) sec Sodium 136 L (137-145) mmol/L Potassium 3.8 (3.5-5.1) mmol/L Chloride 109 H (98-107) mmol/L Carbon Dioxide 14 L (22-30) mmol/L Anion Gap 13 mmol/L BUN 70 H (7-17) mg/dL Creatinine 1.68 H (0.52-1.04) mg/dL Est GFR (CKD-EPI)AfAm 31 (>60 ml/min/1.73 sqM) Est GFR (CKD-EPI)NonAf 27 (>60 ml/min/1.73 sqM) Glucose 202 H (74-99) mg/dL Plasma Lactic Acid Evelio (0.7-2.0) mmol/L Calcium 8.7 (8.4-10.2) mg/dL Phosphorus 3.7 (2.5-4.5) mg/dL Magnesium 1.3 L (1.6-2.3) mg/dL Total Bilirubin 0.6 (0.2-1.3) mg/dL AST 48 H (14-36) U/L ALT 24 (4-34) U/L Alkaline Phosphatase 100 (38-126) U/L Troponin I (0.000-0.034) ng/mL Total Protein 7.2 (6.3-8.2) g/dL Albumin 3.7 (3.5-5.0) g/dL 10/19/23 10/19/23 Range/Units 12:55 12:55 WBC (3.8-10.6) k/uL RBC (3.80-5.40) m/uL Hgb (11.4-16.0) gm/dL Hct (34.0-46.0) % MCV (80.0-100.0) fL MCH (25.0-35.0) pg MCHC (31.0-37.0) g/dL RDW (11.5-15.5) % Plt Count (150-450) k/uL MPV Neutrophils % % Lymphocytes % % Monocytes % % Eosinophils % % Basophils % % Neutrophils # (1.3-7.7) k/uL Lymphocytes # (1.0-4.8) k/uL Monocytes # (0-1.0) k/uL Eosinophils # (0-0.7) k/uL Basophils # (0-0.2) k/uL PT (10.0-12.5) sec INR (<1.2) APTT (22.0-30.0) sec Sodium (137-145) mmol/L Potassium (3.5-5.1) mmol/L Chloride (98-107) mmol/L Carbon Dioxide (22-30) mmol/L Anion Gap mmol/L BUN (7-17) mg/dL Creatinine (0.52-1.04) mg/dL Est GFR (CKD-EPI)AfAm (>60 ml/min/1.73 sqM) Est GFR (CKD-EPI)NonAf (>60 ml/min/1.73 sqM) Glucose (74-99) mg/dL Plasma Lactic Acid Evelio 1.3 (0.7-2.0) mmol/L Calcium (8.4-10.2) mg/dL Phosphorus (2.5-4.5) mg/dL Magnesium (1.6-2.3) mg/dL Total Bilirubin (0.2-1.3) mg/dL AST (14-36) U/L ALT (4-34) U/L Alkaline Phosphatase (38-126) U/L Troponin I 0.052 H* (0.000-0.034) ng/mL Total Protein (6.3-8.2) g/dL Albumin (3.5-5.0) g/dL - EKG Data -: EKG Interpreted by Me (EKG is sinus 78 CT 169 QRS 131 QTc 470) - Radiology Data Radiology results: report reviewed (Chest x-ray x-ray KUB negative for acute disease), image reviewed Disposition Clinical Impression: Dizziness, Altered mental status, Generalized weakness, Dehydration, ARF (acute renal failure) Disposition: ADMITTED IP TO THIS HOSP Condition: Fair Is patient prescribed a controlled substance at d/c from ED?: No Time of Disposition: 15:30
[2023-04-27 13:21] LABS: Basophils % (A) 0 %; Eosinophils % (A) 1 %; HCT 34.4 % (34.0-46.0); Lymphocytes # (A) 0.7 k/uL (1.0-4.8); Lymphocytes % (A) 12 %; MCH 29.3 pg (25.0-35.0); MCHC 34.8 g/dL (31.0-37.0); MCV 84.1 fL (80.0-100.0); Mean Platelet Volume 9.8; Monocytes # (A) 0.4 k/uL (0-1.0); Monocytes % (A) 6 %; Neutrophils # (A) 4.4 k/uL (1.3-7.7); Neutrophils % (A) 79 %; Platelet Count 200 k/uL (150-450); RBC 4.09 m/uL (3.80-5.40); RDW 14.7 % (11.5-15.5); WBC 5.5 k/uL (3.8-10.6)
[2023-04-27 13:46] LABS: Prothrombin Time 10.9 sec (10.0-12.5)
[2023-04-27 13:53] LABS: ALT 24 U/L (4-34); AST 48 U/L (14-36); African American GFR (CKD) 31 (>60 ml/min/1.73 sqM); Albumin 3.7 g/dL (3.5-5.0); Alkaline Phosphatase 100 U/L (38-126); Anion Gap 13 mmol/L; Blood Urea Nitrogen 70 mg/dL (7-17); Calcium 8.7 mg/dL (8.4-10.2); Carbon Dioxide 14 mmol/L (22-30); Chloride 109 mmol/L (98-107); Glucose 202 mg/dL (74-99); Magnesium 1.3 mg/dL (1.6-2.3); Non-African American GFR(CKD) 27 (>60 ml/min/1.73 sqM); Phosphorus 3.7 mg/dL (2.5-4.5); Potassium 3.8 mmol/L (3.5-5.1); Sodium 136 mmol/L (137-145); Total Bilirubin 0.6 mg/dL (0.2-1.3); Total Protein 7.2 g/dL (6.3-8.2)
[2023-04-27] MEDS ORDERED: NALOXONE 0.4 MG/ML 1 ML VIAL IV PRN (15:31)
[2023-04-27] MEDS ORDERED: ONDANSETRON 4 MG/2 ML VIAL IVP PRN (15:31)
--- NOTE | 2023-04-27 15:56 | XR ---
EXAMINATION TYPE: XR KUB DATE OF EXAM: 04/27/2023 COMPARISON: NONE HISTORY: Pain TECHNIQUE: Single supine KUB image of the abdomen is obtained FINDINGS: Small bowel demonstrates no evidence for dilatation or air fluid levels. Gas and fecal material is seen in non-distended colon. No convincing evidence for pneumoperitoneum. No unusual calcifications. The lung bases are clear. The osseous structures are intact. IMPRESSION: 1. Overall nonobstructive bowel gas pattern.
--- NOTE | 2023-04-27 15:57 | XR ---
EXAMINATION TYPE: XR chest 1V DATE OF EXAM: 04/27/2023 HISTORY: Shortness of breath. COMPARISON: 05/21/2022 TECHNIQUE: Single view of the chest is submitted. FINDINGS: Demonstrated are scattered senescent parenchymal change. There is no evidence for focal infiltrate. The heart is stable. Hilar and mediastinal structures are within normal limits. Degenerative changes are seen of the dorsal spine. IMPRESSION: 1. Chronic changes without evidence for acute pulmonary disease.
[2023-04-27] MEDS ORDERED: SODIUM CHLORIDE 0.9% 1,000 ML IV ONE (15:59)
[2023-04-27] MEDS: SODIUM CHLORIDE 0.9% 1,000 ML IV SCH (16:20)
[2023-04-27] MEDS: MAGNESIUM SULFATE-D5W PMX 1 GM in DEXTROSE/WATER 1 100ML.BAG IVPB SCH ×2 (16:21→18:37)
[2023-04-27 17:24] LABS: Glucose,Whole Blood 195 mg/dL (70-110)
[2023-04-27 17:43] LABS: Appearance,Urine Cloudy (Clear); Bacteria,Urine Moderate /hpf; Bilirubin,Urine Negative (Negative); Blood,Urine Negative (Negative); Color,Urine Colorless; Glucose,Urine (UA) Negative (Negative); Ketones,Urine Negative (Negative); Leukocyte Esterase,Urine Large (Negative); Mucus,Urine Rare /hpf; Nitrite,Urine Negative (Negative); PH, Urine 5.5 (5.0-8.0); Protein,Urine Trace (Negative); RBC,Urine 3 /hpf (0-5); Specific Gravity,Urine 1.013 (1.001-1.035); Squamous Epithelial Cell,Urine 1 /hpf (0-4); Urobilinogen,Urine <2.0 mg/dL (<2.0); WBC,Urine 128 /hpf (0-5)
[2023-04-27] MEDS ORDERED: ARTIFICIAL TEARS-HYPROMELLOSE DROPS 15 ML BTL BOTH EYES PRN (17:58)
[2023-04-27] MEDS ORDERED: NITROGLYCERIN SL TABS 0.4 MG TAB SUBLINGUAL PRN (17:58)
[2023-04-27] MEDS: INSULIN ASPART (NovoLOG) 100 UNIT/ML VIAL SQ SCH (18:36)
[2023-04-27 19:29] LABS: Glucose,Whole Blood 182 mg/dL (70-110)
--- NOTE | 2023-04-27 19:38 | P.HPIM ---
History of Present Illness H&P Date: 04/27/23 Chief Complaint: Nausea vomiting History of presenting complaint: pleasant 88-year-old patient who follows with Dr. Ramirez. 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 . Left AKA. Patient now presents to the ER with some nausea vomiting. Congested cough a couple of days. Decreased appetite. Had slight loose stool. Denies any fever and chills. Tired rundown. Review of systems: GEN.: Tired EYES: Blind in the right eye HEENT: None NECK: None RESPIRATORY: Congested cough CARDIOVASCULAR: None GASTROINTESTINAL: As above GENITOURINARY: None MUSCULOSKELETAL: Left above-knee amputation LYMPHATICS: None HEMATOLOGICAL: None PSYCHIATRY: None NEUROLOGICAL: None Past medical history to include: CAD, 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 Left above-knee amputation. Social history: Does not smoke or drink alcohol. . Lives in her own house. Has 30/01 caregivers. assist with ADLs. Family history: Cancer. Father of cirrhosis, from alcoholism Physical examination: VITAL SIGNS: 97.7, 74, 20, 150/67, 97% room air GENERAL: BMI 29.3, declining with comfortable EYES: Blind in the right eye. NECK: JVD not raised; masses not palpable. HEART: First and second heart sounds are normal; no edema. LUNGS: Respiratory rate normal; some right basal crackles. ABDOMEN: Soft, nontender, liver spleen not palpable, no masses palpable. PSYCH: Alert and oriented x3; mood and affect normal. MUSCULOSKELETAL:No Clubbing/cyanosis;muscles-grossly intact. Left above-knee amputation. Limited range of motion right shoulder Dressing on the right foot. Chronic ischemic changes of the toes NEUROLOGICAL: Cranial nerves grossly intact; Chronic left-sided weakness. Blind in the right eye. INVESTIGATIONS, reviewed in the clinical context 04/27/2023: White count 5.5 hemoglobin 12 platelets 200 sodium 136 potassium 3.8 BUN 70 creatinine 1.68 Troponin I 0.05 to UA leukoesterase positive, WBC 128 squamous epithelial cells 1 COVID 19 P/Cr: Not detected EKG tracing personally reviewed by me-sinus rhythm. Intraventricular block. Chest x-ray film: Personally reviewed by me: Right basilar infiltrate Assessment and plan: -Right lower lobe pneumonia suspect gram-negative organism IV ceftriaxone. IV Zithromax. Blood culture. -Acute metabolic/toxic encephalopathy, delirium. Improved -Essential hypertension, Lopressor 50 mg twice a day. Zestoretic 20/12.5 once daily Procardia XL 30 mg daily. -chronic right shoulder dysfunction -Coronary artery disease, prior history of bypass 2007 Lopressor, Plavix -Diabetes mellitus type 2 Levemir 20 units daily follow Accu-Cheks and sliding scale -Blind in the right eye, chronic -Left above-knee amputation -Hyperlipidemia Lipitor 40 mg daily at bedtime -Hypothyroidism Synthroid 50 g a day -Primary osteoarthritis Continue pain medications -Diabetic peripheral neuropathy -Chronic urinary incontinence Depend -Full code Discussed with patient. 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, dysphagia,esophageal strictures with dilation, hiatal hernia, L eye diabetic retinopathy/R eye blindness, bilateral [place], UTIS/urinary leakage, past bilateral feet sores/osteomylitis, generalized pain, bilateral carpal tunnel syndrome, vertigo, hypothyroid, anemia History of Any Multi-Drug Resistant Organisms: MRSA Date of last positivie culture/infection: 10/05/22 MDRO Source:: Urine Past Surgical History: Bladder Surgery, Cholecystectomy, Coronary Bypass/CABG, Heart Catheterization, Hysterectomy Additional Past Surgical History / Comment(s): 2007 CABG 4 vessel, EGDs with dilations, colonoscopies, cataract removal, D&C, bladder suspension, PICC, loop recorder, toe amputation may 2021, left AKA Past Anesthesia/Blood Transfusion Reactions: Motion Sickness, Postoperative N ausea & Vomiting (PONV) Past Psychological History: No Psychological Hx Reported Additional Psychological History / Comment(s): Pt resides alone, in May 2021. 30/01 care at home. Pt states she is wheelchair bound at home. She has a glucometer, b/p cuff and shower chair. dinners. Smoking Status: Never smoker Past Alcohol Use History: None Reported Past Drug Use History: None Reported - Past Family History Father Family Medical History: Liver Disease Additional Family Medical History / Comment(s): Father of cirrhosis. He was a drinker. Mother History Unknown: Yes Family Medical History: Unable to Obtain Additional Family Medical History / Comment(s): Pt states she does not know her mother's medical history, but knows she at the age of 62 yrs.. Son(s) Family Medical History: Unable to Obtain, Renal Disease Daughter(s) Family Medical History: Cancer Medications and Allergies Home Medications Medication Instructions Recorded Confirmed Type Atorvastatin [Lipitor] 40 mg PO HS 12/02/20 04/27/23 History Cholecalciferol [Vitamin D3 (25 50 mcg PO DAILY 07/24/21 04/27/23 History Mcg = 1000 Iu)] Cranberry Fruit Extract [Cranberry] 500 mg PO DAILY 07/24/21 04/27/23 History Insulin Aspart [NovoLOG Flexpen] See Protocol SQ AC-TID PRN 12/16/21 04/27/23 History Clopidogrel Bisulfate [Clopidogrel] 75 mg PO DAILY 04/29/22 04/27/23 History Omeprazole [PriLOSEC] 20 mg PO DAILY 04/29/22 04/27/23 History Lisinopril-Hctz 20-12.5 mg 1 tab PO BID 10/05/22 04/27/23 History [Zestoretic 20-12.5] NIFEdipine XL [Procardia XL] 30 mg PO DAILY 10/05/22 04/27/23 History Metoprolol Tartrate [Lopressor] 50 mg PO BID #0 10/11/22 04/27/23 Rx Insulin Glargine,Hum.rec.anlog 20 units SQ DAILY 04/27/23 04/27/23 History [Lantus Solostar Pen] Levothyroxine Sodium [Synthroid] 50 mcg PO HS 04/27/23 04/27/23 History Nitroglycerin Sl Tabs [Nitrostat] 0.4 mg SUBLINGUAL Q5M PRN 04/27/23 04/27/23 History Propylene Glycol [Systane Complete] 1 drop BOTH EYES QID PRN 04/27/23 04/27/23 History Allergies Allergy/AdvReac Type Severity Reaction Status Date / Time aspirin Allergy Rash/Hives Verified 04/27/23 14:29 fish derived Allergy Rash/Hives Verified 04/27/23 14:29 Iodinated Contrast Media Allergy Rash/Hives Verified 04/27/23 14:29 [Iodinated Contrast Media - IV Dye] Iodine and Iodide Containing Allergy Rash/Hives Verified 04/27/23 14:29 Produc shellfish derived [Shellfish] Allergy Rash/Hives Verified 04/27/23 14:29 sulfamethoxazole Allergy Itching Verified 04/27/23 14:29 [From Bactrim] trimethoprim [From Bactrim] Allergy Itching Verified 04/27/23 14:29 Physical Exam Vitals: Vital Signs Temp Pulse Pulse Resp BP BP Pulse Ox 04/27/23 18:00 97.7 F 74 20 150/67 97 04/27/23 16:20 76 18 123/60 99 04/27/23 14:15 78 17 139/58 100 04/27/23 13:00 78 17 128/64 98 04/27/23 12:22 98 F 81 16 122/69 97 Intake and Output 04/27/23 04/27/23 04/27/23 06:59 14:59 22:59 Intake Total 360 Balance 360 Intake: Intake, IV Titration 360 Amount Magnesium Sulfate-D5w Pmx 100 1 gm In Dextrose/Water 1 100ml.bag @ 100 mls/hr IVPB Q1H [facility]ARR[facility] Rx#: [id number] Sodium Chloride 0.9% 1, 260 000 ml @ 130 mls/hr IV . [id number] [facility]ARR[facility] Rx#:[id number] Other: # Voids 1 Weight 68.039 kg 68.039 kg Results CBC & Chem 7: 04/27/23 12:55 04/27/23 12:55 Labs: Abnormal Lab Results - Last 24 Hours (Table) 04/27/23 04/27/23 04/27/23 Range/Units 12:55 12:55 12:55 Lymphocytes # 0.7 L (1.0-4.8) k/uL Sodium 136 L (137-145) mmol/L Chloride 109 H (98-107) mmol/L Carbon Dioxide 14 L (22-30) mmol/L BUN 70 H (7-17) mg/dL Creatinine 1.68 H (0.52-1.04) mg/dL Glucose 202 H (74-99) mg/dL POC Glucose (mg/dL) (70-110) mg/dL Magnesium 1.3 L (1.6-2.3) mg/dL AST 48 H (14-36) U/L Troponin I 0.052 H* (0.000-0.034) ng/mL Urine Appearance (Clear) Urine Protein (Negative) Ur Leukocyte Esterase (Negative) Urine WBC (0-5) /hpf Urine Bacteria (None) /hpf Urine Mucus (None) /hpf 04/27/23 04/27/23 Range/Units 17:10 17:22 Lymphocytes # (1.0-4.8) k/uL Sodium (137-145) mmol/L Chloride (98-107) mmol/L Carbon Dioxide (22-30) mmol/L BUN (7-17) mg/dL Creatinine (0.52-1.04) mg/dL Glucose (74-99) mg/dL POC Glucose (mg/dL) 195 H (70-110) mg/dL Magnesium (1.6-2.3) mg/dL AST (14-36) U/L Troponin I (0.000-0.034) ng/mL Urine Appearance Cloudy H (Clear) Urine Protein Trace H (Negative) Ur Leukocyte Esterase Large H (Negative) Urine WBC 128 H (0-5) /hpf Urine Bacteria Moderate H (None) /hpf Urine Mucus Rare H (None) /hpf Thrombosis Risk Factor Assmnt - Choose All That Apply Any of the Below Risk Factors Present?: Yes Each Factor Represents 1 point: Medical pt on bed rest, Obesity (BMI >25) Each Risk Factor Represents 3 Points: Age 75 years or older Thrombosis Risk Factor Assessment Total Risk Factor Score: 5 Thrombosis Risk Factor Assessment Level: High Risk
[2023-04-27] MEDS: AZITHROMYCIN 500 MG in SODIUM CHLORIDE 0.9% 250 ML IVPB SCH (19:58)
[2023-04-27] MEDS: ATORVASTATIN 40 MG TAB PO SCH (21:08)
[2023-04-27] MEDS: METOPROLOL TARTRATE 50 MG TAB PO SCH (21:08)
[2023-04-27] MEDS: LEVOTHYROXINE 50 MCG TAB PO SCH (21:08)
[2023-04-27] MEDS: LISINOPRIL-HCTZ 20-12.5 MG 1 EACH TAB PO SCH (21:08)
[2023-04-28] MEDS: SODIUM CHLORIDE 0.9% 1,000 ML IV SCH ×3 (00:35→16:23)
[2023-04-28 05:53] LABS: Glucose,Whole Blood 49 mg/dL (70-110)
[2023-04-28] MEDS: DEXTROSE 50% SYRINGE 50 ML IVP PRN (05:54)
[2023-04-28] MEDS: INSULIN ASPART (NovoLOG) 100 UNIT/ML VIAL SQ SCH ×3 (06:00→17:51)
[2023-04-28] MEDS: INSULIN DETEMIR (LEVEMIR) 100 UNIT/ML SYR SQ SCH (06:00)
[2023-04-28] MEDS: CLOPIDOGREL 75 MG TAB PO SCH (08:57)
[2023-04-28] MEDS: METOPROLOL TARTRATE 50 MG TAB PO SCH ×2 (08:57→20:24)
[2023-04-28] MEDS: LISINOPRIL-HCTZ 20-12.5 MG 1 EACH TAB PO SCH ×2 (08:57→20:24)
[2023-04-28] MEDS: PANTOPRAZOLE 40 MG TABLET PO SCH (08:57)
[2023-04-28] MEDS: NIFEdipine XL 30 MG TAB.ER.24 PO SCH (08:57)
[2023-04-28] MEDS ORDERED: PANTOPRAZOLE 40 MG/10 ML VIAL IV SCH (09:00)
[2023-04-28 09:21] LABS: Basophils % (A) 0 %; Eosinophils % (A) 1 %; HCT 33.4 % (34.0-46.0); Lymphocytes # (A) 0.6 k/uL (1.0-4.8); Lymphocytes % (A) 10 %; MCH 28.5 pg (25.0-35.0); MCHC 33.1 g/dL (31.0-37.0); Mean Platelet Volume 8.6; Monocytes # (A) 0.3 k/uL (0-1.0); Monocytes % (A) 5 %; Neutrophils # (A) 4.9 k/uL (1.3-7.7); Neutrophils % (A) 83 %; Platelet Count 200 k/uL (150-450); RBC 3.88 m/uL (3.80-5.40); RDW 14.5 % (11.5-15.5); WBC 5.9 k/uL (3.8-10.6)
[2023-04-28 09:32] LABS: ALT 20 U/L (4-34); AST 38 U/L (14-36); African American GFR (CKD) 69 (>60 ml/min/1.73 sqM); Alkaline Phosphatase 81 U/L (38-126); Anion Gap 9 mmol/L; Blood Urea Nitrogen 35 mg/dL (7-17); Calcium 7.9 mg/dL (8.4-10.2); Carbon Dioxide 17 mmol/L (22-30); Chloride 117 mmol/L (98-107); Glucose 124 mg/dL (74-99); Magnesium 1.7 mg/dL (1.6-2.3); Non-African American GFR(CKD) 60 (>60 ml/min/1.73 sqM); Phosphorus 2.7 mg/dL (2.5-4.5); Potassium 3.7 mmol/L (3.5-5.1); Sodium 143 mmol/L (137-145); Total Bilirubin 0.4 mg/dL (0.2-1.3)
[2023-04-28 11:35] LABS: Glucose,Whole Blood 75 mg/dL (70-110)
--- NOTE | 2023-04-28 14:04 | CT ---
EXAMINATION TYPE: CT brain wo con DATE OF EXAM: 04/28/2023 COMPARISON: 04/29/2022 HISTORY: confusion CT DLP: 1055.[address] of the brain was performed. The ventricles, basal cisterns and sulci overlying the cerebral convexities demonstrate mild enlargem ent. There is no evidence for intracranial hemorrhage or sulcal effacement. Physiologic calcifications of the bilateral basal ganglia. There is decreased attenuation about the periventricular white matter and deep white matter of both c erebral hemispheres, compatible with chronic small vessel ischemia. Differential diagnosis does inclu de demyelination. No mass effects are seen. No midline shift. Osseous calvarium is intact. If symptoms persist consider MRI. IMPRESSION: 1. Age related atrophic and chronic small vessel ischemic change without acute intracranial process s een at this time.
--- NOTE | 2023-04-28 16:18 | P.PN ---
Progress Note - Text Progress Note Date: 04/28/23 Chief Complaint: Nausea vomiting History of presenting complaint: pleasant 88-year-old patient who follows with Dr. Ramirez. 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 . Left AKA. Patient now presents to the ER with some nausea vomiting. Congested cough a couple of days. Decreased appetite. Had slight loose stool. Denies any fever and chills. Tired rundown. April 28: Patient is seen this afternoon. Appears comfortable. Creatinine down to normal. Just very symptoms much better. Plan was to send the patient home. Nurse called me that family member I felt the patient was not looking right. Stat computed tomography scan of the brain was done. Came back unremarkable. We washed the patient overnight. She had about 50% of full breakfast and 75% of her lunch. Active Medications Artificial Tears (Artificial Tears-Hypromellose Drops 15 Ml Btl) 1 drops BOTH EYES QID PRN PRN Reason: DRY EYES Atorvastatin Calcium (Atorvastatin 40 Mg Tab) 40 mg PO HS [facility] Last Admin: 04/27/23 21:08 Dose: 40 mg Clopidogrel Bisulfate (Clopidogrel 75 Mg Tab) 75 mg PO DAILY [facility] Last Admin: 04/28/23 08:57 Dose: 75 mg Dextrose/Water (Dextrose 50% Syringe 50 Ml) 25 ml IVP PER PROTOCOL PRN; Protocol PRN Reason: Hypoglycemia Dextrose/Water (Dextrose 50% Syringe 50 Ml) 50 ml IVP PER PROTOCOL PRN; Protocol PRN Reason: Hypoglycemia Last Admin: 04/28/23 05:54 Dose: 50 ml Lisinopril/HCTZ (Lisinopril-Hctz 20-12.5 Mg 1 Each Tab) 1 each PO BID [facility] Last Admin: 04/28/23 08:57 Dose: 1 each Sodium Chloride (Saline 0.9%) 1,000 mls @ 130 mls/hr IV .Q7H42M [facility] Last Admin: 04/28/23 00:35 Dose: Not Given Azithromycin 500 mg/ Sodium (Chloride) 250 mls @ 250 mls/hr IVPB DAILY@2000 [facility]; Protocol Stop: 04/29/23 20:59 Last Admin: 10/19/23 19:58 Dose: 250 mls/hr Ceftriaxone Sodium 1 gm/ (Sodium Chloride) 50 mls @ 100 mls/hr IVPB Q12HR [facility]; Protocol Last Admin: 04/28/23 08:57 Dose: 100 mls/hr Insulin Aspart (Insulin Aspart (Novolog) 100 Unit/Ml Vial) 0 unit SQ AC-TID [facility]; Protocol Last Admin: 04/28/23 11:48 Dose: Not Given Insulin Detemir (Insulin Detemir (Levemir) 100 Unit/Ml Syr) 20 unit SQ DAILY@0700 [facility] Last Admin: 04/28/23 06:00 Dose: Not Given Levothyroxine Sodium (Levothyroxine 50 Mcg Tab) 50 mcg PO HS [facility] Last Admin: 04/27/23 21:08 Dose: 50 mcg Metoprolol Tartrate (Metoprolol Tartrate 50 Mg Tab) 50 mg PO BID [facility] Last Admin: 04/28/23 08:57 Dose: 50 mg Morphine Sulfate (Morphine Sulfate 4 Mg/Ml Syringe) 4 mg IV Q4HR PRN PRN Reason: Severe Pain (Scale 7 to 10) Naloxone HCl (Naloxone 0.4 Mg/Ml 1 Ml Vial) 0.2 mg IV Q2M PRN PRN Reason: Opioid Reversal Nifedipine (Nifedipine Xl 30 Mg Tab.Er.24) 30 mg PO DAILY [facility] Last Admin: 04/28/23 08:57 Dose: 30 mg Nitroglycerin (Nitroglycerin Sl Tabs 0.4 Mg Tab) 0.4 mg SUBLINGUAL Q5M PRN PRN Reason: Chest Pain Ondansetron HCl (Ondansetron 4 Mg/2 Ml Vial) 4 mg IVP Q8HR PRN PRN Reason: Nausea And Vomiting Pantoprazole Sodium (Pantoprazole 40 Mg Tablet) 40 mg PO DAILY [facility] Last Admin: 04/28/23 08:57 Dose: 40 mg Past medical history to include: CAD, 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 Left above-knee amputation. Social history: Does not smoke or drink alcohol. . Lives in her own house. Has 24/7 caregivers. assist with ADLs. Family history: Cancer. Father of cirrhosis, from alcoholism Physical examination: VITAL SIGNS: 97.4, 56, 18, 160 once a 84, 98% room air GENERAL: Sitting up, comfortable EYES: Blind in the right eye. NECK: JVD not raised; masses not palpable. HEART: First and second heart sounds are normal; no edema. LUNGS: Respiratory rate normal; some right basal crackles. ABDOMEN: Soft, nontender, liver spleen not palpable, no masses palpable. PSYCH: Able to answer simple questions MUSCULOSKELETAL:No Clubbing/cyanosis;muscles-grossly intact. Left above-knee amputation. Limited range of motion right shoulder Dressing on the right foot. Chronic ischemic changes of the toes NEUROLOGICAL: Cranial nerves grossly intact; Chronic left-sided weakness. Blind in the right eye. INVESTIGATIONS, reviewed in the clinical context April 28: White count 5.9 hemoglobin 11 potassium 3.7 creatinine 0.87 04/27/2023: White count 5.5 hemoglobin 12 platelets 200 sodium 136 potassium 3.8 BUN 70 creatinine 1.68 Troponin I 0.05 to UA leukoesterase positive, WBC 128 squamous epithelial cells 1 COVID 19 P/Cr: Not detected EKG tracing personally reviewed by me-sinus rhythm. Intraventricular block. Chest x-ray film: Personally reviewed by me: Right basilar infiltrate Assessment and plan: -Right lower lobe pneumonia suspect gram-negative organism: Improving IV ceftriaxone. IV Zithromax. Blood culture. -Acute metabolic/toxic encephalopathy, delirium. Better -Essential hypertension, Lopressor 50 mg twice a day. Zestoretic 20/12.5 once daily Procardia XL 30 mg daily. -chronic right shoulder dysfunction -Coronary artery disease, prior history of bypass 2007 Lopressor, Plavix -Diabetes mellitus type 2 Levemir 20 units daily follow Accu-Cheks and sliding scale -Blind in the right eye, chronic -Left above-knee amputation -Hyperlipidemia Lipitor 40 mg daily at bedtime -Hypothyroidism Synthroid 50 g a day -Primary osteoarthritis Continue pain medications -Diabetic peripheral neuropathy -Chronic urinary incontinence Depend -Full code Computed tomography scan brain done today unremarkable. Hold discharged tomorrow and observation overnight.
[2023-04-28] MEDS ORDERED: ACETAMINOPHEN TAB 500 MG TAB PO PRN (16:30)
[2023-04-28 16:48] LABS: Glucose,Whole Blood 70 mg/dL (70-110)
[2023-04-28] MEDS: SODIUM BICARBONATE TAB 650 MG TAB PO SCH ×2 (17:47→20:24)
[2023-04-28 18:23] LABS: Glucose,Whole Blood 114 mg/dL (70-110)
[2023-04-28 20:14] LABS: Glucose,Whole Blood 71 mg/dL (70-110)
[2023-04-28] MEDS: AZITHROMYCIN 500 MG in SODIUM CHLORIDE 0.9% 250 ML IVPB SCH (20:18)
[2023-04-28] MEDS: LEVOTHYROXINE 50 MCG TAB PO SCH (20:24)
[2023-04-28] MEDS: ATORVASTATIN 40 MG TAB PO SCH (20:24)
[2023-04-29 01:10] LABS: Glucose,Whole Blood 56 mg/dL (70-110)
[2023-04-29] MEDS: DEXTROSE 50% SYRINGE 50 ML IVP PRN ×2 (01:12→11:55)
[2023-04-29 01:40] LABS: Glucose,Whole Blood 238 mg/dL (70-110)
[2023-04-29 06:52] LABS: Glucose,Whole Blood 74 mg/dL (70-110)
[2023-04-29] MEDS: INSULIN ASPART (NovoLOG) 100 UNIT/ML VIAL SQ SCH ×3 (06:56→17:38)
[2023-04-29] MEDS: INSULIN DETEMIR (LEVEMIR) 100 UNIT/ML SYR SQ SCH (06:56)
[2023-04-29] MEDS: CLOPIDOGREL 75 MG TAB PO SCH (09:44)
[2023-04-29] MEDS: METOPROLOL TARTRATE 50 MG TAB PO SCH ×2 (09:44→21:54)
[2023-04-29] MEDS: LISINOPRIL-HCTZ 20-12.5 MG 1 EACH TAB PO SCH ×2 (09:44→21:54)
[2023-04-29] MEDS: SODIUM BICARBONATE TAB 650 MG TAB PO SCH ×3 (10:00→21:54)
[2023-04-29] MEDS: PANTOPRAZOLE 40 MG TABLET PO SCH (10:00)
[2023-04-29] MEDS: MORPHINE SULFATE 4 MG/ML SYRINGE IV PRN ×2 (10:01→18:10)
[2023-04-29 11:38] LABS: Glucose,Whole Blood 52 mg/dL (70-110)
[2023-04-29 11:38] LABS: Glucose,Whole Blood 49 mg/dL (70-110)
[2023-04-29 12:07] LABS: Glucose,Whole Blood 132 mg/dL (70-110)
[2023-04-29 15:12] VITALS: BMI 25.0
--- NOTE | 2023-04-29 15:24 | P.PN ---
Progress Note - Text Progress Note Date: 04/29/23 Chief Complaint: Nausea vomiting History of presenting complaint: pleasant 88-year-old patient who follows with Dr. Ramirez. 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 . Left AKA. Patient now presents to the ER with some nausea vomiting. Congested cough a couple of days. Decreased appetite. Had slight loose stool. Denies any fever and chills. Tired rundown. April 28: Patient is seen this afternoon. Appears comfortable. Creatinine down to normal. Just very symptoms much better. Plan was to send the patient home. Nurse called me that family member I felt the patient was not looking right. Stat computed tomography scan of the brain was done. Came back unremarkable. We washed the patient overnight. She had about 50% of full breakfast and 75% of her lunch. April 29: Hypoglycemia of 52 dose morning. 56 at 1:00 this morning. Lantus being discontinued. Encourage oral intake. All feeding with assistance. Active Medications Acetaminophen (Acetaminophen Tab 500 Mg Tab) 500 mg PO Q6HR PRN PRN Reason: Fever and/ or Pain Last Admin: 04/28/23 17:47 Dose: 500 mg Artificial Tears (Artificial Tears-Hypromellose Drops 15 Ml Btl) 1 drops BOTH EYES QID PRN PRN Reason: DRY EYES Atorvastatin Calcium (Atorvastatin 40 Mg Tab) 40 mg PO HS [facility] Last Admin: 04/28/23 20:24 Dose: Not Given Clopidogrel Bisulfate (Clopidogrel 75 Mg Tab) 75 mg PO DAILY [facility] Last Admin: 04/29/23 09:44 Dose: 75 mg Dextrose/Water (Dextrose 50% Syringe 50 Ml) 25 ml IVP PER PROTOCOL PRN; Protocol PRN Reason: Hypoglycemia Last Admin: 04/29/23 11:55 Dose: 25 ml Dextrose/Water (Dextrose 50% Syringe 50 Ml) 50 ml IVP PER PROTOCOL PRN; Protocol PRN Reason: Hypoglycemia Last Admin: 04/29/23 01:12 Dose: 50 ml Lisinopril/HCTZ (Lisinopril-Hctz 20-12.5 Mg 1 Each Tab) 1 each PO BID [facility] Last Admin: 04/29/23 09:44 Dose: 1 each Azithromycin 500 mg/ Sodium (Chloride) 250 mls @ 250 mls/hr IVPB DAILY@1999 [facility]; Protocol Stop: 04/29/23 20:59 Last Admin: 04/28/23 20:18 Dose: 250 mls/hr Ceftriaxone Sodium 1 gm/ (Sodium Chloride) 50 mls @ 100 mls/hr IVPB Q12HR [facility]; Protocol Last Admin: 04/29/23 09:43 Dose: 100 mls/hr Insulin Aspart (Insulin Aspart (Novolog) 100 Unit/Ml Vial) 0 unit SQ AC-TID [facility]; Protocol Last Admin: 04/29/23 11:56 Dose: Not Given Levothyroxine Sodium (Levothyroxine 50 Mcg Tab) 50 mcg PO HS [facility] Last Admin: 04/28/23 20:24 Dose: Not Given Metoprolol Tartrate (Metoprolol Tartrate 50 Mg Tab) 50 mg PO BID [facility] Last Admin: 04/29/23 09:44 Dose: 50 mg Morphine Sulfate (Morphine Sulfate 4 Mg/Ml Syringe) 4 mg IV Q4HR PRN PRN Reason: Severe Pain (Scale 7 to 10) Last Admin: 04/29/23 10:01 Dose: 4 mg Naloxone HCl (Naloxone 0.4 Mg/Ml 1 Ml Vial) 0.2 mg IV Q2M PRN PRN Reason: Opioid Reversal Nifedipine (Nifedipine Xl 30 Mg Tab.Er.24) 30 mg PO DAILY [facility] Last Admin: 04/28/23 08:57 Dose: 30 mg Nitroglycerin (Nitroglycerin Sl Tabs 0.4 Mg Tab) 0.4 mg SUBLINGUAL Q5M PRN PRN Reason: Chest Pain Ondansetron HCl (Ondansetron 4 Mg/2 Ml Vial) 4 mg IVP Q8HR PRN PRN Reason: Nausea And Vomiting Last Admin: 04/29/23 10:05 Dose: 4 mg Pantoprazole Sodium (Pantoprazole 40 Mg Tablet) 40 mg PO DAILY [facility] Last Admin: 04/29/23 10:00 Dose: 40 mg Sodium Bicarbonate (Sodium Bicarbonate Tab 650 Mg Tab) 650 mg PO TID [facility] Last Admin: 04/29/23 10:00 Dose: 650 mg Past medical history to include: CAD, 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 Left above-knee amputation. Social history: Does not smoke or drink alcohol. . Lives in her own house. Has 24/7 caregivers. assist with ADLs. Family history: Cancer. Father of cirrhosis, from alcoholism Physical examination: VITAL SIGNS: 97.7, 51, 18, 1 47 x 55, 99% room air GENERAL: Laying in bed, comfortable EYES: Blind in the right eye. NECK: JVD not raised; masses not palpable. HEART: First and second heart sounds are normal; no edema. LUNGS: Respiratory rate normal; some right basal crackles. ABDOMEN: Soft, nontender, liver spleen not palpable, no masses palpable. PSYCH: Able to answer simple questions MUSCULOSKELETAL:No Clubbing/cyanosis;muscles-grossly intact. Left above-knee amputation. Limited range of motion right shoulder Dressing on the right foot. Chronic ischemic changes of the toes NEUROLOGICAL: Cranial nerves grossly intact; Chronic left-sided weakness. Blind in the right eye. INVESTIGATIONS, reviewed in the clinical context April 28: White count 5.9 hemoglobin 11 potassium 3.7 creatinine 0.87 04/27/2023: White count 5.5 hemoglobin 12 platelets 200 sodium 136 potassium 3.8 BUN 70 creatinine 1.68 Troponin I 0.05 to UA leukoesterase positive, WBC 128 squamous epithelial cells 1 COVID 19 P/Cr: Not detected EKG tracing personally reviewed by me-sinus rhythm. Intraventricular block. Chest x-ray film: Personally reviewed by me: Right basilar infiltrate Assessment and plan: -Right lower lobe pneumonia suspect gram-negative organism: Improving IV ceftriaxone. IV Zithromax. Blood culture. -Acute metabolic/toxic encephalopathy, delirium. Better -Essential hypertension, Lopressor 50 mg twice a day. Zestoretic 28/06.5 once daily Procardia XL 30 mg daily. -chronic right shoulder dysfunction -Coronary artery disease, prior history of bypass 2007 Lopressor, Plavix -Diabetes mellitus type 2 , uncontrolled with hypoglycemia Stop Levemir follow Accu-Cheks and sliding scale -Blind in the right eye, chronic -Left above-knee amputation -Hyperlipidemia Lipitor 40 mg daily at bedtime -Hypothyroidism Synthroid 50 g a day -Primary osteoarthritis Continue pain medications -Diabetic peripheral neuropathy -Chronic urinary incontinence Depend -Full code Stop Levemir
[2023-04-29 16:30] LABS: Glucose,Whole Blood 69 mg/dL (70-110)
[2023-04-29 16:33] LABS: Glucose,Whole Blood 61 mg/dL (70-110)
[2023-04-29 16:50] LABS: Glucose,Whole Blood 65 mg/dL (70-110)
[2023-04-29 17:40] LABS: Glucose,Whole Blood 89 mg/dL (70-110)
[2023-04-29] MEDS: NIFEdipine XL 30 MG TAB.ER.24 PO SCH (18:09)
[2023-04-29 19:01] LABS: Glucose,Whole Blood 86 mg/dL (70-110)
[2023-04-29] MEDS: AZITHROMYCIN 500 MG in SODIUM CHLORIDE 0.9% 250 ML IVPB SCH (19:58)
[2023-04-29] MEDS: LEVOTHYROXINE 50 MCG TAB PO SCH (21:54)
[2023-04-29] MEDS: ATORVASTATIN 40 MG TAB PO SCH (21:54)
[2023-04-29 22:51] LABS: Glucose,Whole Blood 84 mg/dL (70-110)
[2023-04-30 01:57] LABS: Glucose,Whole Blood 66 mg/dL (70-110)
[2023-04-30 02:34] LABS: Glucose,Whole Blood 87 mg/dL (70-110)
[2023-04-30 05:37] LABS: Glucose,Whole Blood 73 mg/dL (70-110)
[2023-04-30] MEDS: INSULIN ASPART (NovoLOG) 100 UNIT/ML VIAL SQ SCH ×3 (06:52→17:15)
[2023-04-30] MEDS: METOPROLOL TARTRATE 50 MG TAB PO SCH (09:43)
[2023-04-30] MEDS: PANTOPRAZOLE 40 MG TABLET PO SCH (09:43)
[2023-04-30] MEDS: NIFEdipine XL 30 MG TAB.ER.24 PO SCH (09:43)
[2023-04-30] MEDS: CLOPIDOGREL 75 MG TAB PO SCH (09:43)
[2023-04-30] MEDS: LISINOPRIL-HCTZ 20-12.5 MG 1 EACH TAB PO SCH (09:43)
[2023-04-30] MEDS: SODIUM BICARBONATE TAB 650 MG TAB PO SCH ×2 (09:43→17:15)
[2023-04-30 11:42] LABS: Glucose,Whole Blood 73 mg/dL (70-110)
--- NOTE | 2023-04-30 13:28 | P.DS ---
Providers Date of admission: 04/27/23 15:48 Expected date of discharge: 04/30/23 Attending physician: Elan Nagel Primary care physician: Esvin Ramirez [facility] Course: Chief Complaint: Nausea vomiting History of presenting complaint: pleasant 88-year-old patient who follows with Dr. Ramirez. 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 . Left AKA. Patient now presents to the ER with some nausea vomiting. Congested cough a couple of days. Decreased appetite. Had slight loose stool. Denies any fever and chills. Tired rundown. April 28: Patient is seen this afternoon. Appears comfortable. Creatinine down to normal. Just very symptoms much better. Plan was to send the patient home. Nurse called me that family member I felt the patient was not looking right. Stat computed tomography scan of the brain was done. Came back unremarkable. We washed the patient overnight. She had about 50% of full breakfast and 75% of her lunch. April 29: Hypoglycemia of 52 dose morning. 56 at 1:00 this morning. Lantus being discontinued. Encourage oral intake. All feeding with assistance. April 30: Patient had to be encouraged to eat. Patient denies percentage and coffee. Lantus had been discontinued. Spoke to patient's daughter Dinora. She understands patient's problem is a gentleman comorbidities. We'll take the patient home today. Antibiotic dose completed. 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 Left above-knee amputation. Social history: Does not smoke or drink alcohol. . Lives in her own house. Has 24/7 caregivers. assist with ADLs. Family history: Cancer. Father of cirrhosis, from alcoholism Physical examination: VITAL SIGNS: 98.5, 70, 17, 132/59, 96% room air GENERAL: Laying in bed, comfortable EYES: Blind in the right eye. NECK: JVD not raised; masses not palpable. HEART: First and second heart sounds are normal; no edema. LUNGS: Respiratory rate normal; some right basal crackles. ABDOMEN: Soft, nontender, liver spleen not palpable, no masses palpable. PSYCH: Able to answer simple questions MUSCULOSKELETAL:No Clubbing/cyanosis;muscles-grossly intact. Left above-knee amputation. Limited range of motion right shoulder Dressing on the right foot. Chronic ischemic changes of the toes NEUROLOGICAL: Cranial nerves grossly intact; Chronic left-sided weakness. Blind in the right eye. INVESTIGATIONS, reviewed in the clinical context April 28: White count 5.9 hemoglobin 11 potassium 3.7 creatinine 0.87 04/27/2023: White count 5.5 hemoglobin 12 platelets 200 sodium 136 potassium 3.8 BUN 70 creatinine 1.68 Troponin I 0.05 to UA leukoesterase positive, WBC 128 squamous epithelial cells 1 COVID 19 P/Cr: Not detected EKG tracing personally reviewed by me-sinus rhythm. Intraventricular block. Chest x-ray film: Personally reviewed by me: Right basilar infiltrate Assessment and plan: -Right lower lobe pneumonia suspect gram-negative organism: Improved IV ceftriaxone. IV Zithromax. -Antibiotic completed -Acute metabolic/toxic encephalopathy, delirium. Better -Essential hypertension, Lopressor 50 mg twice a day. Zestoretic 20/12.5 once daily Procardia XL 30 mg daily. -chronic right shoulder dysfunction -Coronary artery disease, prior history of bypass 2008 Lopressor, Plavix -Diabetes mellitus type 2 , uncontrolled with hypoglycemia, because of decreased oral intake Levemir discontinued -Blind in the right eye, chronic -Left above-knee amputation -Hyperlipidemia Lipitor 40 mg daily at bedtime -Hypothyroidism Synthroid 50 g a day -Primary osteoarthritis Continue pain medications -Diabetic peripheral neuropathy -Chronic urinary incontinence Depend -DO NOT RESUSCITATE Disposition: Home Plan - Discharge Summary Discharge Rx Participant: No New Discharge Prescriptions: New Acetaminophen Tab [Tylenol] 500 mg PO Q6HR PRN tab PRN Reason: Fever And/ Or Pain Continue Atorvastatin [Lipitor] 40 mg PO HS Cranberry Fruit Extract [Cranberry] 500 mg PO DAILY Cholecalciferol [Vitamin D3 (25 Mcg = 1000 Iu)] 50 mcg PO DAILY Metoprolol Tartrate [Lopressor] 50 mg PO BID #0 Levothyroxine Sodium [Synthroid] 50 mcg PO HS Nitroglycerin Sl Tabs [Nitrostat] 0.4 mg SUBLINGUAL Q5M PRN PRN Reason: Chest Pain Insulin Aspart [NovoLOG Flexpen] See Protocol SQ AC-TID PRN PRN Reason: high blood sugar, >150 Omeprazole [PriLOSEC] 20 mg PO DAILY Clopidogrel Bisulfate [Clopidogrel] 75 mg PO DAILY NIFEdipine XL [Procardia XL] 30 mg PO DAILY Lisinopril-Hctz 20-12.5 mg [Zestoretic 20-12.5] 1 tab PO BID Propylene Glycol [Systane Complete] 1 drop BOTH EYES QID PRN PRN Reason: DRY EYES Discontinued Insulin Glargine,Hum.rec.anlog [Lantus Solostar Pen] 20 units SQ DAILY Discharge Medication List Atorvastatin [Lipitor] 40 mg PO HS 12/02/20 [History] Cholecalciferol [Vitamin D3 (25 Mcg = 1000 Iu)] 50 mcg PO DAILY 07/24/21 [Histor y] Cranberry Fruit Extract [Cranberry] 500 mg PO DAILY 07/24/21 [History] Insulin Aspart [NovoLOG Flexpen] See Protocol SQ AC-TID PRN 12/16/21 [History] Clopidogrel Bisulfate [Clopidogrel] 75 mg PO DAILY 04/29/22 [History] Omeprazole [PriLOSEC] 20 mg PO DAILY 04/29/22 [History] Lisinopril-Hctz 20-12.5 mg [Zestoretic 20-12.5] 1 tab PO BID 10/05/22 [History] NIFEdipine XL [Procardia XL] 30 mg PO DAILY 10/05/22 [History] Metoprolol Tartrate [Lopressor] 50 mg PO BID #0 10/11/22 [Rx] Levothyroxine Sodium [Synthroid] 50 mcg PO HS 04/27/23 [History] Nitroglycerin Sl Tabs [Nitrostat] 0.4 mg SUBLINGUAL Q5M PRN 04/27/23 [History] Propylene Glycol [Systane Complete] 1 drop BOTH EYES QID PRN 04/27/23 [History] Acetaminophen Tab [Tylenol] 500 mg PO Q6HR PRN tab 04/29/23 [Rx] Follow up Appointment(s)/Referral(s): Esvin Ramirez DO [Primary Care Provider] - 1-2 days [facility] Nurse, [NON-STAFF] - 1 Week
[2023-04-30 14:33] VITALS: BP 177/80; PULSE 69; RESP 18; TEMP 98.4
[2023-04-30 16:44] LABS: Glucose,Whole Blood 58 mg/dL (70-110)
[2023-04-30] MEDS: DEXTROSE 50% SYRINGE 50 ML IVP PRN (17:11)
[2023-04-30 17:37] LABS: Glucose,Whole Blood 177 mg/dL (70-110)
== END 2023-04-30 18:11 | disposition home health service (06) | DRG 177 ==
LOC: EC 12:15 → 3SCARD 15:48 → 4SSUR 04-29 03:01
PROVIDERS: ADMIT Hospitalist; ATTEND Hospitalist
DX: J15.69 Pneumonia due to other Gram-negative bacteria (principal); G92.8 Other toxic encephalopathy; I69.354 Hemiplegia and hemiparesis following cerebral infarction affecting left non-dominant side; N17.9 Acute kidney failure, unspecified; E86.0 Dehydration; E03.9 Hypothyroidism, unspecified; E11.42 Type 2 diabetes mellitus with diabetic polyneuropathy; M21.821 Other specified acquired deformities of right upper arm; H91.90 Unspecified hearing loss, unspecified ear; E11.319 Type 2 diabetes mellitus with unspecified diabetic retinopathy without macular edema; E11.649 Type 2 diabetes mellitus with hypoglycemia without coma; E78.5 Hyperlipidemia, unspecified; H54.61 Unqualified visual loss, right eye, normal vision left eye; I10 Essential (primary) hypertension; I25.10 Atherosclerotic heart disease of native coronary artery without angina pectoris; R32 Unspecified urinary incontinence; M19.91 Primary osteoarthritis, unspecified site; Z66 Do not resuscitate; Z89.612 Acquired absence of left leg above knee; Z87.440 Personal history of urinary (tract) infections; Z60.2 Problems related to living alone; Z99.3 Dependence on wheelchair; Z79.4 Long term (current) use of insulin; Z79.02 Long term (current) use of antithrombotics/antiplatelets; Z79.84 Long term (current) use of oral hypoglycemic drugs; Z79.890 Hormone replacement therapy; Z79.899 Other long term (current) drug therapy; Z95.1 Presence of aortocoronary bypass graft; Z88.2 Allergy status to sulfonamides; Z88.6 Allergy status to analgesic agent; Z91.041 Radiographic dye allergy status; Z91.013 Allergy to seafood; Z79.82 Long term (current) use of aspirin
CPT/HCPCS: 36415; 70450; 71045; 74018; 80053; 81001; 83036; 83605; 83735; 84100; 84484; 85025; 85610; 85730; 87040; 93005; 94760; 96361; 96365; 96375; 99285

== ENCOUNTER 2023-05-01 16:56 | Emergency (ER) | payer MEDICARE, OTHER ==
[2023-05-01 17:06] LABS: Glucose,Whole Blood 50 mg/dL (70-110)
[2023-05-01 17:15] VITALS: RESP 18
[2023-05-01] MEDS ORDERED: DEXTROSE 50% SYRINGE 50 ML IVP STA (17:23)
[2023-05-01 17:50] LABS: Basophils % (A) 0 %; Eosinophils # (A) 0.1 k/uL (0-0.7); Eosinophils % (A) 1 %; HCT 35.6 % (34.0-46.0); Lymphocytes # (A) 0.9 k/uL (1.0-4.8); Lymphocytes % (A) 10 %; MCHC 33.7 g/dL (31.0-37.0); Mean Platelet Volume 8.2; Monocytes # (A) 0.4 k/uL (0-1.0); Monocytes % (A) 5 %; Neutrophils # (A) 7.6 k/uL (1.3-7.7); Neutrophils % (A) 84 %; Platelet Count 274 k/uL (150-450); RBC 4.28 m/uL (3.80-5.40); RDW 14.4 % (11.5-15.5); WBC 9.1 k/uL (3.8-10.6)
--- NOTE | 2023-05-01 17:55 | ED ---
General Adult HPI - General Chief complaint: Altered Mental Status Stated complaint: AMS Time Seen by Provider: 05/01/23 17:14 Source: patient, EMS, RN notes reviewed, old records reviewed Mode of arrival: EMS Limitations: no limitations - History of Present Illness Initial comments: 88 yo female presenting with confusion, hypoglycemia. Patient is a known diabetic. She is on NovoLog and Lantus. She is alert and oriented at the time my evaluation. She had initial blood sugar of 50 which was treated with dextrose. No complaints. Her daughter is at bedside states that she was discharged yesterday but they have not been checking her blood sugar regularly. - Related Data Home Medications Medication Instructions Recorded Confirmed Atorvastatin [Lipitor] 40 mg PO HS 12/02/20 04/27/23 Cholecalciferol [Vitamin D3 (25 50 mcg PO DAILY 07/24/21 04/27/23 Mcg = 1000 Iu)] Cranberry Fruit Extract [Cranberry] 500 mg PO DAILY 07/24/21 04/27/23 Insulin Aspart [NovoLOG Flexpen] See Protocol SQ AC-TID PRN 12/16/21 04/27/23 Clopidogrel Bisulfate [Clopidogrel] 75 mg PO DAILY 04/29/22 04/27/23 Omeprazole [PriLOSEC] 20 mg PO DAILY 04/29/22 04/27/23 Lisinopril-Hctz 20-12.5 mg 1 tab PO BID 10/05/22 04/27/23 [Zestoretic 20-12.5] NIFEdipine XL [Procardia XL] 30 mg PO DAILY 10/05/22 04/27/23 Levothyroxine Sodium [Synthroid] 50 mcg PO HS 04/27/23 04/27/23 Nitroglycerin Sl Tabs [Nitrostat] 0.4 mg SUBLINGUAL Q5M PRN 04/27/23 04/27/23 Propylene Glycol [Systane Complete] 1 drop BOTH EYES QID PRN 04/27/23 04/27/23 Previous Rx's Medication Instructions Recorded Metoprolol Tartrate [Lopressor] 50 mg PO BID #0 10/11/22 Acetaminophen Tab [Tylenol] 500 mg PO Q6HR PRN tab 04/29/23 Allergies Allergy/AdvReac Type Severity Reaction Status Date / Time aspirin Allergy Rash/Hives Verified 05/01/23 17:10 fish derived Allergy Rash/Hives Verified 05/01/23 17:10 Iodinated Contrast Media Allergy Rash/Hives Verified 05/01/23 17:10 [Iodinated Contrast Media - IV Dye] Iodine and Iodide Containing Allergy Rash/Hives Verified 05/01/23 17:10 Produc shellfish derived [Shellfish] Allergy Rash/Hives Verified 05/01/23 17:10 sulfamethoxazole Allergy Itching Verified 05/01/23 17:10 [From Bactrim] trimethoprim [From Bactrim] Allergy Itching Verified 05/01/23 17:10 Review of Systems ROS Statement: Those systems with pertinent positive or pertinent negative responses have been documented in the HPI. ROS Other: All systems not noted in ROS Statement are negative. 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, dysphagia,esophageal strictures with dilation, hiatal hernia, L eye diabetic retinopathy/R eye blindness, bilateral [place], UTIS/urinary leakage, past bilateral feet sores/osteomylitis, generalized pain, bilateral carpal tunnel syndrome, vertigo, hypothyroid, anemia History of Any Multi-Drug Resistant Organisms: MRSA Date of last positivie culture/infection: 10/05/22 MDRO Source:: Urine Past Surgical History: Bladder Surgery, Cholecystectomy, Coronary Bypass/CABG, Heart Catheterization, Hysterectomy Additional Past Surgical History / Comment(s): 2007 CABG 4 vessel, EGDs with dilations, colonoscopies, cataract removal, D&C, bladder suspension, PICC, loop recorder, toe amputation may 2021, left AKA Past Anesthesia/Blood Transfusion Reactions: Motion Sickness, Postoperative [place] & Vomiting (PONV) Past Psychological History: No Psychological Hx Reported Smoking Status: Never smoker - Past Family History Father Family Medical History: Liver Disease Additional Family Medical History / Comment(s): Father of cirrhosis. He was a drinker. Mother History Unknown: Yes Family Medical History: Unable to Obtain Additional Family Medical History / Comment(s): Pt states she does not know her mother's medical history, but knows she at the age of 62 yrs.. Son(s) Family Medical History: Unable to Obtain, Renal Disease Daughter(s) Family Medical History: Cancer General Exam Limitations: no limitations General appearance: alert, in no apparent distress Head exam: Present: atraumatic, normocephalic Eye exam: Present: normal appearance, PERRL ENT exam: Present: normal exam Neck exam: Present: normal inspection. Absent: tenderness, meningismus Respiratory exam: Present: normal lung sounds bilaterally. Absent: respiratory distress, wheezes Cardiovascular Exam: Present: regular rate, normal rhythm GI/Abdominal exam: Present: soft. Absent: distended, tenderness, guarding Extremities exam: Present: normal inspection, normal capillary refill. Absent: pedal edema Neurological exam: Present: alert, oriented X3, CN II-XII intact. Absent: motor sensory deficit Psychiatric exam: Present: normal affect, normal mood Skin exam: Present: warm, dry, intact. Absent: cyanosis, diaphoretic Course Vital Signs 05/01/23 16:58 Temperature 98.3 F Pulse Rate 84 Respiratory 18 Rate Blood Pressure 161/80 O2 Sat by Pulse 97 Oximetry Medical Decision Making - Medical Decision Making Was pt. sent in by a medical professional or institution (, PA, FLORAL ARRANGER, urgent care, hospital, or long-term...) When possible be specific @ -No Did you speak to anyone other than the patient for history (EMS, parent, family, police, friend...)? What history was obtained from this source @History obtained from daughter and patient Did you review nursing and triage notes (agree or disagree)? Why? @ -I reviewed and agree with nursing and triage notes Were old charts reviewed (outside hosp., previous admission, EMS record, old EKG, old radiological studies, urgent care reports/EKG's, long-term records)? Report findings @ -No old charts were reviewed Differential Diagnosis (chest pain, altered mental status, abdominal pain women, abdominal pain men, vaginal bleeding, weakness, fever, dyspnea, syncope, headache, dizziness, GI bleed, back pain, seizure, CVA, palpatations, mental health, musculoskeletal)? @ Differential Altered Mental Status: Hypoglycemia, DKA, hypercapnia, ETOH, overdose, CO poisoning, trauma, myxedema coma, HTN encephalopathy, infection, encephalitis, psychosis, intercranial hemorrhage, hepatic encephalopathy, meningitis, CVA, this is not meant to be an all-inclusive list EKG interpreted by me (3pts min.). @ -As above X-rays interpreted by me (1pt min.). @ -None done CT interpreted by me (1pt min.). @ -None done U/S interpreted by me (1pt. min.). @ -None done What testing was considered but not performed or refused? (CT, X-rays, U/S, labs)? Why? @ -None What meds were considered but not given or refused? Why? @ -None Did you discuss the management of the patient with other professionals (professionals i.e. Dr., PA, FLORAL ARRANGER, lab, RT, psych nurse, social media director, mechanical maintenance foreman, teacher, life science technical officer, community case manager)? Give summary @ -No Was smoking cessation discussed for >3mins.? @ -No Was critical care preformed (if so, how long)? @ -No Were there social determinants of health that impacted care today? How? (Homelessness, low income, unemployed, alcoholism, drug addiction, transportation, low edu. Level, literacy, decrease access to med. care, halfway, rehab)? @ -No Was there de-escalation of care discussed even if they declined (Discuss DNR or withdrawal of care, Hospice)? DNR status @ -No What co-morbidities impacted this encounter? (DM, HTN, Smoking, COPD, CAD, Cancer, CVA, ARF, Chemo, Hep., AIDS, mental health diagnosis, sleep apnea, morbid obesity)? @ -[Insulin dependent diabetic Was patient admitted / discharged? Hospital course, mention meds given and route, prescriptions, significant lab abnormalities, going to OR and other pertinent info. @ -[88-year-old female with multiple medical problems presents with altered me ntal status and hypoglycemia. Initial blood sugar 50. This is treated with IV dextrose. Patient's mental status improves to baseline. This is confirmed by daughter who is present. Patient has no other complaints. Both are eager for discharge. Will monitor blood glucose closely at home. Undiagnosed new problem with uncertain prognosis? @ -No Drug Therapy requiring intensive monitoring for toxicity (Heparin, Nitro, Insulin, Cardizem)? @ -No Were any procedures done? @ -No Diagnosis/symptom? @ hypoglycemia, resolved Acute, or Chronic, or Acute on Chronic? @ -[Acute Uncomplicated (without systemic symptoms) or Complicated (systemic symptoms)? @ -[Complicated Side effects of treatment? @ -No Exacerbation, Progression, or Severe Exacerbation? @ -No Poses a threat to life or bodily function? How? (Chest pain, [place], [place], pneumonia, PE, COPD, DKA, ARF, appy, cholecystitis, CVA, Diverticulitis, Homicidal, Suicidal, threat to staff... and all critical care pts) @ -[Low risk at this time - Lab Data Result diagrams: 05/01/23 17:33 05/01/23 17:33 Lab Results 05/01/23 05/01/23 05/01/23 Range/Units 17:05 17:33 17:33 WBC 9.1 (3.8-10.6) k/uL RBC 4.28 (3.80-5.40) m/uL Hgb 12.0 (11.4-16.0) gm/dL Hct 35.6 (34.0-46.0) % MCV 83.0 (80.0-100.0) fL MCH 28.0 (25.0-35.0) pg MCHC 33.7 (31.0-37.0) g/dL RDW 14.4 (11.5-15.5) % Plt Count 274 (150-450) k/uL MPV 8.2 Neutrophils % 84 % Lymphocytes % 10 % Monocytes % 5 % Eosinophils % 1 % Basophils % 0 % Neutrophils # 7.6 (1.3-7.7) k/uL Lymphocytes # 0.9 L (1.0-4.8) k/uL Monocytes # 0.4 (0-1.0) k/uL Eosinophils # 0.1 (0-0.7) k/uL Basophils # 0.0 (0-0.2) k/uL Sodium 138 (137-145) mmol/L Potassium 3.7 (3.5-5.1) mmol/L Chloride 103 (98-107) mmol/L Carbon Dioxide 24 (22-30) mmol/L Anion Gap 11 mmol/L BUN 13 (7-17) mg/dL Creatinine 0.66 (0.52-1.04) mg/dL Est GFR (CKD-EPI)AfAm >90 (>60 ml/min/1.73 sqM) Est GFR (CKD-EPI)NonAf 80 (>60 ml/min/1.73 sqM) Glucose 54 L (74-99) mg/dL POC Glucose (mg/dL) 50 L (70-110) mg/dL POC Glu Shoe Turner ID Elva Cantu T Calcium 8.6 (8.4-10.2) mg/dL Total Bilirubin 0.7 (0.2-1.3) mg/dL AST 46 H (14-36) U/L ALT 32 (4-34) U/L Alkaline Phosphatase 228 H (38-126) U/L Total Protein 6.8 (6.3-8.2) g/dL Albumin 3.5 (3.5-5.0) g/dL 05/01/23 Range/Units 18:24 WBC (3.8-10.6) k/uL RBC (3.80-5.40) m/uL Hgb (11.4-16.0) gm/dL Hct (34.0-46.0) % MCV (80.0-100.0) fL MCH (25.0-35.0) pg MCHC (31.0-37.0) g/dL RDW (11.5-15.5) % Plt Count (150-450) k/uL MPV Neutrophils % % Lymphocytes % % Monocytes % % Eosinophils % % Basophils % % Neutrophils # (1.3-7.7) k/uL Lymphocytes # (1.0-4.8) k/uL Monocytes # (0-1.0) k/uL Eosinophils # (0-0.7) k/uL Basophils # (0-0.2) k/uL Sodium (137-145) mmol/L Potassium (3.5-5.1) mmol/L Chloride (98-107) mmol/L Carbon Dioxide (22-30) mmol/L Anion Gap mmol/L BUN (7-17) mg/dL Creatinine (0.52-1.04) mg/dL Est GFR (CKD-EPI)AfAm (>60 ml/min/1.73 sqM) Est GFR (CKD-EPI)NonAf (>60 ml/min/1.73 sqM) Glucose (74-99) mg/dL POC Glucose (mg/dL) 203 H (70-110) mg/dL POC Glu Shoe Turner ID October Calcium (8.4-10.2) mg/dL Total Bilirubin (0.2-1.3) mg/dL AST (14-36) U/L ALT (4-34) U/L Alkaline Phosphatase (38-126) U/L Total Protein (6.3-8.2) g/dL Albumin (3.5-5.0) g/dL Disposition Clinical Impression: Hypoglycemia Disposition: HOME SELF-CARE Condition: Fair Instructions (If sedation given, give patient instructions): Hypoglycemia in a Person with Diabetes (DC) Additional Instructions: Please eat regular meals, please monitor blood sugar closely at home. Please follow up with primary care provider. Is patient prescribed a controlled substance at d/c from ED?: No Referrals: None,Stated [REFERRING] - 1-2 days Time of Disposition: 18:55
[2023-05-01 18:00] LABS: ALT 32 U/L (4-34); African American GFR (CKD) >90 (>60 ml/min/1.73 sqM); Albumin 3.5 g/dL (3.5-5.0); Anion Gap 11 mmol/L; Blood Urea Nitrogen 13 mg/dL (7-17); Calcium 8.6 mg/dL (8.4-10.2); Carbon Dioxide 24 mmol/L (22-30); Chloride 103 mmol/L (98-107); Glucose 54 mg/dL (74-99); Non-African American GFR(CKD) 80 (>60 ml/min/1.73 sqM); Sodium 138 mmol/L (137-145); Total Bilirubin 0.7 mg/dL (0.2-1.3); Total Protein 6.8 g/dL (6.3-8.2)
[2023-05-01 18:07] LABS: AST 46 U/L (14-36); Potassium 3.7 mmol/L (3.5-5.1)
[2023-05-01 18:08] LABS: Alkaline Phosphatase 228 U/L (38-126)
[2023-05-01 18:29] LABS: Glucose,Whole Blood 203 mg/dL (70-110)
[2023-05-01 19:39] VITALS: BP 153/63; PULSE 83; TEMP 97.5
== END 2023-05-01 19:30 | disposition home or self-care (01) ==
LOC: EC 16:56
DX: E11.649 Type 2 diabetes mellitus with hypoglycemia without coma (principal); I10 Essential (primary) hypertension; I25.10 Atherosclerotic heart disease of native coronary artery without angina pectoris; J44.9 Chronic obstructive pulmonary disease, unspecified; E78.5 Hyperlipidemia, unspecified; K21.9 Gastro-esophageal reflux disease without esophagitis; E03.9 Hypothyroidism, unspecified; Z86.73 Personal history of transient ischemic attack (TIA), and cerebral infarction without residual deficits; Z88.8 Allergy status to other drugs, medicaments and biological substances; Z88.2 Allergy status to sulfonamides; Z88.1 Allergy status to other antibiotic agents; Z91.013 Allergy to seafood; Z91.041 Radiographic dye allergy status; Z79.890 Hormone replacement therapy; Z79.4 Long term (current) use of insulin; Z79.02 Long term (current) use of antithrombotics/antiplatelets; Z79.899 Other long term (current) drug therapy
CPT/HCPCS: 36415; 80053; 85025; 96374; 99285

== ENCOUNTER 2023-07-22 12:18 | Emergency (ER) | payer MEDICARE, OTHER ==
[2023-07-22 12:31] VITALS: RESP 18
--- NOTE | 2023-07-22 12:48 | ED ---
General Adult HPI - General Chief complaint: Fall Stated complaint: Fall Time Seen by Provider: 07/22/23 12:21 Source: patient, EMS, RN notes reviewed Mode of arrival: EMS Limitations: no limitations - History of Present Illness Initial comments: Patient is a pleasant 88-year-old female presenting to the emergency Department with fall. Patient was standing up and fell down. Patient did strike her right ear. Patient plays of discomfort near that area. Patient did report earlier to nurses that she hurt her arm however patient denies this at this time. Patient denies loss of consciousness. Patient denies syncope. Patient states she does live at home with her daughter. No other concerns. - Related Data Home Medications Medication Instructions Recorded Confirmed Atorvastatin [Lipitor] 40 mg PO HS 12/02/20 05/01/23 Cholecalciferol [Vitamin D3 (25 50 mcg PO DAILY 07/24/21 05/01/23 Mcg = 1000 Iu)] Cranberry Fruit Extract [Cranberry] 500 mg PO DAILY 07/24/21 05/01/23 Insulin Aspart [NovoLOG Flexpen] See Protocol SQ AC-TID PRN 12/16/21 05/01/23 Clopidogrel Bisulfate [Clopidogrel] 75 mg PO DAILY 04/29/22 05/01/23 Omeprazole [PriLOSEC] 20 mg PO DAILY 04/29/22 05/01/23 Lisinopril-Hctz 20-12.5 mg 1 tab PO BID 10/05/22 05/01/23 [Zestoretic 20-12.5] NIFEdipine XL [Procardia XL] 30 mg PO DAILY 10/05/22 05/01/23 Levothyroxine Sodium [Synthroid] 50 mcg PO HS 04/27/23 05/01/23 Nitroglycerin Sl Tabs [Nitrostat] 0.4 mg SUBLINGUAL Q5M PRN 04/27/23 05/01/23 Propylene Glycol [Systane Complete] 1 drop BOTH EYES QID PRN 04/27/23 05/01/23 Previous Rx's Medication Instructions Recorded Metoprolol Tartrate [Lopressor] 50 mg PO BID #0 10/11/22 Acetaminophen Tab [Tylenol] 500 mg PO Q6HR PRN tab 04/29/23 Allergies Allergy/AdvReac Type Severity Reaction Status Date / Time aspirin Allergy Rash/Hives Verified 07/22/23 12:27 fish derived Allergy Rash/Hives Verified 07/22/23 12:27 Iodinated Contrast Media Allergy Rash/Hives Verified 07/22/23 12:27 [Iodinated Contrast Media - IV Dye] Iodine and Iodide Containing Allergy Rash/Hives Verified 07/22/23 12:27 Produc shellfish derived [Shellfish] Allergy Rash/Hives Verified 07/22/23 12:27 sulfamethoxazole Allergy Itching Verified 07/22/23 12:27 [From Bactrim] trimethoprim [From Bactrim] Allergy Itching Verified 07/22/23 12:27 Review of Systems ROS Statement: Those systems with pertinent positive or pertinent negative responses have been documented in the HPI. ROS Other: All systems not noted in ROS Statement are negative. Constitutional: Denies: fever Eyes: Denies: eye pain ENT: Denies: ear pain Respiratory: Denies: cough, dyspnea Cardiovascular: Denies: chest pain Endocrine: Denies: fatigue Gastrointestinal: Denies: abdominal pain Neurological: Reports: as per HPI, headache (Right ear region). 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, dysphagia,esophageal strictures with dilation, hiatal hernia, L eye diabetic retinopathy/R eye blindness, bilateral [place], UTIS/urinary leakage, past bilateral feet sores/osteomylitis, generalized pain, bilateral carpal tunnel syndrome, vertigo, hypothyroid, anemia History of Any Multi-Drug Resistant Organisms: MRSA Date of last positivie culture/infection: 10/05/22 MDRO Source:: Urine Past Surgical History: Bladder Surgery, Cholecystectomy, Coronary Bypass/CABG, Heart Catheterization, Hysterectomy Additional Past Surgical History / Comment(s): 2007 CABG 4 vessel, EGDs with dil ations, colonoscopies, cataract removal, D&C, bladder suspension, PICC, loop recorder, toe amputation may 2021, left AKA Past Anesthesia/Blood Transfusion Reactions: Motion Sickness, Postoperative Nausea & Vomiting (PONV) Past Psychological History: No Psychological Hx Reported Smoking Status: Never smoker Past Alcohol Use History: None Reported Past Drug Use History: None Reported - Past Family History Father Family Medical History: Liver Disease Additional Family Medical History / Comment(s): Father of cirrhosis. He was a drinker. Mother History Unknown: Yes Family Medical History: Unable to Obtain Additional Family Medical History / Comment(s): Pt states she does not know her mother's medical history, but knows she at the age of 62 yrs.. Son(s) Family Medical History: Unable to Obtain, Renal Disease Daughter(s) Family Medical History: Cancer General Exam Limitations: no limitations General appearance: alert, in no apparent distress Head exam: Present: atraumatic, normocephalic Eye exam: Present: normal appearance, PERRL, EOMI ENT exam: Present: TM's normal bilaterally Neck exam: Present: normal inspection. Absent: tenderness Respiratory exam: Present: normal lung sounds bilaterally Cardiovascular Exam: Present: regular rate, normal rhythm GI/Abdominal exam: Present: soft. Absent: tenderness Extremities exam: Present: full ROM, other (Left AKA). Absent: tenderness Back exam: Present: normal inspection Neurological exam: Present: alert, oriented X3, CN II-XII intact. Absent: motor sensory deficit Psychiatric exam: Present: normal affect, normal mood Skin exam: Present: normal color Course Vital Signs 07/22/23 12:23 Temperature 97 F L Pulse Rate 74 Respiratory 18 Rate Blood Pressure 194/90 O2 Sat by Pulse 99 Oximetry Medical Decision Making - Medical Decision Making Was pt. sent in by a medical professional or institution (, PA, SENIOR MECHANICAL TECHNICIAN, urgent care, hospital, or custodial...) When possible be specific @ -No Did you speak to anyone other than the patient for history (EMS, parent, family, police, friend...)? What history was obtained from this source @ -Daughter is present and helps confirm history of fall in addition confirms comfortable with being discharged. Did you review nursing and triage notes (agree or disagree)? Why? @ -I reviewed and agree with nursing and triage notes, patient does not have complaints of shoulder discomfort at this time however Were old charts reviewed (outside hosp., previous admission, EMS record, old EKG, old radiological studies, urgent care reports/EKG's, custodial records)? Report findings @ -No old charts were reviewed Differential Diagnosis (chest pain, altered mental status, abdominal pain women, abdominal pain men, vaginal bleeding, weakness, fever, dyspnea, syncope, headache, dizziness, GI bleed, back pain, seizure, CVA, palpatations, mental health, musculoskeletal)? @ -Differential Musculoskeletal Muscular strain, contusion, ligament sprain, fracture, arthritis, septic arthritis, bursitis, cellulitis, muscle spasm, nerve compression, DVT, arterial occlusion, herpes zoster, electrolyte abnormality, tumor.... This is not meant to be in all inclusive list EKG interpreted by me (3pts min.). @ -As above X-rays interpreted by me (1pt min.). @ -None done CT interpreted by me (1pt min.). @ -Computed tomography scan of brain cervical spine without acute abnormality U/S interpreted by me (1pt. min.). @ -None done What testing was considered but not performed or refused? (CT, X-rays, U/S, labs)? Why? @ -None What meds were considered but not given or refused? Why? @ -None Did you discuss the management of the patient with other professionals (professionals i.e. , PA, SENIOR MECHANICAL TECHNICIAN, lab, RT, psych nurse, hospice social worker, crude oil driver, teacher, medical scientific officer, director case management)? Give summary @ -No Was smoking cessation discussed for >3mins.? @ -No Was critical care preformed (if so, how long)? @ -No Were there social determinants of health that impacted care today? How? (Homelessness, low income, unemployed, alcoholism, drug addiction, transportation, low edu. Level, literacy, decrease access to med. care, long-term, rehab)? @ -No Was there de-escalation of care discussed even if they declined (Discuss DNR or withdrawal of care, Hospice)? DNR status @ -No What co-morbidities impacted this encounter? (DM, HTN, Smoking, COPD, CAD, C ancer, CVA, ARF, Chemo, Hep., AIDS, mental health diagnosis, sleep apnea, morbid obesity)? @ -None Was patient admitted / discharged? Hospital course, mention meds given and route, prescriptions, significant lab abnormalities, going to OR and other pertinent info. @ -Patient reevaluated and resting comfortably in bed. Patient and family up dated on results and need for follow-up. Both are comfortable with discharge home. Undiagnosed new problem with uncertain prognosis? @ -No Drug Therapy requiring intensive monitoring for toxicity (Heparin, Nitro, Insulin, Cardizem)? @ -No Were any procedures done? @ -No Diagnosis/symptom? @ -Head contusion Acute, or Chronic, or Acute on Chronic? @ -Acute Uncomplicated (without systemic symptoms) or Complicated (systemic symptoms)? @ -default Side effects of treatment? @ -No Exacerbation, Progression, or Severe Exacerbation? @ -No Poses a threat to life or bodily function? How? (Chest pain, [place], [place], pneumonia, PE, COPD, DKA, ARF, appy, cholecystitis, CVA, Diverticulitis, Homicidal, Suicidal, threat to staff... and all critical care pts) @ -No Disposition Clinical Impression: Head contusion Disposition: HOME SELF-CARE Condition: Stable Instructions (If sedation given, give patient instructions): Fall Prevention fo r Older Adults (ED), Head Injury (ED) Additional Instructions: Please do follow-up with primary care physician in the next one or 2 days for recheck. [id number] Tylenol as needed. Ice to affected area. Return for increased pain, confusion, weakness, worsening or changing symptoms or other concerns. Is patient prescribed a controlled substance at d/c from ED?: No Referrals: Esvin Ramirez DO [Primary Care Provider] - 1-2 days Time of Disposition: 14:40
--- NOTE | 2023-07-22 14:26 | CT ---
EXAMINATION TYPE: CT brain cspine wo con CT DLP: 1520.2 mGycm, Automated exposure control for dose reduction was used. DATE OF EXAM: 07/22/2023 2:04 PM COMPARISON: None. CLINICAL INDICATION:Female, 88 years old with history of trauma; FALL OUT OF WHEELCHAIR TECHNIQUE: Brain: Multiple axial CT images of the brain were obtained without IV contrast. Cspine: Axial CT images from the skull base to the inferior aspect of T2 we obtained without intraven ous contrast. Coronal and sagittal reformatted images were also reviewed. FINDINGS: Brain: Extra-axial spaces: No abnormal extra-axial fluid collections. Partially empty sella noted. Ventricular system: Appear dilated in proportion to the degree of cerebral atrophy. Cerebral parenchyma: No increased attenuation to suggest acute intraparenchymal hemorrhage. The gra y-white matter interface appears maintained. Moderate generalized brain atrophy. Scattered hypoatte nuating areas are seen within the cerebral white matter, nonspecific but most often seen with chronic microvascular ischemic changes; moderate in degree. Focal low attenuation involving cortex with bhavin dence of some volume loss suggesting remote infarct in the left occipital lobe. Moderate calcificatio n of the bilateral basal ganglia. Cerebellum: No acute abnormality. Mass effect: No evidence of mass effect or midline shift. Intracranial vasculature: Atherosclerotic calcifications of the larger arteries near the skull base. Soft tissues: No acute abnormality. 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 Likely scleral banding on the left. No acute orbital findings. Calvarium/osseous structures: No evidence of calvarial fracture. Paranasal sinuses and mastoid air cells: Clear MRI is more sensitive for detecting acute processes such as infarct, and may be considered if clinica lly warranted. Cervical spine: Fracture: None seen. Osseous structures, spinal canal/neural foramina: Generalized osteopenia. Cranial cervical junction i s intact. Mild to moderate degenerative change of the anterior C1-C2 articulation. Mild to moderate m ultilevel degenerative disk disease and facet arthrosis throughout the cervical spine. Mild canal and foraminal stenoses, appears greatest at C4-C5 and C5-C6. No critical stenosis is seen. Vertebral alignment: No traumatic malalignment. Preserved normal cervical lordosis. No significant li sthesis. Neck soft tissues: No acute finding.. Calcifications noted involving the cervical carotid arteries mo stly in the bifurcation regions, and along aortic arch. Other: Partially seen heavy coronary arterial calcifications and/or stents. Partially seen postoperat shaq changes likely from CABG, including sternotomy wires and mediastinal clips. Scarring noted in the bilateral lung apices without evidence of acute infiltrate or pneumothorax. IMPRESSION: CT head: 1. No acute intracranial CT abnormality. 2. Moderate atrophy and chronic microvascular ischemic changes. Remote infarct left occipital lobe. CT cervical spine: 1. No evidence of cervical spine fracture or traumatic malalignment. 2. Mild/moderate cervical spondylosis.
[2023-07-22] MEDS: ACETAMINOPHEN TAB 500 MG TAB PO STA (14:58)
[2023-07-22 15:24] VITALS: BP 198/94; PULSE 71; TEMP 97.6
== END 2023-07-22 15:08 | disposition home or self-care (01) ==
LOC: EC 12:18
DX: S00.93XA Contusion of unspecified part of head, initial encounter (principal); I10 Essential (primary) hypertension; I25.10 Atherosclerotic heart disease of native coronary artery without angina pectoris; E78.5 Hyperlipidemia, unspecified; E03.9 Hypothyroidism, unspecified; E11.319 Type 2 diabetes mellitus with unspecified diabetic retinopathy without macular edema; J44.9 Chronic obstructive pulmonary disease, unspecified; K21.9 Gastro-esophageal reflux disease without esophagitis; Z79.02 Long term (current) use of antithrombotics/antiplatelets; Z79.4 Long term (current) use of insulin; Z79.890 Hormone replacement therapy; Z79.899 Other long term (current) drug therapy; Z88.1 Allergy status to other antibiotic agents; Z88.2 Allergy status to sulfonamides; Z88.8 Allergy status to other drugs, medicaments and biological substances; Z88.6 Allergy status to analgesic agent; Z91.041 Radiographic dye allergy status; Z90.49 Acquired absence of other specified parts of digestive tract; Z95.1 Presence of aortocoronary bypass graft; Z91.013 Allergy to seafood; W01.0XXA Fall on same level from slipping, tripping and stumbling without subsequent striking against object, initial encounter
CPT/HCPCS: 51798; 70450; 72125; 99284

== ENCOUNTER 2023-09-12 12:37 | Inpatient (IN) | payer MEDICARE, OTHER ==
--- NOTE | 2023-09-12 12:51 | ED ---
General Adult HPI - General Chief complaint: Nausea/Vomiting/Diarrhea Stated complaint: vomit Time Seen by Provider: 09/12/23 12:39 Source: patient, EMS, RN notes reviewed Mode of arrival: EMS Limitations: no limitations - History of Present Illness Initial comments: Patient is a pleasant 88-year-old female presenting to the emergency department with vomiting. Patient is a poor historian. Patient admits to feeling nauseated and has vomited at least a couple times. Onset of symptoms was today. Patient does complain of headache, chest discomfort, nausea and abdominal discomfort. No fever. Patient does feel short of breath - Related Data Home Medications Medication Instructions Recorded Confirmed Atorvastatin [Lipitor] 40 mg PO HS 12/02/20 05/01/23 Cholecalciferol [Vitamin D3 (25 50 mcg PO DAILY 07/24/21 05/01/23 Mcg = 1000 Iu)] Cranberry Fruit Extract [Cranberry] 500 mg PO DAILY 07/24/21 05/01/23 Insulin Aspart [NovoLOG Flexpen] See Protocol SQ AC-TID PRN 12/16/21 05/01/23 Clopidogrel Bisulfate [Clopidogrel] 75 mg PO DAILY 04/29/22 05/01/23 Omeprazole [PriLOSEC] 20 mg PO DAILY 04/29/22 05/01/23 Lisinopril-Hctz 20-12.5 mg 1 tab PO BID 10/05/22 05/01/23 [Zestoretic 20-12.5] NIFEdipine XL [Procardia XL] 30 mg PO DAILY 10/05/22 05/01/23 Levothyroxine Sodium [Synthroid] 50 mcg PO HS 04/27/23 05/01/23 Nitroglycerin Sl Tabs [Nitrostat] 0.4 mg SUBLINGUAL Q5M PRN 04/27/23 05/01/23 Propylene Glycol [Systane Complete] 1 drop BOTH EYES QID PRN 04/27/23 05/01/23 Previous Rx's Medication Instructions Recorded Metoprolol Tartrate [Lopressor] 50 mg PO BID #0 10/11/22 Acetaminophen Tab [Tylenol] 500 mg PO Q6HR PRN tab 04/29/23 Allergies Allergy/AdvReac Type Severity Reaction Status Date / Time aspirin Allergy Rash/Hives Verified 09/12/23 12:46 fish derived Allergy Rash/Hives Verified 09/12/23 12:46 Iodinated Contrast Media Allergy Rash/Hives Verified 09/12/23 12:46 [Iodinated Contrast Media - IV Dye] Iodine and Iodide Containing Allergy Rash/Hives Verified 09/12/23 12:46 Produc shellfish derived [Shellfish] Allergy Rash/Hives Verified 09/12/23 12:46 sulfamethoxazole Allergy Itching Verified 09/12/23 12:46 [From Bactrim] trimethoprim [From Bactrim] Allergy Itching Verified 09/12/23 12:46 Review of Systems ROS Statement: Those systems with pertinent positive or pertinent negative responses have been documented in the HPI. ROS Other: All systems not noted in ROS Statement are negative. Eyes: Denies: eye pain Respiratory: Reports: cough, dyspnea Cardiovascular: Reports: chest pain Endocrine: Reports: fatigue Gastrointestinal: Reports: abdominal pain, nausea, vomiting Skin: Denies: rash Neurological: Reports: headache. 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, dysphagia,esophageal strictures with dilation, hiatal hernia, L eye diabetic retinopathy/R eye blindness, bilateral [place], UTIS/urinary leakage, past bilateral feet sores/osteomylitis, generalized pain, bilateral carpal tunnel syndrome, vertigo, hypothyroid, anemia History of Any Multi-Drug Resistant Organisms: MRSA Date of last positivie culture/infection: 10/05/22 MDRO Source:: Urine Past Surgical History: Bladder Surgery, Cholecystectomy, Coronary Bypass/CABG, Heart Catheterization, Hysterectomy Additional Past Surgical History / Comment(s): 2007 CABG 4 vessel, EGDs with dilations, colonoscopies, cataract removal, D&C, bladder suspension, PICC, loop recorder, toe amputation may 2021, left AKA Past Anesthesia/Blood Transfusion Reactions: Motion Sickness, Postoperative Nausea & Vomiting (PONV) Past Psychological History: No Psychological Hx Reported Smoking Status: Never smoker Past Alcohol Use History: None Reported Past Drug Use History: None Reported - Past Family History Father Family Medical History: Liver Disease Additional Family Medical History / Comment(s): Father of cirrhosis. He was a drinker. Mother History Unknown: Yes Family Medical History: Unable to Obtain Additional Family Medical History / Comment(s): Pt states she does not know her mother's medical history, but knows she at the age of 62 yrs.. Son(s) Family Medical History: Unable to Obtain, Renal Disease Daughter(s) Family Medical History: Cancer General Exam Limitations: no limitations General appearance: alert Head exam: Present: normocephalic Eye exam: Present: other ( right eye completely opacified) ENT exam: Present: normal oropharynx Neck exam: Present: normal inspection Respiratory exam: Present: normal lung sounds bilaterally Cardiovascular Exam: Present: regular rate, normal rhythm GI/Abdominal exam: Present: soft, tenderness (Mild diffuse tenderness). Absent: distended Extremities exam: Present: other (Left AKA) Neurological exam: Present: alert Expanded Neurological exam: Present: protecting the airway Patient oriented to: Present: person, place, time Speech: Present: fluid speech Motor strength exam: RUE: 5, LUE: 5, RLE: 5 Eye Response: (4) open spontaneously Motor Response: (6) obeys commands Verbal Response: (5) oriented Psychiatric exam: Present: normal affect, normal mood Skin exam: Present: normal color Course Vital Signs 09/12/23 09/12/23 09/12/23 12:40 12:56 13:00 Temperature 97.5 F L Pulse Rate 61 64 60 Respiratory 18 17 16 Rate Blood Pressure 242/105 O2 Sat by Pulse 99 97 98 Oximetry 09/12/23 09/12/23 09/12/23 13:06 13:15 13:30 Temperature Pulse Rate 53 L 55 L 60 Respiratory 20 18 16 Rate Blood Pressure 231/160 231/160 O2 Sat by Pulse 98 98 Oximetry 09/12/23 09/12/23 09/12/23 13:45 14:00 14:15 Temperature Pulse Rate 61 62 64 Respiratory 16 18 16 Rate Blood Pressure 239/92 233/108 233/108 O2 Sat by Pulse 98 Oximetry 09/12/23 09/12/23 09/12/23 14:28 14:30 14:46 Temperature Pulse Rate 64 63 70 Respiratory 18 22 18 Rate Blood Pressure 230/86 236/88 233/86 O2 Sat by Pulse 96 99 96 Oximetry 09/12/23 15:07 Temperature Pulse Rate 71 Respiratory 18 Rate Blood Pressure 231/84 O2 Sat by Pulse 97 Oximetry EKG Findings - EKG Results: EKG: interpreted by ADENIKED (Left axis. LVH.), sinus rhythm, normal ST/T EKG shows: bradycardia Medical Decision Making - Medical Decision Making Was pt. sent in by a medical professional or institution (, PA, OUTREACH NURSE, urgent care, hospital, or skilled nursing...) When possible be specific @ -No Did you speak to anyone other than the patient for history (EMS, parent, family, police, friend...)? What history was obtained from this source @ -No Did you review nursing and triage notes (agree or disagree)? Why? @ -I reviewed and agree with nursing and triage notes Were old charts reviewed (outside hosp., previous admission, EMS record, old EKG, old radiological studies, urgent care reports/EKG's, skilled nursing records)? Report findings @ -Previous chest x-ray reviewed Differential Diagnosis (chest pain, altered mental status, abdominal pain women, abdominal pain men, vaginal bleeding, weakness, fever, dyspnea, syncope, headache, dizziness, GI bleed, back pain, seizure, CVA, palpatations, mental health, musculoskeletal)? @ -Differential Abdominal Pain Women: Appendicitis, Cholecystitis, diverticulosis, ischemic bowel, pancreatitis, hepatitis, UTI, gastroenteritis, AAA, incarcerated hernia, bowel obstruction, constipation, inflammatory bowel, hepatitis, peptic ulcer disease, splenic infarction, perforated viscus, vulvitis, ovarian torsion, PID, kidney stone, placenta abruption, this is not meant to be an all-inclusive list EKG interpreted by me (3pts min.). @ -As above X-rays interpreted by me (1pt min.). @ -Chest x-ray shows no acute process CT interpreted by me (1pt min.). @ -CT brain and CT abdomen/pelvis without acute abnormality U/S interpreted by me (1pt. min.). @ -None done What testing was considered but not performed or refused? (CT, X-rays, U/S, labs)? Why? @ -None What meds were considered but not given or refused? Why? @ -Considered further antihypertensives however blood pressure is now improving to 197/99 Did you discuss the management of the patient with other professionals (professionals i.e. , PA, OUTREACH NURSE, lab, RT, psych nurse, pediatric social worker, laydown machine operator, teacher, ict help desk officer, rn case manager hospice)? Give summary @ -Case was discussed with Dr. Nagel, who will admit covering Dr. Ramirez Was smoking cessation discussed for >3mins.? @ -No Was critical care preformed (if so, how long)? @ -31 minutes critical care time provided Were there social determinants of health that impacted care today? How? (Homelessness, low income, unemployed, alcoholism, drug addiction, transport ation, low edu. Level, literacy, decrease access to med. care, usp, rehab)? @ -No Was there de-escalation of care discussed even if they declined (Discuss DNR or withdrawal of care, Hospice)? DNR status @ -No What co-morbidities impacted this encounter? (DM, HTN, Smoking, COPD, CAD, Cancer, CVA, ARF, Chemo, Hep., AIDS, mental health diagnosis, sleep apnea, morbid obesity)? @ -History of hypertension Was patient admitted / discharged? Hospital course, mention meds given and route, prescriptions, significant lab abnormalities, going to OR and other pertinent info. @ -Patient reevaluated. Patient given 2 doses of IV antihypertensives. Blood pressure is improved. Patient symptoms have improved. Patient will be admitted for hypertensive urgency. Admission orders written Undiagnosed new problem with uncertain prognosis? @ -No Drug Therapy requiring intensive monitoring for toxicity (Heparin, Nitro, Insulin, Cardizem)? @ -No Were any procedures done? @ -No Diagnosis/symptom? @ -Hypertensive urgency Acute, or Chronic, or Acute on Chronic? @ -Acute Uncomplicated (without systemic symptoms) or Complicated (systemic symptoms)? @ -Default Side effects of treatment? @ -No Exacerbation, Progression, or Severe Exacerbation? @ -No Poses a threat to life or bodily function? How? (Chest pain, [place], [place], pneumonia, PE, COPD, DKA, ARF, appy, cholecystitis, CVA, Diverticulitis, Homicidal, Suicidal, threat to staff... and all critical care pts) @ -Threat for ischemia and strokes by uncontrolled hypertension - Lab Data Result diagrams: 09/12/23 13:08 09/12/23 13:08 Lab Results 09/12/23 09/12/23 09/12/23 Range/Units 13:08 13:08 13:08 WBC 8.3 (3.8-10.6) k/uL RBC 4.21 (3.80-5.40) m/uL Hgb 12.2 (11.4-16.0) gm/dL Hct 35.9 (34.0-46.0) % MCV 85.3 (80.0-100.0) fL MCH 29.1 (25.0-35.0) pg MCHC 34.1 (31.0-37.0) g/dL RDW 14.3 (11.5-15.5) % Plt Count 229 (150-450) k/uL MPV 8.3 Neutrophils % 80 % Lymphocytes % 14 % Monocytes % 4 % Eosinophils % 1 % Basophils % 0 % Neutrophils # 6.6 (1.3-7.7) k/uL Lymphocytes # 1.2 (1.0-4.8) k/uL Monocytes # 0.4 (0-1.0) k/uL Eosinophils # 0.1 (0-0.7) k/uL Basophils # 0.0 (0-0.2) k/uL PT 11.2 (10.0-12.5) sec INR 1.0 (<1.2) APTT 24.5 (22.0-30.0) sec Sodium 141 (137-145) mmol/L Potassium 3.7 (3.5-5.1) mmol/L Chloride 108 H (98-107) mmol/L Carbon Dioxide 25 (22-30) mmol/L Anion Gap 8 mmol/L BUN 19 H (7-17) mg/dL Creatinine 0.69 (0.52-1.04) mg/dL Est GFR (CKD-EPI)AfAm >90 (>60 ml/min/1.73 sqM) Est GFR (CKD-EPI)NonAf 79 (>60 ml/min/1.73 sqM) Glucose 142 H (74-99) mg/dL Calcium 9.0 (8.4-10.2) mg/dL Total Bilirubin 0.6 (0.2-1.3) mg/dL AST 27 (14-36) U/L ALT 20 (4-34) U/L Alkaline Phosphatase 81 (38-126) U/L Troponin I (0.000-0.034) ng/mL Total Protein 7.0 (6.3-8.2) g/dL Albumin 3.9 (3.5-5.0) g/dL Amylase 40 (30-110) U/L Lipase 42 (23-300) U/L Influenza Type A (PCR) (Not Detectd) Influenza Type B (PCR) (Not Detectd) RSV (PCR) (Not Detectd) SARS-CoV-2 (PCR) (Not Detectd) 09/12/23 09/12/23 Range/Units 13:08 13:08 WBC (3.8-10.6) k/uL RBC (3.80-5.40) m/uL Hgb (11.4-16.0) gm/dL Hct (34.0-46.0) % MCV (80.0-100.0) fL MCH (25.0-35.0) pg MCHC (31.0-37.0) g/dL RDW (11.5-15.5) % Plt Count (150-450) k/uL MPV Neutrophils % % Lymphocytes % % Monocytes % % Eosinophils % % Basophils % % Neutrophils # (1.3-7.7) k/uL Lymphocytes # (1.0-4.8) k/uL Monocytes # (0-1.0) k/uL Eosinophils # (0-0.7) k/uL Basophils # (0-0.2) k/uL PT (10.0-12.5) sec INR (<1.2) APTT (22.0-30.0) sec Sodium (137-145) mmol/L Potassium (3.5-5.1) mmol/L Chloride (98-107) mmol/L Carbon Dioxide (22-30) mmol/L Anion Gap mmol/L BUN (7-17) mg/dL Creatinine (0.52-1.04) mg/dL Est GFR (CKD-EPI)AfAm (>60 ml/min/1.73 sqM) Est GFR (CKD-EPI)NonAf (>60 ml/min/1.73 sqM) Glucose (74-99) mg/dL Calcium (8.4-10.2) mg/dL Total Bilirubin (0.2-1.3) mg/dL AST (14-36) U/L ALT (4-34) U/L Alkaline Phosphatase (38-126) U/L Troponin I <0.012 (0.000-0.034) ng/mL Total Protein (6.3-8.2) g/dL Albumin (3.5-5.0) g/dL Amylase (30-110) U/L Lipase (23-300) U/L Influenza Type A (PCR) Not Detected (Not Detectd) Influenza Type B (PCR) Not Detected (Not Detectd) RSV (PCR) Not Detected (Not Detectd) SARS-CoV-2 (PCR) Not Detected (Not Detectd) Critical Care Time Critical Care Time: Yes Total Critical Care Time: 31 Disposition Clinical Impression: Hypertensive urgency Disposition: ADMITTED IP TO THIS [facility] Condition: Serious Is patient prescribed a controlled substance at d/c from ED?: No Referrals: Esvin Ramirez DO [Primary Care Provider] - 1-2 days Time of Disposition: 15:36
[2023-09-12] MEDS: FAMOTIDINE 20 MG/2 ML VIAL IV STA (13:28)
[2023-09-12] MEDS: SODIUM CHLORIDE 0.9% 1,000 ML IV STA (13:28)
[2023-09-12] MEDS: ONDANSETRON 4 MG/2 ML VIAL IVP STA (13:28)
[2023-09-12 13:35] LABS: Basophils % (A) 0 %; Eosinophils # (A) 0.1 k/uL (0-0.7); Eosinophils % (A) 1 %; HCT 35.9 % (34.0-46.0); HGB 12.2 gm/dL (11.4-16.0); Lymphocytes # (A) 1.2 k/uL (1.0-4.8); Lymphocytes % (A) 14 %; MCH 29.1 pg (25.0-35.0); MCHC 34.1 g/dL (31.0-37.0); MCV 85.3 fL (80.0-100.0); Mean Platelet Volume 8.3; Monocytes # (A) 0.4 k/uL (0-1.0); Monocytes % (A) 4 %; Neutrophils # (A) 6.6 k/uL (1.3-7.7); Neutrophils % (A) 80 %; Platelet Count 229 k/uL (150-450); RBC 4.21 m/uL (3.80-5.40); RDW 14.3 % (11.5-15.5); WBC 8.3 k/uL (3.8-10.6)
[2023-09-12 13:48] LABS: ALT 20 U/L (4-34); AST 27 U/L (14-36); African American GFR (CKD) >90 (>60 ml/min/1.73 sqM); Albumin 3.9 g/dL (3.5-5.0); Alkaline Phosphatase 81 U/L (38-126); Amylase 40 U/L (30-110); Anion Gap 8 mmol/L; Blood Urea Nitrogen 19 mg/dL (7-17); Carbon Dioxide 25 mmol/L (22-30); Chloride 108 mmol/L (98-107); Glucose 142 mg/dL (74-99); Lipase 42 U/L (23-300); Non-African American GFR(CKD) 79 (>60 ml/min/1.73 sqM); Potassium 3.7 mmol/L (3.5-5.1); Sodium 141 mmol/L (137-145); Total Bilirubin 0.6 mg/dL (0.2-1.3)
[2023-09-12 13:53] LABS: Partial Thromboplastin Time 24.5 sec (22.0-30.0); Prothrombin Time 11.2 sec (10.0-12.5)
[2023-09-12] MEDS: ENALAPRILAT 1.25 MG/ML 1 ML VIAL IVP STA ×2 (14:30→15:12)
--- NOTE | 2023-09-12 14:30 | CT ---
EXAMINATION: CT ABDOMEN AND PELVIS WITHOUT IV CONTRAST DATE OF EXAMINATION: 09/11/2022. COMPARISON: None available. INDICATION: Abdominal pain. PROCEDURE: Axial CT of the abdomen and pelvis was performed with sagittal and coronal reformatted i mages without contrast enhancement. The exam is limited because some types of pathology may not be ad equately demonstrated due to lack of contrast enhancement. CT dose lowering techniques were used, to include: automated exposure control, adjustment for patient size, and/or use of iterative reconstruct ion. FINDINGS: LOWER CHEST : The visualized lung bases are clear. There are no pleural or pericardial effusions. T here is heavy calcification of the mitral annulus and partially visualized coronary calcifications. M idline sternotomy wires are also partially included. ABDOMEN: Liver and Biliary system: Normal. Adrenal glands: Normal. Kidneys and ureters: There are no renal stones or hydronephrosis. No ureteral stones are present.. Spleen: Normal. Pancreas: Normal. Gallbladder: Normal. Lymph nodes, Peritoneum and mesentery: There is no mesenteric or retroperitoneal lymphadenopathy. Gastrointestinal tract: There are no dilated loops of bowel or free intraperitoneal air. . The appe ndix is not clearly seen. There is mild descending colonic diverticulosis without evidence of diverti culitis. Aorta/IVC: There is significant vascular calcification throughout the abdominal aorta without evide nce of aneurysmal dilation or dissection.. IVC normal. Abdominal wall: Normal. PELVIS: Fluid: There is no free fluid in the pelvis. Lymph Nodes: There is no pelvic or inguinal lymphadenopathy.. Urinary bladder: Normal. BONES: Scattered degenerative disc and facet changes are seen throughout the spine. There are no acu te osseous abnormalities.. ADDITIONAL SIGNIFICANT FINDINGS: Prior hysterectomy.. IMPRESSION: 1. No renal stones or hydronephrosis.. 2. No bowel obstruction or acute inflammatory process is seen within the abdomen or pelvis.
--- NOTE | 2023-09-12 14:32 | CT ---
EXAMINATION TYPE: CT brain wo con DATE OF EXAM: 09/12/2023 COMPARISON: 07/22/2023. HISTORY: Headache and vomiting. CT DLP: 1138.4 mGycm Automated exposure control for dose reduction was used. FINDINGS: There is no acute intracranial hemorrhage, mass, mass effect, midline shift, extra axial fluid collec tions or hydrocephalus. There is mild hypoattenuation the periventricular white matter which likely r elates to chronic ischemic small vessel change. There is no acute major vessel infarct. Bilateral lateral basal ganglia calcification is seen and unchanged. The visualized paranasal sinuses and mastoid air cells are clear. The right globe is shrunken and unc hanged. IMPRESSION: CHRONIC CHANGES ABOVE WITH NO ACUTE INTRACRANIAL PROCESS IDENTIFIED AT THIS TIME.
--- NOTE | 2023-09-12 15:16 | XR ---
EXAMINATION TYPE: XR chest 2V DATE OF EXAM: 09/12/2023 COMPARISON: 04/27/2023 HISTORY: Shortness of breath TECHNIQUE: Frontal and lateral views of the chest are obtained. FINDINGS: Scattered senescent parenchymal changes noted. Hyperinflation compatible with COPD. No evidence for infiltrate. No evidence for atelectasis. Heart size is stable. Mediastinal structures are stable and grossly unremarkable. No evidence for hilar prominence. Degenerative changes dorsal spine. IMPRESSION: 1. No evidence for acute pulmonary disease.
[2023-09-12] MEDS ORDERED: NALOXONE 0.4 MG/ML 1 ML VIAL IV PRN (15:36)
[2023-09-12] MEDS ORDERED: ONDANSETRON 4 MG/2 ML VIAL IVP PRN (15:36)
[2023-09-12] MEDS: SODIUM CHLORIDE 0.9% 1,000 ML IV SCH (16:05)
[2023-09-12] MEDS ORDERED: NITROGLYCERIN SL TABS 0.4 MG TAB SUBLINGUAL PRN (20:16)
[2023-09-12] MEDS ORDERED: ARTIFICIAL TEARS-HYPROMELLOSE DROPS 15 ML BTL BOTH EYES PRN (20:16)
[2023-09-12] MEDS ORDERED: DEXTROSE 50% SYRINGE 50 ML IVP PRN ×2 (20:20)
--- NOTE | 2023-09-12 20:23 | P.HPIM ---
History of Present Illness H&P Date: 09/12/23 Chief Complaint: Vomiting pleasant 88-year-old patient who follows with Dr. Ramirez. 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 . Left AKA. Patient presents with nausea vomiting. Does complain of some abdominal pain. No diarrhea. No fever no chills. Patient is somewhat of a slow historian. Did not throw up in the ER. Still complaining of some abdominal pain. 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 Left above-knee amputation. Social history: Does not smoke or drink alcohol. Daughter lives with her.. assist with ADLs. Physical examination: VITAL SIGNS: Afebrile, 75, 18, 203 x 100, 97% room air GENERAL: BMI 34.3, reclining in bed awake slightly anxious HEENT: Hard of hearing EYES: Blind in the right eye. NECK: JVD not raised; masses not palpable. HEART: First and second heart sounds are normal; no edema. LUNGS: Respiratory rate normal; some right basal crackles. ABDOMEN: Soft, nontender, liver spleen not palpable, no masses palpable. PSYCH: Able to answer questions but a bit forgetful. MUSCULOSKELETAL:No Clubbing/cyanosis;muscles-grossly intact. Left above-knee amputation. Limited range of motion right shoulder Dressing on the right foot. Chronic ischemic changes of the toes NEUROLOGICAL: Cranial nerves grossly intact; Chronic left-sided weakness. Blind in the right eye. INVESTIGATIONS, reviewed in the clinical context September 11: White count 8.3 hemoglobin 12.2 platelets 229 potassium 3.7 BUN 19 creatinine 0.69 Influenza type A, type B, RSV, COVID-19: PCR: Negative EKG tracing personally reviewed by me-normal sinus rhythm. Intraventricular block. Nonspecific T wave changes. CT abdomen pelvis: Unremarkable. Chest x-ray film personally reviewed by me-borderline cardiomegaly Assessment and plan: -Acute nausea vomiting at home with some abdominal pain. Suspect acute gastritis. PPI. Liquid diet -Essential hypertension, uncontrolled likely patient missed her medications because of nausea vomiting Lopressor 50 mg twice a day. Zestoretic 20/12.5 once daily Procardia XL 30 mg daily. -chronic right shoulder dysfunction -Coronary artery disease, prior history of bypass 2007 Lopressor, Plavix -Diabetes mellitus type 2 , uncontrolled with hypoglycemia, because of decreased oral intake Levemir -Blind in the right eye, chronic -Left above-knee amputation -Hyperlipidemia Lipitor 40 mg daily at bedtime -Hypothyroidism Synthroid 50 g a day -Primary osteoarthritis Continue pain medications -Diabetic peripheral neuropathy -Chronic urinary incontinence Depend -DO NOT RESUSCITATE 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, dysphagia,esophageal strictures with dilation, hiatal hernia, L eye diabetic retinopathy/R eye blindness, bilateral [place], UTIS/urinary leakage, past bilateral feet sores/osteomylitis, generalized pain, bilateral carpal tunnel syndrome, vertigo, hypothyroid, anemia History of Any Multi-Drug Resistant Organisms: MRSA Date of last positivie culture/infection: 10/05/22 MDRO Source:: Urine Past Surgical History: Bladder Surgery, Cholecystectomy, Coronary Bypass/CABG, Heart Catheterization, Hysterectomy Additional Past Surgical History / Comment(s): 2007 CABG 4 vessel, EGDs with dilations, colonoscopies, cataract removal, D&C, bladder suspension, PICC, loop recorder, toe amputation may 2021, left AKA Past Anesthesia/Blood Transfusion Reactions: Motion Sickness, Postoperative Nausea & Vomiting (PONV) Past Psychological History: No Psychological Hx Reported Smoking Status: Never smoker Past Alcohol Use History: None Reported Past Drug Use History: None Reported - Past Family History Father Family Medical History: Liver Disease Additional Family Medical History / Comment(s): Father of cirrhosis. He was a drinker. Mother History Unknown: Yes Family Medical History: Unable to Obtain Additional Family Medical History / Comment(s): Pt states she does not know her mother's medical history, but knows she at the age of 62 yrs.. Son(s) Family Medical History: Unable to Obtain, Renal Disease Daughter(s) Family Medical History: Cancer Medications and Allergies Home Medications Medication Instructions Recorded Confirmed Type Atorvastatin [Lipitor] 40 mg PO HS 12/02/20 09/12/23 History Cholecalciferol [Vitamin D3 (25 50 mcg PO DAILY 07/24/21 09/12/23 History Mcg = 1000 Iu)] Cranberry Fruit Extract [Cranberry] 500 mg PO DAILY 07/24/21 09/12/23 History Insulin Aspart [NovoLOG Flexpen] See Protocol SQ AC-TID PRN 12/16/21 09/12/23 History Clopidogrel Bisulfate [Clopidogrel] 75 mg PO DAILY 04/29/22 09/12/23 History Omeprazole [PriLOSEC] 20 mg PO DAILY 04/29/22 09/12/23 History Lisinopril-Hctz 20-12.5 mg 1 tab PO DIRECTED 10/05/22 09/12/23 History [Zestoretic 20-12.5] NIFEdipine XL [Procardia XL] 30 mg PO DIRECTED 10/05/22 09/12/23 History Metoprolol Tartrate [Lopressor] 50 mg PO BID #0 10/11/22 09/12/23 Rx Levothyroxine Sodium [Synthroid] 50 mcg PO HS 04/27/23 09/12/23 History Nitroglycerin Sl Tabs [Nitrostat] 0.4 mg SUBLINGUAL Q5M PRN 04/27/23 09/12/23 History Propylene Glycol [Systane Complete] 1 drop BOTH EYES QID PRN 04/27/23 09/12/23 History Acetaminophen Tab [Tylenol] 500 mg PO Q6HR PRN tab 04/29/23 09/12/23 Rx Insulin Glargine,Hum.rec.anlog 22 units SQ DAILY 09/12/23 09/12/23 History [Lantus Solostar Pen] Allergies Allergy/AdvReac Type Severity Reaction Status Date / Time aspirin Allergy Rash/Hives Verified 09/12/23 19:45 fish derived Allergy Rash/Hives Verified 09/12/23 19:45 Iodinated Contrast Media Allergy Rash/Hives Verified 09/12/23 19:45 [Iodinated Contrast Media - IV Dye] Iodine and Iodide Containing Allergy Rash/Hives Verified 09/12/23 19:45 Produc shellfish derived [Shellfish] Allergy Rash/Hives Verified 09/12/23 19:45 sulfamethoxazole Allergy Itching Verified 09/12/23 19:45 [From Bactrim] trimethoprim [From Bactrim] Allergy Itching Verified 09/12/23 19:45 Physical Exam Vitals: Vital Signs Temp Pulse Resp BP Pulse Ox 09/12/23 19:45 56 L 18 226/86 99 09/12/23 18:50 53 L 18 179/80 100 09/12/23 18:00 51 L 18 211/128 91 L 09/12/23 17:30 50 L 16 220/96 96 09/12/23 17:00 53 L 18 202/75 97 09/12/23 16:30 50 L 17 203/100 98 09/12/23 16:00 71 18 203/100 97 09/12/23 15:39 74 18 190/77 97 09/12/23 15:30 74 18 197/99 98 09/12/23 15:07 71 18 231/84 97 09/12/23 15:00 71 24 233/86 97 09/12/23 14:46 70 18 233/86 96 09/12/23 14:30 63 22 236/88 99 09/12/23 14:28 64 18 230/86 96 09/12/23 14:15 64 16 233/108 09/12/23 14:00 62 18 233/108 09/12/23 13:45 61 16 239/92 98 09/12/23 13:30 60 16 09/12/23 13:15 55 L 18 231/160 98 09/12/23 13:06 53 L 20 231/160 98 09/12/23 13:00 60 16 98 09/12/23 12:56 64 17 97 09/12/23 12:40 97.5 F L 61 18 242/105 99 Intake and Output 09/12/23 09/12/23 09/12/23 06:59 14:59 22:59 Output Total 950 Balance -950 Output: Urine 450 Uretheral ([place]) 450 Post Void Residual 500 Other: Weight 90.718 kg Results CBC & Chem 7: 09/12/23 13:08 09/12/23 13:08 Labs: Abnormal Lab Results - Last 24 Hours (Table) 09/12/23 Range/Units 13:08 Chloride 108 H (98-107) mmol/L BUN 19 H (7-17) mg/dL Glucose 142 H (74-99) mg/dL
[2023-09-12] MEDS: PANTOPRAZOLE 40 MG TABLET PO SCH (20:58)
[2023-09-12] MEDS: LEVOTHYROXINE 50 MCG TAB PO SCH (20:58)
[2023-09-12] MEDS: METOPROLOL TARTRATE 50 MG TAB PO SCH (20:58)
[2023-09-12] MEDS: ATORVASTATIN 40 MG TAB PO SCH (20:58)
[2023-09-12 21:07] LABS: Glucose,Whole Blood 67 mg/dL (70-110)
[2023-09-12] MEDS: PRAZOSIN 1 MG CAP PO ONE (23:21)
[2023-09-12 23:22] LABS: Glucose,Whole Blood 77 mg/dL (70-110)
[2023-09-13] MEDS: ACETAMINOPHEN TAB 325 MG TAB PO PRN
[2023-09-13 06:35] LABS: Glucose,Whole Blood 96 mg/dL (70-110)
[2023-09-13] MEDS: INSULIN ASPART (NovoLOG) 100 UNIT/ML VIAL SQ SCH (06:35)
[2023-09-13] MEDS ORDERED: INSULIN DETEMIR (LEVEMIR) 100 UNIT/ML SYR SQ SCH (07:00)
[2023-09-13] MEDS: INSULIN DETEMIR (LEVEMIR) 100 UNIT/ML SYR SQ SCH (07:24)
[2023-09-13] MEDS: CLOPIDOGREL 75 MG TAB PO SCH (07:28)
[2023-09-13] MEDS ORDERED: PANTOPRAZOLE 40 MG/10 ML VIAL IV SCH (09:00)
[2023-09-13] MEDS: NIFEdipine XL 30 MG TAB.ER.24 PO SCH (11:12)
[2023-09-13 11:51] LABS: Glucose,Whole Blood 147 mg/dL (70-110)
[2023-09-13] MEDS: METOCLOPRAMIDE 10 MG TAB PO SCH (12:03)
[2023-09-13 16:55] LABS: Glucose,Whole Blood 170 mg/dL (70-110)
--- NOTE | 2023-09-13 18:10 | P.PN ---
Progress Note - Text Progress Note Date: 09/13/23 Chief Complaint: Vomiting pleasant 88-year-old patient who follows with Dr. Ramirez. 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 . Left AKA. Patient presents with nausea vomiting. Does complain of some abdominal pain. No diarrhea. No fever no chills. Patient is somewhat of a slow historian. Did not throw up in the ER. Still complaining of some abdominal pain. September 12: Patient mated with nausea vomiting. Still having some nausea this morning. Reglan added. Discussed the diet with the nurse. Active Medications Acetaminophen (Acetaminophen Tab 325 Mg Tab) 650 mg PO Q6HR PRN PRN Reason: Mild Pain or Fever > 100.5 Last Admin: 09/13/23 07:28 Dose: 650 mg Artificial Tears (Artificial Tears-Hypromellose Drops 15 Ml Btl) 1 drops BOTH EYES QID PRN PRN Reason: DRY EYES Atorvastatin Calcium (Atorvastatin 40 Mg Tab) 40 mg PO HS [facility] Last Admin: 09/12/23 20:58 Dose: 40 mg Clopidogrel Bisulfate (Clopidogrel 75 Mg Tab) 75 mg PO DAILY [facility] Last Admin: 09/13/23 07:28 Dose: 75 mg Dextrose/Water (Dextrose 50% Syringe 50 Ml) 25 ml IVP PER PROTOCOL PRN; Protocol PRN Reason: Hypoglycemia Dextrose/Water (Dextrose 50% Syringe 50 Ml) 50 ml IVP PER PROTOCOL PRN; Protocol PRN Reason: Hypoglycemia Hydralazine HCl (Hydralazine Hcl 20 Mg/Ml 1 Ml Vial) 10 mg IVP Q4HR PRN PRN Reason: Blood Pressure - High Sodium Chloride (Saline 0.9%) 1,000 mls @ 75 mls/hr IV .[id number] [facility] Last Admin: 09/13/23 06:35 Dose: 75 mls/hr Insulin Aspart (Insulin Aspart (Novolog) 100 Unit/Ml Vial) 0 unit SQ AC-TID [facility]; Protocol Last Admin: 09/13/23 16:57 Dose: 2 unit Insulin Detemir (Insulin Detemir (Levemir) 100 Unit/Ml Syr) 12 unit SQ DAILY@0700 [facility] Last Admin: 09/13/23 07:24 Dose: Not Given Levothyroxine Sodium (Levothyroxine 50 Mcg Tab) 50 mcg PO HS [facility] Last Admin: 09/12/23 20:58 Dose: 50 mcg Metoclopramide HCl (Metoclopramide 10 Mg Tab) 10 mg PO AC-TID [facility] Last Admin: 09/13/23 16:57 Dose: 10 mg Metoprolol Tartrate (Metoprolol Tartrate 50 Mg Tab) 50 mg PO BID [facility] Last Admin: 09/13/23 07:24 Dose: Not Given Naloxone HCl (Naloxone 0.4 Mg/Ml 1 Ml Vial) 0.2 mg IV Q2M PRN PRN Reason: Opioid Reversal Nitroglycerin (Nitroglycerin Sl Tabs 0.4 Mg Tab) 0.4 mg SUBLINGUAL Q5M PRN PRN Reason: Chest Pain Ondansetron HCl (Ondansetron 4 Mg/2 Ml Vial) 4 mg IVP Q8HR PRN PRN Reason: Nausea And Vomiting Pantoprazole Sodium (Pantoprazole 40 Mg Tablet) 40 mg PO AC-BID [facility] Last Admin: 09/13/23 16:57 Dose: 40 mg Past medical history to include: CAD, 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 Left above-knee amputation. Social history: Does not smoke or drink alcohol. Daughter lives with her.. assist with ADLs. Physical examination: VITAL SIGNS: 97.8, 63, 17, 166 x 33, 98% room air GENERAL: Reclining, tired HEENT: Hard of hearing EYES: Blind in the right eye. NECK: JVD not raised; masses not palpable. HEART: First and second heart sounds are normal; no edema. LUNGS: Respiratory rate normal; some right basal crackles. ABDOMEN: Soft, nontender, liver spleen not palpable, no masses palpable. PSYCH: Able to answer questions but a bit forgetful. MUSCULOSKELETAL:No Clubbing/cyanosis;muscles-grossly intact. Left above-knee amputation. Limited range of motion right shoulder Dressing on the right foot. Chronic ischemic changes of the toes NEUROLOGICAL: Cranial nerves grossly intact; Chronic left-sided weakness. Blind in the right eye. INVESTIGATIONS, reviewed in the clinical context September 11: White count 8.3 hemoglobin 12.2 platelets 229 potassium 3.7 BUN 19 creatinine 0.69 Influenza type A, type B, RSV, COVID-19: PCR: Negative EKG tracing personally reviewed by me-normal sinus rhythm. Intraventricular block. Nonspecific T wave changes. CT abdomen pelvis: Unremarkable. Chest x-ray film personally reviewed by me-borderline cardiomegaly Assessment and plan: -Acute nausea vomiting at home with some abdominal pain. Suspect acute gastritis.: Slow to respond PPI. Liquid diet Add Reglan 10 mg AC 3 times daily -Essential hypertension, uncontrolled likely patient missed her medications because of nausea vomiting Lopressor 50 mg twice a day. Zestoretic 20/12.5 once daily Procardia XL 30 mg daily. -chronic right shoulder dysfunction -Coronary artery disease, prior history of bypass 2007 Lopressor, Plavix -Diabetes mellitus type 2 , uncontrolled with hypoglycemia, because of decreased oral intake Levemir -Blind in the right eye, chronic -Left above-knee amputation -Hyperlipidemia Lipitor 40 mg daily at bedtime -Hypothyroidism Synthroid 50 g a day -Primary osteoarthritis Continue pain medications -Diabetic peripheral neuropathy -Chronic urinary incontinence Depend -DO NOT RESUSCITATE Reglan added. Diet discussed with the nurse. 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, dysphagia,esophageal strictures with dilation, hiatal hernia, L eye diabetic retinopathy/R eye blindness, bilateral [place], UTIS/urinary leakage, past bilateral feet sores/osteomylitis, generalized pain, bilateral carpal tunnel syndrome, vertigo, hypothyroid, anemia History of Any Multi-Drug Resistant Organisms: MRSA Date of last positivie culture/infection: 10/05/22 MDRO Source:: Urine Past Surgical History: Bladder Surgery, Cholecystectomy, Coronary Bypass/CABG, Heart Catheterization, Hysterectomy Additional Past Surgical History / Comment(s): 2007 CABG 4 vessel, EGDs with dilations, colonoscopies, cataract removal, D&C, bladder suspension, PICC, loop recorder, toe amputation may 2021, left AKA Past Anesthesia/Blood Transfusion Reactions: Motion Sickness, Postoperative Nausea & Vomiting (PONV) Past Psychological History: No Psychological Hx Reported Smoking Status: Never smoker Past Alcohol Use History: None Reported Past Drug Use History: None Reported
[2023-09-13 20:18] LABS: Glucose,Whole Blood 140 mg/dL (70-110)
[2023-09-14] MEDS: hydrALAZINE HCL 20 MG/ML 1 ML VIAL IVP PRN (00:23)
[2023-09-14 05:09] VITALS: RESP 16
[2023-09-14 06:18] LABS: Glucose,Whole Blood 215 mg/dL (70-110)
[2023-09-14 11:19] LABS: Glucose,Whole Blood 89 mg/dL (70-110)
[2023-09-14 14:37] VITALS: BMI 34.3
--- NOTE | 2023-09-14 16:46 | P.PN ---
Progress Note - Text Progress Note Date: 09/14/23 Chief Complaint: Vomiting pleasant 88-year-old patient who follows with Dr. Ramirez. 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 . Left AKA. Patient presents with nausea vomiting. Does complain of some abdominal pain. No diarrhea. No fever no chills. Patient is somewhat of a slow historian. Did not throw up in the ER. Still complaining of some abdominal pain. September 12: Patient mated with nausea vomiting. Still having some nausea this morning. Reglan added. Discussed the diet with the nurse. September 13: Nausea better. Patient started on Reglan yesterday. Will advance diet to a chopped diet and see how she does with the same. Blood pressure has been fluctuating. Add Zestoretic 20/12.5 twice daily Active Medications Acetaminophen (Acetaminophen Tab 325 Mg Tab) 650 mg PO Q6HR PRN PRN Reason: Mild Pain or Fever > 100.5 Last Admin: 09/13/23 07:28 Dose: 650 mg Artificial Tears (Artificial Tears-Hypromellose Drops 15 Ml Btl) 1 drops BOTH EYES QID PRN PRN Reason: DRY EYES Atorvastatin Calcium (Atorvastatin 40 Mg Tab) 40 mg PO HS [facility] [place] Last Admin: 09/13/23 20:12 Dose: 40 mg Clopidogrel Bisulfate (Clopidogrel 75 Mg Tab) 75 mg PO DAILY [facility] [place] Last Admin: 09/14/23 09:26 Dose: 75 mg Dextrose/Water (Dextrose 50% Syringe 50 Ml) 25 ml IVP PER PROTOCOL PRN; Protocol PRN Reason: Hypoglycemia Dextrose/Water (Dextrose 50% Syringe 50 Ml) 50 ml IVP PER PROTOCOL PRN; Pr otocol PRN Reason: Hypoglycemia Lisinopril/HCTZ (Lisinopril-Hctz 20-25 Mg 1 Each Tab) 1 each PO BID [facility] [place] Hydralazine HCl (Hydralazine Hcl 20 Mg/Ml 1 Ml Vial) 10 mg IVP Q4HR PRN PRN Reason: Blood Pressure - High Last Admin: 09/14/23 11:57 Dose: 10 mg Sodium Chloride (Saline 0.9%) 1,000 mls @ 75 mls/hr IV .[id number] [facility] [place] Last Admin: 09/14/23 09:26 Dose: Not Given Insulin Aspart (Insulin Aspart (Novolog) 100 Unit/Ml Vial) 0 unit SQ AC-TID [facility] [place]; Protocol Last Admin: 09/14/23 11:26 Dose: Not Given Insulin Detemir (Insulin Detemir (Levemir) 100 Unit/Ml Syr) 12 unit SQ DAILY@0700 [facility] [place] Last Admin: 09/14/23 06:35 Dose: 12 unit Levothyroxine Sodium (Levothyroxine 50 Mcg Tab) 50 mcg PO HS [facility] [place] Last Admin: 09/13/23 20:13 Dose: 50 mcg Metoclopramide HCl (Metoclopramide 10 Mg Tab) 10 mg PO AC-TID [facility] [place] Last Admin: 09/14/23 11:54 Dose: 10 mg Metoprolol Tartrate (Metoprolol Tartrate 50 Mg Tab) 50 mg PO BID [facility] [place] Last Admin: 09/14/23 09:26 Dose: 50 mg Naloxone HCl (Naloxone 0.4 Mg/Ml 1 Ml Vial) 0.2 mg IV Q2M PRN PRN Reason: Opioid Reversal Nitroglycerin (Nitroglycerin Sl Tabs 0.4 Mg Tab) 0.4 mg SUBLINGUAL Q5M PRN PRN Reason: Chest Pain Ondansetron HCl (Ondansetron 4 Mg/2 Ml Vial) 4 mg IVP Q8HR PRN PRN Reason: Nausea And Vomiting Pantoprazole Sodium (Pantoprazole 40 Mg Tablet) 40 mg PO AC-BID [facility] [place] Last Admin: 09/14/23 06:35 Dose: 40 mg Past medical history to include: CAD, 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 Left above-knee amputation. Social history: Does not smoke or drink alcohol. Daughter lives with her.. assist with ADLs. Physical examination: VITAL SIGNS: 97.6, 62, 16, 174 x 72, 97% room air GENERAL: Reclining, more comfortable HEENT: Hard of hearing EYES: Blind in the right eye. NECK: JVD not raised; masses not palpable. HEART: First and second heart sounds are normal; no edema. LUNGS: Respiratory rate normal; some right basal crackles. ABDOMEN: Soft, nontender, liver spleen not palpable, no masses palpable. PSYCH: Able to answer questions but a bit forgetful. MUSCULOSKELETAL:No Clubbing/cyanosis;muscles-grossly intact. Left above-knee amputation. Limited range of motion right shoulder Dressing on the right foot. Chronic ischemic changes of the toes NEUROLOGICAL: Cranial nerves grossly intact; Chronic left-sided weakness. Blind in the right eye. INVESTIGATIONS, reviewed in the clinical context September 11: White count 8.3 hemoglobin 12.2 platelets 229 potassium 3.7 BUN 19 creatinine 0.69 Influenza type A, type B, RSV, COVID-19: PCR: Negative EKG tracing personally reviewed by me-normal sinus rhythm. Intraventricular block. Nonspecific T wave changes. CT abdomen pelvis: Unremarkable. Chest x-ray film personally reviewed by me-borderline cardiomegaly Assessment and plan: -Acute nausea vomiting at home with some abdominal pain. Suspect acute gastritis.: Better PPI. Liquid diet Reglan 10 mg AC 3 times daily -Essential hypertension, uncontrolled Lopressor 50 mg twice a day. Zestoretic 20/12.5 twice daily-added today -chronic right shoulder dysfunction -Coronary artery disease, prior history of bypass 2008 Lopressor, Plavix -Diabetes mellitus type 2 , uncontrolled with hypoglycemia, because of decreased oral intake Levemir -Blind in the right eye, chronic -Left above-knee amputation -Hyperlipidemia Lipitor 40 mg daily at bedtime -Hypothyroidism Synthroid 50 g a day -Primary osteoarthritis Continue pain medications -Diabetic peripheral neuropathy -Chronic urinary incontinence Depend -DO NOT RESUSCITATE Advance diet to chopped. Add Zestoretic 20/12.5 twice daily. 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, dysphagia,esophageal strictures with dilation, hiatal hernia, L eye diabetic retinopathy/R eye blindness, bilateral [place], UTIS/urinary leakage, past bilateral feet sores/osteomylitis, generalized pain, bilateral carpal tunnel syndrome, vertigo, hypothyroid, anemia History of Any Multi-Drug Resistant Organisms: MRSA Date of last positivie culture/infection: 10/05/22 MDRO Source:: Urine Past Surgical History: Bladder Surgery, Cholecystectomy, Coronary Bypass/CABG, Heart Catheterization, Hysterectomy Additional Past Surgical History / Comment(s): 2007 CABG 4 vessel, EGDs with dilations, colonoscopies, cataract removal, D&C, bladder suspension, PICC, loop recorder, toe amputation may 2021, left AKA Past Anesthesia/Blood Transfusion Reactions: Motion Sickness, Postoperative Nausea & Vomiting (PONV) Past Psychological History: No Psychological Hx Reported Smoking Status: Never smoker Past Alcohol Use History: None Reported Past Drug Use History: None Reported
[2023-09-14 16:56] LABS: Glucose,Whole Blood 111 mg/dL (70-110)
[2023-09-14] MEDS: LISINOPRIL-HCTZ 20-25 MG 1 EACH TAB PO ONE (17:15)
[2023-09-14] MEDS: LISINOPRIL-HCTZ 20-25 MG 1 EACH TAB PO SCH ×2 (20:22→20:26)
[2023-09-14 20:30] LABS: Glucose,Whole Blood 90 mg/dL (70-110)
[2023-09-15 06:19] LABS: Glucose,Whole Blood 94 mg/dL (70-110)
[2023-09-15] MEDS: METOCLOPRAMIDE 5 MG TAB PO SCH (06:56)
[2023-09-15 11:12] VITALS: TEMP 97.9
[2023-09-15 11:19] LABS: Glucose,Whole Blood 204 mg/dL (70-110)
[2023-09-15 12:20] VITALS: BP 188/74; PULSE 75
[2023-09-15] MEDS: NIFEdipine XL 30 MG TAB.ER.24 PO SCH (12:54)
--- NOTE | 2023-09-15 16:35 | P.DS ---
Providers Date of admission: 09/14/23 14:38 Expected date of discharge: 09/15/23 Attending physician: Elan Nagel Primary care physician: Esvin Ramirez [facility] Course: Chief Complaint: Vomiting pleasant 88-year-old patient who follows with Dr. Ramirez. 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 . Left AKA. Patient presents with nausea vomiting. Does complain of some abdominal pain. No diarrhea. No fever no chills. Patient is somewhat of a slow historian. Did not throw up in the ER. Still complaining of some abdominal pain. September 12: Patient mated with nausea vomiting. Still having some nausea this morning. Reglan added. Discussed the diet with the nurse. September 13: Nausea better. Patient started on Reglan yesterday. Will advance diet to a chopped diet and see how she does with the same. Blood pressure has been fluctuating. Add Zestoretic 20/12.5 twice daily September 14: Blood pressure medications adjusted. Zestoretic 20/12.5 twice daily was added yesterday. Procardia XL 30 mg added this morning. Tolerating diet. Feeling well. Past medical history to include: CAD, 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 Left above-knee amputation. Social history: Does not smoke or drink alcohol. Daughter lives with her.. assist with ADLs. Physical examination: VITAL SIGNS: 97.9, 71, 16, 161 x 75, 96% room air GENERAL: Comfortable HEENT: Hard of hearing EYES: Blind in the right eye. NECK: JVD not raised; masses not palpable. HEART: First and second heart sounds are normal; no edema. LUNGS: Respiratory rate normal; some right basal crackles. ABDOMEN: Soft, nontender, liver spleen not palpable, no masses palpable. PSYCH: Able to answer questions but a bit forgetful. MUSCULOSKELETAL:No Clubbing/cyanosis;muscles-grossly intact. Left above-knee amputation. Limited range of motion right shoulder Dressing on the right foot. Chronic ischemic changes of the toes NEUROLOGICAL: Cranial nerves grossly intact; Chronic left-sided weakness. Blind in the right eye. INVESTIGATIONS, reviewed in the clinical context September 11: White count 8.3 hemoglobin 12.2 platelets 229 potassium 3.7 BUN 19 creatinine 0.69 Influenza type A, type B, RSV, COVID-19: PCR: Negative EKG tracing personally reviewed by me-normal sinus rhythm. Intraventricular block. Nonspecific T wave changes. CT abdomen pelvis: Unremarkable. Chest x-ray film personally reviewed by me-borderline cardiomegaly Assessment and plan: -Acute nausea vomiting at home with some abdominal pain. Suspect acute gastritis.: Resolved. Could be from element of gastroparesis from underlying diabetes. PPI. Liquid diet Will stop Reglan now -Essential hypertension, better Lopressor 50 mg twice a day. Zestoretic 20/12.5 twice daily-. Procardia XL 30 mg a day added. -chronic right shoulder dysfunction -Coronary artery disease, prior history of bypass 2007 Lopressor, Plavix -Diabetes mellitus type 2 , uncontrolled with hypoglycemia, because of decreased oral intake Levemir -Blind in the right eye, chronic -Left above-knee amputation -Hyperlipidemia Lipitor 40 mg daily at bedtime -Hypothyroidism Synthroid 50 g a day -Primary osteoarthritis Continue pain medications -Diabetic peripheral neuropathy -Chronic urinary incontinence Depend -DO NOT RESUSCITATE Disposition: Home 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, dysphagia,esophageal strictures with dilation, hiatal hernia, L eye diabetic retinopathy/R eye blindness, bilateral [place], UTIS/urinary leakage, past bilateral feet sores/osteomylitis, generalized pain, bilateral carpal tunnel syndrome, vertigo, hypothyroid, anemia History of Any Multi-Drug Resistant Organisms: MRSA Date of last positivie culture/infection: 10/05/22 MDRO Source:: Urine Past Surgical History: Bladder Surgery, Cholecystectomy, Coronary Bypass/CABG, Heart Catheterization, Hysterectomy Additional Past Surgical History / Comment(s): 2007 CABG 4 vessel, EGDs with dilations, colonoscopies, cataract removal, D&C, bladder suspension, PICC, loop recorder, toe amputation may 2021, left AKA Past Anesthesia/Blood Transfusion Reactions: Motion Sickness, Postoperative Nausea & Vomiting (PONV) Past Psychological History: No Psychological Hx Reported Smoking Status: Never smoker Past Alcohol Use History: None Reported Past Drug Use History: None Reported Plan - Discharge Summary New Discharge Prescriptions: New Pantoprazole [Protonix] 40 mg PO AC-BID #60 tab Continue Atorvastatin [Lipitor] 40 mg PO HS Cranberry Fruit Extract [Cranberry] 500 mg PO DAILY Cholecalciferol [Vitamin D3 (25 Mcg = 1000 Iu)] 50 mcg PO DAILY Metoprolol Tartrate [Lopressor] 50 mg PO BID #0 Levothyroxine Sodium [Synthroid] 50 mcg PO HS Nitroglycerin Sl Tabs [Nitrostat] 0.4 mg SUBLINGUAL Q5M PRN PRN Reason: Chest Pain Acetaminophen Tab [Tylenol] 500 mg PO Q6HR PRN tab PRN Reason: Fever And/ Or Pain Insulin Glargine,Hum.rec.anlog [Lantus Solostar Pen] 22 units SQ DAILY Insulin Aspart [NovoLOG Flexpen] See Protocol SQ AC-TID PRN PRN Reason: high blood sugar, >150 Omeprazole [PriLOSEC] 20 mg PO DAILY Clopidogrel Bisulfate [Clopidogrel] 75 mg PO DAILY Propylene Glycol [Systane Complete] 1 drop BOTH EYES QID PRN PRN Reason: DRY EYES Changed Lisinopril-Hctz 20-12.5 mg [Zestoretic 20-12.5] 1 tab PO BID #60 tab NIFEdipine XL [Procardia XL] 30 mg PO DAILY #0 Discharge Medication List Atorvastatin [Lipitor] 40 mg PO HS 12/02/20 [History] Cholecalciferol [Vitamin D3 (25 Mcg = 1000 Iu)] 50 mcg PO DAILY 07/24/21 [History] Cranberry Fruit Extract [Cranberry] 500 mg PO DAILY 07/24/21 [History] Insulin Aspart [NovoLOG Flexpen] See Protocol SQ AC-TID PRN 12/16/21 [History] Clopidogrel Bisulfate [Clopidogrel] 75 mg PO DAILY 04/29/22 [History] Omeprazole [PriLOSEC] 20 mg PO DAILY 04/29/22 [History] Metoprolol Tartrate [Lopressor] 50 mg PO BID #0 10/11/22 [Rx] Levothyroxine Sodium [Synthroid] 50 mcg PO HS 04/27/23 [History] Nitroglycerin Sl Tabs [Nitrostat] 0.4 mg SUBLINGUAL Q5M PRN 04/27/23 [History] Propylene Glycol [Systane Complete] 1 drop BOTH EYES QID PRN 04/27/23 [History] Acetaminophen Tab [Tylenol] 500 mg PO Q6HR PRN tab 04/29/23 [Rx] Insulin Glargine,Hum.rec.anlog [Lantus Solostar Pen] 22 units SQ DAILY 09/12/23 [History] Lisinopril-Hctz 20-12.5 mg [Zestoretic 20-12.5] 1 tab PO BID #60 tab 09/15/23 [Rx] NIFEdipine XL [Procardia XL] 30 mg PO DAILY #0 09/15/23 [Rx] Pantoprazole [Protonix] 40 mg PO AC-BID #60 tab 09/15/23 [Rx] Follow up Appointment(s)/Referral(s): Esvin Ramirez DO [Primary Care Provider] - 1-2 days [facility] Visiting Nurse, [NON-STAFF] - Discharge Disposition: HOME SELF-CARE
== END 2023-09-15 16:29 | disposition home health service (06) | DRG 392 ==
LOC: EC 12:37 → 3SCARD 15:37 → OBSVTOIN 09-14 14:38
PROVIDERS: ADMIT Hospitalist; ATTEND Hospitalist
DX: K29.00 Acute gastritis without bleeding (principal); I69.354 Hemiplegia and hemiparesis following cerebral infarction affecting left non-dominant side; E11.649 Type 2 diabetes mellitus with hypoglycemia without coma; E11.319 Type 2 diabetes mellitus with unspecified diabetic retinopathy without macular edema; E11.42 Type 2 diabetes mellitus with diabetic polyneuropathy; E11.43 Type 2 diabetes mellitus with diabetic autonomic (poly)neuropathy; E11.51 Type 2 diabetes mellitus with diabetic peripheral angiopathy without gangrene; J44.9 Chronic obstructive pulmonary disease, unspecified; I10 Essential (primary) hypertension; I16.0 Hypertensive urgency; E03.9 Hypothyroidism, unspecified; Z89.612 Acquired absence of left leg above knee; Z79.4 Long term (current) use of insulin; Z66 Do not resuscitate; Z28.310 Unvaccinated for COVID-19; I25.10 Atherosclerotic heart disease of native coronary artery without angina pectoris; K31.84 Gastroparesis; H54.61 Unqualified visual loss, right eye, normal vision left eye; E78.5 Hyperlipidemia, unspecified; G89.29 Other chronic pain; K44.9 Diaphragmatic hernia without obstruction or gangrene; K22.2 Esophageal obstruction; M19.91 Primary osteoarthritis, unspecified site; K21.9 Gastro-esophageal reflux disease without esophagitis; R32 Unspecified urinary incontinence; H91.90 Unspecified hearing loss, unspecified ear; Z79.02 Long term (current) use of antithrombotics/antiplatelets; Z79.890 Hormone replacement therapy; Z79.899 Other long term (current) drug therapy; Z95.1 Presence of aortocoronary bypass graft; Z87.440 Personal history of urinary (tract) infections; Z86.14 Personal history of Methicillin resistant Staphylococcus aureus infection
CPT/HCPCS: 36415; 51702; 51798; 70450; 71046; 74176; 80053; 82150; 83036; 83690; 84484; 85025; 85610; 85730; 87636; 93005; 96361; 96374; 96375; 96376; 99291

== ENCOUNTER 2023-10-29 02:17 | Inpatient (IN) | payer MEDICARE, OTHER ==
[2023-10-29 02:35] LABS: Glucose,Whole Blood 45 mg/dL (70-110)
[2023-10-29] MEDS: DEXTROSE 50% SYRINGE 50 ML IVP STA (02:48)
[2023-10-29 02:54] LABS: Basophils % (A) 0 %; Eosinophils # (A) 0.1 k/uL (0-0.7); Eosinophils % (A) 2 %; HCT 36.4 % (34.0-46.0); HGB 11.9 gm/dL (11.4-16.0); Lymphocytes # (A) 1.2 k/uL (1.0-4.8); Lymphocytes % (A) 16 %; MCH 28.5 pg (25.0-35.0); MCHC 32.8 g/dL (31.0-37.0); MCV 86.9 fL (80.0-100.0); Mean Platelet Volume 8.3; Monocytes # (A) 0.5 k/uL (0-1.0); Monocytes % (A) 6 %; Neutrophils # (A) 5.4 k/uL (1.3-7.7); Neutrophils % (A) 74 %; Platelet Count 260 k/uL (150-450); RBC 4.19 m/uL (3.80-5.40); WBC 7.3 k/uL (3.8-10.6)
[2023-10-29 03:04] LABS: Partial Thromboplastin Time 26.6 sec (22.0-30.0); Prothrombin Time 11.3 sec (10.0-12.5)
[2023-10-29 03:07] LABS: Glucose,Whole Blood 137 mg/dL (70-110)
[2023-10-29 03:09] LABS: ALT 21 U/L (4-34); AST 27 U/L (14-36); African American GFR (CKD) 65 (>60 ml/min/1.73 sqM); Albumin 3.7 g/dL (3.5-5.0); Alkaline Phosphatase 116 U/L (38-126); Amylase 41 U/L (30-110); Anion Gap 9 mmol/L; Blood Urea Nitrogen 22 mg/dL (7-17); Calcium 8.6 mg/dL (8.4-10.2); Carbon Dioxide 25 mmol/L (22-30); Chloride 107 mmol/L (98-107); Lipase 39 U/L (23-300); Magnesium 1.3 mg/dL (1.6-2.3); Non-African American GFR(CKD) 56 (>60 ml/min/1.73 sqM); Potassium 3.5 mmol/L (3.5-5.1); Sodium 141 mmol/L (137-145); Total Bilirubin 0.6 mg/dL (0.2-1.3); Total Protein 6.7 g/dL (6.3-8.2)
[2023-10-29 03:34] LABS: Glucose 39 mg/dL (74-99)
[2023-10-29 03:45] LABS: Amorphous Sediment,Urine Rare /hpf; Appearance,Urine Clear (Clear); Bilirubin,Urine Negative (Negative); Blood,Urine Negative (Negative); Color,Urine Yellow; Glucose,Urine (UA) 2+ (Negative); Hyaline Casts,Urine 24 /lpf (0-2); Ketones,Urine Negative (Negative); Leukocyte Esterase,Urine Negative (Negative); Mucus,Urine Rare /hpf; Nitrite,Urine Negative (Negative); PH, Urine 6.5 (5.0-8.0); Protein,Urine 2+ (Negative); RBC,Urine 3 /hpf (0-5); Specific Gravity,Urine 1.022 (1.001-1.035); Squamous Epithelial Cell,Urine 6 /hpf (0-4); Urobilinogen,Urine <2.0 mg/dL (<2.0); WBC,Urine 1 /hpf (0-5)
--- NOTE | 2023-10-29 04:06 | XR ---
EXAM: XR Chest, 2 Views CLINICAL HISTORY: ITS.REASON XR Reason: ams TECHNIQUE: Frontal and lateral views of the chest. COMPARISON: 04/27/2023 FINDINGS: Lungs: Unremarkable. No consolidation. Pleural space: Unremarkable. No pneumothorax. Heart: Mild cardiomegaly. Median sternotomy wires and surgical clips consistent with prior CABG. Mediastinum: Unremarkable. Normal mediastinal contour. Bones/joints: Unremarkable. No acute fracture. IMPRESSION: No acute pulmonary process.
[2023-10-29 04:30] LABS: Glucose,Whole Blood 260 mg/dL (70-110)
--- NOTE | 2023-10-29 04:33 | ED ---
Altered Mental Status HPI - General Chief Complaint: Altered Mental Status Stated Complaint: AMS Time Seen by Provider: 10/29/23 02:30 Source: EMS Mode of arrival: EMS - History of Present Illness Initial Comments: 88-year-old female presented to the ED with complaints of altered mental status. Per daughter at bedside, presumptive history of dementia. For the past month has episodes where she screams in the middle of the night. Today, state that the patient was screaming more than usual. Otherwise reports that she has been taking care of the patient on her own at home and normally feeds her and gives her medications. States that the patient has otherwise been doing okay and has had no complaints. Upon evaluation patient is sleeping comfortably. History from the patient herself is limited. Patient's daughter feels like she may not be able to continue taking care of her herself at home. No other complaints at this time. - Related Data Home Medications Medication Instructions Recorded Confirmed Atorvastatin [Lipitor] 40 mg PO HS 12/02/20 09/12/23 Cholecalciferol [Vitamin D3 (25 50 mcg PO DAILY 07/24/21 09/12/23 Mcg = 1000 Iu)] Cranberry Fruit Extract [Cranberry] 500 mg PO DAILY 07/24/21 09/12/23 Insulin Aspart [NovoLOG Flexpen] See Protocol SQ AC-TID PRN 12/16/21 09/12/23 Clopidogrel Bisulfate [Clopidogrel] 75 mg PO DAILY 04/29/22 09/12/23 Omeprazole [PriLOSEC] 20 mg PO DAILY 04/29/22 09/12/23 Levothyroxine Sodium [Synthroid] 50 mcg PO HS 04/27/23 09/12/23 Nitroglycerin Sl Tabs [Nitrostat] 0.4 mg SUBLINGUAL Q5M PRN 04/27/23 09/12/23 Propylene Glycol [Systane Complete] 1 drop BOTH EYES QID PRN 04/27/23 09/12/23 Insulin Glargine,Hum.rec.anlog 22 units SQ DAILY 09/12/23 09/12/23 [Lantus Solostar Pen] Previous Rx's Medication Instructions Recorded Metoprolol Tartrate [Lopressor] 50 mg PO BID #0 10/11/22 Acetaminophen Tab [Tylenol] 500 mg PO Q6HR PRN tab 10/21/23 Lisinopril-Hctz 20-12.5 mg 1 tab PO BID #60 tab 09/15/23 [Zestoretic 20-12.5] NIFEdipine XL [Procardia XL] 30 mg PO DAILY #0 09/15/23 Pantoprazole [Protonix] 40 mg PO AC-BID #60 tab 09/15/23 Allergies Allergy/AdvReac Type Severity Reaction Status Date / Time aspirin Allergy Rash/Hives Verified 10/29/23 02:31 fish derived Allergy Rash/Hives Verified 10/29/23 02:31 Iodinated Contrast Media Allergy Rash/Hives Verified 10/29/23 02:31 [Iodinated Contrast Media - IV Dye] Iodine and Iodide Containing Allergy Rash/Hives Verified 10/29/23 02:31 Produc shellfish derived [Shellfish] Allergy Rash/Hives Verified 10/29/23 02:31 sulfamethoxazole Allergy Itching Verified 10/29/23 02:31 [From Bactrim] trimethoprim [From Bactrim] Allergy Itching Verified 10/29/23 02:31 Review of Systems ROS Statement: Those systems with pertinent positive or pertinent negative responses have been documented in the HPI. ROS Other: All systems not noted in ROS Statement are negative. 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, dysphagia,esophageal strictures with dilation, hiatal hernia, L eye diabetic retinopathy/R eye blindness, bilateral [place], UTIS/urinary leakage, past bilateral feet sores/osteomylitis, generalized pain, bilateral carpal tunnel syndrome, vertigo, hypothyroid, anemia History of Any Multi-Drug Resistant Organisms: MRSA Date of last positivie culture/infection: 10/05/22 MDRO Source:: Urine Past Surgical History: Bladder Surgery, Cholecystectomy, Coronary Bypass/CABG, Heart Catheterization, Hysterectomy Additional Past Surgical History / Comment(s): 2007 CABG 4 vessel, EGDs with dilations, colonoscopies, cataract removal, D&C, bladder suspension, PICC, loop recorder, toe amputation may 2021, left BKA Past Anesthesia/Blood Transfusion Reactions: Motion Sickness, Postoperative Nausea & Vomiting (PONV) Past Psychological History: No Psychological Hx Reported Smoking Status: Never smoker Past Alcohol Use History: None Reported Past Drug Use History: None Reported - Past Family History Father Family Medical History: Liver Disease Additional Family Medical History / Comment(s): Father of cirrhosis. He was a drinker. Mother History Unknown: Yes Family Medical History: Unable to Obtain Additional Family Medical History / Comment(s): Pt states she does not know her mother's medical history, but knows she at the age of 62 yrs.. Son(s) Family Medical History: Unable to Obtain, Renal Disease Daughter(s) Family Medical History: Cancer General Exam General appearance: alert, in no apparent distress Neck exam: Present: normal inspection Respiratory exam: Present: normal lung sounds bilaterally Cardiovascular Exam: Present: regular rate GI/Abdominal exam: Present: soft (No rebound guarding rigidity or tenderness to palpation.) Neurological exam: Present: alert Skin exam: Present: warm, dry Course Vital Signs 10/29/23 10/29/23 10/29/23 02:31 02:43 04:25 Temperature 97.3 F L 97.3 F L Pulse Rate 77 63 66 Respiratory 12 20 19 Rate Blood Pressure 168/81 168/81 140/58 O2 Sat by Pulse 97 96 93 L Oximetry Medical Decision Making - Medical Decision Making Was pt. sent in by a medical professional or institution (LINDSAY Looney, SUBSTANCE ABUSE SPECIALIST, urgent c are, hospital, or usp...) When possible be specific @ -No Did you speak to anyone other than the patient for history (EMS, parent, family, police, friend...)? What history was obtained from this source @ -Entirety of the history provided by the patient's daughter. For further details please HPI. Did you review nursing and triage notes (agree or disagree)? Why? @ -I reviewed and agree with nursing and triage notes Were old charts reviewed (outside hosp., previous admission, EMS record, old EKG, old radiological studies, urgent care reports/EKG's, usp records)? Report findings @ -No old charts were reviewed Differential Diagnosis (chest pain, altered mental status, abdominal pain women, abdominal pain men, vaginal bleeding, weakness, fever, dyspnea, syncope, headache, dizziness, GI bleed, back pain, seizure, CVA, palpatations, mental health, musculoskeletal)? @ -Differential Altered Mental Status: Hypoglycemia, DKA, hypercapnia, ETOH, overdose, CO poisoning, trauma, myxedema coma, HTN encephalopathy, infection, encephalitis, psychosis, intercranial hemorrhage, hepatic encephalopathy, meningitis, CVA, this is not meant to be an all-inclusive list EKG interpreted by me (3pts min.). @ -EKG interpreted by me showing a sinus rhythm with nonspecific findings. Rate of 65 bpm. NJ 161, QRS 126, QT/QTc 450/462. X-rays interpreted by me (1pt min.). @ -Chest x-ray interpreted me which revealed no evidence of acute finding. CT interpreted by me (1pt min.). @ -CT of the brain revealed no evidence of acute finding. U/S interpreted by me (1pt. min.). @ -None done What testing was considered but not performed or refused? (CT, X-rays, U/S, labs)? Why? @ -None What meds were considered but not given or refused? Why? @ -None Did you discuss the management of the patient with other professionals (professionals i.e. , PA, SUBSTANCE ABUSE SPECIALIST, lab, RT, psych nurse, social work nurse, b2b sales executive, teacher, chief growth officer, case resource manager)? Give summary @ -No Was smoking cessation discussed for >3mins.? @ -No Was critical care preformed (if so, how long)? @ -No Were there social determinants of health that impacted care today? How? (Homelessness, low income, unemployed, alcoholism, drug addiction, transportation, low edu. Level, literacy, decrease access to med. care, senior living, rehab)? @ -No Was there de-escalation of care discussed even if they declined (Discuss DNR or withdrawal of care, Hospice)? DNR status @ -No What co-morbidities impacted this encounter? (DM, HTN, Smoking, COPD, CAD, Cancer, CVA, ARF, Chemo, Hep., AIDS, mental health diagnosis, sleep apnea, morbid obesity)? @ -None Was patient admitted / discharged? Hospital course, mention meds given and route, prescriptions, significant lab abnormalities, going to OR and other pert inent info. @ -Admission 88-year-old female presents to the ED with complaints of altered mental status. Per daughter at bedside reports that the patient especially at night has episodes where she screams. States that this has been ongoing for the past 1-2 months however today seem to be worse in nature prompting presentation to the ED for further evaluation. Laboratory studies reviewed. CBC largely unremarkable. Chemistry panel remarkable for a hypoglycemia initially at 39 however patient provided D5 and sugars are now improved last check to 60. Troponin 0.018. UA shows no significant evidence of infection. Brain CT revealed no evidence of acute finding. At this time, patient's daughter reports that she feels she is unable to take care of her adequately at home. Patient will be admitted with consult to social work for placement. Undiagnosed new problem with uncertain prognosis? @ -No Drug Therapy requiring intensive monitoring for toxicity (Heparin, Nitro, Insulin, Cardizem)? @ -No Were any procedures done? @ -No Diagnosis/symptom? @ -Episode of altered mental status, difficulties caring for the patient at home. Acute, or Chronic, or Acute on Chronic? @ -Acute on chronic Uncomplicated (without systemic symptoms) or Complicated (systemic symptoms)? @ -Uncomplicated Side effects of treatment? @ -No Exacerbation, Progression, or Severe Exacerbation? @ -No Poses a threat to life or bodily function? How? (Chest pain, [place], [place], pneumonia, PE, COPD, DKA, ARF, appy, cholecystitis, CVA, Diverticulitis, Homicidal, Suicidal, threat to staff... and all critical care pts) @ -No - Lab Data Result diagrams: 10/29/23 02:15 10/29/23 02:15 Lab Results 10/29/23 10/29/23 10/29/23 Range/Units 02:15 02:15 02:15 WBC 7.3 (3.8-10.6) k/uL RBC 4.19 (3.80-5.40) m/uL Hgb 11.9 (11.4-16.0) gm/dL Hct 36.4 (34.0-46.0) % MCV 86.9 (80.0-100.0) fL MCH 28.5 (25.0-35.0) pg MCHC 32.8 (31.0-37.0) g/dL RDW 15.0 (11.5-15.5) % Plt Count 260 (150-450) k/uL MPV 8.3 Neutrophils % 74 % Lymphocytes % 16 % Monocytes % 6 % Eosinophils % 2 % Basophils % 0 % Neutrophils # 5.4 (1.3-7.7) k/uL Lymphocytes # 1.2 (1.0-4.8) k/uL Monocytes # 0.5 (0-1.0) k/uL Eosinophils # 0.1 (0-0.7) k/uL Basophils # 0.0 (0-0.2) k/uL PT 11.3 (10.0-12.5) sec INR 1.0 (<1.2) APTT 26.6 (22.0-30.0) sec Sodium 141 (137-145) mmol/L Potassium 3.5 (3.5-5.1) mmol/L Chloride 107 (98-107) mmol/L Carbon Dioxide 25 (22-30) mmol/L Anion Gap 9 mmol/L BUN 22 H (7-17) mg/dL Creatinine 0.92 (0.52-1.04) mg/dL Est GFR (CKD-EPI)AfAm 65 (>60 ml/min/1.73 sqM) Est GFR (CKD-EPI)NonAf 56 (>60 ml/min/1.73 sqM) Glucose 39 L* (74-99) mg/dL POC Glucose (mg/dL) (70-110) mg/dL POC Glu Keysmith ID Calcium 8.6 (8.4-10.2) mg/dL Magnesium 1.3 L (1.6-2.3) mg/dL Total Bilirubin 0.6 (0.2-1.3) mg/dL AST 27 (14-36) U/L ALT 21 (4-34) U/L Alkaline Phosphatase 116 (38-126) U/L Troponin I (0.000-0.034) ng/mL Total Protein 6.7 (6.3-8.2) g/dL Albumin 3.7 (3.5-5.0) g/dL Amylase 41 (30-110) U/L Lipase 39 (23-300) U/L Urine Color Urine Appearance (Clear) Urine pH (5.0-8.0) Ur Specific [place] (1.001-1.035) Urine Protein (Negative) Urine Glucose (UA) (Negative) Urine Ketones (Negative) Urine Blood (Negative) Urine Nitrite (Negative) Urine Bilirubin (Negative) Urine Urobilinogen (<2.0) mg/dL Ur Leukocyte Esterase (Negative) Urine RBC (0-5) /hpf Urine WBC (0-5) /hpf Ur Squamous Epith Cells (0-4) /hpf Amorphous Sediment (None) /hpf Hyaline Casts (0-2) /lpf Urine Mucus (None) /hpf 10/29/23 10/29/23 10/29/23 Range/Units 02:15 02:33 03:03 WBC (3.8-10.6) k/uL RBC (3.80-5.40) m/uL Hgb (11.4-16.0) gm/dL Hct (34.0-46.0) % MCV (80.0-100.0) fL MCH (25.0-35.0) pg MCHC (31.0-37.0) g/dL RDW (11.5-15.5) % Plt Count (150-450) k/uL MPV Neutrophils % % Lymphocytes % % Monocytes % % Eosinophils % % Basophils % % Neutrophils # (1.3-7.7) k/uL Lymphocytes # (1.0-4.8) k/uL Monocytes # (0-1.0) k/uL Eosinophils # (0-0.7) k/uL Basophils # (0-0.2) k/uL PT (10.0-12.5) sec INR (<1.2) APTT (22.0-30.0) sec Sodium (137-145) mmol/L Potassium (3.5-5.1) mmol/L Chloride (98-107) mmol/L Carbon Dioxide (22-30) mmol/L Anion Gap mmol/L BUN (7-17) mg/dL Creatinine (0.52-1.04) mg/dL Est GFR (CKD-EPI)AfAm (>60 ml/min/1.73 sqM) Est GFR (CKD-EPI)NonAf (>60 ml/min/1.73 sqM) Glucose (74-99) mg/dL POC Glucose (mg/dL) 45 L (70-110) mg/dL POC Glu Keysmith ID Sina Sands Calcium (8.4-10.2) mg/dL Magnesium (1.6-2.3) mg/dL Total Bilirubin (0.2-1.3) mg/dL AST (14-36) U/L ALT (4-34) U/L Alkaline Phosphatase (38-126) U/L Troponin I 0.018 (0.000-0.034) ng/mL Total Protein (6.3-8.2) g/dL Albumin (3.5-5.0) g/dL Amylase (30-110) U/L Lipase (23-300) U/L Urine Color Yellow Urine Appearance Clear (Clear) Urine pH 6.5 (5.0-8.0) Ur Specific [place] 1.022 (1.001-1.035) Urine Protein 2+ H (Negative) Urine Glucose (UA) 2+ H (Negative) Urine Ketones Negative (Negative) Urine Blood Negative (Negative) Urine Nitrite Negative (Negative) Urine Bilirubin Negative (Negative) Urine Urobilinogen <2.0 (<2.0) mg/dL Ur Leukocyte Esterase Negative (Negative) Urine RBC 3 (0-5) /hpf Urine WBC 1 (0-5) /hpf Ur Squamous Epith Cells 6 H (0-4) /hpf Amorphous Sediment Rare H (None) /hpf Hyaline Casts 24 H (0-2) /lpf Urine Mucus Rare H (None) /hpf 10/29/23 10/29/23 Range/Units 03:06 04:28 WBC (3.8-10.6) k/uL RBC (3.80-5.40) m/uL Hgb (11.4-16.0) gm/dL Hct (34.0-46.0) % MCV (80.0-100.0) fL MCH (25.0-35.0) pg MCHC (31.0-37.0) g/dL RDW (11.5-15.5) % Plt Count (150-450) k/uL MPV Neutrophils % % Lymphocytes % % Monocytes % % Eosinophils % % Basophils % % Neutrophils # (1.3-7.7) k/uL Lymphocytes # (1.0-4.8) k/uL Monocytes # (0-1.0) k/uL Eosinophils # (0-0.7) k/uL Basophils # (0-0.2) k/uL PT (10.0-12.5) sec INR (<1.2) APTT (22.0-30.0) sec Sodium (137-145) mmol/L Potassium (3.5-5.1) mmol/L Chloride (98-107) mmol/L Carbon Dioxide (22-30) mmol/L Anion Gap mmol/L BUN (7-17) mg/dL Creatinine (0.52-1.04) mg/dL Est GFR (CKD-EPI)AfAm (>60 ml/min/1.73 sqM) Est GFR (CKD-EPI)NonAf (>60 ml/min/1.73 sqM) Glucose (74-99) mg/dL POC Glucose (mg/dL) 137 H 260 H (70-110) mg/dL POC Glu Keysmith ID Toby Cotto Jean Calcium (8.4-10.2) mg/dL Magnesium (1.6-2.3) mg/dL Total Bilirubin (0.2-1.3) mg/dL AST (14-36) U/L ALT (4-34) U/L Alkaline Phosphatase (38-126) U/L Troponin I (0.000-0.034) ng/mL Total Protein (6.3-8.2) g/dL Albumin (3.5-5.0) g/dL Amylase (30-110) U/L Lipase (23-300) U/L Urine Color Urine Appearance (Clear) Urine pH (5.0-8.0) Ur Specific [place] (1.001-1.035) Urine Protein (Negative) Urine Glucose (UA) (Negative) Urine Ketones (Negative) Urine Blood (Negative) Urine Nitrite (Negative) Urine Bilirubin (Negative) Urine Urobilinogen (<2.0) mg/dL Ur Leukocyte Esterase (Negative) Urine RBC (0-5) /hpf Urine WBC (0-5) /hpf Ur Squamous Epith Cells (0-4) /hpf Amorphous Sediment (None) /hpf Hyaline Casts (0-2) /lpf Urine Mucus (None) /hpf Disposition Clinical Impression: Altered mental status Disposition: ADMITTED IP TO THIS [facility] Condition: Good Referrals: Esvin Ramirez DO [Primary Care Provider] - 1-2 days Time of Disposition: 04:59
--- NOTE | 2023-10-29 04:41 | CT ---
EXAM: CT Head Without Intravenous Contrast CLINICAL HISTORY: ITS.REASON CT Reason: ams TECHNIQUE: Axial computed tomography images of the head/brain without intravenous contrast. CTDI is 49.1 mGy and DLP is 1222 mGy-cm. This CT exam was performed using one or more of the following dose reduction techniques: automated exposure control, adjustment of the mA and/or kV according to patient size, and/or use of iterative reconstruction technique. COMPARISON: Comparison made to prior head CT from July 22, 2023. FINDINGS: Brain: Remote ischemic injury of the left occipital encephalomalacia and gliosis. Remote ischemic injury of the right cerebellum. No hemorrhage. No significant white matter disease. No edema. Empty sella with enlarged diaphragmatic sellae. Ventricles: Unremarkable. No ventriculomegaly. Bones/joints: Unremarkable. No acute fracture. Soft tissues: Right physis bulbi. The left lens replacement with retinal banding. Sinuses: Unremarkable as visualized. No acute sinusitis. Mastoid air cells: Unremarkable as visualized. No mastoid effusion. IMPRESSION: No evidence of acute intracranial pathology.
[2023-10-29] MEDS ORDERED: NALOXONE 0.4 MG/ML 1 ML VIAL IV PRN (05:00)
[2023-10-29] MEDS ORDERED: ONDANSETRON 4 MG/2 ML VIAL IVP PRN ×2 (05:00→12:15)
[2023-10-29] MEDS ORDERED: ACETAMINOPHEN TAB 325 MG TAB PO PRN (05:00)
[2023-10-29] MEDS ORDERED: DEXTROSE 50% SYRINGE 50 ML IVP PRN ×3 (05:01→12:14)
[2023-10-29] MEDS: SODIUM CHLORIDE 0.9% 1,000 ML IV SCH (05:17)
[2023-10-29 06:35] LABS: Glucose,Whole Blood 71 mg/dL (70-110)
[2023-10-29 07:01] LABS: Glucose,Whole Blood 96 mg/dL (70-110)
[2023-10-29] MEDS: INSULIN ASPART (NovoLOG) 100 UNIT/ML VIAL SQ SCH (07:44)
[2023-10-29 11:34] LABS: Glucose,Whole Blood 87 mg/dL (70-110)
[2023-10-29] MEDS ORDERED: ARTIFICIAL TEARS-HYPROMELLOSE DROPS 15 ML BTL BOTH EYES PRN (12:13)
[2023-10-29] MEDS ORDERED: hydrALAZINE HCL 20 MG/ML 1 ML VIAL IVP PRN (12:15)
--- NOTE | 2023-10-29 12:25 | P.PN ---
Progress Note - Text Progress Note Date: 10/29/23 A team was called on the patient due to worsening altered mental status. Patient currently is delirious. Per nurse early in the morning patient was AAO x 1. Patient is moaning and groaning and is protecting her airway. Per nurse patient did have an episode of coffee-ground emesis just prior to the A team. Patient's blood pressure is greater than 230 systolically. Nurse was not able to give blood pressure meds due to altered mental status. I told the nurse to check hemoglobin and give 1 dose of IV hydralazine 10 mg and to check chest XR. Patient will be transferred to 3 S. Patient is hemodynamically stable. Nurse to update primary team. Patient did have a brain CT that was unremarkable. Patient's chest x-ray was unremarkable. Patient's UA also unremarkable. During the A team response patient's blood glucose was 87. Neurology consult is pending for altered mental status which I agree with. Primary team to do further workup for the altered mental status. I recommend checking TSH since patient does have a history of hypothyroidism. However I doubt patient has myxedema coma since she is not hypotensive or has bradycardia. I also recommend surgical consult for the coffee-ground emesis. Will defer to primary team.
[2023-10-29] MEDS ORDERED: IPRATROPIUM-ALBUTEROL 3 ML NEB INHALATION PRN (12:31)
[2023-10-29] MEDS: IPRATROPIUM-ALBUTEROL 3 ML NEB INHALATION SCH (12:52)
[2023-10-29 12:54] LABS: Basophils % (A) 0 %; Eosinophils % (A) 0 %; HCT 36.5 % (34.0-46.0); HGB 11.8 gm/dL (11.4-16.0); Lymphocytes # (A) 0.8 k/uL (1.0-4.8); Lymphocytes % (A) 9 %; MCH 28.9 pg (25.0-35.0); MCHC 32.3 g/dL (31.0-37.0); MCV 89.3 fL (80.0-100.0); Mean Platelet Volume 8.6; Monocytes # (A) 0.5 k/uL (0-1.0); Monocytes % (A) 5 %; Neutrophils # (A) 7.5 k/uL (1.3-7.7); Neutrophils % (A) 84 %; Platelet Count 226 k/uL (150-450); RBC 4.08 m/uL (3.80-5.40); WBC 8.9 k/uL (3.8-10.6)
[2023-10-29] MEDS: DEXTROSE 5%-0.9% NACL 1,000 ML IV SCH (12:55)
--- NOTE | 2023-10-29 13:06 | XR ---
EXAMINATION TYPE: XR chest 1V portable DATE OF EXAM: 10/29/2023 Comparison: 10/29/2023 Clinical History: 88-year-old female ?aspiration Findings: Heart normal size. Median sternotomy wires and post-CABG clips. Loop recorder device projects along t he left side of the heart. No consolidation or pleural effusion. Impression: Post-CABG changes. Loop recorder device present. No acute process seen.
[2023-10-29] MEDS: METOPROLOL TARTRATE 50 MG TAB PO SCH (13:12)
[2023-10-29] MEDS: HEPARIN SODIUM,PORCINE 5,000 UNIT/ML 1 ML VIAL SQ SCH (13:12)
[2023-10-29] MEDS: LISINOPRIL-HCTZ 20-12.5 MG 1 EACH TAB PO SCH (13:12)
[2023-10-29] MEDS: PANTOPRAZOLE 40 MG/10 ML VIAL IVP SCH (13:12)
--- NOTE | 2023-10-29 14:33 | P.CNNES ---
History of Present Illness Consult date: 10/29/23 Reason for Consult: Acute mental status changes, rigidity History of Present Illness: The patient is an 88-year-old female who was seen in neurologic consultation on October 29, 2023, in collaboration with Connie Silva, via teleneurology. History is obtained from review of the chart. The patient is unable to provide any history. According to review of the emergency department note, the patient has a presumptive diagnosis of dementia. She reportedly is being cared for by her daughter. Apparently, per daughter, the patient has become more more agitated. She has been only screaming in the middle of the night. The screaming has inc reased recently. The daughter feels she is unable to care for her mother anymore at home. In the emergency department, CT scan of the brain was performed. There is no reported evidence of acute hemorrhage or infarct. Basic lab is normal. 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, dysphagia,esophageal strictures with dilation, hiatal hernia, L eye diabetic retinopathy/R eye blindness, bilateral CHICK[place] RANCH, UTIS/urinary leakage, past bilateral feet sores/osteomylitis, generalized pain, bilateral carpal tunnel syndrome, vertigo, hypothyroid, anemia History of Any Multi-Drug Resistant Organisms: MRSA Date of last positivie culture/infection: 10/05/22 MDRO Source:: Urine Past Surgical History: Bladder Surgery, Cholecystectomy, Coronary Bypass/CABG, Heart Catheterization, Hysterectomy Additional Past Surgical History / Comment(s): 2007 CABG 4 vessel, EGDs with dilations, colonoscopies, cataract removal, D&C, bladder suspension, PICC, loop recorder, toe amputation may 2021, left BKA Past Anesthesia/Blood Transfusion Reactions: Motion Sickness, Postoperative Na usea & Vomiting (PONV) Past Psychological History: No Psychological Hx Reported Smoking Status: Never smoker Past Alcohol Use History: None Reported Past Drug Use History: None Reported - Past Family History Father Family Medical History: Liver Disease Additional Family Medical History / Comment(s): Father of cirrhosis. He was a drinker. Mother History Unknown: Yes Family Medical History: Unable to Obtain Additional Family Medical History / Comment(s): Pt states she does not know her mother's medical history, but knows she at the age of 62 yrs.. Son(s) Family Medical History: Unable to Obtain, Renal Disease Daughter(s) Family Medical History: Cancer Medications and Allergies Home Medications Medication Instructions Recorded Confirmed Type Atorvastatin [Lipitor] 40 mg PO HS 12/02/20 10/29/23 History Cholecalciferol [Vitamin D3 (25 50 mcg PO DAILY 07/24/21 10/29/23 History Mcg = 1000 Iu)] Cranberry Fruit Extract [Cranberry] 500 mg PO DAILY 07/24/21 10/29/23 History Insulin Aspart [NovoLOG Flexpen] See Protocol SQ AC-TID PRN 12/16/21 10/29/23 History Clopidogrel Bisulfate [Clopidogrel] 75 mg PO DAILY 04/29/22 10/29/23 History Omeprazole [PriLOSEC] 20 mg PO DAILY 04/29/22 10/29/23 History Metoprolol Tartrate [Lopressor] 50 mg PO BID #0 10/11/22 10/29/23 Rx Levothyroxine Sodium [Synthroid] 50 mcg PO HS 04/27/23 10/29/23 History Nitroglycerin Sl Tabs [Nitrostat] 0.4 mg SUBLINGUAL Q5M PRN 04/27/23 10/29/23 History Propylene Glycol [Systane Complete] 1 drop BOTH EYES QID PRN 04/27/23 10/29/23 History Acetaminophen Tab [Tylenol] 500 mg PO Q6HR PRN tab 04/29/23 10/29/23 Rx Insulin Glargine,Hum.rec.anlog 20 units SQ BID 09/12/23 10/29/23 History [Lantus Solostar Pen] Lisinopril-Hctz 20-12.5 mg 1 tab PO BID #60 tab 09/15/23 10/29/23 Rx [Zestoretic 20-12.5] NIFEdipine XL [Procardia XL] 30 mg PO DAILY #0 09/15/23 10/29/23 Rx Pantoprazole [Protonix] 40 mg PO AC-BID #60 tab 09/15/23 10/29/23 Rx Allergies Allergy/AdvReac Type Severity Reaction Status Date / Time aspirin Allergy Rash/Hives Verified 10/29/23 09:54 fish derived Allergy Rash/Hives Verified 10/29/23 09:54 Iodinated Contrast Media Allergy Rash/Hives Verified 10/29/23 09:54 [Iodinated Contrast Media - IV Dye] Iodine and Iodide Containing Allergy Rash/Hives Verified 10/29/23 09:54 Produc shellfish derived [Shellfish] Allergy Rash/Hives Verified 10/29/23 09:54 sulfamethoxazole Allergy Itching Verified 10/29/23 09:54 [From Bactrim] trimethoprim [From Bactrim] Allergy Itching Verified 10/29/23 09:54 Physical Examination - Vital Signs Vital Signs: Vital Signs Temp Pulse Pulse Resp BP BP Pulse Ox 10/29/23 07:02 98.3 F 63 16 153/84 96 10/29/23 06:28 97.9 F 68 16 140/57 99 10/29/23 04:25 66 19 140/58 93 L 10/29/23 02:43 97.3 F L 63 20 168/81 96 10/29/23 02:31 97.3 F L 77 12 168/81 97 Intake and Output 10/28/23 10/29/23 10/29/23 22:59 06:59 14:59 Other: # Voids 1 Weight 63.503 kg General: The patient is reclining in the bed. She is well-nourished, well- developed and in no acute distress. HEENT: Head is atraumatic, normocephalic. Fundus not visualized. There is no scleral icterus. There is opacity of the right cornea and pupil. Mucous membranes are moist. Neck: Supple without carotid bruits Heart: Regular rate and rhythm Lungs: Essentially clear to auscultation Extremities: Without edema. There is a left below the knee amputation Neurological examination Mental status: The patient is able to state her first and last name. She is oriented to her date of . She is not oriented to current location. She says "house". The patient's speech is clear. She is able to follow some simple commands. She is extremely hard of hearing. She is frequently looking around the room at the ceiling and turning her head in all directions as if she is seeing or watching things. Cranial nerves: Left pupil is 3 mm and reactive. There is no vision from the right eye. Smile is symmetric. Tongue protrudes midline. Patient is extremely hard of hearing. She is observed swallowing applesauce. Motor: Patient is moving bilateral upper extremities. She is able to wiggle the toes on her right foot. Formal strength testing is difficult as the patient is having trouble following commands. Deep tendon reflexes: 3+/4+ in the bilateral upper extremities and right patellar reflex. Coordination not formally assessed however, the patient's observed grasping at her oxygen tubing without tremor or ataxia Sensation: Intact to noxious stimulation Gait: Not assessed Results - Laboratory Findings CBC and BMP: 10/29/23 12:05 10/29/23 02:15 Abnormal Lab Findings: Abnormal Labs 10/29/23 10/29/23 10/29/23 02:15 02:33 03:03 BUN 22 H Glucose 39 L* POC Glucose (mg/dL) 45 L Magnesium 1.3 L Urine Protein 2+ H Urine Glucose (UA) 2+ H Ur Squamous Epith Cells 6 H Amorphous Sediment Rare H Hyaline Casts 24 H Urine Mucus Rare H 10/29/23 10/29/23 03:06 04:28 BUN Glucose POC Glucose (mg/dL) 137 H 260 H Magnesium Urine Protein Urine Glucose (UA) Ur Squamous Epith Cells Amorphous Sediment Hyaline Casts Urine Mucus Assessment and Plan Assessment: 1. Patient is an 88-year-old female with progressive dementia which has recently become worse with screaming episodes: Rule out acute infection versus psychosis, secondary to dementia versus metabolic etiology 2. Reported history of strokes 3. Plan: 1. Urinalysis should be checked as this is a very common cause of worsening of dementia and/or hallucinations in elderly adults 2. Chest x-ray to look for signs of other infection 3. TSH, B12, folate, should be assessed 4. EEG may be of benefit Thank you for allowing us to participate in the care of this patient Dr. Cb Celaya will assume neurologic coverage of this patient as of October 30, 2023 Time with Patient: Greater than 30 (58 minutes were spent caring for this patient today including, obtaining history, reviewing imaging, chart documentation, labs, placing orders and creating this note)
[2023-10-29] MEDS ORDERED: Magnesium Replacement Protocol 1 EACH MISC MISCELLANE PRN (15:04)
[2023-10-29] MEDS: hydrALAZINE HCL 20 MG/ML 1 ML VIAL IVP PRN (15:08)
[2023-10-29] MEDS: MAGNESIUM SULFATE-D5W PMX 1 GM in DEXTROSE/WATER 1 100ML.BAG IVPB SCH (15:11)
[2023-10-29 16:37] LABS: Glucose,Whole Blood 44 mg/dL (70-110)
[2023-10-29 16:37] LABS: Glucose,Whole Blood 40 mg/dL (70-110)
[2023-10-29 16:49] LABS: Glucose,Whole Blood 45 mg/dL (70-110)
[2023-10-29] MEDS: DEXTROSE 50% SYRINGE 50 ML IVP PRN (16:49)
[2023-10-29 17:11] LABS: Glucose,Whole Blood 147 mg/dL (70-110)
[2023-10-29] MEDS: HALOPERIDOL LACTATE 5 MG/ML 1 ML VIAL IM PRN (17:37)
[2023-10-29] MEDS: QUEtiapine 25 MG TAB PO SCH (17:46)
[2023-10-29 17:55] LABS: Appearance,Urine Clear (Clear); Bilirubin,Urine Negative (Negative); Blood,Urine Negative (Negative); Color,Urine Colorless; Glucose,Urine (UA) Negative (Negative); Ketones,Urine Negative (Negative); Leukocyte Esterase,Urine Negative (Negative); Mucus,Urine Rare /hpf; Nitrite,Urine Negative (Negative); PH, Urine 7.5 (5.0-8.0); Protein,Urine 1+ (Negative); RBC,Urine 2 /hpf (0-5); Specific Gravity,Urine 1.014 (1.001-1.035); Squamous Epithelial Cell,Urine <1 /hpf (0-4); Urobilinogen,Urine <2.0 mg/dL (<2.0); WBC,Urine 1 /hpf (0-5)
[2023-10-29 20:22] LABS: Glucose,Whole Blood 41 mg/dL (70-110)
[2023-10-29 20:22] LABS: Glucose,Whole Blood 39 mg/dL (70-110)
[2023-10-29 20:42] LABS: Glucose,Whole Blood 193 mg/dL (70-110)
[2023-10-29] MEDS ORDERED: METOPROLOL TARTRATE 50 MG TAB PO SCH (21:00)
[2023-10-29] MEDS ORDERED: LISINOPRIL-HCTZ 20-12.5 MG 1 EACH TAB PO SCH (21:00)
[2023-10-29] MEDS: LEVOTHYROXINE 50 MCG TAB PO SCH (21:26)
[2023-10-29 21:45] LABS: Glucose,Whole Blood 170 mg/dL (70-110)
[2023-10-29] MEDS ORDERED: HALOPERIDOL LACTATE 5 MG/ML 1 ML VIAL IM PRN (22:08)
[2023-10-29] MEDS: HALOPERIDOL LACTATE 5 MG/ML 1 ML VIAL IM STA (22:14)
--- NOTE | 2023-10-29 22:24 | HP ---
HISTORY AND PHYSICAL CHIEF COMPLAINT: Change in mental status. HISTORY OF PRESENT ILLNESS: An 88-year-old woman with a past medical history of multiple medical problems including progressive dementia, was admitted with change in mental status. The patient was apparently restless, screaming, and the patient came to [facility] and admitted for further evaluation and treatment. The patient had thick secretions noted. The patient is confused. The patient was moaning. Subsequently, the patient had a coffee-ground emesis and the patient is being closely monitored. Blood pressure is also elevated. There is no history of any fever, rigors, or chills. The patient had mild hypoglycemia on admission also. PAST MEDICAL HISTORY: Reviewed include COPD, CVA, TIA, diabetes mellitus type 2. Rest of the history and rest of the chart is also reviewed. HOME MEDICATIONS: Reviewed include insulin. Dose and rest of medications noted. ALLERGIES: Reviewed include aspirin. FAMILY HISTORY: Could not be taken because of the patient's change in mental status. SOCIAL HISTORY: Could not be taken because of the patient's change in mental status. REVIEW OF SYSTEMS: Could not be taken because of the patient's change in mental status. PHYSICAL EXAMINATION: VITAL SIGNS: Pulse 63, blood pressure 123/84, respirations 16. HEENT: Conjunctivae normal. NECK: No JVD. CARDIOVASCULAR: S1, S2. RESPIRATIONS: Breath sounds diminished at the bases. A few scattered rhonchi. ABDOMEN: Soft, nontender. LEGS: No edema. No swelling. NERVOUS SYSTEM: Diffusely weak. LABORATORY DATA: Glucose 39, rest of the labs are noted. ASSESSMENT: 1. Change in mental status, possibly multifactorial metabolic encephalopathy. 2. Hypoglycemia, present on admission. 3. Coffee-grounds emesis and possible upper gastrointestinal bleeding. 4. Chronic obstructive pulmonary disease. 5. Coronary artery disease. 6. Diabetes mellitus, type 2. 7. Hypertension. 8. Hyperlipidemia. 9. Multiple complex medical issues. 10.History of coronary artery disease, coronary artery bypass grafting. RECOMMENDATIONS AND DISCUSSION: This is an 88-year-old woman, who presented with multiple complex medical issues, we will monitor the patient closely. Continue the current medications. I would recommend initiate Protonix and keep the patient n.p.o. for now and continue with surgical evaluation for possible endoscopes. Otherwise, the patient also has change in mental status, exact etiology is unknown and this could be multifactorial. Obtain neurology evaluation and complete neurovascular workup also. We will hold insulin now. I will start IV fluids, D5 water and continue to monitor. If sugars are going up, I recommend changing the fluid to 0.9. Monitor lytes closely. The patient also had hypomagnesemia. It will be replaced and repeated. Otherwise, resume the home medications and we will also obtain Pulmonary consultation. Overall prognosis extremely guarded. See orders for further details. Further recommendations to follow. MMODL / IJN: [id number] /
[2023-10-29 23:49] LABS: Glucose,Whole Blood 65 mg/dL (70-110)
[2023-10-30 00:06] LABS: Glucose,Whole Blood 174 mg/dL (70-110)
[2023-10-30 01:49] LABS: Glucose,Whole Blood 84 mg/dL (70-110)
[2023-10-30 02:55] LABS: Glucose,Whole Blood 147 mg/dL (70-110)
--- NOTE | 2023-10-30 04:33 | P.CNPUL ---
History of Present Illness Consult date: 10/30/23 Requesting physician: Cheo Ochoa Reason for consult: COPD Chief complaint: Mental status History of present illness: Patient is a 88-year-old white female with a complex past medical history sig nificant for coronary artery disease with previous CABG, CVA/TIA, hyperlipidemia, hypertension, hypothyroidism, diabetes mellitus type 2, diabetic neuropathy, left AKA COPD, among other things. Patient is currently confused and unable to volunteer any information. After reviewing the ER documentation, she presented early yesterday morning, with a chief concern of worsening confusion. She is reportedly living with her daughter, who was noted that her mentation has been worsening over the last month or so. She may have some baseline dementia. More recently, she has been screaming out at night. She seems to be fairly debilitated, her daughter has been feeding her and giving her medication. She is currently lying in bed, disheveled, screaming out no. She appears delirious. Occasionally oriented to self. She does not respond to open or close ended questioning appropriately. Brain CT taken on admission did not show any acute intracranial process. There was a remote ischemic injury of the left occipital lobe with encephalomalacia and gliosis as well as remote ischemic injury of the right cerebellum. No hemorrhage. Neurology has evaluated this patient. We were consulted for management of the patient's COPD. Patient has remained on room air. SpO2 97%. Not in any respiratory distress. Overall, COPD does not appear active. Chest x-ray does not show any acute cardiopulmonar y process. No focal infiltrates or evidence of pneumonia. There are postsurgical CABG changes as well as a loop recorder. CBC unremarkable. No leukocytosis. CMP also unremarkable. LFTs not elevated. Glucose was noted to be severely low on multiple occasions. She was started on a [id number] saline at 50 MLS per hour. She was also empirically started on Rocephin. Urinalysis not concerning for UTI. Procalcitonin low at 0.06. TSH 4.14. Unclear what is causing the patient's worsening mentation at this point. She has been started on Seroquel at bedtime. She also has as needed Haldol for increased agitation/anxiety. She did reportedly have 1 isolated coffee-ground emesis. No reported adalberto bloody bowel movements or melena. General surgery was also asked to see this patient. Hemoglobin has remained stable. Blood pressure now normotensive. No need for ICU transfer at this time. Hemodynamically stable. Review of Systems ROS unobtainable: due to mental status Past Medical History Past Medical History: Coronary Artery Disease (CAD), Chest Pain / Angina, COPD, CVA/TIA, Diabetes Mellitus, Eye Disorder, GERD/Reflux, Hyperlipidemia, Hypertension, Osteoarthritis (OA), Syncope, Thyroid Disorder Additional Past Medical History / Comment(s): NIDDM type II, neuropathy bilater al hands, 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, dysphagia,esophageal strictures with dilation, hiatal hernia, L eye diabetic retinopathy/R eye blindness, bilateral TANACROSS, UTIS/urinary leakage, past bilateral feet sores/osteomylitis, generalized pain, bilateral carpal tunnel syndrome, vertigo, hypothyroid, anemia History of Any Multi-Drug Resistant Organisms: MRSA Date of last positivie culture/infection: 10/05/22 MDRO Source:: Urine Past Surgical History: Bladder Surgery, Cholecystectomy, Coronary Bypass/CABG, Heart Catheterization, Hysterectomy Additional Past Surgical History / Comment(s): 2007 CABG 4 vessel, EGDs with dilations, colonoscopies, cataract removal, D&C, bladder suspension, PICC, loop recorder, toe amputation may 2021, left BKA Past Anesthesia/Blood Transfusion Reactions: Motion Sickness, Postoperative Nausea & Vomiting (PONV) Past Psychological History: No Psychological Hx Reported Smoking Status: Never smoker Past Alcohol Use History: None Reported Past Drug Use History: None Reported - Past Family History Father History Unknown: Yes Family Medical History: Liver Disease Additional Family Medical History / Comment(s): Father of cirrhosis. He was a drinker. Mother History Unknown: Yes Family Medical History: Unable to Obtain Additional Family Medical History / Comment(s): Pt states she does not know her mother's medical history, but knows she at the age of 62 yrs.. Son(s) Family Medical History: Unable to Obtain, Renal Disease Daughter(s) History Unknown: Yes Family Medical History: Cancer Medications and Allergies Home Medications Medication Instructions Recorded Confirmed Type Atorvastatin [Lipitor] 40 mg PO HS 12/02/20 10/29/23 History Cholecalciferol [Vitamin D3 (25 50 mcg PO DAILY 07/24/21 10/29/23 History Mcg = 1000 Iu)] Cranberry Fruit Extract [Cranberry] 500 mg PO DAILY 07/24/21 10/29/23 History Insulin Aspart [NovoLOG Flexpen] See Protocol SQ AC-TID PRN 12/16/21 10/29/23 History Clopidogrel Bisulfate [Clopidogrel] 75 mg PO DAILY 04/29/22 10/29/23 History Omeprazole [PriLOSEC] 20 mg PO DAILY 04/29/22 10/29/23 History Metoprolol Tartrate [Lopressor] 50 mg PO BID #0 10/11/22 10/29/23 Rx Levothyroxine Sodium [Synthroid] 50 mcg PO HS 04/27/23 10/29/23 History Nitroglycerin Sl Tabs [Nitrostat] 0.4 mg SUBLINGUAL Q5M PRN 04/27/23 10/29/23 History Propylene Glycol [Systane Complete] 1 drop BOTH EYES QID PRN 04/27/23 10/29/23 History Acetaminophen Tab [Tylenol] 500 mg PO Q6HR PRN tab 04/29/23 10/29/23 Rx Insulin Glargine,Hum.rec.anlog 20 units SQ BID 09/12/23 10/29/23 History [Lantus Solostar Pen] Lisinopril-Hctz 20-12.5 mg 1 tab PO BID #60 tab 09/15/23 10/29/23 Rx [Zestoretic 20-12.5] NIFEdipine XL [Procardia XL] 30 mg PO DAILY #0 09/15/23 10/29/23 Rx Pantoprazole [Protonix] 40 mg PO AC-BID #60 tab 09/15/23 10/29/23 Rx Allergies Allergy/AdvReac Type Severity Reaction Status Date / Time aspirin Allergy Rash/Hives Verified 10/29/23 09:54 fish derived Allergy Rash/Hives Verified 10/29/23 09:54 Iodinated Contrast Media Allergy Rash/Hives Verified 10/29/23 09:54 [Iodinated Contrast Media - IV Dye] Iodine and Iodide Containing Allergy Rash/Hives Verified 10/29/23 09:54 Produc shellfish derived [Shellfish] Allergy Rash/Hives Verified 10/29/23 09:54 sulfamethoxazole Allergy Itching Verified 10/29/23 09:54 [From Bactrim] trimethoprim [From Bactrim] Allergy Itching Verified 10/29/23 09:54 Physical Exam Vitals: Vital Signs Temp Pulse Pulse Resp BP BP Pulse Ox 10/30/23 01:05 58 L 18 10/29/23 23:25 98.0 F 58 L 18 112/63 97 10/29/23 20:00 97.9 F 72 18 115/69 98 10/29/23 16:19 89 16 169/81 96 10/29/23 15:24 77 16 198/71 97 10/29/23 15:21 99.4 F 78 16 186/75 98 10/29/23 15:05 77 16 221/91 97 10/29/23 13:36 87 195/79 10/29/23 13:02 86 10/29/23 12:52 88 98 10/29/23 12:51 99.0 F 90 16 199/107 97 10/29/23 07:02 98.3 F 63 16 153/84 96 10/29/23 06:28 97.9 F 68 16 140/57 99 10/29/23 04:25 66 19 140/58 93 L Intake and Output 10/29/23 10/29/23 10/30/23 14:59 22:59 06:59 Intake Total 100 Output Total 1220 840 Balance -1120 -840 Intake: Intake, IV Titration 100 Amount Magnesium Sulfate-D5w Pmx 100 1 gm In Dextrose/Water 1 100ml.bag @ 100 mls/hr IVPB Q1H PENDING SALE TO [facility] Rx#: [id number] Output: Urine 1220 840 Straight 610 420 Other: Voiding Method Diaper Diaper Incontinent Incontinent # Voids 1 0 # Bowel Movements 1 Weight 63.503 kg GENERAL EXAM: Restless and appears acutely delirious, 88-year-old white female, disheveled, rolling around the bed, occasionally screaming out HEAD: Normocephalic and atraumatic EYES: Normal reaction of pupils, equal size. NOSE: Clear with pink turbinates. THROAT: No erythema or exudates. NECK: No masses, no JVD. CHEST: No chest wall deformity. LUNGS: Equal air entry with no crackles, wheeze, rhonchi or dullness. On room air. No conversational dyspnea or accessory muscle use.. CVS: S1 and S2 normal with no audible murmur, regular rhythm. No extra heart niko nds ABDOMEN: No hepatosplenomegaly, active bowel sounds, no guarding or rigidity. SPINE: No scoliosis or deformity SKIN: No rashes CENTRAL NERVOUS SYSTEM: No focal deficits, tone is normal in all 4 extremities. EXTREMITIES: There is no peripheral edema, clubbing, or cyanosis. Peripheral pulses are intact. Left AKA Results - Laboratory Findings CBC and BMP: 10/29/23 12:05 10/29/23 02:15 PT/INR, D-dimer PT 11.3 sec (10.0-12.5) 10/29/23 02:15 INR 1.0 (<1.2) 10/29/23 02:15 Abnormal lab findings: Abnormal Labs 10/29/23 10/29/23 10/29/23 02:15 02:33 03:03 Lymphocytes # BUN 22 H Glucose 39 L* POC Glucose (mg/dL) 45 L Magnesium 1.3 L Urine Protein 2+ H Urine Glucose (UA) 2+ H Ur Squamous Epith Cells 6 H Amorphous Sediment Rare H Hyaline Casts 24 H Urine Mucus Rare H 10/29/23 10/29/23 10/29/23 03:06 04:28 12:05 Lymphocytes # 0.8 L BUN Glucose POC Glucose (mg/dL) 137 H 260 H Magnesium Urine Protein Urine Glucose (UA) Ur Squamous Epith Cells Amorphous Sediment Hyaline Casts Urine Mucus 10/29/23 10/29/23 10/29/23 16:35 16:36 16:48 Lymphocytes # BUN Glucose POC Glucose (mg/dL) 44 L 40 L 45 L Magnesium Urine Protein Urine Glucose (UA) Ur Squamous Epith Cells Amorphous Sediment Hyaline Casts Urine Mucus 10/29/23 10/29/23 10/29/23 16:58 17:09 20:19 Lymphocytes # BUN Glucose POC Glucose (mg/dL) 147 H 39 L Magnesium Urine Protein 1+ H Urine Glucose (UA) Ur Squamous Epith Cells Amorphous Sediment Hyaline Casts Urine Mucus Rare H 10/29/23 10/29/23 10/29/23 20:20 20:42 21:44 Lymphocytes # BUN Glucose POC Glucose (mg/dL) 41 L 193 H 170 H Magnesium Urine Protein Urine Glucose (UA) Ur Squamous Epith Cells Amorphous Sediment Hyaline Casts Urine Mucus 10/29/23 10/30/23 10/30/23 23:46 00:05 02:52 Lymphocytes # BUN Glucose POC Glucose (mg/dL) 65 L 174 H 147 H Magnesium Urine Protein Urine Glucose (UA) Ur Squamous Epith Cells Amorphous Sediment Hyaline Casts Urine Mucus - Diagnostic Findings Chest x-ray: image reviewed Assessment and Plan Assessment: Altered mental status, questionable baseline progressive dementia, rule out superimposed acute delirium/psychosis. Brain CT did not show any acute intracranial process. There was a remote ischemic injury of the left occipital lobe with encephalomalacia and gliosis as well as remote ischemic injury of the right cerebellum. No hemorrhage. Episodic hypoglycemia, treated per protocol, and now on a [id number] saline infusion Possible isolated episode of hematemesis, no further reported episodes, hemoglobin stable Hypertensive urgency, likely exacerbated because the patient was not taking her oral antihypertensives, improved. Possible history of COPD, stable and not in exacerbation History of CVA/TIA, with left-sided hemiparesis History of coronary artery disease status/post CABG in 2007 History of hyperlipidemia History of hypertension History of hypothyroidism History of diabetes mellitus type 2, complicated by diabetic neuropathy and diabetic retinopathy History of left AKA Morbid obesity, with a BMI of 42.7 kg/m Plan: Patient's medications, labs, chest x-ray reviewed On room air. COPD appears stable on my evaluation. Continue as needed DuoNebs Mental status changes being evaluated by neurology. Patient has been started on Seroquel at bedtime and as needed Haldol for acute psychosis/delirium Treat hypoglycemia per protocol Antibiotics were added previously and are essentially empiric. No evidence of pneumonia on CXR. Urinalysis not concerning for UTI. Procalcitonin level low at 0.06. General surgery was consulted for coffee-ground emesis. Abdomen does not appear acute. Hemoglobin appears stable. Blood pressure normotensive. No need for ICU transfer at this time. Dr. Celaya will follow-up with the patient in the morning, and will likely see as needed. Protonix added 40 mg IV push twice daily Patient is a DO NOT RESUSCITATE. Overall prognosis is guarded related to above-mentioned comorbidities. Patient may eventually need placement. I have personally seen and examined the patient, performed the documentation and the assessment and plan as written. Number of minutes spent on the visit:20 Time with Patient: Greater than 30
[2023-10-30 05:00] LABS: Glucose,Whole Blood 138 mg/dL (70-110)
[2023-10-30 06:31] LABS: Glucose,Whole Blood 92 mg/dL (70-110)
[2023-10-30 07:31] LABS: Glucose,Whole Blood 89 mg/dL (70-110)
[2023-10-30 09:53] LABS: Glucose,Whole Blood 121 mg/dL (70-110)
[2023-10-30 11:16] LABS: African American GFR (CKD) 77 (>60 ml/min/1.73 sqM); Anion Gap 9 mmol/L; Blood Urea Nitrogen 14 mg/dL (7-17); Calcium 8.3 mg/dL (8.4-10.2); Carbon Dioxide 18 mmol/L (22-30); Chloride 111 mmol/L (98-107); Glucose 79 mg/dL (74-99); Magnesium 2.3 mg/dL (1.6-2.3); Non-African American GFR(CKD) 67 (>60 ml/min/1.73 sqM); Potassium 3.6 mmol/L (3.5-5.1); Sodium 138 mmol/L (137-145)
[2023-10-30 11:43] LABS: Glucose,Whole Blood 93 mg/dL (70-110)
[2023-10-30 13:25] LABS: Basophils % (A) 0 %; Eosinophils # (A) 0.1 k/uL (0-0.7); Eosinophils % (A) 1 %; HCT 34.1 % (34.0-46.0); HGB 10.9 gm/dL (11.4-16.0); Lymphocytes # (A) 0.6 k/uL (1.0-4.8); Lymphocytes % (A) 6 %; MCH 28.9 pg (25.0-35.0); MCHC 32.1 g/dL (31.0-37.0); MCV 90.1 fL (80.0-100.0); Mean Platelet Volume 8.5; Monocytes # (A) 0.6 k/uL (0-1.0); Monocytes % (A) 5 %; Neutrophils % (A) 88 %; Platelet Count 193 k/uL (150-450); RBC 3.78 m/uL (3.80-5.40); WBC 11.4 k/uL (3.8-10.6)
--- NOTE | 2023-10-30 13:59 | P.PN ---
Subjective Progress Note Date: 10/30/23 I am seeing the patient for the first time during this admission. Please refer to Dr. Elias's note for further details. It seems patient has underlying dementia and is screaming at night. Upon seeing the patient she had a sitter at bedside and was notified she was very hard of hearing and patient was sleeping. Patient is unable to provide any history. Objective - Vital Signs Vital signs: Vital Signs Temp 98.2 F 10/30/23 10:05 Pulse 72 10/30/23 10:05 Resp 16 10/30/23 10:05 BP 118/57 10/30/23 10:05 Pulse Ox 98 10/30/23 10:05 FiO2 Intake & Output 10/29/23 10/30/23 10/30/23 18:59 06:59 18:59 Intake Total 100 Output Total 1220 840 Balance -1220 -740 Weight 63.503 kg Intake: Intake, IV Titration 100 Amount Magnesium Sulfate-D5w Pmx 100 1 gm In Dextrose/Water 1 100ml.bag @ 100 mls/hr IVPB Q1H [facility] Rx#: [id number] Output: Urine 1220 840 Straight 610 420 Other: Voiding Method Diaper Incontinent # Voids 1 0 1 # Bowel Movements 1 - Exam General: Lying in bed and does not appear in acute distress. Neuro: Very limited. Was sleeping but woke-up. Is very hard of hearing. She correctly stated her name. Otherwise not following commands or verbalizing. No facial weakness. Motor and rest of neurological exam is hard to assess. - Labs CBC & Chem 7: 10/30/23 12:47 10/30/23 09:59 Labs: Abnormal Lab Results - Last 24 Hours (Table) 10/29/23 10/29/23 10/29/23 Range/Units 16:35 16:36 16:48 WBC (3.8-10.6) k/uL RBC (3.80-5.40) m/uL Hgb (11.4-16.0) gm/dL Neutrophils # (1.3-7.7) k/uL Lymphocytes # (1.0-4.8) k/uL Chloride (98-107) mmol/L Carbon Dioxide (22-30) mmol/L POC Glucose (mg/dL) 44 L 40 L 45 L (70-110) mg/dL Calcium (8.4-10.2) mg/dL Urine Protein (Negative) Urine Mucus (None) /hpf 10/29/23 10/29/23 10/29/23 Range/Units 16:58 17:09 20:19 WBC (3.8-10.6) k/uL RBC (3.80-5.40) m/uL Hgb (11.4-16.0) gm/dL Neutrophils # (1.3-7.7) k/uL Lymphocytes # (1.0-4.8) k/uL Chloride (98-107) mmol/L Carbon Dioxide (22-30) mmol/L POC Glucose (mg/dL) 147 H 39 L (70-110) mg/dL Calcium (8.4-10.2) mg/dL Urine Protein 1+ H (Negative) Urine Mucus Rare H (None) /hpf 10/29/23 10/29/23 10/29/23 Range/Units 20:20 20:42 21:44 WBC (3.8-10.6) k/uL RBC (3.80-5.40) m/uL Hgb (11.4-16.0) gm/dL Neutrophils # (1.3-7.7) k/uL Lymphocytes # (1.0-4.8) k/uL Chloride (98-107) mmol/L Carbon Dioxide (22-30) mmol/L POC Glucose (mg/dL) 41 L 193 H 170 H (70-110) mg/dL Calcium (8.4-10.2) mg/dL Urine Protein (Negative) Urine Mucus (None) /hpf 10/29/23 10/30/23 10/30/23 Range/Units 23:46 00:05 02:52 WBC (3.8-10.6) k/uL RBC (3.80-5.40) m/uL Hgb (11.4-16.0) gm/dL Neutrophils # (1.3-7.7) k/uL Lymphocytes # (1.0-4.8) k/uL Chloride (98-107) mmol/L Carbon Dioxide (22-30) mmol/L POC Glucose (mg/dL) 65 L 174 H 147 H (70-110) mg/dL Calcium (8.4-10.2) mg/dL Urine Protein (Negative) Urine Mucus (None) /hpf 10/30/23 10/30/23 10/30/23 Range/Units 04:57 09:51 09:59 WBC (3.8-10.6) k/uL RBC (3.80-5.40) m/uL Hgb (11.4-16.0) gm/dL Neutrophils # (1.3-7.7) k/uL Lymphocytes # (1.0-4.8) k/uL Chloride 111 H (98-107) mmol/L Carbon Dioxide 18 L (22-30) mmol/L POC Glucose (mg/dL) 138 H 121 H (70-110) mg/dL Calcium 8.3 L (8.4-10.2) mg/dL Urine Protein (Negative) Urine Mucus (None) /hpf 10/30/23 Range/Units 12:47 WBC 11.4 H (3.8-10.6) k/uL RBC 3.78 L (3.80-5.40) m/uL Hgb 10.9 L (11.4-16.0) gm/dL Neutrophils # 10.0 H (1.3-7.7) k/uL Lymphocytes # 0.6 L (1.0-4.8) k/uL Chloride (98-107) mmol/L Carbon Dioxide (22-30) mmol/L POC Glucose (mg/dL) (70-110) mg/dL Calcium (8.4-10.2) mg/dL Urine Protein (Negative) Urine Mucus (None) /hpf Assessment and Plan Assessment: 1. Patient is an 88-year-old female with progressive dementia which has recently become worse with screaming episodes. CT head is negative for acute process. Has hypoglycemia on presentation which can exacerbate her symptoms 2. Hypoglycemia (as low as 39 and had multiple in 30-40's)--resolved 3. Reported history of strokes 4. Hx of DM 5. Hx of CAD 6. Neuropathy 7. hx of right eye blindness Plan: I ordered routine EEG: Preliminary is negative for seizure CXR, u/a are negative for acute process. TSH and B12 are within normal limits Avoid hypoglycemic events On seroquel 25mg qhs and is on Haldol PRN. Can go up on Seroquel 50mg qhs if needed. Will defer dementia management as outpatient. Recommend to follow-up with neurologist as outpatient within 1-2 weeks. Will defer rest of medical management to primary team and other specialist. The plan is discussed with her nurse. There is no further neurological work-up. Will sign off. Please reconsult if needed. Time with Patient: Less than 30
--- NOTE | 2023-10-30 16:39 | P.GSCN ---
History of Present Illness Consult date: 10/30/23 History of present illness: CHIEF COMPLAINT: Altered mental status HISTORY OF PRESENT ILLNESS: This is a 88-year-old female who presented to the hospital with altered mental status. She has a presumed history of dementia. Patient had been having episodes of screaming. Patient evaluated by neurology. And were concern for psychosis, metabolic encephalopathy. Medications have been adjusted. Patient had an episode of vomiting in the ER. No abdominal pain reported. Patient is confused. Does have a prior history of stroke. Also has had prior history of EGDs with dilation. Surgical service consulted in regards to episode of vomiting and possible needing an EGD. Patient has a bedside sitter. 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 REVIEW OF SYSTEMS: CONSTITUTIONAL: Denies fever or chills. HEENT: Denies blurred vision, vision changes, or eye pain. Denies hemoptysis CARDIOVASCULAR: Denies chest pain or pressure. RESPIRATORY: No shortness of breath. GASTROINTESTINAL: See HPI for pertinent findings HEMATOLOGIC: Denies bleeding disorders. GENITOURINARY: Denies any blood in urine or increased urinary frequency. SKIN: Denies pruitis. Denies rash. PHYSICAL EXAM: VITAL SIGNS: Reviewed GENERAL: Well-developed in no acute distress. HEENT: No sclera icterus. Extraocular movements grossly intact. Moist buccal mucosa. Head is atraumatic, normocephalic. No nasal drainage. ABDOMEN: Soft. Nondistended. Nontender NEUROLOGIC: Confused. LABORATORY DATA: WBC 11.4 Hgb 10.9 platelets 193 Sodium is 138 potassium 3.6 creatinine 0.80 Magnesium 2.3 IMAGING: Chest x-ray no acute process ASSESSMENT: 1. Vomiting. Prior history of EGD with dilation 2. Altered mental status PLAN: -Patient scheduled for EGD with possible dilation tomorrow with Dr. Jefferson Pinedapfausto after midnight Physician Wax Blender note has been reviewed by physician. Signing provider agrees with the documented findings, assessment, and plan of care. Past Medical History Past Medical History: Coronary Artery Disease (CAD), Chest Pain / Angina, COPD, CVA/TIA, Diabetes Mellitus, Eye Disorder, GERD/Reflux, Hyperlipidemia, Hypertension, Osteoarthritis (OA), Syncope, Thyroid Disorder Additional Past Medical History / Comment(s): NIDDM type II, neuropathy bilate ral hands, 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, dysphagia,esophageal strictures with dilation, hiatal hernia, L eye diabetic retinopathy/R eye blindness, bilateral MILLE LACS, UTIS/urinary leakage, past bilateral feet sores/osteomylitis, generalized pain, bilateral carpal tunnel syndrome, vertigo, hypothyroid, anemia History of Any Multi-Drug Resistant Organisms: MRSA Year Discovered:: 10/05/22 MDRO Source:: Urine Past Surgical History: Bladder Surgery, Cholecystectomy, Coronary Bypass/CABG, Heart Catheterization, Hysterectomy Additional Past Surgical History / Comment(s): 2007 CABG 4 vessel, EGDs with dilations, colonoscopies, cataract removal, D&C, bladder suspension, PICC, loop recorder, toe amputation may 2021, left BKA Past Anesthesia/Blood Transfusion Reactions: Motion Sickness, Postoperative Nausea & Vomiting (PONV) Past Psychological History: No Psychological Hx Reported Smoking Status: Never smoker Past Alcohol Use History: None Reported Past Drug Use History: None Reported - Past Family History Father History Unknown: Yes Family Medical History: Liver Disease Additional Family Medical History / Comment(s): Father of cirrhosis. He was a drinker. Mother History Unknown: Yes Family Medical History: Unable to Obtain Additional Family Medical History / Comment(s): Pt states she does not know her mother's medical history, but knows she at the age of 62 yrs.. Son(s) Family Medical History: Unable to Obtain, Renal Disease Daughter(s) History Unknown: Yes Family Medical History: Cancer Medications and Allergies Home Medications Medication Instructions Recorded Confirmed Type Atorvastatin [Lipitor] 40 mg PO HS 12/02/20 10/29/23 History Cholecalciferol [Vitamin D3 (25 50 mcg PO DAILY 07/24/21 10/29/23 History Mcg = 1000 Iu)] Cranberry Fruit Extract [Cranberry] 500 mg PO DAILY 07/24/21 10/29/23 History Insulin Aspart [NovoLOG Flexpen] See Protocol SQ AC-TID PRN 12/16/21 10/29/23 History Clopidogrel Bisulfate [Clopidogrel] 75 mg PO DAILY 04/29/22 10/29/23 History Omeprazole [PriLOSEC] 20 mg PO DAILY 04/29/22 10/29/23 History Metoprolol Tartrate [Lopressor] 50 mg PO BID #0 10/11/22 10/29/23 Rx Levothyroxine Sodium [Synthroid] 50 mcg PO HS 04/27/23 10/29/23 History Nitroglycerin Sl Tabs [Nitrostat] 0.4 mg SUBLINGUAL Q5M PRN 04/27/23 10/29/23 History Propylene Glycol [Systane Complete] 1 drop BOTH EYES QID PRN 04/27/23 10/29/23 History Acetaminophen Tab [Tylenol] 500 mg PO Q6HR PRN tab 04/29/23 10/29/23 Rx Insulin Glargine,Hum.rec.anlog 20 units SQ BID 09/12/23 10/29/23 History [Lantus Solostar Pen] Lisinopril-Hctz 20-12.5 mg 1 tab PO BID #60 tab 09/15/23 10/29/23 Rx [Zestoretic 20-12.5] NIFEdipine XL [Procardia XL] 30 mg PO DAILY #0 09/15/23 10/29/23 Rx Pantoprazole [Protonix] 40 mg PO AC-BID #60 tab 09/15/23 10/29/23 Rx Allergies Allergy/AdvReac Type Severity Reaction Status Date / Time aspirin Allergy Rash/Hives Verified 10/29/23 09:54 fish derived Allergy Rash/Hives Verified 10/29/23 09:54 Iodinated Contrast Media Allergy Rash/Hives Verified 10/29/23 09:54 [Iodinated Contrast Media - IV Dye] Iodine and Iodide Containing Allergy Rash/Hives Verified 10/29/23 09:54 Produc shellfish derived [Shellfish] Allergy Rash/Hives Verified 10/29/23 09:54 sulfamethoxazole Allergy Itching Verified 10/29/23 09:54 [From Bactrim] trimethoprim [From Bactrim] Allergy Itching Verified 10/29/23 09:54 Surgical - Exam Vital Signs Temp Pulse Resp BP Pulse Ox 97.3 F L 77 12 168/81 97 10/29/23 02:31 10/29/23 02:31 10/29/23 02:31 10/29/23 02:31 10/29/23 02:31 Results - Labs 10/30/23 12:47 10/30/23 09:59 Abnormal Lab Results - Last 24 Hours (Table) 10/29/23 10/29/23 10/29/23 Range/Units 16:35 16:36 16:48 WBC (3.8-10.6) k/uL RBC (3.80-5.40) m/uL Hgb (11.4-16.0) gm/dL Neutrophils # (1.3-7.7) k/uL Lymphocytes # (1.0-4.8) k/uL Chloride (98-107) mmol/L Carbon Dioxide (22-30) mmol/L POC Glucose (mg/dL) 44 L 40 L 45 L (70-110) mg/dL Hemoglobin A1c (<=6.0) % Calcium (8.4-10.2) mg/dL Urine Protein (Negative) Urine Mucus (None) /hpf 10/29/23 10/29/23 10/29/23 Range/Units 16:58 17:09 20:19 WBC (3.8-10.6) k/uL RBC (3.80-5.40) m/uL Hgb (11.4-16.0) gm/dL Neutrophils # (1.3-7.7) k/uL Lymphocytes # (1.0-4.8) k/uL Chloride (98-107) mmol/L Carbon Dioxide (22-30) mmol/L POC Glucose (mg/dL) 147 H 39 L (70-110) mg/dL Hemoglobin A1c (<=6.0) % Calcium (8.4-10.2) mg/dL Urine Protein 1+ H (Negative) Urine Mucus Rare H (None) /hpf 10/29/23 10/29/23 10/29/23 Range/Units 20:20 20:42 21:44 WBC (3.8-10.6) k/uL RBC (3.80-5.40) m/uL Hgb (11.4-16.0) gm/dL Neutrophils # (1.3-7.7) k/uL Lymphocytes # (1.0-4.8) k/uL Chloride (98-107) mmol/L Carbon Dioxide (22-30) mmol/L POC Glucose (mg/dL) 41 L 193 H 170 H (70-110) mg/dL Hemoglobin A1c (<=6.0) % Calcium (8.4-10.2) mg/dL Urine Protein (Negative) Urine Mucus (None) /hpf 10/29/23 10/30/23 10/30/23 Range/Units 23:46 00:05 02:52 WBC (3.8-10.6) k/uL RBC (3.80-5.40) m/uL Hgb (11.4-16.0) gm/dL Neutrophils # (1.3-7.7) k/uL Lymphocytes # (1.0-4.8) k/uL Chloride (98-107) mmol/L Carbon Dioxide (22-30) mmol/L POC Glucose (mg/dL) 65 L 174 H 147 H (70-110) mg/dL Hemoglobin A1c (<=6.0) % Calcium (8.4-10.2) mg/dL Urine Protein (Negative) Urine Mucus (None) /hpf 10/30/23 10/30/23 10/30/23 Range/Units 04:57 09:51 09:59 WBC (3.8-10.6) k/uL RBC (3.80-5.40) m/uL Hgb (11.4-16.0) gm/dL Neutrophils # (1.3-7.7) k/uL Lymphocytes # (1.0-4.8) k/uL Chloride (98-107) mmol/L Carbon Dioxide (22-30) mmol/L POC Glucose (mg/dL) 138 H 121 H (70-110) mg/dL Hemoglobin A1c 8.2 H (<=6.0) % Calcium (8.4-10.2) mg/dL Urine Protein (Negative) Urine Mucus (None) /hpf 10/30/23 10/30/23 Range/Units 09:59 12:47 WBC 11.4 H (3.8-10.6) k/uL RBC 3.78 L (3.80-5.40) m/uL Hgb 10.9 L (11.4-16.0) gm/dL Neutrophils # 10.0 H (1.3-7.7) k/uL Lymphocytes # 0.6 L (1.0-4.8) k/uL Chloride 111 H (98-107) mmol/L Carbon Dioxide 18 L (22-30) mmol/L POC Glucose (mg/dL) (70-110) mg/dL Hemoglobin A1c (<=6.0) % Calcium 8.3 L (8.4-10.2) mg/dL Urine Protein (Negative) Urine Mucus (None) /hpf Diabetes panel 10/30/23 10/30/23 Range/Units 09:59 09:59 Sodium 138 (137-145) mmol/L Potassium 3.6 (3.5-5.1) mmol/L Chloride 111 H (98-107) mmol/L Carbon Dioxide 18 L (22-30) mmol/L BUN 14 (7-17) mg/dL Creatinine 0.80 (0.52-1.04) mg/dL Glucose 79 (74-99) mg/dL Hemoglobin A1c 8.2 H (<=6.0) % Calcium 8.3 L (8.4-10.2) mg/dL Calcium panel 10/30/23 Range/Units 09:59 Calcium 8.3 L (8.4-10.2) mg/dL Pituitary panel 10/30/23 Range/Units 09:59 Sodium 138 (137-145) mmol/L Potassium 3.6 (3.5-5.1) mmol/L Chloride 111 H (98-107) mmol/L Carbon Dioxide 18 L (22-30) mmol/L BUN 14 (7-17) mg/dL Creatinine 0.80 (0.52-1.04) mg/dL Glucose 79 (74-99) mg/dL Calcium 8.3 L (8.4-10.2) mg/dL Adrenal panel 10/30/23 Range/Units 09:59 Sodium 138 (137-145) mmol/L Potassium 3.6 (3.5-5.1) mmol/L Chloride 111 H (98-107) mmol/L Carbon Dioxide 18 L (22-30) mmol/L BUN 14 (7-17) mg/dL Creatinine 0.80 (0.52-1.04) mg/dL Glucose 79 (74-99) mg/dL Calcium 8.3 L (8.4-10.2) mg/dL
[2023-10-30 16:49] LABS: Glucose,Whole Blood 122 mg/dL (70-110)
--- NOTE | 2023-10-30 17:52 | P.PN ---
Progress Note - Text Progress Note Date: 10/30/23 88-year-old patient who follows with Dr. Ramirez. 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 . Left AKA. October 30, 2023: Patient presents with altered mental status. Patient has been screaming at night. Was sent to the ER because he is screaming more than usual at night. As per the daughter to the EMS sometimes she screams for a long time. With no other complaints. A team was called last night patient was moaning and groaning. There was some coffee-ground emesis. CT brain was unremarkable. UA was unremarkable. Neurology was consulted. Today when I talk to the patient. Able to answer simple questions. Though she is significantly hard of hearing. Active Medications Acetaminophen (Acetaminophen Tab 325 Mg Tab) 650 mg PO Q6HR PRN PRN Reason: Mild Pain or Fever > 100.5 Albuterol/Ipratropium (Ipratropium-Albuterol 3 Ml Neb) 3 ml INHALATION RT-TID [facility] Last Admin: 10/30/23 12:23 Dose: Not Given Albuterol/Ipratropium (Ipratropium-Albuterol 3 Ml Neb) 3 ml INHALATION RT-TID PRN PRN Reason: Shortness Of Breath Or Wheezing Artificial Tears (Artificial Tears-Hypromellose Drops 15 Ml Btl) 1 drops BOTH EYES QID PRN PRN Reason: DRY EYES Dextrose/Water (Dextrose 50% Syringe 50 Ml) 25 ml IVP PER PROTOCOL PRN; Protocol PRN Reason: Hypoglycemia Last Admin: 10/29/23 23:48 Dose: 25 ml Dextrose/Water (Dextrose 50% Syringe 50 Ml) 50 ml IVP PER PROTOCOL PRN; Protocol PRN Reason: Hypoglycemia Lisinopril/HCTZ (Lisinopril-Hctz 20-12.5 Mg 1 Each Tab) 1 each PO BID [facility] Last Admin: 10/30/23 16:07 Dose: Not Given Haloperidol Lactate (Haloperidol Lactate 5 Mg/Ml 1 Ml Vial) 2 mg IM Q4HR PRN PRN Reason: Agitation or Acute Psychosis Heparin Sodium (Porcine) (Heparin Sodium,Porcine 5,000 Unit/Ml 1 Ml Vial) 5,000 unit SQ Q12HR [facility] Last Admin: 10/29/23 21:24 Dose: 5,000 unit Hydralazine HCl (Hydralazine Hcl 20 Mg/Ml 1 Ml Vial) 10 mg IVP Q4HR PRN PRN Reason: Blood Pressure - High Last Admin: 10/29/23 15:08 Dose: 10 mg Dextrose/Sodium Chloride (Dextrose 5%-Ns Iv Soln) 1,000 mls @ 50 mls/hr IV .Q20H [facility] Last Admin: 10/29/23 12:55 Dose: 50 mls/hr Ceftriaxone Sodium 1 gm/ (Sodium Chloride) 50 mls @ 100 mls/hr IVPB Q24HR [facility]; Protocol Last Admin: 10/30/23 10:05 Dose: 100 mls/hr Insulin Aspart (Insulin Aspart (Novolog) 100 Unit/Ml Vial) 0 unit SQ ACHS [facility]; Protocol Last Admin: 10/30/23 16:08 Dose: Not Given Levothyroxine Sodium (Levothyroxine 50 Mcg Tab) 50 mcg PO [facility] Last Admin: 10/29/23 21:26 Dose: Not Given Metoprolol Tartrate (Metoprolol Tartrate 50 Mg Tab) 50 mg PO BID [facility] Last Admin: 10/30/23 16:07 Dose: Not Given Miscellaneous Information (Magnesium Replacement Protocol 1 Each Misc) 1 each MISCELLANE DAILY PRN; Protocol PRN Reason: Per Protocol Naloxone HCl (Naloxone 0.4 Mg/Ml 1 Ml Vial) 0.2 mg IV Q2M PRN PRN Reason: Opioid Reversal Ondansetron HCl (Ondansetron 4 Mg/2 Ml Vial) 4 mg IVP Q6H PRN PRN Reason: Nausea And Vomiting Pantoprazole Sodium (Pantoprazole 40 Mg/10 Ml Vial) 40 mg IVP BID [facility] Last Admin: 10/30/23 10:04 Dose: 40 mg Quetiapine Fumarate (Quetiapine 25 Mg Tab) 25 mg PO [facility] Last Admin: 10/29/23 17:46 Dose: 25 mg Past medical history to include: CAD, left-sided weakness from prior stroke, diabetes, blind in the right eye, hypertension, hyperlipidemia, hypothyroid, chronic pain, osteoarthritis, peripheral neuropathy, esophageal stricture, urinary incontinence, uses a wa lker, PAD. Left above-knee amputation. Social history: Does not smoke or drink alcohol. Daughter lives with her.. assist with ADLs. Physical examination: VITAL SIGNS: 98.2, 72, 16, 1 one 8 x 57, 98% room air GENERAL: Comfortable, bit anxious HEENT: Hard of hearing EYES: Blind in the right eye. NECK: JVD not raised; masses not palpable. HEART: First and second heart sounds are normal; no edema. LUNGS: Respiratory rate normal; decreased breath sounds ABDOMEN: Soft, nontender, liver spleen not palpable, no masses palpable. PSYCH: Able to answer simple questions MUSCULOSKELETAL:No Clubbing/cyanosis;muscles-grossly intact. Left above-knee amputation. Limited range of motion right shoulder Chronic ischemic changes of the toes NEUROLOGICAL: Cranial nerves grossly intact; Chronic left-sided weakness. Blind in the right eye. INVESTIGATIONS, reviewed in the clinical context October 30, 2023: White count 11.4 hemoglobin 10.9 platelets 193 potassium 3.6 BUN [address] brain: Unremarkable Chest x-ray: Loop recorder. Status post CABG changes Assessment and plan: -Acute coffee-ground emesis Hold off subcu heparin. PPI. GI service not available in the hospital. Dr Paulino consulted. Plan for EGD tomorrow. -Essential hypertension, better Lopressor 50 mg twice a day. Zestoretic 20/12.5 twice daily-. -chronic right shoulder dysfunction -Coronary artery disease, prior history of bypass 2008 Lopressor, Plavix-held -Diabetes mellitus type 2 , chronically on insulin follow Accu-Cheks -Blind in the right eye, chronic -Left above-knee amputation -Hyperlipidemia Lipitor 40 mg daily at bedtime -Hypothyroidism Synthroid 50 g a day -Primary osteoarthritis Continue pain medications -Cognitive impairment. Probable dementia. Contribution from poor eyesight. Hard of hearing. Neurology following -Diabetic peripheral neuropathy -Chronic urinary incontinence Depend -DO NOT RESUSCITATE N.p.o. after midnight for EGD. PPI.
[2023-10-30] MEDS: PANTOPRAZOLE 40 MG TABLET PO SCH (18:24)
[2023-10-30 19:39] LABS: Glucose,Whole Blood 190 mg/dL (70-110)
[2023-10-30 21:41] LABS: Glucose,Whole Blood 239 mg/dL (70-110)
[2023-10-30 23:45] LABS: Glucose,Whole Blood 238 mg/dL (70-110)
--- NOTE | 2023-10-31 03:57 | EEG ---
ELECTROENCEPHALOGRAM REPORT DATE OF SERVICE: 10/30/2023 CLINICAL HISTORY: This is an 88-year-old woman with altered mental status. The video EEG is obtained to evaluate for seizure epileptiform activity. RELEVANT MEDICATION: Haldol and Seroquel. EEG TYPE: Routine 21 channel EEG is with video using the 10/20 electrode placement system. DESCRIPTION: Wakefulness and drowsiness are obtained. During awake state, the background consists of [id number] voltage of 8 hertz activity. There is no physiological stage 2 sleep architecture. There is no focal slowing. Interictal and ictal is none. ACTIVATION PROCEDURE: Photic stimulation did not evoke a posterior driving response. There is no abnormality during the photic stimulation. Hyperventilation is not performed. CLINICAL INTERPRETATION: This is a normal routine EEG. There is no focal slowing, epileptiform discharge, or seizure on the EEG. A normal routine EEG does not rule out any underlying epilepsy. Clinical correlation is recommended. HERNANDO / PATRICK: [id number] / MTDD
[2023-10-31 06:23] LABS: Glucose,Whole Blood 230 mg/dL (70-110)
[2023-10-31] MEDS ORDERED: LIDOCAINE 2% (PF) 20 MG/ML 5 ML VIAL ONE (10:46)
[2023-10-31] MEDS ORDERED: PROPOFOL 10 MG/ML 20 ML VIAL IV ONE (10:46)
[2023-10-31] MEDS: LACTATED RINGERS 1,000 ML IV ONE (10:55)
--- NOTE | 2023-10-31 11:02 | P.OP ---
Date of Procedure: 10/31/23 Preoperative Diagnosis: dysphagia, vomiting Postoperative Diagnosis: antral gastritis Hiatal hernia Mild esophagitis Procedure(s) Performed: EGD Anesthesia: MAC Surgeon: Kilo Paulino Pathology: other (antrum, esophagus) Condition: stable Disposition: PACU Description of Procedure: the patient's placed on the endoscopy table in the lateral position. She received IV sedation. The gastroscope placed oropharynx passed in the esophagus and into the stomach. Scope was placed through the pylorus. The first and second portion of the duodenum appeared normal. The scope was then brought back the antrum this appeared minimally inflamed. A biopsies performed. The scope was uretroflexed and the remainder of the stomach appeared normal. There was a moderate size hiatal hernia. The GE junction was at 38 cm. The distal esophagus appeared minimally inflamed a biopsies performed. The proximal es ophagus appeared normal. Scope withdrawn for patient.
[2023-10-31 11:15] LABS: Potassium 3.2 mmol/L (3.5-5.1)
[2023-10-31 11:16] LABS: African American GFR (CKD) 72 (>60 ml/min/1.73 sqM); Anion Gap 7 mmol/L; Blood Urea Nitrogen 13 mg/dL (7-17); Calcium 8.4 mg/dL (8.4-10.2); Carbon Dioxide 21 mmol/L (22-30); Chloride 109 mmol/L (98-107); Glucose 162 mg/dL (74-99); Non-African American GFR(CKD) 62 (>60 ml/min/1.73 sqM); Sodium 137 mmol/L (137-145)
[2023-10-31 11:33] LABS: Basophils % (A) 0 %; Eosinophils # (A) 0.1 k/uL (0-0.7); Eosinophils % (A) 0 %; HGB 10.7 gm/dL (11.4-16.0); Lymphocytes # (A) 0.8 k/uL (1.0-4.8); Lymphocytes % (A) 5 %; MCH 29.4 pg (25.0-35.0); MCHC 33.4 g/dL (31.0-37.0); Mean Platelet Volume 9.2; Monocytes # (A) 0.7 k/uL (0-1.0); Monocytes % (A) 5 %; Neutrophils # (A) 14.7 k/uL (1.3-7.7); Neutrophils % (A) 90 %; Platelet Count 197 k/uL (150-450); RBC 3.64 m/uL (3.80-5.40); WBC 16.4 k/uL (3.8-10.6)
--- NOTE | 2023-10-31 12:56 | P.PN ---
Subjective Progress Note Date: 10/31/23 Principal diagnosis: Mental status changes. Patient is a 88-year-old white female with a complex past medical history significant for coronary artery disease with previous CABG, CVA/TIA, hyperlipidemia, hypertension, hypothyroidism, diabetes mellitus type 2, diabetic neuropathy, left AKA COPD, among other things. Patient is currently confused and unable to volunteer any information. After reviewing the ER documentation, she presented early yesterday morning, with a chief concern of worsening confusion. She is reportedly living with her daughter, who was noted that her m entation has been worsening over the last month or so. She may have some baseline dementia. More recently, she has been screaming out at night. She seems to be fairly debilitated, her daughter has been feeding her and giving her medication. She is currently lying in bed, disheveled, screaming out no. She appears delirious. Occasionally oriented to self. She does not respond to open or close ended questioning appropriately. Brain CT taken on admission did not show any acute intracranial process. There was a remote ischemic injury of the left occipital lobe with encephalomalacia and gliosis as well as remote ischemic injury of the right cerebellum. No hemorrhage. Neurology has evaluated this patient. We were consulted for management of the patient's COPD. Patient has remained on room air. SpO2 97%. Not in any respiratory distress. Overall, COPD does not appear active. Chest x-ray does not show any acute cardiopulmonary process. No focal infiltrates or evidence of pneumonia. There are postsurgical CABG changes as well as a loop recorder. CBC unremarkable. No leukocytosis. CMP also unremarkable. LFTs not elevated. Glucose was noted to be severely low on multiple occasions. She was started on a [id number] saline at 50 MLS per hour. She was also empirically started on Rocephin. Urinalysis not concerning for UTI. Procalcitonin low at 0.06. TSH 4.14. Unclear what is causing the patient's worsening mentation at this point. She has been started on Seroquel at bedtime. She also has as needed Haldol for increased agitation/anxiety. She did reportedly have 1 isolated coffee-ground emesis. No reported adalberto bloody bowel movements or melena. General surgery was also asked to see this patient. Hemoglobin has remained stable. Blood pressure now normotensive. No need for ICU transfer at this time. Hemodynamically stable. Progress note dated October 31, 2023. The patient is seen today in room 373. The patient is on room air. No IV fluids. The patient is very confused, and no history can be obtained from the patient. She appears in no distress so, and is not having any respiratory issues. Current laboratory data includes a white count 16.4, hemoglobin 10.7, hematocrit 32, and a platelet count of 197,000. Sodium 137, potassium 3.2, chlorides 109, CO2 21, BUN 13, creatinine 0.85. Glucose is 162. Calcium 8.4. The patient underwent an EGD today. Objective - Vital Signs Vital signs: Vital Signs Temp 97.7 F 10/31/23 08:25 Pulse 75 10/31/23 08:25 Resp 17 10/31/23 08:25 BP 136/65 10/31/23 08:25 Pulse Ox 97 10/31/23 08:25 FiO2 Intake & Output 10/30/23 10/31/23 10/31/23 18:59 06:59 18:59 Intake Total 100 Output Total 200 Balance -200 100 Intake: IV 100 Output: Urine 200 Other: Voiding Method Diaper Diaper Incontinent Incontinent # Voids 1 1 1 # Bowel Movements 1 - Exam No acute distress, very confused. Currently on room air. HEENT examination is grossly unremarkable. Mucous membranes are moist. No oral lesions. Neck supple. Full range of motion. No adenopathy thyromegaly or neck vein distention. Cardiovascular examination reveals regular rhythm rate. S1-S2 normal. No S3 or S4. No discernible murmur noted. Heart rate 75 bpm. Lungs reveal mild scattered rhonchi. No wheezes or crackles. Breath sounds equal bilaterally. Resting room air saturation 97%. Abdomen soft bowel sounds are heard. No masses or tenderness. Extremities are intact. No cyanosis clubbing or edema. Skin is without rash or lesion. Neurologic examination is brief but nonfocal. - Labs CBC & Chem 7: 10/31/23 09:15 10/31/23 09:15 Labs: Abnormal Lab Results - Last 24 Hours (Table) 10/30/23 10/30/23 10/30/23 Range/Units 09:59 12:47 16:46 WBC 11.4 H (3.8-10.6) k/uL RBC 3.78 L (3.80-5.40) m/uL Hgb 10.9 L (11.4-16.0) gm/dL Hct (34.0-46.0) % Neutrophils # 10.0 H (1.3-7.7) k/uL Lymphocytes # 0.6 L (1.0-4.8) k/uL Potassium (3.5-5.1) mmol/L Chloride (98-107) mmol/L Carbon Dioxide (22-30) mmol/L Glucose (74-99) mg/dL POC Glucose (mg/dL) 122 H (70-110) mg/dL Hemoglobin A1c 8.2 H (<=6.0) % 10/30/23 10/30/23 10/30/23 Range/Units 19:37 21:30 23:33 WBC (3.8-10.6) k/uL RBC (3.80-5.40) m/uL Hgb (11.4-16.0) gm/dL Hct (34.0-46.0) % Neutrophils # (1.3-7.7) k/uL Lymphocytes # (1.0-4.8) k/uL Potassium (3.5-5.1) mmol/L Chloride (98-107) mmol/L Carbon Dioxide (22-30) mmol/L Glucose (74-99) mg/dL POC Glucose (mg/dL) 190 H 239 H 238 H (70-110) mg/dL Hemoglobin A1c (<=6.0) % 10/31/23 10/31/23 10/31/23 Range/Units 06:21 09:15 09:15 WBC 16.4 H (3.8-10.6) k/uL RBC 3.64 L (3.80-5.40) m/uL Hgb 10.7 L (11.4-16.0) gm/dL Hct 32.0 L (34.0-46.0) % Neutrophils # 14.7 H (1.3-7.7) k/uL Lymphocytes # 0.8 L (1.0-4.8) k/uL Potassium 3.2 L (3.5-5.1) mmol/L Chloride 109 H (98-107) mmol/L Carbon Dioxide 21 L (22-30) mmol/L Glucose 162 H (74-99) mg/dL POC Glucose (mg/dL) 230 H (70-110) mg/dL Hemoglobin A1c (<=6.0) % Assessment and Plan Assessment: Altered mental status, questionable baseline progressive dementia, rule out superimposed acute delirium/psychosis. Episodic hypoglycemia, treated per protocol. Possible isolated episode of hematemesis. Hypertensive urgency, likely exacerbated because the patient was not taking her oral antihypertensives, improved. Possible history of COPD, stable and not in exacerbation. History of CVA/TIA, with left-sided hemiparesis. History of coronary artery disease status/post CABG in 2007. History of hyperlipidemia. History of hypertension. History of hypothyroidism. History of diabetes mellitus type 2, complicated by diabetic neuropathy and diabetic retinopathy. History of left AKA. Morbid obesity, with a BMI of 42.7 kg/m. Plan: Plan dated October 31, 2023. The patient is seen today in room 373. She is on room air. No fluids. She remains very confused. She cannot give any additional history. The patient had an EGD today. There was minimal findings noted. Biopsies were done. Labs, x- rays, medications are reviewed. The patient is stable from the pulmonary status. She is currently on room air. Saturations are excellent. Will continue to follow and make recommendations along the way. Prognosis is certainly guarded. Time with Patient: Less than 30
--- NOTE | 2023-10-31 16:03 | P.PN ---
Progress Note - Text Progress Note Date: 10/31/23 88-year-old patient who follows with Dr. Ramirez. 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 . Left AKA. October 30, 2023: Patient presents with altered mental status. Patient has been screaming at night. Was sent to the ER because he is screaming more than usual at night. As per the daughter to the EMS sometimes she screams for a long time. With no other complaints. A team was called last night patient was moaning and groaning. There was some coffee-ground emesis. CT brain was unremarkable. UA was unremarkable. Neurology was consulted. Today when I talk to the patient. Able to answer simple questions. Though she is significantly hard of hearing. October 30: Spoke to the nurse. Patient be rather comfortable the whole day. Did undergo EGD with Dr. Paulino. Moderate hiatal hernia-mild gastritis and mild esophagitis.. No further intervention. Sitter has been discontinued this afternoon. Patient is significantly hard of hearing and also is has got very limited vision. This is not helpful given that patient also has underlying dementia. Patient has a climbing white count. No cough. Has been on IV ceftriaxone. Will check procalcitonin and repeat CBC. Will put the patient on Risperdal 0.5 mg at night. Stop Seroquel. Will observe for at least 24 hours more. Active Medications Acetaminophen (Acetaminophen Tab 325 Mg Tab) 650 mg PO Q6HR PRN PRN Reason: Mild Pain or Fever > 100.5 Albuterol/Ipratropium (Ipratropium-Albuterol 3 Ml Neb) 3 ml INHALATION RT-TID LARRY Last Admin: 10/31/23 12:33 Dose: Not Given Albuterol/Ipratropium (Ipratropium-Albuterol 3 Ml Neb) 3 ml INHALATION RT-TID PRN PRN Reason: Shortness Of Breath Or Wheezing Artificial Tears (Artificial Tears-Hypromellose Drops 15 Ml Btl) 1 drops BOTH EYES QID PRN PRN Reason: DRY EYES Dextrose/Water (Dextrose 50% Syringe 50 Ml) 25 ml IVP PER PROTOCOL PRN; Protocol PRN Reason: Hypoglycemia Last Admin: 10/29/23 23:48 Dose: 25 ml Dextrose/Water (Dextrose 50% Syringe 50 Ml) 50 ml IVP PER PROTOCOL PRN; Protocol PRN Reason: Hypoglycemia Lisinopril/HCTZ (Lisinopril-Hctz 20-12.5 Mg 1 Each Tab) 1 each PO BID [facility] Last Admin: 10/30/23 20:33 Dose: 1 each Hydralazine HCl (Hydralazine Hcl 20 Mg/Ml 1 Ml Vial) 10 mg IVP Q4HR PRN PRN Reason: Blood Pressure - High Last Admin: 10/29/23 15:08 Dose: 10 mg Dextrose/Sodium Chloride (Dextrose 5%-Ns Iv Soln) 1,000 mls @ 50 mls/hr IV .Q20H [facility] Last Admin: 10/31/23 04:42 Dose: Not Given Ceftriaxone Sodium 1 gm/ (Sodium Chloride) 50 mls @ 100 mls/hr IVPB Q24HR [facility]; Protocol Last Admin: 10/31/23 11:32 Dose: 100 mls/hr Insulin Aspart (Insulin Aspart (Novolog) 100 Unit/Ml Vial) 0 unit SQ ACHS [facility]; Protocol Last Admin: 10/31/23 06:33 Dose: 6 unit Levothyroxine Sodium (Levothyroxine 50 Mcg Tab) 50 mcg PO HS [facility] Last Admin: 10/30/23 20:33 Dose: 50 mcg Metoprolol Tartrate (Metoprolol Tartrate 50 Mg Tab) 50 mg PO BID [facility] Last Admin: 10/30/23 20:33 Dose: 50 mg Miscellaneous Information (Magnesium Replacement Protocol 1 Each Misc) 1 each MISCELLANE DAILY PRN; Protocol PRN Reason: Per Protocol Naloxone HCl (Naloxone 0.4 Mg/Ml 1 Ml Vial) 0.2 mg IV Q2M PRN PRN Reason: Opioid Reversal Ondansetron HCl (Ondansetron 4 Mg/2 Ml Vial) 4 mg IVP Q6H PRN PRN Reason: Nausea And Vomiting Pantoprazole Sodium (Pantoprazole 40 Mg Tablet) 40 mg PO AC-BID [facility] Last Admin: 10/31/23 06:33 Dose: 40 mg Risperidone (Risperidone 0.5 Mg Tab) 0.5 mg PO HS [facility] Past medical history to include: CAD, 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 Left above-knee amputation. Social history: Does not smoke or drink alcohol. Daughter lives with her.. assist with ADLs. Physical examination: VITAL SIGNS: 97.7, 75, 17, 136/65, 97% room air GENERAL: Lying in bed. Comfortable. HEENT: Hard of hearing EYES: Blind in the right eye. NECK: JVD not raised; masses not palpable. HEART: First and second heart sounds are normal; no edema. LUNGS: Respiratory rate normal; decreased breath sounds ABDOMEN: Soft, nontender, liver spleen not palpable, no masses palpable. PSYCH: Able to answer simple questions. Forgetful. MUSCULOSKELETAL:No Clubbing/cyanosis;muscles-grossly intact. Left above-knee amputation. Limited range of motion right shoulder Chronic ischemic changes of the toes NEUROLOGICAL: Chronic left-sided weakness. Blind in the right eye. Very hard of hearing INVESTIGATIONS, reviewed in the clinical context October 30, 2023: White count 11.4 hemoglobin 10.9 platelets 193 potassium 3.6 BUN [address] brain: Unremarkable Chest x-ray: Loop recorder. Status post CABG changes Assessment and plan: -Acute coffee-ground emesis Hold off subcu heparin. PPI. GI service not available in the hospital. Dr Jefferson LYLES [October 30] moderate hiatal hernia. Mild gastritis and esophagitis.. -Essential hypertension, better Lopressor 50 mg twice a day. Zestoretic 20/12.5 twice daily-. -chronic right shoulder dysfunction -Moderate hiatal hernia. Mild gastritis. Mild esophagitis. PPI -Coronary artery disease, prior history of bypass 2007 Lopressor, Plavix-held -Diabetes mellitus type 2 , chronically on insulin follow Accu-Cheks -Blind in the right eye, chronic -Left above-knee amputation -Hyperlipidemia Lipitor 40 mg daily at bedtime -Hypothyroidism Synthroid 50 g a day -Primary osteoarthritis Continue pain medications -Cognitive impairment. Probable dementia. Contribution from poor eyesight. Hard of hearing. Neurology following -Diabetic peripheral neuropathy -Chronic urinary incontinence Depend -DO NOT RESUSCITATE Patient put back on a diet. PPI. Resume Plavix from tomorrow. Stop Seroquel. Risperdal 0.5 mg nightly. DC sitter. Hopefully DC tomorrow.
[2023-10-31 16:20] LABS: Glucose,Whole Blood 135 mg/dL (70-110)
[2023-10-31 20:18] LABS: Glucose,Whole Blood 155 mg/dL (70-110)
[2023-10-31] MEDS: risperiDONE 0.5 MG TAB PO SCH (21:26)
[2023-10-31] MEDS: POTASSIUM CHLORIDE ER 20 MEQ TAB.ER PO STA (21:33)
[2023-11-01 06:31] LABS: Glucose,Whole Blood 136 mg/dL (70-110)
[2023-11-01 07:04] LABS: Basophils % (A) 0 %; Eosinophils # (A) 0.1 k/uL (0-0.7); Eosinophils % (A) 1 %; HCT 30.1 % (34.0-46.0); HGB 9.7 gm/dL (11.4-16.0); Lymphocytes # (A) 0.5 k/uL (1.0-4.8); Lymphocytes % (A) 5 %; MCH 28.4 pg (25.0-35.0); MCHC 32.3 g/dL (31.0-37.0); MCV 87.8 fL (80.0-100.0); Mean Platelet Volume 8.7; Monocytes # (A) 0.5 k/uL (0-1.0); Monocytes % (A) 4 %; Neutrophils # (A) 10.3 k/uL (1.3-7.7); Neutrophils % (A) 89 %; Platelet Count 211 k/uL (150-450); RBC 3.43 m/uL (3.80-5.40); RDW 14.8 % (11.5-15.5); WBC 11.5 k/uL (3.8-10.6)
[2023-11-01 07:30] LABS: African American GFR (CKD) 63 (>60 ml/min/1.73 sqM); Anion Gap 8 mmol/L; Blood Urea Nitrogen 15 mg/dL (7-17); Calcium 8.1 mg/dL (8.4-10.2); Carbon Dioxide 20 mmol/L (22-30); Chloride 109 mmol/L (98-107); Glucose 129 mg/dL (74-99); Non-African American GFR(CKD) 54 (>60 ml/min/1.73 sqM); Potassium 3.5 mmol/L (3.5-5.1); Sodium 137 mmol/L (137-145)
[2023-11-01] MEDS: CLOPIDOGREL 75 MG TAB PO SCH (09:31)
[2023-11-01 11:33] LABS: Glucose,Whole Blood 138 mg/dL (70-110)
[2023-11-01 11:43] VITALS: BP 156/76; PULSE 96; RESP 16; TEMP 98
[2023-11-01] MEDS ORDERED: NIFEdipine XL 30 MG TAB.ER.24 PO SCH (12:00)
--- NOTE | 2023-11-01 13:50 | P.DS ---
Providers Date of admission: 10/29/23 05:34 Expected date of discharge: 11/01/23 Attending physician: Elan Nagel Consults: 10/29/23 11:24 Consult Physician Routine Consulting Provider: Clarisa Elias Consult Reason/Comments: AMS, rigedity Do you want consulting provider notified?: Yes 10/29/23 12:14 Consult Physician Urgent Consulting Provider: Kilo Paulino Consult Reason/Comments: vomiting, asp? Do you want consulting provider notified?: Yes 10/29/23 12:30 Consult Physician Routine Consulting Provider: Kilo Paulino Consult Reason/Comments: egd?? Do you want consulting provider notified?: Yes 10/29/23 12:32 Consult Physician Routine Consulting Provider: Chuy Gallo Consult Reason/Comments: copd Do you want consulting provider notified?: Yes Primary care physician: [facility] Course: 88-year-old patient who follows with Dr. Ramirez. 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 . Left AKA. October 30, 2023: Patient presents with altered mental status. Patient has been screaming at night. Was sent to the ER because he is screaming more than usual at night. As per the daughter to the EMS sometimes she screams for a long time. With no other complaints. A team was called last night patient was moaning and groaning. There was some coffee-ground emesis. CT brain was unremarkable. UA was unremarkable. Neurology was consulted. Today when I talk to the patient. Able to answer simple questions. Though she is significantly hard of hearing. October 30: Spoke to the nurse. Patient be rather comfortable the whole day. Did undergo EGD with Dr. Paulnio. Moderate hiatal hernia-mild gastritis and mild esophagitis.. No further intervention. Sitter has been discontinued this afte rnoon. Patient is significantly hard of hearing and also is has got very limited vision. This is not helpful given that patient also has underlying dementia. Patient has a climbing white count. No cough. Has been on IV ceftriaxone. Will check procalcitonin and repeat CBC. Will put the patient on Risperdal 0.5 mg at night. Stop Seroquel. Will observe for at least 24 hours more. October 31: Laying in bed. Comfortable. Discontinue antibiotics. Patient accepted at [facility]. Communicated with housing case manager. Past medical history to include: CAD, 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 Left above-knee amputation. Social history: Does not smoke or drink alcohol. Daughter lives with her.. assist with ADLs. Physical examination: VITAL SIGNS: r 98, 96, 16, 156% to 6, 95% room air GENERAL: Lying in bed. Comfortable. HEENT: Hard of hearing EYES: Blind in the right eye. NECK: JVD not raised; masses not palpable. HEART: First and second heart sounds are normal; no edema. LUNGS: Respiratory rate normal; decreased breath sounds ABDOMEN: Soft, nontender, liver spleen not palpable, no masses palpable. PSYCH: Able to answer simple questions. Forgetful. MUSCULOSKELETAL:No Clubbing/cyanosis;muscles-grossly intact. Left above-knee amputation. Limited range of motion right shoulder Chronic ischemic changes of the toes NEUROLOGICAL: Chronic left-sided weakness. Blind in the right eye. Very hard of hearing INVESTIGATIONS, reviewed in the clinical context October 31: White count 9.5 hemoglobin 9.7 potassium 3.5 creatinine 0.95 procalcitonin 0.17 October 30, 2023: White count 11.4 hemoglobin 10.9 platelets 193 potassium 3.6 BUN [address] brain: Unremarkable Chest x-ray: Loop recorder. Status post CABG changes Assessment and plan: -Acute coffee-ground emesis: No further episodes Hold off subcu heparin. PPI. GI service not available in the hospital. Dr Jefferson LYLES [October 30] moderate hiatal hernia. Mild gastritis and es ophagitis.. -Essential hypertension, Lopressor 50 mg twice a day. Zestoretic 20/12.5 twice daily-. -chronic right shoulder dysfunction -Moderate hiatal hernia. Mild gastritis. Mild esophagitis. PPI -Coronary artery disease, prior history of bypass 2008 Lopressor, Plavix-resumed -Diabetes mellitus type 2 , chronically on insulin Lantus 20 units nightly. Follow Accu-Cheks -Blind in the right eye, chronic -Left above-knee amputation -Hyperlipidemia Lipitor 40 mg daily at bedtime -Hypothyroidism Synthroid 50 g a day -Primary osteoarthritis Continue pain medications -Cognitive impairment. Probable dementia. Contribution from poor eyesight. Hard of hearing. Neurology following -Diabetic peripheral neuropathy -Chronic urinary incontinence Depend -DO NOT RESUSCITATE Disposition: Rehab at [facility] Plan - Discharge Summary Discharge Rx Participant: Yes New Discharge Prescriptions: New risperiDONE [RisperDAL] 0.5 mg PO HS #3 tab Ipratropium-Albuterol Nebulize [Duoneb 0.5 mg-3 mg/3 ml Soln] 3 ml INHALATION RT-TID each Continue Atorvastatin [Lipitor] 40 mg PO HS Cranberry Fruit Extract [Cranberry] 500 mg PO DAILY Cholecalciferol [Vitamin D3 (25 Mcg = 1000 Iu)] 50 mcg PO DAILY Metoprolol Tartrate [Lopressor] 50 mg PO BID #0 Levothyroxine Sodium [Synthroid] 50 mcg PO HS Nitroglycerin Sl Tabs [Nitrostat] 0.4 mg SUBLINGUAL Q5M PRN PRN Reason: Chest Pain Acetaminophen Tab [Tylenol] 500 mg PO Q6HR PRN tab PRN Reason: Fever And/ Or Pain Pantoprazole [Protonix] 40 mg PO AC-BID #60 tab Lisinopril-Hctz 20-12.5 mg [Zestoretic 20-12.5] 1 tab PO BID #60 tab Insulin Aspart [NovoLOG Flexpen] See Protocol SQ AC-TID PRN PRN Reason: high blood sugar >150 Omeprazole [PriLOSEC] 20 mg PO DAILY Clopidogrel Bisulfate [Clopidogrel] 75 mg PO DAILY Propylene Glycol [Systane Complete] 1 drop BOTH EYES QID PRN PRN Reason: DRY EYES NIFEdipine XL [Procardia XL] 30 mg PO DAILY #0 Changed Insulin Glargine,Hum.rec.anlog [Lantus Solostar Pen] 16 units SQ HS #0 Discharge Medication List Atorvastatin [Lipitor] 40 mg PO HS 12/02/20 [History] Cholecalciferol [Vitamin D3 (25 Mcg = 1000 Iu)] 50 mcg PO DAILY 07/24/21 [History] Cranberry Fruit Extract [Cranberry] 500 mg PO DAILY 07/24/21 [History] Insulin Aspart [NovoLOG Flexpen] See Protocol SQ AC-TID PRN 12/16/21 [History] Clopidogrel Bisulfate [Clopidogrel] 75 mg PO DAILY 04/29/22 [History] Omeprazole [PriLOSEC] 20 mg PO DAILY 04/29/22 [History] Metoprolol Tartrate [Lopressor] 50 mg PO BID #0 10/11/22 [Rx] Levothyroxine Sodium [Synthroid] 50 mcg PO HS 04/27/23 [History] Nitroglycerin Sl Tabs [Nitrostat] 0.4 mg SUBLINGUAL Q5M PRN 04/27/23 [History] Propylene Glycol [Systane Complete] 1 drop BOTH EYES QID PRN 04/27/23 [History] Acetaminophen Tab [Tylenol] 500 mg PO Q6HR PRN tab 04/29/23 [Rx] Lisinopril-Hctz 20-12.5 mg [Zestoretic 20-12.5] 1 tab PO BID #60 tab 09/15/23 [Rx] NIFEdipine XL [Procardia XL] 30 mg PO DAILY #0 09/15/23 [Rx] Pantoprazole [Protonix] 40 mg PO AC-BID #60 tab 09/15/23 [Rx] Insulin Glargine,Hum.rec.anlog [Lantus Solostar Pen] 16 units SQ HS #0 11/01/23 [Rx] Ipratropium-Albuterol Nebulize [Duoneb 0.5 mg-3 mg/3 ml Soln] 3 ml INHALATION RT-TID each 11/01/23 [Rx] risperiDONE [RisperDAL] 0.5 mg PO HS #3 tab 11/01/23 [Rx] Follow up Appointment(s)/Referral(s): Esvin Ramirez DO [Primary Care Provider] - 1-2 days
--- NOTE | 2023-11-01 14:21 | P.PN ---
Subjective Progress Note Date: 11/01/23 Principal diagnosis: Mental status changes. Patient is a 88-year-old white female with a complex past medical history significant for coronary artery disease with previous CABG, CVA/TIA, hyperlipidemia, hypertension, hypothyroidism, diabetes mellitus type 2, diabetic neuropathy, left AKA COPD, among other things. Patient is currently confused and unable to volunteer any information. After reviewing the ER documentation, she presented early yesterday morning, with a chief concern of worsening confusion. She is reportedly living with her daughter, who was noted that her m entation has been worsening over the last month or so. She may have some baseline dementia. More recently, she has been screaming out at night. She seems to be fairly debilitated, her daughter has been feeding her and giving her medication. She is currently lying in bed, disheveled, screaming out no. She appears delirious. Occasionally oriented to self. She does not respond to open or close ended questioning appropriately. Brain CT taken on admission did not show any acute intracranial process. There was a remote ischemic injury of the left occipital lobe with encephalomalacia and gliosis as well as remote ischemic injury of the right cerebellum. No hemorrhage. Neurology has evaluated this patient. We were consulted for management of the patient's COPD. Patient has remained on room air. SpO2 97%. Not in any respiratory distress. Overall, COPD does not appear active. Chest x-ray does not show any acute cardiopulmonary process. No focal infiltrates or evidence of pneumonia. There are postsurgical CABG changes as well as a loop recorder. CBC unremarkable. No leukocytosis. CMP also unremarkable. LFTs not elevated. Glucose was noted to be severely low on multiple occasions. She was started on a [id number] saline at 50 MLS per hour. She was also empirically started on Rocephin. Urinalysis not concerning for UTI. Procalcitonin low at 0.06. TSH 4.14. Unclear what is causing the patient's worsening mentation at this point. She has been started on Seroquel at bedtime. She also has as needed Haldol for increased agitation/anxiety. She did reportedly have 1 isolated coffee-ground emesis. No reported adalberto bloody bowel movements or melena. General surgery was also asked to see this patient. Hemoglobin has remained stable. Blood pressure now normotensive. No need for ICU transfer at this time. Hemodynamically stable. Progress note dated October 31, 2023. The patient is seen today in room 373. The patient is on room air. No IV fluids. The patient is very confused, and no history can be obtained from the patient. She appears in no distress so, and is not having any respiratory issues. Current laboratory data includes a white count 16.4, hemoglobin 10.7, hematocrit 32, and a platelet count of 197,000. Sodium 137, potassium 3.2, chlorides 109, CO2 21, BUN 13, creatinine 0.85. Glucose is 162. Calcium 8.4. The patient underwent an EGD today. Progress note dated November 01, 2023. The patient is seen in room 373. The patient cannot give any additional history. The patient is quite confused, as she has been since admission. She is currently on room air. She is not receiving any IV fluids. Current laboratory data includes a white count 11.5, hemoglobin 9.7, hematocrit 30.1, and a normal platelet count. Sodium 137, potassium 3.5, chlorides 109, CO2 20, BUN 15, creatinine 0.95. Glucose is 138. Procalcitonin level of 0.17. Calcium is 8.1. Objective - Vital Signs Vital signs: Vital Signs Temp 98 F 11/01/23 09:30 Pulse 96 11/01/23 09:30 Resp 16 11/01/23 09:30 BP 156/76 11/01/23 09:30 Pulse Ox 95 11/01/23 09:30 FiO2 Intake & Output 10/31/23 11/01/23 11/01/23 18:59 06:59 18:59 Intake Total 100 Output Total 100 Balance 0 Intake: IV 100 Output: Urine 100 Other: Voiding Method Diaper Diaper Diaper Incontinent Incontinent Incontinent # Voids 1 1 - Exam No acute distress, very confused. Currently on room air. HEENT examination is grossly unremarkable. Mucous membranes are moist. No oral lesions. Neck supple. Full range of motion. No adenopathy thyromegaly or neck vein distention. Cardiovascular examination reveals regular rhythm rate. S1-S2 normal. No S3 or S4. No discernible murmur noted. Heart rate 96 bpm. Lungs reveal mild scattered rhonchi. No wheezes or crackles. Breath sounds equal bilaterally. Resting room air saturation 95%. Abdomen soft bowel sounds are heard. No masses or tenderness. Extremities are intact. No cyanosis clubbing or edema. Skin is without rash or lesion. Neurologic examination is brief but nonfocal. - Labs CBC & Chem 7: 11/01/23 06:38 11/01/23 06:38 Labs: Abnormal Lab Results - Last 24 Hours (Table) 10/31/23 10/31/23 11/01/23 Range/Units 16:18 20:16 06:29 WBC (3.8-10.6) k/uL RBC (3.80-5.40) m/uL Hgb (11.4-16.0) gm/dL Hct (34.0-46.0) % Neutrophils # (1.3-7.7) k/uL Lymphocytes # (1.0-4.8) k/uL Chloride (98-107) mmol/L Carbon Dioxide (22-30) mmol/L Glucose (74-99) mg/dL POC Glucose (mg/dL) 135 H 155 H 136 H (70-110) mg/dL Calcium (8.4-10.2) mg/dL Procalcitonin (0.02-0.09) ng/mL 11/01/23 11/01/23 11/01/23 Range/Units 06:38 06:38 06:38 WBC 11.5 H (3.8-10.6) k/uL RBC 3.43 L (3.80-5.40) m/uL Hgb 9.7 L (11.4-16.0) gm/dL Hct 30.1 L (34.0-46.0) % Neutrophils # 10.3 H (1.3-7.7) k/uL Lymphocytes # 0.5 L (1.0-4.8) k/uL Chloride 109 H (98-107) mmol/L Carbon Dioxide 20 L (22-30) mmol/L Glucose 129 H (74-99) mg/dL POC Glucose (mg/dL) (70-110) mg/dL Calcium 8.1 L (8.4-10.2) mg/dL Procalcitonin 0.17 H (0.02-0.09) ng/mL 11/01/23 Range/Units 11:32 WBC (3.8-10.6) k/uL RBC (3.80-5.40) m/uL Hgb (11.4-16.0) gm/dL Hct (34.0-46.0) % Neutrophils # (1.3-7.7) k/uL Lymphocytes # (1.0-4.8) k/uL Chloride (98-107) mmol/L Carbon Dioxide (22-30) mmol/L Glucose (74-99) mg/dL POC Glucose (mg/dL) 138 H (70-110) mg/dL Calcium (8.4-10.2) mg/dL Procalcitonin (0.02-0.09) ng/mL Microbiology - Last 24 Hours (Table) 10/29/23 21:19 Blood Culture - Preliminary Blood 10/29/23 16:58 Urine Culture - Final Urine,Catheterized Assessment and Plan Assessment: Altered mental status, questionable baseline progressive dementia, rule out superimposed acute delirium/psychosis. Episodic hypoglycemia, treated per protocol. Possible isolated episode of hematemesis. Hypertensive urgency, likely exacerbated because the patient was not taking her oral antihypertensives, improved. Possible history of COPD, stable and not in exacerbation. History of CVA/TIA, with left-sided hemiparesis. History of coronary artery disease status/post CABG in 2007. History of hyperlipidemia. History of hypertension. History of hypothyroidism. History of diabetes mellitus type 2, complicated by diabetic neuropathy and diabetic retinopathy. History of left AKA. Morbid obesity, with a BMI of 42.7 kg/m. Plan: Plan dated October 31, 2023. The patient is seen today in room 373. She is on room air. No fluids. She remains very confused. She cannot give any additional history. The patient had an EGD today. There was minimal findings noted. Biopsies were done. Labs, x- rays, medications are reviewed. The patient is stable from the pulmonary status. She is currently on room air. Saturations are excellent. Will continue to follow and make recommendations along the way. Prognosis is certainly guarded. Plan dated November 01, 2023. The patient is seen in room 373. The patient appears to be relatively stable although she is quite confused, and provide no additional history. Labs, x- rays, and medications are reviewed. The patient continues on room air. She is not receiving any IV fluids. The patient will likely be discharged in the near future. From the pulmonary status, the patient is very stable, and has been that way, since her admission. Time with Patient: Less than 30
--- NOTE | 2023-11-01 16:32 | P.PN ---
Subjective Progress Note Date: 11/01/23 CHIEF COMPLAINT: Vomiting, dysphagia HISTORY OF PRESENT ILLNESS: Patient status post EGD revealing antral gastritis, hiatal hernia and mild esophagitis. Patient is tolerating diet. Denies any abdominal pain. Afebrile. Medicine service planning discharge today. PHYSICAL EXAM: VITAL SIGNS: Reviewed. GENERAL: Well-developed in no acute distress. ABDOMEN: Soft. Nondistended. Nontender. ASSESSMENT: 1. Vomiting and dysphagia status post EGD with antral gastritis, hiatal hernia and esophagitis PLAN: -Patient can be discharge from surgical standpoint -Continue PPI Physician Process Developer note has been reviewed by physician. Signing provider agrees with the documented findings, assessment, and plan of care. Objective - Vital Signs Vital signs: Vital Signs Temp 98 F 11/01/23 09:30 Pulse 96 11/01/23 09:30 Resp 16 11/01/23 09:30 BP 156/76 11/01/23 09:30 Pulse Ox 95 11/01/23 09:30 FiO2 Intake & Output 10/31/23 11/01/23 11/01/23 18:59 06:59 18:59 Intake Total 100 Output Total 100 Balance 0 Intake: IV 100 Output: Urine 100 Other: Voiding Method Diaper Diaper Diaper Incontinent Incontinent Incontinent # Voids 1 1 1 - Labs CBC & Chem 7: 11/01/23 06:38 11/01/23 06:38 Labs: Abnormal Lab Results - Last 24 Hours (Table) 10/31/23 11/01/23 11/01/23 Range/Units 20:16 06:29 06:38 WBC (3.8-10.6) k/uL RBC (3.80-5.40) m/uL Hgb (11.4-16.0) gm/dL Hct (34.0-46.0) % Neutrophils # (1.3-7.7) k/uL Lymphocytes # (1.0-4.8) k/uL Chloride (98-107) mmol/L Carbon Dioxide (22-30) mmol/L Glucose (74-99) mg/dL POC Glucose (mg/dL) 155 H 136 H (70-110) mg/dL Calcium (8.4-10.2) mg/dL Procalcitonin 0.17 H (0.02-0.09) ng/mL 11/01/23 11/01/23 11/01/23 Range/Units 06:38 06:38 11:32 WBC 11.5 H (3.8-10.6) k/uL RBC 3.43 L (3.80-5.40) m/uL Hgb 9.7 L (11.4-16.0) gm/dL Hct 30.1 L (34.0-46.0) % Neutrophils # 10.3 H (1.3-7.7) k/uL Lymphocytes # 0.5 L (1.0-4.8) k/uL Chloride 109 H (98-107) mmol/L Carbon Dioxide 20 L (22-30) mmol/L Glucose 129 H (74-99) mg/dL POC Glucose (mg/dL) 138 H (70-110) mg/dL Calcium 8.1 L (8.4-10.2) mg/dL Procalcitonin (0.02-0.09) ng/mL Microbiology - Last 24 Hours (Table) 10/29/23 21:19 Blood Culture - Preliminary Blood 10/29/23 16:58 Urine Culture - Final Urine,Catheterized
== END 2023-11-01 16:10 | DRG 637 ==
LOC: EC 02:17 → 5NMEDONC 05:34 → 3SCARD 12:28
PROVIDERS: ADMIT Hospitalist; ATTEND Hospitalist
PROC: 4A10X4Z Monitoring of Central Nervous Electrical Activity, External Approach (ICD-10-PCS; 2023-10-30)
PROC: 0DD38ZX Extraction of Lower Esophagus, Via Natural or Artificial Opening Endoscopic, Diagnostic (ICD-10-PCS; 2023-10-31)
PROC: 0DB78ZX Excision of Stomach, Pylorus, Via Natural or Artificial Opening Endoscopic, Diagnostic (ICD-10-PCS; principal; 2023-10-31 07:30)
DX: E11.649 Type 2 diabetes mellitus with hypoglycemia without coma (principal); G93.41 Metabolic encephalopathy; F03.92 Unspecified dementia, unspecified severity, with psychotic disturbance; I69.354 Hemiplegia and hemiparesis following cerebral infarction affecting left non-dominant side; Z68.41 Body mass index [BMI] 40.0-44.9, adult; E66.01 Morbid (severe) obesity due to excess calories; E78.5 Hyperlipidemia, unspecified; I10 Essential (primary) hypertension; I16.0 Hypertensive urgency; E11.42 Type 2 diabetes mellitus with diabetic polyneuropathy; E11.319 Type 2 diabetes mellitus with unspecified diabetic retinopathy without macular edema; K29.70 Gastritis, unspecified, without bleeding; Z79.82 Long term (current) use of aspirin; Z91.013 Allergy to seafood; Z91.041 Radiographic dye allergy status; I25.10 Atherosclerotic heart disease of native coronary artery without angina pectoris; H54.61 Unqualified visual loss, right eye, normal vision left eye; Z79.890 Hormone replacement therapy; K21.00 Gastro-esophageal reflux disease with esophagitis, without bleeding; K44.9 Diaphragmatic hernia without obstruction or gangrene; M19.91 Primary osteoarthritis, unspecified site; H91.93 Unspecified hearing loss, bilateral; R32 Unspecified urinary incontinence; Z66 Do not resuscitate; R13.10 Dysphagia, unspecified; Z79.02 Long term (current) use of antithrombotics/antiplatelets; Z79.4 Long term (current) use of insulin; Z79.84 Long term (current) use of oral hypoglycemic drugs; Z79.899 Other long term (current) drug therapy; Z89.512 Acquired absence of left leg below knee; Z98.42 Cataract extraction status, left eye; Z98.41 Cataract extraction status, right eye; Z90.49 Acquired absence of other specified parts of digestive tract; Z89.612 Acquired absence of left leg above knee; Z90.710 Acquired absence of both cervix and uterus; Z95.1 Presence of aortocoronary bypass graft; Z95.818 Presence of other cardiac implants and grafts
CPT/HCPCS: 36415; 43239; 70450; 71045; 71046; 80048; 80053; 81001; 82150; 82607; 83036; 83690; 83735; 84145; 84443; 84484; 85025; 85610; 85730; 87040; 87086; 88305; 93005; 94640; 94760; 95816; 96374; 99285

== ENCOUNTER 2023-11-10 18:42 | Emergency (ER) | payer MEDICARE, OTHER ==
--- NOTE | 2023-11-10 19:35 | ED ---
General Adult HPI - General Chief complaint: Neuro Symptoms/Deficit Stated complaint: AMS Time Seen by Provider: 11/10/23 18:51 Source: patient, EMS, RN notes reviewed, old records reviewed Mode of arrival: EMS Limitations: no limitations - History of Present Illness Initial comments: 88-year-old female with multiple medical problems presenting from the senior living with reported right-sided weakness which began at 8 AM this morning. The patient is unable to contribute at all to the history. She has baseline dementia. She is blind in the right eye and apparently has history of left- sided stroke with left sided weakness residual. She has a left [id number] amputation she is bedbound. On my limited neuroexam at presentation the patient does appear to have good strength on the right as well as the left overall symmetric exam. This exam is limited due to noncompliance. - Related Data Home Medications Medication Instructions Recorded Confirmed Atorvastatin [Lipitor] 40 mg PO HS 12/02/20 10/29/23 Cholecalciferol [Vitamin D3 (25 50 mcg PO DAILY 07/24/21 10/29/23 Mcg = 1000 Iu)] Cranberry Fruit Extract [Cranberry] 500 mg PO DAILY 07/24/21 10/29/23 Insulin Aspart [NovoLOG Flexpen] See Protocol SQ AC-TID PRN 12/16/21 10/29/23 Clopidogrel Bisulfate [Clopidogrel] 75 mg PO DAILY 04/29/22 10/29/23 Omeprazole [PriLOSEC] 20 mg PO DAILY 04/29/22 10/29/23 Levothyroxine Sodium [Synthroid] 50 mcg PO HS 04/27/23 10/29/23 Nitroglycerin Sl Tabs [Nitrostat] 0.4 mg SUBLINGUAL Q5M PRN 04/27/23 10/29/23 Propylene Glycol [Systane Complete] 1 drop BOTH EYES QID PRN 04/27/23 10/29/23 Previous Rx's Medication Instructions Recorded Metoprolol Tartrate [Lopressor] 50 mg PO BID #0 10/11/22 Acetaminophen Tab [Tylenol] 500 mg PO Q6HR PRN tab 04/29/23 Lisinopril-Hctz 20-12.5 mg 1 tab PO BID #60 tab 09/15/23 [Zestoretic 20-12.5] NIFEdipine XL [Procardia XL] 30 mg PO DAILY #0 09/15/23 Pantoprazole [Protonix] 40 mg PO AC-BID #60 tab 09/15/23 Insulin Glargine,Hum.rec.anlog 16 units SQ HS #0 11/01/23 [Lantus Solostar Pen] Ipratropium-Albuterol Nebulize 3 ml INHALATION RT-TID each 11/01/23 [Duoneb 0.5 mg-3 mg/3 ml Soln] risperiDONE [RisperDAL] 0.5 mg PO HS #3 tab 11/01/23 Allergies Allergy/AdvReac Type Severity Reaction Status Date / Time aspirin Allergy Rash/Hives Verified 11/10/23 19:11 fish derived Allergy Rash/Hives Verified 11/10/23 19:11 Iodinated Contrast Media Allergy Rash/Hives Verified 11/10/23 19:11 [Iodinated Contrast Media - IV Dye] Iodine and Iodide Containing Allergy Rash/Hives Verified 11/10/23 19:11 Produc shellfish derived [Shellfish] Allergy Rash/Hives Verified 11/10/23 19:11 sulfamethoxazole Allergy Itching Verified 11/10/23 19:11 [From Bactrim] trimethoprim [From Bactrim] Allergy Itching Verified 11/10/23 19:11 Review of Systems ROS Statement: Those systems with pertinent positive or pertinent negative responses have been documented in the HPI. ROS Other: All systems not noted in ROS Statement are negative. 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, dysphagia,esophageal strictures with dilation, hiatal hernia, L eye diabetic retinopathy/R eye blindness, bilateral [place], UTIS/urinary leakage, past bilateral feet sores/osteomylitis, generalized pain, bilateral carpal tunnel syndrome, vertigo, hypothyroid, anemia History of Any Multi-Drug Resistant Organisms: MRSA Date of last positivie culture/infection: 10/05/22 MDRO Source:: Urine Past Surgical History: Bladder Surgery, Cholecystectomy, Coronary Bypass/CABG, Heart Catheterization, Hysterectomy Additional Past Surgical History / Comment(s): 2007 CABG 4 vessel, EGDs with dilations, colonoscopies, cataract removal, D&C, bladder suspension, PICC, loop recorder, toe amputation may 2021, left BKA Past Anesthesia/Blood Transfusion Reactions: Motion Sickness, Postoperative Nausea & Vomiting (PONV) Past Psychological History: No Psychological Hx Reported Smoking Status: Never smoker Past Alcohol Use History: None Reported Past Drug Use History: None Reported - Past Family History Father History Unknown: Yes Family Medical History: Liver Disease Additional Family Medical History / Comment(s): Father of cirrhosis. He was a drinker. Mother History Unknown: Yes Family Medical History: Unable to Obtain Additional Family Medical History / Comment(s): Pt states she does not know her mother's medical history, but knows she at the age of 62 yrs.. Son(s) Family Medical History: Unable to Obtain, Renal Disease Daughter(s) History Unknown: Yes Family Medical History: Cancer General Exam Limitations: no limitations General appearance: alert Eye exam: Absent: normal appearance Neck exam: Present: normal inspection. Absent: tenderness, meningismus Respiratory exam: Present: normal lung sounds bilaterally. Absent: respiratory distress, wheezes Cardiovascular Exam: Present: regular rate, normal rhythm GI/Abdominal exam: Present: soft. Absent: distended, tenderness Neurological exam: Present: alert. Absent: oriented X3 Skin exam: Present: warm, dry, intact Course Vital Signs 11/10/23 18:57 Temperature 97.6 F Pulse Rate 73 Respiratory 18 Rate Blood Pressure 140/92 O2 Sat by Pulse 98 Oximetry - Reevaluation(s) Reevaluation #1: 11/10/23 19:32 I did confirm with Dr. Nagel who is familiar with this patient that she is at baseline. Medical Decision Making - Medical Decision Making Was pt. sent in by a medical professional or institution (, PA, WARP TIER, urgent care, hospital, or senior living...) When possible be specific @ -No Did you speak to anyone other than the patient for history (EMS, parent, family, police, friend...)? What history was obtained from this source @ -No Did you review nursing and triage notes (agree or disagree)? Why? @ -I reviewed and agree with nursing and triage notes Were old charts reviewed (outside hosp., previous admission, EMS record, old EKG, old radiological studies, urgent care reports/EKG's, senior living records)? Report findings @ -No old charts were reviewed M differential altered mental status. EKG interpreted by me (3pts min.). @ -As above X-rays interpreted by me (1pt min.). @ -None done CT interpreted by me (1pt min.). @ -None done U/S interpreted by me (1pt. min.). @ -None done What testing was considered but not performed or refused? (CT, X-rays, U/S, labs)? Why? @ -None What meds were considered but not given or refused? Why? @ -None Did you discuss the management of the patient with other professionals (professionals i.e. , PA, WARP TIER, lab, RT, psych nurse, social science analyst, business support professional, teacher, contracting officer, assistant case manager)? Give summary @ -Dr. Nagel Was smoking cessation discussed for >3mins.? @ -No Was critical care preformed (if so, how long)? @ -No Were there social determinants of health that impacted care today? How? (Homelessness, low income, unemployed, alcoholism, drug addiction, transportation, low edu. Level, literacy, decrease access to med. care, long-term, rehab)? @ -No Was there de-escalation of care discussed even if they declined (Discuss DNR or withdrawal of care, Hospice)? DNR status @ -No What co-morbidities impacted this encounter? (DM, HTN, Smoking, COPD, CAD, Cancer, CVA, ARF, Chemo, Hep., AIDS, mental health diagnosis, sleep apnea, morbid obesity)? @ -None Was patient admitted / discharged? Hospital course, mention meds given and route, prescriptions, significant lab abnormalities, going to OR and other pertinent info. @88-year-old female this lady has multiple medical problems and baseline dementia, difficulty communicating, history of stroke affecting the left side of her body. There was reported weakness on the right. My limited assessment of this patient there does not appear to be any worsening weakness, no facial droop. Vital signs are stable. Patient is in sinus rhythm. I do feel she can be discharged back to the senior living where she can be monitored. No acute intervention needed at this time. Undiagnosed new problem with uncertain prognosis? @ -No Drug Therapy requiring intensive monitoring for toxicity (Heparin, Nitro, Insulin, Cardizem)? @ -No Were any procedures done? @ -No Diagnosis/symptom? @Baseline dementia and debility Acute, or Chronic, or Acute on Chronic? @Chronic Uncomplicated (without systemic symptoms) or Complicated (systemic symptoms)? @ -Default Side effects of treatment? @ -No Exacerbation, Progression, or Severe Exacerbation? @ -No Poses a threat to life or bodily function? How? (Chest pain, [place], OR, pneumonia, PE, COPD, DKA, ARF, appy, cholecystitis, CVA, Diverticulitis, Homicidal, Suicidal, threat to staff... and all critical care pts) @Yes, poor prognosis, end-of-life care Disposition Clinical Impression: Altered mental status Disposition: HOME SELF-CARE Condition: Poor Instructions (If sedation given, give patient instructions): Altered Mental Status (ED) Is patient prescribed a controlled substance at d/c from ED?: No Referrals: Esvin Ramirez DO [Primary Care Provider] - 1-2 days Time of Disposition: 19:35
[2023-11-10 21:18] VITALS: BP 150/62; PULSE 60; RESP 16; TEMP 98.7
== END 2023-11-10 21:20 | disposition home or self-care (01) ==
LOC: EC 18:42
DX: R41.82 Altered mental status, unspecified (principal); F03.90 Unspecified dementia, unspecified severity, without behavioral disturbance, psychotic disturbance, mood disturbance, and anxiety; R53.81 Other malaise; Z88.1 Allergy status to other antibiotic agents; Z88.2 Allergy status to sulfonamides; Z88.6 Allergy status to analgesic agent; Z88.8 Allergy status to other drugs, medicaments and biological substances; Z91.013 Allergy to seafood; Z91.041 Radiographic dye allergy status
CPT/HCPCS: 93005; 99285